=== PATIENT | female | born 1975 | race Caucasian/White ===

== ENCOUNTER 2023-02-13 11:05 | Outpatient (OUT) | payer MEDICAID, SELFPAY ==
--- NOTE | 2023-02-13 12:16 | PM.CN ---
Consult Note: HPI Data of Consult Patient: new to practice Consult date: 02/13/23 Requesting Physician: Najma Richardson MD Primary Care Provider: SHWETA BARNES Consult Narrative Reason for consult: Right knee pain, low back pain Narrative: This is a pleasant 47-year-old female who presents for evaluation. She has increasing pain throughout her right knee, as well as her low back. She is engaged in physical therapy and in provider Aracelis home exercises, though this does not provide much relief of either of these pains. She had an x-ray of her right knee done recently, which showed osteoarthritis, but there is no imaging available of her low back. She currently utilizes tramadol 50 mg twice a day when necessary. Which provided some relief. She was not service medications cilostazol or bladder control. cc:: CC: Najma Richardson MD Review of Systems ROS Status of ROS 10 or more systems reviewed and unremarkable except as noted in history and below Exam Back & Pelvis Other: tenderness to palpation of the lumbar spine and paraspinal muscle trigger. Pain is elicited with flexion, extension, and lateral rotation of lumbar spine. Facet loading maneuvers are positive bilaterally. Coordination remains intact. Gait is nonantalgic. Extremity Other: tenderness to palpation over the right knee. Pain is elicited with flexion and extension. Mild crepitus noted throughout. No ligamentous instability noted. Assessment and Plan Assessment and Plan (1) Osteoarthritis of right knee: (2) Lumbago: Plan this is a pleasant 47-year-old female who presents for evaluation. She notes increasing pain throughout her low back and right knee, as stated above. She had general injections approximately ten years ago, which she states provided significant relief for several years. She had a cortisone injection about six months ago, which provided temporary relief. At this point, it is prudent to attempt a Synvisc-1 injection for further relief. She is in agreement with this plan. In terms of her low back pain, I would like her to undergo an x-ray of the lumbar spine and sacrum. She is understanding. Medications were reviewed. I agreed to refill her tramadol 50 mg twice a day when necessary. We will obtain a urine drug screen today. She expressed understanding. She will follow up after the imaging is complete.
== END 2023-02-13 11:06 | disposition home or self-care (01) ==
LOC: PM 11:06
PROVIDERS: PCP Physician Assistant; Visit Provider Anesthesiology
DX: M54.50 Low back pain, unspecified (principal); M17.11 Unilateral primary osteoarthritis, right knee
CPT/HCPCS: G0463

== ENCOUNTER 2023-02-15 12:53 | Outpatient (OUT) | payer MEDICAID, SELFPAY ==
--- NOTE | 2023-02-15 | XR_ITS ---
The [address] [address] Patient Name: NAYA ARRIAGA MRN: [id number] date: 1975 Sex: F Assigned Patient Location: [facility] Current Patient Location: [facility] Accession/Order Number: [id number] Exam Date: 02/15/2023 13:15 Report Date: 02/15/2023 20:45 At the request of: GT IRELANDEDRAJOSH Procedure: XR sacrum coccyx min 2V EXAMINATION: XR lumbar spine 6V w bending, XR sacrum coccyx min 2V HISTORY: Lumbar spondylosis COMPARISON: No relevant comparison available. FINDINGS: BONES: Normal alignment on the lateral projection with no acute fracture or spondylolisthesis. Mild levocurvature centered at L4. Mild degenerative spondylosis. Bvvg-qg-lscdsodp facet osteoarthropathy DISC SPACES: Normal. No significant disc height narrowing, subluxation, or endplate abnormality. PARASPINOUS: Negative. No paraspinous abnormality is seen. OTHER: Negative. IMPRESSION: Mild levocurvature No transient spondylolisthesis Electronically authenticated by: EM LÓPEZ Date: 02/15/2023 20:45
--- NOTE | 2023-02-15 | XR_ITS ---
The [address] [address] Patient Name: NAYA ARRIAGA MRN: [id number] date: 1975 Sex: F Assigned Patient Location: [facility] Current Patient Location: [facility] Accession/Order Number: [id number] Exam Date: 02/15/2023 13:15 Report Date: 02/15/2023 20:45 At the request of: GT COOPERRAJOSH Procedure: XR lumbar spine 6V w bending EXAMINATION: XR lumbar spine 6V w bending, XR sacrum coccyx min 2V HISTORY: Lumbar spondylosis COMPARISON: No relevant comparison available. FINDINGS: BONES: Normal alignment on the lateral projection with no acute fracture or spondylolisthesis. Mild levocurvature centered at L4. Mild degenerative spondylosis. Iikz-or-syfhxqcw facet osteoarthropathy DISC SPACES: Normal. No significant disc height narrowing, subluxation, or endplate abnormality. PARASPINOUS: Negative. No paraspinous abnormality is seen. OTHER: Negative. IMPRESSION: Mild levocurvature No transient spondylolisthesis Electronically authenticated by: EM LÓPEZ Date: 02/15/2023 20:45
== END 2023-02-15 12:54 | disposition home or self-care (01) ==
LOC: RAD 12:55
PROVIDERS: PCP Physician Assistant
DX: M47.816 Spondylosis without myelopathy or radiculopathy, lumbar region (principal)
CPT/HCPCS: 72114; 72220

== ENCOUNTER 2023-02-27 10:06 | Outpatient (OUT) | payer MEDICAID, SELFPAY ==
--- NOTE | 2023-02-27 11:19 | P.CN_ITS ---
Consult Note: HPI Data of Consult Patient: known to practice within the last 3 years Consult date: 02/27/23 Requesting Physician: Najma Richardson MD Primary Care Provider: SHWETA BARNES Consult Narrative Reason for consult: low back pain, right knee pain Narrative: this is a pleasant 47-year-old female who presents for assessment. She has persistence of her axial low back pain, as well as her right knee pain. She recently underwent lumbar x-rays, which showed moderate facet arthropathy in the lower lumbar spine. She notes that her pain is worsened with standing and walking, and this has been ongoing for greater than three months. She utilizes a variety of medications, including Tylenol and tramadol, with limited relief. she continues in provider directed home exercises, which have not helped. She otherwise denies adverse medication side effects or loss of bowel or bladder control. cc:: CC: Najma Richardson MD Review of Systems ROS Status of ROS 10 or more systems reviewed and unremarkable except as noted in history and below PFSH PFS Medical History Surgical History Meds Home Medications and Allergies Home Medications Medication Instructions Recorded Confirmed Type acetaminophen 650 mg 650 mg PO Q12H PRN pain 02/13/23 02/13/23 History tablet,extended release (Tylenol Arthritis Pain) albuterol sulfate 90 mcg/actuation 1 inh inhalation QID PRN shortness 02/13/23 02/13/23 History aerosol inhaler of breath or wheezing aripiprazole 400 mg suspension, 400 mg IM Q28D 02/13/23 02/13/23 History extended rel.intramuscular syringe ([address]) buspirone 30 mg tablet 30 mg PO BID 02/13/23 02/13/23 History hydroxyzine HCl 25 mg tablet 25 mg PO BID 02/13/23 02/13/23 History lamotrigine 300 mg tablet,extended 300 mg PO DAILY 02/13/23 02/13/23 History release 24 hr lumateperone 10.5 mg capsule 10.5 mg PO DAILY 02/13/23 02/13/23 History (Caplyta) tramadol 50 mg tablet 50 mg PO BID PRN pain 02/13/23 02/13/23 History trazodone 300 mg tablet 300 mg PO DAILY PRN sleep 02/13/23 02/13/23 History venlafaxine 100 mg tablet 300 mg PO DAILY 02/13/23 02/13/23 History zolpidem 5 mg tablet (Ambien) 5 mg PO PRN sleep 02/13/23 History Allergies Allergy/AdvReac Type Severity Reaction Status Date / Time erythromycin base Allergy Unknown Verified 02/13/23 13:52 [From E-Mycin] Penicillins Allergy Unknown Verified 02/13/23 13:52 shellfish derived Allergy Unknown Verified 02/13/23 13:52 Sulfa (Sulfonamide Allergy Unknown Verified 02/13/23 13:52 Antibiotics) Exam Constitutional Common normals: no apparent distress, oriented x3 and healthy appearing Respiratory Common normals: normal respiratory effort Effort & inspection: able to speak in complete sentences Back & Pelvis Other: tenderness to palpation throughout the lumbar spine and paraspinal musculature. Pain is elicited with flexion, extension, and lateral rotation of the lumbar spine. Faceet loading maneuvers are positive bilaterally. Coordination remains intact. Gait remains nonantalgic. Extremity Common normals: normal to inspection Other: tenderness to palpation throughout the right knee. Pain is elicited with flexion and extension of the right knee. Crepitus appreciated throughout the right knee. Neuro Common normals: oriented x3, CN's II-XII intact bilaterally and no focal motor deficits Psych Common normals: mental status grossly normal and cooperative Assessment and Plan Assessment and Plan (1) Osteoarthritis of right knee: (2) Lumbar spondylosis: Plan this is a pleasant 47-year-old female who presents for assessment. She continues to have axial low back pain, as well as right knee pain. In terms of her right knee pain, we will proceed with the Synvisc-1 injection as planned before. She is in agreement with this plan. Her lumbar imaging was reviewed, as noted above. Given her persistent symptomatology, coupled with her failure to respond to conservative measures for greater than a three month period of time, it is prudent to attempt a diagnostic bilateral L4?5, L5-S1 medial branch block fluo roscopically guided with the intention of proceeding to radiofrequency ablation. at this point. Medications were reviewed, and no changes were made at this time. She will be deemed a non-opioid candidate given her unexplained oxymorphone and her urine drug screen. She'll follow up after the procedure is complete. Procedure: Right knee injection Medications: Synvisc-1 I explained the details of the procedure to the patient including the risks, benefits and alternatives. We had an informed discussion and the patient verbalized understanding and signed the consent form. All questions were answered appropriately.? A time out was performed.? After obtaining a comfortable seated position, the right knee was prepped with alcohol x3. A syringe containing the above medication was attached to a 22 guage, 1.5 inch needle under strict aseptic technique. The lateral tibial plateau was palpated.? The needle was then advanced through the subcutaneous tissue in a medial and superior direction towards the joint space.? The contents of the syringe were gently injected without any resistance. The needle was removed and pressure was applied to the injection site to decrease the incidence of ecchymosis and hematoma formation.? A sterile bandage was applied.
== END 2023-02-27 10:07 | disposition home or self-care (01) ==
PROVIDERS: PCP Physician Assistant; Visit Provider Anesthesiology
DX: M17.11 Unilateral primary osteoarthritis, right knee (principal); M47.816 Spondylosis without myelopathy or radiculopathy, lumbar region
CPT/HCPCS: 20610

== ENCOUNTER 2023-04-03 08:06 | Day surgery (SDC) | payer MEDICAID, SELFPAY ==
[2023-04-03 08:26] LABS: HCG Qualitative NEGATIVE (NEGATIVE)
[2023-04-03 08:34] VITALS: BP 120/87; PULSE 87; RESP 16; TEMP 36.3; O2SAT 97
[2023-04-03] MEDS: LIDOCAINE HCL 2% PF 100 MG/5 ML VIAL INJ (09:44)
[2023-04-03] MEDS: TRIAMCINOLONE ACETONIDE 40 MG/ML VIAL INJ (09:44)
[2023-04-03] MEDS: BUPIVACAINE HCL 0.25% PF 25 MG/10 ML VIAL INJ (09:44)
--- NOTE | 2023-04-03 09:48 | W.PM.PROCNOT ---
Date of procedure: 04/03/23 Pre-op diagnosis: Lumbosacral spondylosis Post-op diagnosis: same as pre-op Procedure: Procedure: Bilateral L3, 4, 5 medial branch block Medications: Bupivacaine 0.25% 4cc The patient was seen and examined in the preoperative holding area.? An informed consent was obtained and placed on the chart.? The patient was brought to the medical procedure unit and placed in the prone position.? A timeout was completed verifying correct patient, procedure site, positioning, plan, and special equipment.? Using aseptic technique, the needle was placed at left L3. Under direct fluoroscopic visualization a Quincke-tipped spinal needle was advanced to the junction of the superior articulating process with the transverse process at the designated medial branch segment.? Preceded by negative aspiration, the above-mentioned injectate was placed in 1 mL aliquots.? The procedure was repeated at left L4, 5.? The needle was removed and insertion site was covered. The same procedure, at the same levels, was completed on the right side. The patient was taken to the postprocedural recovery area and monitored for an appropriate length of time before found suitable for discharge in the company of a responsible adult. Anesthesia: None Surgeon: Najma Richardson Pathology: none sent Condition: stable Disposition: no change
[2023-04-03 13:40] VITALS: BP 110/55; BP 128/79; PULSE 82; PULSE 83; RESP 20; O2SAT 86; O2SAT 90
== END 2023-04-03 09:52 | disposition home or self-care (01) ==
PROVIDERS: PCP Physician Assistant; Visit Provider Anesthesiology
DX: M47.817 Spondylosis without myelopathy or radiculopathy, lumbosacral region (principal)
CPT/HCPCS: 36415; 64493; 64494; 84703

== ENCOUNTER 2023-04-12 13:44 | Outpatient (OUT) | payer MEDICAID, SELFPAY ==
--- NOTE | 2023-04-12 13:59 | PM.CN ---
Consult Note: HPI Data of Consult Patient: known to practice within the last 3 years Requesting Physician: Simona Szymanski NP Primary Care Provider: SHWETA BARNES Consult Narrative Reason for consult: bilateral L3/4 L4/5 MBB #1 f/u Narrative: Marilee Uribe is a pleasant 47 year old female who follows for chronic low back pain and right knee pain. Today pain is 5/10. Patient recently underweant bilateral L3/4 L4/5 MBB with 90% pain relief, with increased range of motion, decreased pain with provocative maneuvers, and increased ability to perform ADLs. Patient reports improvement in ability to sit for longer periods of time without pain and able to ambulate further after MBB #1. Patient would like to proceed with bilateral L3/4 L4/5 MBB #2 working towards thermal RFA cc:: CC: Simona Szymanski NP Review of Systems ROS Status of ROS 10 or more systems reviewed and unremarkable except as noted in history and below Musculoskeletal Reports: back pain and joint pain (right knee) PFSH PFSH Medical History Surgical History Meds Home Medications and Allergies Home Medications Medication Instructions Recorded Confirmed Type acetaminophen 650 mg 650 mg PO Q12H PRN pain 02/13/23 04/03/23 History tablet,extended release (Tylenol Arthritis Pain) albuterol sulfate 90 mcg/actuation 1 inh inhalation QID PRN shortness 02/13/23 04/03/23 History aerosol inhaler of breath or wheezing aripiprazole 400 mg suspension, 400 mg IM Q28D 02/13/23 04/03/23 History extended rel.intramuscular syringe ([address]) buspirone 30 mg tablet 30 mg PO BID 02/13/23 04/03/23 History hydroxyzine HCl 25 mg tablet 25 mg PO BID 02/13/23 04/03/23 History lamotrigine 300 mg tablet,extended 300 mg PO DAILY 02/13/23 04/03/23 History release 24 hr lumateperone 10.5 mg capsule 10.5 mg PO DAILY 02/13/23 04/03/23 History (Caplyta) tramadol 50 mg tablet 50 mg PO BID PRN pain 02/13/23 04/03/23 History trazodone 300 mg tablet 300 mg PO DAILY PRN sleep 02/13/23 04/03/23 History venlafaxine 100 mg tablet 300 mg PO DAILY 02/13/23 04/03/23 History zolpidem 5 mg tablet (Ambien) 5 mg PO PRN sleep 02/13/23 History Allergies Allergy/AdvReac Type Severity Reaction Status Date / Time erythromycin base Allergy Unknown Verified 02/13/23 13:52 [From E-Mycin] Penicillins Allergy Unknown Verified 02/13/23 13:52 shellfish derived Allergy Unknown Verified 02/13/23 13:52 Sulfa (Sulfonamide Allergy Unknown Verified 02/13/23 13:52 Antibiotics) Exam Constitutional Documenting provider has reviewed patient's vital signs: yes Common normals: no apparent distress, oriented x3, healthy appearing, alert and well nourished General appearance: cooperative Nutritional appearance: obese HENMT Common normals: normocephalic, hearing grossly normal bilaterally and moist oral mucous membranes Head and scalp: normocephalic Eye Common normals: PERRL Pupil: PERRL Neck & C-Spine Common normals: full ROM General: normal visual inspection Chest Common normals: inspection of chest normal Respiratory Common normals: normal respiratory effort, no retractions and no use of accessory muscles Back & Pelvis Common normals: thoracic and lumbar spine normal to inspection and straight leg raise negative bilaterally Lumbar spine/lower back: ROM limited, pain with ROM, lumbar spinal tenderness and paraspinal muscle tenderness Other: positive bilateral facet loading Neuro Common normals: oriented x3, CN's II-XII intact bilaterally, moves all extremities, no focal motor deficits, no sensory deficits noted and deep tendon reflexes 2+ bilaterally Sensorium/orientation: alert Motor exam: strength 5/5 throughout and no movement abnormalities noted Psych Common normals: mental status grossly normal, thought process normal, cooperative, affect normal, speech normal and activity/motor behavior normal Speech: normal speech Thought process: normal thought process Results Additional Findings Additional findings: I have checked an [place] report on this patient today and there are no aberrancies noted in the prescribing history.?? A drug screen was completed and reviewed within the last year, and if there has not been a drug screen completed we ordered one today to monitor higher risk, state monitored pain medication use. As part of providing excellent, safe, comprehensive care, the following was completed at our patient's visit: 1. A medication reconciliation and review to ensure accurate knowledge of current/active medications, including asking our patients to inform us about any [id number] medications or herbal remedies/nutritional supplements/alternative remedies. 2. A review to specifically ensure our patients have had annual screening for: elevated body mass index (BMI), tobacco use, screening for depression, and screening for unhealthy alcohol use. When screening is concerning, patients are provided with education and the specific recommendation to discuss the concerning health issue and treatment options with their primary care provider. The patient has had over 3 months of moderate to severe low back pain with functional impairment and inadequate response to conservative care including NSAIDS (unless there are contraindication such as concurrent blood thinners), multiple oral or topical pain medications, and home exercise program/physical therapy. DENEEN 44% today with pain with ADLs, pain lifting heavy weights, pain prevents her from walking more than 100 yards, pain prevents her from standing for more than 30 mins, pain restricting social life and travel. Assessment and Plan Assessment and Plan (1) Lumbar spondylosis: Assessment and Plan: continues to have predominately axial low back pain (2) Osteoarthritis of right knee: (3) Muscle spasm: Plan The patient had significant relief of over 90%, with increased range of motion, decreased pain with provocative maneuvers, and increased ability to perform ADLs after diagnostic bilateral L3/4 L4/5 block #1 Proceed with #2 diagnostic block at bilateral L3/4 L4/5 under fluoroscopy working towards thermal RFA
== END 2023-04-12 13:45 | disposition home or self-care (01) ==
PROVIDERS: PCP Physician Assistant; Visit Provider Nurse Practitioner
DX: M47.816 Spondylosis without myelopathy or radiculopathy, lumbar region (principal); M62.838 Other muscle spasm; M17.11 Unilateral primary osteoarthritis, right knee
CPT/HCPCS: G0463

== ENCOUNTER 2023-04-24 17:34 | Emergency (ER) | payer MEDICAID, SELFPAY ==
[2023-04-24 17:36] VITALS: BP 163/98; PULSE 91; RESP 18; TEMP 36.6; O2SAT 96; BMI 58.5
--- NOTE | 2023-04-24 17:43 | PC.NURSE ---
Pt thinks she slept on neck wrong a few days ago. States pain is worse today traveling from left to right side of neck and into left ear now.
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
[2023-04-24] MEDS: KETOROLAC TROMETHAMINE 60 MG/2 ML VIAL IM (18:16)
[2023-04-24] MEDS: PREDNISONE 20 MG TABLET 60 MG PO (18:17)
[2023-04-24] MEDS: ORPHENADRINE 60 MG/ 2 ML VIAL IM (18:17)
== END 2023-04-24 18:28 | disposition home or self-care (01) ==
PROVIDERS: Emergency Provider Emergency Medicine Emergency Medical Services; PCP Physician Assistant
DX: M62.838 Other muscle spasm (principal); M43.6 Torticollis; Z79.899 Other long term (current) drug therapy
CPT/HCPCS: 96372; 99284

== ENCOUNTER 2023-05-01 08:54 | Day surgery (SDC) | payer MEDICAID, SELFPAY ==
[2023-05-01 09:09] VITALS: BP 132/89; PULSE 89; RESP 16; TEMP 36.4; O2SAT 96
[2023-05-01 09:58] VITALS: BP 152/68; PULSE 83; RESP 18; O2SAT 94
[2023-05-01] MEDS: BUPIVACAINE HCL 0.25% PF 25 MG/10 ML VIAL INJ (10:00)
[2023-05-01] MEDS: TRIAMCINOLONE ACETONIDE 40 MG/ML VIAL INJ (10:01)
[2023-05-01] MEDS: LIDOCAINE HCL 2% PF 100 MG/5 ML VIAL INJ (10:01)
--- NOTE | 2023-05-01 10:06 | W.PM.PROCNOT ---
Date of procedure: 05/01/23 Pre-op diagnosis: Lumbar spondylosis Post-op diagnosis: same as pre-op Procedure: Procedure: Bilateral L3-4, L4-5 medial branch block Medications: Bupivacaine 0.25% 4cc The patient was seen and examined in the preoperative holding area.? An informed consent was obtained and placed on the chart.? The patient was brought to the medical procedure unit and placed in the prone position.? A timeout was completed verifying correct patient, procedure site, positioning, plan, and special equipment.? Using aseptic technique, the needle was placed at left L3. Under direct fluoroscopic visualization a Quincke-tipped spinal needle was advanced to the junction of the superior articulating process with the transverse process at the designated medial branch segment.? Preceded by negative aspiration, the above-mentioned injectate was placed in 1 mL aliquots.? The procedure was repeated at left L4, 5.? The needle was removed and insertion site was covered. The same procedure, at the same levels, was completed on the right side. The patient was taken to the postprocedural recovery area and monitored for an appropriate length of time before found suitable for discharge in the company of a responsible adult. Anesthesia: Local Surgeon: Najma Richardson Pathology: none sent Condition: stable Disposition: no change
[2023-05-02 10:57] VITALS: BP 144/65; PULSE 83; RESP 18; O2SAT 91
== END 2023-05-01 10:07 | disposition home or self-care (01) ==
LOC: SURGOUT 08:55
PROVIDERS: PCP Physician Assistant; Visit Provider Anesthesiology
DX: M47.816 Spondylosis without myelopathy or radiculopathy, lumbar region (principal)
CPT/HCPCS: 64493; 64494

== ENCOUNTER 2023-05-11 13:16 | Outpatient (OUT) | payer MEDICAID, SELFPAY ==
--- NOTE | 2023-05-11 10:23 | P.CN_ITS ---
Consult Note: HPI Data of Consult Patient: known to practice within the last 3 years Requesting Physician: Simona Szymanski NP Primary Care Provider: SHWETA BARNES Consult Narrative Reason for consult: MBB #2 f/u Narrative: Marilee Uribe is a pleasant 47 year old female who follows for chronic low back pain and right knee pain. Today pain is 7/10. Patient recently underwent bilateral L3/4 L4/5 MBB #2 with >80% pain relief, with increased range of motion, decreased pain with provocative maneuvers, and increased ability to perform ADLs. Patient reports improvement in ability to sit for longer periods of time without pain and able to ambulate further after MBB #1 and MBB #2. Patient would like to proceed with bilateral L3/4 L4/5 thermal RFA under fluoroscopy. cc:: CC: Simona Szymanski NP Review of Systems ROS0 Status of ROS 10 or more systems reviewed and unremarkable except as noted in history and below Musculoskeletal Reports: back pain PFSH PFSH Medical History Surgical History Meds Home Medications and Allergies Home Medications Medication Instructions Recorded Confirmed Type acetaminophen 650 mg 650 mg PO Q12H PRN pain 02/13/23 05/01/23 History tablet,extended release (Tylenol Arthritis Pain) albuterol sulfate 90 mcg/actuation 1 inh inhalation QID PRN shortness 02/13/23 05/01/23 History aerosol inhaler of breath or wheezing aripiprazole 400 mg suspension, 400 mg IM Q28D 02/13/23 05/01/23 History extended rel.intramuscular syringe ([address]) buspirone 30 mg tablet 30 mg PO BID 02/13/23 05/01/23 History hydroxyzine HCl 25 mg tablet 25 mg PO BID 02/13/23 05/01/23 History lamotrigine 300 mg tablet,extended 300 mg PO DAILY 02/13/23 05/01/23 History release 24 hr lumateperone 10.5 mg capsule 10.5 mg PO DAILY 02/13/23 05/01/23 History (Caplyta) tramadol 50 mg tablet 50 mg PO BID PRN pain 02/13/23 05/01/23 History trazodone 300 mg tablet 300 mg PO DAILY PRN sleep 02/13/23 05/01/23 History venlafaxine 100 mg tablet 300 mg PO DAILY 02/13/23 05/01/23 History zolpidem 5 mg tablet (Ambien) 5 mg PO PRN sleep 02/13/23 History tizanidine 4 mg tablet 4 mg PO BEDTIME 04/18/23 05/01/23 History prednisone 20 mg tablet mg 05/01/23 History Allergies Allergy/AdvReac Type Severity Reaction Status Date / Time erythromycin base Allergy Unknown Verified 05/01/23 09:05 [From E-Mycin] Penicillins Allergy Unknown Verified 05/01/23 09:05 shellfish derived Allergy Unknown Verified 05/01/23 09:05 Sulfa (Sulfonamide Allergy Unknown Verified 05/01/23 09:05 Antibiotics) Exam Constitutional Documenting provider has reviewed patient's vital signs: yes Common normals: no apparent distress, oriented x3, healthy appearing, alert and well nourished General appearance: cooperative Nutritional appearance: obese HENMT Common normals: normocephalic, hearing grossly normal bilaterally and moist oral mucous membranes Head and scalp: normocephalic Eye Common normals: PERRL Pupil: PERRL Neck & C-Spine Common normals: full ROM General: normal visual inspection Chest Common normals: inspection of chest normal Respiratory Common normals: normal respiratory effort, no retractions and no use of accessory muscles Back & Pelvis Common normals: thoracic and lumbar spine normal to inspection and straight leg raise negative bilaterally Lumbar spine/lower back: ROM limited, pain with ROM, lumbar spinal tenderness and paraspinal muscle tenderness Other: positive bilateral facet loading no radiculopathy predominately axial back pain Neuro Common normals: oriented x3, CN's II-XII intact bilaterally, moves all extremities, no focal motor deficits, no sensory deficits noted and deep tendon reflexes 2+ bilaterally Sensorium/orientation: alert Motor exam: strength 5/5 throughout and no movement abnormalities noted Psych Common normals: mental status grossly normal, thought process normal, cooperative, affect normal, speech normal and activity/motor behavior normal Speech: normal speech Thought process: normal thought process Results Additional Findings Additional findings: I have checked an [place] report on this patient today and there are no aberrancies noted in the prescribing history.?? A drug screen was completed and reviewed within the last year, and if there has not been a drug screen completed we ordered one today to monitor higher risk, state monitored pain medication use. As part of providing excellent, safe, comprehensive care, the following was completed at our patient's visit: 1. A medication reconciliation and review to ensure accurate knowledge of current/active medications, including asking our patients to inform us about any [id number] medications or herbal remedies/nutritional supplements/alternative remedies. 2. A review to specifically ensure our patients have had annual screening for: elevated body mass index (BMI), tobacco use, screening for depression, and screening for unhealthy alcohol use. When screening is concerning, patients are provided with education and the specific recommendation to discuss the concerning health issue and treatment options with their primary care provider. Assessment and Plan Assessment and Plan (1) Lumbar spondylosis: Assessment and Plan: The patient has had over 3 months of moderate to severe low back pain with functional impairment and inadequate response to conservative care including NSAIDS (unless there are contraindication such as concurrent blood thinners), multiple oral or topical pain medications, and home exercise program/physical therapy.? Patient has completed >6 weeks of guided home exercise program and/or formal physical therapy program without relief of their symptoms.? I have reviewed the imaging of the lumbar spine and no red flags were identified.? The imaging reveals radiographic findings consistent with lumbar spondylosis The Oswestry Disability Index was completed, and the patient scored a 42%.? The patient noted the following:?? moderate pain, pain that impacts ADLs, pain that prevents her from lifting heavy weights, pain that prevents her from walking more than 100 yhards, pain prevents her from sitting more than 1 hour, pain prevents her from standing more than 1 hour, pain impacts social life and travel We discussed the risks and benefits of the procedure with the patient, and we are NOT planning on using sedation as outlined in the guidelines from Medicare unless there is a documented reason that sedation would be strongly recommended.?? The procedure will be completed with fluoroscopic guidance.? (2) Lumbago: (3) Osteoarthritis of right knee: (4) Muscle spasm: Plan NNCP bilateral L3/4 L4/5 thermal RFA under fluoroscopy with IV sedation per patient request, patient does not feel she could tolerate the procedure without IV sedation offered PO valium as an alternative pt declined f/u 1 month after,
== END 2023-05-11 13:17 | disposition home or self-care (01) ==
LOC: PM 13:16
PROVIDERS: PCP Physician Assistant; Visit Provider Nurse Practitioner
DX: M47.816 Spondylosis without myelopathy or radiculopathy, lumbar region (principal); M54.50 Low back pain, unspecified; M17.11 Unilateral primary osteoarthritis, right knee; M62.838 Other muscle spasm
CPT/HCPCS: G0463

== ENCOUNTER 2023-05-18 11:16 | Outpatient (OUT) | payer MEDICAID, SELFPAY ==
[2023-05-18 12:10] LABS: Creatinine Urine Random 276.75 mg/dL (20.00-300.00); Microalbumin Urine Random <1.3 mg/dL (<=30.0)
[2023-05-18 12:11] LABS: Albumin Level 3.4 g/dL (3.4-5.0); Anion Gap 12.4; BUN Creatinine Ratio 11.8; Calcium 9.2 mg/dL (8.5-10.1); Carbon Dioxide 28.6 mmol/L (21.0-32.0); Chloride 101 mmol/L (98-107); Estimated GFR (African America >60 (>=60); Estimated GFR (Non-African Ame 59 (>=60); Glucose 92 mg/dL (74-106); Phosphorus 3.7 mg/dL (2.6-4.7); Sodium 138 mmol/L (136-145)
[2023-05-19 12:09] LABS: C-Peptide, Serum 3.5 ng/mL (1.1-4.4); Insulin 11.8 uIU/mL (2.6-24.9)
== END 2023-05-18 11:17 | disposition home or self-care (01) ==
LOC: LAB 11:17
PROVIDERS: PCP Physician Assistant; Visit Provider Internal Medicine
DX: E16.2 Hypoglycemia, unspecified (principal); R73.01 Impaired fasting glucose; Z98.84 Bariatric surgery status
CPT/HCPCS: 36415; 80069; 82043; 82306; 82570; 83525; 84681

== ENCOUNTER 2023-06-05 07:40 | Day surgery (SDC) | payer MEDICAID, SELFPAY ==
[2023-06-05 08:02] VITALS: BP 129/93; PULSE 89; RESP 16; TEMP 36.2; O2SAT 96
[2023-06-05] MEDS: 0.9 % SODIUM CHLORIDE 500 ML IV (08:19)
[2023-06-05] MEDS: BUPIVACAINE HCL 0.25% PF 25 MG/10 ML VIAL 4 ML INJ (08:35)
[2023-06-05] MEDS: LIDOCAINE HCL 2% 400 MG/20 ML MDV INJ (08:36)
[2023-06-05] MEDS: TRIAMCINOLONE ACETONIDE 40 MG/ML VIAL 80 MG INJ (08:36)
--- NOTE | 2023-06-05 08:51 | P.ON_ITS ---
Date of procedure: 06/05/23 Pre-op diagnosis: Lumbar spondylosis Post-op diagnosis: same as pre-op Procedure: Procedure: Bilateral L3-4, L4-5 radiofrequency ablation Medications: Bupivacaine 0.25% 6cc, lidocaine 2% 5cc, kenalog 80mg The patient was seen and examined in the preoperative holding area.? The site was marked.? Written informed consent was obtained and placed on the chart.? The patient was brought to the medical procedure unit and placed in the prone position.? A timeout was completed verifying correct patient, procedure, positioning, and special requirements.? The skin overlying the target points, the designated medial branch, were prepped and draped in the usual sterile fashion.? The target point was achieved with a 20-gauge 15 cm with a 10 mm curved active tip radiofrequency cannula under direct fluoroscopic visualization.? The needle was inserted at level L3 on the right side. Needle tip position was confirmed with lateral fluoroscopic position.? Motor stimulation was carried out at 2 Hz up to 5 volts with the absence of extremity activity.? This was repeated at level L4, 5 on right side.?? Sensory stimulation was carried out.? Concordant pain was realized at the above- mentioned sites.? Then radiofrequency lesioning was carried out times 90 seconds at 80 degrees times 2 lesions at each level.? The radiofrequency probe was removed prior to cannula removal.? The above-mentioned injectate was placed in 1 mL increments.? The needle was removed. The same procedure, with the same steps, was then completed on the left side at the same levels. Insertion sites were covered.? The patient was taken to the postoperative recovery area and monitored for an appropriate length of time before being found suitable for discharge in the company of a responsible adult. Anesthesia: Moderate Sedation Surgeon: Najma Richardson Pathology: none sent Condition: stable Disposition: no change
[2023-06-05 08:56] VITALS: BP 128/88; PULSE 80; RESP 16; TEMP 36.2; O2SAT 100
[2023-06-05 08:59] VITALS: BP 124/81; PULSE 78; RESP 16; TEMP 36.2; O2SAT 98
== END 2023-06-05 09:14 | disposition home or self-care (01) ==
PROVIDERS: PCP Physician Assistant; Visit Provider Anesthesiology
PROC: (CPT 1992; principal; 2023-06-05 08:20)
DX: M47.816 Spondylosis without myelopathy or radiculopathy, lumbar region (principal)
CPT/HCPCS: 64635; 64636; J2704

== ENCOUNTER 2023-07-12 09:47 | Outpatient (OUT) | payer MEDICAID, SELFPAY ==
--- NOTE | 2023-07-12 10:07 | PM.CN ---
Consult Note: HPI Data of Consult Patient: known to practice within the last 3 years Requesting Physician: Simona Szymanski NP Primary Care Provider: SHWETA BARNES Consult Narrative Reason for consult: MBB #2 f/u Narrative: Marilee Uribe is a pleasant 47 year old female who follows for chronic low back pain and right knee pain. Patient recently underwent bilateral L3-4 L4-5 thermal RFA with 60-70% pain relief the first week, then she had a fall and has been in pain since. She had previously completed more than 6 weeks of provider guided home exercises without benefit. Pain today 4-510 in low back radiating to left hip and thigh and radiates to left foot. Patients medications through PCP. cc:: CC: Simona Szymanski NP Review of Systems ROS Status of ROS 10 or more systems reviewed and unremarkable except as noted in history and below Musculoskeletal Reports: back pain PFSH PFSH Medical History Surgical History H/O gastric bypass ?Z98.84 - Bariatric surgery status (ICD-10) S/P endometrial ablation ?Z98.890 - Other specified postprocedural states (ICD-10) S/P right knee arthroscopy ?Z98.890 - Other specified postprocedural states (ICD-10) S/P tonsillectomy ?Z90.89 - Acquired absence of other organs (ICD-10) Meds Home Medications and Allergies Home Medications Medication Instructions Recorded Confirmed Type acetaminophen 650 mg 650 mg PO Q12H PRN pain 02/13/23 06/05/23 History tablet,extended release (Tylenol Arthritis Pain) albuterol sulfate 90 mcg/actuation 1 inh inhalation QID PRN shortness 02/13/23 06/05/23 History aerosol inhaler of breath or wheezing aripiprazole 400 mg suspension, 400 mg IM Q28D 02/13/23 06/05/23 History extended rel.intramuscular syringe ([address]) buspirone 30 mg tablet 30 mg PO BID 02/13/23 06/05/23 History hydroxyzine HCl 25 mg tablet 25 mg PO BID 02/13/23 06/05/23 History lamotrigine 300 mg tablet,extended 300 mg PO DAILY 02/13/23 06/05/23 History release 24 hr lumateperone 10.5 mg capsule 10.5 mg PO DAILY 02/13/23 06/05/23 History (Caplyta) tramadol 50 mg tablet 50 mg PO BID PRN pain 02/13/23 06/05/23 History trazodone 300 mg tablet 300 mg PO DAILY PRN sleep 02/13/23 06/05/23 History venlafaxine 100 mg tablet 300 mg PO DAILY 02/13/23 06/05/23 History zolpidem 5 mg tablet (Ambien) 5 mg PO PRN sleep 02/13/23 History tizanidine 4 mg tablet 4 mg PO BEDTIME 04/18/23 06/05/23 History Allergies Allergy/AdvReac Type Severity Reaction Status Date / Time erythromycin base Allergy Unknown Verified 06/05/23 07:58 [From E-Mycin] Penicillins Allergy Unknown Verified 06/05/23 07:58 shellfish derived Allergy Unknown Verified 06/05/23 07:58 Sulfa (Sulfonamide Allergy Unknown Verified 06/05/23 07:58 Antibiotics) Exam Constitutional Documenting provider has reviewed patient's vital signs: yes Common normals: no apparent distress, oriented x3, healthy appearing, alert and well nourished General appearance: cooperative Nutritional appearance: obese HENMT Common normals: normocephalic, hearing grossly normal bilaterally and moist oral mucous membranes Head and scalp: normocephalic Eye Common normals: PERRL Pupil: PERRL Neck & C-Spine Common normals: full ROM General: normal visual inspection Chest Common normals: inspection of chest normal Respiratory Common normals: normal respiratory effort, no retractions and no use of accessory muscles Back & Pelvis Common normals: thoracic and lumbar spine normal to inspection Lumbar spine/lower back: ROM limited, pain with ROM, lumbar spinal tenderness, paraspinal muscle tenderness and straight leg raise positive left Other: positive bilateral facet loading radiculopathy following L3,4,5 pattern intermittent weakness. constant numbness/tingling unable to adequately assess SIJ due to patients size Neuro Common normals: oriented x3, CN's II-XII intact bilaterally, moves all extremities, no focal motor deficits, no sensory deficits noted and deep tendon reflexes 2+ bilaterally Sensorium/orientation: alert Motor exam: strength 5/5 throughout and no movement abnormalities noted Psych Common normals: mental status grossly normal, thought process normal, cooperative, affect normal, speech normal and activity/motor behavior normal Speech: normal speech Thought process: normal thought process Results Additional Findings Additional findings: I have checked an [place] report on this patient today and there are no aberrancies noted in the prescribing history.?? A drug screen was completed and reviewed within the last year, and if there has not been a drug screen completed we ordered one today to monitor higher risk, state monitored pain medication use. As part of providing excellent, safe, comprehensive care, the following was completed at our patient's visit: 1. A medication reconciliation and review to ensure accurate knowledge of current/active medications, including asking our patients to inform us about any [id number] medications or herbal remedies/nutritional supplements/alternative remedies. 2. A review to specifically ensure our patients have had annual screening for: elevated body mass index (BMI), tobacco use, screening for depression, and screening for unhealthy alcohol use. When screening is concerning, patients are provided with education and the specific recommendation to discuss the concerning health issue and treatment options with their primary care provider. Assessment and Plan Assessment and Plan (1) Lumbar radiculopathy: (2) Lumbar spondylosis: Assessment and Plan: The patient has had over 3 months of moderate to severe low back pain with functional impairment and inadequate response to conservative care including NSAIDS (unless there are contraindication such as concurrent blood thinners), multiple oral or topical pain medications, and home exercise program/physical therapy.? Patient has completed >6 weeks of guided home exercise program and/or formal physical therapy program without relief of their symptoms.? I have reviewed the imaging of the lumbar spine and no red flags were identified.? The imaging reveals radiographic findings consistent with lumbar spondylosis The Oswestry Disability Index was completed, and the patient scored a 46%.? The patient noted the following:?? moderate pain, pain that impacts ADLs, pain that prevents her from lifting heavy weights, pain that prevents her from walking more than 100 yhards, pain prevents her from sitting more than 1 hour, pain prevents her from standing more than 1 hour, pain impacts social life and travel (3) Lumbago: (4) Osteoarthritis of right knee: (5) Muscle spasm: Plan MRI of lumbar spine without contrast NNCP continue HEP as tolerated continue medications through PCP, concerned for polypharmacy and risks of adding additional medications
== END 2023-07-12 09:48 | disposition home or self-care (01) ==
LOC: PM 09:50
PROVIDERS: PCP Physician Assistant; Visit Provider Nurse Practitioner
DX: M54.16 Radiculopathy, lumbar region (principal); M47.816 Spondylosis without myelopathy or radiculopathy, lumbar region; M54.50 Low back pain, unspecified; M17.11 Unilateral primary osteoarthritis, right knee; M62.838 Other muscle spasm
CPT/HCPCS: G0463

== ENCOUNTER 2023-08-01 20:56 | Emergency (ER) | payer MEDICAID, SELFPAY ==
[2023-08-01 20:58] VITALS: BP 138/84; PULSE 90; RESP 18; TEMP 36.7; O2SAT 99; BMI 62.4
[2023-08-01 21:27] LABS: Bilirubin Urine NEGATIVE (NEGATIVE); Blood Urine NEGATIVE (NEGATIVE); Clarity Urine CLEAR (CLEAR); Color Urine LT. YELLOW (YELLOW); Glucose Urine UA NEGATIVE (NEGATIVE); HCG Qualitative Urine* NEGATIVE (NEGATIVE); Ketones Urine NEGATIVE (NEGATIVE); Leukocyte Esterase Urine MODERATE (NEGATIVE); Nitrite Urine NEGATIVE (NEGATIVE); Protein Urine NEGATIVE (NEG/TRACE); Specific Gravity Urine 1.025 (1.005-1.025); Urobilinogen Urine 0.2 EU/dL (0.2-1.0); pH Urine 5.5 (5.0-9.0)
--- NOTE | 2023-08-01 21:27 | ED_ITS ---
Documented by User: MICHELLE Phelan 08/01/23 21:32 HPI - Abdominal Pain General Chief Complaint: Abdominal Pain Stated Complaint: NAUSEA Time Seen by Provider: 08/01/23 20:58 Source: patient Mode of arrival: walk-in Limitations: no limitations History of Present Illness HPI narrative: Patient is a 47-year-old female who presents to the emergency department for a 1 week history of nausea, dry heaving and cramping in the abdomen. She denies objective fevers, she has had no diarrhea or urinary symptoms. She reports pain in the low, right-sided abdomen. No flank or back pain. She has had previous bariatric surgery, surgery for pyloric stenosis and an endometrial ablation. No other abdominal surgeries. She is not concerned for . No medications taken prior to arrival although she did take Zofran earlier today with no significant improvement of nausea. She has had no upper respiratory symptoms. Related Data Home Medications Medication Instructions Recorded Confirmed acetaminophen 650 mg 650 mg PO Q12H PRN pain 02/13/23 08/01/23 tablet,extended release (Tylenol Arthritis Pain) aripiprazole 400 mg suspension, 400 mg IM Q28D 02/13/23 08/01/23 extended rel.intramuscular syringe ([address]) buspirone 30 mg tablet 30 mg PO BID 02/13/23 08/01/23 hydroxyzine HCl 25 mg tablet 25 mg PO BID 02/13/23 08/01/23 lamotrigine 300 mg tablet,extended 300 mg PO DAILY 02/13/23 08/01/23 release 24 hr lumateperone 10.5 mg capsule 10.5 mg PO DAILY 02/13/23 08/01/23 (Caplyta) tramadol 50 mg tablet 50 mg PO BID PRN pain 02/13/23 08/01/23 trazodone 300 mg tablet 300 mg PO DAILY PRN sleep 02/13/23 08/01/23 venlafaxine 100 mg tablet 300 mg PO DAILY 02/13/23 08/01/23 zolpidem 5 mg tablet (Ambien) 5 mg PO PRN sleep 02/13/23 tizanidine 4 mg tablet 4 mg PO BEDTIME 04/18/23 08/01/23 acarbose 25 mg tablet mg 08/01/23 cholecalciferol (vitamin D3) 250 08/01/23 mcg (10,000 unit) capsule diclofenac sodium 1 % topical gel topical 08/01/23 hydroxyzine pamoate 25 mg capsule mg 08/01/23 lamotrigine 150 mg tablet mg 08/01/23 Allergies Allergy/AdvReac Type Severity Reaction Status Date / Time erythromycin base Allergy Unknown Verified 08/01/23 21:05 [From E-Mycin] Penicillins Allergy Unknown Verified 08/01/23 21:05 shellfish derived Allergy Unknown Verified 08/01/23 21:05 Sulfa (Sulfonamide Allergy Unknown Verified 08/01/23 21:05 Antibiotics) codeine Allergy Verified 08/01/23 21:05 Review of Systems ROS Constitutional Denies: fever or chills Ears, nose, mouth, and throat Denies: throat pain or nasal congestion Cardiovascular Denies: chest pain Respiratory Denies: shortness of breath Gastrointestinal Reports: abdominal pain, nausea and vomiting; Denies: diarrhea or constipation Genitourinary Denies: painful urination or pelvic pain Musculoskeletal Denies: back pain Integumentary/Breast Denies: rash Neurological Denies: headache Hematologic/Lymphatic Denies: easy bruising PFSH PFSH Medical History Surgical History H/O gastric bypass ?Z98.84 - Bariatric surgery status (ICD-10) S/P endometrial ablation ?Z98.890 - Other specified postprocedural states (ICD-10) S/P right knee arthroscopy ?Z98.890 - Other specified postprocedural states (ICD-10) S/P tonsillectomy ?Z90.89 - Acquired absence of other organs (ICD-10) Social History Smoking status: Never smoker Exam Narrative Exam Narrative: Gen.: Awake, alert, in no distress, morbidly obese female Head: Normocephalic, atraumatic ENT: Moist mucous membranes Respiratory: No respiratory distress, lungs clear bilaterally Cardio: Regular rate and rhythm Gastrointestinal: Abdomen is soft, exam is limited by body habitus. Diffusely tender in the right lower quadrant of the abdomen with no guarding or rebound Extremities: Moves extremities equally Psych: Normal mood and affect Neuro: No focal neuro deficit Skin: Warm, dry, intact Constitutional Vital Signs, click to edit/add: Last Vital Signs Temp 98.1 F 08/01/23 20:58 Pulse 90 08/01/23 20:58 Resp 18 08/01/23 20:58 BP 138/84 08/01/23 20:58 Pulse Ox 99 08/01/23 20:58 O2 Del Method Room Air 08/01/23 20:58 Course Vital Signs Vital signs: Vital Signs Temperature 98.1 F 08/01/23 20:58 Pulse Rate 90 08/01/23 20:58 Respiratory Rate 18 08/01/23 20:58 Blood Pressure 138/84 08/01/23 20:58 Pulse Oximetry 99 08/01/23 20:58 Oxygen Delivery Method Room Air 08/01/23 20:58 Temperature 98.1 F 08/01/23 20:58 Pulse Rate 90 08/01/23 20:58 Respiratory Rate 18 08/01/23 20:58 Blood Pressure 138/84 08/01/23 20:58 Pulse Oximetry 99 08/01/23 20:58 Oxygen Delivery Method Room Air 08/01/23 20:58 MDM - Abdominal Pain MDM Narrative Medical decision making narrative: 2129: Patient ordered to have IV fluids, medications for pain and nausea, lab studies and urine specimen are obtained and the patient is ordered to be sent for a CT of the abdomen and pelvis with IV contrast. Case is turned over to attending physician at this time for disposition pending results. Medical Records Attestation: I reviewed the patient's medical records. Lab Data Attestation: I reviewed the patient's lab results. Labs: Lab Results 08/01/23 08/01/23 Range/Units 21:15 21:30 WBC 12.0 H (4.0-11.0) 10^3/uL RBC 4.57 (4.20-5.40) 10^6/uL Hgb 13.9 (12.0-16.0) g/dL Hct 43.0 (36.0-48.0) % MCV 94.1 (81.0-99.0) fL MCH 30.4 (26.7-34.0) pg MCHC 32.3 (29.9-35.2) g/dL RDW 12.1 (11.0-15.0) % Plt Count 433 (150-450) 10^3/uL MPV 8.3 L (9.5-13.5) fL Neut % (Auto) 61.7 (43.0-75.0) % Lymph % (Auto) 28.6 (20.5-60.0) % [place] % (Auto) 7.5 (1.7-12.0) % Eos % (Auto) 1.7 (0.9-7.0) % Baso % (Auto) 0.2 (0.2-2.0) % Neut # (Auto) 7.4 H (1.4-6.5) 10^3/uL Lymph # (Auto) 3.4 (1.2-3.8) 10^3/uL [place] # (Auto) 0.9 H (0.3-0.8) 10^3/uL Eos # (Auto) 0.2 (0.0-0.7) 10^3/uL Baso # (Auto) 0.0 (0.0-0.1) 10^3/uL Abs Immat Gran (auto) 0.04 H (0.00-0.03) 10^3/uL Imm/Tot Granulo (auto) 0.3 (0.0-0.5) % Sodium 136 (136-145) mmol/L Potassium 4.2 (3.5-5.1) mmol/L Chloride 102 (98-107) mmol/L Carbon Dioxide 28.1 (21.0-32.0) mmol/L Anion Gap 10.1 BUN 8.0 (7.0-18.0) mg/dL Creatinine 0.91 (0.55-1.02) mg/dL Est GFR ( Amer) >60 (>=60) Est GFR (Non-Af Amer) >60 (>=60) BUN/Creatinine Ratio 8.8 Glucose 97 (74-106) mg/dL Lactate 1.3 (0.4-2.0) mmol/L Calcium 9.2 (8.5-10.1) mg/dL Total Bilirubin 0.4 (0.2-1.0) mg/dL AST 29 (15-37) U/L ALT 28 (14-59) U/L Alkaline Phosphatase 75 (46-116) U/L Total Protein 7.4 (6.4-8.2) g/dL Albumin 3.2 L (3.4-5.0) g/dL Globulin 4.2 g/dL Albumin/Globulin Ratio 0.8 Lipase 37.0 (16.0-77.0) U/L Urine Color Lt. yellow (YELLOW) Urine Clarity Clear (CLEAR) Urine pH 5.5 (5.0-9.0) Ur Specific [place] 1.025 (1.005-1.025) Urine Protein Negative (NEG/TRACE) mg/dL Urine Glucose (UA) Negative (NEGATIVE) mg/dL Urine Ketones Negative (NEGATIVE) mg/dL Urine Occult Blood Negative (NEGATIVE) Urine Nitrite Negative (NEGATIVE) Urine Bilirubin Negative (NEGATIVE) Urine Urobilinogen 0.2 (0.2-1.0) EU/dL Ur Leukocyte Esterase Moderate A (NEGATIVE) Urine RBC 2-5 A (0-2) #/HPF Urine WBC 2-5 A (NONE SEEN) #/HPF Ur Squamous Epith Cells Few A (NONE/RARE) #/LPF Urine Crystals None seen (None Seen) #/HPF Urine Bacteria Large A (NONE SEEN) #/HPF Urine Casts None seen (NONE SEEN) #/LPF Urine Mucus None seen (NONE SEEN) Urine Trichomonas Seen A (NONE SEEN) Ur Culture Indicated? Yes Urine HCG, Qual Negative (NEGATIVE) Discharge Plan Discharge Chief Complaint: Abdominal Pain Clinical Impression: Abdominal pain, UTI (urinary tract infection) Patient Disposition: Home, Self-Care Prescriptions / Home Meds: No Action lamotrigine 150 mg tablet acarbose 25 mg tablet hydroxyzine pamoate 25 mg capsule cholecalciferol (vitamin D3) 250 mcg (10,000 unit) capsule diclofenac sodium 1 % gel TOPICAL hydroxyzine HCl 25 mg tablet 25 mg PO BID Caplyta 10.5 mg capsule 10.5 mg PO DAILY buspirone 30 mg tablet 30 mg PO BID lamotrigine 300 mg tablet extended release 24hr 300 mg PO DAILY trazodone 300 mg tablet 300 mg PO DAILY PRN (Reason: sleep) venlafaxine 100 mg tablet 300 mg PO DAILY tramadol 50 mg tablet 50 mg PO BID PRN (Reason: pain) zolpidem [Ambien] 5 mg tablet 5 mg PO PRN (Reason: sleep) acetaminophen [Tylenol Arthritis Pain] 650 mg tablet extended release 650 mg PO Q12H PRN (Reason: pain) Abilify Maintena 400 mg suspension,extended rel syring 400 mg IM Q28D tizanidine 4 mg tablet 4 mg PO BEDTIME Instructions: Urinary Tract Infection in Women (DC), Abdominal Pain (ED) Additional Instructions: follow up with family doctor in 2-3 days for recheck Stand Alone Forms: Portal Instructions Referrals: SHWETA BARNES [Primary Care Provider] - 1 week Documented by User: Madi Mcgee MD 08/02/23 00:30 HPI - Abdominal Pain General Chief Complaint: Abdominal Pain Stated Complaint: NAUSEA Time Seen by Provider: 08/01/23 20:58 Related Data Home Medications Medication Instructions Recorded Confirmed acetaminophen 650 mg 650 mg PO Q12H PRN pain 02/13/23 08/01/23 tablet,extended release (Tylenol Arthritis Pain) aripiprazole 400 mg suspension, 400 mg IM Q28D 02/13/23 08/01/23 extended rel.intramuscular syringe (Abilify Maintena) buspirone 30 mg tablet 30 mg PO BID 02/13/23 08/01/23 hydroxyzine HCl 25 mg tablet 25 mg PO BID 02/13/23 08/01/23 lamotrigine 300 mg tablet,extended 300 mg PO DAILY 02/13/23 08/01/23 release 24 hr lumateperone 10.5 mg capsule 10.5 mg PO DAILY 02/13/23 08/01/23 (Caplyta) tramadol 50 mg tablet 50 mg PO BID PRN pain 02/13/23 08/01/23 trazodone 300 mg tablet 300 mg PO DAILY PRN sleep 02/13/23 08/01/23 venlafaxine 100 mg tablet 300 mg PO DAILY 02/13/23 08/01/23 zolpidem 5 mg tablet (Ambien) 5 mg PO PRN sleep 02/13/23 tizanidine 4 mg tablet 4 mg PO BEDTIME 04/18/23 08/01/23 acarbose 25 mg tablet mg 08/01/23 cholecalciferol (vitamin D3) 250 08/01/23 mcg (10,000 unit) capsule diclofenac sodium 1 % topical gel topical 08/01/23 hydroxyzine pamoate 25 mg capsule mg 08/01/23 lamotrigine 150 mg tablet mg 08/01/23 Allergies Allergy/AdvReac Type Severity Reaction Status Date / Time erythromycin base Allergy Unknown Verified 08/01/23 21:05 [From E-Mycin] Penicillins Allergy Unknown Verified 08/01/23 21:05 shellfish derived Allergy Unknown Verified 08/01/23 21:05 Sulfa (Sulfonamide Allergy Unknown Verified 08/01/23 21:05 Antibiotics) codeine Allergy Verified 08/01/23 21:05 [facility] Medical History Surgical History H/O gastric bypass ?Z98.84 - Bariatric surgery status (ICD-10) S/P endometrial ablation ?Z98.890 - Other specified postprocedural states (ICD-10) S/P right knee arthroscopy ?Z98.890 - Other specified postprocedural states (ICD-10) S/P tonsillectomy ?Z90.89 - Acquired absence of other organs (ICD-10) Social History Smoking status: Never smoker Exam Constitutional Vital Signs, click to edit/add: Last Vital Signs Temp 98.1 F 08/01/23 20:58 Pulse 90 08/01/23 20:58 Resp 18 08/01/23 20:58 BP 138/84 08/01/23 20:58 Pulse Ox 99 08/01/23 20:58 O2 Del Method Room Air 08/01/23 20:58 Course Vital Signs Vital signs: Vital Signs Temperature 98.1 F 08/01/23 20:58 Pulse Rate 90 08/01/23 20:58 Respiratory Rate 18 08/01/23 20:58 Blood Pressure 138/84 08/01/23 20:58 Pulse Oximetry 99 08/01/23 20:58 Oxygen Delivery Method Room Air 08/01/23 20:58 Temperature 98.1 F 08/01/23 20:58 Pulse Rate 90 08/01/23 20:58 Respiratory Rate 18 08/01/23 20:58 Blood Pressure 138/84 08/01/23 20:58 Pulse Oximetry 99 08/01/23 20:58 Oxygen Delivery Method Room Air 08/01/23 20:58 MDM - Abdominal Pain MDM Narrative Medical decision making narrative: 2129: Patient ordered to have IV fluids, medications for pain and nausea, lab studies and urine specimen are obtained and the patient is ordered to be sent for a CT of the abdomen and pelvis with IV contrast. Case is turned over to attending physician at this time for disposition pending results. CT return with mild edema LLQ. Patient re interviewed and complains of pain of her lower quad and suprapubic area but more uncomfortable on the RLQ. mild tenderness at both. no guarding. UA with mod. leukocytes and urine cx ordered. Patient advised of the working diagnosis of UTI and prescribed macrobid. Advised close follow up Lab Data Labs: Lab Results 08/01/23 08/01/23 Range/Units 21:15 21:30 WBC 12.0 H (4.0-11.0) 10^3/uL RBC 4.57 (4.20-5.40) 10^6/uL Hgb 13.9 (12.0-16.0) g/dL Hct 43.0 (36.0-48.0) % MCV 94.1 (81.0-99.0) fL MCH 30.4 (26.7-34.0) pg MCHC 32.3 (29.9-35.2) g/dL RDW 12.1 (11.0-15.0) % Plt Count 433 (150-450) 10^3/uL MPV 8.3 L (9.5-13.5) fL Neut % (Auto) 61.7 (43.0-75.0) % Lymph % (Auto) 28.6 (20.5-60.0) % [place] % (Auto) 7.5 (1.7-12.0) % Eos % (Auto) 1.7 (0.9-7.0) % Baso % (Auto) 0.2 (0.2-2.0) % Neut # (Auto) 7.4 H (1.4-6.5) 10^3/uL Lymph # (Auto) 3.4 (1.2-3.8) 10^3/uL [place] # (Auto) 0.9 H (0.3-0.8) 10^3/uL Eos # (Auto) 0.2 (0.0-0.7) 10^3/uL Baso # (Auto) 0.0 (0.0-0.1) 10^3/uL Abs Immat Gran (auto) 0.04 H (0.00-0.03) 10^3/uL Imm/Tot Granulo (auto) 0.3 (0.0-0.5) % Sodium 136 (136-145) mmol/L Potassium 4.2 (3.5-5.1) mmol/L Chloride 102 (98-107) mmol/L Carbon Dioxide 28.1 (21.0-32.0) mmol/L Anion Gap 10.1 BUN 8.0 (7.0-18.0) mg/dL Creatinine 0.91 (0.55-1.02) mg/dL Est GFR ( Amer) >60 (>=60) Est GFR (Non-Af Amer) >60 (>=60) BUN/Creatinine Ratio 8.8 Glucose 97 (74-106) mg/dL Lactate 1.3 (0.4-2.0) mmol/L Calcium 9.2 (8.5-10.1) mg/dL Total Bilirubin 0.4 (0.2-1.0) mg/dL AST 29 (15-37) U/L ALT 28 (14-59) U/L Alkaline Phosphatase 75 (46-116) U/L Total Protein 7.4 (6.4-8.2) g/dL Albumin 3.2 L (3.4-5.0) g/dL Globulin 4.2 g/dL Albumin/Globulin Ratio 0.8 Lipase 37.0 (16.0-77.0) U/L Urine Color Lt. yellow (YELLOW) Urine Clarity Clear (CLEAR) Urine pH 5.5 (5.0-9.0) Ur Specific [place] 1.025 (1.005-1.025) Urine Protein Negative (NEG/TRACE) mg/dL Urine Glucose (UA) Negative (NEGATIVE) mg/dL Urine Ketones Negative (NEGATIVE) mg/dL Urine Occult Blood Negative (NEGATIVE) Urine Nitrite Negative (NEGATIVE) Urine Bilirubin Negative (NEGATIVE) Urine Urobilinogen 0.2 (0.2-1.0) EU/dL Ur Leukocyte Esterase Moderate A (NEGATIVE) Urine RBC 2-5 A (0-2) #/HPF Urine WBC 2-5 A (NONE SEEN) #/HPF Ur Squamous Epith Cells Few A (NONE/RARE) #/LPF Urine Crystals None seen (None Seen) #/HPF Urine Bacteria Large A (NONE SEEN) #/HPF Urine Casts None seen (NONE SEEN) #/LPF Urine Mucus None seen (NONE SEEN) Urine Trichomonas Seen A (NONE SEEN) Ur Culture Indicated? Yes Urine HCG, Qual Negative (NEGATIVE) Imaging Data CT scan - abdomen: Radiologist's impression: [place] [address] CT Scan Report Signed Patient: NAYA ARRIAGA MR#: [id number] : 1975 Acct:[id number] Age/Sex: 47 / F ADM Date: 08/01/23 Loc: ER Attending Dr: Ordering Physician: Josy Nunez Date of Service: 08/01/23 Procedure(s): CT abdomen pelvis w con Accession Number(s): [id number] cc: SHWETA BARNES [facility] [place] [id number] Patient Name: NAYA ARRIAGA MRN: [id number] date: 1975 Sex: F Assigned Patient Location: ER Current Patient Location: ER Accession/Order Number: [id number] Exam Date: 08/01/2023 22:09 Report Date: 08/01/2023 23:26 At the request of: JOSY NUNEZ Procedure: CT abdomen pelvis w con EXAM: CT SCAN ABDOMEN AND PELVIS WITH IV CONTRAST DATE: 08/01/2023 10:09 PM EST HISTORY: Abdominal pain, right sided 47-year-old female COMPARISON: None. TECHNIQUE: CT examination of the abdomen and pelvis was performed following the intravenous administration of IV contrast. CT dose lowering techniques were used, to include: automated exposure control, adjustment for patient size, and/or use of iterative reconstruction. Contrast: 100 ml Omnipaque 300 FINDINGS: Engraver Pantograph/ Lines and Tubes: Unremarkable Engraver Pantograph for acute pathology. Lower Chest: Normal Free Air: None. Liver: Normal Gallbladder: Normal Common Bile Duct: Normal Pancreas: Normal Spleen: Normal Adrenal Glands: Right: Normal Left: Normal Kidneys: Right Kidney: Normal. Right Ureter: Normal. Left Kidney: Normal. Left Ureter: Normal. GI Tract: Distal esophagus in FOV: Normal. Stomach: Post op changes of the stomach demonstrated. Small Bowel: Small bowel measures within normal limits with a focal segment demonstrating anastomosis that demonstrates some mild prominence without definite obstruction. Appendix: Normal on axial image [id number] Large Bowel: Normal Mesentery/Peritoneum: Normal Vasculature: Aorta: Normal. IVC: Normal. Michael Vein: Normal. Retroperitoneum: Normal Abdominal/Pelvic Wall: Mild edema seen within the left lateral pelvic/abdominal wall Bladder: Decompressed Reproductive: Normal Musculoskeletal: Normal Free Fluid: None. CT/CT abdomen pelvis w con IMPRESSION: No CT evidence for acute pathology within the abdomen or pelvis. Electronically authenticated by: RENEA MCDANIELS Date: 08/01/2023 23:26 Dictated By: Renea Mcdaniesl M.D. Signed By: 08/01/232327 DD/ 25 TD/TT: Discharge Plan Discharge Chief Complaint: Abdominal Pain Clinical Impression: Abdominal pain, UTI (urinary tract infection) Patient Disposition: Home, Self-Care Prescriptions / Home Meds: No Action lamotrigine 150 mg tablet acarbose 25 mg tablet hydroxyzine pamoate 25 mg capsule cholecalciferol (vitamin D3) 250 mcg (10,000 unit) capsule diclofenac sodium 1 % gel TOPICAL hydroxyzine HCl 25 mg tablet 25 mg PO BID Caplyta 10.5 mg capsule 10.5 mg PO DAILY buspirone 30 mg tablet 30 mg PO BID lamotrigine 300 mg tablet extended release 24hr 300 mg PO DAILY trazodone 300 mg tablet 300 mg PO DAILY PRN (Reason: sleep) venlafaxine 100 mg tablet 300 mg PO DAILY tramadol 50 mg tablet 50 mg PO BID PRN (Reason: pain) zolpidem [Ambien] 5 mg tablet 5 mg PO PRN (Reason: sleep) acetaminophen [Tylenol Arthritis Pain] 650 mg tablet extended release 650 mg PO Q12H PRN (Reason: pain) Abilify Maintena 400 mg suspension,extended rel syring 400 mg IM Q28D tizanidine 4 mg tablet 4 mg PO BEDTIME Instructions: Urinary Tract Infection in Women (DC), Abdominal Pain (ED) Additional Instructions: follow up with family doctor in 2-3 days for recheck Stand Alone Forms: Portal Instructions Referrals: SHWETA BARNES [Primary Care Provider] - 1 week
[2023-08-01 21:28] LABS: Urine Microscopic Indicated YES
[2023-08-01 21:33] LABS: Bacteria Urine LARGE #/HPF (NONE SEEN); Cast Seen? NONE SEEN #/LPF (NONE SEEN); Crystals Seen? None Seen #/HPF (None Seen); Mucus Urine NONE SEEN (NONE SEEN); Squamous Epithelial Cell Urine FEW #/LPF (NONE/RARE)
[2023-08-01 21:34] LABS: Trichomonas Urine SEEN (NONE SEEN); Urine Culture Indicated YES
[2023-08-01 21:43] LABS: Basophils Percent Auto 0.2 % (0.2-2.0); Eosinophils Absolute Auto 0.2 10^3/uL (0.0-0.7); Eosinophils Percent Auto 1.7 % (0.9-7.0); Hemoglobin 13.9 g/dL (12.0-16.0); Immature Granulocytes Abs Auto 0.04 10^3/uL (0.00-0.03); Immature Granulocytes Pct Auto 0.3 % (0.0-0.5); Lymphocytes Absolute Auto 3.4 10^3/uL (1.2-3.8); Lymphocytes Percent Auto 28.6 % (20.5-60.0); Mean Corpuscular HGB Conc 32.3 g/dL (29.9-35.2); Mean Corpuscular Hemoglobin 30.4 pg (26.7-34.0); Mean Corpuscular Volume 94.1 fL (81.0-99.0); Mean Platelet Volume 8.3 fL (9.5-13.5); Monocytes Absolute Auto 0.9 10^3/uL (0.3-0.8); Monocytes Percent Auto 7.5 % (1.7-12.0); Neutrophils Absolute Auto 7.4 10^3/uL (1.4-6.5); Neutrophils Percent Auto 61.7 % (43.0-75.0); Platelet Count 433 10^3/uL (150-450); Red Blood Count 4.57 10^6/uL (4.20-5.40); Red Cell Distribution Width 12.1 % (11.0-15.0)
[2023-08-01] MEDS: 0.9 % SODIUM CHLORIDE 1,000 ML 999 ML IV (21:49)
[2023-08-01] MEDS: ONDANSETRON PF 4 MG/2 ML VIAL IV (21:51)
[2023-08-01] MEDS: HYOSCYAMINE SULFATE 0.125 MG TAB.SUBL SL (21:51)
[2023-08-01] MEDS: MORPHINE SULFATE 4 MG/ML VIAL IV (21:51)
[2023-08-01 22:00] LABS: Lactate/Lactic Acid 1.3 mmol/L (0.4-2.0)
[2023-08-01 22:06] LABS: Alanine Aminotransferase 28 U/L (14-59); Albumin Globulin Ratio 0.8; Albumin Level 3.2 g/dL (3.4-5.0); Alkaline Phosphatase 75 U/L (46-116); Anion Gap 10.1; Aspartate Amino Transferase 29 U/L (15-37); BUN Creatinine Ratio 8.8; Bilirubin Total 0.4 mg/dL (0.2-1.0); Calcium 9.2 mg/dL (8.5-10.1); Carbon Dioxide 28.1 mmol/L (21.0-32.0); Chloride 102 mmol/L (98-107); Estimated GFR (African America >60 (>=60); Estimated GFR (Non-African Ame >60 (>=60); Globulin 4.2 g/dL; Glucose 97 mg/dL (74-106); Potassium 4.2 mmol/L (3.5-5.1); Sodium 136 mmol/L (136-145); Total Protein 7.4 g/dL (6.4-8.2)
[2023-08-02] MEDS: NITROFURANTOIN MONOHYD/MAC-CRST 100 MG CAPSULE PO (00:45)
== END 2023-08-02 00:54 | disposition home or self-care (01) ==
PROVIDERS: Physician Assistant; Emergency Provider Internal Medicine; PCP Physician Assistant
DX: R10.31 Right lower quadrant pain (principal); N39.0 Urinary tract infection, site not specified; E66.01 Morbid (severe) obesity due to excess calories; Z98.84 Bariatric surgery status; Z68.44 Body mass index [BMI] 60.0-69.9, adult
CPT/HCPCS: 36415; 74177; 80053; 81001; 83605; 83690; 84703; 85025; 87086; 96374; 96375; 99284; Q9967

== ENCOUNTER 2023-10-23 08:58 | Day surgery (SDC) | payer MEDICAID, SELFPAY ==
--- OUTSIDE RECORDS SUMMARY | 2023-10-23 09:00 | XMS_ITS | CCD ---
Author Name Unknown Address [address] [place] [address] Organization [facility] Care Team Providers Care Dust Mixer Name Role Phone FRANCOISE BARNES Unavailable Unavailable ESPERANZADANUTA Unavailable Unavailable Gus, Ida Evans Attending Unavailable Gus, Ida Evans Attending Unavailable Gus, Ida Evans Attending Unavailable FRANCOISE BARNES Referring Unavailable FRANCOISE BARNES Admitting Unavailable FRANCOISE BARNES Primary Care Unavailable FRANCOISE BARNES Attending Unavailable Tyler Petersen Attending Unavailable FRANCOISE BARNES Primary Care Unavailable TRENT ., SUNSHINE Admitting Unavailable TRENT ., SUNSHINE Attending Unavailable MISC, DR SLOAN Primary Care Unavailable VESTA, DR EM Snyder Consulting Unavailable TRENT ., SUNSHINE Consulting Unavailable GRANT NAYAK Consulting Unavailable HEMKAM, DR FRANCOISE Del Castillo Admitting Unavailable HEMMER, DR FRANCOISE Del Castillo Attending Unavailable MISC, DR SLOAN Primary Care Unavailable HEMMER, DR FRANCOISE Del Castillo Consulting Unavailable HEMMER, DR FRANCOISE Del Castillo Admitting Unavailable HEMMER, DR FRANCOISE Del Castillo Attending Unavailable Debra SIERRA, Najma Jay Attending Unavailable Debra SIERRA, Najma Jay Attending Unavailable Debra SIERRA, Andrius Pierre Attending Unavailable Debra SIERRA, Andrius Pierre Attending Unavailable Debra SIERRA, Najma Jay Attending Unavailable FRANCOISE BARNES Attending Unavailable FRANCOISE BARNES Attending Unavailable NON STAFF Primary Care Provider UnavailMD Jamey Kapoor Attending Provider MAHIN Szymanski Attending Provider Simona Szymanski Admitting Unavailable Simona Szymanski Attending Unavailable NON STAFF Primary Care Unavailable Jamey Morgan Admitting Unavailab Jamey Sanchez Attending Unavailab le NON STAFF Primary Care Unavailable Shalini Coffey MD Primary Care Provider [phone] Allergies Allergy Classification Reported Allergen(s) Allergy Type Date of Onset Reaction(s) Facility (1 source) Cephalexin; Translations: [Keflex] Drug Allergy [facility] Repository (5 sources) Clindamycin; Translations: [clindamycin] Drug Allergy 7 Rash [facility] Repository (6 sources) Codeine; Translations: [codeine] Drug Allergy 7 [facility] Repository (1 source) NSAIDs; Translations: [NSAIDs] Propensity to adverse reactions (disorder) [facility] Repository (4 sources) Penicillins; Translations: [penicillins] Propensity to adverse reactions (disorder) 7 [facility] Repository (1 source) Sulfonamides (Antibiotic); Translations: [sulfa drugs] Propensity to adverse reactions (disorder) [facility] Repository (1 source) alot of ATB's, I dont know names; Translations: [alot of ATB's, I dont know names] Propensity to adverse reactions (disorder) [facility] Repository (1 source) Penicillin Drug Allergy [facility] Repository (1 source) Sulfonamides (Antibiotic) Drug allergy (disorder) [facility] Rep[facility] (3 sources) Sulfonamides (Antibiotic); Translations: [Sulfa (Sulfonamide Antibiotics)] Allergy to substance 7 [facility] (3 sources) erythromycin base; Translations: [erythromycin base] Allergy to substance 7 [facility] (1 source) Bacitracin / Polymyxin B Drug Allergy 3 [facility] Work Phone: (1 source) Ciprofloxacin Drug Allergy 3 Rash [facility] (1 source) Erythromycin Drug Allergy 5 Hives [facility] (1 source) Penicillin G Drug Allergy 3 [facility] (1 source) Sulfonamides (Antibiotic) Drug Allergy 5 Hives [facility] (1 source) Soap Allergy to substance [address] [facility] Healthcare Medications Current Medications Medication Drug Class(es) Dates Sig (Normalized) Sig (Original) acarbose 25 mg oral tablet (1 source) alpha-Glucosidase Inhibitor Start: 04-25-2023 acarbose (Precose) 25 MG tablet Take 1 tablet by mouth in the morning and 1 tablet at noon and 1 tablet in the evening. Take with meals. 0 04/25/2023 Active [id number] 200 actuat albuterol 0.09 mg/actuat metered dose inhaler (1 source) beta2-Adrenergic Agonist take 1 puff(s) by inhalation every four hours for wheezing albuterol HFA 90 mcg/act inhaler Inhale 1 puff every 4 (four) hours if needed for wheezing or shortness of breath. 0 Active ARIPiprazole 400 mg extended release prefilled syringe (3 sources) Atypical Antipsychotic Start: 05-08-2018 inject 400 mg by intramuscular injection every month Aripiprazole (Abiliffabián Maintena) 400 mg Suspension,Extend ed Rel Syring Active 400 MG IM every month May 07, 2018 11:00pm busPIRone hydrochloride 30 mg oral tablet (3 sources) Start: 05-16-2017 take 30 mg by mouth twice daily Buspirone Active 30 MG PO Twice daily May 15, 2017 11:00pm take 1 tablet by ayla th every twelve hours busPIRone (Buspar) 30 MG tablet Take 30 mg by mouth every 12 (twelve) hours. 0 Active cholecalciferol 0.25 mg oral capsule (1 source) Vitamin D Start: 02-06-2023 take 1 capsule by mouth once daily cholecalciferol (Vitamin D-3) 250 MCG (01208 UT) capsule Indications: Vitamin D deficiency Take 1 capsule (250 mcg) by mouth 1 (one) time each day at the same time. 90 capsule 3 02/06/2023 Active Continuous Blood Gluc Beauty Therapist (FreeStyle Samreen 2 Sc[place]) device (1 source) Start: 02-23-2023 Continuous Blood Gluc Beauty Therapist (FreeStyle Samreen 2 [place]iota) device USE DIRECTED 0 02/23/2023 Active Continuous Blood Gluc Sensor (FreeStyle Samreen 2 Sensor) misc (1 source) Start: 04-22-2023 Continuous Blood Gluc Sensor (FreeStyle Samreen 2 Sensor) misc Use as directed 0 04/22/2023 Active diclofenac sodium 0.01 mg/mg topical gel (1 source) Nonsteroidal Anti-inflammatory Drug Start: 04-26-2023 diclofenac sodium (Voltaren) 1 % gel Indications: Chronic pain of both knees Apply 2 g topically in the morning and 2 g in the evening and 2 g before bedtime. 150 g 3 04/26/2023 Active FLUoxetine 20 mg oral capsule (2 sources) Serotonin Reuptake Inhibitor Start: 05-08-2018 Fluoxetine (Prozac) 20 mg Capsule Active 30 MG PO Daily May 07, 2018 11:00pm hydrOXYzine pamoate 25 mg oral capsule (1 source) Antihistamine Start: 07-17-2023 take 1 capsule by mouth twice daily as needed for anxiety hydrOXYzine pamoate (Vistaril) 25 MG capsule TAKE 1 CAPSULE BY MOUTH TWICE A DAY NEEDED FOR ANXIETY 0 07/17/2023 Active lamoTRIgine 150 mg oral tablet (1 source) Mood Stabilizer, Anti-epileptic Agent take 3 tablets by mouth once daily lamoTRIgine (LaMICtal) 150 MG tablet Take 3 tablets by mouth 1 (one) time each day at the same time. 0 Active lumateperone 42 mg oral capsule (1 source) Start: 04-04-2023 take 1 capsule by mouth in the morning Caplyta 42 MG capsule Take 1 capsule by mouth in the morning. 0 04/04/2023 Active Multivit With Min-Folic Acid (Centrum Multigummies) 80 mcg Tablet,Chewable (2 sources) Start: 08-15-2017 take 2 tablets by mouth once daily Multivit With Min-Folic Acid (Centrum Multigummies) 80 mcg Tablet,Chewable Active 2 TAB PO Daily August 15, 2017 12:00am Start: 08-15-2017 take 2 tablets by mo [facility] once daily Multivit With Min-Folic Acid (Centrum Multigummies) 80 mcg Tablet,Chewable Active 2 TAB PO Daily August 15, 2017 1:00am nitrofurantoin, macrocrystals 25 mg / nitrofurantoin, monohydrate 75 mg oral capsule (1 source) Nitrofuran Antibacterial Start: 08-02-2023 take 1 capsule by mouth in the morning nitrofurantoin, macrocrystal-monohydrate, (Macrobid) 100 MG capsule Take 100 mg by mouth in the morning and 100 mg before bedtime. 0 08/02/2023 Active nystatin 100 unt/mg topical powder (1 source) Polyene Antifungal nystatin (Mycostatin ) [id number] UNIT/GM powder Apply 1 application topically in the morning. PRN. 0 Active omeprazole 20 mg delayed release oral tablet (2 sources) Proton Pump Inhibitor Start: 05-16-2017 Omeprazole Magnesium (Prilosec Otc) 20 mg Tablet,Delayed Release (Dr/Ec) Active 40 MG PO Twice daily May 15, 2017 11:00pm ondansetron 4 mg disintegrating oral tablet (5 sources) Serotonin-3 Receptor Antagonist Start: 05-08-2018 take 1 tablet by mouth three times daily Ondansetron (Zofran Odt) 4 mg Tablet,Disintegrating Active 4 MG PO Three times daily May 07, 2018 11:00pm Start: 05-16-2017 End: 05-08-2018 take 8 mg by mouth every twelve hours Ondansetron Hcl (Zofran (As Hydrochloride)) 4 mg/5 mL Solution Discontinued 8 MG PO Q12H May 15, 2017 11:00pm May 08, 2018 2:03pm take 1 tablet by ayla th every eight hours as needed for nausea and vomiting ondansetron ODT (Zofran-ODT) 4 MG disintegrating tablet Take 4 mg by mouth every 8 (eight) hours if needed for nausea or vomiting. 0 Active raNITIdine 150 mg oral tablet (2 sources) Histamine-2 Receptor Antagonist Start: 05-16-2017 take 1 tablet by mouth twice daily Ranitidine Hcl (Zantac) 150 mg Tablet Active 150 MG PO Twice daily May 15, 2017 11:00pm rimegepant 75 mg disintegrating oral tablet (1 source) Start: 07-26-2023 take 1 tablet by mouth every other day as needed Rimegepant Sulfate (Nurtec) 75 MG tablet dispersible Indications: Migraine without aura and without status migrainosus, not intractable (CMS/HCC) Take 1 tablet by mouth See administration instructions Take every other day as needed 8 tablet 5 07/26/2023 Active sucralfate 100 mg/ml oral suspension (2 sources) Aluminum Complex Start: 05-16-2017 take 1 g by mouth four times daily Sucralfate (Carafate) 100 mg/mL Suspension Active 1 GM PO Four times daily May 15, 2017 11:00pm SUMAtriptan 100 mg oral tablet (2 sources) Serotonin-1b and Serotonin-1d Receptor Agonist Start: 05-08-2018 Sumatriptan Succinate (Imitrex) 100 mg Tablet Active 100 MG PO EVERY 2-4 HOURS May 07, 2018 11:00pm Syringe (Disposable) (2 sources) Start: 08-15-2017 Syringe (Disposable) Active 1 ML MISCELLANE Use as Directed August 15, 2017 12:00am Start: 08-15-2017 Syringe (Dispo sable) Active 1 ML MISCELLANE Use as Directed August 15, 2017 1:00am tiZANidine 4 mg oral tablet (1 source) Central alpha-2 Adrenergic Agonist Start: 07-31-2023 take 1 tablet by mouth every eight hours for muscle spasms tiZANidine (Zanaflex) 4 MG tablet Indications: Chronic bilateral low back pain without sciatica TAKE 1 TABLET (4 MG) BY MOUTH EVERY 8 HOURS IF NEEDED FOR MUSCLE SPASMS 100 tablet 2 07/31/2023 Active traMADol hydrochloride 50 mg oral tablet (2 sources) Opioid Agonist Start: 09-25-2023 take 1 tablet by mouth twice daily as needed for pain traMADol (Ultram) 50 MG tablet Indications: Chronic pain of both knees Take 1 tablet (50 mg) by mouth 2 (two) times a day as needed for severe pain 60 tablet 0 09/25/2023 Active Start: 08-28-2023 End: 09-25-2023 take 1 tablet by mouth once traMADol (Ultram) 50 MG ta blet Indications: Chronic pain of both knees Take 1 tablet (50 mg) by mouth every 12 (twelve) hours if needed for severe pain 60 tablet 0 08/28/2023 09/25/2023 Discontinued traZODone hydrochloride 50 mg oral tablet (3 sources) Serotonin Reuptake Inhibitor Start: 09-18-2018 take 50 mg by mouth once daily Trazodone Active 50 MG PO Daily September 18, 2018 12:00am take 3 tablets by mouth at bedti me traZODone (Desyrel) 100 MG tablet Take 3 tablets by mouth at bedtime. 0 Active 24 hr venlafaxine 150 mg extended release oral capsule (1 source) Serotonin and Norepinephrine Reuptake Inhibitor take 2 capsules by mouth once daily at mealtime venlafaxine XR (Effexor XR) 150 MG 24 hr capsule Take 2 capsules by mouth 1 (one) time each day at the same time. Take with food 0 Active vitamin b12 1 mg/ml injectable solution (2 sources) Vitamin B12 Start: 08-15-20 Cyanocobalamin (Vitamin B-12) (Vitamin B-12) 1,000 mcg/mL Solution Active 1000 MCG IM As Directed August 15, 2017 12:00am zolpidem tartrate 5 mg oral tablet (1 source) gamma-Aminobutyric Acid-ergic Agonist zolpidem (Ambien) 5 MG tablet Take 5 mg by mouth as needed at bedtime for sleep. 0 Active Completed/Discontinued Medications Medication Drug Class(es) Dates Sig (Normalized) Sig (Original) PARoxetine hydrochloride 20 mg oral tablet (2 sources) Serotonin Reuptake Inhibitor Start: 12-19-2017 End: 05-08-2018 take 1 tablet by mouth once daily Paroxetine Hcl (Paxil) 20 mg Tablet Discontinued 20 MG PO Daily December 18, 2017 11:00pm May 08, 2018 2:03pm sertraline 100 mg oral tablet (4 sources) Serotonin Reuptake Inhibitor Start: 08-15-2017 End: 12-19-2017 take 1 tablet by mouth once daily Sertraline (Zoloft) 100 mg Tablet Discontinued 100 MG PO Daily August 15, 2017 12:00am December 19, 2017 3:13pm Start: 05-16-2017 End: 08-15-2017 take 100 mg by mouth once daily Sertraline (Zoloft) 20 mg/mL Concentrate Discontinued 100 MG PO Daily May 15, 2017 11:00pm August 15, 2017 3:39pm Problems Active Problems Problem Classification Problem Date Documented Da te Episodic/Chronic Anxiety disorders (1 source) Anxiety; Translations: [Anxiety disorder, unspecified] Onset: 05-29-2015 04-26-2023 Chronic Diseases of white blood cells (1 source) Leukocytosis; Translations: [Elevated white blood cell count, unspecified] Onset: 01-23-2023 01-23-2023 Chronic Disorders of lipid metabolism (1 source) Hyperlipidemia; Translations: [Hyperlipidemia, unspecified] Onset: 01-23-2023 01-23-2023 Chronic Essential hypertension (1 source) Benign essential hypertension; Translations: [Essential (primary) hypertension] Onset: 01-23-2023 01-23-2023 Chronic Gastroduodenal ulcer (except hemorrhage) (1 source) Gastric ulcer; Translations: [Gastric ulcer, unspecified as acute or chronic, without hemorrhage or perforation] Onset: 01-23-2023 01-23-2023 Chronic Headache, including migraine (1 source) Headache; Translations: [Headache] Onset: 02-13-2018 Episodic Headache; including migraine (1 source) Migraine without aura, not refractory ; Translations: [Migraine without aura, not intractable, without status migrainosus] Onset: 01-23-2023 01-23-2023 Chronic Heart valve disorders (4 sources) Cardiac murmur, unspecified; Translations: [CARDIAC MURMUR UNSPECIFIED] Onset: 11-07-2022 Episodic Malaise and fatigue (1 source) Fatigue; Translations: [Chronic fatigue, unspecified] Onset: 01-23-2023 01-23-2023 Chronic Menstrual disorders (2 sources) Menorrhagia; Translations: [Excessive and frequent menstruation with regular cycle] 05-08-2018 Chronic Miscellaneous mental health disorders (1 source) Insomnia disorder related to another mental disorder; Translations: [Insomnia due to other mental disorder] Onset: 01-23-2023 01-23-2023 Chronic Mood disorders (1 source) Recurrent major depressive episodes, moderate ; Translations: [Major depressive disorder, recurrent, moderate] Onset: 01-23-2023 01-23-2023 Chronic Nutritional deficiencies (1 source) Vitamin D deficiency; Translations: [Vitamin D deficiency, unspecified] Onset: 01-23-2023 01-23-2023 Chronic Nutritional deficiencies (4 sources) Cobalamin deficiency; Translations: [Deficiency of other specified B group vitamins] 12-20-2017 Episodic Osteoarthritis (3 sources) Inflammation of joint of foot; Translations: [Primary osteoarthritis, unspecified ankle and foot] Onset: 09-02-2015 01-23-2023 Chronic Other endocrine disorders (1 source) Hypoglycemia; Translations: [Hypoglycemia, unspecified] Onset: 01-23-2023 01-23-2023 Chronic Other endocrine disorders (1 source) Polycystic ovary; Translations: [Polycystic ovarian syndrome] Onset: 01-23-2023 01-23-2023 Chronic Other gastrointestinal disorders (2 sources) Intestinal malabsorption; Translations: [Intestinal malabsorption, unspecified] 05-16-2017 Chronic Other gastrointestinal disorders (1 source) H/O: GIT by-pass; Translations: [Bariatric surgery status] 05-16-2017 Episodic Other liver diseases (1 source) Steatosis of liver; Translations: [Fatty (change of) liver, not elsewhere classified] Onset: 04-26-2023 04-26-2023 Chronic Other nervous system disorders (1 source) Chronic pain; Translations: [Other chronic pain] Onset: 01-23-2023 01-23-2023 Chronic Other nervous system disorders (1 source) Paresthesia of skin; Translations: [Paresthesia of skin] Onset: 02-13-2018 Episodic Other non-traumatic joint disorders (2 sources) Pain in right knee; Translations: [Pain in joint, lower leg] Onset: 01-24-2023 09-25-2023 Episodic Other nutritional; endocrine; and metabolic disorders (3 sources) Morbid obesity; Translations: [Morbid (severe) obesity due to excess calories] Onset: 01-23-2023 05-16-2017 Chronic Other nutritional; endocrine; and metabolic disorders (1 source) Body mass index 40+ - severely obese; Translations: [Morbid (severe) obesity due to excess calories] Onset: 02-12-2017 04-26-2023 Chronic Other upper respiratory disease (1 source) Allergic rhinitis; Translations: [Allergic rhinitis, unspecified] Onset: 01-23-2023 01-23-2023 Chronic Residual codes; unclassified (1 source) Sleep apnea; Translations: [Sleep apnea, unspecified] Onset: 01-23-2023 01-23-2023 Chronic Spondylosis; intervertebral disc disorders; other back problems (2 sources) Radiculopathy, lumbar region; Translations: [Low back pain] Onset: 01-23-2023 01-23-2023 Episodic Unclassified (1 source) Auditory hallucinations; Translations: [Auditory hallucinations] Onset: 02-13-2018 Episodic Past or Other Problems Problem Classification Problem Date Documented Da te Episodic/Chronic Deficiency and other anemia (1 source) Iron deficiency anemia; Translations: [Iron deficiency anemia, unspecified] Onset: 01-23-2023 01-23-2023 Episodic Diabetes mellitus without complication (1 source) Impaired fasting glycemia; Translations: [Impaired fasting glucose] Onset: 01-23-2023 01-23-2023 Episodic Neoplasms of unspecified nature or uncertain behavior (1 source) Thrombocytosis; Translations: [Thrombocytosis] Onset: 01-23-2023 01-23-2023 Episodic Other connective tissue disease (4 sources) Pain in left foot; Translations: [PAIN IN LEFT FOOT] Onset: 06-27-2022 Episodic Other gastrointestinal disorders (1 source) History of bypass of stomach; Translations: [Bariatric surgery status] Onset: 12-29-2017 04-26-2023 Episodic Other lower respiratory disease (1 source) Dyspnea; Translations: [Shortness of breath] Onset: 01-23-2023 01-23-2023 Episodic Residual codes; unclassified (1 source) Edema; Translations: [Edema, unspecified] Onset: 01-23-2023 01-23-2023 Episodic Viral infection (1 source) Plantar wart of left foot; Translations: [Plantar wart] Onset: 01-23-2023 01-23-2023 Episodic Results Test Name Value Interpretation Reference Range Facility MR lumbar spine wo conon MR lumbar spine wo con [facility] [place] [address] [place] [address] MRI Report Signed Patient: Marilee Arriaga MR#: [id number] : 1975 Acct:[id number] Age/Sex: 47 / F ADM Date: 09/19/23 Loc: Room: Type: [facility] Attending Dr: Simona STOCKTON Copies to: MAHIN Wasserman Ordering Provider: MAHIN Wasserman Date of Service: 09/19/23 MR/MR lumbar spine wo con: LUMBAR RADICULOPATHY MRI lumbar spine without IV contrast. Reason for exam: Lumbar radiculopathy. COMPARISON: Lumbar spine series 02/15/2023. TECHNIQUE: Multisequence, multiplanar imaging of the lumbar spine was obtained without the use of IV contrast. Findings: Vertebral body heights appear maintained. No abnormal bone marrow edema is seen. Spinal cord terminates in normal position without abnormal cord signal. No paraspinal mass. Visualized retroperitoneum demonstrates no acute findings. L1-L2: No posterior disc pathology. Mild facet joint degenerative changes. No significant canal or neural foraminal stenosis. L2-L3: No posterior disc pathology. Mild facet joint degenerative changes. No significant canal or neural foraminal stenosis. L3-L4: Mild diffuse broad-based disc bulge is present with facet joint degenerative changes causing no significant canal stenosis. Mild right-sided neural foraminal stenosis. L4-L5: Diffuse broad-based disc bulge is present with central protrusion type disc herniation noted. Facet joint degenerative changes. Findings are causing mild canal and moderate bilateral neural foraminal stenosis. L5-S1: Facet joint degenerative changes. No posterior disc pathology. No significant canal or neural foraminal stenosis. MR/MR lumbar spine wo con IMPRESSION: Degenerative disc disease as described above, worst at L4-L5. Impression dictated by: Linden Beckford Jr., D.O.09/19/2023 2:27 PM Dictation Location: [place] [address] Transcribed By: [facility] 09/19/23 1427 Dictated By: Linden Beckford Jr, DO 09/19/23 1412 Signed By: 09/19/23 1427 [facility] XR pre/post mri xrayon 09-19 XR pre/post mri xray [facility] [place] [address] [place] [address] XRay Report Signed Patient: Marilee Arriaga MR#: [id number] : 1975 Acct:[id number] Age/Sex: 47 / F ADM Date: 09/19/23 Loc: Room: Type: [facility] Attending Dr: Simona STOCKTON Copies to: MAHIN Wasserman Ordering Provider: MAHIN Wasserman Date of Service: 09/19/23 XR/XR pre/post mri xray: LUMBAR RADICULOPATHY Lumbar spine 2 views. Reason for exam: Lumbar radiculopathy. COMPARISON: None. FINDINGS: Scoliosis is present. Vertebral body heights appear maintained. Endplate and facet joint degenerative changes with mild disc space narrowing. This will BE further evaluated by MRI. XR/XR pre/post mri xray IMPRESSION: Degenerative changes involving the lumbar spine with scoliosis present. This will BE further evaluated by MRI. Impression dictated by: Linden Beckford Jr., D.OArianna09/19/2023 3:08 PM Dictation Location: [facility]--15 Transcribed By: [facility] 09/19/23 1508 Dictated By: Linden Beckford Jr, DO 09/19/23 1507 Signed By: 09/19/23 1508 [facility] ECHOCARDIO M/2D COMPLETEon 0 11-07-2022 ECHOCARDIO M/2D COMPLETE Patient: MARILEE ARRIAGA Exam Date: 11/07/2022 : 1975 Gender:F Ordering : DR FRANCOISE BARNES PA Admission #: [id number] Family : Order #: [id number] CLICK HERE TO VIEW EXAM ECHOCARDIOGRAM REPORT from PROCEDURE: CARDIO PULMONARY ECHOCARDIO M/2D COMP INDICATIONS: Heart murmur COMPARISON: None. DESCRIPTION: COMPLETE ECHOCARDIOGRAM Real-time transthoracic echocardiography with 2D, M-mode, spectral and color flow Doppler performed. QUALITY: Technical quality was limited. LEFT VENTRICLE: Normal chamber size. Normal left ventricular wall thickness. Normal systolic function. LV EF: Normal left ventricular ejection fraction, (>55%). DIASTOLIC: Normal diastolic function. ATRIAL SEPTUM: LEFT ATRIUM: Normal chamber size. RIGHT ATRIUM: Normal chamber size. RIGHT VENTRICLE: Normal chamber size. Normal right ventricular systolic function. TRICUSPID VALVE: Normal mobility and thickness. No stenosis with no regurgitation. MITRAL VALVE: Normal mobility and thickness. No evidence of mitral valve stenosis. There is no mitral annular calcification. No mitral regurgitation. AORTIC VALVE: Normal trileaflet appearance. No visible sclerosis. Normal leaflet mobility. No evidence of aortic valve stenosis. No aortic regurgitation. AORTIC ROOT: Normal diameter and appearance. PULMONIC VALVE: Normal thickness and mobility. No stenosis. Trivial regurgitation. PERICARDIUM: No evidence of pericardial effusion. IVC: Collapses with inspirations. PLEURA: CONCLUSION: 1. Normal ventricular function. LVEF is 60%. 2. No significant valvular dysfunction. 3. No pericardial effusion. 4. Technically difficult study with poor sound transmission. Adult Echocardiography Procedure Report Left Ventricle LVEDD (3.7 - 5.6 cm): 4.90 cm LVESD (2.2 - 4.0 cm): 3.15 cm LVIVS thickness (0.6 - 1.2 cm): 1.02 cm LVPW thickness (0.5 - 1.0 cm): 0.88 cm e': 0.07 m/s E - e': 9.10 LVOT Max Gradient: 1.82 mm[Hg] Peak Velocity (LVOT): 0.67 m/s LVOT Diameter 1.77 cm Left Ventricular Ejection Fraction: 60 % Left Atrium LA Volume Index (2D A2C): 56.24 ml, 56.24 ml Left Atrium Systolic Dimension: 3.87 cm, 4.42 cm Mitral Valve MV E to A Ratio: 0.73 Mitral Valve A-Wave Peak Velocity: 0.90 m/s Mitral Valve E-Wave Peak Velocity: 0.65 m/s Right Ventricle Aorta AO Root Diam: 2.49 cm Aortic Valve AoV Area (Peak Rony): 1.22 cm2, 1.22 cm2 Peak Velocity(Antegrade Flow): 1.37 m/s Peak Gradient(Antegrade Flow): 7.46 mm[Hg] Tricuspid Valve Peak Velocity: 0.54 m/s Pulmonic Valve Peak Velocity: 0.81 m/s, 0.82 m/s Peak Gradient: 2.60 mm[Hg], 2.72 mm[Hg] Right Atrium Right Atrium Systolic Pressure: 33.57 ml, 33.57 ml Dictated by: Shay Masters M.D. on 11/07/2022 at 19:12 Approved by: Shay Masters M.D. on 11/07/2022 at 19:16 [facility] Coding Summary.on 05-04-2022 Coding Summary. CD:[id number]:[id number] Gh0bWw+PGh lYWQ+NP3MSNPsB18kcJBsnT0LA9bLC R8VUZJJLIKJNA9YAQ4tzEO5KAtmK0H ybiAv MgkldWJxUN63FZd4KSW8mCupQEtooV 9hoHBpU5o1LaVjLY41zP06LTxwQJGo GvK1YkWtdmpazOKy T2vnOmXvtFUxNxn+PHRhYmxlIHdpZH CbZUlwQSDsCaBkrNxmZG9hZw6eKSLy LWNvbGxhcHNlOiBj c8fpNLHkETwwEF3ibMntB0LjiJB1QF Vgf8w5Oq30mLY+YZSoORC0yJafQYmp j709LhEki6xvQSF6 xFKhROplASF9T00it0Z4XMSuQUGuQN O3bNU9xN4rlJlzopdmB5VhcDFhFwA2 TGU8aZXjsF1pyXyh gmprdE6gRts+P25GZY8HCHWZWA1GDk b0K0KfWyzdzWP+AY96PNSeAD78zCBw uTKph8dokSl6GvPt VOQmEKA0gZebFXrah0YyFARnF51xeL Lfe9S5IUWfjWuqeCNyCdSzbJP3sY0y SWkbrqjxv0zzmppf Yufwn0pgte61rV68T51rBAbaJAZmKK S4STUaTQFeaBqsak8zgJ8yQk3+IDxj s4xpa1hckQv9EeKn NUHpovPfoNfdWHY9u4ZhYm25L7LdmW fai9RdSvj2nt44xJKtv3Y9jWK3HUmd SYAhaF0nSEokNjU9 KLEuCaIrnD76hKOmEVztOv4ykMndkV qqXF8aVNFkvgkbHIVbdR6rVGVqcHTs jRpxPM0oOQJiysap q369GsLcHZC1IIOmpAJqV5VcwV9gJa JnAWPcQBCaO8DvfNCwFWxiA843NFjb DkG7AKXolgHvR2Qf MJYnkHiiZcA1p5M9Xx6Np7ZnufzjND X0BFqeLYS2EdX9YvToItL1O0HtWfz6 SSCsnScqUJ3dJ3Rr UAAnimrxzujydMS6RSXeCQTqaG77rG NoJQuvHn2yu4C7r598EZFlCEGpoH93 He6jcVfoXXKksCWE pI5aulxfn4qudxuiOtHdJMWlQHo3DB d4QFCwzFcnDuPcBTA6ToF9LPP3qOUx rQ2jgOjpmetwjE7i Oyc+E48qcD0zYAF2GHO8aliuIJIbob CsFD14CE75R0InOuzsoPAsuOP+PGRp doUrmOozOY0oOqJs f5vjv9LpQIekT0DnZRJsZIlmOfi2JZ EiNVB5wDM1dA1tQFWbFFzio9V8lWN6 L9KgkeGmwn1ph0sk LJKsRDrkD11efIKhm1R7BBCcaQW2RG UtgQqeDdMkbG41Xzl+WUQdwZuhc6Uk Rlali6uhh3pgyXy5 OaQeWMPjvjUfwKcfUMN1j0HpLe59A5 9uUEtgMQDdSCTqHUQgHKTqyCmdob8e kU6sKv1+PGNvbCB3 qGO4rH1cJTMmOoR9HRseJ737YkRykI ShUusdd8qof5xkfDu3CeBxWYDzqmIz oKgsBDP6t0MzYy07 O53rRMfoMYEcLKXnNDEnFWQdzGyuda 7azE8xKq4+YY4rg1qbpt29kH96cYH+ CRPqYIL1zAucCKth DBKjkN7fIHxfHvH0JZSuHuWnbE24vL WaDRatDe7hdAiivKyfWX1yMPKgawbt a263DuFcx3wuSNUh nMXsYPouDSL5H04hr8Q1LRLtOSByEY L4zAW6rX1ooGimwlgacZIeeVpgktOw nZdwRTkuATuoL957 GZHltPerNdWmpDgcinQrRyIvWEc0X6 SmIxj0GPCwfSqfAE3ayGKfKIooOk3z iWyesInyXJ2aFOJt aunoq588ZrShh8duYPUsmIJnJXgoPU I3M10vz7A9GVQrEXIvRNG4aLN8gZ4t bGlnbjogbGVmdDsg kvLqeFqxKYprVWgfX034EOSchDnxMp EkudQmAMIyvOP1HO03RV75bNAjy1X2 aTQ3X6ZxFLUwmuew xcuimAD6ZVSyUFCotO64Rs6miJsaPk 9yDBHbBMN8FRIzjQXrR6ZumE0kZgCu GANrLYLfB0ZmoVVk WYggE703NDgbAdH9DHVtgtRqF4NdNV QeiCqzNnO5c8H9Yi9GT9W0HM58FH19 hUQdc4M1oIO2W8Gd TGNuwihavmznxIP6SVGqEELfeC44Ik 0myVilVd7iAKBuICF8PBPucZInS6Ta hC9nGpFlRESnNPTa B7QnlIYkEWoaV307KLcoNhX3KDDoht JdW6HpMRVtkEocRrP1y2I2Zy4ONJf7 EZ73RN23tEFua5L8 qWI9E5BnUYDhxwztnxguqZR5BSKpRK LzhO10Vm5uhMamUm3zXVTcZQY4KDZs yJSfY7LduG4pKwAs YMRoHFIaO7YhmEGsIAmzE492XHbrAo L2WYTuvhLmR7VoYGDwbPuzNxY8n7W5 Qf1MRHBwHB89QJH6 lVJ0VI90YA44J7DoWyejgRKrkFV+PH RhYmxlIHdpZHRoPScxMDAlJyBzdHls NR5gDn7fWXKsFZEw jFonnEWwNnAdb2ouEZQvKDncZE3ckN lvA1SehFO6AXDcu6v9Ch87U21qO0Fs dXA+RCCahZG9eYL7 pS7ePvNzSeE5VSanQ768MqRqlNDuZg non6ocx0uaiRd0VwR1JMGgpgPoqYkp ZYP9h3VhRs15S14w KSubIBLdFOYhFOUxFDGnhCemti3giM 9wIi8+ZHUugXL4aUX8zK8dOkAkHbH6 GFtmQ539CzNheFZa Vuexm3sdl8nrtUc9XdDmXFVcxyLhxN quCVR1j9QlVp14M5GdaBxwh1FrSwf9 kj47aVTne5F4jHC9 P6RfJBGusfzwaNPhbSpgNA3hPVTyui bzUYDrjS0xWEFnN3e0NwGbTkC6ZPam F6GclwY8YRFafBNw KJckJOP4V50qn2X1TLAcXNRfUID2wE S9jL6qqNkzkcgssIJpsBsfgqKvpXvc RTtaSFalB575NSAo jRtzLRZtiZ7oZZZbxTMqnJznFO3xTG VprjhcJgCBCAsTMDXBKY8LBHMQWkCE XB33XD25pEErb4I7 wPV1A7AfBVOsnzclqvobqBN1ABJbTZ FssC70qHJcCFtjZi4fy3B9n736YYOz DHZrtW05Na9wnPlm TWGfiLMJyT2tidxux3glsybjNgAbMM NrRAl3VWj2TKCpcIlbDhGeMGG5NsS9 AGM4aKJeuX6znMoi jctanD8oQuk+CSBwWtWoWHd2GZvwpT Q+CQTvDCN2cKbeIDojOMWyaN8uRGEv Y3u3SgUzQxC5CVnv D1WrEWOiyioqIi89cF6uYzPeLmX5KN zoB4RcpsC8VFPghQKsXWbxHEA2V96z w0W8DCJpQLHrVLY8 rQN2uB9jbNtxzohwuMUnrTqafuHbrI rqXBigGAtuC685QIGrfRdgAvW5KOjv UEHuZN15OU26vAJm m4O8tLB1F1RhRXPgtbrnoknjtVV2KS AfIGXkqZ72qNPiLPoeAq8cd0F2j251 VIFgGVCmjP49Hy0d aDyvPVUxfIGYqN5ajlqhk5ptlybgYz FcCNYkDNq7KKb0RDVsrHawBrWvWDG4 FgT0HZB8dGHxeT3p aZqbgxskzO2qCza+UqPjRLejNH90AE 17fEJlp2E7kPS1D0JaMEUifxxrgsbo oSK9MAGnRDVohZ17 pYCeUUqsVn1oh7A2e457IJKfMTIfbG 69Xn8gsChiCRIncJCYqC4pqxill2yt cjogIzAwMDAwMDt0 CTm4PEXvxMiyChIkUDV7XhW0LLV5oA XtlK0ozXhwndmctE6aFcp+UmVjdXJy rW4fES67HF53L8Dk PjwvdGFibGU+PHRhYmxlIHdpZHRoPS hfIQJpXaDstOiaLA8oGl1nPMLvEGBs mVwtiOTrLbTyf1qn TOYrYWngXW4qcMrrM2OcrRR6LOTzs6 w5Rm75Y32xB1TrfUO+HAGugGO7aVT1 kS3vJrCpGdW8VMvs C964ZfCrcRIcAfuju7gfl6zvyMt4Tl RnXYMfltMpoFpdGTE2l6CjJj24A87d IHdpZHRoPSIyMCUi HZGthGddkd3ikD2lWa6+YOVazTC7eO P8uB3oAtEyIjV3TJniG568VjVrpXFb EjyaD83pK5TqpQM+ HMQgGni3KEMniSyvMP6vbNUuHPptHb 3sAXS0StQcNaQjIUyvE1PrXYIwygmt cxvtbWP9AKYsIICu rS95Zd0tuPjgPp7jSBQbNYR4BEHarQ MuL7GtzT4bXoVtCKSkORQfU5KtnXJo DRmbM839QLwyIjX8 PSWjtpGaM4YoHXJnuXcyAnP0j8F1On 9XdKvmrHMuRY1iOgAiUHl4B5YfPin9 DWYcxLlaTX9hhVYo TVtcOe0oiJrkpBrgOB8pXSVgdliub0 90NoTvy2zyNZBzvJYbVZaaHVE4E81t v7C7ONOuFHFpUED6 pWM7zI6ppBlsktpyoKKtxUpcimZlcV ckXUwaLRsiX547OYJpsBajGgSPNbi1 T9LnLux3UMAidZac SW7fgZHbOLroWe3waGczvJkhPF4gWO Vhkjoub338YgVqt1tyBDYlpBSvEVbt GSZ3H32ar4H6WVFk FDKzHEX7uHF6eO9dsHuijxdlsWKksN pkckXtcKxoSEasNEokA115AILazLxl Zp0WBtn0O0ZeVsf5 ACLwgUbvOD0kiROoXGabXl6guXjwnS avNE8yUIWacqyab626XiYpi4pzBRPc oDXcHNqoHEY6T09z r2P1SQWmAYHbDWQ5qCI3oD3qzIngqz mwxKYkaSioduLvoGguKLfdCJntY795 IHRvcDsnPlBheWVy OjwvdGQ+ZC55xh80O6YmMxhlHfl3WW BmAJE8iBE3rX6aUSWoBWyrk5N5cLY9 R3BdsqHztl1sc9ts YXBz (more content not included)... [facility] Consent for Treatmenton Consent for Treatment [id number]#1.00CD:127 [facility] Outside Records Officeon Outside Records Office [id number]#1.00CD:127 [facility] Physician Orderon 04-14-2022 Physician Order [id number]#1.00CD:127 [facility] Coding Summary.on 11-12-2021 Coding Summary. CD:[id number]:[id number] Gh0bWw+PGh lYWQ+RA1GASHgV99upGHuxP8AM2gIX I7GWJSHZFAZAW1GDW9ypSV4NNhdD3P ybiAv JwbgrQDrBO22UHs5FYK1lFigTUhyuB 2muVEtA8v2CsBuPH83hZ18BOnfVYTu InO5FcYicabjdJQo L4ziCfDzbRYxYef+PHRhYmxlIHdpZH XfAHpnPQPtPkZmsFnoND5mCp1kWPYo LWNvbGxhcHNlOiBj c5elAXKsHGwoAJ8dvBinH4WuqEM8XT Umg9w2Wn98mCA+MJRxCXV0zAbaZRck x069IuAkd8enLNI4 kFRjBSiiYQB1P66zu2M8GRAwKFJeJV P0yST3jR1zuDorirwlP4AppHDeDiL7 OZV0rERcwA1bsOma wcmrhO2zOom+T64TJW4KZZHJFE3XIk d1X8HwXxkffMD+ZQ34UUCzZV98qNLx oNDva2qrwNp4YrDh CVYlAFA5vUsyWWalk0DrLBYhA01ktT Hbi3A6DJLnoUxkgFZpZkWynIM7lQ5a HUpnzqinm3mofzav Aeqbx0rsvd45eG13M63qYQunZPZiUL H6EYCpVHDpbPhwdb1siD7wRm7+IDxj v7lpq3hipKf5TePa DSMpjeWzhFisVVH7p6WiTt65T7CpfM lxj8ZyUfk1qy58wABkp5U4rBT6ALmv JMYyjA5fMEweMzI2 MVLjVnRdbV73iZFqYMicYf0dtYivvX lyPD7iAFVspiryPNPswZ2kMUGitJNm sDieRG3eKTTxvncw o315PyMmBTH2AYTwvZXlH0WokC4pFq ZtNPIhTDMgO3TrtJZtMEjvW153DMaz JbW8HRFfydFkD0Xz BBYqgXmxEhV7r9O9Gz3Gb5HcczbfJW P6BJrnVXHyYrG1QlGvOgA0I4FiOzy3 UBDtcJruLK1yZ2Gf ACRgkjdoeqnlfYG3XYWrWPMepB62rN QjIMrpVl0wp1K8x928FXBjKRWnhG29 Do1rcRcxBWGhyAVK kU7zmlwch4dzlyapNyKhKBZfVTf4RN e5UTUjzFysXnGpKBS8PcM9QSO8sGTb sP0nsNoxnacktM5s Oyc+J46mmP1iCIW6OCT7sbtbHUPryg LiFT12CK21Z1BbNsiyrMBflZK+PGRp pnNqxCgwLB7kYyBz f4eoz0HhRIrjZ6SxUWNkOXbsDlf8XN IfCXU8hXV0iT0iQUMuLEozl8Q5vVR5 V3OgpjCctg1ze7qg FROzLFziD74xcSDua4Y6IOMxiYO3FS QurPwuQgSyeX06Hyi+MEPiwEgee9Nb Rtlac8rjy7xfkCr4 XxHiTERlstGitYicBXV3e3TuLj04R6 9gUAmqHUEfHJVmNPJxHQXhmQeqyi4p cL2lDz9+PGNvbCB3 fDX4aI2iMHUjFhD9PEbgE884LuYqhY BjOnffv9rii7kgsZu2YuWuZWDnzzBh wYzgYCV6a1EeQz08 I29dTKvcIIEbRAPqDPBnUPKonIqiyy 3zeQ0yXn9+UQ9ix0vfxa60kA83fJX+ PLIsYLA1fGaiFWua GKIkbN1pDKatPsH8LLMmDiNokY45aB UwGLtqCo7vjHjriKtfBK0eSNFenzjy b829XnZcz3taMVXj eVStDGfaXPE6P96dv5V1RSKbGZJtDG T8wJJ1xS8rwXcvkcwlgWUasOqwdiSg cSbzOWtoGOszR831 GVCnfVgnRdOzlPidlcClJyXhIBd7S6 PxLtv9KUXefRtyBD7paIUxDQnaHd7g sGlruVdhRM1bLMIh yunpy304HrZwy0hdAVBveTQpQMerAO F7I66ga4W9FKKoRZSeZHJ6yQX0dL9a bGlnbjogbGVmdDsg xiYsuAynEGyfCYxnU606GATlnNnwZx ByvpWmNIGusPZ6KO46MB70rDCwg7X7 oWN3L2NcWUHkqxnf ldqyyYR3FJLeCHCwrU28Df8ijZsbHy 1jLYTcXHV8PEHskTXjF5BenY5sCrMy NTSxZRTpX5RhcMNt KPpvX864BVjjOyM1LIYkqjMmA1QxVC HedJgrCsF6e3K0Gr9JE4C6HC70TH83 mVYec5W5zNG4R7Fw SYRmvxmkiwuzwJK9TCJrOVQobC27Bb 6pxAmzBj2zOGUqSHO4RKSnfGBwQ8So sO7iTiGdXZIoGKKn V4SetLHbRKsgT674DPuwAyE8UHUjcp LpY5OkGROtuOqvNtV3i5J5Ou7CGIe5 EW59TV40sWEqz1T5 vBY8B2OrQEFyfgkxtcjbaIH4WXAfZH KvkL97Qb5scAxmPa1xFPPkWSQ7NILf jURyY8XleG1jYdTs BXHuCJMsR4LpsYTaLTihT740NKykRm S4BSZzsqCdP0StPFDiiBnxIeQ2e3Y0 Kz3SNWPiBC44SXE4 pDT0EZ10DV56W3HkWkisqLNpeWB+PH RhYmxlIHdpZHRoPScxMDAlJyBzdHls EZ1zPj0vRZIhQZHh bJxdxARpUtBuo5jdJTMtGMutWW3hkQ uhP6JsyVR2ARTpy5p2Nt96Z16nB4Hi dXA+RNVrzSH3rSL2 rU8pCuCwNiJ8WKrsL917KmAaiZOwFf slz3qzz1shgRa4SzD6CABygySlaKtx QLN7y9PpCn87V36e LYghRCXhWXLqNSMxRUXiiRpvwx7gqT 9wIi8+LUSmcLS7uVT2rQ5hEsQoKfH8 WXonN243JrFrxOMz Ywkkl6hvd0vjcBg8UlKtGTDpgxWgmM riMNX8x6ZuHg16P6ZmmFudb7GtBhi7 dc91qVByk6S6fPG1 W8XsBYSqdzxwcQWpgUulWW5tEGWlxp gyDNMnnJ4qOYFvJ5h3GwRrKtL1UFcf T6HqqoN7RZAoxYHf IYpaZPT7O77xu8E2BWWfPCBiSSH2fH Q5dH7zqBtgvbqudJGwbGagqcHcoCiv FRyfLQszA671ICQm zHlsCMLfjB3mGYLzcGPlzIjoEC9oAH PuvswfTcBKXBqXGBCTKA2ROBSKUwAX LQ71TQ40xZUry2M9 kDX1T9VrQEKcufgdxtqkyPX0YMJtTH BplF19vXClTWdkBx9qk9O8g094YOZc MBZrfY60Ls0tnZks KKOlfCHOmJ7dftqrm9ceclnxCaZkPK KhSWu7YNf1KPZvpWndLrFtLTA8RrR5 XXQ5eJJxlC9ngJvj uurvcQ3bAax+MWSbWrTyQEp3VZiqlG Q+SMEoEOY5pXitJTitLXVeoX9mQCDk X6z6IbGpMqO4OEcl F5MaKNDbjuigOi24bD6fZyOgThP6ED gpX3WntgC1HLNtsRNfTOsvDKI4H21u h2K1PIGdZVAyCLH3 gLV6xA5xuUpfhbfohAQxkWonfnOqnK yjMBbeRNggJ382ULNvqFsvCtHrPPmj JNXlOM70FO38mTOr f0U7lBH3O6CpBBQcpckyilslmWP6DR WjUUNdrA92mZWmZNtrVa2vr7F4m694 ADVfYQWzkB57Hm8i nGaeNHEteKFDuV6xpglsd7oiwdcjIs FlWJMgWHw8RMs4BHPyvTfkIrIjTOD8 DbU9HQI8tWMldF0k fPzolhqgsF4aMmo+BzFlTGeqOT66FS 79oQWcw2U0iTF8M7ZqFYJfjrgpycvb nAN3TMTzTPLwvZ23 dATdSWznGn3tz0L4q777PIPsFSDgdN 32Tn8daWajLXHvnTUBpL7zrcnbh2op cjogIzAwMDAwMDt0 FUm8QDIalQwjLhXcVMH1WgL0UWG0oM OywL7arLebxpripU0nIsq+XN7orwno mwO5CE91MA31Y5Cy PjwvdGFibGU+PHRhYmxlIHdpZHRoPS btXRXhFsCzmYhxSM0kNs8hJEZxYWQb gLmyhSExUgGmv2lp IRCyIHmsSG5luQvaS4MefPU4ZYXyb2 e9Ve74W32wR5JpwEL+JEHrhVF7iKD5 kM7mGuCkUgW1VRqm X657KuCqgYQhKanlz6krh7ppsDi8Bd OgJVQyseYehCunTOT6p0TuYx07C42x IHdpZHRoPSIyMCUi IXXksCfque4fcJ5dFe8+EWDiuJQ4wE E3sX9eDlOpKzJ0JFdzJ615QcHfpEQd AknsH64gZ5ErvRL+ XGFfBln1UYPciPcrVJ3eiKDjCVgcHc 2tLJL4TrJhKdViGRqeW1PzVYKaojhw ubtcuEU7TUTzMFQp zC27Hj4nxOcqAg1vFEQwSCR7BIIixU ViV5BlaS1eQsPqDVXzIFLmV4XuzWQy CBllZ374VMbrPiD8 EVSoiwObX0KpTGMsuGyyRxA3e2U0Ss 9DkPofwLEcXA6aZqIoBUy0T3PhQxd2 NYWhnYjiXU7egBKm JDilDk0sxEoebNecWS4bQVAqimxad9 31JxFag7qnWNBntPLtMPxyYIU9M36y e4F5SVCePVXbHIL9 wYT1wY1auUeoosufxPIzwQdtckKsqO ucKGaqWHsyY168CXTmjLjoLpXITch5 I3JhLob5GBIthZyv SX7ewJLtVDnlHp1zuTtbiKbjWJ6jFT Vlakeon655SeJog3mvQHAtjWXaBSck ASW3E77wx1J7UXQu ZWUtDGJ5fMG0uB0sqSpyqpvasDSfaZ lkfmKctOprLAgrMEhkA798EHBdrOwo Tt7QTrn1D1SmUbp6 SFOfeGxuNW4gdPFeLLpsOd6zhOclrA vmAL8wDWYlbcmbg678IaKeq2wkMNDu qVCsVAgvJMG2Z88a o5T5NGIjDNBqVVQ5iYG2vS0nvMmdiq dphTUgpTvaljPqtPdwYKxqYOfnQ289 IHRvcDsnPlBheWVy OjwvdGQ+LS26zz26Z5HjPqdzRgo8CN LqXPK0cCR1oE2eKTKbVTvej2C4zGE6 E3RxuoQhto1ln7xp YXBz (more content not included)... [facility] Consent for Treatmenton 10-19 Consent for Treatment [id number]#1.00CD:127 [facility] Discharge Instructionson Discharge Instructions [id number]#1.00CD:127 [facility] ED Clinical Summaryon 2021 ED Clinical Summary [place] [id number] ED Clinical Summary Person Information Name: MARILEE ARRIAGA Felipa/[facility] Age: 45 Years : 1975 Sex: Female Language: German PCP: FRANCOISE GAY Marital Status: Single Visit Id: Visit Reason: Ankle pain-swelling; FELL, HURT LEFT ANKLE AND FOOT Speciality: Acuity: 4 Enc Type: Emergency Med Service: Emergency Arrival: 11/05/2021 13:19:01 Discharge: 11/05/2021 16:00:52 LOS: 000 02:41 Checkin: 11/05/2021 13:19:01 Checkout: 11/05/2021 16:00:52 Dispo Type: Home (Routine DC) EVENTS: Event Name Event Status Request Date/Time Start Date/Time Complete Date/Time Arrive Complete 11/05/2021 13:19:01 11/05/2021 13:19:01 11/05/2021 13:19:01 Document Home Meds Request 11/05/2021 13:19:01 Triage Complete 11/05/2021 13:19:01 11/05/2021 13:26:59 11/05/2021 13:26:59 No Visitors Cancel 11/05/2021 13:20:26 11/05/2021 13:33:32 Registration Complete 11/05/2021 13:23:20 11/05/2021 13:23:20 11/05/2021 13:23:20 Reg Complete Request 11/05/2021 13:23:20 Reg Bed Request Complete 11/05/2021 13:23:20 11/05/2021 13:23:20 11/05/2021 13:23:20 X-Ray Complete 11/05/2021 13:28:03 11/05/2021 13:29:11 11/05/2021 13:50:43 Wet Read Request 11/05/2021 13:50:43 Bed Assign Complete 11/05/2021 14:32:35 11/05/2021 14:32:35 11/05/2021 14:32:35 Dr Exam Complete 11/05/2021 14:32:35 11/05/2021 14:34:26 11/05/2021 14:34:26 RN Exam Complete 11/05/2021 14:32:35 11/05/2021 14:49:23 11/05/2021 14:49:23 Registration Request 11/05/2021 14:34:26 Fall Risk Request 11/05/2021 14:49:23 Patient Care Request 11/05/2021 15:14:49 Meds Admin Complete 11/05/2021 15:14:49 11/05/2021 15:26:07 Discharge Complete 11/05/2021 15:38:28 11/05/2021 16:00:59 11/05/2021 16:00:59 Transfer Complete 11/05/2021 16:00:59 11/05/2021 16:00:59 11/05/2021 16:00:59 ADDRESS: [address] [place] [phone] PHYS DOC NOTES: MEDICAL INFORMATION: Prescriptions Given: New Medications [id number], [address], [place] [id number], [phone] acetaminophen-hydrocodone (Jackson 325 mg-5 mg oral tablet) 1 Tablets By Mouth every 6 hours as needed as needed for pain. Refills: 0. Medications to Continue with No Changes Other Medications aripiprazole (Abilify Maintena Prefilled Syringe 400 mg intramuscular injection, extended release) 1 Intramuscular once a month. beclomethasone (Qvar with Dose Counter 80 mcg/inh inhalation aerosol) busPIRone (busPIRone 30 mg oral tablet) 1 Tablets By Mouth 2 times a day. fluoxetine (Prozac 20 mg Cap) 1 Capsules By Mouth every day. fluoxetine (Prozac 40 mg Cap) 1 Capsules By Mouth every day. lamotrigine (Lamictal 100 mg Tab) 1 Tablets By Mouth every day. ondansetron (ondansetron 4 mg/5 mL oral solution) quetiapine (SEROquel 100 mg Tab) 1 Tablets By Mouth every day. ranitidine (ranitidine 150 mg Tab) 1 Tablets By Mouth 2 times a day. sucralfate (sucralfate tab) By Mouth 2 times a day as needed Other (see comment). sumatriptan (Imitrex 25 mg Tab) 1 Tablets By Mouth every 6 hours as needed Headache. tizanidine (tiZANidine 4 mg Tab) 1 Tablets By Mouth every 6 hours as needed Muscle pain. PATIENT EDUCATION INFORMATION: Instructions: Crutch Use, Adult; How to Use a Stirrup Ankle Brace; How to Use a Cast Shoe; Foot Sprain; Ankle Fracture Follow up: With: Address: When: [address] [place] [address] Business (1) In 3 days 11/08/2021 Comments: Return to the emergency room if your pain gets worse or any new symptoms. With: Address: When: FRANCOISE BARNES [address] [place] [address] Business (1) In 3 days DIAGNOSIS: 1:Avulsion fracture of left ankle; 2:Sprain of left foot Normal [facility] ED Note-Physicianon 11-06-19 ED Note-Physician Basic Information Time Seen: Trinity Novoa, Tyler Petersen 11/05/2021 14:34 Chief Complaint patient states that she tripped down 4 steps today and is now experiencing left ankle/ foot pain. denies blood thinner or LOC. denies head neck or back pain History of Present Illness The patient is 45-year-old female who presented to the emergency room with left ankle/foot pain. The patient states prior to the arrival she slid down the steps. She states was 4-5 steps. She denies hitting her head. Denies any headache, denies any neck pain. She denies any back pain. She points for the pain on the proximal/dorsal aspect of the foot/ankle region anteriorly. The patient denies taking any medication prior to the arrival. She denies any other associated symptoms. Review of Systems Additional ROS info: Except as noted in the above Review of Systems and in the History of Present Illness all other systems have been reviewed and are negative or noncontributory. Physical Exam Vitals & Measurements T: 36.8 ?C(Oral) HR: 84(Peripheral) RR: 18 BP: 134/86 SpO2: 96% HT: 158 cm HT: 158.0 cm WT: 130 kg WT: 130.0 kg BMI: 52.07 General: alert, no acute distress Skin: warm, dry Head: no trauma, normocephalic Neck: Trachea midline, no tenderness, supple Eye: normal conjunctiva, sclera clear Cardiovascular: regular rate and rhythm Respiratory: Lungs CTA, respirations non labored, breath sounds equal Back: No tenderness, Normal ROM Extremities: no deformity, there is mild swelling on the dorsal aspect of the left foot proximally close to the ankle/malleolar zone. No tenderness proximal fibula. There is tenderness on the proximal foot/ankle area. Neurological: Alert and oriented, speech normal, no focal neuro deficits Psychiatric: cooperative, affect appropriate for age, Medical Decision Making Patient presented with left foot/ankle injury. She has an avulsion fracture of the left ankle. More likely she sprained her foot as well. Air splint postop shoe and crutches was given. Patient was given Jackson in the emergency room. Will discharge patient home with Jackson and follow-up with Ortho. The OARRS report reviewed. There is no red flags for narcotic abuse. The patient is instructed to return to the emergency room if her pain gets worse or any new symptoms. Assessment/Plan 1. Avulsion fracture of left ankle (S82.892A: Other fracture of left lower leg, initial encounter for closed fracture) Ordered: acetaminophen-hydrocodone, 1 tab(s), Oral, q6hr as needed for pain, 10 tab(s), Refill(s) 0, [id number], 158, cm, 11/05/21 13:26:00 EDT, Height/Length Dosing, 130, kg, 11/05/21 13:26:00 EDT, Weight Dosing 2. Sprain of left foot (S93.602A: Unspecified sprain of left foot, initial encounter) Orders: acetaminophen-hydrocodone, 1 tab(s), Tab, Oral, Once, Stop date 11/05/21 15:14:00 EDT, STAT, Start date 11/05/21 15:14:00 EDT Air Cast Crutches Post-op Shoe XR Ankle 3+ Views Left XR Foot 3+ Views Left Medications Administered Given Jackson 5/325 Tab, 1 tab(s), Oral Disposition Plan Patient Discharge Condition Stable Discharge Disposition Discharged home Discharge Prescription List Prescriptions Jackson 325 mg-5 mg oral tablet, 1 tab(s), Oral, q6hr, PRN Follow-up With When Contact Information Em Mir In 3 days 11/08/2021 EDT [address] [place] [address]- Business (1) Additional Instructions: Return to the emergency room if your pain gets worse or any new symptoms. FRANCOISE BARNES In 3 days [address] [place] [address]- Business (1) Additional Instructions: Patient Education Crutch Use, Adult How to Use a Stirrup Ankle Brace How to Use a Cast Shoe Foot Sprain Ankle Fracture Problem List/Past Medical History Ongoing Abnormal uterine bleeding (AUB) Asthma Benign essential HTN Bipolar disorder DM2 (diabetes mellitus, type 2) GERD without esophagitis H/O psychosis Historical DM HTN Iron deficiency Schizoaffective disorder Procedure/Surgical History Hysteroscopy with endometrial ablation (09/24/2019), History of bariatric surgery (01/2017), History of knee surgery (07/2009), History of knee surgery (03/2005), History of knee surgery (03/2004), History of knee surgery (07/1999), Excision of tonsil (03/1996). Medications Inpatient No active inpatient medications Home Wes Maintena Prefilled Syringe 400 mg intramuscular injection, extended release, 1, IntraMuscular, qMonth busPIRone 30 mg oral tablet, 30 mg= 1 tab(s), Oral, BID Imitrex 25 mg Tab, 25 mg= 1 tab(s), Oral, q6hr, PRN Lamictal 100 mg Tab, 100 mg= 1 tab(s), Oral, Daily Jackson 325 mg-5 mg oral tablet, 1 tab(s), Oral, q6hr, PRN ondansetron 4 mg/5 mL oral solution Prozac 20 mg Cap, 20 mg= 1 cap(s), Oral, Daily Prozac 40 mg Cap, 40 mg= 1 cap(s), Oral, Daily Qvar with Dose Counter 80 mcg/inh inhalation aerosol ranitidine 150 mg Tab, 150 mg= 1 tab(s), Oral, BID SEROquel 100 (more content not included)... Normal [facility] Comment on above: Result Comment: Elec tronically Signed By: Trinity Novoa, Tyler Petersen\.br\Date and Time Signed: 11/05/21 15:39 EDT ED Patient Education Noteon 11-05-2021 ED Patient Education Note Orthopedics Crutch Use, Adult Crutches are used to take weight off of one of your legs or feet when you stand or walk. You may need crutches to help heal after an injury or procedure. It is important to use crutches that fit properly. When fitted properly: ? Each crutch should be 2?3 finger widths below the armpit. ? Your weight should be supported by your hand, and not by resting the armpit on the crutch. It is important that a health care provider has seen you use crutches effectively before you use them at home. What are the risks? Improper use of crutches can injure your shoulders, arms, back, armpits, and hands. To prevent this from happening, make sure your crutches fit properly and do not put pressure on your armpits when using them. While using crutches you also have a higher risk of falling. To prevent falls while using crutches at home or work: ? Move furniture or barriers that are in your walkway when possible. Have someone help you with this as needed. ? Keep walkways well-lit. ? Use a backpack so you do not need to carry items in your hands. ? Remove rugs, cords, and other items from the floor that you can trip on. How to use your crutches How you will use your crutches will depend on the reason you need them. Your health care provider may tell you not to put any weight on the affected leg (non?weight-bearing). Or, your health care provider may allow you to put some, but not all, weight on the affected leg (partial weight-bearing). Follow instructions from your health care provider about weight-bearing. Do not bear weight in an amount that causes pain to the affected area. Walking 1. Stand on your healthy leg and lift both crutches at the same time. 2. Place the crutches one step-length in front of you. 3. Bring your healthy leg forward to meet, or land slightly ahead of, the crutches. 4. Repeat. Going up steps If there is no handrail: 1. Step up with the healthy leg. 2. Step up with the crutches and injured leg. 3. Repeat. If there is a handrail: 1. Hold both crutches in one hand. 2. Place your other hand on the handrail. 3. Place your weight on your arms and step up with your healthy leg. 4. Bring the crutches and the injured leg up to that step. 5. Continue in this way. If you feel unsteady on steps, you can go up steps on your bottom. To go up, sit on the lowest step with your injured leg in front and holding both crutches flat against the stairs in the other hand. Then use your free hand and your healthy leg for support to scoot your bottom up to the next step. Going down steps If there is no handrail: 1. Step down with the injured leg and crutches. 2. Step down with the healthy leg. 3. Repeat. If there is a handrail: 1. Place your hand on the handrail. 2. Hold both crutches with your free hand. 3. Lower your injured leg and crutch to the step below you. Make sure to keep the crutch tips in the center of the step, not on the edge. 4. Lower your healthy leg down to the next step. 5. Repeat. If you feel unsteady on steps, you can down steps on your bottom. To go down, sit on the highest step with your injured leg in front and holding both crutches flat against the stairs in the other hand. Then use your free hand and your healthy leg for support to scoot your bottom down to the next step. Standing up 1. Hold the injured leg forward. 2. Grab an armrest with one hand and the top of the crutches with the other hand. 3. Using the armrest and your crutches, pull yourself up to a standing position. Sitting down 1. Hold the injured leg forward. 2. Grab the armrest with one hand and the top of the crutches with the other hand. 3. Slowly lower yourself to a sitting position. Contact a health care provider if: ? You feel unsteady using crutches. ? You develop any new pain. ? You develop any numbness or tingling. ? Your crutches do not fit. Get help right away if: ? You fall. This information is not intended to replace advice given to you by your health care provider. Make sure you discuss any questions you have with your health care provider. Document Released: 08/04/2001 Document Revised: 07/20/2018 Document Reviewed: 01/27/2017 [employer] Patient Education ? 2020 [employer] How to Use a Stirrup Ankle Brace A stirrup ankle brace is used to provide stability to an injured ankle so it can heal. It may be put on after an ankle injury, such as an ankle strain or sprain. It may also be put on after a cast around the ankle has been removed. A stirrup ankle brace can be worn comfortably inside most athletic shoes. An ankle brace is made of stiff material that fits under the arch of the foot and goes up the sides of the leg. The liner of the brace may be made of a soft gel-like material, or it may be inflatable. The liner lets the bra (more content not included)... Normal [facility] ED Patient Summaryon 022 ED Patient Summary [facility] [address] [place], [place] [address] Patient Discharge Instructions Person Information Name: MARILEE ARRIAGA Age: 45 Years Arrival Date: 11/05/2021 13:19:01 Discharge Diagnosis: 1:Avulsion fracture of left ankle; 2:Sprain of left foot Primary Care Physician: FRANCOISE GAY Provider Information Primary Provider: Tyler Petersen M.D. Advanced Puppy Sitter:None The exam and treatment you received in the Emergency Department were for an urgent problem and are not intended as complete care. It is important that you follow up with a doctor, nurse practitioner, or physician?s circulation assistant for ongoing care. If your symptoms become worse or you do not improve as expected and you are unable to reach your usual health care provider, you should return to the Emergency Department. We are available 24 hours a day. MARILEE ARRIAGA has been given the following list of patient education materials, prescriptions and follow-up instructions: Follow-up Instructions: With: Address: When: [address] [place] [id number] Business (1) In 3 days 11/08/2021 Comments: Return to the emergency room if your pain gets worse or any new symptoms. With: Address: When: FRANCOISE BARNES [address] [place], [place] [id number] Business (1) In 3 days In the event that this physician does not participate in your insurance network, please consult with your insurance company to find a nearby participating provider. Patient Education Materials: Crutch Use, Adult; How to Use a Stirrup Ankle Brace; How to Use a Cast Shoe; Foot Sprain; Ankle Fracture A MESSAGE TO ALL PATIENTS REGARDING OPIOIDS PRESCRIPTION OPIOIDS: WHAT YOU NEED TO KNOW Prescription opioids can be used to help relieve mpffzgaf-tr-ffwzgf pain and are often prescribed following a surgery or injury, or for certain health conditions. These medications can be an important part of the treatment but also come with serious risks. It is important to work with your healthcare provider to make sure you are getting the safest, most effective care. WHAT ARE THE RISKS AND SIDE EFFECTS OF OPIOID USE? Prescription opioids carry serious risks of addiction and overdose, especially with prolonged use. An opioid overdose, often marked by slowed breathing, can cause sudden . The use of prescription opioids can have a number of side effects as well, even when taken as directed: ? Tolerance?meaning you might need to take more of the medication for the same pain relief ? Physical dependence?meaning you have symptoms of withdrawal when a medication is stopped ? Increased sensitivity to pain ? Constipation ? Nausea, vomiting, and dry mouth ? Sleepiness and dizziness ? Confusion ? Depression ? Low levels of testosterone that can result in lower sex drive, energy, and strength ? Itching and sweating RISKS ARE GREATER WITH: ? History of drug misuse, substance use disorder, or overdose ? Mental health conditions (such as depression or anxiety) ? Sleep apnea ? Older age (65 years and older) ? Avoid alcohol while taking prescription opioids. Also, unless specifically advised by your health care provider, medications to avoid include: ? Benzodiazepines (such as Xanax or Valium) ? Muscle relaxants (such as Soma or Flexeril) ? Hypnotics (such as Ambien or Lunesta) ? Other prescription opioids KNOW YOUR OPTIONS Talk to your health care provider about ways to manage your pain that don?t involve prescription opioids. Some of these options may actually work better and have fewer risks and side effects. Options may include: ? Pain relievers such as acetaminophen, ibuprofen, and naproxen ? Some medication that are also used for depression or seizures ? Physical therapy and exercise ? Cognitive behavioral therapy, a psychological, goal-directed approach, in which patients learn how to modify physical, behavioral, and emotional triggers of pain and stress. IF YOU ARE PRESCRIBED OPIOIDS FOR PAIN: ? Never take opioids in greater amounts or more often than prescribed. ? Follow up with your primary health care provider. o Work together to create a plan on how to manage your pain. o Talk about ways to help manage your pain that don?t involve prescription opioids. o Talk about any and all concerns and side effects. ? Help prevent misuse and abuse o Never sell or share prescription opioids. o Never use another person?s prescription opioids. ? Store prescription opioids in a secure place and out of reach of others (this may include visitors, children, friends, and family). ? Safely dispose of unused prescription opioids: Find your community drug take-back program or your pharmacy mail-back program, or flush them down the toilet, following guidance from the Food and Drug Administration (www.fd (more content not included)... Normal [facility] XR Ankle 3+ Views Lefton XR Ankle 3+ Views Left Exam Date/Time: 11/05/2021 13:50 EDT Reason for Exam: Fall Report IMPRESSION: Possible tiny avulsed fracture fragment along the dorsal aspect of the talus near the articulation with the cuneiforms. Recommend correlation for point tenderness. EXAMINATION/TECHNIQUE: XR Ankle 3+ Views Left, 3+ views left foot HISTORY: Tripped down steps with left foot pain over the metatarsals and ankle pain. COMPARISON: None RESULT: Left ankle/foot: Soft tissue edema about the ankle and foot. Ankle mortise appears intact. Well-corticated density along the dorsal aspect of the talonavicular joint, chronic appearing. Ill-defined density along the dorsal aspect of the talus near the articulations with the cuneiforms. This may represent avulsed fragment or could be chronic. Recommend correlation for point tenderness. Otherwise no evidence for fracture. No dislocation. Mild scattered degenerative changes. Plantar calcaneal enthesophyte. No other significant abnormality. FINAL REPORT Dictated: 11/05/2021 2:04 pm Rony Barnett MD Signed (Electronic Signature): 11/05/2021 2:04 pm Signed by: Rony Barnett MD Transcribed by: KAIDEN Technologist: Normal [facility] XR Foot 3+ Views Lefton 10-19 XR Foot 3+ Views Left Exam Date/Time: 11/05/2021 13:50 EDT Reason for Exam: Fall Report Refer to concurrent left ankle radiograph dictation. FINAL REPORT Dictated: 11/05/2021 2:04 pm Rony Barnett MD Signed (Electronic Signature): 11/05/2021 2:04 pm Signed by: Rony Barnett MD Transcribed by: KAIDEN Technologist: RH Normal [facility] MRI BRAIN W WO CONTRASTon MRI BRAIN W WO CONTRAST MRI BRAIN WITHOUT AND WITH IV CONTRAST:COMPARISONS: NONECLINICAL HISTORY: Headaches, paresthesias and auditory hallucinations. Left occipital headaches for 6 months. Occasional dizziness. Abnormal vision right eye. Numbness right arm.TECHNIQUE: Multiplanar, multi-sequence MRI was performed on a 1.2Tesla open magnet. 20 mL of ProHance contrast were given intravenously.FINDINGS: There are no abnormal sites of restricted diffusion. The ventricles are normal in position. There is no evidence for intraaxial or extraaxial hemorrhage. There is no evidence for mass effect. There is no shift of the midline structures. There are no definite areas of demyelination within the white matter. There is no significant atrophy. Flow-voids in the major intracranial blood vessels are identified and are patent by spin-echo criteria. No abnormal sites of enhancement.The paranasal sinuses are clear. Mastoid air cells are clear. The seventh and eighth nerve complexes and optic nerves are symmetrical. No evidence for mass in the cerebellopontine angle. The corpus callosum has a normal appearance. The cerebellar tonsils are not ectopic. The pituitary gland is unremarkable. Optic nerves are symmetrical. The calvarium and dura are unremarkable. There is hypertrophy of nasal turbinates, consistent with rhinitis.IMPRESSION: NO EVIDENCE OF ACUTE CVA, HEMORRHAGE OR MASS EFFECT.NO ABNORMAL SITES OF DEMYELINATION.RHINITIS.Interpr eted by:SUMANTH Garicaigned by:Margo Mendez MD02/13/18inal result Normal [facility] CNDSon 02-16-2017 CNDS HNO ID: [id number] thor: Mark Anthony (Romain) SheldonugaService: General SurgeryAuthor Type: ResidentType: Discharge SummariesFiled: 02/16/2017 11:44 AMNote Text:[facility] [place] [phone] or [phone] [facility] O N F I D E N T I A L I N F O R M A T I O N -----[facility] DOCUMENTDISCHARGE SUMMARYPatient Name: Marilee Buckner Date: 02/13/2017Discharge Date: 02/16/2017Attending Physician: Eleni Pfeiffer Diagnosis: Morbid obesitySecondary Diagnoses:Patient Active Hospital Problem List: Obesity, Class III, BMI >= 40 (morbid obesity) ([facility]) E66.01 (02/12/2017) Morbid obesity ([facility]) (02/13/2017)Operations During Hospitalization:Laparoscopic Crystal en Y gastric bypass and EGDProcedures Performed While Hospitalized:IntubationReason for Hospitalization:Surgical management of morbid obesity and post-op careHospital Course:Patient was admitted to the hospital for the above noted reason,subsequently taken to the operating room the same day, and underwent theabove noted surgery without complications. Patient was then taken to thepost-anesthesia care unit (PACU) for full recovery following theprocedure. Patient subsequently went to the regular nursing unit wherepost-operative pain was adequately managed with a combination of oral andintravenous modalities, until only oral regimen was needed. Patient's dietwas resumed with Phase 1 bariatric diet and sequentially advanced astolerated to Phase 2 bariatric diet, with good bowel function. Initialpost-operative nausea was progressively brought under control withmultimodal antinausea regimen.Patient noted some bloody BMs morning of post-operative day 2 thatresolved spontaneously with no significant drop in hemoglobin levels onrecheck of labs the same evening. Lovenox and Toradol were discontinueddue to this, with instructions to resume Lovenox morning followingdischarge.Adequate prophylactic measures were taken (optimized ambulation, incentivespirometry, sequential compression devices and subcutaneousanticoagulation - till POD 2) throughout patient's hospital stay.After full recovery and meeting discharge criteria, patient was dischargedwith appropriate post-hospital care and follow-up instructions, as well asadequate pain control regimen.Patient Condition at Discharge: ImprovedPrimary admitting service: General SurgeryConsulting service(s): NoneDischarge Disposition:HomeInformation Provided to the Patient:Patient given copy of Discharge InstructionsPost-bariatric surgery dietary instructionsResume prophylactic Lovenox (for 28-days post-discharge) on morningfollowing discharge dayDischarge Medications: Current Discharge Medication ListCONTINUE these medications which have NOT CHANGEDbusPIRone (BUSPAR) 30 mgTake 30 mg by mouth three times daily.Refills: 0losartan (COZAAR) 50 mgTake 50 mg by mouth once daily.Refills: 0metoprolol tartrate (short acting) (LOPRESSOR) 50 mgTake 50 mg by mouth twice daily.sertraline (ZOLOFT) 50 mgTake 50 mg by mouth once daily.NAPROXEN SODIUM (ALEVE ORAL) 2 tabletsTake 2 tablets by mouth once daily.ACETAMINOPHEN (TYLENOL ORAL) 2 tabletsTake 2 tablets by mouth once daily.BECLOMETHASONE DIPROPIONATE (QVAR INHALATION) 1 PuffInhale 1 Puff as instructed twice daily.ursodiol (ACTIGALL) 300 mgTake 300 mg by mouth twice daily. TAKE 1 (ONE) TABLET TWICE DAILY WITHMEALSQty: 60 capsule Refills: 5oxyCODONE (ROXICODONE) 5 mg/5 mL oral solutionTAKE 5-10 ML EVERY 6 HOUR NEEDED FOR PAINQty: 200 mL Refills: 0ondansetron orally disintegrating (ZOFRAN ODT) 4 mgTake 4 mg by mouth every 6 hours as needed.Qty: 15 tablet Refills: 1scopolamine (TRANSDERM-SCOP) 1 PatchApply 1 Patch as directed every 72 hours.Qty: 3 Patch Refills: 0Omeprazole 1 capsuleTake 1 capsule by mouth once daily.Qty: 90 capsule Refills: 1enoxaparin (LOVENOX) 60 mgInject 60 mg subcutaneously q 12 HR.Qty: 16.8 mL Refills: 0cyanocobalamin (VITAMIN B-12) 500 mcgTake 500 mcg by mouth once daily.Qty: 30 tablet Refills: 6cholecalciferol (VITAMIN D3) 2,000 UnitsTake 2,000 Units by mouth once daily.Qty: 30 tablet Refills: 6metFORMIN ER (GLUMETZA) 500 mgTake 500 mg by mouth twice daily with meals.NORGESTIMATE-ETHINYL ESTRADIOL (SPRINTEC, 28, ORAL) 1 tabletTake 1 tablet by mouth once daily.traMADol (ULTRAM) 50 mgTake 50 mg by mouth as needed.tiZANidine (ZANAFLEX) 4 mgTake 4 mg by mouth daily at bedtime.albuterol HFA (PROVENTIL HFA, VENTOLIN HFA) 2 PuffsInhale 2 Puffs as instructed as needed.Future Appointments:Future AppointmentsDate Time Provider Department Eva02/23/2017 2:30 PM [id number] LUNDBERGBMI GENS A/M 03/09/2017 11:00 AM [id number], KASEY (PHD) GSPSMN GENS A/M 03/16/2017 12:00 PM [id number] 2 GENBMI GENS A/M D04/06/2017 1:45 PM [id number] LUNDBERG GENBMI GENS A/M D05/16/2017 10:30 AM [id number] TAM GENBMI GENS A/M D05/16/2017 10:30 AM [id number] TAM GENBMI GENS A/M BLDPatient will follow-up in clinic with Renée Lopez MD as scheduledabove, or sooner if the need arises.Electronically SIGNED by Licensed Independent Practitioner: Mark Anthony Jean MD Normal [facility] Glucose POCT ([facility], [place], [place] A Use Only)on 02-16-2017 Glucose mass conc 105 mg/dL High 65-100 [facility] Comment on above: Performed By: #### G LUP ####[facility] [place], [place] [phone] NURSING PROGon 02-16-2017 NURSING PROG HNO ID: [id number] thor: Lilibeth Ortega (Rn) Racquel Santosice: (none)Author Type: Registered NurseType: Nursing Progress NoteFiled: 02/16/2017 11:37 AMNote Text: Nursing Progress NotePatient Name: Marilee SmithBEBETO: [id number] Location: [place] [id number] Da nena Note: Patient has been discharged home; she was asked to stay tillafter lunch or so but she declined because her ride was hear and she hadto go to work. She knows to start lovenox tomorrow at home, scripts arefilled, she did well with phase 2 diet ate all of yoghurt and nutritionalsupplement, VSS, on RA, no nausea, ready for discharge home in stablecondition.This note was completed by: Lilibeth Santos RN [facility] NURSING PROG HNO ID: [id number] thor: Lilibeth Ortega (Rn) Danielle, SUNSHINEervice: (none)Author Type: Registered NurseType: Nursing Progress NoteFiled: 02/16/2017 10:27 AMNote Text: Nursing Progress NotePatient Name: Marilee Tinsley SonalN: [id number] Location: [place] [address]/[id number] Da nena Note: Doing better this am, able to take all of pills and drink theKphos, took a shower, so taking in more po, pain controlled, no emesis, nomore bloody stool, ambulating VSS, on RA, expecting to go home today,continue to monitor.This note was completed by: Lilibeth Santos RN [facility] PROGRESSon 02-16-2017 PROGRESS HNO ID: [id number] thor: Hiram (Romain) Teresitaice: General SurgeryAuthor Type: ResidentType: Progress NotesFiled: 02/16/2017 8:02 AMNote Text:General Surgery Progress NoteName: Marilee OlivierHesham: [id number]: 02/16/2017SUBJECTIVESubjective: No acute events overnight. Last melenotic stool was yesterdayearly afternoon. Since had a nonbloody BM. Estimates that she took inabout 1 L of water, G2 and broth.Medications:Current hospital medications:potassium-sodium phosphates 1 Packet (NEUTRA-PHOS,PHOS-NAK) 1 Packet ORALPC and HSoxyCODONE 5-10 mg oral liquid (ROXICODONE) 5-10 mg ORAL q 4 H PRNscopolamine - REMOVE PATCH OTHER q 72 HRscopolamine - VERIFY patch OTHER q 8 Hpromethazine 25 mg in NaCl 0.9% 50 mL (PHENERGAN) 25 mg INTRAVENOUS q 6 HPRNprochlorperazine 10 mg injection (COMPAZINE) 10 mg INTRAVENOUS q 6 H PRNfamotidine 20 mg injection (PEPCID) 20 mg INTRAVENOUS BIDdiphenhydrAMINE 25 mg injection (BENADRYL) 25 mg INTRAVENOUS q 6 H PRNbusPIRone 30 mg tab(s) (BUSPAR) 30 mg ORAL TIDscopolamine 1.5 mg (1 mg over 3 days) 1 Patch (TRANSDERM-SCOP) 1 PatchTRANSDERMAL q 72 HRlosartan 50 mg tab(s) (COZAAR) 50 mg ORAL DAILYmetoprolol tartrate (short acting) 50 mg tab(s) (LOPRESSOR) 50 mg ORAL BIDsertraline 50 mg tab(s) (ZOLOFT) 50 mg ORAL DAILYondansetron (PF) 4 mg injection (ZOFRAN) 4 mg INTRAVENOUS q 6 Hacetaminophen 650 mg tab(s) (TYLENOL) 650 mg ORAL q 6 Hdextrose 40 % 15 g (INSTA-GLUCOSE) 15 g ORAL PRNglucagon 1 mg injection (GLUCAGEN) 1 mg INTRAMUSCULAR PRNdextrose 50% in water 25 mL syringe 12.5 g INTRAVENOUS PRNinsulin lispro injection (rapid acting) (HumaLOG) SUBCUTANEOUS w MEALSOBJECTIVEPhysical exam: BP 136/63 Pulse 71 Temp 36.8 ?C (98.3 ?F) (Oral) Resp17 Ht 154.9 cm (5' 1 ) Wt (!) 150.6 kg (332 lb) LMP 01/27/2017 SpO2 94% BMI 62.73 kg/r4Aysptq/Output Summary (Last 24 hours) at 02/16/17 0759Last data filed at 02/16/17 0616 Gross per 24 hourIntake 290 mlOutput 950 mlNet -660 mlGeneral: NAD, alert, orientedLungs: nonlabored breathing on nasal canulaAbdomen: soft, nondistended, appropriately tender, incisions C/D/IExtremities: warm, well perfusedLabsCBCRecent Labs 02/15/1709WBC 13.80* 11.75* 15.32* 15.53*HB 10.7* 10.9* 13.5 14.7HCT 32.6* 33.8* 40.2 44.1PLT 391 368 438* 479*BMPRecent Labs 02/14/1705NA 141 137 137 138K 4.2 4.5 4.0 4.6CHLOR 104 99 97 97*CO2 27 25 20* 24BUN 15 8 14 19CREAT 0.78 0.71 0.74 0.84GLUC 119* 115* 96 79CA 8.1* 8.8 9.9 9.4ASSESSMENT/PLAN41 year old female with morbid obesity now POD 3 s/p bfojpxihkzviKvaf-bj-D gastric bypass. Bloody bowel movements resolved with stable H/H.- Phase 2 bariatric diet- Heplock IV- Wean O2- PO pain meds, hold toradol- Will discuss resuming DVT prophylaxis- Encourage incentive spirometry and ambulation- Anticipate discharge today on home Richelle Gordon MDDec[facility] Surgery ResidentPager [phone] Normal [facility] Basic Metabolic Panlon 02-15 Anion gap 10 mmol/L Normal 9-18 [facility] Comment on above: Performed By: #### B MP, MG1, PHOS ####[facility] [place], [place] [phone] Calcium 8.1 mg/dL Low 8.5-10.5 [facility] Comment on above: Performed By: #### B MP, MG1, PHOS ####[facility] [place], [place] [phone] Chloride 104 mmol/L Normal 98-110 [facility] Comment on above: Performed By: #### B MP, MG1, PHOS ####[place] [phone] CO2 27 mmol/L Normal 23-32 [facility] Comment on above: Performed By: #### B VIANCA MG1, PHOS ####[place] [phone] Creatinine 0.78 mg/dL Normal 0.70-1.40 [facility] Comment on above: Performed By: #### B VIANCA MG1, PHOS ####[place] [phone] eGFR (non-black) mL/min/{1.73_m2} Normal >60 [facility] Comment on above: Performed By: #### B VIANCA MG1, PHOS ####[place] [address] Glucose mass conc 119 mg/dL High 65-100 [facility] Comment on above: Performed By: #### B VIANCA MG1, PHOS ####[place] [address] Potassium molar conc 4.2 mmol/L Normal 3.5-5.0 [facility] Comment on above: Performed By: #### B VIANCA MG1, PHOS ####[place] [address] Sodium 141 mmol/L Normal 132-148 [facility] Comment on above: Performed By: #### B VIANCA MG1, PHOS ####[place] [address] Urea nitrogen 15 mg/dL Normal 8-25 [facility] Comment on above: Performed By: #### B MP, MG1, PHOS ####[place] [phone] CBCon 02-15-2017 Erythrocyte distribution width Auto Ratio (RBC) 12.9 % Normal 11.5-15.0 [facility] Comment on above: Performed By: #### C BC ####[place] [phone] Erythrocytes (RBC) 3.63 10*6/uL Low 3.90-5.20 [facility] Comment on above: Performed By: #### C BC ####[place] [phone] Hematocrit (HCT) 33.8 % Low 36.0-46.0 [facility] Comment on above: Performed By: #### C BC ####[place] [phone] Hemoglobin mass conc (Bld) 10.9 g/dL Low 11.5-15.5 [facility] Comment on above: Performed By: #### C BC ####[place] [phone] MCH 30.0 pG Normal 26.0-34.0 [facility] Comment on above: Performed By: #### C BC ####[place] [phone] MCHC mass conc (RBC) 32.2 g/dL Normal 30.5-36.0 [facility] Comment on above: Performed By: #### C BC ####[place] [phone] MCV 93.1 fL Normal 80.0-100.0 [facility] Comment on above: Performed By: #### C BC ####[place] [phone] Platelet mean volume (PMV) 8.5 fL Low 9.0-12.7 [facility] Comment on above: Performed By: #### C BC ####[place] [phone] Platelets 368 10*3/uL Normal 150-400 [facility] Comment on above: Performed By: #### C BC ####[place] [phone] WBC (Leukocytes) 11.75 10*3/uL High 3.70-11.00 [facility] Comment on above: Performed By: #### C BC ####[address] CBC and Differentialon 02-15 Abs Baso 0.02 k/uL Normal 0.00-0.10 [facility] Comment on above: Performed By: #### C BCDIF ####[place] [phone] Abs [place] 0.97 k/uL High 0.00-0.86 [facility] Comment on above: Performed By: #### C BCDIF ####[address] Abs Neut 8.11 k/uL High 1.45-7.50 [facility] Comment on above: Performed By: #### C BCDIF ####[address] Basophils/100 WBC Auto (Bld) 0.1 % Normal [facility] Comment on above: Performed By: #### C BCDIF ####[address] DTYPE Auto Diff Normal [facility] Comment on above: Performed By: #### C BCDIF ####[place] [phone] Eosinophils 0.35 10*3/uL Normal 0.00-0.45 [facility] Comment on above: Performed By: #### C BCDIF ####[address] Eosinophils/100 leukocytes 2.5 % Normal [facility] Comment on above: Performed By: #### C BCDIF ####[address] Erythrocyte distribution width Auto Ratio (RBC) 13.1 % Normal 11.5-15.0 [facility] Comment on above: Performed By: #### C BCDIF ####[place] [phone] Erythrocytes (RBC) 3.51 10*6/uL Low 3.90-5.20 [facility] Comment on above: Performed By: #### C BCDIF ####[place] [phone] Hematocrit (HCT) 32.6 % Low 36.0-46.0 [facility] Comment on above: Performed By: #### C BCDIF ####[place] [phone] Hemoglobin mass conc (Bld) 10.7 g/dL Low 11.5-15.5 [facility] Comment on above: Performed By: #### C BCDIF ####[place] [phone] Lymphocytes 4.35 10*3/uL High 1.00-4.00 [facility] Comment on above: Performed By: #### C BCDIF ####[place] [phone] Lymphocytes/100 leukocytes 31.5 % Normal [facility] Comment on above: Performed By: #### C BCDIF ####[place] [phone] MCH 30.5 pG Normal 26.0-34.0 [facility] Comment on above: Performed By: #### C BCDIF ####[place] [phone] MCHC mass conc (RBC) 32.8 g/dL Normal 30.5-36.0 [facility] Comment on above: Performed By: #### C BCDIF ####[place] [phone] MCV 92.9 fL Normal 80.0-100.0 [facility] Comment on above: Performed By: #### C BCDIF ####[place] [phone] Monocytes/100 leukocytes 7.0 % Normal [facility] Comment on above: Performed By: #### C BCDIF ####[place] [phone] Neutrophils/100 WBC Auto (Bld) 58.9 % Normal [facility] Comment on above: Performed By: #### C BCDIF ####[place] [phone] Platelet mean volume (PMV) 8.3 fL Low 9.0-12.7 [facility] Comment on above: Performed By: #### C BCDIF ####[place] [phone] Platelets 391 10*3/uL Normal 150-400 [facility] Comment on above: Performed By: #### C BCDIF ####[place] [phone] WBC (Leukocytes) 13.80 10*3/uL High 3.70-11.00 [facility] Comment on above: Performed By: #### C BCDIF ####[place] [phone] Glucose POCT ([facility], [place], [place] A Use Only)on 02-15-2017 Glucose mass conc 111 mg/dL High [address] Comment on above: Performed By: #### G LUPOC ####[place] [phone] Glucose mass conc 121 mg/dL High [address] Comment on above: Performed By: #### G LUPOC ####[place] [phone] Glucose mass conc 99 mg/dL Normal [address] Comment on above: Performed By: #### G LUPOC ####[place] [phone] Glucose mass conc 116 mg/dL High [address] [place] [address] Comment on above: Performed By: #### G LUPOC ####[place] [phone] Magnesiumon 02-15-2017 Magnesium 2.0 mg/dL Normal 1.7-2.6 [facility] Comment on above: Performed By: #### B VIANCA MG1WILL ####[facility] [place], [place] [phone] NURSING PROGon 02-15-2017 NURSING PROG HNO ID: [id number] thor: Lilibeth Ortega (Rn) Doroteo Santos: (none)Author Type: Registered NurseType: Nursing Progress NoteFiled: 02/15/2017 4:15 PMNote Text: Nursing Progress NotePatient Name: Marilee OlivierJustinN: [id number] Location: [place] [address]/[id number] Da nena Note: Dr called to inform that patient had another bloody stool itwas dark red, no change in vital signs HR has remained in 70's, on RA, noincrease in pain, patient is only taking sips of clears otherwiseunchanged , stable, lab orders again @ 1800.This note was completed by: Lilibeth Santos RN [facility] NURSING PROG HNO ID: [id number] thor: Lilibeth Ortega (Rn) Doroteo Santso: (none)Author Type: Registered NurseType: Nursing Progress NoteFiled: 02/15/2017 10:29 AMNote Text: Nursing Progress NotePatient Name: Marilee OlivierJeraldRN: [id number] Location: [place] [address]/[id number] Da nena Note:Patient states she's feeling ok, just brought up some 'phlegm',( clearbubbles) no emesis, able to keep down 'bites' or sips of broth and tea,given IV phenergan, denies pain, encouraged to continue to ambulate,stable, call light in reach.This note was completed by: Lilibeth Santos RN [facility] NURSING PROG HNO ID: [id number] thor: Liliana (Rn) Rolo, RNService: (none)Author Type: Registered NurseType: Nursing Progress NoteFiled: 02/15/2017 5:53 AMNote Text: Nursing Progress NotePatient Name: Marilee OlivierirMRN: [id number] Location: [place] [address]/[id number] Surgery p[id number] Marilee Arriaga: patient had dark bloody BM. pleaseadvise. Thanks, [place] [phone] No new ordersThis note was completed by: Liliana Seth RN [facility] PROGRESSon 02-15-2017 PROGRESS HNO ID: [id number] thor: Mark Anthony (Res) AdenugaService: General SurgeryAuthor Type: ResidentType: Progress NotesFiled: 02/15/2017 8:25 AMNote Text:General SurgeryProgress notesAdmitted: 02/13/2017OR date: 02/13/2017 Procedure(s) and Anesthesia Type: * LAPAROSCOPIC GASTRIC RESTRICTIVE SURG W/ BYPASS AND CRYSTAL-EN-Y = 40 (morbid obesity) ([facility]) E66.01 (02/12/2017) Morbid obesity ([facility]) (02/13/2017)Hold Lovenox/Toradol, recheck labs, decrease IVFPain control: Tylenol PO Q6, Celebrex/Gabapentin, PO AND IV narcotic regimenas needed, toradolCV-Heme: HDS, no issuesResp: OOB often, deep breathing / ISGU-FE: No khan, good UO, low PO, decrease IVF to 75GI/Nutrition: Bariatric phase 1 now, possible phase 2 later today,antiemetics - Scopolamine, Zofran, compazine, PPIID: No abtx indicatedPPX: SCDs for DVT ppx, LVX held due to bloody BMsEndo: ISS with good BG controlDispo: Continue RNF, potential discharge tomorrowPaul MD Ted (PGY 2)[id number] 6PM weekdays and all through weekends: [id number] SNausea and emesis yesterday, improving and PO intake improvingSlept okayDark bloody BMs this AMAmbulating well OTemp (24hrs), Av.7 ?C (98 ?F), Min:36.4 ?C (97.6 ?F), Max:36.9 ?C(98.4 ?F)BP 147/78 Pulse 80 Temp 36.4 ?C (97.6 ?F) (Oral) Resp 16 Ht 154.9cm (5' 1 ) Wt (!) 150.6 kg (332 lb) LMP 01/27/2017 SpO2 99% BMI62.73 kg/k5LNESGCZ: Mild distress as actively nauseated and sitting up with vomitbag, alert and oriented x 3HEENT: NC/AT, EOM's intactRESPIRATORY: Respiratory effort unlaboredCHEST-CVS: HDSABDOMEN: Soft, obese and non distended, non tender, laparoscopic incisionsCDI with glueNEURO: Grossly non-focal02/14 0700 - 02/15 0659In: 3622 [PO:300; IV:3322]Out: 2180 [Urine:1850] Normal [facility] PROGRESS HNO ID: [id number] thor: Renée LopezService: General SurgeryAuthor Type: PhysicianType: Progress NotesFiled: 02/15/2017 7:52 AMNote Text:BARIATRIC STAFFDry heaves yesterday when drinking, no nausea.Doesn't feel bloated or illHad dark bloody BM x 2 this morningSitting up, looks wellAfeb, HR 80's, VSSAbd softA/P Likely staple line bleeding from JJ anastomosis, usually this is selflimiting. Will hold Toradol and Lovenox today, recheck labs Dysphagia is secondary to GJ edema, will need another day toadvance PO intake Decrease IVF's as PO intake improvesStacy Gale Lopez MD Normal [facility] Phosphoruson 02-15-2017 Phosphate 1.9 mg/dL Low 2.5-4.5 [facility] Comment on above: Performed By: #### B MP, MG1, PHOS ####[facility] [place], [place] [phone] Vital Signs Date Time Vital Sign Value Performing Clinician Faci lity 09-19-2023 09:41-0500 Body height 157.48 cm [facility] 09-19-2023 09:41-0500 Body weight 104.32 kg [facility] Encounters Encounter Date Encounter Type Care Provider Facility Start: 09-25-2023 Refill Francoise Barnes PA Work Phone: [facility] Comment on above: Chronic pain of both knees Start: 09-19-2023 End: 09-19-2023 ambulatory Simona Szymanski Facility:[facility] Start: 09-19-2023 End: 09-19-2023 ambulatory NON STAFF [facility] Work Phone: Start: 09-19-2023 End: 09-19-2023 Patient encounter procedure [facility] [place] Work Phone: Start: 08-05-2023 End: 08-05-2023 ambulatory FRANCOISE BARNES Not Available Start: 07-26-2023 End: 07-26-2023 ambulatory FRANCOISE BARNES Not Available Start: 07-17-2023 ambulatory Jamey Minor acility:[facility] Start: 07-17-2023 [facility] Start: 06-05-2023 End: 06-06-2023 ambulatory Najma Kilpatrickitis Facility:[facility] Start: 05-01-2023 End: 05-02-2023 ambulatory And[facility]aira [facility]itis [facility] Start: 04-03-2023 End: 04-04-2023 ambulatory Andabimaelus Claudioytadrian Kilpatrickitis [facility] Start: 02-27-2023 End: 02-28-2023 ambulatory Andzaira Snyderytadrian Kilpatrickitis [facility] Start: 02-13-2023 End: 02-14-2023 ambulatory Andrius Claudioytadrian Kilpatrickitis Facility:[facility] Start: 11-07-2022 End: 11-08-[address] FRANCOISE BARNES Facility: Start: 06-27-2022 End: 06-27-2022 ambulatory SUNSHINE Keller Facility: Start: 04-27-2022 End: 10-26-2022 ambulatory FRANCOISE BARNES Facility:[facility] [place] [place] Start: 04-22-[address] FRANCOISE BARNES Facil ity:H1 Start: 11-05-2021 End: 11-05-2021 Emergency department patient visit Scoobyguido [facility] Facility:[facility] [place] [place] Start: 09-18-2018 Patient encounter procedure Ida Weber Facility:[id number] Start: 05-08-2018 Patient encounter procedure Ida Weber Facility:[id number] Start: 02-13-2018 End: 02-16-2018 Ambulatory FRANCOISE BARNES [facility] Start: 12-19-2017 Patient encounter procedure Ida Weber Facility:[id number] Procedures Date Procedure Procedure Detail Performing Clinician Start: 09-19-2023 MR lumbar spine wo con Start: 09-19-2023 XR pre/post mri xray Start: 02-10-2023 Mammography Francoise Barnes PA Work Phone: Start: 02-13-2018 Mri brain brain stem w/o w/contrast material FRANCOISE BARNES 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 Plan of Treatment Date Care Activity Detail Author Start: 02-18-2024 Influenza vaccination Influenza Vacc ine (#1) [facility] Comment on above: Postponed from 04/21 (Patient Refused) Start: 02-11-2024 Screening for malign ant neoplasm of breast Mammogram [facility] Start: 10-25-2023 End: 10-25-2023 Patient encounter procedure 10/25/2023 1:00 PM EST Office Visit [facility] [address] [facility] [address] [place] [phone] Francoise Barnes PA [address] [place] [address] [place] [address] [facility] Start: 12-14-2007 Screening for malign ant neoplasm of cervix [facility] Start: 1998 Screening for malign ant neoplasm of cervix Pap Smear [facility] Start: 1977 Screening for malign ant neoplasm of colon [facility] Immunizations Immunization Date Immunization Notes Care Provider [facility] 05-30-2021 influenza, injectabl e, quadrivalent, preservative free Francoise MARTINEZ Work Phone: [facility] 05-30-2021 influenza virus vacc ine, unspecified formulation Francoise MARTINEZ Work Phone: [facility] 06-12-2020 influenza, injectabl e, quadrivalent, preservative free Francoise MARTINEZ Work Phone: [facility] 12-16-2018 tetanus toxoid, redu brina diphtheria toxoid, and acellular pertussis vaccine, adsorbed Francoise MARTINEZ Work Phone: [facility] Payers Date Payer Category Payer Self-pay [id number] 2022 Medicaid [id number] 2022 Medicaid [place] [employer] [id number] 2022-Present [address] [place] [address] [id number] 2022 Unknown 2018 Unknown [id number] 1977 Unknown [id number] [id number] 1977 Unknown [id number] 2.16.840.1.138667.3.579.2.356 1977 Unknown [id number] 2.16.840.1.087199.3.579.2.356 1977 Unknown [id number] 2.16.840.1.550935.3.579.2.727 1977 Unknown [id number] 2.16.840.1.751867.3.579.2.727 1977 Unknown [id number] 2.16840.1.733767.3.579.2.593 1977 Unknown [id number] 2.16840.1.380522.3.579.2.593 1977 Unknown [id number] 2.840.1.569638.3.579.2.593 1977 Unknown [id number] 2.16840.1.306400.3.579.2.196 1977 Unknown [id number] 2.16840.1.728709.3.579.2.196 1977 Unknown [id number] 2.16840.1.016987.3.579.2.196 1977 Unknown [id number] 2.16840.1.182898.3.579.2.196 1977 Unknown [id number] 2.16.840.1.793121.3.579.2.196 1977 Unknown [id number] 2.16.840.1.441189.3.579.2.1259 1977 Unknown [id number] 2.16.840.1.485881.3.579.2.1259 1959 Unknown [id number] Unknown [id number] 2.16.840.1.929553.3.579.2.531 Unknown [id number] 2.16.840.1.240745.3.579.2.531 Social History Date Type Detail Facility Tobacco smoking stat us NHIS Unknown if ever smoked [facility] Work Phone: Start: 1975 Sex Assigned At Female F [facility] Start: 09-18-2018 End: 01-23-2023 Tobacco smoking status NHIS Never smoked tobacco (finding) [facility] Start: 01-23-2023 Tobacco use and exposure Smokeless tobacco non-user [facility] Start: 07-26-2023 Alcohol intake Ex-drinker (finding) [facility] Start: 01-24-2023 End: 07-26-2023 History of [address] [facility] Start: 01-24-2023 End: 07-26-[address] [facility] Start: 04-26-2023 Alcohol Comment Caffeine intake: sod a [facility] Start: 1975 Sex Assigned At Not on file N [facility] Telephone encounter Note 09-25-2023 Telephone Encounter - MICHELLE Cao - 09/25/2023 10:06 AM EST Note Date & Type Note Facility 09-25-2023 Telephone encount er Note OARRS reviewed, Rx sent into patient's pharmacy. [facility] Note 09-25-2023 Telephone Encounter - MICHELLE Cao - 09/25/2023 10:06 AM EST Note Date & Type Note Facility 09-25-2023 Miscellaneous Notes Formattin g of this note might be different from the original. OARRS reviewed, Rx sent into patient's pharmacy. documented in this encounter [facility] Clinical Note 06-27-2022 Note Date & Type Note Facility 06-27-2022 Note PROCEDURE: XR FOOT L T MIN 3 VIEWS COMPARISON: None. HISTORY: Pain FINDINGS: BONES:No acute fracture or dislocation. Slight contour deformity of the third proximal phalanx could represent a remote injury. Age advanced degenerative changes of the navicular and medial cuneiform with marginal osteophyte formation and subchondral cystic changes. Mild enthesopathic spurring plantar calcaneus SOFT TISSUES:Negative. No visible soft tissue swelling. EFFUSION:None visible. OTHER: Negative. IMPRESSION: Age advanced degenerative changes of the medial midfoot Electronically authenticated by: EM LÓPEZ Date: 2022-06-27 15:38 [facility] Progress note 06-28-2021 Note Date & Type Note Facility 06-28-2021 Note HNO ID: [id number] Author: Em Fernandez, PhD Service: ? Author Type: Psychologist Type: Progress Notes Filed: 06/28/2021 2:45 PM Note Text: Received mental health records from [facility]. Note from 05/06/21 revealed pt has Schizoaffective Disorder and PTSD. She has been more depressed of late. She is hearing daily voices which are noises, mumbling. She stated she is seeing shadows as well. She rates her depression as 7/10. Pt had RNY gastric bypass with Dr. Lopez in 2017. Based on mental health records patient is not a candidate for a revision at this time. However, would recommend patient establish care with obesity medicine to assist her with managing her weight. She can be followed by nutrition and psychology to assist her with her goals. Partial records have been sent to medical records for scanning. Em Fernandez, psychologist [facility] Evaluation note Note Date & Type Note Facility Evaluation note No assessment information availa [facility] Work Phone: Evaluation note Note Date & Type Note Facility Evaluation note Diagnosis Chronic pain of both knees documented in this encounter [facility] Summary Purpose Family History No Family History Records FoundNo Family History Records FoundNo Family History Records FoundNo Family History Records FoundNo Family History Records FoundNo Family History Records FoundNo Family History Records FoundNo Family History Records FoundNo Family History Records Found Advance Directives Advance Directive Response Recorded Date/ Time Advance Directives No April 9:18am Chief Complaint and Reason for Visit Chief Complaint BH Lumbar Radiculopathy Additional Source Comments INFORMATION SOURCE (unrecogn ized section and content) DATE CREATED AUTHOR 02/14/2018 [facility] DATE CREATED AUTHOR AUTHOR'S ORGANIZ ATION 02/16/2018 [facility] DATE CREATED AUTHOR AUTHOR'S ORGANIZ ATION 10/09/2018 [facility] DATE CREATED AUTHOR AUTHOR'S ORGANIZ ATION 10/11/2021 [facility] DATE CREATED AUTHOR AUTHOR'S ORGANIZ ATION 10/28/2022 [facility] DATE CREATED AUTHOR AUTHOR'S ORGANIZ ATION 11/13/2022 [facility] DATE CREATED AUTHOR AUTHOR'S ORGANIZ ATION 06/10/2023 [facility] DATE CREATED AUTHOR AUTHOR'S ORGANIZ ATION 08/07/2023 [facility] DATE CREATED AUTHOR AUTHOR'S ORGANIZ ATION 09/25/2023 [facility] Goals (unrecognized section and content) Goals may be documented in a n alternate sectionGoals may be documented in an alternate section Care Teams (unrecognized sec tion and content) Team Status: Active Member Role Status Dates NON STAFF Primary Care Provider Active Team Status: Active Member Role Status Dates NON STAFF Primary Care Provider Active Start: July 17, 2023 Jamey Morgan MD Attending Provider Active Start: July 17, 2023 Team Status: Inactive Member Role Status Dates NON STAFF Primary Care Provider Active Start: September 19, 2023 End: September 19, 2023 Simona Szymanski NP-C Attending Provider Active St art: September 19, 2023 End: September 19, 2023 Dust Mixer Relationship Specialty Start Date End Date Shalini Coffey MD [address] [facility] [address] [place] [address] PCP - General Family Medicine 08/05/23 Reason for Visit (unrecogniz ed section and content) Reason Comments Med Refill FOR RECORDS PERTAINING TO PATIENTS WHO ARE OR HAVE BEEN ENROLLED IN A CHEMICAL DEPENDENCY/SUBSTANCEABUSE PROGRAM, SOME INFORMATION MAY BE OMITTED. This clinical summary was aggregated from multiple sources. Caution should be exercised in using it in the provision of clinical care. This summary normalizes information from multiple sources, and as a consequence, information in this document may materially change the coding, format and clinical context of patient data. In addition, data may be omitted in some cases. CLINICAL DECISIONS SHOULD BE BASED ON THE PRIMARY CLINICAL RECORDS. [facility] [employer] provides no warranty or guarantee of the accuracy or completeness of information in this document.
[2023-10-23 09:22] VITALS: BP 123/82; PULSE 89; RESP 16; TEMP 36.7; O2SAT 97
[2023-10-23] MEDS: BUPIVACAINE HCL 0.25% PF 25 MG/10 ML VIAL INJ (10:11)
[2023-10-23] MEDS: 0.9 % SODIUM CHLORIDE 10 ML INJ (10:11)
[2023-10-23] MEDS: DEXAMETHASONE SOD PHOS 10 MG/ML VIAL INJ (10:11)
[2023-10-23] MEDS: IOHEXOL 240 MG/ML - 10 ML VIAL INJ (10:11)
[2023-10-23] MEDS: LIDOCAINE HCL 2% PF 100 MG/5 ML VIAL INJ (10:11)
--- NOTE | 2023-10-23 10:12 | P.ON_ITS ---
Date of procedure: 10/23/23 Pre-op diagnosis: Lumbar stenosis with neurogenic claudication Post-op diagnosis: same as pre-op Procedure: Procedure: Left L3-4, L4-5 transforaminal epidural steroid injection Medications: Bupivacaine 0.25% 2cc, lidocaine 2% 1cc, kenalog 80mg The patient was seen and examined in the preoperative holding area.? Informed consent was obtained and placed on the chart.? Patient was brought to the medical procedure unit and placed in the prone position where a timeout was completed verifying the correct patient, procedure site, position, and planned special equipment using sterile aseptic technique.? Under direct fluoroscopic visualization a 25-gauge Quincke tipped spinal needle was advanced to the designated neural foramen where contrast dye was injected to show adequate spread.? The needle was inserted at level left L3-4. There was no evidence of vascular or adverse uptake.? Epidural spread was appreciated.? The above- mentioned injectate was then placed in a 1.5 mL aliquot preceded by negative aspiration.? The needle was removed. The needle was inserted and the procedure repeated at level left L4-5.? The surgery site was covered.? Patient was taken to the postprocedural recovery area and monitored for an appropriate length of time before found suitable for discharge in the accompaniment of a responsible adult. Anesthesia: Local Surgeon: Najma Richardson Pathology: none sent Condition: stable Disposition: no change
[2023-10-23 10:13] VITALS: BP 126/60; BP 130/71; PULSE 86; PULSE 88; RESP 18; O2SAT 98
== END 2023-10-23 10:17 | disposition home or self-care (01) ==
LOC: SURGOUT 08:58
PROVIDERS: PCP Physician Assistant; Visit Provider Anesthesiology
DX: M48.062 Spinal stenosis, lumbar region with neurogenic claudication (principal)
CPT/HCPCS: 64483; 64484; J1100; Q9966

== ENCOUNTER 2023-11-02 14:17 | Outpatient (OUT) | payer MEDICAID, SELFPAY ==
--- NOTE | 2023-11-02 16:22 | P.CN_ITS ---
Consult Note: HPI Data of Consult Patient: known to practice within the last 3 years Requesting Physician: Simona Szymanski NP Primary Care Provider: SHWETA BARNES Consult Narrative Reason for consult: MBB #2 f/u Narrative: Marilee Uribe is a pleasant 47 year old female who follows for chronic low back pain and right knee pain. Patient recently underwent bilateral L3-4 L4-5 thermal RFA with 60-70% pain relief the first week, then she had a fall and has been in pain since. She had previously completed more than 6 weeks of provider guided home exercises without benefit. Pain today 8/10 in low back radiating to right hip and thigh and radiates to right foot. Patients medications through PCP. Patient underwent left L3-4 L4-5 TFESI with 75% improvement in pain in left low back and left leg/foot. reports stable mood and sleep. cc:: CC: Simona Szymanski NP Review of Systems ROS Status of ROS 10 or more systems reviewed and unremark able except as noted in history and below Musculoskeletal Reports: back pain PFSH PFSH Medical History Surgical History S/P endometrial ablation ?Z98.890 - Other specified postprocedural states (ICD-10) S/P right knee arthroscopy ?Z98.890 - Other specified postprocedural states (ICD-10) H/O gastric bypass ?Z98.84 - Bariatric surgery status (ICD-10) S/P tonsillectomy ?Z90.89 - Acquired absence of other organs (ICD-10) Social History Smoking status: Never smoker Meds Home Medications and Allergies Home Medications Medication Instructions Recorded Confirmed Type acetaminophen 650 mg 650 mg PO Q12H PRN pain 02/13/23 10/23/23 History tablet,extended release (Tylenol Arthritis Pain) aripiprazole 400 mg suspension, 400 mg IM Q28D 02/13/23 10/23/23 History extended rel.intramuscular syringe ([address]) buspirone 30 mg tablet 30 mg PO BID 02/13/23 10/23/23 History hydroxyzine HCl 25 mg tablet 25 mg PO BID 02/13/23 10/23/23 History lumateperone 10.5 mg capsule 10.5 mg PO DAILY 02/13/23 10/23/23 History (Caply[place]) tramadol 50 mg tablet 50 mg PO BID PRN pain 02/13/23 10/23/23 History trazodone 300 mg tablet 300 mg PO DAILY PRN sleep 02/13/23 10/23/23 History venlafaxine 100 mg tablet 300 mg PO DAILY 02/13/23 10/23/23 History zolpidem 5 mg tablet (Ambien) 5 mg PO BEDTIME PRN sleep 02/13/23 10/23/23 History tizanidine 4 mg tablet 4 mg PO BEDTIME 04/18/23 10/23/23 History acarbose 25 mg tablet 25 mg PO DAILY 08/01/23 10/23/23 History cholecalciferol (vitamin D3) 250 10,000 unit PO DAILY 08/01/23 10/23/23 History mcg (10,000 unit) capsule diclofenac sodium 1 % topical gel 2 g topical 08/01/23 History hydroxyzine pamoate 25 mg capsule 25 mg PO DAILY 08/01/23 10/23/23 History Allergies Allergy/AdvReac Type Severity Reaction Status Date / Time erythromycin base Allergy Unknown Verified 10/23/23 09:23 [From E-Mycin] Penicillins Allergy Unknown Verified 10/23/23 09:23 shellfish derived Allergy Unknown Verified 10/23/23 09:23 Sulfa (Sulfonamide Allergy Unknown Verified 10/23/23 09:23 Antibiotics) codeine Allergy Verified 10/23/23 09:23 Exam Constitutional Documenting provider has reviewed patient's vital signs: yes Common normals: no apparent distress, oriented x3, healthy appearing, alert and well nourished General appearance: cooperative Nutritional appearance: obese HENMT Common normals: normocephalic, hearing grossly normal bilaterally and moist oral mucous membranes Head and scalp: normocephalic Eye Common normals: PERRL Pupil: PERRL Neck & C-Spine Common normals: full ROM General: normal visual inspection Chest Common normals: inspection of chest normal Respiratory Common normals: normal respiratory effort, no retractions and no use of accessory muscles Back & Pelvis Common normals: thoracic and lumbar spine normal to inspection Lumbar spine/lower back: ROM limited, pain with ROM, lumbar spinal tenderness, paraspinal muscle tenderness and straight leg raise positive right Other: positive bilateral facet loading radiculopathy following right L3,4,5 pattern intermittent weakness. constant numbness/tingling unable to adequately assess SIJ due to patients size Extremity Common normals: normal to inspection Neuro Common normals: oriented x3, CN's II-XII intact bilaterally, moves all extremities, no focal motor deficits, no sensory deficits noted and deep tendon reflexes 2+ bilaterally Sensorium/orientation: alert Gait (neuro): antalgic Motor exam: strength 5/5 throughout and no movement abnormalities noted Psych Common normals: mental status grossly normal, thought process normal, cooperative, affect normal, speech normal and activity/motor behavior normal Speech: normal speech Thought process: normal thought process Results Additional Findings Additional findings: If on a controlled substance or opioids, I have checked an [place] report on this patient and there are no aberrancies noted in the prescribing history.??If on a controlled substance or opioid a drug screen was completed and reviewed within the last year, and if there has not been a drug screen completed we ordered one today to monitor higher risk, state monitored pain medication use. As part of providing excellent, safe, comprehensive care, the following was completed at our patient's visit: 1. A medication reconciliation and review to ensure accurate knowledge of current/active medications, including asking our patients to inform us about any [id number] medications or herbal remedies/nutritional supplements/alternative remedies. 2. A review to specifically ensure our patients have had annual screening for screening for depression, screening for tobacco use, and screening for unhealthy alcohol use. For concerning screenings had a discussion with the patient, provided patient education, and recommended follow-up with primary care provider when appropriate. If patient noted with a risk of falling, they received education on strength, gait, and balance training to prevent future risk of falling. Assessment and Plan Assessment and Plan (1) Lumbar radiculopathy: (2) Lumbar spondylosis: Assessment and Plan: The patient has had over 3 months of moderate to severe low back pain with functional impairment and inadequate response to conservative care including NSAIDS (unless there are contraindication such as concurrent blood thinners), multiple oral or topical pain medications, and home exercise program/physical therapy.? Patient has completed >6 weeks of guided home exercise program and/or formal physical therapy program without relief of their symptoms.? I have reviewed the imaging of the lumbar spine and no red flags were identified.? The imaging reveals radiographic findings consistent with lumbar spondylosis The Oswestry Disability Index was completed, and the patient scored a 46%.? The patient noted the following:?? moderate pain, pain that impacts ADLs, pain that prevents her from lifting heavy weights, pain that prevents her from walking more than 100 yhards, pain prevents her from sitting more than 1 hour, pain prevents her from standing more than 1 hour, pain impacts social life and travel (3) Lumbago: (4) Osteoarthritis of right knee: (5) Muscle spasm: Plan Right L3-4 L4-5 TFESI under fluoroscopy, risks vs benefits discussed NNCP continue HEP as tolerated continue medications through PCP, concerned for polypharmacy and risks of adding additional medications f/u 2 weeks after injection
== END 2023-11-02 14:18 | disposition home or self-care (01) ==
LOC: PM 14:18
PROVIDERS: PCP Physician Assistant; Visit Provider Nurse Practitioner
DX: M54.16 Radiculopathy, lumbar region (principal); M47.816 Spondylosis without myelopathy or radiculopathy, lumbar region; M54.50 Low back pain, unspecified; M17.11 Unilateral primary osteoarthritis, right knee; M62.838 Other muscle spasm
CPT/HCPCS: G0463

== ENCOUNTER 2023-12-03 20:44 | Emergency (ER) | payer MEDICAID, SELFPAY ==
[2023-12-03 20:47] VITALS: BP 122/82; PULSE 96; TEMP 36.5; O2SAT 96; BMI 59.4
--- OUTSIDE RECORDS SUMMARY | 2023-12-03 21:01 | XMS_ITS | CCD ---
Author Organization [facility] Care Team Providers Care Acid Dumper Name Role Phone FRANCOISE BARNES Unavailable Unavailable ESPERANZADANUTA F Unavailable Unavailable Gus, Ida Evans Attending Unavailable Gus, Ida Evans Attending Unavailable Gus, Ida Evans Attending Unavailable FRANCOISE BARNES Referring Unavailable FRANCOISE BARNES Admitting Unavailable FRANCOISE BARNES Primary Care Unavailable FRANCOISE BARNES Attending Unavailable HajdTyler mendez Attending Unavailable FRANCOISE BARNES Primary Care Unavailable TRENT ., SUNSHINE Admitting Unavailable SUNSHINE QUARLES Attending Unavailable MISC, DR SLOAN Primary Care Unavailable [place], DR EM Snyder Consulting Unavailable TRENT ., SUNSHINE Consulting Unavailable GRANT NAYAK Consulting Unavailable HEMKAM, DR FRANCOISE Del Castillo Admitting Unavailable HEMMER, DR FRANCOISE Del Castillo Attending Unavailable MISC, DR SLOAN Primary Care Unavailable HEMMER, DR FRANCOISE Del Castilol Consulting Unavailable HEMMER, DR FRANCOISE Del Castillo Admitting Unavailable HEMMER, DR FRANCOISE Del Castillo Attending Unavailable NON STAFF Primary Care Provider UnavailMD Jamey Kapoor Attending Provider [phone] MAHIN Szymanski Attending Provider [phone] Shalini Coffey MD Primary Care Provider Debra SIERRA, Najma Jay Attending Unavailable Debra SIERRA, Maerius Jay Attending Unavailable Debra SIERRA, Andrius Pierre Attending Unavailable Debra SIERRA, Andrius Pierre Attending Unavailable Debra SIERRA, Andrius Jay Attending Unavailable Debra SIERRA, Najma Jay Attending Unavailable FRANCOISE BARNES Attending Unavailable FRANCOISE BARNES Attending Unavailable HEMFRANCOISE HUMPHREY Attending Unavailable HEMFRANCOISE HUMPHREY Attending Unavailable Simona Szymanski Admitting Unavailable NON STAFF Primary Care Unavailable Simona Szymanski Attending Unavailable Jamey Morgan Attending Unavailab le Jamey Morgan Admitting Unavailab le NON STAFF Primary Care Unavailable Allergies Allergy Classification Reported Allergen(s) Allergy Type Date of Onset Reaction(s) Facility (1 source) Cephalexin; Translations: [Keflex] Drug Allergy [facility] Repository (5 sources) Clindamycin; Translations: [clindamycin] Drug Allergy 7 Rash [facility] Repository (6 sources) Codeine; Translations: [codeine] Drug Allergy 7 [facility] Repository (1 source) NSAIDs; Translations: [NSAIDs] Propensity to adverse reactions (disorder) [facility] Repository (4 sources) Penicillins; Translations: [penicillins] Propensity to adverse reactions (disorder) 7 [facility] Repository (1 source) Sulfonamides (Antibiotic); Translations: [sulfa drugs] Propensity to adverse reactions (disorder) [facility] Repository (1 source) alot of ATB's, I dont know names; Translations: [alot of ATB's, I dont know names] Propensity to adverse reactions (disorder) [facility] Repository (1 source) Penicillin Drug Allergy [facility] Repository (1 source) Sulfonamides (Antibiotic) Drug allergy (disorder) [facility] Repository (3 sources) Sulfonamides (Antibiotic); Translations: [Sulfa (Sulfonamide Antibiotics)] Allergy to substance 7 [facility] (3 sources) erythromycin base; Translations: [erythromycin base] Allergy to substance 7 [facility] (1 source) Bacitracin / Polymyxin B Drug Allergy 3 [facility] Work Phone: (1 source) Ciprofloxacin Drug Allergy 3 Rash [facility] Healthcare (1 source) Erythromycin Drug Allergy 5 Hives [facility] Healthcare (1 source) Penicillin G Drug Allergy 3 [facility] (1 source) Sulfonamides (Antibiotic) Drug Allergy 5 Hives [facility] (1 source) Soap Allergy to substance 7 Swelling [facility] Medications Current Medications Medication Drug Class(es) Dates Sig (Normalized) Sig (Original) acarbose 25 mg oral tablet (1 source) alpha-Glucosidase Inhibitor Start: 04-25-2023 acarbose (Precose) 25 MG tablet Take 1 tablet by mouth in the morning and 1 tablet at noon and 1 tablet in the evening. Take with meals. 0 04/25/2023 Active [id number] 200 actuat albuterol 0.09 mg/actuat metered dose [...] once daily cholecalciferol (Vitamin D-3) 250 MCG (75321 UT) capsule Indications: Vitamin D deficiency Take 1 capsule (250 mcg) by mouth 1 (one) time each day at the same time. 90 capsule 3 02/06/2023 Active Continuous Blood Gluc [employer]eg[employer] Console Operator Track (FreeStyle Samreen 2 Conifer) device (1 source) Start: 02-23-2023 Continuous Blood Gluc [employer]eg[employer] Console Operator Track (FreeStyle Samreen 2 Conifer) device USE DIRECTED 0 02/23/2023 Active Continuous [...] Start: 08-15-2017 take 2 tablets by mo [facility] once daily Multivit With Min-Folic Acid (Centrum [...] (1 source) Polyene Antifungal nystatin (Mycostatin ) [id number] UNIT/GM powder Apply 1 application topically in [...] solution (2 sources) Vitamin B12 Start: 08-15-20 17 Cyanocobalamin (Vitamin B-12) (Vitamin B-12) 1,000 mcg/mL [...] disc disorders; other back problems (2 sources) Low back pain; Translations: [Low back pain, unspecified] Onset: 01-23-2023 01-23-2023 Episodic Unclassified (1 source) [...] wo conon MR lumbar spine wo con [facility] [place] [address] MRI Report Signed Patient: Marilee Arriaga MR#: [id number] : 1975 Acct:[id number] Age/Sex: 47 / F ADM Date: 09/19/23 Loc: Room: Type: [facility] Attending Dr: Simona STOCKTON Copies to: MAHIN [...] Beckford Jr., D.O.09/19/2023 2:27 PM Dictation Location: [place] [address] Transcribed By: [facility] 09/19/23 1427 Dictated By: Linden Beckford Jr, DO 09/19/23 1412 Signed By: 09/19/23 1427 Normal The Counts Include 234 Beds At [facility] XR pre/post mri xrayon 09-19 XR pre/post mri xray [facility] [place] [address] [place] [address] XRay Report Signed Patient: Marilee Arriaga MR#: [id number] : 1975 Acct:[id number] Age/Sex: 47 / F ADM Date: 09/19/23 Loc: Room: Type: [facility] Attending Dr: Simona STOCKTON Copies to: MAHIN [...] Beckford Jr., D.OArianna09/19/2023 3:08 PM Dictation Location: [facility] Transcribed By: [facility] 09/19/23 1508 Dictated By: Linden Beckford Jr, DO 09/19/23 1507 Signed By: 09/19/[address] [facility] ECHOCARDIO M/2D COMPLETEon 0 11-07-2022 ECHOCARDIO M/2D COMPLETE Patient: MARILEE ARRIAGA Exam Date: 11/07/2022 : 1975 Gender:F Ordering : DR FRANCOISE MARTINEZ Admission #: [id number] Family : Order #: [id number] CLICK HERE TO VIEW EXAM ECHOCARDIOGRAM REPORT [...] Shay Masters M.D. on 11/07/2022 at 19:16 [facility] Coding Summary.on 05-04-2022 Coding Summary. CD:[id number] Gh0bWw+PGh lYWQ+RT9AUIPpZ07bwXYsyL3IB9nUL L8MYOJMYXCEKB9KPT1myIG7IRltZ0K ybiAv NjnsaKWrIF11RVs2RPZ3bNccBRsbhB 3zpSJjL2y2AeHgYV97jZ24RGynKBFp SzR0JrWenjoblOJh O1xnYjNqpBBwNyo+PHRhYmxlIHdpZH KhLOzaXTGtKmMelRmuVT4yOe8cCQKv LWNvbGxhcHNlOiBj g8ipGZRzDEjmHJ2dhZgiJ6CcwDP9BY Btv2s3Pa99nWG+EADhBCU4lHarEVzr n771KoJib7dyFGR1 pVOdDSawPGB2G85in2T7VCGjYUXcPY P3qZP7rQ3onRvruheoN6DgwYCxEmI6 QMB3oXPekX7nmCdy gqtrdZ1sHlw+C73XPH1VGFSMCJ0NJg g7J4PsRmcmfQR+WK39IQFwXS72gXEk cSIjg1xuhSj4DqMc EVMqLMZ4eDeuPRgts8RrOEPzN46rkQ Usu4G1ODTrfVatjXIkDlBdxXW6qS1d PXtupfkxz6ssxpcf Hzirj9zkpm27sL47G12sXKhuIXLaYI B4QEGtVOVhuRfywa2uwV7lYt0+IDxj i5hyp9ofbPk2ZnIf PAUxwhFryVmbJGA1s7XoUp80O7FzaY xqi2YqDgg6ed99wSGat9N8iAI2ZWsn RUPgkD3nXBtfChA6 AMSlSjUrdF38lXKxFNlgCl6yfYaqmA vnOG4jWMEhtaasOJCszA8zLTBhqYZb xObrDO1sBRScykpm m314SuMyDLJ0WZMgnUBaX4AkqU8uJu FrJPCcXPMbL5XflPIwMXszM520YLel BpN2ZFEavuMpX0By UABhwWkfYoG8l5J4Og0Jx0JkiytqYW V0KOsbMZW3WsJ4OeAsEuO6I2YtDyx1 XQPdcYtuXU6cF9Rq MJGyhcwlnsplvPY7XUPxPHRmtB57sW WxOWxxJm0ex4A0f978LJOqOJFpuB33 Tj8foAvjAOGgmAQN fC8unwkai7cmqihiYsGuENOiKEb2LQ l1LDYyeGsyTzExLLW6NiW8RIP9xDQn gY7psKratwwahZ6i Oyc+Q94oqQ1uDFS8NHL6tssjWUMfup ZgYM03BT35K2IrOpxhiQDszAF+PGRp rhHgkPfwOB6qYrWg i0fpq4OwFZknK1XkDQQjJWroHig9DA DxKHG5vJN1aH5yMXSpBCypl8M4mEU9 W5ZofgKpin8ym3mi JYLcGIhdK78psOZpv8S0EZZyfGW4ZH YsiHzsXzKjaE95Jxr+JCOytPfpc8Ie Hzheo2jli0mwmFu7 BdJvUOErpkZumKwkHUK7z7OdNm90L4 9zONuoZSYjRVTjQUFlJGSjtYxybf8c vL1sJg5+PGNvbCB3 sEX7iN3iYJUhQeD5WEszH387HsUudW SrDzypo5jod1rzlLf1QfBjBORrtbUs rNsaFOC4k3GcNs67 R50uCIluXOPdTGYbLYYmZJYfoHgjtb 9puM4dPf2+BJ2xv0zeus19hH20gMJ+ OHCuNDJ0eWomVOsa TKOkjP7hULmhFxN9ZGOvCaMizE11sI KvVOcgRa8vfIpzhJnrPK8xKXQdzrpt k369LrNvb5feVCDi mLVyXRryDYO7H02ah8C0KQYoXRIsKK I1fWQ9fX4ysAhdvxiazMKliJnkmbMh aFlaERkxNUazV983 PWWpnYlmYtRnaKcipePzHcYqGWk0J8 QoCca8OHQnfEtoWR7bhVYwETyiOj9b cZwgpBjtYJ0hWBDk gtpet857EaBng0vaTAIpsRUtMQfcMU A8V99ry5W8FIMnRKRwZZP6xNO1wO8s bGlnbjogbGVmdDsg dsNnwSvxTZpyRWpdI535UISkeAuoWe ZkptKeQMAiuVA9YO77TJ44bRPrl2A9 aSY7B2SwAGMljdks byshmLP5RWSbSROeiF93Dl4yjPnfIa 3dGYGdFNJ8FIDekRUyN7WdtJ0iBuHj TLClMOPkV8ZznQIr CKpdX850GAgwGiQ9BEJkciMbO3PmUE IiyNkvIhZ7c4W0Uf9JO0C7RW30JY78 nQQyh5U6oUO0N7Kz EVSjuvgknurgvWV1ZISvQVGkjS07Oo 5hmFayIe8wENIaMDJ5HYJsfGCeJ4Yy dM7fUkTnNMBhEXGi N0HzsVFeKJboW054CMvbTaE8KTHalm GbW1DkSXGtvMttPuE3p3W6Oc4FSOp3 SR43WW45mBSmb7E4 rIY6R9KdLIJvpppqamwviSY1ZZSlMG YeuO62Pn8bfThlFr2vEVGnSSF4XHKd zAVqT4GpqA9vFqZu RQAeFHSrA1AtdMKqNHihA120RKxgQk G5MNDkrzNxI6UgSLCajOclEuC2y9D8 Ty8SAQPvNW25QBK8 oVT4CN05JU53S7FsCpphyTJdgBJ+PH RhYmxlIHdpZHRoPScxMDAlJyBzdHls LQ8hMh7vJQIlNTWa zMydqKWvEkGnc1feWMXyLFssOX6hbC vmJ3TueRE8UQAmj8e0Qq92Q56uN0Nc dXA+QHSezYN1iFI8 wN8eIdMuWwX5VWdvJ433IjPgnXGxVp ndg8bph0gicCw5AlB4LUBrjcSiyPbg UUY6a1TcBt33O64x ENoaRMUkPYUeCYQqTAKcjWbmuy5ozW 9wIi8+KPVgsXS7hGT3cU1tDnIwFqI1 WIjaF460AdHakKOx Farby7spm0jryHe7VoCmMCYrigLtwE iwYTA3z8DlFu04E3HnxTxwn2HgNlv8 le81cHYsd0Z6cEF7 X2PnZDRxcnjjsBRxuClcKS6vAWWkuu vqYFZiuO6cIPMrW9z5QuNmRnR9MCjk J7RykoH1QZCogDYz YYcwWVP2P19nv1M3XFMaSLYiXFU6wF S4lP7nwZxujribrOMfeDytkqEosIiv SMxzBQqwL708TLSl kOpyERKjnG6gREGzoRTymKjzXA2xHI AfsvatYfPZWKdLBETKAQ0LFLDMBwXO LF16HS10gSLhr8M4 cBA1R0SjGHLlnzlhagosqQJ9TNNeGC MdjH25bQFyQNnjSl9cj2J8x227EHCh ZOYwiS38Ia1fgQvv WEQscDFEbB8wergtx1jcggmiFbPmPQ AeGBk6EMx8BOJwxSxuDiNkPLN8VrN3 IMA7iDGkhH6ngGex sadupJ4lEbp+VHPnEdZyMGh0KMlpoU Q+VJVeALV6oCjjQRcnUHZnxX6hTHVu S8q0MiSxWrP2XRvq E2SdVGZxmkyaYa26yS5yHtEgIkT5TC cjQ2JqwgK4KUQylBDdCKzxYGX7D20l s7M7TXFnNICrNRI1 cWP2bR3riRtgtprzuGIgiPfxwyDmcK mlOJmbMUgsK284AGMndZseHjG4GFta SMOqJB66IH85bSDk y3W2hVQ1O4XlISCjvyyxavcwvUS8UQ PdWOXkdP93rPBdALohNa5qm3K2f029 QIDuGFWrnY85Rf8g bOolWIWyhDDWcJ7bvvckf5tkkscsVq RoGMQwLLi7NOv0GXOecYugFeTnERF3 NqD3SWV9jMNilN7v kPyopjkyyG3vUfi+HxInEStzRL15KO 39eBVvz5I0eTN4N2BhRTVjoeesozfp nFI1LKLjJIUtzY41 jWGgGTrjWh5su4L0f592QERuILFjrE 98Dk4csLqyYCZfxSVFmE8xmblaw0ni cjogIzAwMDAwMDt0 GRp7SXGsaToiAsSyGZO3LlV8PWP8pV FthL3hdTqrpsrtfX6vZqw+UmVjdXJy uY5xEQ09XS88A2Bp PjwvdGFibGU+PHRhYmxlIHdpZHRoPS xpYNHiHnIemDzrTX5uZn9fIZWfTFGu sGughMMpAgKrt7vx KFTwVKkmEZ5qdHwmA3MjiPB2UMRbf0 s6Eq52I09yC1PzsPY+GDCipPP3zDP4 lM2fVvGwMmB0JUhe V433ToJwcMGbTuems9sae9ulvAa2Dt KzQJWsmvKkpFqrMCZ0b2ZyJl11O52g IHdpZHRoPSIyMCUi KAJkqKeuss8rwN9kZm3+IMWgaSB9fQ I9rV5tViXfAhO0CWooM793VaJwzVPo BjbxD16fQ8JsuAV+ PZBuEnf2GUVtgDyiCU9zqDSdEGwtPb 6yLFQ0NhLgYwLvLDjfC8NoIPDnbprc cayvxKZ2ADVjFOIm uC95Wl0unEnwWg8kHKDiGVI8JGZwgL DeJ8QsqP3iNyYiIFWxFWNnP9SzeLXx HSknP860YAadLzV6 TGEhkxLbF6CpLMCuqPvrFrI6o0M3Rl 1CoOgorTHbKJ8pPxHvOTe1S1TdUah0 EGRrhQojCC3mcJGq TEiuZp4atQpvvWymIQ5hPGLdylkhh4 66NlFnx5dzIJZvhRMyUMnyFBJ8K80x x4V9HMEfTXEhUMS8 hXN6mQ6ebVpaklxckVAhsOlpcqKtbW gfVMeoZRmoC943FKYkwIhmDtGLTip3 A2HhHsl3YSWqnYam ZH3doPLlKGdjJm9inQkeuNfkTS9fCS Qmvcugr452WuEyw2ktTSAnlXSfWPol KVU0M74rs5P3PDKf QQJiIVM3tMQ3fO8nyOkpirejfYPytI zdetPxlNftBJoqLKiuO535LZLcePya Ap3UXgi5D0HzVcq1 BIByiSqeKI3bnDUhBGwyNk0oeZzfcW ilZY9yPYRvuhrjp623LeUnk1ggMRDz oBAzKTruYQM3M89e v4I7ZFGcGQPsYRE9hDZ6cY5pcQayho balJIllZnskiYhuVgmBNcoZRgdN682 IHRvcDsnPlBheWVy OjwvdGQ+KR10zo90V4DwFoaxMlw3UG YoLCS6xUQ7gD4hPPJrQSsiw0X3lLU7 Y6TyquWydw6uw4ev YXBz (more content not included)... [facility] Consent for Treatmenton Consent for Treatment [id number]:127 [facility] Outside Records Officeon Outside Records Office [id number]:127 Normal [facility] Physician Orderon 04-14-2022 Physician Order [id number]:127 [facility] Coding Summary.on 11-12-2021 Coding Summary. CD:[id number] Gh0bWw+PGh lYWQ+AY6NAHZdP04ujCJpcW7GD7qOL Z5ZNNDCJHXIXN4FJA9yxLZ2GSlkJ1W ybiAv ByhjfEPqHV74THa8EOK1eWrvDZxdvZ 9xiKByW8x6KzWdQM50cS62EBtmNGHi VdJ4FhYlxlleyVWg Z2vhUpHoqXFsZli+PHRhYmxlIHdpZH ZuMHptTOWvLcUnnUahTS2wUa0dJRBc LWNvbGxhcHNlOiBj m7jaMGSlOXmiSK2kgMraM6VxrWF8UU Shr1g0Va79eCI+CYRvWJP3rLymWAeq a615ZyYkf8owOQI9 gWDgOItqJZW3A15cl5Z1WPGlLWHxFR C2kLX4xD7irZurcddzJ9MkvQDbTaN6 HHN3yJRdfK8qfVyu yttjxM7tPgo+C92HSO4XWHXHYN6WMe w9V7NdSbztcYW+ZR31KJWmHQ78vMSx zHKzm8lnhXz0HvZc TOJqKEH3jIltDWesv5SuKSUzS86dgL Lbr0F2YACdnMnhxYPgNlLnkOI1kW0n QLqohiaia2xmftjg Midul1dxpi49wM37G56zGFixSBKxMU I2ONZnOAWqdWrtld6rmY6uGk1+IDxj t6xze5qgnVk1WxCx BXWoxqYyaGehQDE2d7MhSb79C7MefL lkr6ZnEvj2ns07qMXlg9O1cHS3FRbs RULjeO0jTIhnBoP9 IBXgQrIizC45wMYqHRusVf9zfKjinT zeRD9iZBKbzjsdJJJbjZ1qMBDibYHl sMkkHT6kVBLuimza j885XyJqJAX9AKHgdNSeG2FcoI5lYu RmJXIpBCOtU5FbcBGiALpxI813NRpj MkX1TOXpcxUkX0Mw CLHugJakMiT1g1M7Tk2Nn1KugxqbYG M1ACcqXGUlEhO1EsYxOoJ9U9OnRkf8 AXTgzWmgQQ5iS5Dy EFManlttjzsodRA2LVZoZCBtkE56cL VwTItvYj3ac9H5g422AUHzTRNdeD89 Fu2wxInwJBBllKCE iG4feubfb5lokxkqGfWmXDCeOLg9FT c1VKQrkKstGbAbIEU4JvC9SBC0oFBp lM5hkEbazyihkX7s Oyc+V63nvJ3kZUA4LZZ1oyxfAASwtu QoTL07BE64Z6SiVxjjdITvpBX+PGRp chFyaZsgKK1pCuWg k6man3FqSCtkC5BmLQAeATxhPsl6UQ PjMFY0fTY7gE6aMQWtLCjyd7T3vAN3 N2PgacExie9xa4je IHBgBJxlG48stHHdx6A9IHFyyDI6TY VuiNbpLxFuoT92Sac+FRZklJcsz7Zn Ksybc2bez5fszQc8 KpGeWMUtgrSluNefORG7b1XcRr65Y8 6vSGviZOAaNFBuOGOhHZIhgObjxm1s qD4bKj5+PGNvbCB3 fYQ0tN2rCRGjTlW0VZpuV673XcMuxK SaWltyo4tzb7oohIo0TaEyEKHbmrOa aNllZJG3k5KuCx69 N12yMDnnQBCxPQYkRCIiVABjlKblwb 6pdF0tJn1+KW7eq3unhk65lX01rOD+ DOWiFOQ9xYxpBCgl KSJofL7pWOntCiN2HWJjByKfbX18qV CjMXapXu5juUxkvQeuNZ2xDWAoisjh d242NdKov3daWEAb pFZpEKiyNAP2N72hj1T8PLRnEGOgDU E6oNB2lI8sgJkyarvniBUqiRikryQh xPvkLWqwVWmjY782 CWKwoVaiNvHojEfkmuGpGfMbWGd1U7 PnWca5IHZjcImyHJ0vpMXwGOyzJe8r pGorbKqkKK9aVHUd sgccj528DnKwk8ptTBJpcYMyHRgmGT Y3D34hv2N1QPKcZRLkIFH7sRM2nJ9u bGlnbjogbGVmdDsg znRduAwiWDjuHKakC206KYWkxQnjFo DeluBgCTGvpSX4FF27CH78bLBpd9E4 sTU9N6QmBVIqjcmb pbssgEE6DBJiUNGnrX78Ik9wzJziFk 5dJUWvOVC1IHAwoCGgT4HvrR9kKnAf ZAUdNYZhA5TfdMOs JHfhI438VMmhDdI9FMTrujCyI8NeFB RyqSyqDuR9a9D0Sm6ZS9Q1AL17CH14 vYVmg6F8oJI0I7Jp OETsndqrxifotYC0WDJkSYOtkE80Qq 0nbMikTh8gQPDhNVQ0CCQloJNjC8Sz zL4aMoBfNLEnLIOj O2GpfWPtFUfkQ928CLfpRwF3EPIpcs UfK6MqDHCtzJdxQxJ9w3L2Xr1VOLs8 GG24FI32iJGwq6T4 hVQ3E3DzKRMktxdsgbrdfRS0YMFkGD AzlH04Eb6gnYkkTb7qXTBbYXD5DUWk dTVyO1NieY0wRlVg ULElDUInE5HzuXOmRXsbK181PKzpKf H5TKQvqxHmB1JgAMDysDnwCgW4d3S3 Ud7DRAEySN77GCL9 fFW3QN61WI85F3JnVddhpCIowHN+PH RhYmxlIHdpZHRoPScxMDAlJyBzdHls EG0dGp2gRYGkVCIy hGktiCQmIgGga9evZQMoBClvZQ1rwY qoN6SvgKO5BSYek9o2Ou31U51dN4Kq dXA+EQKwwTY0zFR8 iD7dNiQeFwT7CVohB108QsUvhVXyKl lsl8dne0mvhTs7WbH8YMHrijZebCeo BBF8v8LmCa44Y33g QSgsSURuVCZnEPNtXYExaSijwg0kmD 9wIi8+QKPkhII1mPE7jK6oCfLlQhD9 KYonD261UjOjwMIy Qdmhg0hzx0lpnJw2ZrMqSHEuduGiwM wgZZC7f9SeCo79F6AyfDqxf2KpIgm3 qt23cTQsz5I8rOX1 W9MvDQKwhzucoWKppTqgKH3oMDDsue hwSUEndV9lZOKqI4k4DyQaPgR8ZYfr W7DpvpO6RWPgnQIc UTazMLW8D13mt2H4ZCIvALAhONV6fY L4jB6bbWqfyaaiaELrkXqxuqXamUqv PUkiJCxxL150VAEi lQgvXHPudC1xEYKniZTchHcoJG8xAG QjrmekMrKNQRrJYIKJVY9ORUHMNoSX XL59CC23sCRqt8D6 zVB1F6UsUBCnxmnwhkucyYG0KPRfCR InjG37sFQaMQtjZa3ma6F1y384TASr BKBdoK01Ji5mtBzx ARWbnSUZxA7srrpsh8ooaojkGyMrFE AhRTa7RFo2SVOzcPqcQmYvXLG6ZaY7 OCB6bPEvcU8evLxd rttjrS3vIpv+YCWkQnHyYKc5HWmhlU Q+IBZtHEI8vIbtGPwoNZXipV5dPGQk Q2q3AoCqYvS0KAml X4KzMEFfzhwxHt68jK4zBfStRuP1NL nqW5KufzF4VCJrcORdTJcbJPL4X12h q0G9NXQeJCMsWAZ9 vUT6iF6vaAarfpwutUQegHpyjoAbqF ahSVeiTDsaF560GBAufRfoQtMgUIlh IAQrUE01PK48zINw g0P1sCB0D7XxQYZvmuhlfjctaJT2TI HyRDXwdG49zUUbEPaaGj1nj6O8s924 DTUbCNQbwW05Rt9o yCpkXNFkwSNNfJ1fyqzap0wuiinsFy VdYTRdSEa6SXs0JVPleTefYaWzMNX5 NhJ6IGE1oWFymK3h pAdusrjbqQ8eEsf+EdAtTIreKA93KY 42mFGjb0B5bHQ3U7JuMXHrnjkjdgqp gYP3NIUqXZAkcN73 hARuJTnnLr8qk8U8i808VDDuLEGyiK 23Bn4cbFzyTABbmUZHoX5vtgjlv9hz cjogIzAwMDAwMDt0 YGo8HGFsjIejAnJxXGZ9VpX4HFG4eD QiiH1unOsdbcvzhF4tCkv+XZ1mzvcq feZ9XJ10RN98M7Yh PjwvdGFibGU+PHRhYmxlIHdpZHRoPS krVKFkQnJrsGvfUY4aSe9nEKMlANBf uMcalBToJnOqn4gx CFAyVZumME2ypHrmH1PvtDD1TMMup0 d1Xn77E97vJ4NptIE+EFOegMM7yPM2 pV4fPsOkMlA4CUxv J514FoCzmAAcRysvb4feg2gypCm5Oq XfVXCxlhTisXbvOUB3p1JgAd49W58b IHdpZHRoPSIyMCUi TEJwyNnndk3xaD9vLd4+DWAoqKU3vS A4dC0jHeRhWtO0ZZagD962GeEecPVl NhcaD74gO7MefRJ+ RQDaPkq2NLShyUkvAU0saGTpJUneAw 1gQSK1HyJaXmGpUNweU8JsBHPtsjms bvlahQK3CZBhKHFn cG28Mu8leHxfOk5zMEJmDIN1IRTgqX WpE2PjpD0cSoXcNYDsSBBtO3BynYTf FMejQ840SIqjViW5 KLAgkpZxI0PeJCXczZooSeA0i3T2Ia 8KtRhaoCXeGK0qDxBaBNw8W7ElAuv1 NCMmhAlvXQ5niCIh SFlzUs8nbTyvzJugFA9gDDSzwhnai5 59BpJip3aqXGSffARxECnwYNG6S83e a8K3MUGdPBTnTDH1 lQF8tE9vzFfohldhzRPoxOalkhLgdA pyFSjrUDdyP933LZAjyLqfFqVUZpb6 I2LiGgr1KSBlzEzf CD9pqYAeFMruXw5ihNxesSeiWA3mZG Amqcazw432LgWyt0ciZIWefLLlGVlh UEH9B87ya9D6ULLu SGRtVDF8nMO0yX6kbJqmhktqqXUnmA grlyUseUjhSQamPMplO665VKMhiTgn Cj3CXhd1V6ObOgp3 FCIdePxdRW9tbQWpTPgyGm1yhJmfiE kmLB8rRJAasjdxm197LqGsz5sfIQMq gMFfDAjlXII8T47e i6B8VBNiZSWtCMD5jQV1wH5qeHkklh pebCQsbUqzkbDvwMksYGuiLMflJ442 IHRvcDsnPlBheWVy OjwvdGQ+NB00lk91H4CpSmkpPnc9VZ IiRAH9xPD2dP5vALZtNPerl6D1aJM7 C1VopxCdfb9xp8ce YXBz (more content not included)... Normal [facility] Consent for Treatmenton 10-19 Consent for Treatment [id number]#[id number]:127 Normal [facility] Discharge Instructionson Discharge Instructions [id number]#[id number]:127 Normal [facility] ED Clinical Summaryon 2021 ED Clinical Summary [place] [id number] ED Clinical Summary Person Information Name: MARILEE ARRIAGA [facility] Age: 45 Years : 1975 Sex: Female Language: Indonesian PCP: FRANCOISE GAY Marital Status: Single Visit [...] 11/05/2021 16:00:59 11/05/2021 16:00:59 11/05/2021 16:00:59 AD[address]ESS: [address] [facility] [id number] PHYS DOC NOTES: MEDICAL INFORMATION: Prescriptions Given: New Medications [id number], [address], [place] [id number], [phone] acetaminophen-hydrocodone (Russell 325 mg-5 mg oral tablet) 1 Tablets [...] up: With: Address: When: [address] [place] [address] Business (1) In 3 days 11/08/2021 Comments: Return to the emergency room if your pain gets worse or any new symptoms. With: Address: When: FRANCOISE BARNES [address] [place] [address] Business (1) In 3 days DIAGNOSIS: 1:Avulsion fracture of left ankle; 2:Sprain of left foot Normal [facility] ED Note-Physicianon 11-06-19 ED Note-Physician Basic Information Time Seen: Tyler Petersen M.D. 11/05/2021 14:34 Chief Complaint patient states that [...] and crutches was given. Patient was given Russell in the emergency room. Will discharge patient home with Russell and follow-up with Ortho. The OARRS report [...] Foot 3+ Views Left Medications Administered Given Russell 5/325 Tab, 1 tab(s), Oral Disposition Plan Patient Discharge Condition Stable Discharge Disposition Discharged home Discharge Prescription List Prescriptions Russell 325 mg-5 mg oral tablet, 1 tab(s), Oral, q6hr, PRN Follow-up With When Contact Information Em Mir In 3 days 11/08/2021 EDT [address] [place] [address]- Business (1) Additional Instructions: Return to the emergency room if your pain gets worse or any new symptoms. FRANCOISE BARNES In 3 days [address] [place] [address]- Business (1) Additional Instructions: Patient Education Crutch [...] Medications Inpatient No active inpatient medications Home Simaliaislinn Maintena Prefilled Syringe 400 mg intramuscular injection, extended release, 1, IntraMuscular, qMonth busPIRone 30 mg oral tablet, 30 mg= 1 tab(s), Oral, BID Imitrex 25 mg Tab, 25 mg= 1 tab(s), Oral, q6hr, PRN Lamictal 100 mg Tab, 100 mg= 1 tab(s), Oral, Daily Russell 325 mg-5 mg oral tablet, 1 tab(s), Oral, q6hr, PRN ondansetron 4 mg/5 mL oral solution Prozac 20 mg Cap, 20 mg= 1 cap(s), Oral, Daily Prozac 40 mg Cap, 40 mg= 1 cap(s), Oral, Daily Qvar with Dose Counter 80 mcg/inh inhalation aerosol ranitidine 150 mg Tab, 150 mg= 1 tab(s), Oral, BID SEROquel 100 (more content not included)... Normal [facility] Comment on above: Result Comment: Elec tronically [...] 08/04/2001 Document Revised: 07/20/2018 Document Reviewed: 01/27/2017 [employer] Patient Education ? 2020 [employer] How to Use a Stirrup Ankle [...] the bra (more content not included)... Normal [facility] ED Patient Summaryon 022 ED Patient Summary [facility] [address], [place] [address] Patient Discharge Instructions Person Information Name: MARILEE ARRIAGA Age: 45 Years Arrival Date: 11/05/2021 13:19:01 Discharge Diagnosis: 1:Avulsion fracture of left ankle; 2:Sprain of left foot Primary Care Physician: FRANCOISE GAY Provider Information Primary Provider: Tyler Petersen M.D. Advanced Director Internal Audit:None The exam and treatment you received in the Emergency Department were for an urgent problem and are not intended as complete care. It is important that you follow up with a doctor, nurse practitioner, or physician?s library serials assistant for ongoing care. If your symptoms [...] Instructions: With: Address: When: [address] [place] [address] Business (1) In 3 days 11/08/2021 Comments: Return to the emergency room if your pain gets worse or any new symptoms. With: Address: When: FRANCOISE BARNES [address] [place] [address] Business (1) In 3 days In the [...] opioids can be used to help relieve fcdtnjyr-ej-uovlub pain and are often prescribed following a [...] Administration (www.fd (more content not included)... Normal [facility] XR Ankle 3+ Views Lefton XR Ankle [...] Barnett MD Transcribed by: KAIDEN Technologist: Normal [facility] XR Foot 3+ Views Lefton 10-19 XR Foot 3+ Views Left Exam Date/Time: 11/05/2021 13:50 EDT Reason for Exam: Fall Report Refer to concurrent left ankle radiograph dictation. FINAL REPORT Dictated: 11/05/2021 2:04 pm Rony Barnett MD Signed (Electronic Signature): 11/05/2021 2:04 pm Signed by: Rony Barnett MD Transcribed by: KAIDEN Technologist: Normal [facility] MRI BRAIN W WO CONTRASTon MRI BRAIN [...] EFFECT.NO ABNORMAL SITES OF DEMYELINATION.RHINITIS.Interpr eted by:SUMANTH Garciaigned by:Margo Mendez MD02/13/18inal result Normal [facility] CNDSon 02-16-2017 CN HNO ID: [id number] thor: Mark Anthony (Romain) AdenugaService: General SurgeryAuthor Type: ResidentType: Discharge SummariesFiled: 02/16/2017 11:44 AMNote Text:[facility] [place] [id number] or [phone] [facility] O N F I D E N T I A L I N F O R M A T I O N -----STANDARD [facility] DOCUMENTDISCHARGE SUMMARYPatient Name: Marilee Buckner Date: 02/13/2017Discharge Date: 02/16/2017Attending Physician: Eleni Pfeiffer Diagnosis: Morbid obesitySecondary Diagnoses:Patient Active Hospital Problem List: Obesity, Class III, BMI >= 40 (morbid obesity) ([facility]) E66.01 (02/12/2017) Morbid obesity ([facility]) (02/13/2017)Operations During Hospitalization:Laparoscopic Crystal en Y gastric [...] as needed.Future Appointments:Future AppointmentsDate Time Provider Department [place]02/23/2017 2:30 PM [id number]-PLQZHJSURRENÉE LUNDBERGI GENS A/M 03/09/2017 11:00 AM [id number], KASEY (PHD) GSPSMN GENS A/M 03/16/2017 12:00 PM [id number] 2 GENBMI GENS A/M D04/06/2017 1:45 PM [id number] LUNDBERG GENBMI GENS A/M D05/16/2017 10:30 AM [id number] TAM GENBMI GENS A/M D05/16/2017 10:30 AM [id number] TAM GENBMI GENS A/M BLDPatient will follow-up in clinic with Renée Lopez MD as scheduledabove, or sooner if the need arises.Electronically SIGNED by Licensed Independent Practitioner: Mark Anthony Jean MD Normal [facility] Glucose POCT ([place], [place] A Use Only)on 02-16-2017 Glucose mass conc 105 mg/dL High 65-100 [facility] Comment on above: Performed By: #### G LUP ####[facility] [place], [place] [phone] NURSING PROGon 02-16-2017 NURSING PROG HNO ID: [id number] thor: Lilibeth Ortega (Rn) Racquel Santosice: (none)Author Type: Registered NurseType: Nursing Progress NoteFiled: 02/16/2017 11:37 AMNote Text: Nursing Progress NotePatient Name: Marilee PruittAndrey: [id number] Location: [place] [address]/[id number] Da nena Note: Patient has been discharged [...] note was completed by: Lilibeth Santos RN [facility] NURSING PROG HNO ID: [id number] thor: Lilibeth Ortega (Rn) SUNSHINE Santoservice: (none)Author Type: Registered NurseType: Nursing Progress NoteFiled: 02/16/2017 10:27 AMNote Text: Nursing Progress NotePatient Name: Marilee Tinsley SonalN: [id number] Location: [place] [address]/[id number] Da nena Note: Doing better this am, able to take all of pills and drink theKphos, took a shower, so taking in more po, pain controlled, no emesis, nomore bloody stool, ambulating VSS, on RA, expecting to go home today,continue to monitor.This note was completed by: Lilibeth Santos RN [facility] PROGRESSon 02-16-2017 PROGRESS HNO ID: [id number] thor: Hiram (Romain) Monikaervice: General SurgeryAuthor Type: ResidentType: Progress NotesFiled: 02/16/2017 8:02 AMNote Text:General Surgery Progress NoteName: Marilee OlivierJustinN: [id number]: 02/16/2017SUBJECTIVESubjective: No acute events overnight. Last melenotic [...] lb) LMP 01/27/2017 SpO2 94% BMI 62.73 kg/e7Ykouup/Output Summary (Last 24 hours) at 02/16/17 0759Last [...] with morbid obesity now POD 3 s/p iemtnlgatsquOeyo-wm-U gastric bypass. Bloody bowel movements resolved with stable H/H.- Phase 2 bariatric diet- Heplock IV- Wean O2- PO pain meds, hold toradol- Will discuss resuming DVT prophylaxis- Encourage incentive spirometry and ambulation- Anticipate discharge today on home Richelle Gordon [facility] Surgery ResidentPager [phone] [facility] Basic Metabolic Panlon 02-15 Anion gap 10 mmol/L Normal 9-[address] [facility] Comment on above: Performed By: #### B VIANCA MG1, PHOS ####[facility] [place], [place] [phone] Calcium 8.1 mg/dL Low 8.5-10.[address] [facility] Comment on above: Performed By: #### B VIANCA MG1, PHOS ####[facility] [place], [place] [phone] Chloride 104 mmol/L Normal 98-[address] [facility] Comment on above: Performed By: #### B MP MG1, PHOS ####[place] [address] CO2 27 mmol/L Normal 23-[address] [facility] Comment on above: Performed By: #### B VIANCA MG1, PHOS ####[place] [phone] Creatinine 0.78 mg/dL Normal 0.70-1.[address] [facility] Comment on above: Performed By: #### B VIANCA MG1, PHOS ####[place] [address] eGFR (non-black) mL/min/{1.73_m2} Normal >60 [facility] Comment on above: Performed By: #### B VIANCA MG1, PHOS ####[place] [address] Glucose mass conc 119 mg/dL High 65-100 [facility] Comment on above: Performed By: #### B VIANCA MG1, PHOS ####[place] [address] Potassium molar conc 4.2 mmol/L Normal 3.5-5.[address] [facility] Comment on above: Performed By: #### B VIANCA MG1, PHOS ####[place] [address] Sodium 141 mmol/L Normal 132-[address] [facility] Comment on above: Performed By: #### B VIANCA MG1, PHOS ####[place] [id number] Urea nitrogen 15 mg/dL Normal 8-[address] [facility] Comment on above: Performed By: #### B VIANCA MG1, PHOS ####[place] [address] CBCon 02-15-2017 Erythrocyte distribution width Auto Ratio (RBC) 12.9 % Normal 11.5-15.[address] [facility] Comment on above: Performed By: #### C BC ####[place] [phone] Erythrocytes (RBC) 3.63 10*6/uL Low 3.90-5.[address] [facility] Comment on above: Performed By: #### C BC ####[place] [id number] Hematocrit (HCT) 33.8 % Low 36.0-46.[address] [facility] Comment on above: Performed By: #### C BC ####[place] [phone] Hemoglobin mass conc (Bld) 10.9 g/dL Low 11.5-15.[address] [facility] Comment on above: Performed By: #### C BC ####[place] [id number] MCH 30.0 pG Normal 26.0-34.[address] [facility] Comment on above: Performed By: #### C BC ####[place] [phone] MCHC mass conc (RBC) 32.2 g/dL Normal 30.5-36.[address] [facility] Comment on above: Performed By: #### C BC ####[place] [phone] MCV 93.1 fL Normal 80.0-100.[address] [facility] Comment on above: Performed By: #### C BC ####[place] [phone] Platelet mean volume (PMV) 8.5 fL Low 9.0-12.[address] [facility] Comment on above: Performed By: #### C BC ####[place] [id number] Platelets 368 10*3/uL Normal 150-[address] [facility] Comment on above: Performed By: #### C BC ####[place] [phone] WBC (Leukocytes) 11.75 10*3/uL High 3.70-11.00 [facility] Comment on above: Performed By: #### C BC ####[place] [phone] CBC and Differentialon 02-15 Abs Baso 0.02 k/uL Normal 0.00-0.[address] [facility] Comment on above: Performed By: #### C BCDIF ####[place] [phone] Abs Cross 0.97 k/uL High 0.00-0.[address] [facility] Comment on above: Performed By: #### C BCDIF ####[address] Abs Neut 8.11 k/uL High 1.45-7.[address] [facility] Comment on above: Performed By: #### C BCDIF ####[place] [phone] Basophils/100 WBC Auto (Bld) 0.1 % Normal [facility] Comment on above: Performed By: #### C BCDIF ####[address] DTYPE Auto Diff Normal [facility] Comment on above: Performed By: #### C BCDIF ####[place] [phone] Eosinophils 0.35 10*3/uL Normal 0.00-0.[address] [facility] Comment on above: Performed By: #### C BCDIF ####[place] [phone] Eosinophils/100 leukocytes 2.5 % Normal [facility] Comment on above: Performed By: #### C BCDIF ####[address] Erythrocyte distribution width Auto Ratio (RBC) 13.1 % Normal 11.5-15.[address] [facility] Comment on above: Performed By: #### C BCDIF ####[place] [phone] Erythrocytes (RBC) 3.51 10*6/uL Low 3.90-5.[address] [facility] Comment on above: Performed By: #### C BCDIF ####[address] Hematocrit (HCT) 32.6 % Low 36.0-46.[address] [facility] Comment on above: Performed By: #### C BCDIF ####[place] [phone] Hemoglobin mass conc (Bld) 10.7 g/dL Low 11.5-15.[address] [facility] Comment on above: Performed By: #### C BCDIF ####[place] [phone] Lymphocytes 4.35 10*3/uL High 1.00-4.[address] [facility] Comment on above: Performed By: #### C BCDIF ####[place] [phone] Lymphocytes/100 leukocytes 31.5 % Normal [facility] Comment on above: Performed By: #### C BCDIF ####[place] [phone] MCH 30.5 pG Normal 26.0-34.[address] [facility] Comment on above: Performed By: #### C BCDIF ####[place] [phone] MCHC mass conc (RBC) 32.8 g/dL Normal 30.5-36.[address] [facility] Comment on above: Performed By: #### C BCDIF ####[place] [phone] MCV 92.9 fL Normal 80.0-100.[address] [facility] Comment on above: Performed By: #### C BCDIF ####[place] [phone] Monocytes/100 leukocytes 7.0 % Normal [facility] Comment on above: Performed By: #### C BCDIF ####[place] [phone] Neutrophils/100 WBC Auto (Bld) 58.9 % Normal [facility] Comment on above: Performed By: #### C BCDIF ####[place] [phone] Platelet mean volume (PMV) 8.3 fL Low 9.0-12.[address] [facility] Comment on above: Performed By: #### C BCDIF ####[place] [phone] Platelets 391 10*3/uL Normal 150-[address] [facility] Comment on above: Performed By: #### C BCDIF ####[place] [phone] WBC (Leukocytes) 13.80 10*3/uL High 3.70-11.00 [facility] Comment on above: Performed By: #### C BCDIF ####[place] [phone] Glucose POCT ([facility], [place], [place] A Use Only)on 02-15-2017 Glucose mass conc 111 mg/dL High 65-[address] [place] [address] Comment on above: Performed By: #### G LUPOC ####[place] [phone] Glucose mass conc 121 mg/dL High 65-100 [facility] Comment on above: Performed By: #### G LUPOC ####[place] [phone] Glucose mass conc 99 mg/dL Normal 65[address] [place] [address] Comment on above: Performed By: #### G LUPOC ####[place] [phone] Glucose mass conc 116 mg/dL High 65-100 [facility] Comment on above: Performed By: #### G LUPOC ####[place] [phone] Magnesiumon 02-15-2017 Magnesium 2.0 mg/dL Normal 1.7-2.[address] [facility] Comment on above: Performed By: #### B REGGIE COLEY PHOS ####[facility] [place], [place] [phone] NURSING PROGon 02-15-2017 NURSING PROG HNO ID: [id number] thor: Lilibeth Ortega (Rn) Doroteo Santos: (none)Author Type: Registered NurseType: Nursing Progress NoteFiled: 02/15/2017 4:15 PMNote Text: Nursing Progress NotePatient Name: Marilee OlivierJustinN: [id number] Location: [facility]/[id number] Da nena Note: Dr called to inform that patient had another bloody stool itwas dark red, no change in vital signs HR has remained in 70's, on RA, noincrease in pain, patient is only taking sips of clears otherwiseunchanged , stable, lab orders again @ 1800.This note was completed by: Lilibeth Santos RN [facility] NURSING PROG HNO ID: [id number] thor: Lilibeth Ortega (Rn) Doroteo Santos: (none)Author Type: Registered NurseType: Nursing Progress NoteFiled: 02/15/2017 10:29 AMNote Text: Nursing Progress NotePatient Name: Marilee OlivierJeraldRN: [id number] Location: [place] [address]/YA-[id number]-00 Da nena Note:Patient states she's feeling ok, just brought up some 'phlegm',( clearbubbles) no emesis, able to keep down 'bites' or sips of broth and tea,given IV phenergan, denies pain, encouraged to continue to ambulate,stable, call light in reach.This note was completed by: Lilibeth Santos RN [facility] NURSING PROG HNO ID: [id number] thor: Liliana (Rn) Rolo, RNService: (none)Author Type: Registered NurseType: Nursing Progress NoteFiled: 02/15/2017 5:53 AMNote Text: Nursing Progress NotePatient Name: Marilee OlivierirMRN: [id number] Location: [place] [address]/[id number] Surgery paged [id number] Marilee Olivierir: patient had dark bloody BM. pleaseadvise. Rafita, Liliana [phone] No new ordersThis note was completed by: Liliana Seth RN [facility] PROGRESSon 02-15-2017 PROGRESS HNO ID: [id number] thor: Mark Anthony (Res) AdenugaService: General SurgeryAuthor Type: ResidentType: Progress NotesFiled: 02/15/2017 8:25 AMNote Text:General SurgeryProgress notesAdmitted: 02/13/2017OR date: 02/13/2017 Procedure(s) and Anesthesia Type: * LAPAROSCOPIC GASTRIC RESTRICTIVE SURG W/ BYPASS AND CRYSTAL-EN-Y = 40 (morbid obesity) ([facility]) E66.01 (02/12/2017) Morbid obesity ([facility]) (02/13/2017)Hold Lovenox/Toradol, recheck labs, decrease IVFPain control: [...] RNF, potential discharge tomorrowPaul MD Ted (PGY 2)[id number] 6PM weekdays and all through weekends: [id number] SNausea and emesis yesterday, improving and PO intake improvingSlept okayDark bloody BMs this AMAmbulating well OTemp (24hrs), Av.7 ?C (98 ?F), Min:36.4 ?C (97.6 ?F), Max:36.9 ?C(98.4 ?F)BP 147/78 Pulse 80 Temp 36.4 ?C (97.6 ?F) (Oral) Resp 16 Ht 154.9cm (5' 1 ) Wt (!) 150.6 kg (332 lb) LMP 01/27/2017 SpO2 99% BMI62.73 kg/o1ZTRCWBN: Mild distress as actively nauseated and sitting up with vomitbag, alert and oriented x 3HEENT: NC/AT, EOM's intactRESPIRATORY: Respiratory effort unlaboredCHEST-CVS: HDSABDOMEN: Soft, obese and non distended, non tender, laparoscopic incisionsCDI with glueNEURO: Grossly non-focal02/14 0700 - 02/15 0659In: 3622 [PO:300; IV:3322]Out: 2180 [Urine:1850] Normal [facility] PROGRESS HNO ID: [id number] thor: Renée LopezService: General SurgeryAuthor Type: PhysicianType: [...] PO intake improvesStacy Gale Lopez MD Normal [facility] Phosphoruson 02-15-2017 Phosphate 1.9 mg/dL Low 2.5-4.[address] [facility] Comment on above: Performed By: #### B MP, MG1, PHOS ####[facility] [place], [place] [phone] Vital Signs Date Time Vital Sign Value Performing Clinician Faci lity 09-19-2023 09:41-0500 Body height 157.48 cm [facility] 09-19-2023 09:41-0500 Body weight 104.32 kg [facility] Encounters Encounter Date Encounter Type Care Provider Facility Start: 11-21-2023 End: 11-21-2023 ambulatory FRANCOISE BARNES Not Available Start: 10-31-2023 End: 11-01-2023 ambulatory FRANCOISE BARNES Not Available Start: 10-23-2023 End: 10-24-2023 ambulatory Najma Richardson MD Facility:[facility] Start: 10-09-2023 ambulatory Jamey Minor acility:[facility] Start: 09-25-2023 Refill Francoise MARTINEZ Work Phone: [facility] Comment on above: Chronic pain of both knees Start: 09-19-2023 End: 09-19-2023 ambulatory Simona Szymanski Facility:[facility] Start: 09-19-2023 End: 09-19-2023 ambulatory NON STAFF [facility] Work Phone: Start: 09-19-2023 End: 09-19-2023 Patient encounter procedure [facility] [place] Work Phone: Start: 08-05-2023 End: 08-05-2023 ambulatory FRANCOISE BARNES Not Available Start: 07-26-2023 End: 07-26-2023 ambulatory FRANCOISE BARNES Not Available Start: 07-17-2023 Registered Rec[facility]ring [facility] Start: 06-05-2023 End: 06-06-2023 ambulatory [facility]aj[facility]patrickitis [facility] Start: 05-01-2023 End: 05-02-2023 ambulatory Andabimaelus Claudioytautas Finesseitis Facility:[facility] Start: 04-03-2023 End: 04-04-2023 ambulatory Andabimaelus Claudioytmariolaas Finesseitis Facility:[facility] Start: 02-27-2023 End: 02-28-2023 ambulatory Andzaira Kilpatrickitis Facility:[facility] Start: 02-13-2023 End: 02-14-2023 ambulatory [facility] Start: 11-07-2022 End: 11-08-[address] FRANCOISE BARNES Facility: Start: 06-27-2022 End: 06-27-2022 ambulatory SUNSHINE Keller Facility: Start: 04-27-2022 End: 10-26-2022 ambulatory FRANCOISE BARNES [place] Start: 04-22-[address] FRANCOISE BARNES Facil ity:H1 Start: 11-05-2021 End: 11-05-2021 Emergency department patient visit Tyler Petersen Facility[place] Start: 09-18-2018 Patient encounter procedure Ida Weber Facility:[id number] Start: 05-08-2018 Patient encounter procedure Ida Weber Facility:[id number] Start: 02-13-2018 End: 02-16-2018 Ambulatory FRANCOISE BARNES [facility] Start: 12-19-2017 Patient encounter procedure Ida [...] 02-18-2024 Influenza vaccination Influenza Vacc ine (#1) [facility] Comment on above: Postponed from 04/21 (Patient Refused) Start: 02-11-2024 Screening for malign ant neoplasm of breast Mammogram [facility] Start: 10-25-2023 End: 10-25-2023 Patient encounter procedure 10/25/2023 1:00 PM EST Office Visit [facility] [address] [place] [address] Francoise Barnes PA [address] [place] [address] [facility] Start: 12-14-2007 Screening for malign ant neoplasm of cervix [facility] Start: 1998 Screening for malign ant neoplasm of cervix Pap Smear [facility] Start: 1977 Screening for malign ant neoplasm of colon [facility] Immunizations Immunization Date Immunization Notes Care Provider Fa [facility] 05-30-2021 influenza, injectabl e, quadrivalent, preservative free Francoise MARTINEZ Work Phone: [facility] 05-30-2021 influenza virus vacc ine, unspecified formulation Francoise MARTINEZ Work Phone: [facility] 06-12-2020 influenza, injectabl e, quadrivalent, preservative free Francoise MARTINEZ Work Phone: [facility] 12-16-2018 tetanus toxoid, redu brina diphtheria toxoid, and acellular pertussis vaccine, adsorbed Francoise MARTINEZ Work Phone: [facility] Payers Date Payer Category Payer Self-pay [id number] 2022 Medicaid [id number] 2022 Medicaid [place] [id number] 2022-Present [address] [place] [address] [id number] 2022 Unknown 2018 Unknown [id number] 1977 Unknown [id number] 2.16.840.1.917938.3.579.2.356 1977 Unknown [id number] 2.16.840.1.257549.3.579.2.356 1977 Unknown [id number] 2.16.840.1.831447.3.579.2.356 1977 Unknown [id number] 2.16.840.1.683695.3.579.2.727 1977 Unknown [id number] 2.16840.1.746766.3.579.2.727 1977 Unknown [id number] 2.16.840.1.522000.3.579.2.593 1977 Unknown [id number] 2.16.840.1.769915.3.579.2.593 1977 Unknown [id number] 2.16.840.1.918481.3.579.2.593 1977 Unknown [id number] 2.16840.1.677653.3.579.2.196 1977 Unknown [id number] 2.16.840.1.321183.3.579.2.196 1977 Unknown [id number] 2.16.840.1.366659.3.579.2.196 1977 Unknown [id number] 2.16.840.1.686412.3.579.2.196 1977 Unknown [id number] 2.16.840.1.409867.3.579.2.196 1977 Unknown [id number] 2.16840.1.826938.3.579.2.196 1977 Unknown [id number] 2.16.840.1.424819.3.579.2.1259 1977 Unknown [id number] 2.16.840.1.371827.3.579.2.1259 1977 Unknown [id number] 2.16.840.1.745641.3.579.2.9 1977 Unknown [id number] 2.16.840.1.432513.3.579.2.1259 1959 Unknown [id number] Unknown [id number] 2.16.840.1.625599.3.579.2.531 Unknown [id number] 2.16.840.1.711374.3.579.2.531 Social History Date Type Detail Facility Tobacco smoking stat us [facility] Unknown if ever smoked [facility] Work Phone: Start: 1975 Sex Assigned At Female [facility] Start: 09-18-2018 End: 01-23-2023 Tobacco smoking status VAIS Never smoked tobacco (finding) [facility] Start: 01-23-2023 Tobacco use and exposure Smokeless tobacco non-user [facility] Start: 07-26-2023 Alcohol intake Ex-drinker (finding) [facility] Start: 01-24-2023 End: 07-26-2023 History of Social function [facility] Start: 01-24-2023 End: 07-26-2023 Tobacco use panel [facility] Start: 04-26-2023 Alcohol Comment Caffeine intake: sod a [facility] Start: 1975 Sex Assigned At Not on file [facility] Telephone encounter Note 09-25-2023 Telephone Encounter - MICHELLE Cao - 09/25/2023 10:06 AM EST Note Date & Type Note Facility 09-25-2023 Telephone encount er Note OARRS reviewed, Rx sent into patient's pharmacy. [facility] Note 09-25-2023 Telephone Encounter - MICHELLE Cao - 09/25/2023 10:06 AM EST Note Date & Type Note Facility 09-25-2023 Miscellaneous Notes Formattin g of this note might be different from the original. OARRS reviewed, Rx sent into patient's pharmacy. documented in this encounter [facility] Clinical Note 06-27-2022 Note Date & [...] authenticated by: EM LÓPEZ Date: 2022-06-27 15:38 [facility] Progress note 06-28-2021 Note Date & Type Note Facility 06-28-2021 Note HNO ID: [id number] Author: Em Fernandez, PhD Service: ? Author Type: Psychologist Type: Progress Notes Filed: 06/28/2021 2:45 PM Note Text: Received mental health records from [facility]. Note from 05/06/21 revealed pt has Schizoaffective [...] medical records for scanning. Em Fernandez, psychologist [facility] Evaluation note Note Date & Type Note Facility Evaluation note No assessment information availa [facility] Work Phone: Evaluation note Note Date [...] FoundNo Family History Records Found Advance Directives No Advanced Directives Records Found Advance Directive Response Recorded Date/ Time Advance Directives No April 9:18am Chief Complaint and Reason for Visit Chief Complaint BH Lumbar Radiculopathy Additional Source Comments INFORMATION SOURCE (unrecogn ized section and content) DATE CREATED AUTHOR 02/14/2018 [facility] DATE CREATED AUTHOR AUTHOR'S ORGANIZ ATION 02/16/2018 [facility] DATE CREATED AUTHOR AUTHOR'S ORGANIZ ATION 10/09/2018 [facility] DATE CREATED AUTHOR AUTHOR'S ORGANIZ ATION 10/11/2021 [facility] DATE CREATED AUTHOR AUTHOR'S ORGANIZ ATION 10/28/2022 [facility] DATE CREATED AUTHOR AUTHOR'S ORGANIZ ATION 11/13/2022 [facility] DATE CREATED AUTHOR AUTHOR'S ORGANIZ ATION 10/27/2023 [facility] DATE CREATED AUTHOR AUTHOR'S ORGANIZ ATION 11/22/2023 [facility] EPIC DATE CREATED AUTHOR AUTHOR'S ORGANIZ ATION 12/02/2023 [facility] Goals (unrecognized section and content) Goals may be documented in a n alternate sectionGoals may be documented in an alternate section Care Teams (unrecognized sec tion and content) Team Status: Active Member Role Status Dates NON STAFF Primary Care Provider Active Team Status: Active Member Role Status Dates NON STAFF Primary Care Provider Active Start: July 17, 2023 Jmaey Morgan MD Attending Provider Active Start: July 17, 2023 Team Status: Inactive Member Role Status Dates NON STAFF Primary Care Provider Active Start: September 19, 2023 End: September 19, 2023 Simona Szymanski NP-C Attending Provider Active St art: September 19, 2023 End: September 19, 2023 Acid Dumper Relationship Specialty Start Date End Date Shalini Coffey MD [address] [facility] [address] [place] [address] PCP - General Family Medicine 08/05/23 Reason [...] BE BASED ON THE PRIMARY CLINICAL RECORDS. [email or web address] provides no warranty or guarantee of the accuracy or completeness of information in this document.
--- NOTE | 2023-12-03 21:03 | ED_ITS ---
HPI - Abdominal Pain General Chief Complaint: Abdominal Pain Stated Complaint: Abdominal Pain Time Seen by Provider: 12/03/23 20:56 Source: patient Mode of arrival: walk-in Limitations: no limitations History of Present Illness HPI narrative: This 47-year-old female who had gastric bypass surgery at [facility] in 2017 presents for evaluation of of upper abdominal cramping, burning and nausea . She has not had any vomiting or diarrhea. She last ate pizza. She denies eating anything yesterday that was out of the ordinary for her. She does not have any sick contacts.she denies any urinary symptoms. She has no back pain. She is not on any proton pump inhibitors or stomach medications at this time. Related Data Home Medications ?Medication ?Instructions ?Recorded ?Confirmed acetaminophen 650 mg 650 mg PO Q12H PRN pain 02/13/23 12/03/23 tablet,extended release (Tylenol Arthritis Pain) aripiprazole 400 mg suspension, 400 mg IM Q28D 02/13/23 12/03/23 extended rel.intramuscular syringe ([address]) buspirone 30 mg tablet 30 mg PO BID 02/13/23 12/03/23 lumateperone 10.5 mg capsule 10.5 mg PO DAILY 02/13/23 12/03/23 (Caplyta) tramadol 50 mg tablet 50 mg PO BID PRN pain 02/13/23 12/03/23 trazodone 300 mg tablet 300 mg PO DAILY PRN sleep 02/13/23 12/03/23 venlafaxine 100 mg tablet 300 mg PO DAILY 02/13/23 12/03/23 zolpidem 5 mg tablet (Ambien) 5 mg PO BEDTIME PRN sleep 02/13/23 12/03/23 tizanidine 4 mg tablet 4 mg PO BEDTIME 04/18/23 12/03/23 acarbose 25 mg tablet 25 mg PO DAILY 08/01/23 12/03/23 cholecalciferol (vitamin D3) 250 10,000 unit PO DAILY 08/01/23 12/03/23 mcg (10,000 unit) capsule hydroxyzine pamoate 25 mg capsule 25 mg PO DAILY 08/01/23 12/03/23 lamotrigine 150 mg tablet 300 mg PO DAILY 12/03/23 12/03/23 Allergies Allergy/AdvReac Type Severity Reaction Status Date / Time erythromycin base Allergy Unknown Verified 10/23/23 09:23 [From E-Mycin] Penicillins Allergy Unknown Verified 10/23/23 09:23 shellfish derived Allergy Unknown Verified 10/23/23 09:23 Sulfa (Sulfonamide Allergy Unknown Verified 10/23/23 09:23 Antibiotics) codeine Allergy Verified 10/23/23 09:23 Review of Systems ROS Status of ROS 10 or more systems reviewed and unremark able except as noted in history and below PFSH PFS Medical History Surgical History S/P endometrial ablation ?Z98.890 - Other specified postprocedural states (ICD-10) S/P right knee arthroscopy ?Z98.890 - Other specified postprocedural states (ICD-10) H/O gastric bypass ?Z98.84 - Bariatric surgery status (ICD-10) S/P tonsillectomy ?Z90.89 - Acquired absence of other organs (ICD-10) Social History Smoking status: Never smoker Exam Narrative Exam Narrative: Nurses note and vital signs reviewed and patient is not hypoxic. General: Obese female resting comfortably on the stretcher, no respiratory distress, no active vomiting Skin: Warm, dry, no pallor noted. There is no rash noted. Head: Normocephalic, atraumatic Eye: Normal conjunctiva, no drainage, EOMI. PERRL. No scleral icterus Ears, Nose, Mouth, and Throat: oral mucosa is moist. Nares patent. Mouth without vesicles. Cardiovascular: Regular Rate and Rhythm S1S2, nomurmurs, rubs or gallops Respiratory: Patient is in no distress, no accessory muscle use, lungs are clear to auscultation, no wheezing, rales or rhonchi Back: non-tender, no CVA tenderness bilaterally to percussion. GI: Obese, soft, mild epigastric tenderness without rebound, guarding or rigidity Musculoskeletal: The patient has no evidence of calf tenderness, no pitting edema, symmetrical pulses noted bilaterally Neurological: A&O x4, normal speech Psychiatric: Cooperative Constitutional Vital Signs, click to edit/add: Last Vital Signs Temp 97.7 F 12/03/23 20:47 Pulse 96 H 12/03/23 20:47 Resp 18 12/03/23 20:47 BP 122/82 12/03/23 20:47 Pulse Ox 96 12/03/23 20:47 O2 Del Method Room Air 12/03/23 20:47 Course Vital Signs Vital signs: Vital Signs Temperature 97.7 F 12/03/23 20:47 Pulse Rate 96 H 12/03/23 20:47 Respiratory Rate 18 12/03/23 20:47 Blood Pressure 122/82 12/03/23 20:47 Pulse Oximetry 96 12/03/23 20:47 Oxygen Delivery Method Room Air 12/03/23 20:47 Temperature 97.7 F 12/03/23 20:47 Pulse Rate 96 H 12/03/23 20:47 Respiratory Rate 18 12/03/23 20:47 Blood Pressure 122/82 12/03/23 20:47 Pulse Oximetry 96 12/03/23 20:47 Oxygen Delivery Method Room Air 12/03/23 20:47 MDM - Abdominal Pain MDM Narrative Medical decision making narrative: This 47-year-old female who is status post gastric bypass surgery in 2017 who is also had surgery for pyloric stenosis as an presents for evaluation for evaluation of epigastric and upper abdominal pain associated with nausea. She has not vomited or had any diarrhea. She has not had a fever. An IV was placed and she was medicated with IV fluids, Zofran, Pepcid and Bentyl. On reevaluation she was feeling better but had some ongoing nausea. She was re- medicated with an additional dose of Zofran with better control of her nausea. She has not had any vomiting. Routine labs are reviewed. She has a normal white count and hemoglobin. Routine labs are reviewed. She has a normal white count and hemoglobin. Electrolytes and lipase are normal. CT scan of the abdomen pelvis shows gallstones and is otherwise essentially normal. The results of the CT scan were discussed with the patient and her family. She feels comfortable being discharged home now. She will be referred to outpatient general surgery. Her gastric bypass surgery was at [facility] and I suggested that she follow-up with closely with general surgery for further evaluation and treatment. Lab Data Labs: Lab Results 12/03/23 Range/Units 21:00 WBC 11.1 H (4.0-11.0) 10^3/uL RBC 4.42 (4.20-5.40) 10^6/uL Hgb 13.3 (12.0-16.0) g/dL Hct 41.1 (36.0-48.0) % MCV 93.0 (81.0-99.0) fL MCH 30.1 (26.7-34.0) pg MCHC 32.4 (29.9-35.2) g/dL RDW 12.2 (11.0-15.0) % Plt Count 380 (150-450) 10^3/uL MPV 8.4 L (9.5-13.5) fL Neut % (Auto) 59.8 (43.0-75.0) % Lymph % (Auto) 30.9 (20.5-60.0) % [place] % (Auto) 6.5 (1.7-12.0) % Eos % (Auto) 2.4 (0.9-7.0) % Baso % (Auto) 0.1 L (0.2-2.0) % Neut # (Auto) 6.6 H (1.4-6.5) 10^3/uL Lymph # (Auto) 3.4 (1.2-3.8) 10^3/uL [place] # (Auto) 0.7 (0.3-0.8) 10^3/uL Eos # (Auto) 0.3 (0.0-0.7) 10^3/uL Baso # (Auto) 0.0 (0.0-0.1) 10^3/uL Abs Immat Gran (auto) 0.03 (0.00-0.03) 10^3/uL Imm/Tot Granulo (auto) 0.3 (0.0-0.5) % Sodium 141 (136-145) mmol/L Potassium 4.0 (3.5-5.1) mmol/L Chloride 105 (98-107) mmol/L Carbon Dioxide 27.8 (21.0-32.0) mmol/L Anion Gap 12.2 BUN 10.0 (7.0-18.0) mg/dL Creatinine 0.96 (0.55-1.02) mg/dL Est GFR ( Amer) >60 (>=60) Est GFR (Non-Af Amer) >60 (>=60) BUN/Creatinine Ratio 10.4 Glucose 68 L (74-106) mg/dL Calcium 9.0 (8.5-10.1) mg/dL Total Bilirubin 0.2 (0.2-1.0) mg/dL AST 13 L (15-37) U/L ALT 17 (14-59) U/L Alkaline Phosphatase 78 (46-116) U/L Total Protein 6.9 (6.4-8.2) g/dL Albumin 3.0 L (3.4-5.0) g/dL Globulin 3.9 g/dL Albumin/Globulin Ratio 0.8 Lipase 22.0 (16.0-77.0) U/L Discharge Plan Discharge Stand Alone Forms: Portal Instructions Chief Complaint: Abdominal Pain Clinical Impression: Gallstones, Abdominal pain Patient Disposition: Home, Self-Care Time of Disposition Decision: 02:23 Condition: Good Prescriptions / Home Meds: No Action acarbose 25 mg tablet 25 mg PO DAILY hydroxyzine pamoate 25 mg capsule 25 mg PO DAILY cholecalciferol (vitamin D3) 250 mcg (10,000 unit) capsule 10,000 unit PO DAILY lamotrigine 150 mg tablet 300 mg PO DAILY Caplyta 10.5 mg capsule 10.5 mg PO DAILY buspirone 30 mg tablet 30 mg PO BID trazodone 300 mg tablet 300 mg PO DAILY PRN (Reason: sleep) venlafaxine 100 mg tablet 300 mg PO DAILY tramadol 50 mg tablet 50 mg PO BID PRN (Reason: pain) zolpidem [Ambien] 5 mg tablet 5 mg PO BEDTIME PRN (Reason: sleep) acetaminophen [Tylenol Arthritis Pain] 650 mg tablet extended release 650 mg PO Q12H PRN (Reason: pain) Abilify Maintena 400 mg suspension,extended rel syring 400 mg IM Q28D tizanidine 4 mg tablet 4 mg PO BEDTIME Print Language: Wolof Instructions: Gallstones (ED), Low Fat Diet (ED), Abdominal Pain (ED) Referrals: SHWETA BARNES [Primary Care Provider] - 1 week
[2023-12-03 21:09] LABS: Basophils Percent Auto 0.1 % (0.2-2.0); Eosinophils Absolute Auto 0.3 10^3/uL (0.0-0.7); Eosinophils Percent Auto 2.4 % (0.9-7.0); Hematocrit 41.1 % (36.0-48.0); Hemoglobin 13.3 g/dL (12.0-16.0); Immature Granulocytes Abs Auto 0.03 10^3/uL (0.00-0.03); Immature Granulocytes Pct Auto 0.3 % (0.0-0.5); Lymphocytes Absolute Auto 3.4 10^3/uL (1.2-3.8); Lymphocytes Percent Auto 30.9 % (20.5-60.0); Mean Corpuscular HGB Conc 32.4 g/dL (29.9-35.2); Mean Corpuscular Hemoglobin 30.1 pg (26.7-34.0); Mean Platelet Volume 8.4 fL (9.5-13.5); Monocytes Absolute Auto 0.7 10^3/uL (0.3-0.8); Monocytes Percent Auto 6.5 % (1.7-12.0); Neutrophils Absolute Auto 6.6 10^3/uL (1.4-6.5); Neutrophils Percent Auto 59.8 % (43.0-75.0); Platelet Count 380 10^3/uL (150-450); Red Blood Count 4.42 10^6/uL (4.20-5.40); Red Cell Distribution Width 12.2 % (11.0-15.0); White Blood Count 11.1 10^3/uL (4.0-11.0)
[2023-12-03] MEDS: 0.9 % SODIUM CHLORIDE 1,000 ML 1000 ML IV (21:14)
[2023-12-03] MEDS: DICYCLOMINE HCL 10 MG CAPSULE 20 MG PO (21:16)
[2023-12-03] MEDS: FAMOTIDINE/PF 20 MG/2 ML VIAL IV (21:16)
[2023-12-03] MEDS: ONDANSETRON PF 4 MG/2 ML VIAL IV ×2 (21:16→23:38)
[2023-12-03 21:29] LABS: Alanine Aminotransferase 17 U/L (14-59); Albumin Globulin Ratio 0.8; Alkaline Phosphatase 78 U/L (46-116); Anion Gap 12.2; Aspartate Amino Transferase 13 U/L (15-37); BUN Creatinine Ratio 10.4; Bilirubin Total 0.2 mg/dL (0.2-1.0); Carbon Dioxide 27.8 mmol/L (21.0-32.0); Chloride 105 mmol/L (98-107); Estimated GFR (African America >60 (>=60); Estimated GFR (Non-African Ame >60 (>=60); Globulin 3.9 g/dL; Glucose 68 mg/dL (74-106); Sodium 141 mmol/L (136-145); Total Protein 6.9 g/dL (6.4-8.2)
--- NOTE | 2023-12-03 21:49 | CT_ITS ---
The [address] [address] Patient Name: NAYA ARRIAGA MRN: [id number] date: 1975 Sex: F Assigned Patient Location: ER Current Patient Location: ER Accession/Order Number: [id number] Exam Date: 12/03/2023 23:55 Report Date: 12/04/2023 02:07 At the request of: SERGIO MARKER Procedure: CT abdomen pelvis w con EXAM: CT abdomen pelvis w con HISTORY: upper abd pain, PO and IV contrast COMPARISON: CT abdomen and pelvis examination dated 08/11/2023. TECHNIQUE: Axial CT images through the abdomen and pelvis were obtained with coronal and sagittal reformats. Dose reduction techniques were achieved by using automated exposure control and/or adjustment of mA and/or kV according to patient size and/or use of iterative reconstruction technique. FINDINGS: The visualized portions of the lung bases are clear. Abdomen: The liver and spleen enhance homogeneously without focal lesion. There is no intra or extrahepatic biliary duct dilatation. There is suspected cholelithiasis without evidence of acute inflammation. The liver is enlarged measuring up to 17.2 cm at the right midclavicular line. There are postsurgical changes of a gastric bypass. Otherwise, the pancreas, adrenal glands, kidneys, and bowel loops, including the appendix, are unremarkable. There is no mesenteric or retroperitoneal lymphadenopathy. Possible scarring is seen within the left aspect of the abdominal pannus. Pelvis: The bladder and rectum are unremarkable. There is no iliac or inguinal lymphadenopathy. The uterus is present. The ovaries appear within normal limits by CT. Bone windows show no aggressive osseous lesions. CT/CT abdomen pelvis w con IMPRESSION: 1. Suspected cholelithiasis without evidence of acute inflammation. 2. Hepatomegaly. 3. Status post gastric bypass. 4. Normal appendix. Electronically authenticated by: Christian RIVERA Date: 12/04/2023 02:07
[2023-12-04] MEDS: 0.9 % SODIUM CHLORIDE 1,000 ML 1000 ML IV (00:23)
== END 2023-12-04 02:37 | disposition home or self-care (01) ==
PROVIDERS: Emergency Provider Emergency Medicine; PCP Physician Assistant
DX: K80.20 Calculus of gallbladder without cholecystitis without obstruction (principal); R10.9 Unspecified abdominal pain; Z98.84 Bariatric surgery status; Z79.899 Other long term (current) drug therapy; Z98.890 Other specified postprocedural states; Z90.89 Acquired absence of other organs; E66.9 Obesity, unspecified; Z68.43 Body mass index [BMI] 50.0-59.9, adult
CPT/HCPCS: 36415; 74177; 80053; 83690; 85025; 96374; 96375; 96376; 99285; Q9966; Q9967

== ENCOUNTER 2023-12-04 08:31 | Day surgery (SDC) | payer MEDICAID, SELFPAY ==
--- OUTSIDE RECORDS SUMMARY | 2023-12-04 08:44 | XMS_ITS | CCD ---
Author Organization [facility] Care Team Providers Care Cardiovascular Disease Specialist Name Role Phone FRANCOISE BARNES Unavailable Unavailable [...] Unavailable MISC, DR SLOAN Primary Care Unavailable [place], DR EM Snyder Consulting Unavailable TRENT ., [...] Kapoor Attending Provider MAHIN Szymanski Attending Provider [phone] Shalini Coffey MD Primary Care Provider [phone] Debra SIERRA, Najma Jay Attending Unavailable Debra [...] (1 source) Cephalexin; Translations: [Keflex] Drug Allergy [facility] Repository (5 sources) Clindamycin; Translations: [clindamycin] Drug Allergy 7 Rash [facility] Repository (6 sources) Codeine; Translations: [codeine] Drug Allergy 7 [facility] Repository (1 source) NSAIDs; Translations: [NSAIDs] Propensity to adverse reactions (disorder) [facility] Repository (4 sources) Penicillins; Translations: [penicillins] Propensity to adverse reactions (disorder) 7 [facility] Repository (1 source) Sulfonamides (Antibiotic); Translations: [sulfa drugs] Propensity to adverse reactions (disorder) [facility] Repository (1 source) alot of ATB's, I dont know names; Translations: [alot of ATB's, I dont know names] Propensity to adverse reactions (disorder) [facility] Repository (1 source) Penicillin Drug Allergy [facility] Repository (1 source) Sulfonamides (Antibiotic) Drug allergy (disorder) [facility] Repository (3 sources) Sulfonamides (Antibiotic); Translations: [Sulfa (Sulfonamide Antibiotics)] Allergy to substance 7 [facility] (3 sources) erythromycin base; Translations: [erythromycin base] Allergy to substance 7 [facility] (1 source) Bacitracin / Polymyxin B Drug Allergy 3 [facility] Work Phone: (1 source) Ciprofloxacin Drug Allergy 3 Rash [facility] (1 source) Erythromycin Drug Allergy 5 Hives [facility] (1 source) Penicillin G Drug Allergy 3 [facility] (1 source) Sulfonamides (Antibiotic) Drug Allergy 5 Hives [facility] (1 source) Soap Allergy to [...] evening. Take with meals. 0 04/25/2023 Active [id number] 200 actuat albuterol 0.09 mg/actuat metered dose [...] 15, 2017 11:00pm take 1 tablet by ayal th every twelve hours busPIRone (Buspar) 30 MG tablet Take 30 mg by mouth every 12 (twelve) hours. 0 Active cholecalciferol 0.25 mg oral capsule (1 source) Vitamin D Start: 02-06-2023 take 1 capsule by mouth once daily cholecalciferol (Vitamin D-3) 250 MCG (73495 UT) capsule Indications: Vitamin D deficiency Take 1 capsule (250 mcg) by mouth 1 (one) time each day at the same time. 90 capsule 3 02/06/2023 Active Continuous Blood Gluc Acute Dialysis Nurse (FreeStyle Samreen 2 Hiram) device (1 source) Start: 02-23-2023 Continuous Blood Gluc Acute Dialysis Nurse (FreeStyle Samreen 2 Hiram) device USE DIRECTED 0 02/23/2023 Active Continuous [...] Start: 08-15-2017 take 2 tablets by mo [facility] once daily Multivit With Min-Folic Acid (Centrum [...] (1 source) Polyene Antifungal nystatin (Mycostatin ) [id number] UNIT/GM powder Apply 1 application topically in [...] wo conon MR lumbar spine wo con [facility] [place] [address] MRI Report Signed Patient: Marilee Arriaga MR#: [id number] : 1975 Acct:[id number] Age/Sex: 47 / F ADM Date: 09/19/23 Loc: Room: Type: [facility] Attending Dr: Simona STOCKTON Copies to: MAHIN [...] Beckford Jr., D.O.09/19/2023 2:27 PM Dictation Location: [place] [address] Transcribed By: [facility] 09/19/23 1427 Dictated By: Linden Beckford Jr, DO 09/19/23 1412 Signed By: 09/19/23 1427 Normal [facility] XR pre/post mri xrayon 09-19 XR pre/post mri xray [facility] [place] [address] [place] [address] XRay Report Signed Patient: Marilee Arriaga MR#: [id number] : 1975 Acct:[id number] Age/Sex: 47 / F ADM Date: 09/19/23 Loc: Room: Type: [facility] Attending Dr: Simona STOCKTON Copies to: MAHIN [...] Beckford Jr., D.OArianna09/19/2023 3:08 PM Dictation Location: [facility] Transcribed By: [facility] 09/19/23 1508 Dictated By: Linden Beckford Jr, DO 09/19/23 1507 Signed By: 09/19/23 1508 [facility] ECHOCARDIO M/2D COMPLETEon 0 11-07-2022 ECHOCARDIO M/2D COMPLETE Patient: MARILEE ARRIAGA Exam Date: 11/07/2022 : 1975 Gender:F Ordering : DR FRANCOISE MARTINEZ Admission #: [id number] Family : Order #: [id number] CLICK HERE TO VIEW EXAM ECHOCARDIOGRAM REPORT [...] Shay Masters M.D. on 11/07/2022 at 19:16 [facility] Coding Summary.on 05-04-2022 Coding Summary. CD:[id number] Gh0bWw+PGh lYWQ+KL7LHIBeC36uuHNanO5VX0iRA V3KNNFEAHJOHF3RPS7fpLH6RTtyO0D ybiAv JxiieSJjIH14SDf7JFH9hVmgKKtidP 3cqNTfK6i5BxBqUE69uV40ATahWPRp XeU8CaYpomwefMCo E2syZpUgtNRzXws+PHRhYmxlIHdpZH FdKXrqJCFtOwHurOqbTK2eBf4kGLKt LWNvbGxhcHNlOiBj k1fgDIFoJMwePX0rmOjfI0EytBG2MY Ryt6c4Sz55rQB+MQEeWXW0zSjiWRyn y967YhRmw9paPXX5 qKCyGIduZJW9Z10ep0Q1OCCpLXQzPI H4kIZ0iS5mxMfxdvvaA6YwaJIvAwN1 PNT4eEOyqN3ggDjj smfgtY2nClr+Y01GDN0ABKZGYP7SJo c4I1QyXyhjjCJ+YE14NGTzGS60vZTm dRWkv3oyqDo4TlTp OHSzTAU3xIzbJZgpu0OkIZVxQ16oeS Atn7Q0FJMydDpesHCqNkIifDD6rF0o ZJdklpugi6mitquy Iyklh6qywx11uL31A31cHBcyBHEzRA Y8NGTkPEOpxIwety0tlB5aFs2+IDxj u7qox0dfvGo2FtFy XAIezrKwoWkaUZZ5k7KnKn16R9UuhU ovr2PqVgp2ht93sIVsd2Q9cSQ8XUcu NQMurW3pJYbyZnN0 TIVfPuWrwL16dMRpGOwqHj1dbKfmuT abAV8hUDYynrymSPIfcH0hJFBmcMGd kHceNW9kZBYeaonb j419XeEcRHM9IGXlaUPsG0CakO5nHo LrSGVoKZTkS8JpkGUmTMfvH204GEdc AcL4QGZfxgMfQ3Oj DEVsgNwxIjC7q1N9Ms8Uh1QcmmpvYA G2AQkoNTQ7ViH0CxHzHtO9U3WgYal7 MQNvdIvoFL7rG5Jj ZQAzcqejfjnxaUS3WGCaGGEtyJ81dH EuGAfmZs7pz1Z6e486MYTmCOWflC48 Hc5kuPbgCVVqyCHI nY9uchxtq1jirsggKpJcNVJyAAs7UD i3WWTgaQpwCvYlWRC8IwW1ZPY1oPQb gF1heFcljgamiR6u Oyc+Z63cpI4hHQO7TNT9gnvaMRJtoj HbMU28CS57D2SiNqysjEOjzUA+PGRp zeAfmFxnOJ9kIzOv g8wby2XoCEpcX1TgWQCyWWgtPmn1CT YqSOV8zMU8fL1mOBDfQSrqz3V9vQU6 C9QtxzLdrp7en7ew NYMjEWsdW33gyAZpx6N1VPXklDB8ZB DrqBmqLsOpmN03Ddi+GPRtbUnyn4Lu Cugtk1zek2hirCq8 YgNwJFFhjgJqmDsaRXC9d6ElHf12X1 1fNYpfSVAzCLOzQPSbZKOkeHhgof3i cW3vDi4+PGNvbCB3 eUL6cW9mMUDmBoX7WRffH454YwLbzF AiRpyyy9iuv7zhnOr5UfPyQZCboeCt tUgxPDL6n5XiCp56 A69qTTjuOMHdYGOsVDZrEMTrdPftlv 6nbR9vAt3+CV7cx7gvhv21yI02hWB+ LXGkPHH5dWttMKkp TNJzgC9aUVboUiN7EJPdWvNddV27jE JgMSygXq5ktWwaxXawUD6tXLXjatmb s437FaRfv0hcKTRx rLUuFWqfTGB0P38br9X6IZCaIYQfOG A4nBD5gE7fhBdfgloeiGRgsRbzgkWt hBhiGRpdQSczX215 KPDllEqtNrGkgXpazfPcTzDqZIx2T3 WiVem4PWYhpRtgQY9foEEmHNxaMs3k kOixfAxsSZ0aHXVl gwdvi336OxEho0nkOOKvtCRdXBdbJD U9S20bf2Y3GMNkZSChLMA9dBQ1hS1q bGlnbjogbGVmdDsg myXdeAouQEjgGWnhB236FHAqvTihVx UmzsYhZVYdxRZ6MN36OJ23qEGfx5H7 jDG5L4BwEUXiiinq nztbbKB5ZXSnBEJqkO14Cq3llRwlVt 4eZKZxIQO3MTYpuDCqK4ZqfT1tLaYg RPMlTZDkV2RvuDLo IMxnJ191OGidPoN2OHLixuElK4LdDI JywAccQiN1c1O5Pp2AB9O4ND84TX60 rMMjz7R0dHO3U5Bo TNOgrzdpiezczPP3GZPqCSFtnQ13Bj 2wnXryZr1eJSYcPED2JFCgoCMzI0Sm qD9wYjScJQMlKJFn L0TohOKyGVutU197MYyyCaB1OJMqyg XeE7QzLXJahZdaYwZ7a7C2Dl7OVHh2 EH43GS51kVEqj2H2 fSO3D5CwGICekcycieauvNW5AVZtEM ZkzX35Ie3nnFwdUx2qGUVqNGG6CJVr hANoH6TwwE4eIaAx AFQkADTqO1SrmTHmPDgeZ297JQpdZd O7RLMarcQsO1XhPRPbiSynPtU2y3X5 Th3GWNQnJG17RHD8 xGX7IR95GP92U2YiRzrwwXWoyIP+PH RhYmxlIHdpZHRoPScxMDAlJyBzdHls UH5yXv6jVMHcPRDk fDzquLMyCgNnb5utZRGvTAxfZQ0irW znC3QgqOJ2PPZiv3v5Sm88P19yZ6Jh dXA+MYBlpTX9gWB6 pF3vHaPzRuP8BXylA943CjNibJPxMe dla0jda0dvqFy4JsM2LEGoutPyzAcp STI8v2CmFq38P82w SFadMJLhRHAvMOQmVXZdiYbhsh9kqL 9wIi8+TQCyqRT6uVC2hK0eHzTkTiC3 YOfaM830PqSatBRi Ilvcy9qyc5jqhIg5WeOiCOEszmJsvC lqPVZ2l0PhGy23J6UyqHybk4AjYpi4 fm15xZWst2D9iHS7 B0FiSNRbjfyeuGKdpIivKD0zHINlke vlVYCfmZ8qKMTtJ5a9GjWzZqW6EYrg U7YlelR0EZMgxGTv RSleQVZ1X37po7R1HYFbWWNbCRA3eE U7qG3hoQrcedwdbYEsdBrnjqRaoUjz PVnjMFycE217NXXj aHopYALibM6bSPMwlILjxJwoOA8iPB WupswmGfNEYSeZCPYPUH2SXCZSIpXC FK94BY68yHTlv0N7 dNQ4V5HrOIXgirgnxtjvlGG0SRTiID RggB74tHNgBQleZp5xm3G3a680KILh LUKkpT54Tg6xxRgv AIJmvPNAaV5nhgixx7zthlmhQiAjGP CqUXo5KZs1TONgyBmeJiTqEWR2QnL1 HOO5gLJaoC0guOfs wdfnxE9bHhk+ITDjEaUrIPb8ZEpisV Q+IJWrJBR6zGkzOFuoFZBbgZ2zAROu O8f6OyPaVaI0QJxu L2QoYTHbqzltHp33mI5wLaZzBqX3AF azN1MdtaP7EWTucONwTXflRTE0K35d h9K3KLWvSNCsTIW0 zYZ2mI8njSrjxgjjdQXdeQrcsgJptS faVElzXCihI493GVUzqTxaKzP1GFhf KKRnSJ83MT47jWOd c5Y5kPC4C3ZvEVRpasjtrnasiYW1NK JeRXAyeJ35oYRcABhfRc7ns3Q5d780 COLrCJRdbH16Uh9x mLwgEQOfmSDIaI0ywrnvd2hiimcqQe QiVALtVSl8YSj5KUKkrZbvFrMdZTP7 JgK7JOU3hKKdhK2a iQkfympdvE9qMhz+NdDuZRvkWO27YA 56dOGuz8V5kNH7V7RtMCCeqkmmjuki oTI2SGFkXOAfsI38 eKDiLEirFp6aa3E2j498FZHrDBDbcJ 80Qt2tyGbhAYUmoSECtL9lvpydj9vx cjogIzAwMDAwMDt0 IVi6BOVpbYorLtMrWDA3AfD4WMM6bA KleY0ivLihuhaagV8vLvp+UmVjdXJy jF8yEA25SM37N3Yp PjwvdGFibGU+PHRhYmxlIHdpZHRoPS ziXFZyUsYwaQniLK0rRx5uCKCeODGa yKruaGGgUxAsd1gw SOHmJIucIY4nwEsxA9FrxYO5CKIoo7 z1Th02L81qN0UbcRL+PMYyxWC3sWV4 zA0qNbEcOvR6NNek Y808HdNcmTNqOgulg4non6hssTy6Mz YlNOAhaaDntXopRZV7t8JpWf50V08c IHdpZHRoPSIyMCUi HLQmlBqtkq1fvQ7jDv2+MBStfXX5mX U6pT6pEtSdJkJ6DXdyF676KhPvaVXw XnugI62kS4HvvZK+ PYXtUwe9SJDhcQjaUB1xyBWjZLttEn 6jHZN2PsIgDpPeKTqcP4SqDRFfnkhh immwrGU1XTAcWSZq eO31Nt6peQkaPi3vRBCrZVG8QJFjdC QyH9LfgT1yKzHwDDBiELMiK3BfxPUj INomN943UYogEnX4 GSWrrkNbJ7UyUBMfqKnpPuS9o0K2Bm 9DxHqljKGaGN4bLvWuGVe7R4DmHjj7 TSMcfIueMZ0irQXg PKcuFn4yiMcrlHumMC0uGSTmgeegg3 14IeIil6vdVFJbjDBrBUsvBDG7Y05t v2E9ZNSxNGVqQUX6 eKY5bI8peHlwyurgvBZkcKjsxrJmbJ tnOByoYSokV210NHFusRjgMtPUCxs2 K6HwDow4GPSywQqs ER2oaBUeKMxzTa5hzHixxAxnVF6lQP Cxkkpob068LdTpw0pqNREnrTEoXXgg VHB5L29ou4C2IXBu IMKkGGW3dVZ6pT6ikNcwbbomkCGtsU ghpvBfyPkkYJtcJWlmG418XOGldYlf Kg3URzq7V0QpIas2 CVDkrRhjPO0mdQXsARljXb5vjKrpsD ymLL9nRAXgzrjch768KwYdu4mjDOVr jEUnGMyjGSD0Y49s w6B6CIWwHSLoLVE3gWT9dZ2ofBuhcf ymnGHhtIukykHzzEibQEkvLUjtE410 IHRvcDsnPlBheWVy OjwvdGQ+VA99qh47J3QfEbyqXek6MY ZsCMJ4tXY5sS6uGCSyOXnpn1A2mMP9 B8WmcjGvog0ha2md YXBz (more content not included)... [facility] Consent for Treatmenton Consent for Treatment [id number]:127 [facility] Outside Records Officeon Outside Records Office [id number]:127 Normal [facility] Physician Orderon 04-14-2022 Physician Order [id number]:127 [facility] Coding Summary.on 11-12-2021 Coding Summary. CD:[id number] Gh0bWw+PGh lYWQ+XD1KJBVzN87xdYSgeK3TF0iHR Y5OLGIXGCKUDC5NSX6gsHH8AZqwD1W ybiAv NbabfEPdCL68MAp2RYV9mTscTLwieW 1qqVHaB2k7PmBhZZ14oM71QIviQRBx DlT7UrGkupokhHBg A5beEoIoeJRfHah+PHRhYmxlIHdpZH PjXLddLXJhHjVizRodCV3qTt7vBFMu LWNvbGxhcHNlOiBj t7eaRPHeDTvhXT1mdGciL1ZrxMG7HW Tev3s6Du31yRX+AFDpJOF6aMbhUMjk u764RgFgs4dkORK9 fLGnERkqVRH3I16in0S0YRMmIGEwLF X2dUL1sS6ncIunibydP6QwbMQeJiB4 GFU9cHRhdN2zvNyv yclleM7aSsp+G28FVJ6DTBRJHK4RHj j8F9DtYwdfmYP+MQ15LWQqDO77sEFl tMZdo4yvtLh9LiMf CUZqYYC1eMcfBUiyo9RzATSrS38rxH Zal8E7ZQBzvCvroIMsKxQwkPN8kH6d LMssymmox7fbdmyi Ljuky2vxba39tD42R47cVRagRDDmQJ T2VPOzGNHhfVvxwi6sxF8kVp5+IDxj n6hft2lyxKk1FwTc CLQlivSgzItpKQS3d9CpBb22W3VepU ibz3IrYrr3el77zDSnk7K8dNK2LUsw EETrdN1kYGlqDnZ4 POTzNoKngJ64vHQvPOnfDt9lgJiziR ryOG3bARQxturuBDWiaB5bKWSxcGWc aAarUY2iZKMazpom y275LhLvTUJ2PEDmwGDgA5NshE6vXa XxRRJxZMWxD1WdpECxIAjbW424CTdg AsN5VTGvmqMbI2Jl QLJekPsfPiK5z2E1Zq3Ik3TtuxqjUT I5JShtXZJpZlS6ExMhXlR0G7NrXte8 RVRmiVvpNQ5iO9Al YNZxehgrbhiemBW0CSDjMHQujF83dZ LsSOkxYt1wk6P1l139GOIaKZEzqP55 Li3joFpjJQIxfUVZ nG5kdtotg0yhklzfVrYbQNDaNCa0KZ e2ZJDqtDvmDyIbJEV1ZcI2OBL2tJTm aY8vjWmmrvezfR6k Oyc+J81dtA4xNVK0QPK3armvAGFuoq XvJP30VQ53A2QjBuiloBYdrBD+PGRp jpGrfXgyIY9nNsUa v6nng3WdSQuvF4IlYGOlKNsvKkf4ZY UfLAT7dDH0bQ7pXNBrUJxsp5C8hOH2 T3OsdjFazh7qe6ce UAAwCFzmD05dqUFen4A1RTJybWT5CR EieOzeGnDhaG22Oqu+KNPmjFsdy1Li Vsixa4ijo0kwgWf3 DbInYHNskiCmgXuuOZQ7s7LyEn45X6 6zJBdiJPWnGSQsDWIcWHPdbOqiay4n uJ8cUl7+PGNvbCB3 jKI4mF0iYFRoZbM8RUscA839ElXxjY BkBrlts4ffy8oarDf6HqPpWUFemxTi gQhxLPZ3y5WoXr91 V39fEJuvUXKeGVDbYPNdJXDuxBucvd 5rpZ0mIj2+OL4di3ttux14vD06wXR+ OFRvIVD4xSveYGvw JCSroG1rCXceAaI7PADwGvRvxB36zJ JzZAuoLx7oeYtwtOynXU3jOLNjqkic w091ZoEad0acVZMj pEIsVVehKQR4D78vy2V8DTYdIIBvEV N0jDS8nF0ozKdckrckoHXofJffjyZv tIrlGYpaMEpfT154 RJAmfQmbQcFkjNsjoaSmXhXoYLs9M5 VqLie3RFFgvWfgRJ8lbBCwLQasSu1a dGrkiMrdNJ4mHEXx tszlq335PvNie4fkFJMsyEBwSFegWW G7E19jg7R7IQFpECZlIAF5gJZ7kG8v bGlnbjogbGVmdDsg glXiqIbaWCtyISjzW975VEWhhUqmNw IfrxIzYOFdkNH9AZ44BB27wVTyd7O9 cWO7D9AqFXBpdwpy vgrilEW3BJMdYHVwnX55Ku0ymLfmVo 9mGIAhNWW1PNKctWWaN3DgeK9eHuKd QRGnUIYzQ8XvhLDk OTxjX931VUevYlX3HTPlznAuA7ZuCN MhtClhLdI8q1Z6Px2FJ6Z8FA55QB31 iFOvh8Z8aTI3S5Bn XWSftgzejyaacWI0USXsYSVknT13Lj 3tmMsjAv0kRLCoGIX7UUFvwYDmY0Zw nN6vEgAzFJVxBKWv X6WbcUSqDSkjV421GYrzRuQ9SIPkez QaZ6JrJJVemSjuFhL1o2U0Vu1KTFw6 HS03LM38eCSmh0G6 nUC9V4XqPBXjqtsnacykkLS0DEVzNA XqeI09Sq1jqShvQs9oKGUcIGY0ERAb mULkU6TvnT5tGuPj YELrCXTmL0ZxuYPsDIwxL603RYncKh F3MPAginNfC5NfWONkwHdlZpP1z1O4 Kr5CTRReTG63JTX4 xJX9UO87FF79U7NfMzxnaKEllBJ+PH RhYmxlIHdpZHRoPScxMDAlJyBzdHls OL9jTy8jZVXmGEHh pVlvdHHnHdXiz9xwTMGtCZkrHB0jjJ jwW0HopIR1DDAue3v8Cx07O40uK3No dXA+TTVekMA6mUX6 jD1zXzVtXtT2SCcbK006CnPdbZExTh riw7wsi9npmAf9EmT5LQKtwyVhlYmm NFU8h0NtEx88E74c PZmbZXZwTHLbCSOvKZEnfGlwbi3fkX 9wIi8+JXYjgMF3iLU0dK2fCiHsXzZ9 MSsgB901SvFmhATk Riwgt8lwm5qtcKg7WbAoEEPcjwQjhR ewPFK1o5PfZb31B2KxzFdmy7LwZxf8 ft46bTXhv9N3uZE4 C9ErJBTgbcvgrKLwlGmuMK0yDHIdli rxEZRdwM2nXHVuZ0u0XiSqHkG9ZObm T4XbzwR8IXOiaIAq FObiXDG9A36wd8O2QURzMWZhQQA6qU Y9vS8byHyxxolazLZjcCgmslZjvLry VNeqEUboZ312LXGm gTtoKAFvsJ7vPNRtaIMfbLjfCB5dYJ LliugeEpEQNEcQQMVNUN4DNZPPDzVD IQ52UD79uEAbr8N6 yUE4G9PkOTMqnvibkrlbzVB2HRUaJG VyqQ06xZTqOWrbDp7tl2E2c453OLJd LLPxwM23Pn9egPcs VUEgxRSKsF7ldnaun1psevrmEfFnFY JnFPj9VSa1EQFehEilDeDwPJF6CxY7 KDY0aQKpkD2zhPak mbvacO6pQtt+TLAaNzRrNSf2WRmvhQ Q+HMMpCOF1fLtqLQygEFWrmK6bFRYt Q4j7XjLxJvR4OPdg O6VaWIUhhuunNk30fY0xYpWpNyX2OH dtI2YvijZ1QQAxrIYrUJtnNAQ6S32f h3S5VKYbPTUiELL1 iZN7fI6mvAuicfrbsDBdfEpfzqDzmM phUQbvKRkfA663IEXnzZifVjZsYObd BWMrAW49IU35xTGp a8J5xUP1N1NyINKctlctfdwxoLQ9MS VwGFErqW45gYXvGGklXy5kp0I7n046 PBGuIZSzoM27Yu5d iNtlLAXsuNXOkI0srseyh3aicujpOx NpHHVoVEn0WVb3BNRaqJvuKxDeOUO2 BgN3REI5hIZvbE5q pQzuobzvhJ0pRbn+LiRwOOtcTO67MG 15rRWte8O5zPQ6Y9EqACBeofrtfvxf wFJ7DVVxWADaaY21 xCWxJXhdXm1he1V0a131QZTaOOZgpI 22Xy1wgUtbJGAoaGHOwK1akcruk2xp cjogIzAwMDAwMDt0 UJq7WEKofLlsRyUhVFG9WzL9KLM6cR JriM6agFfclazjzO0gWip+ZW6nglar ddA1AB20RV91W3Hi PjwvdGFibGU+PHRhYmxlIHdpZHRoPS anHXPwYuHpdTxtRN6sJr9dEGQbGRZh rLcmbAJuSiEaq3bg VHGwOCqsLB4khJydY7PtePK2VNDvw8 e1Oj01H97kL9VwqAH+RCMlqGY0zJN4 cI9jPaExCuC2CYyi K298ZjVfnDFkPoeof3iba2ovtVe5Ol IpIAHsivPlbVwxYVH5x3BbCi86F39y IHdpZHRoPSIyMCUi QHWriHnqzc7kfH9yMf9+THQerHN7sS Z7dU9vOlPiVuD4VEdwV191QrQxyAZc ZsrqB51hX5SyjYZ+ MEZbKbi6QNFshIykBR8mjFQfQOrtVk 9dZCW5PzEnSpUlQLfrT6XuLXNrzvxd yqsqzUD1VUYxXEBt hV50Gp2pfWajUc1sYBMpOAV1DJWliF ObP9WriD4vIzAqIEAvKCBsL1CmnPXb LVzzE411MUtqDwZ7 KDGcihFjM2CjAVQrgLzoYmY6l6W7Jn 9GeJsmtWQxSR9xIbNlODe6H5YbWvn5 BEFriCfeRX6leDVu WKcxTg4uzQyubOatNX9xPSUgbtaxh9 83QxOxa4tsVORtpYRqNVpkIAU7N19x v6U7OHCxMXZkKWB4 yMT6hU9ldArsaajhhSXjvWmjdaFlmR teMDtrLCmdL898AMGqzAulEzMUYmu2 M5UlUoy3BQSktHgv CF0nhKYvFHeeKq2udKlqiQjxWN0gAT Aymcclp300KmFfx0ncWDPusRAiJBch YRM8Q01ya1X3UDAu GLRkGRG1jOY0gO8vxMlfgsiqgCWetJ spffTbqGgvSDhfFRwqX713EONyuYkk Vt3MWqm5E2MlCzb6 HNBgsVdjCH3yzNRcVBnhUv1wvIhvcL zdPZ7uXOGwozotg545ZfBnq0zmTUBg nRYwLFslMIO6V93k q1E8JKPiVTOdQRE1bES0sN3dvKefcd yzdVPkwShjafMlcSuwIBseWMtzR956 IHRvcDsnPlBheWVy OjwvdGQ+AP25el09H5HpFoyxUhn0XF XaQRH5fVX3lQ5kXXFoNHiut1N0qYX5 W3IxusIwfo9mg4wn YXBz (more content not included)... [facility] Consent for Treatmenton 10-19 Consent for Treatment [id number]#1.00CD:127 [facility] Discharge Instructionson Discharge Instructions [id number]#[id number]:127 [facility] ED Clinical Summaryon 2021 ED Clinical Summary [place] [id number] ED Clinical Summary Person Information Name: MARILEE ARRIAGA Felipa/[facility] Age: 45 Years : 1975 Sex: Female Language: Korean PCP: FRANCOISE GAY Marital Status: Single Visit [...] 16:00:59 11/05/2021 16:00:59 11/05/2021 16:00:59 AD[address]ESS: [address] [facility] [id number] PHYS DOC NOTES: MEDICAL INFORMATION: Prescriptions Given: New Medications [id number], [address], [place] [id number], [phone] acetaminophen-hydrocodone ([place] 325 mg-5 mg oral tablet) 1 Tablets [...] up: With: Address: When: [address] [place] [address] Business (1) In 3 days 11/08/2021 Comments: Return to the emergency room if your pain gets worse or any new symptoms. With: Address: When: FRANCOISE BARNES [address] [place] [address] Business (1) In 3 days DIAGNOSIS: 1:Avulsion fracture of left ankle; 2:Sprain of left foot [facility] ED Note-Physicianon 11-06-19 ED Note-Physician Basic [...] and crutches was given. Patient was given [place] in the emergency room. Will discharge patient home with [place] and follow-up with Ortho. The OARRS report [...] Foot 3+ Views Left Medications Administered Given [place] 5/325 Tab, 1 tab(s), Oral Disposition Plan Patient Discharge Condition Stable Discharge Disposition Discharged home Discharge Prescription List Prescriptions [place] 325 mg-5 mg oral tablet, 1 tab(s), Oral, q6hr, PRN Follow-up With When Contact Information Em Mir In 3 days 11/08/2021 EDT [address] [place] [address]- Business (1) Additional Instructions: Return to the emergency room if your pain gets worse or any new symptoms. FRANCOISE BARNES In 3 days [address] [place] [address]- Business (1) Additional Instructions: Patient Education Crutch [...] Tab, 100 mg= 1 tab(s), Oral, Daily [place] 325 mg-5 mg oral tablet, 1 tab(s), Oral, q6hr, PRN ondansetron 4 mg/5 mL oral solution Prozac 20 mg Cap, 20 mg= 1 cap(s), Oral, Daily Prozac 40 mg Cap, 40 mg= 1 cap(s), Oral, Daily Qvar with Dose Counter 80 mcg/inh inhalation aerosol ranitidine 150 mg Tab, 150 mg= 1 tab(s), Oral, BID SEROquel 100 (more content not included)... [facility] Comment on above: Result Comment: Elec [...] 08/04/2001 Document Revised: 07/20/2018 Document Reviewed: 01/27/2017 [employer] Patient Education ? 2020 [employer] How to Use a Stirrup Ankle [...] the bra (more content not included)... [facility] ED Patient Summaryon 022 ED Patient Summary [facility] [address] [place], [place] [address] Patient Discharge Instructions Person Information Name: MARILEE ARRIAGA Age: 45 Years Arrival Date: 11/05/2021 13:19:01 Discharge Diagnosis: 1:Avulsion fracture of left ankle; 2:Sprain of left foot Primary Care Physician: FRANCOISE GAY Provider Information Primary Provider: Tyler Petersen M.D. Advanced Laundry Supervisor:None The exam and treatment you received in the Emergency Department were for an urgent problem and are not intended as complete care. It is important that you follow up with a doctor, nurse practitioner, or physician?s medical office assistant instructor for ongoing care. If your symptoms become [...] Instructions: With: Address: When: [address] [place] [address] Business (1) In 3 days 11/08/2021 Comments: Return to the emergency room if your pain gets worse or any new symptoms. With: Address: When: FRANCOISE BARNES [address] [place] [address] Business (1) In 3 days In the [...] opioids can be used to help relieve htsppphz-mn-ikqjjy pain and are often prescribed following a [...] Administration (www.fd (more content not included)... [facility] XR Ankle 3+ Views Lefton XR [...] Barnett MD Transcribed by: KAIDEN Technologist: [facility] XR Foot 3+ Views Lefton 10-19 XR Foot 3+ Views Left Exam Date/Time: 11/05/2021 13:50 EDT Reason for Exam: Fall Report Refer to concurrent left ankle radiograph dictation. FINAL REPORT Dictated: 11/05/2021 2:04 pm Rony Barnett MD Signed (Electronic Signature): 11/05/2021 2:04 pm Signed by: Rony Barnett MD Transcribed by: KAIDEN Technologist: [facility] MRI BRAIN W WO CONTRASTon MRI [...] by:SUMANTH Garciaigned by:Margo Mendez MD02/13/18inal result [facility] CNDSon 02-16-2017 CN HNO ID: [id number] thor: [place] Anthony (Romain) AdenugaService: General SurgeryAuthor Type: ResidentType: Discharge SummariesFiled: 02/16/2017 11:44 AMNote Text:[facility] [place] [phone] or [phone]) [facility] O N F I D E N T I A L I N F O R M A T I O N -----STANDARD [facility] DOCUMENTDISCHARGE SUMMARYPatient Name: Marilee Buckner Date: 02/13/2017Discharge Date: 02/16/2017Attending Physician: Eleni Pfeiffer Diagnosis: Morbid obesitySecondary Diagnoses:Patient Active Hospital Problem List: Obesity, Class III, BMI >= 40 (morbid obesity) ([facility]) E66.01 (02/12/2017) Morbid obesity ([facility]) (02/13/2017)Operations During Hospitalization:Laparoscopic Crystal en Y gastric [...] as needed.Future Appointments:Future AppointmentsDate Time Provider Department [place]02/23/2017 2:30 PM [id number] LUNDBERGI GENS A/M 03/09/2017 11:00 AM [id number], KASEY (PHD) GSPSMN GENS A/M 03/16/2017 12:00 PM [id number] 2 GENBMI GENS A/M D04/06/2017 1:45 PM [id number] LUNDBERG GENBMI GENS A/M D05/16/2017 10:30 AM [id number] TAM GENBMI GENS A/M D05/16/2017 10:30 AM [id number] TAM GENBMI GENS A/M BLDPatient will follow-up in clinic with Renée Lopez MD as scheduledabove, or sooner if the need arises.Electronically SIGNED by Licensed Independent Practitioner: [place] Jean MD [facility] Glucose POCT (East, West, [place] A Use Only)on 02-16-2017 Glucose mass conc 105 mg/dL High 65-100 [facility] Comment on above: Performed By: #### G LUP ####[facility] [place], [place] [phone] NURSING PROGon 02-16-2017 NURSING PROG HNO ID: [id number] thor: Lilibeth Ortega (Rn) Racquel Santosice: (none)Author Type: Registered NurseType: Nursing Progress NoteFiled: 02/16/2017 11:37 AMNote Text: Nursing Progress NotePatient Name: Marilee PruittAndrey: [id number] Location: [place] [address]/[id number] Da nena Note: Patient has been discharged [...] note was completed by: Lilibeth Santos RN [facility] NURSING PROG HNO ID: [id number] thor: Lilibeth Ortega (Rn) SUNSHINE Santoservice: (none)Author Type: Registered NurseType: Nursing Progress NoteFiled: 02/16/2017 10:27 AMNote Text: Nursing Progress NotePatient Name: Marilee Tinsley SonalN: [id number] Location: [place] [address]/[id number]-[id number] Da nena Note: Doing better this am, able to take all of pills and drink theKphos, took a shower, so taking in more po, pain controlled, no emesis, nomore bloody stool, ambulating VSS, on RA, expecting to go home today,continue to monitor.This note was completed by: Lilibeth Santos RN [facility] PROGRESSon 02-16-2017 PROGRESS HNO ID: [id number] thor: Hiram (Romain) Monikaervice: General SurgeryAuthor Type: ResidentType: Progress NotesFiled: 02/16/2017 8:02 AMNote Text:General Surgery Progress NoteName: Marilee OlivierJustinN: [id number]: 02/16/2017SUBJECTIVESubjective: No acute events overnight. Last melenotic [...] lb) LMP 01/27/2017 SpO2 94% BMI 62.73 kg/i2Qngbuw/Output Summary (Last 24 hours) at 02/16/17 0759Last [...] with morbid obesity now POD 3 s/p kqjtahiadwiyJpxp-do-L gastric bypass. Bloody bowel movements resolved with stable H/H.- Phase 2 bariatric diet- Heplock IV- Wean O2- PO pain meds, hold toradol- Will discuss resuming DVT prophylaxis- Encourage incentive spirometry and ambulation- Anticipate discharge today on home Richelle Gordon MDGenekettering memorial [facility] Surgery ResidentPager [phone] [facility] Basic Metabolic Panlon 02-15 Anion gap 10 mmol/L Normal 9-18 [facility] Comment on above: Performed By: #### B VIANCA MG1, PHOS ####[facility] [place], [place] [phone] Calcium 8.1 mg/dL Low 8.5-10.5 [facility] Comment on above: Performed By: #### B VIANCA MG1, PHOS ####[facility] [place], [place] [phone] Chloride 104 mmol/L Normal 98-110 [facility] Comment on above: Performed By: #### B MP MG1, PHOS ####[place] [address] CO2 27 mmol/L Normal 23-32 [facility] Comment on above: Performed By: #### B VIANCA MG1, PHOS ####[place] [phone] Creatinine 0.78 mg/dL Normal 0.70-1.40 [facility] Comment on above: Performed By: #### B VIANCA MG1, PHOS ####[place] [address] eGFR (non-black) mL/min/{1.73_m2} Normal >60 [facility] Comment on above: Performed By: #### B VIANCA MG1, PHOS ####[place] [address] Glucose mass conc 119 mg/dL High 65-100 [facility] Comment on above: Performed By: #### B VIANCA MG1, PHOS ####[place] [address] Potassium molar conc 4.2 mmol/L Normal 3.5-5.0 [facility] Comment on above: Performed By: #### B VIANCA MG1, PHOS ####[place] [address] Sodium 141 mmol/L Normal 132-148 [facility] Comment on above: Performed By: #### B VIANCA MG1, PHOS ####[place] [id number] Urea nitrogen 15 mg/dL Normal 8-25 [facility] Comment on above: Performed By: #### B VIANCA MG1, PHOS ####[place] [address] CBCon 02-15-2017 Erythrocyte distribution width Auto Ratio (RBC) 12.9 % Normal 11.5-15.0 [facility] Comment on above: Performed By: #### C BC ####[place] [phone] Erythrocytes (RBC) 3.63 10*6/uL Low 3.90-5.20 [facility] Comment on above: Performed By: #### C BC ####[place] [phone] Hematocrit (HCT) 33.8 % Low 36.0-46.0 [facility] Comment on above: Performed By: #### C BC ####[place] [phone] Hemoglobin mass conc (Bld) 10.9 g/dL Low 11.5-15.5 [facility] Comment on above: Performed By: #### C BC ####[place] [phone] MCH 30.0 pG Normal 26.0-34.0 [facility] Comment on above: Performed By: #### C BC ####[place] [phone] MCHC mass conc (RBC) 32.2 g/dL Normal 30.5-36.0 [facility] Comment on above: Performed By: #### C BC ####[place] [phone] MCV 93.1 fL Normal 80.0-100.0 [facility] Comment on above: Performed By: #### C BC ####[place] [phone] Platelet mean volume (PMV) 8.5 fL Low 9.0-12.7 [facility] Comment on above: Performed By: #### C BC ####[place] [phone] Platelets 368 10*3/uL Normal 150-400 [facility] Comment on above: Performed By: #### C BC ####[place] [phone] WBC (Leukocytes) 11.75 10*3/uL High 3.70-11.00 [facility] Comment on above: Performed By: #### C BC ####[place] [phone] CBC and Differentialon 02-15 Abs Baso 0.02 k/uL Normal 0.00-0.10 [facility] Comment on above: Performed By: #### C BCDIF ####[place] [phone] Abs [place] 0.97 k/uL High 0.00-0.86 [facility] Comment on above: Performed By: #### C BCDIF ####[address] Abs Neut 8.11 k/uL High 1.45-7.50 [facility] Comment on above: Performed By: #### C BCDIF ####[place] [phone] Basophils/100 WBC Auto (Bld) 0.1 % Normal [facility] Comment on above: Performed By: #### C BCDIF ####[address] DTYPE Auto Diff Normal [facility] Comment on above: Performed By: #### C BCDIF ####[place] [phone] Eosinophils 0.35 10*3/uL Normal 0.00-0.45 [facility] Comment on above: Performed By: #### C BCDIF ####[place] [phone] Eosinophils/100 leukocytes 2.5 % Normal [facility] Comment on above: Performed By: #### C BCDIF ####[address] Erythrocyte distribution width Auto Ratio (RBC) 13.1 % Normal 11.5-15.0 [facility] Comment on above: Performed By: #### C BCDIF ####[place] [phone] Erythrocytes (RBC) 3.51 10*6/uL Low 3.90-5.20 [facility] Comment on above: Performed By: #### C BCDIF ####[address] Hematocrit (HCT) 32.6 % Low 36.0-46.0 [facility] Comment on above: Performed By: #### C BCDIF ####[place] [phone] Hemoglobin mass conc (Bld) 10.7 g/dL Low 11.5-15.5 [facility] Comment on above: Performed By: #### C BCDIF ####[place] [phone] Lymphocytes 4.35 10*3/uL High 1.00-4.00 [facility] Comment on above: Performed By: #### C BCDIF ####[place] [phone] Lymphocytes/100 leukocytes 31.5 % Normal [facility] Comment on above: Performed By: #### C BCDIF ####[place] [phone] MCH 30.5 pG Normal 26.0-34.0 [facility] Comment on above: Performed By: #### C BCDIF ####[place] [phone] MCHC mass conc (RBC) 32.8 g/dL Normal 30.5-36.0 [facility] Comment on above: Performed By: #### C BCDIF ####[place] [phone] MCV 92.9 fL Normal 80.0-100.0 [facility] Comment on above: Performed By: #### C BCDIF ####[place] [phone] Monocytes/100 leukocytes 7.0 % Normal [facility] Comment on above: Performed By: #### C BCDIF ####[place] [phone] Neutrophils/100 WBC Auto (Bld) 58.9 % Normal [facility] Comment on above: Performed By: #### C BCDIF ####[place] [phone] Platelet mean volume (PMV) 8.3 fL Low 9.0-12.7 [facility] Comment on above: Performed By: #### C BCDIF ####[place] [phone] Platelets 391 10*3/uL Normal 150-400 [facility] Comment on above: Performed By: #### C BCDIF ####[place] [phone] WBC (Leukocytes) 13.80 10*3/uL High 3.70-11.00 [facility] Comment on above: Performed By: #### C BCDIF ####[place] [phone] Glucose POCT ([facility], [place], [place] A Use Only)on 02-15-2017 Glucose mass conc 111 mg/dL High 65-[address] [place] [address] Comment on above: Performed By: #### G LUPOC ####[place] [phone] Glucose mass conc 121 mg/dL High 65-100 [facility] Comment on above: Performed By: #### G LUPOC ####[place] [phone] Glucose mass conc 99 mg/dL Normal 65-[address] [place] [address] Comment on above: Performed By: #### G LUPOC ####[place] [phone] Glucose mass conc 116 mg/dL High 65-100 [facility] Comment on above: Performed By: #### G LUPOC ####[place] [phone] Magnesiumon 02-15-2017 Magnesium 2.0 mg/dL Normal 1.7-2.6 [facility] Comment on above: Performed By: #### B REGGIE COLEY PHOS ####[facility] [place], [place] [phone] NURSING PROGon 02-15-2017 NURSING PROG HNO ID: [id number] thor: Lilibeth Ortega (Rn) Doroteo Santos: (none)Author Type: Registered NurseType: Nursing Progress NoteFiled: 02/15/2017 4:15 PMNote Text: Nursing Progress NotePatient Name: Marilee OlivierJustinN: [id number] Location: [facility][id number]-[id number]-03 Da nena Note: Dr called to inform that patient had another bloody stool itwas dark red, no change in vital signs HR has remained in 70's, on RA, noincrease in pain, patient is only taking sips of clears otherwiseunchanged , stable, lab orders again @ 1800.This note was completed by: Lilibeth Santos RN [facility] NURSING PROG HNO ID: [id number] thor: Lilibeth Ortega (Rn) Doroteo Santos: (none)Author Type: Registered NurseType: Nursing Progress NoteFiled: 02/15/2017 10:29 AMNote Text: Nursing Progress NotePatient Name: Marilee OlivierJeraldRN: [id number] Location: [place] [address]/[id number] Da nena Note:Patient states she's feeling ok, just brought up some 'phlegm',( clearbubbles) no emesis, able to keep down 'bites' or sips of broth and tea,given IV phenergan, denies pain, encouraged to continue to ambulate,stable, call light in reach.This note was completed by: Lilibeth Santos RN [facility] NURSING PROG HNO ID: [id number] thor: Liliana (Rn) Rolo, RNService: (none)Author Type: Registered NurseType: Nursing Progress NoteFiled: 02/15/2017 5:53 AMNote Text: Nursing Progress NotePatient Name: Marilee OlivierirMRN: [id number] Location: [place] [address]/[id number] Surgery paged [id number] Marilee Olivierir: patient had dark bloody BM. pleaseadvise. Rafita, Liliana [id number] No new ordersThis note was completed by: Liliana Seth RN [facility] PROGRESSon 02-15-2017 PROGRESS HNO ID: [id number] thor: Mark Anthony (Res) AdenugaService: General SurgeryAuthor Type: ResidentType: Progress NotesFiled: 02/15/2017 8:25 AMNote Text:General SurgeryProgress notesAdmitted: 02/13/2017OR date: 02/13/2017 Procedure(s) and Anesthesia Type: * LAPAROSCOPIC GASTRIC RESTRICTIVE SURG W/ BYPASS AND CRYSTAL-EN-Y = 42 (morbid obesity) ([facility]) E66.01 (02/12/2017) Morbid obesity ([facility]) (02/13/2017)Hold Lovenox/Toradol, recheck labs, decrease IVFPain control: [...] RNF, potential discharge tomorrowPaul MD Ted (PGY 2)[id number] 6PM weekdays and all through weekends: [id number] SNausea and emesis yesterday, improving and PO intake improvingSlept okayDark bloody BMs this AMAmbulating well OTemp (24hrs), Av.7 ?C (98 ?F), Min:36.4 ?C (97.6 ?F), Max:36.9 ?C(98.4 ?F)BP 147/78 Pulse 80 Temp 36.4 ?C (97.6 ?F) (Oral) Resp 16 Ht 154.9cm (5' 1 ) Wt (!) 150.6 kg (332 lb) LMP 01/27/2017 SpO2 99% BMI62.73 kg/s7SGKAHKE: Mild distress as actively nauseated and sitting up with vomitbag, alert and oriented x 3HEENT: NC/AT, EOM's intactRESPIRATORY: Respiratory effort unlaboredCHEST-CVS: HDSABDOMEN: Soft, obese and non distended, non tender, laparoscopic incisionsCDI with glueNEURO: Grossly non-focal02/14 0700 - 02/15 0659In: 3622 [PO:300; IV:3322]Out: 2180 [Urine:1850] Normal [facility] PROGRESS HNO ID: [id number] thor: Renée LopezService: General SurgeryAuthor Type: PhysicianType: [...] PO intake improvesStacy Gale Lopez MD Normal [facility] Phosphoruson 02-15-2017 Phosphate 1.9 mg/dL Low 2.5-4.5 [facility] Comment on above: Performed By: #### B MP, MG1, PHOS ####[facility] [place], [place] [phone] Vital Signs Date Time Vital Sign Value Performing Clinician Faci lity 09-19-2023 09:41-0500 Body height 157.48 cm [facility] 09-19-2023 09:41-0500 Body weight 104.32 kg [facility] Encounters Encounter Date Encounter Type Care Provider Facility Start: 11-21-2023 End: 11-21-2023 ambulatory FRANCOISE BARNES Not Available Start: 10-31-2023 End: 11-01-2023 ambulatory FRANCOISE BARNES Not Available Start: 10-23-2023 End: 10-24-2023 ambulatory Najma Richardson MD Facility:[facility] Start: 10-09-2023 ambulatory Jamey Minor acility:[facility] Start: 09-25-2023 Refill Francoise MARTINEZ Work Phone: [facility] Comment on above: Chronic pain of both knees Start: 09-19-2023 End: 09-19-2023 ambulatory Simona Szymanski Facility:[facility] Start: 09-19-2023 End: 09-19-2023 ambulatory NON STAFF [facility] Work Phone: Start: 09-19-2023 End: 09-19-2023 Patient encounter procedure [facility] [place] Work Phone: Start: 08-05-2023 End: 08-05-2023 ambulatory FRANCOISE BARNES Not Available Start: 07-26-2023 End: 07-26-2023 ambulatory FRANCOISE BARNES Not Available Start: 07-17-2023 Registered [facility] Start: 06-05-2023 End: 06-06-2023 ambulatory Najma Kilpatrickitis Facility:[facility] Start: 05-01-2023 End: 05-02-2023 ambulatory Andabimaelus Claudioytautas Finesseitis Facility:[facility] Start: 04-03-2023 End: 04-04-2023 ambulatory Andabimaelus Claudioytmariolaas Finesseitis Facility:[facility] Start: 02-27-2023 End: 02-28-2023 ambulatory Andzaira Kilpatrickitis Facility:[facility] Start: 02-13-2023 End: 02-14-2023 ambulatory Najma Richardson MD Facility:[facility] Start: 11-07-2022 End: 11-08-[address] FRANCOISE BARNES Facility: Start: 06-27-2022 End: 06-27-2022 ambulatory SUNSHINE Keller Facility: Start: 04-27-2022 End: 10-26-2022 ambulatory FRANCOISE BARNES Facility:[facility] Start: 04-22-[address] FRANCOISE BARNES Facil ity:H1 Start: 11-05-2021 End: 11-05-2021 Emergency department patient visit Tyler Petersen Facility:[facility] Start: 09-18-2018 Patient encounter procedure Ida Weber Facility:[id number] Start: 05-08-2018 Patient encounter procedure Ida Weber Facility:[id number] Start: 02-13-2018 End: 02-16-2018 Ambulatory FRANCOISE BARNES [facility] Start: 12-19-2017 Patient encounter procedure Ida Weber [...] 02-18-2024 Influenza vaccination Influenza Vacc ine (#1) [facility] Comment on above: Postponed from 04/21 (Patient Refused) Start: 02-11-2024 Screening for malign ant neoplasm of breast Mammogram [facility] Start: 10-25-2023 End: 10-25-2023 Patient encounter procedure 10/25/2023 1:00 PM EST Office Visit [facility] [address] [place] [phone] Francoise Barnes PA [address] [place] [address] [facility] Start: 12-14-2007 Screening for malign ant neoplasm of cervix [facility] Start: 1998 Screening for malign ant neoplasm of cervix Pap Smear [facility] Start: 1977 Screening for malign ant neoplasm of colon [facility] Immunizations Immunization Date Immunization Notes Care Provider Fa [facility] 05-30-2021 influenza, injectabl e, quadrivalent, preservative free Francoise MARTINEZ Work Phone: [facility] 05-30-2021 influenza virus vacc ine, unspecified formulation Francoise MARTINEZ Work Phone: [facility] 06-12-2020 influenza, injectabl e, quadrivalent, preservative free Francoise MARTINEZ Work Phone: [facility] 12-16-2018 tetanus toxoid, redu brina diphtheria toxoid, and acellular pertussis vaccine, adsorbed Francoise MARTINEZ Work Phone: [facility] Payers Date Payer Category Payer Self-pay [id number] 2022 Medicaid [id number] 2022 Medicaid [place] [id number] 2022-Present [address] [place] [address] [id number] 2022 Unknown 2018 Unknown [id number] 1977 Unknown [id number] 2.16.840.1.439296.3.579.2.356 1977 Unknown [id number] 2.16.840.1.540063.3.579.2.356 1977 Unknown [id number] 2.16.840.1.840278.3.579.2.356 1977 Unknown [id number] 2.16.840.1.307579.3.579.2.727 1977 Unknown [id number] 2.16840.1.872881.3.579.2.727 1977 Unknown [id number] 2.16.840.1.963499.3.579.2.593 1977 Unknown [id number] 2.16.840.1.554664.3.579.2.593 1977 Unknown [id number] 2.16.840.1.843002.3.579.2.593 1977 Unknown [id number] 2.16840.1.994519.3.579.2.196 1977 Unknown [id number] 2.16.840.1.278734.3.579.2.196 1977 Unknown [id number] 2.16.840.1.457704.3.579.2.196 1977 Unknown [id number] 2.16.840.1.457638.3.579.2.196 1977 Unknown [id number] 2.16.840.1.257516.3.579.2.196 1977 Unknown [id number] 2.16840.1.394465.3.579.2.196 1977 Unknown [id number] 2.16.840.1.418392.3.579.2.1259 1977 Unknown [id number] 2.16.840.1.839621.3.579.2.1259 1977 Unknown [id number] 2.16.840.1.804641.3.579.2.9 1977 Unknown [id number] 2.16.840.1.840783.3.579.2.1259 1959 Unknown [id number] Unknown [id number] 2.16.840.1.398261.3.579.2.531 Unknown [id number] 2.16.840.1.896354.3.579.2.531 Social History Date Type Detail Facility Tobacco smoking stat [facility] Unknown if ever smoked [facility] Work Phone: Start: 1975 Sex Assigned At Female F [facility] Start: 09-18-2018 End: 01-23-2023 Tobacco smoking status MAIS Never smoked tobacco (finding) [facility] Start: 01-23-2023 Tobacco use and exposure Smokeless [...] encounter Note 09-25-2023 Telephone Encounter - MICHELLE Coa - 09/25/2023 10:06 AM EST Note Date [...] into patient's pharmacy. documented in this encounter [facility] Clinical Note 06-27-2022 Note Date & Type [...] authenticated by: EM LÓPEZ Date: 2022-06-27 15:38 [facility] Progress note 06-28-2021 Note Date & Type Note Facility 06-28-2021 Note HNO ID: [id number] Author: Em Fernandez, PhD Service: ? Author Type: Psychologist Type: Progress Notes Filed: 06/28/2021 2:45 PM Note Text: Received mental health records from [facility]. Note from 05/06/21 revealed pt has Schizoaffective [...] medical records for scanning. Em Fernandez, psychologist [facility] Evaluation note Note Date & Type Note Facility Evaluation note No assessment information availa [facility] Work Phone: Evaluation note Note Date & [...] section and content) DATE CREATED AUTHOR 02/14/2018 [facility] DATE CREATED AUTHOR AUTHOR'S ORGANIZ ATION 02/16/2018 [facility] DATE CREATED AUTHOR AUTHOR'S ORGANIZ ATION 10/09/2018 [facility] DATE CREATED AUTHOR AUTHOR'S ORGANIZ ATION 10/11/2021 [facility] DATE CREATED AUTHOR AUTHOR'S ORGANIZ ATION 10/28/2022 [facility] DATE CREATED AUTHOR AUTHOR'S ORGANIZ ATION 11/13/2022 [facility] DATE CREATED AUTHOR AUTHOR'S ORGANIZ ATION 10/27/2023 [facility] DATE CREATED AUTHOR AUTHOR'S ORGANIZ ATION 11/22/2023 [facility] EP[facility] DATE CREATED AUTHOR AUTHOR'S ORGANIZ ATION 12/02/2023 [facility] Goals (unrecognized section and content) [...] September 19, 2023 End: September 19, 2023 Cardiovascular Disease Specialist Relationship Specialty Start Date End Date Shalini Coffey MD [address] [facility] [address] [place] [address] PCP - General Family Medicine 08/05/23 Reason [...] BE BASED ON THE PRIMARY CLINICAL RECORDS. [email or web address] provides no warranty or guarantee of the accuracy or completeness of information in this document.
[2023-12-04 09:11] LABS: HCG Qualitative NEGATIVE (NEGATIVE)
[2023-12-04 09:32] VITALS: BP 126/85; PULSE 88; TEMP 36.3; O2SAT 98
[2023-12-04] MEDS: 0.9 % SODIUM CHLORIDE 10 ML SYRINGE - SALINE FLUSH INJ (10:10)
[2023-12-04] MEDS: LIDOCAINE HCL 2% PF 100 MG/5 ML VIAL INJ (10:10)
[2023-12-04] MEDS: DEXAMETHASONE SOD PHOS 10 MG/ML VIAL INJ (10:10)
[2023-12-04] MEDS: IOHEXOL 240 MG/ML - 10 ML VIAL INJ (10:10)
[2023-12-04] MEDS: BUPIVACAINE HCL 0.25% PF 25 MG/10 ML VIAL INJ (10:10)
[2023-12-04 10:11] VITALS: BP 137/78; PULSE 81; O2SAT 93
[2023-12-04 10:12] VITALS: BP 129/72; PULSE 93; O2SAT 94
--- NOTE | 2023-12-04 10:12 | P.ON_ITS ---
Date of procedure: 12/04/23 Pre-op diagnosis: Lumbar stenosis with neurogenic claudication Post-op diagnosis: same as pre-op Procedure: Procedure: Right L3-4, L4-5 transforaminal epidural steroid injection Medications: Bupivacaine 0.25% 2cc, lidocaine 2% 1cc, kenalog 80mg The patient was seen and examined in the preoperative holding area.? Informed consent was obtained and placed on the chart.? Patient was brought to the medical procedure unit and placed in the prone position where a timeout was completed verifying the correct patient, procedure site, position, and planned special equipment using sterile aseptic technique.? Under direct fluoroscopic visualization a 25-gauge Quincke tipped spinal needle was advanced to the designated neural foramen where contrast dye was injected to show adequate spread.? The needle was inserted at level right L3-4. There was no evidence of vascular or adverse uptake.? Epidural spread was appreciated.? The above- mentioned injectate was then placed in a 1.5 mL aliquot preceded by negative aspiration.? The needle was removed. The needle was inserted and the procedure repeated at level right L4-5.? The surgery site was covered.? Patient was taken to the postprocedural recovery area and monitored for an appropriate length of time before found suitable for discharge in the accompaniment of a responsible adult. Anesthesia: Local Surgeon: Najma Richardson Pathology: none sent Condition: stable Disposition: no change
== END 2023-12-04 10:18 | disposition home or self-care (01) ==
PROVIDERS: PCP Physician Assistant; Visit Provider Anesthesiology
DX: M48.062 Spinal stenosis, lumbar region with neurogenic claudication (principal)
CPT/HCPCS: 36415; 64483; 64484; 84703; J1100; Q9966

== ENCOUNTER 2023-12-08 19:56 | Emergency (ER) | payer MEDICAID, SELFPAY ==
[2023-12-08 20:00] VITALS: BP 137/74; PULSE 88; TEMP 36.7; O2SAT 93; BMI 60.4
--- OUTSIDE RECORDS SUMMARY | 2023-12-08 20:03 | XMS_ITS | CCD ---
Author Organization [facility] Care Team Providers Care Block Cleaner Name Role Phone FRANCOISE BARNES Unavailable Unavailable DANUTA MATA Unavailable Unavailable Gus, Ida Evans Attending Unavailable Gus, Ida Evans Attending Unavailable GusIda costa Attending Unavailable FRANCOISE BARNES Referring Unavailable FRANCOISE BARNES Admitting Unavailable MOLLY, FRANCOISE Primary Care Unavailable FRANCOISE BARNES Attending Unavailable Tyler Petersen Attending Unavailable HEMFRANCOISE HUMPHREY Primary Care Unavailable SUNSHINE QUARLES Admitting Unavailable SUNSHINE QUARLES Attending Unavailable MISC, DR SLOAN Primary Care Unavailable [place]AM [place], DR EM Snyder Consulting Unavailable TRENT Keller, SUNSHINE Consulting Unavailable GRANT NAYAK Consulting Unavailable HEMKAM, DR FRANCOISE Del Castillo Admitting Unavailable HEMMER, DR FRANCOISE Del Castillo Attending Unavailable MISC, DR SLOAN Primary Care Unavailable HEMMER, DR FRANCOISE Del Castillo Consulting Unavailable HEMMER, DR FRANCOISE Del Castillo Admitting Unavailable HEMMER, DR FRANCOISE Del Castillo Attending Unavailable NON STAFF Primary Care Provider UnavailMD Jamey Kapoor Attending Provider MAHIN Szymanski Attending Provider Shalini Coffey MD Primary Care Provider Debra SIERRA, Najma Jay Attending Unavailable Debra SIERRA, Andrius Pierre Attending Unavailable Debra SIERRA, Andrius Pierre Attending Unavailable Debra SIERRA, Andrius Pierre Attending Unavailable Debra SIERRA, Andrius Jay Attending Unavailable Debra SIERRA, Najma Jay Attending Unavailable FRANCOISE BARNES Attending Unavailable HEMFRANCOISE HUMPHREY Attending Unavailable HEMFRANCOISE HUMPHREY Attending Unavailable HEMFRANCOISE HUMPHREY Attending Unavailable Simona Szymanski Admitting Unavailable NON STAFF Primary Care Unavailable Simona Szymanski Attending Unavailable Jamey Morgan Attending Unavailab le Jamey Morgan Admitting Unavailab le NON STAFF Primary Care Unavailable Allergies Allergy Classification Reported Allergen(s) Allergy Type Date of Onset Reaction(s) Facility (1 source) Cephalexin; Translations: [Keflex] Drug Allergy [facility] Repository (5 sources) Clindamycin; Translations: [clindamycin] Drug Allergy [facility] Repository (6 sources) Codeine; Translations: [codeine] Drug Allergy [facility] Repository (1 source) NSAIDs; Translations: [NSAIDs] Propensity to adverse reactions (disorder) [facility] Repository (4 sources) Penicillins; Translations: [penicillins] Propensity to adverse reactions (disorder) [facility] Repository (1 source) Sulfonamides (Antibiotic); Translations: [sulfa drugs] Propensity to adverse reactions (disorder) [facility] Repository (1 source) alot of ATB's, I dont know names; Translations: [alot of ATB's, I dont know names] Propensity to adverse reactions (disorder) [facility] Repository (1 source) Penicillin Drug Allergy [facility] Repository (1 source) Sulfonamides (Antibiotic) Drug allergy (disorder) [facility] Repository (3 sources) Sulfonamides (Antibiotic); Translations: [Sulfa (Sulfonamide Antibiotics)] Allergy to substance 7 [facility] (3 sources) erythromycin base; Translations: [erythromycin base] Allergy to substance 7 [facility] (1 source) Bacitracin / Polymyxin B Drug Allergy 3 [facility] Healthcare Work Phone: (1 source) Ciprofloxacin Drug Allergy 3 [facility] (1 source) Erythromycin Drug Allergy 5 [facility] (1 source) Penicillin G Drug Allergy 3 [facility] (1 source) Sulfonamides (Antibiotic) Drug Allergy 5 [facility] (1 source) Soap Allergy to substance 7 [facility] Medications Current Medications Medication Drug Class(es) Dates Sig (Normalized) Sig (Original) acarbose 25 mg oral tablet (1 source) alpha-Glucosidase Inhibitor Start: 04-25-2023 acarbose (Precose) 25 MG tablet Take 1 tablet by mouth in the morning and 1 tablet at noon and 1 tablet in the evening. Take with meals. 0 04/25/2023 Active [id number] 200 actuat albuterol 0.09 mg/actuat metered dose [...] mg by intramuscular injection every month Aripiprazole (Abilify Maintena) 400 mg Suspension,Extend ed Rel Syring [...] once daily cholecalciferol (Vitamin D-3) 250 MCG (15736 UT) capsule Indications: Vitamin D deficiency Take 1 capsule (250 mcg) by mouth 1 (one) time each day at the same time. 90 capsule 3 02/06/2023 Active Continuous Blood Gluc Hoseman (FreeStyle Samreen 2 [place]) device (1 source) Start: 02-23-2023 Continuous Blood Gluc Hoseman (FreeStyle Samreen 2 [place]) device USE DIRECTED 0 02/23/2023 Active Continuous [...] Start: 08-15-2017 take 2 tablets by mo [facility] once daily Multivit With Min-Folic [...] (1 source) Polyene Antifungal nystatin (Mycostatin ) 548125 UNIT/GM powder Apply 1 application topically in [...] wo conon MR lumbar spine wo con [facility] [place] [address] MRI Report Signed Patient: Marilee Arriaga MR#: [id number] : 1975 Acct:[id number] Age/Sex: 47 / F ADM Date: 09/19/23 Loc: Room: Type: [facility] Attending Dr: Simona STOCKTON Copies to: MAHIN [...] Beckford Jr., D.O.09/19/2023 2:27 PM Dictation Location: [place] [address] Transcribed By: [facility] 09/19/23 1427 Dictated By: Linden Beckford Jr, DO 09/19/23 1412 Signed By: 09/19/23 1427 Normal [facility] XR pre/post mri xrayon 09-19 XR pre/post mri xray [facility] Main [place] [address] [place] [address] XRay Report Signed Patient: Marilee Arriaga MR#: [id number] : 1975 Acct:[id number] Age/Sex: 47 / F ADM Date: 09/19/23 Loc: Room: Type: [facility] Attending Dr: Simona STOCKTON Copies to: MAHIN [...] by MRI. Impression dictated by: Linden Beckford Jr. D.OArianna09/19/2023 3:08 PM Dictation Location: [facility] Transcribed By: [facility] 09/19/23 1508 Dictated By: Linden Beckford Jr, DO 09/19/23 1507 Signed By: 09/19/23 1508 Normal [facility] ECHOCARDIO M/2D COMPLETEon 0 11-07-2022 ECHOCARDIO M/2D COMPLETE Patient: MARILEE ARRIAGA Exam Date: 11/07/2022 : 1975 Gender:F Ordering : DR FRANCOISE MARTINEZ Admission #: [id number] Family : Order #: [id number] CLICK HERE TO VIEW EXAM ECHOCARDIOGRAM REPORT [...] Shay Masters M.D. on 11/07/2022 at 19:16 [facility] Coding Summary.on 05-04-2022 Coding Summary. CD:[id number] Gh0bWw+PGh lYWQ+IQ4QIOZjF84ozAWqrQ4GI9hOQ W5FUUBWLYWGVR9QHE4zzOA2WXvmY2Q ybiAv IofsnZLoQW08JZn3FXL8pVbgAXwytE 6qsJBgW7h3QcXaHL27xC67HNdrEKCb CcK2WwDrirckdARn T6vzCbUcvHFsWtk+PHRhYmxlIHdpZH PrDXieJAMyWwIjqPutRE3tXs3bLQGx LWNvbGxhcHNlOiBj l4slAYBnDYgzTK5upRqnM0VjiXY7XG Jdi6q8Xu61uRN+JPSwXOU6eHlfDMxy q877BqQjk9mjLEL7 sIHmNEuwXAY6B43ki5H0LXIuTJUbSJ M2wKD6aW4joDtdmqeeQ1SgjPPmZjV8 VUD2gEUlxN8ajHkp satueZ0uNzb+J30NWP0EJKHYWI8EGw u9K4WxNqemyBN+DV24KXDjBF29bJJk dAMzy6rhoPj9WfMz BKXwQSO8dLtzJZqby1VpAGIpW97vmI Lpa4Y1KHOzpVhdcSAvXrFgtPJ2vX3a MEcbsvgdp3yyjbjc Frwgh3pdqc82vF96C22qCTuwPZNjFQ S8ADDuHWAoaQixgm4szL3wLu0+IDxj m2tej7imuFe3IdNg OQEpsaFhpCnxVKC8s7FyLm46H5WjyW xcy7ArTlk2za11vPWpi7L8hXD7SLmd JLApyQ0vHGiaMyS0 UZRiHgCblS19bHSxEOypYm5owZxrsM tjZE4aXKIzszrvONWkvY1kPAWmaHAg dMukPA3zPKQgjwid v668YtTzFQL6ROXxdVAcB5DhuT8mFc CaTSIdGSFdF1PbhHZwCEeuX620RNsk JhS3ABMmxfQqZ2Dv QGWmpKrnVfO1l2A7Rx9Lb6EqalhpRP Z1PWimSME2WtU6AoQdDmL0F1WxTiq0 ZSGpoGtyBY2tW4Px HSQymcresulpoWF5ZPRuFIUdrJ92mW OqSBfsRj7gv8S4j726PRIaHGVtbA33 Hl4tnPbjJBOoaTZC lK8zrsqnv9ahnlqzZmThNMBnYZl0ZO z3DQJaqAfxBkNaIZW0UmT0AMI6uXTa zC6glQmueqxryJ8b Oyc+B23xnR7qMMA4FTG1auvvJRXpsv MoPY03KZ11H4SqIbfgrQPneRB+PGRp oaHpiPraMW5wCiSj r2zon5BcMPlfA2KrVPHaRRxiRfj3TU IuMOO9bGR0rL2jPCCxNEggn3Y1uXH8 P5OgffCdlw1un0gx NQMeDNjeR22yoUIqi2P8KNVzyLR4TY HulVkyRyYakX27Jam+GXGxnHdfb7Ok Esjtv8lmc6bvwDp8 AfNyXGMpdtBqdSwmRJS3d7DeGl73G1 0vSBvuIKHxAKRoEHAgOXUkoYapxs6m aC0uWx7+PGNvbCB3 tSR1lX2zNCSjJxH6LJpvX808WfVqyZ XyIqlqi2iwd5fhrVw4JpKoXNTrknFw zFocDZO1g7PtNx27 E25gFLsaKHMrZSMiFDBsLEFdyKajxh 0bkX3iOg8+ZO6ke9eltk28tN27bKT+ BFHoGKF6dLyaJFsb OQGozT7uDAayWhM1ZUEfIdVngK79uR YrUVxmJc5kzKmykOpcQW1wHCSdpqps o918OiZjw4ohFMSe aIPuKCunAQG5H23dk8U5TMVtWPFpAW T4eZX1qV3uvIkcsqwiiNTbqPvtpbIv pAvtOQkvAPjoX718 DOItwYedBxIboAdrfcUbCmMtPHr6F4 XeRzl1ITPxxHbgMF3oqIPaYBttGd9e xNiwcEomUS5xLXTs jbepp166RyLzi8klHOOkuUUrRNbeLN O2K28qc1H1ZMLrVSQaCLB6nJT7lR9q bGlnbjogbGVmdDsg udOjuIbqOVcfKXdkL029DIZnyXadJu SudvHoGZObaPM1DU99SL68cTUap5D7 hVS5I5HeVSYfpbtx jepwpLI8RVHpVKHxuT47Dh4ofMwcTt 4bSVRuYSF8QSImsGWpO2NirD4xIfYb CKVpYDVwT8XmxDLt HKviE453FMloGgD4VPCbcbSzM5RbQP GalUefWuK9g7O4Ol1UY7M5BC71AD96 vZBia4L7vIY6E6Bv NNPzetiknurdiLJ0LDErSATirV20Xr 4sfXdfCs2rFQCgMZH3NNTggXDzL4Ch cY6iOyBlBXUkLPFi Q1RrdNTxHTppR997CIjrPoJ1WEQsqb TvE4AyTIXukPauJuM3v1Q4Jg7IVIy8 IJ14LR35wPXle0L7 uDQ8A7OqLKWxqnufmnrprKS0WWOvRQ AxsU50Ev2txUvqVh6jRUMiLIT8GEBn gSKsJ8VlmB8pDcSp BOOcZODlV8KcrVTtOLxeQ845CPhnMr D3CVMebkXsZ4QmNLLylRyyNiQ9t7D9 On8YVLBeDZ79WFE1 jJP4YT00AW34H0YbOdmwyJJhtLD+PH RhYmxlIHdpZHRoPScxMDAlJyBzdHls IS3kMo6rPMNnZTCo sAcqjKHlEeDvi9ezANOsCJqkFC1ikW daD1FzdBJ0VTXgz9y3Eu36K36lR3Kp dXA+YCCflAQ9pNY8 aS0dEnHrGmM3BUikY185YqXkeEPwJd pnu0iec8etcHx9XvK1TQPcpqSqvRfv GVO6b2OfGb35T18q WHjqLLEkSTDhXMNsRQUxdEsduk7uqY 9wIi8+KZBccDS7iSP4jE0fCuReXbW4 PQvhB179BkAgcUBm Ygnzt1ika5xzsHh2PhSpIGWwnfPcyX qmOBR2c0PqCl48H0WuqZtwj4LnYjp7 me25wVAqa6J4pNW3 L1VsFVQxaijzmYFlpDlvTM7cBERqnq duYTFdpR7sKVCwO9j0RsEiQeA1XIok G0ApxjK3SMJqeHHj VPveONW6Q57li7O2WHCsSJNxDHD0uE A3vK0loYgmywanvBTexHionvOaaSsy FKtzJShwJ875LCEv xYmbWUNqsG8uLQDodQCriFflCD3wVK EhrgcrNlYSIRcAFVYIZH3PHLBSWwFD CZ89HQ43aHLlh9A8 sWA0N7IpTANjpibtxlrvpSC1SJFdMW GlwL96hXYiBLtzEu9wo2C4g925CCPh DCXvgE15Fu1kcNhg PDYnmDFMoB8pjirme2cpewvdUvQgTB OiJYn6NSv2OCRbdUtrGiQtPKG7YeQ0 FTX1vZVcrT0opJbg duxevI4dJji+KHWeCuFsBXh0ISqxaT Q+EKVjROL7uJeaMGbyUPUepN7pQAFn T7j9SuJgBgB5EBqs R1XeYBPlfotxHi59qJ2nLrVkUjP8PN gmE8AvbdI4BHRfrMCcQUgeOQO8G51v m8J5DIAfMULwXHX1 aPM6kB0fmWyogduvoQOdnRluxcEfpF ewXMrrQZscF843JBUkdBcnVuY5HCre SMRqCP06NB76eHPl j1W2tNQ7B3TnGEBkjinnxkwbbYA4VO DzNUBgoI73aQUrXDlgRq5lt3C0k701 RORhASSapF34Ay9r bEblGERnvHFIhR0mziuuo2mmyybhHk ToSBJeOIt7FAl5BCWonZseLfOnLXB4 QbU0OQK7gDUhuE2z sPybfpdflF4jSsj+LpXkOLgeOM03PS 58pLQzz3J1gTP7Y6ZbUNQkefphhzje eTL7LZLaRMCppR85 aVBjGHxzIc2dy8Y9p112SLNfWQBobG 41Ap1kwZwvRWZyaHCCsP0kfwnsn7hf cjogIzAwMDAwMDt0 WVf7JLRbvLrtAoBqUXO3AuF9KLT5qD CdbH0iiLrxdvhigO7mGvx+UmVjdXJy xL6yES47CK61E5Zg PjwvdGFibGU+PHRhYmxlIHdpZHRoPS nvUGPoQdZczPqwJW1eOb3qNNVhIKTa rQcuhOEdXiCtl6ww MYHnDSzlPH6grYqiE4WrmAN6HYObq7 a7Fd61K08yQ7FulXG+DBFjfJA2rCG2 oQ7tKxXmMtA5TLbw P214AmDyiEUnFemto2qyv0ekfCh9Az GzZEWjlxPhkKbwUFH0e5PiSl70Z80h IHdpZHRoPSIyMCUi GKJzwTecca1pdG6gCf5+IRZkjJA0zW M1lJ8aPuLvMcO0NNqjR310GyYkzJXq TkwtM82rQ0TtxUW+ YSTdTrz2TSLskKwsCW8knMSuZPetBu 9rQXZ4ElHhNeWiHWmeQ3YvKWYpclod vbavlXC2BRYwWWSi zG04Bx8jkEseTt9tNNSjLAH3AKQoqM QrM8ZdgR5fBxNvRDUgUPPsN1PrcZJz IAxyJ515NLftMzI1 LOXxqyOeO8KmUCDshOrbWgN3l7X1Fv 9KsNvgvUHmCE3oNeCdMKb4I2HkLzs7 ZBKriBdkGQ5peROl BPewFc5mnYhnfSlwXB4mGHAftzjcw4 98JwTeq2wcHVXfwBEhXXlsMED4N16o o6R1WMPuKJAaCHV3 eME8gB6sbFsoksounBSupDatbeXxvO moDDgzVMsdI224KMKabBzpNmXWNac2 P7TyAbu2CJEkiAsk TP2abPUaMKkhAq4akDeujIwnEA6nCR Wytphws854OdKat8ekXLIauHKsACzc QIE8P21nx1U5AWRc OWAxCFK2rQU6wH0doTsyedaveCQjlK dfofWeeJjiQEvjTUwtR270QXXajWuv Cp0IIch3Z7UuIcn3 MMSbfFzePF2vxWRzNFhgCv0rjOwryM zqOA8eHLFommmuw401PnBli9vlWGZl vKZsSPhuTLH0H81k u4S3LEEyEAErBGL5xZG9wX9giUfojw litHFicBjforWguXipEFzbZUfbO379 IHRvcDsnPlBheWVy OjwvdGQ+YG86vk06F9KvYasaInq8DJ EmKOW2tRQ7aW7nZCUwNHquf5H5vVX8 C7GsbjNmmr4kn2pw YXBz (more content not included)... [facility] Consent for Treatmenton Consent for Treatment [id number]#[id number]:127 [facility] Outside Records Officeon Outside Records Office [id number]#[id number]:127 [facility] Physician Orderon 04-14-2022 Physician Order [id number]#[id number]:127 Normal [facility] Coding Summary.on 11-12-2021 Coding Summary. CD:[id number] Gh0bWw+PGh lYWQ+ML2QOSCsX64tdUGwrW1QA5cCZ A4EINJQBHDKVC7DYP2uhSF2RKkpF4B ybiAv TweumANeGY95SLg9VFI5eQknCXtrrV 0yxHJqM2k4AcCfYS23gC39QPtvYRVm IyS4CtJzeumaiDIu S4ibEeGtpJTkHgz+PHRhYmxlIHdpZH GkRCooMDOnGfLwrTkyGE8tCl5aRWXb LWNvbGxhcHNlOiBj w6vgUGQvLSxrCW7igWnbO8ZvzLB9PZ Inx7r3Pd87kJR+OGWfWNF8bKvvFRcd f869HmKxc3gbBPZ2 dOGbPYobEEZ3V91jk3K5LQRmFBVeOS C1zRG3tR1jgJstmromO3RheDVhYxG0 DZU4eFMysP2erFjx dkmjyM8pVai+L05VAN9DVAIQCB4DHy g4E9EvYdvgvYJ+SR31WMSsZE87mZDz iWGex5dwlUz7ArFd SSBtQHE4oAylZSlrk8IxOGYpH09rrE Dul6F6IDAqrBnvjMRxEeHziNB7zL0o PPignfqdk7femuiz Cxexk2yipd49dC52V84gLVtpUFFkBU Z0OXBvCQUynJkdbu8qfX9rJu5+IDxj f1rhn8xoiZv6RjUi JCXlheXraIljGWD1x5KeYs36L2VkmY egw5SjGca4me21jFGvy8P2iVZ4YFgw TSOasH4qRQgdHlH3 KBKbLfDpqB30nHOiJSgsXt9mrFgrdO unOS4kZMSkqtgnUFWflR4aTIQfmGUm gNiqAS4uCRTtkuxq j841FwVeLNI1OCJxpOLdA1YicT3lOd HoNIWfWXIjP0MoyOJnLDufC700IFve MwH9KIFthcGzJ7Md NFZuxSmzMzQ3o4S6Ay0Qn4AppdyiJW S9CGvuIGJrYuS9YyKmWlC6M2EfIxl3 FSVpwHvnJQ4jR4Xk XEErfilhupdtaQR6YRTsMMBehO13cD PlVLlkEg2tl9E7w778CVSbIYMzfB73 Ze9dvFtzNYRyiKEI wU4lhmzzp7lgflcaEnUaRKNuVCt4CW e1JCPnxYbdPvKjQHU7DpL6TCJ5yOTx zV1ifEnbtbqkiB3w Oyc+A38eyN7wCQK4ZFS4vwxiVTCpnc WnMG45HI96R0TuIpazbDHgxPU+PGRp wfYvuCgaMR4aAeEm z3swj0PeUYpbA6IkTSHsEZwfAlc0ME WoDPJ5gCB4bA6tWCTsNCvur6R6dAK9 Y2PocdNktb3nh4aw COCuDRcnC19qhDFms9O2PPIxrZL2BJ MtaPdgAeGioH37Fle+RYFtaXqxc3Fz Cdqyz3kpe4tygYl6 YgGhSZLsuhAzkMupYIM4d2UhDl12N3 2oSVbnEORqJNYzFDAsKIOteYubjp0j yS2qKl9+PGNvbCB3 sIF2iN4wCCHuHpH0THsgA823MlKgjE ZfLabfz4sgc2qfdUf8BcIkXCOywfQa pKczQCH2n8MqEc98 T51zDFbfOTJpRGArITApSNYymZkhue 9dvX8bUa5+IR7is0gnnq90sE20uNA+ DMIgYGH0xJzoOBxv NJYntC4pTNjjPiM2GCKvTsAlxP57dQ NbPUyxKd8boNlmaYslUD8kDBQextwd k215CwFxc3nqKTBi bZZsQOnoKKU4U73zl0K3ZPTsHFDkFO O0kOJ6lG6zaJsfoimqeTLkaVfynmCi xZlqJDkbIIivZ003 MGHxiNfmThLvvPyaxyLxXpTnURi9D5 UtEce8PWMyyRfrKK3exHMfFYguLw2p aFoifOvwDL3tCVLg andvm077VoVrn7isOQQwzZEvWDzcKB L3V56nm2S3BBWxOBVqLJS4lMT2lV2j bGlnbjogbGVmdDsg kzRlnXrlAKfjUMuzT841ELCryHsiLr VgobHvSRUuwTD8RO46VM10rERxo9E9 rWG0Q7SfZTSblwjw twqloBL3MUBjVYIvvX29Yf2xuPkxMs 4fBQCpHRL3LGEopTHsX0HgnF6dGcBo ACYwEEOwQ7VbbMFa QDfvG181MAfdWiT0RGNdrrXuN9PmDV RkhGraDkZ0y6E3Oa3GJ9M5MX29LA53 qOAbs2U3rUK9Q4Eq AGPwstshwydprCL6VIMrOMXidA64Pf 3caLbuFe7tOIFcRCU7MEDzbAMdA3Lh nS9fBcVqCXNdIQSt Z6XyvSPbLBbuL490DLgbGcM5DSIpnv OqQ2SgWZLryBwmOsP2y2I1Fh2IHZu8 ZO19NY06lFNpz1U4 pUS8J9IvULGtrobpwolodVY7TVGgXR OsqL99Ci4uuLxvJw3tTCQzSQT2PUXm yWJrI6XjuB1kWjSf NLTdEHFcM0WlzETgBDgkP339XKbjNe X2RIUujaCzJ9OpOOEhgIpdDtM9k8M4 Tl9UUUMiHP25GRA0 wBC4QJ04TJ10J9DxFwlnsSIwyQG+PH RhYmxlIHdpZHRoPScxMDAlJyBzdHls NX1xSx8gWCUyKJMk iDthrDGfKyNix7qpXCOtYCcuQK0zuW jsM1RgzFX7VZZcw0h7Ci41U23jS5Jg dXA+IJJvbXJ9hLC6 jU6cYkLwXvL4IVhbB388CmMdsGZjAm xxx4wsk9pncWu8IvM2ZTUhchTotUqp LKD6l3TeCl52H59q JNtlFPNdBIFaMNFiCXBehTbcvc4kiC 9wIi8+FBHnwMO1bIG7qX5tUqEpTjU8 ODrlR962ShCzjTYd Yutbd6luq5tjmDk6XlOoEAKmfcXkfH neBHV9f9AgLt43J6FmtZxac4FdCvr1 bs44oGCrb1E2zKX2 E3NsKVTpoeflwKFnlWafWG9nXELnjd ctEXAjrY6hJXSdE4j3RrIuReN8HZog J7LrhxG9BWDcaVEr LAwbBTL1G30jd4D3TIGvMTQtABM8nI E6yG9zdZiukcproBUfqIhfznUbcNaw PTyaGPjyD974SDZo qEkoMRHumZ7mTUNdlKYjyFnjVQ0fKI BtyqnlOhRPMJwMWKZQTQ5YFPRFGbZK OQ74IK96pJQoc3F0 sSG8A8HrWADbiqxugglqoVJ9VDTdSZ SpsD86oYXjGFmlSk2iy2O8h029IITz QVHzlR52Lo1ysHff CGWmyJFXaH9hqxoth6fnkbkkCcZiSI GlGVc8UNo3KTYjpEihQhEkLFX9NfW8 ZTP0yLRnbM2cpBqv wisbqC4hNda+VIPdVeEdKNn7ZHsmkT Q+RTHwAVM5kWfaJVycNTZghC0oMPWo F2c8PoVcGaP1XCxu D3KcVYYlprtmLt51sP2qLbQrBaZ3LY nlZ5HjguJ6QTNzrXJcNTmwYOD6T85b i0N9IZQpHXEcLVK5 fAI0vL0qrBaebkjxeAMviVvgddBweM hnBFaoHGjwO135JUPcuEnuNbVdHOzx CZMdGH89ZQ73lTYy r7B2gMK0H8CwGTHwipoflqrvfLF0XT WkPXOgrF93iHVeXZqgCe4ia4A3p852 HBGuCZZevW97Oz0e eVonYNNgmWVQtQ4cebguz7rnruocSq YoBCNrSWo7NSe5YGMrcKyaChNdZBA8 JcF3TGU4wFPqwD7q kGlljnmnsU5mAri+PoUlQCrwHA26WG 77dETep7W0rUR9E5ScEGVwgjmvaxmk hWK4MMGqCNGooH41 zKGnMZlsGg6gi5T7a096WRYsJPTxrC 95Gh7jbBptNTUjrEUTmX4fdogyl0es cjogIzAwMDAwMDt0 JMh1YFTnfAltChDnMFW6UsP6YGN8yS GifA0dcWmbyitupM2gTfl+JL0ntzlf ljC0IK06AU84G8Le PjwvdGFibGU+PHRhYmxlIHdpZHRoPS apEGBhDhEtzFygYL4eZy4vARRqIREv dUazzXIbNeOii4kp LKAsMNasFZ1yoGwlJ4SbrKH8FGZta4 t3La77G19lS9PblKO+KVGurNE5wIF1 nU3iNvEvFmE0MJri B671WtYehEHgXjgrb9stg8uwzMh6Ra NtCDMrfdVhqCifDUS9p3DbLy13C32m IHdpZHRoPSIyMCUi JSCmaKagfv3toY7tQw4+BTTkgUG7qW F8aC4wLgTxElY6LJasV679AuFsrOXy KdskC32xI2DqkZB+ SBBdAcu7VJTqgZhrYH4xiIDhCRefMc 5zFIX1AdToPaGdOLugP1DjUKMdanve cfkcgRE5PIUwEZGa yE71Bx4rfIbqKm3uCUYuBQV5LTIkiD WzQ6ZwwH5tKiXhBQSvMLLkO5BltWTm BLwfE994MGesXpE2 RJUsnuNtQ5GzOJMtjVhjStE1r1G2Mj 3LjPynxODcUN1tYzLoYLd9E7GzHqr3 JCYwkHkdHI4rxWJx SYmxUk4vyKkqkXbzTC0sJWJcohnzo8 94ZnDii5zdTGCjlIDzVJdyBIF2E10y o3H3IHBeZDXxOZK1 rCW6jT6ykUiersoyeJOffIxufpPnoE tlZUtnPPoyM605LLEsyMuzRjLDGmw0 H4HoUzd5BWDoyRko QV5pmZBaSLqbZu3qiDveySzmNU9yFE Srwqfvy988RcExp8vzHMUggZKvLGls KGP8U52hd2W4STUa NOBgGHF3xZU5hB5crZbvvhmlvJXtrT pninOslExaNJhkPEzqX929OGYytSef Wd7HWgg4B1IaLce5 KQMuhZknGF7plPVvBByzFf7ebGjeeW vsUU1jQLExhpfvh650UgOcv2ghQFGg iNErWSqcYLR0C03k m9I4WNTmTFRqSOJ9tXM1tY5fzRlvkw uxgAEwlBzotzQweWvkXCtcJHrlV451 IHRvcDsnPlBheWVy OjwvdGQ+JP45lr27T5PaNhjaPuw4ZY CyUUN8fCE2gL4hVFKnCKerg4C7wVQ1 Z7AjttQlyc3jh0yw YXBz (more content not included)... Normal [facility] Consent for Treatmenton 10-19 Consent for Treatment [id number]#[id number]:127 Normal [facility] Discharge Instructionson Discharge Instructions [id number]:127 Normal [facility] ED Clinical Summaryon 2021 ED Clinical Summary [place] [address] ED Clinical Summary Person Information Name: MARILEE ARRIAGA Felipa/[facility] Age: 45 Years : 1975 Sex: Female Language: Mohawk PCP: FRANCOISE GAY Marital Status: Single Visit [...] 16:00:59 11/05/2021 16:00:59 11/05/2021 16:00:59 ADDRESS: [address] [place] [phone] PHYS DOC NOTES: MEDICAL INFORMATION: Prescriptions Given: New Medications [id number], [address] [place], [place] [phone], [phone] acetaminophen-hydrocodone (Biddle 325 mg-5 mg oral tablet) 1 Tablets [...] Follow up: With: Address: When: Em Mir [address] [place] [id number] Business (1) In 3 days 11/08/2021 Comments: Return to the emergency room if your pain gets worse or any new symptoms. With: Address: When: FRANCOISE BARNES [address] [place], [place] [phone] Business (1) In 3 days DIAGNOSIS: 1:Avulsion fracture of left ankle; 2:Sprain of left foot Normal [facility] ED Note-Physicianon 11-06-19 ED Note-Physician Basic [...] and crutches was given. Patient was given Biddle in the emergency room. Will discharge patient home with Biddle and follow-up with Ortho. The OARRS report [...] Foot 3+ Views Left Medications Administered Given Biddle 5/325 Tab, 1 tab(s), Oral Disposition Plan Patient Discharge Condition Stable Discharge Disposition Discharged home Discharge Prescription List Prescriptions Biddle 325 mg-5 mg oral tablet, 1 tab(s), Oral, q6hr, PRN Follow-up With When Contact Information Em Mir In 3 days 11/08/2021 EDT [address] [place] [phone]- Business (1) Additional Instructions: Return to the emergency room if your pain gets worse or any new symptoms. FRANCOISE ABRNES In 3 days [address] [place] [phone] Business (1) Additional Instructions: Patient Education Crutch [...] Inpatient No active inpatient medications Home [address] Prefilled Syringe 400 mg intramuscular injection, extended release, 1, IntraMuscular, qMonth busPIRone 30 mg oral tablet, 30 mg= 1 tab(s), Oral, BID Imitrex 25 mg Tab, 25 mg= 1 tab(s), Oral, q6hr, PRN Lamictal 100 mg Tab, 100 mg= 1 tab(s), Oral, Daily Biddle 325 mg-5 mg oral tablet, 1 tab(s), Oral, q6hr, PRN ondansetron 4 mg/5 mL oral solution Prozac 20 mg Cap, 20 mg= 1 cap(s), Oral, Daily Prozac 40 mg Cap, 40 mg= 1 cap(s), Oral, Daily Qvar with Dose Counter 80 mcg/inh inhalation aerosol ranitidine 150 mg Tab, 150 mg= 1 tab(s), Oral, BID SEROquel 100 (more content not included)... Normal [facility] Comment on above: Result Comment: Elec [...] 08/04/2001 Document Revised: 07/20/2018 Document Reviewed: 01/27/2017 [employer] Patient Education ? 2020 [employer] How to Use a Stirrup Ankle [...] the bra (more content not included)... Normal [facility] ED Patient Summaryon 022 ED Patient Summary [facility] [address], [place] [address] Patient Discharge Instructions Person Information Name: MARILEE ARRIAGA Age: 45 Years Arrival Date: 11/05/2021 13:19:01 Discharge Diagnosis: 1:Avulsion fracture of left ankle; 2:Sprain of left foot Primary Care Physician: FRANCOISE GAY Provider Information Primary Provider: Tyler Petersen M.D. Advanced Scaling Machine Operator:None The exam and treatment you received in the Emergency Department were for an urgent problem and are not intended as complete care. It is important that you follow up with a doctor, nurse practitioner, or physician?s fleet administrative assistant for ongoing care. If your symptoms [...] Instructions: With: Address: When: Em Mir [address] [place] [address] Business (1) In 3 days 11/08/2021 Comments: Return to the emergency room if your pain gets worse or any new symptoms. With: Address: When: FRANCOISE BARNES [address] [place] [phone] Business (1) In 3 days In the [...] opioids can be used to help relieve volxpstk-hf-zejyfq pain and are often prescribed following a [...] Administration (www.fd (more content not included)... Normal [facility] XR Ankle 3+ Views Lefton XR [...] Barnett MD Transcribed by: KAIDEN Technologist: Normal [facility] XR Foot 3+ Views Lefton 10-19 XR Foot 3+ Views Left Exam Date/Time: 11/05/2021 13:50 EDT Reason for Exam: Fall Report Refer to concurrent left ankle radiograph dictation. FINAL REPORT Dictated: 11/05/2021 2:04 pm Rony Barnett MD Signed (Electronic Signature): 11/05/2021 2:04 pm Signed by: Rony Barnett MD Transcribed by: KAIDEN Technologist: Normal [facility] MRI BRAIN W WO CONTRASTon MRI [...] by:SUMANTH Garciaigned by:Margo Mendez MD02/13/18inal result [facility] CN HNO ID: [id number] thor: Mark Anthony (Romain) AdenugaService: General SurgeryAuthor Type: ResidentType: Discharge SummariesFiled: 02/16/2017 11:44 AMNote Text:[facility] [place], [place] [phone] or [phone]) [facility] O N F I D E N T I A L I N F O R M A T I O N -----STANDARD [facility] DOCUMENTDISCHARGE SUMMARYPatient Name: Marilee Buckner Date: 02/13/2017Discharge Date: 02/16/2017Attending Physician: Eleni Pfeiffer Diagnosis: Morbid obesitySecondary Diagnoses:Patient Active Hospital Problem List: Obesity, Class III, BMI >= 40 (morbid obesity) ([facility]) E66.01 (02/12/2017) Morbid obesity ([facility]) (02/13/2017)Operations During Hospitalization:Laparoscopic Crystal en [...] as needed.Future Appointments:Future AppointmentsDate Time Provider Department Radiant02/23/2017 2:30 PM [id number] MORENO GENBMI GENS A/M 03/09/2017 11:00 AM [id number], KASEY (PHD) GSPSMN GENS A/M 03/16/2017 12:00 PM [id number] 2 GENBMI GENS A/M D04/06/2017 1:45 PM [id number] LUNDBERG GENBMI GENS A/M BLD05/16/2017 10:30 AM [id number] TAM GENBMI GENS A/M D05/16/2017 10:30 AM [id number], LISSY Gale GENBMI GENS A/M BLDPatient will follow-up in clinic with Renée Moreno MD as scheduledabove, or sooner if the need arises.Electronically SIGNED by Licensed Independent Practitioner: Mark Anthony Jean MD Normal [facility] Glucose POCT (East, West, SC A Use Only)on 02-16-2017 Glucose mass conc 105 mg/dL High 65-100 [facility] Comment on above: Performed By: #### G LUP ####[facility] [place], [place] [phone] NURSING PROGon 02-16-2017 NURSING PROG HNO ID: [id number] thor: Lilibeth Ortega (Rn) Racquel Santosice: (none)Author Type: Registered NurseType: Nursing Progress NoteFiled: 02/16/2017 11:37 AMNote Text: Nursing Progress NotePatient Name: Marilee OlivierHesham: [id number] Location: [address]/LG-[id number]-13 Da nena Note: Patient has been discharged [...] note was completed by: Lilibeth Santos RN [facility] NURSING PROG HNO ID: [id number] thor: Lilibeth Ortega (Rn) Danielle, RNService: (none)Author Type: Registered NurseType: Nursing Progress NoteFiled: 02/16/2017 10:27 AMNote Text: Nursing Progress NotePatient Name: Marilee OlivierHesham: [id number] Location: [place] [address]/[id number] Da nena Note: Doing better this am, able to take all of pills and drink theKphos, took a shower, so taking in more po, pain controlled, no emesis, nomore bloody stool, ambulating VSS, on RA, expecting to go home today,continue to monitor.This note was completed by: Lilibeth Santos RN [facility] PROGRESSon 02-16-2017 PROGRESS HNO ID: [id number] thor: Hiram (Romain) HuysService: General SurgeryAuthor Type: ResidentType: Progress NotesFiled: 02/16/2017 8:02 AMNote Text:General Surgery Progress NoteName: Marilee OlivierHesham: [id number]: 02/16/2017SUBJECTIVESubjective: No acute events overnight. Last melenotic [...] lb) LMP 01/27/2017 SpO2 94% BMI 62.73 kg/p0Nummla/Output Summary (Last 24 hours) at 02/16/17 0759Last [...] with morbid obesity now POD 3 s/p gpnscqfzinqwQyxn-lz-S gastric bypass. Bloody bowel movements resolved with stable H/H.- Phase 2 bariatric diet- Heplock IV- Wean O2- PO pain meds, hold toradol- Will discuss resuming DVT prophylaxis- Encourage incentive spirometry and ambulation- Anticipate discharge today on home Richelle Gordon MDDec[facility] Surgery ResidentPager [phone] Normal [facility] Basic Metabolic Panlon 02-15 Anion gap 10 mmol/L Normal 9-18 [facility] Comment on above: Performed By: #### B VIANCA MG1, PHOS ####[place] [id number] [place], [place] [phone] Calcium 8.1 mg/dL Low 8.5-10.5 [facility] Comment on above: Performed By: #### B VIANCA MG1, PHOS ####[place] [place], [place] [phone] Chloride 104 mmol/L Normal 98-110 [facility] Comment on above: Performed By: #### B MP MG1, PHOS ####[address] [phone] CO2 27 mmol/L Normal 23-32 [facility] Comment on above: Performed By: #### B VIANCA MG1, PHOS ####[place] [address] Creatinine 0.78 mg/dL Normal 0.70-1.40 [facility] Comment on above: Performed By: #### B VIANCA MG1, PHOS ####[place] [address] eGFR (non-black) mL/min/{1.73_m2} Normal >60 [facility] Comment on above: Performed By: #### B VIANCA MG1, PHOS ####[place] [address] Glucose mass conc 119 mg/dL High 65-100 [facility] Comment on above: Performed By: #### B VIANCA MG1, PHOS ####[place] [address] Potassium molar conc 4.2 mmol/L Normal 3.5-5.0 [facility] Comment on above: Performed By: #### B VIANCA MG1, PHOS ####[place] [address] Sodium 141 mmol/L Normal 132-148 [facility] Comment on above: Performed By: #### B VIANCA MG1, PHOS ####[place] [address] Urea nitrogen 15 mg/dL Normal 8-25 [facility] Comment on above: Performed By: #### B VIANCA MG1, PHOS ####[place] [address] CBCon 02-15-2017 Erythrocyte distribution width Auto Ratio (RBC) 12.9 % Normal 11.5-15.0 [facility] Comment on above: Performed By: #### C BC ####[place] [address] Erythrocytes (RBC) 3.63 10*6/uL Low 3.90-5.20 [facility] Comment on above: Performed By: #### C BC ####[place] [phone] Hematocrit (HCT) 33.8 % Low 36.0-46.0 [facility] Comment on above: Performed By: #### C BC ####[place] [phone] Hemoglobin mass conc (Bld) 10.9 g/dL Low 11.5-15.5 [facility] Comment on above: Performed By: #### C BC ####[place] [phone] MCH 30.0 pG Normal 26.0-34.0 [facility] Comment on above: Performed By: #### C BC ####[place] [phone] MCHC mass conc (RBC) 32.2 g/dL Normal 30.5-36.0 [facility] Comment on above: Performed By: #### C BC ####[place] [phone] MCV 93.1 fL Normal 80.0-100.0 [facility] Comment on above: Performed By: #### C BC ####[place] [phone] Platelet mean volume (PMV) 8.5 fL Low 9.0-12.7 [facility] Comment on above: Performed By: #### C BC ####[place] [phone] Platelets 368 10*3/uL Normal 150-400 [facility] Comment on above: Performed By: #### C BC ####[place] [phone] WBC (Leukocytes) 11.75 10*3/uL High 3.70-11.00 [facility] Comment on above: Performed By: #### C BC ####[place] [phone] CBC and Differentialon 02-15 Abs Baso 0.02 k/uL Normal 0.00-0.10 [facility] Comment on above: Performed By: #### C BCDIF ####[place] [phone] Abs [place] 0.97 k/uL High 0.00-0.86 [facility] Comment on above: Performed By: #### C BCDIF ####[place] [phone] Abs Neut 8.11 k/uL High 1.45-7.50 [facility] Comment on above: Performed By: #### C BCDIF ####[place] [phone] Basophils/100 WBC Auto (Bld) 0.1 % Normal [facility] Comment on above: Performed By: #### C BCDIF ####[address] DTYPE Auto Diff Normal [facility] Comment on above: Performed By: #### C BCDIF ####[place] [phone] Eosinophils 0.35 10*3/uL Normal 0.00-0.45 [facility] Comment on above: Performed By: #### C BCDIF ####[address] Eosinophils/100 leukocytes 2.5 % Normal [facility] Comment on above: Performed By: #### C BCDIF ####[place] [phone] Erythrocyte distribution width Auto Ratio (RBC) 13.1 % Normal 11.5-15.0 [facility] Comment on above: Performed By: #### C BCDIF ####[place] [phone] Erythrocytes (RBC) 3.51 10*6/uL Low 3.90-5.20 [facility] Comment on above: Performed By: #### C BCDIF ####[place] [phone] Hematocrit (HCT) 32.6 % Low 36.0-46.0 [facility] Comment on above: Performed By: #### C BCDIF ####[place] [phone] Hemoglobin mass conc (Bld) 10.7 g/dL Low 11.5-15.5 [facility] Comment on above: Performed By: #### C BCDIF ####[place] [phone] Lymphocytes 4.35 10*3/uL High 1.00-4.00 [facility] Comment on above: Performed By: #### C BCDIF ####[place] [phone] Lymphocytes/100 leukocytes 31.5 % Normal [facility] Comment on above: Performed By: #### C BCDIF ####[place] [phone] MCH 30.5 pG Normal 26.0-34.0 [facility] Comment on above: Performed By: #### C BCDIF ####[place] [phone] MCHC mass conc (RBC) 32.8 g/dL Normal 30.5-36.0 [facility] Comment on above: Performed By: #### C BCDIF ####[place] [phone] MCV 92.9 fL Normal 80.0-100.0 [facility] Comment on above: Performed By: #### C BCDIF ####[place] [phone] Monocytes/100 leukocytes 7.0 % Normal [facility] Comment on above: Performed By: #### C BCDIF ####[place] [phone] Neutrophils/100 WBC Auto (Bld) 58.9 % Normal [facility] Comment on above: Performed By: #### C BCDIF ####[place] [phone] Platelet mean volume (PMV) 8.3 fL Low 9.0-12.7 [facility] Comment on above: Performed By: #### C BCDIF ####[place] [phone] Platelets 391 10*3/uL Normal 150-400 [facility] Comment on above: Performed By: #### C BCDIF ####[place] [phone] WBC (Leukocytes) 13.80 10*3/uL High 3.70-11.00 [facility] Comment on above: Performed By: #### C BCDIF ####[place] [phone] Glucose POCT ([facility] [place], [place] A Use Only)on 02-15-2017 Glucose mass conc 111 mg/dL High 65-100 [facility] Comment on above: Performed By: #### G LUPOC ####[place] [phone] Glucose mass conc 121 mg/dL High 65-100 [facility] Comment on above: Performed By: #### G LUPOC ####[place] [phone] Glucose mass conc 99 mg/dL Normal 65-[address] [place] [address] Comment on above: Performed By: #### G LUPOC ####[place] [phone] Glucose mass conc 116 mg/dL High 65-100 [facility] Comment on above: Performed By: #### G LUPOC ####[place] [phone] Magnesiumon 02-15-2017 Magnesium 2.0 mg/dL Normal 1.7-2.6 [facility] Comment on above: Performed By: #### B VIANCA MG1, WILL ####[facility] [place], [place] [phone] NURSING PROGon 02-15-2017 NURSING PROG HNO ID: [id number] thor: Lilibeth Ortega (Rn) Doroteo Santos: (none)Author Type: Registered NurseType: Nursing Progress NoteFiled: 02/15/2017 4:15 PMNote Text: Nursing Progress NotePatient Name: Marilee OlivierJeraldRN: [id number] Location: [facility]/VU-[id number]-39 Da nena Note: Dr called to inform that patient had another bloody stool itwas dark red, no change in vital signs HR has remained in 70's, on RA, noincrease in pain, patient is only taking sips of clears otherwiseunchanged , stable, lab orders again @ 1800.This note was completed by: Lilibeth Santos RN [facility] NURSING PROG HNO ID: [id number] thor: Lilibeth Ortega (Rn) Doroteo Santos: (none)Author Type: Registered NurseType: Nursing Progress NoteFiled: 02/15/2017 10:29 AMNote Text: Nursing Progress NotePatient Name: Marilee OlivierirMRN: [id number] Location: [place] [address]/WH-[id number] Da nena Note:Patient states she's feeling ok, just brought up some 'phlegm',( clearbubbles) no emesis, able to keep down 'bites' or sips of broth and tea,given IV phenergan, denies pain, encouraged to continue to ambulate,stable, call light in reach.This note was completed by: Lilibeth Santos RN [facility] NURSING PROG HNO ID: [id number] thor: Liliana (Rn) Rolo, RNService: (none)Author Type: Registered NurseType: Nursing Progress NoteFiled: 02/15/2017 5:53 AMNote Text: Nursing Progress NotePatient Name: Marilee OlivierirMRN: [id number] Location: [place] [address]/KM-[id number] Surgery paged [id number] Marilee Ariraga: patient had dark bloody BM. pleaseadvise. Liliana Eller [phone] No new ordersThis note was completed by: Liliana Seth RN [facility] PROGRESSon 02-15-2017 PROGRESS HNO ID: [id number] thor: Mark Anthony (Res) SheldonugaService: General SurgeryAuthor Type: ResidentType: Progress NotesFiled: 02/15/2017 8:25 AMNote Text:General SurgeryProgress notesAdmitted: 02/13/2017OR date: 02/13/2017 Procedure(s) and Anesthesia Type: * LAPAROSCOPIC GASTRIC RESTRICTIVE SURG W/ BYPASS AND CRYSTAL-EN-Y = 40 (morbid obesity) ([facility]) E66.01 (02/12/2017) Morbid obesity ([facility]) (02/13/2017)Hold Lovenox/Toradol, recheck labs, decrease [...] RNF, potential discharge tomorrowPaul MD Ted (PGY 2)[id number] 6PM weekdays and all through weekends: [id number] SNausea and emesis yesterday, improving and PO intake improvingSlept okayDark bloody BMs this AMAmbulating well OTemp (24hrs), Av.7 ?C (98 ?F), Min:36.4 ?C (97.6 ?F), Max:36.9 ?C(98.4 ?F)BP 147/78 Pulse 80 Temp 36.4 ?C (97.6 ?F) (Oral) Resp 16 Ht 154.9cm (5' 1 ) Wt (!) 150.6 kg (332 lb) LMP 01/27/2017 SpO2 99% BMI62.73 kg/j3NUUAKUO: Mild distress as actively nauseated and sitting up with vomitbag, alert and oriented x 3HEENT: NC/AT, EOM's intactRESPIRATORY: Respiratory effort unlaboredCHEST-CVS: HDSABDOMEN: Soft, obese and non distended, non tender, laparoscopic incisionsCDI with glueNEURO: Grossly non-focal02/14 0700 - 02/15 0659In: 3622 [PO:300; IV:3322]Out: 2180 [Urine:1850] Normal [facility] PROGRESS HNO ID: [id number] thor: Renée MorenoSerankitae: General SurgeryAuthor Type: PhysicianType: Progress NotesFiled: 02/15/2017 [...] Decrease IVF's as PO intake improvesStacy Gale Moreno MD Normal [facility] Phosphoruson 02-15-2017 Phosphate 1.9 mg/dL Low 2.5-4.5 [facility] Comment on above: Performed By: #### B MP, MG1, PHOS ####[facility] [place] [phone] Vital Signs Date Time Vital Sign Value Performing Clinician Mallorie daniels 09-19-2023 09:41-0500 Body height 157.48 cm [facility] 09-19-2023 09:41-0500 Body weight 104.32 kg [facility] Encounters Encounter Date Encounter Type Care Provider Facility Start: 11-21-2023 End: 11-21-2023 ambulatory FRANCOISE BARNES Not Available Start: 10-31-2023 End: 11-01-2023 ambulatory FRANCOISE BARNES Not Available Start: 10-23-2023 End: 10-24-2023 ambulatory Najma Richardson MD Facility:[facility] Start: 10-09-2023 ambulatory Jamey Minor acility:[facility] Start: 09-25-2023 Refill Francoise MARTINEZ Work Phone: [facility] Comment on above: Chronic pain of both knees Start: 09-19-2023 End: 09-19-2023 ambulatory Simona Szymanski Facility:[facility] Start: 09-19-2023 End: 09-19-2023 ambulatory NON STAFF [facility] Work Phone: Start: 09-19-2023 End: 09-19-2023 [address] encounter [address] [facility] [place] Work Phone: Start: 08-05-2023 End: 08-05-2023 ambulatory FRANCOISE BARNES Not Available Start: 07-26-2023 End: 07-26-2023 ambulatory FRANCOISE BARNES Not Available Start: 07-17-2023 Registered [facility] Start: 06-05-2023 End: 06-06-2023 ambulatory Najma Richardson MD Facility:[facility] Start: 05-01-2023 End: 05-02-2023 ambulatory Najma Richardson MD Facility:[facility] Start: 04-03-2023 End: 04-04-2023 ambulatory Andzaira Kilpatrickitis Facility:[facility] Start: 02-27-2023 End: 02-28-2023 ambulatory [facility] Start: 02-13-2023 End: 02-14-2023 ambulatory Najma Richardson MD Facility:[facility] Start: 11-07-2022 End: 11-08-[address] FRANCOISE BARNES Facility: Start: 06-27-2022 End: 06-27-2022 ambulatory SUNSHINE Keller Facility: Start: 04-27-2022 End: 10-26-2022 ambulatory FRANCOISE BARNES Facility:[facility] Start: 04-22-[address] FRANCOISE BARNES Facil ity:H1 Start: 11-05-2021 End: 11-05-2021 Emergency department patient visit Tyler Petersen Facility:[facility] Start: 09-18-2018 Patient encounter procedure Ida Weber Facility:[id number] Start: 05-08-2018 Patient encounter procedure Ida Weber Facility:9122 Start: 02-13-2018 End: 02-16-2018 Ambulatory FRANCOISE BARNES [facility] Start: 12-19-2017 Patient encounter procedure Ida Weber [...] 02-18-2024 Influenza vaccination Influenza Vacc ine (#1) [facility] Comment on above: Postponed from 04/21 (Patient Refused) Start: 02-11-2024 Screening for malign ant neoplasm of breast Mammogram [facility] Start: 10-25-2023 End: 10-25-2023 Patient encounter procedure 10/25/2023 1:00 PM EST Office Visit [facility] [address] [place] [phone] Francoise Barnes PA [address] [place] [address] [facility] Start: 12-14-2007 Screening for malign ant neoplasm of cervix [facility] Start: 1998 Screening for malign ant neoplasm of cervix Pap Smear [facility] Start: 1977 Screening for malign ant neoplasm of colon [facility] Immunizations Immunization Date Immunization Notes Care Provider Fa cili 05-30-2021 influenza, injectabl e, quadrivalent, preservative free Francoise MARTINEZ Work Phone: [facility] 05-30-2021 influenza virus vacc ine, unspecified formulation Francoise MARTINEZ Work Phone: [facility] 06-12-2020 influenza, injectabl e, quadrivalent, preservative free Francoise MARTINEZ Work Phone: [facility] 12-16-2018 tetanus toxoid, redu brina diphtheria toxoid, and acellular pertussis vaccine, adsorbed Francoise MARTINEZ Work Phone: [facility] Payers Date Payer Category Payer Self-pay [id number] 2022 Medicaid [id number] 2022 Medicaid [place] [id number] 2022-Present [address] [place] [address] [id number] 2022 Unknown 2018 Unknown [id number] 1977 Unknown [id number] 2.16.840.1.260587.3.579.2.356 1977 Unknown [id number] 2.16.840.1.280482.3.579.2.356 1977 Unknown [id number] 2.16.840.1.170541.3.579.2.356 1977 Unknown [id number] 2.16.840.1.918947.3.579.2.727 1977 Unknown [id number] 2.16840.1.972255.3.579.2.727 1977 Unknown [id number] 2.16840.1.347464.3.579.2.593 1977 Unknown [id number] 2.16.840.1.392861.3.579.2.593 1977 Unknown [id number] 2.16.840.1.256615.3.579.2.593 1977 Unknown [id number] 2.16840.1.880756.3.579.2. 1977 Unknown [id number] 2.16840.1.484431.3.579.2. 1977 Unknown [id number] 2.16.840.1.263327.3.579.2.196 1977 Unknown [id number] 2.16.840.1.369042.3.579.2. 1977 Unknown [id number] 2.16.840.1.445929.3.579.2.196 1977 Unknown [id number] 2.16840.1.630950.3.579.2.196 1977 Unknown [id number] 2.16.840.1.930858.3.579.2.9 1977 Unknown [id number] 2.16.840.1.224203.3.579.2.9 1977 Unknown [id number] 2.16.840.1.149902.3.579.2.9 1977 Unknown [id number] 2.16.840.1.245029.3.579.2.1259 1959 Unknown [id number] Unknown [id number] 2.16.840.1.993433.3.579.2.531 Unknown [id number] 2.16.840.1.123719.3.579.2.531 Social History Date Type Detail Facility Tobacco smoking stat us [facility] Unknown if ever smoked [facility] Work Phone: Start: 1975 Sex Assigned At Female F [facility] Start: 09-18-2018 End: 01-23-2023 Tobacco smoking status FLIS Never smoked tobacco (finding) [facility] Start: 01-23-2023 Tobacco use and exposure Smokeless tobacco non-user [facility] Start: 07-26-2023 Alcohol intake Ex-drinker (finding) [facility] Start: 01-24-2023 End: 07-26-2023 History of Social function [facility] Start: 01-24-2023 End: 07-26-2023 Tobacco use panel [facility] Start: 04-26-2023 Alcohol Comment Caffeine intake: sod a [facility] Start: 1975 Sex Assigned At Not on file [facility] Telephone encounter Note 09-25-2023 Telephone Encounter - MICHELLE Cao - 09/25/2023 10:06 AM EST Note Date & Type Note Facility 09-25-2023 Telephone encount er Note OARRS reviewed, Rx sent into patient's pharmacy. [facility] Note 02-05-2024 Telephone Encounter - MICHELLE Cao - 09/25/2023 10:06 AM EST Note Date & Type Note Facility 09-25-2023 Miscellaneous Notes Formattin g of this note might be different from the original. OARRS reviewed, Rx sent into patient's pharmacy. documented in this encounter [facility] Clinical Note 06-27-2022 Note Date & Type [...] authenticated by: EM LÓPEZ Date: 2022-06-27 15:38 [facility] Progress note 06-28-2021 Note Date & Type Note Facility 06-28-2021 Note HNO ID: [id number] Author: Em Fernandez, PhD Service: ? Author Type: Psychologist Type: Progress Notes Filed: 06/28/2021 2:45 PM Note Text: Received mental health records from [facility]. Note from 05/06/21 revealed pt has Schizoaffective Disorder and PTSD. She has been more depressed of late. She is hearing daily voices which are noises, mumbling. She stated she is seeing shadows as well. She rates her depression as 7/10. Pt had RNY gastric bypass with Dr. Moreno in 2017. Based on mental health records patient is not a candidate for a revision at this time. However, would recommend patient establish care with obesity medicine to assist her with managing her weight. She can be followed by nutrition and psychology to assist her with her goals. Partial records have been sent to medical records for scanning. Em Fernandez, psychologist [facility] Evaluation note Note Date & Type Note Facility Evaluation note No assessment information availa [facility] Work Phone: Evaluation note Note Date & [...] section and content) DATE CREATED AUTHOR 02/14/2018 [facility] DATE CREATED AUTHOR AUTHOR'S ORGANIZ ATION 02/16/2018 [facility] DATE CREATED AUTHOR AUTHOR'S ORGANIZ ATION 10/09/2018 [facility] DATE CREATED AUTHOR AUTHOR'S ORGANIZ ATION 10/11/2021 [facility] DATE CREATED AUTHOR AUTHOR'S ORGANIZ ATION 10/28/2022 [facility] DATE CREATED AUTHOR AUTHOR'S ORGANIZ ATION 11/13/2022 [facility] DATE CREATED AUTHOR AUTHOR'S ORGANIZ ATION 10/27/2023 [facility] DATE CREATED AUTHOR AUTHOR'S ORGANIZ ATION 11/22/2023 [facility] EPIC DATE CREATED AUTHOR AUTHOR'S ORGANIZ ATION 12/02/2023 [facility] y[facility] Goals (unrecognized section and content) [...] September 19, 2023 End: September 19, 2023 MAHIN Wasserman Attending Provider Active St art: September 19, 2023 End: September 19, 2023 Block Cleaner Relationship Specialty Start Date End Date Shalini Coffey MD [address] [facility] [address] [place] [address] PCP - General Family Medicine 08/05/23 Reason [...] BE BASED ON THE PRIMARY CLINICAL RECORDS. [facility] [employer] provides no warranty or guarantee of the accuracy or completeness of information in this document.
[2023-12-08] MEDS: FENTANYL CITRATE/PF 100 MCG/2 ML VIAL 50 MCG IV (20:26)
[2023-12-08] MEDS: ONDANSETRON PF 4 MG/2 ML VIAL IV (20:26)
[2023-12-08] MEDS: 0.9 % SODIUM CHLORIDE 1,000 ML 999 ML IV (20:26)
[2023-12-08] MEDS: KETOROLAC TROMETHAMINE 30 MG/ML VIAL IVP (20:26)
[2023-12-08 20:34] LABS: Basophils Percent Auto 0.2 % (0.2-2.0); Eosinophils Absolute Auto 0.3 10^3/uL (0.0-0.7); Eosinophils Percent Auto 2.7 % (0.9-7.0); Hematocrit 40.1 % (36.0-48.0); Immature Granulocytes Abs Auto 0.06 10^3/uL (0.00-0.03); Immature Granulocytes Pct Auto 0.5 % (0.0-0.5); Lymphocytes Absolute Auto 3.2 10^3/uL (1.2-3.8); Lymphocytes Percent Auto 26.4 % (20.5-60.0); Mean Corpuscular HGB Conc 32.4 g/dL (29.9-35.2); Mean Corpuscular Hemoglobin 29.9 pg (26.7-34.0); Mean Corpuscular Volume 92.2 fL (81.0-99.0); Mean Platelet Volume 8.3 fL (9.5-13.5); Monocytes Absolute Auto 0.7 10^3/uL (0.3-0.8); Monocytes Percent Auto 5.7 % (1.7-12.0); Neutrophils Absolute Auto 7.9 10^3/uL (1.4-6.5); Neutrophils Percent Auto 64.5 % (43.0-75.0); Platelet Count 352 10^3/uL (150-450); Red Blood Count 4.35 10^6/uL (4.20-5.40); Red Cell Distribution Width 12.1 % (11.0-15.0); White Blood Count 12.2 10^3/uL (4.0-11.0)
[2023-12-08 20:55] LABS: Alanine Aminotransferase 17 U/L (14-59); Albumin Globulin Ratio 0.8; Albumin Level 2.9 g/dL (3.4-5.0); Alkaline Phosphatase 74 U/L (46-116); Anion Gap 10.6; Aspartate Amino Transferase 11 U/L (15-37); Bilirubin Total 0.4 mg/dL (0.2-1.0); Carbon Dioxide 28.3 mmol/L (21.0-32.0); Chloride 103 mmol/L (98-107); Estimated GFR (African America >60 (>=60); Estimated GFR (Non-African Ame >60 (>=60); Globulin 3.6 g/dL; Glucose 117 mg/dL (74-106); Potassium 3.9 mmol/L (3.5-5.1); Sodium 138 mmol/L (136-145); Total Protein 6.5 g/dL (6.4-8.2)
[2023-12-08 21:00] LABS: Lactate/Lactic Acid 1.5 mmol/L (0.4-2.0)
[2023-12-08 21:25] VITALS: BP 117/78; PULSE 96; O2SAT 96
--- NOTE | 2023-12-08 22:30 | CT_ITS ---
The [address] [address] Patient Name: NAYA ARRIAGA MRN: [id number] date: 1975 Sex: F Assigned Patient Location: ER Current Patient Location: ER Accession/Order Number: [id number] Exam Date: 12/08/2023 22:41 Report Date: 12/08/2023 23:06 At the request of: SAM WATTS Procedure: CT abdomen pelvis wo con EXAM: CT abdomen pelvis wo con HISTORY: biliary colic COMPARISON: None. TECHNIQUE: Unenhanced CT imaging of the abdomen and pelvis. This CT exam was performed using one or more of the following dose reduction techniques: Automated exposure control, adjustment of the mA and/or KV according to patient size, or use of iterative reconstruction technique. Unless otherwise stated, incidental findings do not require dedicated follow-up imaging. FINDINGS: The lung bases are clear. The heart size is normal. The liver, spleen, pancreas, adrenal glands, and kidneys have a normal noncontrast enhanced appearance. The gallbladder is distended. There are gallstones in the lumen of the gallbladder. There are postoperative changes in the stomach from prior gastric bypass. There is no bowel obstruction. The bladder is distended and normal. The bones are intact without acute abnormality. CT/CT abdomen pelvis wo con IMPRESSION: No acute abnormality. Electronically authenticated by: MORRIS CORONA Date: 12/08/2023 23:06
[2023-12-08] MEDS: FENTANYL CITRATE/PF 100 MCG/2 ML VIAL IV (22:47)
[2023-12-08 23:19] VITALS: BP 120/79; PULSE 79; O2SAT 96
--- NOTE | 2023-12-08 23:49 | ED_ITS ---
HPI HPI - General Adult General Chief complaint: Nausea/Vomiting/Diarrhea Stated complaint: FLANK/BACK PAIN, IN MONDAY W/ GALLSTONES, N/V Time Seen by Provider: 12/08/23 20:01 History of Present Illness HPI narrative: known gallstones. Has upcoming appointment next week with gen.surgery. Presents complaining of pain RUQ thru to her back. Same pain as before. Did vomit before coming in. States she took zofran but vomited it up. No fever. No dyspnea. Past history of gastric bypass 2017 Related Data Home Medications ?Medication ?Instructions ?Recorded ?Confirmed acetaminophen 650 mg 650 mg PO Q12H PRN pain 02/13/23 12/08/23 tablet,extended release (Tylenol Arthritis Pain) aripiprazole 400 mg suspension, 400 mg IM Q28D 02/13/23 12/08/23 extended rel.intramuscular syringe ([address]) buspirone 30 mg tablet 30 mg PO BID 02/13/23 12/08/23 lumateperone 10.5 mg capsule 10.5 mg PO DAILY 02/13/23 12/08/23 (Caplyta) tramadol 50 mg tablet 50 mg PO BID PRN pain 02/13/23 12/08/23 trazodone 300 mg tablet 300 mg PO DAILY PRN sleep 02/13/23 12/08/23 venlafaxine 100 mg tablet 300 mg PO DAILY 02/13/23 12/08/23 zolpidem 5 mg tablet (Ambien) 5 mg PO BEDTIME PRN sleep 02/13/23 12/08/23 tizanidine 4 mg tablet 4 mg PO BEDTIME 04/18/23 12/08/23 acarbose 25 mg tablet 25 mg PO DAILY 08/01/23 12/08/23 cholecalciferol (vitamin D3) 250 10,000 unit PO DAILY 08/01/23 12/08/23 mcg (10,000 unit) capsule hydroxyzine pamoate 25 mg capsule 25 mg PO DAILY 08/01/23 12/08/23 lamotrigine 150 mg tablet 300 mg PO DAILY 12/03/23 12/08/23 ondansetron HCl 4 mg tablet 4 mg PO Q6H PRN nausea and vomiting 12/08/23 12/08/23 Allergies Allergy/AdvReac Type Severity Reaction Status Date / Time erythromycin base Allergy Unknown Verified 12/08/23 20:00 [From E-Mycin] Penicillins Allergy Unknown Verified 12/08/23 20:00 shellfish derived Allergy Unknown Verified 12/08/23 20:00 Sulfa (Sulfonamide Allergy Unknown Verified 12/08/23 20:00 Antibiotics) codeine Allergy Verified 12/08/23 20:00 Opioid HPI Opioid Management Most Recent Opioid Data: Last Pain Scale 8 12/08/23 22:47 Review of Systems ROS Status of ROS 10 or more systems reviewed and unremark able except as noted in history and below [facility] Medical History Surgical History S/P endometrial ablation ?Z98.890 - Other specified postprocedural states (ICD-10) S/P right knee arthroscopy ?Z98.890 - Other specified postprocedural states (ICD-10) H/O gastric bypass ?Z98.84 - Bariatric surgery status (ICD-10) S/P tonsillectomy ?Z90.89 - Acquired absence of other organs (ICD-10) Social History Smoking status: Never smoker Exam Constitutional Vital Signs, click to edit/add: Last Vital Signs Temp 98.1 F 12/08/23 20:00 Pulse 79 12/08/23 23:19 Resp 18 12/08/23 23:19 BP 120/79 12/08/23 23:19 Pulse Ox 96 12/08/23 23:19 O2 Del Method Room Air 12/08/23 20:00 Common normals: no apparent distress, average body habitus (morbidly obese), oriented x3, no limitations, healthy appearing, alert and well nourished [facility] Common normals: normocephalic and head/scalp atraumatic Respiratory Common normals: normal respiratory effort, no retractions, no use of accessory muscles and clear to auscultation bilaterally Cardio Common normals: regular rate, regular rhythm, S1 normal heart sound and S2 normal heart sound GI Common normals: Normal to inspection, nondistended, normoactive bowel sounds present Other: mild RUQ tenderness. No guarding Extremity Common normals: normal to inspection and full ROM Neuro Common normals: oriented x3, CN's II-XII intact bilaterally, moves all extremities and no focal motor deficits Psych Appearance: grossly normal Course Vital Signs Vital signs: Vital Signs Temperature 98.1 F 12/08/23 20:00 Pulse Rate 88 12/08/23 20:00 Respiratory Rate 18 12/08/23 20:00 Blood Pressure 137/74 12/08/23 20:00 Pulse Oximetry 93 L 12/08/23 20:00 Oxygen Delivery Method Room Air 12/08/23 20:00 Temperature 98.1 F 12/08/23 20:00 Pulse Rate 79 12/08/23 23:19 Respiratory Rate 18 12/08/23 23:19 Blood Pressure 120/79 12/08/23 23:19 Pulse Oximetry 96 12/08/23 23:19 Oxygen Delivery Method Room Air 12/08/23 20:00 Medical Decision Making MDM Narrative Medical decision making narrative: presents complaining of pain from her gallbladder. Emesis x 1. labs without evidence of obstruction. Patient medicated for pain but afterwards stated the pain was starting to return. Patient medicated again and then CT ordered. Patient re evaluated and pain is less. Will discharge home and have her follow up with her surgeon as planned Lab Data Labs: Lab Results 12/08/23 Range/Units 20:24 WBC 12.2 H (4.0-11.0) 10^3/uL RBC 4.35 (4.20-5.40) 10^6/uL Hgb 13.0 (12.0-16.0) g/dL Hct 40.1 (36.0-48.0) % MCV 92.2 (81.0-99.0) fL MCH 29.9 (26.7-34.0) pg MCHC 32.4 (29.9-35.2) g/dL RDW 12.1 (11.0-15.0) % Plt Count 352 (150-450) 10^3/uL MPV 8.3 L (9.5-13.5) fL Neut % (Auto) 64.5 (43.0-75.0) % Lymph % (Auto) 26.4 (20.5-60.0) % Bucks % (Auto) 5.7 (1.7-12.0) % Eos % (Auto) 2.7 (0.9-7.0) % Baso % (Auto) 0.2 (0.2-2.0) % Neut # (Auto) 7.9 H (1.4-6.5) 10^3/uL Lymph # (Auto) 3.2 (1.2-3.8) 10^3/uL Bucks # (Auto) 0.7 (0.3-0.8) 10^3/uL Eos # (Auto) 0.3 (0.0-0.7) 10^3/uL Baso # (Auto) 0.0 (0.0-0.1) 10^3/uL Abs Immat Gran (auto) 0.06 H (0.00-0.03) 10^3/uL Imm/Tot Granulo (auto) 0.5 (0.0-0.5) % Sodium 138 (136-145) mmol/L Potassium 3.9 (3.5-5.1) mmol/L Chloride 103 (98-107) mmol/L Carbon Dioxide 28.3 (21.0-32.0) mmol/L Anion Gap 10.6 BUN 12.0 (7.0-18.0) mg/dL Creatinine 0.92 (0.55-1.02) mg/dL Est GFR ( Amer) >60 (>=60) Est GFR (Non-Af Amer) >60 (>=60) BUN/Creatinine Ratio 13.0 Glucose 117 H (74-106) mg/dL Lactate 1.5 (0.4-2.0) mmol/L Calcium 9.0 (8.5-10.1) mg/dL Total Bilirubin 0.4 (0.2-1.0) mg/dL AST 11 L (15-37) U/L ALT 17 (14-59) U/L Alkaline Phosphatase 74 (46-116) U/L Total Protein 6.5 (6.4-8.2) g/dL Albumin 2.9 L (3.4-5.0) g/dL Globulin 3.6 g/dL Albumin/Globulin Ratio 0.8 Lipase 29.0 (16.0-77.0) U/L Imaging Data Chest x-ray: Radiologist's impression: ITS Impressions Abdomen/Pelvis CT 12/08/23 22:30 IMPRESSION: No acute abnormality. Electronically authenticated by: MORRIS CARIASON Date: 12/08/2023 23:06 Discharge Plan Discharge Stand Alone Forms: Portal Instructions Chief Complaint: Nausea/Vomiting/Diarrhea Clinical Impression: Gallstones, Abdominal pain Patient Disposition: Home, Self-Care Prescriptions / Home Meds: No Action acarbose 25 mg tablet 25 mg PO DAILY hydroxyzine pamoate 25 mg capsule 25 mg PO DAILY cholecalciferol (vitamin D3) 250 mcg (10,000 unit) capsule 10,000 unit PO DAILY lamotrigine 150 mg tablet 300 mg PO DAILY Caplyta 10.5 mg capsule 10.5 mg PO DAILY buspirone 30 mg tablet 30 mg PO BID trazodone 300 mg tablet 300 mg PO DAILY PRN (Reason: sleep) venlafaxine 100 mg tablet 300 mg PO DAILY tramadol 50 mg tablet 50 mg PO BID PRN (Reason: pain) zolpidem [Ambien] 5 mg tablet 5 mg PO BEDTIME PRN (Reason: sleep) acetaminophen [Tylenol Arthritis Pain] 650 mg tablet extended release 650 mg PO Q12H PRN (Reason: pain) Abilify Maintena 400 mg suspension,extended rel syring 400 mg IM Q28D tizanidine 4 mg tablet 4 mg PO BEDTIME ondansetron HCl 4 mg tablet 4 mg PO Q6H PRN (Reason: nausea and vomiting) Print Language: Romanian Instructions: Gallstones (ED), Abdominal Pain (ED) Additional Instructions: follow up with surgery next week as planned Referrals: SHWETA BARNES [Primary Care Provider] - 1 week
== END 2023-12-09 | disposition home or self-care (01) ==
PROVIDERS: Emergency Provider Internal Medicine; PCP Physician Assistant
DX: K80.20 Calculus of gallbladder without cholecystitis without obstruction (principal); R10.9 Unspecified abdominal pain; Z98.84 Bariatric surgery status; Z79.899 Other long term (current) drug therapy; Z98.890 Other specified postprocedural states; Z90.89 Acquired absence of other organs
CPT/HCPCS: 36415; 74176; 80053; 83605; 83690; 85025; 96361; 96374; 96375; 96376; 99285

== ENCOUNTER 2023-12-13 12:35 | Outpatient (OUT) | payer MEDICAID, SELFPAY ==
--- NOTE | 2023-12-13 12:48 | P.CN_ITS ---
Consult Note: HPI Data of Consult Patient: known to practice within the last 3 years Requesting Physician: Simona Szymanski NP Primary Care Provider: SHWETA BARNES Consult Narrative Reason for consult: MBB #2 f/u Narrative: Marilee Uribe is a pleasant 47 year old female who follows for chronic low back pain and right knee pain. Pain today 6/10 ache in low back without radiation. Recent right L3-4 L4-5 TFESI providing 70% improvement ongoing. continues medications through PCP with mild benefit. continues HEP as tolerated, previously failed greater than 6 weeks of PT/HEP. cc:: CC: Simona Szymanski NP Review of Systems ROS Status of ROS 10 or more systems reviewed and unremark able except as noted in history and below Musculoskeletal Reports: back pain PFSH PFSH Medical History Surgical History S/P endometrial ablation ?Z98.890 - Other specified postprocedural states (ICD-10) S/P right knee arthroscopy ?Z98.890 - Other specified postprocedural states (ICD-10) H/O gastric bypass ?Z98.84 - Bariatric surgery status (ICD-10) S/P tonsillectomy ?Z90.89 - Acquired absence of other organs (ICD-10) Social History Smoking status: Never smoker Meds Home Medications and Allergies Home Medications ?Medication ?Instructions ?Recorded ?Confirmed ?Type acetaminophen 650 mg 650 mg PO Q12H PRN pain 02/13/23 12/08/23 History tablet,extended release (Tylenol Arthritis Pain) aripiprazole 400 mg suspension, 400 mg IM Q28D 02/13/23 12/08/23 History extended rel.intramuscular syringe (Simaliaislinn Maintena) buspirone 30 mg tablet 30 mg PO BID 02/13/23 12/08/23 History lumateperone 10.5 mg capsule 10.5 mg PO DAILY 02/13/23 12/08/23 History (Caplyta) tramadol 50 mg tablet 50 mg PO BID PRN pain 02/13/23 12/08/23 History trazodone 300 mg tablet 300 mg PO DAILY PRN sleep 02/13/23 12/08/23 History venlafaxine 100 mg tablet 300 mg PO DAILY 02/13/23 12/08/23 History zolpidem 5 mg tablet (Ambien) 5 mg PO BEDTIME PRN sleep 02/13/23 12/08/23 History tizanidine 4 mg tablet 4 mg PO BEDTIME 04/18/23 12/08/23 History acarbose 25 mg tablet 25 mg PO DAILY 08/01/23 12/08/23 History cholecalciferol (vitamin D3) 250 10,000 unit PO DAILY 08/01/23 12/08/23 History mcg (10,000 unit) capsule hydroxyzine pamoate 25 mg capsule 25 mg PO DAILY 08/01/23 12/08/23 History lamotrigine 150 mg tablet 300 mg PO DAILY 12/03/23 12/08/23 History ondansetron HCl 4 mg tablet 4 mg PO Q6H PRN nausea and vomiting 12/08/23 12/08/23 History Allergies Allergy/AdvReac Type Severity Reaction Status Date / Time erythromycin base Allergy Unknown Verified 12/08/23 20:00 [From E-Mycin] Penicillins Allergy Unknown Verified 12/08/23 20:00 shellfish derived Allergy Unknown Verified 12/08/23 20:00 Sulfa (Sulfonamide Allergy Unknown Verified 12/08/23 20:00 Antibiotics) codeine Allergy Verified 12/08/23 20:00 Exam Constitutional Documenting provider has reviewed patient's vital signs: yes Common normals: no apparent distress, oriented x3, healthy appearing, alert and well nourished General appearance: cooperative Nutritional appearance: obese HENMT Common normals: normocephalic, hearing grossly normal bilaterally and moist oral mucous membranes Head and scalp: normocephalic Eye Common normals: PERRL Pupil: PERRL Neck & C-Spine Common normals: full ROM General: normal visual inspection Chest Common normals: inspection of chest normal Respiratory Common normals: normal respiratory effort, no retractions and no use of accessory muscles Back & Pelvis Common normals: thoracic and lumbar spine normal to inspection Lumbar spine/lower back: ROM limited, pain with ROM, lumbar spinal tenderness and straight leg raise negative bilaterally Other: positive bilateral facet loading no radiculopathy unable to adequately assess SIJ due to patients size Extremity Common normals: normal to inspection and full ROM Right lower extremity: knee joint Other: edema, enlarged diameter, pain with medial and lateral stress testing Neuro Common normals: oriented x3, CN's II-XII intact bilaterally, moves all extremities, no focal motor deficits, no sensory deficits noted, deep tendon reflexes 2+ bilaterally and gait normal Sensorium/orientation: alert Motor exam: strength 5/5 throughout and no movement abnormalities noted Psych Common normals: mental status grossly normal, thought process normal, cooperative, affect normal, speech normal and activity/motor behavior normal Speech: normal speech Thought process: normal thought process Results Additional Findings Additional findings: If on a controlled substance or opioids, I have checked an [place] report on this patient and there are no aberrancies noted in the prescribing history.??If on a controlled substance or opioid a drug screen was completed and reviewed within the last year, and if there has not been a drug screen completed we ordered one today to monitor higher risk, state monitored pain medication use. As part of providing excellent, safe, comprehensive care, the following was completed at our patient's visit: 1. A medication reconciliation and review to ensure accurate knowledge of current/active medications, including asking our patients to inform us about any [id number] medications or herbal remedies/nutritional supplements/alternative remedies. 2. A review to specifically ensure our patients have had annual screening for screening for depression, screening for tobacco use, and screening for unhealthy alcohol use. For concerning screenings had a discussion with the patient, provided patient education, and recommended follow-up with primary care provider when appropriate. If patient noted with a risk of falling, they received education on strength, gait, and balance training to prevent future risk of falling. Assessment and Plan Assessment and Plan (1) Lumbar radiculopathy: (2) Lumbar spondylosis: (3) Lumbago: (4) Osteoarthritis of right knee: (5) Muscle spasm: Plan continue HEP as tolerated continue medications through PCP f/u 1 month, consider repeat bilateral L3-4 L4-5 RFAs
== END 2023-12-13 12:36 | disposition home or self-care (01) ==
LOC: PM 12:35
PROVIDERS: PCP Physician Assistant; Visit Provider Nurse Practitioner
DX: M54.16 Radiculopathy, lumbar region (principal); M47.816 Spondylosis without myelopathy or radiculopathy, lumbar region; M54.50 Low back pain, unspecified; M17.11 Unilateral primary osteoarthritis, right knee; M62.838 Other muscle spasm
CPT/HCPCS: G0463

== ENCOUNTER 2023-12-22 11:16 | Outpatient (OUT) | payer MEDICAID, SELFPAY ==
--- NOTE | 2023-12-22 11:20 | US_ITS ---
The [address] [address] Patient Name: NAYA ARRIAGA MRN: [id number] date: 1975 Sex: F Assigned Patient Location: [place] Current Patient Location: [place] Accession/Order Number: [id number] Exam Date: 12/22/2023 11:25 Report Date: 12/22/2023 12:39 At the request of: MATTHEW BANGURA Procedure: US right upper quadrant EXAM: US right upper quadrant HISTORY: Right Upper Quadrant Pain R10.11 COMPARISON: 12/08/2023 TECHNIQUE: Grayscale, color and Doppler FINDINGS: The liver is normal in size, contour and echotexture measuring 17.8 cm in length. No focal hepatic mass. Hepatopedal flow in the main portal vein with a velocity 40 cm/s. The visualized pancreas is normal in appearance. The pancreas is poorly visualized The gallbladder is normal in size. The wall measures 1.6 mm, normal. Multiple echogenic foci layering dependently up to 6 mm, cholelithiasis. Negative sonographic Kinsey sign. The common bile duct measures 3.7 mm, normal. The right kidney is normal measuring 10.6 x 5.2 x 4.3 cm. No solid cortical mass or hydronephrosis US/US right upper quadrant IMPRESSION: Cholelithiasis without CT evidence of acute cholecystitis Electronically authenticated by: EM LÓPEZ Date: 12/22/2023 12:39
--- OUTSIDE RECORDS SUMMARY | 2023-12-22 11:22 | XMS_ITS | CCD ---
Author Organization [facility] Care Team Providers Care Learning Support Aide Name Role Phone FRANCOISE BARNES Unavailable Unavailable DANUTA MATA Unavailable Unavailable Gus, Ida Evans Attending Unavailable Gus, Ida Evans Attending Unavailable Gus, Ida Evans Attending Unavailable FRANCOISE BARNES Referring Unavailable MOLLY, FRANCOISE Admitting Unavailable MOLLY, FRANCOISE Primary Care Unavailable MOLLY, FRANCOISE Attending Unavailable Tyler Petersen Attending Unavailable HEMKAM, FRANCOISE Primary Care Unavailable TRENT ., SUNSHINE Admitting Unavailable TRENT ., SUNSHINE Attending Unavailable MISC, DR SLOAN Primary Care Unavailable HAMERSVILLE, DR EM Snyder Consulting Unavailable TRENT ., SUNSHINE Consulting Unavailable GRANT NAYAK Consulting Unavailable HEMMER, DR FRANCOISE Del Castillo Admitting Unavailable HEMMER, DR FRANCOISE Del Castillo Attending Unavailable MISC, DR SLOAN Primary Care Unavailable HEMMER, DR FRANCOISE Del Castillo Consulting Unavailable HEMMER, DR FRANCOISE Del Castillo Admitting Unavailable HEMMER, DR FRANCOISE Del Castillo Attending Unavailable NON STAFF Primary Care Provider UnavailMD Jamey Kapoor Attending Provider [phone] MAHIN Szymanski Attending Provider [phone] Shalini Coffey MD Primary Care Provider Derba SIERRA, Najma Jay Attending Unavailable Debra SIERRA, Andrius Pierre Attending Unavailable Debra SIERRA, Andrius Pierre Attending Unavailable Debra SIERRA, Andrius Pierre Attending Unavailable Debra SIERRA, Andrius Pierre Attending Unavailable Debra SIERRA, Andrius Jay Attending Unavailable Debra SIERRA, Najma Jay Attending Unavailable HEMFRANCOISE HUMPHREY Attending Unavailable HEMFRANCOISE HUMPHREY Attending Unavailable GERMAINE BOLIVAR Attending Unavailable HEMFRANCOISE HUMPHREY Attending Unavailable HEMFRANCOISE HUMPHREY Attending Unavailable MATTHEW BANGURA Attending Unavailable DANUTA MATA Referring Unavailable DANUTA MATA Primary Care Unavailable Simona Szymanski Admitting Unavailable NON STAFF Primary Care Unavailable Simona Szymanski Attending Unavailable Jamey Morgan Attending Unavailab Jamey Sanchez Admitting Unavailab le NON STAFF Primary Care Unavailable Allergies Allergy Classification Reported Allergen(s) Allergy Type Date of Onset Reaction(s) Facility (1 source) Cephalexin; Translations: [Keflex] Drug Allergy [facility] Repository (6 sources) Clindamycin; Translations: [clindamycin] Drug Allergy 5 [facility] Repository (7 sources) Codeine; Translations: [codeine] Drug Allergy 5 [facility] Repository (1 source) NSAIDs; Translations: [NSAIDs] Propensity to adverse reactions (disorder) [facility] Repository (5 sources) Penicillins; Translations: [penicillins] Propensity to adverse reactions (disorder) 5 [facility] Repository (1 source) Sulfonamides (Antibiotic); Translations: [sulfa drugs] Propensity to adverse reactions (disorder) [facility] Repository (1 source) alot of ATB's, I dont know names; Translations: [alot of ATB's, I dont know names] Propensity to adverse reactions (disorder) [facility] Repository (1 source) Penicillin Drug Allergy [facility] Repository (1 source) Sulfonamides (Antibiotic) Drug allergy (disorder) [facility] Repository (4 sources) Sulfonamides (Antibiotic); Translations: [SULFA (SULFONAMIDE ANTIBIOTICS)] Allergy to substance 5 [facility] (4 sources) erythromycin base; Translations: [ERYTHROMYCIN BASE] Allergy to substance 7 [facility] (2 sources) Bacitracin / Polymyxin B; Translations: [BACITRACIN-POLYM YXIN B] Drug Allergy 3 [facility] Work Phone: (2 sources) Ciprofloxacin; Translations: [CIPROFLOXACIN] Drug Allergy 5 [facility] (2 sources) Erythromycin; Translations: [ERYTHROMYCIN] Drug Allergy 5 Hives [facility] (1 source) Penicillin G Drug Allergy 3 [facility] (1 source) Sulfonamides (Antibiotic) Drug Allergy 5 [facility] (2 sources) Soap; Translations: [SOAP] Allergy to substance 7 Swelling [facility] (1 source) Grass pollen; Translations: [GRASS POLLEN] Propensity to adverse reactions to drug (disorder) 5 [facility] Repository (1 source) SHELLF[employer] CONTAINING PRODUCTS; Translations: [SHELLFISH CONTAINING PRODUCTS] Propensity to adverse reactions to food (disorder) 5 [facility] Repository Medications Current Medications Medication Drug Class(es) Dates Sig (Normalized) Sig (Original) acarbose 25 mg oral tablet (1 source) alpha-Glucosidase Inhibitor Start: 04-25-2023 acarbose (Precose) 25 MG tablet Take 1 tablet by mouth in the morning and 1 tablet at noon and 1 tablet in the evening. Take with meals. 0 04/25/2023 Active [id number] 200 actuat albuterol 0.09 mg/actuat metered dose [...] mg by intramuscular injection every month Aripiprazole (Abiliaislinn Maintena) 400 mg Suspension,Extend ed Rel Syring Active 400 MG IM every month May 07, 2018 11:00pm busPIRone hydrochloride 30 mg oral tablet (3 sources) Start: 05-16-2017 take 30 mg by mouth twice daily Buspirone Active 30 MG PO Twice daily May 15, 2017 11:00pm take 1 tablet by alya th every twelve hours busPIRone (Buspar) 30 MG tablet Take 30 mg by mouth every 12 (twelve) hours. 0 Active cholecalciferol 0.25 mg oral capsule (1 source) Vitamin D Start: 02-06-2023 take 1 capsule by mouth once daily cholecalciferol (Vitamin D-3) 250 MCG (62310 UT) capsule Indications: Vitamin D deficiency Take 1 capsule (250 mcg) by mouth 1 (one) time each day at the same time. 90 capsule 3 02/06/2023 Active Continuous Blood Gluc Pit Boss (FreeStyle Samreen 2 [place]) device (1 source) Start: 02-23-2023 Continuous Blood Gluc Pit Boss (FreeStyle Samreen 2 [place]) device USE DIRECTED 0 02/23/2023 Active Continuous [...] Start: 08-15-2017 take 2 tablets by mo [facility] once daily Multivit With Min-Folic Acid [...] (1 source) Polyene Antifungal nystatin (Mycostatin ) 581943 UNIT/GM powder Apply 1 application topically in [...] 08, 2018 2:03pm [facility] hours as needed for nausea [...] Classification Problem Date Documented Da te Episodic/Chronic Abdominal pain (2 sources) Right upper quadrant pain; Translations: [Abdominal pain] Onset: 2023 Episodic Anxiety disorders (1 source) Anxiety; Translations: [Anxiety [...] excess calories] Onset: 02-12-2017 04-26-2023 Chronic Other nutritional; endocrine; and metabolic disorders (1 source) Morbid (severe) obesity due to excess calories; Translations: [Morbid (severe) obesity due to excess calories] Onset: 2023 Chronic Other nutritional; endocrine; and metabolic disorders (1 source) Body mass index (BMI) 60.0-69.9, adult; Translations: [Body mass index (BMI) 60.0-69.9, adult] Onset: 2023 Chronic Other upper respiratory disease (1 source) Allergic rhinitis; Translations: [Allergic rhinitis, unspecified] Onset: 01-23-2023 01-23-2023 Chronic Residual codes; unclassified (1 source) Sleep apnea; Translations: [Sleep apnea, unspecified] Onset: 01-23-2023 01-23-2023 Chronic Unclassified (1 source) Auditory hallucinations; Translations: [Auditory [...] Translations: [Edema, unspecified] Onset: 01-23-2023 01-23-2023 Episodic Spondylosis; intervertebral disc disorders; other back problems (2 sources) Low back pain; Translations: [Low back pain, unspecified] Onset: 01-23-2023 01-23-2023 Episodic Viral infection (1 source) Plantar wart of left foot; Translations: [Plantar wart] Onset: 01-23-2023 01-23-2023 Episodic Results Test Name Value Interpretation Reference Range Facility MR lumbar spine wo rafa MR lumbar spine wo con [facility] [place] [address] [place] [address] MRI Report Signed Patient: Marilee Arriaga MR#: [id number] : 1975 Acct:[id number] Age/Sex: 47 / F ADM Date: 09/19/23 Loc: MR Room: Type: [facility] Attending Dr: Simona STOCKTON Copies [...] Beckford Jr., D.O.09/19/2023 2:27 PM Dictation Location: [place] [address] Transcribed By: [facility] 09/19/23 1427 Dictated By: Linden Beckford Jr, DO 09/19/23 1412 Signed By: 09/19/23 1427 Normal [facility] XR pre/post mri xrayon 09-19 XR pre/post mri xray [facility] [place] [address] [place] [address] XRay Report Signed Patient: Marilee Arriaga MR#: [id number] : 1975 Acct:[id number] Age/Sex: 47 / F ADM Date: 09/19/23 Loc: MR Room: Type: [facility] Attending Dr: Simona STOCKTON Copies [...] Beckford Jr., D.OArianna09/19/2023 3:08 PM Dictation Location: [place] [address] Transcribed By: [facility] 09/19/23 1508 Dictated By: Linden Beckford Jr, DO 09/19/23 1507 Signed By: 09/19/23 1508 Normal [facility] ECHOCARDIO M/2D COMPLETEon 0 11-07-2022 ECHOCARDIO M/2D COMPLETE Patient: MARILEE ARRIAGA Exam Date: 11/07/2022 : 1975 Gender:F Ordering : DR FRANCOISE MARTINEZ Admission #: [id number] Family : Order #: [id number] CLICK HERE TO VIEW EXAM ECHOCARDIOGRAM REPORT [...] Shay Masters M.D. on 11/07/2022 at 19:16 [facility] Coding Summary.on 05-04-2022 Coding Summary. CD:[id number] Gh0bWw+PGh lYWQ+XD7YWIDhW35nnBRohT2NP5jWF Z8VKFQBZZZAUB8UJD0zjTU7GAcuR3G ybiAv TuowlHHhND90YYm1LXQ2nFilOWjclO 5geXCuO6t4TkKqZG09fU40ZXwnAVSq OyN4YlSmhlkklZZf T2diSjOttDJgXho+PHRhYmxlIHdpZH ZtDSkdPWHsScFyzYuxFU4yXe2dRVFm LWNvbGxhcHNlOiBj f2hfXSOlHBhuXD8tgQvvF6LybVP1MA Ejc1y9Kx07iIY+ZGOeNUM9pVqiEQki q064DeYku5fvLRN8 rXGdMFqvFTJ0U75yv1C8TLIkTZSqUP J5iIW7pY8hrGjdbfhhS3UuuTLcJmR8 XGK8jFBdaI0scGhi evcayD5jGsm+S98UVY4ELARGKN9PLk g9D4YwHpgsrXM+QD88XLToBS43tRMz zIJzo6qzkJz4DiHn ZYDxVRK4oGtfFWxce2XfJHLzD86xhV Ahs6G5ZCGzuNgszAXbCkPfhEP7jF1x MUmmmykyt1jsssej Cbuba0tbuh75xH74M75tDKdyYKRvGF D5YVKkVLZnsIdnqs0icC9oQn9+IDxj z8oho2kzxPi1JgNh BJTmkfOhaWfuHOO4e2IuMb95G6SbaN ltn6ZiDoj3pn68rCOll5I1jGP7VWpa KPQvxX0eGIgtSdZ4 OTHoImPwjF46uYXrSArjQf5uzSdnkC meAZ1oHHQlpfacWLAwtU6fBJFwqIZh tEpzJM2yFLAbqhdz l986OgYpYMR2IUIlrYGvQ1TquY0yGy MuKVZeVTGjD9NxrHMkNUjfC717GDua PfU6OLZtinYiE7Gc NYEchParZeV6i8U9Mt3Gh5LscuulMY J5RSjmTKZ4CrR7QbQcHqW8D1JwChi4 JOAewFnyAN3lS2Qe EORxlpwdjxyvaMJ2BRUiZRRpcE04lF ZbGUrrNz5gz4W9e392RFJeGRRjjO26 Cn9baMzoXVIjtZPE uY1gaqksm8hohlsxLkScBOSeRIo4ZI q5VMDwuYlyXvXtIES6BcI7VLY7mGGt hG8foCxqrqdiqY2l Oyc+C24cnR9nQKM7NHW6cvbhTRCggl GmCX77ZJ95C0ZaScuelYIwoHS+PGRp ojFrpAyaKJ6uDsFv m7amk6VwDQxpL0RoPWGhZXdzHqj0LK PsTLR3gVN4uO1sKNSlUVmou6G9hJF6 D3UlmsRyme2dc1eh BCOmTImoA92bmOKig3Y9SFDtdLX3NI NpyBcjOgNbjT72Bgs+ICReoJjtk5Dj Dhioh5coi8urzYe4 QiUdRFKhjvIgtOfxNYZ4p5AtJg98O8 3vQKwbSDKsJBPuSVFzJPGnlEzjvc4k pF5dQi6+PGNvbCB3 zTW0tY2lZDJzFsD4IRmlB789XvWxzV UgYkity3nly6gmaBk9HjJuJBSlnrAm dYyaYGZ1i5IgNz49 G36iZBpyNHNcGSUzKCIzVMApeYtlsn 5iaJ6dEd7+CW2vm9crki64yW13mCM+ OJZcVMZ1hLweJXjg TUHqhA8uQCtrXhZ9YSVlGaEvwT34uL QdYMwgHp3gtJacwQvqOQ3pIIRtuosm d222WhApt6kdTJVx qLMeBYetLZD8K86vd6U0BLHwTTPrRD O0wTN0nR3gxAhyyhstzFXbjRodusYd eXzeCYnaMJugY953 QQDcpLuvHrRpuDszdlOkDpWvMJu5M9 UwLhz3OZGljHiaIM9idKSdWEwxKp4i dPvrsPeiVL3qJSSp xprkj151LgIzb4qkJCUfvFQyGAzkPD P5M37kv8U4JRTfAPBiTEO1jLI6sQ0l bGlnbjogbGVmdDsg rdYkcBhdLUgvBOggN800FFRddLefWx TfhnDyFUYcoLR9IQ99NY13lBXlv4G0 zSB2H7VqRSChffwq vngvqAS3AOBhBQWglY72Ie2yxPszKn 1cGNCpSHW7IYJjbWCmH6PawV8yJaZs TABjHUAaT4OhkCIf ZHzlP144GZjgGjU9YPAspwAjF5XjAF OzbDgpEdG7t5F4Mk9HE3U1QO85ZE43 mWWmx9U3tIP0Z4Fh GCWebdstwodcmRV7VITlXPBdmN75Nz 2qpAjjJq2xGFIaXTM4SEOqzCBgI7Rt nU5yByGiDOMhVOHm I9KpeIXpXCnmO379YUyePzB7SXKwjj KpU0MsZISinNeoClC5s3W7Ib0USTy9 AJ64VO08fWNao3A3 qZH2M2IrMZBctlscxbrihRR4GBAgWA DmvD71Wr0ipBcjBj5cZXXvVVI8KDQh dILfA6NuiQ8kWxJb CJXbDBZxG8KpeMZyELpcE826JGjoVs H5ZBQopgEuG2RtDHFuuXuvOyW7t3D9 Sh0EMKOhQD57ZRF8 qIH3YV46VD13D9IgWpymwOGwzKW+PH RhYmxlIHdpZHRoPScxMDAlJyBzdHls SP1lVl2gKLUhXEKm mEgdqRUtCfRhh6qwDZUaGTvwKY2zcL zsQ1GyxFV2VGWic9n4Tm41X03cA6Ko dXA+OPBnePP7hRT3 nF8qDtFrAbF8LIxlM912XmOxgRXbJb jdx3jhq2htzLd0ZuY6UZRljaAbfUmx OSL0l9IvTo57Q71j NXpyTWTaWRDyTFStQFFimVrtuv1quH 9wIi8+YQUfsKF6pNW8cW5iXpLqLgE7 YDhlO120JgGgbPXm Vrnzm7ibc2xbsCk0KbWaISLgflLbxZ tiWUN4g1MmAt66A0QejEopz9PfQge7 an24kTYho5O6pSX8 K7ImAKKlgflruZOuhJabFI8wYLFxcy vtLAIhpF0vEJOeB7f5XsOlQeA8VAbd P9BxkmK8AWTqjGOr TZzpNWK4X29og3Z8TSUpFHYjMBC1bV Y7jP9joJgtvgfxpJOvlWdccyUrtLuy TMijJDwoN677BQGc mPygTJUvuL3eWRSxzAOwxKclBT3cIS MepzetCkBRPJmFCURBWK6UCZARSuPU AA22ZD55qIUnt2E9 oWG2N4AfAYWcbmhztvkzwMY9QXZdKI SqcX91yEDaYPjaXq7pc4A2v934AUHb JWEymD18Wa6xwLpp MUAgoZFSmC4uhucbg0vpwohnWgNmFM OjNAd0XFu1AEKdnFjtSjEmHEU2JiG8 XBP9zAIcnT9boWuz ucjqyL7tTps+UWEnGeXnTJe2TIligA Q+CIPnLLG6nKcxTWijTTRbrW9lSVBy A2j2BwCxMvS6KJzv A1XrVOAubchtGw86wR5rArQoTiB6CY qnD0IrtfF6UNPeyFHsGXrlBLK9T73l d0Q6SDOlVLMnTIG3 rFB3mK4paTjtwqwrbCFsoZloxoInvZ prOFyrWLawR177BXUssIirFyD8CFuh KCJcUD49EF06dBBq j1J9pEW0P0EiUHGhrtpfdvmjmEN7BY RpSVCiiT56mTYnXEooYq2cu5B0v253 ATQcXRCqzN60Aw0k nMkxULGztETJnW1crtqmk8vsawvrYe OxXFBlTPk6IQl6EFPgxCwcIfAvEAM8 CnC1EGT5mVFxjM3f tByfmznbxE7cVve+PtRkVTmkHM21YI 94aWNfi7P7nPG3Y3IvUAUtehkqbyfr vAD0QDEmYQEcpX58 gDJxQUsyZg4kz7U7j536FXUfDLKhkJ 51Rt2nzLilLFHubRMBuJ4zvkrnf1kr cjogIzAwMDAwMDt0 JVk5UBUziWauJqCfUXC5KuJ0FDX9bF LncW7vjHbouswqnA4gXwi+UmVjdXJy wM6yNP62AM25C5Rn PjwvdGFibGU+PHRhYmxlIHdpZHRoPS gdZFVqNhXjoJzvGP1hXr0aZOVeWYLa iXjhwHLsCzJqy5ts OSShVLmjLA7juEukP0NogPU6RJNxn8 b1Dg89H82rL9QefCD+QDSfpSF1pRM2 bL6pYyWnQtR4COcx R172NsOgqKIzPkhqa8cqz6pxxBo7Lg UoVXRfsyIlnJzzMTE9s3HfWf92B73n IHdpZHRoPSIyMCUi EQGcfXflvs7rnO0jOg3+XIJfmYU4wV H4wJ6mGqBbOrP7ECymL182QbCbdGKv ZlrnH26uX8HxjBA+ ICNlItk2EEBnpMegZB7mtXUjTJuyVh 1zHEY4BnUeIcMnNQdbC7OdMAUrnrbn akuzyFW4ZQFpMLEp zO49Mq0koRrqTe2eOFGjHVF4PKUtuL FsJ7XalP7wWwDjLGJfSENfI0OywVPl EMphY158SLjqMeB0 MNRnmoViJ1QePNJhaIrkRyP8x6C7Kt 1GzYeqiCUrCT4qUvHfESc6B1DyAea0 ZDFhrGsxQB4vnWNl XSbhRs6dwOtlkEehMZ0uTCXobdrob9 34NmYtp2duTZWoeDLkDUalUUS6B58q h3P0VDPhXGMeGUK5 uRT4hB7xvUzprukuuOFbwDtfiqYqyH egHJxyCAvuH052YOHxtAfjBdQHIta3 K4TqFlr6SLIvqDay PZ0tiRKpQAlpKs7weHboxMvwMZ1gPJ Wvxodem350RgAcn3ewEMMkbOJtHIes EFN1X85gi9Q4YUUu HJDqAKW9fUI9fG4moHdawtqisNTdwM syefKfjHswTGxgKAqnR039HWJnrRbk An6FFie0O5EjMxl7 SCBkaKmzKT5gdUDlOUjlNo3jxBccfO rmQA2jMLClccccc524IkUmd5qwWZZk iFAuKHrsKKM9U84r a1N1PLDwFFUpDCC5pIB6aI9pjGxbid pxxYAucUgeexOzkNzkMOirHClrK490 IHRvcDsnPlBheWVy OjwvdGQ+ZK89uw26I4LrXhqiHtx1YA ZuDIN3iSD6oO9vNPWxTGmwo4C9cUR6 D0IeiiIfiz7ld0yq YXBz (more content not included)... [facility] Consent for Treatmenton Consent for Treatment [id number]:127 [facility] Outside Records Officeon Outside Records Office [id number]:127 [facility] Physician Orderon 04-14-2022 Physician Order [id number]:127 [facility] Coding Summary.on 11-12-2021 Coding Summary. CD:[id number] Gh0bWw+PGh lYWQ+DK9CKZMeB07mnCUnrV2NR9aUS X7VEPFPRLZQYI1LDX9vlOB1ICteC5S ybiAv YqakaJJzGD88FNw4ZTV2xElcCFveuV 6rgRHvA1r5TiGfIT44sJ85NKowIGFi DeS1YpUvtmuwhRQu M7rnEuWevNVhFkj+PHRhYmxlIHdpZH QbWBqwQHKbGiDcyPdnSL5tOx5lWGEm LWNvbGxhcHNlOiBj c1piDNHaIUhqLV8afDnjE8RuiRE2GV Dyk6k5Ow79jMR+PPNnMJE1mKgdQRay q060JjYtj0nsBGA6 qFHiZTsqCEG8X93jg8B0JGCwONPhZH W0kKX4fY4pqNitwsioS3YvhNXfJiQ1 RMG0pQIkxD8iyUut ofscgP5uSao+V82WLH5RSOPFFL3DOv f3V4VgAeiheDW+XG66HJJiXH69bSPq wUGqo6qhvKg2KgCr QWGoBUM8dOgdWGtbx5DuJSHcO80btR Hxh2Q9ROIxfYzfsWXyKuGfqIY8vB2o OSsfmfarl6foeovt Ziytd6hgnr13vC93N08gSUacADReCW Z6ZJOgLOPctFokym3yzN7uWt4+IDxj q1vqy8sgkJz0ZcHg FLAlhcPreExpQGB9j9RbSe04L8PjcG ity1VaOzq4wy92iIEbd8X5oRE1SSee TVXfdG7tUNaiIxJ2 MUSpJfDoyO95kQKiHLzpIw2kvYhyaY ekXV0yTWEjcusbEGJktP0aEBFwdWIt qNkgHJ7uGEWkuzvs e577QtPcXQD9LLBvsEDcM0SknG7iTm BfVAGoJXGqG8FtiKEsRKpdG986SCyv QyT2TQLfnoAiZ9Gs TRVfgBrgOiZ0z9W8Ca0Gk5UjpgtuLV O0OIzjXUDyVeY6IjZhHqM3B9OeHgv1 HIBfpFbvDO1nY7Dx BBHhrjnedrrdlAZ8BQGfHLYhjL19fB GaFZudGn6ag5Q7o055AXKnHMYllH16 Mf9itQnfAEQpjCSO sR1skmsed5rcywjpPcBpATOgIQu8CI x5WMTgwXxoKmRqYTV6LjN5ASE0bVSf cB3maIgkvpajfE0e Oyc+P76tjW1kWHQ9UYE8ljgrGSXakd FsQJ07FB74J7JuFjzmyDEzwPM+PGRp npWwyYnbLK6aJsAn y1gbm6ZoEOsyQ8QvGDEjRHinCxn0MX TrRJV4sXQ2bF3tYHYgNCgzf8H7kYU6 L3BrcoCijq9ie7dh HLIqNItjZ60adUPti9H5HQAqjXT6DY KxrIhmRwXlcS13Viw+NJUldGvjn0Bg Lniyz7fgs2rgaCz4 GhDtPSOxiaTveMkmXJC7r7XdZu97U0 0eTHqvOGDxXNGtJXFfASWygVjuva6a tK1gXq8+PGNvbCB3 rWV9gH6gLWXzZaB6IMfgQ852NiNsvI GaQgvus3mll7ordYn0WlIeSUHuzkRs zCusHRS2u5RoOz85 B69oTJhvJYMvWFLhFDPdKBHudSfzlb 9rqR7gEd7+KU5kv1idvd17tA64xFN+ HEEdREM4zKwmWNjr RQNknE0xNDsgCaM0FFSrScSpbU49hC KeDGvbTj1xlQalxWbiJF9mCMMeumuh n098RdIjx4wmCQXg uSScNHimKRG8J72zc3Q0TBCgUBZrMQ X6sZR1cL6uxZxqdaqebGBsjRmkaoCq zKbjPQqaITqfT879 ETPkxIuqNiRrpOjqmfUaBrSpSOh0O4 OsXcy7VIFazUlsEM9ocILrKYtaQv8t zDoewAzhRI3vZREn lkzco288BfYnp7awPHRsnJObNLnsTC M8D73ac4P4DLNbQLSgVTU5oFI6iZ6d bGlnbjogbGVmdDsg jlRxoZzeTZsnYGpwV629YAXfiHeoMs WcpeYpDHZnoAK9NP58EQ75nLGhc8M2 vZX1Y5IqDJWkofdl zahqzNT9BUMpJIGgjF14Vx0dfXjgFi 8gHWYlXUP0DXOimXKjR6BngH7xHpKj XIKoEIGdS9JkdHXn QEtpL756XFnqWjW9KTBcupQjI6LnQM NuaEqaZcX0k8T6Ic4LN2C2BN35KC00 xFKsn1Z8cDC6I1Nk NFMyvfmchfgunKG2EMXkZHZjtB82Te 4ftBorTm5bSWRkIAS7DNAtdOBaR4Ge zM0mEjErMQXbLKJw S5FnnUUcMJxvO931TUisCqZ4IIOxdd XoL7IvKSRcuQqsCfO0n1T1Fv0EREl6 CR21FR77dPAol2R3 vDX0R9QyBJTbavkeehvpsCB2HMHiIA TgiH69Qw0enKrlUq9oMZGcZGZ8JOKi nGCpE9PfwA1fMuPy RRMuPDJjX5BsnEPbIYkqV446TJvhFv Q7XLHmzlJrB0OhLHCgpAtvJcQ8o0M7 Ua1NCPJfEV64MSO2 cTG4KA60SQ40T6PgBbloeWNggXP+PH RhYmxlIHdpZHRoPScxMDAlJyBzdHls KB1vEv9lLFStBAHa sOtbnTSwNaNiw0uqNKJxNNauVZ7itO zgG1CaeTI1RWMek0a1Mp05U48eY5Id dXA+EIRtqQX6vDN8 bQ4yNzDuSpU0VYdvG692SqYzuWGrXi wbt4ofc6vicZr8FlT6RUDxksIzoHbz QHF4h9VkTj18Z55f MYpaLCOyZPTpRHZrMBQrqPnnkd5qqK 9wIi8+MJIrnYC0tMN7qM9aIkBxGcU4 KVdmU196NyKvnDVu Mghmt7zan1ireNn8ZdBhZFHvgcEftG qnVFC4s7WmJp84P2JvkAymz5WyLbh8 bs85bAZue3P3qWX9 A8YmMLIngngrzRMgmEmxIR1jYFPvxf kqWWIzeJ3hLGKcD3p4CfHaMgH0HMoc L6EijyC7QSRyxLQo GIyqFLZ6U00ic8A1VVLnFBBiWLC3oG X4tN1zkJdpmckirDEhjVzllkHziDli YFaoCYbbJ974OHNf iVbmQHAarR9lFCMyuQMxrWmmTX6gAK KxkmxrOtKOBQsQDKNIAO9NWBBWRdJB TJ47LA19cFQud4W8 eGH6A5JfWGPdsujmpiwnfVJ1HJMzTP SsgM34mJPyYEmeFi5vb6A1o443EFEh DAQknL46Xe5imIsz FXQzlGFLuR5eldqpj4haifjhUvOqGS RoCVa3NLv3HKBjmCcmOuTvKJW6DvQ7 ESQ8yUBwwZ3ztUbx smxwcW4nQbb+YVZlJpZwJWw3AMxtgI Q+CKZmAUI1aFdkCPdnSDPoeE3lJBOh I0j5KgNhQfM6XRux G8JcSYXkogttLy14fB5sXvFnZyS2XJ ouR6TgauF8HBGisTNgZBuoJZS8P02o g5Q4HFIzNPOeOPQ1 uCE7zV9yyOzinxgcxOHagVrqchBtjO fxTMobYEjpH896QPWdhBxsUhJrTUul VPNvPX03SD22pZEm v0L2gLF0V8FkMHNnrcphxndjlJC5GO YuZXYgwG87zWRwBIevPf2cp4L0k126 USPiZFDucZ88Gx1e pJksPNTnkOTPiT5hwokmh2gomxhyZd ZnTCTpKZa7NEd6RDVpmHdhJpYrFFE5 RxO1EJH1sQBqkQ3y zZtyorwbuG8dNir+VjPcGUdlIH19OQ 63bCTas5H5xQR3U9YaWTYrvaccuggg rYQ1XESjMFPaiT82 wAHpZMkaSy8gv7R0k638LVQlIOLphO 08Tx8zxSrdTQXntJMGjI6bmdool5jm cjogIzAwMDAwMDt0 KUs5LRJlvTtvVaAtBLA7LbR8RQS9yV UfpH8vsCacktntfZ2kRyr+ZZ9udctw qcI4LJ40EL83B9Nd PjwvdGFibGU+PHRhYmxlIHdpZHRoPS tiWTLfDsJwcDtfAG8sUm8bMNHyKANx iLuxsFZzRoUhg5bu SYKqCHfdKG4luEdpJ9QisNS2FJCtq9 e7Qg74G45lF8PnsIR+WGUugVQ5nJC6 oH6lQoKlNwE9JAzv V962GpVepPSsCnyhn2jyv7oqwRn0Wf VlUYCtahFenZaqZZJ7e7FmPn86V69l IHdpZHRoPSIyMCUi KIYetOmekg1ciS5hRt7+QFHowPN2tQ L6gO2nGxFmVjX1SPocK734RmDzpLLr DuruE34nL4UnfYK+ YAGmQoq9WGKlqCagEC6zdAUnLJpwSk 4lVXP6JjJeXuIhAKbbL5JvMPKqirzm yqhmuCI9DXBwHXPz sC16Pa8sxCrgYq3aRTHkLPL8OMNytU NgI6SyeE2mOwSmIIHcCAQkV3XamJIj WHrnQ706SBdhMyF5 VXZtylFdX0FcMZQydGacCkM6e6Y8Mt 4YzGiipELeTV7lSuHtMMo4T4DyJwa7 VNUxrTgvZT2nyWEt SLfnNy5tuBosaByaOM4aNYFrdvixz8 31ZzGoo3tmVGLdiUBkXRkvZHK1U31g s4O3IEDtFPIzUFS2 wZE2aM8hbRzcucewiGObeVyzlfHqrM cxBGfoVHwiT637ZRVgwRipHbQGZuh9 P5TiLho1YVHedCpa OM4wvBGmUJtnWq9oqEynjLeuAR7qZU Qdequxb731LbMqs2lpQJPioRUrXRhc TSR7S17dj1H3PTHe IRVhDLW9gIA2oL2jvPyzcnzrlSIcvT ogsmOulWriHKzfEIgzW108MIYpjEqm Gs4GPpq1G8OtPak2 AOMzpOhbVH3srHJbZYcpOy3ogIjfsJ saNJ6cUNUhefjjh156AyBgp9iaTFNk rOWbJNiwBAE1M76g l5F3VPZtXEPwJZL0nGY3nU9feStczf rctDQumGikidImbCgtDFnxRXkeM846 IHRvcDsnPlBheWVy OjwvdGQ+KF98qb58W9IyNluaOwd4MN QhRKX8zHV2aR6lAOVqGGtdg4L5yBU2 Y6OhkhNrwo2db5af YXBz (more content not included)... [facility] Consent for Treatmenton 10-19 Consent for Treatment [id number]:[email or web address] [facility] Discharge Instructionson Discharge Instructions [id number]:[email or web address] [facility] ED Clinical Summaryon 2021 ED Clinical Summary [address] [address] ED Clinical Summary Person Information Name: MARILEE ARRIAGA/[facility] Age: 45 Years : 1975 Sex: Female Language: Kyrgyz PCP: FRANCOISE GAY Marital Status: Single Visit [...] 16:00:59 11/05/2021 16:00:59 11/05/2021 16:00:59 AD[address]ESS: [address] [facility] [id number] PHYS DOC NOTES: MEDICAL INFORMATION: Prescriptions Given: New Medications [facility]/pharmacy #[id number], [address] [place], [place] [id number], [phone] acetaminophen-hydrocodone (Golden Gate 325 mg-5 mg oral tablet) 1 Tablets [...] Follow up: With: Address: When: Em Mir [address] [place] [id number] Business (1) In 3 days 11/08/2021 Comments: Return to the emergency room if your pain gets worse or any new symptoms. With: Address: When: FRANCOISE PEREIRAKAM [address] [place] [id number] Business (1) In 3 days DIAGNOSIS: 1:Avulsion fracture of left ankle; 2:Sprain of left foot Normal [facility] ED Note-Physicianon 11-06-19 ED Note-Physician Basic [...] and crutches was given. Patient was given Golden Gate in the emergency room. Will discharge patient home with Golden Gate and follow-up with Ortho. The OARRS report [...] needed for pain, 10 tab(s), Refill(s) 0, [facility]/pharmacy #[id number], 158, cm, 11/05/21 13:26:00 EDT, Height/Length [...] Foot 3+ Views Left Medications Administered Given Golden Gate 5/325 Tab, 1 tab(s), Oral Disposition Plan Patient Discharge Condition Stable Discharge Disposition Discharged home Discharge Prescription List Prescriptions Golden Gate 325 mg-5 mg oral tablet, 1 tab(s), Oral, q6hr, PRN Follow-up With When Contact Information Em Adeola In 3 days 11/08/2021 EDT [address] [place] [address]- Business (1) Additional Instructions: Return to the emergency room if your pain gets worse or any new symptoms. FRANCOISEEMILE BARNES In 3 days [address] [place] [address]- Business (1) Additional Instructions: Patient Education Crutch [...] Tab, 100 mg= 1 tab(s), Oral, Daily Golden Gate 325 mg-5 mg oral tablet, 1 tab(s), Oral, q6hr, PRN ondansetron 4 mg/5 mL oral solution Prozac 20 mg Cap, 20 mg= 1 cap(s), Oral, Daily Prozac 40 mg Cap, 40 mg= 1 cap(s), Oral, Daily Qvar with Dose Counter 80 mcg/inh inhalation aerosol ranitidine 150 mg Tab, 150 mg= 1 tab(s), Oral, BID SEROquel 100 (more content not included)... Normal [facility] Comment on above: Result Comment: Elec tronically Signed By: Trinity Novoa, [email or web address]\Date and Time Signed: 11/05/21 15:39 EDT ED [...] 08/04/2001 Document Revised: 07/20/2018 Document Reviewed: 01/27/2017 [employer] Patient Education ? 2019 [employer] How to Use a Stirrup Ankle [...] the bra (more content not included)... Normal [facility] ED Patient Summaryon 022 ED Patient Summary [place] [id number] Patient Discharge Instructions Person Information Name: MARILEE ARRIAGA Age: 45 Years Arrival Date: 11/05/2021 13:19:01 Discharge Diagnosis: 1:Avulsion fracture of left ankle; 2:Sprain of left foot Primary Care Physician: FRANCOISE GAY Provider Information Primary Provider: Tyler Petersen M.D. Advanced Internal Combustion Engine Assembler:None The exam and treatment you received in the Emergency Department were for an urgent problem and are not intended as complete care. It is important that you follow up with a doctor, nurse practitioner, or physician?s assistant wrestling coach for ongoing care. If your symptoms become worse or you do not improve as expected and you are unable to reach your usual health care provider, you should return to the Emergency Department. We are available 24 hours a day. MARILEE ARRIAGA has been given the following list of patient education materials, prescriptions and follow-up instructions: Follow-up Instructions: With: Address: When: Em [address]ock[address] [place] [address] Business (1) In 3 days 11/08/2021 Comments: Return to the emergency room if your pain gets worse or any new symptoms. With: Address: When: FRANCOISE PEREIRAKAM [address] [place] [address] Business (1) In 3 days In the [...] opioids can be used to help relieve uqqrrlgi-pu-mmdvfs pain and are often prescribed following a [...] Administration (www.fd (more content not included)... Normal [facility] XR Ankle 3+ Views Lefton XR [...] Rony Barnett MD Transcribed by: KAIDEN Technologist: NO Normal [facility] XR Foot 3+ Views Lefton 10-19 XR Foot 3+ Views Left Exam Date/Time: 11/05/2021 13:50 EDT Reason for Exam: Fall Report Refer to concurrent left ankle radiograph dictation. FINAL REPORT Dictated: 11/05/2021 2:04 pm Rony Barnett MD Signed (Electronic Signature): 11/05/2021 2:04 pm Signed by: Rony Barnett MD Transcribed by: KAIDEN Technologist: Normal [facility] MRI BRAIN W WO CONTRASTon MRI [...] by:SUMANTH Garciaigned by:Margo Mendez MD02/13/18inal result Normal [facility] CNDSon 02-16-2017 CNDS HNO ID: [id number] thor: Mark Anthony (Romain) AdenugaService: General SurgeryAuthor Type: ResidentType: Discharge SummariesFiled: 02/16/2017 11:44 AMNote Text:The [place] [phone] or [phone]) [facility] O N F I D E N T I A L I N F O R M A T I O N -----[facility] DOCUMENTDISCHARGE SUMMARYPatient Name: Marilee Buckner Date: 02/13/2017Discharge Date: 02/16/2017Attending Physician: DENIZ Pfeifferrincipal Diagnosis: Morbid obesitySecondary Diagnoses:Patient Active Hospital Problem List: Obesity, Class III, BMI >= 40 (morbid obesity) ([facility]) E66.01 (02/12/2017) Morbid obesity ([facility]) (02/13/2017)Operations During Hospitalization:Laparoscopic Crystal en Y [...] as needed.Future Appointments:Future AppointmentsDate Time Provider Department [place]02/23/2017 2:30 PM [id number] LUNDBERG GENBMI GENS A/M BL03/09/2017 11:00 AM [id number], KASEY (PHD) GSPSMN GENS A/M BL03/16/2017 12:00 PM [id number] 2 GENBMI GENS A/M BLD04/06/2017 1:45 PM [id number]-DVRLXELTARENÉE LUNDBERG GENBMI GENS A/M BLD05/16/2017 10:30 AM [id number] TAM GENBMI GENS A/M BLD05/16/2017 10:30 AM [id number] TAM GENBMI GENS A/M BLDPatient will follow-up in clinic with Renée Lopez MD as scheduledabove, or sooner if the need arises.Electronically SIGNED by Licensed Independent Practitioner: Mark Anthony Jean MD [facility] Glucose POCT ([place], [place], [place] A Use Only)on 02-16-2017 Glucose mass conc 105 mg/dL High 65-100 [facility] Comment on above: Performed By: #### G LUPOC ####[facility] [place], [place] [phone] NURSING PROGon 02-16-2017 NURSING PROG HNO ID: [id number] thor: Lilibeth Ortega (Rn) Doroteo Santos: (none)Author Type: Registered NurseType: Nursing Progress NoteFiled: 02/16/2017 11:37 AMNote Text: Nursing Progress NotePatient Name: Marilee OlivierJustinN: [id number] Location: [place] [address]/FQ-[id number] Da [place] Note: Patient has been discharged [...] [facility] NURSING PROG HNO ID: [id number] thor: Lilibeth Ortega (Rn) Doroteo Santos: (none)Author Type: Registered NurseType: Nursing Progress NoteFiled: 02/16/2017 10:27 AMNote Text: Nursing Progress NotePatient Name: Marilee OlivierJeraldRN: [id number] Location: [facility]/EJ-SI1H-06 [place] Note: Doing better this am, able to take all of pills and drink theKphos, took a shower, so taking in more po, pain controlled, no emesis, nomore bloody stool, ambulating VSS, on RA, expecting to go home today,continue to monitor.This note was completed by: Lilibeth Santos RN [facility] PROGRESSon 02-16-2017 PROGRESS HNO ID: [id number] thor: Hiram (Res) BrunsService: General SurgeryAuthor Type: ResidentType: Progress NotesFiled: 02/16/2017 8:02 AMNote Text:General Surgery Progress NoteName: Marilee Tinsley SoyirMRN: [id number]: 02/16/2017SUBJECTIVESubjective: No acute events overnight. Last melenotic [...] lb) LMP 01/27/2017 SpO2 94% BMI 62.73 kg/m4Cbutzi/Output Summary (Last 24 hours) at 02/16/17 0759Last [...] with morbid obesity now POD 3 s/p ictskrzsykfxYzda-fc-X gastric bypass. Bloody bowel movements resolved with stable H/H.- Phase 2 bariatric diet- Heplock IV- Wean O2- PO pain meds, hold toradol- Will discuss resuming DVT prophylaxis- Encourage incentive spirometry and ambulation- Anticipate discharge today on home Richelle Gordon [facility] Surgery ResidentPager [phone] Normal [facility] Basic Metabolic Panlon 02-15 Anion gap 10 mmol/L Normal 9-18 [facility] Comment on above: Performed By: #### B MP, MG1, PHOS ####[place] [address] Calcium 8.1 mg/dL Low 8.5-10.5 [facility] Comment on above: Performed By: #### B MP, MG1, PHOS ####[place] [address] Chloride 104 mmol/L Normal 98-110 [facility] Comment on above: Performed By: #### B MP, MG1, PHOS ####[place] [address] CO2 27 mmol/L Normal 23-32 [facility] Comment on above: Performed By: #### B MP, MG1, PHOS ####[place] [address] Creatinine 0.78 mg/dL Normal 0.70-1.40 [facility] Comment on above: Performed By: #### B MP, MG1, PHOS ####[place] [address] eGFR (non-black) mL/min/{1.73_m2} Normal >60 [facility] Comment on above: Performed By: #### B MP, MG1, PHOS ####[place] [address] Glucose mass conc 119 mg/dL High 65-100 [facility] Comment on above: Performed By: #### B MP, MG1, PHOS ####[place] [phone] Potassium molar conc 4.2 mmol/L Normal 3.5-5.0 [facility] Comment on above: Performed By: #### B VIANCA MG1, PHOS ####[place] [phone] Sodium 141 mmol/L Normal 132-148 [facility] Comment on above: Performed By: #### B VIANCA MG1, PHOS ####[place] [phone] Urea nitrogen 15 mg/dL Normal 8-25 [facility] Comment on above: Performed By: #### B VIANCA MG1, PHOS ####[place] [phone] CBCon 02-15-2017 Erythrocyte distribution width Auto Ratio (RBC) 12.9 % Normal 11.5-15.0 [facility] Comment on above: Performed By: #### C BC ####[place] [phone] Erythrocytes (RBC) 3.63 10*6/uL Low 3.90-5.20 [facility] Comment on above: Performed By: #### C BC ####[place] [phone] Hematocrit (HCT) 33.8 % Low 36.0-46.0 [facility] Comment on above: Performed By: #### C BC ####[place] [phone] Hemoglobin mass conc (Bld) 10.9 g/dL Low 11.5-15.5 [facility] Comment on above: Performed By: #### C BC ####[place] [phone] MCH 30.0 pG Normal 26.0-34.0 [facility] Comment on above: Performed By: #### C BC ####[place] [phone] MCHC mass conc (RBC) 32.2 g/dL Normal 30.5-36.0 [facility] Comment on above: Performed By: #### C BC ####[place] [phone] MCV 93.1 fL Normal 80.0-100.0 [facility] Comment on above: Performed By: #### C BC ####[place] [phone] Platelet mean volume (PMV) 8.5 fL Low 9.0-12.7 [facility] Comment on above: Performed By: #### C BC ####[place] [phone] Platelets 368 10*3/uL Normal 150-400 [facility] Comment on above: Performed By: #### C BC ####[place] [phone] WBC (Leukocytes) 11.75 10*3/uL High 3.70-11.00 [facility] Comment on above: Performed By: #### C BC ####[place] [phone] CBC and Differentialon 02-15 Abs Baso 0.02 k/uL Normal 0.00-0.10 [facility] Comment on above: Performed By: #### C BCDIF ####[place] [phone] Abs [place] 0.97 k/uL High 0.00-0.86 [facility] Comment on above: Performed By: #### C BCDIF ####[place] [phone] Abs Neut 8.11 k/uL High 1.45-7.50 [facility] Comment on above: Performed By: #### C BCDIF ####[place] [phone] Basophils/100 WBC Auto (Bld) 0.1 % Normal [facility] Comment on above: Performed By: #### C BCDIF ####[place] [address] DTYPE Auto Diff Normal [facility] Comment on above: Performed By: #### C BCDIF ####[address] Eosinophils 0.35 10*3/uL Normal 0.00-0.45 [facility] Comment on above: Performed By: #### C BCDIF ####[place] [phone] Eosinophils/100 leukocytes 2.5 % Normal [facility] Comment on above: Performed By: #### C BCDIF ####[place] [address] Erythrocyte distribution width Auto Ratio (RBC) 13.1 % Normal 11.5-15.0 [facility] Comment on above: Performed By: #### C BCDIF ####[address] Erythrocytes (RBC) 3.51 10*6/uL Low 3.90-5.20 [facility] Comment on above: Performed By: #### C BCDIF ####[place] [address] Hematocrit (HCT) 32.6 % Low 36.0-46.0 [facility] Comment on above: Performed By: #### C BCDIF ####[address] Hemoglobin mass conc (Bld) 10.7 g/dL Low 11.5-15.5 [facility] Comment on above: Performed By: #### C BCDIF ####[place] [phone] Lymphocytes 4.35 10*3/uL High 1.00-4.00 [facility] Comment on above: Performed By: #### C BCDIF ####[place] [phone] Lymphocytes/100 leukocytes 31.5 % Normal [facility] Comment on above: Performed By: #### C BCDIF ####[place] [phone] MCH 30.5 pG Normal 26.0-34.0 [facility] Comment on above: Performed By: #### C BCDIF ####[place] [phone] MCHC mass conc (RBC) 32.8 g/dL Normal 30.5-36.0 [facility] Comment on above: Performed By: #### C BCDIF ####[place] [phone] MCV 92.9 fL Normal 80.0-100.0 [facility] Comment on above: Performed By: #### C BCDIF ####[place] [phone] Monocytes/100 leukocytes 7.0 % Normal [facility] Comment on above: Performed By: #### C BCDIF ####[place] [phone] Neutrophils/100 WBC Auto (Bld) 58.9 % Normal [facility] Comment on above: Performed By: #### C BCDIF ####[place] [phone] Platelet mean volume (PMV) 8.3 fL Low 9.0-12.7 [facility] Comment on above: Performed By: #### C BCDIF ####[place] [phone] Platelets 391 10*3/uL Normal 150-400 [facility] Comment on above: Performed By: #### C BCDIF ####[place] [phone] WBC (Leukocytes) 13.80 10*3/uL High 3.70-11.00 [facility] Comment on above: Performed By: #### C BCDIF ####[place] [phone] [place] [address] Glucose POCT ([facility], [place], [place] A Use Only)on 02-15-2017 Glucose mass conc 111 mg/dL High 65-100 [facility] Comment on above: Performed By: #### G LUPOC ####[place] [phone] [place] [address] Glucose mass conc 121 mg/dL High 65-100 [facility] Comment on above: Performed By: #### G LUPOC ####[place] [address] Glucose mass conc 99 mg/dL Normal [address] Comment on above: Performed By: #### G LUPOC ####[place] [address] Glucose mass conc 116 mg/dL High 65-[address] [place] [address] Comment on above: Performed By: #### G LUPOC ####[place] [address] Magnesiumon 02-15-2017 Magnesium 2.0 mg/dL Normal 1.7-2.6 [facility] Comment on above: Performed By: #### B MP, MG1, PHOS ####[facility] [address] NURSING PROGon 02-15-2017 NURSING PROG HNO ID: [id number] thor: Lilibeth Ortega (Rn) Racquel Santosice: (none)Author Type: Registered NurseType: Nursing Progress NoteFiled: 02/15/2017 4:15 PMNote Text: Nursing Progress NotePatient Name: Marilee OlivierHesham: [id number] Location: [place] [address]/PG-[id number]-76 Da nena Note: Dr called to inform that patient had another bloody stool itwas dark red, no change in vital signs HR has remained in 70's, on RA, noincrease in pain, patient is only taking sips of clears otherwiseunchanged , stable, lab orders again @ 1800.This note was completed by: Lilibeth Santos RN [facility] NURSING PROG HNO ID: [id number] thor: Lilibeth Ortega (Rn) Doroteo Santos: (none)Author Type: Registered NurseType: Nursing Progress NoteFiled: 02/15/2017 10:29 AMNote Text: Nursing Progress NotePatient Name: Marilee Tinsley Dillan: [id number] Location: [facility]/IV-QC2X-88 Da nena Note:Patient states she's feeling ok, just brought up some 'phlegm',( clearbubbles) no emesis, able to keep down 'bites' or sips of broth and tea,given IV phenergan, denies pain, encouraged to continue to ambulate,stable, call light in reach.This note was completed by: Lilibeth Santos RN [facility] NURSING PROG HNO ID: [id number] thor: Liliana (Jorge) Doroteo Seth: (none)Author Type: Registered NurseType: Nursing Progress NoteFiled: 02/15/2017 5:53 AMNote Text: Nursing Progress NotePatient Name: Marilee Tinsley Dillan: [id number] Location: [facility]/ZC-UV8L-63 Surgery paged [phone] Marilee Arriaga: patient had dark bloody BM. pleaseadvise. Thanks, Liliana [phone] No new ordersThis note was completed by: Liliana Seth RN [facility] PROGRESSon 02-15-2017 PROGRESS HNO ID: [id number] thor: Mark Anthony (Res) TedService: General SurgeryAuthor Type: ResidentType: Progress NotesFiled: 02/15/2017 8:25 AMNote Text:General SurgeryProgress notesAdmitted: 02/13/2017OR date: 02/13/2017 Procedure(s) and Anesthesia Type: * LAPAROSCOPIC GASTRIC RESTRICTIVE SURG W/ BYPASS AND CRYSTAL-EN-Y = 40 (morbid obesity) ([facility]) E66.01 (02/12/2017) Morbid obesity (HCC) (02/13/2017)Hold Lovenox/Toradol, recheck labs, decrease IVFPain control: [...] RNF, potential discharge tomorrowPaul MD Ted (PGY 2)[id number] 6PM weekdays and all through weekends: [id number] SNausea and emesis yesterday, improving and PO intake improvingSlept okayDark bloody BMs this AMAmbulating well OTemp (24hrs), Av.7 ?C (98 ?F), Min:36.4 ?C (97.6 ?F), Max:36.9 ?C(98.4 ?F)BP 147/78 Pulse 80 Temp 36.4 ?C (97.6 ?F) (Oral) Resp 16 Ht 154.9cm (5' 1 ) Wt (!) 150.6 kg (332 lb) LMP 01/27/2017 SpO2 99% BMI62.73 kg/g5YFIUECG: Mild distress as actively nauseated and sitting up with vomitbag, alert and oriented x 3HEENT: NC/AT, EOM's intactRESPIRATORY: Respiratory effort unlaboredCHEST-CVS: HDSABDOMEN: Soft, obese and non distended, non tender, laparoscopic incisionsCDI with glueNEURO: Grossly non-focal02/14 07 - 02/15 0659In: 3622 [PO:300; IV:3322]Out: 2180 [Urine:1850] Normal [facility] PROGRESS HNO ID: [id number] thor: Renée LopezService: General SurgeryAuthor Type: PhysicianType: [...] PO intake Decrease IVF's as PO intake improvesStreggie Lopez MD Normal [facility] Phosphoruson 02-15-2017 Phosphate 1.9 mg/dL Low 2.5-4.5 [facility] Comment on above: Performed By: #### B REGGIE COLEY, PHOHeaven ####[facility] [place], [place] [phone] Vital Signs Date Time Vital Sign Value Performing Clinician Faci lity 09-19-2023 09:41-0500 Body height 157.48 cm [facility] 09-19-2023 09:41-0500 Body weight 104.32 kg [facility] Encounters Encounter Date Encounter Type Care Provider Facility Start: 2023 End: 2023 ambulatory MATTHEW BANGURA [facility] Start: 12-12-2023 End: 12-12-2023 ambulatory GERMAINE Abundio BOLIVAR Not Available Start: 12-04-2023 End: 12-05-2023 ambulatory Najma Richardson MD Facility:[facility] Start: 11-21-2023 End: 11-21-2023 ambulatory FRANCOISE BARNES Not Available Start: 11-06-2023 ambulatory Jamey Minor acility:[facility] Start: 10-31-2023 End: 11-01-2023 ambulatory FRANCOISE Del Castillo HEMMER Not Available Start: 10-23-2023 End: 10-24-2023 ambulatory Najma Richardson MD Facility:[facility] Start: 09-25-2023 Refill Francoise Barnes PA Work Phone: [facility] Comment on above: Chronic pain of both knees Start: 09-19-2023 End: 09-19-2023 ambulatory Simona Szymanski Facility:[facility] Start: 09-19-2023 End: 09-19-2023 ambulatory NON STAFF [facility] Work Phone: Start: 09-19-2023 End: 09-19-2023 Patient encounter procedure [facility] [place] Work Phone: Start: 08-05-2023 End: 08-05-2023 ambulatory FRANCOISE Del Castillo HEMMER Not Available Start: 07-26-2023 End: 07-26-2023 ambulatory FRANCOISE M HEMMER Not Available Start: 07-17-2023 Registered [facility] Start: 06-05-2023 End: 06-06-2023 ambulatory Najma Richardson MD Facility:[facility] Start: 05-01-2023 End: 05-02-2023 ambulatory Najma Richardson MD Facility:[facility] Start: 04-03-2023 End: 04-04-2023 ambulatory Najma Richardson MD Facility:[facility] Start: 02-27-2023 End: 02-28-2023 ambulatory Najma Richardson MD Facility:[facility] Start: 02-13-2023 End: 02-14-2023 ambulatory Najma Richardson MD Facility:[facility] Start: 11-07-2022 End: 11-08-[address] FRANCOISE BARNES Facility: Start: 06-27-2022 End: 06-27-2022 ambulatory SUNSHINE NEWMAN . Facility: Start: 04-27-2022 End: 10-26-2022 ambulatory FRANCOISE BARNES Facility:[facility] Start: 04-22-[address] FRANCOISE BARNES Facil ity:H1 Start: 11-05-2021 End: 11-05-2021 Emergency department patient visit Tyler Petersen Facility:[facility] Start: 09-18-2018 Patient encounter procedure Ida Weber Facility:[id number] Start: 05-08-2018 Patient encounter procedure Ida Weber Facility:[id number] Start: 02-13-2018 End: 02-16-2018 Ambulatory FRANCOISE BARNES [facility] Start: 12-19-2017 Patient encounter procedure Ida Weber [...] for malign ant neoplasm of breast Mammogram [facility] Start: 10-25-2023 End: 10-25-2023 Patient encounter procedure 10/25/2023 1:00 PM EST Office Visit [facility] [address] [place] [address] Francoise Barnes PA [address] [facility] [address] [place] [address] [facility] Start: 12-14-2007 Screening for malign ant neoplasm of cervix [facility] Start: 1998 Screening for malign ant neoplasm of cervix Pap Smear [facility] Start: 1977 Screening for malign ant neoplasm of colon [facility] Immunizations Immunization Date Immunization Notes Care Provider Fa cili 05-30-2021 influenza, injectabl e, quadrivalent, preservative free Francoise MARTINEZ Work Phone: [facility] 05-30-2021 influenza virus vacc ine, unspecified formulation Francoise MARTINEZ Work Phone: [facility] 06-12-2020 influenza, injectabl e, quadrivalent, preservative free Francoise MARTINEZ Work Phone: [facility] 12-16-2018 tetanus toxoid, redu brina diphtheria toxoid, and acellular pertussis vaccine, adsorbed Francoise MARTINEZ Work Phone: [facility] Payers Date Payer Category Payer Self-pay [id number] 2022 Medicaid [id number] 2022 Medicaid [place] [employer] [id number] 2022-Present [address] [place] [address] [id number] 2022 Unknown 2018 Unknown [id number] 1977 Unknown [id number] 2.16.840.1.882792.3.579.2.356 1977 Unknown [id number] 2.16.840.1.797574.3.579.2.356 1977 Unknown [id number] 2.16.840.1.898742.3.579.2.356 1977 Unknown [id number] 2.16840.1.585782.3.579.2.727 1977 Unknown [id number] 2.16.840.1.080996.3.579.2.727 1977 Unknown [id number] 2.16840.1.437427.3.579.2.593 1977 Unknown [id number] 2.16840.1.019663.3.579.2.593 1977 Unknown [id number] 2.16840.1.449376.3.579.2.593 1977 Unknown [id number] 2.840.1.851493.3.579.2.196 1977 Unknown [id number] 2.840.1.392173.3.579.2.196 1977 Unknown [id number] 2.840.1.144657.3.579.2.196 1977 Unknown [id number] 2.16840.1.233252.3.579.2.196 1977 Unknown [id number] 2.840.1.609146.3.579.2.196 1977 Unknown [id number] 2.840.1.724059.3.579.2.196 1977 Unknown [id number] 2.16840.1.709978.3.579.2.196 1977 Unknown [id number] 2.16840.1.471426.3.579.2.9 1977 Unknown [id number] 2.16.840.1.538911.3.579.2.1259 1977 Unknown [id number] 2.16840.1.336168.3.579.2.1259 1977 Unknown [id number] 2.16.840.1.547442.3.579.2.1259 1977 Unknown [id number] 2.16.840.1.337666.3.579.2.1259 1977 Unknown [id number] 2.16.840.1.805784.3.579.2.1286 1959 Unknown [id number] Unknown [id number] 2.16.840.1.810086.3.579.2.531 Unknown [id number] 2.16.840.1.819673.3.579.2.531 Social History Date Type Detail Facility Tobacco smoking stat us UTIS Unknown if ever smoked [facility] Work Phone: Start: 1975 Sex Assigned At Female F [facility] Start: 09-18-2018 End: 01-23-2023 Tobacco smoking status UTIS Never smoked tobacco (finding) [facility] Start: 01-23-2023 Tobacco use and exposure Smokeless tobacco non-user [facility] Start: 07-26-2023 Alcohol intake Ex-drinker (finding) [facility] Start: 01-24-2023 End: 07-26-2023 History of Social function [facility] Start: 01-24-2023 End: 07-26-2023 Tobacco use panel [facility] Start: 04-26-2023 Alcohol Comment Caffeine intake: sod a [facility] Start: 1975 Sex Assigned At [...] into patient's pharmacy. documented in this encounter [facility] Clinical Note 06-27-2022 Note Date & Type [...] by: EM LÓPEZ Date: 2022-06-27 15:38 [facility] Progress note 06-28-2021 Note Date & Type Note Facility 06-28-2021 Note HNO ID: [id number] Author: Em Fernandez, PhD Service: ? Author Type: Psychologist Type: Progress Notes Filed: 06/28/2021 2:45 PM Note Text: Received mental health records from [facility]. Note from 05/06/21 revealed pt has [...] medical records for scanning. Em Fernandez, psychologist [facility] Evaluation note Note Date & Type Note Facility Evaluation note No assessment information availa [facility] Work Phone: Evaluation note Note Date & Type Note Facility Evaluation note Diagnosis Chronic pain of both knees documented in this encounter [facility] Healthcare Summary Purpose Family History No Family [...] section and content) DATE CREATED AUTHOR 02/14/2018 [facility] DATE CREATED AUTHOR AUTHOR'S ORGANIZ ATION 02/16/2018 [facility] DATE CREATED AUTHOR AUTHOR'S ORGANIZ ATION 10/09/2018 [facility] DATE CREATED AUTHOR AUTHOR'S ORGANIZ ATION 10/11/2021 [facility] DATE CREATED AUTHOR AUTHOR'S ORGANIZ ATION 10/28/2022 [facility] DATE CREATED AUTHOR AUTHOR'S ORGANIZ ATION 11/13/2022 [facility] DATE CREATED AUTHOR AUTHOR'S ORGANIZ ATION 2023 [facility] DATE CREATED AUTHOR AUTHOR'S ORGANIZ ATION 2023 [facility] EPIC DATE CREATED AUTHOR AUTHOR'S ORGANIZ ATION 12/15/2023 [facility] DATE CREATED AUTHOR AUTHOR'S ORGANIZ ATION 12/20/2023 [facility] Goals (unrecognized section and [...] September 19, 2023 End: September 19, 2023 Learning Support Aide Relationship Specialty Start Date End Date Shalini Coffey MD [address] [place] [address] PCP - General Family Medicine 08/05/23 Reason [...] BE BASED ON THE PRIMARY CLINICAL RECORDS. [employer] provides no warranty or guarantee of the accuracy or completeness of information in this document.
== END 2023-12-22 11:17 | disposition home or self-care (01) ==
LOC: US 11:16
PROVIDERS: PCP Physician Assistant; Visit Provider Surgery
DX: R10.11 Right upper quadrant pain (principal); K80.20 Calculus of gallbladder without cholecystitis without obstruction
CPT/HCPCS: 76705

== ENCOUNTER 2023-12-28 07:00 | Outpatient (OUT) | payer MEDICAID, SELFPAY ==
--- NOTE | 2023-12-28 07:01 | NM_ITS ---
The [address] [address] Patient Name: NAYA ARRIAGA MRN: [id number] date: 1975 Sex: F Assigned Patient Location: [place] Current [place] Location: [place] Accession/Order Number: [id number] Exam Date: 12/28/2023 07:15 Report Date: 12/28/2023 10:01 At the request of: MATTHEW BANGURA Procedure: OH hepatobiliary w pharm HIDA SCAN WITH GALLBLADDER EJECTION FRACTION HISTORY: Abdominal Pain. COMPARISON: Ultrasound 12/22/2023. METHOD: Following IV injection of 4.8 mCi of [id number], anterior imaging of the abdomen was acquired for 60 minutes. After the gallbladder was visualized the patient was given Ensure and the gallbladder ejection fraction was calculated. FINDINGS: There is satisfactory uptake of radiopharmaceutical by the liver. The gallbladder, bile duct, and bowel are seen in the expected period of time and sequence. The gallbladder ejection fraction is normal at 58%. OH/[place] hepatobiliary w pharm IMPRESSION: Normal hepatic biliary scintigraphy and gallbladder ejection fraction. Electronically authenticated by: RENATA ERNANDEZ Date: 12/28/2023 10:01
--- OUTSIDE RECORDS SUMMARY | 2023-12-28 07:02 | XMS_ITS | CCD ---
Author Organization [facility] Care Team Providers Care Manager Night Name Role Phone FRANCOISE BARNES Unavailable Unavailable [...] Unavailable MISC, DR SLOAN Primary Care Unavailable MANTUA, DR EM Snyder Consulting Unavailable TRENT ., [...] Kapoor Attending Provider MAHIN Szymanski Attending Provider [phone] Shalini Coffey MD Primary Care Provider Debra [...] (1 source) Cephalexin; Translations: [Keflex] Drug Allergy [facility] Repository (6 sources) Clindamycin; Translations: [clindamycin] Drug Allergy 5 [facility] Repository (7 sources) Codeine; Translations: [codeine] Drug Allergy 5 [facility] Repository (1 source) NSAIDs; Translations: [NSAIDs] Propensity to adverse reactions (disorder) [facility] Repository (5 sources) Penicillins; Translations: [penicillins] Propensity to adverse reactions (disorder) 5 [facility] Repository (1 source) Sulfonamides (Antibiotic); Translations: [sulfa drugs] Propensity to adverse reactions (disorder) [facility]ository (1 source) alot of ATB's, I dont know names; Translations: [alot of ATB's, I dont know names] Propensity to adverse reactions (disorder) [facility]ository (1 source) Penicillin Drug Allergy [facility] Repository (1 source) Sulfonamides (Antibiotic) Drug allergy (disorder) [facility] Repository (4 sources) Sulfonamides (Antibiotic); Translations: [SULFA (SULFONAMIDE ANTIBIOTICS)] Allergy to substance 5 [facility] (4 sources) erythromycin base; Translations: [ERYTHROMYCIN BASE] Allergy to substance 7 [facility] (2 sources) Bacitracin / Polymyxin B; Translations: [BACITRACIN-POLYM YXIN B] Drug Allergy 3 [facility] Work Phone: (2 sources) Ciprofloxacin; Translations: [CIPROFLOXACIN] Drug Allergy 5 [facility] (2 sources) Erythromycin; Translations: [ERYTHROMYCIN] Drug Allergy 5 Hives [facility] (1 source) Penicillin G Drug Allergy 3 [facility] (1 source) Sulfonamides (Antibiotic) Drug Allergy 5 [facility] (2 sources) Soap; Translations: [SOAP] Allergy to substance 7 Swelling [facility] (1 source) Grass pollen; Translations: [...] evening. Take with meals. 0 04/25/2023 Active [id number] 200 actuat albuterol 0.09 mg/actuat metered dose [...] once daily cholecalciferol (Vitamin D-3) 250 MCG (04173 UT) capsule Indications: Vitamin D deficiency Take 1 capsule (250 mcg) by mouth 1 (one) time each day at the same time. 90 capsule 3 02/06/2023 Active Continuous Blood Gluc [employer] (FreeStyle [place] 2 [place]) device (1 source) Start: 02-23-2023 Continuous Blood Gluc [employer] (FreeStyle [place] 2 [place]) device USE DIRECTED 0 02/23/2023 Active Continuous Blood Gluc Sensor (FreeStyle Samreen 2 Sensor) misc (1 source) Start: 04-22-2023 Continuous Blood Gluc Sensor (FreeStyle [place] 2 Sensor) misc Use as directed 0 [...] Start: 08-15-2017 take 2 tablets by mo [facility] once daily Multivit With Min-Folic Acid (Centrum [...] (1 source) Polyene Antifungal nystatin (Mycostatin ) 249884 UNIT/GM powder Apply 1 application topically in [...] 08, 2018 2:03pm take 1 tablet by [facility] every eight hours as needed for [...] wo rafa MR lumbar spine wo con [facility] Main [place] [address] [place] [address] MRI Report Signed Patient: Marilee Arriaga MR#: [id number] : 1975 Acct:[id number] Age/Sex: 47 / F ADM Date: 09/19/23 Loc: MR Room: Type: [facility] Attending Dr: Simona STOCKTON Copies to: [...] Beckford Jr., D.O.09/19/2023 2:27 PM Dictation Location: [place] [address] Transcribed By: [facility] 09/19/23 1427 Dictated By: Linden Beckford Jr, DO 09/19/23 1412 Signed By: 09/19/23 1427 Normal [facility] XR pre/post mri xrayon 09-19 XR pre/post mri xray [facility] Main [place] [address] [place] [address] XRay Report Signed Patient: Marilee Arriaga MR#: [id number] : 1975 Acct:[id number] Age/Sex: 47 / F ADM Date: 09/19/23 Loc: MR Room: Type: [facility] Attending Dr: Simona STOCKTON Copies to: [...] Beckford Jr., D.OArianna09/19/2023 3:08 PM Dictation Location: [place] [address] Transcribed By: [facility] 09/19/23 1508 Dictated By: Linden Beckford Jr, DO 09/19/23 1507 Signed By: 09/19/23 1508 Normal [facility] ECHOCARDIO M/2D COMPLETEon 0 11-07-2022 ECHOCARDIO M/2D COMPLETE Patient: MARILEE ARRIAGA Exam Date: 11/07/2022 : 1975 Gender:F Ordering : DR FRANCOISE MARTINEZ Admission #: [id number] Family : Order #: [id number] CLICK HERE TO VIEW EXAM ECHOCARDIOGRAM REPORT [...] Shay Masters M.D. on 11/07/2022 at 19:16 [facility] Coding Summary.on 05-04-2022 Coding Summary. CD:[id number] Gh0bWw+PGh lYWQ+TV9MWWJxT81elDGykE4YJ8cWG H8MLUHDPQYPCO3VKZ2rqFH0NZwvS2Z ybiAv RkbzkBGtZB34RCz6PZP9wCkrMZjlhL 4pwWLqD5c5DrLjGF40eH57QBspRJOt JnQ3AcMdjyrrlLAk E8ygUtOemYOiCwz+PHRhYmxlIHdpZH LcLTjlBICnKcJxxYxnHH6rBe1hYKJh LWNvbGxhcHNlOiBj t0yyVADdFYsnJO2eiPohP3EofRN3LQ Ymw1e5Wb67vYK+RXEzVPL5pUrsKWip s845WpCgy5fePVR0 xENnXMedMNE4C07fb8P4YZXwPTBfHU N8lMX7sN6ksWehxitiI8ErqPGpSyX2 SJV1wCNkfY6woZvb vkixrE7zExq+X82YNM1KRSJVUF7MJq k8Q4DdPqvfcWR+BZ35GCSqUH69nQUb dSFyd2mlfVu5VxJm JECySMD0dVsrJNqnw7EbSJQtU24dfQ Fps4D5UERzcDbtvLFcMcNosCS0sT9v SXmzmvlma5aykjrx Gdkkx3pfxn93aU81G94ePFllSBPlMN X7VERpMJCypBpoea8foU8nOb1+IDxj d7tma9qfnLe7FaJz DNOrfxGggIolKBY5n1PuCu38O6ArdR mhb7YjCpn4ri16wKMhc5N8cFO5DLhd MCExbC8oIVgpZqK5 EMEpHjVyjP28wHQkIZbuRp6ykLmiyA yhTB0vRUJxhfgwVULktN9hKEAyuODi pGohJB5yFCFnjlqn r075XsZsKMX5LKJoaUAhV5DkgD8eEj RaAMSeENMwB3VinIWeFHmsB075YRqn GiW2JKDecxKhE0Aj UVGrfUtrQnP8t6G1Km9Ja1BvvobrJD K5ADfuGZF3EjN6JuOfYmA3M7NuVfe2 QIHnxQtcMR4mB3Ft LPLvqwwsjnwgzQA6FSLdKEYgkH69aK UsXEuoXk7di4C9h185RVJyJMGlyT61 Zg2spSohUFFjmWXU eW5wsloot4ibtfbkAcMbPSLyLLx9RX w1VUDjtZzeVuQyOGM2MwJ1HCT4pHPd nQ5jjTuuowzksU4e Oyc+S69afP9nWJZ9PDO1rgmpMWGpdl CcAO53RE10S1IjRnyawMScwFC+PGRp eeXamSdaYO1mGwHi u7dpp4NrUNigK2FyIFYbFSerWbi1RM KxCAV7oXG2rQ3yBMGtFLyrx5C5aZX3 E3WdqsSqfp7rq8ni CQIcAYzrN28pvBOeh9S7NIXpuPG2HX NhpBnlHxTlaH57Qgs+KIXgeOqmo0Ue Ctctg5jzn8gbxOg8 AoDmTQTqtwUimPgeQPJ6w8XbRk68X0 7zEWkwEGRnXQUzZDWsKESsyIbani2g kW0cWd7+PGNvbCB3 aKU6yF2dJRPgAcC4AGlsR055AvHynJ MfLtbsk3voh5tpwOd0QfDrDBDjvoPf zSjzHQP6j8UgRi25 T52cMPxoHGJmFKTnPRCjNPInwOyzgo 3yjF5jOi5+NJ7dv1vyow71oC66xEH+ WTUcJTW0fWbeSMas MAYayU1lVQwxYtM8LOAjSfDogU16qT BnDJkgDg0ldXmowKxyWN4yVCLlrpxw h719EtCdj3rdQZTs aDXzXUpxXJO1N26cx5O1VVXfXWXdPI Q0zZK5kZ3dzGkcvrlumRCbeCrddmUm kYrzZBcjRNwnC819 GQObgMhzOaOubKsgnsAqPvUdHSw1B1 RrPgc9MQDomLbbUF6uyQSlTNhmDf8i fGvxbOkeGB2rMTEf nxpkh601FxAje7fwEUBxzMGyDPpfIJ K7Q63xm3Y8GUSsVYOiGAR4hDG6uW8g bGlnbjogbGVmdDsg ddRciSreNJcfSKguY465JGDepInlTg MkneLgMDWrfCR0VO63AW83tVZwr5M1 wTY8I8HsOGRysfub nnqqbJR9FUBlXMSbfD47Yf7emUncVt 2oGRQaFXC5OIGbgIZoB4XvrA8xPrNh TRDtXABkZ9HrfPLs NRkrX850YDakQeU3WALpdtRxS8GbZH YunHtxJbW1q4X8Op8HO5H4LM74SA28 zSXie9O5dHZ9P4Xe FLEbhdgyvfxyuZQ1AQObDGCahF43Gb 9hxAwmMe5sTSVsDYM6USPfpPVdX0Xf cH3hLaMcQNCaCLYw L3WlhNJjUKtbS347VPueJsV8PJRskl ZvF9MmLWMrsBunJvI6t1R5Zy7ADRv3 SD26EP54cRToo0J8 hPP4E4QsFPUglxmyedudqSV9ZXGyQB ZcfY19Hb0jyAacFa5vUTYfXOR9ZUXw nCVyI2BrzU7hJlNa KPUhKCFkG2XbtJNpVUflG071ZQzzWw X5UEEkugDsG7NdRBRtwOpzDnP2d6J8 Ch1UAECqNW72STJ2 xOD9HN28IN48C3PtAndxlYPcgCE+PH RhYmxlIHdpZHRoPScxMDAlJyBzdHls QY4sEo1vQUIaCXYe aUmdlAUuUiGsp2eeLZGhQYhyDV2axT arC8LehQH3QLHvn0s9Lp30N71hG1Ni dXA+IWNzkUJ8aXJ7 gT6iJqCgWfB5CRjpS812OpVlrVNaCy nxk7rna5pdlWn2ZyR4AQHiidRoqHso NXP8n8ApCv62G12s BVvjQGUuEMMeXSOmLIDdxFezoc2waM 9wIi8+IUHvuKL2sEL0gS0lQgDoKhI1 XSfgP504MgHwbNXh Wexsb1ykv8hcyDv6FaEzLLRpmfHokJ wvUUP7g7FeKf36P4ZzvGhvf7KyMmg1 kh79nZNte1B8kJP9 O4OpSJOiwhqpcFIcwZsnYT7wFNRljy wqEUVqqR5mQJDuS7x5ZrEwNbP4NNvg E0JtzkR6BMObxGAr URrgTJI7S65ga2Z9QKCkOANnCSA0aR X3aV4quWpmbgzplOOltWzwpwXxvIcv XLoqCDdlE177RJNb bWyeOZIywS2iEASvaUZemEgoMZ5lEZ RvweyfHoKXZEkRLAANPI8PNOPQTjPU PF40GK61lEWhs0A0 nIM9E0DfSZGzhliqapcmwNN0XNXvTM VbuL90vLSnULjxNf1zg2R2z745ODBn PSDnfD00Jh9hlDib MWRmqMRGfX1zggtzb3ltslrxJsZsWA SuUOo9EGk8ITGawRsnYlKrAHU6VuV5 QKH6gGDmzK0ffBcj zmzdwL1gVdd+PPCbYuMiSWj1NDlrpB Q+PJDgDRO6vEgqMMobWWPtyI3wBPEg P0b9NvZaAiP8KSef K8WoNRJlmshbXj10pV8iIaAdNvR4CC giC6MywyL5VDKjhQWtSXevLCR2C51r v9H1ZFRcYQKpGEJ4 fAN4mB8ieOortlsddBXdkBuizdJeyV gmWDzlUCscH626ERQvkDeoYaY0OYia DDEkYL69JN05zDNv r1B6iQW7F9OeMFBntrcslaxgeXR5PH BvWOSazW98gJCcFJqzWv6yg3T1z695 AUUyYXPlbH99Dg0b gYtsMDMnkURIpF8jkdgql3rihukySh XvCWLkNDc1AVv8HQLcdFshIwZbVSF0 MsF0PWG1aPWcjG4i tLystrkcbN3eTvm+JhCdKTpnPS10UJ 47dAQwh1M6wGG2J0NpTSPbaaedvmzn xEJ6YSWjDFEmqT08 fKTaKAbbRp8op6K4p069CUQoJMCffL 68Hi3lfLotXWFycWSFoP4qzgvme8vb cjogIzAwMDAwMDt0 PZx2LLTxwKfxIjTcTAW6StB1DYM8aR AgqP1gtZiqokynxL6rFoz+UmVjdXJy zA4oXC11AZ28W1Ep PjwvdGFibGU+PHRhYmxlIHdpZHRoPS xjBCVnLtEitYodXK1nIb6mYYLaRPZp tRvosEZnKuLsa0sn IDMmWZxyVO7ltZnrV6OatZZ7PDNih8 a5Fz69Z63iP3QqjYQ+YIOtyEI6hOQ4 fX2cZrYoSlZ2IJwg Z318CvIbcUQqIwehq8div1tbjKy5Jy AqGFHgqfRqmVnoXLI9w2GkLu93J40b IHdpZHRoPSIyMCUi NCNznGgsnj3ziD8cTl1+RVRufUO7fU D7wI9kFiGsGtE6ABjaC442BmMsvSYd YkcfD45eW1YohVV+ UMGaMhi4FUPkdBbtYN1ebXAbUMojQf 2vVJC1XqRdTmOgGLyeM4WnWBFuvdmg akpfnLE4QBQoHYWg yP86Vt6xtWbuUf1nIEUaNIE0ERTqkR IaU1LstT5yDvHpDUEbYRRyU0FsgHPk PMsnD047IKmrPnV6 MTDszgBkT5XmSMDjvNegUsW2l9J3Vk 4IjCwzpQYbWI7wWgZjIPw4T8UcUoi3 AVUbyUpoYO9knCOs VUntPy1jlMsgxAutAV7cGMNuuebpg4 38HlNlt5paCRRlqKJsAVhpSEB0E13n t0Y3BTIcASGaUYK2 wQC6dJ8fcGsfbljulUCitZeekfNufU nwDFcrDGlgI877IGFfiJkkTtBEFdo9 R8QxBid2MUOwhFzo MC5xbLAbPSvnPs6puCshhWlxVZ7vUT Xagxcun578YhFsj5pxZCOrnZDkVEfe JUM7T66wq4T6SJMv OIDtSWD6nGJ0oR1tdOnihczcsDHgjN mavuPgjCgrOCyqPNixS323HASjwEea Wq0GZvf9U8TgNhd9 ZQKndJgsZN5nyQKpQGruHa7xcAfkiM arQJ4kAGFoadvrf830ApQcs3cbYNFs eQEtIBcfAJU0W47l y5I2UUMdLXLpELM2pSC0tX5imKsccz xdsMDfkNijqoKycYshYCboWNegW522 IHRvcDsnPlBheWVy OjwvdGQ+WP44pw16E2QzHamkQri4XR IkSFF1ePF8nI5nGMPeDFakk4E3cUL6 C2EhqcCkfs0zu5wi YXBz (more content not included)... [facility] Consent for Treatmenton Consent for Treatment [id number]#[id number]:127 [facility] Outside Records Officeon Outside Records Office [id number]#[id number]:127 [facility] Physician Orderon 04-14-2022 Physician Order [id number]#[id number]:127 [facility] Coding Summary.on 11-12-2021 Coding Summary. CD:[id number] Gh0bWw+PGh lYWQ+KX1DROUjW06bbVVfaQ8ON7xKC J4QMQPXGUXCHN4RTZ3sdEO9YHakQ4V ybiAv AezqeZAfOK56YFn9PXU1uOazMTdmfI 4fmBYhV9n1UrOpTJ40oG52HCdcNQAs OhL5YxDjgvishXSl F9unJvKefXPiAzh+PHRhYmxlIHdpZH IuRLghQGBwHmSsiHynDX5wDn9yESKw LWNvbGxhcHNlOiBj s6ffPZLcOYhjGJ1iqYatN8LzaCW5GT Jvx1l2Us69cMG+DIGwONQ9qDueHDoj v101FeYnd7fqTPY8 dFLdATruTFE7B66im6Z0UVHnRMBlAG U8rAP2bO4iyYiecbaoY5IooNLcYhX4 BGX7zDUxaY1vdRmt xljlsH5fHdz+S95QNR2SWVUPKW1LQg g2V6LeDcxntTC+SN03SQKaIQ97qGNr bIVrp9taoOo0HaQr RXWtGVC6yBnlOStef3OiPQEyO61ebO Qnw9M9GUUixYqgbTEfUdBxaWQ6uP7i PJdelzsrx2outmoe Rbgfx0paqn95eO30E70cWFmvRGAkCA W2CIWpFVEbgYhkwq1nvQ5dCh3+IDxj q0wzt4opxOq2WsYy IGOewhTfyIjaGLD6g1UbPi88N4IxvJ wzj3NjEum5ay20uASjc8B3hVV8CHxq YZEztR1jSCqaYkK5 YZWcShYxrM55iMBkTQmfXu9pmGapiB agJO2zJOZcydasTEIoaF2uDEGygJWw wEoqAO3eRNTtaszm r696QpIlGDZ0OXXazJKzZ6DviV2yHz RsUPNzXEMfL6UefVEaZNhgU511OSru XvF3TXYsdlZgV4Ii OORlvTxhXeD8o6Q8Tw7Sx1WmoyulAS E1SWszIIZzGaN9WsUqCvK0C6WkOin9 SUYccVfmQG0wI1Kc ETDtumyogyiinMC6ZUEsMNEoiR07oO EiITjtBs8pl2C7h157EYTuHSLtnX28 Kf3biYzoSYIicAKM pP7hyzcxd3mxazdkXdIpRGMlXNy2MO m8KLDcpYxvNyEiHUW9VoH3CHZ4jZCm zC8uvUjcubstiM7n Oyc+P17guX5tRYL3VKB2dkhwWMTzkc QoMW10KP65J3SuElimcVRtoQY+PGRp txTcyKdfTL8eJiLa a9mgm9ZpYGolD1KpZDSfYJgcLmh9DK IvDIH1kNG8iJ6bYGDrDDfih0Y5qTI2 D1ZijbTypx5zh8tz TWQvFXzuQ13vnJSuc1E4JRLpwGS8KT SldYlqMmErfH50Aki+OXYbmXqgn5Au Cgdub6ygv9rcrJh9 GkHkUOZlemQzjAwnGEB1e4LyIy50B0 1uZJvnWBAkBIQfDJSpPQAjlTjhik4j aD6iDf0+PGNvbCB3 iXC1gP6yDPHxEjN7JMeeG097RjPxbJ XhHxepn8dgu7ndgUq4ZnMmLPMglzUi zEgnBVL1a8FqUb45 X64zUZijAITxMGOhOFKqVQKopQducj 6zuU4oFc8+NL6uj1ggas77pM21gTO+ JWQbKIR2zEsjERrb YVLcvK6eBQogQaB2UDJaWwWfgA71qU QrSWrfMv0gtZcalOpcLX0vCLUrthdt x482TkLqz5ewZXVk hMTxERfjDYN5Q16gn6K2FYPkOJFeYM O5tFL2uQ4hmNosnwiyjVNqdGfyjzSy eBngFHreAAjbE998 WYXgjVlzAvBmaIyxcoUuGiGzIFv4M9 GzJzv5FKFamPtxPV4mjCTxYZzmGv1k vLdoqIkfIW0bNDXc wqkjv752RgGqk7iiTZXmhKJrEReuET T7R14bq4V2HDBbNCKpSTC1vRW7lK8d bGlnbjogbGVmdDsg ffHvuGnzOLlpEQpaQ543WJFtuZjlFr SyscDiUFQtnGG7WD26XY87mAGta6A4 lOL2G9SnNUNgsfal wgluuOM3NAEkAILgxS22Nr6jiXsoEx 4qPFZuELS3YPRsxAMbE8LowQ7sSxBb HAHeVOJiE3YpaCXo CDmaV852YHsfZiW2IUZtxiMrL4VwKP TomLnlKyB2p1V7Pf6ZG1Y3FE02HB34 pVNkk7H5nOK7N7Yn EBSqbhleyioxtTU7DKGdTHSdfZ78Lz 9epYkfPx4gRPRbBLC7NFIvqFRmJ8Ac qN7fXnIuACIdDVCm A8XcxRIpSKchG445YQbzNhA9SYDopg UyY8FrHPRxiAtgEyC6m7Y1Ze5VFZj6 TU34WK09sQGux6L8 kDQ7P9XgABMayslieqqzmLA0IXYmOO CdyC14Lk4paOkbGg4rVQVaHXK9DKQc eTUtF7AgfG1oCtBq KXOjDPZzB9QqsDLkMJwgR169LVheCp G8FAWtknOrE5CwSYUolUuiOzL7y0M0 Mc6IKVUwGS40XSI8 hRR2II10EW00G7TkUuwtiGYjbZP+PH RhYmxlIHdpZHRoPScxMDAlJyBzdHls XC1rEg4iXBIlBXLe oDpedKLoEzIji3rdACNtDVdaTQ3hsU chZ5PsoYC0QHXxj8j4Bh98S45wI6Tm dXA+JEZvpMN4eYW8 pV6pQiSwMaF2REwuX729FkAraHDrSb cmy0wbp8ngnXk6CxE1CGJcxqBvaKit KDG8l2WgWi62T47g HIncSTRuCPQrVGXgZLCrfSbyue9moM 9wIi8+GSYupCO5fFA7yW3aZhSrEkF3 RSzuA236IrFiySOh Fedbr6bvt3ngsWa4FyUcTITqjkSbwT uwZLE6v0YrKt99Y2CbwBubp7ZhQco9 zm71aNDgq6W1oUV4 O2YzATIqobggpGTyqRqdHG2dZKMvjv axSOZlzS9mLZJuK9c1EwCmWaY0WPto L7SewbV6BRDxsIPg SQvlNLQ8B31tt7L2OCZzDYPoIAI2oE Y2bF2ayMugbltzvQLonRypdjZwuPgi PXjxQLebM083HKTb sWcqUTNtqM7pRJMfrQHakMcjRO5zFA TvseopUuRNHNqFTNEHSE9FHHSRPcCH DL05QP04xHLtz3S4 kSW4M4ClWDSpofvexfsjwAY9XRIxBL UalD74oCUoZUnyNe0ss9A9x633IPXt XLLepB91Rj9ssPam YXDboPQYmP1bsfivd3lwsiygSuYcLZ YnAYa7BFa0AJUeqHpuSwFqOJG5MxI3 EHL4hCMyuS8fpJmv aqqkzM8kOsc+YYHaQtIoLTx5GJdlxA Q+MHStYJG8yWhbMQlsWAMbjC9eQDYn J0w2UqQsTrP2DJnh Y2JzCKFlliwxFa84oM3mQzSnCvJ2OK jrO8NtcaL0KTQjqNKnETvxLEY7K17u i2B0QLBjGZAuRLY7 yKX5tC2asMpemlknkOXkwDkucoOqsI mtZXaqDJnoR953KLStuArhVyGfXGbc UVTdKV75YN13cZSe d5C1mJA9Q6OgAZEtfktbybtfpCL6KZ HnOXKmtS08aIFuHUxnNo5ls0V8p095 NTZjYCEgkL63Pn1z lHdjMSZvzKMWxI2wvkgft8zrvvvlTh LvSTGtGVo2WLp7AMZrnQczYoFsQHQ3 XhH3LNX6tJVfxM3d uVklmjzewW9gSms+XgFbRUrsMW20PH 02dAJjp9K8bNE1V6WfMPLurctjujml vAG8XQZnZHWsiP05 eZChSUfaEd9gy5U3j716BIDwVKGbwD 58Ec6tiPdhYSBzcFAKbH4piwcyd3dg cjogIzAwMDAwMDt0 TYm9GBUwhNbfDvAdFVR6AqO4AHN4iG XzcS4ucCizumqadG8xMrt+CS6mkujt ahW4RU11RB68S1Um PjwvdGFibGU+PHRhYmxlIHdpZHRoPS cySJLqZzHowDpgIF2cCw9uVMZyERFj kLkicLFeSuEne5ah BETsAJfoYZ3joOfqP9SzoXX2UVPjc9 s1Nq51C88eE1DavUJ+ILCxiJH2iYZ4 wU7yMhLgUoT0EGaa A997BbAvxKQnPtsli9xpp5aecLq3Sn UuZIZnrvDsmJotILR1z0QpGw73N25i IHdpZHRoPSIyMCUi DAIdjIidef1lgL9jWc2+KZJstPW7tX K6vM8yPbJpAwO2CYelD726WsRlzXId DfzqV76tG2BevPB+ OLHaNne1GDXorScaCP6vfUJhMCiwKn 4nMMB5YfWsDuIkNYkxZ0YeQSNsglvw hhltpUV5XAObFPVq zI01Zb4smGjnDq5dGQKhVEY8HSUnhL FmY8OgbX7eWmJqXMLoWITnP8YciKQn ENtiV419ZXknWuK5 AQIhiqLwI3MoEMCvqRiqKcC0p0Q5Do 6YtLkmsODzXK4tTcMrYVu6H8JeFph9 FFLihBeiKW9woZOk UJseQp3ojJlybWpgKV1hWXHdfufow5 70BjNez3djDNFdbRGjHVroNYT8Y70s o0Z5LAIdUFTqEOO2 vFZ5zX4kmIamsbgqqPPfgTyoobJqfD nwAEgaXXjiM100QMXcmWtjFzDODww3 C0ZzKfl4NTGmpPta SN6skWIuDMclNj8xpYlycVwiBD9tFF Zwzdetq817YtOhn0yeHOZgfPHgTXdk LLV6D30yr3N8YYOo YGRbCAO2bRQ9rU2hoYhixdkhqGXsxE ovfpKmvSeyOLciTVqvE550BTIgzOpz Sb3RGta0M0RiXio6 KLQzrPhpAJ0ymMEbXCaiPz7dgGfimS gjFQ7sLDZzellax043RvTzs9piINSf dKQgKQhjUFR3U52l l2H7SSMyDFRuNJK0nJT5sC5vhPdvko tolIJztCidlaVjbVblSUxbCOukW936 IHRvcDsnPlBheWVy OjwvdGQ+IK10gd69Q1QdAogaJqk2QH YeRXO1wQG9bS3dYLYhHMqjj3I9oZS5 U8CrwgFpia8zs6rr YXBz (more content not included)... [facility] Consent for Treatmenton 10-19 Consent for Treatment [id number]#1.00CD:127 [facility] Discharge Instructionson Discharge Instructions [id number]#1.00CD:127 [facility] ED Clinical Summaryon 2021 ED Clinical Summary [address] [address] ED Clinical Summary Person Information Name: MARILEE ARRIAGA/[facility] Age: 45 Years : 1975 Sex: Female Language: Setswana PCP: FRANCOISE GAY Marital Status: Single Visit [...] 16:00:59 11/05/2021 16:00:59 11/05/2021 16:00:59 AD[address]: [address] [facility] [id number] PHYS DOC NOTES: MEDICAL INFORMATION: Prescriptions Given: New Medications [facility]/pharmacy #[id number], [address], [place] [id number], [phone] acetaminophen-hydrocodone (Durand 325 mg-5 mg oral tablet) 1 Tablets [...] Follow up: With: Address: When: Em Mir [address] [place] [id number] Business (1) In 3 days 11/08/2021 Comments: Return to the emergency room if your pain gets worse or any new symptoms. With: Address: When: FRANCOISE PEREIRAKAM [address] [place] [phone] Business (1) In 3 days DIAGNOSIS: 1:Avulsion fracture of left ankle; 2:Sprain of left foot [facility] ED Note-Physicianon 11-06-19 ED Note-Physician Basic [...] and crutches was given. Patient was given Durand in the emergency room. Will discharge patient home with Durand and follow-up with Ortho. The OARRS report [...] needed for pain, 10 tab(s), Refill(s) 0, [facility]/pharmacy #[id number], 158, cm, 11/05/21 13:26:00 EDT, [...] Foot 3+ Views Left Medications Administered Given Durand 5/325 Tab, 1 tab(s), Oral Disposition Plan Patient Discharge Condition Stable Discharge Disposition Discharged home Discharge Prescription List Prescriptions Durand 325 mg-5 mg oral tablet, 1 tab(s), Oral, q6hr, PRN Follow-up With When Contact Information Em Adeola In 3 days 11/08/2021 EDT [address] [place] [address]- Business (1) Additional Instructions: Return to the emergency room if your pain gets worse or any new symptoms. FRANCOISEEMILE BARNES In 3 days [address] [place] [address]- Business (1) Additional Instructions: Patient Education Crutch [...] Tab, 100 mg= 1 tab(s), Oral, Daily Durand 325 mg-5 mg oral tablet, 1 tab(s), [...] 08/04/2001 Document Revised: 07/20/2018 Document Reviewed: 01/27/2017 Parental Health Patient Education ? 2019 [employer] How to Use a Stirrup Ankle [...] the bra (more content not included)... [facility] ED Patient Summaryon 022 ED Patient Summary [place] [id number] Patient Discharge Instructions Person Information Name: MARILEE ARRIAGA Age: 45 Years Arrival Date: 11/05/2021 13:19:01 Discharge Diagnosis: 1:Avulsion fracture of left ankle; 2:Sprain of left foot Primary Care Physician: FRANCOISE GAY Provider Information Primary Provider: Tyler Petersen M.D. Advanced Jogger Operator:None The exam and treatment you received in the Emergency Department were for an urgent problem and are not intended as complete care. It is important that you follow up with a doctor, nurse practitioner, or physician?s assistant executive housekeeper for ongoing care. If your symptoms become [...] Instructions: With: Address: When: Em Bullockcooper [address] [place] [address] Business (1) In 3 days 11/08/2021 Comments: Return to the emergency room if your pain gets worse or any new symptoms. With: Address: When: FRANCOISE PEREIRAKAM [address] [place] [address] Business (1) In 3 days In the [...] opioids can be used to help relieve fuoijyzi-kl-mpkygm pain and are often prescribed following a [...] Administration (www.fd (more content not included)... [facility] XR Ankle 3+ Views Lefton XR [...] MD Transcribed by: KAIDEN Technologist: NO [facility] XR Foot 3+ Views Lefton 10-19 XR Foot 3+ Views Left Exam Date/Time: 11/05/2021 13:50 EDT Reason for Exam: Fall Report Refer to concurrent left ankle radiograph dictation. FINAL REPORT Dictated: 11/05/2021 2:04 pm Rony Barnett MD Signed (Electronic Signature): 11/05/2021 2:04 pm Signed by: Rony Barnett MD Transcribed by: KAIDEN Technologist: Normal [facility] MRI BRAIN W WO CONTRASTon MRI [...] by:SUMANTH Garciaigned by:Margo Mendez MD02/13/18inal result Normal [facility] CNDSon 02-16-2017 CNDS HNO ID: [id number] thor: Mark Anthony (Romain) AdenugaService: General SurgeryAuthor Type: ResidentType: Discharge SummariesFiled: 02/16/2017 11:44 AMNote Text:The [place] [id number] or ([phone]) [facility] O N F I D E N T I A L I N F O R M A T I O N -----STANDARD [facility] DOCUMENTDISCHARGE SUMMARYPatient Name: Marilee Buckner Date: 02/13/2017Discharge Date: 02/16/2017Attending Physician: DENIZ Pfeifferrincipal Diagnosis: Morbid obesitySecondary Diagnoses:Patient Active Hospital Problem List: Obesity, Class III, BMI >= 40 (morbid obesity) ([facility]) E66.01 (02/12/2017) Morbid obesity ([facility]) (02/13/2017)Operations During Hospitalization:Laparoscopic Crystal en Y gastric [...] as needed.Future Appointments:Future AppointmentsDate Time Provider Department Diamond02/23/2017 2:30 PM [id number]-RANIFYIWKRENÉE LUNDBERG GENBMI GENS A/M BL03/09/2017 11:00 AM [id number]-AUCBGZDPKI, KASEY (PHD) GSPSMN GENS A/M BL03/16/2017 12:00 PM [id number]-JYYDMNMRQXBA 2 GENBMI GENS A/M BLD04/06/2017 1:45 PM [id number]-YPHWRPAKURENÉE LUNDBERG GENBMI GENS A/M BLD05/16/2017 10:30 AM [id number]-GCEDOLISSY TAM GENBMI GENS A/M BLD05/16/2017 10:30 AM [id number]-LKCVOLISSY TMA GENBMI GENS A/M BLDPatient will follow-up in clinic with Renée Lopez MD as scheduledabove, or sooner if the need arises.Electronically SIGNED by Licensed Independent Practitioner: Mark Anthony Jean MD [facility] Glucose POCT ([place], [place], [place] A Use Only)on 02-16-2017 Glucose mass conc 105 mg/dL High 65-100 [facility] Comment on above: Performed By: #### G LUPOC ####[facility] [place], [place] [phone] NURSING PROGon 02-16-2017 NURSING PROG HNO ID: [id number] thor: Lilibeth Ortega (Rn) Doroteo Santos: (none)Author Type: Registered NurseType: Nursing Progress NoteFiled: 02/16/2017 11:37 AMNote Text: Nursing Progress NotePatient Name: Marilee OlivierJustinN: [id number] Location: [place] [address]/[id number] [place] Note: Patient has been discharged [...] note was completed by: Lilibeth Santos RN [facility] NURSING PROG HNO ID: [id number] thor: Lilibeth Ortega (Rn) Doroteo Santos: (none)Author Type: Registered NurseType: Nursing Progress NoteFiled: 02/16/2017 10:27 AMNote Text: Nursing Progress NotePatient Name: Marilee OlivierJeraldRN: [id number] Location: [facility]/VV-[id number] [place] Note: Doing better this am, able to take all of pills and drink theKphos, took a shower, so taking in more po, pain controlled, no emesis, nomore bloody stool, ambulating VSS, on RA, expecting to go home today,continue to monitor.This note was completed by: Lilibeth Santos RN [facility] PROGRESSon 02-16-2017 PROGRESS HNO ID: [id number] thor: Hiram (Res) BrunsService: General SurgeryAuthor Type: ResidentType: Progress NotesFiled: 02/16/2017 8:02 AMNote Text:General Surgery Progress NoteName: Marilee Tinsley SoyirMRN: [id number]: 02/16/2017SUBJECTIVESubjective: No acute events overnight. Last melenotic [...] lb) LMP 01/27/2017 SpO2 94% BMI 62.73 kg/s4Bmqazo/Output Summary (Last 24 hours) at 02/16/17 0759Last [...] with morbid obesity now POD 3 s/p feywrpeuuibiXwls-wf-N gastric bypass. Bloody bowel movements resolved with stable H/H.- Phase 2 bariatric diet- Heplock IV- Wean O2- PO pain meds, hold toradol- Will discuss resuming DVT prophylaxis- Encourage incentive spirometry and ambulation- Anticipate discharge today on home Richelle Gordon MDSt. [facility] ResidentPager [phone] Normal [facility] Basic Metabolic Panlon 02-15 Anion gap 10 mmol/L Normal 9-18 [facility] Comment on above: Performed By: #### B MP, MG1, PHOS ####[place] [address] Calcium 8.1 mg/dL Low 8.5-10.5 [facility] Comment on above: Performed By: #### B MP, MG1, PHOS ####[place] [address] Chloride 104 mmol/L Normal 98-110 [facility] Comment on above: Performed By: #### B MP, MG1, PHOS ####[place] [address] CO2 27 mmol/L Normal 23-32 [facility] Comment on above: Performed By: #### B MP, MG1, PHOS ####[place] [address] Creatinine 0.78 mg/dL Normal 0.70-1.40 [facility] Comment on above: Performed By: #### B MP, MG1, PHOS ####[place] [address] eGFR (non-black) mL/min/{1.73_m2} Normal >60 [facility] Comment on above: Performed By: #### B MP, MG1, PHOS ####[place] [address] Glucose mass conc 119 mg/dL High 65-100 [facility] Comment on above: Performed By: #### B MP, MG1, PHOS ####[place] [phone] Potassium molar conc 4.2 mmol/L Normal 3.5-5.0 [facility] Comment on above: Performed By: #### B VIANCA MG1, PHOS ####[place] [phone] Sodium 141 mmol/L Normal 132-148 [facility] Comment on above: Performed By: #### B VIANCA MG1, PHOS ####[place] [phone] Urea nitrogen 15 mg/dL Normal 8-25 [facility] Comment on above: Performed By: #### B VIANCA MG1, PHOS ####[place] [phone] CBCon 02-15-2017 Erythrocyte distribution width Auto Ratio (RBC) 12.9 % Normal 11.5-15.0 [facility] Comment on above: Performed By: #### C BC ####[place] [phone] Erythrocytes (RBC) 3.63 10*6/uL Low 3.90-5.20 [facility] Comment on above: Performed By: #### C BC ####[place] [phone] Hematocrit (HCT) 33.8 % Low 36.0-46.0 [facility] Comment on above: Performed By: #### C BC ####[place] [phone] Hemoglobin mass conc (Bld) 10.9 g/dL Low 11.5-15.5 [facility] Comment on above: Performed By: #### C BC ####[place] [phone] MCH 30.0 pG Normal 26.0-34.0 [facility] Comment on above: Performed By: #### C BC ####[place] [phone] MCHC mass conc (RBC) 32.2 g/dL Normal 30.5-36.0 [facility] Comment on above: Performed By: #### C BC ####[place] [phone] MCV 93.1 fL Normal 80.0-100.0 [facility] Comment on above: Performed By: #### C BC ####[place] [phone] Platelet mean volume (PMV) 8.5 fL Low 9.0-12.7 [facility] Comment on above: Performed By: #### C BC ####[place] [phone] Platelets 368 10*3/uL Normal 150-400 [facility] Comment on above: Performed By: #### C BC ####[place] [phone] WBC (Leukocytes) 11.75 10*3/uL High 3.70-11.00 [facility] Comment on above: Performed By: #### C BC ####[place] [phone] CBC and Differentialon 02-15 Abs Baso 0.02 k/uL Normal 0.00-0.10 [facility] Comment on above: Performed By: #### C BCDIF ####[place] [phone] Abs [place] 0.97 k/uL High 0.00-0.86 [facility] Comment on above: Performed By: #### C BCDIF ####[place] [phone] Abs Neut 8.11 k/uL High 1.45-7.50 [facility] Comment on above: Performed By: #### C BCDIF ####[place] [phone] Basophils/100 WBC Auto (Bld) 0.1 % Normal [facility] Comment on above: Performed By: #### C BCDIF ####[place] [address] DTYPE Auto Diff Normal [facility] Comment on above: Performed By: #### C BCDIF ####[address] Eosinophils 0.35 10*3/uL Normal 0.00-0.45 [facility] Comment on above: Performed By: #### C BCDIF ####[place] [phone] Eosinophils/100 leukocytes 2.5 % Normal [facility] Comment on above: Performed By: #### C BCDIF ####[place] [address] Erythrocyte distribution width Auto Ratio (RBC) 13.1 % Normal 11.5-15.0 [facility] Comment on above: Performed By: #### C BCDIF ####[address] Erythrocytes (RBC) 3.51 10*6/uL Low 3.90-5.20 [facility] Comment on above: Performed By: #### C BCDIF ####[place] [address] Hematocrit (HCT) 32.6 % Low 36.0-46.0 [facility] Comment on above: Performed By: #### C BCDIF ####[address] Hemoglobin mass conc (Bld) 10.7 g/dL Low 11.5-15.5 [facility] Comment on above: Performed By: #### C BCDIF ####[place] [phone] Lymphocytes 4.35 10*3/uL High 1.00-4.00 [facility] Comment on above: Performed By: #### C BCDIF ####[place] [phone] Lymphocytes/100 leukocytes 31.5 % Normal [facility] Comment on above: Performed By: #### C BCDIF ####[place] [phone] MCH 30.5 pG Normal 26.0-34.0 [facility] Comment on above: Performed By: #### C BCDIF ####[place] [phone] MCHC mass conc (RBC) 32.8 g/dL Normal 30.5-36.0 [facility] Comment on above: Performed By: #### C BCDIF ####[place] [phone] MCV 92.9 fL Normal 80.0-100.0 [facility] Comment on above: Performed By: #### C BCDIF ####[place] [phone] Monocytes/100 leukocytes 7.0 % Normal [facility] Comment on above: Performed By: #### C BCDIF ####[place] [phone] Neutrophils/100 WBC Auto (Bld) 58.9 % Normal [facility] Comment on above: Performed By: #### C BCDIF ####[place] [phone] Platelet mean volume (PMV) 8.3 fL Low 9.0-12.7 [facility] Comment on above: Performed By: #### C BCDIF ####[place] [phone] Platelets 391 10*3/uL Normal 150-400 [facility] Comment on above: Performed By: #### C BCDIF ####[place] [phone] WBC (Leukocytes) 13.80 10*3/uL High 3.70-11.00 [facility] Comment on above: Performed By: #### C BCDIF ####[place] [phone] [place] [address] Glucose POCT ([facility] [place] [place] Use Only)on 02-15-2017 Glucose mass conc 111 mg/dL High 65-100 [facility] Comment on above: Performed By: #### G LUPOC ####[place] [phone] [place] [address] Glucose mass conc 121 mg/dL High 65-100 [facility] Comment on above: Performed By: #### G LUPOC ####[place] [address] Glucose mass conc 99 mg/dL Normal [address] Comment on above: Performed By: #### G LUPOC ####[place] [address] Glucose mass conc 116 mg/dL High 65-[address] [place] [address] Comment on above: Performed By: #### G LUPOC ####[place] [address] Magnesiumon 02-15-2017 Magnesium 2.0 mg/dL Normal 1.7-2.6 [facility] Comment on above: Performed By: #### B MP, MG1, PHOS ####[facility] [address] NURSING PROGon 02-15-2017 NURSING PROG HNO ID: [id number] thor: Lilibeth Ortega (Rn) Racquel Santosice: (none)Author Type: Registered NurseType: Nursing Progress NoteFiled: 02/15/2017 4:15 PMNote Text: Nursing Progress NotePatient Name: Marilee OlivierHesham: [id number] Location: [place] [address]/[id number] Da nena Note: Dr called to inform that patient had another bloody stool itwas dark red, no change in vital signs HR has remained in 70's, on RA, noincrease in pain, patient is only taking sips of clears otherwiseunchanged , stable, lab orders again @ 1800.This note was completed by: Lilibeth Santos RN [facility] NURSING PROG HNO ID: [id number] thor: Lilibeth Ortega (Rn) Doroteo Santos: (none)Author Type: Registered NurseType: Nursing Progress NoteFiled: 02/15/2017 10:29 AMNote Text: Nursing Progress NotePatient Name: Marilee Tinsley Dillan: [id number] Location: [facility]/[id number] Da nena Note:Patient states she's feeling ok, just brought up some 'phlegm',( clearbubbles) no emesis, able to keep down 'bites' or sips of broth and tea,given IV phenergan, denies pain, encouraged to continue to ambulate,stable, call light in reach.This note was completed by: Lilibeth Santos RN [facility] NURSING PROG HNO ID: [id number] thor: Liliana (Jorge) Doroteo Seth: (none)Author Type: Registered NurseType: Nursing Progress NoteFiled: 02/15/2017 5:53 AMNote Text: Nursing Progress NotePatient Name: Marilee Tinsley Dillan: [id number] Location: [facility]/[id number] Surgery paged [id number] Marilee Arriaga: patient had dark bloody BM. pleaseadvise. Thanks, Liliana [phone] No new ordersThis note was completed by: Liliana Seth RN [facility] PROGRESSon 02-15-2017 PROGRESS HNO ID: [id number] thor: Mark Anthony (Res) TedService: General SurgeryAuthor Type: ResidentType: Progress NotesFiled: 02/15/2017 8:25 AMNote Text:General SurgeryProgress notesAdmitted: 02/13/2017OR date: 02/13/2017 Procedure(s) and Anesthesia Type: * LAPAROSCOPIC GASTRIC RESTRICTIVE SURG W/ BYPASS AND CRYSTAL-EN-Y = 40 (morbid obesity) ([facility]) E66.01 (02/12/2017) Morbid obesity (HCC) (02/13/2017)Hold Lovenox/Toradol, [...] RNF, potential discharge tomorrowPaul MD Ted (PGY 2)[id number] 6PM weekdays and all through weekends: [id number] SNausea and emesis yesterday, improving and PO intake improvingSlept okayDark bloody BMs this AMAmbulating well OTemp (24hrs), Av.7 ?C (98 ?F), Min:36.4 ?C (97.6 ?F), Max:36.9 ?C(98.4 ?F)BP 147/78 Pulse 80 Temp 36.4 ?C (97.6 ?F) (Oral) Resp 16 Ht 154.9cm (5' 1 ) Wt (!) 150.6 kg (332 lb) LMP 01/27/2017 SpO2 99% BMI62.73 kg/s2UVNKPHC: Mild distress as actively nauseated and sitting up with vomitbag, alert and oriented x 3HEENT: NC/AT, EOM's intactRESPIRATORY: Respiratory effort unlaboredCHEST-CVS: HDSABDOMEN: Soft, obese and non distended, non tender, laparoscopic incisionsCDI with glueNEURO: Grossly non-focal02/14 07 - 02/15 0659In: 3622 [PO:300; IV:3322]Out: 2180 [Urine:1850] Normal [facility] PROGRESS HNO ID: [id number] thor: Renée LopezService: General SurgeryAuthor Type: PhysicianType: [...] as PO intake improvesStreggie Lopez MD Normal [facility] Phosphoruson 02-15-2017 Phosphate 1.9 mg/dL Low 2.5-4.5 [facility] Comment on above: Performed By: #### B REGGIE COLEY, PHOHeaven ####[facility] [place], [place] [phone] Vital Signs Date Time Vital Sign Value Performing Clinician Faci lity 09-19-2023 09:41-0500 Body height 157.48 cm [facility] 09-19-2023 09:41-0500 Body weight 104.32 kg [facility] Encounters Encounter Date Encounter Type Care Provider Facility Start: 2023 End: 2023 ambulatory MATTHEW BANGURA [facility] Start: 12-12-2023 End: 12-12-2023 ambulatory GERMAINE Abunido BOLIVAR Not Available Start: 12-04-2023 End: 12-05-2023 ambulatory Najma Richardson MD Facility:[facility] Start: 11-21-2023 End: 11-21-2023 ambulatory FRANCOISE BARNES Not Available Start: 11-06-2023 ambulatory Jamey Minor acility:[facility] Start: 10-31-2023 End: 11-01-2023 ambulatory FRANCOISE Del Castillo HEMMER Not Available Start: 10-23-2023 End: 10-24-2023 ambulatory Najma Richardson MD Facility:[facility] Start: 09-25-2023 Refill Francoise Barnes PA Work Phone: [facility] Comment on above: Chronic pain of both knees Start: 09-19-2023 End: 09-19-2023 ambulatory Simona Szymanski Facility:[facility] Start: 09-19-2023 End: 09-19-2023 ambulatory NON STAFF [facility] Work Phone: Start: 09-19-2023 End: 09-19-2023 Patient encounter procedure [facility] Work Phone: Start: 08-05-2023 End: 08-05-2023 ambulatory FRANCOISE Del Castillo HEMMER Not Available Start: 07-26-2023 End: 07-26-2023 ambulatory FRANCOISE M HEMMER Not Available Start: 07-17-2023 Registered [facility] Start: 06-05-2023 End: 06-06-2023 ambulatory Najma Richardson MD Facility:[facility] Start: 05-01-2023 End: 05-02-2023 ambulatory Najma Richardson MD Facility:[facility] Start: 04-03-2023 End: 04-04-2023 ambulatory Najma Richardson MD Facility:[facility] Start: 02-27-2023 End: 02-28-2023 ambulatory Najma Richardson MD Facility:[facility] Start: 02-13-2023 End: 02-14-2023 ambulatory Najma Richardson MD Facility:[facility] Start: 11-07-2022 End: 11-08-[address] FRANCOISE BARNES Facility: Start: 06-27-2022 End: 06-27-2022 ambulatory SUNSHINE NEWMAN . Facility: Start: 04-27-2022 End: 10-26-2022 ambulatory FRANCOISE BARNES Facility:[facility] Start: 04-22-[address] FRANCOISE BARNES Facil ity:H1 Start: 11-05-2021 End: 11-05-2021 Emergency department patient visit Tyler Petersen Facility:[facility] Start: 09-18-2018 Patient encounter procedure Ida Weber Facility:[id number] Start: 05-08-2018 Patient encounter procedure Ida Weber Facility:[id number] Start: 02-13-2018 End: 02-16-2018 Ambulatory FRANCOISE BARNES [facility] Start: 12-19-2017 Patient encounter procedure Ida [...] EST Office Visit [facility] [address] [place] [address] Francoise Barnes PA [address] [facility] [address] [place] [address] [facility] Start: 12-14-2007 Screening for malign ant neoplasm of cervix [facility] Start: 1998 Screening for malign ant neoplasm of cervix Pap Smear [facility] Start: 1977 Screening for malign ant neoplasm of colon [facility] Immunizations Immunization Date Immunization Notes Care Provider Fa cili 05-30-2021 influenza, injectabl e, quadrivalent, preservative free Francoise MARTINEZ Work Phone: [facility] 05-30-2021 influenza virus vacc ine, unspecified formulation Francoise MARTINEZ Work Phone: [facility] 06-12-2020 influenza, injectabl e, quadrivalent, preservative free Francoise MARTINEZ Work Phone: [facility] 12-16-2018 tetanus toxoid, redu brina diphtheria toxoid, and acellular pertussis vaccine, adsorbed Francoise MARTINEZ Work Phone: [facility] Payers Date Payer Category Payer Self-pay [id number] 2022 Medicaid [id number] 2022 Medicaid [place] [id number] 2022-Present [address] [place] [address] [id number] 2022 Unknown 2018 Unknown [id number] 1977 Unknown [id number] 2.16.840.1.316371.3.579.2.356 1977 Unknown [id number] 2.16.840.1.882643.3.579.2.356 1977 Unknown [id number] 2.16.840.1.622904.3.579.2.356 1977 Unknown [id number] 2.16840.1.684895.3.579.2.727 1977 Unknown [id number] 2.16.840.1.995250.3.579.2.727 1977 Unknown [id number] 2.16840.1.693346.3.579.2.593 1977 Unknown [id number] 2.16840.1.995474.3.579.2.593 1977 Unknown [id number] 2.16840.1.483753.3.579.2.593 1977 Unknown [id number] 2.840.1.371849.3.579.2.196 1977 Unknown [id number] 2.840.1.901844.3.579.2.196 1977 Unknown [id number] 2.840.1.600254.3.579.2.196 1977 Unknown [id number] 2.16840.1.708306.3.579.2.196 1977 Unknown [id number] 2.840.1.591109.3.579.2.196 1977 Unknown [id number] 2.840.1.255515.3.579.2.196 1977 Unknown [id number] 2.16840.1.309103.3.579.2.196 1977 Unknown [id number] 2.16840.1.280868.3.579.2.9 1977 Unknown [id number] 2.16.840.1.807405.3.579.2.1259 1977 Unknown [id number] 2.16840.1.305850.3.579.2.1259 1977 Unknown [id number] 2.16.840.1.920430.3.579.2.1259 1977 Unknown [id number] 2.16.840.1.436631.3.579.2.1259 1977 Unknown [id number] 2.16.840.1.259001.3.579.2.1286 1959 Unknown [id number] Unknown [id number] 2.16.840.1.507675.3.579.2.531 Unknown [id number] 2.16.840.1.351928.3.579.2.531 Social History Date Type Detail Facility Tobacco smoking stat us CAIS Unknown if ever smoked [facility] Work Phone: Start: 1975 Sex Assigned At Female F [facility] Start: 09-18-2018 End: 01-23-2023 Tobacco smoking status CAIS Never smoked tobacco (finding) [facility] Start: 01-23-2023 Tobacco use and exposure Smokeless tobacco non-user [facility] Start: 07-26-2023 Alcohol intake Ex-drinker (finding) [facility] Start: 01-24-2023 End: 07-26-2023 History of Social function [facility] Start: 01-24-2023 End: 07-26-2023 Tobacco use panel [facility] Start: 04-26-2023 Alcohol Comment Caffeine intake: sod a [facility] Start: 1975 Sex Assigned At [...] into patient's pharmacy. documented in this encounter [facility] Clinical Note 06-27-2022 Note Date [...] by: EM LÓPEZ Date: 2022-06-27 15:38 [facility] Progress note 06-28-2021 Note Date & Type Note Facility 06-28-2021 Note HNO ID: [id number] Author: Em Fernandez, PhD Service: ? Author Type: Psychologist Type: Progress Notes Filed: 06/28/2021 2:45 PM Note Text: Received mental health records from [facility]. Note from 05/06/21 revealed pt has [...] medical records for scanning. Em Fernandez, psychologist [facility] Evaluation note Note Date & Type Note Facility Evaluation note No assessment information availa [facility] Work Phone: Evaluation note Note Date & Type Note Facility Evaluation note Diagnosis Chronic pain of both knees documented in this encounter [facility] Summary Purpose Family History No [...] section and content) DATE CREATED AUTHOR 02/14/2018 [facility] DATE CREATED AUTHOR AUTHOR'S ORGANIZ ATION 02/16/2018 [facility] DATE CREATED AUTHOR AUTHOR'S ORGANIZ ATION 10/09/2018 [facility] DATE CREATED AUTHOR AUTHOR'S ORGANIZ ATION 10/11/2021 [facility] DATE CREATED AUTHOR AUTHOR'S ORGANIZ ATION 10/28/2022 [facility] DATE CREATED AUTHOR AUTHOR'S ORGANIZ ATION 11/13/2022 [facility] DATE CREATED AUTHOR AUTHOR'S ORGANIZ ATION 2023 [facility] DATE CREATED AUTHOR AUTHOR'S ORGANIZ ATION 2023 [facility] EP[facility] DATE CREATED AUTHOR AUTHOR'S ORGANIZ ATION 12/15/2023 [facility] DATE CREATED AUTHOR AUTHOR'S ORGANIZ ATION 12/20/2023 [facility] [...] September 19, 2023 End: September 19, 2023 Manager Night Relationship Specialty Start Date End Date Shalini Coffey MD [address] [place] [address] PCP - General Family Medicine 08/05/23 Reason [...] BE BASED ON THE PRIMARY CLINICAL RECORDS. [employer] provides no warranty or guarantee of the accuracy or completeness of information in this document.
== END 2023-12-28 07:01 | disposition home or self-care (01) ==
LOC: NM 07:00
PROVIDERS: PCP Physician Assistant; Visit Provider Surgery
DX: R10.11 Right upper quadrant pain (principal)
CPT/HCPCS: 78227; A9537

== ENCOUNTER 2024-01-01 09:22 | Outpatient (OUT) | payer MEDICAID, SELFPAY ==
--- NOTE | 2024-01-01 09:26 | FL_ITS ---
The [address] [address] Patient Name: NAYA ARRIAGA MRN: [id number] date: 1975 Sex: F Assigned Patient Location: [place] Current Patient Location: [place] Accession/Order Number: [id number] Exam Date: 01/01/2024 09:35 Report Date: 01/01/2024 11:25 At the request of: MATTHEW BANGURA Procedure: FL upper GI w air PROCEDURE: FL upper GI w air, FL cineradiography COMPARISON: None. FLUORO DOSE: unknown HISTORY: Right upper quadrant abdominal pain R10.11 TECHNIQUE: An air contrast upper gastrointestinal series was performed in the usual manner. Standard level fluoroscopic mode of operation utilized. FINDINGS: ESOPHAGUS:Moderate reflux with the patient in supine position STOMACH: Very small in size consistent with known Edu-en-Y procedure DUODENUM:Normal. No ulceration or diverticulum. OTHER: Negative. FL/FL upper GI w air IMPRESSION: Moderate amount of gastroesophageal reflux with the patient in supine position Electronically authenticated by: EM LÓPEZ Date: 01/01/2024 11:25
== END 2024-01-01 09:23 | disposition home or self-care (01) ==
LOC: FL 09:22
PROVIDERS: PCP Physician Assistant; Visit Provider Surgery
DX: R10.11 Right upper quadrant pain (principal); K21.9 Gastro-esophageal reflux disease without esophagitis
CPT/HCPCS: 74246; 76120

== ENCOUNTER 2024-01-17 12:54 | Outpatient (OUT) | payer MEDICAID, SELFPAY ==
--- NOTE | 2024-01-17 13:22 | P.CN_ITS ---
Consult Note: HPI Data of Consult Patient: known to practice within the last 3 years Requesting Physician: Simona Szymanski NP Primary Care Provider: SHWETA BARNES Consult Narrative Reason for consult: MBB #2 f/u Narrative: Marilee Uribe is a pleasant 47 year old female who follows for chronic low back pain and right knee pain. Pain today 7/10 ache in low back. continues medications through PCP with mild benefit. continues HEP as tolerated, previously failed greater than 6 weeks of PT/HEP. Previously received greater than 50% improvement in axial low back pain with prior bilateral L3-4 L4-5 facet medial branch RFA for 6 months, would like to discuss repeating. cc:: CC: Simona Szymanski NP Review of Systems ROS Status of ROS 10 or more systems reviewed and unremark able except as noted in history and below Musculoskeletal Reports: back pain PFSH PFSH Medical History Surgical History S/P endometrial ablation ?Z98.890 - Other specified postprocedural states (ICD-10) S/P right knee arthroscopy ?Z98.890 - Other specified postprocedural states (ICD-10) H/O gastric bypass ?Z98.84 - Bariatric surgery status (ICD-10) S/P tonsillectomy ?Z90.89 - Acquired absence of other organs (ICD-10) Social History Smoking status: Never smoker Meds Home Medications and Allergies Home Medications ?Medication ?Instructions ?Recorded ?Confirmed ?Type acetaminophen 650 mg 650 mg PO Q12H PRN pain 02/13/23 12/08/23 History tablet,extended release (Tylenol Arthritis Pain) aripiprazole 400 mg suspension, 400 mg IM Q28D 02/13/23 12/08/23 History extended rel.intramuscular syringe (Abiliaislinn Maintena) buspirone 30 mg tablet 30 mg PO BID 02/13/23 12/08/23 History lumateperone 10.5 mg capsule 10.5 mg PO DAILY 02/13/23 12/08/23 History (Caplyta) tramadol 50 mg tablet 50 mg PO BID PRN pain 02/13/23 12/08/23 History trazodone 300 mg tablet 300 mg PO DAILY PRN sleep 02/13/23 12/08/23 History venlafaxine 100 mg tablet 300 mg PO DAILY 02/13/23 12/08/23 History zolpidem 5 mg tablet (Ambien) 5 mg PO BEDTIME PRN sleep 02/13/23 12/08/23 History tizanidine 4 mg tablet 4 mg PO BEDTIME 04/18/23 12/08/23 History acarbose 25 mg tablet 25 mg PO DAILY 08/01/23 12/08/23 History cholecalciferol (vitamin D3) 250 10,000 unit PO DAILY 08/01/23 12/08/23 History mcg (10,000 unit) capsule hydroxyzine pamoate 25 mg capsule 25 mg PO DAILY 08/01/23 12/08/23 History lamotrigine 150 mg tablet 300 mg PO DAILY 12/03/23 12/08/23 History ondansetron HCl 4 mg tablet 4 mg PO Q6H PRN nausea and vomiting 12/08/23 12/08/23 History Allergies Allergy/AdvReac Type Severity Reaction Status Date / Time erythromycin base Allergy Unknown Verified 12/08/23 20:00 [From E-Mycin] Penicillins Allergy Unknown Verified 12/08/23 20:00 shellfish derived Allergy Unknown Verified 12/08/23 20:00 Sulfa (Sulfonamide Allergy Unknown Verified 12/08/23 20:00 Antibiotics) codeine Allergy Verified 12/08/23 20:00 Exam Constitutional Documenting provider has reviewed patient's vital signs: yes Common normals: no apparent distress, oriented x3, healthy appearing, alert and well nourished General appearance: cooperative Nutritional appearance: obese [facility] Common normals: normocephalic, hearing grossly normal bilaterally and moist oral mucous membranes Head and scalp: normocephalic Eye Common normals: PERRL Pupil: PERRL Neck & C-Spine Common normals: full ROM General: normal visual inspection Chest Common normals: inspection of chest normal Respiratory Common normals: normal respiratory effort, no retractions and no use of accessory muscles Back & Pelvis Common normals: thoracic and lumbar spine normal to inspection Lumbar spine/lower back: ROM limited, pain with ROM, lumbar spinal tenderness and straight leg raise negative bilaterally Other: positive bilateral facet loading no radiculopathy unable to adequately assess SIJ due to patients size Extremity Common normals: normal to inspection and full ROM Right lower extremity: knee joint Other: edema, enlarged diameter, pain with medial and lateral stress testing Neuro Common normals: oriented x3, CN's II-XII intact bilaterally, moves all extremities, no focal motor deficits, no sensory deficits noted and deep tendon reflexes 2+ bilaterally Sensorium/orientation: alert Motor exam: strength 5/5 throughout and no movement abnormalities noted Psych Common normals: mental status grossly normal, thought process normal, cooperative, affect normal, speech normal and activity/motor behavior normal Speech: normal speech Thought process: normal thought process Results Additional Findings Additional findings: If on a controlled substance or opioids, I have checked an [place] report on this patient and there are no aberrancies noted in the prescribing history.??If on a controlled substance or opioid a drug screen was completed and reviewed within the last year, and if there has not been a drug screen completed we ordered one today to monitor higher risk, state monitored pain medication use. As part of providing excellent, safe, comprehensive care, the following was completed at our patient's visit: 1. A medication reconciliation and review to ensure accurate knowledge of current/active medications, including asking our patients to inform us about any [id number] medications or herbal remedies/nutritional supplements/alternative remedies. 2. A review to specifically ensure our patients have had annual screening for screening for depression, screening for tobacco use, and screening for unhealthy alcohol use. For concerning screenings had a discussion with the patient, provided patient education, and recommended follow-up with primary care provider when appropriate. If patient noted with a risk of falling, they received education on strength, gait, and balance training to prevent future risk of falling. Assessment and Plan Assessment and Plan (1) Lumbar spondylosis: (2) Lumbago: (3) Osteoarthritis of right knee: (4) Muscle spasm: Plan repeat bilateral L3-4 L4-5 facet medial branch thermal RFA under fluoroscopy with IV sedation due to inability to safely tolerate procedure without IV sedation due to anxiety f/u 1 month after RFA
== END 2024-01-17 12:55 | disposition home or self-care (01) ==
LOC: PM 12:55
PROVIDERS: PCP Physician Assistant; Visit Provider Nurse Practitioner
DX: M47.816 Spondylosis without myelopathy or radiculopathy, lumbar region (principal); M54.50 Low back pain, unspecified; M17.11 Unilateral primary osteoarthritis, right knee; M62.838 Other muscle spasm
CPT/HCPCS: G0463

== ENCOUNTER 2024-01-21 20:43 | Emergency (ER) | payer MEDICAID, SELFPAY ==
[2024-01-21 20:47] VITALS: BP 144/109; PULSE 90; TEMP 36.6; O2SAT 97; BMI 60.5
--- OUTSIDE RECORDS SUMMARY | 2024-01-21 20:52 | XMS_ITS | CCD ---
Author Organization [facility] CliniSyvt Care Team Providers Care Histology Supervisor Name Role Phone FRANCOISE BARNES Unavailable Unavailable ESPERANZADANUTA Unavailable Unavailable Gus, Ida Evans Attending Unavailable Gus, Ida Evans Attending Unavailable Gus, Ida Evans Attending Unavailable FRANCOISE BARNES Referring Unavailable FRANCOISE BARNES Admitting Unavailable FRANCOISE BARNES Primary Care Unavailable FRANCOISE BARNES Attending Unavailable Tyler Petersen Attending Unavailable MOLLY, FRANCOISE Primary Care Unavailable TRENT ., SUNSHINE Admitting Unavailable TRENT ., SUNSHINE Attending Unavailable MISC, DR SLOAN Primary Care Unavailable [place], DR EM Snyder Consulting Unavailable SUNSHINE QUARLES Consulting Unavailable GRANT NAYAK Consulting Unavailable HEMKAM, DR FRANCOISE Del Castillo Admitting Unavailable HEMMER, DR FRANCOISE Del Castillo Attending Unavailable MISC, DR SLOAN Primary Care Unavailable HEMMER, DR FRANCOISE Del Castillo Consulting Unavailable HEMMER, DR FRANCOISE Del Castillo Admitting Unavailable HEMMER, DR FRANCOISE Del Castillo Attending Unavailable NON STAFF Primary Care Provider UnavailMD Jamey Kapoor Attending Provider [phone] MAHIN Szymanski Attending Provider Shalini Coffey MD Primary Care Provider Debra SIERRA, Najma Jay Attending Unavailable Debra SIERRA, Andrius Pierre Attending Unavailable Debra SIERRA, Andrius Vytadrian Attending Unavailable Debra SIERRA, Andrius Pierre Attending Unavailable Debra SIERRA, Andrius Pierre Attending Unavailable Debra SIERRA, Andrius Pierre Attending Unavailable Debra SIERRA, Najma Jay Attending Unavailable FRANCOISE BARNES Attending Unavailable HEMFRANCOISE HUMPHREY Attending Unavailable OSMELGERMAINE RAHMAN Attending Unavailable HEMFRANCOISE HUMPHREY Attending Unavailable HEMMERFRANCOISE Attending Unavailable MATTHEW BANGURA Attending Unavailable ESPERANZA, DANUTA F Referring Unavailable ESPERANZA, DANUTA F Primary Care Unavailable ESPERANZA, DANUTA F Referring Unavailable ESPERANZA, DANUTA F Primary Care Unavailable ESPERANZA, DANUTA F Referring Unavailable ESPERANZA, DANUTA F Primary Care Unavailable ESPERANZA, DANUTA F Referring Unavailable ESPERANZA, DANUTA F Primary Care Unavailable ESPERANZA, DANUTA F Referring Unavailable ESPERANZA, DANUTA F Primary Care Unavailable ESPERANZA, DANUTA F Referring Unavailable ESPERANZA, DANUTA F Primary Care Unavailable ESPERANZA, DANUTA F Referring Unavailable ESPERANZA, DANUTA F Primary Care Unavailable Simona Szymanski E Admitting Unavailable Stephon, Simona E Attending Unavailable NON STAFF Primary Care Unavailable Jamey Morgan Admitting Unavailab le Jamey Morgan Attending Unavailab le NON STAFF Primary Care Unavailable Allergies Allergy Classification Reported Allergen(s) Allergy Type Date of Onset Reaction(s) Facility (1 source) Cephalexin; Translations: [Keflex] Drug Allergy [facility] Repository (6 sources) Clindamycin; Translations: [clindamycin] Drug Allergy 5 [facility] Repository (7 sources) Codeine; Translations: [codeine] Drug Allergy 5 [facility] Repository (1 source) NSAIDs; Translations: [NSAIDs] Propensity to adverse reactions (disorder) [facility] Repository (5 sources) Penicillins; Translations: [penicillins] Propensity to adverse reactions (disorder) 5 [facility] Repository (1 source) Sulfonamides (Antibiotic); Translations: [sulfa drugs] Propensity to adverse reactions (disorder) [facility] Repository (1 source) alot of ATB's, I dont know names; Translations: [alot of ATB's, I dont know names] Propensity to adverse reactions (disorder) [facility] Repository (1 source) Penicillin Drug Allergy [facility] Repository (1 source) Sulfonamides (Antibiotic) Drug allergy (disorder) [facility] Repository (4 sources) Sulfonamides (Antibiotic); Translations: [SULFA (SULFONAMIDE ANTIBIOTICS)] Allergy to substance 5 [facility] (4 sources) erythromycin base; Translations: [ERYTHROMYCIN BASE] Allergy to substance 7 Rash [facility] (2 sources) Bacitracin / Polymyxin B; Translations: [BACITRACIN-POLYM YXIN B] Drug Allergy 3 [facility] Work Phone: (2 sources) Ciprofloxacin; Translations: [CIPROFLOXACIN] Drug Allergy 5 Rash [facility] (2 sources) Erythromycin; Translations: [ERYTHROMYCIN] Drug [facility]ergy [facility] ([facility] source) Penicillin G Drug Allergy 3 [facility] (1 source) Sulfonamides (Antibiotic) Drug Allergy 5 [facility] (2 sources) Soap; Translations: [SOAP] Allergy to substance 7 Swelling [facility] (1 source) Grass pollen; Translations: [GRASS POLLEN] [...] evening. Take with meals. 0 04/25/2023 Active [id number] 200 actuat albuterol 0.09 mg/actuat metered dose [...] once daily cholecalciferol (Vitamin D-3) 250 MCG (54533 UT) capsule Indications: Vitamin D deficiency Take 1 capsule (250 mcg) by mouth 1 (one) time each day at the same time. 90 capsule 3 02/06/2023 Active Continuous Blood Gluc Stereotyper Apprentice (FreeStyle Samreen 2 [place]) device (1 source) Start: 02-23-2023 Continuous Blood Gluc Stereotyper Apprentice (FreeStyle Samreen 2 [place]) device USE DIRECTED 0 02/23/2023 Active Continuous [...] Start: 08-15-2017 take 2 tablets by mo [facility] once daily Multivit With Min-Folic [...] (1 source) Polyene Antifungal nystatin (Mycostatin ) 307773 UNIT/GM powder Apply 1 application topically in [...] 2018 2:03pm take 1 tablet by ayla every eight hours as needed for nausea [...] [Sleep apnea, unspecified] Onset: 01-23-2023 01-23-2023 Chronic Residual codes; unclassified (1 source) Pain, unspecified; Translations: [Pain, unspecified] Onset: 12-29-2023 Episodic Unclassified (1 source) Auditory hallucinations; Translations: [...] wo conon MR lumbar spine wo con [facility] [employer] [address] [place] [address] MRI Report Signed Patient: Marilee Arriaga MR#: [id number] : 1975 Acct:[id number] Age/Sex: 47 / F ADM Date: 09/19/23 Loc: MR Room: Type: [facility] Attending Dr: Simona STOCKTON Copies to: [...] above, worst at L4-L5. Impression dictated by: Donna Hayden Jr.OArianna09/19/2023 2:27 PM Dictation Location: RADIO-PC-15 Transcribed By: BILLY 09/19/23 1427 Dictated By: Linden Beckford Jr DO 09/19/23 1412 Signed By: 09/19/23 1427 Normal [facility] XR pre/post mri xrayon 09-19 XR pre/post mri xray [facility] [employer] [address] [place] [address] XRay Report Signed Patient: Marilee Arriaga MR#: [id number] : 1975 Acct:[id number] Age/Sex: 47 / F ADM Date: 09/19/23 Loc: Room: Type: [facility] Attending Dr: Simona STOCKTON Copies to: [...] MRI. Impression dictated by: Linden Beckford Jr., D.O.09/19/2023 3:08 PM Dictation Location: RADIO-PC-15 Transcribed By: BILLY 09/19/23 1508 Dictated By: Linden Beckford Jr, DO 09/19/23 1507 Signed By: 09/19/23 1508 Normal [facility] ECHOCARDIO M/2D COMPLETEon 0 11-07-2022 ECHOCARDIO M/2D COMPLETE Patient: MARILEE ARRIAGA Exam Date: 11/07/2022 : 1975 Gender:F Ordering : DR FRANCOISE MARTINEZ Admission #: [id number] Family : Order #: [id number] CLICK HERE TO VIEW EXAM ECHOCARDIOGRAM REPORT [...] Shay Masters M.D. on 11/07/2022 at 19:16 [facility] Coding Summary.on 05-04-2022 Coding Summary. [id number] Gh0bWw+PGh lYWQ+XU8MHYIgA10uqRTxpF0TN7pCK G9CKPRKIYXQEG5DFB8xhXT2BVrnN5V ybiAv TadufZNuRC89WRn5VKT2eZyhHMjnbJ 2pgTPgM7i8MwFjPC46xP35BNgdWXYa ZuT2PtPbhtforBWg M2piJgHyoSBsHlt+PHRhYmxlIHdpZH CqZNtdRIVzMxMqkUjnYP5jZg6aWFKf LWNvbGxhcHNlOiBj v5zlYMFsMIqpNT2ntVklN8StqRX2FQ Nnx5h5Rn80gNW+QUThBLF4sSldRJvt w731EpLye4yzNZY0 fOJnTPzjZPO9A98ct1Z2GJYoVHBnYK Z8jXY7yI1dtBpplhrtW7FbmEVfPtK0 KTO9rOSygI2vxVrx pszbjK4yYzh+H53XUM3OANRWLF4PRx d9N5MoGwpfuYJ+PT54WDYhJX07yCIm qNFnz0lspCw5UsSj RAKnYCR6nEztMYyaz0GtJKMfQ69qeF Zlm8V3QDNnaOpiuUZpYrQzkQL0uT7j ONprlxfmu3vufctc Yykbr6opde64uJ36Z56dCGqbXPSvKX U4TVTqOJMlwHetec4viG9kUf6+IDxj o7inp0uhjHx2BcYq BYUkyuCymWzhGWP5h2UkVz42X5YgoD ghh1PgKwb7js90dEBbh6H6zIQ6DKju XSHkwZ8hTVieIxO0 PTGfAeTyiT94aBMfVZlyFj7zjTejrZ rmSO3wDKYyzosiNZOhuE1lDAPxzEHg hGoxJP8xZCIhwuea p292MwUrTTF8TSDwmFEeX1CfuJ6vTq QlCJInDNCyN4RwpQGkBNjvY029IHfh XtF1MVJwgeYkP4Yx OLEysNlwFvM8b4Y7Yd5Ce8ZopsajYT H1EGriCEP1CaP3VhMwGpK9W4HxKuq0 RUThsMhiMJ7uL0Mg EUDhclpojbpezPN3HDTzHJVgjT81kG TsTGvhPh3sx0T2t579LSCfJZXxcU45 Su0peJwtVKAovDER cU2oxbijk2svazpiEuXzYWReTLs5UZ z5AWKnfMrnBrCkGBZ6SrP8FXA8uXEg yW0ylNwokvcrhK9p Oyc+J78zjF6kPKV0SJN2atmuCZHjpl IfFN45HI44V4TdElfmrSFowEU+PGRp njSqjYpaDP8mOtTq a5agp6CvKEulZ5QiSTPwTOjyJzw4SD HfJKP6rHV1sK4gHAAmLWjwr2F0eJG1 O8ObyaFzml5bz1op IKClCAdiE56oiWUnr4H4KJDvgJR2PW AktAvpBdGsdZ26Xaw+XBMxbWadn7Ic Ogrvr9wyk1auuLh7 QzMuUXHjjbQvxKbfPMJ9e3JtNa43W6 1zNHcySSYfUZYtKOAlDAJijNyjmg0o gD8fMt0+PGNvbCB3 zXA2xZ8eYYDdUnF3ZJxyZ787FqCnrT PaXonuy4fmn4atsAb2PmKnPSNrivLq gRdqJWB6j0BsXz07 G00hJEfgWRNiNDSmNUVtYAFqfTaods 7ukV1xKy8+HB2sw4ruim86uJ33dUT+ OXHoSEJ0dVrhFQhq YFIifH0mUXhoAqB5BQOmEdPgfL44aY BaKOouFs1fyMhnxYbhTX9fSBVmwahq x563WeWgw7joWFSm xLZzVVbjRXF8W92jq3M7YONjSRPiJA B3xPU9oG5mhErvsukqxWZsdCxbgsEb pCydYYyfCFvgT042 DTKsuStrHtXsmAdmhjWuAkXbIEd6Q9 WmOuo8KMZlaRkwTQ0ppCQvOWjzHv4u jLuxsWpcBV9eTVNg jnqsx251JpUyv1wsTHUjaONcHVehOZ T7U56za5C6MMVhHMCeLTZ8sKP9jM3x bGlnbjogbGVmdDsg xqLohKpaUVeyPNawF409UUSehTozJt NnxpAwUELikLW1XI17TQ30mAVab9W7 tCT9Q3IsBWQvglvg vpojfLF6AJJaZAIdvR22Kp2nvUqvVh 7bUEYzLSZ0QXAnzGNdI3DgtT5rTkBn GCQmOEFfC4VwnQBi CEbyU545YWqvSeH3WESocaVqU3SiHX FhaVzwHyN9p6F8Tg0DN3H7NW84OG78 cNMpm0D8cHD1U5Hw TJRqtbnqfryzgJV7MIPpLTAufD69Ng 7ieBgwSe4tWLCjQUL6ZKHlpSWqO1Ck dQ8iJxVkZRRvDGZb O4LnzZBnWTyfI322SMkiAjK6TTNbhk YuL7LmSWYywUojYhN4w2T5Fy1BGWp5 WL11OI72xEQwz8Y6 lFY1Y5NsACNdahltenjdaXS3EGGbOC AipU11Iv8lsHutXr5lZYSnIYG2FRBy iDLcQ5GryD2yWbSn JCKsQJQbF7ShyONgKWbwE019FVevTm N4ABQmbvRyS4ZqTYCaaJexPyK4c5S0 Vh3SIFMuXB43SSR8 xJM5KO67YJ99Y6ZaTwinuUWzhEU+PH RhYmxlIHdpZHRoPScxMDAlJyBzdHls QH5oDs0dYAKbXMEu jAkybXCdBpJcf9jgHFYxJEbgLA0wiR srC1ThrFJ1CXWel0i8Tu49L41xG3Gq dXA+DWNcqUP8fNG8 zJ0rGmPmKkM9VYvxB314NxGkqKOqIp hqk5yyi5nrwRl6AyF2GJGsbsGheMhw CUR3u5WkRf70M00s KVdoPQJcLYFzOGEtGTXkgRlpgi9bbG 9wIi8+BEAbhKV7vBZ9vH8eYhAbJkC4 GTdrC282WdUjmTXc Iqrwq7kll7qecEq6EiFeBIYysbDitN slUYS4q0VuGn63R0RiqJkwn7JlEgh6 dj09mBCgl3O7aRS1 I6CeLOJovzarmDLzfOzoPX3lVPLcrr qtNJEmvR4aWDQsW7d1SnApEuN3KTja X4PdqoL4STUnsZBv UEozQHD3C65yf0A2BKTtHDHgHJM8lU D2vY2ssXhzmkltyKBwrFnxfqEmzVil EMagMYjjT685MZTo mDtpOCQeiV1fRTEhsTQxbEkoET9kPH JjxvacQmZLGIySKDUKTQ7OTSQUDcGI FR75YW75qIGgj6R3 kJP5L8KkQEVjduxltuxxjYQ5WURsST MyfM36fSFnFPerDj3ex4A4q903PDAy PVAnhX72Xe7zyKsm FTPpnCXDbV2irzsrs1wzujhtDpCnNI RmLFh8NKt1XRIvcOtbQuFkFUJ1IcO2 KLW0nGCodN2usEqx tkmymK2wJef+QLEoLxSbMEt9IAfodX Q+HCWwOGV8dTveBDxyNBUkhQ1gUHRz V9u9NmRhZoR7KFfn Y4QaCXTkjbnwPd56hQ0zJjToHwA7MB zbC7TgvuE2PMEfkAEmYTlvFEP1F77c a0W7STGjMGJcGNG3 xHI6mF6kuCgrdefzeARrtScuenLroU zjFZcmTCuaH851LRXamOjiJlF5ZHpk JCWsUB04DR92eAYg c9C6iUF4E5UrBMTukutdkykypTF8ID OaKMYwvY50vHNaOXunHm5sx3N0u531 AXNlWPEtrF74Az0i yBqzTOFylUBRrP4qcechh5ynyrjtHg CkWTNwHBd2UOj9CAFceZwzXgUzFPZ4 GgD4SUH7tOIyvL3e bFsmhhnjfG2tWpa+WfDjWNxpMC37ZU 21sKGak9W1dTQ9O9HpIRHjykzakeza tDF4FCCuDPTkzB71 gHCrCIpbSg8rk7N6w257QPGtDMEhvG 72Or4jxMuuVXRnkUCYbV3xipbcu0nb cjogIzAwMDAwMDt0 TUk4SMPqfVmaJtCpBGK8YzK9RWY1tX LlyQ4boYlaxvgtkG4xYab+UmVjdXJy cW3aOF73TJ82S2Xl PjwvdGFibGU+PHRhYmxlIHdpZHRoPS wtRJUfOeQsnDdeOV9qDt6hDSCmZLUn pZiluDAwDpWvy5jq ZUMeBQooWX2nrPqbK4NzxVV5RXYuk2 j1Pf00E90uM0HjdPA+GLIuxAE8oYN5 tN9aYtMaRqN8WLen Y578EyApnFEySvokx5wor6hwgJe2Ur GlKBPfffQolTkwSRC5h5EdJs93I98x IHdpZHRoPSIyMCUi YBPhxIljqb7ojG6tJn8+VCCztCQ0nH C0rK7pNaMdOcH1UKqdO769JsMogRQq UmxcU43vT5WutBY+ URElNmd7DAGpuOtzQQ1rlUGcABgeOk 8lOGT1MmIlQtTqZVclG4GxYAEmxvsp xxrnkKR8MXZiOKZp oC22Xj1hiLsuJi5jNFMeQXT8AIIhcW EnI7HrzO5cWiZbNZVpWZTbH0YcjBJl ICvdR769ZSwsZiQ2 OAVuxzJxK8EpKSUsdOcyPpX2d7U6Ua 3VhBwkjFXpBV6eQxNsOCh7S4FeIji6 FJJjuZrsBA1hbJTt PZzuTn3glFczuYfnTT6wGLEqzolwm3 23KvEvt9soMMNiiYAgCMnmDTY3D06r m5F1NUQnNXYqNNK7 aMX6fW8jiNwqebwafEDbhUrlcdPgzG nmDRqfSLxvT574SWOjfNvkKnARXnz5 N5QkEvv8IDXdsAsq QT8ujUXhXOmaKc1kgKpgbSfeHS0rBE Gsghvay578OcSjd5hpTATtaKKuGXdy PRX4B26bz7E0XLHl ORUnKYS0tWC5gZ4voLicfbbhxOCwfE nuwnPriRmbYFzlIBbuI102ISLkqVzj Um2JGss1B1WaHfk5 FIThwDgfND3qsSFtXIztWz0toBxhaF rcSQ3oIBNbqjhed991UuJmr0lwKIZu jGQyILkwPUO2G82h h0D7WRKgUVQjYBR4aYW3pQ3fpSxihr uwbDAcdWidcjCfuPmiAQwsTJqgZ653 IHRvcDsnPlBheWVy OjwvdGQ+LU39re19J8PcUcfhHoc4QT KfMAD4xDO5sA4fEQZgRNumm3E0eQL2 I8JymiQyzx1hb5cb YXBz (more content not included)... [facility] Consent for Treatmenton Consent for Treatment [id number]:127 [facility] Outside Records Officeon Outside Records Office [id number]:127 [facility] Physician Orderon 04-14-2022 Physician Order [id number]:127 [facility] Coding Summary.on 11-12-2021 Coding Summary. CD:[id number] Gh0bWw+PGh lYWQ+KH9BUWOsM39eeWTvbY8IB9bZY O3UMCPFZRNPOS0AYB4egAH6LJulJ1C ybiAv MofktLGyFA89OSu0GFV4aMcaNPhrcA 1haVIvR2z0WkIuXQ55nF06RLciUWFt WcB0RyCclmhrbEXh M2cmBjXmuMOnLyo+PHRhYmxlIHdpZH SyAYnnWKWfEmCwqGwgMR6eVf7bRAJa LWNvbGxhcHNlOiBj r1rhKGCnHBjuGA8ulWpzJ2KbuMK2LE Hvl7v2Mv90bWZ+JICeRXV5oVdbIJyx f624BuNit3ijPDZ6 mAGuZOurAYS2Z63tl3K6ICXaYKFuMR M6gZU1cU3shJwepnyjO0TdgEDoNbQ8 UCS9zZOwiM4zjEpm dazfnO6pMzy+M45IYG7GGTXLUY9FPq g3Y4GbPuikhTB+LK58IATrBV64yAEp oMOfz7cnsCi5DzId RGUhUGX4nFzdPNjxt6DkRHPbU45wfG Qgb5J9CKGavDpacUXwFbKeyLD7qI5f EQjirtgtx6ctlqsj Zwroq6sgna50gH02J59cVGooEHHyAT C5AESeBASfjNqlym4obL7gLf7+IDxj k4pcz3wsiQi0IhDh GQAailPtnSomLFI5x7ZqNa56F8CwhU kkq5GkTbz3xm82vXMrt4P4tWP0RQwp JKWvgE4iEFqyXtW7 GQPjIxAwzT92nYUsCSjqJb1qmBdtqT ppXM5qHXGoqkwhNIMbcS3gORTpkZQz gZkrOH8yKOBtkwgi a182AmCxRCR5KKAaxEFzV7GfwI2pAx AmTPNnOYWtN0PnxBIdHJtdE587TEcy XbM2PGPwxoGvT8Dt YFBsyVdiNtX3f3Y0Wu2Ms8BdmsmoQF D1VFxqRHQzJnG2ZzGpDxY3Y8ZdNjb7 AEVprVbpLS9oV3Qm VIGnfscnrzvzgNX5WKQnZKDtfK57jH RlOKtjFe1bw0S8d246SODqHGUttU28 Lt1jlCckWNAxnMIQ xF8setxgs9cugfcuRaYaZCCwGHa5CK d2BULqrZmnHaGzBPX0QhI0JMG1oMWw xD2yxWvdfpeaoE3m Oyc+X87ljQ2qBAV9FTS9sazsKKMmxy BhHU67UR95H7IfXpillSUniHF+PGRp rrZujTxxKV4qAcPn d7slw3AxALawQ2KcYDCiCKkmQvv3NT VtKJO5jHI5qN7jWPAkUEuqb1S4aIK9 L9ToykBxce4mv3jx LRNbAHznC96atERdw8P4JDKedYN8SX YrnUjlXzXxlT31Tje+LHTjnSlth7Cl Acepy2inc1uoxWh7 McUfETRghkRisDouOGK7j5UsXw05Y9 9gCGogVKLxHAYbHECaSDLbyPudzj6b bK6bAk2+PGNvbCB3 hAL9xP8jFSDsOdI2ZWhuA392KoFurO CaKlacc9zfa3mxxOx6GdGrFZVjqpVg bXdrRJW6i6XqGy31 T04cVDhnSLDvZIDyIIAiLMJxuPamxx 0cdS6sDl7+DQ4ki2uzma76rV66kGK+ CXUoFDQ5zTxxUHmq NUWdqB4oREaxDdF1DDSdMgWgbT38zJ VrLErqAd4crWmndNvvLS6gMOPgncol u179MvFdh8izXLPz jKSbQDvqQEA4X52cv5O2YLFnMKCkPW R0sLZ9lT8nzQtwketnuIDuzNqhwqCn hPnmAMrxBPahV544 EPVjdFwwRtHcmSfmpeXjKjBhRSn2Y8 XdAgh6PFUsbElyIB4kzBDtQDobMh8h nEnhrXbvPK9bWPYv jwhlg474NhFoa5khZIPrvCOfAOccWS P4K75in6S8OFVpQYLbOCZ8mLK4iG9y bGlnbjogbGVmdDsg nmYdyCheCHzoNRntG050YEUuqChrWq LuhnWdRJJcwDD7DK30GK05oVFzu0E9 mBX8L2FhXUHlydwd drmdoDG7BTRfZHFwbD64Jv7btGknAs 3oZFQiDSM9TNFcqZXaS6MvrA3cLwUo JCZlJINgU3LehETo PLdeR082QCpyNhO8XSUrjhEyP8XwOH HumAhaFhN5b5D6Bu3UT2R1YQ02VJ41 zSIba1Y6qKI5Y0Oo PQBgxmadzwuliNB3ULXyOLXgpY69Wb 6gnOchQy0fVOCgESN9YCJnmILyG1Ud xY5nDpOqHWLzGCGc I7BsuSYkCIiwB065SFyyTaA2AEFotb JvP8AdISWeyLupKwK0i7R0Wn5IPIg5 EN86CP57sSAtt5V0 xND3F6NjGIBnmzijppswmPR7NMVxHM VnfB12Nm8unOrwDl2aCYWwOYD8IZZu jDXcX7AmzX6yBuKr KGLoQPAwT5PabUEhPWwpY882OPpbLm H0XJEkylOwF9HyBEBkkBddVzA2a1L2 Xj0ZRQNqUS80ELT2 wIW1ON36FV98B0PmNajivKTebRU+PH RhYmxlIHdpZHRoPScxMDAlJyBzdHls AO4bJj2wXIOfCWNf uPxhcAMjWwFqx0qnNSFjPJbdXM0npN yyI3RxeSM9ZHXok4r0Gc03E36iX2Bw dXA+LKIakGO9bJJ9 iP8oZpSvNaU7UGxyP760UyTthQJeKm wwm2pkn5psmBv6FhY0ZCZrdhNbrVpt IYM6m2VbCx52J42l HAliFUCeJBKrPXVyTOVvhSlerr4ayU 9wIi8+IWSlmQQ0lYF0fR9uMuCuPuE0 HVliY381TiVgwTVi Smgos2rns5zdoVp4XgOqFQNinfXyyK xlABM1e6GoTt68Q6FzwNfhf0GaWfj1 ro28gCKef9J0gUE5 Z6SeIYPbynucnQYduRgwMT4vZTMftx adCSQqoJ3fAERdM6j3ShHrOyV4BTkx S3AmofJ8QBCcbBDo RDvvHLW5O43ac1C2BFBrCQFhJOT8gG H5xX0zqCwenlmgeEOtmKowomIwvMnp YMnlUVxtT925OHZa bYqgEKRtdU3eSCPjpUWrnYsvBO6yCC EptfifPxPWVXuTUVQMXR1JCLNZWiPS QQ17VM78nACis3E0 hTE7P4UyTUIbtvygzqbgzXK7KRIxLF YwwJ51kDFwCNgwVr1cd8B0m252HMNs CFRwmA09Px4iiPes DTVldCJQhU7cvbafh9gyerhbByJxWE TjXUt8URi9DDLuhIckHnMyWPY8VkM9 QVL2sNBxzH3ueHnp orowxT7cDsq+JUWkHiHoNZo1DXwqxW Q+ZIYmJMG8iAyzZGebQSAabP8hPNDl U6s6HcDtOiV8FZee H0UhFTGftmdbIz48jJ8iAlWzFmA5EY wgS2AjjwV2PHZjhGErXGunHZS4T68f i8X7FGWpMLBdZBX9 zFU0uI5daQssqymiwJJeqEfmanBbrI hsQFmwFTxwI766QMHzlUxrHsPjJEck PFXjXV03NP42vXEg e9E0sZD9C3UcBTFfqjyuyxkngNP1QR CdLKLxiP00lZNhVRchGg3hu3V6l827 DRDkQSYovE49Wr4a rGwoUCMxyVGLdJ8fmadzz5xhfqvaSy ZkTHClZZo3HZa6KGPhoYrdOvCzPJV3 NtY7GYP6gCJmxU4q xDxfkbrpnN7iOtw+EuRnVBeeZF93XN 56ySOai7S6yBY4C0GkJYMkeeendiyo uCG7ORTkAQShhF17 aWTjNSczEs4wd6X8o440SILhWCGkuB 25Wr6hkGxvEBOjfENXpH7ciwavw3vx cjogIzAwMDAwMDt0 RIc3OTCmzDtvGvGuJVL7WeZ2CXP7xK QiyZ0otKlpnuwxiK7yLeo+KO6aajac soE3ZM20FP80D9Vf PjwvdGFibGU+PHRhYmxlIHdpZHRoPS pnAQYsSfZbyXrlAQ7bNd5fIXOkDYAz yZquqDIsGvDez3vm ITLiDWplDA7zrBdlF2ZhgEI1LETsr0 m1Gr61Y85gH1IrfLW+STZjqGL7eMT1 wS7zDdPlXaR4BAja T763WjGpjSDoPxpdi4mjq2mfbUd6Fm VkLFDiwvFfeYcpXZJ9h2AaDy07D93g IHdpZHRoPSIyMCUi GBYxrZwhgu3amW9qVn6+UDIzgDA7pZ B6yT8vOyLfRkC8POqzJ061IaIzwLXd KgbvY78hT7NegQM+ NZAsLrk3UGUbhWboNY1daTMiGFbiOb 1dHQG6WeHkLkQtKPsqL8AaATPxtxfo zvjtgGG5TVHzRVJi kV59Tr9pmVekAl2oSGJxWTQ8BTJbmH RdP4YivJ3tQhQaAMQxOQKeG4ChtBQx ZVioK848ELhoYsJ1 JAPseiOuR2JwCEDnuRjeRfQ1x9C1Ti 6ZlXvtzGJbWS3zClBvHPc4J0QqAvz4 ZOHyoOrzJX5rfTMi QIgrNg6eiKxjqKywZW9dHJWzaiszk1 77YzEcc7upIYHrwJTpXAxuCWP2O54h q7D9HDCeJPJuVQL0 qLZ8rB7nmKykebuwdMKbfBjucpAmbD fuJGjrRKdxD067CMCnkRzeRlBLFel5 K9SdAsf6LVHgfVnd JR1qkGJjXGygYu0tyQfzrAbiDH9qMS Biqwkzk597FrYtz9htAPTnrPKqLXpq VLM7G03vo7J2TMRh DPLlFLV0pOW8xP1ynPrbicttbWIqgU inbtUdvZicUAjmCDvdF692BRIhqCpj Vp1AOtp9T3YaDur5 FVQxrFosBE3zzOQfZIhoNt0pcHmfxM ypRF8xPPXlprcpp234DaHgx3ncTBSt kNZoVGbvTHI6M71v w4Q9IDGzEXUnWVC2dAC9dW8qmXbady jjjCMbmGbodoDmdJycEFogUWaeB891 IHRvcDsnPlBheWVy OjwvdGQ+ZP10bn08L3ZpKzolJnb0FB YyLMK0rQX0bL3cVWLfZHdve2O6xNR5 S6NzlyDhsn0pp3pg YXBz (more content not included)... Normal [facility] Consent for Treatmenton 10-19 Consent for Treatment [id number] Normal [facility] Discharge Instructionson Discharge Instructions [id number] Normal [facility] ED Clinical Summaryon 2021 ED Clinical Summary [place] [id number] ED Clinical Summary Person Information Name: MARILEE ARRIAGA [facility] Age: 45 Years : 1975 Sex: Female Language: Haitian PCP: FRANCOISE GAY Marital Status: Single Visit [...] 11/05/2021 16:00:59 11/05/2021 16:00:59 11/05/2021 16:00:59 ADDRESS: [address] [place] [phone] PHYS DOC NOTES: MEDICAL INFORMATION: Prescriptions Given: New Medications [facility]/pharmacy #[id number], [address], [place] [phone], [phone] acetaminophen-hydrocodone (Tignall 325 mg-5 mg oral tablet) 1 Tablets [...] Follow up: With: Address: When: Em Mir [address] [place], [place] [phone] Business (1) In 3 days 11/08/2021 Comments: Return to the emergency room if your pain gets worse or any new symptoms. With: Address: When: FRANCOISE MOLLY [address] [place] [id number] Business (1) In 3 days DIAGNOSIS: 1:Avulsion fracture of left ankle; 2:Sprain of left foot Normal [facility] ED Note-Physicianon 11-06-19 ED Note-Physician Basic [...] and crutches was given. Patient was given Tignall in the emergency room. Will discharge patient home with Tignall and follow-up with Ortho. The OARRS report [...] Foot 3+ Views Left Medications Administered Given Tignall 5/325 Tab, 1 tab(s), Oral Disposition Plan Patient Discharge Condition Stable Discharge Disposition Discharged home Discharge Prescription List Prescriptions Tignall 325 mg-5 mg oral tablet, 1 tab(s), Oral, q6hr, PRN Follow-up With When Contact Information Em Mir In 3 days 11/08/2021 EDT [address] [place] [address]- Business (1) Additional Instructions: Return to the emergency room if your pain gets worse or any new symptoms. FRANCOISE BARNES In 3 days [address] [place] [address]- Business (1) Additional Instructions: Patient Education Crutch [...] Medications Inpatient No active inpatient medications Home Abilify Maintena Prefilled Syringe 400 mg intramuscular injection, extended release, 1, IntraMuscular, qMonth busPIRone 30 mg oral tablet, 30 mg= 1 tab(s), Oral, BID Imitrex 25 mg Tab, 25 mg= 1 tab(s), Oral, q6hr, PRN Lamictal 100 mg Tab, 100 mg= 1 tab(s), Oral, Daily Tignall 325 mg-5 mg oral tablet, 1 tab(s), Oral, q6hr, PRN ondansetron 4 mg/5 mL oral solution Prozac 20 mg Cap, 20 mg= 1 cap(s), Oral, Daily Prozac 40 mg Cap, 40 mg= 1 cap(s), Oral, Daily Qvar with Dose Counter 80 mcg/inh inhalation aerosol ranitidine 150 mg Tab, 150 mg= 1 tab(s), Oral, BID SEROquel 100 (more content not included)... Normal [facility] Comment on above: Result Comment: [...] 08/04/2001 Document Revised: 07/20/2018 Document Reviewed: 01/27/2017 [employer] Patient Education ? 2020 [employer] How to Use a Stirrup Ankle [...] the bra (more content not included)... Normal [facility] ED Patient Summaryon 022 ED Patient Summary [place] [id number] Patient Discharge Instructions Person Information Name: MARILEE ARRIAGA Age: 45 Years Arrival Date: 11/05/2021 13:19:01 Discharge Diagnosis: 1:Avulsion fracture of left ankle; 2:Sprain of left foot Primary Care Physician: FRANCOISE GAY Provider Information Primary Provider: Tyler Petersen M.D. Advanced Safety Advisor:None The exam and treatment you received in the Emergency Department were for an urgent problem and are not intended as complete care. It is important that you follow up with a doctor, nurse practitioner, or physician?s product development assistant for ongoing care. If your symptoms [...] Follow-up Instructions: With: Address: When: Em Mir [address] [place], [place] [phone] Business (1) In 3 days 11/08/2021 Comments: Return to the emergency room if your pain gets worse or any new symptoms. With: Address: When: FRANCOISE BARNES [address] [place] [phone] Business (1) In 3 days In the [...] opioids can be used to help relieve vezepjif-cc-dknbsz pain and are often prescribed following a [...] Administration (www.fd (more content not included)... Normal [facility] XR Ankle 3+ Views Lefton XR [...] REPORT Dictated: 11/05/2021 2:04 pm Rony Barnett MD. Signed (Electronic Signature): 11/05/2021 2:04 pm Signed by: Rony Barnett MD Transcribed by: KAIDEN Technologist: Normal [facility] XR Foot 3+ Views Lefton 10-19 XR Foot 3+ Views Left Exam Date/Time: 11/05/2021 13:50 EDT Reason for Exam: Fall Report Refer to concurrent left ankle radiograph dictation. FINAL REPORT Dictated: 11/05/2021 2:04 pm Rony Barnett MD Signed (Electronic Signature): 11/05/2021 2:04 pm Signed by: Rony Barnett MD Transcribed by: KAIDEN Technologist: Normal [facility] MRI BRAIN W WO CONTRASTon MRI [...] by:SUMANTH Garciaigned by:Margo Mendez MD02/13/18inal result Normal [facility] CNDSon 02-16-2017 CN HNO ID: [id number] thor: Mark Anthony (Romain) AdenugaService: General SurgeryAuthor Type: ResidentType: Discharge SummariesFiled: 02/16/2017 11:44 AMNote Text:[facility] [place] [id number] or ([phone]) [facility] O N F I D E N T I A L I N F O R M A T I O N -----[facility] DOCUMENTDISCHARGE SUMMARYPatient Name: Marilee Buckner Date: 02/13/2017Discharge Date: 02/16/2017Attending Physician: DENIZ Pfeifferrincipal Diagnosis: Morbid obesitySecondary Diagnoses:Patient Active Hospital Problem List: Obesity, Class III, BMI >= 40 (morbid obesity) ([facility]) E66.01 (02/12/2017) Morbid obesity (HCC) (02/13/2017)Operations During Hospitalization:Laparoscopic Crystal en Y gastric [...] as needed.Future Appointments:Future AppointmentsDate Time Provider Department [place]02/23/2017 2:30 PM [id number] MORENO GENS A/M 03/09/2017 11:00 AM [id number], KASEY (PHD) GSPSMN GENS A/M BL03/16/2017 12:00 PM [id number] 2 GENBMI GENS A/M BLD04/06/2017 1:45 PM [id number] MORENO GENBMI GENS A/M BLD05/16/2017 10:30 AM [id number] SOTO GENBMI GENS A/M BLD05/16/2017 10:30 AM [id number] GENBMI GENS A/M BLDPatient will follow-up in clinic with Renée Moreno MD as scheduledabove, or sooner if the need arises.Electronically SIGNED by Licensed Independent Practitioner: Mark Anthony Jean MD Normal [facility] Glucose POCT ([facility], [place], [place] A Use Only)on 02-16-2017 Glucose mass conc 105 mg/dL High 65-100 [facility] Comment on above: Performed By: #### G LUPOC ####[facility] [place], [place] [phone] NURSING PROGon 02-16-2017 NURSING PROG HNO ID: [id number] thor: Lilibeth Ortega (Rn) SUNSHINE Santoservice: (none)Author Type: Registered NurseType: Nursing Progress NoteFiled: 02/16/2017 11:37 AMNote Text: Nursing Progress NotePatient Name: Marilee SmithRN: [id number] Location: [place] [address]/AY-[id number]-[id number] Da nena Note: Patient has been discharged [...] note was completed by: Lilibeth Santos RN [facility] NURSING PROG HNO ID: [id number] thor: Lilibeth Ortega (Rn) SUNSHINE Santoservice: (none)Author Type: Registered NurseType: Nursing Progress NoteFiled: 02/16/2017 10:27 AMNote Text: Nursing Progress NotePatient Name: Marilee OlivierJustinN: [id number] Location: [place] [address]/FJ-[id number]-78 Da nena Note: Doing better this am, able to take all of pills and drink theKphos, took a shower, so taking in more po, pain controlled, no emesis, nomore bloody stool, ambulating VSS, on RA, expecting to go home today,continue to monitor.This note was completed by: Lilibeth Santos RN [facility] PROGRESSon 02-16-2017 PROGRESS HNO ID: [id number] thor: Hiram (Romain) HuysService: General SurgeryAuthor Type: ResidentType: Progress NotesFiled: 02/16/2017 8:02 AMNote Text:General Surgery Progress NoteName: Marilee OlivierJustinN: [id number]: 02/16/2017SUBJECTIVESubjective: No acute events overnight. Last melenotic [...] lb) LMP 01/27/2017 SpO2 94% BMI 62.73 kg/z2Hkaboj/Output Summary (Last 24 hours) at 02/16/17 0759Last data filed at 02/16/17 0616 Gross per 24 hourIntake 290 mlOutput 950 mlNet -660 mlGeneral: NAD, alert, orientedLungs: nonlabored breathing on nasal canulaAbdomen: soft, nondistended, appropriately tender, incisions C/D/IExtremities: warm, well perfusedLabsCBCRecent Labs 02/15/1709WBC 13.80* 11.75* 15.32* 15.53*HB 10.7* 10.9* 13.5 14.7HCT 32.6* 33.8* 40.2 44.1PLT 391 368 438* 479*BMPRecent Labs 944 [id number] 141 137 137 138K 4.2 4.5 4.0 4.6CHLOR 104 99 97 97*CO2 27 25 20* 24BUN 15 8 14 19CREAT 0.78 0.71 0.74 0.84GLUC 119* 115* 96 79CA 8.1* 8.8 9.9 9.4ASSESSMENT/PLAN41 year old female with morbid obesity now POD 3 s/p lbynvhsmcmjjUffy-fp-D gastric bypass. Bloody bowel movements resolved with stable H/H.- Phase 2 bariatric diet- Heplock IV- Wean O2- PO pain meds, hold toradol- Will discuss resuming DVT prophylaxis- Encourage incentive spirometry and ambulation- Anticipate discharge today on home Richelle Gordon MDEast [facility] Surgery ResidentPager [phone] Normal [facility] Basic Metabolic Panlon 02-15 Anion gap 10 mmol/L Normal 9-18 [facility] Comment on above: Performed By: #### B MP, MG1, PHOS ####[place] [phone] Calcium 8.1 mg/dL Low 8.5-10.5 [facility] Comment on above: Performed By: #### B MP, MG1, PHOS ####[place] [phone] Chloride 104 mmol/L Normal 98-110 [facility] Comment on above: Performed By: #### B MP, MG1, PHOS ####[place] [phone] CO2 27 mmol/L Normal 23-32 [facility] Comment on above: Performed By: #### B MP, MG1, PHOS ####[place] [phone] Creatinine 0.78 mg/dL Normal 0.70-1.40 [facility] Comment on above: Performed By: #### B MP, MG1, PHOS ####[place] [phone] eGFR (non-black) mL/min/{1.73_m2} Normal >60 [facility] Comment on above: Performed By: #### B MP, MG1, PHOS ####[place] [phone] Glucose mass conc 119 mg/dL High 65-100 [facility] Comment on above: Performed By: #### B MP, MG1, PHOS ####[place] [phone] Potassium molar conc 4.2 mmol/L Normal 3.5-5.0 [facility] Comment on above: Performed By: #### B MP, MG1, PHOS ####[place] [phone] Sodium 141 mmol/L Normal 132-148 [facility] Comment on above: Performed By: #### B VIANCA, MG1, PHOS ####[place] [phone] Urea nitrogen 15 mg/dL Normal 8-25 [facility] Comment on above: Performed By: #### B VIANCA, MG1, PHOS ####[place] [phone] CBCon 02-15-2017 Erythrocyte distribution width Auto Ratio (RBC) 12.9 % Normal 11.5-15.0 [facility] Comment on above: Performed By: #### C BC ####[place] [phone] Erythrocytes (RBC) 3.63 10*6/uL Low 3.90-5.20 [facility] Comment on above: Performed By: #### C BC ####[place] [phone] Hematocrit (HCT) 33.8 % Low 36.0-46.0 [facility] Comment on above: Performed By: #### C BC ####[place] [phone] Hemoglobin mass conc (Bld) 10.9 g/dL Low 11.5-15.5 [facility] Comment on above: Performed By: #### C BC ####[place] [phone] MCH 30.0 pG Normal 26.0-34.0 [facility] Comment on above: Performed By: #### C BC ####[place] [phone] MCHC mass conc (RBC) 32.2 g/dL Normal 30.5-36.0 [facility] Comment on above: Performed By: #### C BC ####[place] [phone] MCV 93.1 fL Normal 80.0-100.0 [facility] Comment on above: Performed By: #### C BC ####[place] [phone] Platelet mean volume (PMV) 8.5 fL Low 9.0-12.7 [facility] Comment on above: Performed By: #### C BC ####[place] [phone] Platelets 368 10*3/uL Normal 150-400 [facility] Comment on above: Performed By: #### C BC ####[place] [phone] WBC (Leukocytes) 11.75 10*3/uL High 3.70-11.00 [facility] Comment on above: Performed By: #### C BC ####[place] [phone] CBC and Differentialon 02-15 Abs Baso 0.02 k/uL Normal 0.00-0.10 [facility] Comment on above: Performed By: #### C BCDIF ####[place] [phone] Abs Imperial 0.97 k/uL High 0.00-0.86 [facility] Comment on above: Performed By: #### C BCDIF ####[address] Abs Neut 8.11 k/uL High 1.45-7.50 [facility] Comment on above: Performed By: #### C BCDIF ####[place] [address] Basophils/100 WBC Auto (Bld) 0.1 % Normal [facility] Comment on above: Performed By: #### C BCDIF ####[place] [address] DTYPE Auto Diff Normal [facility] Comment on above: Performed By: #### C BCDIF ####[place] [address] Eosinophils 0.35 10*3/uL Normal 0.00-0.45 [facility] Comment on above: Performed By: #### C BCDIF ####[address] Eosinophils/100 leukocytes 2.5 % Normal [facility] Comment on above: Performed By: #### C BCDIF ####[address] Erythrocyte distribution width Auto Ratio (RBC) 13.1 % Normal 11.5-15.0 [facility] Comment on above: Performed By: #### C BCDIF ####[address] Erythrocytes (RBC) 3.51 10*6/uL Low 3.90-5.20 [facility] Comment on above: Performed By: #### C BCDIF ####[place] [phone] Hematocrit (HCT) 32.6 % Low 36.0-46.0 [facility] Comment on above: Performed By: #### C BCDIF ####[place] [phone] Hemoglobin mass conc (Bld) 10.7 g/dL Low 11.5-15.5 [facility] Comment on above: Performed By: #### C BCDIF ####[place] [phone] Lymphocytes 4.35 10*3/uL High 1.00-4.00 [facility] Comment on above: Performed By: #### C BCDIF ####[place] [phone] Lymphocytes/100 leukocytes 31.5 % Normal [facility] Comment on above: Performed By: #### C BCDIF ####[place] [phone] MCH 30.5 pG Normal 26.0-34.0 [facility] Comment on above: Performed By: #### C BCDIF ####[place] [phone] MCHC mass conc (RBC) 32.8 g/dL Normal 30.5-36.0 [facility] Comment on above: Performed By: #### C BCDIF ####[phone] MCV 92.9 fL Normal 80.0-100.0 [facility] Comment on above: Performed By: #### C BCDIF ####[place] [phone] Monocytes/100 leukocytes 7.0 % Normal [facility] Comment on above: Performed By: #### C BCDIF ####[place] [phone] Neutrophils/100 WBC Auto (Bld) 58.9 % Normal [facility] Comment on above: Performed By: #### C BCDIF ####[place] [phone] Platelet mean volume (PMV) 8.3 fL Low 9.0-12.7 [facility] Comment on above: Performed By: #### C BCDIF ####[place] [phone] Platelets 391 10*3/uL Normal 150-400 [facility] Comment on above: Performed By: #### C BCDIF ####[facility] [place] [phone] WBC (Leukocytes) 13.80 10*3/uL High 3.70-11.00 [facility] Comment on above: Performed By: #### C BCDIF ####[place] [phone] [place] [phone] Glucose POCT ([facility], [place], [place] A Use Only)on 02-15-2017 Glucose mass conc 111 mg/dL High 65-100 [facility] Comment on above: Performed By: #### G LUPOC ####[place] [address] Glucose mass conc 121 mg/dL High 65-100 [facility] Comment on above: Performed By: #### G LUPOC ####[place] [address] Glucose mass conc 99 mg/dL Normal 65-100 [facility] Comment on above: Performed By: #### G LUPOC ####[address] Glucose mass conc 116 mg/dL High 65-100 [facility] Comment on above: Performed By: #### G LUPOC ####[place] [phone] [place] [phone] Magnesiumon 02-15-2017 Magnesium 2.0 mg/dL Normal 1.7-2.6 [facility] Comment on above: Performed By: #### B VIANCA MG1, CLEOS ####[place] [phone] [place] [phone] NURSING PROGon 02-15-2017 NURSING PROG HNO ID: [id number] thor: Lilibeth Ortega Doroteo Randall: (none)Author Type: Registered NurseType: Nursing Progress NoteFiled: 02/15/2017 4:15 PMNote Text: Nursing Progress NotePatient Name: Marilee Grimaldo: [id number] Location: [place] [address]/RE-[id number]-63 Da nena Note: Dr called to inform that patient had another bloody stool itwas dark red, no change in vital signs HR has remained in 70's, on RA, noincrease in pain, patient is only taking sips of clears otherwiseunchanged , stable, lab orders again @ 1800.This note was completed by: Lilibeth Santos RN [facility] NURSING PRO HNO ID: [id number] thor: Lilibeth GarciaRn) Doroteo Santos: (none)Author Type: Registered NurseType: Nursing Progress NoteFiled: 02/15/2017 10:29 AMNote Text: Nursing Progress NotePatient Name: Marilee PruittN: [id number] Location: [address]/JX-UI9Q-87 [place] Note:Patient states she's feeling ok, just brought up some 'phlegm',( clearbubbles) no emesis, able to keep down 'bites' or sips of broth and tea,given IV phenergan, denies pain, encouraged to continue to ambulate,stable, call light in reach.This note was completed by: Lilibeth Santos RN [facility] NURSING PROG HNO ID: [id number] thor: Doroteo Lopez Rn: (none)Author Type: Registered NurseType: Nursing Progress NoteFiled: 02/15/2017 5:53 AMNote Text: Nursing Progress NotePatient Name: Marilee SmithRN: [id number] Location: [place] [address]/UK-XV9F-70 Surgery paged [phone] Marilee Arriaga: patient had dark bloody BM. pleaseadcherrie. Rafita, Liliana [phone] No new ordersThis note was completed by: Liliana Seth RN [facility] PROGRESSon 02-15-2017 PROGRESS HNO ID: [id number] thor: Mark Anthony (Res) AdenangyService: General SurgeryAuthor Type: ResidentType: Progress NotesFiled: 02/15/2017 8:25 AMNote Text:General SurgeryProgress notesAdmitted: 02/13/2017OR date: 02/13/2017 Procedure(s) and Anesthesia Type: * LAPAROSCOPIC GASTRIC RESTRICTIVE SURG W/ BYPASS AND CRYSTAL-EN-Y = 40 (morbid obesity) ([facility]) E66.01 (02/12/2017) Morbid obesity ([facility]) (02/13/2017)Hold Lovenox/Toradol, recheck labs, decrease IVFPain [...] RNF, potential discharge tomorrowPaul MD Ted (PGY 2)[id number] 6PM weekdays and all through weekends: [id number] SNausea and emesis yesterday, improving and PO intake improvingSlept okayDark bloody BMs this AMAmbulating well OTemp (24hrs), Av.7 ?C (98 ?F), Min:36.4 ?C (97.6 ?F), Max:36.9 ?C(98.4 ?F)BP 147/78 Pulse 80 Temp 36.4 ?C (97.6 ?F) (Oral) Resp 16 Ht 154.9cm (5' 1 ) Wt (!) 150.6 kg (332 lb) LMP 01/27/2017 SpO2 99% BMI62.73 kg/j4EABFKLF: Mild distress as actively nauseated and sitting up with vomitbag, alert and oriented x 3HEENT: NC/AT, EOM's intactRESPIRATORY: Respiratory effort unlaboredCHEST-CVS: HDSABDOMEN: Soft, obese and non distended, non tender, laparoscopic incisionsCDI with glueNEURO: Grossly non-focal02/14 07 - 02/15 0659In: 3622 [PO:300; IV:3322]Out: 2180 [Urine:1850] [facility] PROGRESS HNO ID: [id number] thor: Renée MorenoSerankitae: General SurgeryAuthor Type: PhysicianType: [...] as PO intake improvesStacy Gale Moreno MD [facility] Phosphoruson 02-15-2017 Phosphate 1.9 mg/dL Low 2.5-4.5 [facility] Comment on above: Performed By: #### B REGGIE COLEY PHOS ####[facility] [place], [place] [phone] Vital Signs Date Time Vital Sign Value Performing Clinician Mallorie daniels 09-19-2023 09:41-0500 Body height 157.48 cm [facility] 09-19-2023 09:41-0500 Body weight 104.32 kg [facility] Encounters Encounter Date Encounter Type Care Provider Facility Start: 01-08-2024 ambulatory Jamey Minor acility:[facility] Start: 01-04-2024 ambulatory [facility] Start: 12-29-2023 ambulatory [facility] Start: 2023 End: 2023 ambulatory [facility] Start: 12-12-2023 End: 12-12-2023 ambulatory GERMAINE BOLIVAR Not Available Start: 12-04-2023 End: 12-05-2023 [facility] Start: 11-21-2023 End: 11-21-2023 ambulatory FRANCOISE BARNES Not Available Start: 10-31-2023 End: 11-01-2023 ambulatory FRANCOISE BARNES Not Available Start: 10-23-2023 End: 10-24-2023 ambulatory Najma Richardson MD Facility: [facility] Start: 09-25-2023 Refill Francoise Barnes PA Work Phone: [facility] Comment on above: Chronic pain of both knees Start: 09-19-2023 End: 09-19-2023 ambulatory Simona Szymanski Facility:[facility] Start: 09-19-2023 End: 09-19-2023 ambulatory NON STAFF [facility] Work Phone: Start: 09-19-2023 End: 01-30-2024 Patient encounter procedure [facility] Work Phone: Start: 08-05-2023 End: 08-05-2023 ambulatory FRANCOISE BARNES Not Available Start: 07-26-2023 End: 07-26-2023 ambulatory FRANCOISE BARNES Not Available Start: 07-17-2023 Registered [facility] Start: 06-05-2023 End: 06-06-2023 ambulatory Najma Kilpatrickitis Facility:[facility] Start: 05-01-2023 End: 05-02-2023 ambulatory Andzaira [place] MD Facility:[facility] [place] Start: 04-03-2023 End: 04-04-2023 ambulatory Andzaira Richardson MD Facility: [place] Start: 02-27-2023 End: 02-28-2023 ambulatory Najma Richardson MD Facility: [place] Start: 02-13-2023 End: 02-14-2023 ambulatory Najma Richardson MD Facility: [facility] Start: 11-07-2022 End: 11-08-[address] FRANCOISE BARNES Facility: Start: 06-27-2022 End: 06-27-2022 ambulatory SUNSHINE Keller Facility: Start: 04-27-2022 End: 10-26-2022 ambulatory FRANCOISE BARNES Facility[place] Start: 04-22-[address] FRANCOISE BARNES Facil ity:[facility]1 Start: 11-05-2021 End: 11-05-2021 Emergency department patient visit Tyler Petersen Facility:[facility] Start: 09-18-2018 Patient encounter procedure Ida Weber Facility:[id number] Start: 05-08-2018 Patient encounter procedure Ida Weber Facility:[id number] Start: 02-13-2018 End: 02-16-2018 Ambulatory FRANCOISE BARNES [facility] Start: 12-19-2017 Patient encounter procedure Ida Weebr Facility:9122 Procedures Date Procedure Procedure Detail Performing Clinician Start: 09-19-2023 MR lumbar spine wo con Start: 09-19-2023 XR pre/post mri xray Start: 02-10-2023 Mammography Francoise MARTINEZ Work Phone: Start: 02-13-2018 Mri brain brain stem w/o w/contrast material FRANCOISE BARNES 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 Plan of Treatment Date Care Activity Detail Author Start: 02-18-2024 Influenza vaccination Influenza Vacc ine (#1) [facility] Comment on above: Postponed from 04/21 (Patient Refused) Start: 02-11-2024 Screening for malign ant neoplasm of breast Mammogram [facility] Start: 10-25-2023 End: 10-25-2023 Patient encounter procedure 10/25/2023 1:00 PM EST Office Visit [facility] [address] [place] [address] Francoise Barnes PA [address] [place] [address] [facility] Start: 12-14-2007 Screening for malign ant neoplasm of cervix [facility] Start: 1998 Screening for malign ant neoplasm of cervix Pap Smear [facility] Start: 1977 Screening for malign ant neoplasm of colon [facility] Immunizations Immunization Date Immunization Notes Care Provider Fa cili 05-30-2021 influenza, injectabl e, quadrivalent, preservative free Francoise MARTINEZ Work Phone: [facility] 05-30-2021 influenza virus vacc ine, unspecified formulation Francoise MARTINEZ Work Phone: [facility] 06-12-2020 influenza, injectabl e, quadrivalent, preservative free Francoise MARTINEZ Work Phone: [facility] 12-16-2018 tetanus toxoid, redu brina diphtheria toxoid, and acellular pertussis vaccine, adsorbed Francoise MARTINEZ Work Phone: [facility] Payers Date Payer Category Payer Self-pay [id number] 2022 Medicaid [id number] 2022 Medicaid [facility] [employer] [place] [id number] 2022-Present [address] [place] [address] [id number] 2022 Unknown 2018 Unknown [id number] 2018 Unknown [id number] 1977 Unknown [id number] 2.16.840.1.596281.3.579.2.356 1977 Unknown [id number] 2.16840.1.482326.3.579.2.356 1977 Unknown [id number] 2.16840.1.509685.3.579.2.356 1977 Unknown [id number] 2.16840.1.015987.3.579.2.727 1977 Unknown [id number] 2.16840.1.017427.3.579.2.727 1977 Unknown [id number] 2.16840.1.832354.3.579.2.593 1977 Unknown [id number] 2.16.840.1.181800.3.579.2.593 1977 Unknown [id number] 2.16840.1.767387.3.579.2.593 1977 Unknown [id number] 2.16840.1.633497.3.579.2.196 1977 Unknown [id number] 2.16840.1.710359.3.579.2.196 1977 Unknown [id number] 2.16840.1.176351.3.579.2.196 1977 Unknown [id number] 2.16840.1.463292.3.579.2.196 1977 Unknown [id number] 2.16840.1.635096.3.579.2. 1977 Unknown [id number] 2.16.840.1.342370.3.579.2. 1977 Unknown [id number] 2.16.840.1.600756.3.579.2. 1977 Unknown [id number] 2.16840.1.807042.3.579.2.1258 1977 Unknown [id number] 2.16840.1.844998.3.579.2.1258 1977 Unknown [id number] 2.840.1.021619.3.579.2.1258 1977 Unknown [id number] 2.840.1.270425.3.579.2.1258 1977 Unknown [id number] 2.0.1.251842.3.579.2.1258 1977 Unknown [id number] 2.840.1.614011.3.579.2.1285 1977 Unknown [id number] 2.0.1.276065.3.579.2.1285 1977 Unknown [id number] 2.840.1.942947.3.579.2.1285 1977 Unknown [id number] 2.0.1.996587.3.579.2.1285 1977 Unknown [id number] 2.840.1.696794.3.579.2.1285 1977 Unknown [id number] 2.840.1.347949.3.579.2.1285 1977 Unknown [id number] 2.16840.1.044999.3.579.2.128 1959 Unknown [id number] Unknown [id number] 2.16840.1.749326.3.579.2.531 Unknown [id number] 2.840.1.176432.3.579.2.531 Social History Date Type Detail Facility Tobacco smoking stat us NHIS Unknown if ever smoked [facility] Work Phone: Start: 1975 Sex Assigned At Female F [facility] Start: 09-18-2018 End: 01-23-2023 Tobacco smoking status NHIS Never smoked tobacco (finding) [facility] Start: 01-23-2023 Tobacco use and exposure Smokeless tobacco non-user [facility] Start: 07-26-2023 Alcohol intake Ex-drinker (finding) [facility] Start: 01-24-2023 End: 07-26-2023 History of Social function [facility] Start: 01-24-2023 End: 07-26-2023 Tobacco use panel [facility] Start: 04-26-2023 Alcohol Comment Caffeine intake: sod a [facility] Start: 1975 Sex Assigned At Not on file N [facility] Telephone encounter Note 09-25-2023 Telephone Encounter - MICHELLE Cao - 09/25/2023 10:06 AM EST Note Date & Type Note Facility 09-25-2023 Telephone encount er Note OARRS reviewed, Rx sent into patient's pharmacy. [facility] Note 09-25-2023 Telephone Encounter - MICHELLE Cao - 09/25/2023 10:06 AM EST Note Date & Type Note Facility 09-25-2023 Miscellaneous Notes Formattin g of this note might be different from the original. OARRS reviewed, Rx sent into patient's pharmacy. documented in this encounter [facility] Clinical Note 06-27-2022 Note Date & Type [...] authenticated by: EM LÓPEZ Date: 2022-06-27 15:38 [facility] Progress note 06-28-2021 Note Date & Type Note Facility 06-28-2021 Note HNO ID: [id number] Author: Em Fernandez, PhD Service: ? Author Type: Psychologist Type: Progress Notes Filed: 06/28/2021 2:45 PM Note Text: Received mental health records from [facility]. Note from 05/06/21 revealed pt has [...] medical records for scanning. Em Fernandez, psychologist [facility] Evaluation note Note Date & Type Note Facility Evaluation note No assessment information availa [facility] Work Phone: Evaluation note Note Date & [...] section and content) DATE CREATED AUTHOR 02/14/2018 [facility] DATE CREATED AUTHOR AUTHOR'S ORGANIZ ATION 02/16/2018 [facility] DATE CREATED AUTHOR AUTHOR'S ORGANIZ ATION 10/09/2018 [facility] DATE CREATED AUTHOR AUTHOR'S ORGANIZ ATION 10/11/2021 [facility] DATE CREATED AUTHOR AUTHOR'S ORGANIZ ATION 10/28/2022 Erik Colvin [facility] ical Center DATE CREATED AUTHOR AUTHOR'S ORGANIZ ATION 11/13/2022 [facility] [facility] DATE CREATED AUTHOR AUTHOR'S ORGANIZ ATION 2023 [facility] DATE CREATED AUTHOR AUTHOR'S ORGANIZ ATION [address] [facility] EPIC DATE CREATED AUTHOR AUTHOR'S ORGANIZ ATION 01/09/2024 [facility] DATE CREATED AUTHOR AUTHOR'S ORGANIZ ATION 01/17/2024 [facility] Goals (unrecognized section and content) [...] September 19, 2023 End: September 19, 2023 Histology Supervisor Relationship Specialty Start Date End Date Shalini Coffey MD [address] [place] [address] PCP - General Family Medicine 08/05/23 Reason [...] BE BASED ON THE PRIMARY CLINICAL RECORDS. [facility] provides no warranty or guarantee of the accuracy or completeness of information in this document.
--- NOTE | 2024-01-21 20:56 | XR_ITS ---
The [address] [address] Patient Name: NAYA ARRIAGA MRN: [id number] date: 1975 Sex: F Assigned Patient Location: ER Current Patient Location: ER Accession/Order Number: [id number] Exam Date: 01/21/2024 19:15 Report Date: 01/21/2024 21:32 At the request of: XANDER LERMA Procedure: XR ankle RT min 3V EXAM: XR ankle RT min 3V HISTORY: Atraumatic pain COMPARISON: None. TECHNIQUE: 3 views right ankle FINDINGS: Tibiotalar joint is congruent without large osteochondral defect. No acute fracture or aggressive osseous abnormality. No joint effusion. Large plantar fascial enthesophyte is noted. Mild degenerative change of the midfoot. XR/XR ankle RT min 3V IMPRESSION: No acute osseous abnormality of the right ankle. Electronically authenticated by: SARI SANTIZO Date: 01/21/2024 21:32
--- NOTE | 2024-01-21 21:27 | ED_ITS ---
HPI - Extremity Problem General Chief complaint: Extremity Problem, Nontraumatic Stated complaint: Lower Extremity Pain Time Seen by Provider: 01/21/24 20:47 Source: patient Mode of arrival: walk-in History of Present Illness HPI Narrative: 48-year-old female presents for pain in her right ankle area. She gives no history of trauma and it has been there for 2 or 3 days. She points to a small localized area just anterior to the Achilles a tendon laterally and distally. No unusual activity. Related Data Home Medications ?Medication ?Instructions ?Recorded ?Confirmed acetaminophen 650 mg 650 mg PO Q12H PRN pain 02/13/23 12/08/23 tablet,extended release (Tylenol Arthritis Pain) aripiprazole 400 mg suspension, 400 mg IM Q28D 02/13/23 12/08/23 extended rel.intramuscular syringe ([address]) buspirone 30 mg tablet 30 mg PO BID 02/13/23 12/08/23 lumateperone 10.5 mg capsule 10.5 mg PO DAILY 02/13/23 12/08/23 (Caplyta) tramadol 50 mg tablet 50 mg PO BID PRN pain 02/13/23 12/08/23 trazodone 300 mg tablet 300 mg PO DAILY PRN sleep 02/13/23 12/08/23 venlafaxine 100 mg tablet 300 mg PO DAILY 02/13/23 12/08/23 zolpidem 5 mg tablet (Ambien) 5 mg PO BEDTIME PRN sleep 02/13/23 12/08/23 tizanidine 4 mg tablet 4 mg PO BEDTIME 04/18/23 12/08/23 acarbose 25 mg tablet 25 mg PO DAILY 08/01/23 12/08/23 cholecalciferol (vitamin D3) 250 10,000 unit PO DAILY 08/01/23 12/08/23 mcg (10,000 unit) capsule hydroxyzine pamoate 25 mg capsule 25 mg PO DAILY 08/01/23 12/08/23 lamotrigine 150 mg tablet 300 mg PO DAILY 12/03/23 12/08/23 ondansetron HCl 4 mg tablet 4 mg PO Q6H PRN nausea and vomiting 12/08/23 12/08/23 Allergies Allergy/AdvReac Type Severity Reaction Status Date / Time erythromycin base Allergy Unknown Verified 12/08/23 20:00 [From E-Mycin] Penicillins Allergy Unknown Verified 12/08/23 20:00 shellfish derived Allergy Unknown Verified 12/08/23 20:00 Sulfa (Sulfonamide Allergy Unknown Verified 12/08/23 20:00 Antibiotics) codeine Allergy Verified 12/08/23 20:00 Review of Systems ROS Narrative A ten point review of systems is negative except as noted above. PFSH PFS Medical History Surgical History S/P endometrial ablation ?Z98.890 - Other specified postprocedural states (ICD-10) S/P right knee arthroscopy ?Z98.890 - Other specified postprocedural states (ICD-10) H/O gastric bypass ?Z98.84 - Bariatric surgery status (ICD-10) S/P tonsillectomy ?Z90.89 - Acquired absence of other organs (ICD-10) Social History Smoking status: Never smoker Exam Narrative Exam Narrative: Nurses note and vital signs reviewed and patient is not hypoxic. General: The patient appears well and in no apparent distress. Patient is resting comfortably on cart. Skin: Warm, dry, no pallor noted. There is no rash noted. Head: Normocephalic, atraumatic Eye: Normal conjunctiva, no drainage Ears, Nose, Mouth, and Throat: oral mucosa is moist. Nares patent. Cardiovascular: Regular Rate and Rhythm Respiratory: Patient is in no distress, no accessory muscle use, lungs are clear to auscultation, no wheezing, rales or rhonchi Back: non-tender GI: Soft and nontender Musculoskeletal: There is no swelling in the foot or the ankle. The Achilles tendon is intact. She has an area of tenderness just lateral to the Achilles tendon distally. There is no mass bruising or swelling or rash. Neurological: A&O, normal speech Psychiatric: Cooperative Constitutional Vital Signs, click to edit/add: Last Vital Signs Temp 97.8 F 01/21/24 20:47 Pulse 90 01/21/24 20:47 Resp 20 01/21/24 20:47 BP 144/109 H 01/21/24 20:47 Pulse Ox 97 01/21/24 20:47 O2 Del Method Room Air 01/21/24 20:47 Course Vital Signs Vital signs: Vital Signs Temperature 97.8 F 01/21/24 20:47 Pulse Rate 90 01/21/24 20:47 Respiratory Rate 20 01/21/24 20:47 Blood Pressure 144/109 H 01/21/24 20:47 Pulse Oximetry 97 01/21/24 20:47 Oxygen Delivery Method Room Air 01/21/24 20:47 Temperature 97.8 F 01/21/24 20:47 Pulse Rate 90 01/21/24 20:47 Respiratory Rate 20 01/21/24 20:47 Blood Pressure 144/109 H 01/21/24 20:47 Pulse Oximetry 97 01/21/24 20:47 Oxygen Delivery Method Room Air 01/21/24 20:47 MDM - Extremity (Nontraumatic) MDM Narrative Medical decision making narrative: X-ray is negative. D-dimer is slightly elevated. She was given a dose of Lovenox tonight and she is coming back at 7 AM tomorrow for venous Doppler ultrasound to rule out DVT. Treatment diagnosis and follow-up were discussed with the patient. Differential Diagnosis Differential diagnosis: Likely other (Muscle strain, tendinitis, DVT) Lab Data Labs: Lab Results 01/21/24 Range/Units 21:06 D-Dimer 0.70 H* (<=0.59) mg/L FEU Imaging Data Ankle x-ray: Radiologist's impression: ITS Impressions Ankle X-Ray 01/21/24 20:56 IMPRESSION: No acute osseous abnormality of the right ankle. Electronically authenticated by: SARI SANTIZO Date: 01/21/2024 21:32 Discharge Plan Discharge Stand Alone Forms: Portal Instructions Chief Complaint: Extremity Problem, Nontraumatic Clinical Impression: Acute ankle pain Patient Disposition: Home, Self-Care Time of Disposition Decision: 21:46 Condition: Good Mode of Transportation: Private Vehicle Prescriptions / Home Meds: No Action acarbose 25 mg tablet 25 mg PO DAILY hydroxyzine pamoate 25 mg capsule 25 mg PO DAILY cholecalciferol (vitamin D3) 250 mcg (10,000 unit) capsule 10,000 unit PO DAILY lamotrigine 150 mg tablet 300 mg PO DAILY Caplyta 10.5 mg capsule 10.5 mg PO DAILY buspirone 30 mg tablet 30 mg PO BID trazodone 300 mg tablet 300 mg PO DAILY PRN (Reason: sleep) venlafaxine 100 mg tablet 300 mg PO DAILY tramadol 50 mg tablet 50 mg PO BID PRN (Reason: pain) zolpidem [Ambien] 5 mg tablet 5 mg PO BEDTIME PRN (Reason: sleep) acetaminophen [Tylenol Arthritis Pain] 650 mg tablet extended release 650 mg PO Q12H PRN (Reason: pain) Abilify Maintena 400 mg suspension,extended rel syring 400 mg IM Q28D tizanidine 4 mg tablet 4 mg PO BEDTIME ondansetron HCl 4 mg tablet 4 mg PO Q6H PRN (Reason: nausea and vomiting) Print Language: Kazakh Instructions: Arthralgia (ED) Additional Instructions: You have an appointment at 7 AM tomorrow, Monday, January 21 for right leg ultrasound. Go to the main lobby of the [facility]. Referrals: SHWETA BARNES [Primary Care Provider] - 1 week
[2024-01-21] MEDS: ENOXAPARIN SODIUM 100 MG/ML SYRINGE SUBQ (21:54)
== END 2024-01-21 21:59 | disposition home or self-care (01) ==
PROVIDERS: Emergency Provider Emergency Medicine; PCP Physician Assistant
DX: M25.571 Pain in right ankle and joints of right foot (principal)
CPT/HCPCS: 36415; 73610; 85378; 96372; 99284

== ENCOUNTER 2024-01-22 07:10 | Outpatient (OUT) | payer MEDICAID, SELFPAY ==
--- OUTSIDE RECORDS SUMMARY | 2024-01-22 07:14 | XMS_ITS | CCD ---
Author Organization [facility] CliniSymo Care Team Providers Care Software Engineer Mobile Name Role Phone FRANCOISE BARNES Unavailable Unavailable [...] Unavailable MISC, DR SLOAN Primary Care Unavailable LILBOURN, DR EM Snyder Consulting Unavailable SUNSHINE QUARLES [...] Kapoor Attending Provider MAHIN Szymanski Attending Provider [phone] Shalini Coffey MD Primary Care Provider Debra [...] ESPERANZA, DANUTA F Primary Care Unavailable ESPERANZA, DANTUA F Referring Unavailable ESPERANZA, DANUTA F Primary [...] (1 source) Cephalexin; Translations: [Keflex] Drug Allergy [facility] Repository (6 sources) Clindamycin; Translations: [clindamycin] Drug Allergy 5 [facility] Repository (7 sources) Codeine; Translations: [codeine] Drug Allergy 5 [facility] Repository (1 source) NSAIDs; Translations: [NSAIDs] Propensity to adverse reactions (disorder) [facility] Repository (5 sources) Penicillins; Translations: [penicillins] Propensity to adverse reactions (disorder) 5 [facility] Repository (1 source) Sulfonamides (Antibiotic); Translations: [sulfa drugs] Propensity to adverse reactions (disorder) [facility] Repository (1 source) alot of ATB's, I dont know names; Translations: [alot of ATB's, I dont know names] Propensity to adverse reactions (disorder) [facility] Repository (1 source) Penicillin Drug Allergy [facility] Repository (1 source) Sulfonamides (Antibiotic) Drug allergy (disorder) [facility] Repository (4 sources) Sulfonamides (Antibiotic); Translations: [SULFA (SULFONAMIDE ANTIBIOTICS)] Allergy to substance 5 [facility] (4 sources) erythromycin base; Translations: [ERYTHROMYCIN BASE] Allergy to substance 7 [facility] (2 sources) Bacitracin / Polymyxin B; Translations: [BACITRACIN-POLYM YXIN B] Drug Allergy 3 [facility] Work Phone: (2 sources) Ciprofloxacin; Translations: [CIPROFLOXACIN] Drug Allergy 5 [facility] (2 sources) Erythromycin; Translations: [ERYTHROMYCIN] Drug [facility] ([facility]) Penicillin G Drug Allergy 3 [facility] (1 source) Sulfonamides (Antibiotic) Drug Allergy 5 [facility] (2 sources) Soap; Translations: [SOAP] Allergy to substance 7 Sw[facility] (1 source) Grass pollen; Translations: [GRASS POLLEN] [...] evening. Take with meals. 0 04/25/2023 Active [id number] 200 actuat albuterol 0.09 mg/actuat metered dose [...] once daily cholecalciferol (Vitamin D-3) 250 MCG (90923 UT) capsule Indications: Vitamin D deficiency Take 1 capsule (250 mcg) by mouth 1 (one) time each day at the same time. 90 capsule 3 02/06/2023 Active Continuous Blood Gluc Formwork Carpenter (FreeStyle Samreen 2 [place]) device (1 source) Start: 02-23-2023 Continuous Blood Gluc Formwork Carpenter (FreeStyle Samreen 2 [place]) device USE DIRECTED 0 02/23/2023 Active Continuous [...] Start: 08-15-2017 take 2 tablets by mo [facility] once daily Multivit With [...] (1 source) Polyene Antifungal nystatin (Mycostatin ) 362991 UNIT/GM powder Apply 1 application topically in [...] wo conon MR lumbar spine wo con [facility] [place] [address] [place] [address] MRI Report Signed Patient: Marilee Arriaga MR#: [id number] : 1975 Acct:[id number] Age/Sex: 47 / F ADM Date: 09/19/23 Loc: MR Room: Type: [facility] Attending Dr: Simona STOCKTON Copies to: [...] [id number] Signed By: 09/19/23 1427 Normal [facility] XR pre/post mri xrayon 09-19 XR pre/post mri xray [facility] [place] [address] [place] [address] XRay Report Signed Patient: Marilee Arriaga MR#: [id number] : 1975 Acct:[id number] Age/Sex: 47 / F ADM Date: 09/19/23 Loc: Room: Type: [facility] Attending Dr: Simona STOCKTON Copies to: [...] [id number] Signed By: 09/19/23 1508 Normal [facility] ECHOCARDIO M/2D COMPLETEon 0 11-07-2022 ECHOCARDIO M/2D COMPLETE Patient: MARILEE ARRIAGA Exam Date: 11/07/2022 : 1975 Gender:F Ordering : DR FRANCOISE MARTINEZ Admission #: [id number] Family : Order #: [id number] CLICK HERE TO VIEW EXAM ECHOCARDIOGRAM REPORT [...] Shay Masters M.D. on 11/07/2022 at 19:16 [facility] Coding Summary.on 05-04-2022 Coding Summary. CD:[id number] Gh0bWw+PGh lYWQ+VM9DPPUtY61znJUouV8EG3uQN B7LHCXESTSYEC9EGG9dlGF6XVgwO0P ybiAv QzrspEJfHP14TWe6KZT4mQbmUPvgdW 9hlCFvA0a3TfJmKM98nO83HSloQAUw SlL5SzUsndijhZQa Q2swCmBsuKAeIvc+PHRhYmxlIHdpZH TsTQgtYMVsMlNhoOuxVJ9xQa9fZNDe LWNvbGxhcHNlOiBj f0umIYQaHCbpQC9tqDhiU1MudEQ8DD Mrc7s7Gq24kON+PZXzOMJ6aLrbYYup y279YpXfl0noFDX2 wBMgMIcxXKT4U37rn2T5TDWuYMXhFG V2fYP1bA2agNstpensT5VfqDWcFvC8 SHM1oTLkqH9hyAlx setytO6mJjc+F80IXB9YTFKDSX3RLl v8U0YpDhxbfJD+GZ30KZGnRT00pTTf nRNvu2diuAh6NeUk DBAzMCW4mIrmTJfxr1PnRWYeX02xwW Aun9W6LXWwpUbywIGmCzFotYE3sO5y XRqwnjhuz7yhxwzh Oritp8cara57fE71W06vJYteDLWoKL Q7TJOxHKSzmOacgb5qvX2gXq4+IDxj m1nrk1frqEf6KnSa OAOcdeVwyQceCQV9g4KgTb20V6LlrD xyf7JiOlc8bo82oVKtf6A4cWG0VKol VZQxaC9fVUcbTgY9 HZHmBdUtyQ30iGOnWJcyYt3xtPjknR foXK8dKXOxveyhGDBplO2wBMDfcBPe eMqvLT6pBJHkaxbp l795XpSjGCT8RAYvgNHqH6HgaJ1yGa GsPDVjTSInL1HswULbHNntP598NVtl EzE3VEJyouNqX0Lp FKLuqFikIcW1w9I6Rt2Sp4XjpytiSI F3GLwgZAN4YdC1PtBxQuK6H7FwVwq0 XOTaiJfxKF2yG1Lu XKGtzkdwkslwkRP4VTJvSPYpxD95qI QlBWimWd1yn6B6m619NTZgRWPwvX86 Da0keDscMXPuwGVW oN3naonqh4zvynyyQtYhLRDcUIo1NS r6YLVqaUucRkLfEMR2RuU1FQX4vZSx tM0khUlnrfgvbE1t Oyc+G52ezB3sLJA2RQS1kbnrSAQhpi VvJK92BH52Q4HwKrvcrFMgwAI+PGRp woWdjDjzRF9bBjDl j0pex5SjHLtrC3PhYOXiKJuxOkg5IP SoIXF7vXU2cT2bRUErESgob5R5hVD6 R7GvgzJalw2af0sa HFKjDLqsW55raVKpr0C7OGRgkTW1CM KzrOgzSvNtlO33Ooc+MZKkbOxki8Mo Tyqww3emq1doqLz2 NhNiWIDyxlXvlBakDVO1y3ZuVj68O1 0aXLkqPPMyPJPkOWVyJRLhpOtijh7s lE8mTq1+PGNvbCB3 aME9xY1bZRJpOnC0JWwlQ166KdUoqE VtQuswa3npe7faaHs4ItTjEFWzykRt xMnyFDK8b7WqNj10 W11aFZziZPUaVGBoIEMvCLCwrSnaah 9rwX7rAf2+DK7yh2isxl63eS48qJG+ WWNdQEL2nFzgGEzq ICAeuB6lHMvvKoG2RBBnHvZkbH00tV TrMEksBe3tpFkfjUrhLW0jTCOafzvt i073GyHnu0jlSDJh rXBvGZnlYTR5T57hy3G5HNCzWEAtTX A1xTC1uK2gdZkofvxcvKZydRranwDj gAzrBMkpUNvzS426 YXLbaFijGgFegUjlceOcUsDsJYq4G5 XwTws3YFJwdOfyWX3cvOBjGWmjPf6o pWomcPosJE5nISLu ntyow210JjYfo3kaWDLgaWEoZRzgGF H4A58rx1P4ZDXkFLTrPWM8iES9eK4q bGlnbjogbGVmdDsg poMgxCyfZLlqBXthF086MFGmaFiaUo ZxsnPeBHWqgJR9HS95QK88yNMii8F2 iRS6K3SfKPUuqhcq xtasqMY6ZKAuVWSxtW62Qf5hfHnxZu 0gYBGvLHF3HUSgvDOwF3EgwZ6qRlPy ISAgUDZaL2SrtHUu AImmG992UPfzNfR7CXBgomZaF0EzPG NyvBpyEqL3a6I9Hp7BA2I7AB17AY20 bJMzw6P7tIT0A6Px HUKsttjhouwizSY9TPLpVWHnrA32Qs 2rnZwlNg6hKWUsXHP2TZOabWKqO6Ut iC1fWyEaTLWmJTGh U7CiwNCnUPgtY603DWnlJkO7YCZxoy UoS1PjPPIoyUhhVzZ8h1X0Gi1WRJy5 PA84GZ26sGDwu7H2 bZD9W9NlMCMovhzjyxvoiTK8HOItAE RrbK17Hj4nbJomRd3uHFJzKUD1YVIo kOXrD5OtwN1jNkAq IJItRSXjN4RegOZhQHehS097BRbfJy Q1TBAeczHqB5UsSRCrtJokFqF4j0A4 Yh0WEYSoTH79HFV5 iKO1EU23ZP60S5CaNdlsrMFtbFS+PH RhYmxlIHdpZHRoPScxMDAlJyBzdHls EV5wKj2rIVRmSXPh wFxrsFYdVoEdz9pzNGLsLMrzSI5vzB bcI0AigKI2FDPpk9t7Cu66J78rS6Zb dXA+VYMwtPC5uJB6 gM1nNvMlBmY2QZsgK943MiStlRXyNi qji9vyw1tndOy6IdB3UQCfsnLxdShe CVM5v3KsAv73G94j FEleHLYrARYpPKMsXBFrmLlxnp9zgT 9wIi8+SJPrxKD8zHA0tC9aBsJfVrZ3 LRacX685DhCklIAp Fialw8zho8cycWe4YsOeXLKmktOtqN hvDAK4l6BqCg67S2PatWiyh0HvCqk2 yu30jODdc8B4rJR1 Y0LnJNKnbdxmhIDumGdtSN3iLUEtyf zsHLOwwF1fEPAqA7n5IwIbSvP0WOtq X2JuxgW5UTHmqPBg PYmkBBA8S29zq9Y5INQlSOMaDIJ7rC B5vJ2fvOifjrmoyPFvlJntzzDwmZel NZhyUYzhY897BALp lPctXCOdbO7tVIMijGDagPkrPR3rXG ZlgibkAyGDGArPKUPKZQ2VYOXVNtLB VP21AL98vLKun3U3 kEM0N6LkJLVpbmaqrexbdUR8KJQkBX WcaV02oTSwFPzfSf4yu5R6t740AARx YGQhlJ78Mi8klMof YZMvgJFZxJ4aucfmf5iecgyyXuQzYD FoYDr1HNy8IVZirZcjLtMzYGN2KkR0 WMN9zMLlvY3vlDvt xlfbuF0aGet+QDRgBcHyXFm6VPzfvI Q+JOBdAQS3xEhwMWydYJMwgN3wSPSl S0v9VcXgYfE1PCjo H0XxODZuidkrNl81fQ0nWmRpStV6YH xxZ4KdpmP9FMWfcLFcHJtxIVD2F01z v6D0EHNlXPScBDO0 kJA3nH1cdGggcpuhgHKoqBujfiLdbT tmMUprMWgqU774MHPkhSboQvP7LBgf KHVeNQ85PX84qSNq i5O0gLO1K9NnURNsopytkxszvSH0MK TzEYWbnI42pXPhGUfzGw0bz5C6z141 LYJmAZCroH32Qg6x gBkiPPJirREGvQ4ttimii0gxudfoNu VtAKJfHCl1CZw1OZGlhThlSvHrVCL8 OsR7ZQO6mSPacT8x iZzxsdhycM2pOuk+OlRrGUkrPB22DY 30uCNpm6W4wDB4S8NnLNFiswbrkrwg wVZ5MERdIOVhqM77 mJQrKAelJg8ma5E5f377BRYgBLTswZ 27Nd8ljOtsCQMxqNEOtF1lmmkub4ib cjogIzAwMDAwMDt0 NDy9JINsoWxeMeJeXZJ5HcL9KOK4wC WfaA7yvPhsvhoqvO8iYhw+UmVjdXJy iC2lNV00FT51F5Rk PjwvdGFibGU+PHRhYmxlIHdpZHRoPS efQOKePfAwoFytUY7lFu0cSRDfQMKx eHbtlJFzIcTfa1bz LLLuZXwsBA3wqBgvB4NpzKL1LDUtj6 j6Ml01X70pI2TzyTJ+YUIpnLV1tRU3 iS6lNjPlCyX7HGol P798EuTzhOWhScjrf2vui3nnnPq7Mg StPRHqzyEpoVfpSKL8e2EhDm24J33d IHdpZHRoPSIyMCUi MJCjcTzxwg7jxZ1mJi4+XRDvgAB1aS C1iE2fYeTgTsO6BWuxB424RaDuvMDz KyarQ84oH4CipZS+ QYEnRqp6WCEdcPlaLX4coHNqEChbQx 6nBJS9MxQnXrMhILnrE1GqHMXwfaeu ngoimLQ5VXKgPHDy jJ82Kl3wwKrpHo2gLBSqUQS8QXQxeN YcH2XswR4tVvOeOKZaVNKmJ5OxmSYg LRfzM846NCufBmO7 YBFrfgDbA7IcGWWmwSnhVaU4n5R8Io 2MjHtxnOVdMP9jQzBmWKw8Y1ZoPsv1 MLFfsRrgXR8fqOYx MIzbFh0awScllDsyDE3hNVQrqsmjt2 75SdWpx4vfXDWkgQKgPKbxNDV3Y58q z0O4WCCkABYsFSW4 yQY5bA0kmMwwgkoxbFQgdJgcgqVxgW fgVWrpAEzbB102JWRqeTibJvPMAxd8 K3NlGre5EKZueSvz DX0vvWDpEFdfLl4ycFpzcQuvIM0oVJ Uqjnbpk325IjGdj4jzDDPotCIlQItb VXG3K95cz1N9GQKs JMUmMKF7pZJ1rD4rfGukgyzufRFarW rnywJanWbmUUiiIVknA657CHZcaFmy Eh7WYxp4P9ToMoi0 HOAnjAxqVO6woJMzHItgEz4ebZingF exQW0bHAInzqhxm976OkZpa8utROIy uXUnNBcpAUS1D14c h3L9BXKwLXBbUBM2lNN9yR8ukExmfn wkjYTxcUelbrJoyQhmUFuuLZobC796 IHRvcDsnPlBheWVy OjwvdGQ+JO62rx22Z9RjGoxkNkq5GS AhKUD9uBU0fZ3aGBZxPZueu2I1xTO6 T5RkplClth0tn1bk YXBz (more content not included)... [facility] Consent for Treatmenton Consent for Treatment [id number]#1.00CD:127 [facility] Outside Records Officeon Outside Records Office [id number]#1.00CD:127 [facility] Physician Orderon 04-14-2022 Physician Order [id number]#1.00CD:127 [facility] Coding Summary.on 11-12-2021 Coding Summary. CD:[id number]:[id number] Gh0bWw+PGh lYWQ+TK7DNKPhL16koVBzvW7NC6yRS J5VEONGBWJAYG7JEX1czVN8JVqhS8C ybiAv NpypjMAdPF60DRx9SNV8pNvaDYwonW 1lgSJlJ9p0JyYaJK79xO46QVfeNQYs RtA4LqFqgmrubPVz A0enReXwmGJsGub+PHRhYmxlIHdpZH NvKLsbJCThJcMpzRmeGH9kRk7jZUTw LWNvbGxhcHNlOiBj p7znSIMhZVfpWG8ttDapH2VxjEH3JW Jqy4m4Nx47nCD+VLSmFAS8fJcwTUzp i094VrYui9hbLJK8 oIMaZWeyAXP6Y66ua5Q3NEOfDHLuEM D2nML4gB4uzKqkfecrO4WhqHUnBpC3 TRA9uLMuoN5bxUke pfptoN0lPij+G24JFG8QZUBZOV5IUy f1J9PbUobglCE+UR45HUKfCF28eONf fGQci4zdjHl5AsIf XRZdWSL6uVvnSHwkp1MjFANuN10kpK Gjt4A2ILLgkSjcrYVtRbNawVM9gB9j QGfeaaprp3nzhjpg Kkjso9rttf70uQ69W48zLZcsJWRhKM G8SELmIAHcrCapuf0trZ8fZv4+IDxj r3uda6vklLi8YaGy TSQektIhmIuwPNZ4i3HtCw49J8MalW xum9XjXxg2zm81kTLwo0Y7tYX8AErl SFOugM5pQHxvXoC6 JKWnLbKiuZ69aKFeJTzaVn5qzPntnE elPS4pLTBaisoqWZJguC5wVDTxbCKy eHnoME5eRDAlkaeq k978YxDwLFM2SKWfrVDjV3EsqT0bTc RnFOWmTKHpN0PukADdDRsnC405JFct TcA1ONEydiTxC3Gl GFNpbIdxZlQ2e4Z6Fq0Oh9VmtncySW B6NIfwFSWeSiY8CtOlXfA8K3RfRcn3 ZJQbqOtzDO6eZ6Np CFBjhbikuxtalCU4AWLzZQEkqU34iX XqUXdtGr9lh9H0f466WBNpLXOlrD35 Yl7gbPshIHUvbFCO jD2sbmcwo2uvsmnySsRzQKOiJLv4GA k2QFMejRnoOaHiVXH3OaV3DGV1uEXi sP2pvDciyjhcgE2t Oyc+S37mjG1aAWA4LCO9ortpZCFbxb OlBA77IQ49M4OzSabsoTPurXE+PGRp syOaxWhlRB4lQxCp g4mkr9FjBLvdA7QeNTAbJIqgUoe3BS KnXUV1jUR8uZ5iPGYqCTsib3A9qTB5 P8NkikQtwl1ev3zz DAKmDKeuQ56pqPOhc2Z7DOQidGL6EI NcdZkaKuIevJ38Rfq+QVIplWqfc1It Ddugm7zza3hnzEn4 SfUtPUQgbxQypElzHET8n6FfJm27K7 5mCZqnBSHrYEFmRJEgOWZzlIibhy9j xN6kNd7+PGNvbCB3 qYP8lD3jQVYrDwG9FLriZ880CbFiwV RgWtzwp5bgc4jldBa1FdApILVbarRo uDpxRBP0r2YtId68 U46lSYspWAMiGWYcSDUmHAJfxMiann 6pcD5jRn3+OT7yu8vvty83jP42yUN+ WTLlRVR5cHrgELzs BUQfvT1iKZpoZvO9YLLrKuTfiH39pE TlEWzgIq4llCgsoVpiCE7oDCIkblos h616MxKxq8kxJNKq bXBgOSieZBW6X54tc1G7ZRYvEEMdYJ G0aSA0yW5fmDoawvttgVCvaKnyyjVx tUnpHKffQWmvC910 FBNlxGuuTaFmgAeehuLcVsMiKSn1N8 WhApq6EXOfaUtnGV9dfWCrFJwtPx4s vJwxuJsqMU6pVTQi rvaxb976RaGfw4ubXVCkaYJkZMgpAH O2F90ko4Y5ECIbZWLqBHC0rWB3qW3q bGlnbjogbGVmdDsg pdWclOteSLigMPdjP880NCVlcFstUe GuviHiKUAznFB8IY90PL53wMTbk7Q2 hKA1D3ZtMESwcwtm ikgfhTG9LJKoQIRcnF99Lb5kiTdnZb 7eQIVeWBZ7NISfuGWaC5ScbE4kBwQk YGJvDOYeH8TnqNIz BAtyM258NHrcUeJ7QEVfoeJeF7ImJG JbkWbzHzM1g5A5Sl2PZ4O7EX88PT33 rQFzl3V7sOG7T2Ag XLToyhkaifgbjIM7UKFoTVDwlN32Bj 2crXxzOm5hCUXbYYE5LMBlvWRkR1Tg hH6xKfIrKRReBIUr O4ThyLReQJhoD252CNhdLvB4OOMrqq PdZ3ByTEJnnMnbIfA4n9Q8Mp8FBFk8 ZU15RR46gFOmd2L1 oBC5U1SwCJNvyvwnrqqerCJ5LVUhXW XeeW95Ni9uxErfEv9cVZZyOCG4RYKf iOVdL4CtmD1mObAg DPDzHOKzJ5CmfUWrJUjyV481WDphWe S3VTQpspJaR4TfKVAftKczLsO5f8L2 Jy9NQCKpPY65HYK7 lPF5PX18LN17F1PbGapqmCJydAP+PH RhYmxlIHdpZHRoPScxMDAlJyBzdHls TM0bKq5rYOKtODIr mFhmvFFeRqRul9muIEZqHXxqHZ2ywA zgV7VgtIQ2VMFfj9q5Et39O56pA7Zz dXA+EWYpnSC8yMF6 tU7cCrPpKfT6BGtnY623TmYazNEvIh ils5dda8buxZi7SjE9MUHzleMugRap LME5p9KzZy72S51f LNbjCPEuFQMtRAOwMLJfqCpktw4hoM 9wIi8+VDDquPI8dTJ6zQ0jFvAbKwD8 LUuwW729PeNyyYPc Akxqb3axt9kevFx6AmPvUKVkquCyyC mnKDF1j3DpEm85A0FooSksl1SoBjx2 lf07mTDao8C2mJL4 Z6YwYRLcsmbzbRDqdXovEV1uUEOlhu xpXZLeaA4zLDHoP0m4OkPpRiQ7MKsb B0DdzwD0PDOcrPJs BSnhAIU6D71jk0I7UTFcOEEwPMB4mO V9hJ7qnKacmycaxVAkvGjqwpOxuVuk FMmyEOlmZ350YMLp qDgkCKVhzZ0vOGVfrCUteGlwYP3dZV ZcnmbdPpDOEBcDSCDQTB4DYHNGVsJX MB57IP07gRJjg2C1 dXY3G9PnXPOennhdmonbgPS1YSXaRI BfkC00fYUaQFjiPk5wm8E3t401BWGv TILwkQ48Ix1pgTcn MLTabKWJxL6ijunas7tpsnwnWwWqNK MxXDl5UVz1FXQkeOsyEcKxBPJ0DcG9 WCZ5cBOxqQ0cvCzg yldiaY3eUyv+PFZvBaBjMBa1ZZwouV Q+SMMeWRK8dHjcARisMEOtyV7qXHJj A5a4RmMwDaL0FCqe X5OcQHNszcmaMx89lI2dPpJjXrJ1BI klE5ZfjbW0RBWkpQAjQFbdSGE2S93e u7A0HUWfVAPnYVU8 jAC7vS0cwSybzxmjnUCykUyeiqRyyD mtBWlcPSpjF748AJFkgTdhXqGvZGoe JXAjTI64VH04eQMv r7A0dVL1N0SjWCKncyudsgcpbWB4OV BtTURunN09gHDsMPowCf1ea1S6c683 XSMiVIQooL41Ur4y hVqsSWMejCSTgF9vbtysx4gvfoylBb JzEUMtPXw4WPh5HDIawKizInWkOVY4 GxV6AES2sKRatL8l aNarqhdesK7bYsp+DuUqBSawZY58IJ 38zCJjo1F0aHS4J9JcGXVgyloapnli jCB5MGLpQXFvmL06 uCTfADlqRi8zx2C4c742EEXaGPDsaK 66Lu8ntXecFEPbwNVYzQ5nwkqrt3ld cjogIzAwMDAwMDt0 RQg2BIChfLrbCpAxWUG9YoT4NVB1cM AgcT1mfJvdzkufeD2qGqk+MI5yiccw cbB6FI04GM95R2Zp PjwvdGFibGU+PHRhYmxlIHdpZHRoPS wxWEVnQrPwiVzqHK8vTt4uGFWeBWPb jXrftYFwDcFhd8cl ORYwFMerQL8ucFqlB2KboZP8TQXhd3 t0Lz61T26xH5WiuNO+SLSndXX7dWZ8 iY8zTrCyJpV4HVjm D871EkDgjKRlHcksi7bcr0dbxZk1Qf NtPYQmtjSfjHdfMMB2g6MdBp70O35b IHdpZHRoPSIyMCUi ELNxmGcbfs7bwT1gJo2+HXZvfZT6xO C7mE7nJrTxNpX1ZBniB089BbWfhPWy UsmfM04gK4ItkXO+ TTZwWbr1DYAfuCneIA8ttUFoJWrkCb 3nPXR9IhOmXzQgEQhiS7OnLSVezsxu vrwqpVJ5OVEoJWOe hR71Xh7bbKwwKy5uZNZaPBO5VCXkaE AcZ0OwoW1xQjHhACEmWOTmG4UitZIw OIgsU014VFkxGcN1 MSQnrgLpR6KuPYSwhMceYkA6g5F5Vf 7KyInwlPFdWE9kFnNvQWi7H4MlJkv2 ZEIhgNtvFJ6foHEx LDowWm2coOhlyKgmOJ7gYTOcrnnbf6 19ChZbw9ojHYTswLUaWTdwYMX4I83z v6E9VKWhPHJkJMV7 dPS7qV8wvDlohipynMRnlPxwwzTojH icRPdsCJjwA750PPUohYsbPaBTQwp4 Z7OzCbl5GKMkeTzt LR7xiYIfTStoQa6amAkqqHxxVK6wLI Youevme657RmWga6mzDCWofUHwTHrl RJG4I51bj6D8CJXh GVKoAFC3iHE3qZ8meWqfygbovWRlnD tyobJjjMqpAGyqRAsvV560RZEgnZjh Sl4BKuk7S5NkWhw9 IIJmrVzqJO2mjVCpGUuuXm0jrQnhsR qvGP6oPXVzapaia653PiKxi1gfYFEy iGUhZFqrBHI3P00a p9S4SWYmANRaWNT1rVF2dE0osZsgdg hboMJxuLztzfOxsYjtWKziXPyzV747 IHRvcDsnPlBheWVy OjwvdGQ+LW08fh93U0CiQswhBpx6JP FoOMW3iNY4gT3eLCNvRZjkt7W2kJG5 Q4JqdgKrdx9nu3zi YXBz (more content not included)... Normal [facility] Consent for Treatmenton 10-19 Consent for Treatment [id number]:127 Normal [facility] Discharge Instructionson Discharge Instructions [id number]:127 Normal [facility] ED Clinical Summaryon 2021 ED Clinical Summary [place] [id number] ED Clinical Summary Person Information Name: MARILEE ARRIAGA Felipa/[facility] Age: 45 Years : 1975 Sex: Female Language: Angolan PCP: FRANCOISE GAY Marital Status: Single Visit [...] 11/05/2021 16:00:59 11/05/2021 16:00:59 11/05/2021 16:00:59 ADDRESS: [address] [place] [phone] PHYS DOC NOTES: MEDICAL INFORMATION: Prescriptions Given: New Medications [facility]/pharmacy #[id number], [address], [place] [phone], [phone] acetaminophen-hydrocodone (Sapphire 325 mg-5 mg oral tablet) 1 Tablets [...] Follow up: With: Address: When: Em Mir [address] [place], [place] [phone] Business (1) In 3 days 11/08/2021 Comments: Return to the emergency room if your pain gets worse or any new symptoms. With: Address: When: FRANCOISE MOLLY [address] [place] [id number] Business (1) In 3 days DIAGNOSIS: 1:Avulsion fracture of left ankle; 2:Sprain of left foot Normal [facility] ED Note-Physicianon 11-06-19 ED Note-Physician Basic Information [...] and crutches was given. Patient was given Sapphire in the emergency room. Will discharge patient home with Sapphire and follow-up with Ortho. The OARRS report [...] Foot 3+ Views Left Medications Administered Given Sapphire 5/325 Tab, 1 tab(s), Oral Disposition Plan Patient Discharge Condition Stable Discharge Disposition Discharged home Discharge Prescription List Prescriptions Sapphire 325 mg-5 mg oral tablet, 1 tab(s), Oral, q6hr, PRN Follow-up With When Contact Information Em Mir In 3 days 11/08/2021 EDT [address] [place] [address]- Business (1) Additional Instructions: Return to the emergency room if your pain gets worse or any new symptoms. FRANCOISE BARNES In 3 days [address] [place] [address]- Business (1) Additional Instructions: Patient Education Crutch [...] Tab, 100 mg= 1 tab(s), Oral, Daily Sapphire 325 mg-5 mg oral tablet, 1 tab(s), Oral, q6hr, PRN ondansetron 4 mg/5 mL oral solution Prozac 20 mg Cap, 20 mg= 1 cap(s), Oral, Daily Prozac 40 mg Cap, 40 mg= 1 cap(s), Oral, Daily Qvar with Dose Counter 80 mcg/inh inhalation aerosol ranitidine 150 mg Tab, 150 mg= 1 tab(s), Oral, BID SEROquel 100 (more content not included)... Normal [facility] Comment on above: Result Comment: Elec tronically [...] 08/04/2001 Document Revised: 07/20/2018 Document Reviewed: 01/27/2017 [employer] Patient Education ? 2020 [employer] How to Use a Stirrup Ankle [...] the bra (more content not included)... Normal [facility] ED Patient Summaryon 022 ED Patient Summary [place] [id number] Patient Discharge Instructions Person Information Name: MARILEE ARRIAGA Age: 45 Years Arrival Date: 11/05/2021 13:19:01 Discharge Diagnosis: 1:Avulsion fracture of left ankle; 2:Sprain of left foot Primary Care Physician: FRANCOISE GAY Provider Information Primary Provider: Tyler Petersen M.D. Advanced Literature Professor:None The exam and treatment you received in the Emergency Department were for an urgent problem and are not intended as complete care. It is important that you follow up with a doctor, nurse practitioner, or physician?s bacteriology research assistant for ongoing care. If your symptoms [...] Follow-up Instructions: With: Address: When: Em Mir [address] [place], [place] [phone] Business (1) In 3 days 11/08/2021 Comments: Return to the emergency room if your pain gets worse or any new symptoms. With: Address: When: FRANCOISE BARNES [address] [place] [phone] Business (1) In 3 days In the [...] opioids can be used to help relieve egdfqrvi-sv-qzaslk pain and are often prescribed following a [...] Administration (www.fd (more content not included)... Normal [facility] XR Ankle 3+ Views Lefton XR Ankle [...] Barnett MD Transcribed by: KAIDEN Technologist: Normal [facility] XR Foot 3+ Views Lefton 10-19 XR Foot 3+ Views Left Exam Date/Time: 11/05/2021 13:50 EDT Reason for Exam: Fall Report Refer to concurrent left ankle radiograph dictation. FINAL REPORT Dictated: 11/05/2021 2:04 pm Rony Barnett MD Signed (Electronic Signature): 11/05/2021 2:04 pm Signed by: Rony Barnett MD Transcribed by: KAIDEN Technologist: Normal [facility] MRI BRAIN W WO CONTRASTon MRI BRAIN [...] by:SUMANTH Garciaigned by:Margo Mendez MD02/13/18inal result Normal [facility] CNDSon 02-16-2017 CN HNO ID: [id number] thor: [place] Anthony (Romain) AdenugaService: General SurgeryAuthor Type: ResidentType: Discharge SummariesFiled: 02/16/2017 11:44 AMNote Text:The [place] [id number] or [phone] [facility] O N F I D E N T I A L I N F O R M A T I O N -----[facility] DOCUMENTDISCHARGE SUMMARYPatient Name: Marilee Buckner Date: 02/13/2017Discharge Date: 02/16/2017Attending Physician: DENIZ Pfeifferrincipal Diagnosis: Morbid obesitySecondary Diagnoses:Patient Active Hospital Problem List: Obesity, Class III, BMI >= 40 (morbid obesity) ([facility]) E66.01 (02/12/2017) Morbid obesity (HCC) (02/13/2017)Operations During [...] as needed.Future Appointments:Future AppointmentsDate Time Provider Department [place]02/23/2017 2:30 PM [id number]-SKEUMPUIJRENÉE MORENO GENS A/M 03/09/2017 11:00 AM [id number], KASEY (PHD) GSPSMN GENS A/M BL03/16/2017 12:00 PM [id number]-SPQDUGEVIVEE 2 GENBMI GENS A/M BLD04/06/2017 1:45 PM [id number]-SHSYCORJARENÉE MORENO GENBMI GENS A/M BLD05/16/2017 10:30 AM [id number]-DGNYNLISSY SOTO GENBMI GENS A/M BLD05/16/2017 10:30 AM [id number]-OXFFLLISSY GENBMI GENS A/M BLDPatient will follow-up in clinic with Renée Moreno MD as scheduledabove, or sooner if the need arises.Electronically SIGNED by Licensed Independent Practitioner: Mark nAthony Jean MD Normal [facility] Glucose POCT ([facility] [place], [place] A Use Only)on 02-16-2017 Glucose mass conc 105 mg/dL High 65-100 [facility] [place] Comment on above: Performed By: #### G LUPOC ####[facility] [place], [place] [phone] NURSING PROGon 02-16-2017 NURSING PROG HNO ID: [id number] thor: Lilibeth Ortega (Rn) SUNSHINE Santoservice: (none)Author Type: Registered NurseType: Nursing Progress NoteFiled: 02/16/2017 11:37 AMNote Text: Nursing Progress NotePatient Name: Marilee SmithRN: [id number] Location: [place] [address]/[id number] Da enna Note: Patient has been discharged home; she [...] note was completed by: Lilibeth Santos RN [facility] NURSING PROG HNO ID: [id number] thor: Lilibeth Ortega (Rn) SUNSHINE Santoservice: (none)Author Type: Registered NurseType: Nursing Progress NoteFiled: 02/16/2017 10:27 AMNote Text: Nursing Progress NotePatient Name: Marilee OlivierJustinN: [id number] Location: [place] [address]/[id number] Da nena Note: Doing better this am, able to take all of pills and drink theKphos, took a shower, so taking in more po, pain controlled, no emesis, nomore bloody stool, ambulating VSS, on RA, expecting to go home today,continue to monitor.This note was completed by: Lilibeth Santos RN [facility] PROGRESSon 02-16-2017 PROGRESS HNO ID: [id number] thor: Hiram (Romain) HuysService: General SurgeryAuthor Type: ResidentType: Progress NotesFiled: 02/16/2017 8:02 AMNote Text:General Surgery Progress NoteName: Marilee OlivierJustinN: [id number]: 02/16/2017SUBJECTIVESubjective: No acute events overnight. Last melenotic [...] lb) LMP 01/27/2017 SpO2 94% BMI 62.73 kg/p0Civvvu/Output Summary (Last 24 hours) at 02/16/17 0759Last data filed at 02/16/17 0616 Gross per 24 hourIntake 290 mlOutput 950 mlNet -660 mlGeneral: NAD, alert, orientedLungs: nonlabored breathing on nasal canulaAbdomen: soft, nondistended, appropriately tender, incisions C/D/IExtremities: warm, well perfusedLabsCBCRecent Labs 02/15/1709WBC 13.80* 11.75* 15.32* 15.53*HB 10.7* 10.9* 13.5 14.7HCT 32.6* 33.8* 40.2 44.1PLT 391 368 438* 479*BMPRecent Labs 944 [id number] 141 137 137 138K 4.2 4.5 4.0 4.6CHLOR 104 99 97 97*CO2 27 25 20* 24BUN 15 8 14 19CREAT 0.78 0.71 0.74 0.84GLUC 119* 115* 96 79CA 8.1* 8.8 9.9 9.4ASSESSMENT/PLAN41 year old female with morbid obesity now POD 3 s/p mertgbxwhzywVztg-tz-H gastric bypass. Bloody bowel movements resolved with stable H/H.- Phase 2 bariatric diet- Heplock IV- Wean O2- PO pain meds, hold toradol- Will discuss resuming DVT prophylaxis- Encourage incentive spirometry and ambulation- Anticipate discharge today on home Richelle Gordon [facility] Surgery ResidentPager [phone] Normal [facility] Basic Metabolic Panlon 02-15 Anion gap 10 mmol/L Normal 9-18 [facility] Comment on above: Performed By: #### B MP, MG1, PHOS ####[place] [phone] Calcium 8.1 mg/dL Low 8.5-10.5 [facility] Comment on above: Performed By: #### B MP, MG1, PHOS ####[place] [phone] Chloride 104 mmol/L Normal 98-110 [facility] Comment on above: Performed By: #### B MP, MG1, PHOS ####[place] [phone] CO2 27 mmol/L Normal 23-32 [facility] Comment on above: Performed By: #### B MP, MG1, PHOS ####[place] [phone] Creatinine 0.78 mg/dL Normal 0.70-1.40 [facility] Comment on above: Performed By: #### B MP, MG1, PHOS ####[place] [phone] eGFR (non-black) mL/min/{1.73_m2} Normal >60 [facility] Comment on above: Performed By: #### B MP, MG1, PHOS ####[place] [phone] Glucose mass conc 119 mg/dL High 65-100 [facility] [place] Comment on above: Performed By: #### B MP, MG1, PHOS ####[place] [phone] Potassium molar conc 4.2 mmol/L Normal 3.5-5.0 [facility] Comment on above: Performed By: #### B MP, MG1, PHOS ####[place] [phone] Sodium 141 mmol/L Normal 132-148 [facility] Comment on above: Performed By: #### B VIANCA, MG1, PHOS ####[place] [phone] Urea nitrogen 15 mg/dL Normal 8-25 [facility] Comment on above: Performed By: #### B VIANCA, MG1, PHOS ####[place] [phone] CBCon 02-15-2017 Erythrocyte distribution width Auto Ratio (RBC) 12.9 % Normal 11.5-15.0 [facility] Comment on above: Performed By: #### C BC ####[place] [phone] Erythrocytes (RBC) 3.63 10*6/uL Low 3.90-5.20 [facility] Comment on above: Performed By: #### C BC ####[place] [phone] Hematocrit (HCT) 33.8 % Low 36.0-46.0 [facility] Comment on above: Performed By: #### C BC ####[place] [phone] Hemoglobin mass conc (Bld) 10.9 g/dL Low 11.5-15.5 [facility] Comment on above: Performed By: #### C BC ####[place] [phone] MCH 30.0 pG Normal 26.0-34.0 [facility] Comment on above: Performed By: #### C BC ####[place] [phone] MCHC mass conc (RBC) 32.2 g/dL Normal 30.5-36.0 [facility] Comment on above: Performed By: #### C BC ####[place] [phone] MCV 93.1 fL Normal 80.0-100.0 [facility] Comment on above: Performed By: #### C BC ####[place] [phone] Platelet mean volume (PMV) 8.5 fL Low 9.0-12.7 [facility] Comment on above: Performed By: #### C BC ####[place] [phone] Platelets 368 10*3/uL Normal 150-400 [facility] Comment on above: Performed By: #### C BC ####[place] [phone] WBC (Leukocytes) 11.75 10*3/uL High 3.70-11.00 [facility] [employer] [facility] Comment on above: Performed By: #### C BC ####[place] [phone] CBC and Differentialon 02-15 Abs Baso 0.02 k/uL Normal 0.00-0.10 [facility] Comment on above: Performed By: #### C BCDIF ####[place] [phone] Abs [place] 0.97 k/uL High 0.00-0.86 [facility] Comment on above: Performed By: #### C BCDIF ####[address] Abs Neut 8.11 k/uL High 1.45-7.50 [facility] Comment on above: Performed By: #### C BCDIF ####[place] [address] Basophils/100 WBC Auto (Bld) 0.1 % Normal [facility] Comment on above: Performed By: #### C BCDIF ####[place] [address] DTYPE Auto Diff Normal [facility] Comment on above: Performed By: #### C BCDIF ####[place] [address] Eosinophils 0.35 10*3/uL Normal 0.00-0.45 [facility] Comment on above: Performed By: #### C BCDIF ####[address] Eosinophils/100 leukocytes 2.5 % Normal [facility] Comment on above: Performed By: #### C BCDIF ####[address] Erythrocyte distribution width Auto Ratio (RBC) 13.1 % Normal 11.5-15.0 [facility] Comment on above: Performed By: #### C BCDIF ####[address] Erythrocytes (RBC) 3.51 10*6/uL Low 3.90-5.20 [facility] Comment on above: Performed By: #### C BCDIF ####[place] [phone] Hematocrit (HCT) 32.6 % Low 36.0-46.0 [facility] Comment on above: Performed By: #### C BCDIF ####[place] [phone] Hemoglobin mass conc (Bld) 10.7 g/dL Low 11.5-15.5 [facility] Comment on above: Performed By: #### C BCDIF ####[place] [phone] Lymphocytes 4.35 10*3/uL High 1.00-4.00 [facility] Comment on above: Performed By: #### C BCDIF ####[place] [phone] Lymphocytes/100 leukocytes 31.5 % Normal [facility] Comment on above: Performed By: #### C BCDIF ####[place] [phone] MCH 30.5 pG Normal 26.0-34.0 [facility] Comment on above: Performed By: #### C BCDIF ####[place] [phone] MCHC mass conc (RBC) 32.8 g/dL Normal 30.5-36.0 [facility] Comment on above: Performed By: #### C BCDIF ####[phone] MCV 92.9 fL Normal 80.0-100.0 [facility] Comment on above: Performed By: #### C BCDIF ####[place] [phone] Monocytes/100 leukocytes 7.0 % Normal [facility] Comment on above: Performed By: #### C BCDIF ####[place] [phone] Neutrophils/100 WBC Auto (Bld) 58.9 % Normal [facility] Comment on above: Performed By: #### C BCDIF ####[place] [phone] Platelet mean volume (PMV) 8.3 fL Low 9.0-12.7 [facility] Comment on above: Performed By: #### C BCDIF ####[place] [phone] Platelets 391 10*3/uL Normal 150-400 [facility] Comment on above: Performed By: #### C BCDIF ####[facility] [place] [phone] WBC (Leukocytes) 13.80 10*3/uL High 3.70-11.00 [facility] [employer] [facility] [employer] Comment on above: Performed By: #### C BCDIF ####[place] [phone] [place] [phone] Glucose POCT ([facility] [place], [place] A Use Only)on 02-15-2017 Glucose mass conc 111 mg/dL High 65-100 [facility] [place] Comment on above: Performed By: #### G LUPOC ####[place] [address] Glucose mass conc 121 mg/dL High 65-100 [facility] [place] Comment on above: Performed By: #### G LUPOC ####[place] [address] Glucose mass conc 99 mg/dL Normal 65-100 [facility] [place] Comment on above: Performed By: #### G LUPOC ####[address] Glucose mass conc 116 mg/dL High 65-100 [facility] [place] Comment on above: Performed By: #### G LUPOC ####[place] [phone] [place] [phone] Magnesiumon 02-15-2017 Magnesium 2.0 mg/dL Normal 1.7-2.6 [facility] Comment on above: Performed By: #### B VIANCA MG1, CLEOS ####[place] [phone] [place] [phone] NURSING PROGon 02-15-2017 NURSING PROG HNO ID: [id number] thor: Lilibeth Ortega Doroteo Randall: (none)Author Type: Registered NurseType: Nursing Progress NoteFiled: 02/15/2017 4:15 PMNote Text: Nursing Progress NotePatient Name: Marilee Grimaldo: [id number] Location: [place] [address]/[id number] Da nena Note: Dr called to inform that patient had another bloody stool itwas dark red, no change in vital signs HR has remained in 70's, on RA, noincrease in pain, patient is only taking sips of clears otherwiseunchanged , stable, lab orders again @ 1800.This note was completed by: Lilibeth Santos RN [facility] NURSING PRO HNO ID: [id number] thor: Lilibeth GarciaRn) Doroteo Santos: (none)Author Type: Registered NurseType: Nursing Progress NoteFiled: 02/15/2017 10:29 AMNote Text: Nursing Progress NotePatient Name: Marilee PruittN: [id number] Location: [address]/[id number] Da nena Note:Patient states she's feeling ok, just brought up some 'phlegm',( clearbubbles) no emesis, able to keep down 'bites' or sips of broth and tea,given IV phenergan, denies pain, encouraged to continue to ambulate,stable, call light in reach.This note was completed by: Lilibeth Santos RN [facility] NURSING PROG HNO ID: [id number] thor: Doroteo Lopez Rn: (none)Author Type: Registered NurseType: Nursing Progress NoteFiled: 02/15/2017 5:53 AMNote Text: Nursing Progress NotePatient Name: Marilee SmithRN: [id number] Location: [place] [address]/[id number] Surgery paged [phone] Marilee Arriaga: patient had dark bloody BM. pleaseadcherrie. Rafita, Liliana [phone] No new ordersThis note was completed by: Liliana Seth RN [facility] PROGRESSon 02-15-2017 PROGRESS HNO ID: [id number] thor: Mark Anthony (Res) AdenangyService: General SurgeryAuthor Type: ResidentType: Progress NotesFiled: 02/15/2017 8:25 AMNote Text:General SurgeryProgress notesAdmitted: 02/13/2017OR date: 02/13/2017 Procedure(s) and Anesthesia Type: * LAPAROSCOPIC GASTRIC RESTRICTIVE SURG W/ BYPASS AND CRYSTAL-EN-Y = 40 (morbid obesity) ([facility]) E66.01 (02/12/2017) Morbid obesity ([facility]) (02/13/2017)Hold Lovenox/Toradol, recheck labs, decrease IVFPain control: [...] RNF, potential discharge tomorrowPaul MD Ted (PGY 2)[id number] 6PM weekdays and all through weekends: [id number] SNausea and emesis yesterday, improving and PO intake improvingSlept okayDark bloody BMs this AMAmbulating well OTemp (24hrs), Av.7 ?C (98 ?F), Min:36.4 ?C (97.6 ?F), Max:36.9 ?C(98.4 ?F)BP 147/78 Pulse 80 Temp 36.4 ?C (97.6 ?F) (Oral) Resp 16 Ht 154.9cm (5' 1 ) Wt (!) 150.6 kg (332 lb) LMP 01/27/2017 SpO2 99% BMI62.73 kg/f9YPZLVXK: Mild distress as actively nauseated and sitting up with vomitbag, alert and oriented x 3HEENT: NC/AT, EOM's intactRESPIRATORY: Respiratory effort unlaboredCHEST-CVS: HDSABDOMEN: Soft, obese and non distended, non tender, laparoscopic incisionsCDI with glueNEURO: Grossly non-focal02/14 07 - 02/15 0659In: 3622 [PO:300; IV:3322]Out: 2180 [Urine:1850] [facility] PROGRESS HNO ID: [id number] thor: Renée MorenoSerankitae: General SurgeryAuthor Type: PhysicianType: [...] as PO intake improvesStacy Gale Moreno MD [facility] Phosphoruson 02-15-2017 Phosphate 1.9 mg/dL Low 2.5-4.5 [facility] Comment on above: Performed By: #### B REGGIE COLEY PHOS ####[facility] [place], [place] [phone] Vital Signs Date Time Vital Sign Value Performing Clinician Mallorie daniels 09-19-2023 09:41-0500 Body height 157.48 cm [facility] 09-19-2023 09:41-0500 Body weight 104.32 kg [facility] Encounters Encounter Date Encounter Type Care Provider Facility Start: 01-08-2024 ambulatory [facility] Start: 01-04-2024 ambulatory [facility] Start: 12-29-2023 ambulatory [facility] Start: 2023 End: 2023 ambulatory [facility] Start: 12-12-2023 End: 12-12-2023 ambulatory GERMAINE BOLIVAR Not Available Start: 12-04-2023 End: 12-05-2023 [facility]ulatory [facility] Start: 11-21-2023 End: 11-21-2023 ambulatory FRANCOISE BARNES Not Available Start: 10-31-2023 End: 11-01-2023 ambulatory FRANCOISE BARNES Not Available Start: 10-23-2023 End: 10-24-2023 ambulatory Najma Richardson MD Facility: [facility] Start: 09-25-2023 Refill Francoise Barnes PA Work Phone: [facility] Comment on above: Chronic pain of both knees Start: 09-19-2023 End: 09-19-2023 ambulatory Simona Szymanski Facility:[facility] Start: 09-19-2023 End: 09-19-2023 ambulatory NON STAFF [facility] Work Phone: Start: 09-19-2023 End: 01-30-2024 Patient encounter procedure [facility] [place] Work Phone: Start: 08-05-2023 End: 08-05-2023 ambulatory FRANCOISE BARNES Not Available Start: 07-26-2023 End: 07-26-2023 ambulatory FRANCOISE BARNES Not Available Start: 07-17-2023 Registered [facility] Credible Start: 06-05-2023 End: 06-06-2023 ambulatory Najma Kilpatrickitis Facility:[facility] Start: 05-01-2023 End: 05-02-2023 ambulatory Andzaira Richardson MD [facility] Start: 04-03-2023 End: 04-04-2023 ambulatory Andzaira Richardson MD Facility: [facility] Start: 02-27-2023 End: 02-28-2023 ambulatory Najma Richardson MD Facility: [facility] Start: 02-13-2023 End: 02-14-2023 ambulatory Najma Richardson MD Facility: [facility] Start: 11-07-2022 End: 11-08-[address] FRANCOISE BARNES Facility: Start: 06-27-2022 End: 06-27-2022 ambulatory SUNSHINE Keller Facility: Start: 04-27-2022 End: 10-26-2022 ambulatory FRANCOISE BARNES [facility] Start: 04-22-[address] FRANCOISE BARNES Facil ity:H1 Start: 11-05-2021 End: 11-05-2021 Emergency department patient visit Tyler Petersen Facility[facility] Start: 09-18-2018 Patient encounter procedure Ida Weber Facility:[id number] Start: 05-08-2018 Patient encounter procedure Ida Weber Facility:[id number] Start: 02-13-2018 End: 02-16-[address] [facility] Start: 12-19-2017 Patient encounter procedure Ida Weber [...] 02-18-2024 Influenza vaccination Influenza Vacc ine (#1) [facility] Comment on above: Postponed from 04/21 (Patient Refused) Start: 02-11-2024 Screening for malign ant neoplasm of breast Mammogram [facility] Start: 10-25-2023 End: 10-25-2023 Patient encounter procedure 10/25/2023 1:00 PM EST Office Visit [facility] [address] [place] [address] Francoise Barnes PA [address] [place] [address] [facility] Start: 12-14-2007 Screening for malign ant neoplasm of cervix [facility] Start: 1998 Screening for malign ant neoplasm of cervix Pap Smear [facility] Start: 1977 Screening for malign ant neoplasm of colon [facility] Immunizations Immunization Date Immunization Notes Care Provider Fa cili 05-30-2021 influenza, injectabl e, quadrivalent, preservative free Francoise MARTINEZ Work Phone: [facility] 05-30-2021 influenza virus vacc ine, unspecified formulation Francoise MARTINEZ Work Phone: [facility] 06-12-2020 influenza, injectabl e, quadrivalent, preservative free Francoise MARTINEZ Work Phone: [facility] 12-16-2018 tetanus toxoid, redu brina diphtheria toxoid, and acellular pertussis vaccine, adsorbed Francoise MARTINEZ Work Phone: [facility] Payers Date Payer Category Payer Self-pay [id number] 2022 Medicaid [id number] 2022 Medicaid [facility] ANTHEM BCBS [place]ICA[place] [id number] 2022-Present [address] [place] [address] [id number] 2022 Unknown 2018 Unknown [id number] 2018 Unknown [id number] 1977 Unknown [id number] 2.16.840.1.290790.3.579.2.356 1977 Unknown [id number] 2.16840.1.927313.3.579.2.356 1977 Unknown [id number] 2.16840.1.071767.3.579.2.356 1977 Unknown [id number] 2.16840.1.111396.3.579.2.727 1977 Unknown [id number] 2.16840.1.740167.3.579.2.727 1977 Unknown [id number] 2.16840.1.968349.3.579.2.593 1977 Unknown [id number] 2.16.840.1.951872.3.579.2.593 1977 Unknown [id number] 2.16840.1.302553.3.579.2.593 1977 Unknown [id number] 2.16840.1.757947.3.579.2.196 1977 Unknown [id number] 2.16840.1.852604.3.579.2.196 1977 Unknown [id number] 2.16840.1.677904.3.579.2.196 1977 Unknown [id number] 2.16840.1.282418.3.579.2.196 1977 Unknown [id number] 2.16840.1.616586.3.579.2. 1977 Unknown [id number] 2.16.840.1.774250.3.579.2. 1977 Unknown [id number] 2.16.840.1.472301.3.579.2. 1977 Unknown [id number] 2.16840.1.296353.3.579.2.1258 1977 Unknown [id number] 2.16840.1.734201.3.579.2.1258 1977 Unknown [id number] 2.840.1.057704.3.579.2.1258 1977 Unknown [id number] 2.840.1.848206.3.579.2.1258 1977 Unknown [id number] 2.0.1.724982.3.579.2.1258 1977 Unknown [id number] 2.840.1.725840.3.579.2.1285 1977 Unknown [id number] 2.0.1.135831.3.579.2.1285 1977 Unknown [id number] 2.840.1.961016.3.579.2.1285 1977 Unknown [id number] 2.0.1.450399.3.579.2.1285 1977 Unknown [id number] 2.840.1.042370.3.579.2.1285 1977 Unknown [id number] 2.840.1.254057.3.579.2.1285 1977 Unknown [id number] 2.16840.1.326595.3.579.2.128 1959 Unknown [id number] Unknown [id number] 2.16840.1.834089.3.579.2.531 Unknown [id number] 2.840.1.172980.3.579.2.531 Social History Date Type Detail Facility Tobacco smoking stat us NHIS Unknown if ever smoked [facility] Work Phone: Start: 1975 Sex Assigned At Female F [facility] Start: 09-18-2018 End: 01-23-2023 Tobacco smoking status NHIS Never smoked tobacco (finding) [facility] Start: 01-23-2023 Tobacco use and exposure Smokeless tobacco non-user [facility] Start: 07-26-2023 Alcohol intake Ex-drinker (finding) [facility] Start: 01-24-2023 End: 07-26-2023 History of Social function [facility] Start: 01-24-2023 End: 07-26-2023 Tobacco use panel [facility] Start: 04-26-2023 Alcohol Comment Caffeine intake: sod a [facility] Start: 1975 Sex Assigned At Not on file N [facility] Telephone encounter Note 09-25-2023 Telephone Encounter - MICHELLE Cao - 09/25/2023 10:06 AM EST Note Date & Type Note Facility 09-25-2023 Telephone encount er Note OARRS reviewed, Rx sent into patient's pharmacy. [facility] Note 09-25-2023 Telephone Encounter - MICHELLE Cao - 09/25/2023 10:06 AM EST Note Date & Type Note Facility 09-25-2023 Miscellaneous Notes Formattin g of this note might be different from the original. OARRS reviewed, Rx sent into patient's pharmacy. documented in this encounter [facility] Clinical Note 06-27-2022 Note Date & Type [...] authenticated by: EM LÓPEZ Date: 2022-06-27 15:38 [facility] Progress note 06-28-2021 Note Date & Type Note Facility 06-28-2021 Note HNO ID: [id number] Author: Em Fernandez, PhD Service: ? Author Type: Psychologist Type: Progress Notes Filed: 06/28/2021 2:45 PM Note Text: Received mental health records from [facility]. Note from 05/06/21 revealed pt has [...] medical records for scanning. Em Fernandez, psychologist [facility] Evaluation note Note Date & Type Note Facility Evaluation note No assessment information availa [facility] Work Phone: Evaluation note Note Date & [...] section and content) DATE CREATED AUTHOR 02/14/2018 [facility] DATE CREATED AUTHOR AUTHOR'S ORGANIZ ATION 02/16/2018 [facility] DATE CREATED AUTHOR AUTHOR'S ORGANIZ ATION 10/09/2018 [facility] DATE CREATED AUTHOR AUTHOR'S ORGANIZ ATION 10/11/2021 [facility] DATE CREATED AUTHOR AUTHOR'S ORGANIZ ATION 10/28/2022 Erik Col[facility] DATE CREATED AUTHOR AUTHOR'S ORGANIZ ATION 11/13/2022 [facility] DATE CREATED AUTHOR AUTHOR'S ORGANIZ ATION 2023 [facility] DATE CREATED AUTHOR AUTHOR'S ORGANIZ ATION 2023 [facility] EPIC DATE CREATED AUTHOR AUTHOR'S ORGANIZ ATION 01/09/2024 [facility] DATE CREATED AUTHOR AUTHOR'S ORGANIZ ATION 01/17/2024 [facility] y[facility] Goals (unrecognized section and content) [...] September 19, 2023 End: September 19, 2023 Software Engineer Mobile Relationship Specialty Start Date End Date Shalini Coffey MD [address] [place] [address] PCP - General Family Medicine 08/05/23 Reason [...] BE BASED ON THE PRIMARY CLINICAL RECORDS. [facility] provides no warranty or guarantee of the accuracy or completeness of information in this document.
--- NOTE | 2024-01-22 07:16 | US_ITS ---
The [place] [id number] Patient Name: NAYA ARRIAGA MRN: [id number] date: 1975 Sex: F Assigned Patient Location: US Current Patient Location: US Accession/Order Number: [id number] Exam Date: 01/22/2024 07:25 Report Date: 01/22/2024 09:04 At the request of: XANDER LERMA Procedure: US venous doppler LE RT EXAMINATION: US venous doppler LE RT HISTORY: Leg Pain, Elevated D-Dimer ; right calf pain COMPARISON: No relevant comparison available. FINDINGS: REGION: Right lower extremity THROMBI: None. COMPRESSIBILITY: Normal compressibility. FLOW: Normal waveform and antegrade flow between 5 and 20 cm/s. OTHER: None. US/US venous doppler LE RT IMPRESSION: 1. No deep vein thrombus within the right lower extremity. Electronically authenticated by: DENNIS HERNANDEZ Date: 01/22/2024 09:04
== END 2024-01-22 07:11 | disposition home or self-care (01) ==
LOC: US 07:12
PROVIDERS: PCP Physician Assistant; Visit Provider Emergency Medicine
DX: M79.661 Pain in right lower leg (principal); R79.1 Abnormal coagulation profile
CPT/HCPCS: 93971

== ENCOUNTER 2024-02-12 07:09 | Day surgery (SDC) | payer MEDICAID, SELFPAY ==
--- OUTSIDE RECORDS SUMMARY | 2024-02-12 07:11 | XMS_ITS ---
Patient Summarization (C-CDA 2.1 CCD) Created on: February 12, 2024 MARILEE ARRIAGA : 1975 Sex: Female Author Organization Sample organization Care Team Providers Care Director Hris Name Role Phone FRANCOISE BARNES Unavailable Unavailable ESPERANZA, DANUTA F Unavailable Unavailable Gus, Ida Evans Attending Unavailable Gus, Ida Evans Attending Unavailable Gus, Ida Evans Attending Unavailable HEMMERFRANCOISE Referring Unavailable HEMKAM, FRANCOISE Admitting Unavailable HEMMER, FRANCOISE Primary Care Unavailable HEMMER, FRANCOISE Attending Unavailable HajdTyler mendez Attending Unavailable HEMKAM, FRANCOISE Primary Care Unavailable TRENT ., SUNSHINE Admitting Unavailable TRENT ., SUNSHINE Attending Unavailable MISC, DR SLOAN Primary Care Unavailable METAIRIE, DR EM Snyder Consulting Unavailable TRENT Keller, [...] Care Provider UnavailMD Jamey Kapoor Attending Provider BORIS Szymanski-C Simona Sanders Attending Provider [phone] Shalini Coffey MD Primary Care Provider [phone] Debra SIERRA, Andrius Jay Attending Unavailable Debra SIERRA, Andrius Vemre Attending Unavailable Debra SIERRA, Andrius Vytadrian Attending Unavailable Debra SIERRA, Andrius Vytadrian Attending Unavailable Debra SIERRA, Andrius Vytadrian Attending Unavailable Debra SIERRA, Andrius Vytadrian Attending Unavailable Debra SIERRA, Andrius Vytadrian Attending Unavailable MATTHEW BANGURA Attending Unavailable ESPERANZA, [...] DANUTA F Primary Care Unavailable Simona Szymanski Attending Unavailable NON STAFF Primary Care Unavailable Simona Szymanski E Admitting Unavailable NON STAFF Primary Care Unavailable Jamey Morgan Admitting Unavailab le Jamey Morgan Attending Unavailab le HEMMERFRANCOISE Attending Unavailable HEMMER, FRANCOISE Del Castillo Attending Unavailable HEMMER, FRANCOISE Del Castillo Attending Unavailable OSMELGERMAINE Attending Unavailable HEMMER, FRANCOISE Del Castillo Attending Unavailable HEMMER, FRANCOISE Del Castillo Attending Unavailable HEMMER, FRANCOISE Del Castillo Attending Unavailable Allergies Allergy Classification Reported Allergen(s) Allergy Type Date of Onset Reaction(s) Facility (1 source) Cephalexin; Translations: [Keflex] Drug Allergy [facility] Repository (6 sources) Clindamycin; Translations: [clindamycin] Drug Allergy 5 [facility] Repository (7 sources) Codeine; Translations: [codeine] Drug Allergy 5 [facility] Repository (1 source) NSAIDs; Translations: [NSAIDs] Propensity to adverse reactions (disorder) [facility] Repository (5 sources) Penicillins; Translations: [penicillins] Propensity to adverse reactions (disorder) 5 [facility] Repository (1 source) Sulfonamides (Antibiotic); Translations: [sulfa drugs] Propensity to adverse reactions (disorder) [facility] Repository (1 source) alot of ATB's, I dont know names; Translations: [alot of ATB's, I dont know names] Propensity to adverse reactions (disorder) [facility] Repository (1 source) Penicillin Drug Allergy [facility] Repository (1 source) Sulfonamides (Antibiotic) Drug allergy (disorder) [facility] Repository (4 sources) Sulfonamides (Antibiotic); Translations: [SULFA (SULFONAMIDE ANTIBIOTICS)] Allergy to substance 5 [facility] (4 sources) erythromycin base; Translations: [ERYTHROMYCIN BASE] Allergy to substance 7 Rash [facility] (2 sources) Bacitracin / Polymyxin B; Translations: [BACITRACIN-POLYM YXIN B] Drug Allergy 3 [facility] Healthcare Work Phone: (2 sources) Ciprofloxacin; Translations: [CIPROFLOXACIN] Drug Allergy 5 Rash [facility] Healthcare (2 sources) Erythromycin; Translations: [ERYTHROMYCIN] Drug Allergy 5 Hives [facility] Healthcare (1 source) Penicillin G Drug Allergy 3 [facility] (1 source) Sulfonamides (Antibiotic) Drug Allergy 5 [facility] (2 sources) Soap; Translations: [SOAP] Allergy to substance 7 Swelling [facility] (1 source) Grass pollen; Translations: [GRASS POLLEN] Propensity to adverse reactions to drug (disorder) 5 [facility] Repository (1 source) SHELLFISH CONTAINING PRODUCTS; Translations: [SHELLFISH CONTAINING PRODUCTS] Propensity to adverse reactions to food (disorder) 5 [facility] Repository Encounters Encounter Date Encounter Type Care Provider Facility Start: 01-31-2024 End: 01-31-2024 ambulatory FRANCOISE BARNES Not Available Start: 01-30-2024 ambulatory NON STAFF Facility:[facility] Start: 01-23-2024 End: 01-23-2024 ambulatory FRANCOISE BARNES Not Available Start: 01-04-2024 ambulatory [facility] Start: 12-29-2023 ambulatory [facility] Start: 2023 End: 2023 ambulatory MATTHEW [facility] Start: 12-12-2023 End: 12-12-2023 ambulatory GERMAINE BOLIVAR Not Available Start: 12-04-2023 End: 12-05-2023 ambulatory Najma Richardson MD Facility: [place] Start: 11-21-2023 End: 11-21-2023 ambulatory FARNCOISE BARNES Not Available Start: 10-31-2023 End: 10-31-2023 ambulatory FRANCOISE BARNES Not Available Start: 10-23-2023 End: 10-24-2023 ambulatory Najma Richardson MD Facility: [facility] Start: 09-25-2023 Refill Francoise Barnes PA Work Phone: [facility] Comment on above: Chronic pain of both knees Start: 09-19-2023 End: 09-19-2023 Patient encounter procedure [facility] [place] Work Phone: Start: 09-19-2023 End: 09-19-2023 ambulatory NON STAFF [facility] Work Phone: Start: 08-05-2023 End: 08-05-2023 ambulatory FRANCOISE BARNES Not Available Start: 07-26-2023 End: 07-26-2023 ambulatory FRANCOISE BARNES Not Available Start: 07-17-2023 Registered [facility] Start: 06-05-2023 End: 06-06-2023 ambulatory Najma Richardson MD Facility: [facility] Start: 05-01-2023 End: 05-02-2023 ambulatory Najma Richardson MD Facility: [facility] Start: 04-03-2023 End: 04-04-2023 ambulatory Najma Richardson MD Facility: [facility] Start: 02-27-2023 End: 02-28-2023 ambulatory Najma Richardson MD Facility:[facility] Start: 02-13-2023 End: 02-14-2023 ambulatory Najma Richardson MD Facility:[facility] Start: 11-07-2022 End: 11-08-[address] FRANCOISE BARNES Facility: Start: 06-27-2022 End: 06-27-2022 ambulatory SUNSHINE Keller Facility: Start: 04-27-2022 End: 10-26-2022 ambulatory FRANCOISE BARNES Facility:[facility] Start: 04-22-[address] FRANCOISE BARNES Facil ity:H1 Start: 11-05-2021 End: 11-05-2021 Emergency department patient visit Tyler Petersen Facility:[facility] Start: 09-18-2018 Patient encounter procedure Ida Weber Facility:[id number] Start: 05-08-2018 Patient encounter procedure Ida Weber Facility:[id number] Start: 02-13-2018 End: 02-16-2018 Ambulatory FRANCOISE BARNES [facility] Start: 12-19-2017 Patient encounter procedure Ida Weber Facility:[id number] Immunizations Immunization Date Immunization Notes Care Provider Fa cility 05-30-2021 influenza, injectabl e, quadrivalent, preservative free Francoise MARTINEZ Work Phone: [facility] 05-30-2021 influenza virus vacc ine, unspecified formulation Francoise MARTINEZ Work Phone: [facility] 06-12-2020 influenza, injectabl e, quadrivalent, preservative free Francoise Barnes PA Work Phone: [facility] 12-16-2018 tetanus toxoid, redu brina diphtheria toxoid, and acellular pertussis vaccine, adsorbed Francoise MARTINEZ Work Phone: [facility] Medications Current Medications Medication Drug Class(es) Dates Sig (Normalized) Sig (Original) acarbose 25 mg oral tablet (1 source) alpha-Glucosidase Inhibitor Start: 04-25-2023 acarbose (Precose) 25 MG tablet Take 1 tablet by mouth in the morning and 1 tablet at noon and 1 tablet in the evening. Take with meals. 0 04/25/2023 Active [id number] 200 actuat albuterol 0.09 mg/actuat metered dose [...] once daily cholecalciferol (Vitamin D-3) 250 MCG (38730 UT) capsule Indications: Vitamin D deficiency Take 1 capsule (250 mcg) by mouth 1 (one) time each day at the same time. 90 capsule 3 02/06/2023 Active Continuous Blood Gluc Crystal Evaluator (FreeStyle Samreen 2 [place]) device (1 source) Start: 02-23-2023 Continuous Blood Gluc Crystal Evaluator (FreeStyle Samreen 2 [place]) device USE DIRECTED 0 02/23/2023 Active Continuous [...] Start: 08-15-2017 take 2 tablets by mo uth once daily Multivit With Min-Folic Acid (Centrum [...] (1 source) Polyene Antifungal nystatin (Mycostatin ) 400131 UNIT/GM powder Apply 1 application topically in [...] 15, 2017 11:00pm August 15, 2017 3:39pm Payers Date Payer Category Payer Self-pay [id number] 2022 Medicaid [place] [id number] 2022-Present [address] [place] [address] [id number] 2022 Medicaid [id number] 2022 Unknown 2018 Unknown [id number] 2018 Unknown [id number] 1975 Unknown [id number] .840.1.477957.3.579.2.356 1975 Unknown [id number] 2.840.1.252461.3.579.2.356 1975 Unknown [id number] 2.840.1.065633.3.579.2.356 1975 Unknown [id number] 2.16840.1.052905.3.579.2.727 1975 Unknown [id number] 2.16840.1.326575.3.579.2.727 1975 Unknown [id number] 2.16840.1.832548.3.579.2.593 1975 Unknown [id number] 2.16840.1.071552.3.579.2.593 1975 Unknown [id number] 2.16.840.1.401004.3.579.2.593 1975 Unknown [id number] 2.16.840.1.493055.3.579.2. 1975 Unknown [id number] 2.16.840.1.116843.3.579.2. 1975 Unknown [id number] 2.16840.1.924879.3.579.2. 1975 Unknown [id number] 2.16.840.1.653555.3.579.2. 1975 Unknown [id number] 2.16840.1.108037.3.579.2. 1975 Unknown [id number] 2.16840.1.910020.3.579.2. 1975 Unknown [id number] 2.840.1.967164.3.579.2. 1975 Unknown [id number] 2.16840.1.876994.3.579.2.1285 1975 Unknown [id number] 2.840.1.083044.3.579.2.1285 1975 Unknown [id number] 2.840.1.517764.3.579.2.1285 1975 Unknown [id number] 2.840.1.148008.3.579.2.1285 1977 Unknown [id number] 2.16840.1.711944.3.579.2.1285 1977 Unknown [id number] 2.16840.1.237028.3.579.2.1285 1977 Unknown [id number] 2.16840.1.824136.3.579.2.1285 1977 Unknown [id number] 2.16840.1.112751.3.579.2.1258 1977 Unknown [id number] 2.16.840.1.825216.3.579.2.9 1977 Unknown [id number] 2.16.840.1.430141.3.579.2.9 1977 Unknown [id number] 2.16.840.1.685575.3.579.2.1258 1977 Unknown [id number] 2.16.840.1.230982.3.579.2.1258 1977 Unknown [id number] 2.16.840.1.363188.3.579.2.1258 1977 Unknown [id number] 2.16.840.1.846723.3.579.2.1259 1959 Unknown [id number] Unknown [id number] 2.16.840.1.405119.3.579.2.531 Unknown [id number] 2.16.840.1.694917.3.579.2.531 Plan of Treatment Date Care Activity Detail Author Start: 02-18-2024 Influenza vaccination Influenza Vacc ine (#1) [facility] Comment on above: Postponed from 04/21 (Patient Refused) Start: 02-11-2024 Screening for malign ant neoplasm of breast Mammogram [facility] Start: 10-25-2023 End: 10-25-2023 Patient encounter procedure 10/25/2023 1:00 PM EST Office Visit [facility] [address] [facility] [address] [place] [address] Francoise Barnes PA [address] [facility] [address] [place] [address] [facility] Start: 12-14-2007 Screening for malign ant neoplasm of cervix [facility] Start: 1998 Screening for malign ant neoplasm of cervix Pap Smear [facility] Start: 1975 Screening for malign ant neoplasm of colon [facility] Problems Active Problems Problem Classification Problem Date [...] Translations: [Plantar wart] Onset: 01-23-2023 01-23-2023 Episodic Procedures Date Procedure Procedure Detail Performing Clinician Start: 09-19-2023 MR lumbar spine wo con Start: 09-19-2023 XR pre/post mri xray Start: 02-10-2023 Mammography Frnacoise Barnes PA Work Phone: Start: 02-13-2018 Mri brain brain stem w/o w/contrast material FRANCOISE BARNES 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 Results Test Name Value Interpretation Reference Range Facility MR lumbar spine wo conon MR lumbar spine wo con [facility] [place] [address] MRI Report Signed Patient: Marilee Arriaga MR#: [id number] : 1975 Acct:[id number] Age/Sex: 47 / F ADM Date: 09/19/23 Loc: Room: Type: [facility] Attending Dr: Simona STOCKTON Copies to: [...] Beckford Jr., D.O.09/19/2023 2:27 PM Dictation Location: RADIO-PC-15 Transcribed By: BILLY 09/19/23 1427 Dictated By: Linden Beckford Jr, DO 09/19/23 1412 Signed By: 09/19/23 1427 Normal [facility] XR pre/post mri xrayon 09-19 XR pre/post mri xray [facility] [place] [address] [place] [address] XRay Report Signed Patient: Marilee Arriaga MR#: [id number] : 1975 Acct:[id number] Age/Sex: 47 / F ADM Date: 09/19/23 Loc: Room: Type: [facility] Attending Dr: Simona STOCKTON Copies to: [...] 1507 Signed By: 09/19/23 1508 Normal [facility] ECHOCARDIO M/2D COMPLETEon 0 11-07-2022 ECHOCARDIO M/2D COMPLETE Patient: MARILEE ARRIAGA. Exam Date: 11/07/2022 : 1975 Gender:F Ordering : DR FRANCOISE MARTINEZ Admission #: [id number] Family : Order #: [id number] CLICK HERE TO VIEW EXAM ECHOCARDIOGRAM REPORT [...] on 11/07/2022 at 19:12 Approved by: Shay aMsters M.D. on 11/07/2022 at 19:16 [facility] Coding Summary.on 05-04-2022 Coding Summary. CD:[id number] Gh0bWw+PGh lYWQ+NZ9MAEPbG78snWRsxY3LV9gFZ D3QJNZTGNXVXA1RFQ1itMZ3OUheF5M ybiAv DabxcPBiYL93BNi9TZE5nLfuFFenaN 1blTVvD4c9AaPcZJ73wJ65XMvxSTBd FjH8ZcTancbcgVUd L4hsRvCuwOUlHly+PHRhYmxlIHdpZH YdDOgmDQGtLmPggAguPJ2pUz6dGPJz LWNvbGxhcHNlOiBj j0aoJGUgYVraOD6sjEgpO8PbvJL8CB Hmk1o0Wj40qBA+MYQuFUL4tIolYKvq y474HsNli8glOIP7 aCFwVVoyIKL5V87ex2O3HAHcRSBkZJ L2vXF9nL4taJdbqepgF0AtoQLtIzS8 XVL1cQHljH2gkZef ctlunQ3pOlm+D93JKY9ZTQZNTA3WOz s8E5UbSkyveUX+HW82XIIoCP05hLRt lFKsq9rbwSo7LqXb RJYwGUC9cPjvQUuvd7ZfKDGfD62ekS Fak7R7JLZiqJfgfMWfZuJdhAP4wO5d BAvbcaluf6qgfxmf Snhrg8itsm56rC50Q51yAQblGGGsBD E4EWMdFBEroFkunt3fpP0vIa3+IDxj n8yrs2rtcDi0GsLy WAGuktUyoHamAYL3l8CpNe70Z6EwtB wmu7WxSkr1xa22pAQfv1X0zZO1NFky GVRaaU2kGEvfJnJ8 TUNeDlQayK68hOOfPTalHf5jfTxiqM giCO2jRZEbjjpmMVNwgA4uXEOfyWOa jTihTQ1dIJTlgfza m700WfCtGLL1EQMrfGIvC1VkfV2cRz OoRHTpSYDiR5BhdBLrJHkhQ630VHet RvE8CBBjklVyU0Mh WUWuyDzxUkG8h9R6Dq9Pm1PsxknuCL P3OZtpNXD5VnC9CrAyMwT6N8JvMsx5 YLQuoQnvSM7xU7Jc DMOpvdhlbmbnvMX4QVXxXDBaqJ72aH LeRIlzSn7sa4K5j068LVSnWWNihZ86 Xm1veGvsZNZpaQRJ sJ4kniezt2ombwibKcDjAEAuUVt0ZU z4IWXdgRauXhOkRNZ8ClM1MVD8xWVk tU9ibDjjsyjyuO4t Oyc+V21fgU7gTNP4ZLO4rektDYUaes EwWG81QQ67R7YtHccriZWvcSV+PGRp taGbyXzwJH6kWmTy a5res9KfNTuuX3CoRIOmJWfkMvn1NN PhFKM9cKS3uE1kSSKdXRijy8V5zUS1 E5VwczHpmv8as9wn OMFtMVcuW94qfMLqa1Z5BBMmhPJ5AZ CqaZiuNeUvrI50Lus+NHVasRong9Pu Wgkwe6noe0vyhGp5 OaPwJMXqzyFvzNohYJP9t6EsLt99X9 2jKJdeDBSzZYGuMFLzUXJkvApgau9s cI4aVl9+PGNvbCB3 eQE1xG8kZCUdZrC4JYgfJ426KoMbtK CmHmqot4ywq9dzoBd3QmLmUTXvgePw oGudJCI5w1XjCz38 U01rDTffPPQiHUPjIXDmFJStgSfthd 6afX0zZn4+WV7my3anfl37wY47uKA+ PYZxEVH2gBouCKkh FIQqsU6gEKrbCtN2CXXsGzBohC09oV XuDGtsHa1byBajaBzhKI9cTXAawrut e061MxLls9goGYYs eZYtWCrrYNN6B18kj2A8EBEzHASbKA C9tFK0hP7bnOoeuobavTKmeZhbrnGr eYhmWEkhFApzI923 BITxtQnlZyDvxTgjsoLcEeGaBMk5J2 PrLtg8FQRhiFlbCA3quJAoEZzqZb2p oPdsuIrdZA1mLCKz aadkh895TrLxo0ncPUVulIHxOKywXH E3O75or0U0SRLuYDJoKCZ4eBF5kD9t bGlnbjogbGVmdDsg lnAqoLmaNXvaKAaiT056JBQksHtgEg TequNiWBUweEF5WD54YH08sHBmb2H6 eVW9V7AqDQImhhxd zqelwPG8XKZbHLZytF64Hj7zoWjrCx 8xIOZwQMW9VPDssETbP7NxjC4nGpQi KTRjPLGtD3MlwVXb RMxiV527DIcqZdJ4KUXsnmSpL2SlNN GlkMoeRaX6z1W7Iv0UB6M4NY12UY34 hPUmt4H3qHI5D9Po LRJemktxeoahsCJ1NHYoITExsO02Vj 3tpBlrQs0qZBOiXSA6XWNffKUqL9To tS2bPiYzKTPaSJRr L8TptAEvJOriK752SAhiIjZ0BWWfog EbT5YdXSMcxDqdZrD3z5G7Pr1HOWw5 IG41FX75dJAcc9Q5 tJF8C8JvAWDnymxtaupkkCW9THNxUM DyaT62Zv7kcCckTv3cOMDiNRO0KMBv yCTkM5HpgS3fXgMn FJAoRUJpE5WuwAVyMQcoC778YQnwYy R1KMMwdlZsC7LlSOAnvTwwZfK4f5Z6 Rb9TFYBwDR05ZCT9 jJB1CH09IV07F7YlBjzhsTWvmJF+PH RhYmxlIHdpZHRoPScxMDAlJyBzdHls OF8gRk2jBVXeIZQq hTyuaBEoVuWjw4fzKDToWKpeBK2nlN spD2CjkNJ0WMEoe6f7Zy66N77yY9Jn dXA+PSGwvZK2gVL4 aT4lZlHhSsF0GLuwF397CiEdmHMiFj art8yfz9nukBa9BeH0JHIulmWhqBcp WTY5n1SjNw54E57n RTwwMWFbDTRgWDQfJJFclCezqz8epD 9wIi8+YHPzbFK3hNY1bF8fQlZuEhT1 CYhjJ302YbAblPDj Pzyzh3elr6makAd7NlYaFHKlaxBuhA zmPBQ8i1KoXz06G7QxtYsph7AtHpv1 xb17hMQaf9H7lUW6 X6VuUOHpxdmvtSCmxPnmVQ7hBCIukd vbETKzbG1xTCWsP3d7VeAyYoG2XYrl X5NhzfG3FAIvlIWa PUbuNUH4O04ok0J1PUQrJECnWME8kH R3tX7ctJqprbrjxBMlgHqztbFhlAss XCenPZspL145VWWn zBtiIEOrdQ7bFBSflREmwVqyJB5nWL HhpyqkYxHABCwILKTDPK7MFHMZJzYP DT80PJ60kWRms6W2 bIY4Y1HvBQQrhybaompzbFA3EQFrMX TenB87wLXfIEwrYo7sa6U9q042SOPa IYCorL44Kn9itLwu BZRcbMMGbU3rztheb6vtaigoHxNiDJ EgBWb3GAx9ZZQtsOcfFwOeVCX7GqL5 RTF5aIGzoT0eaJmn pteyoH5hWhr+HUXlXuMtERm6DWggnZ Q+YRLgDUJ6zVfgMDwyTLNirW3gGOLe U4x5YlSuJxN3HYbb A8SgIQYqbcvbXa65lT9aTvQmKzS7PH tyL6EnfxS4ZNZuqCHtFHgpBOH8Z96o n7D6SFCuCEYmLOD7 iQG4iA0adRpukcxnvJPbnPflvsJheE puTCgnZEgpV171HFIsiLgyWfW4EJou UXAuWK04EE21iAIi q9M2uWB3P1ShRECzryituxdhfGB4SR KfEJBrdY82kUMiJRkhWl6be7W3t997 KKAbVZGiyX90Tf8b tFptIGWglZOSfX2uzjfsf5pdvelhIk LwSRQnWUb3PAu2URThcNmsMlKbTAN5 OlG4OMV2mREabG9v xShlijsedO5vGrg+JfSoYWjuAW80JR 57sGOrs1H7oRN2K6RzMDYaihauulrt nKZ9MZZlVSSueB07 yUXxGGrfCv1mx5U8l972BKVlEHWvrM 47Xo5zvAuwWEPifHHSeH7yjhjah9px cjogIzAwMDAwMDt0 FSr4UUItuOjyFgPcRLP6PnW9JPV7uK WzqY8icOsosivmuY1iAjy+UmVjdXJy oQ6gCB17PJ87S2Yg PjwvdGFibGU+PHRhYmxlIHdpZHRoPS ctJWFqQwJodFacQJ2mUc1hUTBzERSr zBsryMSdHjXmu6rf EHEpRSbrSO5jhUtbQ2BvfJV5IQZdw2 r4Lr22V32yK2NqrIU+UGLevDL2aXR8 cL0fRlXiTeZ1QPtg L289TcFdrGTkSjhas5ohb2slqGs0Mp LxIJUyliHztOeuHOU3v7PuQu60D13u IHdpZHRoPSIyMCUi FDUejNvdmh3xfW4rWx6+BESdxPS0oF F3aA4pJwJgJfY4GDldW695ZqUrzHQl WkcvT37aX5HrvVL+ ESNuOqk6XTCriNgsMD0evDSjDTjbSt 9xYWF7GnRgEdVaZVmjL9ZzVVGavwfz xenntQI6RRXbFKIc dC15Gm5eoTqsRx4xWTMgKGA7DZBgzX RyG8HkqL0uAlMyVYRdLMNyG1RzoPBu QSgkK470HXokZeV9 JMMftpYvG1EdJBHqxOvqUeZ2d6F9Bh 9FcBqjcEUuTE6bCpZpJAu3V3LeNlv4 BBDwdNqhTI6caPJl OSijMo8juUrqzPqpJN3zYKNiqptyl7 17KgXto3jsAAQamJEjEOggKAB1Y67g o7L1HEJiOAPrIKX6 eIV5mG0kvVdunuxrqNMfbLansoJcwH ryDNwgZBagI868HQEclIprPsLVKmk5 A3LqCgt2UZIplVrp HC7csWWhVRmkXd4ltPxfqNevDW1tFS Qqxlfvb143RkWgi1bnALEeeSXkSUmh KQG8U28tg2L7VKBf IVFbFAB0lKU9hK8avKseqdjnjFLnsC yhvlUahMveUWltTYldZ348OYWtqOaj Uy8SMdn9X4RxTpu1 WWWbrMgzLG8cuWEyKVjiGp9hpBczwS xsEX7fBMIftukbt558JtJkm3nlTVCz gAHgJYlsPSJ4J96a j7Y4UJMdIKEnBGB7tGN7eI6gyBynjc iyfKDjiUagycUaaQtrGOhqATkhQ396 IHRvcDsnPlBheWVy OjwvdGQ+GR63vp30V1SpXhyrRfj9JO JeDKX1uMG4cZ3gYHFdNIkmt8O1kTV7 A7MgeoKong6yk5ea YXBz (more content not included)... [facility] Consent for Treatmenton Consent for Treatment [id number]#[id number]:127 [facility] Outside Records Officeon Outside Records Office [id number]#[id number]:127 [facility] Physician Orderon 04-14-2022 Physician Order [id number]#[id number]:127 [facility] Coding Summary.on 11-12-2021 Coding Summary. CD:[id number] Gh0bWw+PGh lYWQ+ZI5KQJXgS52clMDbmY5RM7oRJ I8XZKOEALUYNV0COP8okCO7RMolO8V ybiAv EnwwrLFdXP38BXq4SQG5iJqcEJcvaB 2jjQZuE6n6AeOwOD58uN52UNhdAWMk KzE7SjQfhnuvuMKq Z9hkYlGecGRfSgh+PHRhYmxlIHdpZH GvSUedURXlBvRdoRouLY0jXs8rJLUa LWNvbGxhcHNlOiBj e5qaKEJuSJicJH2vzPjvO8CrdHI3HH Hgn4f1Hi69xZF+UDGfJLV7dRrbKSwc t586TkXvl5xtZTD6 mYQtSHowGSN6I75qi9Q0OKVqBUCcDU Y3sCZ1tH4esConzbicL4GziSWeSrR7 XGF0bHUytW7puXjp piakgG1wTnz+X21FBL7IFKUWJL7CPm u2U6UfMejntPS+GV73XWHmVQ83nSRm rRKjm5nwuQz6FwXk OHCuPVA0zMkzNNfzt7IoHZBsW51crR Bfg6U0YFUxiMxuoLEcOxYceLU2rJ7p RHzhgadeu9otxbzy Vswtf7dzkz55rM43I40lABbgPLIzYN E5VROtMFHbgOpmey7fvO3qSa7+IDxj w3nfy2ncxJh9EhYg KQTbphRqfOnxRSF6z9CbMt89Y8DeyN lcc5TjTmz1kn77jEDrg9U9bKT7CCey PUFayD0tTWmnIlI9 RTFgXeKfhA93oKToTPvaLd9fzVhiyW uvDS5tAQFxjmkuRKSggQ3cXEAdnCAl fFztMT8aPOFhefvr s284RwEqSXJ3FABvfCNoY1XymX8tDg YwTFAdZQHfH1HgpZPpWSqhA366HClu OdV7UQJossDjE4Kv YLZwlTumCkW3k7J9Mb8Xm2YdywytXR J9QQlxLLLgVqC0VaKeMjF7U4KmYnb5 CHIunQqrGI7bQ3Fc UCOtldlspyivhTM4QTWeVVIlqY12aB UkYBckWw0vj5P8r070ELQwWJWnsD77 Te1ylPtcBEIzyFZD mD6wglehr2iotqzuSkNrBUEeELa4NC l2JCPfpDuaXaKgJOH1EnZ1YCU2bEZa tR9cxQioewbigD3l Oyc+M17ynQ1kRMM4WMY3jkigGDJspz ChCN39DE84Q0LqEyqupOPueVS+PGRp loTasHmnOT1wRxOm w5rvl5DjCRypU4CyPNDdVMelVxg1JJ QuMCU6wKB3lP6iEGWxVJdhb5E9fXG1 P4MyewBkei9rx7cn KNClMMweZ09jjPIgs1N0CRRqcZG3VI EimEuaOtTtpF92Egu+ABHttWxtq8Hp Afrge6dot7xfsBo6 FbPsPVWchcWnoTxxMZQ1l0EwOa72M7 1bYDlpULUsDSTvKZIwPPAjbYbjcz3r xV6iDj6+PGNvbCB3 tOZ9bF3eNFYlHqP9IDebP745VcLrrD YbQlgbd9scb7xekZq4CsUcRVLtyeSu nEnlNOD0e2QmFf15 V21tPScrBDXlVKWiYPQcMDBzhKsxef 7cgP0bVm1+GT5bi8mfnv82wS95kAH+ MMQkAUU9nOztLGtz UBSzmF5eTMyiHyC8QAJnCcNdfH21fO LhIImjGh7gqTujyRzgAR5lOSYavbjq i935WrUsb1oyJTWp uOIsUZutHXG1K46ge5R7RVUvMOHzFQ C5wNW6dU3zcDkzwjhfsFQfoUnmacTr vWlkZAojTBtaZ553 FUIfiCuqMzZxjNbhvlShIbGrSNj6W0 WiSdg1YYOzbMrgOR2drVNcBAitHe5d jZhtpHjbDD3dPEOs catlc923SvPlh1pcEGLdqNNxTGxhWD S2P32pw1D8JDOgPWNfKAY2iEJ4jP0u bGlnbjogbGVmdDsg iuWzxPbbASlgOPgwN973DYJooWneQv SgpkIzMWIxqUL6PA13WC42mPEie9M9 nNY9C5DiOQQxxbjx nmxlrJR4WKBhKQJwfU70Nf6gyNrtYf 4aCOEjDPG4SYSxeRQrV1WttM0bXvNp RJNqMGRcJ0OwfEAb JRziK996RPisGbV9SRRtnuQsA4XhPO XzcCneMqA7r2E3Vv9BO0B2XQ15MF16 bXRbq7J1xZR9J1Ra EHQgypqqvrbxkIU5NWHjUUSzbK53Xh 2ceVvdSq9mDKFhFEK1BQZgsOYfA8Lu eZ3iFxSbVSWuPNKp V7LboGVcGSolY567BVuqKkO5KDMnnk RrS4NtDMAlxBvtGvM2p6P7Lv6YOUh1 XR46RW69lVVta6N3 sWF8M7MqJCOneyszrqmsyKI0OYWhVP NhiL34Wu2meTrrQv6nHDGeWFE8LCZi kZVfB9OkaK1iHuNh TOErFNTrS4LzlPGhCYguM289WSbfKg D0RTHoqsLvQ7MmYDGmdUezAlT2b1D6 Xv7VSDEgFT29TFD7 uWT3BR04LB82B8OnFcgjhDGuzEH+PH RhYmxlIHdpZHRoPScxMDAlJyBzdHls UU9mSs2bXKShCLLa fIwsjVJqCbQrx2hhPZWmSDgeGQ6prS hhL7CfkKM6IPWtg2z4Cr26U98eR7Iq dXA+SCHewQZ1uXT0 kC1sTsNeImB7DAhxU619MsXveFNrHl mfe0pff2kelZf5QaQ0ZHTnenJjqXct ZYY1i8IwLn56I39h DBplNOOoFNFaFBYtLTFzaGocga3maN 9wIi8+VONavEL5cSW6wC0xPhLxTbT5 QDcqJ964PiDqaXMo Weqpm4sxy2cmlHq0MfLrKREjtzSbtW hqVQE4a4AnWy77M8JcxJaky2TnMaf9 cs13pAEul6R2vHO4 A4PaWWKdfhtdnZSsoWcaWK8tWUDvtt qyFHTakA1zLYOuQ4j5KeGtBlK4IGdx O0RokiY7ACWvdFBg MVaaFIW1F07ml3G3QVIuUIHfLUP6iH H0jN4jwCesvhsfqNHvgZgohnSqxKzz HTfhRNwnU956UCEc qClzUZJkhQ0zQHPbkUWdgVsjKH6dRZ RxhuynHnIFBQsPANJIZE8SELIVGyOI AX91NT15pIXsm4L6 jUU9Z1TqYFIafpewakfblRO3EAQvJM NwkB25bZWaGAnlVd5rr2S6j635PABl EFMgoP15Av3tmUeb HVUufOTRmU9ggobwi3lvopcbLkAnJZ XeGOv9WNc7TDUexFevIyOtPOX4VeS1 XGG0gCKbmV6bbRdz wlpvaG1nDbw+RUFpZyXpSTz6IHphvZ Q+VZQiAQA7tZlzMRvdWGYxvD6gZRLg J2o3OoJwDeR0RWsa S4FpNAOfrzubMm30aX6xDxMdWhQ6DM hqH5PhibQ1OSHkaOZbJIzkXSC9F21u d1F5ANIePPTzDSH8 hCA1vF5ucEdsmtcrgJDmkOhjilBxtG mgSJejPDxmH858RGOlzTrhVfEuPEpx JYDkYY22KM37aMBt n7I7vMY0X7NkHEPlikuejyqcmIN6VW CxAPIsdT24eZKeJOwlIm5ki7Y3s204 ZTFjNGZpjT34Jq4x jPcnUGBzsUXDnL0imemva4niibcbFs HmLNChLNt8GYe7VQHmjVdcUkEiSUA4 NwM9GJY1kXKxuO1u wGbpqefqqU3xOox+DhOmQGkkGT70BM 37eMAji8B2lXJ0H1YhMDKuhlagzstq oWS3TAQqPESmmA72 rKPaQZdnHc6fb2S9n309HUPzNIZydO 60Kc5msZjvYMBcvRPCbC8ogorcu9bf cjogIzAwMDAwMDt0 ULj9ICSbzKfeGfUeAVR6KyB5NQC1oZ QhjW8ldXyocikjcI5cVhe+IB1oldpi rxN3SI04DL79I7Nl PjwvdGFibGU+PHRhYmxlIHdpZHRoPS fzGTRsFgZcuYssAM3iNu3kIYEjNUUa gYgqxEMxKxLya5wg GVPsWKdnBZ4yhUghS6AvbSW4YPYcj0 y6Yz55U08vR8FiuVY+YXYqpDQ5yQN4 bJ4tKzHhWmP5TPka D381GiGwrVJpZraxz3fub8yuiPz2Mf GbVQHrejCslKzzEMY8m4EgUq17T15b IHdpZHRoPSIyMCUi KTZzaWflxr9muF2nHa0+LGVjlAO9uL B9aT8vUoHrIeE7MEkbR675WiHnpKBx AvqyS13uY8HfeCD+ FJZwJff4ENAekVoaMW1tkCJlYQovTk 1nIDS2IiMeMpZwABwxK7HnYZVbeolg euqxgVB6XNAcYQDr tB56Nz8dzSryZd9hVAThDFK2SLWkzG TfL1FrlG6sLuOcCUUbYDJwP4AkvOJg SPlgW799NNyyQcO4 OBPclnHrD8EaWJNusJjwAgS6a4E6Cz 6DbByvsOWiDP4hGxQbNVx4Y3RxNae9 ZFLwhMzhZO5fqNJs OSsaHr4zqPgfiGckKV4sHIEcvilfg7 13GoCgc4twMVSnzQMwVKbyART1P60z n8T3BIGqBFIpPUD7 rHQ8pK4gmFbymalzuIRgvSbwupGetK fnKEgpHOesL465HKVqcIpyAuPHNjm3 L6ZnRct8XWWxyLlh DS8qiFFyOCowSv1koIyoaUtkLO4rCF Hvvbiyr895LiTkh9hiUJPkhQLpOWqk IOF5N95tb5W7ZXGh QIFmIBH2qFP9xW9muThaarrtbTJenP pznhLacIdmHMncZLpwW314WWPzqUfj Iv8VZqd8B3TqBny9 DEAdrCrdTJ5fhUVjBCmnUg4ekJahiN twNO0qIWLbbgjfb594SqXlq2ptYKRj zAOgDCamVZR5Y15d v7Y3HUOzKIRhHFQ6cXI4eS8jyMneil jaoYAtbXnvrdTeyBhaTClvYGfpP878 IHRvcDsnPlBheWVy OjwvdGQ+GY33ie97S8YrXquvDqi6DG ApNCC0dKD9kF2pOVFoNQkfq7A7lXD2 [id number] (more content not included)... Normal [facility] Consent for Treatmenton 10-19 Consent for Treatment [id number]:127 Normal [facility] Discharge Instructionson Discharge Instructions [id number]:127 Normal [facility] ED Clinical Summaryon 2021 ED Clinical Summary [place] [id number] ED Clinical Summary Person Information Name: MARILEE ARRIAGA Felipa/[facility] Age: 45 Years : 1975 Sex: Female Language: Jamaican PCP: FRANCOISE GAY Marital Status: Single Visit [...] 16:00:59 11/05/2021 16:00:59 11/05/2021 16:00:59 ADDRESS: [address] [facility] [id number] PHYS DOC NOTES: MEDICAL INFORMATION: Prescriptions Given: New Medications [facility]/pharmacy #[id number], [address] [place], [place] [phone], [phone] acetaminophen-hydrocodone (Newcastle 325 mg-5 mg oral tablet) 1 Tablets [...] Follow up: With: Address: When: Em Mir [address] [place], [place] [address] Business (1) In 3 days 11/08/2021 Comments: Return to the emergency room if your pain gets worse or any new symptoms. With: Address: When: FRANCOISE BARNES [address] [place], [place] [address] [employer] (1) In 3 days DIAGNOSIS: 1:Avulsion fracture of left ankle; 2:Sprain of left foot Normal [facility] ED Note-Physicianon 11-06-19 ED Note-Physician Basic [...] and crutches was given. Patient was given Newcastle in the emergency room. Will discharge patient home with Newcastle and follow-up with Ortho. The OARRS report [...] Foot 3+ Views Left Medications Administered Given Newcastle 5/325 Tab, 1 tab(s), Oral Disposition Plan Patient Discharge Condition Stable Discharge Disposition Discharged home Discharge Prescription List Prescriptions Newcastle 325 mg-5 mg oral tablet, 1 tab(s), Oral, q6hr, PRN Follow-up With When Contact Information Em Mir In 3 days 11/08/2021 EDT [address] [place] [address]- Business (1) Additional Instructions: Return to the emergency room if your pain gets worse or any new symptoms. FRANCOISE BARNES In 3 days [address] [place] [address]- Business (1) Additional Instructions: Patient Education Crutch [...] Tab, 100 mg= 1 tab(s), Oral, Daily Newcastle 325 mg-5 mg oral tablet, 1 tab(s), Oral, q6hr, PRN ondansetron 4 mg/5 mL oral solution Prozac 20 mg Cap, 20 mg= 1 cap(s), Oral, Daily Prozac 40 mg Cap, 40 mg= 1 cap(s), Oral, Daily Qvar with Dose Counter 80 mcg/inh inhalation aerosol ranitidine 150 mg Tab, 150 mg= 1 tab(s), Oral, BID SEROquel 100 (more content not included)... Normal [facility] Comment on above: Result Comment: Elec tronically Signed By: Tyler Petersen M.D..br\Date and Time Signed: 11/05/21 15:39 EDT ED [...] 08/04/2001 Document Revised: 07/20/2018 Document Reviewed: 01/27/2017 [employer] Patient Education ? 2019 poLight. How to Use a Stirrup Ankle Brace [...] the bra (more content not included)... Normal [facility] ED Patient Summaryon 022 ED Patient Summary [place] [id number] Patient Discharge Instructions Person Information Name: MARILEE ARRIAGA Age: 45 Years Arrival Date: 11/05/2021 13:19:01 Discharge Diagnosis: 1:Avulsion fracture of left ankle; 2:Sprain of left foot Primary Care Physician: FRANCOISE GAY Provider Information Primary Provider: Tyler Petersen M.D. Advanced Siding Installer:None The exam and treatment you received in the Emergency Department were for an urgent problem and are not intended as complete care. It is important that you follow up with a doctor, nurse practitioner, or physician?s high school assistant football coach for ongoing care. If your symptoms [...] Follow-up Instructions: With: Address: When: Em Mir [address] [place], [place] [address] Premonix (1) In 3 days 11/08/2021 Comments: Return to the emergency room if your pain gets worse or any new symptoms. With: Address: When: FRANCOISE BARNES [address] [place], [place] [address] Premonix (1) In 3 days In the event [...] opioids can be used to help relieve lieigfmo-lz-rjeoau pain and are often prescribed following a [...] Administration (www.fd (more content not included)... Normal [facility] XR Ankle 3+ Views Lefton XR [...] Barnett MD Transcribed by: KAIDEN Technologist: Normal [facility] XR Foot 3+ Views Lefton 10-19 XR Foot 3+ Views Left Exam Date/Time: 11/05/2021 13:50 EDT Reason for Exam: Fall Report Refer to concurrent left ankle radiograph dictation. FINAL REPORT Dictated: 11/05/2021 2:04 pm Rony Barnett MD Signed (Electronic Signature): 11/05/2021 2:04 pm Signed by: Rony Barnett MD Transcribed by: KAIDEN Technologist: Normal [facility] MRI BRAIN W WO CONTRASTon MRI [...] by:SUMANTH Garciaigned by:Margo Mendez MD02/13/18inal result Normal [facility] CNDSon 02-16-2017 CNDS HNO ID: [id number] thor: Mark Anthony (Romain) AdenugaService: General SurgeryAuthor Type: ResidentType: Discharge SummariesFiled: 02/16/2017 11:44 AMNote Text:[facility] [place], [place] [address] or (613) [facility] O N F I D E N T I A L I N F O R M A T I O N -----[facility] DOCUMENTDISCHARGE SUMMARYPatient Name: Marilee Buckner Date: 02/13/2017Discharge Date: 02/16/2017Attending Physician: DENIZ Pfeifferrincipal Diagnosis: Morbid obesitySecondary Diagnoses:Patient Active Hospital Problem List: Obesity, Class III, BMI >= 40 (morbid obesity) ([facility]LY [facility]) E66.01 (02/12/2017) Morbid obesity ([facility]) (02/13/2017)Operations During Hospitalization:Laparoscopic Crystal en Y gastric [...] as needed.Future Appointments:Future AppointmentsDate Time Provider Department Edna02/23/2017 2:30 PM [id number] MORENO GENI GENS A/M 03/09/2017 11:00 AM [id number], KASEY (PHD) GSPSMN GENS A/M BL03/16/2017 12:00 PM [id number] 2 GENBMI GENS A/M BLD04/06/2017 1:45 PM [id number] GENBMI GENS A/M BLD05/16/2017 10:30 AM [id number] SOTO GENBMI GENS A/M BLD05/16/2017 10:30 AM [id number]-[id number] SOTO GENBMI GENS A/M BLDPatient will follow-up in clinic with Renée Moreno MD as scheduledabove, or sooner if the need arises.Electronically SIGNED by Licensed Independent Practitioner: Mark Anthony Jean MD [facility] Glucose POCT (East, West, SC A Use Only)on 02-16-2017 Glucose mass conc 105 mg/dL High 65-100 [facility] Comment on above: Performed By: #### G LUPOC ####[facility] [place], [place] [phone] NURSING PROGon 02-16-2017 NURSING PROG HNO ID: [id number] thor: Lilibeth Ortega (Rn) Doroteo Santos: (none)Author Type: Registered NurseType: Nursing Progress NoteFiled: 02/16/2017 10:27 AMNote Text: Nursing Progress NotePatient Name: Marilee Grimaldo: [id number] Location: [place] [address] [place] Note: Doing better this am, able to take all of pills and drink theKphos, took a shower, so taking in more po, pain controlled, no emesis, nomore bloody stool, ambulating VSS, on RA, expecting to go home today,continue to monitor.This note was completed by: Lilibeth Santos RN [facility] NURSING PROG HNO ID: [id number] thor: Lilibeth Ortega (Rn) Racquel Santosice: (none)Author Type: Registered NurseType: Nursing Progress NoteFiled: 02/16/2017 11:37 AMNote Text: Nursing Progress NotePatient Name: Marilee PruittN: [id number] Location: [place] [address]/RG-[id number]-08 Da [place] Note: Patient has been discharged [...] note was completed by: Lilibeth Santos RN [facility] PROGRESSon 02-16-2017 PROGRESS HNO ID: [id number] thor: Hiram (Romain) HuyPutnam County Memorial Hospitalice: General SurgeryAuthor Type: ResidentType: Progress NotesFiled: 02/16/2017 8:02 AMNote Text:General Surgery Progress NoteName: Marilee PruittN: [id number]: 02/16/2017SUBJECTIVESubjective: No acute events overnight. Last melenotic [...] lb) LMP 01/27/2017 SpO2 94% BMI 62.73 kg/g1Fykbrv/Output Summary (Last 24 hours) at 02/16/17 0759Last data filed at 02/16/17 0616 Gross per 24 hourIntake 290 mlOutput 950 mlNet -660 mlGeneral: NAD, alert, orientedLungs: nonlabored breathing on nasal canulaAbdomen: soft, nondistended, appropriately tender, incisions C/D/IExtremities: warm, well perfusedLabsCBCRecent Labs 02/15/1709WBC 13.80* 11.75* 15.32* 15.53*HB 10.7* 10.9* 13.5 14.7HCT 32.6* 33.8* 40.2 44.1PLT 391 368 438* 479*BMPRecent Labs 4 [id number] 326517MH 141 137 137 138K 4.2 4.5 4.0 4.6CHLOR 104 99 97 97*CO2 27 25 20* 24BUN 15 8 14 19CREAT 0.78 0.71 0.74 0.84GLUC 119* 115* 96 79CA 8.1* 8.8 9.9 9.4ASSESSMENT/PLAN41 year old female with morbid obesity now POD 3 s/p mpltmvgezgxkSzvp-sy-E gastric bypass. Bloody bowel movements resolved with stable H/H.- Phase 2 bariatric diet- Heplock IV- Wean O2- PO pain meds, hold toradol- Will discuss resuming DVT prophylaxis- Encourage incentive spirometry and ambulation- Anticipate discharge today on home Richelle Gordon MDEast [facility] Surgery ResidentPager [phone] Normal [facility] Basic Metabolic Panlon 02-15 Anion gap 10 mmol/L Normal 9-18 [facility] Comment on above: Performed By: #### B VIANCA MG1, PHOS ####[place] [id number] Calcium 8.1 mg/dL Low 8.5-10.5 [facility] Comment on above: Performed By: #### B VIANCA MG1, PHOS ####[place] [id number] Chloride 104 mmol/L Normal 98-110 [facility] Comment on above: Performed By: #### B VIANCA MG1, PHOS ####[place] [id number] CO2 27 mmol/L Normal 23-32 [facility] Comment on above: Performed By: #### B VIANCA MG1, PHOS ####[place] [id number] Creatinine 0.78 mg/dL Normal 0.70-1.40 [facility] Comment on above: Performed By: #### B MP MG1, PHOS ####[place] [id number] eGFR (non-black) mL/min/{1.73_m2} Normal >60 [facility] Comment on above: Performed By: #### B REGGIE COLEY PHOS ####[place] [address] Glucose mass conc 119 mg/dL High 65-100 [facility] Comment on above: Performed By: #### B REGGIE COLEY PHOS ####[place] [address] Potassium molar conc 4.2 mmol/L Normal 3.5-5.0 [facility] Comment on above: Performed By: #### B REGGIE COLEY PHOS ####[place] [address] Sodium 141 mmol/L Normal 132-148 [facility] Comment on above: Performed By: #### B REGGIE COLEY PHOS ####[place] [address] Urea nitrogen 15 mg/dL Normal 8-25 [facility] Comment on above: Performed By: #### B REGGIE COLEY PHOS ####[place] [address] CBCon 02-15-2017 Erythrocyte distribution width Auto Ratio (RBC) 12.9 % Normal 11.5-15.0 [facility] Comment on above: Performed By: #### C BC ####[place] [address] Erythrocytes (RBC) 3.63 10*6/uL Low 3.90-5.20 [facility] Comment on above: Performed By: #### C BC ####[place] [address] Hematocrit (HCT) 33.8 % Low 36.0-46.0 [facility] Comment on above: Performed By: #### C BC ####[place] [id number] Hemoglobin mass conc (Bld) 10.9 g/dL Low 11.5-15.5 [facility] Comment on above: Performed By: #### C BC ####[place] [id number] MCH 30.0 pG Normal 26.0-34.0 [facility] Comment on above: Performed By: #### C BC ####[place] [id number] MCHC mass conc (RBC) 32.2 g/dL Normal 30.5-36.0 [facility] Comment on above: Performed By: #### C BC ####[address] MCV 93.1 fL Normal 80.0-100.0 [facility] Comment on above: Performed By: #### C BC ####[address] Platelet mean volume (PMV) 8.5 fL Low 9.0-12.7 [facility] Comment on above: Performed By: #### C BC ####[address] Platelets 368 10*3/uL Normal 150-400 [facility] Comment on above: Performed By: #### C BC ####[place] [id number] WBC (Leukocytes) 11.75 10*3/uL High 3.70-11.00 [facility] Comment on above: Performed By: #### C BC ####[place] [id number] CBC and Differentialon 02-15 Abs Baso 0.02 k/uL Normal 0.00-0.10 [facility] Comment on above: Performed By: #### C BCDIF ####[place] [id number] Abs [place] 0.97 k/uL High 0.00-0.86 [facility] Comment on above: Performed By: #### C BCDIF ####[address] Abs Neut 8.11 k/uL High 1.45-7.50 [facility] Comment on above: Performed By: #### C BCDIF ####[place] [address] Basophils/100 WBC Auto (Bld) 0.1 % Normal [facility] Comment on above: Performed By: #### C BCDIF ####[place] [address] DTYPE Auto Diff Normal [facility] Comment on above: Performed By: #### C BCDIF ####[place] [address] Eosinophils 0.35 10*3/uL Normal 0.00-0.45 [facility] Comment on above: Performed By: #### C BCDIF ####[place] [address] Eosinophils/100 leukocytes 2.5 % Normal [facility] Comment on above: Performed By: #### C BCDIF ####[place] [address] Erythrocyte distribution width Auto Ratio (RBC) 13.1 % Normal 11.5-15.0 [facility] Comment on above: Performed By: #### C BCDIF ####[place] [address] Erythrocytes (RBC) 3.51 10*6/uL Low 3.90-5.20 [facility] Comment on above: Performed By: #### C BCDIF ####[place] [id number] Hematocrit (HCT) 32.6 % Low 36.0-46.0 [facility] Comment on above: Performed By: #### C BCDIF ####[place] [id number] Hemoglobin mass conc (Bld) 10.7 g/dL Low 11.5-15.5 [facility] Comment on above: Performed By: #### C BCDIF ####[place] [phone] Lymphocytes 4.35 10*3/uL High 1.00-4.00 [facility] Comment on above: Performed By: #### C BCDIF ####[place] [phone] Lymphocytes/100 leukocytes 31.5 % Normal [facility] Comment on above: Performed By: #### C BCDIF ####[place] [id number] MCH 30.5 pG Normal 26.0-34.0 [facility] Comment on above: Performed By: #### C BCDIF ####[place] [phone] MCHC mass conc (RBC) 32.8 g/dL Normal 30.5-36.0 [facility] Comment on above: Performed By: #### C BCDIF ####[phone] MCV 92.9 fL Normal 80.0-100.0 [facility] Comment on above: Performed By: #### C BCDIF ####[place] [phone] Monocytes/100 leukocytes 7.0 % Normal [facility] Comment on above: Performed By: #### C BCDIF ####[phone] Neutrophils/100 WBC Auto (Bld) 58.9 % Normal [facility] Comment on above: Performed By: #### C BCDIF ####[place] [phone] Platelet mean volume (PMV) 8.3 fL Low 9.0-12.7 [facility] Comment on above: Performed By: #### C BCDIF ####[place] [address] Platelets 391 10*3/uL Normal 150-400 [facility] Comment on above: Performed By: #### C BCDIF ####[place] [address] WBC (Leukocytes) 13.80 10*3/uL High 3.70-11.00 [facility] Comment on above: Performed By: #### C BCDIF ####[place] [address] Glucose POCT (East, West, SC A Use Only)on 02-15-2017 Glucose mass conc 116 mg/dL High 65-100 [facility] Comment on above: Performed By: #### G LUPOC ####[place] [address] Glucose mass conc 99 mg/dL Normal 65-100 [facility] Comment on above: Performed By: #### G LUPOC ####[place] [address] Glucose mass conc 121 mg/dL High 65-[address] [place] [address] Comment on above: Performed By: #### G LUPOC ####[place] [address] Glucose mass conc 111 mg/dL High 65-100 [facility] Comment on above: Performed By: #### G LUPOC ####[place] [address] Magnesiumon 02-15-2017 Magnesium 2.0 mg/dL Normal 1.7-2.6 [facility] Comment on above: Performed By: #### Mauri COLEY MG1, WILL ####[place] [address] NURSING PROGon 02-15-2017 NURSING PROG HNO ID: [id number] thor: Liliana (Rn) Rolo, RNService: (none)Author Type: Registered NurseType: Nursing Progress NoteFiled: 02/15/2017 5:53 AMNote Text: Nursing Progress NotePatient Name: Marilee OlivierirMRN: [id number] Location: [facility]/VE-[id number]-90 Surgery paged [phone] Marilee Arriaga: patient had dark bloody BM. pleaseadvise. Thanks, Liliana [phone] No new ordersThis note was completed by: Liliana Seth RN [facility] NURSING PROG HNO ID: [id number] thor: Lilibeth Ortega (Rn) Racquel Santosice: (none)Author Type: Registered NurseType: Nursing Progress NoteFiled: 02/15/2017 10:29 AMNote Text: Nursing Progress NotePatient Name: Marilee OlivierirMRN: [id number] Location: /PF-[id number]-09 [place] Note:Patient states she's feeling ok, just brought up some 'phlegm',( clearbubbles) no emesis, able to keep down 'bites' or sips of broth and tea,given IV phenergan, denies pain, encouraged to continue to ambulate,stable, call light in reach.This note was completed by: Lilibeth Santos RN [facility] NURSING PROG HNO ID: [id number] thor: Lilibeth Ortega (Rn) Racquel Santosice: (none)Author Type: Registered NurseType: Nursing Progress NoteFiled: 02/15/2017 4:15 PMNote Text: Nursing Progress NotePatient Name: Marilee OlivierirMRN: [id number] Location: /DI-EH6V-51 Da n[place] Note: Dr called to inform that patient had another bloody stool itwas dark red, no change in vital signs HR has remained in 70's, on RA, noincrease in pain, patient is only taking sips of clears otherwiseunchanged , stable, lab orders again @ 1800.This note was completed by: Lilibeth Santos RN [facility] PROGRESSon 02-15-2017 PROGRESS HNO ID: [id number] thor: Renée Alvarado: General SurgeryAuthor Type: PhysicianType: Progress NotesFiled: 02/15/2017 [...] intake Decrease IVF's as PO intake improvesStreggie Moreno MD [facility] PROGRESS HNO ID: [id number] thor: Mark Anthony (Romain) Wong: General SurgeryAuthor Type: ResidentType: Progress NotesFiled: 02/15/2017 8:25 AMNote Text:General SurgeryProgress notesAdmitted: 02/13/2017OR date: 02/13/2017 Procedure(s) and Anesthesia Type: * LAPAROSCOPIC GASTRIC RESTRICTIVE SURG W/ BYPASS AND CRYSTAL-EN-Y = 40 (morbid obesity) (FORM[facility]LY [facility]) E66.01 (02/12/2017) Morbid obesity (HCC) (02/13/2017)Hold Lovenox/Toradol, [...] RNF, potential discharge tomorrowPaul MD Ted (PGY 2)[id number] 6PM weekdays and all through weekends: [id number] SNausea and emesis yesterday, improving and PO intake improvingSlept okayDark bloody BMs this AMAmbulating well OTemp (24hrs), Av.7 ?C (98 ?F), Min:36.4 ?C (97.6 ?F), Max:36.9 ?C(98.4 ?F)BP 147/78 Pulse 80 Temp 36.4 ?C (97.6 ?F) (Oral) Resp 16 Ht 154.9cm (5' 1 ) Wt (!) 150.6 kg (332 lb) LMP 01/27/2017 SpO2 99% BMI62.73 kg/p3YHAWBXF: Mild distress as actively nauseated and sitting up with vomitbag, alert and oriented x 3HEENT: NC/AT, EOM's intactRESPIRATORY: Respiratory effort unlaboredCHEST-CVS: HDSABDOMEN: Soft, obese and non distended, non tender, laparoscopic incisionsCDI with glueNEURO: Grossly non-focal02/14 07 - 02/15 0659In: 3622 [PO:300; IV:3322]Out: 2180 [Urine:1850] Normal [facility] Phosphoruson 02-15-2017 Phosphate 1.9 mg/dL Low 2.5-4.5 [facility] Comment on above: Performed By: #### B VIANCA, MG1, WILL ####[facility] [place] [phone] Social History Date Type Detail Facility Start: 07-26-2023 Alcohol intake Ex-drinker (finding) [facility] Start: 01-24-2023 End: 07-26-2023 History of Social function [facility] Start: 01-24-2023 End: 07-26-2023 Tobacco use panel [facility] Start: 04-26-2023 Alcohol Comment Caffeine intake: sod a [facility] Start: 01-23-2023 Tobacco use and exposure Smokeless tobacco non-user [facility] Start: 09-18-2018 End: 01-23-2023 Tobacco smoking status NHIS Never smoked tobacco (finding) [facility] Start: 1975 Sex Assigned At Female F [facility] Start: 1975 Sex Assigned At Not on file [facility] Tobacco smoking stat us NHIS Unknown if ever smoked [facility] Work Phone: Vital Signs Date Time Vital Sign Value Performing Clinician Faci lity 09-19-2023 09:41-0500 Body height 157.48 cm [facility] 09-19-2023 09:41-0500 Body weight 104.32 kg [facility] Telephone encounter Note 09-25-2023 Telephone Encounter - MICHELLE Cao - 09/25/2023 10:06 AM EST Note Date & Type Note Facility 09-25-2023 Telephone encount er Note OARRS reviewed, Rx sent into patient's pharmacy. [facility] Note 09-25-2023 Telephone Encounter - MICHELLE Cao - 09/25/2023 10:06 AM EST Note Date & Type Note Facility 09-25-2023 Miscellaneous Notes Formattin g of this note might be different from the original. OARRS reviewed, Rx sent into patient's pharmacy. documented in this encounter [facility] Clinical Note 06-27-2022 Note Date & [...] EM LÓPEZ Date: 2022-06-27 15:38 [facility] Progress note 06-28-2021 Note Date & Type Note Facility 06-28-2021 Note HNO ID: [id number] Author: Em Fernandez, PhD Service: ? Author Type: Psychologist Type: Progress Notes Filed: 06/28/2021 2:45 PM Note Text: Received mental health records from [facility]. Note from 05/06/21 revealed pt has [...] medical records for scanning. Em Fernandez, psychologist [facility] Evaluation note Note Date & Type Note Facility Evaluation note No assessment information availa [facility] Work Phone: Evaluation note Note Date & Type Note Facility Evaluation note Diagnosis Chronic pain of both knees documented in this encounter [facility] Summary Purpose Family History No Family [...] section and content) DATE CREATED AUTHOR 02/14/2018 [facility] DATE CREATED AUTHOR AUTHOR'S ORGANIZ ATION 02/16/2018 [facility] DATE CREATED AUTHOR AUTHOR'S ORGANIZ ATION 10/09/2018 [facility] DATE CREATED AUTHOR AUTHOR'S ORGANIZ ATION 10/11/2021 [facility] DATE CREATED AUTHOR AUTHOR'S ORGANIZ ATION 10/28/2022 [facility] DATE CREATED AUTHOR AUTHOR'S ORGANIZ ATION 11/13/2022 [facility] DATE CREATED AUTHOR AUTHOR'S ORGANIZ ATION 2023 [facility] DATE CREATED AUTHOR AUTHOR'S ORGANIZ ATION 01/09/2024 [facility] DATE CREATED AUTHOR AUTHOR'S ORGANIZ ATION 01/30/2024 [facility] DATE CREATED AUTHOR AUTHOR'S ORGANIZ ATION 02/01/2024 [facility] EPIC Goals (unrecognized section and content) Goals may [...] September 19, 2023 End: September 19, 2023 Director Hris Relationship Specialty Start Date End Date Shalini Coffey MD [address] [place] [address] PCP - General Family Medicine 08/05/23 Reason [...] BE BASED ON THE PRIMARY CLINICAL RECORDS. [facility]. provides no warranty or guarantee of the accuracy or completeness of information in this document.
[2024-02-12 07:44] VITALS: BP 121/81; PULSE 85; TEMP 36.6; O2SAT 96
[2024-02-12 07:57] LABS: HCG Qualitative NEGATIVE (NEGATIVE); Internal Control Within Normal Limits
[2024-02-12] MEDS: 0.9 % SODIUM CHLORIDE 500 ML IV (08:12)
[2024-02-12] MEDS: BUPIVACAINE HCL 0.25% PF 25 MG/10 ML VIAL 4 ML INJ (08:54)
--- NOTE | 2024-02-12 08:54 | P.ON_ITS ---
Date of procedure: 02/12/24 Pre-op diagnosis: Pain due to lumbar spondylosis without myelopathy Post-op diagnosis: same as pre-op Procedure: Procedure: Bilateral L3-4, 4-5 radiofrequency ablation Medications: Bupivacaine 0.25% 6cc, lidocaine 2% 5cc, kenalog 80mg The patient was seen and examined in the preoperative holding area.? The site was marked.? Written informed consent was obtained and placed on the chart.? The patient was brought to the medical procedure unit and placed in the prone position.? A timeout was completed verifying correct patient, procedure, positioning, and special requirements.? The skin overlying the target points, the designated medial branch, were prepped and draped in the usual sterile fashion.? The target point was achieved with a 20-gauge 15 cm with a 10 mm curved active tip radiofrequency cannula under direct fluoroscopic visualization.? The needle was inserted at level L3 on the right side. Needle tip position was confirmed with lateral fluoroscopic position.? Motor stimulation was carried out at 2 Hz up to 5 volts with the absence of extremity activity.? This was repeated at level L4, 5 on right side.?? Sensory stimulation was carried out.? Concordant pain was realized at the above- mentioned sites.? Then radiofrequency lesioning was carried out times 90 seconds at 80 degrees times 2 lesions at each level.? The radiofrequency probe was removed prior to cannula removal.? The above-mentioned injectate was placed in 1 mL increments.? The needle was removed. The same procedure, with the same steps, was then completed on the left side at the same levels. Insertion sites were covered.? The patient was taken to the postoperative recovery area and monitored for an appropriate length of time before being found suitable for discharge in the company of a responsible adult. Anesthesia: MAC Surgeon: Najma Richardson Pathology: none sent Condition: stable Disposition: no change
[2024-02-12] MEDS: TRIAMCINOLONE ACETONIDE 40 MG/ML VIAL 80 MG INJ (08:55)
[2024-02-12] MEDS: LIDOCAINE HCL 2% 400 MG/20 ML MDV 16 ML INJ (08:55)
[2024-02-12 08:58] VITALS: BP 129/79; PULSE 74; TEMP 36.6; O2SAT 98
[2024-02-12 09:00] VITALS: BP 109/87; PULSE 73; TEMP 36.6; O2SAT 95
== END 2024-02-12 09:19 | disposition home or self-care (01) ==
LOC: SURGOUT 07:09
PROVIDERS: PCP Physician Assistant; Visit Provider Anesthesiology
PROC: (CPT 1940; principal; 2024-02-12 08:30)
DX: M47.816 Spondylosis without myelopathy or radiculopathy, lumbar region (principal)
CPT/HCPCS: 36415; 64635; 64636; 84703; J0665; J2250; J2704; J3301

== ENCOUNTER 2024-04-04 11:30 | Outpatient (OUT) | payer MEDICAID, SELFPAY ==
--- OUTSIDE RECORDS SUMMARY | 2024-04-04 11:52 | XMS_ITS | CCD ---
Author Organization [facility] CliniSyhi Care Team Providers Care Educational Guidance Counselor Name Role Phone FRANCOISE BARNES Unavailable Unavailable ESPERANZA, DANUTA F Unavailable Unavailable Gus, Ida Evans Attending Unavailable Gus, Ida Evans Attending Unavailable Gus, Ida Evans Attending Unavailable FRANCOISE BARNES Referring Unavailable MOLLY, FRANCOISE Admitting Unavailable HEMKAM, FRANCOISE Primary Care Unavailable HEMFRANCOISE HUMPHREY Attending Unavailable Tyler Petersen Attending Unavailable MOLLY, FRANCOISE Primary Care Unavailable TRENT ., SUNSHINE Admitting Unavailable TRENT ., SUNSHINE Attending Unavailable MISC, DR SLOAN Primary Care Unavailable [place]O, DR EM Snyder Consulting Unavailable TRENT Keller, [...] Provider UnavailMD Jamey Kapoor Attending Provider [phone] JUAN SzymanskiC Simona Sanders Attending Provider Shalini Coffey MD Primary Care Provider MATTHEW BANGURA Attending Unavailable ESPERANZA, DANUTA F Referring Unavailable ESPERANZA, DANUTA F Primary Care Unavailable ESPERANZA, DANUTA F Referring Unavailable ESPERANZA, DANUTA F Primary Care Unavailable ESPERANZA, DANUTA F Referring Unavailable ESPERANZA, DANUTA F Primary Care Unavailable ESPERANZA, DANUTA F Referring Unavailable ESPERANZA, DANUTA F Primary Care Unavailable ESPERANZA, DANUTA F Referring Unavailable ESPERANZA, DANUTA F Primary Care Unavailable SEPERANZA, DANUTA F Referring Unavailable ESPERANZA, DANUTA F Primary Care Unavailable ESPERANZA, DANUTA F Referring Unavailable ESPERANZA, DANUTA F Primary Care Unavailable HEMFRANCOISE HUMPHREY Attending Unavailable HEMFRANCOISE HUMPHREY Attending Unavailable HEMMERFRANCOISE Attending Unavailable GERMAINE BOLIVAR Attending Unavailable HEMFRANCOISE HUMPHREY Attending Unavailable HEMFRANCOISE HUMPHREY Attending Unavailable HEMFRANCOISE HUMPHREY Attending Unavailable Giedraitis , Andrius Jay Attending Unavailable Giedraitis , Andrius Pierre Attending Unavailable Giedraitis , Andrius Claudioytautadarsh Attending Unavailable Giedraitis , Andrius Claudioytadrian Attending Unavailable Giedraitis , Andrius Pierre Attending Unavailable Giedraitis , Andrius Claudioytautadarsh Attending Unavailable Giedraitis , Andrius Claudioytautadarsh Attending Unavailable Simona Szymanski Admitting Unavailable NON STAFF Primary Care Unavailable Simona Szymanski Attending Unavailable Jamey Morgan Attending Unavailab le Jamey Morgan Admitting Unavailab le NON STAFF Primary Care Unavailable Allergies Allergy Classification Reported Allergen(s) Allergy Type Date of Onset Reaction(s) Facility (1 source) Cephalexin; Translations: [Keflex] Drug Allergy [facility] Repository (6 sources) Clindamycin; Translations: [clindamycin] Drug Allergy 5 [facility] Repository (7 sources) Codeine; Translations: [codeine] Drug Allergy 5 [facility] Repository (1 source) NSAIDs; Translations: [NSAIDs] Propensity to adverse reactions (disorder) [facility] Repository (5 sources) Penicillins; Translations: [penicillins] Propensity to adverse reactions (disorder) 5 [facility] Repository (1 source) Sulfonamides (Antibiotic); Translations: [sulfa drugs] Propensity to adverse reactions (disorder) [facility] Repository (1 source) alot of ATB's, I dont know names; Translations: [alot of ATB's, I dont know names] Propensity to adverse reactions (disorder) [facility] Repository (1 source) Penicillin Drug Allergy [facility] Repository (1 source) Sulfonamides (Antibiotic) Drug allergy (disorder) [facility] Repository (4 sources) Sulfonamides (Antibiotic); Translations: [SULFA (SULFONAMIDE ANTIBIOTICS)] Allergy to substance 5 [facility] (4 sources) erythromycin base; Translations: [ERYTHROMYCIN BASE] Allergy to substance 7 [facility] (2 sources) Bacitracin / Polymyxin B; Translations: [BACITRACIN-POLYM YXIN B] Drug Allergy 3 [facility] Work Phone: (2 sources) Ciprofloxacin; Translations: [CIPROFLOXACIN] Drug Allergy [address] [facility] (2 sources) Erythromycin; Translations: [ERYTHROMYCIN] Drug Allergy [address] [facility] (1 source) Penicillin G Drug Allergy 3 [facility] (1 source) Sulfonamides (Antibiotic) Drug Allergy 5 [facility] (2 sources) Soap; Translations: [SOAP] Allergy to substance [address] [facility] (1 source) Grass pollen; Translations: [GRASS [...] evening. Take with meals. 0 04/25/2023 Active [id number] 200 actuat albuterol 0.09 mg/actuat metered dose [...] once daily cholecalciferol (Vitamin D-3) 250 MCG (80138 UT) capsule Indications: Vitamin D deficiency Take 1 capsule (250 mcg) by mouth 1 (one) time each day at the same time. 90 capsule 3 02/06/2023 Active Continuous Blood Gluc Sales Planner (FreeStyle Samreen 2 [place]) device (1 source) Start: 02-23-2023 Continuous Blood Gluc Sales Planner (FreeStyle Samreen 2 [place]) device USE DIRECTED 0 02/23/2023 Active Continuous [...] (1 source) Polyene Antifungal nystatin (Mycostatin ) 255262 UNIT/GM powder Apply 1 application topically in [...] MR lumbar spine wo con [facility] [place] [address] [place] [address] MRI Report Signed Patient: Marilee Arriaga MR#: [id number] : 1975 Acct:[id number] Age/Sex: 47 / F ADM Date: 09/19/23 Loc: MR Room: Type: [facility] Attending Dr: Simona STOCKTON Copies to: [...] [id number] Signed By: 09/19/23 1427 Normal [facility] XR pre/post mri xrayon 09-19 XR pre/post mri xray [facility] [place] [address] [place] [address] XRay Report Signed Patient: Marilee Arriaga MR#: [id number] : 1975 Acct:[id number] Age/Sex: 47 / F ADM Date: 09/19/23 Loc: Room: Type: [facility] Attending Dr: Simona STOCKTON Copies to: [...] [id number] Signed By: 09/19/23 1508 Normal [facility] ECHOCARDIO M/2D COMPLETEon 0 3-20-2023 ECHOCARDIO M/2D COMPLETE Patient: MARILEE ARRIAGA Exam Date: 11/07/2022 : 1975 Gender:F Ordering : DR FRANCOISE MARTINEZ Admission #: [id number] Family : Order #: [id number] CLICK HERE TO VIEW EXAM ECHOCARDIOGRAM REPORT [...] Shay Masters M.D. on 11/07/2022 at 19:16 [facility] Coding Summary.on 05-04-2022 Coding Summary. [id number] Gh0bWw+PGh lYWQ+ZB0DPTSzZ34xbQHzbN4SD8iAX H0ROPREJQXAYY9BKB0bmET6XDojE3S ybiAv LcfjmZKfOX08NUb2FTO5yEauOZkedT 4lvIVaW2e3SrNtLN36xI26LMwmRVEa LtF0BiSmfobrbIQe V6rhDpCqeZJnHud+PHRhYmxlIHdpZH AsQTmyQWNrUmZubIdzRO3eNu2jTWIv LWNvbGxhcHNlOiBj r3wrVXFjPCvgKE0ayJtkW9MlxVE3NC Azw4h8We47cDK+MNJcKZV6yGpkTPwx p245WrGcr6acZWB7 yTXhPAetBJY5B89zw3K8MYBcTVRyLS I1lIO1gJ5uqBidpivcL4EnrWIpBcZ9 YNB5eIHmiW6jyGli jaspnA0lEev+L80JJU7UTPKIUO9PJt z4M6WpKaihjCJ+XH91YKMsUU29gJCr zKUcx2lnbIe7UxYt YTUuWOA8qVmgCGfvb9QgKQZjU44bpF Hpw4E3WBKnbAiprZZrSjCyyYW2nY4d MYtooqnut7pehovs Icmdz0xcti16pZ19Y06jZDdsQPLiCD Q0CFNcECCzhWziva2eqU1aJc3+IDxj f0ueu1kotEg5CsQk PFLrvxSoxMbyZIT0l3AwGy66X3XtwS zku1BsOme8um89rRVyq0C4qXO1EYfs ITXbjI0qKOvlYwB6 UFGxMcZqpE52kSYfSZdoGp5syDqrbW uyCX3cBEVfstokMGKdxC4iFSTsrQOo aEqsNE8eEGPrfhxa i212TdAqSSB3NEQymUEoK7RfsU1bUz FpVXTyTJUdZ4NavGAcXPjnP123WScx JtT2KYSfhlBhU9Bo GTPcwCjvJyL7s9F9Uz4Io7KjqsbyEG Z2IDhqVKW4IeR3AfWqRlP0L5PcGir1 BEPpvDmrUQ2gS8Wk FGEmkedytammpZJ2TJRtZVTupM29eF ZsSGdtSx9md4Z3o259FWXjTDWbeB35 Hh3koKhjTAQztNSU wV4mucamf9pivjzpNuVmMCPbBGx5VZ z3FOXnoIbxIpZzDPK2InD0TFC5zCEs yT4jpHclnqhzzT8j Oyc+D73rmS1qAOC1LOG0qtxaWTAugx GpQA14XZ67V8FbAdhcdENnpPB+PGRp wdYqqJhvPN8wEmPz c3mjf6EmAAzqZ7OsIAMuQMijYbg7WY NhDDA6tKX7iJ6gGTQgIKqvb5I4jSX0 U1JdvnLnnb5fn8sf WUSaIQatU64xmQGee7T2ZJKkqXO4PK HtyOqnLdXhwW79Uah+FGHuhSwjn2Dt Hwyjz2sxh3besHv4 CnLgWIJhviVjuQqgYJB3k6OxLc55A2 2eLDraQTTsTLZiFBZxHLYxnEknfh0m pV1vNu6+PGNvbCB3 oBT6hN1zFKXmKnR1TUgiT284HsMepU MpHoqhp8fxa8nbbKr1VsMnMABpfcWm vIuuCUD3m4QvQy22 W81wKQoqKNQvBCWsMTVnDRAjzLdgcq 0grK2lNe5+IS2le7zrtj50cT75mHI+ ZDAnBGG4uSwzPQtf SJRteO4rHJepWlE8AUKeUjAdwQ16nI WhBAhiDw8kvYnvvVqdSI9lQUJwsjsc l724RzThy0mmWFXq nODnADfjOKA6L44nd1K1KFNjFMJsJC B7xVD3fM2hvRsmboshrCMfwGthafSf xVzuWZkrOLrbI690 RVKajKvoNhGdfDqzvwIwSiExDRr7K0 EkOwm4MZLywGrvYR4grAAcZPhtWy2m uWhlwJbdLT0gLWWs bkvng700WnIrf7bbSVPzhWOnPXlyXP X7S67am0A3JJAfGEEzCOX6qTX3nI4k bGlnbjogbGVmdDsg cdXpfFobGAdrSXdzS219UWGnaOomKz MljhIxXRQrdKF3OU66TA97qCHov7L6 sQE6O2OfEPHapxri rqrgiSW2EZHhVXMqwL43Ie5gnLseDi 4oKCApSHU0XIIuuFMjZ5VbeF7sZsNs FLNzBKYlJ8YrgJIx VImeF673WKyvYyW9GRWqbyZiE8QyYZ RxyYyhWoF8i5X0Ey8GU2Z0QR57VW20 gYNzm7B8tNK0H6Vg UIKgiczcuexreUT2TVFmLJQoiQ65Vu 4zvIeqTn9eVDCmEDW9XCHqnSEfY5Ur tQ6cOtSsDNVmYIWv A1MzpSQcAVagA138NTxnYtP1IBCsrk XdO3AkTUZuqHaeUlS1a3N6Si9UQMx8 QQ68ZU58bSHbm7W9 eNB9F2YtEOCmzlzajfbskVA8ZRTnBD NmfN84Kt6imXwpDq4kKQPpXEO4XWMr kVUlZ0QfrQ8dAfUn GNBxDHTnN5UneUQsAVcwC907XWfpYr C9BXOkyfIuI1VdUBGnnYkvXpE2e0G9 Xn7JGIYmQZ42PAF1 qKP1MD31MF18K3CpEwysiUVqoOO+PH RhYmxlIHdpZHRoPScxMDAlJyBzdHls DV7uKm3rWYFxUZVs wJkvhGXwMfFba4tvBLOhAVycMN2scB vbR7LewXN4VFZyh3r2Ey91K18aS3Ub dXA+KYWyfZD2mCC2 zW4zIwEjMaP0NMsxW049GnDbvURsBl oln9owx9rpqJk1RlS4RBIpfgNqnRsl TGS2d6PcDz15O90q JRnlIWTxQHJtRDQqQDEwxItytj1duP 9wIi8+GVMlzDN4nWV1jO4dXqKrXqL0 MKbyP268HaGaiIUm Sbfef2pqv9hzqRy3NcKfTVRgnxTspA mgVGJ9j8XoWb62G3HooCfgd0NoVod1 sl77pKQns8U6uPI5 Z2ZiOKOnftmpoVGvoLkhKH3dBGSdos odSUDbhM5kJIAqZ9i8UsNbCuG7APvv A4GqwkX8FIKefXFl JCssDEK5P92gy7S2MEBxPURmROX2lS T9iL0qrLmsciuojKJsqOzroyZzqJzv MKuvXLnxY372LJNl fSoxIWZrmM2aXQBllDIljIfwNZ1wTL ZvywcrKgEMDGsVGKPRZX4CVMCEJnFJ BV71XK16pTWwz3R4 jRW3A4MuLEPleytoitlbaEU8YFClWY SuyX50lMRzVLojZj4pu3R7w071PCLb OHNdkI43Uu3udDew NPHqwHTGbZ6gpgtmn5vnrhnmTiGrNK YsSAq1UNe2NUTfpWiyMhKsRAF1HiY3 ARS1aYQupS7qpHae egvrkW6pQok+WYLpJwHdKIk4CMriwT Q+CKXaOIL7sLygMKztHWRsyN3wHTMc C8w9OrVwEgF9SZjq K5PqDLAnuvsgPl11xM8yDvMpLkO4JG kqL3GdwqZ4WADxnGFxICioZHY0A01w r0Q1SLKpAUAcUAJ4 iWP3qJ4auEncaunxrDGvoPubarZrxS qwBTyrACqvA607FWDfuVhyDsY1JLgr HHXzOH96KS51tHCc x4N4nLY7P3GaIIZwgnywmajjsMR3TE YsJJHznS46sIQxEAxsIc2fq5S8t620 BRVqQXTtzG00Tv8l oRukSVLakFDKnK5lkwlud7vatjfmBr FnDVSaEId6GKo3WHQqpPmdCxSuNDE6 BuP5YVA7aEQtaH8p cQnqlyjpjI9gKfs+FkXbKUxeBU98AP 77yMQyy3U0uZB8O6ZvEXDsnbfecxnz wAI1WFVjPUHuoA79 tAKuMUnlOc5ni9V7e738JBYwZJXvfX 00To6feObrTTYfuRVWoG2gsbgjc2zm cjogIzAwMDAwMDt0 PGl7AGFjkRbqRqJkNUH3KlP7YUN6sB FfvV9ydPnujzsdtY9sXvp+UmVjdXJy bR1tYL44MV03U1Fa PjwvdGFibGU+PHRhYmxlIHdpZHRoPS tmJOPcLiBxaIrrLU5xIv9xLGFyPZOt xYsplJHbCfLhr6cq IFRfQIzgAT6qyUgrJ3QqmYI2ZZObw0 v4Xv98I12dD9StkHC+AVZtmQJ9wEH8 rL6uYkVxYkX7BMie A154GtMfxMEdNmqjf7lad2nckUb2Ix BxKHEathOxmLneYKN9a3PiYf35Y40q IHdpZHRoPSIyMCUi RHTyjWlpqc3yeH9mSq4+BOQtrPG6wH D1vX0hMqQgZeE6HOrcK962VeJgaCCt MzdqL13yL5IixGX+ RVLsVnr5XDSnsUftLS7lcFWtHFemDc 9iHQO4UoBiEeRmPBqpO4VhYGVcqjna fgaadXE7NBTaEBXd gQ35Ne9pzLvqUw0dBVJnAID7KPIyoF SkT7RclU0mLpPoHUWcOWAtU3IiyNVz LVhwH809ZXxeAaJ8 OEOzolFpW5DlXMHsrVxvPtF9s6C2Xu 9TzJrsnXZlSP6rVbFuEZt9M0FdFse5 ZYJmkVqdHI8qbTDh FKrcXr8qxInmyWmjNZ0yGIUlhfhuz3 95VdSiq4iiFNDfeTIdTUkqMXA7Y70y q5F9SLDaCLYzLHO1 uOE3yA0gbOjhxmhziAPjqOedpaWnfJ ptJRdnDCegN320XQOhsJswNkFIVez2 L5BrYwc6OPXxnLac TO3bjNFuVWhmHu1rbDfndGxxZU7eWQ Vofsemu936ErKpr7rwOLYxxJDyQMgo YAE8K88jt1C3NPCd YXIcLIX5hWD3aD3ioUaeodejxOAhxV liigXnfSxlARayYLlkM850CABnpRmj Ls5MBgj2O4OpByz8 AEHsbZlrJV1ocMKiCZwhEj7kuEgvtT qbQI8hUEVfxraxh588FtFhz8jjTTMf fAGfVWdlEZX4Z46p k3S8WHXjHVIjDQM0sNZ2eV5gcSxwxt qzrCQckPkmjmKozJcxHKvtYLmfB840 IHRvcDsnPlBheWVy OjwvdGQ+IV96yz85G6AlDxfqXtn2RW NjPON0xZJ0iT3tWJCuSIqrj5L7lDD3 D4SxfuCjjf0ar7oe YXBz (more content not included)... [facility] Consent for Treatmenton Consent for Treatment [id number]:127 [facility] Outside Records Officeon Outside Records Office [id number]:127 [facility] Physician Orderon 04-14-2022 Physician Order [id number]#1.00CD:127 [facility] Coding Summary.on 11-12-2021 Coding Summary. [id number] Gh0bWw+PGh lYWQ+TP6TPKMhF90yiPVsvY7ME9yDL G1RVDUAEDCLLV8HBV7ecFF3DEbfK2B ybiAv VbhdlIMaPF97PBp4FGN8iMhdKHqpfY 7cwFEtL6a6NmDfDL42tJ64SGayTFWe AhY5GiYhdlspjIYq D2lqIuOynSYoMov+PHRhYmxlIHdpZH PeOGrwRARhPwZruDxdFY6wGl6lKVEo LWNvbGxhcHNlOiBj t3tnDSSeSXotMP2tqGkjK2KkgPQ2GN Quk8q5Zk30pPK+QKEmRJA5vHczSXic v660HiGou0akJDG7 mHMzMFdcLXC7K32xb1L3MSHkUHAwTS K4mSV1oD8msXogbtgfH4HznNMoOiA4 JJY0vRWmtS5nkSsm uzgzxJ2rCuf+G16EAJ2GLCJGYX4SQl h4I6BoIjayuOE+DQ81NYUcAY37gUPd pPEtk7qhoTy8WbDh MYGsPKZ0aJmwWAytd1SyIICuN31dmR Mnk4N9PGQgdZtmgJHsFwWlwUD7bK2m URnmzgnea1puxngn Sjkyn5piwn68pR29W73hXUgiLLSxXG P8HFIrUQHjgBovzt0bkJ1wWt7+IDxj s3nbk2hgeTc2XxAp RZTgqeTykYruAYO3l8UhZl29N5MzpZ his5ErDka4gn64mFCvn5B8bOM9JGkk KFJakF8kQFibYwZ4 SIWhLzBmeX26pZJrUXzuLu9pgAnwkU ekYS8zKHEjatwzFTIkjH0yPDYcaNIz gOhpSH4pPEZlzqau e569YyTaUCS6DCUkyNXiV3JhwO8fRx QvFAXuOEJgU2PbuRWuFGgjV709RVgw PqO6VIZfmnNwY2Lp UZNtxFlsVyL2i5B8Xa3Gy5MwsdfjXN Y5FOghLMWaZtA5GqWkRnW9P4XgXrq1 OEXtqIqrUY6xF9Pj JQSzgaugekktnDH9DUUuRKGxvA25kD RrULluPj0by9H4z652NIArPEVgxR93 Po9fnRauKGHrmOEI fA2ssmrol7bsrsbbPcKaTDCqHEr5BE y9RNGnhUflTrXuBNZ3EmY2MYA1oAGb rC9amQrmocaqtU2q Oyc+F70eaN5xURJ9WPI2sjwtBXOarl UmEN57XL62Z4DuArcpzLCvyHT+PGRp loGizRikJW1tJrNn x5wrg8CeHHpgH1ZtPBFtJFcoXcv6FP UhCTQ2sOI4tT1zIWLrYZymn0G8kXN4 O2HpyeZvnk1sp3ch OKXnSYqmP19xmWOze4E5GIZluLC2GZ EaaZxtXiRokF07Vzg+AYJldLhbm3Jf Hkgwg6ceb8chvBc6 IiHaBANmypPumXfoQDV4l9BoWv75D5 7mMCasREXnFILpOBQcYXNyjTjixh9h bN0tDb0+PGNvbCB3 aZN7vN9sWYWuFjB0HZvaD077VaXkmP HbIcwgx3drr0vakRw1KeTcDQSwrdJs eQvhKLS1j2NiNr31 C54yCKuzOVMbRHHlCCRqXVCntTtqoe 7oaG5zPy9+SB9nh7eozt00xX08dRS+ RVQhHTF7eJcpVFtm CHPdiS5hAFdeEgP5JGAxYoUfgQ84sF EbMTwoGm9jyActmHqmGQ8eZCGwotip i091IxCaz7vyIMDn aUZfGBvlUJX4A97yx9H2JWNpRGIiRS P0fYL6pD2yhYztmtqdaRTrhJptebLv oMnjBPzmZZlrJ182 ZKKutPrtEfDdgZvqvoMqOwSjGRs0W8 LsWke2PJQmnDbgPC6ikCIePTgeZu4a hUyyiGnxPF2vWOCq qsrhv423DcAkp5guHBGvzBXsHEolUT D9B52rc0P4FZOkIKTmJMV7aOI5qX6k bGlnbjogbGVmdDsg iiZuhTrhXHbkONarV786DFYukDvwVg LujpMhQGUkfYC6TU75JP15vXLzc0J3 nEB7W7SuKKEekkfl pdwioFP3JTScSASzyH86Ru9liGudAk 5tOKCnCGB7LUCisVEqE2SjuY7fChWo BZQkEWMbU4MxtBTs AGvlT950KUorEpN4ZPZhgjQoX7JqEJ EgoGtzItT6h5D9Ji3LL5G1BF05DX40 mWKlu0N5yWL9H4Of ECRtrtlwyxdqeJE4YJQeOOBkmZ22Oh 8wrDmcLu6hZFZpCIP2MJIckGPiE3Xg eU2jNjGtGONqYGGv D2CczQFyMZwfH567QVusHnS0UFFiwy IdD4YuMFCydSlyDuD1o9Y2Qh5ADRb5 VP33NQ44jQJvn7Z8 kRJ4S4PeCHPepjfpuoripCP9DYQrEW YohE02Sp9fsUwzNg7sFAFdMSL5AZPp eHDmM6MxwJ6yWjFi WMIbIOQcD5XcvLOpNBnbB177PYqgUl V2HYKkjqYzZ1QeVOUvzIksJcH0l0S7 Mf9AVQTqEF13HJX8 rYY8NM20EM35O4CwCdxppZXweBO+PH RhYmxlIHdpZHRoPScxMDAlJyBzdHls DS1hQg6qKDImAONd cQrvaXGlAyFkt8gyZDVwWWcoOJ7yeS cwV1LryCF6SYNlb3o5Oj87A13bI4Cy dXA+QUTfeFX6yVC3 rX2fRbOkKqS0CWnrV597JqKpdXYjDn nxx4xhv5yikOy4ErW6YAAzozWjkKhw WQU7y3QdRi99X64q CYnyIHSdEWKbXFHxRJVnlYxfnt2epK 9wIi8+OJWfrLY8bIO2rD8qQkFuAgT1 KYseX916NmIhlXNn Uzeqi7gfb3rvkFg7UtWnMJAayuWmfD stUGX2e2FpWy93I2HyfRbls7IsYnf2 dx87uAWef3L0uIG1 Z9XzKSBxuimydWFehVdwBP5xIDYwma sjMZShpR7jZQYrW8z4KoErWaU4PMkm T0CqrcI3YLLdkXEg AThiQUE2Z45gy5E9ROXuNNViSAX4kZ B4jZ7pkRuuxwslgTGugLmtgePmjZvb OOcpJEzzY736MGAb tZjsVLAjsN3jXCMpfJObfEtmCQ3nYF YxxcddPcNPVLiYVVZPWB8ECBUXKhMB VM90CI11pJIbn1M3 bDW8S6CkKCUdfvdqqikmdVM9BYJuIN AtwU00jIZkFJbrJt5xu7I2t985WLVx AVHjzT85If3cbLuy MQUjiHTLeW0swuzqi9obobnzGkLvSH NvZWz8MCg0HAHlgTfuSoXlFPG9SmZ7 TIB3cPSzmX9hjRhe onhsoF6aCeo+GDDsWfJqFAs8MXltpI Q+OGYpMOM3dWlvXWvpLWXxrY7fAILf F0g9TvElKkJ4YBlw U7RqXXVmvjbeRx35zF2nAyQvLhM7JT rtY9FqnfY0AVIzaGHoHAtsDUD9R78s e7W9KSAmTSZtGUR1 cNV7zF4pnKbdvvdziWIacPzscnCssC zlWKkwVEztK185GICgaPeoSiNuNSli DAEsYF05SZ88dKRb p3D9dXZ4P8LeYKKsogogtmpjsVL9KV BwLHEpeJ98oIZpVKveCw4sp4U8k621 VYGtMCAbfM22Tb2n rRlmCCIkeUAYwC2qzkzzj4ojbqfpCl FvXJIfEGu8GCo1LSCjqDxfFuTqMGV8 AtU3MBH5bWNteK4k oBevucrlcZ3vVne+WyTaMLpnGM04SX 38dCCkd0J3dHZ9A3CnLAIswwkqgkll kCL0PUKkSDHzrA60 lKYkFNrhSb2iw9D7b907GBMiTNXalU 90Pb8egSzqLADmxELLaV0bmfmkk7ym cjogIzAwMDAwMDt0 DWv4SSYhmEkcPoEoYEW3YuM4VMO8tM XqgA7xxYjcvmneqJ7oSmw+WU4cjyqx pbE4FF25GA04L2Pz PjwvdGFibGU+PHRhYmxlIHdpZHRoPS tuLGVvGoMllZeoLZ8zCc6dALRuEKJj gLyloNUyKvBab4mj QTYiGAzrVV1otXtpH5PukZF6OKEub0 m8Oy38W60tW3BrbLA+YQPieVZ4iEZ7 cE7aViNsDyW8UGil U766AqQfiVWzXonbv5are1lmmCl2Er ZvUKXhldVghUapPAC1a9OcUs53P18k IHdpZHRoPSIyMCUi RIVmlDdddb2kyQ6zSs6+NRKbkQH2eX X0uE5cBwQuIxU6LCsdU193OmJcsFTl VgmeR76jN2AkbPY+ ZTDyOoa0XBNbgOugXW9tpYRnULaeDn 3dTYU9LrPzHwCkLWoqO4LaHPHqnhgz qaqepOV6XFGuZJBq eJ71Fy5hiJboZb4yGTGwOQK3EQFabG UuO6StbT5aIjJtXWOjKTOqG5KjlTWx BOhjY051TLnxOkR0 JJSjwtHjI6YhISGnhQdkFeF1y2T9Jc 8PtZatzZDzYB0nUpFwVNa7Q3DvWia2 WCCjmBdbJO5fhPGt HSebZi3erTjuoXmlGR1xUVDvaupfa8 61EjGbf1mhDBIrgHBuCYaoJXN6X59l j4R6BGNhKJJdPVI0 fKX8eT2rhCryagzelUVrhMyyvpMvoB mrAOenRXurN296CDKxyBzwPqQFGdl1 W2XlSaa7GCNqqTro AC0rfOThIZokIe1zuHxquAfaEP5zGU Saoyerr887NmJrx4njIXCfcCCaDTpy UOG1Q48us3R0LIUe RUZyVDA3nAI1nS8alHtieaawjQNijJ qtkkFzmBenDFquRJyzB231QBOqwAoo Ay5CSre2Z6WfSeo1 OMUemNeeDE8bqONmCQdcZg4soJwhlZ wzUC5nCJVypotmc444RoPtp9hdGMHk oAXhTJkoGQY2L14h l6C7NMReDQQkOLO7yOI9zK9lgRstbt ezzRVltDeekwJmtEnsUNixFEzxF993 IHRvcDsnPlBheWVy OjwvdGQ+PK18uc83I3NhIlzhRjj5NB GnLLO2dQW2yT2lCCGrXBgmv4G6jUW0 Z4XtfnVcqh6ay1ba YXBz (more content not included)... Normal [facility] Consent for Treatmenton 10-19 Consent for Treatment [id number]#[id number]:127 Normal [facility] Discharge Instructionson Discharge Instructions [id number]#[id number]:127 Normal [facility] ED Clinical Summaryon 2021 ED Clinical Summary [place] [id number] ED Clinical Summary Person Information Name: MARILEE ARRIAGA [facility]ip[facility] Age: 45 Years : 1975 Sex: [...] 16:00:59 11/05/2021 16:00:59 11/05/2021 16:00:59 ADDRESS: [address] [facility] [id number] PHYS DOC NOTES: MEDICAL INFORMATION: Prescriptions Given: New Medications [facility]/pharm[facility] #[id number], [address], [place] [id number], [phone] acetaminophen-hydrocodone (Methuen 325 mg-5 mg oral tablet) 1 Tablets [...] Follow up: With: Address: When: Em Mir [address] [place] [address] Business (1) In 3 days 11/08/2021 Comments: Return to the emergency room if your pain gets worse or any new symptoms. With: Address: When: FRANCOISEEMILE BARNES [address] [place] [address] Business (1) In 3 days DIAGNOSIS: 1:Avulsion fracture of left ankle; 2:Sprain of left foot Normal [facility] ED Note-Physicianon 11-06-19 ED Note-Physician Basic Information [...] and crutches was given. Patient was given Methuen in the emergency room. Will discharge patient home with Methuen and follow-up with Ortho. The OARRS report [...] for pain, 10 tab(s), Refill(s) 0, [id number], 158, cm, 11/05/21 13:26:00 EDT, Height/Length Dosing, 130, kg, 11/05/21 13:26:00 EDT, Weight Dosing 2. Sprain of left foot (S93.602A: Unspecified sprain of left foot, initial encounter) Orders: acetaminophen-hydrocodone, 1 tab(s), Tab, Oral, Once, Stop date 11/05/21 15:14:00 EDT, STAT, Start date 11/05/21 15:14:00 EDT Air Cast Crutches Post-op Shoe XR Ankle 3+ Views Left XR Foot 3+ Views Left Medications Administered Given Methuen 5/325 Tab, 1 tab(s), Oral Disposition Plan Patient Discharge Condition Stable Discharge Disposition Discharged home Discharge Prescription List Prescriptions Methuen 325 mg-5 mg oral tablet, 1 tab(s), Oral, q6hr, PRN Follow-up With When Contact Information Em Mir In 3 days 11/08/2021 EDT [address] [place] [address]- Business (1) Additional Instructions: Return to the emergency room if your pain gets worse or any new symptoms. FRANCOISE BARNES In 3 days [address] [place] [address]- Business (1) Additional Instructions: Patient Education Crutch [...] Tab, 100 mg= 1 tab(s), Oral, Daily Methuen 325 mg-5 mg oral tablet, 1 tab(s), Oral, q6hr, PRN ondansetron 4 mg/5 mL oral solution Prozac 20 mg Cap, 20 mg= 1 cap(s), Oral, Daily Prozac 40 mg Cap, 40 mg= 1 cap(s), Oral, Daily Qvar with Dose Counter 80 mcg/inh inhalation aerosol ranitidine 150 mg Tab, 150 mg= 1 tab(s), Oral, BID SEROquel 100 (more content not included)... Normal [facility] Comment on above: Result Comment: Elec tronically [...] 08/04/2001 Document Revised: 07/20/2018 Document Reviewed: 01/27/2017 [employer] Patient Education ? 2020 [employer] How to Use a Stirrup Ankle [...] the bra (more content not included)... Normal [facility] ED Patient Summaryon ED Patient Summary [place] [id number] Patient Discharge Instructions Person Information Name: MARILEE ARRIAGA Age: 45 Years Arrival Date: 11/05/2021 13:19:01 Discharge Diagnosis: 1:Avulsion fracture of left ankle; 2:Sprain of left foot Primary Care Physician: FRANCOISE GAY Provider Information Primary Provider: Tyler Petersen M.D. Advanced Burr Machine Operator:None The exam and treatment you received in the Emergency Department were for an urgent problem and are not intended as complete care. It is important that you follow up with a doctor, nurse practitioner, or physician?s conventions assistant for ongoing care. If your symptoms [...] Follow-up Instructions: With: Address: When: Em Mir [address] [place] [address] Business (1) In 3 days 11/08/2021 Comments: Return to the emergency room if your pain gets worse or any new symptoms. With: Address: When: FRANCOISE BARNES [address] [place] [address] [employer] (1) In 3 days In the event [...] opioids can be used to help relieve tvmwzyla-ep-frbdpe pain and are often prescribed following a [...] Administration (www.fd (more content not included)... Normal [facility] XR Ankle 3+ Views Lefton XR Ankle [...] Barnett MD Transcribed by: KAIDEN Technologist: Normal [facility] XR Foot 3+ Views Lefton 10-19 XR Foot 3+ Views Left Exam Date/Time: 11/05/2021 13:50 EDT Reason for Exam: Fall Report Refer to concurrent left ankle radiograph dictation. FINAL REPORT Dictated: 11/05/2021 2:04 pm Rony Barnett MD Signed (Electronic Signature): 11/05/2021 2:04 pm Signed by: Rony Barnett MD Transcribed by: KAIDEN Technologist: Normal [facility] MRI BRAIN W WO CONTRASTon MRI BRAIN [...] by:SUMANTH Garciaigned by:Margo Mendez MD02/13/18inal result Normal [facility] CNDSon 02-16-2017 CNDS HNO ID: [id number] thor: Mark Anthony (Res) AdenugaService: General SurgeryAuthor Type: ResidentType: Discharge SummariesFiled: 02/16/2017 11:44 AMNote Text:The [place] [id number] or ([phone]) CC-[facility] O N F I D E N T I A L I N F O R M A T I O N -----[facility] DOCUMENTDISCHARGE SUMMARYPatient Name: Marilee Buckner Date: 02/13/2017Discharge Date: 02/16/2017Attending Physician: Dean Pfeiffercipal Diagnosis: Morbid obesitySecondary Diagnoses:Patient Active Hospital Problem List: Obesity, Class III, BMI >= 40 (morbid obesity) ([facility]) E66.01 (02/12/2017) Morbid obesity ([facility]) (02/13/2017)Operations During Hospitalization:Laparoscopic Crystal en Y gastric [...] as needed.Future Appointments:Future AppointmentsDate Time Provider Department [place]02/23/2017 2:30 PM [id number] MORENO GENS A/M 03/09/2017 11:00 AM [id number], KASEY (PHD) GSPSMN GENS A/M BL03/16/2017 12:00 PM [id number] 2 GENBMI GENS A/M BLD04/06/2017 1:45 PM [id number]-YEVDYJXRMRENÉE MORENO GENBMI GENS A/M BLD05/16/2017 10:30 AM [id number], LISSY A GENBMI GENS A/M BLD05/16/2017 10:30 AM [id number] GENBMI GENS A/M BLDPatient will follow-up in clinic with Renée Moreno MD as scheduledabove, or sooner if the need arises.Electronically SIGNED by Licensed Independent Practitioner: Mark Anthony Jean MD Normal [place] [facility] Glucose POCT ([facility], [place], [place] A Use Only)on 02-16-2017 Glucose mass conc 105 mg/dL High 65-100 [facility] Comment on above: Performed By: #### G LUPOC ####[facility] [place], [place] [phone] NURSING PROGon 02-16-2017 NURSING PROG HNO ID: [id number] thor: Lilibeth Ortega (Rn) SUNSHINE Santoservice: (none)Author Type: Registered NurseType: Nursing Progress NoteFiled: 02/16/2017 11:37 AMNote Text: Nursing Progress NotePatient Name: Marilee OlivierJeraldRN: [id number] Location: [place] [address]/[id number] Da nena Note: Patient has been discharged [...] note was completed by: Lilibeth Santos RN [facility] NURSING PROG HNO ID: [id number] thor: Lilibeth Ortega (Rn) Danielle, RNService: (none)Author Type: Registered NurseType: Nursing Progress NoteFiled: 02/16/2017 10:27 AMNote Text: Nursing Progress NotePatient Name: Marilee OlivierJustinN: [id number] Location: [place] [address]/[id number] Da nena Note: Doing better this am, able to take all of pills and drink theKphos, took a shower, so taking in more po, pain controlled, no emesis, nomore bloody stool, ambulating VSS, on RA, expecting to go home today,continue to monitor.This note was completed by: Lilibeth Santos RN [facility] PROGRESSon 02-16-2017 PROGRESS HNO ID: [id number] thor: Hirma (Romain) BrunsService: General SurgeryAuthor Type: ResidentType: Progress NotesFiled: 02/16/2017 8:02 AMNote Text:General Surgery Progress NoteName: Marilee Tinsley Dillan: [id number]: 02/16/2017SUBJECTIVESubjective: No acute events overnight. Last melenotic [...] lb) LMP 01/27/2017 SpO2 94% BMI 62.73 kg/u8Njehzj/Output Summary (Last 24 hours) at 02/16/17 0759Last data filed at 02/16/17 0616 Gross per 24 hourIntake 290 mlOutput 950 mlNet -660 mlGeneral: NAD, alert, orientedLungs: nonlabored breathing on nasal canulaAbdomen: soft, nondistended, appropriately tender, incisions C/D/IExtremities: warm, well perfusedLabsCBCRecent Labs 02/15/1709608WBC 13.80* 11.75* 15.32* 15.53*HB 10.7* 10.9* 13.5 14.7HCT 32.6* 33.8* 40.2 44.1PLT 391 368 438* 479*BMPRecent Labs 4 510 608 914244IV 141 137 137 138K 4.2 4.5 4.0 4.6CHLOR 104 99 97 97*CO2 27 25 20* 24BUN 15 8 14 19CREAT 0.78 0.71 0.74 0.84GLUC 119* 115* 96 79CA 8.1* 8.8 9.9 9.4ASSESSMENT/PLAN41 year old female with morbid obesity now POD 3 s/p vrczleefnfyfLiog-ha-C gastric bypass. Bloody bowel movements resolved with stable H/H.- Phase 2 bariatric diet- Heplock IV- Wean O2- PO pain meds, hold toradol- Will discuss resuming DVT prophylaxis- Encourage incentive spirometry and ambulation- Anticipate discharge today on home Richelle Gordon [facility] Surgery ResidentPager [phone] Normal [facility] Basic Metabolic Panlon 02-15 Anion gap 10 mmol/L Normal 9-18 [facility] Comment on above: Performed By: #### B VIANCA MG1, PHOS ####[place] [phone] Calcium 8.1 mg/dL Low 8.5-10.5 [facility] Comment on above: Performed By: #### B VIANCA MG1, PHOS ####[place] [phone] Chloride 104 mmol/L Normal 98-110 [facility] Comment on above: Performed By: #### B MP MG1, PHOS ####[place] [phone] CO2 27 mmol/L Normal 23-32 [facility] Comment on above: Performed By: #### B MP MG1, PHOS ####[phone] Creatinine 0.78 mg/dL Normal 0.70-1.40 [facility] Comment on above: Performed By: #### B VIANCA, MG1, PHOS ####[place] [phone] eGFR (non-black) mL/min/{1.73_m2} Normal >60 [facility] Comment on above: Performed By: #### B VIANCA, MG1, PHOS ####[place] [phone] Glucose mass conc 119 mg/dL High 65-100 [facility] Comment on above: Performed By: #### B VIANCA MG1, PHOS ####[place] [phone] Potassium molar conc 4.2 mmol/L Normal 3.5-5.0 [facility] Comment on above: Performed By: #### B VIANCA, MG1, PHOS ####[place] [address] Sodium 141 mmol/L Normal 132-148 [facility] Comment on above: Performed By: #### B VIANCA MG1, PHOS ####[address] Urea nitrogen 15 mg/dL Normal 8-25 [facility] Comment on above: Performed By: #### B VIANCA, MG1, PHOS ####[address] CBCon 02-15-2017 Erythrocyte distribution width Auto Ratio (RBC) 12.9 % Normal 11.5-15.0 [facility] Comment on above: Performed By: #### C BC ####[place] [address] Erythrocytes (RBC) 3.63 10*6/uL Low 3.90-5.20 [facility] Comment on above: Performed By: #### C BC ####[place] [phone] Hematocrit (HCT) 33.8 % Low 36.0-46.0 [facility] Comment on above: Performed By: #### C BC ####[place] [phone] Hemoglobin mass conc (Bld) 10.9 g/dL Low 11.5-15.5 [facility] Comment on above: Performed By: #### C BC ####[place] [phone] MCH 30.0 pG Normal 26.0-34.0 [facility] Comment on above: Performed By: #### C BC ####[place] [phone] MCHC mass conc (RBC) 32.2 g/dL Normal 30.5-36.0 [facility] Comment on above: Performed By: #### C BC ####[phone] MCV 93.1 fL Normal 80.0-100.0 [facility] Comment on above: Performed By: #### C BC ####[place] [phone] Platelet mean volume (PMV) 8.5 fL Low 9.0-12.7 [facility] Comment on above: Performed By: #### C BC ####[place] [phone] Platelets 368 10*3/uL Normal 150-400 [facility] Comment on above: Performed By: #### C BC ####[place] [phone] WBC (Leukocytes) 11.75 10*3/uL High 3.70-11.00 [facility] Comment on above: Performed By: #### C BC ####[place] [phone] CBC and Differentialon 02-15 Abs Baso 0.02 k/uL Normal 0.00-0.10 [facility] Comment on above: Performed By: #### C BCDIF ####[place] [address] Abs Orange 0.97 k/uL High 0.00-0.86 [facility] Comment on above: Performed By: #### C BCDIF ####[place] [phone] Abs Neut 8.11 k/uL High 1.45-7.50 [facility] Comment on above: Performed By: #### C BCDIF ####[place] [address] Basophils/100 WBC Auto (Bld) 0.1 % Normal [facility] Comment on above: Performed By: #### C BCDIF ####[place] [address] DTYPE Auto Diff Normal [facility] Comment on above: Performed By: #### C BCDIF ####[place] [address] Eosinophils 0.35 10*3/uL Normal 0.00-0.45 [facility] Comment on above: Performed By: #### C BCDIF ####[place] [phone] Eosinophils/100 leukocytes 2.5 % Normal [facility] Comment on above: Performed By: #### C BCDIF ####[place] [address] Erythrocyte distribution width Auto Ratio (RBC) 13.1 % Normal 11.5-15.0 [facility] Comment on above: Performed By: #### C BCDIF ####[place] [phone] Erythrocytes (RBC) 3.51 10*6/uL Low 3.90-5.20 [facility] Comment on above: Performed By: #### C BCDIF ####[place] [phone] Hematocrit (HCT) 32.6 % Low 36.0-46.0 [facility] Comment on above: Performed By: #### C BCDIF ####[place] [phone] Hemoglobin mass conc (Bld) 10.7 g/dL Low 11.5-15.5 [facility] Comment on above: Performed By: #### C BCDIF ####[place] [phone] Lymphocytes 4.35 10*3/uL High 1.00-4.00 [facility] Comment on above: Performed By: #### C BCDIF ####[place] [phone] Lymphocytes/100 leukocytes 31.5 % Normal [facility] Comment on above: Performed By: #### C BCDIF ####[place] [phone] MCH 30.5 pG Normal 26.0-34.0 [facility] Comment on above: Performed By: #### C BCDIF ####[place] [phone] MCHC mass conc (RBC) 32.8 g/dL Normal 30.5-36.0 [facility] Comment on above: Performed By: #### C BCDIF ####[place] [phone] MCV 92.9 fL Normal 80.0-100.0 [facility] Comment on above: Performed By: #### C BCDIF ####[place] [phone] Monocytes/100 leukocytes 7.0 % Normal [facility] Comment on above: Performed By: #### C BCDIF ####[place] [phone] Neutrophils/100 WBC Auto (Bld) 58.9 % Normal [facility] Comment on above: Performed By: #### C BCDIF ####[place] [phone] Platelet mean volume (PMV) 8.3 fL Low 9.0-12.7 [facility] Comment on above: Performed By: #### C BCDIF ####[place] [address] Platelets 391 10*3/uL Normal 150-400 [facility] Comment on above: Performed By: #### C BCDIF ####[place] [phone] WBC (Leukocytes) 13.80 10*3/uL High 3.70-11.00 [facility] Comment on above: Performed By: #### C BCDIF ####[place] [phone] Glucose POCT ([facility], [place], [place] A Use Only)on 02-15-2017 Glucose mass conc 111 mg/dL High 65-100 [facility] Comment on above: Performed By: #### G LUPOC ####[place] [address] Glucose mass conc 121 mg/dL High 65-100 [facility] Comment on above: Performed By: #### G LUPOC ####[place] [address] Glucose mass conc 99 mg/dL Normal 65-100 [facility] Comment on above: Performed By: #### G LUPOC ####[place] [address] Glucose mass conc 116 mg/dL High 65-100 [facility] Comment on above: Performed By: #### G LUPOC ####[place] [phone] Magnesiumon 02-15-2017 Magnesium 2.0 mg/dL Normal 1.7-2.6 [facility] Comment on above: Performed By: #### B MP, MG1, PHOS ####[address] NURSING PROGon 02-15-2017 NURSING PROG HNO ID: [id number] thor: Lilibeth GarciaRn) Doroteo Santos: (none)Author Type: Registered NurseType: Nursing Progress NoteFiled: 02/15/2017 4:15 PMNote Text: Nursing Progress NotePatient Name: Marilee PruittN: [id number] Location: [place] [address]/CL-[id number]-06 Da nena Note: Dr called to inform that patient had another bloody stool itwas dark red, no change in vital signs HR has remained in 70's, on RA, noincrease in pain, patient is only taking sips of clears otherwiseunchanged , stable, lab orders again @ 1800.This note was completed by: Lilibeth Santos RN [facility] NURSING [facility] HNO ID: [id number] thor: Lilibeth Ortega (Rn) Doroteo Santos: (none)Author Type: Registered NurseType: Nursing Progress NoteFiled: 02/15/2017 10:29 AMNote Text: Nursing Progress NotePatient Name: Marilee PruittN: [id number] Location: [place] [address]/IM-[id number]-09 Da nena Note:Patient states she's feeling ok, just brought up some 'phlegm',( clearbubbles) no emesis, able to keep down 'bites' or sips of broth and tea,given IV phenergan, denies pain, encouraged to continue to ambulate,stable, call light in reach.This note was completed by: Lilibeth Santos RN [facility] H[facility]: [id number] thor: Liliana Echeverria) Rolo, RNService: (none)Author Type: Registered NurseType: Nursing Progress NoteFiled: 02/15/2017 5:53 AMNote Text: Nursing Progress NotePatient Name: Marilee SmithRN: [id number] Location: [place] [address]/[id number] Surgery paged [phone] Marilee Arriaga: patient had dark bloody BM. pleaseadvise. Liliana Eller [phone] No new ordersThis note was completed by: Liliana Seth, RN [facility] PROGRESSon 02-15-2017 PROGRESS HNO ID: [id number] thor: Mark Anthony (Res) TedService: General SurgeryAuthor Type: ResidentType: Progress NotesFiled: 02/15/2017 8:25 AMNote Text:General SurgeryProgress notesAdmitted: 02/13/2017OR date: 02/13/2017 Procedure(s) and Anesthesia Type: * LAPAROSCOPIC GASTRIC RESTRICTIVE SURG W/ BYPASS AND CRYSTAL-EN-Y = 40 (morbid obesity) (HCC) E66.01 (02/12/2017) Morbid obesity ([facility]) (02/13/2017)Hold Lovenox/Toradol, recheck labs, decrease [...] RNF, potential discharge tomorrowPaul MD Ted (PGY 2)[id number] 6PM weekdays and all through weekends: [id number] SNausea and emesis yesterday, improving and PO intake improvingSlept okayDark bloody BMs this AMAmbulating well OTemp (24hrs), Av.7 ?C (98 ?F), Min:36.4 ?C (97.6 ?F), Max:36.9 ?C(98.4 ?F)BP 147/78 Pulse 80 Temp 36.4 ?C (97.6 ?F) (Oral) Resp 16 Ht 154.9cm (5' 1 ) Wt (!) 150.6 kg (332 lb) LMP 01/27/2017 SpO2 99% BMI62.73 kg/b5QTDFGDM: Mild distress as actively nauseated and sitting up with vomitbag, alert and oriented x 3HEENT: NC/AT, EOM's intactRESPIRATORY: Respiratory effort unlaboredCHEST-CVS: HDSABDOMEN: Soft, obese and non distended, non tender, laparoscopic incisionsCDI with glueNEURO: Grossly non-focal02/14 0700 - 02/15 0659In: 3622 [PO:300; IV:3322]Out: 2180 [Urine:1850] Normal [facility] PROGRESS HNO ID: [id number] thor: Renée MorenoSerankitae: General SurgeryAuthor Type: PhysicianType: [...] PO intake improvesStacy Gale Moreno MD Normal [facility] Phosphoruson 02-15-2017 Phosphate 1.9 mg/dL Low 2.5-4.5 [facility] Comment on above: Performed By: #### B MP, MG1, PHOS ####[facility] [place], [place] [phone] Vital Signs Date Time Vital Sign Value Performing Clinician Faci lity 09-19-2023 09:41-0500 Body height 157.48 cm [facility] 09-19-2023 09:41-0500 Body weight 104.32 kg [facility] Encounters Encounter Date Encounter Type Care Provider Facility Start: 03-29-2024 ambulatory Jamey Minor acility:[facility] Start: 02-12-2024 End: 02-12-2024 ambulatory Najma Rcihardson MD [facility] Start: 01-31-2024 End: 01-31-2024 ambulatory FRANCOISE BARNES Not Available Start: 01-23-2024 End: 01-23-2024 ambulatory FRANCOISE BARNES Not Available Start: 01-04-2024 ambulatory [facility] Start: 12-29-2023 ambulatory [facility] Start: 2023 End: 2023 ambulatory [facility] Start: 12-12-2023 End: 12-12-2023 ambulatory GERMAINE BOLIVAR Not Available Start: 12-04-2023 End: 12-04-2023 ambulatory Najma Richardson MD [facility]: [facility] Start: 11-21-2023 End: 11-21-2023 ambulatory FRANCOISE BARNES Not Available Start: 10-31-2023 End: 10-31-2023 ambulatory FRANCOISE BARNES Not Available Start: 10-23-2023 End: 10-23-2023 ambulatory Najma Richardson MD [facility]: [facility] Start: 09-25-2023 Refill Francoise Barnes PA Work Phone: [facility] Comment on above: Chronic pain of both knees Start: 09-19-2023 End: 09-19-2023 Patient encounter procedure [facility] [place] Work Phone: Start: 09-19-2023 End: 09-19-2023 ambulatory NON STAFF [facility] Work Phone: Start: 08-05-2023 End: 08-05-2023 ambulatory FRANCOISE BARNES Not Available Start: 07-26-2023 End: 07-26-2023 ambulatory FRANCOISE BARNES Not Available Start: 07-17-2023 Registered [facility] Start: 06-05-2023 End: 06-05-2023 ambulatory [facility] Start: 05-01-2023 End: 05-01-2023 ambulatory Najma Richardson MD Facility:[facility] Start: 04-03-2023 End: 04-03-2023 ambulatory Najma Richardson MD [facility] Start: 02-27-2023 End: 02-27-2023 ambulatory Najma Richardson MD Facility:[facility] Start: 11-07-2022 End: 11-08-[address] FRANCOISE BARNES Facility: Start: 06-27-2022 End: 06-27-2022 ambulatory SUNSHINE Keller Facility: Start: 04-27-2022 End: 10-26-2022 ambulatory FRANCOISE BARNES [place] Start: 04-22-[address] FRANCOISE BARNES Facil ity:[facility]1 Start: 11-05-2021 End: 11-05-2021 Emergency department patient visit Tyler Petersen [place] Start: 09-18-2018 Patient encounter procedure Ida Weber Facility:[id number] Start: 05-08-2018 Patient encounter procedure Ida Weber Facility:[id number] Start: 02-13-2018 End: 02-16-[address] [facility] Start: 12-19-2017 Patient encounter procedure Ida [...] 02-18-2024 Influenza vaccination Influenza Vacc ine (#1) [facility] Comment on above: Postponed from 04/21 (Patient Refused) Start: 02-11-2024 Screening for malign ant neoplasm of breast Mammogram [facility] Start: 10-25-2023 End: 10-25-2023 Patient encounter procedure 10/25/2023 1:00 PM EST Office Visit [facility] [address] [facility] [address] [place] [phone] Francoise Barnes PA [address] [facility] [address] [place] [address] [facility] Start: 12-14-2007 Screening for malign ant neoplasm of cervix [facility] Start: 1998 Screening for malign ant neoplasm of cervix Pap Smear [facility] Start: 1977 Screening for malign ant neoplasm of colon [facility] Immunizations Immunization Date Immunization Notes Care Provider Fa cili 05-30-2021 influenza, injectabl e, quadrivalent, preservative free Francoise MARTINEZ Work Phone: [facility] 05-30-2021 influenza virus vacc ine, unspecified formulation Francoise MARTINEZ Work Phone: [facility] 06-12-2020 influenza, injectabl e, quadrivalent, preservative free Francoise MARTINEZ Work Phone: [facility] 12-16-2018 tetanus toxoid, redu brina diphtheria toxoid, and acellular pertussis vaccine, adsorbed Francoise MARTINEZ Work Phone: [facility] Payers Date Payer Category Payer Self-pay [id number] 2022 [facility] [place] [id number] 2022-Present [address] [place] [address] [id number] 2022 Medicaid [id number] 2022 Unknown 2018 Unknown [id number] 2018 Unknown [id number] 1977 Unknown [id number] 2.16840.1.441451.3.579.2.356 1977 Unknown [id number] 2.840.1.827239.3.579.2.356 1977 Unknown [id number] 2.840.1.743703.3.579.2.356 1977 Unknown [id number] 2.16840.1.373716.3.579.2.727 1977 Unknown [id number] 2.16840.1.522031.3.579.2.727 1977 Unknown [id number] 2.840.1.047281.3.579.2.593 1977 Unknown [id number] .840.1.833251.3.579.2.593 1977 Unknown [id number] 2.16840.1.244853.3.579.2.593 1977 Unknown [id number] 2.16840.1.163274.3.579.2.1286 1977 Unknown [id number] 2.16840.1.557311.3.579.2.1286 1977 Unknown [id number] 2.16840.1.204838.3.579.2.1286 1977 Unknown [id number] 2.16.840.1.932397.3.579.2.1285 1977 Unknown [id number] 2.840.1.129615.3.579.2.1285 1977 Unknown [id number] 2.840.1.056064.3.579.2.1285 1977 Unknown [id number] 2.840.1.322688.3.579.2.1285 1977 Unknown [id number] 2.840.1.777836.3.579.2.1258 1977 Unknown [id number] 2.840.1.780341.3.579.2.1258 1977 Unknown [id number] 2.840.1.299525.3.579.2.1258 1977 Unknown [id number] 2.0.1.828522.3.579.2.1258 1977 Unknown [id number] 2.840.1.892253.3.579.2.1258 1977 Unknown [id number] 2.840.1.583365.3.579.2.1258 1977 Unknown [id number] 2.840.1.338178.3.579.2.1258 1977 Unknown [id number] 10.06.830.1.035181.3.579.2. 1977 Unknown [id number] 2.840.1.287505.3.579.2. 1977 Unknown [id number] 2.840.1.877353.3.579.2. 1977 Unknown [id number] 2.840.1.834417.3.579.2. 1977 Unknown [id number] 2.840.1.974791.3.579.2. 1977 Unknown [id number] 2.16.840.1.892878.3.579.2.196 1977 Unknown [id number] 2.16.840.1.077675.3.579.2.196 1959 Unknown [id number] Unknown [id number] 2.16.840.1.495899.3.579.2.531 Unknown [id number] 2.16.840.1.632327.3.579.2.531 Social History Date Type Detail Facility Tobacco smoking stat us NYIS Unknown if ever smoked [facility] Work Phone: Start: 1975 Sex Assigned At Female F [facility] Start: 09-18-2018 End: 01-23-2023 Tobacco smoking status NHIS Never smoked tobacco (finding) [facility] Start: 01-23-2023 Tobacco use and exposure Smokeless tobacco non-user [facility] Start: 07-26-2023 Alcohol intake Ex-drinker (finding) [facility] Start: 01-24-2023 End: 07-26-2023 History of Social function [facility] Start: 01-24-2023 End: 07-26-2023 Tobacco use panel [facility] Start: 04-26-2023 Alcohol Comment Caffeine intake: sod a [facility] Start: 1975 Sex Assigned At Not on file [facility] Telephone encounter Note 09-25-2023 Telephone Encounter [...] into patient's pharmacy. documented in this encounter [facility] Clinical Note 06-27-2022 Note Date & [...] authenticated by: EM LÓPEZ Date: 2022-06-27 15:38 [facility] Progress note 06-28-2021 Note Date & Type Note Facility 06-28-2021 Note HNO ID: [id number] Author: Em Fernandez, PhD Service: ? Author Type: Psychologist Type: Progress Notes Filed: 06/28/2021 2:45 PM Note Text: Received mental health records from [facility]. Note from 05/06/21 revealed pt has [...] medical records for scanning. Em Fernandez, psychologist [facility] Evaluation note Note Date & Type Note Facility Evaluation note No assessment information availa [facility] Work Phone: Evaluation note Note Date & Type Note Facility Evaluation note Diagnosis Chronic pain of both knees documented in this encounter [facility] Summary Purpose Family History No Family [...] section and content) DATE CREATED AUTHOR 02/14/2018 [facility] DATE CREATED AUTHOR AUTHOR'S ORGANIZ ATION 02/16/2018 [facility] DATE CREATED AUTHOR AUTHOR'S ORGANIZ ATION 10/09/2018 [facility] DATE CREATED AUTHOR AUTHOR'S ORGANIZ ATION 10/11/2021 [facility] DATE CREATED AUTHOR AUTHOR'S ORGANIZ ATION 10/28/2022 [facility] DATE CREATED AUTHOR AUTHOR'S ORGANIZ ATION 11/13/2022 [facility] DATE CREATED AUTHOR AUTHOR'S ORGANIZ ATION 01/09/2024 [facility] DATE CREATED AUTHOR AUTHOR'S ORGANIZ ATION 02/01/2024 [facility] EPIC DATE CREATED AUTHOR AUTHOR'S ORGANIZ ATION 02/14/2024 [facility] DATE CREATED AUTHOR AUTHOR'S ORGANIZ ATION 04/02/2024 [facility] ysician Group Goals (unrecognized section and [...] September 19, 2023 End: September 19, 2023 Educational Guidance Counselor Relationship Specialty Start Date End Date Shalini Coffey MD [address] [facility] [address] [place] [address] PCP - General Family Medicine 08/05/23 Reason [...] BE BASED ON THE PRIMARY CLINICAL RECORDS. [employer] [facility]. provides no warranty or guarantee of the accuracy or completeness of information in this document.
--- NOTE | 2024-04-04 12:21 | P.CN_ITS ---
Consult Note: HPI Data of Consult Patient: known to practice within the last 3 years Requesting Physician: Simona Szymanski NP Primary Care Provider: SHWETA BARNES Consult Narrative Reason for consult: chronic back pain Narrative: Marilee Uribe is a pleasant 47 year old female who follows for chronic low back pain and left leg pain. Pain today 8/10 burning shooting in left low back and left leg. continues medications through PCP with mild benefit. continues HEP as tolerated, previously failed greater than 6 weeks of PT/HEP. Recent repeat bilateral L3/4 L4/5 RFA providing 60% improvement in axial low back pain. cc:: CC: Simona Szymanski NP Review of Systems ROS Status of ROS 10 or more systems reviewed and unremark able except as noted in history and below Musculoskeletal Reports: back pain and extremity pain PFSH PFSH Medical History Surgical History S/P endometrial ablation ?Z98.890 - Other specified postprocedural states (ICD-10) S/P right knee arthroscopy ?Z98.890 - Other specified postprocedural states (ICD-10) H/O gastric bypass ?Z98.84 - Bariatric surgery status (ICD-10) S/P tonsillectomy ?Z90.89 - Acquired absence of other organs (ICD-10) Social History Smoking status: Never smoker Meds Home Medications and Allergies Home Medications ?Medication ?Instructions ?Recorded ?Confirmed ?Type acetaminophen 650 mg 650 mg PO Q12H PRN pain 02/13/23 12/08/23 History tablet,extended release (Tylenol Arthritis Pain) aripiprazole 400 mg suspension, 400 mg IM Q28D 02/13/23 12/08/23 History extended rel.intramuscular syringe (Wes [place]) buspirone 30 mg tablet 30 mg PO BID 02/13/23 12/08/23 History lumateperone 10.5 mg capsule 10.5 mg PO DAILY 02/13/23 12/08/23 History (Caplyta) tramadol 50 mg tablet 50 mg PO BID PRN pain 02/13/23 12/08/23 History trazodone 300 mg tablet 300 mg PO DAILY PRN sleep 02/13/23 12/08/23 History venlafaxine 100 mg tablet 300 mg PO DAILY 02/13/23 12/08/23 History zolpidem 5 mg tablet (Ambien) 5 mg PO BEDTIME PRN sleep 02/13/23 12/08/23 History tizanidine 4 mg tablet 4 mg PO BEDTIME 04/18/23 12/08/23 History acarbose 25 mg tablet 25 mg PO DAILY 08/01/23 12/08/23 History cholecalciferol (vitamin D3) 250 10,000 unit PO DAILY 08/01/23 12/08/23 History mcg (10,000 unit) capsule hydroxyzine pamoate 25 mg capsule 25 mg PO DAILY 08/01/23 12/08/23 History lamotrigine 150 mg tablet 300 mg PO DAILY 12/03/23 12/08/23 History ondansetron HCl 4 mg tablet 4 mg PO Q6H PRN nausea and vomiting 12/08/23 12/08/23 History Allergies Allergy/AdvReac Type Severity Reaction Status Date / Time erythromycin base Allergy Unknown Verified 02/12/24 08:12 [From E-Mycin] Penicillins Allergy Unknown Verified 02/12/24 08:12 shellfish derived Allergy Unknown Verified 02/12/24 08:12 Sulfa (Sulfonamide Allergy Unknown Verified 02/12/24 08:12 Antibiotics) codeine Allergy Verified 02/12/24 08:12 Exam Constitutional Documenting provider has reviewed patient's vital signs: yes Common normals: no apparent distress, oriented x3, healthy appearing, alert and well nourished General appearance: cooperative Nutritional appearance: obese HENOK Common normals: normocephalic, hearing grossly normal bilaterally and moist oral mucous membranes Head and scalp: normocephalic Eye Common normals: PERRL Pupil: PERRL Neck & C-Spine Common normals: full ROM General: normal visual inspection Chest Common normals: inspection of chest normal Respiratory Common normals: normal respiratory effort, no retractions and no use of accessory muscles Back & Pelvis Common normals: thoracic and lumbar spine normal to inspection Lumbar spine/lower back: ROM limited, pain with ROM, lumbar spinal tenderness and straight leg raise positive left Sacroiliac joints: SI joint(s) abnormal Other: tenderness over left PSIS, modified positive left fabir/fadir thigh thrust and gaenslen decreased sensation to left L4,5,S1 pattern strength 4/5 in LLE 5/5 in RLE negative facet loading Extremity Common normals: normal to inspection and full ROM Right lower extremity: knee joint Other: edema, enlarged diameter, pain with medial and lateral stress testing Neuro Common normals: oriented x3, CN's II-XII intact bilaterally, moves all extremities, no focal motor deficits, no sensory deficits noted and deep tendon reflexes 2+ bilaterally Sensorium/orientation: alert Motor exam: no movement abnormalities noted Psych Common normals: mental status grossly normal, thought process normal, cooperative, affect normal, speech normal and activity/motor behavior normal Speech: normal speech Thought process: normal thought process Results Additional Findings Additional findings: If on a controlled substance or opioids, I have checked an [place] report on this patient and there are no aberrancies noted in the prescribing history.??If on a controlled substance or opioid a drug screen was completed and reviewed within the last year, and if there has not been a drug screen completed we ordered one today to monitor higher risk, state monitored pain medication use. As part of providing excellent, safe, comprehensive care, the following was completed at our patient's visit: 1. A medication reconciliation and review to ensure accurate knowledge of current/active medications, including asking our patients to inform us about any [id number] medications or herbal remedies/nutritional supplements/alternative remedies. 2. A review to specifically ensure our patients have had annual screening for screening for depression, screening for tobacco use, and screening for unhealthy alcohol use. For concerning screenings had a discussion with the patient, provided patient education, and recommended follow-up with primary care provider when appropriate. If patient noted with a risk of falling, they received education on strength, gait, and balance training to prevent future risk of falling. Assessment and Plan Assessment and Plan (1) Lumbar stenosis with neurogenic claudication: (2) Sacroiliitis: (3) Lumbar spondylosis: (4) Lumbago: (5) Osteoarthritis of right knee: (6) Muscle spasm: (7) Lumbar radiculopathy: Plan left L4/5 L5/S1 TFESI under fluoroscopy, risks vs benefits reviewed for lumbar stenosis with NC/lumbar radiculopathy with 10mg po valium prior to procedure for anxiolysis left SIJ injection for sacroilitis with 10mg po valium prior to procedure for a nxiolysis continue medications through PCP f/u 2 weeks after injections completed
== END 2024-04-04 11:31 | disposition home or self-care (01) ==
LOC: PM 11:31
PROVIDERS: PCP Physician Assistant; Visit Provider Nurse Practitioner
DX: M48.062 Spinal stenosis, lumbar region with neurogenic claudication (principal); M46.1 Sacroiliitis, not elsewhere classified; M47.816 Spondylosis without myelopathy or radiculopathy, lumbar region; M54.50 Low back pain, unspecified; M17.11 Unilateral primary osteoarthritis, right knee; M62.838 Other muscle spasm; M54.16 Radiculopathy, lumbar region
CPT/HCPCS: G0463

== ENCOUNTER 2024-05-06 10:03 | Day surgery (SDC) | payer MEDICAID, SELFPAY ==
[2024-05-06 10:23] VITALS: BP 146/87; PULSE 81; TEMP 36.6; O2SAT 97
--- OUTSIDE RECORDS SUMMARY | 2024-05-06 10:24 | XMS_ITS | CCD ---
Author Organization [facility] Care Team Providers Care Appeals Board Referee Name Role Phone FRANCOISE BARNES Unavailable Unavailable [...] Unavailable MISC, DR SLOAN Primary Care Unavailable NORMAN, DR EM Snyder Consulting Unavailable TRENT Keller, [...] Care Provider UnavailMD Jamey Kapoor Attending Provider [phone] JUAN SzymanskiC Simona Sanders Attending Provider Shalini [...] HEMMERFRANCOISE Attending Unavailable GERMAINE BOLIVAR Attending Unavailable HEMMERFRANCOISE Attending Unavailable HEMMERFRANCOISE Attending Unavailable HEMFRANCOISE HUMPHREY Attending Unavailable Giedraitis , Andrius Jay Attending Unavailable Giedraitis , Andrius Pierre Attending Unavailable Giedraitis , Andrius Claudioytautadarsh Attending Unavailable Giedraitis , Andrius Claudioytautaadrsh Attending Unavailable Giedraitis , Andrius Claudioytadrian Attending Unavailable Giedraitis , Andrius Claudioytautadarsh Attending Unavailable Giedraitis , Andrius Vytautas Attending Unavailable Stephon, Simona E Admitting Unavailable Stephon, Simona E Attending Unavailable NON STAFF Primary Care Unavailable Eddie Jamey Admitting Unavailab le Eddie Jamey Attending Unavailab le NON STAFF Primary Care Unavailable Allergies Allergy Classification Reported Allergen(s) Allergy Type Date of Onset Reaction(s) Facility (1 source) Cephalexin; Translations: [Keflex] Drug Allergy [facility] Repository (6 sources) Clindamycin; Translations: [clindamycin] Drug Allergy 5 [facility] Repository (7 sources) Codeine; Translations: [codeine] Drug Allergy [facility] Repository (1 source) NSAIDs; Translations: [NSAIDs] Propensity to adverse reactions (disorder) [facility] Repository (5 sources) Penicillins; Translations: [penicillins] Propensity to adverse reactions (disorder) [facility] Repository (1 source) Sulfonamides (Antibiotic); Translations: [sulfa drugs] Propensity to adverse reactions (disorder) [facility] Repository (1 source) alot of ATB's, I dont know names; Translations: [alot of ATB's, I dont know names] Propensity to adverse reactions (disorder) [facility] Repository (1 source) Penicillin Drug Allergy [facility] Repository (1 source) Sulfonamides (Antibiotic) Drug allergy (disorder) [facility] Repository (4 sources) Sulfonamides (Antibiotic); Translations: [SULFA (SULFONAMIDE ANTIBIOTICS)] Allergy to substance 5 [facility] (4 sources) erythromycin base; Translations: [ERYTHROMYCIN BASE] Allergy to substance 7 Rash [facility] (2 sources) Bacitracin / Polymyxin B; Translations: [BACITRACIN-POLYM YXIN B] Drug Allergy 3 [facility] Work Phone: (2 sources) Ciprofloxacin; Translations: [CIPROFLOXACIN] Drug Allergy 5 Rash [facility] (2 sources) Erythromycin; Translations: [ERYTHROMYCIN] Drug Allergy 5 Hives [facility] (1 source) Penicillin G Drug Allergy 3 [facility] (1 source) Sulfonamides (Antibiotic) Drug Allergy 5 [facility] (2 sources) Soap; Translations: [SOAP] Allergy to substance 7 Swelling [facility] (1 source) Grass pollen; Translations: [GRASS [...] evening. Take with meals. 0 04/25/2023 Active [id number] 200 actuat albuterol 0.09 mg/actuat metered dose [...] once daily cholecalciferol (Vitamin D-3) 250 MCG (28762 UT) capsule Indications: Vitamin D deficiency Take 1 capsule (250 mcg) by mouth 1 (one) time each day at the same time. 90 capsule 3 02/06/2023 Active Continuous Blood Gluc [employer] (FreeStyle Samreen 2 [place]) device (1 source) Start: 02-23-2023 Continuous Blood Gluc [employer] (FreeStyle Samreen 2 [place]) device USE DIRECTED 0 02/23/2023 Active Continuous [...] (1 source) Polyene Antifungal nystatin (Mycostatin ) [id number] UNIT/GM powder Apply 1 application topically in [...] wo conon MR lumbar spine wo con [facility] [place] [address] [place] [address] MRI Report Signed Patient: Marilee Arriaga MR#: [id number] : 1975 Acct:[id number] Age/Sex: 47 / F ADM Date: 09/19/23 Loc: MR Room: Type: [facility] Attending Dr: Simona STOCKTON Copies to: [...] [id number] Signed By: 09/19/23 1427 Normal [facility] XR pre/post mri xrayon 09-19 XR pre/post mri xray [facility] [place] [address] [place] [address] XRay Report Signed Patient: Marilee Arriaga MR#: [id number] : 1975 Acct:[id number] Age/Sex: 47 / F ADM Date: 09/19/23 Loc: Room: Type: [facility] Attending Dr: Simona STOCKTON Copies to: [...] [id number] Signed By: 09/19/23 1508 Normal [facility] ECHOCARDIO M/2D COMPLETEon 0 3-20-2023 ECHOCARDIO M/2D COMPLETE Patient: MARILEE ARRIAGA Exam Date: 11/07/2022 : 1975 Gender:F Ordering : DR FRANCOISE MARTINEZ Admission #: [id number] Family : Order #: [id number] CLICK HERE TO VIEW EXAM ECHOCARDIOGRAM REPORT [...] Shay Masters M.D. on 11/07/2022 at 19:16 [facility] Coding Summary.on 05-04-2022 Coding Summary. CD:[id number] Gh0bWw+PGh lYWQ+IJ7VYYKpL42wgFQyfD4LX9pAS F8GHZHHUIOEIM7QKB9gvWR7XRkmS0O ybiAv HlgsyGHbIB67ORs8QCZ2xVmbRCbmuZ 9prWWpQ9l2LyMnVQ19rR42GTcbSJSp QrM0TtAvgixotNCd M9ipNtNnlJEuEem+PHRhYmxlIHdpZH FnJRahCZIkTvJguHbcLN9qBz9sUGYw LWNvbGxhcHNlOiBj k4baSFCmPPzdZS7quUgfA0TgdRO5HZ Ohe3v7Ln65bPL+WSTfJCX8lPdhPBjq q250BqMoa7qmNGZ0 cNHiHGqgHCA0H96bx4E0GYKfYPLmXN U7tFS4vC3wrEgfqsshP9AalXZgDzG2 LOY2cNEwoZ1itRfl hosmtE1qLqm+Z31OQP0GGPBDTE7KFu q7D5VrBbxkdTM+XR66MNEhNA28aQQm nFAkz2ggyBd9LmPy GIYlXBW1yBuuCKdfk7XhATPiI43gtP Tzo7I6GVDxwJurqRRmBoKbsYD7cW3k RKxbpdjoi2lsdpoe Sbpks2lysu71iJ44T46iCWttYCFdXG U6WDVgQWSjcZaagw0liT7bOt1+IDxj c2opf7kvdYe4MjJs XZHseqWjtMxmRLM3y5QtVd18H0TzvN qch8GlKct7zh19cAKoc5F7oSE3TNfx DNTjvU8yCDgsCjU5 GDPgSdLbqR07mJPeNWoyBr8jdUvveP mdJI9kCQPenjwtHMHgxX8wXPUsjXZc kPoiQW1dJNAdbgvc z737ZpXhGDY0DZUizJPrO5RiiU4mNe UoFDCjPXGyO6YmzXQaFNsfR570HTld CoY5QINtiqBnM1Tu XHYkuSncVbW6o8I1Qu1Pv0PdixxsZQ Q8TQczNYJ6NoA5YdMzUaW4H0ElEld6 VPCesSaxAW2kY1Xc OZJntdauncxtdSR6FYVlDRPllP89vU JtINkbMa5hw5B2n403KQVyOZRghM32 Kz4tbVmxWWIymPSY pD4ffpopk2vmhtbqRdDtSXQeTNr0XF n5YNMhlYdlHqCoLFT9ZlB5CBS8oBOy xJ8tzFmrjkmthU4i Oyc+I85utC6pFUW7LSI3qrcnPPNaxs JvOZ58QM84R3AaTksykSPbuIS+PGRp maFzpZptHD0oXaSb n4omk0VzYClpJ1OsUKXcTQgcLsh6DD YwEIV2eCJ9cP0qITOiHClcc1Q0kBR8 H3LgpzMdby6tl1oe KERlHHgiW97efKThu2J0ELCsiVK6YP OzqTnePyRkfU18Fbz+JFKerWzse0Qi Ilgqz9ekb7snbPc9 HzGxWFCacdEwgJnhDVZ8x3HhMq64C1 9eXQvgJUNxXDGnIRDePUUpuLzmqv8n pL4kZw3+PGNvbCB3 uYD7cK3gUSUtFpE5VGotA754NwYpsC YhUdeim9dtg2xidJc0NcCfJOHkzpNo bIoaJHS5q4XzJn06 R91iAZovGWGlXXQwYOUzKFPtpYubgt 0bjO3uGw0+PR6et3oncv36jS68nZO+ EQHlVHR8iEpbGEcd BOCrhK6hFHvvBhB0LTCoJuSafX93wA KoFLruRr2htObnsTtvHS5pZBDtscbr g133HcNqu5igUDVk xVZeHUjhANF3Y75bg7P4ERHsYDLmWT L7lPT8xL1reIlnetkkxZZtaYpzqvEo sLsoRVriZVnjV154 KKXywPxwHoSlgVleewPkDuBxTCk0D4 PuHnw7HPIlrIxkQD3rzMQqUCayBk2h tOncfFgyII2yOLCc sfbwa020KeJrg9ewZONnyJEkRLlxNJ U1K01zy4M5CPVpPSRiZOX8vNI7aQ9p bGlnbjogbGVmdDsg wiRqeGshLKfoRScuE361MVZmlIabYb SqloJdCHMohAN7XI58WZ66oUSjm0U5 wZF0A2PcLUVpmnnw whxxcLF3URTkFWLycF13Tv5khVidLq 0vNMUmTQC9KGDvgQAxT9KdsB8dOrXw QSOhXAXhR7NiyYTa XOvwW416LVicFwW3HPHhzcZqH1QjWG FkdVsbJbW6r2W0Vb7WE1C2QM04RV43 hNHlr2W1nYA4J7Wt FISrcxloeuryySP7CVQqDVGyqX84Ll 4noRmeUi0bFDYvLAL3LUXmmDDzI6Es lC0sOoBaVOFnHSLr X6JszAXiTDwvA542EKdcUxW2DVKdxx UjQ2RrEDVvtDvnJqW0r0N5Fb6PQVo4 XV35YE27wXTiw4A8 hNV2U3ZeFVUqkymhitfjaOQ7FTVmLL PoaR33Lq5fvWpiOk4cBGLjXCB4MHUp kMExZ7BhyX5eNyHt OOFtZNEcB6MdwCOfHEtiJ674MAnjZy C1XUWprbFaM7FqEXEhpXtvSgF8t1K8 Rk4EQTJxDX40XPP3 cDI6UV76ZY27A4SoNhlrlNXccBY+PH RhYmxlIHdpZHRoPScxMDAlJyBzdHls MX5iRg9bEEPhTABz bSwsfFAeVqFza1exJNKnVXtaFX1prY dcD4XkrJG3USZth0j4Yf90V35kV4Hw dXA+IYLkfFA7hTY8 fV6vZsQaCqE7LHhsV274VfRjjWFjXa bhw6zja2gqjCg0UbQ9CWWwsuUyfLzw NPV1i1RyUs04O23y CUbbMFKkHNZbUMHcNBAbpDxsbs9hcY 9wIi8+OJWlhLC8aMO6cY0sGtZsRoM1 HGiwJ737AtWpxHKa Jcdhu3hry3bfmDz9RqHyEJMzlkXcjD rgIBH7y7GwSe79G4XwvTved5FiAlc4 hh57kXUyw7S4cWM4 R0EdMPJruqoskXJtpJawFW9dZMAbps snXRLdpD2vFUJqO3v2MrOxOuH7NDmy C5OcsdS6SFQocFUz HJutSIQ1F10aq8G1AJMiEMXpFEJ9eY D4bO3dfJkwfosjlLBxrRongiDggYpi BZdyFXsdS668DYBb vJdeCSGqjR9xLFZokZAmkCyiOA5mJI EfmstdRaJNXUyUMXXNPB4LJKTRQaEP CB46IM60yBTgz4X5 rZN3C0XjWBSugjjzyddxgOF9VNDeXF DexT16dRKzNOqcPz5zp7R9v244ZEPo YESluX49By2ufUue RHOugAIJaS2xxermh1rxmbvjTzKrWB HpITf7GVm1KCMcyRrsAaLgGCG0TdH2 SDS1sDSwqA1gjPqp nhkjgB3mZhj+HAQoZbUeCDs0LDkayO Q+TQRsRGA6kSfxLKmoCRNesK7bVQXd B3x2JuTfTvG0COsa T3IrIJMbjbkqEg95dT8cHbPlKmL7UG vgK9YqygX0LYZuzMBgBTdpQHM4D26y q1S7IJQsLXWgUTA9 tYD5qB9oqMzpboiuiIRlxMlgzkOowQ yvARymCSqwV148VSTgpBkaBkX1TWll ILMkVG01WW36uSUc v1V9sJR9L0QbEIQpwtkhkshrgFR3IM HzHYBjxY05bQFzRLyfCz2kk5K5o606 MNHxIUZvwP95Nw6l zArjOAFvaQCDkZ2peupnu4hzlvuvSt GjHGVhOOw4XQi3GUIttUgpZfVnYYP4 VuU4NBT6kYEouR2o zVbrrukkiN9uWbi+MdRaXIenBH02QZ 78yIDyw7E6vMF2V2QsZVYkhsatlhey nXX6YHSpQEOfdZ00 uMKuAQpdUf6sg3P1w706PPQlRVPqzI 84Lf8noAdmFNNicHCBzK6bcchvd1bq cjogIzAwMDAwMDt0 YTf5UBWvxQkyXvWeLGT6SaX8BYI7bV GedA5hkKdpcdccwQ9yZli+UmVjdXJy hM0dDX41CS13Q2Fe PjwvdGFibGU+PHRhYmxlIHdpZHRoPS uxRKAqMiZllTxlUV5eQq3aDERpBZVh hPjsbXFmRqGvq8bh OSVfJAqqMG1uoLflL6GfjFE5SPVld2 l6Zz77E82gG9DvcFH+SFCmyBV0lIW7 fE1iPhMmSvO2PGft G642NfNafBYbVhvtc1ike9bazTf3Eb JwJPXvxbUpjBteCTQ5b6EuXp12E15h IHdpZHRoPSIyMCUi AAFzcZrczi8ydD3yDe5+NZHirKA3iL D0qN3bCjKePpS5FLvqA116VnEdjZHm SezsS01qB1SebRQ+ MUOiRrg5WCFmdOqdHJ0icKYtCTadBu 2fVQR8KsFbRtMpFMabS1XtGQOlyfws ylyzrMO1TSIeZEXg mF69Ag4muHtxMt1pFLDoFCX3GRYlgZ IhK3FruR0eLaZiXLLaIYGlN9ZgmQNh KNldJ576FOpsGaI2 EJZrejFpK4RyNSCcsFxyIvM8u2C2Yw 7PbBwxnMMzUT0eAnCaVTh5U7FkIbd4 XWUugBnpAD1pvMHg OLamOm9dsKlijSkiPH0zUVYcyscow5 60FvFdo5rqYVJwoJZsXZklEHG8Q52l y6K8BOBnBOVdFMT1 pYE7pB7gvPkohyzagZNtzHtzwuMetV deWTdyPMjqU733ISBzrKizGuQXMzd0 Y2GpMvi0AGByyDok WQ7ivRPoNUeyYm0ejKhrzIhxEO4jZG Qlgkznw216ZsViw3bcTMWmyPPwHZir ZZG5R42yp8X4RVHr HGZnNEO3qOF0jB1ejGffcymkcTTqdY cnajXhwSzxJZmlTNzuF333OUCbqLli Zc4RGpc5P3QjMnz5 ZUUywGyyIQ0kkSTdMTfdSq7qwUuqnD sgQC0vCDOwkqcui664KuGlf3xaWXXb rERuGZpxCAY4A42t b3D0AUQhJMDkYHZ5mSL6wV4tvDgxdf bzgAHvuIduimMosNjmRTnjODcrO817 IHRvcDsnPlBheWVy OjwvdGQ+OZ26mc87Z8FzQemwNum0FH RhJEA6qOG2nM9sNXBaHEttm7M6gWX2 X2WdbtRmfq7qx4ke YXBz (more content not included)... [facility] Consent for Treatmenton Consent for Treatment [id number]#[id number]:127 [facility] Outside Records Officeon Outside Records Office [id number]#1.00CD:127 [facility] Physician Orderon 04-14-2022 Physician Order [id number]#1.00CD:127 [facility] Coding Summary.on 11-12-2021 Coding Summary. CD:[id number]:[id number] Gh0bWw+PGh lYWQ+WF4RNEEeN87rfKBvmQ8XA5bYU J3FXDEWZFWRLE6XKP7wqQG5TUyeB4Y ybiAv DqxfwMVmRI75BBq2GQZ4rJyaSNaijP 0rcEJzS9x7TaUrTU02zL65ZGmtMTYe MhN7JeYsljbgkEHb M0vgJvNprGZfYjr+PHRhYmxlIHdpZH ZbOIsrSNVpLlPjcKxwNX8iLp8yZANm LWNvbGxhcHNlOiBj i3lnRGHcNOkcJF2qfMjpD5WsaEK3PZ Pvt8i8Fd46rRT+PVSuSYV7pMeqYGym x713AiErh4naTDL3 cBOkIFuyMPA6Z34nk0Z4FETpLZFjCK I5pTL8gE1krEysythcO5NlhDQmKrQ7 AJB7oCFhfY6zeJhg oonxjN5eEuf+K70WFD5XKYBPNB0VFw r7Z6JbCbqvnBG+EA96HUWiUY67uFGj oYXba6cxwOw6MeWf HBLuKKS0iXcsJOhlo4FaMIQcW00upH Lme5U1UFWrdRiqlDYnTuGlbYF4fW5f GIekgjxle1lsvart Nlocm9ppnl75zU29W18tFElsHGVcTZ L9HXRkXKSdlAgtvc2wvM2tPt3+IDxj m9cdf0nxtTe5VsJz OGPnszZipXjaAUA0y7PrGp16W3UzmO iat4QdNuh8jp54qOJvg8W1gKM0UZhq XMLevX4wPZjhFeZ9 ZIRjRmUfkH28lUWqPVpaMh2ipXpesV ijTX2qGMPqpulcBLSdaX4xBSTknIEv cLwjVA0gLPMzpbkj a297GnNtOHJ4OXNoaFNnT4QqsK3wRv SqOAHhHBHjO6RvsBFkJJisW070AIkj RcE5EMGmcjJoX3Ts NBQsnCtpGxC8o5D2Dp9Ao4OudgltZS R8YGxpZGNlOmC0EkPzYeI0H6OuJru7 CYNpySsxAR1lT8Vm URMmrlcmhkbtcYM4EZTsIXNbnU54sP ObKJyyYu2dn0B3n645NRZwHBRmwK05 Xa0sdRuwAISwgZYX kJ2layzwl3gcahkwLoQmLCKeAZi9DZ b8XYGqkWikWzRhCJF7DgM0FCF6bWXh dB7dyJuzwbbrhO5c Oyc+A75ljL5rDIO1VBD0zeduZLDquz HmIJ77VF85S1QlXcawbGJotTV+PGRp wwWfvOdcLA0nZtHx a0cza6OlCHorW7XeERJvVFrxZrj4AD NqPHD2nPJ3oQ9iRKVoLMswq2S7aYR2 R6HtoeSwaz9in4bh WNRzWDjjG45ndIHjs8G9EIQsbDZ4QW EhdCtaYxKdeP05Yeh+IIBxwRppz8Kb Ezjfu4syp8qheRc7 OkHnYSDhsrYvkHfcXWJ6l8KsCk33N1 6tJTbmYEDsPYYmUHTtRKUmeTgcum0l zE0uWr3+PGNvbCB3 gVC4nR9bNWGiQxG0MFygC826SzSzgK UnTjiog1wgw6mtdIt9DrMhZVCxiaUf qFmuJOS8s1SrBu73 J82gWHdjCWOfMMBqNGVmJOFahCrtoy 8wyP3yWg9+VQ5rw7fvfq71dC29wRA+ KLOeMBD0pRhbVJxv SKUowY9dNMmbFfC1AMCiTlOyeL32mC UkOSayRv9qwZdtsLkgCJ9ySTNuagrd m213IlLre5tnJMVq gYGjVWqvJUW1X89xq4T7GIMjIDCmQS P6bZK3wF3jiHxdojsieZNduQrxqxMi eUlcBYlbLDebO864 MIPmoStlIwOnyHydxvMrTvLgZDl3K1 DcUtd6GBRrgNzwML4pxTMzOOmnVz4s nRegtTjsOX3xELWm bixsr528EbGhn6vjIHSrtUPxHKjpGV J5Q61jg3G6TPHzPEDcFRM6iNA9uO0b bGlnbjogbGVmdDsg lxUkaNzzDUxcVOitP117SQXtkQtmUt QgakKnEDQudAO4VX54JP23wTSpb2X8 rVD3I4TvXRXrchkg ulrnoFE5SUJqZNGlvS82Yx5poOffQj 5fSBPnFET9BSLeuDVlQ8LshZ8tIgJz BSGjRMJgQ5MkoFCy ABumO048KWqpOeL8DEAnpkUnL8OzUM WqkVaeNfV2t1C9Bh5AG5Y5UX28QN42 vNWot7P5gKE8J4Ub POHcpcvjwjpyiXE4PTKlZMIpzJ97Te 4wiRzyGo0hUSOoFRP8RJJvgLXoJ3Gz xX0rKjJsVIAyNFEt N5UmcQSiQFduR542MReiJrR9XZHnkz EdK4VmSRNobEbsEcS2h4V3Fu5OCCf1 YH32ER25hZGyq8R2 lGI7K5IvWJSmkiyutkgtfTS9UBJjNS VndR35Uj7aeBbjLs2dRXVpXPP7DKBq cGOdX1ZusA6yJuYg HRBbJYWyE8VomXQbVYppC155GUklIj A5WHLlxnHlN9ReSQJlhQvvFlN2r2P1 Bm4PYTXoGH46LLF5 hWK1PN68CK88K2ClXymwvESphFW+PH RhYmxlIHdpZHRoPScxMDAlJyBzdHls JE3gHl7nJMIeNUCq rKoanTLyYlVcl0hyALKzECtjEQ6xcI ytU5CizVO8GRRzx7a6Uq90M61vP0Pp dXA+KABgkRL7jTA5 sU6qHaNwDmK7FMybY666QpSvbXZnIk mpt7msc7fnoKa2UdI4GHLcqlSuoSjz ZLE5e3VaZe99J91e IAtqSLSdBAOvVLGwKUTgpTlpib0txJ 9wIi8+YLXrsJT1fVI9pD8fAlYjGuQ6 EZogH743FrBocLMv Hsdnt1hto2ktzZc0WaHmXNPlwbGolX wnBVT1l3EbAh93V1VcaMmni8XiAlo6 lv11jIGvx7D0kJN2 S7ZfFIRfsqzlcWXtwKebMI3pBKZimi vhTINojM8iPQYsW7r9CmOuOyX2VQuc V8AgkbF1ALBkqNJk VOoqWFT4V97kl7F7FYTyFCYpMWV5bX K0rU9mdVcnqdpjzNKeaCbebtHimEkf GXecNCwdR007LQLf sVgkSIGzxA3bNTAeeSTqaEpyIF2jZA KlftlwWuEUZUjLUKCUIC1CKGGIDtAM IG89YT16lHBxj7L6 sEC2Y7TiRCPkyklvrvdsgHW1PLZsLM TmjV71vRFhKGhtSc0lk2C6e508JGIz CFIpoI45Nr6maPqm HAXwhGWIgX7fbzajn0xsgdrhIrVsIF KwGKw9ZPp6XTDmxOxkAyYpMIC9EvO1 ZAJ5bZAdaQ2uxAwx zbffsW9tTcq+HIBvUgAcDRp7KIzarS Q+LHYqZUJ3pWllULgnGJRokJ4bNVVr Z1x1RuZtTsQ0DKkw N6DmPKNogynsVc24iT8sFjHeWnL6GM sfK8HphmC3HOMoqFYzVXirHDV3S81x d1Q8PFVxBOKhTBA9 xEL2qZ9ycSjlzvehzHTdeMyhhcDdhS bjOSzdEAmwT779GRFwuGrkGzPyMYej VUVcDG16JQ59kPGk p5A9gYU5N2AqPNBknghzjdovxSY6WW XgRLYxdJ33zRDqBQfdSc8er8O4b491 LPPrXCRhwM83My5v kPtgYVNcaVLHoT3mjkeis4hpgesmVc NiQMBvWCu0KMl6UMFkvCxdDaUaARH1 YsR1GTC2mLOmhV7o sEdxpgfdfG8nFbq+NiGjZOlsTS36BL 08uWHgd0E9zKS4O3IgTPRuywfrntbh aCU6FZQbEMLxcO84 tEJmGMguAl1hx3U0j041BFVeGOKccX 65Yh0gwLxbLFMrsZDHzT2ymetze5sy cjogIzAwMDAwMDt0 FSd4WLJnvDctMxSnWWJ0XvN7LNJ7dU CtyY2jpYmplduhjJ4iKiq+HO7nzwwr pkX4WL38GA02L0Pm PjwvdGFibGU+PHRhYmxlIHdpZHRoPS svIDDjBbDotJgqUC6jTn5zDDVmZFZe rNxpvLEvFdLyo3rb EILsFRfkJC8kdAzdL9MozJD3QSAvt3 j0Tg42S81lA1GzfWZ+LHTzmBJ1xSH1 bF6tIpNzQaK1EQsi S955PvVshOXpCpcsi5bqy7ukiYl9Cu LdGKBrscRexNrjCIE1o9WtLg19X49r IHdpZHRoPSIyMCUi BBDbhUrral3kwH1gOn1+OOItvSD5vT L7pI8fWvKePsA2DDuyO719UmFzqDPx BzfhD82iZ0ClfWC+ TSPoTmo3PCZvpHjuVM8izYCsXExvPf 8rGLY3KtYxUuIlQIukR0AaKCZivplf emnblOE1MYYyXKQz cJ53Rq2hxJibCr2lWDWjXVD6LROykH JfW7CmrW8lOjLcPVXjSISyP1QfcQLv KZuqG367XMzkHkW9 YYYereBuK1TtLFNquKkwChO6v8O9Ll 0FeDjwoDNeSI4vZtXtFIs3O5KpLrn6 TEKrxYgwNS1qdROl YKzhQu6wePgjrYhlED5sSMUexqtzt9 29FwYjc2msXILueHQwCMjfWGZ0U07l n7M2MRUtILSdKTU1 jFU6fJ4cqGmxqhoaxFJrpUbzbvEvdE eaJYrvOAruL908OZWkxGexQuWHYvd0 C0StSfx5PSIumXjk LM2gfAObIGcgEe8qrVcnvWfmXH7xGF Wdmpneq673HsWtf6waIEUenWLwUVks PKG6D27yf5V7QAQp WIDmQBM9rYL0yC9koMifmihtyCEhaQ xfdsNaiOweZHmmKBuvA828IKKiyLtl Ju7EFpm4F7KpHbn9 ZWFdzXajVX5coLLfKRhhRk8wsTxemN zsXM8lHCFobugvd466QfEhs2ddCTQm gGVoVSdvUEI9G45r x0I6ZYSlGMLjRWX5nBI7lD4blGucbv abiEBnfPvygtAajDaaSWnoUQkjS098 IHRvcDsnPlBheWVy OjwvdGQ+BF57iv57Z9RdYkupDbz3BU PmFVI5vUK3xZ6oBUDuXOphd8C0hBC3 X6CtfaDoyg4lv6dg YXBz (more content not included)... Normal [facility] Consent for Treatmenton 10-19 Consent for Treatment [id number]#1.00CD:127 Normal [facility] Discharge Instructionson Discharge Instructions [id number]#[id number]:127 Normal [facility] ED Clinical Summaryon 2021 ED Clinical Summary [place] [id number] ED Clinical Summary Person Information Name: MARILEE ARRIAGA Felipa/[facility] Age: 45 Years : 1975 Sex: Female Language: Wolof PCP: FRANCOISE GAY Marital Status: Single Visit [...] 16:00:59 11/05/2021 16:00:59 11/05/2021 16:00:59 AD[address]ESS: [address] [facility] [id number] PHYS DOC NOTES: MEDICAL INFORMATION: Prescriptions Given: New Medications [facility] #[id number], [address] [place], [place] [id number], [phone] acetaminophen-hydrocodone (Clayhole 325 mg-5 mg oral tablet) 1 Tablets [...] Follow up: With: Address: When: Em Mir [address] [place] [address] Business (1) In 3 days 11/08/2021 Comments: Return to the emergency room if your pain gets worse or any new symptoms. With: Address: When: FRANCOISEEMILE BARNES [address] [place] [address] Business (1) In 3 days DIAGNOSIS: 1:Avulsion fracture of left ankle; 2:Sprain of left foot Normal [facility] ED Note-Physicianon 11-06-19 ED Note-Physician [...] and crutches was given. Patient was given Clayhole in the emergency room. Will discharge patient home with Clayhole and follow-up with Ortho. The OARRS report [...] for pain, 10 tab(s), Refill(s) 0, [id number], 158, cm, 11/05/21 13:26:00 EDT, Height/Length Dosing, 130, kg, 11/05/21 13:26:00 EDT, Weight Dosing 2. Sprain of left foot (S93.602A: Unspecified sprain of left foot, initial encounter) Orders: acetaminophen-hydrocodone, 1 tab(s), Tab, Oral, Once, Stop date 11/05/21 15:14:00 EDT, STAT, Start date 11/05/21 15:14:00 EDT Air Cast Crutches Post-op Shoe XR Ankle 3+ Views Left XR Foot 3+ Views Left Medications Administered Given Clayhole 5/325 Tab, 1 tab(s), Oral Disposition Plan Patient Discharge Condition Stable Discharge Disposition Discharged home Discharge Prescription List Prescriptions Clayhole 325 mg-5 mg oral tablet, 1 tab(s), Oral, q6hr, PRN Follow-up With When Contact Information Em Mir In 3 days 11/08/2021 EDT [address] [place] [address]- Business (1) Additional Instructions: Return to the emergency room if your pain gets worse or any new symptoms. FRANCOISE BARNES In 3 days [address] [place] [address]- Business (1) Additional Instructions: Patient Education Crutch [...] Tab, 100 mg= 1 tab(s), Oral, Daily Clayhole 325 mg-5 mg oral tablet, 1 tab(s), Oral, q6hr, PRN ondansetron 4 mg/5 mL oral solution Prozac 20 mg Cap, 20 mg= 1 cap(s), Oral, Daily Prozac 40 mg Cap, 40 mg= 1 cap(s), Oral, Daily Qvar with Dose Counter 80 mcg/inh inhalation aerosol ranitidine 150 mg Tab, 150 mg= 1 tab(s), Oral, BID SEROquel 100 (more content not included)... Normal [facility] Comment on above: Result Comment: Elec [...] 08/04/2001 Document Revised: 07/20/2018 Document Reviewed: 01/27/2017 [employer] Patient Education ? 2020 [employer] How to Use a Stirrup Ankle [...] the bra (more content not included)... Normal [facility] ED Patient Summaryon ED Patient Summary [place] [id number] Patient Discharge Instructions Person Information Name: MARILEE ARRIAGA Age: 45 Years Arrival Date: 11/05/2021 13:19:01 Discharge Diagnosis: 1:Avulsion fracture of left ankle; 2:Sprain of left foot Primary Care Physician: FRANCOISE GAY Provider Information Primary Provider: Tyler Petersen M.D. Advanced Firewall Administrator:None The exam and treatment you received in the Emergency Department were for an urgent problem and are not intended as complete care. It is important that you follow up with a doctor, nurse practitioner, or physician?s laboratory assistant for ongoing care. If your symptoms [...] Follow-up Instructions: With: Address: When: Em Mir [address] [place] [address] Business (1) In 3 days 11/08/2021 Comments: Return to the emergency room if your pain gets worse or any new symptoms. With: Address: When: FRANCOISE BARNES [address] [place] [address] [employer] (1) In 3 days In the event [...] opioids can be used to help relieve ubulftao-mw-vvanun pain and are often prescribed following a [...] Administration (www.fd (more content not included)... Normal [facility] XR Ankle 3+ Views Lefton [...] Barnett MD Transcribed by: KAIDEN Technologist: Normal [facility] XR Foot 3+ Views Lefton 10-19 XR Foot 3+ Views Left Exam Date/Time: 11/05/2021 13:50 EDT Reason for Exam: Fall Report Refer to concurrent left ankle radiograph dictation. FINAL REPORT Dictated: 11/05/2021 2:04 pm Rony Barnett MD Signed (Electronic Signature): 11/05/2021 2:04 pm Signed by: Rony Barnett MD Transcribed by: KAIDEN Technologist: Normal [facility] MRI BRAIN W WO CONTRASTon [...] [facility] CNDSon 02-16-2017 CNDS HNO ID: [id number] thor: Mark Anthony (Res) AdenugaService: General SurgeryAuthor Type: ResidentType: Discharge SummariesFiled: 02/16/2017 11:44 AMNote Text:The [place] [id number] or [phone]) [facility] O N F I D E N T I A L I N F O R M A T I O N -----[facility] DOCUMENTDISCHARGE SUMMARYPatient Name: Marilee Buckner Date: 02/13/2017Discharge Date: 02/16/2017Attending Physician: Dean Pfeiffercipal Diagnosis: Morbid obesitySecondary Diagnoses:Patient Active Hospital Problem List: Obesity, Class III, BMI >= 40 (morbid obesity) ([facility]) E66.01 (02/12/2017) Morbid obesity ([facility]) (02/13/2017)Operations During Hospitalization:Laparoscopic Crystal en Y [...] as needed.Future Appointments:Future AppointmentsDate Time Provider Department [place]02/23/2017 2:30 PM [id number] MORENO GENS A/M 03/09/2017 11:00 AM [id number], KASEY (PHD) GSPSMN GENS A/M BL03/16/2017 12:00 PM [id number] 2 GENBMI GENS A/M BLD04/06/2017 1:45 PM [id number] MORENO GENBMI GENS A/M BLD05/16/2017 10:30 AM [id number], LISSY A GENBMI GENS A/M BLD05/16/2017 10:30 AM [id number] GENBMI GENS A/M BLDPatient will follow-up in clinic with Renée Moreno MD as scheduledabove, or sooner if the need arises.Electronically SIGNED by Licensed Independent Practitioner: Mark Anthony Jean MD Normal [facility] Glucose POCT ([facility], [place], [place] A Use Only)on 02-16-2017 Glucose mass conc 105 mg/dL High 65-100 [facility] Comment on above: Performed By: #### G LUPOC ####[facility] [place], [place] [phone] NURSING PROGon 02-16-2017 NURSING PROG HNO ID: [id number] thor: Lilibeth Ortega (Rn) SUNSHINE Santoservice: (none)Author Type: Registered NurseType: Nursing Progress NoteFiled: 02/16/2017 11:37 AMNote Text: Nursing Progress NotePatient Name: Marilee OlivierJeraldRN: [id number] Location: [place] [address]/RW-[id number]-41 Da nena Note: Patient has been discharged [...] note was completed by: Lilibeth Santos RN [facility] NURSING PROG HNO ID: [id number] thor: Lilibeth Ortega (Rn) Danielle, RNService: (none)Author Type: Registered NurseType: Nursing Progress NoteFiled: 02/16/2017 10:27 AMNote Text: Nursing Progress NotePatient Name: Marilee OlivierJustinN: [id number] Location: [place] [address]/XX-[id number]-68 Da nena Note: Doing better this am, able to take all of pills and drink theKphos, took a shower, so taking in more po, pain controlled, no emesis, nomore bloody stool, ambulating VSS, on RA, expecting to go home today,continue to monitor.This note was completed by: Lilibeth Santos RN [facility] PROGRESSon 02-16-2017 PROGRESS HNO ID: [id number] thor: Hiram (Romain) BrunsService: General SurgeryAuthor Type: ResidentType: Progress NotesFiled: 02/16/2017 8:02 AMNote Text:General Surgery Progress NoteName: Marilee Tinsley Dillan: [id number]: 02/16/2017SUBJECTIVESubjective: No acute events overnight. Last melenotic [...] lb) LMP 01/27/2017 SpO2 94% BMI 62.73 kg/i7Ueepry/Output Summary (Last 24 hours) at 02/16/17 0759Last data filed at 02/16/17 0616 Gross per 24 hourIntake 290 mlOutput 950 mlNet -660 mlGeneral: NAD, alert, orientedLungs: nonlabored breathing on nasal canulaAbdomen: soft, nondistended, appropriately tender, incisions C/D/IExtremities: warm, well perfusedLabsCBCRecent Labs 02/15/1709608WBC 13.80* 11.75* 15.32* 15.53*HB 10.7* 10.9* 13.5 14.7HCT 32.6* 33.8* 40.2 44.1PLT 391 368 438* 479*BMPRecent Labs 4 510 608 [id number] 141 137 137 138K 4.2 4.5 4.0 4.6CHLOR 104 99 97 97*CO2 27 25 20* 24BUN 15 8 14 19CREAT 0.78 0.71 0.74 0.84GLUC 119* 115* 96 79CA 8.1* 8.8 9.9 9.4ASSESSMENT/PLAN41 year old female with morbid obesity now POD 3 s/p kiuxwttfpzeiOhxl-bp-I gastric bypass. Bloody bowel movements resolved with stable H/H.- Phase 2 bariatric diet- Heplock IV- Wean O2- PO pain meds, hold toradol- Will discuss resuming DVT prophylaxis- Encourage incentive spirometry and ambulation- Anticipate discharge today on home Richelle Gordon [facility] Surgery ResidentPager [phone] Normal [facility] Basic Metabolic Panlon 02-15 Anion gap 10 mmol/L Normal 9-18 [facility] Comment on above: Performed By: #### B VIANCA MG1, PHOS ####[place] [phone] Calcium 8.1 mg/dL Low 8.5-10.5 [facility] Comment on above: Performed By: #### B VIANCA MG1, PHOS ####[place] [phone] Chloride 104 mmol/L Normal 98-110 [facility] Comment on above: Performed By: #### B MP MG1, PHOS ####[place] [phone] CO2 27 mmol/L Normal 23-32 [facility] Comment on above: Performed By: #### B MP MG1, PHOS ####[phone] Creatinine 0.78 mg/dL Normal 0.70-1.40 [facility] Comment on above: Performed By: #### B VIANCA, MG1, PHOS ####[place] [phone] eGFR (non-black) mL/min/{1.73_m2} Normal >60 [facility] Comment on above: Performed By: #### B VIANCA, MG1, PHOS ####[place] [phone] Glucose mass conc 119 mg/dL High 65-100 [facility] Comment on above: Performed By: #### B VIANCA MG1, PHOS ####[place] [phone] Potassium molar conc 4.2 mmol/L Normal 3.5-5.0 [facility] Comment on above: Performed By: #### B VIANCA, MG1, PHOS ####[place] [address] Sodium 141 mmol/L Normal 132-148 [facility] Comment on above: Performed By: #### B VIANCA MG1, PHOS ####[address] Urea nitrogen 15 mg/dL Normal 8-25 [facility] Comment on above: Performed By: #### B VIANCA, MG1, PHOS ####[address] CBCon 02-15-2017 Erythrocyte distribution width Auto Ratio (RBC) 12.9 % Normal 11.5-15.0 [facility] Comment on above: Performed By: #### C BC ####[place] [address] Erythrocytes (RBC) 3.63 10*6/uL Low 3.90-5.20 [facility] Comment on above: Performed By: #### C BC ####[place] [phone] Hematocrit (HCT) 33.8 % Low 36.0-46.0 [facility] Comment on above: Performed By: #### C BC ####[place] [phone] Hemoglobin mass conc (Bld) 10.9 g/dL Low 11.5-15.5 [facility] Comment on above: Performed By: #### C BC ####[place] [phone] MCH 30.0 pG Normal 26.0-34.0 [facility] Comment on above: Performed By: #### C BC ####[place] [phone] MCHC mass conc (RBC) 32.2 g/dL Normal 30.5-36.0 [facility] Comment on above: Performed By: #### C BC ####[phone] MCV 93.1 fL Normal 80.0-100.0 [facility] Comment on above: Performed By: #### C BC ####[place] [phone] Platelet mean volume (PMV) 8.5 fL Low 9.0-12.7 [facility] Comment on above: Performed By: #### C BC ####[place] [phone] Platelets 368 10*3/uL Normal 150-400 [facility] Comment on above: Performed By: #### C BC ####[place] [phone] WBC (Leukocytes) 11.75 10*3/uL High 3.70-11.00 [facility] Comment on above: Performed By: #### C BC ####[place] [phone] CBC and Differentialon 02-15 Abs Baso 0.02 k/uL Normal 0.00-0.10 [facility] Comment on above: Performed By: #### C BCDIF ####[place] [address] Abs Callahan 0.97 k/uL High 0.00-0.86 [facility] Comment on above: Performed By: #### C BCDIF ####[place] [phone] Abs Neut 8.11 k/uL High 1.45-7.50 [facility] Comment on above: Performed By: #### C BCDIF ####[place] [address] Basophils/100 WBC Auto (Bld) 0.1 % Normal [facility] Comment on above: Performed By: #### C BCDIF ####[place] [address] DTYPE Auto Diff Normal [facility] Comment on above: Performed By: #### C BCDIF ####[place] [address] Eosinophils 0.35 10*3/uL Normal 0.00-0.45 [facility] Comment on above: Performed By: #### C BCDIF ####[place] [phone] Eosinophils/100 leukocytes 2.5 % Normal [facility] Comment on above: Performed By: #### C BCDIF ####[place] [address] Erythrocyte distribution width Auto Ratio (RBC) 13.1 % Normal 11.5-15.0 [facility] Comment on above: Performed By: #### C BCDIF ####[place] [phone] Erythrocytes (RBC) 3.51 10*6/uL Low 3.90-5.20 [facility] Comment on above: Performed By: #### C BCDIF ####[place] [phone] Hematocrit (HCT) 32.6 % Low 36.0-46.0 [facility] Comment on above: Performed By: #### C BCDIF ####[place] [phone] Hemoglobin mass conc (Bld) 10.7 g/dL Low 11.5-15.5 [facility] Comment on above: Performed By: #### C BCDIF ####[place] [phone] Lymphocytes 4.35 10*3/uL High 1.00-4.00 [facility] Comment on above: Performed By: #### C BCDIF ####[place] [phone] Lymphocytes/100 leukocytes 31.5 % Normal [facility] Comment on above: Performed By: #### C BCDIF ####[place] [phone] MCH 30.5 pG Normal 26.0-34.0 [facility] Comment on above: Performed By: #### C BCDIF ####[place] [phone] MCHC mass conc (RBC) 32.8 g/dL Normal 30.5-36.0 [facility] Comment on above: Performed By: #### C BCDIF ####[place] [phone] MCV 92.9 fL Normal 80.0-100.0 [facility] Comment on above: Performed By: #### C BCDIF ####[place] [phone] Monocytes/100 leukocytes 7.0 % Normal [facility] Comment on above: Performed By: #### C BCDIF ####[place] [phone] Neutrophils/100 WBC Auto (Bld) 58.9 % Normal [facility] Comment on above: Performed By: #### C BCDIF ####[place] [phone] Platelet mean volume (PMV) 8.3 fL Low 9.0-12.7 [facility] Comment on above: Performed By: #### C BCDIF ####[place] [address] Platelets 391 10*3/uL Normal 150-400 [facility] Comment on above: Performed By: #### C BCDIF ####[place] [phone] WBC (Leukocytes) 13.80 10*3/uL High 3.70-11.00 [facility] Comment on above: Performed By: #### C BCDIF ####[place] [phone] Glucose POCT ([facility] [place], [place] A Use Only)on 02-15-2017 Glucose mass conc 111 mg/dL High 65-100 [facility] Comment on above: Performed By: #### G LUPOC ####[place] [address] Glucose mass conc 121 mg/dL High 65-100 [facility] Comment on above: Performed By: #### G LUPOC ####[place] [address] Glucose mass conc 99 mg/dL Normal 65-100 [facility] Comment on above: Performed By: #### G LUPOC ####[place] [address] Glucose mass conc 116 mg/dL High 65-100 [facility] Comment on above: Performed By: #### G LUPOC ####[place] [phone] Magnesiumon 02-15-2017 Magnesium 2.0 mg/dL Normal 1.7-2.6 [facility] Comment on above: Performed By: #### B MP, MG1, PHOS ####[address] NURSING PROGon 02-15-2017 NURSING PROG HNO ID: [id number] thor: Lilibeth GarciaRn) Doroteo Santos: (none)Author Type: Registered NurseType: Nursing Progress NoteFiled: 02/15/2017 4:15 PMNote Text: Nursing Progress NotePatient Name: Marilee PruittN: [id number] Location: [place] [address]/[id number] Da nena Note: Dr called to inform that patient had another bloody stool itwas dark red, no change in vital signs HR has remained in 70's, on RA, noincrease in pain, patient is only taking sips of clears otherwiseunchanged , stable, lab orders again @ 1800.This note was completed by: Lilibeth Santos RN [facility] N[facility]SING [facility] HNO [place]: [id number] thor: Lilibeth Ortega (Rn) Doroteo Santos: (none)Author Type: Registered NurseType: Nursing Progress NoteFiled: 02/15/2017 10:29 AMNote Text: Nursing Progress NotePatient Name: Marilee PruittN: [id number] Location: [place] [address]/[id number] Da nena Note:Patient states she's feeling ok, just brought up some 'phlegm',( clearbubbles) no emesis, able to keep down 'bites' or sips of broth and tea,given IV phenergan, denies pain, encouraged to continue to ambulate,stable, call light in reach.This note was completed by: Lilibeth Santos RN [facility] NURSING [facility] HNO ID: [id number] thor: Liliana Echeverria) Rolo, RNService: (none)Author Type: Registered NurseType: Nursing Progress NoteFiled: 02/15/2017 5:53 AMNote Text: Nursing Progress NotePatient Name: Marilee SmithRN: [id number] Location: [place] [address]/[id number] Surgery paged [phone] Marilee Arriaga: patient had dark bloody BM. pleaseadvise. Liliana Eller [phone] No new ordersThis note was completed by: Liliana Seth, RN [facility] PROGRESSon 02-15-2017 PROGRESS HNO ID: [id number] thor: Mark Anthony (Res) TedService: General SurgeryAuthor Type: ResidentType: Progress NotesFiled: 02/15/2017 8:25 AMNote Text:General SurgeryProgress notesAdmitted: 02/13/2017OR date: 02/13/2017 Procedure(s) and Anesthesia Type: * LAPAROSCOPIC GASTRIC RESTRICTIVE SURG W/ BYPASS AND CRYSTAL-EN-Y = 42 (morbid obesity) (HCC) E66.01 (02/12/2017) Morbid obesity ([facility]) (02/13/2017)Hold Lovenox/Toradol, recheck labs, decrease IVFPain control: [...] RNF, potential discharge tomorrowPaul MD Ted (PGY 2)[id number] 6PM weekdays and all through weekends: [id number] SNausea and emesis yesterday, improving and PO intake improvingSlept okayDark bloody BMs this AMAmbulating well OTemp (24hrs), Av.7 ?C (98 ?F), Min:36.4 ?C (97.6 ?F), Max:36.9 ?C(98.4 ?F)BP 147/78 Pulse 80 Temp 36.4 ?C (97.6 ?F) (Oral) Resp 16 Ht 154.9cm (5' 1 ) Wt (!) 150.6 kg (332 lb) LMP 01/27/2017 SpO2 99% BMI62.73 kg/x7NBEQUJO: Mild distress as actively nauseated and sitting up with vomitbag, alert and oriented x 3HEENT: NC/AT, EOM's intactRESPIRATORY: Respiratory effort unlaboredCHEST-CVS: HDSABDOMEN: Soft, obese and non distended, non tender, laparoscopic incisionsCDI with glueNEURO: Grossly non-focal02/14 0700 - 02/15 0659In: 3622 [PO:300; IV:3322]Out: 2180 [Urine:1850] Normal [facility] PROGRESS HNO ID: [id number] thor: Renée MorenoSerankitae: General SurgeryAuthor Type: PhysicianType: [...] PO intake improvesStacy Gale Moreno MD Normal [facility] Phosphoruson 02-15-2017 Phosphate 1.9 mg/dL Low 2.5-4.5 [facility] Comment on above: Performed By: #### B MP, MG1, PHOS ####[facility] [place], [place] [phone] Vital Signs Date Time Vital Sign Value Performing Clinician Faci lity 09-19-2023 09:41-0500 Body height 157.48 cm [facility] 09-19-2023 09:41-0500 Body weight 104.32 kg [facility] Encounters Encounter Date Encounter Type Care Provider Facility Start: 04-23-2024 ambulatory Jamey Minor acility:[facility] Start: 02-12-2024 End: 02-12-2024 ambulatory Najma Richardson MD Facility: [facility] Start: 01-31-2024 End: 01-31-2024 ambulatory FRANCOISE BARNES Not Available Start: 01-23-2024 End: 01-23-2024 ambulatory FRANCOISE BARNES Not Available Start: 01-04-2024 ambulatory [facility] Start: 12-29-2023 ambulatory [facility] Start: 2023 End: 2023 ambulatory [...] Start: 09-19-2023 End: 09-19-2023 Patient encounter procedure [facility] [place] Work Phone: Start: 09-19-2023 End: 09-19-2023 ambulatory NON STAFF [facility] Work Phone: Start: 08-05-2023 End: 08-05-2023 ambulatory FRANCOISE BARNES Not Available Start: 07-26-2023 End: 07-26-2023 ambulatory FRANCOISE BARNES Not Available Start: 07-17-2023 Registered [facility] Start: 06-05-2023 End: 06-05-2023 ambulatory [facility] Start: 05-01-2023 End: 05-01-2023 ambulatory Najma Richardson MD Facility:[facility] Start: 04-03-2023 End: 04-03-2023 ambulatory [facility] Start: 02-27-2023 End: 02-27-2023 ambulatory Najma Richardson MD Facility:[facility] Start: 11-07-2022 End: 11-08-[address] FRANCOISE BARNES Facility: Start: 06-27-2022 End: 06-27-2022 ambulatory SUNSHINE Keller Facility: Start: 04-27-2022 End: 10-26-2022 ambulatory FRANCOISE BARNES [place] Start: 04-22-[address] FRANCOISE BARNES Facil ity:H1 Start: 11-05-2021 End: 11-05-2021 Emergency department patient visit Tyler Petersen [place] Start: 09-18-2018 Patient encounter procedure Ida Weber Facility:[id number] Start: 05-08-2018 Patient encounter procedure Ida Weber Facility:[id number] Start: 02-13-2018 End: 02-16-2018 Ambulatory FRANCOISE BARNES [facility] Start: 12-19-2017 Patient encounter procedure Ida [...] 02-18-2024 Influenza vaccination Influenza Vacc ine (#1) [facility] Comment on above: Postponed from 04/21 (Patient Refused) Start: 02-11-2024 Screening for malign ant neoplasm of breast Mammogram [facility] Start: 10-25-2023 End: 10-25-2023 Patient encounter procedure 10/25/2023 1:00 PM EST Office Visit [facility] [address] [facility] [address] [place] [phone] Francoise Barnes PA [address] [facility] [address] [place] [address] [facility] Start: 12-14-2007 Screening for malign ant neoplasm of cervix [facility] Start: 1998 Screening for malign ant neoplasm of cervix Pap Smear [facility] Start: 1977 Screening for malign ant neoplasm of colon [facility] Immunizations Immunization Date Immunization Notes Care Provider Fa cili 05-30-2021 influenza, injectabl e, quadrivalent, preservative free Francoise MARTINEZ Work Phone: [facility] 05-30-2021 influenza virus vacc ine, unspecified formulation Francoise MARTINEZ Work Phone: [facility] 06-12-2020 influenza, injectabl e, quadrivalent, preservative free Francoise MARTINEZ Work Phone: [facility] 12-16-2018 tetanus toxoid, redu brina diphtheria toxoid, and acellular pertussis vaccine, adsorbed Francoise MARTINEZ Work Phone: [facility] Payers Date Payer Category Payer Self-pay [id number] 2022 Medicaid [facility] BCBS MEDICA[place] [id number] 2022-Present [address] [place] [address] [id number] 2022 Medicaid [id number] 2022 Unknown 2018 Unknown [id number] 2018 Unknown [id number] 1977 Unknown [id number] 2.16840.1.481476.3.579.2.356 1977 Unknown [id number] 2.840.1.402327.3.579.2.356 1977 Unknown [id number] 2.840.1.207062.3.579.2.356 1977 Unknown [id number] 2.16840.1.045278.3.579.2.727 1977 Unknown [id number] 2.16840.1.700000.3.579.2.727 1977 Unknown [id number] 2.840.1.612383.3.579.2.593 1977 Unknown [id number] .840.1.905006.3.579.2.593 1977 Unknown [id number] 2.16840.1.818436.3.579.2.593 1977 Unknown [id number] 2.16840.1.202578.3.579.2.1286 1977 Unknown [id number] 2.16840.1.739366.3.579.2.1286 1977 Unknown [id number] 2.16840.1.029438.3.579.2.1286 1977 Unknown [id number] 2.16.840.1.199361.3.579.2.1285 1977 Unknown [id number] 2.840.1.720225.3.579.2.1285 1977 Unknown [id number] 2.840.1.738770.3.579.2.1285 1977 Unknown [id number] 2.840.1.327241.3.579.2.1285 1977 Unknown [id number] 2.840.1.281111.3.579.2.1258 1977 Unknown [id number] 2.840.1.894684.3.579.2.1258 1977 Unknown [id number] 2.840.1.568704.3.579.2.1258 1977 Unknown [id number] 2.0.1.082787.3.579.2.1258 1977 Unknown [id number] 2.840.1.715106.3.579.2.1258 1977 Unknown [id number] 2.840.1.782773.3.579.2.1258 1977 Unknown [id number] 2.840.1.060403.3.579.2.1258 1977 Unknown [id number] 10.06.830.1.652772.3.579.2. 1977 Unknown [id number] 2.840.1.895691.3.579.2. 1977 Unknown [id number] 2.840.1.405661.3.579.2. 1977 Unknown [id number] 2.840.1.633963.3.579.2. 1977 Unknown [id number] 2.840.1.622280.3.579.2. 1977 Unknown [id number] 2.840.1.724199.3.579.2.196 1977 Unknown [id number] 2.16.840.1.555937.3.579.2.196 1959 Unknown [id number] Unknown [id number] 2.16.840.1.482386.3.579.2.531 Unknown [id number] 2.16.840.1.696824.3.579.2.531 Social History Date Type Detail Facility Tobacco smoking stat us FLIS Unknown if ever smoked [facility] Work Phone: Start: 1975 Sex Assigned At Female F [facility] Start: 09-18-2018 End: 01-23-2023 Tobacco smoking status NHIS Never smoked tobacco (finding) [facility] Start: 01-23-2023 Tobacco use and exposure Smokeless tobacco non-user [facility] Start: 07-26-2023 Alcohol intake Ex-drinker (finding) [facility] Start: 01-24-2023 End: 07-26-2023 History of Social function [facility] Start: 01-24-2023 End: 07-26-2023 Tobacco use panel [facility] Start: 04-26-2023 Alcohol Comment Caffeine intake: [...] authenticated by: EM LÓPEZ Date: 2022-06-27 15:38 [facility] Progress note 06-28-2021 Note Date & Type Note Facility 06-28-2021 Note HNO ID: [id number] Author: Em Fernandez, PhD Service: ? Author Type: Psychologist Type: Progress Notes Filed: 06/28/2021 2:45 PM Note Text: Received mental health records from [facility]. Note from 05/06/21 revealed pt [...] medical records for scanning. Em Fernandez, psychologist [facility] Evaluation note Note Date & Type Note Facility Evaluation note No assessment information availa [facility] Work Phone: Evaluation note Note Date & Type Note Facility Evaluation note Diagnosis Chronic pain of both knees documented in this encounter [facility] Healthcare Summary Purpose Family History No Family [...] section and content) DATE CREATED AUTHOR 02/14/2018 [facility] DATE CREATED AUTHOR AUTHOR'S ORGANIZ ATION 02/16/2018 [facility] DATE CREATED AUTHOR AUTHOR'S ORGANIZ ATION 10/09/2018 [facility] DATE CREATED AUTHOR AUTHOR'S ORGANIZ ATION 10/11/2021 [facility] DATE CREATED AUTHOR AUTHOR'S ORGANIZ ATION 10/28/2022 [facility] DATE CREATED AUTHOR AUTHOR'S ORGANIZ ATION 11/13/2022 [facility] DATE CREATED AUTHOR AUTHOR'S ORGANIZ ATION 01/09/2024 [facility] DATE CREATED AUTHOR AUTHOR'S ORGANIZ ATION 02/01/2024 [facility] DATE CREATED AUTHOR AUTHOR'S ORGANIZ ATION 02/14/2024 [facility] DATE CREATED AUTHOR AUTHOR'S ORGANIZ ATION 04/24/2024 [facility] Goals (unrecognized section and content) [...] September 19, 2023 End: September 19, 2023 Appeals Board Referee Relationship Specialty Start Date End Date Shalini Coffey MD [address] [facility] [address] [place] [address] PCP - General Family Medicine 08/05/23 Reason [...] BE BASED ON THE PRIMARY CLINICAL RECORDS. [facility]. provides no warranty or guarantee of the accuracy or completeness of information in this document.
[2024-05-06 11:13] VITALS: BP 156/73; PULSE 80; O2SAT 96
[2024-05-06 11:14] VITALS: BP 150/70; PULSE 80; O2SAT 96
--- NOTE | 2024-05-06 11:15 | P.ON_ITS ---
Date of procedure: 05/06/24 Pre-op diagnosis: Pain due to lumbar stenosis with neurogenic claudication Post-op diagnosis: same as pre-op Procedure: Procedure: Left L4-5, L5-S1 transforaminal epidural steroid injection Medications: Bupivacaine 0.25% 2cc, lidocaine 2% 1cc, kenalog 80mg The patient was seen and examined in the preoperative holding area.? Informed consent was obtained and placed on the chart.? Patient was brought to the medical procedure unit and placed in the prone position where a timeout was completed verifying the correct patient, procedure site, position, and planned special equipment using sterile aseptic technique.? Under direct fluoroscopic visualization a 25-gauge Quincke tipped spinal needle was advanced to the designated neural foramen where contrast dye was injected to show adequate spread.? The needle was inserted at level left L4-5. There was no evidence of vascular or adverse uptake.? Epidural spread was appreciated.? The above- mentioned injectate was then placed in a 1.5 mL aliquot preceded by negative aspiration.? The needle was removed. The needle was inserted and the procedure repeated at level left L5-S1.? The surgery site was covered.? Patient was taken to the postprocedural recovery area and monitored for an appropriate length of time before found suitable for discharge in the accompaniment of a responsible adult. Anesthesia: Local Surgeon: Najma Richardson Pathology: none sent Condition: stable Disposition: no change
[2024-05-06] MEDS: LIDOCAINE HCL 2% 400 MG/20 ML MDV 3 ML INJ (11:17)
[2024-05-06] MEDS: 0.9 % SODIUM CHLORIDE 10 ML SYRINGE - SALINE FLUSH INJ (11:17)
[2024-05-06] MEDS: IOHEXOL 240 MG/ML - 10 ML VIAL 12 MG INJ (11:17)
[2024-05-06] MEDS: BUPIVACAINE HCL 0.25% PF 25 MG/10 ML VIAL INJ (11:17)
[2024-05-06] MEDS: TRIAMCINOLONE ACETONIDE 40 MG/ML VIAL 80 MG INJ (11:18)
== END 2024-05-06 11:22 | disposition home or self-care (01) ==
LOC: SURGOUT 10:04
PROVIDERS: PCP Physician Assistant; Visit Provider Anesthesiology
DX: M48.062 Spinal stenosis, lumbar region with neurogenic claudication (principal)
CPT/HCPCS: 64483; 64484; J0665; J3301; Q9966

== ENCOUNTER 2024-05-15 14:41 | Outpatient (OUT) | payer MEDICAID, SELFPAY ==
--- NOTE | 2024-05-15 15:02 | P.CN_ITS ---
Consult Note: HPI Data of Consult Patient: known to practice within the last 3 years Requesting Physician: Simona Szymanski NP Primary Care Provider: SHWETA BARNES Consult Narrative Reason for consult: chronic back pain Narrative: Marilee Uribe is a pleasant 47 year old female who follows for chronic low back pain and left leg pain. Pain today 5-6 throbbing in bilateral low back/hips. continues medications through PCP with mild benefit. continues HEP as tolerated, previously failed greater than 6 weeks of PT/HEP. Recent repeat bilateral L3/4 L4/5 RFA providing 60% improvement in axial low back pain. recent left L4/5 L5/S1 TFESI providing >70% improvement in radicular/NC symptoms ongoing. continues to have moderate to severe pain with standing, walking, sitting too long, activity, ADLs, sleeping. cc:: CC: Simona Szymanski NP Review of Systems ROS Status of ROS 10 or more systems reviewed and unremark able except as noted in history and below Musculoskeletal Reports: back pain and joint pain PFSH PFSH Medical History Surgical History S/P endometrial ablation ?Z98.890 - Other specified postprocedural states (ICD-10) S/P right knee arthroscopy ?Z98.890 - Other specified postprocedural states (ICD-10) H/O gastric bypass ?Z98.84 - Bariatric surgery status (ICD-10) S/P tonsillectomy ?Z90.89 - Acquired absence of other organs (ICD-10) Social History Smoking status: Never smoker Meds Home Medications and Allergies Home Medications ?Medication ?Instructions ?Recorded ?Confirmed ?Type acetaminophen 650 mg 650 mg PO Q12H PRN pain 02/13/23 05/06/24 History tablet,extended release (Tylenol Arthritis Pain) aripiprazole 400 mg suspension, 400 mg IM Q28D 02/13/23 05/06/24 History extended rel.intramuscular syringe ([address]) buspirone 30 mg tablet 30 mg PO BID 02/13/23 05/06/24 History lumateperone 10.5 mg capsule 10.5 mg PO DAILY 02/13/23 05/06/24 History (Caplyta) tramadol 50 mg tablet 50 mg PO BID PRN pain 02/13/23 05/06/24 History trazodone 300 mg tablet 300 mg PO DAILY PRN sleep 02/13/23 05/06/24 History venlafaxine 100 mg tablet 300 mg PO DAILY 02/13/23 05/06/24 History zolpidem 5 mg tablet (Ambien) 5 mg PO BEDTIME PRN sleep 02/13/23 05/06/24 History tizanidine 4 mg tablet 4 mg PO BEDTIME 04/18/23 05/06/24 History acarbose 25 mg tablet 25 mg PO DAILY 08/01/23 05/06/24 History cholecalciferol (vitamin D3) 250 10,000 unit PO DAILY 08/01/23 05/06/24 History mcg (10,000 unit) capsule hydroxyzine pamoate 25 mg capsule 25 mg PO DAILY 08/01/23 05/06/24 History lamotrigine 150 mg tablet 300 mg PO DAILY 12/03/23 05/06/24 History ondansetron HCl 4 mg tablet 4 mg PO Q6H PRN nausea and vomiting 12/08/23 05/06/24 History metoprolol succinate 25 mg 25 mg PO DAILY 04/04/24 05/06/24 History tablet,extended release 24 hr Allergies Allergy/AdvReac Type Severity Reaction Status Date / Time erythromycin base Allergy Unknown Unknown Verified 05/06/24 10:36 [From E-Mycin] Penicillins Allergy Unknown Unknown Verified 05/06/24 10:36 shellfish derived Allergy Unknown Unknown Verified 05/06/24 10:36 Sulfa (Sulfonamide Allergy Unknown Unknown Verified 05/06/24 10:36 Antibiotics) codeine Allergy Unknown Verified 05/06/24 10:36 Exam Constitutional Documenting provider has reviewed patient's vital signs: yes Common normals: no apparent distress, oriented x3, healthy appearing, alert and well nourished General appearance: cooperative Nutritional appearance: obese HENMT Common normals: normocephalic, hearing grossly normal bilaterally and moist oral mucous membranes Head and scalp: normocephalic Eye Common normals: PERRL Pupil: PERRL Neck & C-Spine Common normals: full ROM General: normal visual inspection Chest Common normals: inspection of chest normal Respiratory Common normals: normal respiratory effort, no retractions and no use of accessory muscles Back & Pelvis Common normals: thoracic and lumbar spine normal to inspection Lumbar spine/lower back: ROM limited, pain with ROM, lumbar spinal tenderness, paraspinal muscle tenderness and straight leg raise positive left; no paraspinal muscle spasm Sacroiliac joints: SI joint(s) abnormal Other: tenderness over bilateral PSIS, modified positive left fabir/fadir thigh thrust and gaenslen decreased sensation to left L4,5,S1 pattern strength 4/5 in LLE 5/5 in RLE negative facet loading Extremity Common normals: normal to inspection and full ROM Right lower extremity: knee joint Other: edema, enlarged diameter, pain with medial and lateral stress testing Neuro Common normals: oriented x3, CN's II-XII intact bilaterally, moves all extremities, no focal motor deficits, no sensory deficits noted and deep tendon reflexes 2+ bilaterally Sensorium/orientation: alert Motor exam: strength 5/5 throughout and no movement abnormalities noted Psych Common normals: mental status grossly normal, thought process normal, cooperative, affect normal, speech normal and activity/motor behavior normal Speech: normal speech Thought process: normal thought process Results Additional Findings Additional findings: If on a controlled substance or opioids, I have checked an [place] report on this patient and there are no aberrancies noted in the prescribing history.??If on a controlled substance or opioid a drug screen was completed and reviewed within the last year, and if there has not been a drug screen completed we ordered one today to monitor higher risk, state monitored pain medication use. As part of providing excellent, safe, comprehensive care, the following was completed at our patient's visit: 1. A medication reconciliation and review to ensure accurate knowledge of current/active medications, including asking our patients to inform us about any [id number] medications or herbal remedies/nutritional supplements/alternative remedies. 2. A review to specifically ensure our patients have had annual screening for screening for depression, screening for tobacco use, and screening for unhealthy alcohol use. For concerning screenings had a discussion with the patient, provided patient education, and recommended follow-up with primary care provider when appropriate. If patient noted with a risk of falling, they received education on strength, gait, and balance training to prevent future risk of falling. Assessment and Plan Assessment and Plan (1) Sacroiliitis: (2) Lumbar stenosis with neurogenic claudication: (3) Lumbar radiculopathy: (4) Lumbar spondylosis: (5) Muscle spasm: (6) Lumbar degenerative disc disease: Plan bilateral SIJ injection under fluoroscopy, risks vs benefits reviewed zynex TENS discussed and ordered for chronic low back pain with myofascial pain secondary to lumbar DDD, lumbar spondylosis, lumbar facet arthropathy continue current medications f/u after injection
--- OUTSIDE RECORDS SUMMARY | 2024-05-15 15:05 | XMS_ITS | CCD ---
Author Organization [facility] CliniSyak Care Team Providers Care Micro Photographer Name Role Phone FRANCOISE BARNES Unavailable Unavailable ESPERANZA, DANUTA F Unavailable Unavailable Gus, Ida Evans Attending Unavailable Gus, Ida Evans Attending Unavailable Gus, Ida Evans Attending Unavailable HEMMERFRANCOISE Referring Unavailable HEMMER, FRANCOISE Admitting Unavailable HEMMER, FRANCOISE Primary Care Unavailable HEMMER, FRANCOISE Attending Unavailable HajdTyler mendez Attending Unavailable HEMKAM, FRANCOISE Primary Care Unavailable TRENT ., SUNSHINE Admitting Unavailable TRENT ., SUNSHINE Attending Unavailable MISC, DR SLOAN Primary Care Unavailable FOLSOM, DR EM Snyder Consulting Unavailable TRENT ., [...] DANUTA F Primary Care Unavailable Simona Szymanski Admitting Unavailable Simona Szymanski Attending Unavailable NON STAFF Primary Care Unavailable Jamey Morgan Admitting Unavailab le Jamey Morgan Attending Unavailab le NON STAFF Primary Care Unavailable FRANCOISE BARNES Attending Unavailable HEMMERFRANCOISE Attending Unavailable OSMELGERMAINE Attending Unavailable HEMMERFRANCOISE Attending Unavailable HEMFRANCOISE HUMPHREY Attending Unavailable HEMFRANCOISE HUMPHREY Attending Unavailable HEMFRANCOISE HUMPHREY Attending Unavailable HEMMERFRANCOISE Attending Unavailable Giedraitis , Andrius Vytautas Attending Unavailable Giedraitis MD, Andrius Vytautas Attending Unavailable Giedraitis MD, Andrius Vytautas Attending Unavailable Giedraitis MD, Andrius Vytautas Attending Unavailable Giedraitis , Andrius Vytautas Attending Unavailable Allergies Allergy Classification Reported Allergen(s) Allergy Type Date of Onset Reaction(s) Facility (1 source) Cephalexin; Translations: [Keflex] Drug Allergy [facility] Repository (6 sources) Clindamycin; Translations: [clindamycin] Drug Allergy 5 [facility] Repository (7 sources) Codeine; Translations: [codeine] Drug Allergy 5 [facility] Repository (1 source) NSAIDs; Translations: [NSAIDs] Propensity to adverse reactions (disorder) [facility] Repository (5 sources) Penicillins; Translations: [penicillins] Propensity to adverse reactions (disorder) 5 [facility] Repository (1 source) Sulfonamides (Antibiotic); Translations: [sulfa drugs] Propensity to adverse reactions (disorder) [facility] Repository (1 source) alot of ATB's, I dont know names; Translations: [alot of ATB's, I dont know names] Propensity to adverse reactions (disorder) [facility] Repository (1 source) Penicillin Drug Allergy [facility] Repository (1 source) Sulfonamides (Antibiotic) Drug allergy (disorder) [facility] Repository (4 sources) Sulfonamides (Antibiotic); Translations: [SULFA (SULFONAMIDE ANTIBIOTICS)] Allergy to substance 5 [facility] (4 sources) erythromycin base; Translations: [ERYTHROMYCIN BASE] Allergy to substance 7 Rash [facility] (2 sources) Bacitracin / Polymyxin B; Translations: [BACITRACIN-POLYM YXIN B] Drug Allergy [facility] Work Phone: (2 sources) Ciprofloxacin; Translations: [CIPROFLOXACIN] Drug Allergy 5 Rash [facility] (2 sources) Erythromycin; Translations: [ERYTHROMYCIN] Drug [facility] ([facility] source) Penicillin G Drug Allergy [facility] (1 source) Sulfonamides (Antibiotic) Drug Allergy 5 [facility] (2 sources) Soap; Translations: [SOAP] Allergy to substance 7 Swelling [facility] (1 source) Grass pollen; Translations: [GRASS POLLEN] [...] evening. Take with meals. 0 04/25/2023 Active [id number] 200 actuat albuterol 0.09 mg/actuat metered dose [...] once daily cholecalciferol (Vitamin D-3) 250 MCG (68497 UT) capsule Indications: Vitamin D deficiency Take 1 capsule (250 mcg) by mouth 1 (one) time each day at the same time. 90 capsule 3 02/06/2023 Active Continuous Blood Gluc [employer] (FreeStyle [place]) device (1 source) Start: 02-23-2023 Continuous Blood Gluc [employer] (FreeStyle [place]) device USE DIRECTED 0 02/23/2023 Active Continuous [...] Start: 08-15-2017 take 2 tablets by mo [facility] once daily Multivit With Min-Folic Acid [...] (1 source) Polyene Antifungal nystatin (Mycostatin ) 611186 UNIT/GM powder Apply 1 application topically in [...] wo conon MR lumbar spine wo con [facility] Main [place] [address] [place] [address] MRI Report Signed Patient: Marilee Arriaga MR#: [id number] : 1975 Acct:[id number] Age/Sex: 47 / F ADM Date: 09/19/23 Loc: MR Room: Type: [facility] Attending Dr: Simona STOCKTON Copies to: [...] 09/19/23 1412 Signed By: 09/19/23 1427 Normal [facility] Physician [facility] XR pre/post mri xrayon 09-19 XR pre/post mri xray [facility] [place] [address] XRay Report Signed Patient: Marilee Arriaga MR#: [id number] : 1975 Acct:[id number] Age/Sex: 47 / F ADM Date: 09/19/23 Loc: Room: Type: [facility] Attending Dr: Simona STOCKTON Copies to: [...] 1507 Signed By: 09/19/23 1508 Normal [facility] ECHOCARDIO M/2D COMPLETEon 0 11-07-2022 ECHOCARDIO M/2D COMPLETE Patient: MARILEE ARRIAGA Exam Date: 11/07/2022 : 1975 Gender:F Ordering : DR FRANCOISE MARTINEZ Admission #: [id number] Family : Order #: [id number] CLICK HERE TO VIEW EXAM ECHOCARDIOGRAM REPORT [...] Shay Masters M.D. on 11/07/2022 at 19:16 Normal [facility] Coding Summary.on 05-04-2022 Coding Summary. CD:[id number] Gh0bWw+PGh lYWQ+MP6SREDhK69sdRNmrU5DA3tTU F1OPKTEDFVRSP8GIZ1pcQU8GXbwI3F ybiAv NezljNHxWG54CUv9BNE2vFvuKMlbnG 6pwBBaW8u9YmKhSG57zH08XFlaQMVs RbH9AhHommanwGHs R1fkOrAbqOReYvc+PHRhYmxlIHdpZH CuWWuaTZTpIvSxqZsuOW3zPm2xJUAa LWNvbGxhcHNlOiBj q9adLVIlZNjnDS1dsKgtQ2OsjTB8UH Ovj4t1Gd82jMM+NOVwBWR6dKdtPDgd v686WbHzi1guZMC5 tWFlVHvqEQW1F13pd4S3PFNdOPKnZE C8lDL7yO0qgQhcdlgdC8DkwXWqGeR0 DAK5zMLmfM8dsYrv xxnyeS0oHyc+Y49HWN0OHZZNZJ9XVb x6N7QhDqrqfVR+XP43WDKdCL95vAGc hEYmn9rvrFj5NrOj ERDbKCF2aSrqUCotf7CfSPWzE81dfM Zcz6K9BJKnkZytsDDlCpZkaVG6dY0g OEzmjxdmc3ayjbtf Tslkv6vbst80sQ63A11pAFtqMBHsNW Y6PGOtFAXipOecxe1nlP0aTy6+IDxj g8jlz5ceuZg7UyHp JLWixfDlxRwnZZP6d3GoVu25F5OlwD woa2RySxc3qn03rQFem4H9jZB1MEoh ODAswF6gJJvkHxL4 CEXaIbDabW63aXInTMkeOa5bkGxyyA euVF2vAQJlwtswUABvvV0nRFTrmDJg nJrxVL0cXQAzrcpq w386HnIoUKY3DEMyqUZjY2ZrwU3xDr BlLSTpDEUnP4EnmXDuDIpdX438IOrn PgL3YMGppvZrJ0Ih NDXobGwrCqG7z5M5Xo7Yk5DyptabFE D3HTcmSTL4TcD1NgOgJxM8C7VxNtb6 LITdiIgiYG6yK4Dd ZMBgajobxkienWA3XRPhDXZyfW10eN GeQUztBf0mn4M8j936VNGhUNCiqE19 Dj2yfFmzNAJrbABI lG7xvvgsd9vaikdrOtRjUQOtWMe4VI d6RMWdjErkQpAbIQW8UfB1LAV9jEMg qY2bkJljayafxF2q Oyc+S29ilH7aQIE8FEB6mlzhGIEpcc QrKK98GV29Y6AgJlvrtBWtiQM+PGRp gfUhcDfrAV4iZjMv m6deb6NgECqqL1PaKGLbTWxuUdf4IW IjDHY1hSW4xC2nAVXeLTdst4D4iKP1 K4TrddBtif9dl4vu RSQnUZbwY32gsDCkd4R8YXLrwRC7PE HcsTvyAoPkwS77Avx+FVFooUuiq0Xf Prsez3smu2zowVx0 ChYcCKBtsbUddFnpJKV3u0QaUy83R7 2bMAuxXOQjIEYdXBBoXUCdnKpdcq0d aX8lNi7+PGNvbCB3 uAR4bX8mUQMyCpQ5RUawR203QlDnxX JxOvehs0kaj0oroVc9KrFkKGAvogZq yTqgJAE8g5CoLc71 Q24vKFdvYFXrQSZoLHXvPDApsXplcl 7ywY0hWc0+GC9ox3bhkn24aF35nUT+ STMeURB9qXqxNSjs LVGzmG9uHXupAmL3XHHxKgFpgC07tV VxMUaeZb4kaCwavBtwAM7oLRNoaghk z457UxVns2awIADs rMPrVDxqGFX2E23ty4H6ZXTnMYIkHV E7pPD0gX6qlRmkbbfsnKPzdIpbqkMa sAuyMVreBRyrX132 KRTedPupDzOehXjysdAkMyXxSUi0K9 WfBxx6UYQpcFbxIQ6kuCEcBZogXq3x yPwovAsxPA5jOOBi dujzd425JuJaj3abRNOawRRtJXqhHM U7Y90ax0A3YMJvRPMhYLV6wLR6rN8q bGlnbjogbGVmdDsg qaNuiBzpDGxaBQyaP104RQSuqQzhMm JxteQrSDOekIF4NO05JB93oZGtj5L8 uGE6V5PxNQMqcntw avtqhOC1RELrVWLitB26Yv3wmYmuLe 6vNLQiKEL3YHXtlWLfZ6XqwU2oOeGl VCAgJEElJ1FdeIIu UJluP238EEmkGwT7JUErzbEjN5QnID GgsMutAzU6o6W6Se1WX7A3OR53WP77 cZQmv4M6qUQ5R9Dt DZGlzxdeienuwXX0QMYmSKWvyJ68Aa 5zzYwmLb2qNCZrACK1COHphMQtP2Ji uP3oLaXsCBArNOIq H4ZgxLBqZPxjQ306QAxtVxD3ZHGxcn MlJ8UlXMTbrXqrKcO1a6C5Zx9WSWw0 ZR26RL23zCWec5J9 vLJ8K3AcCRHjohparphuiPB1LJJsGO ZuzX28Hh1xoBqlAa4jOMIoUNE6QBBs lBVoF7TewQ5pQwUa TKKgDDAtV1EjwPUrLXyuP538GKvtRu M0EHBpprMhT8OpCGDugSoiBuG4n6P6 Vm1VBSFbBA16PGW4 vZD2EK90HR43A3FyMpehvWGdqTH+PH RhYmxlIHdpZHRoPScxMDAlJyBzdHls IP2tRb2vYBWvERUi kHflkOLzAqSll4yxOJTfITcjWK3mdS prQ1LehLD5VZWhd3r7Ug11N46qY4Wu dXA+VIRzfEG0fJZ8 dE5aTcSpXyG8CPtcH757VaNliDLuMq iug3mut2oylEh3PiF9QWVapbVtvExb ETT8i9LqXv20I69r SZqcVMXsVFAuKWGpANUmvHuoeg5xrU 9wIi8+TGFunPR3zXK5cL5hSiHdMrQ0 LWclZ233XhAhgDTv Cqlif1wpx2clqRj5AxZiKYYikrIrbC udKTB5h0ZaMx72Z1ShnWuyv5BfYrd1 ko29fGCol6F3tFH3 K2OpNKRxqfgkoCWhwYuwMQ3zIGYzft jtVHSvwI1hWBNwB9n8DhZzCdS4TGwm G7PngfZ3JVWvkPLq PFklPBT6Z43nq9E7TDVwHLDmCXM0fZ Q6xW9wpZgakrludPYghQxwlrYgxPpq LZfkWBlsR634BOIp gOumDZQjlU0eUXYflMOuyYshSS1nTB VxxhuhHyPVJKgKWZWUTE9SIUYTAkYM CE79DR58uLCyh3L7 bNS3Y3EnQHJwskrwohwmsAU8TAExHC LnuF75cJKaSZrxNz4jm6G2t099AOSh JXFclY43Eq8hzKod RRKpbBJPoX8xnqpdd8rzbtqpGaPoLU FyDYl4DXc0WFJukHuwMtFhMLD2MeQ3 WUJ7zVPfeL1eeYii potxhW9nXjd+TJNuUdJbCNf5JJqlvC Q+PJMyOQU7yIqsWRltLKJsxH6jYTHv D6t4RtWeBhY7PLvx L9DlZTEpcdniDj13sV3fJiSxDmE1GX mjK0LtqfP0OSMvvAQcIHzxJOF1C23l e5K3POWmWEKgMPZ8 kQL1dD5cqXoqmbppsFHfgZxmyzUbwQ btOQzkRNycM302YPWgbTddSzG7SHyo KSDkAU94PB26dHHq v8L3eYT5M0EzXHDfiipqkgaxmKR7XN UtTASzoG47nAWzZFkxPy4jr7D4v225 QLYyYJIzzZ28Yo8w qJfjOTUapERTmZ2wrdyvx5afydlkQl TrUXVqOIx1FGc8QKDumEznFlUaEFL8 UeC2ZNN6wWTrjC1h gBwtqkqwjJ2uQqn+BgQvMKgkQJ29CC 84kAIoz0F0gPF8Q4EjEHNbojjkkges qPV6GZDiKDSbwH99 uHKxYMezYl9xt9O5e250MXFfWLDgxS 99Ck7yvXmzGEZdjCBSnB9euockp4en cjogIzAwMDAwMDt0 WFy0HFHmgBckToIyTBE1DkX7UST1aU ShxU1izTouunlkmP9eMof+UmVjdXJy cY0dUA44ZZ47L4Zi PjwvdGFibGU+PHRhYmxlIHdpZHRoPS juJEVeYbPdoIgvRC8cYm3fKUKzXDCe wYhuxAGfFhOpy6zg NJJwEUfgHL7ngCsaE0DvjSD0XDJot9 h1Bs27D86lU9TsrDG+XGTrbKZ9jJR4 kK3dVePdKsB1RQjw X678AiGwqDBhTaxxn9mqu1oepAu7Ny AcZJLmgwUehCbeVWO0h3QfHr89B84u IHdpZHRoPSIyMCUi VNBgxCdart8yzP4yKz9+KPLpkEC0zV P9gT6mCwPtAsZ4BPkoM737YtSozIHh HpthV74pA5IajCV+ KRTuYza2RAOhqCbpAZ3rjBYlLEsdBf 3xRFM7CdGkMwPkYLzqD1WcCQZlwhub omffpBS3XPXrVDPk hN96Wi5qmHsxGq2qGYWfLPO5SJAbeA MrQ3BrhM7kRuCqLPFmAFRlR9GymTJa QXqwA910ZTpwEnH0 ERMoubCnT8DtFODphLzsBiD2e7D2Ez 7ZlDuvrDVvRU5mGwAdSYn9I4GtHug7 GYFxjIxpMA6hhWRt PBwbBo3ygPjuoJpbOL0zYZJjmwjpg3 99SsFxh7ifBTEocGPlGDraTXI0T91s b7P6CJJcSPXqVOY1 yKF1nJ3ayOuzncedyTDkvMgbwvWprI ndFQzuYTqbK093CSDktLiiXrOXFzp9 J6XtJnn3FYYedTox CH7lsQIhUYikGu7vdFxctQjiZT2dFC Ymeewxf698MzKbq0ukRTTodCArEAcu NDK8X00aj9L6FXZx IQGhJXS3pJQ1cC8uqBxcgvteoQYbrZ dxctPxuTppHGjmEBooJ561YHEssVbj Ez2OYme6D2QaOng5 IQQprGitWR1owGWrYUbkYe3dwIztjH vyNZ6aRBJsvrpye734WhVyw3mwZOOy pYKnHUqjAKT5K97a g2A0WCWhBLKnIOP3jTQ1nG3exQuwbx egtAPamNewxsQtbCxcJImgAKomC551 IHRvcDsnPlBheWVy OjwvdGQ+YT78lm29W7GsHyoxHnq2DS ViHGA3hYV4cT4sMMXlJOtmq1B3jWU8 P2HvawRdku1qt4qx YXBz (more content not included)... [facility] Consent for Treatmenton Consent for Treatment [id number]#[id number]:127 [facility] Outside Records Officeon Outside Records Office [id number]#[id number]:127 [facility] Physician Orderon 04-14-2022 Physician Order [id number]#1.00CD:127 [facility] Coding Summary.on 11-12-2021 Coding Summary. CD:[id number] Gh0bWw+PGh lYWQ+UD4MZLUoS63tsNXrvG2SA8pFZ A8BEMVOSDLHIW2LMA0ewVM6ONagH5O ybiAv WlvpjETlHV86NGg0RJZ2aVouGFxepC 3acBWnH7v2DbCdCQ64kH15IAtpOIKz MhU6MgPknhtocTTz R2ohOkIitTHmUrb+PHRhYmxlIHdpZH HbZHphBUQxVkQrlIsfLP9mVt3hJHBy LWNvbGxhcHNlOiBj d1osAYLpJZluGF0hbDsbV1JgtNQ8OR Qbi9l1Ix35tTM+JFTsIRR1xChaDHis o301JtHrv4mnRRU9 hVKcSQakROV0R81tc8C5XNHqYHPzMQ A9qKU4jA9taAvtjmdaK9VliUAsLpZ7 SWQ7lMIcnZ5crLdi uwxboW1fQsc+X33ZNV9VUYRHSG8BXq k3H0FcLgibjIS+RK70IYYeCN77ySRp sKRbb4epmHo1ErCq RFZlPWM2lMmpLIxnj7XhEQSaC70pnN Mmr7O5XEQubHuvyQAwOtEsoHS3yE5y PNwjfukud4kumgwy Hguhc4hlwf90hV94A66tUQnzTAVzIP J2XGJsTVTzuExcsc8rjY5sEf7+IDxj n6qoi5ttxPy5UeEi XAVnpbTzuNjbXFS1n1DrTn86P2WstY jnq7YxEwm1eg56kHPgr6U9yYN4DRmy MCJxmK5mTMoaVhQ0 OMYoIxIioW98sDLjVRdjYo3hcPbpoY epND2sMOJwbcglKFVkkE2fTRHeuDSa cTowIH0aKPOueoan u018OhAnZZG6DZXkaKXjH9BunQ4oSh MvMXGuWAPlI5JdrUNuECrwM253PNre BbL1ZZQnzmYwL2Fg ZMMysYnoPzH3f5I8Pv6Ge0IkproeRN I7CIahJSAoKoD4NeEsDrS6Z4PsJna5 JVNwkLouSZ6yC9Jt CEZnpfbipaezlHF5FCHbJLHzaK01rD QpNSdaKe1cs5J5g582YQVcPJJxpM68 Uf2gbEcsQFPitGBU eZ3oaxuxh6qcxxweYwVlGEPzCRg9XH u3KPMnxAnoFgJzNNH3PtB3SNV3bNZw uP1qdAajadxygC5x Oyc+A56jnS2fNWE9BQR5brfhLZWofu RuUM07ZK74Y6GlXmpuwHLonJT+PGRp ppQliFfdTD4zNxPy z5opw3EtNCunH0DoBFOaOGhzZdy8DS ZuWDD3pYK0nD9eHBHqARlmo3T0xWL3 Q1PcxiDxna0oi6sk YRJgUCjeF56rtXJkm5P8JKWtaEK2BC JqoKgwRiXfhI50Mrj+PPOdaAzos8Qc Bjuwm4sgp3cxdCz0 QnMjSTHvylWkxBrlSWA0w7TpAn41L4 5pKHkqJZQrHYSpPYZcCXSetBvuhw5a aS8hXr9+PGNvbCB3 cNP4eO9fOFKjItN0HQhbG475DmSlmL ItWghfi2liz7lttSl3HwDwEPLnofLf kIetZWI0h7RiBo06 A13vCXevKJNtVWQnBWEjPZKoiRelpc 7kpS7kLq4+PB0kf4tnrx63iE26tDQ+ AFGqMIN7zIttTKpn JXDjwB0xEMwxBcN4KLUpCkDhyN23mD AsGCqhOo0siSsniEadAS3pNJNzzyqa d425KqFnm0ofCUBk oHSvGWycPJO6Z31fn1S9HUTwNPPrWJ B0kLG7dI5isHuxpjgrgHSqpEamzzIx pBhbFHywNMsqS170 XXNusGrfDzAhwAzylvZmAdXsFLy6K0 GyCbu0HXYnaEwaBH4emYLtSJeiQx5n zRkpmTajYJ9gLCHb jidus044PtBos2kcMBZppSWoDXpgQE K4X97ml8C6YADaRLUbHBV7oJU6gP9m bGlnbjogbGVmdDsg lfWupYarFFwxMMywB603FTBnaWexCr WrxlTaAWPaiZA4YW58YK21uSLjh2Q1 vHT5O8NpGXEvxljg zxvldQX1YIYjXLTbwI47My0fnDifRp 5kWPNtWZC6IIRquOPdW9DhfD4nPnZw TYTpFRAjV6BsbJGb HLuzR198ZLetMiL0PBNpyeKeF0FoBH DawLspOeY4x6T0Cc5GE8R4UY78DZ11 mIAbx2Q9mLX9C9Kw BQFocjypmxdajTS6ZNOePSVrpJ71Um 8seIwdRn4sKAUkOSZ9ELOdlCCuZ4Ai fH7eTjSbCVSiFSId V1TihCOcVZfcJ105PUcfQkE2NXPtzz KeY9MrJTRvtYmrWkW4j2M5Gl5KASn5 LL36JZ98fOPml5A2 hCT1Q6XiPETtxhognyqqrWP5NXDrON BrfR93Xc2bxCxwKk1iWSTzASH0RHRm wORmH4ZouA3iTtPh XGDsZIWmR6BemUNtFCasM083NPdbBv C8VJRzlkGeU9CuNFWrqQpoXuJ2w7G0 Ys5MNYIyIJ89HWU5 uXW9XV99GH11L3ApNagfeHWuhKS+PH RhYmxlIHdpZHRoPScxMDAlJyBzdHls GY7qLa4kRLSoBKGp uTdkjAQvEvMir2ulOYAnYYolBZ8euW coB1MvyPG8GUXzq3u1Hq39T85zA4Wl dXA+YGKcjKH6dGR7 pJ9jFzPgRcK9SPusS835CyTinVNfBs atr5xrp8exgKu2CkF5TGKihbFfvXkn XYB6d3PkQs62K50l SSysUBEqEGFtSDOkGRHgmMdyda4xzU 9wIi8+IASeyEN0iVH5gT8kIfGwDnF9 NDtvN364XgHuuMMf Qbxae1lju8fkbNi7RgItYHBwptDrqE twCVD7q5RfCx28F5YktKlpf1WgVst3 xx63nBGmm6Z7nLR6 K9IoYXYnewhyuIDsjCpvCF2gKYHrqg pmFHDvlC3bQGCmV8x3VxKgNdQ4AHtn F3YfklH1RQXniIBm KKlyZDS9U02bp0M1WSPoPNSzHRM1aV L0jB4yvBhfonvucRYmhBbrdpMktVwf KAgdTAmgD235IXTe xXarPEDhgY6hYTWsmGZtqKsiJN1rGN LmqdsfCzZKOMhUEZKULJ0WQJAXFzRP WQ70RE82kMPml3L5 wVQ3Y0IwACTpaqxnutrsdZC8CEFlOC BibI68cUCcGSthAj0ru6P8o217CPDi UGJymY28Nn0ubEqj DJJnoVREgG6cfrlek8oujhdwIrGrPD IgCFm9KGo9QYPzkRhhHfKrPPV2PzJ8 KDJ6jTFhzG9hqMzb sehihW8zXek+RLYlZcUaRWe1PQtsrR Q+YLRhLSN4lZuoFYghEDZhfQ5aPADj O3t0RzRpGeV9UIsw K1SzDHWzxhmmQe71tW5iQjFtUaZ0IK pjM9FaobY8TVFdcOLtNRbvIXH0C09e t3N5CQBwJLChBHF0 yHY9nJ8byVqpsantsRGafVrhbzVpcC miFDbaRDloK449GKKtvPclTqVfIYjd ZJZzEI95EL56oTOv z7R8kXB4Z7JfBCRynrnuefzjuKK2MP RmJKQslX42eLNxXCquYc0lx8F4r886 PFMxKWDbsV44Gx1n uKwaDYUxcZWTwV7hqtbpr1yqynigLw SoPBCaZMc4VSc7RHKvbSmtOnSwOUL3 ZtH5BDX5bCUeiR1x pQecnuxnlM4aVre+SnFpNLzrIW72AS 87rVWlj3J4aIC3S3BoZMWkibunguxh dGE8YYHfXCYzhN97 zGAbHSwxUm1rs0X5q978FQAhZWImaP 78Yz6ckBmqUMMorUOJbY9jzvbvo1it cjogIzAwMDAwMDt0 ECe7AILylKxmYdNcNRE6HbS9WHA2qF KljF4lkFpqubvrnT1cLgf+UB8motuj guA7WS51AF49R9Uy PjwvdGFibGU+PHRhYmxlIHdpZHRoPS hrDGJxPaQxjUugXT4bKc9kBMZiJHIr qZgnjISfFcGjy1wd QBYzVLyaEV2ovHgaF9NcfNC0SOQeg5 i0Lp00J50zV3ZlsLX+FXKgqFF7oZK6 hV6pWpIgTzD5BQld V492IvAgmCPxVualx3eta4txiBz7Vm CiOMMbxzPniPfuZCZ8s2ByFc40X26s IHdpZHRoPSIyMCUi NLPuzIbfve1gsI0fNq3+JDGljSS7mH D6uV1eWqSxBbA9HBbbB403YvCnpZMu ErxmS05fU4HqjXH+ DYFmJgr1NIMtyLxzOK3yuENhXBzuTw 0pMAR3IsXfZeDyOUlnB1XmOXKeuybl skudlMK8BRVlKAZa yP71Oa7mbApdUz0nTHDvURF2SOOlpW FuJ0NwwL5wIjMfUPVcSETbK3UlqCDd BVjnW919WWzvWgM4 FZKnrhHfJ2WgOJTtrCueZpQ4i8Y4Gh 7BqTpduPRlTQ5fJmNzDZi8C4LzJxz2 LBUokLgxLV4btUIa XXjsFk4hbKmafXecLH7tEWFfjstsv6 52SnOrp9uaTIVotQNuJTelJSK6N37n r4B4LTZmPAXmRTU7 mNW3qC3amZqlgthwxOVvuBfkduKpcM atJDumHTzlC569ECDuvFyrDaTVTyu1 X5TrXex9KSRugRnc NC3gbFQnJKoaXd7wlTugdBmjJS3qXF Uiacfyl478DvWfg6qnSVZqaKFsLTao XBM4M63qu1O7XIGe TPTiVCD2aXR8zN7tgEovwlzdiAZoiU gryrKvuUlvUQfcZAjuS224VDTodWrk Bp6HIjn0V6YcTrw0 XAGpkXomHA2bdSUqEBocBr4iaNfwhD vpCM4lCXSyncsau619NqNyq1zfISYy iMAwTAgjTSF2X76c e2T0FSDvOMBmCSD7mNH2eX7taPpygq isoHDfgEsvioRejFffTEjqHEbcZ330 IHRvcDsnPlBheWVy OjwvdGQ+VV63nr49X7GmHpxhAnx2PC NcUWP2oYF0iB5pVUQfFYjus9K9xGG0 N9CmtsVrnv6wq3zc YXBz (more content not included)... Normal [facility] Consent for Treatmenton 10-19 Consent for Treatment [id number]#1.00CD:127 Normal [facility] Discharge Instructionson Discharge Instructions [id number]#1.00CD:127 Normal [facility] ED Clinical Summaryon 2021 ED Clinical Summary [place] [id number] ED Clinical Summary Person Information Name: MARILEE ARRIAGA Felipa/[facility] Age: 45 Years : 1975 Sex: Female Language: Persian PCP: FRANCOISE GAY Marital Status: Single Visit [...] 11/05/2021 16:00:59 11/05/2021 16:00:59 11/05/2021 16:00:59 ADDRESS: [address] [place] [phone] PHYS DOC NOTES: MEDICAL INFORMATION: Prescriptions Given: New Medications [facility]/pharmacy #[id number], [address] [place], [place] [phone], [phone] acetaminophen-hydrocodone (Touchet 325 mg-5 mg oral tablet) 1 Tablets [...] Follow up: With: Address: When: Em Mir [address] [place] [id number] Business (1) In 3 days 11/08/2021 Comments: Return to the emergency room if your pain gets worse or any new symptoms. With: Address: When: FRANCOISE BARNES [address] [place] [id number] Business (1) In 3 days DIAGNOSIS: 1:Avulsion fracture of left ankle; 2:Sprain of left foot Normal [facility] ED Note-Physicianon 11-06-19 ED Note-Physician Basic Information [...] and crutches was given. Patient was given Touchet in the emergency room. Will discharge patient home with Touchet and follow-up with Ortho. The OARRS report [...] Foot 3+ Views Left Medications Administered Given Touchet 5/325 Tab, 1 tab(s), Oral Disposition Plan Patient Discharge Condition Stable Discharge Disposition Discharged home Discharge Prescription List Prescriptions Touchet 325 mg-5 mg oral tablet, 1 tab(s), Oral, q6hr, PRN Follow-up With When Contact Information Em Mir In 3 days 11/08/2021 EDT [address] [place] [address]- Business (1) Additional Instructions: Return to the emergency room if your pain gets worse or any new symptoms. FRANCOISE BARNES In 3 days [address] [place] [address]- Business (1) Additional Instructions: Patient Education Crutch [...] Tab, 100 mg= 1 tab(s), Oral, Daily Touchet 325 mg-5 mg oral tablet, 1 tab(s), Oral, q6hr, PRN ondansetron 4 mg/5 mL oral solution Prozac 20 mg Cap, 20 mg= 1 cap(s), Oral, Daily Prozac 40 mg Cap, 40 mg= 1 cap(s), Oral, Daily Qvar with Dose Counter 80 mcg/inh inhalation aerosol ranitidine 150 mg Tab, 150 mg= 1 tab(s), Oral, BID SEROquel 100 (more content not included)... Normal [facility] Comment on above: Result Comment: [...] 08/04/2001 Document Revised: 07/20/2018 Document Reviewed: 01/27/2017 [employer] Patient Education ? 2020 [employer] How to Use a Stirrup [...] the bra (more content not included)... Normal [facility] ED Patient Summaryon 022 ED Patient Summary [place] [id number] Patient Discharge Instructions Person Information Name: MARILEE ARRIAGA Age: 45 Years Arrival Date: 11/05/2021 13:19:01 Discharge Diagnosis: 1:Avulsion fracture of left ankle; 2:Sprain of left foot Primary Care Physician: FRANCOISE GAY Provider Information Primary Provider: Tyler Petersen M.D. Advanced Ball Thread Machine Tender:None The exam and treatment you received in the Emergency Department were for an urgent problem and are not intended as complete care. It is important that you follow up with a doctor, nurse practitioner, or physician?s assistant women's soccer coach for ongoing care. If your symptoms [...] Follow-up Instructions: With: Address: When: Em Mir [address] [place], [place] [phone] Business (1) In 3 days 11/08/2021 Comments: Return to the emergency room if your pain gets worse or any new symptoms. With: Address: When: FRANCOISE BARNES [address] [place] [id number] Business (1) In 3 days In the [...] opioids can be used to help relieve sifhxqiu-jy-oyfuci pain and are often prescribed following a [...] Administration (www.fd (more content not included)... Normal [facility] XR Ankle 3+ Views Lefton XR Ankle [...] Barnett MD Transcribed by: KAIDEN Technologist: Normal [facility] XR Foot 3+ Views Lefton 10-19 XR Foot 3+ Views Left Exam Date/Time: 11/05/2021 13:50 EDT Reason for Exam: Fall Report Refer to concurrent left ankle radiograph dictation. FINAL REPORT Dictated: 11/05/2021 2:04 pm Rony Barnett MD Signed (Electronic Signature): 11/05/2021 2:04 pm Signed by: Rony Barnett MD Transcribed by: KAIDEN Technologist: Normal [facility] MRI BRAIN W WO CONTRASTon MRI BRAIN [...] MASS EFFECT.NO ABNORMAL SITES OF DEMYELINATION.RHINITIS.Interpr eted by:SUAMNTH Garciaigned by:Margo Mendez MD02/13/18inal result Normal [facility] CNDSon 02-16-2017 CN HNO ID: [id number] thor: Mark Anthony (Romain) AdenugaService: General SurgeryAuthor Type: ResidentType: Discharge SummariesFiled: 02/16/2017 11:44 AMNote Text:The [place] [id number] or [phone] [facility] O N F I D E N T I A L I N F O R M A T I O N -----[facility] DOCUMENTDISCHARGE SUMMARYPatient Name: Marilee Buckner Date: 02/13/2017Discharge Date: 02/16/2017Attending Physician: Eleni Pfeiffer Diagnosis: Morbid obesitySecondary Diagnoses:Patient Active Hospital Problem List: Obesity, Class III, BMI >= 40 (morbid obesity) ([facility]) E66.01 (02/12/2017) Morbid obesity ([facility]) (02/13/2017)Operations During Hospitalization:Laparoscopic Crystal en [...] as needed.Future Appointments:Future AppointmentsDate Time Provider Department [place]02/23/2017 2:30 PM [id number] MORENOI GENS A/M 03/09/2017 11:00 AM [id number], KASEY (PHD) GSPSMN GENS A/M BL03/16/2017 12:00 PM [id number] 2 GENBMI GENS A/M BLD04/06/2017 1:45 PM [id number], STACY Gale GENBMI GENS A/M BLD05/16/2017 10:30 AM [id number] SOTO GENBMI [facility] A/M BLD05/16/2017 10:30 AM [id number], ARCHANA A GENBMI [place] A/M BLDPatient will follow-up in clinic with Renée Moreno MD as scheduledabove, or sooner if the need arises.Electronically SIGNED by Licensed Independent Practitioner: Mark Anthony Jean MD Normal [facility] Glucose POCT ([facility], [place], [place] A Use Only)on 02-16-2017 Glucose mass conc 105 mg/dL High 65-100 [facility] Comment on above: Performed By: #### G LUPOC ####[facility] [place], [place] [phone] NURSING PROGon 02-16-2017 NURSING PROG HNO ID: [id number] thor: Lilibeth Ortega (Rn) SUNSHINE Santoservice: (none)Author Type: Registered NurseType: Nursing Progress NoteFiled: 02/16/2017 11:37 AMNote Text: Nursing Progress NotePatient Name: Marilee OlivierJeraldRN: [id number] Location: [place] [address]/[id number] Da nena Note: Patient has been discharged [...] completed by: Lilibeth Santos RN [facility] NURSING PROG HNO ID: [id number] thor: Lilibeth Ortega (Rn) SUNSHINE Santoservice: (none)Author Type: Registered NurseType: Nursing Progress NoteFiled: 02/16/2017 10:27 AMNote Text: Nursing Progress NotePatient Name: Marilee SmithRN: [id number] Location: [place] [address]/[id number] Da nena Note: Doing better this am, able to take all of pills and drink theKphos, took a shower, so taking in more po, pain controlled, no emesis, nomore bloody stool, ambulating VSS, on RA, expecting to go home today,continue to monitor.This note was completed by: Lilibeth Santos RN [facility] PROGRESSon 02-16-2017 PROGRESS HNO ID: [id number] thor: Hiram (Romain) HuysService: General SurgeryAuthor Type: ResidentType: Progress NotesFiled: 02/16/2017 8:02 AMNote Text:General Surgery Progress NoteName: Marilee OlivierJeraldRN: [id number]: 02/16/2017SUBJECTIVESubjective: No acute events overnight. Last melenotic [...] lb) LMP 01/27/2017 SpO2 94% BMI 62.73 kg/m6Olxnwd/Output Summary (Last 24 hours) at 02/16/17 0759Last data filed at 02/16/17 0616 Gross per 24 hourIntake 290 mlOutput 950 mlNet -660 mlGeneral: NAD, alert, orientedLungs: nonlabored breathing on nasal canulaAbdomen: soft, nondistended, appropriately tender, incisions C/D/IExtremities: warm, well perfusedLabsCBCRecent Labs 4 02/14/1705608WBC 13.80* 11.75* 15.32* 15.53*HB 10.7* 10.9* 13.5 14.7HCT 32.6* 33.8* 40.2 44.1PLT 391 368 438* 479*BMPRecent Labs 944 51608 [id number] 141 137 137 138K 4.2 4.5 4.0 4.6CHLOR 104 99 97 97*CO2 27 25 20* 24BUN 15 8 14 19CREAT 0.78 0.71 0.74 0.84GLUC 119* 115* 96 79CA 8.1* 8.8 9.9 9.4ASSESSMENT/PLAN41 year old female with morbid obesity now POD 3 s/p kgtynnwqvbpjYkzj-ab-[id number] gastric bypass. Bloody bowel movements resolved with stable H/H.- Phase 2 bariatric diet- Heplock IV- Wean O2- PO pain meds, hold toradol- Will discuss resuming DVT prophylaxis- Encourage incentive spirometry and ambulation- Anticipate discharge today on home Richelle Gordon [facility] ResidentPager [phone] Normal [facility] Basic Metabolic Panlon 02-15 Anion gap 10 mmol/L Normal 9-18 [facility] Comment on above: Performed By: #### B MP, MG1, PHOS ####[place] [phone] Calcium 8.1 mg/dL Low 8.5-10.5 [facility] Comment on above: Performed By: #### B MP, MG1, PHOS ####[place] [phone] Chloride 104 mmol/L Normal 98-110 [facility] Comment on above: Performed By: #### B MP, MG1, PHOS ####[place] [phone] CO2 27 mmol/L Normal 23-32 [facility] Comment on above: Performed By: #### B MP, MG1, PHOS ####[place] [phone] Creatinine 0.78 mg/dL Normal 0.70-1.40 [facility] Comment on above: Performed By: #### B MP, MG1, PHOS ####[place] [phone] eGFR (non-black) mL/min/{1.73_m2} Normal >60 [facility] Comment on above: Performed By: #### B MP, MG1, PHOS ####[place] [phone] Glucose mass conc 119 mg/dL High 65-100 [facility] Comment on above: Performed By: #### B VIANCA, MG1, PHOS ####[place] [phone] Potassium molar conc 4.2 mmol/L Normal 3.5-5.0 [facility] Comment on above: Performed By: #### B VIANCA, MG1, PHOS ####[place] [phone] Sodium 141 mmol/L Normal 132-148 [facility] Comment on above: Performed By: #### B VIANCA, MG1, PHOS ####[place] [phone] Urea nitrogen 15 mg/dL Normal 8-25 [facility] Comment on above: Performed By: #### B VIANCA, MG1, PHOS ####[place] [phone] CBCon 02-15-2017 Erythrocyte distribution width Auto Ratio (RBC) 12.9 % Normal 11.5-15.0 [facility] Comment on above: Performed By: #### C BC ####[place] [phone] Erythrocytes (RBC) 3.63 10*6/uL Low 3.90-5.20 [facility] Comment on above: Performed By: #### C BC ####[place] [phone] Hematocrit (HCT) 33.8 % Low 36.0-46.0 [facility] Comment on above: Performed By: #### C BC ####[place] [phone] Hemoglobin mass conc (Bld) 10.9 g/dL Low 11.5-15.5 [facility] Comment on above: Performed By: #### C BC ####[place] [phone] MCH 30.0 pG Normal 26.0-34.0 [facility] Comment on above: Performed By: #### C BC ####[place] [phone] MCHC mass conc (RBC) 32.2 g/dL Normal 30.5-36.0 [facility] Comment on above: Performed By: #### C BC ####[place] [phone] MCV 93.1 fL Normal 80.0-100.0 [facility] Comment on above: Performed By: #### C BC ####[place] [phone] Platelet mean volume (PMV) 8.5 fL Low 9.0-12.7 [facility] Comment on above: Performed By: #### C BC ####[place] [phone] Platelets 368 10*3/uL Normal 150-400 [facility] Comment on above: Performed By: #### C BC ####[place] [phone] WBC (Leukocytes) 11.75 10*3/uL High 3.70-11.00 [facility] Comment on above: Performed By: #### C BC ####[place] [phone] CBC and Differentialon 02-15 Abs Baso 0.02 k/uL Normal 0.00-0.10 [facility] Comment on above: Performed By: #### C BCDIF ####[place] [phone] Abs Archer 0.97 k/uL High 0.00-0.86 [facility] Comment on above: Performed By: #### C BCDIF ####[address] Abs Neut 8.11 k/uL High 1.45-7.50 [facility] Comment on above: Performed By: #### C BCDIF ####[address] Basophils/100 WBC Auto (Bld) 0.1 % Normal [facility] Comment on above: Performed By: #### C BCDIF ####[place] [address] DTYPE Auto Diff Normal [facility] Comment on above: Performed By: #### C BCDIF ####[place] [id number] Eosinophils 0.35 10*3/uL Normal 0.00-0.45 [facility] Comment on above: Performed By: #### C BCDIF ####[address] Eosinophils/100 leukocytes 2.5 % Normal [facility] Comment on above: Performed By: #### C BCDIF ####[address] Erythrocyte distribution width Auto Ratio (RBC) 13.1 % Normal 11.5-15.0 [facility] Comment on above: Performed By: #### C BCDIF ####[address] Erythrocytes (RBC) 3.51 10*6/uL Low 3.90-5.20 [facility] Comment on above: Performed By: #### C BCDIF ####[place] [phone] Hematocrit (HCT) 32.6 % Low 36.0-46.0 [facility] Comment on above: Performed By: #### C BCDIF ####[place] [phone] Hemoglobin mass conc (Bld) 10.7 g/dL Low 11.5-15.5 [facility] Comment on above: Performed By: #### C BCDIF ####[place] [phone] Lymphocytes 4.35 10*3/uL High 1.00-4.00 [facility] Comment on above: Performed By: #### C BCDIF ####[phone] Lymphocytes/100 leukocytes 31.5 % Normal [facility] Comment on above: Performed By: #### C BCDIF ####[place] [phone] MCH 30.5 pG Normal 26.0-34.0 [facility] Comment on above: Performed By: #### C BCDIF ####[place] [phone] MCHC mass conc (RBC) 32.8 g/dL Normal 30.5-36.0 [facility] Comment on above: Performed By: #### C BCDIF ####[place] [phone] MCV 92.9 fL Normal 80.0-100.0 [facility] Comment on above: Performed By: #### C BCDIF ####[place] [phone] Monocytes/100 leukocytes 7.0 % Normal [facility] Comment on above: Performed By: #### C BCDIF ####[phone] Neutrophils/100 WBC Auto (Bld) 58.9 % Normal [facility] Comment on above: Performed By: #### C BCDIF ####[place] [phone] Platelet mean volume (PMV) 8.3 fL Low 9.0-12.7 [facility] Comment on above: Performed By: #### C BCDIF ####[place] [phone] Platelets 391 10*3/uL Normal 150-400 [facility] Comment on above: Performed By: #### C BCDIF ####[place] [phone] WBC (Leukocytes) 13.80 10*3/uL High 3.70-11.00 [facility] Comment on above: Performed By: #### C BCDIF ####[place] [phone] Glucose POCT ([facility] [place], [place] A Use Only)on 02-15-2017 Glucose mass conc 111 mg/dL High 65-100 [facility] Comment on above: Performed By: #### G LUPOC ####[address] Glucose mass conc 121 mg/dL High 65-100 [facility] Comment on above: Performed By: #### G LUPOC ####[place] [phone] Glucose mass conc 99 mg/dL Normal 65-[address] [place] [address] Comment on above: Performed By: #### G LUPOC ####[place] [phone] Glucose mass conc 116 mg/dL High 65-100 [facility] Comment on above: Performed By: #### G LUPOC ####[place] [phone] Magnesiumon 02-15-2017 Magnesium 2.0 mg/dL Normal 1.7-2.6 [facility] Comment on above: Performed By: #### B VIANCA MG1, PHOS ####[place] [phone] NURSING PROGon 02-15-2017 NURSING PROG HNO ID: [id number] thor: Lilibeth Ortega (Rn) Racquel Santosice: (none)Author Type: Registered NurseType: Nursing Progress NoteFiled: 02/15/2017 4:15 PMNote Text: Nursing Progress NotePatient Name: Marilee Grimaldo: [id number] Location: [place] [address]/[id number] Da nena Note: Dr called to inform that patient had another bloody stool itwas dark red, no change in vital signs HR has remained in 70's, on RA, noincrease in pain, patient is only taking sips of clears otherwiseunchanged , stable, lab orders again @ 1800.This note was completed by: Lilibeth Santos RN [facility] NURSING PROG HNO ID: [id number] thor: Lilibeth Echeverria) Doroteo Santos: (none)Author Type: Registered NurseType: Nursing Progress NoteFiled: 02/15/2017 10:29 AMNote Text: Nursing Progress NotePatient Name: Marilee PruittN: [id number] Location: [address]/[id number] Da nena Note:Patient states she's feeling ok, just brought up some 'phlegm',( clearbubbles) no emesis, able to keep down 'bites' or sips of broth and tea,given IV phenergan, denies pain, encouraged to continue to ambulate,stable, call light in reach.This note was completed by: Lilibeth Santos RN [facility] NURSING PROG HNO ID: [id number] thor: Doroteo Lopez Rn: (none)Author Type: Registered NurseType: Nursing Progress NoteFiled: 02/15/2017 5:53 AMNote Text: Nursing Progress NotePatient Name: Marilee SmithRN: [id number] Location: [place] [address]/[id number] Surgery paged [phone] Marilee Arriaga: patient had dark bloody BM. pleaseadshawnae. [place], [place] [phone] No new ordersThis note was completed by: Liliana Seth RN [facility] PROGRESSon 02-15-2017 PROGRESS HNO ID: [id number] thor: Mark Anthony (Res) AdenangyService: General SurgeryAuthor Type: ResidentType: Progress NotesFiled: 02/15/2017 8:25 AMNote Text:General SurgeryProgress notesAdmitted: 02/13/2017OR date: 02/13/2017 Procedure(s) and Anesthesia Type: * LAPAROSCOPIC GASTRIC RESTRICTIVE SURG W/ BYPASS AND CRYSTAL-EN-Y = 42 (morbid obesity) ([facility]) E66.01 (02/12/2017) Morbid obesity ([facility]) (02/13/2017)Hold Lovenox/Toradol, recheck labs, decrease [...] good BG controlDispo: Continue RNF, potential discharge tomorrowPakameron Jean MD (PGY 2)[id number] 6PM weekdays and all through weekends: [id number] SNausea and emesis yesterday, improving and PO intake improvingSlept okayDark bloody BMs this AMAmbulating well OTemp (24hrs), Av.7 ?C (98 ?F), Min:36.4 ?C (97.6 ?F), Max:36.9 ?C(98.4 ?F)BP 147/78 Pulse 80 Temp 36.4 ?C (97.6 ?F) (Oral) Resp 16 Ht 154.9cm (5' 1 ) Wt (!) 150.6 kg (332 lb) LMP 01/27/2017 SpO2 99% BMI62.73 kg/y2GWMJYXZ: Mild distress as actively nauseated and sitting up with vomitbag, alert and oriented x 3HEENT: NC/AT, EOM's intactRESPIRATORY: Respiratory effort unlaboredCHEST-CVS: HDSABDOMEN: Soft, obese and non distended, non tender, laparoscopic incisionsCDI with glueNEURO: Grossly non-focal02/14 07 - 02/15 0659In: 3622 [PO:300; IV:3322]Out: 2180 [Urine:1850] [facility] PROGRESS HNO ID: [id number] thor: Renée MorenoService: General SurgeryAuthor Type: PhysicianType: Progress NotesFiled: 02/15/2017 [...] IVF's as PO intake improvesStreggie Moreno MD [facility] Phosphoruson 02-15-2017 Phosphate 1.9 mg/dL Low 2.5-4.5 [facility] Comment on above: Performed By: #### B REGGIE COLEY PHOS ####[facility] [place], [place] [phone] Vital Signs Date Time Vital Sign Value Performing Clinician Magdalenei frances 09-19-2023 09:41-0500 Body height 157.[address] [facility] 09-19-2023 09:41-0500 Body weight 104.[address] [facility] Encounters Encounter Date Encounter Type Care Provider Facility Start: 05-09-2024 End: 05-09-2024 ambulatory FRANCOISE BARNES Not Available Start: 05-06-2024 End: 05-06-2024 ambulatory Najma Richardson MD Facility:[facility] Start: 04-23-2024 ambulatory Jamey Minor acility:[facility] Start: 02-12-2024 End: 02-12-2024 ambulatory Najma Richardson MD Facility:[facility] Start: 01-31-2024 End: 01-31-2024 ambulatory FRANCOISE BARNES Not Available Start: 01-23-2024 End: 01-23-2024 ambulatory FRANCOISE Del Castillo HEMMER Not Available Start: 01-04-2024 ambulatory [facility] Start: 12-29-2023 ambulatory [facility] Start: 2023 End: 2023 ambulatory [facility] Start: 12-12-2023 End: 12-12-2023 ambulatory GERMAINE Del Castillo OSMEL Not Available Start: 12-04-2023 End: 12-04-2023 ambulatory Najma Richardson MD Facility:[facility] Start: 11-21-2023 End: 11-21-2023 ambulatory FRANCOISE M HEMMER Not Available Start: 10-31-2023 End: 10-31-2023 ambulatory FRANCOISE Del Castillo HEMMER Not Available Start: 10-23-2023 End: 10-23-2023 ambulatory Andzaira Richardson MD Facility:[facility] Start: 09-25-2023 Refill Francoise MARTINEZ Work Phone: [facility] Comment on above: Chronic pain of both knees Start: 09-19-2023 End: 09-19-2023 Patient encounter procedure [facility] [place] Work Phone: Start: 09-19-2023 End: 09-19-2023 ambulatory NON STAFF [facility] Work Phone: Start: 08-05-2023 End: 08-05-2023 ambulatory FRANCOISE BARNES Not Available Start: 07-26-2023 End: 07-26-2023 ambulatory FRANCOISE BARNES Not Available Start: 07-17-2023 Registered [facility] Start: 06-05-2023 End: 06-05-2023 ambulatory Najma Richardson MD Facility:[facility] Start: 11-07-2022 End: 11-08-[address] FRANCOISE BARNES Facility: Start: 06-27-2022 End: 06-27-2022 ambulatory SUNSHINE NEWMAN . Facility: Start: 04-27-2022 End: 10-26-2022 ambulatory FRANCOISE BARNES Facility:[facility] Start: 04-22-[address] FRANCOISE BARNES Facil ity:H1 Start: 11-05-2021 End: 11-05-2021 Emergency department patient visit Tyler Petersen Facility:[facility] Start: 09-18-2018 Patient encounter procedure Ida Weber Facility:[id number] Start: 05-08-2018 Patient encounter procedure Ida Weber Facility:[id number] Start: 02-13-2018 End: 02-16-2018 Ambulatory FRANCOISE BARNES [facility] Start: 12-19-2017 Patient encounter procedure Ida Weber [...] CI [address] [place] [address] Francoise Barnes PA [address] [place] [address] [facility] Start: 12-14-2007 Screening for malign ant neoplasm of cervix [facility] Start: 1998 Screening for malign ant neoplasm of cervix Pap Smear [facility] Start: 1977 Screening for malign ant neoplasm of colon [facility] Immunizations Immunization Date Immunization Notes Care Provider [facility] 05-30-2021 influenza, injectabl e, quadrivalent, [...] Care Payers Date Payer Category Payer Self-pay [id number] 2022 Medicaid [place] [id number] 2022-Present [address] [place] [address] [id number] 2022 Medicaid [id number] 2022 Unknown 2018 Unknown [id number] 2018 Unknown [id number] 1977 Unknown [id number] 2.16840.1.900666.3.579.2.356 1977 Unknown [id number] 2.16840.1.198876.3.579.2.356 1977 Unknown [id number] 2.16840.1.189071.3.579.2.356 1977 Unknown [id number] 2.840.1.945769.3.579.2.727 1977 Unknown [id number] .840.1.841291.3.579.2. 1977 Unknown [id number] 2.840.1.648542.3.579.2.593 1977 Unknown [id number] 2.16840.1.744477.3.579.2. 1977 Unknown [id number] .840.1.026760.3.579.2.593 1977 Unknown [id number] .840.1.764505.3.579.2.1285 1977 Unknown [id number] 2.840.1.435186.3.579.2.1285 1977 Unknown [id number] .16840.1.019656.3.579.2.1285 1977 Unknown [id number] .16840.1.137740.3.579.2.1285 1977 Unknown [id number] .840.1.234680.3.579.2.1285 1977 Unknown [id number] 2.16.840.1.250318.3.579.2.6 1977 Unknown [id number] 2.16.840.1.865466.3.579.2.1285 1977 Unknown [id number] 2.16.840.1.664791.3.579.2.1258 1977 Unknown [id number] 2.16.840.1.786788.3.579.2.1258 1977 Unknown [id number] 2.16.840.1.914703.3.579.2.1258 1977 Unknown [id number] 2.16.840.1.192528.3.579.2.1258 1977 Unknown [id number] 2.16.840.1.045244.3.579.2.1258 1977 Unknown [id number] 2.840.1.940456.3.579.2.1258 1977 Unknown [id number] 2.16.840.1.007910.3.579.2.1258 1977 Unknown [id number] 2.16.840.1.406828.3.579.2.1258 1977 Unknown [id number] 2.16.840.1.464219.3.579.2. 1977 Unknown [id number] 2.16840.1.136456.3.579.2. 1977 Unknown [id number] 2.16.840.1.854679.3.579.2. 1977 Unknown [id number] 2.16.840.1.040677.3.579.2. 1977 Unknown [id number] 2.16.840.1.245930.3.579.2. 1959 Unknown [id number] Unknown [id number] 2.16840.1.601260.3.579.2.531 Unknown [id number] 2.16.840.1.992757.3.579.2.531 Social History Date Type Detail Facility Tobacco smoking stat us NHIS Unknown if ever smoked [facility] Work Phone: Start: 1975 Sex Assigned At Female F [facility] Start: 09-18-2018 End: 01-23-2023 Tobacco smoking status NHIS Never smoked tobacco (finding) [facility] Start: 01-23-2023 Tobacco use and exposure Smokeless tobacco non-user [facility] Start: 07-26-2023 Alcohol intake Ex-drinker (finding) [facility] Start: 01-24-2023 End: 07-26-2023 History of Social function [facility] Start: 01-24-2023 End: 07-26-2023 Tobacco use panel [facility] Start: 04-26-2023 Alcohol Comment Caffeine intake: sod a [facility] Start: 1975 Sex Assigned At Not on file N [facility] Telephone encounter Note 09-25-2023 Telephone Encounter - MICHELLE Cao - 09/25/2023 10:06 AM EST Note Date & Type Note Facility 09-25-2023 Telephone encount er Note OARRS reviewed, Rx sent into patient's pharmacy. [facility] Note 09-25-2023 Telephone Encounter - [...] authenticated by: EM LÓPEZ Date: 2022-06-27 15:38 [facility] Progress note 06-28-2021 Note Date & Type Note Facility 06-28-2021 Note HNO ID: [id number] Author: Em Fernandez, PhD Service: ? Author Type: Psychologist Type: Progress Notes Filed: 06/28/2021 2:45 PM Note Text: Received mental health records from [facility]. Note from 05/06/21 revealed pt has Schizoaffective Disorder and PTSD. She has been more depressed of late. She is hearing daily voices which are noises, mumbling. She stated she is seeing shadows as well. She rates her depression as 7/10. Pt had RNY gastric bypass with Dr. Moreno in 2016. Based on mental health records patient is not a candidate for a revision at this time. However, would recommend patient establish care with obesity medicine to assist her with managing her weight. She can be followed by nutrition and psychology to assist her with her goals. Partial records have been sent to medical records for scanning. Em Fernandez, psychologist [facility] Evaluation note Note Date & Type Note Facility Evaluation note No assessment information availa [facility] Work Phone: Evaluation note Note Date [...] section and content) DATE CREATED AUTHOR 02/14/2018 [facility] DATE CREATED AUTHOR AUTHOR'S ORGANIZ ATION 02/16/2018 [facility] DATE CREATED AUTHOR AUTHOR'S ORGANIZ ATION 10/09/2018 [facility] DATE CREATED AUTHOR AUTHOR'S ORGANIZ ATION 10/11/2021 [facility] DATE CREATED AUTHOR AUTHOR'S ORGANIZ ATION 10/28/2022 [facility] DATE CREATED AUTHOR AUTHOR'S ORGANIZ ATION 11/13/2022 [facility] DATE CREATED AUTHOR AUTHOR'S ORGANIZ ATION 01/09/2024 [facility] DATE CREATED AUTHOR AUTHOR'S ORGANIZ ATION 04/24/2024 [facility] DATE CREATED AUTHOR AUTHOR'S ORGANIZ ATION 05/11/2024 [facility] EPIC DATE CREATED AUTHOR AUTHOR'S ORGANIZ ATION 05/12/2024 [facility] Goals (unrecognized section and content) Goals may [...] September 19, 2023 End: September 19, 2023 Micro Photographer Relationship Specialty Start Date End Date Shalini Coffey MD [address] [place] [address] PCP - General Family Medicine 08/05/23 Reason [...] BE BASED ON THE PRIMARY CLINICAL RECORDS. [facility] [employer] [facility]. provides no warranty or guarantee of the accuracy or completeness of information in this document.
== END 2024-05-15 14:42 | disposition home or self-care (01) ==
LOC: PM 14:41
PROVIDERS: PCP Physician Assistant; Visit Provider Nurse Practitioner
DX: M46.1 Sacroiliitis, not elsewhere classified (principal); M48.062 Spinal stenosis, lumbar region with neurogenic claudication; M54.16 Radiculopathy, lumbar region; M47.816 Spondylosis without myelopathy or radiculopathy, lumbar region; M62.838 Other muscle spasm; M51.36 Other intervertebral disc degeneration, lumbar region
CPT/HCPCS: G0463

== ENCOUNTER 2024-05-27 10:07 | Day surgery (SDC) | payer MEDICAID, SELFPAY ==
--- OUTSIDE RECORDS SUMMARY | 2024-05-27 10:25 | XMS_ITS | CCD ---
Author Organization [facility] Care Team Providers Care Research Physician Name Role Phone FRANCOISE JACOBO Unavailable Unavailable ESPERANZA, DANUTA F Unavailable Unavailable Gus, Ida Evans Attending Unavailable Gus, Ida Evans Attending Unavailable Gus, Ida Evans Attending Unavailable FRANCOISE JACOBO Referring Unavailable HEMKAM, FRANCOISE Admitting Unavailable HEMKAM, FRANCOISE Primary Care Unavailable HEMKAM, FRANCOISE Attending Unavailable HajdTyler mendez Attending Unavailable HEMKAM, FRANCOISE Primary Care Unavailable TRENT ., SUNSHINE Admitting Unavailable TRENT ., SUNSHINE Attending Unavailable MISC, DR SLOAN Primary Care Unavailable CHICAGO, DR EM Snyder Consulting Unavailable TRENT ., SUNSHINE Consulting Unavailable NAELGRANT Consulting Unavailable HEMMER, DR FRANCOISE Del Castillo [...] Unavailable ESPERANZA, DANUTA F Primary Care Unavailable HEMMERFRANCOISE Attending Unavailable HEMMER, FRANCOISE Del Castillo Attending Unavailable OSMELGERMAINE Attending Unavailable HEMMER, FRANCOISE Del Castillo Attending Unavailable HEMMERFRANCOISE Attending Unavailable HEMMERFRANCOISE Attending Unavailable HEMMER, FRANCOISE Del Castillo Attending Unavailable HEMMER, FRANCOISE Del Castillo Attending Unavailable Giedraitis , Andrius Snyderytadrian Attending Unavailable Giedraitis , Andrius Vytautas Attending Unavailable Giedraitis MD, Andrius Vytautas Attending Unavailable Giedraitis MD, Andrius Vytautas Attending Unavailable Giedraitis MD, Andrius Vytautas Attending Unavailable Stephon, Simona E Admitting Unavailable Stephon, Simona E Attending Unavailable NON STAFF Primary Care Unavailable Eddie Jamey Admitting Unavailab le Eddie, Jamey Attending Unavailab le NON STAFF Primary Care Unavailable Allergies Allergy Classification Reported Allergen(s) Allergy Type Date of Onset Reaction(s) Facility (1 source) Cephalexin; Translations: [Keflex] Drug Allergy [facility] Repository (7 sources) Clindamycin; Translations: [clindamycin] Drug Allergy [address] [facility] Repository (8 sources) Codeine; Translations: [codeine] Drug Allergy [facility] Repository (1 source) NSAIDs; Translations: [NSAIDs] Propensity to adverse reactions (disorder) [facility] Repository (5 sources) Penicillins; Translations: [penicillins] Propensity to adverse reactions (disorder) [address] [facility] Repository (1 source) Sulfonamides (Antibiotic); Translations: [sulfa drugs] Propensity to adverse reactions (disorder) [facility] Repository (1 source) alot of ATB's, I dont know names; Translations: [alot of ATB's, I dont know names] Propensity to adverse reactions (disorder) [facility] Repository (1 source) Penicillin Drug Allergy [facility] Repository (1 source) Sulfonamides (Antibiotic) Drug allergy (disorder) [facility] Repository (4 sources) Sulfonamides (Antibiotic); Translations: [SULFA (SULFONAMIDE ANTIBIOTICS)] Allergy to substance [facility] (5 sources) erythromycin base; Translations: [ERYTHROMYCIN BASE] Allergy to substance 7 Rash [facility] (3 sources) Bacitracin / Polymyxin B; Translations: [BACITRACIN-POLYM YXIN B] Drug Allergy 3 [facility] Healthcare Work Phone: (3 sources) Ciprofloxacin; Translations: [CIPROFLOXACIN] Drug Allergy 5 Rash [facility] (3 sources) Erythromycin; Translations: [ERYTHROMYCIN] Drug Allergy [address] [facility] Healthcare (2 sources) Penicillin G Drug Allergy [address] [facility] (2 sources) Sulfonamides (Antibiotic) Drug Allergy 5 [facility] (3 sources) Soap; Translations: [SOAP] Allergy to substance 7 Swelling [facility] (1 source) Grass pollen; Translations: [GRASS POLLEN] Propensity to adverse reactions to drug (disorder) 5 [facility] Repository (1 source) SHELLF[employer] CONTAINING PRODUCTS; Translations: [SHELLFISH CONTAINING PRODUCTS] Propensity to adverse reactions to food (disorder) 5 [facility] Repository (1 source) rizatriptan Drug Allergy [address] [facility] Healthcare Work Phone: Medications Current Medications Medication Drug Class(es) Dates Sig (Normalized) Sig (Original) acarbose 25 mg oral tablet (2 sources) alpha-Glucosidase Inhibitor Start: 05-15-2024 take 1 tablet by mouth in the morning, then take 1 tablet by mouth in the evening, then take 1 tablet by mouth at bedtime acarbose (Precose) 25 MG tablet Indications: Hypoglycemia, unspecified Take 1 tablet (25 mg) by mouth in the morning and 1 tablet (25 mg) in the evening and 1 tablet (25 mg) before bedtime. 90 tablet 2 05/15/2024 Active Start: 04-25-2023 acarbose (Prec ose) 25 MG tablet Take 1 tablet by mouth in the morning and 1 tablet at noon and 1 tablet in the evening. Take with meals. 0 04/25/2023 Active [id number] 200 actuat albuterol 0.09 mg/actuat metered dose inhaler (2 sources) beta2-Adrenergic Agonist Start: 12-26-2023 take 1 puff(s) by mouth every four hours as needed albuterol HFA 90 mcg/act inhaler Indications: Allergic rhinitis, unspecified seasonality, unspecified trigger INHALE 1 PUFF BY MOUTH EVERY 4 HOURS NEEDED 90 g 11 12/26/2023 Active take 1 puff(s) by in halation every four hours for wheezing albuterol HFA 90 mcg/act inhaler Inhale 1 puff every 4 (four) hours if needed for wheezing or shortness of breath. 0 Active ARIPiprazole 400 mg extended release prefilled syringe (4 sources) Atypical Antipsychotic Start: 05-08-2018 inject 400 mg by intramuscular injection every month Aripiprazole (Abilify Maintena) 400 mg Suspension,Extended Rel Syring Active 400 MG IM every month May 07, 2018 11:00pm busPIRone hydrochloride 30 mg oral tablet (4 sources) Start: 05-16-2017 take 30 mg by mouth twice daily Buspirone Active 30 MG PO Twice daily May 15, 2017 11:00pm take 1 tablet by ayla every twelve hours busPIRone (Buspar) 30 MG tablet Take 30 mg by mouth every 12 (twelve) hours. Active cholecalciferol 0.25 mg oral capsule (2 sources) Vitamin D Start: 01-24-2024 take 1 capsule by mouth once daily cholecalciferol (Vitamin D-3) 250 MCG (34934 UT) capsule Indications: Vitamin D deficiency TAKE 1 CAPSULE BY MOUTH ONCE A DAY AT THE SAME TIME. 100 capsule 3 01/24/2024 Active Start: 02-06-2023 take 1 capsule by mo ut once daily cholecalciferol (Vitamin D-3) 250 MCG (97334 UT) capsule Indications: Vitamin D deficiency Take 1 capsule (250 mcg) by mouth 1 (one) time each day at the same time. 90 capsule 3 02/06/2023 Active Continuous Blood Gluc Receiv er (FreeStyle Samreen 2 [place]) device (2 sources) Start: 02-23-2023 Continuous Blo od Gluc Aluminum Molder (FreeStyle Samreen 2 [place]) device USE DIRECTED 02/23/2023 Active Start: 02-23-2023 Continuous Blo od Gluc Aluminum Molder (FreeStyle Samreen 2 [place]) device USE DIRECTED 0 02/23/2023 Active Continuous Blood Gluc Sensor (FreeStyle Samreen 2 Sensor) misc (2 sources) Start: 04-22-2023 Continuous Blo od Gluc Sensor (FreeStyle Samreen 2 Sensor) misc Use as directed 04/22/2023 Active Start: 04-22-2023 Continuous Blo od Gluc Sensor (FreeStyle Samreen 2 Sensor) misc Use as directed 0 04/22/2023 Active diclofenac sodium 0.01 mg/mg topical gel (2 sources) Nonsteroidal Anti-inflammatory Drug Start: 04-26-2023 diclofenac sodium (Voltaren) 1 % gel Indications: Chronic pain of both knees Apply 2 g topically in the morning and 2 g in the evening and 2 g before bedtime. 150 g 3 04/26/2023 Active escitalopram 5 mg oral tablet (1 source) Serotonin Reuptake Inhibitor Start: 04-16-2024 take 1 tablet by mouth once daily escitalopram (Lexapro) 5 MG tablet Take 5 mg by mouth Daily 04/16/2024 Active FLUoxetine 20 mg oral capsule (2 sources) Serotonin Reuptake Inhibitor Start: 05-08-2018 Fluoxetine (Prozac) 20 mg Capsule Active 30 MG PO Daily May 07, 2018 11:00pm hydrOXYzine pamoate 25 mg oral capsule (2 sources) Antihistamine Start: 07-17-2023 take 1 capsule by mouth twice daily as needed for anxiety hydrOXYzine pamoate (Vistaril) 25 MG capsule TAKE 1 CAPSULE BY MOUTH TWICE A DAY NEEDED FOR ANXIETY 07/17/2023 Active lamoTRIgine 150 mg oral tablet (2 sources) Mood Stabilizer, Anti-epileptic Agent take 3 tablets by mouth once daily lamoTRIgine (LaMICtal) 150 MG tablet Take 3 tablets by mouth 1 (one) time each day at the same time. Active lumateperone 42 mg oral capsule (2 sources) Start: 04-04-2023 take 1 capsule by mouth in the morning Caplyta 42 MG capsule Take 1 capsule by mouth in the morning. 04/04/2023 Active 24 hr metoprolol succinate 25 mg extended release oral tablet (1 source) beta-Adrenergic Ophelia Start: 04-24-2024 take 1 tablet by mouth once daily metoprolol succinate XL (Toprol-XL) 25 MG 24 hr tablet Indications: Benign essential hypertension (CMS/HCC) TAKE 1 TABLET BY MOUTH DAILY, DO NOT CRUSH OR CHEW 100 tablet 3 04/24/2024 Active Multivit With Min-Folic Acid (Centrum Multigummies) 80 mcg Tablet,Chewable (2 sources) Start: 08-15-2017 take 2 tablets by mouth once daily Multivit With Min-Folic Acid (Centrum Multigummies) 80 mcg Tablet,Chewable Active 2 TAB PO Daily August 15, 2017 12:00am Start: 08-15-2017 take 2 tablets by mo ut once daily Multivit With Min-Folic Acid (Centrum [...] 08/02/2023 Active nystatin 100 unt/mg topical powder (2 sources) Polyene Antifungal Start: 05-06-2024 nystatin (Mycostatin) 548480 UNIT/GM powder Indications: Rash Apply 1 application topically Daily PRN 60 g 2 05/06/2024 Active nystatin (Mycost atin) 676132 UNIT/GM powder Apply 1 application topically in the morning. PRN. 0 Active omeprazole 20 mg delayed release oral tablet (2 sources) Proton Pump Inhibitor Start: 05-16-2017 Omeprazole Magnesium (Prilosec Otc) 20 mg Tablet,Delayed Release (Dr/Ec) Active 40 MG PO Twice daily May 15, 2017 11:00pm ondansetron 4 mg disintegrating oral tablet (6 sources) Serotonin-3 Receptor Antagonist Start: 12-12-2023 take 1 tablet by mouth every eight hours for nausea ondansetron ODT (Zofran-ODT) 4 MG disintegrating tablet Indications: Nausea and vomiting, unspecified vomiting type Take 1 tablet (4 mg) by mouth every 8 (eight) hours if needed for nausea or vomiting 60 tablet 12/12/2023 Active Start: 05-08-2018 take 1 tablet by ayla three times daily Ondansetron (Zofran Odt) 4 [...] 11:00pm rimegepant 75 mg disintegrating oral tablet (2 sources) Start: 05-09-2024 take 1 tablet by mouth once daily as needed Nurtec 75 MG tablet dispersible Indications: Episodic migraine (CMS/HCC) TAKE 1 TABLET BY MOUTH EVERY DAY NEEDED FOR MIGRAINES 8 tablet 5 05/09/2024 Active Start: 07-26-2023 take 1 tablet by ayla th every other day as needed Rimegepant Sulfate [...] 2017 1:00am tiZANidine 4 mg oral tablet (2 sources) Central alpha-2 Adrenergic Agonist Start: 07-31-2023 take 1 tablet by mouth every eight hours for muscle spasms tiZANidine (Zanaflex) 4 MG tablet Indications: Chronic bilateral low back pain without sciatica TAKE 1 TABLET (4 MG) BY MOUTH EVERY 8 HOURS IF NEEDED FOR MUSCLE SPASMS 100 tablet 2 07/31/2023 Active traMADol hydrochloride 50 mg oral tablet (3 sources) Opioid Agonist Start: 05-01-2024 take 1 tablet by mouth twice daily as needed for pain traMADol (Ultram) 50 MG tablet Indications: Chronic pain of both knees Take 1 tablet (50 mg) by mouth 2 (two) times a day as needed for severe pain 60 tablet 05/01/2024 Active Start: 09-25-2023 take 1 tablet by ayla twice daily as needed for pain traMADol [...] tablet 0 08/28/2023 09/25/2023 Discontinued traZODone hydrochloride 100 mg oral tablet (4 sources) Serotonin Reuptake Inhibitor Start: 10-31-2023 take 3 tablets by mouth at bedtime traZODone (Desyrel) 100 MG tablet Indications: Insomnia due to other mental disorder Take 3 tablets (300 mg) by mouth at bedtime 10/31/2023 Active Start: 09-18-2018 take 50 mg by mouth once daily Trazodone Active 50 MG PO Daily September 18, 2018 12:00am take 3 tablets [facility] traZODone (Desyrel) 100 MG tablet Take 3 tablets by mouth at bedtime. 0 Active 24 hr venlafaxine 150 mg extended release oral capsule (2 sources) Serotonin and Norepinephrine Reuptake Inhibitor take 2 capsules by mouth once daily at mealtime venlafaxine XR (Effexor XR) 150 MG 24 hr capsule Take 2 capsules by mouth 1 (one) time each day at the same time. Take with food Active vitamin b12 1 mg/ml injectable solution (2 sources) Vitamin B12 Start: 08-15-20 Cyanocobalamin (Vitamin B-12) (Vitamin B-12) 1,000 mcg/mL Solution Active 1000 MCG IM As Directed August 15, 2017 12:00am zolpidem tartrate 5 mg oral tablet (2 sources) gamma-Aminobutyric Acid-ergic Agonist Start: 10-31-19 zolpidem (Ambien) 5 MG tablet Indications: Insomnia due to other mental disorder Take 1 tablet (5 mg) by mouth as needed at bedtime for sleep 10/31/2023 Active zolpidem (Ambien ) 5 MG tablet Take 5 mg by [...] [Abdominal pain] Onset: 2023 Episodic Anxiety disorders (2 sources) Anxiety; Translations: [Anxiety disorder, unspecified] Onset: 05-29-2015 04-26-2023 Chronic Diseases of white blood cells (2 sources) Leukocytosis; Translations: [Elevated white blood cell count, unspecified] Onset: 01-23-2023 01-23-2023 Chronic Disorders of lipid metabolism (2 sources) Hyperlipidemia; Translations: [Hyperlipidemia, unspecified] Onset: 01-23-2023 01-23-2023 Chronic Essential hypertension (2 sources) Benign essential hypertension; Translations: [Essential (primary) hypertension] Onset: 01-23-2023 01-23-2023 Chronic Gastroduodenal ulcer (except hemorrhage) (2 sources) Gastric ulcer; Translations: [Gastric ulcer, unspecified as acute or chronic, without hemorrhage or perforation] Onset: 01-23-2023 01-23-2023 Chronic Headache, including migraine (1 source) Headache; Translations: [Headache] Onset: 02-13-2018 Episodic Headache; including migraine (3 sources) Migraine without aura, not refractory ; Translations: [Migraine without aura, not intractable, without status migrainosus] Onset: 01-23-2023 01-23-2023 Chronic Heart valve disorders (4 sources) Cardiac murmur, unspecified; Translations: [CARDIAC MURMUR UNSPECIFIED] Onset: 11-07-2022 Episodic Malaise and fatigue (2 sources) Fatigue; Translations: [Chronic fatigue, unspecified] Onset: 01-23-2023 01-23-2023 Chronic Menstrual disorders (3 sources) Menorrhagia; Translations: [Excessive and frequent menstruation with regular cycle] Onset: 01-23-2024 05-08-2018 Chronic Miscellaneous mental health disorders (2 sources) Insomnia disorder related to another mental disorder; Translations: [Insomnia due to other mental disorder] Onset: 01-23-2023 01-23-2023 Chronic Mood disorders (2 sources) Recurrent major depressive episodes, moderate ; Translations: [Major depressive disorder, recurrent, moderate] Onset: 01-23-2023 01-23-2023 Chronic Nutritional deficiencies (2 sources) Vitamin D deficiency; Translations: [Vitamin D deficiency, unspecified] Onset: 01-23-2023 01-23-2023 Chronic Osteoarthritis (6 sources) Inflammation of joint of foot; Translations: [Primary osteoarthritis, unspecified ankle and foot] Onset: 09-02-2015 01-23-2023 Chronic Other endocrine disorders (2 sources) Hypoglycemia; Translations: [Hypoglycemia, unspecified] Onset: 01-23-2023 01-23-2023 Chronic Other endocrine disorders (2 sources) Polycystic ovary; Translations: [Polycystic ovarian syndrome] Onset: 01-23-2023 01-23-2023 Chronic Other gastrointestinal disorders (3 sources) Intestinal malabsorption; Translations: [Intestinal malabsorption, unspecified] Onset: 01-23-2024 05-16-2017 Chronic Other gastrointestinal disorders (1 source) H/O: GIT by-pass; Translations: [Bariatric surgery status] 05-16-2017 Episodic Other liver diseases (2 sources) Steatosis of liver; Translations: [Fatty (change of) liver, not elsewhere classified] Onset: 04-26-2023 04-26-2023 Chronic Other nervous system disorders (2 sources) Chronic pain; Translations: [Other chronic pain] Onset: 01-23-2023 01-23-2023 Chronic Other nervous system disorders (1 source) Paresthesia of skin; Translations: [Paresthesia of skin] Onset: 02-13-2018 Episodic Other nutritional; endocrine; and metabolic disorders (4 sources) Morbid obesity; Translations: [Morbid (severe) obesity [...] Onset: 2023 Chronic Other upper respiratory disease (2 sources) Allergic rhinitis; Translations: [Allergic rhinitis, unspecified] Onset: 01-23-2023 01-23-2023 Chronic Residual codes; unclassified (2 sources) Sleep apnea; Translations: [Sleep apnea, unspecified] Onset: 01-23-2023 01-23-2023 Chronic Residual codes; unclassified (1 source) Pain, unspecified; Translations: [Pain, unspecified] Onset: 12-29-2023 Episodic Unclassified (1 source) Auditory hallucinations; Translations: [Auditory hallucinations] Onset: 02-13-2018 Episodic Past or Other Problems Problem Classification Problem Date Documented Da te Episodic/Chronic Deficiency and other anemia (2 sources) Iron deficiency anemia; Translations: [Iron deficiency anemia, unspecified] Onset: 01-23-2023 01-23-2023 Episodic Diabetes mellitus without complication (2 sources) Impaired fasting glycemia; Translations: [Impaired fasting glucose] Onset: 01-23-2023 01-23-2023 Episodic Neoplasms of unspecified nature or uncertain behavior (2 sources) Thrombocytosis; Translations: [Thrombocytosis] Onset: 01-23-2023 01-23-2023 Episodic Nutritional deficiencies (6 sources) Cobalamin deficiency; Translations: [Deficiency of other specified B group vitamins] Onset: 01-23-2024 12-20-2017 Episodic Other connective tissue disease (4 sources) Pain in left foot; Translations: [PAIN IN LEFT FOOT] Onset: 06-27-2022 Episodic Other gastrointestinal disorders (2 sources) History of bypass of stomach; Translations: [Bariatric surgery status] Onset: 12-29-2017 04-26-2023 Episodic Other lower respiratory disease (2 sources) Dyspnea; Translations: [Shortness of breath] Onset: 01-23-2023 01-23-2023 Episodic Other non-traumatic joint disorders (3 sources) Pain in right knee; Translations: [Pain in joint, lower leg] Onset: 01-24-2023 09-25-2023 Episodic Other nutritional; endocrine; and metabolic disorders (2 sources) Body mass index 40+ - severely obese; Translations: [Morbid (severe) obesity due to excess calories] Onset: 02-12-2017 Resolved: 10-31-2023 04-26-2023 Chronic Residual codes; unclassified (2 sources) Edema; Translations: [Edema, unspecified] Onset: 01-23-2023 01-23-2023 Episodic Spondylosis; intervertebral disc disorders; other back problems (3 sources) Low back pain; Translations: [Low back pain, unspecified] Onset: 01-23-2023 01-23-2023 Episodic Viral infection (2 sources) Plantar wart of left foot; Translations: [Plantar wart] Onset: 01-23-2023 01-23-2023 Episodic Results Test Name Value Interpretation Reference Range Facility MR lumbar spine wo rafa MR lumbar spine wo kacy [facility] [place] [place] [address] MRI Report Signed Patient: Marilee Arriaga MR#: [id number] : 1975 Acct:[id number] Age/Sex: 47 / F ADM Date: 09/19/23 Loc: MR Room: Type: [facility] Attending Dr: Simona STOCKTON Copies to: [...] Beckford Jr., D.O.09/19/2023 2:27 PM Dictation Location: [place] [address] Transcribed By: [facility] 09/19/23 1427 Dictated By: Linden Beckford Jr, DO 09/19/23 1412 Signed By: 09/19/23 142 [facility] XR pre/post mri xrayon 09-19 XR pre/post mri xray [facility] Main [place] [address] [place] [address] XRay Report Signed Patient: Marilee Arriaga MR#: [id number] : 1975 Acct:[id number] Age/Sex: 47 / F ADM Date: 09/19/23 Loc: MR Room: Type: [facility] Attending Dr: Simona STOCKTON Copies to: [...] further evaluated by MRI. Impression dictated by: Donna Hayden Jr.OArianna09/19/2023 3:08 PM Dictation Location: [place] [address] Transcribed By: [facility] 09/19/23 1508 Dictated By: Linden Beckford Jr, DO 09/19/23 1507 Signed By: 09/19/23 1508 Normal [facility] ECHOCARDIO M/2D COMPLETEon 0 11-07-2022 ECHOCARDIO M/2D COMPLETE Patient: MARILEE ARRIAGA. Exam Date: 11/07/2022 : 1975 Gender:F Ordering : DR FRANCOISE MARTINEZ Admission #: [id number] Family : Order #: [id number] CLICK HERE TO VIEW EXAM ECHOCARDIOGRAM REPORT [...] Shay Masters M.D. on 11/07/2022 at 19:16 [facility] Coding Summary.on 05-04-2022 Coding Summary. [id number] Gh0bWw+PGh lYWQ+ZU4WLTZsE31grZQchQ1MS9zFQ E5SIXDWPRDCTH0MYO6caLK0HHfvW8A ybiAv DvniiZLrPC87CYp8ENV3uPpuFFjvmC 0ylMCrC0h6NsRvCD43oW17PKpkPCEl IaM4SsJpnrlzpXKg O2icVkJqrCRqIky+PHRhYmxlIHdpZH TaJVftALXcJvKocRzvXZ6cBm3eHZJa LWNvbGxhcHNlOiBj h0qjWPYdPBgfLK0bmBijN3TlaNG1UL Vhb1b6Tf98oQH+ZRJxRMK9zFakCOvd h383XgNqx1ygDAJ7 wHQbPBdxCKP4Q84gp4E4SORhSHZnXQ L1hPQ2bX2pxQyuqsrgT7PmhQLwCdT3 HII3dVLinD9nfBgx pqlvdV1lAjs+W69OAY5FHJRDCN4YXm a3I2NwArbhnGS+YI57JGOmVU78dOLr rOXof8lguZr8FcXg DABiGBZ0zCzyGIxer9LiCBIkX52ypK Aws2S6BEKgdHwlsNNnHgQawXF9bS1t NIxufqhzp1vxcckg Grgdp8krxz34eR98A09hBYxoKILtDT Y2LIRrHPTbcRocwf2zlG6sEw6+IDxj e5ndb0fsbFt3TvTj QYApsgOrdXrgKFC2j7CiBf48A2TkmF nrm3HxAub1cr09dDYzp4Q3gXB4KQkd ONMgdR8oRNziVpT0 ERThDzAtxR34sFKwUPqaDz8uoGndsS muKX7fJRBdxjvaNXAshP1hXTTywVTv aNxoTS1qUILcvuch h933RmAsMQV3KTYchDZrL8XrcB0rIe BgUEXbIWQcY1AsjCToEXtwZ295HQda JmY7UTQrkwKqJ0Aa WTDhnDoyDqY4p5V7Gw9Xc0FrikydFC C1WKaeJEZ6QbQ8GrDbVoM4Z7QmKnx5 TVVkzQvkIE1iL2Nr AJTfxyhukxymkUY7MXMjLXJmdN40nZ NzJFyzBm0nq9H7l026LOHwBROndF81 Vm7tpRcmCTWxkLBE nS8ljckin0udkadjMeUmVZFvXNs7BK b3CJMnlJmuVjUdFIE7FoM2KXR8cIFs aN4moFilccjgyQ2r Oyc+X14xoE8eWWV6QIT1mhmfRSAmfi OzRX58GN03I2GbUcsceRDqwCO+PGRp lqUqrUshCL9vKgFx e2gql9YzIOzlX0AcMFScVGedSnf0SA BsFGM6lEO3kI4bECWiSMjch1J1dIA3 I7BnapXrda0jh0ek IZZvZXsvH55zsXPkm9V2LXRmuEO0TV PgcXdtOxQafS34Plh+ZVSetNmtf5Jo Bjzhv0skb5pgmSl3 PsKyBFOosiNhpRigZDB9e6LgMk20U1 5iVBezRQQbWUTnWNXvNWSzjSgqmh1v vE3cLw3+PGNvbCB3 sMO9wO7qLVUtAjY6SGyxW647QfCrhC ZxVkkne9qwh8sjkSt3IpSlLCAapwXp bOkwWFF5a2CmOv04 L71eWQyrWRGxHZWpSUZhEQCxpPdrxy 8imH1pLw2+OP6cg1xcxu84bG81eKN+ XDEjWRT8mIzmRTqj LZNutX8jOIudEiF3MLTpEeCkqJ30mG CzSHzhUj4gfNgrgTawVI8zEDRvnxkl c997HeIum4bfLCAf lPGjXDinBHL2T28mk6R4EALtBPWfFS S2lTB4tD4knAehbnxjoOZeuNckviVt nXipBNmgOCztW734 OHRfoRrcRmExgTqtcvGjHtMvMQb8K2 HdHjg2RVMxoLwyVZ4wzYWbLLkoEq9i bXgynFgvEX7xRXZj dqykq241UlXnw6qxMPNkiJDzZIenJQ V0O02od1M5JNHeLNMwABE4eMX9mV0r bGlnbjogbGVmdDsg tuTkuLqnIHysAYhiJ426GEJiwFywBw AvpgOqKKBzqGG5TV67ST78dFKiq0I9 gYJ9O9WbFKIfpiah tqtdnKT6FIVxDFRlrA63Bt9tdJayWx 9sIEQtCFO9NUNebCOmK3YjgN5eAoDc YRKiOAGhW5NbkQWf ULenW303LUeuIbQ9JPXtoxAmR5AoJL MucHshTwA6r0H9Ut2ZS0P2PN27LV43 wLVtk8M8jPH9U9Oj KDQhjzvkcpozsMV9MFJzGYFdkG19Ep 8iqOylAy0mKQHzRON6RDSrjHRuL3Dj fT8sXgOyHOSxKDPd A4VgwSMhXMzsA976QOcnMwN6RAWohg LaF1VbFGNrePkgTsQ4o0T2Kd8CGHv9 JM45OZ46dPIfz5P0 yZA1N6BxSUCxibqycofulPV4OKCsMG LasO50Fx3tcYueIg3lWTOcGIH2YVSq qTNsB1NzwI3cSyEb QMIyNBQfP3LwrHEvVJteY003RMnaTq X8RRJykfZwX6XjHBQoiLcdIbI0q0A9 Nc1MYPFrSB05TZC0 mTA5BL42UD35J4HdJcolfATzzEG+PH RhYmxlIHdpZHRoPScxMDAlJyBzdHls EZ3rHy0jYZZsPPPy pQhycHViUeIhv9euRAReCEwsAY8ybQ ztS0RlqTY8AMMel5p8Xg33Y55aK5Am dXA+OQAxvYG4qZI8 nX7fNnJjRbV7BExnA126IyCkuOCbIw tuf5rai5avoXi8GjO1TQTxqfRzoZib DVB4z5RcSk46N77b VEinZQBiDYInRBSjVMTpfPkrfv3lkG 9wIi8+HNYouIV5uLP7hA4qLlPdGsR8 AShaQ362ZaSaoYUo Zssje6phg7vctPe3WiHtWSCyotVxdO agSCN1p6VhVb97Z6IbbIsam4KnUaz9 la67zIYya9M4uAE2 Y8BsQCAtxdrstRFqvHuzCR4xYFVnze giACYrbC9bERUeV9g7LoMnJzN6AQrf B6FtbcZ9LFEajMVz NSibLVQ0R67xh9W2TNWmIQGvMXU1tB C6dH9dmCvsxsrksPVddEtgvsJblLmc NXucUCvqU928KTLb nAyfRDBzgU6fZOGugYZzoTyoHX8zCC CktdltIhGNSMxXVZEUTQ6GRWVOAcFT ON55VN85kZNty0X2 gYA8T0VhFSUiplpxkyuvuDU5QCWiNS QojP94jBYjIGoiXt6vo3E0g890MPEt UNOroQ72Ah4vfBry IPOeqTORgV6mqwnhn5eqhmajVpApOJ MrUAc9PGb3SQHizKhoGcErPST8IjV4 NJY6lDTsvW1tnAvp eurtzY4xSgd+LSGsSwLzHNe2QDtofF Q+MAFeGBQ3gQwrXErgXUOcvD1vHVSi V9y5GlUbFnY9HEbf M9DkCDFfjbjbHn97lM1lCmAbXqE8LI baW4KvzcC4ZUNdnVRsWMrdLXC3P75w y9S1KPUrMLVyUFJ3 qTM2rA8jyWkudwdcdSHnmIdhfwHhxW lcHQneDZoeV966SNLezQfkDrY1EGmc FAMbCT63UH81sVLe o9V1rWM6J0AsWFNktzhyceiiuVF0NP WpCJZveE02rRWbOAjfWe4zi3C4v246 NPLhWMDqeX36Ro4z lCecEWUfmLSPqX9zalmut1aokmjbMl OfDCHuBSf3AOg5PJSmjQjcFnBuXBP1 TwA8TKI7aCIojI0w jAwoycwkkI5iUzq+IfRcVArdSL18GB 31dDQjn4J5lHO7Y7XhJMDcyzdxcbvc wJH8MGTeSEOjpC48 lMAcOYcfMw5sh0T7h136WGWzDCJdiD 13Df8xuMojBOPcgCIWsO0vkbaop6fl cjogIzAwMDAwMDt0 APd8IZCutMhtKzOnTZG9MjW5NTW6yE MoqV5pfDbzgapbdZ6eGln+UmVjdXJy gI8rAN37RH48J8Io PjwvdGFibGU+PHRhYmxlIHdpZHRoPS jiDUAwQxFkaEtoHG5iSz0wUTLgCRVw nGrmfCZdCnRip8dx AZUaHVgySU4bgOgiF7VzgUC5ZXIlf1 e5Bj56U47fH0IvzNZ+EJXytHZ8xYX7 wB4dKtIeEdC2FGth M484CvUxpRQdNupjt5ysl7mrwTo5Mk OoISEoqxNpsWkmCLG8j2PtRh33U06m IHdpZHRoPSIyMCUi YMSuhRlvfj8eoL5zVm2+RVTsgPC7pH V0aB8zIdNdUvL7OOxjD409IyZheSCe JxudN59oE1DxwRA+ NYZdGsw9PPAgtJdzBB0neSEuORxvSs 8lUFZ0FtUaBiGwVJkaQ0VkNHVypykb yeenxWD7ESAoPXVt gF72Fh4rgUluDn7hVWQlVYE6IGQjnF CxE1SpmG9tFxCfZIAaJGChC8MmyTYv SRmoL916UCpwIvS2 IGTkknVeR3JqAWYsuCfcJdI2q2L2Gd 6XzAfxzRXeRH1nVgLwVSn3W6YiFod6 GLHgsBbgUB4wkDPq IZuiYx4svPqzlAwnZB4cOZXbxiysa0 64EnNak2fcZPXcqWTvGOmlIRR0D40m b0F6NSGdOYExOCU6 bMY9oB3luSdtxpfkoFIfaHkyykTijY ljYGuvWDvbQ875DDJwlErjRbXIFqw2 Y2MdFxl3ZBWogYaj QG3aiNDdVXyjSr8bcZtsmLanTF0gRK Izwyoli003TwWhh0kiPZUoaHRdFLbt FYJ7C74ng7A1TWEx MOFaWXJ5pRQ0fY4znUxugxsnwMWrqO cwcnLumQmiAEpkIAvaX944UFAfoOxe Dg0EVdy3Y9IoNye5 BZGjiSwxTT6atOEiKBbpFd5xgBjjvA sqNM4cUUMbbvcsy847JwIbl0nyMXMu jAEdRUmzINL2M51z h8H9VJBqAQOjGNP5bEU8uC1qzHshco jttSMuuGxcqeAqoIjzTHtnIAgjS390 IHRvcDsnPlBheWVy OjwvdGQ+WQ02af26W9OzPhyeGll5NI UyLRB9yOJ2gS0oKEDwKQkwo2L0xZS2 C9HzfrEovh1pk3dk YXBz (more content not included)... [facility] Consent for Treatmenton Consent for Treatment [id number]#1.00CD:127 [facility] Outside Records Officeon Outside Records Office [id number]#1.00CD:127 [facility] Physician Orderon 04-14-2022 Physician Order [id number]#1.00CD:127 [facility] Coding Summary.on 11-12-2021 Coding Summary. CD:[id number]:[id number] Gh0bWw+PGh lYWQ+ZZ9APHXzX12kmWQumA6IT0aKN G0RBJFLGHUQZZ2PYP2tpWH6JCtrN7K ybiAv LnyldWPoJX11WMb2FSM0bHuiBIunkI 1zaBFbD3s1XvHkHI76gL27GJbnXDDe SzY9RfKbmatkeQDy T6ddEaHmcPWyJhp+PHRhYmxlIHdpZH GpQTvgWVKpRgJkbXpbAV6oCp7yNOKh LWNvbGxhcHNlOiBj w6zkREUjQHllAB1nkTglV2IwlUO9YK Zyy0x1Dt70wWQ+OHIgQBS6pScsLGid q206SaAvg4biBIH7 sWHuPFqaDIP1B79pn2Q1QEYdRMUlCD W2tNS0rN6raFuktsenS6MsdWBvZmR9 PXU2tTDxfQ4hhSru sbofzK7uKqp+K09PZX0ISCVYKV8IBl n3Q5WnMwgpoYY+LU15JAAnRP93mTWe rJOxv6dvuDr7LgLv FIWtHVL4bHmdYDoay0YbRWHtY48ohX Yby1M2ATSvtKvesOEjAmJnfQL7mT9w KLoprkfbb2nxmtth Mxqth0kuqo00pZ67U54iTLcoWGOjSS D5JEKcXTIikAwtxc0wtJ5pAm0+IDxj c7etz5javJx4TzRh UKMusqGrvXxcLZG7b1QhZc19S3OhmH ude0BuFcj9oe98iIIyz1L4yEI0BPpu DHMajS6wKJcfIkX7 RBUiAjLywD74uTYrJRbvRz9hnOgnfB fnCA2uYEMccmptNNDxaQ1fAVShrQMy qXdsRE1bKFTrstmq q024GvEvFKZ7VFNbeKFxY1XdeF4oMs PlICKySADsS4AtrTEdOPmcJ391REqs AyD8HPNvlgOrW6Pt KDWjoWgiRhT5l6V1Cq6Fv8LqynskGM Y6DKhyBOXoSbN3UeJdAbK3R0PuOuh0 NWPcpBigYZ2qK7Qc XVKolbmfhcvjiDC5MCGtBAQgzH61hT TuLHyoGb5zn1Q7m584IHGjSFUwpE64 Oh6uaErnTCAsiVNK sQ5ckxudz8ypjqoiNbVtUOKySBa7WI i4PHMynUgcCbEfRTH4TvF9EMS3pNJt fA5aiYaaedmwnG7i Oyc+B58akP7aMWB9BHB7fgbgSLGpzg TiZU33VX48D1KkGqtxoPFbrBN+PGRp tzVrvIjoLD0bGuZu r7tiw6IxAJoiC8RvWNEiOPruIzq8IB CnXOU5eBE8pI3fUNTgXCmnb5O0oUY5 W5PtteLvfd2gw2oj SKUcEJbsK71myNWud4I5XZIosAV3AN RkoUmtUfDxnG79Jov+THArrTkdg4Fr Sggnw6nbt1piuGm0 QtWzKSTqjwLfdJohQNY6g9QiDm03Y0 5mSIuwRHUgBYYhEFOxFJUtmXzntp6c lZ6dFi4+PGNvbCB3 yIL1aJ7lKPLoThB6JDdfY516BqFujJ ZaHvcco1dhi5jirSk0LdIhVRNpqgQc aFolCIG8n0RaHb25 U87tTNqzBNOyFHScMAZpIZPsrTrhis 0leZ8sKj1+VX0pc1ahet30lW09eQA+ KDIrAHD0wUfuRWre WVMabA6kCAjaMnM0TOFzNtIljK15tV EzMIjfAv0wyNksjSlpMG9dPHQxiyyh h250SlEgz8qqBBIm rJTgAPlvEZF1W69km2L4ICHlFWEdRC O1kPS7xS7okBdvdrqwmJUouTpvnaRb lGreYKmdJAgxU849 ZCSxnAfaLdWkbZucmcPnUmZtXAb4C4 CcKml6RHWeuSacXN1mfACeXFmkTk2e tIqmwZgqVS0yGBBr gvmph401XvFal8uqWPDctCTkRAroTA Q2Y66uh2C8ZKVmODKiWYO7uLH7zR2n bGlnbjogbGVmdDsg jwYkkWgcZRxdSEjoP526FKBvlWhgNw ZzrqTaOSCqaAC3JD93KO27kHIhm7Z0 zGG8E5QgIWCqelnc fwnmlCZ6MSCnMZMtgU28Vd0npJhlWn 1fCOHlVDI5WBAynYExB4WayE9gEzPf MFIhFZXbE7HgqJXs GUtxZ852GIkjToH5UVGwjoFgK3IyNA WzhMkqYyM8v3Q8Ep8TD7Y4VB77ZF15 zAZtq9K2sYW3P8Wn UZNaehicoxmuoGN0ZGRvQYFsgW93Ke 1caOvcMe2iPHOgLJR0NXSokOOmE2Hb qC9xXlFsGJOxCQTx Y0BwnKRlVWpqA626JKioJaC8KIMmht DfZ4PlESBpvAgjBwE0n1V9Yb5QTZl2 XO85OD30eHCyr5I5 vXK6Q0TkBJNtklxaixxyqNT6JBXxYF OriH39Cn2zwLehKy5yMXSxPUF7FLGg aQNyI3OdnB2cGvQx THRkGXHzN0XvwHCsGPjjT162OTgrAj B8SPOxyeWcH5WvELSurRxuKgL3t3H3 Su6JTUGpNM62GYB9 vOR2FB94CS81P7ExLbuyxYTvpNZ+PH RhYmxlIHdpZHRoPScxMDAlJyBzdHls ET1xQa5oQRCfQVLd wBmcuEKwGzYdb7qwKRWyBPxxZJ2llU mfR1JpfSD6HCIgg7c1Fs74Z69sK7Oh dXA+CKPwtAM1vZI7 mT4sXeJsBuX7MFxwO881FpAayVDyZv abh9xgp0hdrYy2LaC7YOYrziFioOoa SAR4m9CiZi22M60g QTmaXPXiHJLtQPPiUARmzUujfl2weQ 9wIi8+SGAvwIY5uHI2sW8fPeWmKnI7 CXsqF308NcKqfXEm Zbinm9yoc7ytcKe6KkXpCQXvmkXwyB kaEUI4y5GiCo49E0NbcVnnx0WoNww9 rr63bXRzi1W6hYC8 R4DiMCEzorsxnFFvpFxbTV8tGUBqdi kcEJPvxY4jPTCqX2w6HtSxInC4NPwi Q1XqkiF6CYBoyVDb XSnvTRJ4Q55eu6P9DMJnRGZmLIE9aF H2dM1sxDkdunojeRUkaBwlhwLynDlh CQgwRMtmW157BTNh cAjrJHYfwE3eNNPluCAqqXboKP3sSY DgvwzxMmPEPAdUEXCFDV4FYGAEIoAQ AT22KO91lQYie6C1 rKT3V5BdUCDklnjcnuaksOO7MLDzRM LamM86fCLdUWkpRp1fm8G6p522FZNc ZRTkyB55Kn8diZmr JBPhyMADrI5msnfwy4ynxdpcZdHiPN YmYQa5AUc3ZGMnrUkcRsYvZJT0FjW7 GDE7lLMceN3toFdm praafD6dZuk+TLAnUgDwWJo1TWekfT Q+IEInTDX7lCbtGOgfVCNilV5xBODf X1v0MpUxMiZ3VOgr O9XbDOGgzhzbUm35zS0uCnBtGjR4SP iwB6JnryN2LGUwfIShCNxeXRM2B81a k2S7FKPpXNZjTQR8 kEY9vY8zeKjawntkpWTtwXkfaxWfaH otQMbiLFncT137LJHnjIftDnViVDcm FGCvPM41WQ03vOYz p8H3sTC9F2UrMESekjawofqzsIQ4GJ TcJRGdlF20iCZtVYotEl5tz7U7j510 VJQtFKNsfW95Do6w kWiaCBRtwOYZbY9lvwgbn0trwabvUc OhVQXgHOa7AFw5LMGbeUpzHuUhHFQ2 IjN8YID4pBSquZ4t iTojtklflK1aYhv+IxLxJBgiZL70YQ 16aUGrw7M2vGB6K2EcCZNdwodhxweg fWW7OCUsFWIkhP86 rSMnCBguWx2ug4O4q067UNOrCMAhuZ 90Zx1yvDnsYVVqrFFTwW6ehcebi9vr cjogIzAwMDAwMDt0 GMv8GJDljDevEjDkHJA1TxJ7SWL2kG YgjI6xrTieurhrnE3aUqe+NA3wdypj bgH6MO02XO47R3Vz PjwvdGFibGU+PHRhYmxlIHdpZHRoPS cnQPInWcFvbApbFF6fJp8jJLIjIVHg tDwuzJHoIiHwl4nh CSPrYGzsCZ4wwVxpT8YhtPN7HXBci3 j0Ln86P87mS8UscAM+LVXadLV5qYW7 gS2gBnPwVyZ7AZgy V048VmJccNMsKjvtz9oqo2gkbDr8Bh BzEQZplsManOmhFNA8z0JrIp25N10v IHdpZHRoPSIyMCUi ADBmfSxluw4ziY4zHl0+OFZbgEM5cZ H8vC9mJeCpJuU7CHeuA099OiHccVWn RswiA91xI7OzrGH+ LVIzLaf9ZHLgcRtjCY5vsGIyPBjsTp 0xVFB6UtGfZdRiYYziO2KpIAHwtzzg ekhdbNE5VQAjBNKw sK49Pj4roGxxYp3ySLXrTRQ5EHGinL XzE3EgmZ5cTxOwMPVpOIHeN7HifRDk SDzuK939HTuiTpB9 MOKsoaFqG7GzLUHodDjpWwH6o3G3Ae 0UlQpmhUTvJN5hFjMvRVc1U7SzVoj5 BRRnxZqhJC2mmRCb FAgtNz9hiDuisJqaKK8rBSTsefgtm1 35CoJhq3akKUQubQTeMUkeLTR6E85s w6Y3YJVhSSSePON1 aMC5fY9taUfmuqdxnFLyoAsngrJctM wrYAezCLfeE482IJHdyEdtCbCSIfu0 C4PcLut1SSXgtVnw QA5lbXEfUPcoHi8tpQtmwOqsSZ9aXX Bzxzips063CzIve3qxKJAxnCFtMFdx PUT6C53ge7A2NVLu LSKrXIK3lZD9pZ1qhUliucrdtEVfyN tyfvLgoLkxGDgzLYtcW891IRDiwEvd Lm2XLix5L1TgTtb4 NGRiqOmbEA7bxBMvFImnPq8anSxsgU goTY9vFEBtiehlz048LsQrn9nvYMAi nKXbGEwqQQG8D88x z6O4WRWcXCUeYQL9qHF6rG8qoYmnpt xqhUPkvMzhqpOnqChhASrxZPfpT291 IHRvcDsnPlBheWVy OjwvdGQ+QX89yd70N3XzDtlrCkk1ZL ZhLLK1eVN0kV0nESSvAZvrc7K6sVD8 S7XxhfLuzz7ki2oq YXBz (more content not included)... Normal [facility] Consent for Treatmenton 10-19 Consent for Treatment [id number]#1.00CD:127 Normal [facility] Discharge Instructionson Discharge Instructions [id number]#1.00CD:127 Normal [facility] ED Clinical Summaryon 2021 ED Clinical Summary [address] [address] ED Clinical Summary Person Information Name: MARILEE ARRIAGA [place] Age: 45 Years : 1975 Sex: Female Language: South African PCP: FRANCOISE GAY Marital Status: Single Visit [...] 16:00:59 11/05/2021 16:00:59 11/05/2021 16:00:59 ADDRESS: [address] [facility] [id number] PHYS DOC NOTES: MEDICAL INFORMATION: Prescriptions Given: New Medications [facility]/pharmacy #[id number], [address], [place] [phone], [phone] acetaminophen-hydrocodone (Hurley 325 mg-5 mg oral tablet) 1 Tablets [...] Follow up: With: Address: When: Em Mir [address] [place] [id number] Business (1) In 3 days 11/08/2021 Comments: Return to the emergency room if your pain gets worse or any new symptoms. With: Address: When: FRANCOISE JACOBO [address] [place] [address] [phone] Business (1) In 3 days DIAGNOSIS: 1:Avulsion fracture of left ankle; 2:Sprain of left foot Normal [facility] ED Note-Physicianon 11-06-19 ED Note-Physician Basic [...] and crutches was given. Patient was given Hurley in the emergency room. Will discharge patient home with Hurley and follow-up with Ortho. The OARRS report [...] needed for pain, 10 tab(s), Refill(s) 0, [facility]/pharmacy #[id number], 158, cm, 11/05/21 13:26:00 EDT, Height/Length [...] Foot 3+ Views Left Medications Administered Given Hurley 5/325 Tab, 1 tab(s), Oral Disposition Plan Patient Discharge Condition Stable Discharge Disposition Discharged home Discharge Prescription List Prescriptions Hurley 325 mg-5 mg oral tablet, 1 tab(s), Oral, q6hr, PRN Follow-up With When Contact Information Em Adeola In 3 days 11/08/2021 EDT [address] [place] [address]- Business (1) Additional Instructions: Return to the emergency room if your pain gets worse or any new symptoms. FRANCOISE PEREIARKAM In 3 days [address] [place] [address]- Business (1) Additional Instructions: Patient Education Crutch [...] Tab, 100 mg= 1 tab(s), Oral, Daily Hurley 325 mg-5 mg oral tablet, 1 tab(s), Oral, q6hr, PRN ondansetron 4 mg/5 mL oral solution Prozac 20 mg Cap, 20 mg= 1 cap(s), Oral, Daily Prozac 40 mg Cap, 40 mg= 1 cap(s), Oral, Daily Qvar with Dose Counter 80 mcg/inh inhalation aerosol ranitidine 150 mg Tab, 150 mg= 1 tab(s), Oral, BID SEROquel 100 (more content not included)... Normal [facility] Comment on above: Result Comment: Elec [...] 08/04/2001 Document Revised: 07/20/2018 Document Reviewed: 01/27/2017 [employer] Patient Education ? 2019 [employer] How to Use a Stirrup Ankle [...] (more content not included)... Normal [facility] ED Patient Summaryon 022 ED Patient Summary [place] [id number] Patient Discharge Instructions Person Information Name: MARILEE ARRIAGA Age: 45 Years Arrival Date: 11/05/2021 13:19:01 Discharge Diagnosis: 1:Avulsion fracture of left ankle; 2:Sprain of left foot Primary Care Physician: FRANCOISE GAY Provider Information Primary Provider: Tyler Petersen M.D. Advanced Night Auditor:None The exam and treatment you received in the Emergency Department were for an urgent problem and are not intended as complete care. It is important that you follow up with a doctor, nurse practitioner, or physician?s topographical field assistant for ongoing care. If your symptoms [...] Address: When: Em Bullockcooper [address] [place] [address] Business (1) In 3 days 11/08/2021 Comments: Return to the emergency room if your pain gets worse or any new symptoms. With: Address: When: FRANCOISE PEREIRAKAM [address] [place] [address] [phone] Business (1) In 3 days In the [...] opioids can be used to help relieve mrudvkat-as-whfnuo pain and are often prescribed following a [...] (more content not included)... Normal [facility] XR Ankle 3+ Views Lefton XR [...] MD Transcribed by: KAIDEN Technologist: NO Normal [facility] XR Foot 3+ Views Lefton 10-19 XR Foot 3+ Views Left Exam Date/Time: 11/05/2021 13:50 EDT Reason for Exam: Fall Report Refer to concurrent left ankle radiograph dictation. FINAL REPORT Dictated: 11/05/2021 2:04 pm Rony Barnett MD Signed (Electronic Signature): 11/05/2021 2:04 pm Signed by: Rony Barnett MD Transcribed by: KAIDEN Technologist: Normal [facility] MRI BRAIN W WO CONTRASTon MRI [...] by:SUMANTH Garciaigned by:Margo Mendez MD02/13/18inal result Normal [facility] CNDSon 02-16-2017 CNDS HNO ID: [id number] thor: Mark Anthony (Res) AdenugaService: General SurgeryAuthor Type: ResidentType: Discharge SummariesFiled: 02/16/2017 11:44 AMNote Text:[facility] [place], [place] [id number] or [phone] [facility] O N F I D E N T I A L I N F O R M A T I O N -----[facility]ARD [facility] DOCUMENTDISCHARGE SUMMARYPatient Name: Marilee Buckner Date: 02/13/2017Discharge Date: 02/16/2017Attending Physician: Renée Lopez [facility]abnam[facility]istef[facility] Diagnosis: Morbid obesitySecondary Diagnoses:Patient Active Hospital Problem List: Obesity, Class III, BMI >= 40 (morbid obesity) ([facility]) E66.01 (02/12/2017) Morbid obesity ([facility]) (02/13/2017)Operations During Hospitalization:Laparoscopic Crystal en [...] as needed.Future Appointments:Future AppointmentsDate Time Provider Department [place]02/23/2017 2:30 PM [id number]-GXUXAOCLWRENÉE LUNDBERGBMI GENS A/M BL03/09/2017 11:00 AM [id number]-LIHNZXMYUY, KASEY (PHD) GSPSMN GENS A/M 03/16/2017 12:00 PM [id number] 2 GENBMI GENS A/M BLD04/06/2017 1:45 PM [id number]-ZUYOVIBSNRENÉE LUNDBERG GENBMI GENS A/M BLD05/16/2017 10:30 AM [id number]-WYBCPLISSY TAM GENBMI GENS A/M D05/16/2017 10:30 AM [id number] TAM GENBMI GENS A/M BLDPatient will follow-up in clinic with Renée Lopez MD as scheduledabove, or sooner if the need arises.Electronically SIGNED by Licensed Independent Practitioner: Mark Anthony Jean MD [facility] Glucose POCT (East, [place], [place] A Use Only)on 02-16-2017 Glucose mass conc 105 mg/dL High 65-100 [facility] Comment on above: Performed By: #### G LUPOC ####[facility] [place], [place] [phone] NURSING PROGon 02-16-2017 NURSING PROG HNO ID: [id number] thor: Lilibeth Ortega (Rn) Doroteo Santos: (none)Author Type: Registered NurseType: Nursing Progress NoteFiled: 02/16/2017 11:37 AMNote Text: Nursing Progress NotePatient Name: Marilee OlivierHesham: [id number] Location: [place] [address]/[id number] Da nena Note: Patient has been discharged [...] note was completed by: Lilibeth Santos RN [facility] NURSING PROG HNO ID: [id number] thor: Lilibeth Ortega (Rn) Doroteo Santos: (none)Author Type: Registered NurseType: Nursing Progress NoteFiled: 02/16/2017 10:27 AMNote Text: Nursing Progress NotePatient Name: Marilee OlivierJustinN: [id number] Location: [place] [address]/VC-[id number] Da nena Note: Doing better this am, able to take all of pills and drink theKphos, took a shower, so taking in more po, pain controlled, no emesis, nomore bloody stool, ambulating VSS, on RA, expecting to go home today,continue to monitor.This note was completed by: Lilibeth Santos RN [facility] PROGRESSon 02-16-2017 PROGRESS HNO ID: [id number] thor: Hiram (Res) BrunsService: General SurgeryAuthor Type: ResidentType: Progress NotesFiled: 02/16/2017 8:02 AMNote Text:General Surgery Progress NoteName: Marilee Tinsley SoyirMRN: [id number]: 02/16/2017SUBJECTIVESubjective: No acute events overnight. Last melenotic [...] lb) LMP 01/27/2017 SpO2 94% BMI 62.73 kg/a2Fzyxcc/Output Summary (Last 24 hours) at 02/16/17 0759Last [...] with morbid obesity now POD 3 s/p dzclcsgjapftKxlu-nn-C gastric bypass. Bloody bowel movements resolved with stable H/H.- Phase 2 bariatric diet- Heplock IV- Wean O2- PO pain meds, hold toradol- Will discuss resuming DVT prophylaxis- Encourage incentive spirometry and ambulation- Anticipate discharge today on home Richelle Gordon [facility] Surgery ResidentPager [phone] Normal [facility] Basic Metabolic Panlon 02-15 Anion gap 10 mmol/L Normal 9-18 [facility] Comment on above: Performed By: #### B VIANCA MG1, PHOS ####[place] [id number] Calcium 8.1 mg/dL Low 8.5-10.5 [facility] Comment on above: Performed By: #### B VIANCA MG1, PHOS ####[address] Chloride 104 mmol/L Normal 98-110 [facility] Comment on above: Performed By: #### B VIANCA MG1, PHOS ####[address] CO2 27 mmol/L Normal 23-32 [facility] Comment on above: Performed By: #### B VIANCA MG1, PHOS ####[place] [phone] Creatinine 0.78 mg/dL Normal 0.70-1.40 [facility] Comment on above: Performed By: #### B VIANCA MG1, PHOS ####[place] [phone] eGFR (non-black) mL/min/{1.73_m2} Normal >60 [facility] Comment on above: Performed By: #### B VIANCA MG1, PHOS ####[place] [id number] Glucose mass conc 119 mg/dL High 65-100 [facility] Comment on above: Performed By: #### B VIANCA MG1, PHOS ####[place] [phone] Potassium molar conc 4.2 mmol/L Normal 3.5-5.0 [facility] Comment on above: Performed By: #### B REGGIE COLEY PHOS ####[place] [id number] Sodium 141 mmol/L Normal 132-148 [facility] Comment on above: Performed By: #### B REGGIE COLEY PHOS ####[place] [id number] Urea nitrogen 15 mg/dL Normal 8-25 [facility] Comment on above: Performed By: #### B REGGIE COLEY PHOS ####[place] [phone] CBCon 02-15-2017 Erythrocyte distribution width Auto Ratio (RBC) 12.9 % Normal 11.5-15.0 [facility] Comment on above: Performed By: #### C BC ####[place] [address] Erythrocytes (RBC) 3.63 10*6/uL Low 3.90-5.20 [facility] Comment on above: Performed By: #### C BC ####[address] Hematocrit (HCT) 33.8 % Low 36.0-46.0 [facility] Comment on above: Performed By: #### C BC ####[place] [address] Hemoglobin mass conc (Bld) 10.9 g/dL Low 11.5-15.5 [facility] Comment on above: Performed By: #### C BC ####[place] [id number] MCH 30.0 pG Normal 26.0-34.0 [facility] Comment on above: Performed By: #### C BC ####[place] [id number] MCHC mass conc (RBC) 32.2 g/dL Normal 30.5-36.0 [facility] Comment on above: Performed By: #### C BC ####[phone] MCV 93.1 fL Normal 80.0-100.0 [facility] Comment on above: Performed By: #### C BC ####[phone] Platelet mean volume (PMV) 8.5 fL Low 9.0-12.7 [facility] Comment on above: Performed By: #### C BC ####[place] [id number] Platelets 368 10*3/uL Normal 150-400 [facility] Comment on above: Performed By: #### C BC ####[phone] WBC (Leukocytes) 11.75 10*3/uL High 3.70-11.00 [facility] Comment on above: Performed By: #### C BC ####[phone] CBC and Differentialon 02-15 Abs Baso 0.02 k/uL Normal 0.00-0.10 [facility] Comment on above: Performed By: #### C BCDIF ####[place] [id number] Abs Hubbard 0.97 k/uL High 0.00-0.86 [facility] Comment on above: Performed By: #### C BCDIF ####[phone] Abs Neut 8.11 k/uL High 1.45-7.50 [facility] Comment on above: Performed By: #### C BCDIF ####[place] [phone] Basophils/100 WBC Auto (Bld) 0.1 % Normal [facility] Comment on above: Performed By: #### C BCDIF ####[address] DTYPE Auto Diff Normal [facility] Comment on above: Performed By: #### C BCDIF ####[place] [id number] Eosinophils 0.35 10*3/uL Normal 0.00-0.45 [facility] Comment on above: Performed By: #### C BCDIF ####[place] [id number] Eosinophils/100 leukocytes 2.5 % Normal [facility] Comment on above: Performed By: #### C BCDIF ####[place] [address] Erythrocyte distribution width Auto Ratio (RBC) 13.1 % Normal 11.5-15.0 [facility] Comment on above: Performed By: #### C BCDIF ####[place] [address] Erythrocytes (RBC) 3.51 10*6/uL Low 3.90-5.20 [facility] Comment on above: Performed By: #### C BCDIF ####[place] [id number] Hematocrit (HCT) 32.6 % Low 36.0-46.0 [facility] Comment on above: Performed By: #### C BCDIF ####[place] [address] Hemoglobin mass conc (Bld) 10.7 g/dL Low 11.5-15.5 [facility] Comment on above: Performed By: #### C BCDIF ####[place] [id number] Lymphocytes 4.35 10*3/uL High 1.00-4.00 [facility] Comment on above: Performed By: #### C BCDIF ####[place] [phone] Lymphocytes/100 leukocytes 31.5 % Normal [facility] Comment on above: Performed By: #### C BCDIF ####[place] [phone] MCH 30.5 pG Normal 26.0-34.0 [facility] Comment on above: Performed By: #### C BCDIF ####[place] [id number] MCHC mass conc (RBC) 32.8 g/dL Normal 30.5-36.0 [facility] Comment on above: Performed By: #### C BCDIF ####[place] [phone] MCV 92.9 fL Normal 80.0-100.0 [facility] Comment on above: Performed By: #### C BCDIF ####[place] [phone] Monocytes/100 leukocytes 7.0 % Normal [facility] Comment on above: Performed By: #### C BCDIF ####[place] [phone] Neutrophils/100 WBC Auto (Bld) 58.9 % Normal [facility] Comment on above: Performed By: #### C BCDIF ####[place] [phone] Platelet mean volume (PMV) 8.3 fL Low 9.0-12.7 [facility] Comment on above: Performed By: #### C BCDIF ####[place] [id number] Platelets 391 10*3/uL Normal 150-400 [facility] Comment on above: Performed By: #### C BCDIF ####[place] [id number] WBC (Leukocytes) 13.80 10*3/uL High 3.70-11.00 [facility] Comment on above: Performed By: #### C BCDIF ####[address], [place] [phone] Glucose POCT (East, West, [place] A Use Only)on 02-15-2017 Glucose mass conc 111 mg/dL High 65-100 [facility] Comment on above: Performed By: #### G LUPOC ####[place] [id number] Glucose mass conc 121 mg/dL High 65-100 [facility] Comment on above: Performed By: #### G LUPOC ####[place] [id number] Glucose mass conc 99 mg/dL Normal 65-100 [facility] Comment on above: Performed By: #### G LUPOC ####[place] [phone] Glucose mass conc 116 mg/dL High 65-100 [facility] Comment on above: Performed By: #### G LUPOC ####[place] [id number] Magnesiumon 02-15-2017 Magnesium 2.0 mg/dL Normal 1.7-2.6 [facility] Comment on above: Performed By: #### B VIANCA MG1, CLEOS ####[place] [phone] NURSING PROGon 02-15-2017 NURSING PROG HNO ID: [id number] thor: Lilibeth Ortega (Rn) Racquel Santosice: (none)Author Type: Registered NurseType: Nursing Progress NoteFiled: 02/15/2017 4:15 PMNote Text: Nursing Progress NotePatient Name: Marilee Tinsley SonalN: [id number] Location: [id number] Da nena Note: called to inform that patient had another bloody stool itwas dark red, no change in vital signs HR has remained in 70's, on RA, noincrease in pain, patient is only taking sips of clears otherwiseunchanged , stable, lab orders again @ 1800.This note was completed by: Lilibeth Santos RN [facility] NURSING PROG HNO ID: [id number] thor: Lilibeth Ortega (Rn) Doroteo Santos: (none)Author Type: Registered NurseType: Nursing Progress NoteFiled: 02/15/2017 10:29 AMNote Text: Nursing Progress NotePatient Name: Marilee OlivierJeraldRN: [id number] Location: [facility]/SR-[id number]-52 Da nena Note:Patient states she's feeling ok, just brought up some 'phlegm',( clearbubbles) no emesis, able to keep down 'bites' or sips of broth and tea,given IV phenergan, denies pain, encouraged to continue to ambulate,stable, call light in reach.This note was completed by: Lilibeth Santos RN [facility] NURSING PROG HNO ID: [id number] thor: Liliana GarciaRn) Racquel Sethice: (none)Author Type: Registered NurseType: Nursing Progress NoteFiled: 02/15/2017 5:53 AMNote Text: Nursing Progress NotePatient Name: Marilee OlivierirMRN: [id number] Location: /[id number] Surgery paged [id number] Marilee Arriaga: patient had dark bloody BM. pleaseadvise. Thanks, Liliana [id number] No new ordersThis note was completed by: Liliana Seth RN [facility] PROGRESSon 02-15-2017 PROGRESS HNO ID: [id number] thor: Mark Anthony (Romain) Raghue: General SurgeryAuthor Type: ResidentType: Progress NotesFiled: 02/15/2017 8:25 AMNote Text:General SurgeryProgress notesAdmitted: 02/13/2017OR date: 02/13/2017 Procedure(s) and Anesthesia Type: * LAPAROSCOPIC GASTRIC RESTRICTIVE SURG W/ BYPASS AND CRYSTAL-EN-Y = 40 (morbid obesity) ([facility]) E66.01 (02/12/2017) Morbid obesity (HCC) (02/13/2017)Hold [...] RNF, potential discharge tomorrowPaul MD Ted (PGY 2)[id number] 6PM weekdays and all through weekends: [id number] SNausea and emesis yesterday, improving and PO intake improvingSlept okayDark bloody BMs this AMAmbulating well OTemp (24hrs), Av.7 ?C (98 ?F), Min:36.4 ?C (97.6 ?F), Max:36.9 ?C(98.4 ?F)BP 147/78 Pulse 80 Temp 36.4 ?C (97.6 ?F) (Oral) Resp 16 Ht 154.9cm (5' 1 ) Wt (!) 150.6 kg (332 lb) LMP 01/27/2017 SpO2 99% BMI62.73 kg/h2JAYJCRN: Mild distress as actively nauseated and sitting up with vomitbag, alert and oriented x 3HEENT: NC/AT, EOM's intactRESPIRATORY: Respiratory effort unlaboredCHEST-CVS: HDSABDOMEN: Soft, obese and non distended, non tender, laparoscopic incisionsCDI with glueNEURO: Grossly non-focal02/14 07 - 02/15 0659In: 3622 [PO:300; IV:3322]Out: 2180 [Urine:1850] Normal [facility] PROGRESS HNO ID: [id number] thor: Rneée LopezService: General SurgeryAuthor Type: PhysicianType: Progress NotesFiled: [...] as PO intake improvesStreggie Lopez MD Normal [facility] Phosphoruson 02-15-2017 Phosphate 1.9 mg/dL Low 2.5-4.5 [facility] Comment on above: Performed By: #### B MP, MG1, PHOS ####[facility] [place], [place] [phone] Vital Signs Date Time Vital Sign Value Performing Clinician Faci lity 09-19-2023 09:41-0500 Body height 157.48 cm [facility] 09-19-2023 09:41-0500 Body weight 104.32 kg [facility] Encounters Encounter Date Encounter Type Care Provider Facility Start: 05-21-2024 End: 05-21-2024 Telephone encounter Francoise Jacobo PA Work Phone: [facility] Start: 05-21-2024 ambulatory Jamey Minor acility:[facility] Start: 05-09-2024 End: 05-09-2024 ambulatory FRANCOISE JACOBO Not Available Start: 05-06-2024 End: 05-06-2024 ambulatory Najma Richardson MD Facility: [facility] Start: 02-12-2024 End: 02-12-2024 ambulatory Najma Richardson MD [facility] Start: 01-31-2024 End: 01-31-2024 ambulatory FRANCOISE JACOBO Not Available Start: 01-23-2024 End: 01-23-2024 ambulatory FRANCOISE JACOBO Not Available Start: 01-04-2024 ambulatory [facility] Start: 12-29-2023 ambulatory [facility] Start: 2023 End: 2023 ambulatory [facility] Start: 12-12-2023 End: 12-12-2023 ambulatory GERMAINE BOLIVAR Not Available Start: 12-04-2023 End: 12-04-2023 ambulatory Najma Richardson MD [facility] Start: 11-21-2023 End: 11-21-2023 ambulatory FRANCOISE JACOBO Not Available Start: 10-31-2023 End: 10-31-2023 ambulatory FRANCOISE JACOBO Not Available Start: 10-23-2023 End: 10-23-2023 ambulatory Najma Richardson MD [facility]: [facility] Start: 09-25-2023 Refill Francoise Jacobo PA Work Phone: [facility] Comment on above: Chronic pain of both knees Start: 09-19-2023 End: 09-19-2023 Patient encounter procedure [facility] [place] Work Phone: Start: 09-19-2023 End: 09-19-2023 ambulatory NON STAFF [facility] Work Phone: Start: 08-05-2023 End: 08-05-2023 ambulatory FRANCOISE JACOBO Not Available Start: 07-26-2023 End: 07-26-2023 ambulatory FRANCOISE JACOBO Not Available Start: 07-17-2023 Registered [facility] Start: 06-05-2023 End: 06-05-2023 ambulatory Najma Richardson MD Facility:[facility] [place] Start: 11-07-2022 End: 11-08-[address] FRANCOISE JACOBO Facility: Start: 06-27-2022 End: 06-27-2022 ambulatory SUNSHINE NEWMAN . Facility: Start: 04-27-2022 End: 10-26-2022 ambulatory FRANCOISE JACOBO Facility[facility] Start: 04-22-[address] FRANCOISE JACOBO Facil ity:H1 Start: 11-05-2021 End: 11-05-2021 Emergency department patient visit Tyler Petersen Facility:[facility] Start: 09-18-2018 Patient encounter procedure Ida Weber Facility:[id number] Start: 05-08-2018 Patient encounter procedure Ida Weber Facility:[id number] Start: 02-13-2018 End: 02-16-[address] [facility] Start: 12-19-2017 Patient encounter procedure Ida Weber Facility:[id number] Procedures Date Procedure Procedure Detail Performing Clinician Start: 09-19-2023 MR lumbar spine wo con Start: 09-19-2023 XR pre/post mri xray Start: 02-10-2023 Mammography Francoise Jacobo PA Work Phone: Start: 02-13-2018 Mri brain brain stem w/o w/contrast material FRANCOISE JACOBO 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 Plan of Treatment Date Care Activity Detail Author Start: 08-08-2024 End: 08-08-2024 Patient encounter procedure 08/08/2024 11:30 AM EST Office Visit [facility] [address] [place] [phone] Francoise Jacobo PA [address] [place] [address] [facility] Start: 06-03-2024 End: 06-03-2024 Patient encounter procedure 06/03/2024 1:10 PM EDT Office Visit [facility] [address] [place] [phone] Coy Hung MD [address] [place] [address] [facility] Start: 04-21-2024 Influenza vaccination Influenza Vacc ine (#1) [facility] Start: 02-18-2024 Influenza vaccination Influenza Vacc ine (#1) [facility] Comment on above: Postponed from 04/21 (Patient Refused) Start: 02-11-2024 Screening for malignant neoplasm of breast Mammogram [facility] Start: 10-25-2023 End: 10-25-2023 Patient encounter procedure 10/25/2023 1:00 PM EST Office Visit [facility] [address] [facility] [address] [place] [phone] Francoise Jacobo PA [address] [facility] [address] [place] [address] [facility] Start: 12-14-2007 Screening for malignant neoplasm of cervix [facility] Start: 1998 Screening for malignant neoplasm of cervix Pap Smear [facility] Start: 1977 Screening for malignant neoplasm of colon [facility] Immunizations Immunization Date Immunization Notes Care Provider Fa [facility] 05-30-2021 influenza, injectabl e, quadrivalent, preservative free Francoise MARTINEZ Work Phone: [facility] 05-30-2021 influenza virus vacc ine, unspecified formulation Francoise MARTINEZ Work Phone: [facility] 06-12-2020 influenza, injectabl e, quadrivalent, preservative free Francoise MARTINEZ Work Phone: [facility] 12-16-2018 tetanus toxoid, redu brina diphtheria toxoid, and acellular pertussis vaccine, adsorbed Francoise MARTINEZ Work Phone: [facility] Payers Date Payer Category Payer Self-pay [id number] 2022 Medicaid [place] [employer] [id number] 2022-Present [address] [place] [address] [id number] 2022 Medicaid [id number] 2022 Unknown 2018 Unknown [id number] 2018 Unknown [id number] 1977 Unknown [id number] 2.16840.1.148673.3.579.2.356 1977 Unknown [id number] 2.16840.1.154139.3.579.2.356 1977 Unknown [id number] 2.16840.1.344584.3.579.2.356 1977 Unknown [id number] 2.16840.1.655208.3.579.2.727 1977 Unknown [id number] 2.16840.1.107176.3.579.2.727 1977 Unknown [id number] 2.16.840.1.824186.3.579.2.593 1977 Unknown [id number] 2.16.840.1.868697.3.579.2.593 1977 Unknown [id number] 2.16.840.1.776106.3.579.2.593 1977 Unknown [id number] 2.16.840.1.383793.3.579.2.1286 1977 Unknown [id number] 2.16840.1.542145.3.579.2.1285 1977 Unknown [id number] 2.16840.1.976659.3.579.2.1285 1977 Unknown [id number] 2.16.840.1.983232.3.579.2.1285 1977 Unknown [id number] 2.16840.1.445175.3.579.2.1285 1977 Unknown [id number] 2.16840.1.937015.3.579.2.1285 1977 Unknown [id number] 2.16840.1.521293.3.579.2.1285 1977 Unknown [id number] 2.840.1.859593.3.579.2.1258 1977 Unknown [id number] 2.840.1.869662.3.579.2.1258 1977 Unknown [id number] 2.16840.1.206068.3.579.2.1258 1977 Unknown [id number] 2.16840.1.204933.3.579.2.1258 1977 Unknown [id number] 2.16840.1.175722.3.579.2.1258 1977 Unknown [id number] 2.16840.1.144365.3.579.2.1258 1977 Unknown [id number] 2.16840.1.602886.3.579.2.1258 1977 Unknown [id number] 2.16840.1.475139.3.579.2.1258 1977 Unknown [id number] 2.16840.1.875994.3.579.2. 1977 Unknown [id number] 2.16840.1.763425.3.579.2. 1977 Unknown [id number] 2.16840.1.447900.3.579.2.196 1977 Unknown [id number] 2.16.840.1.686956.3.579.2.196 1977 Unknown [id number] 2.16.840.1.777567.3.579.2.196 1959 Unknown [id number] Unknown [id number] 2.16.840.1.846525.3.579.2.531 Unknown [id number] 2.16.840.1.445251.3.579.2.531 Social History Date Type Detail Facility Tobacco smoking stat us WVIS Unknown if ever smoked [facility] Work Phone: Start: 1975 Sex Assigned At Female F [facility] Start: 09-18-2018 End: 01-23-2023 Tobacco smoking status NHIS Never smoked tobacco (finding) [facility] Start: 01-23-2023 Tobacco use and exposure Smokeless tobacco non-user [facility] Start: 07-26-2023 End: 05-09-2024 Alcohol intake Ex-drinker (finding) [facility] Start: 01-24-2023 End: 07-26-2023 History of Social function [facility] Start: 01-24-2023 End: 07-26-2023 Tobacco use panel [facility] Start: 04-26-2023 Alcohol Comment Caffeine intake: sod a [facility] Start: 1975 Sex Assigned At Not on file [facility] Telephone encounter Note 05-21-2024 Telephone Encounter - MICHELLE Cao - 05/21/2024 8:30 AM EDT Note Date & Type Note Facility 05-21-2024 Telephone encount er Note Called and spoke with Enma, who connected me with pharmacist, Nena. She states there are no claims billed for Imitrex during the time period in 2022 originally given for pt. Needs dates the Imitrex was filled and the pharmacy where it was filled so it can be verified that she took the medication. Filled 12/11/2017, 04/07/2018, 04/07/2020 at [facility] in [place]. Called back and spoke with Sj, who connected me with pharmacistNena. They will look into this and verify the claims and fax new determination to the office. [facility] Note 05-21-2024 Telephone Encounter - MICHELLE Cao - 05/21/2024 8:30 AM EDT Note Date & Type Note Facility 05-21-2024 Miscellaneous Notes Formattin g of this note might be different from the original. Called and spoke with Enma, who connected me with pharmacistNena. She states there are no claims billed for Imitrex during the time period in 2022 originally given for pt. Needs dates the Imitrex was filled and the pharmacy where it was filled so it can be verified that she took the medication. Filled 12/11/2017, 04/07/2018, 04/07/2020 at [facility] in [place]. Called back and spoke with Sj, who connected me with pharmacistNena. They will look into this and verify the claims and fax new determination to the office. documented in this encounter [facility] Telephone encounter Note 09-25-2023 Telephone Encounter [...] into patient's pharmacy. documented in this encounter [facility] Clinical Note 06-27-2022 Note Date & Type [...] authenticated by: EM LÓPEZ Date: 2022-06-27 15:38 [facility] Progress note 06-28-2021 Note Date & Type Note Facility 06-28-2021 Note HNO ID: [id number] Author: Em Fernandez, PhD Service: ? Author Type: Psychologist Type: Progress Notes Filed: 06/28/2021 2:45 PM Note Text: Received mental health records from [facility]. Note from 05/06/21 revealed pt has [...] medical records for scanning. Em Fernandez, psychologist [facility] Evaluation note Note Date & Type Note Facility Evaluation note No assessment information availa ble [facility] Work Phone: Evaluation note Note Date & [...] section and content) DATE CREATED AUTHOR 02/14/2018 [facility] DATE CREATED AUTHOR AUTHOR'S ORGANIZ ATION 02/16/2018 [facility] DATE CREATED AUTHOR AUTHOR'S ORGANIZ ATION 10/09/2018 [facility] DATE CREATED AUTHOR AUTHOR'S ORGANIZ ATION 10/11/2021 [facility] DATE CREATED AUTHOR AUTHOR'S ORGANIZ ATION 10/28/[address] [facility] DATE CREATED AUTHOR AUTHOR'S ORGANIZ ATION 11/13/2022 [facility] DATE CREATED AUTHOR AUTHOR'S ORGANIZ ATION 01/09/2024 [facility] DATE CREATED AUTHOR AUTHOR'S ORGANIZ ATION 05/11/2024 [facility] EP[facility] DATE CREATED AUTHOR AUTHOR'S ORGANIZ ATION 05/17/2024 [facility] DATE CREATED AUTHOR AUTHOR'S ORGANIZ ATION 05/22/2024 [facility] Goals (unrecognized section and [...] 2023 End: September 19, 2023 Simona Szymanski NP-Shannon Attending Provider Active St art: September 19, 2023 End: September 19, 2023 Research Physician Relationship Specialty Start Date End Date Shalini Coffey MD [address] [facility] [address] [place] [address] PCP - General Family Medicine 08/05/23 Research Physician Relationship Specialty Start Date End Date Shalini Coffey MD [address] [facility] [address] [place] [address] PCP - General Family Medicine 08/05/23 Reason [...] BE BASED ON THE PRIMARY CLINICAL RECORDS. [employer] provides no warranty or guarantee of the accuracy or completeness of information in this document.
[2024-05-27 11:03] VITALS: BP 141/89; PULSE 76; TEMP 36.4; O2SAT 98
[2024-05-27 11:35] VITALS: BP 136/76; PULSE 69; O2SAT 96
[2024-05-27 11:36] VITALS: BP 127/73; PULSE 66; O2SAT 95
--- NOTE | 2024-05-27 11:37 | W.PM.PROCNOT ---
Date of procedure: 05/27/24 Pre-op diagnosis: Pain due to bilateral sacroiliitis Post-op diagnosis: same as pre-op Procedure: Procedure: Bilateral sacroiliac joint injection Medications: Bupivacaine 0.25% 3cc, kenalog 40mg x2 After informed consent was obtained, the patient was brought to the medical procedure unit and placed in the prone position, when a timeout was completed verifying correct patient, procedure, site, positioning, implant, and/or special equipment.? The skin overlying the area was prepped and draped in standard sterile fashion using alcohol.? A 25-gauge needle was inserted towards the left sacroiliac joint under direct fluoroscopic imaging.? Needle tip was advanced until the joint was encountered.? We instilled a total of 2 mL of solution.? The same procedure was then completed on the right side.? Postoperatively needles were removed.? The patient tolerated the procedure well without complication.? The patient reported reduction in pain symptoms postoperatively. Anesthesia: Local Surgeon: Najma Richardson Pathology: none sent Condition: stable Disposition: no change
[2024-05-27] MEDS: BUPIVACAINE HCL 0.25% PF 25 MG/10 ML VIAL 4 ML INJ (11:38)
[2024-05-27] MEDS: LIDOCAINE HCL 2% 400 MG/20 ML MDV INJ (11:39)
[2024-05-27] MEDS: IOHEXOL 240 MG/ML - 10 ML VIAL 12 MG INJ (11:39)
[2024-05-27] MEDS: TRIAMCINOLONE ACETONIDE 40 MG/ML VIAL 80 MG INJ (11:39)
== END 2024-05-27 11:41 | disposition home or self-care (01) ==
LOC: SURGOUT 10:08
PROVIDERS: PCP Physician Assistant; Visit Provider Anesthesiology
DX: M46.1 Sacroiliitis, not elsewhere classified (principal)
CPT/HCPCS: 27096; J0665; J3301; Q9966

== ENCOUNTER 2024-05-31 23:08 | Emergency (ER) | payer MEDICAID, SELFPAY ==
[2024-05-31 23:15] VITALS: BP 148/103; PULSE 90; TEMP 36.5; O2SAT 97; BMI 58.2
--- OUTSIDE RECORDS SUMMARY | 2024-05-31 23:15 | XMS_ITS | CCD ---
Author Organization [facility] Care Team Providers Care Medical Aides Teacher Name Role Phone FRANCOISE JACOBO Unavailable Unavailable [...] Unavailable MISC, DR SLOAN Primary Care Unavailable MEDFORD, DR EM Snyder Consulting Unavailable TRENT ., [...] Del Castillo Attending Unavailable Giedraitis , Andrius Jay Attending Unavailable Giedraitis , Andrius Vytautadarsh Attending Unavailable Giedraitis , Andrius Vytautadarsh Attending Unavailable Giedraitis , Andrius Vytautas Attending Unavailable Giedraitis , Andrius Vytautas Attending Unavailable Simona Szymanski Admitting Unavailable NON STAFF Primary Care Unavailable Simona Szymanski Attending Unavailable Jamey Morgan Attending Unavailab le Jamey Morgan Admitting Unavailab le NON STAFF Primary Care Unavailable Allergies Allergy Classification Reported Allergen(s) Allergy Type Date of Onset Reaction(s) Facility (1 source) Cephalexin; Translations: [Keflex] Drug Allergy [facility] Repository (7 sources) Clindamycin; Translations: [clindamycin] Drug Allergy 5 [facility] Repository (8 sources) Codeine; Translations: [codeine] Drug Allergy [facility] Repository (1 source) NSAIDs; Translations: [NSAIDs] Propensity to adverse reactions (disorder) [facility] Repository (5 sources) Penicillins; Translations: [penicillins] Propensity to adverse reactions (disorder) 5 [facility] Repository (1 source) Sulfonamides (Antibiotic); Translations: [sulfa drugs] Propensity to adverse reactions (disorder) [facility] Repository (1 source) alot of ATB's, I dont know names; Translations: [alot of ATB's, I dont know names] Propensity to adverse reactions (disorder) [facility] Repository (1 source) Penicillin Drug Allergy [facility] Repository (1 source) Sulfonamides (Antibiotic) Drug allergy (disorder) [facility] Repository (4 sources) Sulfonamides (Antibiotic); Translations: [SULFA (SULFONAMIDE ANTIBIOTICS)] Allergy to substance [facility] (5 sources) erythromycin base; Translations: [ERYTHROMYCIN BASE] Allergy to substance 7 Rash [facility] (3 sources) Bacitracin / Polymyxin B; Translations: [BACITRACIN-POLYM YXIN B] Drug Allergy 3 [facility] Healthcare Work Phone: (3 sources) Ciprofloxacin; Translations: [CIPROFLOXACIN] Drug Allergy 5 Rash [facility] (3 sources) Erythromycin; Translations: [ERYTHROMYCIN] Drug Allergy 5 Hives [facility] Healthcare (2 sources) Penicillin G Drug Allergy 3 [facility] Healthcare (2 sources) Sulfonamides (Antibiotic) Drug Allergy 5 [facility] (3 sources) Soap; Translations: [SOAP] Allergy to substance 7 Swelling [facility] (1 source) Grass pollen; Translations: [GRASS POLLEN] Propensity to adverse reactions to drug (disorder) 5 [facility] Repository (1 source) SHELLFISH CONTAINING PRODUCTS; Translations: [SHELLFISH CONTAINING PRODUCTS] Propensity to adverse reactions to food (disorder) 5 [facility] Repository (1 source) rizatriptan Drug Allergy 4 Anxiety [facility] Healthcare Work Phone: Medications Current Medications [...] evening. Take with meals. 0 04/25/2023 Active [id number] 200 actuat albuterol 0.09 mg/actuat metered dose [...] once daily cholecalciferol (Vitamin D-3) 250 MCG (93427 UT) capsule Indications: Vitamin D deficiency TAKE 1 CAPSULE BY MOUTH ONCE A DAY AT THE SAME TIME. 100 capsule 3 01/24/2024 Active Start: 02-06-2023 take 1 capsule by mo ut once daily cholecalciferol (Vitamin D-3) 250 MCG (74661 UT) capsule Indications: Vitamin D deficiency Take 1 capsule (250 mcg) by mouth 1 (one) time each day at the same time. 90 capsule 3 02/06/2023 Active Continuous Blood Gluc Receiv er (FreeStyle [place] 2 [place]) device (2 sources) Start: 02-23-2023 Continuous Blo od Gluc Outbound Telemarketer (FreeStyle Samreen 2 [place]) device USE DIRECTED 02/23/2023 Active Start: 02-23-2023 Continuous Blo od Gluc Outbound Telemarketer (FreeStyle Samreen 2 [place]) device USE DIRECTED 0 02/23/2023 Active Continuous Blood Gluc Sensor (FreeStyle [place] 2 Sensor) misc (2 sources) Start: 04-22-2023 [...] sources) Polyene Antifungal Start: 05-06-2024 nystatin (Mycostatin) 974909 UNIT/GM powder Indications: Rash Apply 1 application topically Daily PRN 60 g 2 05/06/2024 Active nystatin (Mycost atin) 383963 UNIT/GM powder Apply 1 application topically in [...] 2018 12:00am take [address] [facility] at bedtime traZODone (Desyrel) 100 MG tablet [...] wo rafa MR lumbar spine wo kacy [facility] [place] [address] MRI Report Signed Patient: Marilee Arriaga MR#: [id number] : 1975 Acct:[id number] Age/Sex: 47 / F ADM Date: 09/19/23 Loc: MR Room: Type: [facility] Attending Dr: Simona STOCKTON Copies to: [...] Beckford Jr., D.O.09/19/2023 2:27 PM Dictation Location: [place] [address] Transcribed By: [facility] 09/19/23 1427 Dictated By: Linden Beckford Jr, DO 09/19/23 1412 Signed By: 09/19/23 142 [facility] XR pre/post mri xrayon 09-19 XR pre/post mri xray [facility] Main [place] [address] [place] [address] XRay Report Signed Patient: Marilee Arriaga MR#: [id number] : 1975 Acct:[id number] Age/Sex: 47 / F ADM Date: 09/19/23 Loc: MR Room: Type: [facility] Attending Dr: Simona STOCKTON Copies to: [...] Donna Hayden Jr.OArianna09/19/2023 3:08 PM Dictation Location: [place] [address] Transcribed By: [facility] 09/19/23 1508 Dictated By: Linden Beckford Jr, DO 09/19/23 1507 Signed By: 09/19/23 1508 Normal [facility] ECHOCARDIO M/2D COMPLETEon 0 11-07-2022 ECHOCARDIO M/2D COMPLETE Patient: MARILEE ARRIAGA. Exam Date: 11/07/2022 : 1975 Gender:F Ordering : DR FRANCOISE MARTINEZ Admission #: [id number] Family : Order #: [id number] CLICK HERE TO VIEW EXAM ECHOCARDIOGRAM REPORT [...] Shay Masters M.D. on 11/07/2022 at 19:16 [facility] Coding Summary.on 05-04-2022 Coding Summary. CD:[id number] Gh0bWw+PGh lYWQ+LA5AQKUxS68bkRUrdW0WB2pXK O2UFJOYNGTMQA4MNN0ooSS6TUzcF9D ybiAv DrybcQByFZ85QFi1MEQ5yOvpQJymvX 0ggBGqQ1y5LqUrTI91sU27NIgyZZXq WlJ4RjShnybgnTHa K4ugXjTyoQYlVsp+PHRhYmxlIHdpZH StMFlbEZJdKeQdgSovPP7eGh9eBOCp LWNvbGxhcHNlOiBj p7ruDDYhMNhnBX3tbTsgS4XmxKO1FJ Dfa4l7Lx52hAK+HMWvQPN2eUayKUdb f579LsQws5nvGYR3 fCXcAKxrQMB6I06en5B0IEWbUMXuVQ M3aDI1uY7asSjvvhmyI0JswTMsMzB3 NYO9rCJgyX3ncCwy pdvfxX1mJsg+S49LWA8ANEZKJA9FEq t7M3JcTecvcNA+BT72AJXxMR38rLBb hBQhx9fqhKg7UqCl PJKtGZB1vErkNRdxp3CyGSGeG16syO Zpz0K1LDVqvZfauXClIvHjmCZ1pD6m RJiakipwu3geonky Virsp8nlum60eL07C86zESytSWAnOF T9KNAzUNAntLidri7oiP7yIt3+IDxj r4zvi4fcgNu7RkYq BPStonEogPlkWNS9i7CvWr25S3OdqM ltw2FyLvq4ac13sXNtd8J8zPF3REud AMVkjX4pRMrnAkN0 RDIxZeNswJ17gSYgSUqjCm9jzCdlbD uzZH7gPAEjadlkBZGkxQ1cEGJbpWIt pOfuQZ9mQAQxlaxy t744VsQqPVE8YLOfcACxD3FauQ6vKe RmHIHnLBNlO8VeoICrTGjaC839UNov DwQ4DDFbknVzP9Gl VSOotNenKwP3u4L0Fb9Gt3VeizpiQA Q0NAntILJ0IsO4EeTbJoP1V7HoSoo5 KPOakOblWW2eV7Ea QDSmvartbpeujWH2EMJxUEWhmM53bN NkSPfuZx1vm1F0y952RNNkJTQxjR50 Sg5whMsiKNUkzKDU rJ7meybme5qpchlkSpRoVNIkXDp8GP j0ARWceCumRwKjKFT1XbV5TWH5hWHl sS3cmPwperbqiS4r Oyc+G26vvT1eZCW4QLZ8qcjvNHOifi TeQL70WT10G0JeBlhhoYCzjBD+PGRp frXvjGffGD4dVbHv w8dce7XnEDquF5YiVPLrFTtyKvj2QE IkNZZ2tMU5lB9oMUWfKVrcz7N9yEM4 R4BgmiXsiy8vk6at YCLcCJroY76dbVWcl6I7ZJIcbEW0WU QudBqhRbMxpG12Pty+OLEqwDddb5Bf Frvrx6ugz7ekfJr8 ApDwLKIysuYgrQwcNII0k8SzTs61S5 7mTCdhQYScXYDsNKHkHFRnmMslfw8p cF7iAg2+PGNvbCB3 hIR7gP6aFIOaNsP1QPqrO460AcLxuA OhSpbrj4lrz2rtmCi6ClBoCORlgbMf wAqpHBN1y5NoVc09 R80qCTpnHCXdGYWzQBTpEREvmQctww 8dzY2iFn0+FX0dd2obtp30rY87pEJ+ XPTiVVN6eXwmPBbv VNOciN4yPTcjAhA2GPNzJwQouH11oB GtGXfoCm9ckEcjnYetAS3gUBBldcci w969ItBtq4tmIPZx fPRoZSkpEQD7Z11mj9V5HPXkSSMdQY K3nZV2rR4hmBkfkfkmeFNhzLzrrkDy lGlxRChuAJjhE481 GELmzAxbDaOosNuaxkZyKgYrURy9I3 DrEbb7GBTkfKvkJC8tiYLsUCyzQs4g uElhvLbzXV8tSDOv xejkh775NsYzg7kvZNXybHHgJUwcKX U5Y41xo4V9MWQgHJCxBNW0dKB5rQ5z bGlnbjogbGVmdDsg wjBcbWjnCHnfLTxuG046WFFupMlvTf DfbeWxPSLrhYL2KF68QD14bJVfo2M1 xOV5I0BxWCQckqxq vwrsiUD0MNHeUVCpiD07Vu2cyKlrEk 8tDZKtEMG9UWJrvLLyC6AndB1sEgQs EZSgKHCzR2XleAKb MEgwG093TAcsFgK7NIGvcbGuT5CnBI VbqQbdDgV9z5L4Zq5AS6J4AM38IX84 pBRtg1E7bSC9S5Du EIMxbxwcpxihzMZ7VENwBZBgtU90Dy 9eoLniCh4oUXBqYAR0RUIhkUGzJ5Gp qA4aZgHsUZOoWRYc U5AlaCKyYHwsN230ZElxQpI2ZVJpjd MgQ1OxBLLqkQwzTaX5p0Q6We7WOEz3 YG21EA19uZYwk6S5 xVZ3W3WjDOSvgtpzmgiuyJH6EXEmBU ZhiA98Hw6mzGjxNq0pZUZnYNL5TJRd wMXsD2FosZ6aRbFr UVRcIXIrF9VdcUCdQLsvO922WTnnIt O2WGBtrtRsM1SfAMOrwRkuJcY4r9T8 Rz1TOGTlSV91YCF0 eDH6SV27NU63K3EuHcauvGUpfSX+PH RhYmxlIHdpZHRoPScxMDAlJyBzdHls OK9lHt8pGMTsAQZu uEvmoBZzXnQsh1dbJLWhDFllAP8wnA cpO5IwtFF2IAKgu7e5Lp95H94fL1Ei dXA+BMAkbLK7zXG9 oE6uYyFeEtQ5BEzoB105CiBdxILmWq raw5hvc0ymlTb3DnR2ACAazjMwyMvp UIU9u6XwRp52M89d GFxoYLNbXBSpAXJjJSNjaBvkwm2dbD 9wIi8+DKSnpJM5cBS1hT5wMfKxMrP6 VOjfV103ZnCisMZg Adavx4nei8inoFf0GnDlRQQjbeBpnJ gqSQP2c3XjSi36X0IpdMynl5XfGgq0 cw88bOKuw0T9bKF7 F7CxBGJpebnpbGVjtIanVC1tZGIsdp huXGClqK2nCKIjA5i5DdFhWbS8BQew C8LlpxZ0EDZiaMKr ZBkeHZT4Z57ed5C3MISuISVtYMN5dS V6uN0udYfvkzxkeAUkcOvcuwEhwDcg HZuhXEcqM576MYXu bIeaJGPtrJ7jQPEqwOSooDdjJS9qDF QjchmrXjLZZEzRBXMUMA8VKTEEEeQJ LD55BE64lBNxy8X1 wLY8Z1YsAPGxxldtdfaopAA5WLXkEX EceL76cEFkYGkpTc8td5J9f000QPCe RERzkW72Fx2tuNii DMZikKPEaS5chzzan0vwydwuSjKhGE YfZHi8PTx0AEPnqFvaOtKyARW7NoH2 UBU0uSKjsD2imPvv dorkuY4fBbh+NISjNtObGIc8MTqdqZ Q+GRKkYFN9jNmfZBauAJRqyY6fQFEp S9l0BhJqAdQ9OUpz Z4ZvWZVxjqmeWy58pO9iQvShSpJ9JV mpT0SzzmX3HCVpsRZnCZmbDZZ3K79t m4I5DAHwLVXwPKX5 hBZ8yZ3brHyfdlryeBLqeVyceqCoeC jmAQaaUBvbR204EMHwkSexOyC7IGti IOYyUP08XX51zYXa o2R0uPG5O9ViQCHeerthrqhfnFM0SC AoTWWwhQ39sMNpOTxuBo6qc9I4z201 BFEdBXUtjD65Pp3f uVdqMGKbnRXUnU7fbrnxa4baaqwtIe JzLYIgDKj5WWt1QDQyyGqdFpZoNNX9 BlI8EZM6zIFpoZ9q vVtbrimzrR5rMyq+LiPkTAfwMS77ZU 58eWCtk3Z0yHT2N5NrAOQmgcnvwqll eFI3DTSkDXFamW95 vPRqGEayVu5wf0N1r002YIKaLBLqoN 01Wl2hwTijXHWpnUHKwU5undpji0jx cjogIzAwMDAwMDt0 SZe3RDTbgXgaFtMpISS6NfF0KBX9uT FhjC3hpUnhrjggcU1lVnl+UmVjdXJy vQ7iPU93EC79I0Gh PjwvdGFibGU+PHRhYmxlIHdpZHRoPS wfTVYuRkGjiAzgKO3hFm0yCZWgUROb mCaldMPoPuFii2ps HBQwYKvaGV1qdHcbW9UvdTH6LXCmp0 q1Rc10I75nN5LtdZF+PHCmzJW9kTE7 xE7kPcXyReS6TKeu Y945GpSieJMtBcvba8utq4pgaKc7Th UsDESefmCkaVcyCXT2x9XmDb99A34q IHdpZHRoPSIyMCUi MMGixActhc4kmP2cTt2+ZWJgcPS5mD U1uY4oVfPaPjH8NMpgH841KgUnmYFj UyrfH27qH9AueAS+ IOFoHei8UTIfcTdcYP1veLXuYBqjYt 5iDDP6RbRySgGvHFfwU3BmBSJcmuhn djsakWK1FCDpHCAi kU79Of0icCnoOj6qKLYbTTZ3OJMygM KxB5ExcC6tCzWaEKVfOTLdB5SenKYh VSunT917GOnbOfB1 DPOrslWeB7FzRTRxkDxlPpX4k1U4Au 7LkXsldRIfNT9oHlAkTIk9X5YqZfq3 CQGesUyuND3eeTBh BJhxLd6bqIyhgHygSG1vGPMmnzdjy6 02JzEgb3akAQAlcATbWZruQHV7F38z y0F3EYTjXSWoEYP0 aWK9wM0xpQofzwmcuUMajNfuimUmaC ixNLitCLlfL049KFTzhVxiTtBZGje6 L0LqNut9TWDjfQzp WY1sgMNyNGfaVk4tySimmEivPU2aIX Yiykvrs831HdRna4jsORAgmTJmWGeh UXY3W47rh5E7MFWk OLQrNMO3eWX5eI2vuSpeupxppODwqA yinaYkxOjwOXxhPZmzD146ZQAqtZrp Im1GIej8Q1SwDfc1 QHBtpMbvQA1wqAPqRXscGb8dbTllkY aeXI0kSBNmxyqcx210OaZam5brNGVv mVAiIMynDDL2B58i q2I9BPOcLZRwEHJ4kHS7yJ4yrWotub oclZYuiYkaiqWvsQubWRkvSLjuT948 IHRvcDsnPlBheWVy OjwvdGQ+GC96ib84U2OaIoxbWse3MU WrNQQ7mTK0qE5kDROrUCcsl1K5pAE6 T7JsvrYigr0lz4qf YXBz (more content not included)... [facility] Consent for Treatmenton Consent for Treatment [id number]#1.00CD:127 [facility] Outside Records Officeon Outside Records Office [id number]#1.00CD:127 [facility] Physician Orderon 04-14-2022 Physician Order [id number]#1.00CD:127 [facility] Coding Summary.on 11-12-2021 Coding Summary. CD:[id number] Gh0bWw+PGh lYWQ+CZ9QHEYjZ60zoBUcsX9HO7bQV X0XXRLMUJXITW4STF9raDL2QZnbM9R ybiAv FqujtBGwQP77SCe8VLT2oPxuJQnicO 6njMNnS1r1KrHkKB60kZ49QSrrFTPx YkK0BuZckkjsnRIn U1jlMeCecBMkWtg+PHRhYmxlIHdpZH XzJUmeCLTwOyXxcOhuJP9kZg0eIAKu LWNvbGxhcHNlOiBj b2rdRIEfSWulXK1iwNxaB8JkpJU2EE Cmb2c1Ln17kQV+CRKyLTO2gLmoZYav f354BrMaz2sdQWJ6 uQDrDZehBIL5P48ow2F4EKCmXABmPJ B6cFK6wX7hhEtelhhmB1JikUIuGhV7 EXU3gMPnpF8ilEsk rolawV5jBzk+L03YGK9KIIENFY2YQn r1X2KxNbmnoEO+EA60ZAYzLP95rXVk jDUvf1smdDg0RhCy VSTlTCT0jNvsTUbom6XlHYFnH43dsN Tkj2P8YQKinYehoOWsWmCjaQH1yT2p KDhvnblik5wqhdas Lbdlo9vxcz23iF80E26jGGfzWPKpCN G0HJLlYZPlhEgtju7nuN8vDh2+IDxj v7udl0jsrAk0WuFv ADLtzbVacIiqAQF9f5XyAs07E5EhmI izd4XiKrj2ib43cXTgb3S4wJD9WWbq IYKraR6jSPugGnC5 DRBuOoKmqC47aAPgZIxjAu9kwCocvB doTK4iOFWmvgyiMNJwaH3xMHIciTQm jTykOK5kQDJjgsad w994XwBqYOC4ALEoxDSwK0XzjI7oCh FkBQUnLZPmD6JebEAoNYobT370LPbl IsS4JPSqxgQgM3Lc XDNbvOmnTiS2z6X5Um2Kq7JnkamtZC H0RXigVOPmAfP3FjDbPwM0D0JaXxj6 NQPylJvhCA0xS4Fd QOKrepfaumvtwDQ3BPZmHTHhmV70oC GoMVlcSd4kg8F8h392STIwQWFaxW47 Eh5haVkjDYArjHOF cH7zkvmba3fnpylzAhEsYZNfUGi0NI t4HSOicHrfImLgBHY4YrH5XPW6wJYq zG9ppXcuiknrgA9y Oyc+B05qyG5eMJC5HIL2trmcPZJieo RwTY66MI63N4LcKojmxYZghZP+PGRp rnQhcXaaLS2dPfJd r4gcb4HlIVnfU7WfLISeINwwEfv9RF FeSYK4wSW6sO9nGEQqPJybf0V7lCK1 H1FpgkWnny2go9hw ZHEnKHyrG13pmXPgl6I9MAYmiMF0LC AvzOfxPqOlvW58Tno+QCYckCega1Lg Zvwvl9ijp3jotUe1 RwVqFKPardAsmGmwZFD1f9ZzPo98H6 0uIXobQJPvEJUjSDJpLFZbrJfvav3k gY0qXe2+PGNvbCB3 iAJ9cM9sAWDpJvY4QEfsO492GyPxcL LjFvlsd7zsv8xtwUw6CxTvBQTepmMa aQqeVWR3m9CyWu78 R64jDNruDGVpWNNqHNDpLGZbrFcrfh 8zgB0qGm7+JB9zj7wbpb53yW28nBD+ POCoPDA4aXekZUiq ULQurJ2nYFkqFeF9DWFfSxFfqF06hK ZmKSutUa2hxGsgaGgwZS8kEQMnyasg o223PzBcp7jnQSJu xFCdJFnwMBT1G16sa2P4AHFcCHGiBF N0mLD5fF4tiIaxfbpokFYlmWsgfdXg bZpjKUuyKYmqV788 TZRjeHfcBdLbyGqgnvMtZiLjZFb6K9 FoMxt6VKIblOynPZ2uhUDkFVacZa6l uRzfkMotCN3pFHAq aepnq942HqHcw0yhLLJcrGCgOTofZB G0E09xs7F9HEAiAEBlZSB6wEJ8gM2m bGlnbjogbGVmdDsg auCjcUufMHviUZypI309GODlpDroTf LxqvFlNGQcjHX2CM93UR58iCZfh8W5 nPP9M5JjMAIqcepx mehghCL7EDExFOUrsX27Ln2mmVohJb 6yUNSiABN8OBCxmNQbR1PkuI0sNrSc EKDqKKKmQ7JulBMy WXhhT938HPhzUjC7ORGmssSpM4OySI UafLzsRbK4q7O3Pu7LD8C7HJ65QT58 kRPuy9L7bXJ3B9Ua NHLieclxlumfcXO4HKXeHABsyA58Ir 2jgAhbJq0rCAJcBYD8ZPPiwNCnK1Vv rE8mLmMlYEUrIKAq C4FxhOUuJZplC485PLgfGkT4BVSqud PgJ0XzLOSgtRawYnO6u3P7Aj8SYNz4 JC25YQ06mDEnt5M1 lWI6W4RuKLYpygmlpycuoZR0HVThZU GwuF27Za6uvHxpBu7qEJTdDFB0NVAw eGPjD4QvzI0eHoTe NIOvHHIfV1AnoWJnHCipR447HQvyUu D7FDZkrdYbR4SkMDJvhDilAgV3w6X6 Vh0JJVTrOQ75NTY9 kBD0SH18UO01H8QjIkwooUAzcWN+PH RhYmxlIHdpZHRoPScxMDAlJyBzdHls WF4rBy6zMZZgJMJy gWfivKMlAnQzw8vfIQPuFXwhXI4oaT hyW4YpbNN7ZEGrm1l9Gk27M45xH9My dXA+ENBcwCH6zXB4 zA7yFsOoBcJ3OHvbP071KjRwqLNsPn dqc9vln4suaXq3FvU7KRIhizTfrHlp GAV1m0UvOb92N01u VGjePSKwMUUnCXKcCLKdlChziz1sqH 9wIi8+IEXpqEV7wHD9pA8eMeXbOgT0 QTlkN950KxQtcSAl Pmvuu1wwa3xoiRq0VkOiJVNvdfUprM rjHSZ7l7JyOf61C4BwpGyzk9HvLjl2 ni74uPPfy0V1pUL9 H6EbMGMwjgwkaCJlyMrnVN3iIOBhpr bzUWLlxT4nYYHxD2d9YkYxRoB3APra H2MlquQ7VJQwnYZc LUwqVQV8X83cn8J5VZMiAVLsVIN0oL L8rP8ybVyuojialWSuzTernrPrhByz TUhoUIglA667VPOj lAutEQZxoD7iEGLdwVFgdNqdBR8yLH LcwryfPzYPBOdOGRXCHT2WQXGCOzHQ DG20UD43vEVna1I7 rRT5F4TeMCGfpduxdlnhrVN2TEKtEI QsjR13sIHuSQhsZr0hg7I0f097EVLy ORUhhW42Dp6beFta UPExfHWFpA0vkkyzb3exfxsiCyVyJM IcOMp2NGr8XEZgqQeoOgEoVBT2NoU9 IBH1jPJlmW5cnOuq hgbmxW9rPqo+BSHuTgNlFJm5PDsaqO Q+RURjRKQ6yWheOXfeKJBqaP0nHQWb U6u7TgGwWrN3PGco W7SuBWJclidkLj02fZ3fYlJoYfO6TI qvP8LlrpS2GDAlbEGxQKdyNJK4E04m g4O0USLjEPJnKQZ4 dAT6oS5bcJnyjxswhDCzkKqrnvHmjD luVMhtXGtvT472TAMluPpbIiOiQGhp FFExLR05IF65gOPs n4N4xUX9O5RtXGRueyajxjrnaUL8FW TyKOMlrB65aCMoNZzdPi6wl4O4w089 OMNtABUpbC45Dm9b dHjgAWHilFLKzA2mhfvys2yysxazCq IhLBVmQMv0MLd2PEOgoQmaEjGbRNF3 RaE6ZVG6zAAypW0d pVkersanmG6xJee+WgTcJIzoQY74QU 38rJDrw4T4eBA3B1GrLHIpzunuceiy uSD8WMZxOFNslA40 oXCyECbnFh1pe0L3e470CLYoKLRanB 26Qq9nqFdiSKXnxTHBwY3hmgivf2su cjogIzAwMDAwMDt0 RUg1WLZabLzwMzSaHMJ8YaQ6YOT0dR IxqX4zsFlpjmcacR6bQby+KL2acrhw cnM0HT40ZC32O6Mh PjwvdGFibGU+PHRhYmxlIHdpZHRoPS mdDMPxNjLldTymZZ1aZg7rDQTvFSNr iJvqvXNgHcEja7zj FDUzPTbcCV1usRcjY1EeiPF9ELTfd7 k7Jw81N81iI6RzlWQ+BRSwcSD9rJI6 nQ7nTvEgGuP7LSax L747WbPcsLIeSkswp9edi6pvmXo9Ro KxJVNtsmExrQbtWGC7w5RhZq83U40a IHdpZHRoPSIyMCUi JRGshZrwix4ttB5bIl8+PJVtyJV6tZ Q3dI4nEfEhMlP5IEdzS357EdFxpEJk LwzaE77dX8IxzKB+ BLRvMpd5DBSgbDlzCL0bgRZqUDnoIp 4iPXE0ImGmFxQjKPnhM5WsQBNizjvh fpovdZQ5JLRuYDFi cC85Aa7spYjtBo7jAOEuYCY1NCOtpS SuO9YjgT9qDbGfAEVcOQGbK1FeaSQu AHyhJ914EOjyXjC4 NTTqdaKnU1QpHZTfjIavHaF1w1C2Tl 5YfAzqiPPxIX3vYuMxCXu8P2KaYal6 TWAbdOllIA4brNZw OEeyAm1ljWbkuLwcJF2tWZUtlntke4 96MuOhr0ehRFZpsSFpHYodPWM8A11i r0J5QUOyRTDuGBM8 mXT5qX1dcMbrvqnskTZalTegubBriH xvNVduEIxcX468ZVNffLxbPyOJLqz8 W6HrUjb7FHDjnUlu NM6xhASbSBllRq7owOwalOuuYC3gUY Chyokua133JnUfb3dxLZGgiOOdXHmh OKF0L68bo8D5YHUm LXSkHVO2pTN6kG3fhLwurnujwGVsmM dumgSfvEgmHJccMGprV009MEJojHix Zo3NOha3S1UvNum9 RKSmsExbTH1vfTKdVKspYc3oiLzadV eiXQ7mFSCcuxnce631JyLsd9fuGEZw eWLzIBitWMY6U39i z7Q8OGXsXRZeUUK7hVY9xR9rtRerfr kebEAzzJmmyuKyuEmzXVusKShxE890 IHRvcDsnPlBheWVy OjwvdGQ+XA35ng33K4LjNkrlUcr3OY VxBSR3nXG8eC3gQZOsSZmez2M2iPI5 F7ZfpaXsut0fm9zd YXBz (more content not included)... Normal [facility] Consent for Treatmenton 10-19 Consent for Treatment [id number]#[id number]:127 Normal [facility] Discharge Instructionson Discharge Instructions [id number]#[id number]:127 Normal [facility] ED Clinical Summaryon 2021 ED Clinical Summary [address] [address] ED Clinical Summary Person Information Name: MARILEE ARRIAGA [place] Age: 45 Years : 1975 Sex: Female Language: Mozambican PCP: FRANCOISE GAY Marital Status: Single Visit [...] 16:00:59 11/05/2021 16:00:59 11/05/2021 16:00:59 AD[address]: [address] [facility] [id number] PHYS DOC NOTES: MEDICAL INFORMATION: Prescriptions Given: New Medications [facility]/pharmacy #[id number], [address] [place], [place] [id number], [phone] acetaminophen-hydrocodone ([place] 325 mg-5 mg oral tablet) 1 Tablets [...] Follow up: With: Address: When: Em Mir [address] [place] [id number] Business (1) In 3 days 11/08/2021 Comments: Return to the emergency room if your pain gets worse or any new symptoms. With: Address: When: FRANCOISE JACOBO [address] [place] [address] [phone] Business (1) In 3 days DIAGNOSIS: 1:Avulsion fracture of left ankle; 2:Sprain of left foot Normal [facility] ED Note-Physicianon 11-06-19 ED Note-Physician [...] and crutches was given. Patient was given [place] in the emergency room. Will discharge patient home with [place] and follow-up with Ortho. The OARRS report [...] needed for pain, 10 tab(s), Refill(s) 0, [facility]/pharmacy #[id number], 158, cm, 11/05/21 13:26:00 EDT, Height/Length [...] Foot 3+ Views Left Medications Administered Given [place] 5/325 Tab, 1 tab(s), Oral Disposition Plan Patient Discharge Condition Stable Discharge Disposition Discharged home Discharge Prescription List Prescriptions [place] 325 mg-5 mg oral tablet, 1 tab(s), Oral, q6hr, PRN Follow-up With When Contact Information Em Adeola In 3 days 11/08/2021 EDT [address] [place] [address]- Business (1) Additional Instructions: Return to the emergency room if your pain gets worse or any new symptoms. FRANCOISE PEREIRAKAM In 3 days [address] [place] [address]- Business (1) Additional Instructions: Patient Education Crutch [...] Tab, 100 mg= 1 tab(s), Oral, Daily [place] 325 mg-5 mg oral tablet, 1 tab(s), Oral, q6hr, PRN ondansetron 4 mg/5 mL oral solution Prozac 20 mg Cap, 20 mg= 1 cap(s), Oral, Daily Prozac 40 mg Cap, 40 mg= 1 cap(s), Oral, Daily Qvar with Dose Counter 80 mcg/inh inhalation aerosol ranitidine 150 mg Tab, 150 mg= 1 tab(s), Oral, BID SEROquel 100 (more content not included)... Normal [facility] Comment on above: Result Comment: [...] 08/04/2001 Document Revised: 07/20/2018 Document Reviewed: 01/27/2017 [employer] Patient Education ? 2019 [employer] How to Use a Stirrup Ankle [...] the bra (more content not included)... Normal [facility] ED Patient Summaryon 022 ED Patient Summary [place] [id number] Patient Discharge Instructions Person Information Name: MARILEE ARRIAGA Age: 45 Years Arrival Date: 11/05/2021 13:19:01 Discharge Diagnosis: 1:Avulsion fracture of left ankle; 2:Sprain of left foot Primary Care Physician: FRANCOISE GAY Provider Information Primary Provider: Tyler Petersen M.D. Advanced Dental Practice Manager:None The exam and treatment you received in the Emergency Department were for an urgent problem and are not intended as complete care. It is important that you follow up with a doctor, nurse practitioner, or physician?s administrative assistant front desk for ongoing care. If your symptoms become [...] Instructions: With: Address: When: Em Bullockcooper [address] [place] [address] Business (1) In 3 days 11/08/2021 Comments: Return to the emergency room if your pain gets worse or any new symptoms. With: Address: When: FRANCOISE PEREIRAKAM [address] [place] [address] [phone] Business (1) In 3 days In the [...] opioids can be used to help relieve bmwebljh-cu-gvbjjg pain and are often prescribed following a [...] Administration (www.fd (more content not included)... Normal [facility] XR Ankle 3+ Views Lefton [...] MD Transcribed by: KAIDEN Technologist: NO Normal [facility] XR Foot 3+ Views Lefton 10-19 XR Foot 3+ Views Left Exam Date/Time: 11/05/2021 13:50 EDT Reason for Exam: Fall Report Refer to concurrent left ankle radiograph dictation. FINAL REPORT Dictated: 11/05/2021 2:04 pm Rony Barnett MD Signed (Electronic Signature): 11/05/2021 2:04 pm Signed by: Rony Barnett MD Transcribed by: KAIDEN Technologist: Normal [facility] MRI BRAIN W WO CONTRASTon [...] Garciaigned by:Margo Mendez MD02/13/18inal result Normal [facility] CNDSon 02-16-2017 CNDS HNO ID: [id number] thor: Mark Anthony (Res) AdenugaService: General SurgeryAuthor Type: ResidentType: Discharge SummariesFiled: 02/16/2017 11:44 AMNote Text:[facility] [place], [place] [id number] or [phone] [facility] O N F I D E N T I A L I N F O R M A T I O N -----STANDARD [facility] DOCUMENTDISCHARGE SUMMARYPatient Name: Marilee Buckner Date: 02/13/2017Discharge Date: 02/16/2017Attending Physician: Renée Lopez [facility]ITAL[facility]abnam[facility]istef[facility] Diagnosis: Morbid obesitySecondary Diagnoses:Patient Active Hospital Problem List: Obesity, Class III, BMI >= 40 (morbid obesity) ([facility]) E66.01 (02/12/2017) Morbid obesity ([facility]) (02/13/2017)Operations During Hospitalization:Laparoscopic Crystal en [...] as needed.Future Appointments:Future AppointmentsDate Time Provider Department Rhodhiss02/23/2017 2:30 PM [id number]-PYUVGKMDMRENÉE LUNDBERGBMI GENS A/M BL03/09/2017 11:00 AM [id number], KASEY (PHD) GSPSMN GENS A/M 03/16/2017 12:00 PM [id number] 2 GENBMI GENS A/M BLD04/06/2017 1:45 PM [id number]-COXGMRAEERENÉE LUNDBERG GENBMI GENS A/M BLD05/16/2017 10:30 AM [id number] TAM GENBMI GENS A/M D05/16/2017 10:30 AM [id number] TAM GENBMI GENS A/M BLDPatient will follow-up in clinic with Renée Lopez MD as scheduledabove, or sooner if the need arises.Electronically SIGNED by Licensed Independent Practitioner: Mark Anthony Jean MD [facility] Glucose POCT (East, [place], [place] A Use Only)on 02-16-2017 Glucose mass conc 105 mg/dL High 65-100 [facility] Comment on above: Performed By: #### G LUPOC ####[facility] [place], [place] [phone] NURSING PROGon 02-16-2017 NURSING PROG HNO ID: [id number] thor: Lilibeth Ortega (Rn) Doroteo Santos: (none)Author Type: Registered NurseType: Nursing Progress NoteFiled: 02/16/2017 11:37 AMNote Text: Nursing Progress NotePatient Name: Marilee OlivierHesham: [id number] Location: [place] [address]/[id number] Da nena Note: Patient has been discharged [...] note was completed by: Lilibeth Santos RN [facility] NURSING PROG HNO ID: [id number] thor: Lilibeth Ortega (Rn) Doroteo Santos: (none)Author Type: Registered NurseType: Nursing Progress NoteFiled: 02/16/2017 10:27 AMNote Text: Nursing Progress NotePatient Name: Marilee OlivierJustinN: [id number] Location: [place] [address]/[id number] Da nena Note: Doing better this am, able to take all of pills and drink theKphos, took a shower, so taking in more po, pain controlled, no emesis, nomore bloody stool, ambulating VSS, on RA, expecting to go home today,continue to monitor.This note was completed by: Lilbieth Santos RN [facility] PROGRESSon 02-16-2017 PROGRESS HNO ID: [id number] thor: Hiram (Res) BrunsService: General SurgeryAuthor Type: ResidentType: Progress NotesFiled: 02/16/2017 8:02 AMNote Text:General Surgery Progress NoteName: Marilee Tinsley SoyirMRN: [id number]: 02/16/2017SUBJECTIVESubjective: No acute events overnight. Last melenotic [...] lb) LMP 01/27/2017 SpO2 94% BMI 62.73 kg/k9Ceaouh/Output Summary (Last 24 hours) at 02/16/17 0759Last [...] with morbid obesity now POD 3 s/p [id number]-es-A gastric bypass. Bloody bowel movements resolved with stable H/H.- Phase 2 bariatric diet- Heplock IV- Wean O2- PO pain meds, hold toradol- Will discuss resuming DVT prophylaxis- Encourage incentive spirometry and ambulation- Anticipate discharge today on home Richelle Gordon [facility] ResidentPager [phone] Normal [facility] Basic Metabolic Panlon 02-15 Anion gap 10 mmol/L Normal 9-18 [facility] Comment on above: Performed By: #### B VIANCA MG1, PHOS ####[place] [id number] Calcium 8.1 mg/dL Low 8.5-10.5 [facility] Comment on above: Performed By: #### B VIANCA MG1, PHOS ####[address] Chloride 104 mmol/L Normal 98-110 [facility] Comment on above: Performed By: #### B VIANCA MG1, PHOS ####[address] CO2 27 mmol/L Normal 23-32 [facility] Comment on above: Performed By: #### B VIANCA MG1, PHOS ####[place] [id number] Creatinine 0.78 mg/dL Normal 0.70-1.40 [facility] Comment on above: Performed By: #### B VIANCA MG1, PHOS ####[place] [id number] eGFR (non-black) mL/min/{1.73_m2} Normal >60 [facility] Comment on above: Performed By: #### B VIANCA MG1, PHOS ####[place] [id number] Glucose mass conc 119 mg/dL High 65-100 [facility] Comment on above: Performed By: #### B VIANCA MG1, PHOS ####[place] [phone] Potassium molar conc 4.2 mmol/L Normal 3.5-5.0 [facility] Comment on above: Performed By: #### B REGGIE COLEY PHOS ####[place] [phone] Sodium 141 mmol/L Normal 132-148 [facility] Comment on above: Performed By: #### B REGGIE COLEY PHOS ####[place] [id number] Urea nitrogen 15 mg/dL Normal 8-25 [facility] Comment on above: Performed By: #### B REGGIE COLEY PHOS ####[place] [phone] CBCon 02-15-2017 Erythrocyte distribution width Auto Ratio (RBC) 12.9 % Normal 11.5-15.0 [facility] Comment on above: Performed By: #### C BC ####[place] [phone] Erythrocytes (RBC) 3.63 10*6/uL Low 3.90-5.20 [facility] Comment on above: Performed By: #### C BC ####[address] Hematocrit (HCT) 33.8 % Low 36.0-46.0 [facility] Comment on above: Performed By: #### C BC ####[place] [phone] Hemoglobin mass conc (Bld) 10.9 g/dL Low 11.5-15.5 [facility] Comment on above: Performed By: #### C BC ####[place] [phone] MCH 30.0 pG Normal 26.0-34.0 [facility] Comment on above: Performed By: #### C BC ####[place] [phone] MCHC mass conc (RBC) 32.2 g/dL Normal 30.5-36.0 [facility] Comment on above: Performed By: #### C BC ####[phone] MCV 93.1 fL Normal 80.0-100.0 [facility] Comment on above: Performed By: #### C BC ####[phone] Platelet mean volume (PMV) 8.5 fL Low 9.0-12.7 [facility] Comment on above: Performed By: #### C BC ####[place] [phone] Platelets 368 10*3/uL Normal 150-400 [facility] Comment on above: Performed By: #### C BC ####[phone] WBC (Leukocytes) 11.75 10*3/uL High 3.70-11.00 [facility] Comment on above: Performed By: #### C BC ####[phone] CBC and Differentialon 02-15 Abs Baso 0.02 k/uL Normal 0.00-0.10 [facility] Comment on above: Performed By: #### C BCDIF ####[place] [phone] Abs [place] 0.97 k/uL High 0.00-0.86 [facility] Comment on above: Performed By: #### C BCDIF ####[phone] Abs Neut 8.11 k/uL High 1.45-7.50 [facility] Comment on above: Performed By: #### C BCDIF ####[place] [phone] Basophils/100 WBC Auto (Bld) 0.1 % Normal [facility] Comment on above: Performed By: #### C BCDIF ####[address] DTYPE Auto Diff Normal [facility] Comment on above: Performed By: #### C BCDIF ####[place] [phone] Eosinophils 0.35 10*3/uL Normal 0.00-0.45 [facility] Comment on above: Performed By: #### C BCDIF ####[place] [phone] Eosinophils/100 leukocytes 2.5 % Normal [facility] Comment on above: Performed By: #### C BCDIF ####[place] [address] Erythrocyte distribution width Auto Ratio (RBC) 13.1 % Normal 11.5-15.0 [facility] Comment on above: Performed By: #### C BCDIF ####[place] [address] Erythrocytes (RBC) 3.51 10*6/uL Low 3.90-5.20 [facility] Comment on above: Performed By: #### C BCDIF ####[place] [phone] Hematocrit (HCT) 32.6 % Low 36.0-46.0 [facility] Comment on above: Performed By: #### C BCDIF ####[place] [address] Hemoglobin mass conc (Bld) 10.7 g/dL Low 11.5-15.5 [facility] Comment on above: Performed By: #### C BCDIF ####[place] [phone] Lymphocytes 4.35 10*3/uL High 1.00-4.00 [facility] Comment on above: Performed By: #### C BCDIF ####[place] [phone] Lymphocytes/100 leukocytes 31.5 % Normal [facility] Comment on above: Performed By: #### C BCDIF ####[place] [phone] MCH 30.5 pG Normal 26.0-34.0 [facility] Comment on above: Performed By: #### C BCDIF ####[place] [phone] MCHC mass conc (RBC) 32.8 g/dL Normal 30.5-36.0 [facility] Comment on above: Performed By: #### C BCDIF ####[place] [phone] MCV 92.9 fL Normal 80.0-100.0 [facility] Comment on above: Performed By: #### C BCDIF ####[place] [phone] Monocytes/100 leukocytes 7.0 % Normal [facility] Comment on above: Performed By: #### C BCDIF ####[place] [phone] Neutrophils/100 WBC Auto (Bld) 58.9 % Normal [facility] Comment on above: Performed By: #### C BCDIF ####[place] [phone] Platelet mean volume (PMV) 8.3 fL Low 9.0-12.7 [facility] Comment on above: Performed By: #### C BCDIF ####[place] [phone] Platelets 391 10*3/uL Normal 150-400 [facility] Comment on above: Performed By: #### C BCDIF ####[place] [phone] WBC (Leukocytes) 13.80 10*3/uL High 3.70-11.00 [facility] Comment on above: Performed By: #### C BCDIF ####[address], [place] [phone] Glucose POCT (East, West, SD A Use Only)on 02-15-2017 Glucose mass conc 111 mg/dL High 65-100 [facility] Comment on above: Performed By: #### G LUPOC ####[place] [phone] Glucose mass conc 121 mg/dL High 65-100 [facility] Comment on above: Performed By: #### G LUPOC ####[place] [phone] Glucose mass conc 99 mg/dL Normal 65-100 [facility] Comment on above: Performed By: #### G LUPOC ####[place] [phone] Glucose mass conc 116 mg/dL High 65-100 [facility] Comment on above: Performed By: #### G LUPOC ####[place] [phone] Magnesiumon 02-15-2017 Magnesium 2.0 mg/dL Normal 1.7-2.6 [facility] Comment on above: Performed By: #### B VIANCA MG1, CLEOS ####[place] [phone] NURSING PROGon 02-15-2017 NURSING PROG HNO ID: [id number] thor: Lilibeth Ortega (Rn) Racquel Santosice: (none)Author Type: Registered NurseType: Nursing Progress NoteFiled: 02/15/2017 4:15 PMNote Text: Nursing Progress NotePatient Name: Marilee Tinsley SonalN: [id number] Location: [address]/VQ-[id number]-95 Da nena Note: called to inform that patient had another bloody stool itwas dark red, no change in vital signs HR has remained in 70's, on RA, noincrease in pain, patient is only taking sips of clears otherwiseunchanged , stable, lab orders again @ 1800.This note was completed by: Lilibeth Santos RN [facility] NURSING PROG HNO ID: [id number] thor: Lilibeth Otrega (Rn) Doroteo Santos: (none)Author Type: Registered NurseType: Nursing Progress NoteFiled: 02/15/2017 10:29 AMNote Text: Nursing Progress NotePatient Name: Marilee OlivierJeraldRN: [id number] Location: [facility]/NG-[id number]-93 Da nena Note:Patient states she's feeling ok, just brought up some 'phlegm',( clearbubbles) no emesis, able to keep down 'bites' or sips of broth and tea,given IV phenergan, denies pain, encouraged to continue to ambulate,stable, call light in reach.This note was completed by: Lilibeth Santos RN [facility] NURSING PROG HNO ID: [id number] thor: Liliana GarciaRn) Racquel Sethice: (none)Author Type: Registered NurseType: Nursing Progress NoteFiled: 02/15/2017 5:53 AMNote Text: Nursing Progress NotePatient Name: Marilee OlivierirMRN: [id number] Location: /[id number] Surgery paged [phone] Marilee Arriaga: patient had dark bloody BM. pleaseadvise. Thanks, Liliana [phone] No new ordersThis note was completed by: Liliana Seth RN [facility] PROGRESSon 02-15-2017 PROGRESS HNO ID: [id number] thor: Mark Anthony (Romain) Raghue: General SurgeryAuthor Type: ResidentType: Progress NotesFiled: 02/15/2017 8:25 AMNote Text:General SurgeryProgress notesAdmitted: 02/13/2017OR date: 02/13/2017 Procedure(s) and Anesthesia Type: * LAPAROSCOPIC GASTRIC RESTRICTIVE SURG W/ BYPASS AND CRYSTAL-EN-Y = 40 (morbid obesity) ([facility]) E66.01 (02/12/2017) Morbid obesity (HCC) (02/13/2017)Hold Lovenox/Toradol, [...] RNF, potential discharge tomorrowPaul MD Ted (PGY 2)[id number] 6PM weekdays and all through weekends: [id number] SNausea and emesis yesterday, improving and PO intake improvingSlept okayDark bloody BMs this AMAmbulating well OTemp (24hrs), Av.7 ?C (98 ?F), Min:36.4 ?C (97.6 ?F), Max:36.9 ?C(98.4 ?F)BP 147/78 Pulse 80 Temp 36.4 ?C (97.6 ?F) (Oral) Resp 16 Ht 154.9cm (5' 1 ) Wt (!) 150.6 kg (332 lb) LMP 01/27/2017 SpO2 99% BMI62.73 kg/g5VCSMJRT: Mild distress as actively nauseated and sitting up with vomitbag, alert and oriented x 3HEENT: NC/AT, EOM's intactRESPIRATORY: Respiratory effort unlaboredCHEST-CVS: HDSABDOMEN: Soft, obese and non distended, non tender, laparoscopic incisionsCDI with glueNEURO: Grossly non-focal02/14 07 - 02/15 0659In: 3622 [PO:300; IV:3322]Out: 2180 [Urine:1850] Normal [facility] PROGRESS HNO ID: [id number] thor: Renée LopezService: General SurgeryAuthor Type: PhysicianType: [...] as PO intake improvesStreggie Lopez MD Normal [facility] Phosphoruson 02-15-2017 Phosphate 1.9 mg/dL Low 2.5-4.5 [facility] Comment on above: Performed By: #### B MP, MG1, PHOS ####[facility] [place], [place] [phone] Vital Signs Date Time Vital Sign Value Performing Clinician Faci lity 09-19-2023 09:41-0500 Body height 157.48 cm [facility] 09-19-2023 09:41-0500 Body weight 104.32 kg [facility] Encounters Encounter Date Encounter Type Care Provider Facility Start: 05-21-2024 End: 05-21-2024 Telephone encounter Francoise Jacobo PA Work Phone: [facility] Start: 05-21-2024 ambulatory Jamey Minor acility:[facility] Start: 05-09-2024 End: 05-09-2024 ambulatory FRANCOISE JACOBO Not Available Start: 05-06-2024 End: 05-06-2024 ambulatory Najma Richardson MD Facility: [facility] Start: 02-12-2024 End: 02-12-2024 ambulatory Najma Richardson MD [facility] Start: 01-31-2024 End: 01-31-2024 ambulatory FRANCOISE JACOBO Not Available Start: 01-23-2024 End: 01-23-2024 ambulatory FRANCOISE JACOBO Not Available Start: 01-04-2024 ambulatory [facility] Start: 12-29-2023 ambulatory [facility] Start: 2023 End: 2023 ambulatory [facility] Start: 12-12-2023 End: [...] Start: 09-19-2023 End: 09-19-2023 Patient encounter procedure [facility] [place] Work Phone: Start: 09-19-2023 End: 09-19-2023 ambulatory NON STAFF [facility] Work Phone: Start: 08-05-2023 End: 08-05-2023 ambulatory FRANCOISE JACOBO Not Available Start: 07-26-2023 End: 07-26-2023 ambulatory FRANCOISE JACOBO Not Available Start: 07-17-2023 Registered [facility] Start: 06-05-2023 End: 06-05-2023 ambulatory Najma Richardson MD Facility:[facility] Start: 11-07-2022 End: 11-08-[address] FRANCOISE JACOBO Facility: Start: 06-27-2022 End: 06-27-2022 ambulatory SUNSHINE NEWMAN . Facility: Start: 04-27-2022 End: 10-26-2022 ambulatory FRANCOISE JACOBO Facility:[facility] Start: 04-22-[address] FRANCOISE JACOBO Facil ity:H1 Start: 11-05-2021 End: 11-05-2021 Emergency department patient visit Tyler Petersen Facility:[facility] Start: 09-18-2018 Patient encounter procedure Ida Weber Facility:[id number] Start: 05-08-2018 Patient encounter procedure Ida Weber Facility:[id number] Start: 02-13-2018 End: 02-16-2018 Ambulatory FRANCOISE JACOBO [facility] Start: 12-19-2017 Patient encounter procedure Ida [...] [facility] [address] [place] [address] Francoise Jacobo PA [address] [place] [address] [facility] Start: 06-03-2024 End: 06-03-2024 Patient encounter procedure 06/03/2024 1:10 PM EDT Office Visit [facility] [address] [place] [phone] Coy Hung MD [address] [place] [address] [facility] Start: 04-21-2024 Influenza vaccination Influenza Vacc ine (#1) [facility] Start: 02-18-2024 Influenza vaccination Influenza Vacc ine (#1) [facility] Comment on above: Postponed from 04/21 (Patient Refused) Start: 02-11-2024 Screening for malignant neoplasm of breast Mammogram [facility] Start: 10-25-2023 End: 10-25-2023 Patient encounter procedure 10/25/2023 1:00 PM EST Office Visit [facility] [address] [facility] [address] [place] [phone] Francoise Jacobo PA [address] [facility] [address] [place] [address] [facility] Start: 12-14-2007 Screening for malignant neoplasm of cervix [facility] Start: 1998 Screening for malignant neoplasm of cervix Pap Smear [facility] Start: 1977 Screening for malignant neoplasm of colon [facility] Immunizations Immunization Date Immunization Notes Care Provider Fa [facility] 05-30-2021 influenza, injectabl e, quadrivalent, preservative free Francoise MARTINEZ Work Phone: [facility] 05-30-2021 influenza virus vacc ine, unspecified formulation Francoise MARTINEZ Work Phone: [facility] 06-12-2020 influenza, injectabl e, quadrivalent, preservative free Francoise MARTINEZ Work Phone: [facility] 12-16-2018 tetanus toxoid, redu brina diphtheria toxoid, and acellular pertussis vaccine, adsorbed Francoise MARTINEZ Work Phone: [facility] Payers Date Payer Category Payer Self-pay [id number] 2022 Medicaid [place] [id number] 2022-Present [address] [place] [address] [id number] 2022 Medicaid [id number] 2022 Unknown 2018 Unknown [id number] 2018 Unknown [id number] 1977 Unknown [id number] 2.16840.1.966608.3.579.2.356 1977 Unknown [id number] 2.16840.1.360589.3.579.2.356 1977 Unknown [id number] 2.16840.1.832827.3.579.2.356 1977 Unknown [id number] 2.16840.1.083703.3.579.2.727 1977 Unknown [id number] 2.16840.1.325579.3.579.2.727 1977 Unknown [id number] 2.16.840.1.863933.3.579.2.593 1977 Unknown [id number] 2.16.840.1.872245.3.579.2.593 1977 Unknown [id number] 2.16.840.1.069557.3.579.2.593 1977 Unknown [id number] 2.16.840.1.460514.3.579.2.1286 1977 Unknown [id number] 2.16840.1.902336.3.579.2.1285 1977 Unknown [id number] 2.16840.1.008530.3.579.2.1285 1977 Unknown [id number] 2.16.840.1.752443.3.579.2.1285 1977 Unknown [id number] 2.16840.1.790681.3.579.2.1285 1977 Unknown [id number] 2.16840.1.426847.3.579.2.1285 1977 Unknown [id number] 2.16840.1.631707.3.579.2.1285 1977 Unknown [id number] 2.840.1.001186.3.579.2.1258 1977 Unknown [id number] 2.840.1.376261.3.579.2.1258 1977 Unknown [id number] 2.16840.1.640280.3.579.2.1258 1977 Unknown [id number] 2.16840.1.456912.3.579.2.1258 1977 Unknown [id number] 2.16840.1.728872.3.579.2.1258 1977 Unknown [id number] 2.16840.1.398370.3.579.2.1258 1977 Unknown [id number] 2.16840.1.868958.3.579.2.1258 1977 Unknown [id number] 2.16840.1.187350.3.579.2.1258 1977 Unknown [id number] 2.16840.1.283327.3.579.2. 1977 Unknown [id number] 2.16840.1.380883.3.579.2. 1977 Unknown [id number] 2.16840.1.054996.3.579.2.196 1977 Unknown [id number] 2.16.840.1.143381.3.579.2.196 1977 Unknown [id number] 2.16.840.1.610219.3.579.2.196 1959 Unknown [id number] Unknown [id number] 2.16.840.1.866067.3.579.2.531 Unknown [id number] 2.16.840.1.578104.3.579.2.531 Social History Date Type Detail Facility Tobacco smoking stat us AKIS Unknown if ever smoked [facility] Work Phone: Start: 1975 Sex Assigned At Female F [facility] Start: 09-18-2018 End: 01-23-2023 Tobacco smoking status NHIS Never smoked tobacco (finding) [facility] Start: 01-23-2023 Tobacco use and exposure [...] the medication. Filled 12/11/2017, 04/07/2018, 04/07/2020 at [facility] in [place]. Called back and spoke with Sj, who connected me with pharmacistNena. They will look into this and verify the claims and fax new determination to the office. [facility] Note 05-21-2024 Telephone Encounter - [...] the medication. Filled 12/11/2017, 04/07/2018, 04/07/2020 at [facility] in [place]. Called back and spoke with Sj, who connected me with pharmacistNena. They will look into this and verify the claims and fax new determination to the office. documented in this encounter [facility] Telephone encounter Note 09-25-2023 Telephone Encounter - MICHELLE Cao - 09/25/2023 10:06 AM EST Note Date & Type Note Facility 09-25-2023 Telephone encount er Note OARRS reviewed, Rx sent into patient's pharmacy. [facility] Note 09-25-2023 Telephone Encounter - [...] authenticated by: EM LÓPEZ Date: 2022-06-27 15:38 [facility] Progress note 06-28-2021 Note Date & Type Note Facility 06-28-2021 Note HNO ID: [id number] Author: Em Fernandez, PhD Service: ? Author Type: Psychologist Type: Progress Notes Filed: 06/28/2021 2:45 PM Note Text: Received mental health records from [facility]. Note from 05/06/21 revealed pt has [...] medical records for scanning. Em Fernandez, psychologist [facility] Evaluation note Note Date & Type Note Facility Evaluation note No assessment information availa ble [facility] Work Phone: Evaluation note Note Date [...] section and content) DATE CREATED AUTHOR 02/14/2018 [facility] DATE CREATED AUTHOR AUTHOR'S ORGANIZ ATION 02/16/2018 [facility] DATE CREATED AUTHOR AUTHOR'S ORGANIZ ATION 10/09/2018 [facility] ical Center DATE CREATED AUTHOR AUTHOR'S ORGANIZ ATION 10/11/2021 [facility] DATE CREATED AUTHOR AUTHOR'S ORGANIZ ATION 10/28/2022 [facility] ical Center DATE CREATED AUTHOR AUTHOR'S ORGANIZ ATION 11/13/2022 [facility] DATE CREATED AUTHOR AUTHOR'S ORGANIZ ATION 01/09/2024 [facility] DATE CREATED AUTHOR AUTHOR'S ORGANIZ ATION 05/11/2024 [facility] EPIC DATE CREATED AUTHOR AUTHOR'S ORGANIZ ATION 05/17/2024 [facility] DATE CREATED AUTHOR AUTHOR'S ORGANIZ ATION 05/29/2024 [facility] y[facility] Goals (unrecognized section and [...] September 19, 2023 End: September 19, 2023 Medical Aides Teacher Relationship Specialty Start Date End Date Shalini Coffey MD [address] [facility] [address] [place] [address] PCP - General Family Medicine 08/05/23 Medical Aides Teacher Relationship Specialty Start Date End Date Shalini Coffey MD [address] [facility] [address] [place] [address] PCP - General Family Medicine 08/05/23 Reason [...] BE BASED ON THE PRIMARY CLINICAL RECORDS. [employer] provides no warranty or guarantee of the accuracy or completeness of information in this document.
[2024-05-31 23:20] LABS: Glucometer 95 mg/dL (74-106)
--- NOTE | 2024-05-31 23:21 | ED_ITS ---
HPI HPI - General Adult General Chief complaint: Recheck/Abnormal Lab/Rx Stated complaint: low blood sugar Time Seen by Provider: 05/31/24 23:10 Source: patient Mode of arrival: walk-in Limitations: no limitations History of Present Illness HPI narrative: 48-year-old female presents to the emergency department for low blood sugar. She states she is not diabetic and over the past several years has had problems with her sugar going too high and too low. She saw an marquetry worker and she was told that her hemoglobin A1c is normal and she did not need to be on any medications for her blood sugar. She is not on insulin or oral hypoglycemics. She has not been ill recently, no fever or pain. She states over the past week her blood sugars been going a low, as well as 53. She has been eating normally. She wears a Samreen to check her blood sugar. Related Data Home Medications ?Medication ?Instructions ?Recorded ?Confirmed acetaminophen 650 mg 650 mg PO Q12H PRN pain 02/13/23 05/31/24 tablet,extended release (Tylenol Arthritis Pain) aripiprazole 400 mg suspension, 400 mg IM Q28D 02/13/23 05/31/24 extended rel.intramuscular syringe ([address]) buspirone 30 mg tablet 30 mg PO TID 02/13/23 05/31/24 lumateperone 10.5 mg capsule 42 mg PO DAILY 02/13/23 05/31/24 (Caplyta) tramadol 50 mg tablet 50 mg PO BID PRN pain 02/13/23 05/31/24 trazodone 300 mg tablet 300 mg PO DAILY PRN sleep 02/13/23 05/31/24 venlafaxine 100 mg tablet 300 mg PO DAILY 02/13/23 05/31/24 zolpidem 5 mg tablet (Ambien) 5 mg PO BEDTIME PRN sleep 02/13/23 05/31/24 tizanidine 4 mg tablet 4 mg PO BEDTIME 04/18/23 05/31/24 acarbose 25 mg tablet 25 mg PO DAILY 08/01/23 05/31/24 cholecalciferol (vitamin D3) 250 10,000 unit PO DAILY 08/01/23 05/31/24 mcg (10,000 unit) capsule hydroxyzine pamoate 25 mg capsule 50 mg PO BID 08/01/23 05/31/24 lamotrigine 150 mg tablet 300 mg PO DAILY 12/03/23 05/31/24 metoprolol succinate 25 mg 25 mg PO DAILY 04/04/24 05/31/24 tablet,extended release 24 hr escitalopram oxalate 10 mg tablet 10 mg PO DAILY 05/27/24 05/31/24 (Lexapro) Previous Rx's ?Medication ?Instructions ?Recorded metronidazole 250 mg tablet 250 mg PO TID 7 days #21 tabs 06/01/24 Allergies Allergy/AdvReac Type Severity Reaction Status Date / Time erythromycin base (From Allergy Unknown Unknown Verified 05/31/24 23:23 E-Mycin) Penicillins Allergy Unknown Unknown Verified 05/31/24 23:23 shellfish derived Allergy Unknown Unknown Verified 05/31/24 23:23 Sulfa (Sulfonamide Allergy Unknown Unknown Verified 05/31/24 23:23 Antibiotics) codeine Allergy Unknown Verified 05/31/24 23:23 Opioid HPI Opioid Management Most Recent Opioid Data: Last Pain Scale 7 05/27/24 11:03 05/27/24 Review of Systems ROS Narrative A ten point review of systems is negative except as noted above. [facility] Medical History Surgical History S/P endometrial ablation ?Z98.890 - Other specified postprocedural states (ICD-10) S/P right knee arthroscopy ?Z98.890 - Other specified postprocedural states (ICD-10) H/O gastric bypass ?Z98.84 - Bariatric surgery status (ICD-10) S/P tonsillectomy ?Z90.89 - Acquired absence of other organs (ICD-10) Social History Smoking status: Never smoker Little interest or pleasure in doing things: not at all Feeling down, depressed, or hopeless: not at all Exam Narrative Exam Narrative: Nurses note and vital signs reviewed and patient is not hypoxic. General: The patient appears well and in no apparent distress. Patient is resting comfortably, sitting on the edge of the cart Skin: Warm, dry, no pallor noted. There is no rash noted. Head: Normocephalic, atraumatic Eye: Normal conjunctiva, no drainage Ears, Nose, Mouth, and Throat: oral mucosa is moist. Nares patent. Cardiovascular: Regular Rate and Rhythm Respiratory: Patient is in no distress, no accessory muscle use, lungs are clear to auscultation, no wheezing, rales or rhonchi Back: non-tender GI: Obese and nontender Musculoskeletal: No joint swelling Neurological: A&O, normal speech Psychiatric: Cooperative Constitutional Vital Signs, click to edit/add: Last Vital Signs Temp 97.7 F 05/31/24 23:15 Pulse 90 05/31/24 23:15 Resp 18 05/31/24 23:15 BP 148/103 H 05/31/24 23:15 Pulse Ox 97 05/31/24 23:15 O2 Del Method Room Air 05/31/24 23:15 Course Vital Signs Vital signs: Vital Signs Temperature 97.7 F 05/31/24 23:15 Pulse Rate 90 05/31/24 23:15 Respiratory Rate 18 05/31/24 23:15 Blood Pressure 148/103 H 05/31/24 23:15 Pulse Oximetry 97 05/31/24 23:15 Oxygen Delivery Method Room Air 05/31/24 23:15 Temperature 97.7 F 05/31/24 23:15 Pulse Rate 90 05/31/24 23:15 Respiratory Rate 18 05/31/24 23:15 Blood Pressure 148/103 H 05/31/24 23:15 Pulse Oximetry 97 05/31/24 23:15 Oxygen Delivery Method Room Air 05/31/24 23:15 Medical Decision Making [facility] Narrative Medical decision making narrative: Her blood sugar is normal here, no evidence of hypoglycemia now. Incidental finding of trichomonas in the urine was noted and she is prescribed Flagyl. She has an appointment with her marquetry worker the day after tomorrow and she will keep that appointment. Treatment diagnosis and follow-up were discussed with the patient. Differential Diagnosis Differential Diagnosis: Hypoglycemia Lab Data Lab results reviewed: Yes I reviewed the patient's lab results Labs: Lab Results 05/31/24 05/31/24 05/31/24 Range/Units 23:18 23:35 23:50 WBC 16.8 H (4.0-11.0) 10^3/uL RBC 4.73 (4.20-5.40) 10^6/uL Hgb 14.3 (12.0-16.0) g/dL Hct 44.3 (36.0-48.0) % MCV 93.7 (81.0-99.0) fL MCH 30.2 (26.7-34.0) pg MCHC 32.3 (29.9-35.2) g/dL RDW 12.1 (11.0-15.0) % Plt Count 411 (150-450) 10^3/uL MPV 8.3 L (9.5-13.5) fL Neut % (Auto) 68.7 (43.0-75.0) % Lymph % (Auto) 23.9 (20.5-60.0) % Pratt % (Auto) 5.8 (1.7-12.0) % Eos % (Auto) 1.0 (0.9-7.0) % Baso % (Auto) 0.2 (0.2-2.0) % Neut # (Auto) 11.5 H (1.4-6.5) 10^3/uL Lymph # (Auto) 4.0 H (1.2-3.8) 10^3/uL Pratt # (Auto) 1.0 H (0.3-0.8) 10^3/uL Eos # (Auto) 0.2 (0.0-0.7) 10^3/uL Baso # (Auto) 0.0 (0.0-0.1) 10^3/uL Abs Immat Gran (auto) 0.07 H (0.00-0.03) 10^3/uL Imm/Tot Granulo (auto) 0.4 (0.0-0.5) % Sodium 134 L (136-145) mmol/L Potassium 4.1 (3.5-5.1) mmol/L Chloride 102 (98-107) mmol/L Carbon Dioxide 27.6 (21.0-32.0) mmol/L Anion Gap 8.5 BUN 16.0 (7.0-18.0) mg/dL Creatinine 1.03 H (0.55-1.02) mg/dL Est GFR ( Amer) >60 (>=60 mL/min/1.73m^2) Est GFR (Non-Af Amer) 58 L (>=60 mL/min/1.73m^2) BUN/Creatinine Ratio 15.5 Glucose 102 (74-106) mg/dL Calcium 9.3 (8.5-10.1) mg/dL Urine Color Yellow (YELLOW) Urine Clarity Clear (CLEAR) Urine pH 5.5 (5.0-9.0) Ur Specific [place] >=1.030 A (1.005-1.025) Urine Protein Negative (NEG/TRACE) mg/dL Urine Glucose (UA) Negative (NEGATIVE) mg/dL Urine Ketones Trace A (NEGATIVE) mg/dL Urine Occult Blood Negative (NEGATIVE) Urine Nitrite Negative (NEGATIVE) Urine Bilirubin Small A (NEGATIVE) Urine Urobilinogen 0.2 (0.2-1.0) EU/dL Ur Leukocyte Esterase Moderate A (NEGATIVE) Urine RBC 0-2 (0-2) #/HPF Urine WBC 5-10 A (NONE SEEN) #/HPF Ur Squamous Epith Cells Moderate A (NONE/RARE) #/LPF Ur Transition Epith Cell Rare A (NONE SEEN) #/LPF Urine Crystals None seen (None Seen) #/HPF Urine Bacteria Small A (NONE SEEN) #/HPF Urine Casts None seen (NONE SEEN) #/LPF Urine Mucus Small A (NONE SEEN) Urine Trichomonas Seen A (NONE SEEN) Ur Culture Indicated? Yes POC Glucose 95 (74-106) mg/dL Discharge Plan Discharge Chief Complaint: Recheck/Abnormal Lab/Rx Clinical Impression: Hypoglycemia Patient Disposition: Home, Self-Care Time of Disposition Decision: 00:33 Condition: Good Mode of Transportation: Private Vehicle Prescriptions / Home Meds: New metronidazole 250 mg tablet 250 mg PO TID 7 Days Qty: 21 0RF No Action acarbose 25 mg tablet 25 mg PO DAILY hydroxyzine pamoate 25 mg capsule 50 mg PO BID cholecalciferol (vitamin D3) 250 mcg (10,000 unit) capsule 10,000 unit PO DAILY lamotrigine 150 mg tablet 300 mg PO DAILY metoprolol succinate 25 mg tablet extended release 24 hr 25 mg PO DAILY escitalopram oxalate [Lexapro] 10 mg tablet 10 mg PO DAILY Caplyta 10.5 mg capsule 42 mg PO DAILY buspirone 30 mg tablet 30 mg PO TID trazodone 300 mg tablet 300 mg PO DAILY PRN (Reason: sleep) venlafaxine 100 mg tablet 300 mg PO DAILY tramadol 50 mg tablet 50 mg PO BID PRN (Reason: pain) zolpidem [Ambien] 5 mg tablet 5 mg PO BEDTIME PRN (Reason: sleep) acetaminophen [Tylenol Arthritis Pain] 650 mg tablet extended release 650 mg PO Q12H PRN (Reason: pain) Abilify Maintena 400 mg suspension,extended rel syring 400 mg IM Q28D tizanidine 4 mg tablet 4 mg PO BEDTIME Print Language: Citizen [place] Instructions: Non-diabetic Hypoglycemia (ED) Referrals: SHWETA BARNES [Primary Care Provider] - 1 week
[2024-05-31 23:43] LABS: Basophils Percent Auto 0.2 % (0.2-2.0); Eosinophils Absolute Auto 0.2 10^3/uL (0.0-0.7); Hematocrit 44.3 % (36.0-48.0); Hemoglobin 14.3 g/dL (12.0-16.0); Immature Granulocytes Abs Auto 0.07 10^3/uL (0.00-0.03); Immature Granulocytes Pct Auto 0.4 % (0.0-0.5); Lymphocytes Percent Auto 23.9 % (20.5-60.0); Mean Corpuscular HGB Conc 32.3 g/dL (29.9-35.2); Mean Corpuscular Hemoglobin 30.2 pg (26.7-34.0); Mean Corpuscular Volume 93.7 fL (81.0-99.0); Mean Platelet Volume 8.3 fL (9.5-13.5); Monocytes Percent Auto 5.8 % (1.7-12.0); Neutrophils Absolute Auto 11.5 10^3/uL (1.4-6.5); Neutrophils Percent Auto 68.7 % (43.0-75.0); Platelet Count 411 10^3/uL (150-450); Red Blood Count 4.73 10^6/uL (4.20-5.40); Red Cell Distribution Width 12.1 % (11.0-15.0); White Blood Count 16.8 10^3/uL (4.0-11.0)
[2024-05-31 23:53] LABS: Anion Gap 8.5; BUN Creatinine Ratio 15.5; Calcium 9.3 mg/dL (8.5-10.1); Carbon Dioxide 27.6 mmol/L (21.0-32.0); Chloride 102 mmol/L (98-107); Estimated GFR (African America >60 (>=60 mL/min/1.73m^2); Estimated GFR (Non-African Ame 58 (>=60 mL/min/1.73m^2); Glucose 102 mg/dL (74-106); Potassium 4.1 mmol/L (3.5-5.1); Sodium 134 mmol/L (136-145)
[2024-05-31 23:57] LABS: Bilirubin Urine SMALL (NEGATIVE); Blood Urine NEGATIVE (NEGATIVE); Clarity Urine CLEAR (CLEAR); Color Urine YELLOW (YELLOW); Glucose Urine UA NEGATIVE (NEGATIVE); Ketones Urine TRACE mg/dL (NEGATIVE); Leukocyte Esterase Urine MODERATE (NEGATIVE); Nitrite Urine NEGATIVE (NEGATIVE); Protein Urine NEGATIVE (NEG/TRACE); Specific Gravity Urine >=1.030 (1.005-1.025); Urobilinogen Urine 0.2 EU/dL (0.2-1.0); pH Urine 5.5 (5.0-9.0)
[2024-06-01 00:06] LABS: RBC Urine 0-2 #/HPF (0-2)
[2024-06-01 00:07] LABS: Bacteria Urine SMALL #/HPF (NONE SEEN); Cast Seen? NONE SEEN #/LPF (NONE SEEN); Crystals Seen? None Seen #/HPF (None Seen); Mucus Urine SMALL (NONE SEEN); Squamous Epithelial Cell Urine MODERATE #/LPF (NONE/RARE); Transitional Epi Cells Urine RARE #/LPF (NONE SEEN); Trichomonas Urine SEEN (NONE SEEN); Urine Culture Indicated YES
[2024-06-01 00:39] VITALS: BP 138/96
== END 2024-06-01 00:41 | disposition home or self-care (01) ==
PROVIDERS: Emergency Provider Emergency Medicine; PCP Physician Assistant
DX: E16.2 Hypoglycemia, unspecified (principal)
CPT/HCPCS: 36415; 80048; 81001; 85025; 87086; 99283

== ENCOUNTER 2024-06-10 12:24 | Outpatient (OUT) | payer MEDICAID, SELFPAY ==
--- OUTSIDE RECORDS SUMMARY | 2024-06-10 12:34 | XMS_ITS | CCD ---
Author Organization [facility] Care Team Providers Care Crepe Sole Scourer Name Role Phone FRANCOISE BARNES Unavailable Unavailable [...] Unavailable MISC, DR SLOAN Primary Care Unavailable J[place], DR EM Snyder Consulting Unavailable TRENT ., SUNSHINE Consulting Unavailable NAELGRANT Consulting Unavailable HEMMER, DR FRANCOISE Del Castillo Admitting Unavailable HEMMER, DR FRANCOISE Del Castillo Attending Unavailable MISC, DR SOLAN Primary Care Unavailable HEMMER, DR FRANCOISE Del Castillo Consulting Unavailable HEMMER, DR FRANCOISE Del Castillo Admitting Unavailable HEMMER, DR FRANCOISE Del Castillo Attending Unavailable NON STAFF Primary Care Provider UnavailMD Jamey Kapoor Attending Provider [phone] MAHIN Szymanski Attending Provider Shalini Coffey MD [...] Unavailab le NON STAFF Primary Care Unavailable HEMMERFRANCOISE M Attending Unavailable HEMMER, FRANCOISE M Attending Unavailable HEMMER, FRANCOISE M Attending Unavailable OSMELGERMAINE Attending Unavailable HEMMER, FRANCOISE M Attending Unavailable HEMMER, FRANCOISE M Attending Unavailable HEMMER, FRANCOISE M Attending Unavailable HEMMER, FRANCOISE M Attending Unavailable DESIREECOY LANDRY F Attending Unavailable DESIREE, AHMAD F Referring Unavailable Giedraitis , Andrius Vytautas Attending Unavailable Giedraitis MD, Andrius Vytautas Attending Unavailable Giedraitis MD, Andrius Vytautas Attending Unavailable Giedraitis MD, Andrius Vytautas Attending Unavailable Giedraitis MD, Andrius Vytautas Attending Unavailable Giedraitis MD, Andrius Vytautas Attending Unavailable Allergies Allergy Classification Reported Allergen(s) Allergy Type Date of Onset Reaction(s) Facility (1 source) Cephalexin; Translations: [Keflex] Drug Allergy [facility] Repository (10 sources) Clindamycin; Translations: [clindamycin] Drug Allergy [facility] Repository (11 sources) Codeine; Translations: [codeine] Drug Allergy Rash [facility] Repository (1 source) NSAIDs; Translations: [NSAIDs] Propensity to adverse reactions (disorder) [facility] Repository (8 sources) Penicillins; Translations: [penicillins] Propensity to adverse reactions (disorder) Rash [facility] Repository (1 source) Sulfonamides (Antibiotic); Translations: [sulfa drugs] Propensity to adverse reactions (disorder) [facility] Repository (1 source) alot of ATB's, I dont know names; Translations: [alot of ATB's, I dont know names] Propensity to adverse reactions (disorder) [facility] Repository (1 source) Penicillin Drug Allergy [facility] Repository (1 source) Sulfonamides (Antibiotic) Drug allergy (disorder) [facility] Repository (4 sources) Sulfonamides (Antibiotic); Translations: [SULFA (SULFONAMIDE ANTIBIOTICS)] Allergy to substance 5 [facility] (8 sources) erythromycin base; Translations: [ERYTHROMYCIN BASE] Allergy to substance 7 [facility] (6 sources) Bacitracin / Polymyxin B; Translations: [BACITRACIN-POLYM YXIN B] Drug Allergy 3 [facility] Work Phone: (6 sources) Ciprofloxacin; Translations: [CIPROFLOXACIN] Drug Allergy 5 Rash [facility] (6 sources) Erythromycin; Translations: [ERYTHROMYCIN] Drug Allergy 5 [facility] (5 sources) Penicillin G Drug Allergy 3 [facility] (5 sources) Sulfonamides (Antibiotic) Drug Allergy 5 [facility] (6 sources) Soap; Translations: [SOAP] Allergy to substance 7 Swelling [facility] (1 source) Grass pollen; Translations: [GRASS POLLEN] Propensity to adverse reactions to drug (disorder) 5 [facility] Repository (1 source) SHELLFISH CONTAINING PRODUCTS; Translations: [SHELLFISH CONTAINING PRODUCTS] Propensity to adverse reactions to food (disorder) 5 [facility] Repository (4 sources) rizatriptan Drug Allergy 4 Anxiety [facility] Healthcare Work Phone: Medications Current Medications Medication Drug Class(es) Dates Sig (Normalized) Sig (Original) acarbose 25 mg oral tablet (5 sources) alpha-Glucosidase Inhibitor Start: 05-15-2024 take 1 [...] evening. Take with meals. 0 04/25/2023 Active [id number] 200 actuat albuterol 0.09 mg/actuat metered dose inhaler (5 sources) beta2-Adrenergic Agonist Start: 12-26-2023 take 1 [...] ARIPiprazole 400 mg extended release prefilled syringe (7 sources) Atypical Antipsychotic Start: 05-08-2018 inject 400 mg by intramuscular injection every month Aripiprazole (Abilify Maintena) 400 mg Suspension,Extended Rel Syring Active 400 MG IM every month May 07, 2018 11:00pm busPIRone hydrochloride 30 mg oral tablet (7 sources) Start: 05-16-2017 take 30 mg by mouth twice daily Buspirone Active 30 MG PO Twice daily May 15, 2017 11:00pm take 1 tablet by ayla th every twelve hours busPIRone (Buspar) 30 MG tablet Take 30 mg by mouth every 12 (twelve) hours. Active cholecalciferol 0.25 mg oral capsule (5 sources) Vitamin D Start: 01-24-2024 take 1 capsule by mouth once daily cholecalciferol (Vitamin D-3) 250 MCG (07013 UT) capsule Indications: Vitamin D deficiency TAKE 1 CAPSULE BY MOUTH ONCE A DAY AT THE SAME TIME. 100 capsule 3 01/24/2024 Active Start: 02-06-2023 take 1 capsule by mo uth once daily cholecalciferol (Vitamin D-3) 250 MCG (26699 UT) capsule Indications: Vitamin D deficiency Take 1 capsule (250 mcg) by mouth 1 (one) time each day at the same time. 90 capsule 3 02/06/2023 Active Continuous Blood Gluc Receiv er (FreeStyle Samreen 2 Ripon) device (5 sources) Start: 02-23-2023 Continuous Blo od Gluc Developmental Therapist (FreeStyle Samreen 2 Ripon) device USE DIRECTED 02/23/2023 Active Start: 02-23-2023 Continuous Blo od Gluc Developmental Therapist (FreeStyle Samreen 2 Ripon) device USE DIRECTED 0 02/23/2023 Active Continuous Blood Gluc Sensor (FreeStyle Samreen 2 Sensor) misc (5 sources) Start: 04-22-2023 Continuous Blo od Gluc Sensor (FreeStyle Samreen 2 Sensor) misc Use as directed 04/22/2023 Active Start: 04-22-2023 Continuous Blo od Gluc Sensor (FreeStyle Samreen 2 Sensor) misc Use as directed 0 04/22/2023 Active diclofenac sodium 0.01 mg/mg topical gel (5 sources) Nonsteroidal Anti-inflammatory Drug Start: 04-26-2023 diclofenac sodium (Voltaren) 1 % gel Indications: Chronic pain of both knees Apply 2 g topically in the morning and 2 g in the evening and 2 g before bedtime. 150 g 3 04/26/2023 Active escitalopram 5 mg oral tablet (4 sources) Serotonin Reuptake Inhibitor Start: 04-16-2024 take 2 tablets by mouth once daily escitalopram (Lexapro) 5 MG tablet Take 10 mg by mouth Daily 04/16/2024 Active Start: 04-16-2024 take 1 tablet by ayla th once daily escitalopram (Lexapro) 5 MG tablet Take 5 mg by mouth Daily 04/16/2024 Active FLUoxetine 20 mg oral capsule (2 sources) Serotonin Reuptake Inhibitor Start: 05-08-2018 Fluoxetine (Prozac) 20 mg Capsule Active 30 MG PO Daily May 07, 2018 11:00pm hydrOXYzine pamoate 25 mg oral capsule (5 sources) Antihistamine Start: 07-17-2023 take 1 capsule by mouth twice daily as needed for anxiety hydrOXYzine pamoate (Vistaril) 25 MG capsule TAKE 1 CAPSULE BY MOUTH TWICE A DAY NEEDED FOR ANXIETY 07/17/2023 Active lamoTRIgine 150 mg oral tablet (5 sources) Mood Stabilizer, Anti-epileptic Agent take 3 tablets by mouth once daily lamoTRIgine (LaMICtal) 150 MG tablet Take 3 tablets by mouth 1 (one) time each day at the same time. Active lumateperone 42 mg oral capsule (5 sources) Start: 04-04-2023 take 1 capsule by mouth in the morning Caplyta 42 MG capsule Take 1 capsule by mouth in the morning. 04/04/2023 Active 24 hr metoprolol succinate 25 mg extended release oral tablet (4 sources) beta-Adrenergic Ophelia Start: 04-24-2024 take 1 tablet [...] 08/02/2023 Active nystatin 100 unt/mg topical powder (5 sources) Polyene Antifungal Start: 05-06-2024 nystatin (Mycostatin) 392800 UNIT/GM powder Indications: Rash Apply 1 application topically Daily PRN 60 g 2 05/06/2024 Active nystatin (Mycost atin) 272185 UNIT/GM powder Apply 1 application topically in the morning. PRN. 0 Active omeprazole 20 mg delayed release oral tablet (2 sources) Proton Pump Inhibitor Start: 05-16-2017 Omeprazole Magnesium (Prilosec Otc) 20 mg Tablet,Delayed Release (Dr/Ec) Active 40 MG PO Twice daily May 15, 2017 11:00pm ondansetron 4 mg disintegrating oral tablet (9 sources) Serotonin-3 Receptor Antagonist Start: 12-12-2023 take 1 tablet by mouth every eight hours for nausea ondansetron ODT (Zofran-ODT) 4 MG disintegrating tablet Indications: Nausea and vomiting, unspecified vomiting type Take 1 tablet (4 mg) by mouth every 8 (eight) hours if needed for nausea or vomiting 60 tablet 12/12/2023 Active Start: 05-08-2018 take 1 tablet by ayla th three times daily Ondansetron (Zofran Odt) 4 [...] 11:00pm rimegepant 75 mg disintegrating oral tablet (5 sources) Start: 05-09-2024 take 1 tablet by mouth once daily as needed Nurtec 75 MG tablet dispersible Indications: Episodic migraine (CMS/HCC) TAKE 1 TABLET BY MOUTH EVERY DAY NEEDED FOR MIGRAINES 8 tablet 5 05/09/2024 Active Start: 07-26-2023 take 1 tablet by ayla every other day as needed Rimegepant Sulfate [...] 2017 1:00am tiZANidine 4 mg oral tablet (5 sources) Central alpha-2 Adrenergic Agonist Start: 07-31-2023 take 1 tablet by mouth every eight hours for muscle spasms tiZANidine (Zanaflex) 4 MG tablet Indications: Chronic bilateral low back pain without sciatica TAKE 1 TABLET (4 MG) BY MOUTH EVERY 8 HOURS IF NEEDED FOR MUSCLE SPASMS 100 tablet 2 07/31/2023 Active traMADol hydrochloride 50 mg oral tablet (6 sources) Opioid Agonist Start: 05-01-2024 take 1 [...] Discontinued traZODone hydrochloride 100 mg oral tablet (7 sources) Serotonin Reuptake Inhibitor Start: 10-31-2023 take 3 tablets by mouth at bedtime traZODone (Desyrel) 100 MG tablet Indications: Insomnia due to other mental disorder Take 3 tablets (300 mg) by mouth at bedtime 10/31/2023 Active Start: 09-18-2018 take 50 mg by mouth once daily Trazodone Active 50 MG PO Daily September 18, 2018 12:00am take 3 tablets by mo ut at bedtime traZODone (Desyrel) 100 MG tablet Take 3 tablets by mouth at bedtime. 0 Active 24 hr venlafaxine 150 mg extended release oral capsule (5 sources) Serotonin and Norepinephrine Reuptake Inhibitor take [...] 12:00am zolpidem tartrate 5 mg oral tablet (5 sources) gamma-Aminobutyric Acid-ergic Agonist Start: 10-31-19 24 zolpidem (Ambien) 5 MG tablet Indications: Insomnia [...] pain; Translations: [Abdominal pain] Onset: 2023 Episodic Administrative/social admission (2 sources) Patient encounter status; Translations: [Dietary counseling and surveillance] 06-03-2024 Episodic Anxiety disorders (5 sources) Anxiety; Translations: [Anxiety disorder, unspecified] Onset: 05-29-2015 04-26-2023 Chronic Diabetes mellitus without complication (7 sources) Impaired fasting glycemia; Translations: [Impaired fasting glucose] Onset: 01-23-2023 01-23-2023 Episodic Diseases of white blood cells (5 sources) Leukocytosis; Translations: [Elevated white blood cell count, unspecified] Onset: 01-23-2023 01-23-2023 Chronic Disorders of lipid metabolism (5 sources) Hyperlipidemia; Translations: [Hyperlipidemia, unspecified] Onset: 01-23-2023 01-23-2023 Chronic Essential hypertension (5 sources) Benign essential hypertension; Translations: [Essential (primary) hypertension] Onset: 01-23-2023 01-23-2023 Chronic Gastroduodenal ulcer (except hemorrhage) (5 sources) Gastric ulcer; Translations: [Gastric ulcer, unspecified as acute or chronic, without hemorrhage or perforation] Onset: 01-23-2023 01-23-2023 Chronic Headache, including migraine (1 source) Headache; Translations: [Headache] Onset: 02-13-2018 Episodic Headache; including migraine (9 sources) Migraine without aura, not refractory ; Translations: [Migraine without aura, not intractable, without status migrainosus] Onset: 01-23-2023 01-23-2023 Chronic Heart valve disorders (4 sources) Cardiac murmur, unspecified; Translations: [CARDIAC MURMUR UNSPECIFIED] Onset: 11-07-2022 Episodic Malaise and fatigue (5 sources) Fatigue; Translations: [Chronic fatigue, unspecified] Onset: 01-23-2023 01-23-2023 Chronic Menstrual disorders (6 sources) Menorrhagia; Translations: [Excessive and frequent menstruation with regular cycle] Onset: 01-23-2024 05-08-2018 Chronic Miscellaneous mental health disorders (5 sources) Insomnia disorder related to another mental disorder; Translations: [Insomnia due to other mental disorder] Onset: 01-23-2023 01-23-2023 Chronic Mood disorders (5 sources) Recurrent major depressive episodes, moderate ; Translations: [Major depressive disorder, recurrent, moderate] Onset: 01-23-2023 01-23-2023 Chronic Nutritional deficiencies (5 sources) Vitamin D deficiency; Translations: [Vitamin D deficiency, unspecified] Onset: 01-23-2023 01-23-2023 Chronic Osteoarthritis (15 sources) Inflammation of joint of foot; Translations: [Primary osteoarthritis, unspecified ankle and foot] Onset: 09-02-2015 01-23-2023 Chronic Other endocrine disorders (7 sources) Hypoglycemia; Translations: [Hypoglycemia, unspecified] Onset: 01-23-2023 01-23-2023 Chronic Other endocrine disorders (5 sources) Polycystic ovary; Translations: [Polycystic ovarian syndrome] Onset: 01-23-2023 01-23-2023 Chronic Other gastrointestinal disorders (6 sources) Intestinal malabsorption; Translations: [Intestinal malabsorption, unspecified] Onset: 01-23-2024 05-16-2017 Chronic Other gastrointestinal disorders (1 source) H/O: GIT by-pass; Translations: [Bariatric surgery status] 05-16-2017 Episodic Other gastrointestinal disorders (7 sources) History of bypass of stomach; Translations: [Bariatric surgery status] Onset: 12-29-2017 04-26-2023 Episodic Other liver diseases (5 sources) Steatosis of liver; Translations: [Fatty (change of) liver, not elsewhere classified] Onset: 04-26-2023 04-26-2023 Chronic Other nervous system disorders (5 sources) Chronic pain; Translations: [Other chronic pain] Onset: 01-23-2023 01-23-2023 Chronic Other nervous system disorders (1 source) Paresthesia of skin; Translations: [Paresthesia of skin] Onset: 02-13-2018 Episodic Other nutritional; endocrine; and metabolic disorders (7 sources) Morbid obesity; Translations: [Morbid (severe) obesity [...] (BMI) 60.0-69.9, adult] Onset: 2023 Chronic Other nutritional; endocrine; and metabolic disorders (2 sources) Severe obesity; Translations: [Class 3 severe obesity due to excess calories with serious comorbidity and body mass index (BMI) of 50.0 to 59.9 in adult ([facility])] 06-03-2024 Chronic Other nutritional; endocrine; and metabolic disorders (2 sources) Weight increased; Translations: [Abnormal weight gain] 06-03-2024 Episodic Other upper respiratory disease (5 sources) Allergic rhinitis; Translations: [Allergic rhinitis, unspecified] Onset: 01-23-2023 01-23-2023 Chronic Residual codes; unclassified (5 sources) Sleep apnea; Translations: [Sleep apnea, unspecified] Onset: 01-23-2023 01-23-2023 Chronic Residual codes; unclassified (1 source) Pain, unspecified; Translations: [Pain, unspecified] Onset: 12-29-2023 Episodic Unclassified (1 source) Auditory hallucinations; Translations: [Auditory hallucinations] Onset: 02-13-2018 Episodic Past or Other Problems Problem Classification Problem Date Documented Da te Episodic/Chronic Deficiency and other anemia (5 sources) Iron deficiency anemia; Translations: [Iron deficiency anemia, unspecified] Onset: 01-23-2023 01-23-2023 Episodic Neoplasms of unspecified nature or uncertain behavior (5 sources) Thrombocytosis; Translations: [Thrombocytosis] Onset: 01-23-2023 01-23-2023 Episodic Nutritional deficiencies (12 sources) Cobalamin deficiency; Translations: [Deficiency of other specified B group vitamins] Onset: 01-23-2024 12-20-2017 Episodic Other connective tissue disease (4 sources) Pain in left foot; Translations: [PAIN IN LEFT FOOT] Onset: 06-27-2022 Episodic Other lower respiratory disease (5 sources) Dyspnea; Translations: [Shortness of breath] Onset: 01-23-2023 01-23-2023 Episodic Other non-traumatic joint disorders (6 sources) Pain in right knee; Translations: [Pain in joint, lower leg] Onset: 01-24-2023 09-25-2023 Episodic Other nutritional; endocrine; and metabolic disorders (5 sources) Body mass index 40+ - severely obese; Translations: [Morbid (severe) obesity due to excess calories] Onset: 02-12-2017 Resolved: 10-31-2023 04-26-2023 Chronic Residual codes; unclassified (5 sources) Edema; Translations: [Edema, unspecified] Onset: 01-23-2023 01-23-2023 Episodic Spondylosis; intervertebral disc disorders; other back problems (6 sources) Low back pain; Translations: [Low back pain, unspecified] Onset: 01-23-2023 01-23-2023 Episodic Viral infection (5 sources) Plantar wart of left foot; Translations: [Plantar wart] Onset: 01-23-2023 01-23-2023 Episodic Results Test Name Value Interpretation Reference Range Facility Glucose (Bld) [Mass/Vol]Orde red By: Avis Ponce on 06-03-2024 Glucose Blood, POC 96 mg/dL [facility] - Hematology and Cell countson 06-03-2024 HbA1c (Bld) [Mass fraction] 5.3 % [facility] No Panel InformationOrdered By: Avis Ponce on 06-03-2024 [facility] URINE CULTURE, ROUTINEon Bacteria identified Cx Nom (U) Urine Culture, Routine [facility] Healthcare Bacteria identified Cx Nom (U) Mixed urogenital corina [facility] Healthcare Bacteria identified Cx Nom (U) 25,000-50,000 colony forming units per mL [facility] Healthcare Bacteria identified Cx Nom (U) Performed at: [facility] Bacteria identified Cx Nom (U) [address] [place], [place] [id number] [facility] Bacteria identified Cx Nom (U) Social Science Professor: Yash Marcum PhD, Phone: [phone] [facility] MR lumbar spine wo conon MR lumbar spine wo [facility] Main [address] [address] MRI Report Signed Patient: Marilee Arriaga MR#: [id number] : 1975 Acct:[id number] Age/Sex: 47 / F ADM Date: 09/19/23 Loc: MR Room: [facility] Attending Dr: Simona STOCKTON Copies to: MAHIN [...] Beckford Jr., D.O.09/19/2023 2:27 PM Dictation Location: [place] [address] Transcribed By: [facility] 09/19/23 1427 Dictated By: Linden Beckford Jr, DO 09/19/23 1412 Signed By: 09/19/23 1427 Normal [facility] XR pre/post mri xrayon 09-19 XR pre/post mri xray [facility] Main [place] [address] [place], [place] [id number] XRay Report Signed Patient: Marilee Arriaga MR#: [id number] : 1975 Acct:[id number] Age/Sex: 47 / F ADM Date: 09/19/23 Loc: Room: Type: [facility] Attending Dr: Simona STOCKTON Copies to: MAHIN [...] Beckford Jr., D.OArianna09/19/2023 3:08 PM Dictation Location: [place] [address] Transcribed By: [facility] 09/19/23 1508 Dictated By: Linden Beckford Jr, DO 09/19/23 1507 Signed By: 09/19/23 1508 Normal [facility] Physician [facility] ECHOCARDIO M/2D COMPLETEon 0 11-07-2022 ECHOCARDIO M/2D COMPLETE Patient: MARILEE ARRIAGA Exam Date: 11/07/2022 : 1975 Gender:F Ordering : DR FRANCOISE MARTINEZ Admission #: [id number] Family : Order #: [id number] CLICK HERE TO VIEW EXAM ECHOCARDIOGRAM REPORT [...] Shay Masters M.D. on 11/07/2022 at 19:16 [facility] Coding Summary.on 05-04-2022 Coding Summary. [id number] Gh0bWw+PG hlYWQ+IQ1VFYRjK45ybYBylG4QR7v OEV2EYYPTQFQRKE1TJY8zkAR2TBel N1WovzMq JubsmOBuTP40VCk4VQP4qYjkRAeri P8evPLcS9d7ToRjTJ78dI99MZbgDQ GqPtO9LuNidlsgfAVk Q2jeArNpqQJiFeu+PHRhYmxlIHdpZ IOrTCxbJHYnRtVjzOzbVR5vFl6qFJ VyLWNvbGxhcHNlOiBj s1jrUIUtMRrzMV8bpVjwR3OcaIS1A WOsi3j8Ak97qDE+WXVzEBH5aCgoJJ kec841JiQch5klJMM9 mWQuDYcoXVM0T71bm8X9MXCqPIZgQ UW9kUC7uJ4iuRzejmeaJ4FgsDDjFv G3XFJ6pBCtwJ0elTxk bmqvnC5nKyw+W19OYH8SECXWKB1QX km3O9XwBtbsqUK+US87AZMtIU24iB QajGShb5sugVo6JxPs RMXrXSZ1yRgtMZiud7QtMJIjY65qx SRdj2Q0JBXlkDtmnTDeRjDqsTV2qS 7pPCeruzjhv9eczjfz Bltoj4ncqd69tZ47K03fIJrdSQVhR QV7DRKwJGDoeIcffh2mrV0dHx3+ID vyl7uun9izzAu3FlJe YXSzfpLtuLrtFGK0m7SxQl57U5Jnk Ksof3LgBxo7bw63bPLak8O1jZN8ZW caFIEniQ7iJCtgMbZ5 EQDgUhYzlQ76xGErKIkjAp1rfTmad FixGN8hLCLzefuoENMyoD4eJCIbrY EgyFlqNF5jDAFcocsg b769EmHoTHE8ZRTctMUkV2MigC9zG gJrVLWqIDVqI6IsgRExFZdnG428WK iuZuD8PHHiurIqT1Yx TZLcfQmcFeM2o6Z6Yd6Gz0MyfoolK OS3XItfSLI3FdM4TdNpCnA3Z1ShOy y2DRGeoLbnHS6gZ1Th MDZzkijrsjyxkVD3KERgJLIujH68l PBrLUklIg5wg5Q4m097PXQtOGZriR 79Mp6ycIihAFPblTRR wG5fibfcf5qfqpytEqCoVUEfLTd4K Im0FRDlgAwkLhXsHLA4PlR3ZSV3uV YpgD0zaFydqlwwgW3m Oyc+R89qnH3cBDZ6TCO3tuabNNUro vWpBG42OT83A9YfRslbxOCkpDI+PG AupsKvzJgnNG1tXlRz y0fcz3DhDDuqZ1NvJWYxAVlsKbl5J AAiNYX6bYD0lQ8lAGZwWOpud2G4bK M2I5DyuzZabs0by2gy DFSoGUxfK32vcFZrt2U6TOMatUO9F BWizBpqRrRjdM22Kjh+PGNvbGdyb3 DoGevig2tuq4xmvTd3 XwTiDWJuoiQrvIqfCLU8w1BrLk79P 29sIHdpZHRoPSIxNSUiIHZhbGlnbj 0hcX6sXo2+PGNvbCB3 lFC8gX8rOYAyHhW3JNosD148ByBqo KHbPwkso7bmg4fqlMp0EfVyFVFedy LstNbwOWB9s8CaYg67 R67cJLevOENeMBCgFEPvJDUpzSlno f9ikX0lUe2+CI9kf3swxg46mU28jR I+JAUcKGE9yPcvRRfp KSYlaY9wCAqsYbA9KKVfFcDztO36w SGeYCpuCz8ioKsrzQudJL8tUCNgwf lks665MdIfz5caSLZp pPWaGVhkRDJ8A71vb1Q5EKSxVLArK OZ4mGZ1rP6ykWmwlvlvfGZzcEgijn IirEdfEXwvQPdmY622 IBCrbSjaHnTlkRvujmHxAeEwKSo6I 7UgQzg6KOZxpZtfKV4hzAQyXMsoVk 3zcFadwKltEV4dMKQy ozulb647QtXbo3utBCVdfVDbEOnlR IY7L42ph4J0EOGiPAVhDLW7qFS7rQ 1hbGlnbjogbGVmdDsg wyGrvKsfTQvdSRwfV148WIBbtDwxX qIiyvDkEPXtzIL6SA58AS26bHXec2 A8nBV5K4IoJMXvadsf jeuvlLL0XUFwUWUnsC33Kn1pqCizR t8gLQRzPSI2RIKxlDOvM6UbbK1cKv QyRSTbMCSxN3RhbHWm IEkyZ037QZgsJoW9TPWpwgSkH4WpE MSazKsfFcP9b2X9Em1UC0H7EP11KJ 58eNOwg6T1oIO3G2Hu IJErrkevqstbvWX8EYTwVHVxaF43B b1iaLlaSb0mDLGqIOD7MRQyyVJmZ4 PgnY2xEqWfBSGcPFMx I1UlkUYvSQvsN230XQltYpP3JDNtg pKhX9RgAHGvgFgxEyR3v1B0Xo6NON z7XB14FT40eXYtm9Y5 dOO4Y8DgJABaftafoqocnVZ6QIUzL BZkuD32Ru8woUiaWe3rWRAdACN4UG DsoIFhU8NpaV7xUeOo AEHjBBZlX2BxfHEbYCeqC547HLugM aS6BASigcNaH5GuNCJqjQjtOhS7t8 B4Bk3UJIZjQP14TTK6 zIB4UY49HT94I9TpYaqtoZAieFU+P HRhYmxlIHdpZHRoPScxMDAlJyBzdH xdIN0hEs2nVTTpYPLu sRqauCBaTiRbx5yvMMNaNQdwNP1sw DozN2BasCU8YNKnj4v2Be17I02xF4 JvdXA+HFSdvMV1uOX7 bA7aEnDiOlV7QOdbS253DnAnnAWzH jfui7rgd5jamIh6NjD8YMRwmeUkrF zuKPA2k9SfFt46O71j CWrbJNRpAMGzLSQtRRLprFhctj3ls G9wIi8+ELJliYW8cIJ2gQ0bXfQeFi D9NEgdK755DbCgrWJi Ryewa6omb7swwWt8UkUcVJDglnFva ItjUJL2x4XdFj95N4PxuXfuf0PtNq a6lc78fDMcm2D1oIV9 P7TyMBUxxaobsJGkaOayBV8nNYYot tvuHQAodJ7cZTRdO7p5TmZoIcM1HW edU9OeucK2YVGksTKb SUhpHTV9E29df1I7BJNwOVWyYCG9o VB8vJ2dqVsoigyvmVGxcSxoraXvkO nbBHheRAudB539DYDw hLsvXADvmD9vHRVkvQHciFvuUM5cQ PMkucbsKcHHIYqSJLCIWI6NNLMDYj CUPY20MF73cZTet3Q6 yWP4G7JlRQInrikvokcldPO4URUkW FQjeZ87lCGoODsaOr8qg3J7z837EP GdCBYzrP76Jq8rdWze ATZnxYBFwC2ogxlss0zbkiygKqXyN LObWQx3KDl7JXWyqBppUuDzGMS9Py B4TPX1qLSklS0djLpc lorssH2kXnc+QGPwMuOeRQr8TNzlj GQ+SEOpMXW7gDjeGBedOYLerF1lVY IzZ1u0UxFoArB0IFtb R7QiWEZzclxuBp88rL0kKjQeXbM0X YpfL1CauuC5AMUqnQMjGUpySLD7F1 3qo3S4LKMwNDXjRPA0 rNP3aR8orYjbaqjakNGpkNnptxPnk NxeWCilFHuhZ351WUEeuRnxPbE4TJ wtGKGwXV85MP80dIQz z2W0rHW0G3BoRCHjkkwruckglER6L WLiVXPzsN57eNFrPZdkHo9bt8Q8o3 30HBNuFXQudP57Hs9w cHlfXBJkuQEHxM2sxjqsd2ytnbcyK xMsEKErGCo0JXg1TWGtgVflJlJfKI Q2JzK4OSU8rUPzxN6f gWdyjoonpO9yQgw+GuBmBMxkUP63I R11fZLnd9L2hFH0E5WhZGXmpchymg utfLD6FKEoYVCujH11 bPIeYMhuIf1zx6Y0l910PFIvEWZox L96Zy1rsIbqNBJlhDAMkW7btpxhl9 xvcjogIzAwMDAwMDt0 ZDa9WHBioSfzSpWxGBB6XzI4MAT5h LBqbD4mvLdvsegxsA4cUlv+UmVjdX BrjR0gTV26BN43H9Jj PjwvdGFibGU+PHRhYmxlIHdpZHRoP RtzBPPyZcNbnJkmXP5jFv0qJBCuOD EitJiklTWpLpKnw3rz IXVjITmvYC7zpHcjU1OmmYA3OSOxb 8s7Mx99H52kL6PocZQ+PKTihFL4rS C4gD9nNiTyXpF3KTgp C381LgRicEKxThrow7jqj5uxqWy1J fNeKZTillRtqHfeUVR6v4BuIq92Q1 9sIHdpZHRoPSIyMCUi XVZkxBkyxh8vuX6gWh2+HUKnsXO3m JJ3fA4jAmSiGsS1OMptR659KcMycD NkYuzoJ24hA7CwtAO+ DNXkQeo9SILhnFjwAN5nwULyUVpjX k6jMMP1BrZuQrQdILpbY4HgOIAssq xzpiojgAL9CIVqXIPa tN00Bd2whTiqEo3cGHWlYTZ7QKHkx IFrH4CchF2gInJxCYGhSQOuS2AcbQ VzLCcaA240FSecClR8 IONntcPxJ3YaZAVtqAmdXwJ1t3V1B b3DyDvwlAPkWJ1tBkOcMFw5A7UfJn t0QXBiqDprWP2xwNVt UXilJi3saMsisHcyXL5aSKYpwrhzy 497LgSug6ebJPSctBJlJObzHEJ2D8 2nh0R4GHOyJOZeXBU2 kUN1wN8auWxsavfiwBVxcSydvkFvg TtzYEwzQSflG506PCMuaGkgVtRIAh y9T2QwSby0ECUyqHlq FM4fgQOvAHtgDq9wtEzphWwiUH1kK SZrpfzzp052AmOpk4reTLLmyQLuBO yeQIS8X35kk9I0FZIr DMWkLAN8sDG9fD6ycJhcnhtdyICdf EysvnZciZrcQMhkSIojF696KRGbvT ttFb3WWbp4R5JgMsa6 ZFHhqFudJY7tlALyMMhsOh6ylZrup BlkSX6bFXEbwqepd167FjTiy4jbQT PwwYNqBZkaROS5A62r q6N0IEQeCNOjCOT3sHH0oZ0pbYhrd jogbGVmdDsgdmVydGljYWwtYWxpZ2 46IHRvcDsnPlBheWVy OjwvdGQ+WM09gd43W0HbVqoaQuq3Q JAjADG5vHH8bV1kPDUmRTvgh5S3uL F9D0DgdsTnxe5on9ka YXBz (more content not included)... Normal [facility] Consent for Treatmenton Consent for Treatment [id number]#1.00CD:127 [facility] Outside Records Officeon Outside Records Office [id number]#1.00CD:127 [facility] Physician Orderon 04-14-2022 Physician Order [id number]#1.00CD:127 [facility] Coding Summary.on 11-12-2021 Coding Summary. CD:[id number]:[id number] Gh0bWw+PG hlYWQ+WK4LQRWxZ99whCZxeL0XR0c ALZ0OTQORVTPJCL9OEH8gdZJ0VIuv N4OjxgMh CnpynIHgBY84LZb8VQC7nApmAUpfq I0biRPbB6f5MaTpGT68vY28YRrdEL GjKbL4LyYgzfnqhHQg R6qrFaRbyEZdJic+PHRhYmxlIHdpZ ECgFFcjYGAqMzQhiPslNP5uWx0mFN VyLWNvbGxhcHNlOiBj n3stIJDhXNkeSY1fkIjrQ4KrhWO0A IPaa8d6Rz73nRH+XKQhMZZ9nAtsON nrr681XuZoh5nbTWK6 mHZzHGlhXNA4M37vc6D2SMHvGVHiE SE6fLD5mB0zpPqdetrgZ5SnfSPlTz R0KLU1cWExhG0lwRzr ddcnpI1tUje+K43RZD2DHWMWCU4OF ve8Q7RmSvfyzCH+ZQ56QZUaWM16gY VisKAyk4sauCx6VuCs JESyNEP3jFmlILrmn9YtSNQkV42xn NEah3K9ORXugQjilQOnNmOcxEJ9wG 4oMJjnurgzg7elvciv Yapvw8irlc18hT30Y35dXFrqYUGrW ST4GLLfOWOqmFslyy5clW0hLq9+ID gxs5uyw9zmrRd1ReRf QMKyqwNrgCetKIR7d8MtHf71C0Jfn Zgwm6AgJbm4yr66mZKku5C5bTG2MB umJOSnsA7xGLgsRgL7 XVYpAwDdeE11pZAvZSgaDb9tjSuno IprQR0rOKUlekeiBTRwwO2bBHAvyN FbeOljKA6pMKCuzdbf i792YhDqKHD5ZCNokFLvO7VcuK7lZ pTkMNEkCNXtE1PvtTUfYXeqP008YG htNwN5BOQwkoLrN1Kb XJDunWspPwK3f7L9Xe1Oa1NomkszV WX7UVkhOVVwOoI7ArVsBgU4V7UcPm f0GVOxoQikTJ3nV1Pu CJCjzqitwassbTE6GOChCHFeqC05w HQvCQrdEy1wq2D1t359WTUiQXFlyR 47Ia4awBwcEBUljQYZ eB8fpzswo4oujjrfTsEtXHKlBSm5K Pm0YNTmcAwrRwOfSXS1IfR1EOH4cJ XdbB3gmBohpzgbfZ5q Oyc+F60zcU2jQHT8WRE1efxaGOByv hGvBB40HZ70C4KeMxfwrAHfuDJ+PG ZssyYfvWliQB0rFbHr y8hsy8HiEEvhZ3IyJBMdUYyxVcz3F TJxODM1eHU9mR7yNEXwWFntn8Z7pD G4U1XsalRiqg5cg4iy JJQqYGwcE47jfPPhs2Q8JPAtrTL8Z QIzqPzrZjWcmK84Zeb+PGNvbGdyb3 BlPaxhp1qct9mcnPe3 IxWiMHWccgNdhMuiFYY8h7RbLk83U 29sIHdpZHRoPSIxNSUiIHZhbGlnbj 1jtT2uGj7+PGNvbCB3 bCO6zU4wYUMuAaJ4ZUzpX185KgGmz EDoGecoh7ixq5vbbIb1KrSnWIHlat HnaGgeIYR2n7XjRi69 C29cTLbeMAQoJTQcTVBgZJQbaKygz u1klP8bCn6+KH5ia8iwva35iS08pT I+XFBaUAY2dAbvOQjf WZAwcW7wXOvjUiU4SQWcStOgrM69o MQaJVyaYa0txVbrlKcdZJ7wBBWobc yiu434XgIkp9cdCWYg tSSdAWwbXJG6P25ro6Q9DOMgPAOhI PD1zUJ7rK7awLuwttlqdNNszRrjgt MyeHegRPsnUIleJ597 ELIjmPeyOcDnoUqjvvXjTjVkWLy8D 2XlCsj3MTTvhEydBD8xvJOnBPbbKs 2buGlpoHjiHH1yWMSi sgtbm171HsAqk5ulLVXddEXyMHulB GH4N95rk7V5IURuBQNfQCZ3tKO2yU 1hbGlnbjogbGVmdDsg trDlmRwmCImlUQgdT240NOFhzQarF xRwzeZkPLStdFN1FC58HZ82eNPgy0 N9tUN0S9JnEFOdykqd rzgscJY0AMJwQWPxlL20Kx5alUzyU j9kYTUsSAD3FYBpbOAkO8HhmF5hAy SyDBFxNTGcL9ItmXXq EEwoU900WUgqEwS2TAOznyXmU2HeD GJfcMjqVgI4d0A2Le7XG8H9VZ90FM 73iPGki6I1sYN8Y6Zm VINxwvkkwhahlAH2RDEtXVSsbB50M x2iePoqAg8vJBVtLHB7JJHvfUObQ5 EcvS3sXtOcWFSaBJKv J6ZpnAOjAUulK340ZYmmOkA4JGAqr kSaP4JoWXNwfKqmMqE1z1Y4Gf9PLG m9NK98PA20dGFqa5O8 iNL7X0HkQUExzvceuoeuvES3JJYzN TVjjZ92Bx2jxWgsSb0fSMJrSQA3QR YrnANpJ5DdkW6gAnVb XLZiYVPdP3VeoCYvXMwfQ081UDrtT zD0POKmgkPfP2ZwGRAwzXncKpZ9u0 W2Xd8QFGQeAU39UAZ7 aCE2RT99DI85T2WnPkbymBYarSK+P HRhYmxlIHdpZHRoPScxMDAlJyBzdH fcTV6pLe0aHSAiSLYg fOdrdQZyUiYbr2oxKNTjQUpkMW5va XypO3BjzCQ0GPWrw0r4Qn72T77gU9 JvdXA+ABIzeRF9yJI1 wP8nLnCgVfV3ANdpU491WuOrjAZzJ xixs7sqo4cbiUm3TpL3NXXyutTcpL vpOOE2v2OhLt87T12c AOeeGSIoXDYcLRTwLUHmmUmrcc8sr G9wIi8+IQAadVL1qWB4zI5hTrRcJk G5JMcaK267YhXwjLIf Bizgk8iec7gijKq0XsNzVHOyfpBtz DvbPRQ0n0FuNl53V4SmaCcuh8NiJd z7kn72wEIjh4J6cUO0 E9UqMDAkzuawvRWoqNabFO4eKMKgn xgtZPEghQ2iKTWjQ6m5IaQxSsS9GG fiO6BugdJ9EXVtuHDo IAypNHA1B78mc4P1XOCtHHRlAEX1s PN7fG0mzZekrulgnLRnnUpetuEtcY uaYBnyFNpeE064REUp zBnuLNCrcB2oXHUceVRqpZffAD3zS HTltlfbQyUUYDtYWLPIHH0CVHOLBg FEMO47YM01wWOyc5Y0 jBE2M9WqUUBpwumaamfteSJ4QUPbW OUuxL16gKTmNLaoOy0sb7O5v691XA ArVHEhrB77Dx7pdSjn HIBwdCEPrV5tgswpl1zdkbkuJmOlR ESaADt7VUs3DVJeyAmwIuKdJAR3Kz Q1LXF8zROqbO0yjJpu wspqaN8aNda+GHLjHqFvZPv6SZtuq GQ+XXRgIRU6wOdfTYulRAZzyN6hYG QgK0d0KrGcYgO1GApq J4MdZDSsrquiVa88wG9mPqZpApO0X SovZ6YcfiM4JPIowTDiLEvgNBI4Z1 7vs3I9MNRvCHTqTVB3 jCM2uA7gdGzgkaxlwLSlmBzuwpDwk YflDIquTUahG825ZVPtxNbrCaRrYD jpTRKlON54QQ38jQUg u0N9gIW2P0OlZNJmfnaobgyldLR3H UAcBPNlqP82gBEvBIwfXh8wq3H2g1 20REIuOHSqkP16Gi9p jDfsFPEvtHOZsJ3wzjpit0hnfcylC hGiTWRrDGt5ZDu6ASDrmWsgMnWqYO F0OjO8ZQW7oATtbQ0l wWeacsstjI9kVqu+ZnFiDPktLF81I S62hHDqt5E2uAZ3R2RxJRPgywwjwf ufmVK9GOJgYSUsaH88 wFPfKYlrNz8lr7G3a785UELgZCKpi O82Qw7dvLmjCVTqaNDUmY3xrrpld5 xvcjogIzAwMDAwMDt0 ORq6PKRmyZdeTrPgDAU9WdZ3ZRP6x VKckF2bmLisctfmaQ0pPir+RW1lcm khgpT5CN14RS60C4Nx PjwvdGFibGU+PHRhYmxlIHdpZHRoP KydRZSiYuWpuFfcAE3iHl3nUZGsQP YtjJutgAQcFhCdi2dk RBYiPVapVN1xaNjuO2BfdKF8BWHvy 1b4Zk72I32lO7ZknHL+VZNwgTI1zV C3aW9xEbKbNrX9XMwu D682VwTktMScJkenj0fro6mhqKj1H zHvAHWzduLaeEegMCY5r7EkLw79B7 9sIHdpZHRoPSIyMCUi DPMrhVcutx7waF8bWl7+RQRgcTL9z RQ8dH5kAnBqFtG4GHyyS532ArTvkC HeOxthP48yT8PjrFU+ TSUlEzj0BNFchJvlJX6wqOBuPXqrK q3eEHK1AsKgWwQzQHdgE6TjMUYpyf pzdpywkXP4VBZbTZWp sK52Gc4xiLlkEn0qNTIjHRV0WBTiy WCyH7DuoW3pRkYnQNSnYZYtH1PqzM YbNXivB599DQjyJnK4 HGKgycSrA0EaVBJgeNilIzK8y2C8W d6QwTsnmMQeTI8gEqJhZId3Q1FbNo o9NEOkuIiuGM2dcJIu PDthFf9kiDqfrWtpAR4tNGUhxhybv 658VrTtc3glLGAguTKbPHkuFYF5Y4 6lt0C1FJYwMXZaUCX0 pTC8eL6cbOadbjntlLAarUflqrFfw XxeEDfnCKciU664GSXimJwaRlPVJs p3V0CfCys1DPPomIab AJ1crMWxBXqbFg0wpPcsoTumUR2sA EImlnbnv428GvTyz5rfIYWfkKVcNR taHGU5T67sd6J6MJFg IPIySNG9kOS8xW4cdItpgjnptSSue XusrxWdnMhhMDftXHpsN692VJDbbB seJd9QEjy5K8VdGpy3 OSQwkOqcCG6iyPAlRXzjVj2saKglg JjlMW1lXKWzjudyw846EnTzo6zkOE BjfOAmWHymZQS8F68t e5X7EUDwLGTmSHI5tYT3eE0jlXnnc jogbGVmdDsgdmVydGljYWwtYWxpZ2 46IHRvcDsnPlBheWVy OjwvdGQ+VY50nq56X9WiNkwtYqp2X IAbAJN5iOU8wB7wJBJkNSptz9H6zG Z7V5NlydEyvl6il8mm YXBz (more content not included)... Normal [facility] Consent for Treatmenton 10-19 Consent for Treatment [id number]#1.00CD:127 Normal [facility] Discharge Instructionson Discharge Instructions [id number]#1.00CD:127 Normal [facility] ED Clinical Summaryon 2021 ED Clinical Summary (Inserted Image. Maria Del Rosario ble to display) [address] [address] ED Clinical Summary Person Information Name: MARILEE ARRIAGA Felipa/[facility] Age: 45 Years : 1975 Sex: Female Language: Swedish PCP: FRANCOISE GAY Marital Status: Single Visit [...] 16:00:59 11/05/2021 16:00:59 11/05/2021 16:00:59 [facility] [address] [facility] [phone] PHYS DOC NOTES: MEDICAL INFORMATION: Prescriptions Given: New Medications [id number] [address] [facility] [place] [id number], [phone] acetaminophen-hydrocodone (Havelock 325 mg-5 mg oral tablet) 1 Tablets [...] up: With: Address: When: [address] [place] [address] Business (1) In 3 days 11/08/2021 Comments: Return to the emergency room if your pain gets worse or any new symptoms. With: Address: When: FRANCOISE BARNES [address] [place] [address] Business (1) In 3 days DIAGNOSIS: 1:Avulsion [...] and crutches was given. Patient was given Havelock in the emergency room. Will discharge patient home with Havelock and follow-up with Ortho. The OARRS report [...] pain, 10 tab(s), Refill(s) 0, [facility] #[id number], 158, cm, 11/05/21 13:26:00 EDT, Height/Length [...] Foot 3+ Views Left Medications Administered Given Havelock 5/325 Tab, 1 tab(s), Oral Disposition Plan Patient Discharge Condition Stable Discharge Disposition Discharged home Discharge Prescription List Prescriptions Havelock 325 mg-5 mg oral tablet, 1 tab(s), Oral, q6hr, PRN Follow-up With When Contact Information Em Mir In 3 days 11/08/2021 EDT [address] [place] [address]- Business (1) Additional Instructions: Return to the emergency room if your pain gets worse or any new symptoms. FRANCOISE BARNES In 3 days [address] [place] [phone] Business (1) Additional Instructions: Patient Education Crutch [...] Tab, 100 mg= 1 tab(s), Oral, Daily Havelock 325 mg-5 mg oral tablet, 1 tab(s), [...] Comment: Elec tronically Signed By: Tyler Petersen M.D.\.cedrick\Date and Time Signed: 11/05/21 15:39 EDT ED [...] 08/04/2001 Document Revised: 07/20/2018 Document Reviewed: 01/27/2017 Elsevier Patient Education ? 2019 [employer] How to Use a Stirrup Ankle [...] ED Patient Summaryon 022 ED Patient Summary (Inserted Image. Maria Del Rosario ble to display) [facility] [address] [place], [place] [address] Patient Discharge Instructions Person Information Name: MARILEE ARRIAGA Age: 45 Years Arrival Date: 11/05/2021 13:19:01 Discharge Diagnosis: 1:Avulsion fracture of left ankle; 2:Sprain of left foot Primary Care Physician: FRANCOISE GAY Provider Information Primary Provider: Tyler Petersen M.D. Advanced Configuration Analyst:None The exam and treatment you received in the Emergency Department were for an urgent problem and are not intended as complete care. It is important that you follow up with a doctor, nurse practitioner, or physician?s portfolio assistant for ongoing care. If your symptoms [...] Instructions: With: Address: When: [address] [place] [address] Business (1) In 3 days 11/08/2021 Comments: Return to the emergency room if your pain gets worse or any new symptoms. With: Address: When: FRANCOISE BARNES [address] [place] [address] Business (1) In 3 days In the [...] opioids can be used to help relieve prcgkzix-tn-ndwnwa pain and are often prescribed following a [...] abnormality. FINAL REPORT Dictated: 11/05/2021 2:04 pm Ericka Rony SIERRA Signed (Electronic Signature): 11/05/2021 2:04 pm Signed by: Rony Barnett MD Transcribed by: KAIDEN Technologist: RH Normal [facility] XR Foot 3+ Views Lefton 10-19 XR Foot 3+ Views Left Exam Date/Time: 11/05/2021 13:50 EDT Reason for Exam: Fall Report Refer to concurrent left ankle radiograph dictation. FINAL REPORT Dictated: 11/05/2021 2:04 pm Rony Barnett MD Signed (Electronic Signature): 11/05/2021 2:04 pm Signed by: Rony Barnett MD Transcribed by: KAIDEN Technologist: RH Normal [facility] MRI BRAIN [...] HEMORRHAGE OR MASS EFFECT.NO ABNORMAL SITES OF DEMYELINATION.RHINITIS.Interp reted by:SUMANTH Garciaigned by:Margo Mendez MD02/13/18inal result Normal [facility] [place] CNDSon 02-16-2017 CNDS HNO ID: [id number] thor: Mark Anthony (Romain) Raghue: General SurgeryAuthor Type: ResidentType: Discharge SummariesFiled: 02/16/2017 11:44 AMNote Text:The [place] [phone] or [phone] [facility] O N F I D E N T I A L I N F O R M A T I O N -------[facility]ARD [facility] DOCUMENTDISCHARGE SUMMARYPatient Name: Marilee Buckner Date: 02/13/2017Discharge Date: 02/16/2017Attending Physician: Eleni Pfeiffer Diagnosis: Morbid obesitySecondary Diagnoses:Patient Active Hospital Problem List: Obesity, Class III, BMI >= 40 (morbid obesity) ([facility]) E66.01 (02/12/2017) Morbid obesity ([facility]) (02/13/2017)Operations During Hospitalization:Laparoscopic Crystal en Y [...] as needed.Future Appointments:Future AppointmentsDate Time Provider Department Peck02/23/2017 2:30 PM [id number] MORENO GENBMI GENS A/M 03/09/2017 11:00 AM [id number], KASEY (PHD) GSPSMN GENS A/M 03/16/2017 12:00 PM [id number]-PCBALBOZGQCM 2 GENBMI GENS A/M D04/06/2017 1:45 PM [id number]-RSLRUOZLCRENÉE LUNDBERG GENBMI GENS A/M D05/16/2017 10:30 AM [id number] SOTO GENBMI GENS A/M D05/16/2017 10:30 AM [id number] TAM GENBMI GENS A/M BLDPatient will follow-up in clinic with Renée Moreno MD as scheduledabove, or sooner if the need arises.Electronically SIGNED by Licensed Independent Practitioner: Mark Anthony Jean MD Normal [facility] Glucose POCT (East, [place], [place] A Use Only)on 02-16-2017 Glucose mass conc 105 mg/dL High 65-100 [facility] Comment on above: Performed By: #### G LUP ####[facility] [place], [place] [phone] NURSING PROGon 02-16-2017 NURSING PROG HNO ID: [id number] thor: Lilibeth Ortega (Rn) Doroteo Santos: (none)Author Type: Registered NurseType: Nursing Progress NoteFiled: 02/16/2017 11:37 AMNote Text: Nursing Progress NotePatient Name: Marilee SmithTracyN: [id number] Location: [place] [id number] _Daily Note: Patient has been discharged home; she [...] note was completed by: Lilibeth Santos RN [facility] NURSING PROG HNO ID: [id number] thor: Lilibeth Ortega (Rn) Racquel Santosice: (none)Author Type: Registered NurseType: Nursing Progress NoteFiled: 02/16/2017 10:27 AMNote Text: Nursing Progress NotePatient Name: Marilee OlivierJustinN: [id number] Location: [place] [address]/[id number] _Daily Note: Doing better this am, able to take all of pills and drink theKphos, took a shower, so taking in more po, pain controlled, no emesis, nomore bloody stool, ambulating VSS, on RA, expecting to go home today,continue to monitor.This note was completed by: Lilibeth Santos RN [facility] PROGRESSon 02-16-2017 PROGRESS HNO ID: [id number] thor: Hiram (Romain) BrunsService: General SurgeryAuthor Type: ResidentType: Progress NotesFiled: 02/16/2017 8:02 AMNote Text:General Surgery Progress NoteName: Marilee OlivierirMRN: [id number]: 02/16/2017SUBJECTIVESubjective : No acute events overnight. Last melenotic stool [...] lb) LMP 01/27/2017 SpO2 94% BMI 62.73 kg/z3Qrixbz/Output Summary (Last 24 hours) at 02/16/17 0759Last [...] with morbid obesity now POD 3 s/p xewsqqwcncteEfqm-ye-O gastric bypass. Bloody bowel movements resolved with stable H/H.- Phase 2 bariatric diet- Heplock IV- Wean O2- PO pain meds, hold toradol- Will discuss resuming DVT prophylaxis- Encourage incentive spirometry and ambulation- Anticipate discharge today on home Richelle Gordon MDGeneral Surgery ResidentPager [phone] [facility] Basic Metabolic Panlon 02-15 Anion gap 10 mmol/L Normal 9-18 [facility] Comment on above: Performed By: #### B VIANCA MG1, PHOS ####[place] [id number] Calcium 8.1 mg/dL Low 8.5-10.5 [facility] Comment on above: Performed By: #### B VIANCA MG1, PHOS ####[place] [address] Chloride 104 mmol/L Normal 98-110 [facility] Comment on above: Performed By: #### B VIANCA MG1, PHOS ####[place] [address] CO2 27 mmol/L Normal 23-32 [facility] Comment on above: Performed By: #### B VIANCA MG1, PHOS ####[address] Creatinine 0.78 mg/dL Normal 0.70-1.40 [facility] Comment on above: Performed By: #### B VIANCA MG1, PHOS ####[address] eGFR (non-black) mL/min/{1.73_m2} Normal >60 [facility] Comment on above: Performed By: #### B VIANCA MG1, PHOS ####[address] Glucose mass conc 119 mg/dL High 65-100 [facility] Comment on above: Performed By: #### B VIANCA MG1, PHOS ####[address] Potassium molar conc 4.2 mmol/L Normal 3.5-5.0 [facility] Comment on above: Performed By: #### B VIANCA MG1, PHOS ####[place] [address] Sodium 141 mmol/L Normal 132-148 [facility] Comment on above: Performed By: #### B VIANCA MGJose, PHOS ####[place] [id number] Urea nitrogen 15 mg/dL Normal 8-25 [facility] Comment on above: Performed By: #### B VIANCA MGJose, PHOS ####[address] CBCon 02-15-2017 Erythrocyte distribution width Auto Ratio (RBC) 12.9 % Normal 11.5-15.0 [facility] Comment on above: Performed By: #### C BC ####[address] Erythrocytes (RBC) 3.63 10*6/uL Low 3.90-5.20 [facility] Comment on above: Performed By: #### C BC ####[place] [address] Hematocrit (HCT) 33.8 % Low 36.0-46.0 [facility] Comment on above: Performed By: #### C BC ####[address] Hemoglobin mass conc (Bld) 10.9 g/dL Low 11.5-15.5 [facility] Comment on above: Performed By: #### C BC ####[place] [id number] MCH 30.0 pG Normal 26.0-34.0 [facility] Comment on above: Performed By: #### C BC ####[place] [id number] MCHC mass conc (RBC) 32.2 g/dL Normal 30.5-36.0 [facility] Comment on above: Performed By: #### C BC ####[place] [id number] MCV 93.1 fL Normal 80.0-100.0 [facility] Comment on above: Performed By: #### C BC ####[place] [phone] Platelet mean volume (PMV) 8.5 fL Low 9.0-12.7 [facility] Comment on above: Performed By: #### C BC ####[place] [phone] Platelets 368 10*3/uL Normal 150-400 [facility] Comment on above: Performed By: #### C BC ####[phone] WBC (Leukocytes) 11.75 10*3/uL High 3.70-11.00 [facility] Comment on above: Performed By: #### C BC ####[place] [phone] CBC and Differentialon 02-15 Abs Baso 0.02 k/uL Normal 0.00-0.10 [facility] Comment on above: Performed By: #### C BCDIF ####[place] [phone] Abs Cidra 0.97 k/uL High 0.00-0.86 [facility] Comment on above: Performed By: #### C BCDIF ####[place] [phone] Abs Neut 8.11 k/uL High 1.45-7.50 [facility] Comment on above: Performed By: #### C BCDIF ####[place] [phone] Basophils/100 WBC Auto (Bld) 0.1 % Normal [facility] Comment on above: Performed By: #### C BCDIF ####[place] [id number] DTYPE Auto Diff Normal [facility] Comment on above: Performed By: #### C BCDIF ####[place] [phone] Eosinophils 0.35 10*3/uL Normal 0.00-0.45 [facility] Comment on above: Performed By: #### C BCDIF ####[place] [id number] Eosinophils/100 leukocytes 2.5 % Normal [facility] Comment on above: Performed By: #### C BCDIF ####[address] Erythrocyte distribution width Auto Ratio (RBC) 13.1 % Normal 11.5-15.0 [facility] Comment on above: Performed By: #### C BCDIF ####[place] [id number] Erythrocytes (RBC) 3.51 10*6/uL Low 3.90-5.20 [facility] Comment on above: Performed By: #### C BCDIF ####[place] [id number] Hematocrit (HCT) 32.6 % Low 36.0-46.0 [facility] Comment on above: Performed By: #### C BCDIF ####[place] [address] Hemoglobin mass conc (Bld) 10.7 g/dL Low 11.5-15.5 [facility] Comment on above: Performed By: #### C BCDIF ####[place] [id number] Lymphocytes 4.35 10*3/uL High 1.00-4.00 [facility] Comment on above: Performed By: #### C BCDIF ####[place] [phone] Lymphocytes/100 leukocytes 31.5 % Normal [facility] Comment on above: Performed By: #### C BCDIF ####[place] [phone] MCH 30.5 pG Normal 26.0-34.0 [facility] Comment on above: Performed By: #### C BCDIF ####[place] [phone] MCHC mass conc (RBC) 32.8 g/dL Normal 30.5-36.0 [facility] Comment on above: Performed By: #### C BCDIF ####[place] [phone] MCV 92.9 fL Normal 80.0-100.0 [facility] Comment on above: Performed By: #### C BCDIF ####[place] [phone] Monocytes/100 leukocytes 7.0 % Normal [facility] Comment on above: Performed By: #### C BCDIF ####[place] [phone] Neutrophils/100 WBC Auto (Bld) 58.9 % Normal [facility] Comment on above: Performed By: #### C BCDIF ####[place] [phone] Platelet mean volume (PMV) 8.3 fL Low 9.0-12.7 [facility] Comment on above: Performed By: #### C BCDIF ####[place] [phone] Platelets 391 10*3/uL Normal 150-400 [facility] Comment on above: Performed By: #### C BCDIF ####[place] [phone] WBC (Leukocytes) 13.80 10*3/uL High 3.70-11.00 [facility] Comment on above: Performed By: #### C BCDIF ####[place] [phone] Glucose POCT (East, [place], [place] A Use Only)on 02-15-2017 Glucose mass conc 111 mg/dL High 65-100 [facility] Comment on above: Performed By: #### G LUPOC ####[place] [phone] Glucose mass conc 121 mg/dL High 65-100 [facility] Comment on above: Performed By: #### G LUPOC ####[place] [phone] [place] [address] Glucose mass conc 99 mg/dL Normal 65-100 [facility] Comment on above: Performed By: #### G LUPOC ####[place] [phone] [place] [address] Glucose mass conc 116 mg/dL High 65-100 [facility] Comment on above: Performed By: #### G LUPOC ####[place] [id number] Magnesiumon 02-15-2017 Magnesium 2.0 mg/dL Normal 1.7-2.6 [facility] Comment on above: Performed By: #### B MP, MG1, PHOS ####[place] [phone] [place] [address] NURSING PROGon 02-15-2017 NURSING PROG HNO ID: [id number] thor: Lilibeth Ortega (Rn) SUNSHINE Santoservice: (none)Author Type: Registered NurseType: Nursing Progress NoteFiled: 02/15/2017 4:15 PMNote Text: Nursing Progress NotePatient Name: Marilee SmithRN: [id number] Location: [place] [address] _Daily Note: Dr called to inform that patient had another bloody stool itwas dark red, no change in vital signs HR has remained in 70's, on RA, noincrease in pain, patient is only taking sips of clears otherwiseunchanged , stable, lab orders again @ 1800.This note was completed by: Lilibeth Santos RN [facility] NURSING PROG HNO ID: [id number] thor: Lilibeth GarciaRn) Doroteo Santos: (none)Author Type: Registered NurseType: Nursing Progress NoteFiled: 02/15/2017 10:29 AMNote Text: Nursing Progress NotePatient Name: Marilee PruittN: [id number] Location: [place] [address]/[id number] _Daily Note:Patient states she's feeling ok, just brought up some 'phlegm',( clearbubbles) no emesis, able to keep down 'bites' or sips of broth and tea,given IV phenergan, denies pain, encouraged to continue to ambulate,stable, call light in reach.This note was completed by: Lilibeth Santos RN [facility] NURSING PROG HNO ID: [id number] thor: Liliana Echeverria) Doroteo Seth: (none)Author Type: Registered NurseType: Nursing Progress NoteFiled: 02/15/2017 5:53 AMNote Text: Nursing Progress NotePatient Name: Marilee SmithRN: [id number] Location: [place] [address]/[id number] _ Surgery paged [id number] Marilee Arriaga: patient had dark bloody BM. [place] [id number] No new ordersThis note was completed by: Liliana Seth RN [facility] PROGRESSon 02-15-2017 PROGRESS HNO ID: [id number] thor: Mark Anthony (Romain) SheldonugaService: General SurgeryAuthor Type: ResidentType: Progress NotesFiled: 02/15/2017 8:25 AMNote Text:General SurgeryProgress notesAdmitted: 02/13/2017OR date: 02/13/2017 Procedure(s) and Anesthesia Type: * LAPAROSCOPIC GASTRIC RESTRICTIVE SURG W/ BYPASS AND CRYSTAL-EN-Y = 42 (morbid obesity) (HCC) E66.01 (02/12/2017) Morbid obesity (HCC) (02/13/2017)Hold Lovenox/Toradol, [...] RNF, potential discharge tomorrowPaul MD Ted (PGY 2)[id number] 6PM weekdays and all through weekends: [id number] SNausea and emesis yesterday, improving and PO intake improvingSlept okayDark bloody BMs this AMAmbulating well OTemp (24hrs), Av.7 ?C (98 ?F), Min:36.4 ?C (97.6 ?F), Max:36.9 ?C(98.4 ?F)BP 147/78 Pulse 80 Temp 36.4 ?C (97.6 ?F) (Oral) Resp 16 Ht 154.9cm (5' 1 ) Wt (!) 150.6 kg (332 lb) LMP 01/27/2017 SpO2 99% BMI62.73 kg/e8LEMFXBN: Mild distress as actively nauseated and sitting up with vomitbag, alert and oriented x 3HEENT: NC/AT, EOM's intactRESPIRATORY: Respiratory effort unlaboredCHEST-CVS: HDSABDOMEN: Soft, obese and non distended, non tender, laparoscopic incisionsCDI with glueNEURO: Grossly non-focal02/14 07 - 02/15 0659In: 3622 [PO:300; IV:3322]Out: 2180 [Urine:1850] Normal [facility] PROGRESS HNO ID: [id number] thor: Renée MorenoService: General SurgeryAuthor Type: PhysicianType: [...] IVF's as PO intake improvesStreggie Moreno MD Normal [facility] Phosphoruson 02-15-2017 Phosphate 1.9 mg/dL Low 2.5-4.5 [facility] Comment on above: Performed By: #### B VIANCA, MG1, PHOS ####[facility] [place], [place] [phone] Vital Signs Date Time Vital Sign Value Performing Clinician Facility 06-03-2024 13:34-0400 Body height 157.5 cm Coy Ramírez MD Work Phone: [facility] 06-03-2024 13:34-0400 Body mass index (BMI) [Ratio] 59.26 kg/m2 Coy Ramírez MD Work Phone: [facility] 06-03-2024 13:34-0400 Body weight 146.97 kg Coy Ramírez MD Work Phone: [facility] 06-03-2024 13:34-0400 Diastolic blood pressure 78 mm[Hg] Coy Ramírez MD Work Phone: [facility] 06-03-2024 13:34-0400 Heart rate 78 /min Coy Ramírez MD Work Phone: [facility] 06-03-2024 13:34-0400 Respiratory rate 18 /min Coy Ramírez MD Work Phone: [facility] 06-03-2024 13:34-0400 Systolic blood pressure 118 mm[Hg] Coy Ramírez MD Work Phone: [facility] 09-19-2023 09:41-0500 Body height 157.48 cm [facility] 09-19-2023 09:41-0500 Body weight 104.32 kg [facility] Encounters Encounter Date Encounter Type Care Provider Facility Start: 06-03-2024 End: 06-03-2024 Office outpatient visit 25 minutes Coy Ramírez MD Work Phone: [facility] Comment on above: Hypoglycemia (Primar y Dx); S/P gastric bypass; IFG (impaired fasting glucose); Weight gain; Encounter for dietary consultation; Class 3 severe obesity due to excess calories with serious comorbidity and body mass index (BMI) of 50.0 to 59.9 in adult ([facility]) Start: 06-03-2024 End: 06-03-2024 ambulatory COY RAMÍREZ Not Available Start: 05-31-2024 End: 06-03-2024 Clinisync Result Encounter Generic External Data Provider N[facility] External Department Unsolicited Start: 05-31-2024 End: 06-03-2024 Clinisync Result Encounter Generic External Data Provider NOM External Department Unsolicited Start: 05-27-2024 End: 05-27-2024 ambulatory Najma Richardson MD Facility:[facility] Start: 05-21-2024 End: 05-21-2024 Telephone encounter Francoise MARTINEZ Work Phone: [facility] Start: 05-21-2024 ambulatory Jamey Minor acility:[facility] Start: 05-09-2024 End: 05-09-2024 ambulatory FRANCOISE Del Castillo HEMMER Not Available Start: 05-06-2024 End: 05-06-2024 ambulatory Najma Richardson MD Facility: [facility] Start: 02-12-2024 End: 02-12-2024 ambulatory Najma Richardson MD Facility: [facility] Start: 01-31-2024 End: 01-31-2024 ambulatory FRANCOISE M HEMMER Not Available Start: 01-23-2024 End: 01-23-2024 ambulatory FRANCOISE M HEMMER Not Available Start: 01-04-[address] [facility] Start: 12-29-[address] [facility] Start: 2023 End: 2023 ambulatory [facility] Start: 12-12-2023 End: 12-12-2023 ambulatory GERMAINE BOLIVAR Not Available Start: 12-04-2023 End: 12-04-2023 ambulatory Najma Richardson MD Facility: [facility] Start: 11-21-2023 End: 11-21-2023 ambulatory FRANCOISE M HEMMER Not Available Start: 10-31-2023 End: 10-31-2023 ambulatory FRANCOISE Del Castillo HEMMER Not Available Start: 10-23-2023 End: 10-23-2023 ambulatory Najma Richardson MD Facility: [facility] Start: 09-25-2023 Refill Francoise Abundio Hemmer PA Work Phone: [facility] Comment on above: Chronic pain of both knees Start: 09-19-2023 End: 09-19-2023 Patient encounter procedure [facility] [place] Work Phone: Start: 09-19-2023 End: 09-19-2023 ambulatory NON STAFF [facility] Work Phone: Start: 08-05-2023 End: 08-05-2023 ambulatory FRANCOISE M HEMMER Not Available Start: 07-26-2023 End: 12-06-2023 ambulatory FRANCOISE M HEMMER Not Available Start: 07-17-2023 Registered [facility] Start: 06-05-2023 End: 06-05-2023 ambulatory Najma Richardson MD Facility:[facility] Start: 11-07-2022 End: 11-08-[address] FRANCOISE BARNES Facility: Start: 06-27-2022 End: 06-27-2022 ambulatory SUNSHINE NEWMAN . Facility: Start: 04-27-2022 End: 10-26-2022 ambulatory FRANCOISE BARNES Facility:[facility] Start: 04-22-[address] FRANCOISE BARNES Facil ity:H1 Start: 11-05-2021 End: 11-05-2021 Emergency department patient visit Tyler Suazoandrea Facility:[facility] Start: 09-18-2018 Patient encounter procedure Ida Cristinatommy Weber Facility:[id number] Start: 05-08-2018 Patient encounter procedure Ida Cristina Gus Facility:[id number] Start: 02-13-2018 End: 02-16-2018 Ambulatory FRANCOISE BARNES [facility] Start: 12-19-2017 Patient encounter procedure Ida Ruthse Facility:[id number] Procedures Date Procedure Procedure Detail Performing Clinician Start: 06-03-2024 Gluc bld gluc mntr dev cleared fda spec home use Coy Ramírez MD Work Phone: Start: 05-31-2024 Bacteria identified in Urine by Culture Generic External Data Provider Start: 09-19-2023 MR lumbar spine wo con Start: 09-19-2023 XR pre/post mri xray Start: 02-10-2023 Mammography Francoise Barnes PA Work Phone: Start: 02-13-2018 Mri brain brain stem w/o w/contrast material FRANCOISE BARNES 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 Plan of Treatment Date Care Activity Detail Author Start: 12-02-2024 End: 12-02-2024 Patient encounter procedure 12/02/2024 1:30 PM EDT Office Visit [facility] [address] [place] [phone] Coy Ramírez MD [address] [place] [address] [facility] Start: 08-08-2024 End: 08-08-2024 Patient encounter procedure 08/08/2024 11:30 AM EST Office Visit [facility] [address] [place] [address] Francoise Barnes PA [address] [place] [address] [facility] Start: 06-03-2024 End: 06-03-2024 Patient encounter procedure 06/03/2024 1:10 PM EDT Office Visit [facility] [address] [place] [phone] Coy Ramírez MD [address], [address] [place] [address] [facility] Start: 04-21-2024 Influenza vaccination Influenza Vacc ine (#1) [facility] Start: 02-18-2024 Influenza vaccination Influenza Vacc ine (#1) [facility] Comment on above: Postponed from 04/21 (Patient Refused) Start: 02-11-2024 Screening for malignant neoplasm of breast Mammogram [facility] Start: 10-25-2023 End: 10-25-2023 Patient encounter procedure 10/25/2023 1:00 PM EST Office Visit [facility] [address] [facility] [address] [place] [address] Francoise Barnes PA [address] [place] [address] [facility] Start: 12-14-2007 Screening for malignant neoplasm of cervix [facility] Start: 1998 Screening for malignant neoplasm of cervix Pap Smear [facility] Start: 1977 Screening for malignant neoplasm of colon [facility] Immunizations Immunization Date Immunization Notes Care Provider Fa cility 05-30-2021 influenza, injectabl e, quadrivalent, preservative free Francoise Hemkam PA Work Phone: [facility] 05-30-2021 influenza virus vacc ine, unspecified formulation Francoise Hemkam PA Work Phone: [facility] 06-12-2020 influenza, injectabl e, quadrivalent, preservative free Francoise Hemkam PA Work Phone: [facility] 12-16-2018 tetanus toxoid, redu brina diphtheria toxoid, and acellular pertussis vaccine, adsorbed Francoise Hemkam PA Work Phone: [facility] Payers Date Payer Category Payer Self-pay [id number] 2022 Medicaid [id number] 2022 Medicaid [id number] 2022 Unknown 2018 Unknown [id number] 2018 Unknown [id number] 1977 Unknown [id number] 2.16. 840.1.950365.3.579.2.356 1977 Unknown [id number] 2.16. 840.1.325329.3.579.2.356 1977 Unknown [id number] 2.16. 840.1.405801.3.579.2.356 1977 Unknown [id number] 2.16.8 40.1.825016.3.579.2.727 1977 Unknown [id number] 2.16.8 40.1.021393.3.579.2.727 1977 Unknown [id number] 2.16.84 0.1.622071.3.579.2.593 1977 Unknown [id number] 2.16.84 0.1.634232.3.579.2.593 1977 Unknown [id number] 2.16.84 0.1.946697.3.579.2.593 1977 Unknown [id number] 2.16.8 40.1.513979.3.579.2.1285 1977 Unknown [id number] 2.16.8 40.1.328674.3.579.2.1285 1977 Unknown [id number] 2.16.8 40.1.582915.3.579.2.1285 1977 Unknown [id number] 2.16.8 40.1.592714.3.579.2.1285 1977 Unknown [id number] 2.16.8 40.1.503628.3.579.2.1285 1977 Unknown [id number] 2.16.8 40.1.386822.3.579.2.1285 1977 Unknown [id number] 2.16.8 40.1.635704.3.579.2.1285 1977 Unknown [id number] 2.16.84 0.1.840465.3.579.2.1258 1977 Unknown [id number] 2.16.84 0.1.613269.3.579.2.1258 1977 Unknown [id number] 2.16.84 0.1.523459.3.579.2.1258 1977 Unknown [id number] 2.16.84 0.1.069451.3.579.2.1258 1977 Unknown [id number] 2.16.84 0.1.380579.3.579.2.1258 1977 Unknown [id number] 2.16.84 0.1.916194.3.579.2.1258 1977 Unknown [id number] 2.16.84 0.1.350746.3.579.2.1258 1977 Unknown [id number] 2..840 .1.282022.3.579.2.1258 1977 Unknown [id number] 2.16.840 .1.547534.3.579.2.1259 1977 Unknown [id number] 2.16. 840.1.507497.3.579.2.196 1977 Unknown [id number] 2.16. 840.1.308439.3.579.2.196 1977 Unknown [id number] 2.16. 840.1.030396.3.579.2. 1977 Unknown [id number] 2.16. 840.1.122769.3.579.2.196 1977 Unknown [id number] 2.16. 840.1.830808.3.579.2.196 1977 Unknown [id number] 2.16. 840.1.414136.3.579.2.196 1959 Unknown [id number] Unknown [id number] 2.16.8 40.1.145234.3.579.2.531 Unknown [id number] 2.16.8 40.1.385087.3.579.2.531 Social History Date Type Detail Facility Tobacco smoking stat us [facility] Unknown if ever smoked [facility] Work Phone: Start: 1975 Sex Assigned At Female F [facility] Start: 09-18-2018 End: 01-23-2023 Tobacco smoking status MSIS Never smoked tobacco (finding) [facility] Start: 01-23-2023 Tobacco use and exposure Smokeless tobacco non-user [facility] Start: 07-26-2023 End: 05-27-2024 Alcohol intake Ex-drinker (finding) [facility] Start: 01-24-2023 End: 07-26-2023 History of Social function [facility] Start: 01-24-2023 End: 07-26-2023 Tobacco use panel [facility] Start: 04-26-2023 Alcohol Comment Caffeine intake: sod a [facility] Start: 1975 Sex Assigned At Not on file [facility] History of Present illness Narrative 06-03-2024 Coy Ramírez MD - 06/03/2024 1:10 PM EDT Note Date & Type Note Facility 06-03-2024 History of Presen t illness Narrative Marilee Arriaga is a 48 y.o. female Coy Ramírez MD presents with chief complaint of Diabetes and Follow-up HPI: Interim History 05/2024: Followup visit 06/03/2024. She is on acarbose 25 mg 2 to 3 times. A1c 5.3, blood sugar is 96. CGM 14 days 96, 30 days 109, 90 days 107. Interim History 11/2023: Followup visit . She is on acarbose 25 mg 2 to 3 times. A1c 5.6 with her PCP on 11/2023. blood sugar is 160. CGM 7 days 113, 30 days 111. Interim History 05/2023: Followup visit 05/22/2023. She is on acarbose 25 mg 2 to 3 times. A1c in our office 5.3. blood sugar is 97. Lab done. GFR 59. Vitamin D 44. Albumin/creatinine 276. Insulin, C-peptide still pending. I reviewed her CGM from her phone, 90 days is 114 and 30 days is 101. HPI : 02/2023 New patient sent from Dr. Shalini Coffey for hypoglycemia after gastric bypass surgery done 2016. Maximum weight 450 pounds, lowest 203, currently 350. She has blood sugars variable, with up to 250 and do SUBJECTIVE: MEDICATIONS: Current Outpatient Medications Medication Instructions Abilify Maintena 400 mg acarbose (PRECOSE) 25 mg, Oral, 3 times daily albuterol HFA 90 mcg/act inhaler INHALE 1 PUFF BY MOUTH EVERY 4 HOURS NEEDED busPIRone (BUSPAR) 30 mg, Every 12 hours Caplyta 42 MG capsule 1 capsule, Daily cholecalciferol (Vitamin D-3) 250 MCG (51250 UT) capsule TAKE 1 CAPSULE BY MOUTH ONCE A DAY AT THE SAME TIME. Continuous Blood Gluc Developmental Therapist (FreeStyle Samreen 2 Ripon) device USE DIRECTED Continuous Blood Gluc Sensor (FreeStyle Samreen 2 Sensor) misc Use as directed diclofenac sodium (VOLTAREN) 2 g, Topical, 3 times daily escitalopram (LEXAPRO) 10 mg, Daily hydrOXYzine pamoate (Vistaril) 25 MG capsule TAKE 1 CAPSULE BY MOUTH TWICE A DAY NEEDED FOR ANXIETY lamoTRIgine (LaMICtal) 150 MG tablet 3 tablets, Oral, Every 24 hours metoprolol succinate XL (Toprol-XL) 25 MG 24 hr tablet TAKE 1 TABLET BY MOUTH DAILY, DO NOT CRUSH OR CHEW Nurtec 75 MG tablet dispersible TAKE 1 TABLET BY MOUTH EVERY DAY NEEDED FOR MIGRAINES nystatin (Mycostatin) 937185 UNIT/GM powder 1 application , Topical, Daily, PRN ondansetron ODT (ZOFRAN-ODT) 4 mg, Oral, Every 8 hours PRN tiZANidine (Zanaflex) 4 MG tablet TAKE 1 TABLET (4 MG) BY MOUTH EVERY 8 HOURS IF NEEDED FOR MUSCLE SPASMS traMADol (ULTRAM) 50 mg, Oral, 2 times daily PRN traZODone (DESYREL) 300 mg, Oral, Nightly venlafaxine XR (Effexor XR) 150 MG 24 hr capsule 2 capsules, Every 24 hours zolpidem (AMBIEN) 5 mg, Oral, Nightly PRN ALLERGIES: Allergies Allergen Reactions Bacitracin-Polymyxin B Codeine Erythromycin Hives Penicillin G Penicillins Soap Swelling lip swelling to some deodorants Sulfa Antibiotics Hives Other Reaction(s): Unknown Ciprofloxacin Rash Clindamycin Rash Erythromycin Base Rash Maxalt [Rizatriptan] Anxiety Panic Attacks Past Medical History: Diagnosis Date Arthritis Auditory hallucinations Depression (CMS/HCC) Fracture 10/2021 Left 5th MT Headache Hx of echocardiogram 11/07/2022 ECHO EF 60% Hypertension (CMS/HCC) Hypoglycemia Impaired fasting glucose Iron deficiency anemia Leukocytosis Dr. Weber Morbid obesity (CMS/HCC) Osteoarthritis Polycystic bilateral ovaries Thrombocytosis Dr. Weber Vitamin D deficiency Past Surgical History: Procedure Laterality Date COLONOSCOPY 08/2013 ENDOMETRIAL BIOPSY 07/09/2019 GASTRIC BYPASS 02/13/2017 IR INJECTION EPIDURAL STEROID Left 10/23/2023 L3-L5 KNEE SURGERY 08/2004 OTHER SURGICAL HISTORY 08/1977 pyloric stenosis [place] ARTHROSCOPY KNEE DIAGNOSTIC W/WO SYNOVIAL BX SPX 04/1998 RADIOFREQUENCY ABLATION Bilateral 06/05/2023 L3-L5 RADIOFREQUENCY ABLATION Bilateral 02/12/2024 L3-L5 SACROILIAC JOINT INJECTION Bilateral 05/27/2024 TONSILLECTOMY 08/1995 REVIEW OF SYMPTOMS: 14 POINT OF SYSTEM REVIEWED AND NEGATIVE OBJECTIVE: Constitutional: Afebrile @ home; no weakness or night sweats SKIN: No change in skin color; no itching, rash or lesions; no hair loss; HEENT: No HAs or injury; no dizziness; No difficulty with vision; no eye pain, discharge or lesions; no hearing loss or difficulty; no nasal discharge, NECK: No pain, limitation of motion, lumps or swollen glands RESP: No cough, wheezing or difficulty breathing. No CP with breathing; CARDIO: No CP , SOB or fatigue, No edema, palpitations or dyspnea with exertion GI: No N/V/D or abd. pain; good appetite with no recent change. No heart burn, liver or gallbladder disease; no rectal bleeding or pain : No urinary pain , frequency or odor. MUSCULOSKELETAL: No muscle pain or cramps; no extremity weakness.No joint pain, stiffness, swelling or limitation of movement NEUROLOGY: No H/O seizures, stroke or fainting. No weakness, tremors. Hematology: No bleeding problems or excessive bruising ENDOCRINE: No increase in hunger, thirst or urination; admits compliance to medical management plan Feet: numbness tingling , ulcers or skin break Lab Results Component Value Date HGBA1C 5.3 06/03/2024 HGBA1C 5.2 10/31/2023 HGBA1C 5.5 07/26/2023 Lab Results Component Value Date GLU 96 06/03/2024 GLU neg 08/05/2023 GLU 92 05/18/2023 Visit Vitals BP 118/78 Pulse 78 Resp 18 Ht 5' 2 Wt 324 lb BMI 59.26 kg/m Smoking Status Never BSA 2.54 m ASSESSMENT AND PLAN: Assessment/Plan Diagnoses and all orders for this visit: Hypoglycemia - POCT glucose manually resulted - POCT glycosylated hemoglobin (Hb A1C) docked device We will continue acarbose 25 mg with every meal, continue CGM, I told her about small multiple meal snack between, with small amount of carbohydrate like 15 gram only to raise blood sugar when it is low. S/P gastric bypass IFG (impaired fasting glucose) Weight gain Encounter for dietary consultation Class 3 severe obesity due to excess calories with serious comorbidity and body mass index (BMI) of 50.0 to 59.9 in adult ([facility]) Follow up in about 6 months (around 12/02/2024). documented in this encounter [facility] Telephone encounter Note 05-21-2024 Telephone Encounter [...] the medication. Filled 12/11/2017, 04/07/2018, 04/07/2020 at [facility]. Called back and spoke with Sj, who connected me with pharmacistNena. They will look into this and verify the claims and fax new determination to the office. [facility] Note 05-21-2024 Telephone Encounter - MICHELLE [...] the medication. Filled 12/11/2017, 04/07/2018, 04/07/2020 at [facility]. Called back and spoke with Sj, who connected me with Nena hannah. They will look into this and verify the claims and fax new determination to the office. documented in this encounter [facility] Telephone encounter Note 09-25-2023 Telephone Encounter - MICHELLE Cao - 09/25/2023 10:06 AM EST Note Date & Type Note Facility 09-25-2023 Telephone encount er Note OARRS reviewed, Rx sent into patient's pharmacy. [facility] Note 09-25-2023 Telephone Encounter - MICHELLE Cao - 09/25/2023 10:06 AM EST Note Date & Type Note Facility 09-25-2023 Miscellaneous Notes Formattin g of this note might be different from the original. OARRS reviewed, Rx sent into patient's pharmacy. documented in this encounter [facility] Clinical Note 06-27-2022 Note Date & [...] by: EM LÓPEZ Date: 2022-06-27 15:38 [facility] Progress note 06-28-2021 Note Date & Type Note Facility 06-28-2021 Note HNO ID: [id number] Author: Em Fernandez, PhD Service: ? Author Type: Psychologist Type: Progress Notes Filed: 06/28/2021 2:45 PM Note Text: Received mental health records from [facility]. Note from 05/06/21 revealed pt has [...] medical records for scanning. Em Fernandez, psychologist [facility] Evaluation note Note Date & Type Note Facility Evaluation note No assessment information availa [facility] Work Phone: Evaluation note Note Date & Type Note Facility Evaluation note Diagnosis Chronic pain of both knees documented in this encounter [facility] Evaluation note Note Date & Type Note Facility Evaluation note Diagnosis Hypoglycemia- Primary Hypoglycemia, unspecified S/P gastric bypass Bariatric surgery status IFG (impaired fasting glucose) Weight gain Other symptoms concerning nutrition, metabolism, and development Encounter for dietary consultation Class 3 severe obesity due to excess calories with serious comorbidity and body mass index (BMI) of 50.0 to 59.9 in adult (CMS/HCC) documented in this encounter [facility] Summary [...] section and content) DATE CREATED AUTHOR 02/14/2018 [facility] DATE CREATED AUTHOR AUTHOR'S ORGANIZ ATION 02/16/2018 [facility] DATE CREATED AUTHOR AUTHOR'S ORGANIZ ATION 10/09/2018 [facility] DATE CREATED AUTHOR AUTHOR'S ORGANIZ ATION 10/11/[address] [facility] DATE CREATED AUTHOR AUTHOR'S ORGANIZ ATION 10/28/2022 [facility] DATE CREATED AUTHOR AUTHOR'S ORGANIZ ATION 11/13/2022 [facility] DATE CREATED AUTHOR AUTHOR'S ORGANIZ ATION 01/09/2024 [facility] DATE CREATED AUTHOR AUTHOR'S ORGANIZ ATION 05/29/2024 [facility] DATE CREATED AUTHOR AUTHOR'S ORGANIZ ATION 06/05/2024 [facility] EPIC DATE CREATED AUTHOR AUTHOR'S ORGANIZ ATION 06/05/2024 [facility] Goals (unrecognized section and content) Goals [...] September 19, 2023 End: September 19, 2023 Crepe Sole Scourer Relationship Specialty Start Date End Date Shalini Coffey MD [address] [facility] [address] [place] [address] PCP - General Family Medicine 08/05/23 [employer] Scourer Relationship Specialty Start Date End Date Shalini Coffey MD [address] [facility] [address] [place] [address] PCP - General Family Medicine 08/05/23 Crepe Sole Scourer Relationship Specialty Start Date End Date Shalini Coffey MD [address] [facility] [address] [place] [address] PCP - General Family Medicine 08/05/23 Crepe Sole Scourer Relationship Specialty Start Date End Date Shalini Coffey MD [address] [facility] [address] [place] [address] PCP - General Family Medicine 08/05/23 Reason for Visit (unrecogniz ed section and content) Reason Comments Med Refill Reason Comments Diabetes Follow-up FOR RECORDS PERTAINING TO PATIENTS WHO ARE [...] BE BASED ON THE PRIMARY CLINICAL RECORDS. [facility] [employer] [facility]. provides no warranty or guarantee of the accuracy or completeness of information in this document.
--- NOTE | 2024-06-10 12:59 | PM.CN ---
Consult Note: HPI Data of Consult Patient: known to practice within the last 3 years Consult date: 06/10/24 Requesting Physician: Simona Szymanski NP Primary Care Provider: SHWETA BARNES Consult Narrative Reason for consult: left buttock, posterior leg pain Narrative: 48yof who presents for assessment. notes significant benefit from left sacroiliac joint injection, but now notes increasing pain that radiates down posterior aspect of left leg. has continued in a series of provider directed home exercises >6 weeks, without lasting benefit. uses tizanidine to help sleep, but too drowsy throughout the day. continues with other pain meds as needed. cc:: CC: Simona Szymanski NP Review of Systems ROS Status of ROS 10 or more systems reviewed and unremarkable except as noted in history and below PFSH PFSH Medical History Surgical History S/P endometrial ablation ?Z98.890 - Other specified postprocedural states (ICD-10) S/P right knee arthroscopy ?Z98.890 - Other specified postprocedural states (ICD-10) H/O gastric bypass ?Z98.84 - Bariatric surgery status (ICD-10) S/P tonsillectomy ?Z90.89 - Acquired absence of other organs (ICD-10) Social History Smoking status: Never smoker Little interest or pleasure in doing things: not at all Feeling down, depressed, or hopeless: not at all Meds Home Medications and Allergies Home Medications ?Medication ?Instructions ?Recorded ?Confirmed ?Type acetaminophen 650 mg 650 mg PO Q12H PRN pain 02/13/23 05/31/24 History tablet,extended release (Tylenol Arthritis Pain) aripiprazole 400 mg suspension, 400 mg IM Q28D 02/13/23 05/31/24 History extended rel.intramuscular syringe (Simaliaislinn Maintena) buspirone 30 mg tablet 30 mg PO TID 02/13/23 05/31/24 History lumateperone 10.5 mg capsule 42 mg PO DAILY 02/13/23 05/31/24 History (Caplyta) tramadol 50 mg tablet 50 mg PO BID PRN pain 02/13/23 05/31/24 History trazodone 300 mg tablet 300 mg PO DAILY PRN sleep 02/13/23 05/31/24 History venlafaxine 100 mg tablet 300 mg PO DAILY 02/13/23 05/31/24 History zolpidem 5 mg tablet (Ambien) 5 mg PO BEDTIME PRN sleep 02/13/23 05/31/24 History tizanidine 4 mg tablet 4 mg PO BEDTIME 04/18/23 05/31/24 History acarbose 25 mg tablet 25 mg PO DAILY 08/01/23 05/31/24 History cholecalciferol (vitamin D3) 250 10,000 unit PO DAILY 08/01/23 05/31/24 History mcg (10,000 unit) capsule hydroxyzine pamoate 25 mg capsule 50 mg PO BID 08/01/23 05/31/24 History lamotrigine 150 mg tablet 300 mg PO DAILY 12/03/23 05/31/24 History metoprolol succinate 25 mg 25 mg PO DAILY 04/04/24 05/31/24 History tablet,extended release 24 hr escitalopram oxalate 10 mg tablet 10 mg PO DAILY 05/27/24 05/31/24 History (Lexapro) metronidazole 250 mg tablet 250 mg PO TID 7 days #21 tabs 06/01/24 Rx Allergies Allergy/AdvReac Type Severity Reaction Status Date / Time erythromycin base (From Allergy Unknown Unknown Verified 05/31/24 23:23 E-Mycin) Penicillins Allergy Unknown Unknown Verified 05/31/24 23:23 shellfish derived Allergy Unknown Unknown Verified 05/31/24 23:23 Sulfa (Sulfonamide Allergy Unknown Unknown Verified 05/31/24 23:23 Antibiotics) codeine Allergy Unknown Verified 05/31/24 23:23 Exam Narrative Exam Narrative: Psych-alert and oriented x 3. Attentive and appropriate, constitutionally normal, displays normal mood and affect per situation. There are no obvious deficits in memory, reasoning, or intellect.? Skin-no obvious rashes, bruising, erythema noted to the patient's area of pain.? Extremities- extremities are warm with minimal edema and palpable pulses. Lumbar-tenderness to palpation noted in the lumbar spine and paraspinal musculature. Pain is not elicited with flexion, extension, and lateral rotation of the lumbar spine. Range of motion is not diminished with these motions. Facet loading maneuvers are negative.? Strength-noted to be unremarkable Sensory-no notable sensory deficits in the bilateral lower extremities to touch or pinprick in all dermatomal distributions with the exception to decreased sensation to the left L5, S1 dermatomal distribution Coordination remains intact.? Gait remains non-antalgic Assessment and Plan Assessment and Plan (1) Left-sided low back pain with sciatica: Qualifiers: Chronicity: chronic Sciatica laterality: sciatica of left side Qualified Code(s): M54.42 - Lumbago with sciatica, left side; G89.29 - Other chronic pain Plan 48yof who presents for assessment. failed conservative measures, as noted. given symptoms and exam findings, prudent to attempt left sciatic nerve block under fluoroscopic guidance. she is in agreement. meds reviewed. will have her trial robaxin 750mg daily prn throughout the day to see if this helps with sedation. she is in agreement. follow up after procedure.
== END 2024-06-10 12:25 | disposition home or self-care (01) ==
LOC: PM 12:30
PROVIDERS: PCP Physician Assistant; Visit Provider Nurse Practitioner
DX: M54.42 Lumbago with sciatica, left side (principal); G89.29 Other chronic pain
CPT/HCPCS: G0463

== ENCOUNTER 2024-06-24 06:47 | Day surgery (SDC) | payer MEDICAID, SELFPAY ==
--- OUTSIDE RECORDS SUMMARY | 2024-06-24 06:50 | XMS_ITS | CCD ---
Author Organization [facility] CliniSyaz Care Team Providers Care Security Investigator Name Role Phone FRANCOISE BARNES Unavailable Unavailable [...] Unavailable MISC, DR SLOAN Primary Care Unavailable SKILLMAN, DR EM Snyder Consulting Unavailable TRENT Keller, [...] Care Provider UnavailMD Jamey Kapoor Attending Provider JUAN SzymanskiC Simona Sanders Attending Provider Shalini [...] HUMPHREY Attending Unavailable HEMFRANCOISE HUMPHREY Attending Unavailable HEMMERFRANCIOSE Attending Unavailable GERMAINE BOLIVAR Attending Unavailable HEMMER, FRANCOISE Del Castillo Attending Unavailable HEMMER, FRANCOISE Del Castillo Attending Unavailable HEMMERFRANCOISE Attending Unavailable HEMMER, FRANCOISE Del Castillo Attending Unavailable COY RAMÍREZ Attending Unavailable COY RAMÍREZ Referring Unavailable Giedraitis , Andrius Claudioytautadarsh Attending Unavailable Giedraitis MD, Andrius Vytautas Attending Unavailable Giedraitis MD, Andrius Vytautas Attending Unavailable Giedraitis , Andrius Vytautas Attending Unavailable Giedraitis , Andrius Vytautas Attending Unavailable Giedraitis , Andrius Vytautas Attending Unavailable Simona Szymanski Admitting Unavailable Simona Szymanski E Attending Unavailable NON STAFF Primary Care Unavailable Eddie, Jamey Admitting Unavailab le Hugo Morganelrahman Attending Unavailab le NON STAFF Primary Care Unavailable Allergies Allergy Classification Reported Allergen(s) Allergy Type Date of Onset Reaction(s) Facility (1 source) Cephalexin; Translations: [Keflex] Drug Allergy [facility] Repository (10 sources) Clindamycin; Translations: [clindamycin] Drug Allergy 5 Rash [facility] Repository (11 sources) Codeine; Translations: [codeine] Drug Allergy 5 [facility] Repository (1 source) NSAIDs; Translations: [NSAIDs] Propensity to adverse reactions (disorder) [facility] Repository (8 sources) Penicillins; Translations: [penicillins] Propensity to adverse reactions (disorder) 5 [facility] Repository (1 source) Sulfonamides (Antibiotic); Translations: [sulfa drugs] Propensity to adverse reactions (disorder) [facility] Repository (1 source) alot of ATB's, I dont know names; Translations: [alot of ATB's, I dont know names] Propensity to adverse reactions (disorder) [facility] Repository (1 source) Penicillin Drug Allergy [facility] Repository (1 source) Sulfonamides (Antibiotic) Drug allergy (disorder) [facility] Repository (4 sources) Sulfonamides (Antibiotic); Translations: [SULFA (SULFONAMIDE ANTIBIOTICS)] Allergy to substance 5 [facility] (8 sources) erythromycin base; Translations: [ERYTHROMYCIN BASE] Allergy to substance 7 [facility] (6 sources) Bacitracin / Polymyxin B; Translations: [BACITRACIN-POLYM YXIN B] Drug Allergy 3 [facility] Work Phone: (6 sources) Ciprofloxacin; Translations: [CIPROFLOXACIN] Drug Allergy 5 Rash [facility] (6 sources) Erythromycin; Translations: [ERYTHROMYCIN] Drug Allergy 5 [facility] (5 sources) Penicillin G Drug Allergy 3 [facility] (5 sources) Sulfonamides (Antibiotic) Drug Allergy 5 [facility] (6 sources) Soap; Translations: [SOAP] Allergy to substance 7 Swelling [facility] (1 source) Grass pollen; Translations: [GRASS POLLEN] Propensity to adverse reactions to drug (disorder) 5 [facility] Repository (1 source) SHELLFISH CONTAINING PRODUCTS; Translations: [SHELLFISH CONTAINING PRODUCTS] Propensity to adverse reactions to food (disorder) 5 [facility] Repository (4 sources) rizatriptan Drug Allergy 4 Anxiety [facility] Work Phone: Medications Current Medications [...] evening. Take with meals. 0 04/25/2023 Active [id number] 200 actuat albuterol 0.09 mg/actuat metered dose [...] once daily cholecalciferol (Vitamin D-3) 250 MCG (71007 UT) capsule Indications: Vitamin D deficiency TAKE 1 CAPSULE BY MOUTH ONCE A DAY AT THE SAME TIME. 100 capsule 3 01/24/2024 Active Start: 02-06-2023 take 1 capsule by mo uth once daily cholecalciferol (Vitamin D-3) 250 MCG (96674 UT) capsule Indications: Vitamin D deficiency Take 1 capsule (250 mcg) by mouth 1 (one) time each day at the same time. 90 capsule 3 02/06/2023 Active Continuous Blood Gluc Receiv er (FreeStyle Samreen 2 [place]) device (5 sources) Start: 02-23-2023 Continuous Blo od Gluc Signals Intelligence Analysis Manager (FreeStyle Samreen 2 [place]) device USE DIRECTED 02/23/2023 Active Start: 02-23-2023 Continuous Blo od Gluc Signals Intelligence Analysis Manager (FreeStyle Samreen 2 [place]) device USE DIRECTED 02/23/2023 Active Continuous Blood Gluc Sensor (FreeStyle [...] sources) Polyene Antifungal Start: 05-06-2024 nystatin (Mycostatin) [id number] UNIT/GM powder Indications: Rash Apply 1 application topically Daily PRN 60 g 2 05/06/2024 Active nystatin (Mycost atin) 047966 UNIT/GM powder Apply 1 application topically in [...] 2018 12:00am take 3 tablets by mo [facility] at bedtime traZODone (Desyrel) 100 [...] (BMI) of 50.0 to 59.9 in adult ([facility])] 06-03-2024 Chronic Other nutritional; endocrine; and metabolic [...] on 06-03-2024 Glucose Blood, POC 96 mg/dL [facility] Laboratory - Hematology and Cell countson 06-03-2024 HbA1c (Bld) [Mass fraction] 5.3 % [facility] No Panel InformationOrdered By: Avis Ponce on 06-03-2024 [facility] URINE CULTURE, ROUTINEon Bacteria identified Cx Nom (U) Urine Culture, Routine [facility] Bacteria identified Cx Nom (U) Mixed urogenital corina [facility] Bacteria identified Cx Nom (U) 25,000-50,000 colony forming units per mL [facility] Bacteria identified Cx Nom (U) [facility] at[facility] identified Cx Nom (U) [address], [place] [id number] [facility] Bacteria identified Cx Nom (U) Engineer Of System Development: Yash Marcum PhD, Phone: [phone] [facility] CLINISYNC [facility] MR lumbar spine wo conon MR lumbar spine wo [facility] [place] [address] MRI Report Signed Patient: Marilee Arriaga MR#: [id number] : 1975 Acct:[id number] Age/Sex: 47 / F ADM Date: 09/19/23 Loc: MR Room: Type: [facility] Attending Dr: Simona Szymanski ONLINE AFFILIATE MARKETING MANAGERJoyC Copies to: JUAN WassermanC Ordering Provider: MAHIN Wasserman Date of Service: [...] Beckford Jr., D.O.09/19/2023 2:27 PM Dictation Location: [place] [address] Transcribed By: [facility] 09/19/23 1427 Dictated By: Linden Beckford Jr DO 09/19/23 1412 Signed By: 09/19/23 1427 Normal [facility] XR pre/post mri xrayon 09-19 XR pre/post mri xray [facility] Main [address] [address] XRay Report Signed Patient: Marilee Arriaga MR#: [id number] : 1975 Acct:[id number] Age/Sex: 47 / F ADM Date: 09/19/23 Loc: MR Room: Type: REG CLI Attending Dr: Simona STOCKTON Copies to: MAHIN [...] Beckford Jr., D.OArianna09/19/2023 3:08 PM Dictation Location: [place] [address] Transcribed By: [facility] 09/19/23 1508 Dictated By: Linden Beckford Jr, DO 09/19/23 1507 Signed By: 09/19/23 1508 Normal [facility] ECHOCARDIO M/2D COMPLETEon 0 11-07-2022 ECHOCARDIO M/2D COMPLETE Patient: MARILEE ARRIAGA Exam Date: 11/07/2022 : 1975 Gender:F Ordering : DR FRANCOISE MARTINEZ Admission #: [id number] Family : Order #: [id number] CLICK HERE TO VIEW EXAM ECHOCARDIOGRAM REPORT [...] Shay Masters M.D. on 11/07/2022 at 19:16 [facility] Coding Summary.on 05-04-2022 Coding Summary. CD:[id number] Gh0bWw+PG hlYWQ+CA3CLPQxI75fwBBvzO8QE8d HHK5ITZSWYIRHCN7FTL0qzVH7PIaz W4RvpfAv AoveoXOzVN74VIc3KHB7xOerMUcdi E8knURzX0c8IwQkCM09jR45GDkdUE YxLjJ7PpZpbdpheQLe C0ulVpKevYDoKul+PHRhYmxlIHdpZ FVfOLvoMIRpXuGkqDywMB2gLd3tOF VyLWNvbGxhcHNlOiBj m0fpVXAtKXndWY2clGrfK0ZalEF0M TZyf8q4Hj05jMH+OSEjJAC1vYmwHT bey103MnTxc1aeHPU9 aUPfWGelDOX9D74rb6U2PQAiABZmS HK5iFD1fM3riZejarioS2RttHKpLp U8TLE9aMMvuQ6jcXhb fmbnrW8fIcb+B05PGZ2QJEBUJL6VK bh0N2DvXvgldNK+EM41YJXpZY41zB RlnKEcs7yxgAk7GzMn BYFxBHB2nMsgZVxbp1GqLDYfI83fk PYnu1R6XAXokQmtpMHtOmOqvTA6pJ 4pGPwccezrd8gfhndw Vxkmf3vajj18yU06Z60rWTqwHBXlC BD5NGPeFADbfZytkg0eqQ3pNn0+ID dpm0ncv0crmWj2AiPv VRPifkVjdTghHZZ1k5IgKz78A4Irs Joec6ZnDbu5yi74iKCxt8G4mQB7BC hmBUJzmW8xMUirAvH8 HEXqEvDzuI80bCMeYIkiEx8ckFdya OusIV6uPTNrtaczKHOiaP4pAGVszN BghThrIX3zLDQjgvno o066CcMiXLS1SHWzsIMnN9WjhA7iM qDxWMTbBWOvF9XkpVCsTKjaP487CK uvHjR3OFGykeWlI6Rd HZMyxInnYuF5x8A0Ui7Wp1LdgdueI RK7DHvkVHO3EeC6TjXkHzA0W5ZnBl r4CMPnuUqaVP5gR3Kv MURuwobyokrbyLK0OOYnDMVxfS69b QAmUWteBa8xh6W7w159AGIhDDTjsL 47Qc9odYprTARniIYO eP9krfiii6ttotsbRbFxCZZbYBb6F Nq1SCYfrQnrZsGkNKE3AcT6VTW3rZ SxrL3qzPmevilbdF7e Oyc+M90jiV3hRPB7PDH7dckbCRLhu pYvQR63OH32I1DePyohsUGayIB+PG EnevZogRlvSO8lSqBt k6avh8HxLJxsZ0ZlFQSyOWthDir6Q MMjWGY0kEM4sW5bUVJcPOmsp9L7vN Y5W9YbjwNfoh5sm3kn XCRjUYfyJ81krSSzw8B5YBBncOV2T HEtqUocNpCdoE78Ijx+PGNvbGdyb3 JiSwzha8jpf7hcsOt8 AcMtGBWtydHwrLqcZQX9f6OyKp21C 29sIHdpZHRoPSIxNSUiIHZhbGlnbj 3bfW8eNl1+PGNvbCB3 tRF4vV9aALXoDvN1RYopB602UdUxi UHdHqtla7dxm8emgZg0VqQkASEizb NnyGtaXGH9k7DrJz88 Z63mQLuiKCKkNILeIMZjADByeQaco i4qpY6kUn1+FN4fa9xkra54qH01xH I+CTWrNXO7rZuvHHim UMPozC6aHGddHwL3DRGpLpUgzS48o GKbPYdzNx0mxBpqmVwnUN6jNJJslz udd415GjGor7rjUIKo sYAqPUwdUCL1F77zw9E0XGQpAGLxJ WY2hRV1tH2orJwrydpavRAboBxbbc LgjOkuILapXEnlZ761 XHHngOprOsKllMryotLpIeIaFIb3S 2MgXcg6LSIyaTmeHL6rpCQgYOzgYi 8ieRxynLgaMW1eIUJx imhny516NmXzh6zzALGqhMYfMIdlJ UN4F18ch0H1MEWhHVBhSVQ1sQN6fD 1hbGlnbjogbGVmdDsg jkMtjWylIEsaYEppH582SOZvsOspB hWvsbLlCACtzLO0HP78AW84cMIqy9 A3gNF3R6OnKGFuiyle rjebjFF4WCLwIPSifY71De0qpHlaH n4zQZDvHWP4JAFpmGNeP0JweZ6jJi KqUIEnVFOeR7RidKJp GZmrY636VGwhTmA0TFVpldVqW5JfP RIndGclDzF9o8N7Ag1EW9J7PE80ER 13wEMyo4G4cBC7Q0Mh LTInqcotewhmkKS3YCBqNWEiyQ75D d2zyOlfOz5sEYEdSZK6RZEedXEqP8 CfpH5bZyEcPZVyOLKy H6NklSWzFLsaC744CLhjUaT5HLVul uWmD8GiPUByaMfmObL3g1V3Wp0ENH i5QL86NH18pVBfx8I8 jCW5U7UzMQZftthdhcoirAZ1WHVbX YYuxJ30Fy2rxNkeSr9bTKCuEKI1AN XrbEAzC5LltV9jWeHj JWJhKSZqV1VrsVZnNJcpD061UUumJ rM1GDBarjFkU7SpGXLjiLhlPaH9p7 L2Uo5XOUWrFG30GYZ8 ePA8VC68CX46U5WhShqjjOUzoZU+P HRhYmxlIHdpZHRoPScxMDAlJyBzdH gwSE9lIe9aDOTdBJOx zMejkTUvOqVci6ezESErUVviOK2dk JswI6EgxGJ5XRYzd5a0Ft58F85aA6 JvdXA+WCHjhKR0tIM5 eF1aVwKkJfC4SRvaV392BoPjeHSzY drzh4fgt5qauBn0HyE7CLZsdtPowP loTRE2v4UgVt58U70k FRmiAXXsJYJqBSNrGULicAxjyc8bg G9wIi8+FCKofTQ8gAA0rO5vJgMpAj J5CPuyE537WnOgbADb Etwoo2hpn7sayVz3LwGeWHOkivUou CtwGSS9q3XgQj35U9UktBadr5NtFu x6sc14cQTmd3V4yZO1 W5JhUISopkzvfXSigLfjPB3fSAZvb mbgSMYrhV0eRVYbC7a4XzYbTiU5CU paV9EdajQ0IRFkfEQx MDykYES8V76nf2F0QDIwGRNlPTJ5o XI9dQ9jvJkgdvchlZJwgCmryyVquU mzYRbhQRcrX693ZHOo cVuqENUvmR7mGHPnpIDkfEvuDF6iK XKihbskMtWOGGgLTQHUYY6FWSXROb MXIT47EL24dLEjj4C1 bIU2V2AiTGSlxiuqgweglGJ0YLJkO HKjbX55qBLgNKjzYh1zt8X9l174TK DgJDGuuW31Cp7bfAok KTLiwHBRqY7kdkhas3gyczclQaPyV ANxVWm2OOx8KKPmmFxgRtTjRGU0Dd L3LJW7bQCqaP6tmWik braupS4nGdp+AKKiKyAtLRs8QNetl GQ+OAYoMXG6fYgbDAovHOSgkU1hVB VsE1a2LqBpLgC3MEdy Y2AdOGMmaozzQi57eZ5wSqRrOiW5W QspH3WhbiJ3PFQfaEDlJLnqPSG5F9 7we1H8RBGdQDMsCHT5 nWQ6kZ4veVsexiwtpAIkvJzfchBly IgxDDvzVQhvI847UKGjnMlhSyK5KF wnVNOcBO69HC64qRWe d7P2oAI0B3QlDBTmzkvwqthcoAK8G MLuZBUdaA96uCPgOGzaRb8eu3D6q3 73ZSJcOKXrkJ94Wp9b cHytPFYtpAAMxE2rwqpsc0ttdjwtD oTwAUKlDOa1WUk2URDvkPdcQcEsRR D1IiA4SGO2gVEaoM6s sHmaikkicP0fPzc+IhRlTYprER06A I89cXSqv2A0pTY9J4EjGDGhvzxizc eejJO5XKCdPGQhuQ24 lLHlLZzeFm3fk8O1z761SNQrYZVqt H70Zz7gtMmhZXDglGBQkT2ibdxwb4 xvcjogIzAwMDAwMDt0 JMk7UMTfqRmyJpXrDQX0TwA0NNE3d EYokO3ixTqqxpxlhM2tGob+UmVjdX VqeL3mHL88HE94Y2Xt PjwvdGFibGU+PHRhYmxlIHdpZHRoP IkuEMByVsAxsEsmKV9uKk8nZANeWB YrrHfnnVAyJfDtd7rm DBMdZEisET0iwNvvV2JoeZK4HVVnb 9l1Hd58S42hD3WbbDZ+YRFibIA3bT K3kU4sFkQhXnM8STlt L576LjLrgJZnFiqfk9hvv3erdUw3E dQmNKBpxjAzeVgqOGA9r0TkGs15W3 9sIHdpZHRoPSIyMCUi JWKahMrjeo3qhP4tNl2+MMJqgUJ7z MN3uT6jKaBfRcE9FEnvB396EnNtjK OvVrjbW80vM8CjoSH+ UWPjKit8ZNPswRapUQ5gfGWqAOkiF n3qCZY8PnIhPjUvBCfgX5GiWODcja ejavcejXT4OMGfANWm eV29Kn4exNudLz8ePJQuSNB3XPHpy OLhM6ZlxZ3zHhTwFWUhKXHxP9ZvrR NyQIjzL336CTwwLfF1 DQClndCtG0AgUQWvgFkxEaC6i0Q2S r6NuNiiyYVoLE3hBlPaNQg4Q5PvLj q3BLEubGmqBD7zwYOc CKrkUc3udMtzgHinPW7vGOUzlykar 864JtXno1bwTMNbzRGhFPagKYE9L6 7lq1O0UKEyGBXeFXF6 kHB8cR2tfSbsgiekpROimUvlrhYvp ZlrARikVEupM720YCOfoUieOvUHWj k4Y9GoQaa9CSUohUuc WZ0vnIJwHYzyUw0xsCcpxWdnEU2tN CCosgzjj801XmEsa5vuJLVaqYOnMK zcIOH1I41rc9C1QMFc HEIvCES2wJJ3gQ5csLimyeohjENot NxmfyAzhZjyLOjbRNmyL714OEUppI ksAi8RKnp5M8XxQqy4 CDSpgXnqMM6dcUOeWOvaEz9ztXerd MkeKG8zVSQnlqboo647StPxu3rsHG MnnJHiOZdcRDM8D22t k7L8TVFzLFAsYDM6bWZ7oV5ewOfbv jogbGVmdDsgdmVydGljYWwtYWxpZ2 46IHRvcDsnPlBheWVy OjwvdGQ+TK16bc87W1PvQavkNaj4C XVaURO4qBK7rG4qUDRfBVvru5T9bK V6E0DqyxQmps9us5fu YXBz (more content not included)... [facility] Consent for Treatmenton 090 Consent for Treatment [id number]#[id number]:127 [facility] Outside Records Officeon Outside Records Office [id number]#[id number]:127 [facility] Physician Orderon 04-14-2022 Physician Order [id number]#[id number]:127 [facility] Coding Summary.on 11-12-2021 Coding Summary. CD:[id number] Gh0bWw+PG hlYWQ+MG5EOUQoN12liSHwcU2BB5m UZF1LFCVBSXGVSZ7TCW3edBR8DGgh Y1OmjzZs TortrDGnJW99NZw3QVN6kGvhNAudk K7dmSTcN3s5KrZrFG02nQ70ONolJX MpPjN5ZwLjhvreyYJh P7moKtWahZVhQeb+PHRhYmxlIHdpZ QLqRUkcEOBgUqPzxFleFQ5rRu4uDU VyLWNvbGxhcHNlOiBj u5dyDIGdCWzkRR4quGavC3HpsOL2P HXxo2o3Sg06hPB+QUBgDSU6aNgnKC pvf955KqTfu8ifULX2 tHHoWDxkSHN7N08uv2A0ETPkIRYmA DO5dBK3zV9zkYrgtpowI5QhtMMzXf N9OAY7mPCjpO9yfWjo litulS3lTkq+V78YGW4GYDVWAU0JD xw7A7UwIrbftBF+WS24AOCpUV50gU JvuPQih5owdKq3GfYl VHCtHTC6hHlbZMucd6UuHNAzV89bx MOqf7I3ETMltUanvRRsTxAtrAZ2cY 1kORyudflmr3ezibim Crsqf0xvge73lJ94R81cFMgaKJHhZ EO3YSGvEJInwJepje4miP4pQw3+ID dvy2vlv1egoKo4HySc PQLjkkIthCvbXWR2n3WwGi67E6Xor Xogp8WuFpb2iu86cOTjp0Z7fFP1VI ddFBTelC7cRHgeIgL5 FWEsBfKvhJ07gQFkFFzvNd1vgBgvg FyiDK9vLLVcnrctXZQrlF7fGLRslB MyrPffTP0mSCCrwldb d469WjFbYAM8DEFtyGCsD4DdtU0xH sLmDZMmVRRuI0FgcKYjXBkcW362SA xxLnU5FEIjckLbT0Im KUYypYyqTsX0d5T7Ku0Pb9CmhhzkO YI3OMujIWArChE4IlBxZlJ0F6JoJz e1AFIjuUyzQG7kH5Bb DDGwuwacpqubjFV7ANRiBSXudZ78l KJlFGfzNd3nt3I9m749TZPcDUBhkC 53Og6rcSreTGEfcKXR fV8rsbuzw4wfgqkjCoHlUXVyOIw7I Ne1UJXfwIbfCbRoNDQ0EqI0MQW2sA OliG3riMbdozcfqJ0y Oyc+M88ffQ6iYZX7RWP0fpddACLae fYwRO06UD95Q3VbBftdkNSmsNH+PG ZkgvAedTwgHX9pUpZu o8vms5NcTTlvN5GnVACvKDqlBml2S PCyFKI9uNE9cC4eWENmHPeli6H1bB L9Q2ZdvzZwne7ja8tf YNGmLGczY47wbHPuq9X5AVKilZB9W JUpeYtgZmDudM75Key+PGNvbGdyb3 ZpBhraz3dec8utjGh5 NfVnZJRhxnQmoKmgTYO3o7HoXh31B 29sIHdpZHRoPSIxNSUiIHZhbGlnbj 9slQ5iPo8+PGNvbCB3 nND7hQ6pGEZyYkW2GVosG187FnFld PJdTvsom8byt4hitTa6QgBrTEGlxa EhfLnuAKQ2v2GqHg10 C23sUYprHNDgEOZdVGYyHCLzmUbkg i4rnT7zAd4+US7iq4zxwk32gP47nN I+PQZiBUA1aYgtOZnx YZFxkM4bECydYnR8EFDaRoCenI22d ZNbKCnsMh3elSafeOpgFQ8fDTZsgs kjw265QeHsm6mqOWJi uMCkXOmzZJN3P02zc5Y9JXSgCJLyA NU6sTS6eZ3boGymakgquJQwsZxxww PqaNieBOwgQUogS770 REOunFilMrEjkEkqocEwZdCfNKm6K 0RwOjq0YAKolYvwNO0psEZsCTtlYn 7iuEgzgJemAJ0cSJXx ezfyt533KjRkb2oiIVQndEPhTAywI TO5J37zd9H6CLWcWRJpUHF7aGY1vM 1hbGlnbjogbGVmdDsg gnPuvUfmRVcmTNjsF308VSMzmLvfP tUgqsTcCUOopJB0VK93JT05bAIcg8 V9rRH8I6VfLCQnudgv fixovEW2JNLeVFTxgL48Jk1diJjoT a8eMWYwERQ5XXTpbIQmX5UxlZ2xFq GaKMPaRGPlY3InaHJa TXnoL219TCzcScE3AHZoylFvJ6RuJ AYruAeeInA0j1J3Yx2DE1Z8VQ66TR 46tJCwt6T3kID8E7Sp LGLkugzksaecnZB5NZDyPOLvdL72L e4scRzcKj2rLXHvZDV6ZKDmzPBpM7 DnoB9tKgGuSESpAJXk N1TpuEOeZVfrV189WPmvReX8FUTku aEoD4CqQEFkgPyeCwV5b6M5Sf5AVQ w2SW25VU04bPDvh8M5 vOY9S4XzTOJpfqgnnlzyiRS2KODpH XZtmP39Vz9zaApfOj0iVZNkRCZ2RI HlwTUsK8CpnZ4oYgBn ILIhNOQuB2FnkNPiDSomG914JHxfW lG6ZIFwntOyF5PeDVCttTzgRqL5l9 K2Hv9LDFNnSN38WRN7 mFD2OZ86ZN69K4FnAdclgPNaiRN+P HRhYmxlIHdpZHRoPScxMDAlJyBzdH gqLZ2gWe1pBPIdLXNp vVvqzHFcLrGrz5lfYXPaUZldHI2sm YibL2QimWK2AVAdg2a6Mh59B23iF0 JvdXA+MLApjYL7aFO4 tW7nQlPyEsJ1VAbvD938KbMfcLJcX nbfd1uos7gcjIi2VcK5CMHpyqTxeZ cfISM6a2RdVa48S59h KOhnBPUhGADdHFQuSSSquBgsze2km G9wIi8+BDOpeIM5kJE3eU8pTfAxTs G7KNjkM328FbLwmOZf Itpig8dai4nvqUc2OiNdDOVeayRaa WqcKKT7g0DsDs48E6PsqRvls8TdOf p8ny44nQQys8O1jJQ4 C3AeNVVwavlvvUBmbBssAX1hTQYah ofpNPEanH7nZWFwB3p4AcMyRoN4VT upA6GlfgF2YHVohPAz BHkcVSU8Z24lc3R1JHDcRLVkQSU9s RZ1iG5lkLtimegqzTNhlGkolcGruX hvHHdzKNikI745FNFp vTmzDDPltF7iQLEmyFHujDbgLR5rJ YEmfvreRcGUEXtYBTLUTP9LBXTCKw ONSA49PO09lRKiq0B4 yQW7F1VoIJEixqrvxzhieEV3PUKgI DNjsX42hKMtSKjmRy4uh3Q8i643ER ZlJKDchM59Yq9gcSlw WZWlbMMJrT5tqborx5zysfvkVkEjY LUbXXt7ZTk1AARxpEfoWpZjHWK2Fn I5UFE2xXBiaZ7llEfy wjehhR4bUto+XGQgNuTlQOa9WNmqs GQ+KNXsIMA2wRvpAOnnLJRhpU1wVG DkV6j5IcIkWvO4ZZbi X6PuPEFjuiltQw83yW1cOvNhCvB4P AncU2LpqtN1VWGjtGTtRMmvUBH5F7 6ij1Y8LRHrFVEkTQR8 vCX1yK5heQezmmeusDCbdRpxhdLwu PmpMPthAIsdA489UJPpyLfiKqTnPH thQXLjDN38BG18rDHa j5K9aEL0O7OnGSIjtnrdkcbjeYS1P BGkKFKddK83eCSnZGwmTg2ij1Z2s9 83UUOmBLYcoU68Pz3n eFceLAEqyVWZtE1wbezcw6ymnzphL bXlOKKoFMw3WZq1YFCnbVguAzHhTA G0MbL2ILV6fJKvgR5f oYdykeintJ6jIzn+OuXbGXtwXN13F A57kSDba3H4jDT9W8AwLCYaxsmvus cnmDW5FVAeMJWyhP30 sORlSZcoSt5iu1M4x434VYQzVHUfj Z18Hy7npWneENEybQEZcR5yfunqv9 xvcjogIzAwMDAwMDt0 WLe9ZMOiwZuyAvMaYCR4HcT3YIF1y OKquS5wbWuwhofuwB2gVmk+RW1lcm nlqkR2IC67YS10J6Pr PjwvdGFibGU+PHRhYmxlIHdpZHRoP DugENNhLqVjkSgwEX5yCv2dEUOdXC XjsDcirVGvKnWdc8qn FZAjHEisDB9dlXjpJ3CdtFY4LVPli 8p0Gv16R96fC3ZwlPR+HFKjmUJ3iF T1oJ7aWvGfVzY2YEnq F168JnUxzAXcJddfi7uzl2uhuUq1O sYzEUHwhzAhoVpvTSX0l6AtRc08P8 9sIHdpZHRoPSIyMCUi IDGdrGlbca5odA4sQv8+HSYmmYK6p IZ0vZ4tTuWnTrH8EXlsV597MfGivN VqAtnsE35sT2VpxHU+ OXCkFda1FLDxzVqnFK4eqETwLZivT q8nPKS7HuIdNxSaYFriA7LrXULasf bbcqoyzBR2UFUpQCMi tV34Yc6atWagQv5rMPQqYQQ3SRNkq OKkA2NbqH6pExLbGTCwPMVtA8DfxK KsWNrmR423CYuhGhY9 ATCvbtEbD0HyMJKvmBryJnZ4s9H5O t5FnQkgoCDyPK1bDmReOPs3C6CrBr s0OQSgzEsbJL2vgFNp ILneSf5kqRxwdBprLY5qHCWrkdugt 908KbLnj5hwNKKrwTCtLAjvBZI9T3 5ia7G8TMHtKHViFUH4 tUB8rB1qdSeedeaykYVrhIyuusIwi TtdVHnwPGndN922RTWmnIaeRdRMUs w7V4IrTid6TESufMpb KT1ofHWyBBmkGz5tqStxlOvbMW0uS QKccqlkt127ViLul7qdCASqvZWgSF edFWH2X76np6E8XPWj HEDmUWV8pDZ0nI5kgIqhifrrvSRld YaxthUbnKizEVdkZCewY763SZHauY ymEh1CNpi6I1EgLfl9 INKmbQjvIZ5ydZWtLWmoLd4vkTezc FyfYK2tOIXmndgpl395YvNmh1ggKR FwlOZhZIfePHB5N53c o4Q6XAUxTZUyWJK6xPH5eL9dwHnqk jogbGVmdDsgdmVydGljYWwtYWxpZ2 46IHRvcDsnPlBheWVy OjwvdGQ+WL38lq50P5YvXrfzLnt2U ACdUJJ3iLT2uN5tCCJvSZuus1D3zM H3S6SrfuPvtb8eo9ge YXBz (more content not included)... Normal [facility] Consent for Treatmenton 10-19 Consent for Treatment [id number]#[id number]:127 Normal [facility] Discharge Instructionson Discharge Instructions [id number]#1.00CD:127 Normal [facility] ED Clinical Summaryon 2021 ED Clinical Summary (Inserted Image. Maria Del Rosario ble to display) [address] [address] ED Clinical Summary Person Information Name: MARILEE ARRIAGA [place] Age: 45 Years : 1975 Sex: Female Language: Serbian PCP: FRANCOISE GAY Marital Status: Single Visit [...] 16:00:59 11/05/2021 16:00:59 11/05/2021 16:00:59 [facility] [address] [facility] [id number] PHYS DOC NOTES: MEDICAL INFORMATION: Prescriptions Given: New Medications [facility] #[id number][facility] [address] [place] [id number], [phone] acetaminophen-hydrocodone ([place] 325 mg-5 mg oral tablet) 1 Tablets [...] up: With: Address: When: [address] [place] [address] Business (1) In 3 days 11/08/2021 Comments: Return to the emergency room if your pain gets worse or any new symptoms. With: Address: When: FRANCOISE BARNES [address] [place] [address] Business (1) In 3 days DIAGNOSIS: 1:Avulsion fracture of left ankle; 2:Sprain of left foot Normal [facility] ED Note-Physicianon 11-06-19 ED Note-Physician Basic [...] and crutches was given. Patient was given Houston in the emergency room. Will discharge patient home with Houston and follow-up with Ortho. The OARRS report [...] needed for pain, 10 tab(s), Refill(s) 0, [facility]/pharmacy #[id number], 158, cm, 11/05/21 13:26:00 [...] Foot 3+ Views Left Medications Administered Given Houston 5/325 Tab, 1 tab(s), Oral Disposition Plan Patient Discharge Condition Stable Discharge Disposition Discharged home Discharge Prescription List Prescriptions Houston 325 mg-5 mg oral tablet, 1 tab(s), Oral, q6hr, PRN Follow-up With When Contact Information Em Mir In 3 days 11/08/2021 EDT [address] [place] [address]- Business (1) Additional Instructions: Return to the emergency room if your pain gets worse or any new symptoms. FRANCOISE BARNES In [address] [place] [address]- [facility] (1) Additional Instructions: Patient Education Crutch Use, [...] Tab, 100 mg= 1 tab(s), Oral, Daily Houston 325 mg-5 mg oral tablet, 1 tab(s), Oral, q6hr, PRN ondansetron 4 mg/5 mL oral solution Prozac 20 mg Cap, 20 mg= 1 cap(s), Oral, Daily Prozac 40 mg Cap, 40 mg= 1 cap(s), Oral, Daily Qvar with Dose Counter 80 mcg/inh inhalation aerosol ranitidine 150 mg Tab, 150 mg= 1 tab(s), Oral, BID SEROquel 100 (more content not included)... Normal [facility] Comment on above: Result Comment: Elec tronically Signed By: Trinity Novoa, Tyler Petersen\.cedrick\Date and Time Signed: 11/05/21 15:39 EDT ED [...] 08/04/2001 Document Revised: 07/20/2018 Document Reviewed: 01/27/2017 [employer] Patient Education ? 2019 [employer] How to Use a Stirrup Ankle [...] the bra (more content not included)... Normal [facility] ED Patient Summaryon 022 ED Patient Summary (Inserted Image. Maria Del Rosario ble to display) [facility] [address] [place], [place] [address] Patient Discharge Instructions Person Information Name: MARILEE ARRIAGA Age: 45 Years Arrival Date: 11/05/2021 13:19:01 Discharge Diagnosis: 1:Avulsion fracture of left ankle; 2:Sprain of left foot Primary Care Physician: FRANCOISE GAY Provider Information Primary Provider: Tyler Petersen M.D. Advanced Machine Bender:None The exam and treatment you received in the Emergency Department were for an urgent problem and are not intended as complete care. It is important that you follow up with a doctor, nurse practitioner, or physician?s engineering inspection assistant for ongoing care. If your symptoms [...] Instructions: With: Address: When: [address] [place] [address] Business (1) In 3 days 11/08/2021 Comments: Return to the emergency room if your pain gets worse or any new symptoms. With: Address: When: FRANCOISE BARNES [address] [place], [place] [id number] Business (1) In 3 days In the [...] opioids can be used to help relieve zvmrbarw-ve-qlspzc pain and are often prescribed following a [...] Administration (www.fd (more content not included)... Normal [facility] XR Ankle 3+ Views Lefton XR [...] FINAL REPORT Dictated: 11/05/2021 2:04 pm Ericka SIERRA, Rony Medrano Signed (Electronic Signature): 11/05/2021 2:04 pm Signed by: Rony Barnett MD Transcribed by: KAIDEN Technologist: Normal [facility] XR Foot 3+ Views Lefton 10-19 XR Foot 3+ Views Left Exam Date/Time: 11/05/2021 13:50 EDT Reason for Exam: Fall Report Refer to concurrent left ankle radiograph dictation. FINAL REPORT Dictated: 11/05/2021 2:04 pm Rony Barnett MD Signed (Electronic Signature): 11/05/2021 2:04 pm Signed by: Rony Barnett MD Transcribed by: KAIDEN Technologist: Normal [facility] MRI BRAIN W WO CONTRASTon MRI [...] by:SUMANTH Garciaigned by:Margo Mendez MD02/13/18inal result Normal [facility] CNDSon 02-16-2017 CNDS HNO ID: [id number] thor: Mark Anthony (Res) Raghue: General SurgeryAuthor Type: ResidentType: Discharge SummariesFiled: 02/16/2017 11:44 AMNote Text:[facility] [place] [phone] or ([phone]) [facility] O N F I D E N T I A L I N F O R M A T I O N -------[facility] DOCUMENTDISCHARGE SUMMARYPatient Name: Marilee Buckner Date: 02/13/2017Discharge Date: 02/16/2017Attending Physician: DENIZ Pfeifferrincipal Diagnosis: Morbid obesitySecondary Diagnoses:Patient Active Hospital Problem List: Obesity, Class III, BMI >= 40 (morbid obesity) ([facility]) E66.01 (02/12/2017) Morbid obesity ([facility]) (02/13/2017)Operations During Hospitalization:Laparoscopic Crystal en Y gastric [...] needed.Future Appointments:Future AppointmentsDate Time Provider Department [place]02/23/2017 2:30 PM [id number] LUNDBERG GENBMI GENS A/M 03/09/2017 11:00 AM [id number], KASEY (PHD) GSPSMN GENS A/M BL03/16/2017 12:00 PM [id number] 2 GENBMI GENS A/M D04/06/2017 1:45 PM [id number]-FKCXCZSLWRENÉE LUNDBERG GENBMI GENS A/M D05/16/2017 10:30 AM [id number] TAM GENBMI GENS A/M D05/16/2017 10:30 AM [id number] [place] GENBMI GENS A/M BLDPatient will follow-up in clinic with Renée Lopez MD as scheduledabove, or sooner if the need arises.Electronically SIGNED by Licensed Independent Practitioner: Mark Anthony Jean MD Normal [facility] Glucose POCT ([place], [place], [place] A Use Only)on 02-16-2017 Glucose mass conc 105 mg/dL High 65-100 [facility] Comment on above: Performed By: #### G LUPOC ####[facility] [place], [place] [phone] NURSING PROGon 02-16-2017 NURSING PROG HNO ID: [id number] thor: Lilibeth Ortega (Rn) Doroteo Santos: (none)Author Type: Registered NurseType: Nursing Progress NoteFiled: 02/16/2017 11:37 AMNote Text: Nursing Progress NotePatient Name: Marilee SmithRN: [id number] Location: [id number] _Daily Note: Patient has been discharged home; [...] note was completed by: Lilibeth Santos RN [facility] NURSING PROG HNO ID: [id number] thor: Lilibeth Ortega (Rn) Doroteo Santos: (none)Author Type: Registered NurseType: Nursing Progress NoteFiled: 02/16/2017 10:27 AMNote Text: Nursing Progress NotePatient Name: Marilee SmithTracyN: [id number] Location: /[id number]-[id number] _Daily Note: Doing better this am, able to take all of pills and drink theKphos, took a shower, so taking in more po, pain controlled, no emesis, nomore bloody stool, ambulating VSS, on RA, expecting to go home today,continue to monitor.This note was completed by: Lilibeth Santos RN [facility] PROGRESSon 02-16-2017 PROGRESS HNO ID: [id number] thor: Hiram (Romain) Teresitaice: General SurgeryAuthor Type: ResidentType: Progress NotesFiled: 02/16/2017 8:02 AMNote Text:General Surgery Progress NoteName: Marilee OlivierirMRN: [id number]: 02/16/2017SUBJECTIVESubjective : No acute events overnight. Last [...] lb) LMP 01/27/2017 SpO2 94% BMI 62.73 kg/h0Ddapbr/Output Summary (Last 24 hours) at 02/16/17 0759Last [...] with morbid obesity now POD 3 s/p efqiefoqmhfxWmxk-lv-T gastric bypass. Bloody bowel movements resolved with stable H/H.- Phase 2 bariatric diet- Heplock IV- Wean O2- PO pain meds, hold toradol- Will discuss resuming DVT prophylaxis- Encourage incentive spirometry and ambulation- Anticipate discharge today on home Richelle Gordon MDGeneral Surgery ResidentPager [phone] [facility] Basic Metabolic Panlon 02-15 Anion gap 10 mmol/L Normal 9-18 [facility] Comment on above: Performed By: #### B MP, MG1, PHOS ####[place] [address] Calcium 8.1 mg/dL Low 8.5-10.5 [facility] Comment on above: Performed By: #### B MP, MG1, PHOS ####[place] [address] Chloride 104 mmol/L Normal 98-110 [facility] Comment on above: Performed By: #### B MP, MG1, PHOS ####[place] [address] CO2 27 mmol/L Normal 23-32 [facility] Comment on above: Performed By: #### B MP, MG1, PHOS ####[place] [address] Creatinine 0.78 mg/dL Normal 0.70-1.40 [facility] Comment on above: Performed By: #### B MP, MG1, PHOS ####[place] [address] eGFR (non-black) mL/min/{1.73_m2} Normal >60 [facility] Comment on above: Performed By: #### B MP, MG1, PHOS ####[place] [address] Glucose mass conc 119 mg/dL High 65-100 [facility] Comment on above: Performed By: #### B MP, MG1, PHOS ####[place] [address] Potassium molar conc 4.2 mmol/L Normal 3.5-5.0 [facility] Comment on above: Performed By: #### B MP, MG1, PHOS ####[place] [address] Sodium 141 mmol/L Normal 132-148 [facility] Comment on above: Performed By: #### B REGGIE COLEY PHOS ####[place] [phone] Urea nitrogen 15 mg/dL Normal 8-25 [facility] Comment on above: Performed By: #### B REGGIE COLEY PHOS ####[place] [phone] CBCon 02-15-2017 Erythrocyte distribution width Auto Ratio (RBC) 12.9 % Normal 11.5-15.0 [facility] Comment on above: Performed By: #### C BC ####[place] [phone] Erythrocytes (RBC) 3.63 10*6/uL Low 3.90-5.20 [facility] Comment on above: Performed By: #### C BC ####[place] [phone] Hematocrit (HCT) 33.8 % Low 36.0-46.0 [facility] Comment on above: Performed By: #### C BC ####[place] [phone] Hemoglobin mass conc (Bld) 10.9 g/dL Low 11.5-15.5 [facility] Comment on above: Performed By: #### C BC ####[place] [phone] MCH 30.0 pG Normal 26.0-34.0 [facility] Comment on above: Performed By: #### C BC ####[place] [phone] MCHC mass conc (RBC) 32.2 g/dL Normal 30.5-36.0 [facility] Comment on above: Performed By: #### C BC ####[phone] MCV 93.1 fL Normal 80.0-100.0 [facility] Comment on above: Performed By: #### C BC ####[place] [phone] Platelet mean volume (PMV) 8.5 fL Low 9.0-12.7 [facility] Comment on above: Performed By: #### C BC ####[place] [phone] Platelets 368 10*3/uL Normal 150-400 [facility] Comment on above: Performed By: #### C BC ####[place] [phone] WBC (Leukocytes) 11.75 10*3/uL High 3.70-11.00 [facility] Comment on above: Performed By: #### C BC ####[place] [phone] CBC and Differentialon 02-15 Abs Baso 0.02 k/uL Normal 0.00-0.10 [facility] Comment on above: Performed By: #### C BCDIF ####[place] [phone] Abs [place] 0.97 k/uL High 0.00-0.86 [facility] Comment on above: Performed By: #### C BCDIF ####[place] [phone] Abs Neut 8.11 k/uL High 1.45-7.50 [facility] Comment on above: Performed By: #### C BCDIF ####[place] [phone] Basophils/100 WBC Auto (Bld) 0.1 % Normal [facility] Comment on above: Performed By: #### C BCDIF ####[place] [phone] DTYPE Auto Diff Normal [facility] Comment on above: Performed By: #### C BCDIF ####[place] [phone] Eosinophils 0.35 10*3/uL Normal 0.00-0.45 [facility] Comment on above: Performed By: #### C BCDIF ####[place] [phone] Eosinophils/100 leukocytes 2.5 % Normal [facility] Comment on above: Performed By: #### C BCDIF ####[place] [phone] Erythrocyte distribution width Auto Ratio (RBC) 13.1 % Normal 11.5-15.0 [facility] Comment on above: Performed By: #### C BCDIF ####[phone] Erythrocytes (RBC) 3.51 10*6/uL Low 3.90-5.20 [facility] Comment on above: Performed By: #### C BCDIF ####[phone] Hematocrit (HCT) 32.6 % Low 36.0-46.0 [facility] Comment on above: Performed By: #### C BCDIF ####[place] [phone] Hemoglobin mass conc (Bld) 10.7 g/dL Low 11.5-15.5 [facility] Comment on above: Performed By: #### C BCDIF ####[phone] Lymphocytes 4.35 10*3/uL High 1.00-4.00 [facility] Comment on above: Performed By: #### C BCDIF ####[place] [phone] Lymphocytes/100 leukocytes 31.5 % Normal [facility] Comment on above: Performed By: #### C BCDIF ####[place] [phone] MCH 30.5 pG Normal 26.0-34.0 [facility] Comment on above: Performed By: #### C BCDIF ####[place] [phone] MCHC mass conc (RBC) 32.8 g/dL Normal 30.5-36.0 [facility] Comment on above: Performed By: #### C BCDIF ####[place] [phone] MCV 92.9 fL Normal 80.0-100.0 [facility] Comment on above: Performed By: #### C BCDIF ####[place] [phone] Monocytes/100 leukocytes 7.0 % Normal [facility] Comment on above: Performed By: #### C BCDIF ####[place] [phone] Neutrophils/100 WBC Auto (Bld) 58.9 % Normal [facility] Comment on above: Performed By: #### C BCDIF ####[place] [phone] Platelet mean volume (PMV) 8.3 fL Low 9.0-12.7 [facility] Comment on above: Performed By: #### C BCDIF ####[place] [phone] Platelets 391 10*3/uL Normal 150-400 [facility] Comment on above: Performed By: #### C BCDIF ####[place] [phone] WBC (Leukocytes) 13.80 10*3/uL High 3.70-11.00 [facility] Comment on above: Performed By: #### C BCDIF ####[place] [phone] Glucose POCT ([facility], [place], [place] A Use Only)on 02-15-2017 Glucose mass conc 111 mg/dL High 65-100 [facility] Comment on above: Performed By: #### G LUPOC ####[place] [phone] Glucose mass conc 121 mg/dL High 65-100 [facility] Comment on above: Performed By: #### G LUPOC ####[place] [address] Glucose mass conc 99 mg/dL Normal 65-100 [facility] Comment on above: Performed By: #### G LUPOC ####[place] [phone] [place] [address] Glucose mass conc 116 mg/dL High 65-100 [facility] Comment on above: Performed By: #### G LUPOC ####[place] [address] Magnesiumon 02-15-2017 Magnesium 2.0 mg/dL Normal 1.7-2.6 [facility] Comment on above: Performed By: #### B MP, MG1, PHOS ####[place] [address] NURSING PROGon 02-15-2017 NURSING PROG HNO ID: [id number] thor: Lilibeth Ortega (Rn) Doroteo Santos: (none)Author Type: Registered NurseType: Nursing Progress NoteFiled: 02/15/2017 4:15 PMNote Text: Nursing Progress NotePatient Name: Marilee Grimaldo: [id number] Location: [place] [address] _Daily Note: Dr called to inform that patient had another bloody stool itwas dark red, no change in vital signs HR has remained in 70's, on RA, noincrease in pain, patient is only taking sips of clears otherwiseunchanged , stable, lab orders again @ 1800.This note was completed by: Lilibeth Santos RN [facility] NURSING PROG HNO ID: [id number] thor: Lilibeth Ortega (RnDoroteo Jean Baptiste: (none)Author Type: Registered NurseType: Nursing Progress NoteFiled: 02/15/2017 10:29 AMNote Text: Nursing Progress NotePatient Name: Marilee SmithRN: [id number] Location: [place] [address]/[id number] _Daily Note:Patient states she's feeling ok, just brought up some 'phlegm',( clearbubbles) no emesis, able to keep down 'bites' or sips of broth and tea,given IV phenergan, denies pain, encouraged to continue to ambulate,stable, call light in reach.This note was completed by: Lilibeth Santos RN [facility] NURSING PROG HNO ID: [id number] thor: Liliana Echeverria) Doroteo Seth: (none)Author Type: Registered NurseType: Nursing Progress NoteFiled: 02/15/2017 5:53 AMNote Text: Nursing Progress NotePatient Name: Marilee SmithRN: [id number] Location: [place] [address]/[id number] _ Surgery paged [id number] Marilee Arriaga: patient had dark bloody BM. pleaseadshawnaeLiliana Mariscal [id number] No new ordersThis note was completed by: Liliana Seth RN [facility] PROGRESSon 02-15-2017 PROGRESS HNO ID: [id number] thor: Mark Anthony (Romain) AdenugaService: General SurgeryAuthor Type: ResidentType: Progress NotesFiled: 02/15/2017 8:25 AMNote Text:General SurgeryProgress notesAdmitted: 02/13/2017OR date: 02/13/2017 Procedure(s) and Anesthesia Type: * LAPAROSCOPIC GASTRIC RESTRICTIVE SURG W/ BYPASS AND CRYSTAL-EN-Y = 40 (morbid obesity) ([facility]) E66.01 (02/12/2017) Morbid obesity (HCC) (02/13/2017)Hold Lovenox/Toradol, [...] RNF, potential discharge tomorrowPaul MD Ted (PGY 2)[id number] 6PM weekdays and all through weekends: [id number] SNausea and emesis yesterday, improving and PO intake improvingSlept okayDark bloody BMs this AMAmbulating well OTemp (24hrs), Av.7 ?C (98 ?F), Min:36.4 ?C (97.6 ?F), Max:36.9 ?C(98.4 ?F)BP 147/78 Pulse 80 Temp 36.4 ?C (97.6 ?F) (Oral) Resp 16 Ht 154.9cm (5' 1 ) Wt (!) 150.6 kg (332 lb) LMP 01/27/2017 SpO2 99% BMI62.73 kg/s6QCDXUDX: Mild distress as actively nauseated and sitting up with vomitbag, alert and oriented x 3HEENT: NC/AT, EOM's intactRESPIRATORY: Respiratory effort unlaboredCHEST-CVS: HDSABDOMEN: Soft, obese and non distended, non tender, laparoscopic incisionsCDI with glueNEURO: Grossly non-focal02/14 07 - 02/15 0659In: 3622 [PO:300; IV:3322]Out: 2180 [Urine:1850] Normal [facility] PROGRESS HNO ID: [id number] thor: Renée LopezService: General SurgeryAuthor Type: PhysicianType: [...] as PO intake improvesStreggie Lopez MD Normal [facility] Phosphoruson 02-15-2017 Phosphate 1.9 mg/dL Low 2.5-4.5 [facility] Comment on above: Performed By: #### B VIANCA MGJose, PHOHeaven ####[facility] [place], [place] [phone] Vital Signs Date Time Vital Sign Value Performing Clinician Facility 06-03-2024 13:34-0400 Body height 157.5 cm Coy Ramírez MD Work Phone: [facility] 06-03-2024 13:34-0400 Body mass index (BMI) [Ratio] 59.26 kg/m2 Coy Ramírez MD Work Phone: [facility] 06-03-2024 13:34-0400 Body weight 146.97 kg Coy Ramírez MD Work Phone: [facility] 06-03-2024 13:34-0400 Diastolic blood pressure 78 mm[Hg] Coy Ramírez MD Work Phone: [facility] 06-03-2024 13:34-0400 Heart rate 78 /min Coy Ramírez MD Work Phone: [facility] 06-03-2024 13:34-0400 Respiratory rate 18 /min Coy Ramírez MD Work Phone: [facility] 06-03-2024 13:34-0400 Systolic blood pressure 118 mm[Hg] Coy Ramírez MD Work Phone: [facility] 09-19-2023 09:41-0500 Body height 157.48 cm [facility] 09-19-2023 09:41-0500 Body weight 104.32 kg [facility] Encounters Encounter Date Encounter Type Care Provider Facility Start: 06-18-2024 ambulatory Jamey Minor acility:[facility] Start: 06-10-2024 End: 06-10-2024 ambulatory Najma Richardson MD Facility:[facility] Start: 06-03-2024 End: 06-03-2024 Office outpatient visit 25 minutes Coy Ramírez MD Work Phone: [facility] Comment on above: Hypoglycemia (Primar y Dx); S/P gastric bypass; IFG (impaired fasting glucose); Weight gain; Encounter for dietary consultation; Class 3 severe obesity due to excess calories with serious comorbidity and body mass index (BMI) of 50.0 to 59.9 in adult ([facility]) Start: 06-03-2024 End: 06-03-2024 ambulatory COY RAMÍREZ Not Available Start: 05-31-2024 End: 06-03-2024 Clinisync Result Encounter Generic External Data Provider [facility] Unsolicited Start: 05-31-2024 End: 06-03-2024 Clinisync Result Encounter Generic External Data Provider [facility] External [facility] Unsolicited Start: 05-27-2024 End: 05-27-2024 ambulatory Najma Richardson MD Facility: [facility] Start: 05-21-2024 End: 05-21-2024 Telephone encounter Francoise MARTINEZ Work Phone: [facility] Start: 05-09-2024 End: 05-09-2024 ambulatory FRANCOISE M HEMMER Not Available Start: 05-06-2024 End: 05-06-2024 ambulatory Najma Richardson MD Facility: [facility] Start: 02-12-2024 End: 02-12-2024 ambulatory Najma Richardson MD Facility: [facility] Start: 01-31-2024 End: 01-31-2024 ambulatory FRANCOISE M HEMMER Not Available Start: 01-23-2024 End: 01-23-2024 ambulatory FRANCOISE M HEMMER Not Available Start: 01-04-2024 ambulatory [facility] Start: 12-29-2023 ambulatory [facility] Start: 2023 End: 2023 ambulatory [facility] Start: 12-12-2023 End: 12-12-2023 ambulatory GERMAINE Del [place]illo OSMEL Not Available Start: 12-04-2023 End: 12-04-2023 ambulatory Najma Richardson MD Facility: [facility] Start: 11-21-2023 End: 11-21-2023 ambulatory FRANCOISE M HEMMER Not Available Start: 10-31-2023 End: 10-31-2023 ambulatory FRANCOISE M HEMMER Not Available Start: 10-23-2023 End: 10-23-2023 ambulatory Najma Richardson MD Facility: [facility] Start: 09-25-2023 Refill Francoise M Hemmer PA Work Phone: [facility] Comment on above: Chronic pain of both knees Start: 09-19-2023 End: 09-19-2023 Patient encounter procedure [facility] [place] Work Phone: Start: 09-19-2023 End: 09-19-2023 ambulatory NON STAFF [facility] Work Phone: Start: 08-05-2023 End: 08-05-2023 ambulatory FRANCOISE M HEMMER Not Available Start: 07-26-2023 End: 07-26-2023 ambulatory FRANCOISE BARNES Not Available Start: 07-17-2023 Registered [facility] Start: 11-07-2022 End: 11-08-[address] FRANCOISE BARNES Facility:[facility] Start: 06-27-2022 End: 06-27-2022 ambulatory SUNSHINE NEWMAN . Facility:[facility] Start: 04-27-2022 End: 10-26-2022 ambulatory FRANCOISE BARNES Facility:[facility] Start: 04-22-[address] FRANCOISE BARNES Facil ity:[facility] Start: 11-05-2021 End: 11-05-2021 Emergency department patient visit Tyler Suazoandrea Facility:[facility] Start: 09-18-2018 Patient encounter procedure Ida Weber Facility:[id number] Start: 05-08-2018 Patient encounter procedure Ida Weber Facility:[id number] Start: 02-13-2018 End: 02-16-2018 Ambulatory FRANCOISE BARNES [facility] Start: 12-19-2017 Patient [...] Visit [facility] [address] [place] [id number] Coy Ramírez MD [address] [place] [address] [facility] Start: 08-08-2024 End: 08-08-2024 Patient encounter procedure 08/08/2024 11:30 AM EST Office Visit [facility] [address] [place] [address] Francoise Barnes PA [address] [place] [address] [facility] Start: 06-03-2024 End: 06-03-2024 Patient encounter procedure 06/03/2024 1:10 PM EDT Office Visit [facility] [address] [place] [phone] Coy Ramírez MD [address] [place] [address] [facility] Start: 04-21-2024 Influenza vaccination Influenza Vacc ine (#1) [facility] Start: 02-18-2024 Influenza vaccination Influenza Vacc ine (#1) [facility] Comment on above: Postponed from 04/21 (Patient Refused) Start: 02-11-2024 Screening for malignant neoplasm of breast Mammogram [facility] Start: 10-25-2023 End: 10-25-2023 Patient encounter procedure 10/25/2023 1:00 PM EST Office Visit [facility] [address] [place] [address] Francoise Barnes PA [address] [place] [address] [facility] Start: 12-14-2007 Screening for malignant neoplasm of cervix [facility] Start: 1998 Screening for malignant neoplasm of cervix Pap Smear [facility] Start: 1977 Screening for malignant neoplasm of colon [facility] Immunizations Immunization Date Immunization Notes Care Provider Fa cility 05-30-2021 influenza, injectabl e, quadrivalent, preservative free Francoise MARTINEZ Work Phone: [facility] 05-30-2021 influenza virus vacc ine, unspecified formulation Francoise MARTINEZ Work Phone: [facility] 06-12-2020 influenza, injectabl e, quadrivalent, preservative free Francoise MARTINEZ Work Phone: [facility] 12-16-2018 tetanus toxoid, redu brina diphtheria toxoid, and acellular pertussis vaccine, adsorbed Francoise MARTINEZ Work Phone: [facility] Payers Date Payer Category Payer Self-pay [id number] 2022 Medicaid [id number] 2022 Medicaid [id number] 2022 Unknown 2018 Unknown [id number] 2018 Unknown [id number] 1977 Unknown [id number] 2.16. 840.1.858422.3.579.2.356 1977 Unknown [id number] 2.16. 840.1.986151.3.579.2.356 1977 Unknown [id number] 2.16. 840.1.281014.3.579.2.356 1977 Unknown [id number] 2.16.8 40.1.939343.3.579.2.727 1977 Unknown [id number] 2.16.8 40.1.069786.3.579.2.727 1977 Unknown [id number] 2.16.84 0.1.292421.3.579.2.593 1977 Unknown [id number] 2.16.84 0.1.870379.3.579.2.593 1977 Unknown [id number] 2.16.84 0.1.492648.3.579.2.593 1977 Unknown [id number] 2.16.8 40.1.691182.3.579.2.1285 1977 Unknown [id number] 2.16.8 40.1.429578.3.579.2.1285 1977 Unknown [id number] 2.16.8 40.1.220442.3.579.2.1285 1977 Unknown [id number] 2.16.8 40.1.589624.3.579.2.1285 1977 Unknown [id number] 2.16.8 40.1.521936.3.579.2.1285 1977 Unknown [id number] 2.16.8 40.1.599346.3.579.2.1285 1977 Unknown [id number] 2.16.8 40.1.050845.3.579.2.1285 1977 Unknown [id number] 2.16.84 0.1.509384.3.579.2.1258 1977 Unknown [id number] 2.16.84 0.1.349563.3.579.2.1258 1977 Unknown [id number] 2.16.84 0.1.756626.3.579.2.1258 1977 Unknown [id number] 2.16.84 0.1.776293.3.579.2.1258 1977 Unknown [id number] 2.16.84 0.1.677703.3.579.2.1258 1977 Unknown [id number] 2.16.84 0.1.823792.3.579.2.1258 1977 Unknown [id number] 2.16.84 0.1.769443.3.579.2.1258 1977 Unknown [id number] 2.16.840 .1.857002.3.579.2.1258 1977 Unknown [id number] 2.16.840 .1.567493.3.579.2.12581978 Unknown [id number] 2.16. 840.1.682191.3.579.2.196 1977 Unknown [id number] 2.16. 840.1.615617.3.579.2.196 1977 Unknown [id number] 2.16. 840.1.694119.3.579.2.196 1977 Unknown [id number] 2.16. 840.1.129074.3.579.2.196 1977 Unknown [id number] 2.16. 840.1.998065.3.579.2.196 1977 Unknown [id number] 2.16. 840.1.699850.3.579.2.196 1959 Unknown [id number] Unknown [id number] 2.16.8 40.1.004732.3.579.2.531 Unknown [id number] 2.16.8 40.1.097710.3.579.2.531 Social History Date Type Detail Facility Tobacco smoking stat us VAIS Unknown if ever smoked [facility] Work Phone: Start: 1975 Sex Assigned At Female F [facility] Start: 09-18-2018 End: 01-23-2023 Tobacco smoking status VAIS Never smoked tobacco (finding) [facility] Start: 01-23-2023 Tobacco use and exposure Smokeless tobacco non-user [facility] Start: 07-26-2023 End: 05-27-2024 Alcohol intake [...] capsule, Daily cholecalciferol (Vitamin D-3) 250 MCG (02022 UT) capsule TAKE 1 CAPSULE BY MOUTH ONCE A DAY AT THE SAME TIME. Continuous Blood Gluc Signals Intelligence Analysis Manager (FreeStyle Sam[place] 2 [place]) device USE DIRECTED Continuous Blood Gluc Sensor [...] EVERY DAY NEEDED FOR MIGRAINES nystatin (Mycostatin) [id number] UNIT/GM powder 1 application , Topical, Daily, [...] 08/2004 OTHER SURGICAL HISTORY 08/1977 pyloric stenosis [place] ARTHROSCOPY KNEE DIAGNOSTIC W/WO SYNOVIAL BX SPX [...] (BMI) of 50.0 to 59.9 in adult ([facility]) Follow up in about 6 months (around 12/02/2024). documented in this encounter [facility] Telephone encounter Note 05-21-2024 Telephone Encounter [...] the medication. Filled 12/11/2017, 04/07/2018, 04/07/2020 at [facility] in [place]. Called back and spoke with Sj, who connected me with pharmacistNena. They will look into this and verify the claims and fax new determination to the office. [facility] Note 05-21-2024 Telephone Encounter - [...] the medication. Filled 12/11/2017, 04/07/2018, 04/07/2020 at [facility] in [place]. Called back and spoke with Sj, who connected me with pharmacistNena. They will look into this and verify the claims and fax new determination to the office. documented in this encounter [facility] Healthcare Telephone encounter Note 09-25-2023 Telephone Encounter - MICHELLE Cao - 09/25/2023 10:06 AM EST Note Date & Type Note Facility 09-25-2023 Telephone encount er Note OARRS reviewed, Rx sent into patient's pharmacy. [facility] Healthcare Note 09-25-2023 Telephone Encounter - MICHELLE Cao - 09/25/2023 10:06 AM EST Note Date & Type Note Facility 09-25-2023 Miscellaneous Notes Formattin g of this note might be different from the original. OARRS reviewed, Rx sent into patient's pharmacy. documented in this encounter [facility] Clinical Note 06-27-2022 Note Date & [...] authenticated by: EM LÓPEZ Date: 2022-06-27 15:38 [facility] Progress note 06-28-2021 Note Date & Type Note Facility 06-28-2021 Note HNO ID: [id number] Author: Em Fernandez, PhD Service: ? Author Type: Psychologist Type: Progress Notes Filed: 06/28/2021 2:45 PM Note Text: Received mental health records from [facility]. Note from 05/06/21 revealed pt [...] medical records for scanning. Em Fernandez, psychologist [facility] Evaluation note Note Date & Type Note Facility Evaluation note No assessment information availa [facility] Work Phone: Evaluation note Note Date [...] section and content) DATE CREATED AUTHOR 02/14/2018 [facility] DATE CREATED AUTHOR AUTHOR'S ORGANIZ ATION 02/16/2018 [facility] DATE CREATED AUTHOR AUTHOR'S ORGANIZ ATION 10/09/2018 [facility] DATE CREATED AUTHOR AUTHOR'S ORGANIZ ATION 10/11/2021 [facility] DATE CREATED AUTHOR AUTHOR'S ORGANIZ ATION 10/28/2022 [facility] DATE CREATED AUTHOR AUTHOR'S ORGANIZ ATION 11/13/2022 [facility] DATE CREATED AUTHOR AUTHOR'S ORGANIZ ATION 01/09/2024 [facility] DATE CREATED AUTHOR AUTHOR'S ORGANIZ ATION 06/05/2024 [facility] DATE CREATED AUTHOR AUTHOR'S ORGANIZ ATION 06/16/2024 [facility] DATE CREATED AUTHOR AUTHOR'S ORGANIZ ATION 06/19/2024 [facility] Goals (unrecognized section and [...] September 19, 2023 End: September 19, 2023 Security Investigator Relationship Specialty Start Date End Date Shalini Coffey MD [address] [facility] [address] [place] [address] PCP - General Family Medicine 08/05/23 Security Investigator Relationship Specialty Start Date End Date Shalini Coffey MD [address] [facility] [address] [place] [address] PCP - General Family Medicine 08/05/23 Security Investigator Relationship Specialty Start Date End Date Shalini Coffey MD [address] [facility] [address] [place] [address] PCP - General Family Medicine 08/05/23 Security Investigator Relationship Specialty Start Date End Date Shalini Coffey MD [address] [facility] [address] [place] [address] PCP - General Family Medicine 08/05/23 Reason [...] BE BASED ON THE PRIMARY CLINICAL RECORDS. [facility] [employer] [facility]. provides no warranty or guarantee of the accuracy or completeness of information in this document.
[2024-06-24 07:10] VITALS: BP 127/87; PULSE 83; TEMP 36.3; O2SAT 96
[2024-06-24 07:45] VITALS: BP 136/83; PULSE 79; O2SAT 93
[2024-06-24 07:47] VITALS: BP 130/81; PULSE 80; O2SAT 91
[2024-06-24] MEDS: 0.9 % SODIUM CHLORIDE 10 ML SYRINGE - SALINE FLUSH 2 ML INJ (07:47)
[2024-06-24] MEDS: IOHEXOL 240 MG/ML - 50 ML VIAL 24 MG INJ (07:48)
[2024-06-24] MEDS: LIDOCAINE HCL 2% PF 100 MG/5 ML VIAL 4 ML INJ (07:48)
[2024-06-24] MEDS: TRIAMCINOLONE ACETONIDE 40 MG/ML VIAL 80 MG INJ (07:48)
[2024-06-24] MEDS: BUPIVACAINE HCL 0.25% PF 25 MG/10 ML VIAL 2 ML INJ (07:48)
--- NOTE | 2024-06-24 07:50 | W.PM.PROCNOT ---
Date of procedure: 06/24/24 Pre-op diagnosis: Pain due to left sciatica Post-op diagnosis: same as pre-op Procedure: Procedure: Left sciatic nerve block Medications: Bupivacaine 0.25% 4cc, normal saline 0.9% 4cc, kenalog 80mg The patient was seen and examined in the preoperative holding area.? The site was marked.? Informed consent was obtained and placed on the chart.? The patient was brought to the medical procedures unit and placed in the prone position when a timeout was completed verifying correct patient, procedure, site, positioning, and planned special equipment.? The area overlying the femoral neck of the left side was prepped and draped using aseptic equipment.? A 22-gauge, 6-inch Stimuplex needle was advanced through a skin wheal of 2% lidocaine, emitting 2 mA of current at 2 Hz.? The needle tip was advanced under fluoroscopic visualization until plantarflexion was achieved at which point Omnipaque dye was injected.? This showed adequate spread.? There was no evidence of neurovascular uptake.? The above-mentioned injectate was placed in two 2.5 mL aliquots preceded by negative aspiration without sequelae.? The needle was removed.? The insertion site was covered.? The patient was taken to the postprocedural recovery area where the patient was monitored for the appropriate length of time before being found suitable for discharge in the accompaniment of a responsible adult. Anesthesia: Local Surgeon: Najma Richardson Pathology: none sent Condition: stable Disposition: no change
== END 2024-06-24 07:55 | disposition home or self-care (01) ==
PROVIDERS: PCP Physician Assistant; Visit Provider Anesthesiology
DX: M54.32 Sciatica, left side (principal)
CPT/HCPCS: 64445; J0665; J3301; Q9966

== ENCOUNTER 2024-07-03 10:41 | Outpatient (OUT) | payer MEDICAID, SELFPAY ==
--- OUTSIDE RECORDS SUMMARY | 2024-07-03 10:59 | XMS_ITS | CCD ---
Author Organization [facility] Care Team Providers Care Long Term Care Phlebotomist Name Role Phone FRANCOISE BARNES Unavailable Unavailable [...] Unavailable MISC, DR SLOAN Primary Care Unavailable CLAREMONT, DR EM Snyder Consulting Unavailable TRENT ., [...] Kapoor Attending Provider MAHIN Szymanski Attending Provider [phone] Shalini Coffey MD Primary Care Provider MATTHEW [...] Attending Unavailable NON STAFF Primary Care Unavailable Hugo Morganelrahman Admitting Unavailab le Jamey Morgan Attending Unavailab le NON STAFF Primary Care Unavailable HEMMERFRANCOISE Attending Unavailable HEMMER, FRANCOISE Del Castillo Attending Unavailable HEMMER, FRANCOISE Del Castillo Attending Unavailable OSMELGERMAINE Attending Unavailable HEMMER, FRANCOISE M Attending Unavailable HEMMER, FRANCOISE M Attending Unavailable HEMMER, FRANCOISE M Attending Unavailable HEMMER, FRANCOISE Del Castillo Attending Unavailable DESIREECOY LANDRY F Attending Unavailable DESIREE, AHMAD F Referring Unavailable PLACIDO RODRÍGUEZ Attending Unavailable Giedraitis , Andrius Vytautas Attending Unavailable Giedraitis MD, Andrius Vytautas Attending Unavailable Giedraitis MD, Andrius Vytautas Attending Unavailable Giedraitis , Andrius Vytautas Attending Unavailable Giedraitis , Andrius Vytautas Attending Unavailable Giedraitis MD, Andrius Vytautas Attending Unavailable Giedraitis MD, Andrius Vytautas Attending Unavailable Allergies Allergy Classification Reported Allergen(s) Allergy Type Date of Onset Reaction(s) Facility (1 source) Cephalexin; Translations: [Keflex] Drug Allergy [facility] Repository (13 sources) Clindamycin; Translations: [clindamycin] Drug Allergy [facility] Repository (14 sources) Codeine; Translations: [codeine] Drug Allergy [facility] Repository (1 source) NSAIDs; Translations: [NSAIDs] Propensity to adverse reactions (disorder) [facility] Repository (11 sources) Penicillins; Translations: [penicillins] Propensity to adverse reactions (disorder) [facility] Repository (1 source) Sulfonamides (Antibiotic); Translations: [sulfa drugs] Propensity to adverse reactions (disorder) [facility] Repository (1 source) alot of ATB's, I dont know names; Translations: [alot of ATB's, I dont know names] Propensity to adverse reactions (disorder) [facility] Repository (1 source) Penicillin Drug Allergy [facility] Repository (1 source) Sulfonamides (Antibiotic) Drug allergy (disorder) [facility] Repository (4 sources) Sulfonamides (Antibiotic); Translations: [SULFA (SULFONAMIDE ANTIBIOTICS)] Allergy to substance 5 [facility] (11 sources) erythromycin base; Translations: [ERYTHROMYCIN BASE] Allergy to substance 7 [facility] (9 sources) Bacitracin / Polymyxin B; Translations: [BACITRACIN-POLYM YXIN B] Drug Allergy 3 [facility] Healthcare Work Phone: (9 sources) Ciprofloxacin; Translations: [CIPROFLOXACIN] Drug Allergy 5 Rash [facility] (9 sources) Erythromycin; Translations: [ERYTHROMYCIN] Drug Allergy 5 [facility] (8 sources) Penicillin G Drug Allergy 3 [facility] (8 sources) Sulfonamides (Antibiotic) Drug Allergy 5 [facility] (9 sources) Soap; Translations: [SOAP] Allergy to substance 7 Swelling [facility] (1 source) Grass pollen; Translations: [GRASS POLLEN] Propensity to adverse reactions to drug (disorder) 5 [facility] Repository (1 source) SHELLFISH CONTAINING PRODUCTS; Translations: [SHELLFISH CONTAINING PRODUCTS] Propensity to adverse reactions to food (disorder) 5 [facility] Repository (7 sources) rizatriptan Drug Allergy 4 Anxiety [facility] Healthcare Work Phone: Medications Current Medications Medication Drug Class(es) Dates Sig (Normalized) Sig (Original) acarbose 25 mg oral tablet (8 sources) alpha-Glucosidase Inhibitor Start: 05-15-2024 take 1 [...] evening. Take with meals. 0 04/25/2023 Active [id number] 200 actuat albuterol 0.09 mg/actuat metered dose inhaler (8 sources) beta2-Adrenergic Agonist Start: 12-26-2023 take 1 [...] ARIPiprazole 400 mg extended release prefilled syringe (10 sources) Atypical Antipsychotic Start: 05-08-2018 inject 400 mg by intramuscular injection every month Aripiprazole (Abilify Maintena) 400 mg Suspension,Extended Rel Syring Active 400 MG IM every month May 07, 2018 11:00pm busPIRone hydrochloride 30 mg oral tablet (10 sources) Start: 05-16-2017 take 30 mg by mouth twice daily Buspirone Active 30 MG PO Twice daily May 15, 2017 11:00pm take 1 tablet by ayla th every twelve hours busPIRone (Buspar) 30 MG tablet Take 30 mg by mouth every 12 (twelve) hours. Active cholecalciferol 0.25 mg oral capsule (8 sources) Vitamin D Start: 01-24-2024 take 1 capsule by mouth once daily cholecalciferol (Vitamin D-3) 250 MCG (88824 UT) capsule Indications: Vitamin D deficiency TAKE 1 CAPSULE BY MOUTH ONCE A DAY AT THE SAME TIME. 100 capsule 3 01/24/2024 Active Start: 02-06-2023 take 1 capsule by mo uth once daily cholecalciferol (Vitamin D-3) 250 MCG (53109 UT) capsule Indications: Vitamin D deficiency Take 1 capsule (250 mcg) by mouth 1 (one) time each day at the same time. 90 capsule 3 02/06/2023 Active Continuous Blood Gluc Receiv er (FreeStyle Samreen 2 [place]) device (8 sources) Start: 02-23-2023 Continuous Blo od Gluc Ripening Room Operator (FreeStyle Samreen 2 [place]) device USE DIRECTED 02/23/2023 Active Start: 02-23-2023 Continuous Blo od Gluc Ripening Room Operator (FreeStyle Samreen 2 [place]) device USE DIRECTED 0 02/23/2023 Active Continuous Blood Gluc Sensor (FreeStyle Samreen 2 Sensor) misc (8 sources) Start: 04-22-2023 Continuous Blo od Gluc Sensor (FreeStyle Samreen 2 Sensor) misc Use as directed 04/22/2023 Active Start: 04-22-2023 Continuous Blo od Gluc Sensor (FreeStyle Samreen 2 Sensor) misc Use as directed 0 04/22/2023 Active diclofenac sodium 0.01 mg/mg topical gel (8 sources) Nonsteroidal Anti-inflammatory Drug Start: 06-18-2024 diclofenac sodium 1 % gel Indications: Chronic pain of both knees APPLY 2 GM TO AFFECTED AREA IN THE MORNING,IN THE EVENING,AND BEFORE BEDTIME 100 g 3 06/18/2024 Active Start: 04-26-2023 diclofenac sod ium (Voltaren) 1 % gel Indications: Chronic pain of both knees Apply 2 g topically in the morning and 2 g in the evening and 2 g before bedtime. 150 g 3 04/26/2023 Active escitalopram 10 mg oral tablet (9 sources) Serotonin Reuptake Inhibitor Start: 06-12-2024 take 1 tablet by mouth once daily escitalopram (Lexapro) 10 MG tablet Take 10 mg by mouth Daily 06/12/2024 Active Start: 04-16-2024 take 2 tablets by mo [facility] once daily, then take 3 tablets by mouth once daily escitalopram (Lexapro) 5 MG tablet Take 10 mg by mouth Daily Take 15 mg daily 04/16/2024 Active Start: 04-16-2024 take 1 tablet by ayla once daily escitalopram (Lexapro) 5 MG tablet Take 5 mg by mouth Daily 04/16/2024 Active FLUoxetine 20 mg oral capsule (2 sources) Serotonin Reuptake Inhibitor Start: 05-08-2018 Fluoxetine (Prozac) 20 mg Capsule Active 30 MG PO Daily May 07, 2018 11:00pm hydrOXYzine pamoate 50 mg oral capsule (10 sources) Antihistamine Start: 06-18-2024 take 1 capsule by mouth in the morning hydrOXYzine pamoate (Vistaril) 50 MG capsule Take 50 mg by mouth in the morning and 50 mg before bedtime. 06/18/2024 Active Start: 07-17-2023 End: 06-26-2024 take 1 capsule by mouth twice daily as needed for anxiety hydrOXYzine pamoate (Vistaril) 25 MG capsule TAKE 1 CAPSULE BY MOUTH TWICE A DAY NEEDED FOR ANXIETY 07/17/2023 06/26/2024 Discontinued (Other) lamoTRIgine 150 mg oral tablet (8 sources) Mood Stabilizer, Anti-epileptic Agent take 3 tablets by mouth once daily lamoTRIgine (LaMICtal) 150 MG tablet Take 3 tablets by mouth 1 (one) time each day at the same time. Active lumateperone 42 mg oral capsule (8 sources) Start: 04-04-20 23 take 1 capsule by mouth in the morning Caplyta 42 MG capsule Take 1 capsule by mouth in the morning. 04/04/2023 Active methocarbamol 750 mg oral tablet (2 sources) Muscle Relaxant Start: 06-10-20 24 take 1 tablet by mouth every twenty-four hours as needed methocarbamol (Robaxin) 750 MG tablet Take 750 mg by mouth Daily as needed 06/10/2024 Active 24 hr metoprolol succinate 25 mg extended release oral tablet (7 sources) beta-Adrenergic Ophelia Start: 04-24-20 24 take 1 tablet by mouth once daily metoprolol succinate XL (Toprol-XL) 25 MG 24 hr tablet Indications: Benign essential hypertension (CMS/HCC) TAKE 1 TABLET BY MOUTH DAILY, DO NOT CRUSH OR CHEW 100 tablet 3 04/24/2024 Active Multivit With Min-Folic Acid (Centrum Multigummies) 80 mcg Tablet,Chewable (2 sources) Start: 08-15-20 17 take 2 tablets by mouth once daily [...] mg before bedtime. 0 08/02/2023 Active nystatin 340011 unt/ml oral suspension (10 sources) Polyene Antifungal Start: 06-26-2024 End: 07-10-2024 nystatin (Mycostatin) 859071 UNIT/ML suspension Indications: Thrush, oral Take 4 mL (400,000 Units) by mouth in the morning and 4 mL (400,000 Units) at noon and 4 mL (400,000 Units) in the evening and 4 mL (400,000 Units) before bedtime. Do all this for 14 days. 224 mL 06/26/2024 07/10/2024 Active Start: 05-06-2024 nystatin (Myco statin) 150427 UNIT/GM powder Indications: Rash Apply 1 application topically Daily PRN 60 g 2 05/06/2024 Active nystatin (Mycost atin) 493415 UNIT/GM powder Apply 1 application topically in the morning. PRN. 0 Active omeprazole 20 mg delayed release oral tablet (2 sources) Proton Pump Inhibitor Start: 05-16-2017 Omeprazole Magnesium (Prilosec Otc) 20 mg Tablet,Delayed Release (Dr/Ec) Active 40 MG PO Twice daily May 15, 2017 11:00pm ondansetron 4 mg disintegrating oral tablet (12 sources) Serotonin-3 Receptor Antagonist Start: 12-12-2023 take [...] 11:00pm rimegepant 75 mg disintegrating oral tablet (8 sources) Start: 05-09-2024 take 1 tablet by [...] 2017 1:00am tiZANidine 4 mg oral tablet (8 sources) Central alpha-2 Adrenergic Agonist Start: 07-31-2023 take 1 tablet by mouth every eight hours for muscle spasms tiZANidine (Zanaflex) 4 MG tablet Indications: Chronic bilateral low back pain without sciatica TAKE 1 TABLET (4 MG) BY MOUTH EVERY 8 HOURS IF NEEDED FOR MUSCLE SPASMS 100 tablet 2 07/31/2023 Active traMADol hydrochloride 50 mg oral tablet (9 sources) Opioid Agonist Start: 05-01-2024 take 1 [...] tablet 0 08/28/2023 09/25/2023 Discontinued traZODone hydrochloride 150 mg oral tablet (12 sources) Serotonin Reuptake Inhibitor Start: 06-18-2024 take 2 tablets by mouth at bedtime traZODone (Desyrel) 150 MG tablet Take 300 mg by mouth at bedtime 06/18/2024 Active Start: 10-31-2023 End: 06-26-2024 take 3 tablets by mouth at bedtime traZODone (Desyrel) 100 MG tablet Indications: Insomnia due to other mental disorder Take 3 tablets (300 mg) by mouth at bedtime 10/31/2023 06/26/2024 Discontinued (Other) Start: 09-18-2018 take 50 mg by mouth once daily Trazodone Active 50 MG PO Daily September 18, 2018 12:00am take 3 tablets by mo [facility] at bedtime traZODone (Desyrel) 100 MG tablet Take 3 tablets by mouth at bedtime. 0 Active 24 hr venlafaxine 150 mg extended release oral capsule (8 sources) Serotonin and Norepinephrine Reuptake Inhibitor take [...] 12:00am zolpidem tartrate 5 mg oral tablet (8 sources) gamma-Aminobutyric Acid-ergic Agonist Start: 10-31-19 zolpidem [...] counseling and surveillance] 06-03-2024 Episodic Anxiety disorders (8 sources) Anxiety; Translations: [Anxiety disorder, unspecified] Onset: 05-29-2015 04-26-2023 Chronic Diseases of white blood cells (8 sources) Leukocytosis; Translations: [Elevated white blood cell count, unspecified] Onset: 01-23-2023 01-23-2023 Chronic Disorders of lipid metabolism (8 sources) Hyperlipidemia; Translations: [Hyperlipidemia, unspecified] Onset: 01-23-2023 01-23-2023 Chronic E Codes: Fall (2 sources) Fall in home; Translations: [Unspecified fall, initial encounter] 06-26-2024 Episodic Essential hypertension (8 sources) Benign essential hypertension; Translations: [Essential (primary) hypertension] Onset: 01-23-2023 01-23-2023 Chronic Gastroduodenal ulcer (except hemorrhage) (8 sources) Gastric ulcer; Translations: [Gastric ulcer, unspecified as acute or chronic, without hemorrhage or perforation] Onset: 01-23-2023 01-23-2023 Chronic Headache, including migraine (1 source) Headache; Translations: [Headache] Onset: 02-13-2018 Episodic Headache; including migraine (15 sources) Migraine without aura, not refractory ; Translations: [Migraine without aura, not intractable, without status migrainosus] Onset: 01-23-2023 01-23-2023 Chronic Heart valve disorders (4 sources) Cardiac murmur, unspecified; Translations: [CARDIAC MURMUR UNSPECIFIED] Onset: 11-07-2022 Episodic Malaise and fatigue (8 sources) Fatigue; Translations: [Chronic fatigue, unspecified] Onset: 01-23-2023 01-23-2023 Chronic Menstrual disorders (9 sources) Menorrhagia; Translations: [Excessive and frequent menstruation with regular cycle] Onset: 01-23-2024 05-08-2018 Chronic Miscellaneous mental health disorders (8 sources) Insomnia disorder related to another mental disorder; Translations: [Insomnia due to other mental disorder] Onset: 01-23-2023 01-23-2023 Chronic Mood disorders (8 sources) Recurrent major depressive episodes, moderate ; Translations: [Major depressive disorder, recurrent, moderate] Onset: 01-23-2023 01-23-2023 Chronic Mycoses (2 sources) Candidiasis of mouth; Translations: [Candidal stomatitis] 06-26-2024 Episodic Nutritional deficiencies (8 sources) Vitamin D deficiency; Translations: [Vitamin D deficiency, unspecified] Onset: 01-23-2023 01-23-2023 Chronic Osteoarthritis (20 sources) Inflammation of joint of foot; Translations: [Primary osteoarthritis, unspecified ankle and foot] Onset: 09-02-2015 01-23-2023 Chronic Other endocrine disorders (10 sources) Hypoglycemia; Translations: [Hypoglycemia, unspecified] Onset: 01-23-2023 01-23-2023 Chronic Other endocrine disorders (8 sources) Polycystic ovary; Translations: [Polycystic ovarian syndrome] Onset: 01-23-2023 01-23-2023 Chronic Other gastrointestinal disorders (9 sources) Intestinal malabsorption; Translations: [Intestinal malabsorption, unspecified] Onset: 01-23-2024 05-16-2017 Chronic Other gastrointestinal disorders (1 source) H/O: GIT by-pass; Translations: [Bariatric surgery status] 05-16-2017 Episodic Other liver diseases (8 sources) Steatosis of liver; Translations: [Fatty (change of) liver, not elsewhere classified] Onset: 04-26-2023 04-26-2023 Chronic Other nervous system disorders (8 sources) Chronic pain; Translations: [Other chronic pain] Onset: 01-23-2023 01-23-2023 Chronic Other nervous system disorders (1 source) Paresthesia of skin; Translations: [Paresthesia of skin] Onset: 02-13-2018 Episodic Other nutritional; endocrine; and metabolic disorders (10 sources) Morbid obesity; Translations: [Morbid (severe) obesity [...] (BMI) of 50.0 to 59.9 in adult (CMS/HCC)] 06-03-2024 Chronic Other nutritional; endocrine; and metabolic disorders (2 sources) Weight increased; Translations: [Abnormal weight gain] 06-03-2024 Episodic Other upper respiratory disease (8 sources) Allergic rhinitis; Translations: [Allergic rhinitis, unspecified] Onset: 01-23-2023 01-23-2023 Chronic Other upper respiratory disease (2 sources) Bleeding from nose; Translations: [Epistaxis] 06-26-2024 Episodic Residual codes; unclassified (8 sources) Sleep apnea; Translations: [Sleep apnea, unspecified] Onset: 01-23-2023 01-23-2023 Chronic Residual codes; unclassified (1 source) Pain, unspecified; Translations: [Pain, unspecified] Onset: 12-29-2023 Episodic Unclassified (1 source) Auditory hallucinations; Translations: [Auditory hallucinations] Onset: 02-13-2018 Episodic Past or Other Problems Problem Classification Problem Date Documented Da te Episodic/Chronic Deficiency and other anemia (8 sources) Iron deficiency anemia; Translations: [Iron deficiency anemia, unspecified] Onset: 01-23-2023 01-23-2023 Episodic Diabetes mellitus without complication (10 sources) Impaired fasting glycemia; Translations: [Impaired fasting glucose] Onset: 01-23-2023 01-23-2023 Episodic Neoplasms of unspecified nature or uncertain behavior (8 sources) Thrombocytosis; Translations: [Thrombocytosis] Onset: 01-23-2023 01-23-2023 Episodic Nutritional deficiencies (18 sources) Cobalamin deficiency; Translations: [Deficiency of other specified B group vitamins] Onset: 01-23-2024 12-20-2017 Episodic Other connective tissue disease (4 sources) Pain in left foot; Translations: [PAIN IN LEFT FOOT] Onset: 06-27-2022 Episodic Other gastrointestinal disorders (10 sources) History of bypass of stomach; Translations: [Bariatric surgery status] Onset: 12-29-2017 04-26-2023 Episodic Other lower respiratory disease (8 sources) Dyspnea; Translations: [Shortness of breath] Onset: 01-23-2023 01-23-2023 Episodic Other non-traumatic joint disorders (9 sources) Pain in right knee; Translations: [Pain in joint, lower leg] Onset: 01-24-2023 09-25-2023 Episodic Other nutritional; endocrine; and metabolic disorders (8 sources) Body mass index 40+ - severely obese; Translations: [Morbid (severe) obesity due to excess calories] Onset: 02-12-2017 Resolved: 10-31-2023 04-26-2023 Chronic Residual codes; unclassified (8 sources) Edema; Translations: [Edema, unspecified] Onset: 01-23-2023 01-23-2023 Episodic Spondylosis; intervertebral disc disorders; other back problems (9 sources) Low back pain; Translations: [Low back pain, unspecified] Onset: 01-23-2023 01-23-2023 Episodic Viral infection (8 sources) Plantar wart of left foot; Translations: [Plantar wart] Onset: 01-23-2023 01-23-2023 Episodic Results Test Name Value Interpretation Reference Range Facility Glucose (Bld) [Mass/Vol]Orde red By: Avis Ponce on 06-03-2024 Glucose Blood, POC 96 mg/dL [facility] - Hematology and Cell countson 06-03-2024 HbA1c (Bld) [Mass fraction] 5.3 % [facility] No Panel InformationOrdered By: Avis Ponce on 06-03-2024 [facility] URINE CULTURE, ROUTINEon Bacteria identified Cx Nom (U) Urine Culture, Routine [facility] Bacteria identified Cx Nom (U) Mixed urogenital corina [facility] Bacteria identified Cx Nom (U) 25,000-50,000 colony forming units per mL [facility] Bacteria identified Cx Nom (U) [facility]formed [facility]: [facility] Bacteria identified Cx Nom (U) [address] [place], [place] [id number] [facility] Bacteria identified Cx Nom (U) It Software Developer: Yash Marcum PhD, Phone: [phone] [facility] MR lumbar spine wo conon MR lumbar spine wo con [facility] Main [place] [address] [place] [id number] MRI Report Signed Patient: Marilee Arriaga MR#: [id number] : 1975 Acct:[id number] Age/Sex: 47 / F ADM Date: 09/19/23 Loc: MR Room: Type: [facility] CLI Attending Dr: Simona STOCKTON Copies to: [...] Beckford Jr., D.O.09/19/2023 2:27 PM Dictation Location: [place] [address] Transcribed By: [facility] 09/19/23 1427 Dictated By: Linden Beckford Jr, DO 09/19/23 1412 Signed By: 09/19/23 1427 Normal [facility] XR pre/post mri xrayon 09-19 XR pre/post mri xray [facility] Main [address] [address] XRay Report Signed Patient: Marilee Arriaga MR#: [id number] : 1975 Acct:[id number] Age/Sex: 47 / F ADM Date: 09/19/23 Loc: Room: Type: [facility] Attending Dr: Simona STOCKTON Copies [...] Beckford Jr., D.O.09/19/2023 3:08 PM Dictation Location: [facility] Transcribed By: [facility] 09/19/23 1508 Dictated By: Linden Beckford Jr, DO 09/19/23 1507 Signed By: 09/19/23 1508 Normal [facility] ECHOCARDIO M/2D COMPLETEon 0 11-07-2022 ECHOCARDIO M/2D COMPLETE Patient: MARILEE ARRIAGA Exam Date: 11/07/2022 : 1975 Gender:F Ordering : DR FRANCOISE MARTINEZ Admission #: [id number] Family : Order #: [id number] CLICK HERE TO VIEW EXAM ECHOCARDIOGRAM REPORT [...] Shay Masters M.D. on 11/07/2022 at 19:16 [facility] Coding Summary.on 05-04-2022 Coding Summary. CD:[id number] Gh0bWw+PG hlYWQ+SV1FOIQrL21yrDAnrC1WG1h RBN9TCANHRLJQGC4BPS3xrYK5TZgv T3BujoHs HqaawXQiXB71GIs9QWD8nDqoFCwoh F2tkDDnL6o0XaQsMR92aL86JPoeCZ DyLhM6FvBdqmakxGEk L9mlTtIroVEzUne+PHRhYmxlIHdpZ OUaKWloSFNgStDkuZmkPJ5vQw5mYI VyLWNvbGxhcHNlOiBj w6dkLFOhPOwpWN2xqYprU6GwhOK2X WJyj9n9On40jIP+OFTwEMU6aXcaQD suo606KoHdh0oyIPP6 nIQtENzsEBJ8A72cq0R3EMMxOGXiT OL4pKN4oV6mnOtdoprsJ5NdmFVfWn U2JWM2jTNfkN1tdEeq mkmcjO2oXgx+M31JAP7EPIYRQV8MH at4J7XdMciodOX+YA37DJKuLV85uW OqiGJgf9cbbBm7SlRn ULIpBPZ6aBedLMkut6FzANJuQ49eq RMxx2M5YOMoxJnhvGRdMiJvcWS6bH 4jOVelppraw0thkcwf Qdigh6axxu99pL96J59aAOhaUNFjQ AY5GCChBFMpgVdria9mlL1xNk7+ID pti3ekh9banCa2CxAf LWRmtrGeiVefSZH6a7UdAn38R2Zeo Zzku7LrAgj5qw44bJHht9J3iPE0SA qdRWPsnW4cOTluXcS3 VCArGnGrkI36gXLbQUqnIq0mqGyqe AakPD3wZFDejdypWSPgjD0tJDWjaJ ZvyRkuDM8qXPLiwokv n052GaInMMQ1HZYevGLmX4VziF5uV tOtCRQjTIPhG1ZeiYOxRQsyJ084KA vdAyM0AHIiybEmK0Dg XKVwsNgsZpJ7y1S6Wh0Qq6PhrqqoC JX0YNynTPE1IvZ6UlMbGnZ8E3SpRp h3ITDjxAcxOP3hT3Fu MQEcsgsaymvjqOQ2JMKrFIOsqD24k MYxTRmmMi1yc0U2u768JVZcDHHwiO 61Sk3qaPomQXCweWHY hJ9czuchy8cnpcatWeKoTHSfHGf9F Ct8ADVebAeeIwDaFQX8KtX0YQS0cI DxvC8hhYwyzaaaiI9c Oyc+S04xaY5wINI9CXW0glepYBMjx jEeDH05XM78C8VhGsqhhQWwcQQ+PG CenzKgkDgdND7xKgVg c1tdo2DwTMplR3IgVNLxMJbxXjg2B XUkHXI2gFY4rI5kSKUuXOetn2X3dU K5W1AcklZajr2bw1qi TRQpACghW94txAJrp4U5ZBJbiPN6B MCocEydVrAaqC53Hsx+PGNvbGdyb3 PeSfdlw6imd6tggHi3 UvLkXXXhouZeyWsuPJH4s0QmGc93G 29sIHdpZHRoPSIxNSUiIHZhbGlnbj 8dvN7eKb0+PGNvbCB3 zXK4sW1bQIQyFbJ4EDknO222OnDdi SMpCofds9mvu2eebEg1YoPgGPNtcr McyUluZTI4s3TeZs41 B12pFVtiTRVuDZAiGMEyWJJusJoxl l8boY9kCd6+VY8va2staz63cC39wV I+LGAwIMH3lIyuOLmy CXAzwS1wMXcqIpN3PEVvCiGsdB37o VQiXBpvJb2trGxhzEfgRA4mAESfkm idx884HpOnr0jrRGBm cURaTPuiYRZ1D00xy9L0TFZqYHAzX AZ7yXH4sD9vuRbrhinwhVUrfPfxiz GzrNhhGNrhAXgxV629 JZDpsVpvHmNhdKyskxEjQpKkVPy6J 1QiCmb6ZYLmrJjhJA1gcRMwIAqyOu 4wuOfnsJmfAG4tWKXp kbexu358YvLeh6akVWRnzZFhXRwaF QH6I25ui6N0BLCbIRAnLJP4oEK0oA 1hbGlnbjogbGVmdDsg xmVyoTlqPKsbMUuxG285PNBmvQqmR nIntvLeHXGfwUL7NT50ZZ51uEBzj1 K4oQH4H2OkILOtnvfc kjagbLU8PCEyYLFnjR10Nf2xkQhkX y3cQFAaUKH4KFWvlUJkH3CfdL4xAq XmCZMgEEPcC2WhrBEe CCjfF075WRssGpO2ZBDbcyPlQ6OrF VCtiWazHjW0r6R5Ph1PZ1W1BP75WR 48yMFak7K0bEN3Q9Wp HUHdupiesxeyxIA6MOSdETTopK98B q7wfQccWo8gQLMsJPF8PJCogPXoU4 IafR6jCiYqSGPaSVHd E4NxhZCcNNrnQ143CSnzPbC0ZILgi mKcT0XiDXOpcLvwMhO4h3V7Dn9SLL d5JV87MT96cYDmp6W7 tFX9F2ObPLHtlqwkdljhxDM6XDMuH DIupO18Mg0dcGrgLf0wRQUoFQW9US JcjPUbK3AvyY6bBbIp MBCcFHIzS7LenCBgNKqzN107KBlfU tS0MDVayfDhB5HwTNHtxUrlGzN0o6 J3Xl7DJTQmKB02SDD2 fMJ7LD33WR23J7KvGrpvsBOipVB+P HRhYmxlIHdpZHRoPScxMDAlJyBzdH ynSJ9uLz7hRBOsKGQb vTpidNPxMoOeh6fnIGAiUXsaDQ5vd TnjT6OboUJ8UXOee0j5Vz32X40aS9 JvdXA+OVTgyNO2aUX8 oC6dPyHgLbQ7DYlwK908KzNnsEUtE fgwq3fbc8qiwZc2KaD6OAVfmwMchJ jlRZS8m9QfLs59O10u FFkoDJFaPZZbZMQgDPWdyFngol3jo G9wIi8+KZEqfKQ7aDX7vC7oYkTyHc Y7ZBxnU126KdXnyNLy Ltkfd5xce0khzLk3KqAvUIVripWkr CdmHLZ0x4YaPl95U2NwdYpti7AmVl h3qg46sJTey1N6sUG7 F0VmNXQjfimakXIxnGxqOK6xATNuf ohvTTShlW3aZODqI6x9VhBbGcB4CE kiN6WrslU6NOZcjFXh CVjjFFT2K17oi9E2CXLqWMFxOEP1h RV7nL5twZzmzrmzyRYfkGucseLlpO wnTTygCWpuX145ZEXr kIggSDNjdF1mUFMkmBWipDdqDV5mN WPbanuxJmVKSQtUEKMFMP3WWYSOKd JCAE22WM25yQPih7M5 fNB4A1SsUVFwqtduobfsrUJ9IEXlG AEcbJ81wNOmDUdgLd4fh7M4g768AK MgDUAxaQ81Df1kwIjz BGQnoGZWxL4wiflmz2vykezvXlPyN TPsHNm2WQd6XCZufAvnKtVmANG9Ij X2XJL8rRAjqL3keMcs lnvgzB7rMhq+DTXmUxMxJGf4MDobv GQ+SMXyAWJ0fMuoWPjkZTMxwQ8sFQ PdH3w4XzLdEgK4TUaq Y6XgDBHagxwmQa12sY0sLhPaVsH4H EezX0NotuW4DREusSReOUtwNMU9S5 9wm4D6TQOeFSGeFWD8 rOL2vU8nvJlgpygldEPmfGuhcmVir TmyRIbxJNtmJ056RIUenOvfNmX0HE khEQElNV22ZT00mRLl s6K7cBB1T2FzFRQtnlskuuemhNB5T UZzPNKmzK11zIKrXNjtMr5qf1S1s6 13ZVEzNCLekG27Ae8g uXnkYZPxcWKXpO2xgxawt8kshprxK kQhEDKbJBg6UOl0ACFacPtwSfTjWM J9LsW1QTG3sOYzaZ1s sEhyaqhxvQ9lCtl+QtDjOVmfYT62D E19nFWwy3F7qZP6S6RuEANeiurpzt cuvDG6VQYiYOZmmD00 pPNpSZbtWc3mq9Q2a893BLHmHFBnh D17Of0rsFsaPXIueEANxZ6dbrsit1 xvcjogIzAwMDAwMDt0 ZBx3IAVpoZvqVcNgDLG9MbQ2VVV0l SWdkZ4oaMypakhzkR5rXwf+UmVjdX PcmC9rDL19GA13A3Hi PjwvdGFibGU+PHRhYmxlIHdpZHRoP GloYCAhGcAumWplVW3cGw4uHERkHI FuqXbvjPJoQpPhz4uy LYJuXRqbOA5boYkmY4YgwDP7LBDet 6u3Dg01J91cW6CxtFX+SSDxbPA7gC E2zS3jIiDvNcW6MEqz B333WjOlbVNyIpcxr8oyb4hzyDe6B iYuJRAhjxVhnImfBOZ9x8ReVx75V2 9sIHdpZHRoPSIyMCUi ZYCjrZupdu1ktK6cBv4+VFQggXF9y NA2fJ9nTcQfOhU6TIpcS044MsBacO AzQxexR37nP6NerHM+ VTSbHmq2JOVkpWarZH4ryCNhINkqW w0yOPX3OfYjZlRiMAscX5PwAWEyxb bfmaadeQX1HKUxSNXm hQ16Ac6csHiiIt8fDBIlDZY3OGYru SPcH9KydU0zLnUrEDCdEBUrB8PkfT RuZQhvA438FGpwVsZ7 HOJshaTnO1CcKVCqsWbgWaZ8d8Q4G o2DtMtpjAWnCC5yMyPdPAq2V3KiJz o6YVOeoJouNU8nvEPl KOoxIj4xfPcbtXtkDD3iOMPvvxcdy 811UsFfx4vyWILspMQhVVtpPGM5K6 8mo1O1LRMfFTLnKDV8 sBC1yD1bnAlkormtiVFqkPbsmnUkt IyrMKpuPOjyV268UNTutWtuVfGZTe z7Z6EcBus6MVQonDot QD4hgSHlKQgdWu4dvXnldQwwWO1wX NFaegzgc655OjHfq0twVNOqjKLwQK doSWF2Y40dz7K5BNOq KUYyMTP1xIO6dA0ogBekavsdhSRak ArohcUajTmiAQacZEqqA218UJExhY mmUu3EGfg6R6DdPdl5 YKYddVpvIO5hwNUkNNvgRu4ueEvkb UeoYW3iOYVtfwcbo490WpOnx2gqTJ MicKJcUHeuEOS9F00j o6K3OIYyKUBnAZZ1eRH0jE7ltYmon jogbGVmdDsgdmVydGljYWwtYWxpZ2 46IHRvcDsnPlBheWVy OjwvdGQ+BY86ge01Y7FdWvzbTee6C EKtIRI9tUD3wW0hFXZrEDmzj7W9eT W0A9XuwlLhqm5ik3wb YXBz (more content not included)... [facility] Consent for Treatmenton 0 Consent for Treatment [id number]#1.00CD:127 [facility] Outside Records Officeon Outside Records Office [id number]#1.00CD:127 [facility] Physician Orderon 04-14-2022 Physician Order [id number]#1.00CD:127 [facility] Coding Summary.on 11-12-2021 Coding Summary. CD:[id number] Gh0bWw+PG hlYWQ+MX3IKVBdT15jcYXofM3FQ2y IMV9VPLJBBIGNOE2DSS6ubVR2JBbr D0ZovtCs ZxoycXJcMN06AOd7MSE1yIaxPGxof K1woXNyE2o4UiWyRJ90xB67JYrbVA TxBdP2RdDapewzhOCo L1yoIhOtgZZoTcp+PHRhYmxlIHdpZ SHrFTkzVTTeVhCwdZssJS7xOi4cYP VyLWNvbGxhcHNlOiBj y1fdGMAaNPgwXP2nyZgkJ7JaeMP1H ZYuj3n7Ws00cVH+EXDpMMA0kPbhTN cpo786EdLag5raGQT1 pODoOVpdZMY4E78dy5X9XLIoBJKsM CR9nRU9uW3pkTpjukgaV8GgbZEoVi J3OWO2fNHtlV1hbMfd aqcrgW9mEex+H75FIX0XWUTXUD7ZY dw3S0OhJssjgAG+HD65BQLxUX78yQ FktPZnt8woqKo4SqCk WKBqIMB8sTgrAAjgn7SyJXNqC53bq NDcx5J8TLUqsHvbnEMxClWjsZS3cY 7rCBxucngod4rbmqmh Xifdx8zpuj82gW13K58mPQgjLTCbN MB0SSQfOGKxrFzsoo2zgK8eVl5+ID tze8ees3heaHw3AcWm LAZhtjRoaVczRMU6a0MpXu67T5Mgq Jxuk9EvWqe2pv82pAThl3J6sWJ6NS soWLJdeK1tTWnpNvV9 CDGjFyBojN62vBJxLGjwEd8niJnlb JhgGV0fHCZsyfkeFAItqB3uAXBwgP GhsEdxTV5iCBPokctq o834BhYdUMU5PPSkyDKcU2MqqC2jK kLoYKXlNTWwD4FnwRMkQPppO380EB mjUcG5ECCoenBaS0Qd MJZptJeoQuG1c9T1Ov4Jg1XeyalbD QF0OVtgTBKsUoR5ArNuGjR9V0ZhHz j0GLJfeGzqUH5gO9Yh BPLzwehdcteneOS5EQCqKJNkeS29a MRbQVqxUp7yq6O7j611NLIcNVGtyP 45Ni0doKlxUZSppKUZ fC7duhcxx7zlrveyWfDbANCfMEm2Z Al5RHVjmSbnLzEcZTE5ZuK4ABN7eF GmcE2yiFnhhwpadR6e Oyc+Z97aaJ8zJME1IMG4rcipKKVyt kRpNZ21BA01G3KxXsureZSegXS+PG CkaaFmjQsbGU2pThLs l8ufl5HhWTvgT1AuMRLtKGzhKms3C QDbKBF7tQC3bU5vNXFoJJpxy2P7rD F8X3PkpvIjxx2xn9bq HOIfEIlfS16dnCGft7F6KVYtqWJ5T CQidOycGvThoI42Dxu+PGNvbGdyb3 VbQpciq8jwd6vheMt2 CvZdCALktwOosLwoOWR6z6XsGi71B 29sIHdpZHRoPSIxNSUiIHZhbGlnbj 5ncU4kWp2+PGNvbCB3 uGA9hR1kXMQbQpK2AAfhA975HwKak OYfRosvf7vxs7mzvLg8ZcPbODVmdm VtkSmkQRK2e4NpQe20 L65kVCvmPWMuBDBzMTZiLUPfiQsid u3foQ7cNp4+HU6lq4oran69oQ58iT I+NTLiCPY5fRliFBwv NHXsdR1xMDjyPxJ4ZRKpEpCjlU36z IIcEYffWc1upQrdgLenIZ6qRTVmme ofn076KuFtz6vvDXOj tQMjNWbjZUB3G17bt4M2GPRwJWZsC SR6fAV3tD6rhAwzlzwepIFcvAshuh HugHqmNGrgNTxwE943 DTOyuQyyStVvpKrtroYxVbTwXXl5V 7EmCbt2SKJftKxkAR3lnHJlPAmuIl 8pxVbcpObbRM2sBLZi dbnrj525AeCnk8huSQYtsXZtMCxjE NY1P42nb8G9TICiPKUqAWP5zHL9mI 1hbGlnbjogbGVmdDsg juYmwJfhBVodTExuX273AHBtgRopR pWdqhKtWKKbpLY5JQ44IS35cVIuu6 M3qYF4Y7OkWKNpwsct txfugDZ9RTHiQOIhnZ11Bn9qrSzoS b9iKWIlIQK1ZGZjeZUvI6WhiW2oDt SqPMBfXUAmC0IkaQIa UUrqI101DRynDlO7SIVrfmJpZ7YhY DLskGgpAqA6k4Z3Lj8AA7I2GM21IP 99sHBbg9F9aEU9D5Pd VTOkunliomfmzFU8HHXaKGRdnX72X x4jfSbsMj6uRTKeKTO4CCZkfWXwJ6 XgbU9eVqQsASEzLOIx Y2EfwQXbFXsyW112PGxuLuC6TQCnh uGyK8FkMFXfnNfnPrC7l2M3Pl4EUK m2TH72FH95yKAst3F0 xEB5N1VeKDOfimlnklxfrZP5BDVoG BZcbA79Ck3miHcxXb3iMZSgOQW4NM OmhJPcT5PocD3qUiMd FMIuHKTlV4NekSSfTPgbB939CQoeE jL0GHMbpyStS8ZaOUPipHgyUcG3i0 R8Oh5QLWUtDY20CHL8 oZY3WM06XX54P1YiEldoyIXnjMV+P HRhYmxlIHdpZHRoPScxMDAlJyBzdH pnGB3bZj1qAOHhQPKk mYspwFWlEnLqy7niVAXgSEvuAS1yd ZpoM6GplPK6YULtm6m3Dc95V81aN9 JvdXA+GRSweXC7vEQ4 mU4uGhUkPqG3EIfxG786GrKtmGEsA tizg2zpu9dzvRm8VnV2CJOixiMclH jrEAM0t7XlSs90P17v DDrdOVUbXHNuRGSeYJOuiYlyue6ix G9wIi8+KUEjhML3xQZ1bM3rHsQyAs H2ZEsrO883TuQxmRYr Bzris1eae9hsvUo5GuAvCUSukvSit XxwGAL3z7EiFk71Y4EtbAous2PzUf f9fs60aBXwz3A5tJU9 R9XcFCRssevzgAGbdLqqNZ4xALRsc bdcPOHvfS5vYZVfH0m3QsKpWyX9CT dzX5PsvuP8BXVoyGYy KRgyTRW1B38at3N5OFKxQSOkTZH4t BH7pC2ulLzoddytfZQmsOuloxWnqI fxAAexTLntP247AKMg yIwvVQAmoV0cCXXrlLXflUuqNF0sY LKpvetbLxCMZUvWBZMMFX8SNUVHEo BFEN45RT85zGKtq0R7 vHD2Z1NxLYQdunqcqucjmKQ6DBWnC KXggH06rTAkKDpwNc0lk2A2m167UD PzFDIndE92Rh9hjVnn EJUjsDRZyN7mopnci1nolvmmGtIoE WVdTAp0ZGy9JXFesPecAqHsMLY5Kb K9TBG2cJOsiS5gaDwg vsppmO3pJmx+FFVjNeHaKNf7BQexm GQ+VLOjFRN2mSvbAEyaWSSfxB7pBY ReT1d4RbBrGbT7AHvf V6RjNZHptnvxYg22jE0dSdHbYjF6L LbhQ8IgugW7HLQcbBIyHEdzCLN2O9 6ql0H0WUCmBABgLWM8 uBY0kP0hqYapmxxooEDtnEhjevNbp GctTBctXRdwD322LPOyeGeyMiJdGV kyMLHfUW90LA22tEDe f5T2oIG5N3NkSQUyvyvmeceupUB7H NYpLMZtaB10tKMzJTqoPl4sr0Z0h7 83GEVkFLIplV18Dv8v bAjbPDDldXMLfO7bfhorj9vaqddxL dGyGZNdVGv6VLa5QGTlgDujLsWlXC H4MyM1SHA5mJFezP7h aIwtywgubX2vJyf+OsXyPRdkFZ26C V86eRZvy2Q5pRP2V0KcDQBnkmvack ijnLZ5BYOqPXChkT95 vQDiHIbaSk3gq5F1b913KZEkIWVxk L17Px1yoBsbYYVeiURDvV5mbqtem2 xvcjogIzAwMDAwMDt0 WWa8CIQwkVfzYnGsUPN1HyJ4IWF7j IQutM9vnWyyqgtpoF5kIpr+RW1lcm ictqM8PN15TL28I5Io PjwvdGFibGU+PHRhYmxlIHdpZHRoP QwgOEZlMjQqiCxqLG4aKv5gDLTfNM IbuLsdlOBoHaRfj1zq ACTvMQlcDB3ocMwlA5HquNI1OICpu 6s1Fr46S09vV2XzpMC+ZVBxhNO1rZ I0gC8uKhBbNsQ7IJcm P043NgKucHLqXdbxl9jhz5xzwKf8O gQzLXDqxnReuJfxAIT3r7CmWk32R0 9sIHdpZHRoPSIyMCUi DFTyiMgwct7jeK7vOf4+ZXZluFD0p SE7fQ8lPrZnLjM6WWjtK017VlXapP OrGgnrC39iY5EzxOD+ KPHlFoz8FTCasUtzGU1flDYqQXfiO j1hEAG4QtAdJuGjWYusO5LfMNHflp vzpyynhWJ5IIOpAUZl lG43Ia7hwKmoIy7hDOOcTEH1JTSmi UCvT2TjlH8jUlHiRMQtBCArY7WesP YsDRmyK991QGhqNjR3 XNJexqRsM2YaRTEfnBufLqH7y8K1K q9GuNnjgNDcIU3ePmZhQVr1I7KkSc p8ASQuvHcqFB9akIMw VIcrKj2rqTyioKjvUZ9iATTadupti 974GjAkd0kwDPHqrDMpJGqtVIU2P1 2oy5Z2XDAeELDoTPK3 rKW2cL8rsPkhxekhwJOtmNuwztTkm PewAXucNScjD670FQKiwRusTtRHRg l9P5EjRyw2WIRjaWzq JK8zzNQfPXdwTr1faUyvzMykFL9fH PFjhufro401GwBze8lgMRUalAGdZJ usGVZ8Z68rw9P1VEYv KYXnCCS9dIP6bR8sjFeosnwpkTXbn QhzanNryVhiGAtqEWjiL802HICveP zpCl2GBas8B3VxFbs9 GODknUbvBK3ecRTeLMkuEx7paUrzj RfzUW5gEYDlnvwsb747FlOuk6vmTJ DjgISyENhkJFN6O60a r7P5LFYsIJPoRFZ7gIR2mU3ziGilp jogbGVmdDsgdmVydGljYWwtYWxpZ2 46IHRvcDsnPlBheWVy OjwvdGQ+HH28vb40X7MxPnhcCre2J FTeFEX6qWF9mQ5lPKMbGWcip2F6rX C2L7ZhthOamq8jp7nm YXBz (more content not included)... Normal [facility] Consent for Treatmenton 10-19 Consent for Treatment [id number]:127 Normal [facility] Discharge Instructionson Discharge Instructions [id number]#1.00CD:127 Normal [facility] ED Clinical Summaryon 2021 ED Clinical Summary (Inserted Image. Maria Del Rosario ble to display) [address] [address] ED Clinical Summary Person Information Name: MARILEE ARRIAGA [place] Age: 45 Years : 1975 Sex: Female Language: Greenlandic PCP: FRANCOISE GAY Marital Status: Single Visit [...] 16:00:59 11/05/2021 16:00:59 11/05/2021 16:00:59 [address] [address] [facility] [id number] PHYS DOC NOTES: MEDICAL INFORMATION: Prescriptions Given: New Medications [facility]/pharmacy #[id number], [address] [place], [place] [id number], [phone] acetaminophen-hydrocodone (Guy 325 mg-5 mg oral tablet) 1 Tablets [...] up: With: Address: When: [address] [place] [address] Business (1) In 3 days 11/08/2021 Comments: Return to the emergency room if your pain gets worse or any new symptoms. With: Address: When: FRANCOISE BARNES [address] [place] [id number] Business (1) In 3 days DIAGNOSIS: 1:Avulsion fracture of left ankle; 2:Sprain of left foot Normal [facility] ED Note-Physicianon 11-06-19 ED Note-Physician Basic [...] and crutches was given. Patient was given Guy in the emergency room. Will discharge patient home with Guy and follow-up with Ortho. The OARRS report [...] needed for pain, 10 tab(s), Refill(s) 0, [facility]/pharmacy #[id number], 158, cm, 11/05/21 13:26:00 EDT, Height/Length [...] Foot 3+ Views Left Medications Administered Given Guy 5/325 Tab, 1 tab(s), Oral Disposition Plan Patient Discharge Condition Stable Discharge Disposition Discharged home Discharge Prescription List Prescriptions Guy 325 mg-5 mg oral tablet, 1 tab(s), Oral, q6hr, PRN Follow-up With When Contact Information Em Mir In 3 days 11/08/2021 EDT [address] [place] [address]- Business (1) Additional Instructions: Return to the emergency room if your pain gets worse or any new symptoms. FRANCOISE BARNES In 3 days [address] [phone]- [facility] (1) Additional Instructions: Patient Education [...] Tab, 100 mg= 1 tab(s), Oral, Daily Guy 325 mg-5 mg oral tablet, 1 tab(s), Oral, q6hr, PRN ondansetron 4 mg/5 mL oral solution Prozac 20 mg Cap, 20 mg= 1 cap(s), Oral, Daily Prozac 40 mg Cap, 40 mg= 1 cap(s), Oral, Daily Qvar with Dose Counter 80 mcg/inh inhalation aerosol ranitidine 150 mg Tab, 150 mg= 1 tab(s), Oral, BID SEROquel 100 (more content not included)... Normal [facility] Comment on above: Result Comment: Elec [...] Reviewed: 01/27/2017 Elsevier Patient Education ? 2019 [employer] How to Use a Stirrup Ankle [...] the bra (more content not included)... Normal [facility] ED Patient Summaryon 022 ED Patient Summary (Inserted Image. Maria Del Rosario ble to display) [address] [address] Patient Discharge Instructions Person Information Name: MARILEE ARRIAGA Age: 45 Years Arrival Date: 11/05/2021 13:19:01 Discharge Diagnosis: 1:Avulsion fracture of left ankle; 2:Sprain of left foot Primary Care Physician: FRANCOISE GAY Provider Information Primary Provider: Tyler Petersen M.D. Advanced Inter Com Servicer:None The exam and treatment you received in the Emergency Department were for an urgent problem and are not intended as complete care. It is important that you follow up with a doctor, nurse practitioner, or physician?s registered medical assistant for ongoing care. If your symptoms [...] Instructions: With: Address: When: [address] [place] [address] [employer] (1) In 3 days 11/08/2021 Comments: Return to the emergency room if your pain gets worse or any new symptoms. With: Address: When: FRANCOISE BARNES [address] [place], [place] [phone] Business (1) In 3 days In the [...] opioids can be used to help relieve pmnemnps-md-rfncyk pain and are often prescribed following a [...] Administration (www.fd (more content not included)... Normal [facility] XR Ankle 3+ Views Lefton XR [...] Barnett MD Transcribed by: KAIDEN Technologist: Normal [facility] XR Foot 3+ Views Lefton 10-19 XR Foot 3+ Views Left Exam Date/Time: 11/05/2021 13:50 EDT Reason for Exam: Fall Report Refer to concurrent left ankle radiograph dictation. FINAL REPORT Dictated: 11/05/2021 2:04 pm Rony Barnett MD Signed (Electronic Signature): 11/05/2021 2:04 pm Signed by: Rony Barnett MD Transcribed by: KAIDEN Technologist: Normal [facility] MRI BRAIN W WO CONTRASTon MRI [...] SITES OF DEMYELINATION.RHINITIS.Interp reted by:SUMANTH Garciaigned by:Margo Rodríguez MD02/13/18inal result Normal [facility] CNDSon 02-16-2017 CNDS HNO ID: [id number] thor: Mark Anthony (Romain) TedService: General SurgeryAuthor Type: ResidentType: Discharge SummariesFiled: 02/16/2017 11:44 AMNote Text:The [place] [phone] or [phone] [facility] O N F I D E N T I A L I N F O R M A T I O N -------[facility] DOCUMENTDISCHARGE SUMMARYPatient Name: Marilee Buckner Date: 02/13/2017Discharge Date: 02/16/2017Attending Physician: DENIZ Pfeifferrincipal Diagnosis: Morbid obesitySecondary Diagnoses:Patient Active Hospital Problem List: Obesity, Class III, BMI >= 40 (morbid obesity) ([facility]) E66.01 (02/12/2017) Morbid obesity ([facility]) (02/13/2017)Operations During Hospitalization:Laparoscopic Crystal en Y gastric [...] as needed.Future Appointments:Future AppointmentsDate Time Provider Department [place]02/23/2017 2:30 PM [id number] MORENO GENBMI GENS A/M 03/09/2017 11:00 AM [id number]-TWVETEPHHX, KASEY (PHD) GSPSMN GENS A/M 03/16/2017 12:00 PM [id number]-VPSORHRIPOTU 2 GENBMI GENS A/M D04/06/2017 1:45 PM [id number]-DFRCACEAPRENÉE LUNDBERG GENBMI GENS A/M D05/16/2017 10:30 AM [id number]-IIKFSLISSY SOTO GENBMI GENS A/M D05/16/2017 10:30 AM [id number]-AVZKMLISSY TAM GENBMI GENS A/M BLDPatient will follow-up in clinic with Renée Moreno MD as scheduledabove, or sooner if the need arises.Electronically SIGNED by Licensed Independent Practitioner: Mark Anthony Jean MD [facility] Glucose POCT (East, [place], [place] A Use Only)on 02-16-2017 Glucose mass conc 105 mg/dL High 65-100 [facility] Comment on above: Performed By: #### G LUP ####[facility] [place], [place] [phone] NURSING PROGon 02-16-2017 NURSING PROG HNO ID: [id number] thor: Lilibeth Ortega (Rn) Doroteo Santos: (none)Author Type: Registered NurseType: Nursing Progress NoteFiled: 02/16/2017 11:37 AMNote Text: Nursing Progress NotePatient Name: Marilee SmithTracyN: [id number] [facility] _Daily Note: Patient has been discharged home; [...] note was completed by: Lilibeth Santos RN [facility] NURSING PROG HNO ID: [id number] thor: Lilibeth Ortega (Rn) Doroteo Santos: (none)Author Type: Registered NurseType: Nursing Progress NoteFiled: 02/16/2017 10:27 AMNote Text: Nursing Progress NotePatient Name: Marilee OlivierJustinN: [id number] [facility] _Daily Note: Doing better this am, able to take all of pills and drink theKphos, took a shower, so taking in more po, pain controlled, no emesis, nomore bloody stool, ambulating VSS, on RA, expecting to go home today,continue to monitor.This note was completed by: Lilibeth Santos RN [facility] PROGRESSon 02-16-2017 PROGRESS HNO ID: [id number] thor: Hiram (Res) HuysService: General SurgeryAuthor Type: ResidentType: Progress NotesFiled: 02/16/2017 8:02 AMNote Text:General Surgery Progress NoteName: Marilee OlivierirMRN: [id number]: 02/16/2017SUBJECTIVESubjective : No acute events overnight. Last [...] lb) LMP 01/27/2017 SpO2 94% BMI 62.73 kg/a5Brlxjf/Output Summary (Last 24 hours) at 02/16/17 0759Last data filed at 02/16/17 0616 Gross per 24 hourIntake 290 mlOutput 950 mlNet -660 mlGeneral: NAD, alert, orientedLungs: nonlabored breathing on nasal canulaAbdomen: soft, nondistended, appropriately tender, incisions C/D/IExtremities: warm, well perfusedLabsCBCRecent Labs 02/15/1709WBC 13.80* 11.75* 15.32* 15.53*HB 10.7* 10.9* 13.5 14.7HCT 32.6* 33.8* 40.2 44.1PLT 391 368 438* 479*BMPRecent Labs 02/14/1705233NA 141 137 137 138K 4.2 4.5 4.0 4.6CHLOR 104 99 97 97*CO2 27 25 20* 24BUN 15 8 14 19CREAT 0.78 0.71 0.74 0.84GLUC 119* 115* 96 79CA 8.1* 8.8 9.9 9.4ASSESSMENT/PLAN41 year old female with morbid obesity now POD 3 s/p jkwqgpvejrffQksg-tt-W gastric bypass. Bloody bowel movements resolved with stable H/H.- Phase 2 bariatric diet- Heplock IV- Wean O2- PO pain meds, hold toradol- Will discuss resuming DVT prophylaxis- Encourage incentive spirometry and ambulation- Anticipate discharge today on home Richelle Gordon MDGeneselect medical specialty [facility] Surgery ResidentPager [phone] Normal [facility] Basic Metabolic Panlon 02-15 Anion gap 10 mmol/L Normal 9-18 [facility] Comment on above: Performed By: #### B REGGIE COLEY, PHOS ####[place] [id number] Calcium 8.1 mg/dL Low 8.5-10.5 [facility] Comment on above: Performed By: #### B VIANCA MG1, PHOS ####[place] [phone] Chloride 104 mmol/L Normal 98-110 [facility] Comment on above: Performed By: #### B VIANCA MGJose, PHOS ####[place] [id number] CO2 27 mmol/L Normal 23-32 [facility] Comment on above: Performed By: #### B VIANCA MGJose, PHOS ####[place] [id number] Creatinine 0.78 mg/dL Normal 0.70-1.40 [facility] Comment on above: Performed By: #### B VIANCA MGJose, PHOS ####[place] [id number] eGFR (non-black) mL/min/{1.73_m2} Normal >60 [facility] Comment on above: Performed By: #### B VIANCA MG1, PHOS ####[place] [id number] Glucose mass conc 119 mg/dL High 65-100 [facility] Comment on above: Performed By: #### B VIANCA MG1, PHOS ####[place] [id number] Potassium molar conc 4.2 mmol/L Normal 3.5-5.0 [facility] Comment on above: Performed By: #### B VIANCA MG1, PHOS ####[place] [id number] Sodium 141 mmol/L Normal 132-148 [facility] Comment on above: Performed By: #### B REGGIE COLEY PHOS ####[place] [address] Urea nitrogen 15 mg/dL Normal 8-25 [facility] Comment on above: Performed By: #### B REGGIE COLEY PHOS ####[place] [address] CBCon 02-15-2017 Erythrocyte distribution width Auto Ratio (RBC) 12.9 % Normal 11.5-15.0 [facility] Comment on above: Performed By: #### C BC ####[place] [address] Erythrocytes (RBC) 3.63 10*6/uL Low 3.90-5.20 [facility] Comment on above: Performed By: #### C BC ####[place] [address] Hematocrit (HCT) 33.8 % Low 36.0-46.0 [facility] Comment on above: Performed By: #### C BC ####[place] [address] Hemoglobin mass conc (Bld) 10.9 g/dL Low 11.5-15.5 [facility] Comment on above: Performed By: #### C BC ####[place] [id number] MCH 30.0 pG Normal 26.0-34.0 [facility] Comment on above: Performed By: #### C BC ####[address] MCHC mass conc (RBC) 32.2 g/dL Normal 30.5-36.0 [facility] Comment on above: Performed By: #### C BC ####[place] [id number] MCV 93.1 fL Normal 80.0-100.0 [facility] Comment on above: Performed By: #### C BC ####[place] [phone] Platelet mean volume (PMV) 8.5 fL Low 9.0-12.7 [facility] Comment on above: Performed By: #### C BC ####[phone] Platelets 368 10*3/uL Normal 150-400 [facility] Comment on above: Performed By: #### C BC ####[phone] WBC (Leukocytes) 11.75 10*3/uL High 3.70-11.00 [facility] Comment on above: Performed By: #### C BC ####[place] [phone] CBC and Differentialon 02-15 Abs Baso 0.02 k/uL Normal 0.00-0.10 [facility] Comment on above: Performed By: #### C BCDIF ####[place] [phone] Abs [place] 0.97 k/uL High 0.00-0.86 [facility] Comment on above: Performed By: #### C BCDIF ####[phone] Abs Neut 8.11 k/uL High 1.45-7.50 [facility] Comment on above: Performed By: #### C BCDIF ####[place] [phone] Basophils/100 WBC Auto (Bld) 0.1 % Normal [facility] Comment on above: Performed By: #### C BCDIF ####[place] [phone] DTYPE Auto Diff Normal [facility] Comment on above: Performed By: #### C BCDIF ####[place] [phone] Eosinophils 0.35 10*3/uL Normal 0.00-0.45 [facility] Comment on above: Performed By: #### C BCDIF ####[place] [id number] Eosinophils/100 leukocytes 2.5 % Normal [facility] Comment on above: Performed By: #### C BCDIF ####[address] Erythrocyte distribution width Auto Ratio (RBC) 13.1 % Normal 11.5-15.0 [facility] Comment on above: Performed By: #### C BCDIF ####[place] [id number] Erythrocytes (RBC) 3.51 10*6/uL Low 3.90-5.20 [facility] Comment on above: Performed By: #### C BCDIF ####[place] [id number] Hematocrit (HCT) 32.6 % Low 36.0-46.0 [facility] Comment on above: Performed By: #### C BCDIF ####[place] [phone] Hemoglobin mass conc (Bld) 10.7 g/dL Low 11.5-15.5 [facility] Comment on above: Performed By: #### C BCDIF ####[address] Lymphocytes 4.35 10*3/uL High 1.00-4.00 [facility] Comment on above: Performed By: #### C BCDIF ####[address] Lymphocytes/100 leukocytes 31.5 % Normal [facility] Comment on above: Performed By: #### C BCDIF ####[place] [phone] MCH 30.5 pG Normal 26.0-34.0 [facility] Comment on above: Performed By: #### C BCDIF ####[place] [phone] MCHC mass conc (RBC) 32.8 g/dL Normal 30.5-36.0 [facility] Comment on above: Performed By: #### C BCDIF ####[place] [phone] MCV 92.9 fL Normal 80.0-100.0 [facility] Comment on above: Performed By: #### C BCDIF ####[place] [phone] Monocytes/100 leukocytes 7.0 % Normal [facility] Comment on above: Performed By: #### C BCDIF ####[place] [phone] Neutrophils/100 WBC Auto (Bld) 58.9 % Normal [facility] Comment on above: Performed By: #### C BCDIF ####[place] [phone] Platelet mean volume (PMV) 8.3 fL Low 9.0-12.7 [facility] Comment on above: Performed By: #### C BCDIF ####[place] [phone] Platelets 391 10*3/uL Normal 150-400 [facility] Comment on above: Performed By: #### C BCDIF ####[place] [phone] WBC (Leukocytes) 13.80 10*3/uL High 3.70-11.00 [facility] Comment on above: Performed By: #### C BCDIF ####[place] [phone] Glucose POCT (East, [place], [place] A Use Only)on 02-15-2017 Glucose mass conc 111 mg/dL High 65-100 [facility] Comment on above: Performed By: #### G LUPOC ####[place] [id number] Glucose mass conc 121 mg/dL High 65-100 [facility] Comment on above: Performed By: #### G LUPOC ####[place] [address] Glucose mass conc 99 mg/dL Normal 65-100 [facility] Comment on above: Performed By: #### G LUPOC ####[place] [address] Glucose mass conc 116 mg/dL High 65-100 [facility] Comment on above: Performed By: #### G LUPOC ####[place] [address] Magnesiumon 02-15-2017 Magnesium 2.0 mg/dL Normal 1.7-2.6 [facility] Comment on above: Performed By: #### B MP, MG1, PHOS ####[place] [address] NURSING PROGon 02-15-2017 NURSING PROG HNO ID: [id number] thor: Lilibeth Ortega (Rn) SUNSHINE Santoservice: (none)Author Type: Registered NurseType: Nursing Progress NoteFiled: 02/15/2017 4:15 PMNote Text: Nursing Progress NotePatient Name: Marilee SmithRN: [id number] Location: [place] [address] _Daily Note: Dr called to inform that patient had another bloody stool itwas dark red, no change in vital signs HR has remained in 70's, on RA, noincrease in pain, patient is only taking sips of clears otherwiseunchanged , stable, lab orders again @ 1800.This note was completed by: Lilibeth Santos, BEBETO Normal [facility] NURSING PROG HNO ID: [id number] thor: Lilibeth Ortega (Rn) Doroteo Santos: (none)Author Type: Registered NurseType: Nursing Progress NoteFiled: 02/15/2017 10:29 AMNote Text: Nursing Progress NotePatient Name: Marilee SmithRN: [id number] Location: [place] [id number] _Daily Note:Patient states she's feeling ok, just brought up some 'phlegm',( clearbubbles) no emesis, able to keep down 'bites' or sips of broth and tea,given IV phenergan, denies pain, encouraged to continue to ambulate,stable, call light in reach.This note was completed by: Lilibeth Santos RN [facility] NURSING PROG HNO ID: [id number] thor: Liliana Echeverria) Doroteo Seth: (none)Author Type: Registered NurseType: Nursing Progress NoteFiled: 02/15/2017 5:53 AMNote Text: Nursing Progress NotePatient Name: Marilee SmithRN: [id number] Location: [place] [id number] _ Surgery paged [id number] Marilee Arriaga: patient had dark bloody BM. [place] [id number] No new ordersThis note was completed by: Liliana Seth RN [facility] PROGRESSon 02-15-2017 PROGRESS HNO ID: [id number] thor: Mark Anthony (Romain) TedService: General SurgeryAuthor Type: ResidentType: Progress NotesFiled: [...] RNF, potential discharge tomorrowPaul MD Ted (PGY 2)[id number] 6PM weekdays and all through weekends: [id number] SNausea and emesis yesterday, improving and PO intake improvingSlept okayDark bloody BMs this AMAmbulating well OTemp (24hrs), Av.7 ?C (98 ?F), Min:36.4 ?C (97.6 ?F), Max:36.9 ?C(98.4 ?F)BP 147/78 Pulse 80 Temp 36.4 ?C (97.6 ?F) (Oral) Resp 16 Ht 154.9cm (5' 1 ) Wt (!) 150.6 kg (332 lb) LMP 01/27/2017 SpO2 99% BMI62.73 kg/t4FLCVZWX: Mild distress as actively nauseated and sitting up with vomitbag, alert and oriented x 3HEENT: NC/AT, EOM's intactRESPIRATORY: Respiratory effort unlaboredCHEST-CVS: HDSABDOMEN: Soft, obese and non distended, non tender, laparoscopic incisionsCDI with glueNEURO: Grossly non-focal02/14 0700 - 02/15 0659In: 3622 [PO:300; IV:3322]Out: 2180 [Urine:1850] Normal [facility] PROGRESS HNO ID: [id number] thor: Renée MorenoSerankitae: General SurgeryAuthor Type: PhysicianType: [...] as PO intake improvesStreggie Moreno MD Normal [facility] Phosphoruson 02-15-2017 Phosphate 1.9 mg/dL Low 2.5-4.5 [facility] Comment on above: Performed By: #### B MP, MG1, PHOS ####[facility] [place], [place] [phone] Vital Signs Date Time Vital Sign Value Performing Clinician Facility 06-26-2024 13:42-0500 Body height 157.5 cm Placido Rodríguez [employer] BLOCK[employer] Work Phone: [facility] 06-26-2024 13:42-0500 Body mass index (BMI) [Ratio] 58.53 kg/m2 Placido Rodríguez [employer] BLOCK[employer] Work Phone: [facility] 06-26-2024 13:42-0500 Body weight 145.15 kg Placido Rodríguez [employer] Work Phone: [facility] 06-26-2024 13:42-0500 Diastolic blood pressure 84 mm[Hg] Placido Rodríguez STAMPER BLOCKER Work Phone: [facility] 06-26-2024 13:42-0500 Heart rate 90 /min Placido Rodríguez [employer] BLOCKER Work Phone: [facility] 06-26-2024 13:42-0500 SaO2% (BldA) [Mass fraction] 96 % Placido Rodríguez [employer]AM[employer] BLOCKER Work Phone: [facility] 06-26-2024 13:42-0500 Systolic blood pressure 128 mm[Hg] Placido Rodríguez [employer] BLOCKER Work Phone: [facility] 06-03-2024 13:34-0400 Body height 157.5 cm Coy Ramírez MD Work Phone: [facility] 06-03-2024 13:34-0400 Body mass index (BMI) [Ratio] 59.26 kg/m2 Coy Ramírez MD Work Phone: [facility] 06-03-2024 13:34-0400 Body weight 146.97 kg Coy Ramírez MD Work Phone: [facility] 06-03-2024 13:34-0400 Diastolic blood pressure 78 mm[Hg] Coy Ramírez MD Work Phone: [facility] 06-03-2024 13:34-0400 Heart rate 78 /min Coy Ramírez MD Work Phone: [facility] 06-03-2024 13:34-0400 Respiratory rate 18 /min Coy Ramírez MD Work Phone: [facility] 06-03-2024 13:34-0400 Systolic blood pressure 118 mm[Hg] Coy Ramírez MD Work Phone: [facility] 09-19-2023 09:41-0500 Body height 157.48 cm [facility] 09-19-2023 09:41-0500 Body weight 104.32 kg [facility] Encounters Encounter Date Encounter Type Care Provider Facility Start: 06-26-2024 End: 06-26-2024 Bamboo flowsheet Placido Rodríguez [employer]AM[employer] BLOCKER Work Phone: [facility] Start: 06-26-2024 End: 06-26-2024 Bamboo flowsheet Placido Rodríguez [employer]AMPER BLOCKER Work Phone: [facility] Start: 06-26-2024 End: 06-26-2024 ambulatory PLACIDO RODRÍGUEZ Not Available Start: 06-26-2024 End: 06-26-2024 Office outpatient visit 25 minutes Placido Rodríguez [employer]AM[employer] BLOCK[employer] Work Phone: [facility] Comment on above: Thrush, oral (Primar y Dx); Left-sided epistaxis; Fall in home, initial encounter Start: 06-24-2024 End: 06-24-2024 ambulatory Najma Richardson MD Facility:[facility] Start: 06-21-2024 ambulatory Jamey Minor acility:[facility] Start: 06-10-2024 End: 06-10-2024 ambulatory Najma Richardson MD Facility:[facility] Start: 06-03-2024 End: 06-03-2024 Office outpatient visit 25 minutes Coy Ramírez MD Work Phone: [facility] Comment on above: Hypoglycemia (Primar y Dx); S/P gastric bypass; IFG (impaired fasting glucose); Weight gain; Encounter for dietary consultation; Class 3 severe obesity due to excess calories with serious comorbidity and body mass index (BMI) of 50.0 to 59.9 in adult ([facility]) Start: 06-03-2024 End: 06-03-2024 ambulatory COY RAMÍREZ Not Available Start: 05-31-2024 End: 06-03-2024 Clinisync Result Encounter Generic External Data Provider [facility] Unsolicited Start: 05-31-2024 End: 06-03-2024 Clinisync Result Encounter Generic External Data Provider [facility] External [facility] Unsolicited Start: 05-27-2024 End: 05-27-2024 ambulatory Najma Richardson MD Facility:[facility] Start: 05-21-2024 End: 05-21-2024 Telephone [...] M HEMMER Not Available Start: 01-04-2024 ambulatory [facility] Start: 12-29-2023 ambulatory [facility] Start: 2023 End: 2023 ambulatory [facility] Start: 12-12-2023 End: 12-12-2023 ambulatory [...] Start: 09-19-2023 End: 09-19-2023 Patient encounter procedure [facility] [place] Work Phone: Start: 09-19-2023 End: 09-19-2023 ambulatory NON STAFF [facility] Work Phone: Start: 08-05-2023 End: 08-05-2023 ambulatory FRANCOISE M HEMMER Not Available Start: 07-26-2023 End: 07-26-2023 ambulatory FRANCOISE BARNES Not Available Start: 07-17-2023 Registered [facility] Start: 11-07-2022 End: 11-08-[address] FRANCOISE BARNES Facility: Start: 06-27-2022 End: 06-27-2022 ambulatory SUNSHINE NEWMAN . Facility: Start: 04-27-2022 End: 10-26-2022 ambulatory FRANCOISE BARNES Facility:[facility] Start: 04-22-[address] FRANCOISE BARNES Facil ity:H1 Start: 11-05-2021 End: 11-05-2021 Emergency department patient visit Tyler Petersen Facility:[facility] Start: 09-18-2018 Patient encounter procedure Ida Weber Facility:[id number] Start: 05-08-2018 Patient encounter procedure Ida Weber Facility:[id number] Start: 02-13-2018 End: 02-16-2018 Ambulatory FRANCOISE BARNES [facility] Start: 12-19-2017 Patient encounter procedure [...] Visit [facility] [address] [place] [id number] Coy Ramírez MD [address] [place] [address] [facility] Start: 08-08-2024 End: 08-08-2024 Patient encounter procedure 08/08/2024 11:30 AM EST Office Visit [facility] [address] [place] [address] Francoise Barnes PA [address] [place] [address] [facility] Start: 06-03-2024 End: 06-03-2024 Patient encounter procedure 06/03/2024 1:10 PM EDT Office Visit [facility] [address] [place] [address] Coy Ramírez MD [address] [place] [address] [facility] Start: 04-21-2024 Influenza vaccination Influenza Vacc ine (#1) [facility] Start: 02-18-2024 Influenza vaccination Influenza Vacc ine (#1) [facility] Comment on above: Postponed from 04/21 (Patient Refused) Start: 02-11-2024 Screening for malignant neoplasm of breast Mammogram [facility] Start: 10-25-2023 End: 10-25-2023 Patient encounter procedure 10/25/2023 1:00 PM EST Office Visit [facility] [address] [facility] [address] [place] [address] Francoise Barnes PA [address] [place] [address] [facility] Start: 12-14-2007 Screening for malignant neoplasm of cervix [facility] Start: 1998 Screening for malignant neoplasm of cervix Pap Smear [facility] Start: 1977 Screening for malignant neoplasm of colon [facility] Immunizations Immunization Date Immunization Notes Care Provider Fa [facility] 05-30-2021 influenza, injectabl e, quadrivalent, preservative free Francoise MARTINEZ Work Phone: [facility] 05-30-2021 influenza virus vacc ine, unspecified formulation Francoise MARTINEZ Work Phone: [facility] 06-12-2020 influenza, injectabl e, quadrivalent, preservative free Francoise MARTINEZ Work Phone: [facility] 12-16-2018 tetanus toxoid, redu brina diphtheria toxoid, and acellular pertussis vaccine, adsorbed Francoise MARTINEZ Work Phone: [facility] Payers Date Payer Category Payer Self-pay [id number] 2022 Medicaid [id number] 2022 Medicaid [id number] 2022 Unknown 2018 Unknown [id number] 2018 Unknown [id number] 1977 Unknown [id number] 2.16. 840.1.370536.3.579.2.356 1977 Unknown [id number] 2.16. 840.1.459146.3.579.2.356 1977 Unknown [id number] 2.16. 840.1.064885.3.579.2.356 1977 Unknown [id number] 2.16.8 40.1.430590.3.579.2.727 1977 Unknown [id number] 2.16.8 40.1.485638.3.579.2.727 1977 Unknown [id number] 2.16.84 0.1.274178.3.579.2.593 1977 Unknown [id number] 2.16.84 0.1.913441.3.579.2.593 1977 Unknown [id number] 2.16.84 0.1.808797.3.579.2.593 1977 Unknown [id number] 2.16.8 40.1.651235.3.579.2.1285 1977 Unknown [id number] 2.16.8 40.1.021235.3.579.2.1285 1977 Unknown [id number] 2.16.8 40.1.310722.3.579.2.1285 1977 Unknown [id number] 2.16.8 40.1.869705.3.579.2.1285 1977 Unknown [id number] 2.16.8 40.1.706317.3.579.2.1285 1977 Unknown [id number] 2.16.8 40.1.444078.3.579.2.1285 1977 Unknown [id number] 2.16.8 40.1.764821.3.579.2.1285 1977 Unknown [id number] 2.16.84 0.1.289562.3.579.2.1258 1977 Unknown [id number] 2.16.84 0.1.140125.3.579.2.1258 1977 Unknown [id number] 2.16.84 0.1.016724.3.579.2.1258 1977 Unknown [id number] 2.16.84 0.1.981045.3.579.2.1258 1977 Unknown [id number] 2.16.84 0.1.476655.3.579.2.1258 1977 Unknown [id number] 2.16.84 0.1.789492.3.579.2.1258 1977 Unknown [id number] 2.16.84 0.1.043614.3.579.2.1258 1977 Unknown [id number] 2.16.84 0.1.411819.3.579.2.1258 1977 Unknown [id number] 2.16.840 .1.964396.3.579.2.1258 1977 Unknown [id number] 2.16.840 .1.419786.3.579.2.1259 1977 Unknown [id number] 2.16. 840.1.644174.3.579.2. 1977 Unknown [id number] 2.16. 840.1.895434.3.579.2.196 1977 Unknown [id number] 2.16. 840.1.912242.3.579.2. 1977 Unknown [id number] 2.16. 840.1.340879.3.579.2. 1977 Unknown [id number] 2.16. 840.1.165219.3.579.2. 1977 Unknown [id number] 2.16. 840.1.252237.3.579.2. 1977 Unknown [id number] 2.16. 840.1.934982.3.579.2.196 1959 Unknown [id number] Unknown [id number] 2.16.8 40.1.554971.3.579.2.531 Unknown [id number] 2.16.8 40.1.294360.3.579.2.531 Social History Date Type Detail Facility Tobacco smoking stat us [facility] Unknown if ever smoked [facility] Work Phone: Start: 1975 Sex Assigned At Female F [facility] Start: 09-18-2018 End: 01-23-2023 Tobacco smoking status UTIS Never smoked tobacco (finding) [facility] Start: 01-23-2023 Tobacco use and exposure Smokeless tobacco non-user [facility] Start: 07-26-2023 End: 06-24-2024 Alcohol intake Ex-drinker (finding) [facility] Start: 01-24-2023 End: 07-26-2023 History of Social function [facility] Start: 01-24-2023 End: 07-26-2023 Tobacco use panel [facility] Start: 04-26-2023 Alcohol Comment Caffeine intake: sod a [facility] Start: 1975 Sex Assigned At Not on file N [facility] Clinical Notes 06-28-2021 to 06-26-2024 Placido Rodríguez NP - 06/26/2024 1:30 PM ESTPatient Mag Ramírez MD - 06/03/2024 1:10 PM EDTTelephone Encounter - MICHELLE Cao - 05/21/2024 8:30 AM EDT Note Date & Type Note Facility 06-26-2024 History of Presen t illness Narrative Subjective Patient ID: Marilee Arriaga is a 48 y.o. female who presents for Epistaxis (Nose Bleed) and oral thrush. Ms. Arriaga has been having bloody noses, she reports three in two days. She states it was only the left nostril, no clots. She also reports bumps on her tongue that started a week ago after the ER treated her with Flagyl for UTI. She has DM and reports occasional low BS. Also, side note: she recently reports a fall at home after recent nerve block. She reports landing on her left knee. Mild aching to knee present per patient report. Epistaxis (Nose Bleed) The bleeding has been from the left nare. This is a new problem. The current episode started in the past 7 days. The problem has been gradually improving. The bleeding is associated with dry air. She has tried nothing for the symptoms. Current Outpatient Medications on File Prior to Visit Medication Sig Dispense Refill acarbose (Precose) 25 MG tablet Take 1 tablet (25 mg) by mouth in the morning and 1 tablet (25 mg) in the evening and 1 tablet (25 mg) before bedtime. 90 tablet 2 albuterol HFA 90 mcg/act inhaler INHALE 1 PUFF BY MOUTH EVERY 4 HOURS NEEDED 90 g 11 ARIPiprazole ER (Abilify Maintena) 400 MG injection syringe Inject 400 mg into the shoulder, thigh, or buttocks. Once a month busPIRone (Buspar) 30 MG tablet Take 30 mg by mouth every 12 (twelve) hours. Caplyta 42 MG capsule Take 1 capsule by mouth in the morning. cholecalciferol (Vitamin D-3) 250 MCG (07945 UT) capsule TAKE 1 CAPSULE BY MOUTH ONCE A DAY AT THE SAME TIME. 100 capsule 3 Continuous Blood Gluc Ripening Room Operator (FreeStyle Samreen 2 [place]) device USE DIRECTED Continuous Blood Gluc Sensor (FreeStyle Samreen 2 Sensor) misc Use as directed diclofenac sodium 1 % gel APPLY 2 GM TO AFFECTED AREA IN THE MORNING,IN THE EVENING,AND BEFORE BEDTIME 100 g 3 escitalopram (Lexapro) 5 MG tablet Take 10 mg by mouth Daily hydrOXYzine pamoate (Vistaril) 25 MG capsule TAKE 1 CAPSULE BY MOUTH TWICE A DAY NEEDED FOR ANXIETY lamoTRIgine (LaMICtal) 150 MG tablet Take 3 tablets by mouth 1 (one) time each day at the same time. metoprolol succinate XL (Toprol-XL) 25 MG 24 hr tablet TAKE 1 TABLET BY MOUTH DAILY, DO NOT CRUSH OR CHEW 100 tablet 3 Nurtec 75 MG tablet dispersible TAKE 1 TABLET BY MOUTH EVERY DAY NEEDED FOR MIGRAINES 8 tablet 5 nystatin (Mycostatin) 123177 UNIT/GM powder Apply 1 application topically Daily PRN 60 g 2 ondansetron ODT (Zofran-ODT) 4 MG disintegrating tablet Take 1 tablet (4 mg) by mouth every 8 (eight) hours if needed for nausea or vomiting 60 tablet 0 tiZANidine (Zanaflex) 4 MG tablet TAKE 1 TABLET (4 MG) BY MOUTH EVERY 8 HOURS IF NEEDED FOR MUSCLE SPASMS 100 tablet 2 traMADol (Ultram) 50 MG tablet Take 1 tablet (50 mg) by mouth 2 (two) times a day as needed for severe pain 60 tablet 0 traZODone (Desyrel) 100 MG tablet Take 3 tablets (300 mg) by mouth at bedtime venlafaxine XR (Effexor XR) 150 MG 24 hr capsule Take 2 capsules by mouth 1 (one) time each day at the same time. Take with food zolpidem (Ambien) 5 MG tablet Take 1 tablet (5 mg) by mouth as needed at bedtime for sleep No current facility-administered medications on file prior to visit. I have reviewed and reconciled the history and medication list with the patient today. Allergies Allergen Reactions Bacitracin-Polymyxin B Codeine Erythromycin Hives Penicillin G Penicillins Soap Swelling lip swelling to some deodorants Sulfa Antibiotics Hives Other Reaction(s): Unknown Ciprofloxacin Rash Clindamycin Rash Erythromycin Base Rash Maxalt [Rizatriptan] Anxiety Panic Attacks Social History Tobacco Use Smoking status: Never Smokeless tobacco: Never Vaping Use Vaping status: Never Used Substance Use Topics Alcohol use: Not Currently Comment: Caffeine intake: soda Drug use: Never Family History Problem Relation Name Age of Onset COPD Mother Depression Mother Hypertension Mother Heart disease Mother Stroke Mother Mental illness Mother Dementia Father Diabetes Father Hypertension Father Heart disease Father Stroke Father Mental illness Father Alcohol abuse Brother Drug abuse Brother Depression Brother Heart disease Maternal Grandmother Heart disease Maternal Grandfather Cancer Mother's Brother Heart disease Mother's Brother Cancer Mother's Sister Diabetes Father's Brother Heart disease Father's Brother Heart disease Father's Sister Past Medical History: Diagnosis Date Arthritis Auditory [...] 08/2004 OTHER SURGICAL HISTORY 08/1977 pyloric stenosis IN ARTHROSCOPY KNEE DIAGNOSTIC W/WO SYNOVIAL BX SPX 04/1998 RADIOFREQUENCY ABLATION Bilateral 06/05/2023 L3-L5 RADIOFREQUENCY ABLATION Bilateral 02/12/2024 L3-L5 SACROILIAC JOINT INJECTION Bilateral 05/27/2024 SACROILIAC JOINT INJECTION Left 06/24/2024 TONSILLECTOMY 08/1995 Visit Vitals Smoking Status Never Review of Systems Constitutional: Negative. HENT: Positive for nosebleeds. Musculoskeletal: Negative. Left knee pain s/p fall Objective Physical Exam Vitals and nursing note reviewed. Constitutional: Appearance: Normal appearance. She is obese. HENT: Head: Normocephalic and atraumatic. Right Ear: External ear normal. Left Ear: External ear normal. Nose: Nose normal. Mouth/Throat: Mouth: Mucous membranes are moist. Comments: Geographic tongue pattern present with white plaques noted. Eyes: Extraocular Movements: Extraocular movements intact. Pupils: Pupils are equal, round, and reactive to light. Cardiovascular: Rate and Rhythm: Normal rate and regular rhythm. Pulmonary: Effort: Pulmonary effort is normal. Musculoskeletal: General: Signs of injury present. Comments: Left knee scraped during recent fall Skin: General: Skin is warm and dry. Neurological: General: No focal deficit present. Mental Status: She is alert. Psychiatric: Mood and Affect: Mood normal. Behavior: Behavior normal. Assessment/Plan Oral Thrush--Primary Diagnosis Started 1 week ago, after treatment for recent UTI with flagyl. Geographical pattern of white plaques visualized on tongue. Start Nystatin swish and spit, 4 mL four times daily for 14 days. Left Sided epistaxis Has been going on the past week or so. Worse with dry air. Provided patient with saline nasal spray in office. Instructed patient to use multiple times per day and add humidification to air at home. She is not any on blood thinner. Fall at home Discussed fall safety with patient. No acute injuries Okay to use OTC tylenol as instructed prn for pain post fall. Instructed patient to come back if symptoms not improved. Follow up if symptoms worsen or fail to improve. BORIS Horton NP documented in this encounter [facility] 06-26-2024 Instructions Placido Rodríguez NP - 06/26/2024 1:30 PM EST Nystatin swish and spit as directed Saline nasal spray documented in this encounter [facility] 06-03-2024 History of Presen t illness Narrative [...] capsule, Daily cholecalciferol (Vitamin D-3) 250 MCG (27227 UT) capsule TAKE 1 CAPSULE BY MOUTH ONCE A DAY AT THE SAME TIME. Continuous Blood Gluc Ripening Room Operator (FreeStyle Samreen 2 [place]) device USE DIRECTED Continuous Blood Gluc Sensor [...] EVERY DAY NEEDED FOR MIGRAINES nystatin (Mycostatin) 577567 UNIT/GM powder 1 application , Topical, Daily, [...] 08/2004 OTHER SURGICAL HISTORY 08/1977 pyloric stenosis IN ARTHROSCOPY KNEE DIAGNOSTIC W/WO SYNOVIAL BX SPX [...] (BMI) of 50.0 to 59.9 in adult ([facility]) Follow up in about 6 months (around 12/02/2024). documented in this encounter [facility] 05-21-2024 Telephone encounter Note Called and spoke with Enma, who connected me with pharmacistNena. She states there are no claims billed for Imitrex during the time period in 2022 originally given for pt. Needs dates the Imitrex was filled and the pharmacy where it was filled so it can be verified that she took the medication. Filled 12/11/2017, 04/07/2018, 04/07/2020 at [facility] in [place]. Called back and spoke with Sj, who connected me with pharmacistNena. They will look into this and verify the claims and fax new determination to the office. [facility] 05-21-2024 Miscellaneous Notes Called and spoke with Enma, who connected me with pharmacistNena. She states there are no claims billed for Imitrex during the time period in 2022 originally given for pt. Needs dates the Imitrex was filled and the pharmacy where it was filled so it can be verified that she took the medication. Filled 12/11/2017, 04/07/2018, 04/07/2020 at [facility] in [place]. Called back and spoke with Sj, who connected me with pharmacistNena. They will look into this and verify the claims and fax new determination to the office. documented in this encounter [facility] 09-25-2023 Telephone encounter Note OARRS reviewed, Rx sent into patient's pharmacy. [facility] 09-25-2023 Miscellaneous Notes OARRS reviewed, Rx sent into patient's pharmacy. documented in this encounter [facility] 06-27-2022 Note PROCEDURE: XR FOOT L T [...] by: EM LÓPEZ Date: 2022-06-27 15:38 [facility] 06-28-2021 Note HNO ID: [id number] Author: Em Fernandez, PhD Service: ? Author Type: Psychologist Type: Progress Notes Filed: 06/28/2021 2:45 PM Note Text: Received mental health records from [facility]. Note from 05/06/21 revealed pt [...] for scanning. Em Fernandez, psychologist [facility] Evaluation note No assessment inform ation available [facility] Work Phone: Evaluation note Diagnosis Chronic pain of both knees [facility] Diagnosis Hypoglycemia- Primary Hypoglycemia, unspecified S/P gastric bypass Bariatric surgery status IFG (impaired fasting glucose) Weight gain Other symptoms concerning nutrition, metabolism, and development Encounter for dietary consultation Class 3 severe obesity due to excess calories with serious comorbidity and body mass index (BMI) of 50.0 to 59.9 in adult ([facility]) documented [facility] Diagnosis Thrush, oral- Primary Left-sided epistaxis Fall in home, initial encounter documented in this encounter [facility] Summary [...] section and content) DATE CREATED AUTHOR 02/14/2018 [facility] DATE CREATED AUTHOR AUTHOR'S ORGANIZ ATION 02/16/2018 [facility] DATE CREATED AUTHOR AUTHOR'S ORGANIZ ATION 10/09/2018 [facility] DATE CREATED AUTHOR AUTHOR'S ORGANIZ ATION 10/11/2021 [facility] DATE CREATED AUTHOR AUTHOR'S ORGANIZ ATION 10/28/2022 [facility] DATE CREATED AUTHOR AUTHOR'S ORGANIZ ATION 11/13/2022 [facility] DATE CREATED AUTHOR AUTHOR'S ORGANIZ ATION 01/09/2024 [facility] DATE CREATED AUTHOR AUTHOR'S ORGANIZ ATION 06/26/2024 [facility] DATE CREATED AUTHOR AUTHOR'S ORGANIZ ATION 06/28/2024 [facility] EP[facility] DATE CREATED AUTHOR AUTHOR'S ORGANIZ ATION 06/29/2024 [facility] Goals (unrecognized section and content) Goals [...] September 19, 2023 End: September 19, 2023 [facility] Care Phlebotomist Relationship Specialty Start Date End Date Shalini Coffey MD [address] [address] PCP - General Family Medicine 08/05/23 Long Term Care Phlebotomist Relationship Specialty Start Date End Date Shalini Coffey MD 112 [facility] [address] [place] [address] PCP - General Family Medicine 08/05/23 Long Term Care Phlebotomist Relationship Specialty Start Date End Date Shalini Coffey MD [address] [facility] [address] [place] [address] PCP - General Family Medicine 08/05/23 Long Term Care Phlebotomist Relationship Specialty Start Date End Date Shalini Coffey MD [address] [facility] [address] [place] [address] PCP - General Family Medicine 08/05/23 Long Term Care Phlebotomist Relationship Specialty Start Date End Date Shalini Coffey MD 112 [facility] [address] [place] [address] PCP - General Family Medicine 08/05/23 Reason for Visit (unrecogniz ed section and content) Reason Comments Med Refill Reason Comments Diabetes Follow-up Reason Comments Epistaxis (Nose Bleed) FOR RECORDS PERTAINING TO PATIENTS WHO ARE [...] BE BASED ON THE PRIMARY CLINICAL RECORDS. Real Time Content [facility]. provides no warranty or guarantee of the accuracy or completeness of information in this document.
--- NOTE | 2024-07-03 11:07 | PM.CN ---
Consult Note: HPI Data of Consult Patient: known to practice within the last 3 years Consult date: 06/10/24 Requesting Physician: Simona Szymanski NP Primary Care Provider: SHWETA BARNES Consult Narrative Reason for consult: low back pain Narrative: 48yof who presents for assessment. has continued in a series of provider directed home exercises >6 weeks, without lasting benefit. utilizes robaxin 750mg daily PRN with benefit without side effects. continues with other pain meds as needed. recent left sciatic nerve block providing 65-70% improvement. pt continues to have moderate to severe low back pain. DENEEN remains around 56%. cc:: CC: Simona Szymanski NP Review of Systems ROS Status of ROS 10 or more systems reviewed and unremarkable except as noted in history and below Musculoskeletal Reports: back pain and extremity pain PFSH PFSH Medical History Surgical History S/P endometrial ablation ?Z98.890 - Other specified postprocedural states (ICD-10) S/P right knee arthroscopy ?Z98.890 - Other specified postprocedural states (ICD-10) H/O gastric bypass ?Z98.84 - Bariatric surgery status (ICD-10) S/P tonsillectomy ?Z90.89 - Acquired absence of other organs (ICD-10) Social History Smoking status: Never smoker Little interest or pleasure in doing things: not at all Feeling down, depressed, or hopeless: not at all Meds Home Medications and Allergies Home Medications ?Medication ?Instructions ?Recorded ?Confirmed ?Type acetaminophen 650 mg 650 mg PO Q12H PRN pain 02/13/23 06/24/24 History tablet,extended release (Tylenol Arthritis Pain) aripiprazole 400 mg suspension, 400 mg IM Q28D 02/13/23 06/24/24 History extended rel.intramuscular syringe (Simaliaislinn Maintena) buspirone 30 mg tablet 30 mg PO TID 02/13/23 06/24/24 History lumateperone 10.5 mg capsule 42 mg PO DAILY 02/13/23 06/24/24 History (Caplyta) tramadol 50 mg tablet 50 mg PO BID PRN pain 02/13/23 06/24/24 History trazodone 300 mg tablet 300 mg PO DAILY PRN sleep 02/13/23 06/24/24 History venlafaxine 100 mg tablet 300 mg PO DAILY 02/13/23 06/24/24 History zolpidem 5 mg tablet (Ambien) 5 mg PO BEDTIME PRN sleep 02/13/23 06/24/24 History tizanidine 4 mg tablet 4 mg PO BEDTIME 04/18/23 06/24/24 History acarbose 25 mg tablet 25 mg PO DAILY 08/01/23 06/24/24 History cholecalciferol (vitamin D3) 250 10,000 unit PO DAILY 08/01/23 06/24/24 History mcg (10,000 unit) capsule hydroxyzine pamoate 25 mg capsule 50 mg PO BID 08/01/23 06/24/24 History lamotrigine 150 mg tablet 300 mg PO DAILY 12/03/23 06/24/24 History metoprolol succinate 25 mg 25 mg PO DAILY 04/04/24 06/24/24 History tablet,extended release 24 hr escitalopram oxalate 10 mg tablet 10 mg PO DAILY 05/27/24 06/24/24 History (Lexapro) methocarbamol 750 mg tablet 750 mg PO DAILY 06/10/24 06/24/24 History Allergies Allergy/AdvReac Type Severity Reaction Status Date / Time erythromycin base (From Allergy Unknown Unknown Verified 06/24/24 07:12 E-Mycin) Penicillins Allergy Unknown Unknown Verified 06/24/24 07:12 shellfish derived Allergy Unknown Unknown Verified 06/24/24 07:12 Sulfa (Sulfonamide Allergy Unknown Unknown Verified 06/24/24 07:12 Antibiotics) codeine Allergy Unknown Verified 06/24/24 07:12 Exam Constitutional Documenting provider has reviewed patient's vital signs: yes Common normals: no apparent distress, oriented x3, healthy appearing, alert and well nourished General appearance: cooperative HENMT Common normals: normocephalic, hearing grossly normal bilaterally and moist oral mucous membranes Head and scalp: normocephalic Eye Common normals: PERRL Pupil: PERRL Neck & C-Spine Common normals: full ROM General: normal visual inspection Chest Common normals: inspection of chest normal Respiratory Common normals: normal respiratory effort, no retractions and no use of accessory muscles Back & Pelvis Thoracic spine/upper back: pain with ROM; no thoracic spinal tenderness and no paraspinal muscle tenderness Lumbar spine/lower back: pain with ROM and straight leg raise negative bilaterally; no lumbar spinal tenderness and no paraspinal muscle tenderness Sacroiliac joints: SI joints normal Other: decreased sensation left L4,5,S1 pattern strength 5/5 in BLE Neuro Common normals: oriented x3, CN's II-XII intact bilaterally, moves all extremities, no focal motor deficits, no sensory deficits noted and deep tendon reflexes 2+ bilaterally Sensorium/orientation: alert Motor exam: strength 5/5 throughout and no movement abnormalities noted Psych Common normals: mental status grossly normal, thought process normal, cooperative, affect normal, speech normal and activity/motor behavior normal Speech: normal speech Thought process: normal thought process Results Additional Findings Additional findings: If on a controlled substance or opioids, I have checked an [place] report on this patient and there are no aberrancies noted in the prescribing history.??If on a controlled substance or opioid a drug screen was completed and reviewed within the last year, and if there has not been a drug screen completed we ordered one today to monitor higher risk, state monitored pain medication use. As part of providing excellent, safe, comprehensive care, the following was completed at our patient's visit: 1. A medication reconciliation and review to ensure accurate knowledge of current/active medications, including asking our patients to inform us about any [id number] medications or herbal remedies/nutritional supplements/alternative remedies. 2. A review to specifically ensure our patients have had annual screening for screening for depression, screening for tobacco use, and screening for unhealthy alcohol use. For concerning screenings had a discussion with the patient, provided patient education, and recommended follow-up with primary care provider when appropriate. If patient noted with a risk of falling, they received education on strength, gait, and balance training to prevent future risk of falling. Assessment and Plan Assessment and Plan (1) Lumbar stenosis with neurogenic claudication: (2) Lumbar radiculopathy: (3) Sacroiliitis: (4) Lumbar degenerative disc disease: (5) Left-sided low back pain with sciatica: Qualifiers: Chronicity: chronic Sciatica laterality: sciatica of left side Qualified Code(s): M54.42 - Lumbago with sciatica, left side; G89.29 - Other chronic pain (6) Muscle spasm: Plan pt and I discussed her pain continues to remain 6+/10 and DENEEN 50+ each visit, pt feels the medications and procedures are improving her pain and functional ability and she is finding benefit to our treatment plans. Pt declining consult at [facility] or [facility] pain management programs for further assessment/evaluation at this time continue HEP as tolerated, continue current medications update EMG of BLE to assess lumbar radiculopathy vs neuropathy f/u 3 months, sooner to review EMG depending on results
== END 2024-07-03 10:42 | disposition home or self-care (01) ==
LOC: PM 10:42
PROVIDERS: PCP Physician Assistant; Visit Provider Nurse Practitioner
DX: M48.062 Spinal stenosis, lumbar region with neurogenic claudication (principal); M51.16 Intervertebral disc disorders with radiculopathy, lumbar region; M46.1 Sacroiliitis, not elsewhere classified; M54.42 Lumbago with sciatica, left side; G89.29 Other chronic pain; M62.838 Other muscle spasm
CPT/HCPCS: G0463

== ENCOUNTER 2024-08-17 19:19 | Emergency (ER) | payer MEDICAID, SELFPAY ==
[2024-08-17 19:25] VITALS: BP 131/76; PULSE 77; TEMP 36.6; O2SAT 97; BMI 58.7
--- NOTE | 2024-08-17 20:00 | XR_ITS ---
The [place] [id number] Patient Name: NAYA ARRIAGA MRN: [id number] date: 1975 Sex: F Assigned Patient Location: ER Current Patient Location: ER Accession/Order Number: [id number] Exam Date: 08/17/2024 20:08 Report Date: 08/17/2024 20:36 At the request of: XANDER LERMA Procedure: XR hip LT min 2V PROCEDURE: XR hip LT min 2V HISTORY: fall COMPARISON: CT abdomen pelvis 12/08/2023 FINDINGS: BONES:[Ossification along superior rim of acetabulum, also seen on prior CT study. No acute fracture or dislocation. No significant joint space narrowing. SOFT TISSUES:No visible soft tissue swelling. EFFUSION:None visible. OTHER: Negative. XR/XR hip LT min 2V IMPRESSION: 1. No acute bone abnormality or significant degenerative joint disease. 2. Sequela of remote injury. Electronically authenticated by: DENNIS HERNANDEZ Date: 08/17/2024 20:36
--- NOTE | 2024-08-17 20:00 | XR_ITS ---
The [address] [address] Patient Name: NAYA ARRIAGA MRN: [id number] date: 1975 Sex: F Assigned Patient Location: ER Current Patient Location: ED.MAIN Accession/Order Number: [id number] Exam Date: 08/17/2024 20:08 Report Date: 08/17/2024 20:34 At the request of: XANDER LERMA Procedure: XR ankle LT min 3V PROCEDURE: XR ankle LT min 3V, XR foot LT min 3V HISTORY: fall COMPARISON: None. FINDINGS: BONES:Mild degenerative changes the midfoot. Small calcaneal plantar spur. SOFT TISSUES:No visible soft tissue swelling. EFFUSION:None visible. OTHER: Negative. XR/XR ankle LT min 3V IMPRESSION: 1. No acute bone abnormality. 2. Mild degenerative changes. Electronically authenticated by: DENNIS HERNANDEZ Date: 08/17/2024 20:34
--- NOTE | 2024-08-17 20:00 | XR_ITS ---
The [address] [address] Patient Name: NAYA ARRIAGA MRN: [id number] date: 1975 Sex: F Assigned Patient Location: ER Current Patient Location: ED.MAIN Accession/Order Number: [id number] Exam Date: 08/17/2024 20:08 Report Date: 08/17/2024 20:34 At the request of: XANDER LERMA Procedure: XR foot LT min 3V PROCEDURE: XR ankle LT min 3V, XR foot LT min 3V HISTORY: fall COMPARISON: None. FINDINGS: BONES:Mild degenerative changes the midfoot. Small calcaneal plantar spur. SOFT TISSUES:No visible soft tissue swelling. EFFUSION:None visible. OTHER: Negative. XR/XR foot LT min 3V IMPRESSION: 1. No acute bone abnormality. 2. Mild degenerative changes. Electronically authenticated by: DENNIS HERNANDEZ Date: 08/17/2024 20:34
--- NOTE | 2024-08-17 20:01 | ED.LOWEXI1 ---
HPI HPI - Extremity Injury (Lower) General Chief Complaint: Extremity Injury, Lower Stated Complaint: fell, knee and ankle pain Time Seen by Provider: 08/17/24 19:57 Source: patient Mode of arrival: Wheelchair History of Present Illness HPI Narrative: 48-year-old female presents for left foot, left ankle, and left hip pain. She states she was standing there about 4 hours ago and her ankle gave out which it does from time to time and she fell and she believes she landed on her left hip. But she is not sure. She did not hit her head. She has ongoing issues with that foot and ankle and has been tested for neuropathy and she is in pain management. Related Data Home Medications ?Medication ?Instructions ?Recorded ?Confirmed acetaminophen 650 mg 650 mg PO Q12H PRN pain 02/13/23 06/24/24 tablet,extended release (Tylenol Arthritis Pain) aripiprazole 400 mg suspension, 400 mg IM Q28D 02/13/23 06/24/24 extended rel.intramuscular syringe ([address]) buspirone 30 mg tablet 30 mg PO TID 02/13/23 06/24/24 lumateperone 10.5 mg capsule 42 mg PO DAILY 02/13/23 06/24/24 (Caplyta) tramadol 50 mg tablet 50 mg PO BID PRN pain 02/13/23 06/24/24 trazodone 300 mg tablet 300 mg PO DAILY PRN sleep 02/13/23 06/24/24 venlafaxine 100 mg tablet 300 mg PO DAILY 02/13/23 06/24/24 zolpidem 5 mg tablet (Ambien) 5 mg PO BEDTIME PRN sleep 02/13/23 06/24/24 tizanidine 4 mg tablet 4 mg PO BEDTIME 04/18/23 06/24/24 acarbose 25 mg tablet 25 mg PO DAILY 08/01/23 06/24/24 cholecalciferol (vitamin D3) 250 10,000 unit PO DAILY 08/01/23 06/24/24 mcg (10,000 unit) capsule hydroxyzine pamoate 25 mg capsule 50 mg PO BID 08/01/23 06/24/24 lamotrigine 150 mg tablet 300 mg PO DAILY 12/03/23 06/24/24 metoprolol succinate 25 mg 25 mg PO DAILY 04/04/24 06/24/24 tablet,extended release 24 hr escitalopram oxalate 10 mg tablet 10 mg PO DAILY 05/27/24 06/24/24 (Lexapro) methocarbamol 750 mg tablet 750 mg PO DAILY 06/10/24 06/24/24 Allergies Allergy/AdvReac Type Severity Reaction Status Date / Time erythromycin base (From Allergy Unknown Unknown Verified 06/24/24 07:12 E-Mycin) Penicillins Allergy Unknown Unknown Verified 06/24/24 07:12 shellfish derived Allergy Unknown Unknown Verified 06/24/24 07:12 Sulfa (Sulfonamide Allergy Unknown Unknown Verified 06/24/24 07:12 Antibiotics) codeine Allergy Unknown Verified 06/24/24 07:12 Opioid HPI Opioid Management Most Recent Pain and Opioid Data: Last Pain Scale 6 08/17/24 19:49 08/17/24 Last ED Pain Assessment 08/17/24 19:49 Review of Systems ROS Narrative A ten point review of systems is negative except as noted above. [facility] Medical History Surgical History S/P endometrial ablation ?Z98.890 - Other specified postprocedural states (ICD-10) S/P right knee arthroscopy ?Z98.890 - Other specified postprocedural states (ICD-10) H/O gastric bypass ?Z98.84 - Bariatric surgery status (ICD-10) S/P tonsillectomy ?Z90.89 - Acquired absence of other organs (ICD-10) Social History Smoking status: Never smoker Little interest or pleasure in doing things: not at all Feeling down, depressed, or hopeless: not at all Exam Narrative Exam Narrative: Nurses note and vital signs reviewed and patient is not hypoxic. General: The patient appears in no apparent distress. Patient is resting comfortably on cart. Skin: Warm, dry, no pallor noted. There is no rash noted. Head: Normocephalic, atraumatic Eye: Normal conjunctiva, no drainage Ears, Nose, Mouth, and Throat: oral mucosa is moist. Nares patent. Cardiovascular: Regular Rate and Rhythm Respiratory: Patient is in no distress, no accessory muscle use, lungs are clear to auscultation, no wheezing, rales or rhonchi Back: non-tender GI: Obese and nontender Musculoskeletal: There is no deformity in her left hip left knee left ankle or left foot. There is no bruise rash or abrasion. Neurological: A&O, normal speech Psychiatric: Cooperative Constitutional Vital Signs, click to edit/add: Last Vital Signs Temp 97.8 F 08/17/24 19:25 Pulse 77 08/17/24 19:25 Resp 16 08/17/24 19:25 BP 131/76 08/17/24 19:25 Pulse Ox 97 08/17/24 19:25 O2 Del Method Room Air 08/17/24 19:25 Course Vital Signs Vital signs: Vital Signs Temperature 97.8 F 08/17/24 19:25 Pulse Rate 77 08/17/24 19:25 Respiratory Rate 16 08/17/24 19:25 Blood Pressure 131/76 08/17/24 19:25 Pulse Oximetry 97 08/17/24 19:25 Oxygen Delivery Method Room Air 08/17/24 19:25 Temperature 97.8 F 08/17/24 19:25 Pulse Rate 77 08/17/24 19:25 Respiratory Rate 16 08/17/24 19:25 Blood Pressure 131/76 08/17/24 19:25 Pulse Oximetry 97 08/17/24 19:25 Oxygen Delivery Method Room Air 08/17/24 19:25 MDM - Extremity Injury (Lower) MDM Narrative Medical decision making narrative: X-rays of hip, ankle, and foot are all negative. She is in pain management and will take the Robaxin that she is prescribed at home and will follow-up with her pain management physician if needed. Treatment diagnosis and follow-up were discussed with the patient. Differential Diagnosis Differential diagnosis: Likely other (Contusion, fracture) Imaging Data Left hip, left ankle, left foot x-rays: Radiologist's impression: ITS Impressions Ankle X-Ray 08/17/24 20:00 IMPRESSION: 1. No acute bone abnormality. 2. Mild degenerative changes. Electronically authenticated by: DENNIS HERNANDEZ Date: 08/17/2024 20:34 Foot X-Ray 08/17/24 20:00 IMPRESSION: 1. No acute bone abnormality. 2. Mild degenerative changes. Electronically authenticated by: DENNIS HERNANDEZ Date: 08/17/2024 20:34 Hip X-Ray 08/17/24 20:00 IMPRESSION: 1. No acute bone abnormality or significant degenerative joint disease. 2. Sequela of remote injury. Electronically authenticated by: DENNIS HERNANDEZ Date: 08/17/2024 20:36 Discharge Plan Discharge Chief Complaint: Extremity Injury, Lower Clinical Impression: Contusion of hip Patient Disposition: Home, Self-Care Time of Disposition Decision: 20:47 Condition: Good Mode of Transportation: Private Vehicle Prescriptions / Home Meds: No Action acarbose 25 mg tablet 25 mg PO DAILY hydroxyzine pamoate 25 mg capsule 50 mg PO BID cholecalciferol (vitamin D3) 250 mcg (10,000 unit) capsule 10,000 unit PO DAILY lamotrigine 150 mg tablet 300 mg PO DAILY metoprolol succinate 25 mg tablet extended release 24 hr 25 mg PO DAILY methocarbamol 750 mg tablet 750 mg PO DAILY escitalopram oxalate [Lexapro] 10 mg tablet 10 mg PO DAILY Patient Comments: 15mg Caplyta 10.5 mg capsule 42 mg PO DAILY buspirone 30 mg tablet 30 mg PO TID trazodone 300 mg tablet 300 mg PO DAILY PRN (Reason: sleep) venlafaxine 100 mg tablet 300 mg PO DAILY tramadol 50 mg tablet 50 mg PO BID PRN (Reason: pain) zolpidem [Ambien] 5 mg tablet 5 mg PO BEDTIME PRN (Reason: sleep) acetaminophen [Tylenol Arthritis Pain] 650 mg tablet extended release 650 mg PO Q12H PRN (Reason: pain) Abilify Maintena 400 mg suspension,extended rel syring 400 mg IM Q28D tizanidine 4 mg tablet 4 mg PO BEDTIME Print Language: [place] Instructions: Contusion in Adults (ED), Hip Contusion (ED) Referrals: SHWETA BARNES [Primary Care Provider] - 1 week
--- OUTSIDE RECORDS SUMMARY | 2024-08-17 20:05 | XMS_ITS | CCD ---
Author Organization [facility] Care Team Providers Care Agricultural Equipment Salesperson Name Role Phone FRANCOISE BARNES Unavailable Unavailable [...] Unavailable MISC, DR SLOAN Primary Care Unavailable TROY, DR EM Snyder Consulting Unavailable TRENT ., [...] Provider UnavailMD Jamey Kapoor Attending Provider [phone] MAHIN Szymanski Attending Provider Shalini Coffey MD [...] Unavailable ESPERANZA, DANUTA F Primary Care Unavailable Debra SIERRA, Najma Jay Attending Unavailable Giedraitis , Andrius Vytautas Attending Unavailable Giedraitis MD, Andrius Vytautas Attending Unavailable Giedraitis MD, Andrius Vytautas Attending Unavailable Giedraitis MD, Andrius Vytautas Attending Unavailable Giedraitis MD, Andrius Vytautas Attending Unavailable Giedraitis , Andrius Vytautas Attending Unavailable Simona Szymanski Admitting Unavailable NON STAFF Primary Care Unavailable Simona Szymanski Attending Unavailable Eddie, Jamey Attending Unavailab le Eddie, Jamey Admitting Unavailab le NON STAFF Primary Care Unavailable HEMFRANCOISE HUMPHREY Attending Unavailable HEMMERFRANCOISE Attending Unavailable OSMELGERMAINE RAHMAN Attending Unavailable HEMMERFRANCOISE Attending Unavailable HEMMERFRANCOISE Attending Unavailable HEMMERFRANCOISE Attending Unavailable DESIREECOY LANDRY F Attending Unavailable DESIREE, AHMAD F Referring Unavailable PLACIDO RODRÍGUEZ Attending Unavailable HEMMERFRANCOISE Attending Unavailable ARIE PLASCENCIA Attending Unavailable MIKYSIMONA OCONNELL Referring Unavailable HEMMERFRANCOISE Attending Unavailable Allergies Allergy Classification Reported Allergen(s) Allergy Type Date of Onset Reaction(s) Facility (1 source) Cephalexin; Translations: [Keflex] Drug Allergy [facility] Repository (20 sources) Clindamycin; Translations: [clindamycin] Drug Allergy [facility] Repository (20 sources) Codeine; Translations: [codeine] Drug Allergy [facility] Repository (1 source) NSAIDs; Translations: [NSAIDs] Propensity to adverse reactions (disorder) [facility] Repository (19 sources) Penicillins; Translations: [penicillins] Propensity to adverse reactions (disorder) [facility] Repository (1 source) Sulfonamides (Antibiotic); Translations: [sulfa drugs] Propensity to adverse reactions (disorder) [facility] Repository (1 source) alot of ATB's, I dont know names; Translations: [alot of ATB's, I dont know names] Propensity to adverse reactions (disorder) [facility] Repository (1 source) Penicillin Drug Allergy [facility] Repository (1 source) Sulfonamides (Antibiotic) Drug allergy (disorder) [facility] Repository (4 sources) Sulfonamides (Antibiotic); Translations: [SULFA (SULFONAMIDE ANTIBIOTICS)] Allergy to substance 5 [facility] (20 sources) erythromycin base; Translations: [ERYTHROMYCIN BASE] Allergy to substance 7 [facility] (20 sources) Bacitracin / Polymyxin B; Translations: [BACITRACIN-POLYM YXIN B] Drug Allergy 3 [facility] Work Phone: (20 sources) Ciprofloxacin; Translations: [CIPROFLOXACIN] Drug Allergy 5 Rash [facility] (20 sources) Erythromycin; Translations: [ERYTHROMYCIN] Drug Allergy 5 [facility] (20 sources) Penicillin G Drug Allergy 3 [facility] (20 sources) Sulfonamides (Antibiotic) Drug Allergy 5 [facility] (20 sources) Soap; Translations: [SOAP] Allergy to substance 7 Swelling [facility] (1 source) Grass pollen; Translations: [GRASS POLLEN] Propensity to adverse reactions to drug (disorder) 5 [facility] Repository (1 source) SHELLFISH CONTAINING PRODUCTS; Translations: [SHELLFISH CONTAINING PRODUCTS] Propensity to adverse reactions to food (disorder) 5 [facility] Repository (19 sources) rizatriptan Drug Allergy 4 Anxiety [facility] Healthcare Work Phone: Medications Current Medications Medication Drug Class(es) Dates Sig (Normalized) Sig (Original) acarbose 25 mg oral tablet (20 sources) alpha-Glucosidase Inhibitor Start: 05-14-2024 take 1 tablet by mouth in the [...] tablet in the evening. Take with meals. 04/25/2023 Active [id number] 200 actuat albuterol 0.09 mg/actuat metered dose inhaler (20 sources) beta2-Adrenergic Agonist Start: 12-26-2023 take 1 [...] ARIPiprazole 400 mg extended release prefilled syringe (20 sources) Atypical Antipsychotic Start: 05-08-2018 inject 400 mg by intramuscular injection every month Aripiprazole (Abiliaislinn Maintena) 400 mg Suspension,Extended Rel Syring Active 400 MG IM every month May 07, 2018 11:00pm busPIRone hydrochloride 30 mg oral tablet (20 sources) Start: 05-16-2017 take 30 mg by mouth twice daily Buspirone Active 30 MG PO Twice daily May 15, 2017 11:00pm take 1 tablet by ayla th every twelve hours busPIRone (Buspar) 30 MG tablet Take 30 mg by mouth every 12 (twelve) hours. Active cholecalciferol 0.25 mg oral capsule (20 sources) Vitamin D Start: 01-24-2024 take 1 capsule by mouth once daily cholecalciferol (Vitamin D-3) 250 MCG (55794 UT) capsule Indications: Vitamin D deficiency TAKE 1 CAPSULE BY MOUTH ONCE A DAY AT THE SAME TIME. 100 capsule 3 01/24/2024 Active Start: 02-06-2023 take 1 capsule by mo uth once daily cholecalciferol (Vitamin D-3) 250 MCG (06756 UT) capsule Indications: Vitamin D deficiency Take 1 capsule (250 mcg) by mouth 1 (one) time each day at the same time. 90 capsule 3 02/06/2023 Active Continuous Blood Gluc Receiv er (PopUp Leasingyle Samreen 2 Brandon) device (20 sources) Start: 02-23-2023 Continuous Blo od Gluc Leadership Development Instructor (FreeStyle Samreen 2 Brandon) device USE DIRECTED 02/23/2023 Active Start: 02-23-2023 Continuous Blo od Gluc Leadership Development Instructor (FreeStyle Samreen 2 Brandon) device USE DIRECTED 0 02/23/2023 Active Continuous Blood Gluc Sensor (FreeStyle Samreen 2 Sensor) misc (20 sources) Start: 04-22-2023 Continuous Blo od Gluc Sensor (FreeStyle Samreen 2 Sensor) misc Use as directed 04/22/2023 Active Start: 04-22-2023 Continuous Blo od Gluc Sensor (FreeStyle Samreen 2 Sensor) misc Use as directed 0 04/22/2023 Active diclofenac sodium 0.01 mg/mg topical gel (20 sources) Nonsteroidal Anti-inflammatory Drug Start: 06-18-2024 diclofenac [...] 04/26/2023 Active escitalopram 10 mg oral tablet (20 sources) Serotonin Reuptake Inhibitor Start: 06-12-2024 take 2 tablets by mouth once daily escitalopram (Lexapro) 10 MG tablet Take 20 mg by mouth Daily 06/12/2024 Active Start: 06-12-2024 take 1 tablet by ayla th once daily escitalopram (Lexapro) 10 MG tablet Take 10 mg by mouth Daily 06/12/2024 Active Start: 04-16-2024 End: 07-17-2024 take 2 tablets by mouth once daily, then take 3 tablets by mouth once daily escitalopram (Lexapro) 5 MG tablet Take 10 mg by mouth Daily Take 15 mg daily 04/16/2024 07/17/2024 Discontinued (Other) Start: 04-16-2024 take 1 tablet by ayla th once daily escitalopram (Lexapro) 5 MG tablet Take 5 mg by mouth Daily 04/16/2024 Active fluconazole 100 mg oral tablet (2 sources) Azole Antifungal Start: 07-17-2024 End: 07-24-2024 take 1 tablet by mouth once daily fluconazole (Diflucan) 100 MG tablet Indications: Thrush, oral Take 1 tablet (100 mg) by mouth Daily for 7 doses 7 tablet 07/17/2024 07/24/2024 Active FLUoxetine 20 mg oral capsule (2 sources) Serotonin Reuptake Inhibitor Start: 05-08-2018 Fluoxetine (Prozac) 20 mg Capsule Active 30 MG PO Daily May 07, 2018 11:00pm 1.5 ml fremanezumab-vfrm 150 mg/ml auto-injector (2 sources) Start: 08-08-2024 fremanezumab (Ajovy) 225 MG/1.5ML auto-injector Indications: Migraine without aura and without status migrainosus, not intractable (CMS/HCC) Inject 1 pen (225 mg) under the skin every 30 (thirty) days 1.5 mL 5 08/08/2024 Active Start: 08-08-2024 fremanezumab ( Ajovy) 225 MG/1.5ML auto-injector Indications: Migraine without aura and without status migrainosus, not intractable (CMS/HCC) Inject 1 pen (225 mg) under the skin every 30 (thirty) days 1.5 mL 5 08/08/2024 Active hydrOXYzine pamoate 50 mg oral capsule (20 sources) Antihistamine Start: 06-18-2024 take 1 capsule [...] Discontinued (Other) lamoTRIgine 150 mg oral tablet (20 sources) Mood Stabilizer, Anti-epileptic Agent take 3 tablets by mouth once daily lamoTRIgine (LaMICtal) 150 MG tablet Take 3 tablets by mouth 1 (one) time each day at the same time. Active lumateperone 42 mg oral capsule (20 sources) Start: 04-04-20 take 1 capsule by mouth in the morning Caplyta 42 MG capsule Take 1 capsule by mouth in the morning. 04/04/2023 Active methocarbamol 750 mg oral tablet (10 sources) Muscle Relaxant Start: 06-10-20 24 take 1 tablet by mouth every twenty-four hours as needed methocarbamol (Robaxin) 750 MG tablet Take 750 mg by mouth Daily as needed 06/10/2024 Active 24 hr metoprolol succinate 25 mg extended release oral tablet (20 sources) beta-Adrenergic Pohelia Start: 04-24-20 24 take 1 tablet by [...] mg before bedtime. 0 08/02/2023 Active nystatin 267773 unt/ml oral suspension (20 sources) Polyene Antifungal Start: 06-26-2024 End: 08-08-2024 nystatin (Mycostatin) 160100 UNIT/ML suspension Indications: Thrush, oral Take 4 mL (400,000 Units) by mouth in the morning and 4 mL (400,000 Units) at noon and 4 mL (400,000 Units) in the evening and 4 mL (400,000 Units) before bedtime. Do all this for 14 days. 224 mL 07/17/2024 08/08/2024 Discontinued (Therapy completed) Start: 05-06-2024 nystatin (Myco statin) 001977 UNIT/GM powder Indications: Rash Apply 1 application topically Daily PRN 60 g 2 05/06/2024 Active nystatin (Mycost atin) 138240 UNIT/GM powder Apply 1 application topically in the morning. PRN. Active omeprazole 20 mg delayed release oral tablet (2 sources) Proton Pump Inhibitor Start: 05-16-2017 Omeprazole Magnesium (Prilosec Otc) 20 mg Tablet,Delayed Release (Dr/Ec) Active 40 MG PO Twice daily May 15, 2017 11:00pm ondansetron 4 mg disintegrating oral tablet (20 sources) Serotonin-3 Receptor Antagonist Start: 12-12-2023 take [...] needed for nausea or vomiting. 0 Active pantoprazole 40 mg delayed release oral tablet (4 sources) Proton Pump Inhibitor Start: 12-04-2023 End: 05-09-2024 take 1 tablet by mouth in the morning pantoprazole (ProtoNix) 40 MG EC tablet Take 40 mg by mouth in the morning and 40 mg before bedtime. 12/04/2023 05/09/2024 Discontinued (Other) raNITIdine 150 mg oral tablet (2 sources) Histamine-2 Receptor Antagonist Start: 05-16-2017 take 1 tablet by mouth twice daily Ranitidine Hcl (Zantac) 150 mg Tablet Active 150 MG PO Twice daily May 15, 2017 11:00pm rimegepant 75 mg disintegrating oral tablet (20 sources) Start: 05-09-2024 take 1 tablet by mouth once daily as needed Nurtec 75 MG tablet dispersible Indications: Episodic migraine (CMS/HCC) TAKE 1 TABLET BY MOUTH EVERY DAY NEEDED FOR MIGRAINES 8 tablet 5 05/09/2024 Active Start: 05-09-2024 End: 05-09-2024 take 1 tablet by mouth every other day as needed Rimegepant Sulfate (Nurtec) 75 MG tablet dispersible Indications: Episodic migraine (CMS/HCC) Take 75 mg by mouth every other day As needed for migraines 8 tablet 5 05/09/2024 05/09/2024 Discontinued Start: 07-26-2023 take 1 tablet by ayla th every other day as needed Rimegepant Sulfate (Nurtec) 75 MG tablet dispersible Indications: Migraine without aura and without status migrainosus, not intractable (CMS/HCC) Take 1 tablet by mouth See administration instructions Take every other day as needed 8 tablet 5 07/26/2023 Active rizatriptan 10 mg oral tablet (4 sources) Serotonin-1b and Serotonin-1d Receptor Agonist Start: 01-31-2024 End: 05-09-2024 rizatriptan (Maxalt) 10 MG tablet Indications: Migraine without aura and without status migrainosus, not intractable (CMS/HCC) Take 1 tablet (10 mg) by mouth 1 (one) time if needed for migraine May repeat in 2 hours if unresolved. Do not exceed 30 mg in 24 hours. 6 tablet 01/31/2024 05/09/2024 Discontinued (Other) sucralfate 100 mg/ml oral suspension (2 sources) [...] 2017 1:00am tiZANidine 4 mg oral tablet (20 sources) Central alpha-2 Adrenergic Agonist Start: 07-31-2023 take 1 tablet by mouth every eight hours for muscle spasms tiZANidine (Zanaflex) 4 MG tablet Indications: Chronic bilateral low back pain without sciatica TAKE 1 TABLET (4 MG) BY MOUTH EVERY 8 HOURS IF NEEDED FOR MUSCLE SPASMS 100 tablet 2 07/31/2023 Active traMADol hydrochloride 50 mg oral tablet (20 sources) Opioid Agonist Start: 03-18-2024 End: 07-04-2024 take 1 tablet by mouth twice daily as needed for pain traMADol (Ultram) 50 MG tablet Indications: Chronic pain of both knees Take 1 tablet (50 mg) by mouth 2 (two) times a day as needed for severe pain 60 tablet 07/04/2024 Active Start: 09-25-2023 take 1 tablet by ayla th twice daily as needed for pain traMADol [...] Discontinued traZODone hydrochloride 150 mg oral tablet (20 sources) Serotonin Reuptake Inhibitor Start: 06-18-2024 take [...] 2018 12:00am take 3 tablets by mo uth at bedtime traZODone (Desyrel) 100 MG tablet Take 3 tablets by mouth at bedtime. 0 Active 24 hr venlafaxine 150 mg extended release oral capsule (20 sources) Serotonin and Norepinephrine Reuptake Inhibitor take [...] 12:00am zolpidem tartrate 5 mg oral tablet (20 sources) gamma-Aminobutyric Acid-ergic Agonist Start: 10-31-19 24 [...] counseling and surveillance] 06-03-2024 Episodic Anxiety disorders (20 sources) Anxiety; Translations: [Anxiety disorder, unspecified] Onset: 05-29-2015 04-26-2023 Chronic Coma; stupor; and brain damage (2 sources) Daytime somnolence; Translations: [Somnolence] 08-08-2024 Episodic Diseases of white blood cells (20 sources) Leukocytosis; Translations: [Elevated white blood cell count, unspecified] Onset: 01-23-2023 01-23-2023 Chronic Disorders of lipid metabolism (20 sources) Hyperlipidemia; Translations: [Hyperlipidemia, unspecified] Onset: 01-23-2023 01-23-2023 Chronic E Codes: Fall (2 sources) Fall in home; Translations: [Unspecified fall, initial encounter] 06-26-2024 Episodic Essential hypertension (20 sources) Benign essential hypertension; Translations: [Essential (primary) hypertension] Onset: 01-23-2023 01-23-2023 Chronic Gastroduodenal ulcer (except hemorrhage) (20 sources) Gastric ulcer; Translations: [Gastric ulcer, unspecified as acute or chronic, without hemorrhage or perforation] Onset: 01-23-2023 01-23-2023 Chronic Headache, including migraine (3 sources) Headache; Translations: [Morning headache] Onset: 02-13-2018 08-08-2024 Episodic Headache; including migraine (20 sources) Migraine without aura, not refractory ; Translations: [Migraine without aura, not intractable, without status migrainosus] Onset: 01-23-2023 01-23-2023 Chronic Heart valve disorders (4 sources) Cardiac murmur, unspecified; Translations: [CARDIAC MURMUR UNSPECIFIED] Onset: 11-07-2022 Episodic Malaise and fatigue (20 sources) Fatigue; Translations: [Chronic fatigue, unspecified] Onset: 01-23-2023 01-23-2023 Chronic Menstrual disorders (20 sources) Menorrhagia; Translations: [Excessive and frequent menstruation with regular cycle] Onset: 01-23-2024 05-08-2018 Chronic Miscellaneous mental health disorders (20 sources) Insomnia disorder related to another mental disorder; Translations: [Insomnia due to other mental disorder] Onset: 01-23-2023 01-23-2023 Chronic Mood disorders (20 sources) Recurrent major depressive episodes, moderate ; Translations: [Major depressive disorder, recurrent, moderate] Onset: 01-23-2023 01-23-2023 Chronic Mycoses (4 sources) Candidiasis of mouth; Translations: [Candidal stomatitis] 06-26-2024 Episodic Nutritional deficiencies (20 sources) Vitamin D deficiency; Translations: [Vitamin D deficiency, unspecified] Onset: 01-23-2023 01-23-2023 Chronic Osteoarthritis (20 sources) Inflammation of joint of foot; Translations: [Primary osteoarthritis, unspecified ankle and foot] Onset: 09-02-2015 01-23-2023 Chronic Other endocrine disorders (20 sources) Hypoglycemia; Translations: [Hypoglycemia, unspecified] Onset: 01-23-2023 01-23-2023 Chronic Other endocrine disorders (20 sources) Polycystic ovary; Translations: [Polycystic ovarian syndrome] Onset: 01-23-2023 01-23-2023 Chronic Other gastrointestinal disorders (20 sources) Intestinal malabsorption; Translations: [Intestinal malabsorption, unspecified] Onset: 01-23-2024 05-16-2017 Chronic Other gastrointestinal disorders (1 source) H/O: GIT by-pass; Translations: [Bariatric surgery status] 05-16-2017 Episodic Other liver diseases (20 sources) Steatosis of liver; Translations: [Fatty (change of) liver, not elsewhere classified] Onset: 04-26-2023 04-26-2023 Chronic Other lower respiratory disease (2 sources) Snoring; Translations: [Snoring] 08-08-2024 Episodic Other nervous system disorders (20 sources) Chronic pain; Translations: [Other chronic pain] Onset: 01-23-2023 01-23-2023 Chronic Other nervous system disorders (1 source) Paresthesia of skin; Translations: [Paresthesia of skin] Onset: 02-13-2018 Episodic Other nervous system disorders (1 source) Paresthesia; Translations: [Paresthesia of skin] 07-25-2024 Episodic Other nutritional; endocrine; and metabolic disorders (20 sources) Morbid obesity; Translations: [Morbid (severe) obesity [...] (BMI) of 50.0 to 59.9 in adult ([facility])] 06-03-2024 Chronic Other nutritional; endocrine; and metabolic disorders (2 sources) Weight increased; Translations: [Abnormal weight gain] 06-03-2024 Episodic Other upper respiratory disease (20 sources) Allergic rhinitis; Translations: [Allergic rhinitis, unspecified] Onset: 01-23-2023 01-23-2023 Chronic Other upper respiratory disease (2 sources) Bleeding from nose; Translations: [Epistaxis] 06-26-2024 Episodic Residual codes; unclassified (20 sources) Sleep apnea; Translations: [Sleep apnea, unspecified] Onset: 01-23-2023 01-23-2023 Chronic Residual codes; unclassified (2 sources) Obstructive sleep apnea syndrome; Translations: [Obstructive sleep apnea (adult) (pediatric)] 08-08-2024 Chronic Residual codes; unclassified (1 source) Pain, unspecified; Translations: [Pain, unspecified] Onset: 12-29-2023 Episodic Unclassified (1 source) Auditory hallucinations; Translations: [Auditory hallucinations] Onset: 02-13-2018 Episodic Past or Other Problems Problem Classification Problem Date Documented Da te Episodic/Chronic Deficiency and other anemia (20 sources) Iron deficiency anemia; Translations: [Iron deficiency anemia, unspecified] Onset: 01-23-2023 01-23-2023 Episodic Diabetes mellitus without complication (20 sources) Impaired fasting glycemia; Translations: [Impaired fasting glucose] Onset: 01-23-2023 01-23-2023 Episodic Neoplasms of unspecified nature or uncertain behavior (20 sources) Thrombocytosis; Translations: [Thrombocytosis] Onset: 01-23-2023 01-23-2023 Episodic Nutritional deficiencies (20 sources) Cobalamin deficiency; Translations: [Deficiency of other specified B group vitamins] Onset: 01-23-2024 12-20-2017 Episodic Other connective tissue disease (4 sources) Pain in left foot; Translations: [PAIN IN LEFT FOOT] Onset: 06-27-2022 Episodic Other gastrointestinal disorders (20 sources) History of bypass of stomach; Translations: [Bariatric surgery status] Onset: 12-29-2017 04-26-2023 Episodic Other lower respiratory disease (20 sources) Dyspnea; Translations: [Shortness of breath] Onset: 01-23-2023 01-23-2023 Episodic Other non-traumatic joint disorders (20 sources) Pain in right knee; Translations: [Pain in joint, lower leg] Onset: 01-24-2023 09-25-2023 Episodic Other nutritional; endocrine; and metabolic disorders (20 sources) Body mass index 40+ - severely obese; Translations: [Morbid (severe) obesity due to excess calories] Onset: 02-12-2017 Resolved: 10-31-2023 04-26-2023 Chronic Residual codes; unclassified (20 sources) Edema; Translations: [Edema, unspecified] Onset: 01-23-2023 01-23-2023 Episodic Spondylosis; intervertebral disc disorders; other back problems (20 sources) Low back pain; Translations: [Low back pain, unspecified] Onset: 01-23-2023 01-23-2023 Episodic Viral infection (20 sources) Plantar wart of left foot; Translations: [Plantar wart] Onset: 01-23-2023 01-23-2023 Episodic Results Test Name Value Interpretation Reference Range Facility EMG 2 Extremitieson 07-25-20 Polyneuropathy, axon al loss, moderate Can 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 [facility] NVC 9-10 Nerveson 07-25-2024 Polyneuropathy, axon al loss, moderate Can 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 [facility] Glucose (Bld) [Mass/Vol]Orde red By: Avis Ponce on 06-03-2024 Glucose Blood, POC 96 mg/dL [facility] - Hematology and Cell countson 06-03-2024 HbA1c (Bld) [Mass fraction] 5.3 % [facility] No Panel InformationOrdered By: Avis Ponce on 06-03-2024 [facility] URINE CULTURE, ROUTINEon Bacteria identified Cx Nom (U) Urine Culture, Routine [facility] Healthcare Bacteria identified Cx Nom (U) Mixed urogenital corina [facility] Bacteria identified Cx Nom (U) 25,000-50,000 colony forming units per mL [facility] Bacteria identified Cx Nom (U) Performed at: [facility] Cx Nom (U) [address] [place], [place] [id number] [facility] Bacteria identified Cx Nom (U) Quiller Runner: Yash Marcum PhD, Phone: [phone] [facility] MR lumbar spine wo conon MR lumbar spine wo con [facility] Main [place] [address] [place] [address] MRI Report Signed Patient: Marilee Arriaga MR#: [id number] : 1975 Acct:[id number] Age/Sex: 47 / F ADM Date: 09/19/23 Loc: Room: Type: [facility] Attending Dr: Simona STOCKTON Copies to: [...] Beckford Jr., D.O.09/19/2023 2:27 PM Dictation Location: [place] [address] Transcribed By: [facility] 09/19/23 1427 Dictated By: Linden Beckford Jr, DO 09/19/23 1412 Signed By: 09/19/23 1427 Normal [facility] XR pre/post mri xrayon 09-19 XR pre/post mri xray [facility] Main [place] [address] [place] [address] XRay Report Signed Patient: Marilee Arriaga MR#: [id number] : 1975 Acct:[id number] Age/Sex: 47 / F ADM Date: 09/19/23 Loc: Room: Type: [facility] Attending Dr: Simona STOCKTON Copies to: [...] Beckford Jr., D.OArianna09/19/2023 3:08 PM Dictation Location: [id number] Transcribed By: [facility] 09/19/23 1508 Dictated By: Linden Beckford Jr, DO 09/19/23 1507 Signed By: 09/19/23 1508 Normal [facility] ECHOCARDIO M/2D COMPLETEon 0 11-07-2022 ECHOCARDIO M/2D COMPLETE Patient: MARILEE ARRIAGA Exam Date: 11/07/2022 : 1975 Gender:F Ordering : DR FRANCOISE MARTINEZ Admission #: [id number] Family : Order #: [id number] CLICK HERE TO VIEW EXAM ECHOCARDIOGRAM REPORT [...] Shay Masters M.D. on 11/07/2022 at 19:[address] [facility] Coding Summary.on 05-04-2022 Coding Summary. [id number] Gh0bWw+PG hlYWQ+VV7ETUCgO47khSHgfP9SN2o UFX4OOEILPBEPRO4VGD8jqNX8YTey M7FulmYs AzlouWLkUG78ZPz9ZQX8nYofLKatw Y1mgTWlG9j4QsWmZF46gZ87MFpyEO SyAlB0LvEcmyjroNEr M6dzKgLacDFxGll+PHRhYmxlIHdpZ JKaLZdkDNAtDmFqiBvnOT2iZu2pHJ VyLWNvbGxhcHNlOiBj q1shIQVpNTakAT2aaVbhK8KyaLI7D XNxv1w5Dy01bGQ+EKJwAXX8iRkzWO psa134KlDwg7eoVQY4 nFKvKZxlUDA2U54uz7H6IDTmZZEdS PA4gOM3xX2lhExhgixpU6AnaNMdFk K6LHF2gDJsdL7lhHdx yymibR8jRzu+E85FAD1EKXBSIW6YP hl3I8QlZcsbvHL+YL48PWUmDF11rA VlgCJyi8vyzAa4ZbVz VFRjZIZ1dHryNGkwy6KsNJMhF71fd XMsl1H2HCGupJizcBPlMfUwcNT1sP 1tJEblutbrl8wbltsr Vwhxq1yeir58lG44A14tQXuuUABiY QC6HXSpPFHxiGkaod3bfD2yYl8+ID bbg0con9jwjUb5HwYq CVWwosVfyZnpNKC4w3HzEy74S1Ckb Sflt4JvGgi3hq38dFVcb2Z3jWZ0TC lxPWJyvX9aXKyqSeN6 TGNmVmYgqD64qHLlQJkrVc8aoWhiq GuwHK1tNWVwcrwnBVEvcH3jBVFsyG KakMnxAY0wADRamsuu i319KpSlEYM5JUJdsKPkX7IjtF9jO xHsGAMrRPLdH1ZbxQKfZDmmQ690XI cdZtV0GROpbsOcX8Vs CCHdzMolSeD9i3W5Ce3Fw9YrxhnvC QG7SPwiZPK9QbB0TlNpNvN4I3WtDl j1KZFeiTzpIF8cU6Fl HWAjylzliqwceJJ9ORXgTSFasH94t VQmHSwiLl0gd0V3t451TVPkNFUmpD 67Hf8ygTugCKQvoYVA dH0mncxle9wealogCgFoRITgIKh4C Eg6JKMesIagTtGeYFD7DvV2BFR3rG TrqW8ywCdhnhhcgV8q Oyc+Z91bjI8nDDR0DIY9fjfiTCIwg cAlSQ06DD63V0RjVypemCVywMD+PG VcnqFgwRcwYP7lYcZc m2var1XqOEzhU7OgJFXgBFnkFsy2T NEfONJ7qRO7zM8qVLYsJJdzo8H9eY E0P4VsfdQfie7en3ym KDNmXElmQ19ikFXdz2F9SQBawSU0M SMzzZemGnUqkU85Buf+PGNvbGdyb3 RqQjoif9dpa6kndNp2 QqEsWTYamyOrvIttGHS4v6GeKi15C 29sIHdpZHRoPSIxNSUiIHZhbGlnbj 1taV7dJx9+PGNvbCB3 xYG5yK5pQKQjEiB5PPnpS559LwNhw UHtHihsh3hzh8cxjZj5ToFdMRUgrg AvvKknPHR7s2EqIv87 Q39bJVsiKMXiJIMjXGUaTTOvuRyqp i4qoY7hZt7+ZL4po7mxiy66yT00iL I+XHNwKQM1mXjaNZwu SIAmsN8zZBqhNeG1TFLxPdDuhK31v IEgBPogMb3tiWbbzYjnHP4gPDShsv gcc318GkZko5skKYKp pPHfEVahALQ7C65jy0F2FHExYLSvL UH0pVR5cB8jfDrczrspuRWwtSpmrz RolOnfTWjyECvcA901 RYVwdVeiTwCwbDjcjwUgOpPtBVf4M 9KnPld9JMGliMgzUO1eyMTxUTvfIr 6beOhscDbfRP8tQQMx htkef454KlObq4lmLBFcyVBwVBciC KT9X16gx8V4QYWhJMDeELF9uZW3bP 1hbGlnbjogbGVmdDsg bxGiiAzjTEdcORtaW024WJAudWwlO zXhhsOzAVCijVJ4CD17NZ99fWVgg9 T7kBX9I5JpELJlgmyf sxbiaNG0GZEbSCWthV68Zg8mkYpqK n6aAISzTKX1HULcrVTgN1VvaH9hNt GmVPSgGQOpU5EobWLy LRkqB834MSppAlQ9RLLpzyTvR7KgD PLraYctYeM9x8A3Gt4AM8N9MF24QE 00yYZib9O4jSB0K8Ul KACaueumefhepSH0AXFwJOFhoS33K y2mdXqjGs8dQYYvYOA0RTUktJSlN0 NzpN6eDgWdSPEkHEYa I2GuoWIaPIikL575VBcnShX8YHQyg dYdS5UoWWLmrMchGmK2y2S3Nb8HBX m6QP91KT59tZIus2J1 lBG6Y7QpESUofpcztevtrLJ4DNRcA QHdoW09Si9kyAwuHl7tLPZkSVK1LS OepXVbX9XpgS6oHqDq PTWhFPErV5UxyGQbFZckC668JHrvQ iW3FILxhdEqT9SuXRResOylSvH3u4 O7Ri6WPHSiLA96SJF3 yFD8ZH99VP90I7MmFhpdlPCnlED+P HRhYmxlIHdpZHRoPScxMDAlJyBzdH okBK8tVz6aTKRoUZAs pNhoqIVjIvRlv0zpOOXrYGvkZR3de IcjB0CgyHC5OTKra7t7Rm69B46qB4 JvdXA+IKWgnKJ2vEM0 lG2cRtEdTqL2UYshT659EqHttTNhV rtah0sus4fmjTp6DcF4NVGrudRgbZ plCBL0q7CcIg72N94d OIrbBBTuMPNtUHYfDFSpcJlsrc4ls G9wIi8+MLKobHL5wSF6eF3fHiPkUr R2QFzzC326CjVzoVIn Kmavx7fdh8gbzCv9NlOcYWBqdvZhr PjaOYO1c9WeKw04U1XtoCgte9SnWy h2ni41uZXzj9V8lVB4 E8ExYJAculpzmBXxpQcvSH5jCIRug gveXAHofX2nMQQrX1x2DcLcErJ3HM ygK4EmzbK2YYJejILv UTjrUBP9O27zk2F7CFZpKUYbQJK2y JI6lZ6dlEhzqoyduHBfdFvmpsTnlW cgSJmeQKgwZ209XAJb oYoiFJIotS9zAKScoNQohVikTQ2nX FOeqacuCpZYMZdONXVSOZ6KEOUAOx IQVA20ZI35wEUwa8H5 sVQ3R5QlQFDukoobpodqeZW0LAImN NWbcV48hGRxDDreHk5vo4A6s029XV FjTWCrvG97Kf1xkIyg YBTulHHUtB3fvhzen1ssicfeGsBgB GZjTPv9LNo6JUYwzUrgEjQsSJO7Wl O2VDV8eIDmgF8usFfc acbhtL0uDsa+GBTyGtIqNDd7LDquc GQ+EYIaTNN5zOluVLfwPNEnmZ6aCJ SdL2w7HnZtJbG0UJdy L5HrAAMltfwlBc67fX0iWsNxWiW0A NzuU6IarvJ5TOJqkCBxJKvvWLV5A2 8nl7X3OKGaINOkPPD8 jNI0xU9itEntvczqsIBtpVtsegNra ZogXVxfNTnrN611RQWqpSwdNwR9RA ujAFHrIS07RL40pLVe v7I5nHW1E2IyPSJdtqtzaeccnOU5L FGwJCYluD23wXHqWDcyNr7og7U7a5 22UWGxKUDzsG80Hj7d xWnfUQCipKMAtB6ybymlb2opxebqO wYaOWLiVDp7GSl9NIBvoNznRbLiUJ U6WsE7YYL9pQZmzL5s mSuehapteG7qGyt+PkRvHKrfQJ52Z I72fGVxa6J7sSK6V3DvCYCbrbhvjc tteOO8BNAoWIMegS98 pCMhXUilWp6jj4I6v539UBUoBTIvd G53Co6qkYxqDWTnmZVBwD0qfgfnn2 xvcjogIzAwMDAwMDt0 DVj0KPRneAntFhBhYWS1BeC8TOL1e NWceT3mcWtesfjdfI5fTly+UmVjdX UciN5sLQ94JW20B0Me PjwvdGFibGU+PHRhYmxlIHdpZHRoP XvjMDNqDkBhtBtcEX0hRc5sVNZsVR ItoPovsHTvWeNoq1yw IOBtUQepVI8qhKacC2ReaKE2XMRes 4x6By17D18gC1GjuXS+OZXjeBW6aG W6wD5dDqWeFwK0XPdl A931SaFxnNTnQgude4icx8rmsTt9Q hGhRRVudnSqlQhmIXU6v3FkCt41S9 9sIHdpZHRoPSIyMCUi AVFewMpeau9bzT8dAn3+HZGiuSM0q RU2qU8rCcExFqJ9GHkrH847XlExyW ExRaowB23vF0QkkKW+ XQRrUsg4IIMnsIrbIQ8csKAhUBhhH v4cKVV5WsNgBpJgYBenK2RyYMLwjg dibsthuIQ0WHNtWEBy kS93Hm2yxIgkNw1jCVNnDUZ0SZBba NQdB8MatB8uMcQjKGIyXLZlH2RqoL SlAZxeC331BUdwRoZ8 XJPkpcVuZ1UiNCWnyWkmKuD8n9V4J a0YbUskdUWaJT2nCjEfGWk3M5FhMh x9RVEpdXfwWK6zdVCt YRfgLs7apArjqCgxWQ6iEOHejfqna 803VwQnp8iuLEGivHLyRLvdCZW6C7 2ft9F4WOGvGNNlJCD4 yYX9fC3xzCcxcaldyVVsyLkdndUcc UmcPUpeOZcsP154PHCgmNusVvDUOc n2E4XyBti5LSRnzBzr RA2svCQgNPisIh5voHawmZvuFU7hY MQixxcoe076KeGox2cqNGZylGVdSI dpUIC9U49hd4Y0NSUa ZYXyARP8xPZ7pE3oeSdbdisogZFdy CdvdxKypXouELlgUBydK757BWIrkQ lbWy1NZbd7W7NnFdb9 XUWcwZeeFE3zuDSqRZkkQd3eqLyhy IjnVL4dILGabblrm630JkKic2ogEI ZbxMLtTVawNAN6R65e t6L6NHWxYEVoHYF8pFG4kH8ilNimm jogbGVmdDsgdmVydGljYWwtYWxpZ2 46IHRvcDsnPlBheWVy OjwvdGQ+HA35tr38H9UtOrryYpi3I DDlPVU2jIU4mI4vNQBiBZfko4I8lW K7T4UfnaRpjl9pc7ns YXBz (more content not included)... [facility] Cons[facility] Treatment[facility] Consent for Treatment [id number]#1.00CD:127 [facility] Outside Records Officeon Outside Records Office [id number]#1.00CD:127 [facility] Physician Orderon 04-14-2022 Physician Order [id number]#1.00CD:127 [facility] Coding Summary.on 11-12-2021 Coding Summary. CD:[id number]:[id number] Gh0bWw+PG hlYWQ+LM6LKLLeT28aqGPvbV0EU4y MRC9XZAAZEAKCFW9EBH2mePM1NQxi P0FeinLg BsqseACzII72GUo6RHE1xUkqGQevu V7brGCaD0i8NtKqWT08lC27GIjhUK QtMsY2BkJhihehzYVo Y5owYnAisPQlTcn+PHRhYmxlIHdpZ GZnJMppAJKmPiSorFutNZ5oZp3vJO VyLWNvbGxhcHNlOiBj y4xiGIYoGPpsLK7nsBpnE4AnyWZ9C CCrz9u1Rk63yST+KHXhLWT2sSrxYH klo048CwSzr5taXPK8 mYWiBBuaZHB5U67li6K0VOXdQSXmN UQ3qNC9qS0lhHxikvjfA8XzfQGiVe L8BCU1fCWgoC8yuTtd pcpbqB7eVpn+U43FFU6TIOGNRG5WC pm4S1LvPbzdqPZ+BC97OZFzGU64gO AjtMOek8tfmOo5KvJz WFPgJPU0qNlvCHxkj5VcYJGnD11ya TAsq5Q3JCJqxQcfxCOmZfLacHL0fL 8cHHwcwngap3uojtle Reloh5fyuq32fM92F44wSPftLLLqM SJ3SRLgRYNlbNmnrd0tiX8tIy3+ID mnl8sau2cvjBx8TnRn YXDuimPkdGznQSR3g1JpEz67K2Emz Lqsd2WiAku4uk26dAUxf3Q2rYS0LP mtNUZakD2iEVadDyM0 FPYnChBgcA73mAIxAUnyVh9ldLymp ZdvEP5wVBAqduqlWJWynT2lRJWyjA TpkThfHD1jMQUleuec b129YzRlINM2BIObkGGfG8HmlT3mR rKdASWoRJFgI4IycDNaPXbuU941KX ntOhO0JCDuhaUgH0Dy VZTgeKhzKpW8y4J3Mf4Rw1RinmycL JM2LOcuLFFhKjE7SwGbLnS1S8MnSp e6NJAhiVybAM4cB5Gl KQNbfoowtctvoKI3VUVzDPEawX53n AGlDMnzQu0mn0G1u393MQVvTFYaoY 39Yi5jiFjjTTYkzBMA xM9xauqsb2cgfzyqYeAbRZJfCBr3A Th1LTXhpJkfQwKzUKC2KlL8YBT0kJ WrmI2ayLnwtikfxV6e Oyc+B45fsO1iGOU7WPD6vmybZVNkp hEbOE81MD79Z8WhSajenGJgiHI+PG MiztLhdEveQB2xHeOc p8cqz9AaNEppV4HaUGWfLKdwOuc7I DHrEVW8iJR1bO5uEAYkUOlzi3X9nP C8Q7CcejSkze7ed2ss GTIeSByrA66zlEEyw5B4YSSneJV1N CKoqYhcJuThuN50Iff+PGNvbGdyb3 TqEkomh2usp6atiPp9 QqMfAAOonaSqiHjsIPH1t9MmPh30W 29sIHdpZHRoPSIxNSUiIHZhbGlnbj 7chA6jYz0+PGNvbCB3 fJG4vG2lLKPbFwG7SCzsL052XbEob YKvEprhu7hrn5jmiDf4LuBqPPZqpg UpqGibLWF9w4MrMg46 J48sGZvbTTIwRJNpVJFhNUHlpSwcs i0xbY1jVw9+MQ5pz5fnfv30qI57fR I+NHLmUAU7bDeoTRjg YHRlfJ0yHSytRoR9JOYrFxCggF41r LUjCJlrEc1vjIcxoFatHV6mCBIsrn mav346OjHaw2bwKBJt nCNqWPqcWBZ8C79kx8J9DILkZCOeP JB6jWG9bP8htOokpyqgeJAxqDkowa GkwCysERcmGHoyK576 JBQybQkbEdFtaQjbzzUfSgBjJYy0Z 3XfGmq3QWSpzPamXZ5uaNNlMBluOc 8myPjydPqwJE6kXHKa yohbk870YlGjb0xsOQGsdHGnEPadC WJ1R88yh8Q6FVDeRYLhUFW7nBW3lA 1hbGlnbjogbGVmdDsg blFwjDlnJOjqKSruS424JWOiwPeeW fJlkdHiTBWlsWS3KQ51HS89iLKpf1 O4kCS7G4LgFOIdlhzj ixhttXI3PGBbRIXawQ07Nw3giGluQ x2hYIZdSYA0RTHhkQEvK8RtxY6vPc YoGAWwMWZbY9ImtOVk VAkgV048YIepHkB8TIVoodEmG6LgS BPqqWztKjN1u9X6Yl9SB2W9GP44SQ 80fUZwv5Y3mXH9I6Ls KVSubprqxjiraSQ5FWNbOMLfsG97L r4scHitEu7wFVViBCO3BNHomWPbN8 HlrP1bJiUoGIBsKMCx K7VjyJMsOXgmT127LIxrZhC4YWQuu hGxH3PlRNMzbWasLeJ8d2Y4Av3SGW i7OP58HI24vWSuc0N1 cSD1I6NiJERvtrgotorplFK6FXUfI FGykU62Ts7yhNzgKv7dQZGiKDA5CE NamZFtW3MpwA4oAkDt CHOgCPKrF6NriLVnYJyqR643YXglA eK0FHVubkBaJ6UnOOChcUprEjH9z3 N8Nz5BJCXyNL01TUN0 iCO7RZ70VA86T4XlJbchkBKcmDJ+P HRhYmxlIHdpZHRoPScxMDAlJyBzdH yhKW1pNq9lIPEdSXGd oRhojGHsSwKeb6gdXXIuCSfnPD9he CpsE0QsnNW7XZJns7b5Fb63H23nX9 JvdXA+IJQotWQ9bQX7 qS1cErYlPgV0CTorC901TpXkkVUiK ptfa7yns4yhjCy4PjD4YPYnafDopO vtOCF0b7WyHr24R59j DRrzVEEaCNKeJWAhMGEnoSvsop0os G9wIi8+ZMHrrXZ5dRF2sV5iFqXgMl A4VCtwB891AnRmeXQl Igfdd0dsy1lsuFr9SbUlCRUzelUvz RehAAS7x5ZgTc79V0HqhQbel1HdHb r9cr90tQQpa3Q6dYJ1 N5WcYKSvmukivGZtlJawSM7mKUNtu lzrOHFayU2lTQMmI6u0GhMzAkT1DN hsL0WahkP3SWEjwBEb GIquIKQ2N99od0C0EMSfPHYrNXQ8f ZS5eU8mzWenrvtcpHNqkCzurpYnuO wbKMnxOYswJ241ZXSk bZiiKTAkrE1cKMZoyDPnmOkxTG2gD UXirissAeDZRHmHTPSGVW7ARGYMBw NIIM66OT08nUDys6D4 fDK3S8RlJQDiviqwrjguoIR6IZMzA GTybT96xRBqVQiaAz0vp8Y4j915DN SvRKQetB39Lo0kyRxb LQCpjBXXoF0vniihs6pedoyzOsOlK MRdSFy4BGk7JVSrpKacXlLgTFB1Ws M4FAB3nFJyqA0ssBvh yzgafZ7lOaj+HAGrDvLiYDa3VZyhb GQ+HXCoLZH3tNjtUHwpDXCaiS9uZB QbX1h3KcVwEnY1GXrh M2EtAWVdugbfQh33jL0sXdUqHgD7Q AhlH9WaroE7SALvnKIxGQmqODH4S4 6vi4J6VGKhWEEhUBF0 eCH2aH5bfPnpjtostWCzbMuapzGbq ZksUAtsYKlzM129CMBdxYvwQiVbRJ jwZPFqTN72FR65bBCz f9O5uVV5U8AaXXBuqdzsyfynrUU1E SWyTGXxoG99wJRrPHwqCl5xh1H4s9 61SIPoJOWkkQ71Of9p cOtpNPKobHCAoH6nlewwa1ofxmqjS rSnNWPhTJf0LGm2BNHewFjqFnWmRZ V6DlP3AYH9rWPfkZ3d aAcozebqlM0qOrg+TrQsQPwjRY05S N80lLMyk1U5jNZ9D8ToQUIumhalsj cplVX2SDDmCIBlkI24 aDNaTGqfJs1iu7E6n503RCXlGGZng D10Dj6ipYsiWQOgqFZAyY6yeazam4 xvcjogIzAwMDAwMDt0 ILq5GQXfaOyrJuBxSWY8QqP4POW2z NDvcE4liVggabzrwQ7kYmu+RW1lcm ctafP6LC36DF96K4Jk PjwvdGFibGU+PHRhYmxlIHdpZHRoP SfpSXYgZpGmrIvsKE9yZs4vQOGfVS VvdEuyjYKiRbMxu1uk AYXlSUtcIS0ibEpsJ8ItcHP3QTSqc 9z2Mg94Z24cB4YexOW+MSAhpZK9pO M6fT0dMeXmHpS5YKgd F247FvXbfJUbBbdjk9log8lkxRg2N fPvLQBbhbAvnKueQTM5y6FgIz53U0 9sIHdpZHRoPSIyMCUi VJZntHjplg5wiP6aFi3+LEMkhWP4u XU7mF7xViMmJjF4YFejI943MpOeaJ IwEhdsP98jB7AhiRC+ KPRfZid9QYNjuGieDK7ttSZxYZiqR i9bPZW6UtNtBzAwOJpzM8XpZVFwxi ovxvqcnDB4EOUtJNCj cG66Uv4ivMdhGn8eLQOcDRA5NLGpn XXlS7DwiE7aOgRaWLRjFQLwQ2VrtZ JjQBfzQ406SFnzAxH0 SSCdjoIdV1GuZCZjySpqCvJ0v2Q9S a2RkTjfdEMaJZ7wQiRgNSw5C9DtWo w9NHIwkPvrUP3jwAVg ZHvrOf9wvDociHgbXB9jAWMzkglqv 846PfJvy2anNRUdmZDdJFziWYA2P8 1es0Q3MUKoZQOaACZ9 aLJ6rJ7wnWqcivwznNIiuZlnarMjz WgnVSpvAGdvE077ELPrrUngWfYJMi b4D8KfZex6BRHpgZsc TZ2zrREdJMpaGs7zpGygjQtoZX3gB CGlyqcjc033VjPgh7gdAVQsmQAzAC gqSTH4P32te6P2LAKa HTEcJDF3fQF4tA2ojBljujampYNpy FarqlXctEzwJWhfJJvoL488NDMviE unYt4EOly3G7YxPnh2 HXEfoMkbNP2duRNxIPnfVf4cbLaat AyyXW7yHQHvsesmh458AtSue4zwZR YcpVRuZLrfZPI9J39c d6E2QKPjOUUsWJW5rVM4lH5dzXpla jogbGVmdDsgdmVydGljYWwtYWxpZ2 46IHRvcDsnPlBheWVy OjwvdGQ+DB60ur98Z5UwVcsrWfk5S IBuOLB7nES6pY9zNAJiEJvku9R8nX S8N2BvbyApfr9lw5bp YXBz (more content not included)... [facility] Consent for Treatmenton 10-19 Consent for Treatment [id number]#1.00CD:127 [facility] Discharge Instructionson Discharge Instructions [id number]#1.00CD:127 [facility] ED Clinical Summaryon 2021 ED Clinical Summary (Inserted Image. Maria Del Rosario ble to display) [place] [id number] ED Clinical Summary Person Information Name: MARILEE ARRIAGA [facility] Age: 45 Years : 1975 Sex: Female Language: Upper Sorbian PCP: FRANCOISE GAY Marital Status: Single Visit [...] 11/05/2021 16:00:59 11/05/2021 16:00:59 11/05/2021 16:00:59 ADDRESS: [address] [place] [id number] PHYS DOC NOTES: MEDICAL INFORMATION: Prescriptions Given: New Medications [id number], [address] [place], [place] [phone], [phone] acetaminophen-hydrocodone (Centralia 325 mg-5 mg oral tablet) 1 Tablets [...] Follow up: With: Address: When: Em Mir [address] [place] [address] Business (1) In 3 days 11/08/2021 Comments: Return to the emergency room if your pain gets worse or any new symptoms. With: Address: When: FRANCOISE BARNES [address] [place] [id number] Business (1) In 3 days DIAGNOSIS: 1:Avulsion fracture of left ankle; 2:Sprain of left foot [facility] ED Note-Physicianon 11-06-19 ED Note-Physician Basic [...] and crutches was given. Patient was given Centralia in the emergency room. Will discharge patient home with Centralia and follow-up with Ortho. The OARRS report [...] Foot 3+ Views Left Medications Administered Given Centralia 5/325 Tab, 1 tab(s), Oral Disposition Plan Patient Discharge Condition Stable Discharge Disposition Discharged home Discharge Prescription List Prescriptions Centralia 325 mg-5 mg oral tablet, 1 tab(s), Oral, q6hr, PRN Follow-up With When Contact Information Em Mir In 3 days 11/08/2021 EDT [address] [place] [address]- Business (1) Additional Instructions: Return to the emergency room if your pain gets worse or any new symptoms. FRANCOISE BARNES In 3 days [address] [place] [address]- Business (1) Additional Instructions: Patient Education Crutch [...] Tab, 100 mg= 1 tab(s), Oral, Daily Centralia 325 mg-5 mg oral tablet, 1 tab(s), Oral, q6hr, PRN ondansetron 4 mg/5 mL oral solution Prozac 20 mg Cap, 20 mg= 1 cap(s), Oral, Daily Prozac 40 mg Cap, 40 mg= 1 cap(s), Oral, Daily Qvar with Dose Counter 80 mcg/inh inhalation aerosol ranitidine 150 mg Tab, 150 mg= 1 tab(s), Oral, BID SEROquel 100 (more content not included)... [facility] Comment on above: Result Comment: Elec [...] 08/04/2001 Document Revised: 07/20/2018 Document Reviewed: 01/27/2017 [employer] Patient Education ? 2020 [employer] How to Use a Stirrup Ankle [...] the bra (more content not included)... [facility] ED Patient Summaryon 022 ED Patient Summary (Inserted Image. Maria Del Rosario ble to display) [facility] [address] [place], [place] [address] Patient Discharge Instructions Person Information Name: MARILEE ARRIAGA Age: 45 Years Arrival Date: 11/05/2021 13:19:01 Discharge Diagnosis: 1:Avulsion fracture of left ankle; 2:Sprain of left foot Primary Care Physician: FRANCOISE GAY Provider Information Primary Provider: Tyler Petersen M.D. Advanced Lollypop Machine Operator:None The exam and treatment you received in the Emergency Department were for an urgent problem and are not intended as complete care. It is important that you follow up with a doctor, nurse practitioner, or physician?s administrative sales assistant for ongoing care. If your symptoms [...] Instructions: With: Address: When: Em Mir [address] [place] [address] Business (1) In 3 days 11/08/2021 Comments: Return to the emergency room if your pain gets worse or any new symptoms. With: Address: When: FRANCOISE BARNES [address] [place] [phone] Business (1) In 3 days In the [...] opioids can be used to help relieve bshkwlcw-zx-otmhfw pain and are often prescribed following a [...] Administration (www.fd (more content not included)... [facility] XR Ankle 3+ Views Lefton XR [...] Barnett MD Transcribed by: KAIDEN Technologist: [facility] XR Foot 3+ Views Lefton 10-19 XR Foot 3+ Views Left Exam Date/Time: 11/05/2021 13:50 EDT Reason for Exam: Fall Report Refer to concurrent left ankle radiograph dictation. FINAL REPORT Dictated: 11/05/2021 2:04 pm Rony Barnett MD Signed (Electronic Signature): 11/05/2021 2:04 pm Signed by: Rony Barnett MD Transcribed by: KAIDEN Technologist: [facility] MRI BRAIN W WO CONTRASTon MRI [...] by:SUMANTH Garciaigned by:Margo Rodríguez MD02/13/18inal result [facility] CNDSon 02-16-2017 CNDS HNO ID: [id number] thor: Mark Anthony (Res) AdenugaService: General SurgeryAuthor Type: ResidentType: Discharge SummariesFiled: 02/16/2017 11:44 AMNote Text:[facility] [place] [address] or [phone] [facility] O N F I D E N T I A L I N F O R M A T I O N -------STANDARD [facility] DOCUMENTDISCHARGE SUMMARYPatient Name: Marilee Buckner [...] as needed.Future Appointments:Future AppointmentsDate Time Provider Department [place]02/23/2017 2:30 PM [id number]-PUSTVORCRRENÉE MORENO GENBMI GENS A/M 03/09/2017 11:00 AM [id number], KASEY (PHD) GSPSMN GENS A/M 03/16/2017 12:00 PM [id number] 2 GENBMI GENS A/M D04/06/2017 1:45 PM [id number] MORENO GENBMI GENS A/M D05/16/2017 10:30 AM [id number] TAM GENBMI GENS A/M D05/16/2017 10:30 AM [id number] SOTO GENBMI GENS A/M BLDPatient will follow-up in clinic with Renée Moreno MD as scheduledabove, or sooner if the need arises.Electronically SIGNED by Licensed Independent Practitioner: Mark Anthony Jean MD [facility] Glucose POCT ([place], [place] A Use Only)on 02-16-2017 Glucose mass conc 105 mg/dL High 65-100 [facility] Comment on above: Performed By: #### G LUP ####[facility] [place], [place] [phone] NURSING PROGon 02-16-2017 NURSING PROG HNO ID: [id number] thor: Lilibeth Ortega (Rn) SUNSHINE Santoservice: (none)Author Type: Registered NurseType: Nursing Progress NoteFiled: 02/16/2017 11:37 AMNote Text: Nursing Progress NotePatient Name: Marilee SmithBEBETO: [id number] Location: [place] [id number] _Daily Note: Patient has been discharged home; [...] note was completed by: Lilibeth Santos RN [facility] NURSING PROG HNO ID: [id number] thor: Lilibeth Ortega (Rn) Danielle, RNService: (none)Author Type: Registered NurseType: Nursing Progress NoteFiled: 02/16/2017 10:27 AMNote Text: Nursing Progress NotePatient Name: Marilee OlivierHesham: [id number] Location: [place] [address]/[id number] _Daily Note: Doing better this am, able to take all of pills and drink theKphos, took a shower, so taking in more po, pain controlled, no emesis, nomore bloody stool, ambulating VSS, on RA, expecting to go home today,continue to monitor.This note was completed by: Lilibeth Santos RN [facility] PROGRESSon 02-16-2017 PROGRESS HNO ID: [id number] thor: Hiram (Romain) Monikaervice: General SurgeryAuthor Type: ResidentType: Progress NotesFiled: 02/16/2017 8:02 AMNote Text:General Surgery Progress NoteName: Marilee OlivierHesham: [id number]: 02/16/2017SUBJECTIVESubjective : No acute events overnight. Last [...] lb) LMP 01/27/2017 SpO2 94% BMI 62.73 kg/k8Acncii/Output Summary (Last 24 hours) at 02/16/17 0759Last [...] with morbid obesity now POD 3 s/p fcciejdnuvsaDoax-ws-O gastric bypass. Bloody bowel movements resolved with stable H/H.- Phase 2 bariatric diet- Heplock IV- Wean O2- PO pain meds, hold toradol- Will discuss resuming DVT prophylaxis- Encourage incentive spirometry and ambulation- Anticipate discharge today on home Richelle Gordon MD[facility] Surgery ResidentPager [phone] [facility] Basic Metabolic Panlon 02-15 Anion gap 10 mmol/L Normal 9-18 [facility] Comment on above: Performed By: #### B VIANCA MG1, PHOS ####[place] [id number] [place], [place] [phone] Calcium 8.1 mg/dL Low 8.5-10.5 [facility] Comment on above: Performed By: #### B VIANCA MG1, PHOS ####[place] [id number] [place], [place] [phone] Chloride 104 mmol/L Normal 98-110 [facility] Comment on above: Performed By: #### B MP MG1, PHOS ####[address] [phone] CO2 27 mmol/L Normal 23-32 [facility] Comment on above: Performed By: #### B VIANCA MG1, PHOS ####[place] [address] Creatinine 0.78 mg/dL Normal 0.70-1.40 [facility] Comment on above: Performed By: #### B VIANCA MG1, PHOS ####[place] [address] eGFR (non-black) mL/min/{1.73_m2} Normal >60 [facility] Comment on above: Performed By: #### B VIANCA MG1, PHOS ####[place] [address] Glucose mass conc 119 mg/dL High 65-100 [facility] Comment on above: Performed By: #### B VIANCA MG1, PHOS ####[place] [address] Potassium molar conc 4.2 mmol/L Normal 3.5-5.0 [facility] Comment on above: Performed By: #### B VIANCA MG1, PHOS ####[place] [address] Sodium 141 mmol/L Normal 132-148 [facility] Comment on above: Performed By: #### B VIANCA MG1, PHOS ####[place] [address] Urea nitrogen 15 mg/dL Normal 8-25 [facility] Comment on above: Performed By: #### B VIANCA MG1, PHOS ####[place] [id number] CBCon 02-15-2017 Erythrocyte distribution width Auto Ratio (RBC) 12.9 % Normal 11.5-15.0 [facility] Comment on above: Performed By: #### C BC ####[place] [address] Erythrocytes (RBC) 3.63 10*6/uL Low 3.90-5.20 [facility] Comment on above: Performed By: #### C BC ####[place] [phone] Hematocrit (HCT) 33.8 % Low 36.0-46.0 [facility] Comment on above: Performed By: #### C BC ####[place] [phone] Hemoglobin mass conc (Bld) 10.9 g/dL Low 11.5-15.5 [facility] Comment on above: Performed By: #### C BC ####[place] [phone] MCH 30.0 pG Normal 26.0-34.0 [facility] Comment on above: Performed By: #### C BC ####[place] [phone] MCHC mass conc (RBC) 32.2 g/dL Normal 30.5-36.0 [facility] Comment on above: Performed By: #### C BC ####[place] [phone] MCV 93.1 fL Normal 80.0-100.0 [facility] Comment on above: Performed By: #### C BC ####[place] [phone] Platelet mean volume (PMV) 8.5 fL Low 9.0-12.7 [facility] Comment on above: Performed By: #### C BC ####[place] [id number] Platelets 368 10*3/uL Normal 150-400 [facility] Comment on above: Performed By: #### C BC ####[phone] WBC (Leukocytes) 11.75 10*3/uL High 3.70-11.00 [facility] Comment on above: Performed By: #### C BC ####[place] [phone] CBC and Differentialon 02-15 Abs Baso 0.02 k/uL Normal 0.00-0.10 [facility] Comment on above: Performed By: #### C BCDIF ####[place] [phone] Abs Teller 0.97 k/uL High 0.00-0.86 [facility] Comment on above: Performed By: #### C BCDIF ####[place] [phone] Abs Neut 8.11 k/uL High 1.45-7.50 [facility] Comment on above: Performed By: #### C BCDIF ####[place] [phone] Basophils/100 WBC Auto (Bld) 0.1 % Normal [facility] Comment on above: Performed By: #### C BCDIF ####[address] DTYPE Auto Diff Normal [facility] Comment on above: Performed By: #### C BCDIF ####[place] [phone] Eosinophils 0.35 10*3/uL Normal 0.00-0.45 [facility] Comment on above: Performed By: #### C BCDIF ####[address] Eosinophils/100 leukocytes 2.5 % Normal [facility] Comment on above: Performed By: #### C BCDIF ####[place] [phone] Erythrocyte distribution width Auto Ratio (RBC) 13.1 % Normal 11.5-15.0 [facility] Comment on above: Performed By: #### C BCDIF ####[place] [phone] Erythrocytes (RBC) 3.51 10*6/uL Low 3.90-5.20 [facility] Comment on above: Performed By: #### C BCDIF ####[place] [phone] Hematocrit (HCT) 32.6 % Low 36.0-46.0 [facility] Comment on above: Performed By: #### C BCDIF ####[place] [phone] Hemoglobin mass conc (Bld) 10.7 g/dL Low 11.5-15.5 [facility] Comment on above: Performed By: #### C BCDIF ####[place] [phone] Lymphocytes 4.35 10*3/uL High 1.00-4.00 [facility] Comment on above: Performed By: #### C BCDIF ####[place] [phone] Lymphocytes/100 leukocytes 31.5 % Normal [facility] Comment on above: Performed By: #### C BCDIF ####[place] [phone] MCH 30.5 pG Normal 26.0-34.0 [facility] Comment on above: Performed By: #### C BCDIF ####[place] [phone] MCHC mass conc (RBC) 32.8 g/dL Normal 30.5-36.0 [facility] Comment on above: Performed By: #### C BCDIF ####[place] [phone] MCV 92.9 fL Normal 80.0-100.0 [facility] Comment on above: Performed By: #### C BCDIF ####[place] [phone] Monocytes/100 leukocytes 7.0 % Normal [facility] Comment on above: Performed By: #### C BCDIF ####[place] [phone] Neutrophils/100 WBC Auto (Bld) 58.9 % Normal [facility] Comment on above: Performed By: #### C BCDIF ####[place] [phone] Platelet mean volume (PMV) 8.3 fL Low 9.0-12.7 [facility] Comment on above: Performed By: #### C BCDIF ####[place] [phone] Platelets 391 10*3/uL Normal 150-400 [facility] Comment on above: Performed By: #### C BCDIF ####[place] [phone] WBC (Leukocytes) 13.80 10*3/uL High 3.70-11.00 [facility] Comment on above: Performed By: #### C BCDIF ####[place] [phone] Glucose POCT ([facility], [place], [place] A Use Only)on 02-15-2017 Glucose mass conc 111 mg/dL High 65-100 [facility] Comment on above: Performed By: #### G LUPOC ####[place] [phone] Glucose mass conc 121 mg/dL High 65-100 [facility] Comment on above: Performed By: #### G LUPOC ####[place] [phone] Glucose mass conc 99 mg/dL Normal 65-[address] [place] [address] Comment on above: Performed By: #### G LUPOC ####[place] [phone] Glucose mass conc 116 mg/dL High 65-100 [facility] Comment on above: Performed By: #### G LUPOC ####[place] [id number] Magnesiumon 02-15-2017 Magnesium 2.0 mg/dL Normal 1.7-2.6 [facility] Comment on above: Performed By: #### B VIANCA MG1, CLEOS ####[facility] [place], [place] [phone] NURSING PROGon 02-15-2017 NURSING PROG HNO ID: [id number] thor: Lilibeth Ortega (Rn) Doroteo Santos: (none)Author Type: Registered NurseType: Nursing Progress NoteFiled: 02/15/2017 4:15 PMNote Text: Nursing Progress NotePatient Name: Marilee OlivierJeraldRN: [id number] Location: [facility]/[id number]-[id number] _Daily Note: Dr called to inform that patient had another bloody stool itwas dark red, no change in vital signs HR has remained in 70's, on RA, noincrease in pain, patient is only taking sips of clears otherwiseunchanged , stable, lab orders again @ 1800.This note was completed by: Lilibeth Santos RN [facility] NURSING PROG HNO ID: [id number] thor: Lilibeth Ortega (Rn) Doroteo Santos: (none)Author Type: Registered NurseType: Nursing Progress NoteFiled: 02/15/2017 10:29 AMNote Text: Nursing Progress NotePatient Name: Marilee OlivierirMRN: [id number] Location: [facility]/ZE-[id number] _Daily Note:Patient states she's feeling ok, just brought up some 'phlegm',( clearbubbles) no emesis, able to keep down 'bites' or sips of broth and tea,given IV phenergan, denies pain, encouraged to continue to ambulate,stable, call light in reach.This note was completed by: Lilibeth Santos RN [facility] NURSING PROG HNO ID: [id number] thor: Liliana (Rn) Rolo, RNService: (none)Author Type: Registered NurseType: Nursing Progress NoteFiled: 02/15/2017 5:53 AMNote Text: Nursing Progress NotePatient Name: Marilee OlivierirMRN: [id number] Location: [place] [id number] _ Surgery paged [id number] Marilee Arriaga: patient had dark bloody BM. pleaseadvise. Liliana [place]er [id number] No new ordersThis note was completed by: Liliana Seth RN [facility] PROGRESSon 02-15-2017 PROGRESS HNO ID: [id number] thor: Mark Anthony (Res) SheldonugaService: General SurgeryAuthor Type: ResidentType: Progress NotesFiled: 02/15/2017 8:25 AMNote Text:General SurgeryProgress notesAdmitted: 02/13/2017OR date: 02/13/2017 Procedure(s) and Anesthesia Type: * LAPAROSCOPIC GASTRIC RESTRICTIVE SURG W/ BYPASS AND CRYSTAL-EN-Y = 40 (morbid obesity) ([facility]) E66.01 (02/12/2017) Morbid obesity ([facility]) (02/13/2017)Hold Lovenox/Toradol, recheck labs, decrease [...] RNF, potential discharge tomorrowPaul MD Ted (PGY 2)[id number] 6PM weekdays and all through weekends: [id number] SNausea and emesis yesterday, improving and PO intake improvingSlept okayDark bloody BMs this AMAmbulating well OTemp (24hrs), Av.7 ?C (98 ?F), Min:36.4 ?C (97.6 ?F), Max:36.9 ?C(98.4 ?F)BP 147/78 Pulse 80 Temp 36.4 ?C (97.6 ?F) (Oral) Resp 16 Ht 154.9cm (5' 1 ) Wt (!) 150.6 kg (332 lb) LMP 01/27/2017 SpO2 99% BMI62.73 kg/a5LWKVYKG: Mild distress as actively nauseated and sitting up with vomitbag, alert and oriented x 3HEENT: NC/AT, EOM's intactRESPIRATORY: Respiratory effort unlaboredCHEST-CVS: HDSABDOMEN: Soft, obese and non distended, non tender, laparoscopic incisionsCDI with glueNEURO: Grossly non-focal02/14 0700 - 02/15 0659In: 3622 [PO:300; IV:3322]Out: 2180 [Urine:1850] Normal [facility] PROGRESS HNO ID: [id number] thor: Renée MorenoService: General SurgeryAuthor Type: PhysicianType: [...] PO intake improvesStacy Gale Moreno MD Normal [facility] Phosphoruson 02-15-2017 Phosphate 1.9 mg/dL Low 2.5-4.5 [facility] Comment on above: Performed By: #### B MP, MG1, PHOS ####[facility] [place] [phone] Vital Signs Date Time Vital Sign Value Performing Clinician Facility 08-08-2024 11:35-0500 Body height 157.5 cm Francoise Hemmer PA Work Phone: [facility] 08-08-2024 11:35-0500 Body mass index (BMI) [Ratio] 59.08 kg/m2 Francoise Hemmer PA Work Phone: [facility] 08-08-2024 11:35-0500 Body weight 146.51 kg Francoise Hemmer PA Work Phone: [facility] 08-08-2024 11:35-0500 Diastolic blood pressure 88 mm[Hg] Francoise Hemmer PA Work Phone: [facility] 08-08-2024 11:35-0500 Heart rate 94 /min Francoise Hemmer PA Work Phone: [facility] 08-08-2024 11:35-0500 SaO2% (BldA) [Mass fraction] 98 % Francoise Hemmer PA Work Phone: [facility] 08-08-2024 11:35-0500 Systolic blood pressure 128 mm[Hg] Francoise Hemmer PA Work Phone: [facility] 07-17-2024 11:35-0500 Body mass index (BMI) [Ratio] 59.26 kg/m2 Francoise Hemmer PA Work Phone: [facility] 07-17-2024 11:35-0500 Body weight 146.97 kg Francoise Willsonmer PA Work Phone: [facility] 07-17-2024 11:35-0500 Diastolic blood pressure 90 mm[Hg] Francoise Hemmer PA Work Phone: [facility] 07-17-2024 11:35-0500 Heart rate 86 /min Francoise Hemmer PA Work Phone: [facility] 07-17-2024 11:35-0500 Respiratory rate 18 /min Francoise Hemmer PA Work Phone: [facility] 07-17-2024 11:35-0500 SaO2% (BldA) [Mass fraction] 98 % Francoise Hemmer PA Work Phone: [facility] 07-17-2024 11:35-0500 Systolic blood pressure 130 mm[Hg] Francoise Hemmer PA Work Phone: [facility] 06-26-2024 13:42-0500 Body height 157.5 cm Placido Rodríguez SENIOR ADMINISTRATIVE SUPPORT Work Phone: [facility] 06-26-2024 13:42-0500 Body mass index (BMI) [Ratio] 58.53 kg/m2 Placido Rodríguez SENIOR ADMINISTRATIVE SUPPORT Work Phone: [facility] 06-26-2024 13:42-0500 Body weight 145.15 kg Placido Rodríguez SENIOR ADMINISTRATIVE SUPPORT Work Phone: [facility] 06-26-2024 13:42-0500 Diastolic blood pressure 84 mm[Hg] Placido Rodríguez SENIOR ADMINISTRATIVE SUPPORT Work Phone: [facility] 06-26-2024 13:42-0500 Heart rate 90 /min Placido Rodríguez SENIOR ADMINISTRATIVE SUPPORT Work Phone: [facility] 06-26-2024 13:42-0500 SaO2% (BldA) [Mass fraction] 96 % Placido Rodríguez SENIOR ADMINISTRATIVE SUPPORT Work Phone: [facility] 06-26-2024 13:42-0500 Systolic blood pressure 128 mm[Hg] Placido Rodríguez SENIOR ADMINISTRATIVE SUPPORT Work Phone: [facility] 06-03-2024 13:34-0400 Body height 157.5 cm Coy Ramírez MD Work Phone: [facility] 06-03-2024 13:34-0400 Body mass index (BMI) [Ratio] 59.26 kg/m2 Coy Ramírez MD Work Phone: [facility] 06-03-2024 13:34-0400 Body weight 146.97 kg Coy Ramírez MD Work Phone: [facility] 06-03-2024 13:34-0400 Diastolic blood pressure 78 mm[Hg] Coy Ramírez MD Work Phone: [facility] 06-03-2024 13:34-0400 Heart rate 78 /min Coy Ramírez MD Work Phone: [facility] 06-03-2024 13:34-0400 Respiratory rate 18 /min Coy Ramírez MD Work Phone: [facility] 06-03-2024 13:34-0400 Systolic blood pressure 118 mm[Hg] Coy Ramírez MD Work Phone: [facility] 05-09-2024 11:07-0400 Body height 156.2 cm Francoise Hemmer PA Work Phone: [facility] 05-09-2024 11:07-0400 Body mass index (BMI) [Ratio] 60.79 kg/m2 Francoise Hemmer PA Work Phone: [facility] 05-09-2024 11:07-0400 Body weight 148.33 kg Francoise Hemmer PA Work Phone: [facility] 05-09-2024 11:07-0400 Diastolic blood pressure 74 mm[Hg] Francoise Hemmer PA Work Phone: [facility] 05-09-2024 11:07-0400 Heart rate 63 /min Francoise Hemmer PA Work Phone: [facility] 05-09-2024 11:07-0400 Respiratory rate 16 /min Francoise Hemmer PA Work Phone: [facility] 05-09-2024 11:07-0400 SaO2% (BldA) [Mass fraction] 97 % Francoise MARTINEZ Work Phone: [facility] 05-09-2024 11:07-0400 Systolic blood pressure 112 mm[Hg] Francoise MARTINEZ Work Phone: [facility] 09-19-2023 09:41-0500 Body height 157.48 cm [facility] 09-19-2023 09:41-0500 Body weight 104.32 kg [facility] Encounters Encounter Date Encounter Type Care Provider Facility Start: 08-08-2024 End: 08-08-2024 Office outpatient visit 25 minutes Francoise MARTINEZ Work Phone: [facility] Comment on above: Benign essential hyp ertension (CMS/HCC) (Primary Dx); Insomnia due to other mental disorder; Migraine without aura and without status migrainosus, not intractable (CMS/HCC); Obstructive sleep apnea syndrome; Morning headache; Snoring; Daytime somnolence; Morbid obesity (CMS/HCC) Start: 08-08-2024 End: 08-08-2024 ambulatory FRANCOISE BARNES Not Available Start: 08-01-2024 ambulatory Jamey Minor acility:[facility] Start: 07-25-2024 End: 07-25-2024 Patient encounter procedure [facility] DO [facility] Comment on above: Paresthesias (Primar y Dx) Start: 07-25-2024 End: 07-25-2024 ambulatory ARIE PLASCENCIA Not Available Start: 07-25-2024 End: 07-25-2024 Bamboo flowsheet Arie Plascencia DO [facility] Start: 07-25-2024 End: 07-25-2024 Bamboo flowsheet Arie Plascencia DO Work Phone: [facility] [address] Start: 07-17-2024 End: 07-17-2024 Bamboo flowsheet Francoise MARTINEZ Work Phone: [facility] Start: 07-17-2024 End: 07-17-2024 Bamboo flowsheet Francoise Del Castillo Molly PA Work Phone: [facility] Start: 07-17-2024 End: 07-17-2024 Office outpatient visit 15 minutes Francoise Del Castillo Molly PA Work Phone: [facility] Comment on above: Thrush, oral Start: 07-17-2024 End: 07-17-2024 ambulatory FRANCOISE Del Castillo MOLLY Not Available Start: 07-04-2024 End: 07-04-2024 Refill Francoise Del Castillo Molly PA Work Phone: [facility] Comment on above: Chronic pain of both knees Start: 06-26-2024 End: 06-26-2024 Bamboo flowsheet Placido Rodríguez SENIOR ADMINISTRATIVE SUPPORT Work Phone: [facility] Start: 06-26-2024 End: 06-26-2024 Bamboo flowsheet Placido Rodríguez SENIOR ADMINISTRATIVE SUPPORT Work Phone: [facility] Start: 06-26-2024 End: 06-26-2024 ambulatory PLACIDO RODRÍGUEZ Not Available Start: 06-26-2024 End: 06-26-2024 Office outpatient visit 25 minutes Placido Rodríguez SENIOR ADMINISTRATIVE SUPPORT Work Phone: [facility] Comment on above: Thrush, oral (Primar y Dx); Left-sided epistaxis; Fall in home, initial encounter Start: 06-24-2024 End: 06-24-2024 ambulatory Najma Richardson MD Facility: [facility] Start: 06-10-2024 End: 06-10-2024 ambulatory Najma Richardson MD Facility: [facility] Start: 06-03-2024 End: 06-03-2024 Office outpatient visit 25 minutes Coy Ramírez MD Work Phone: [facility] Comment on above: Hypoglycemia (Primar y Dx); S/P gastric bypass; IFG (impaired fasting glucose); Weight gain; Encounter for dietary consultation; Class 3 severe obesity due to excess calories with serious comorbidity and body mass index (BMI) of 50.0 to 59.9 in adult (CMS/HCC) Start: 06-03-2024 End: 06-03-2024 ambulatory COY RAMÍREZ Not Available Start: 05-31-2024 End: 06-03-2024 Clinisync Result Encounter Generic External Data Provider [facility] External Department Unsolicited Start: 05-31-2024 End: 06-03-2024 Clinisync Result Encounter Generic External Data Provider [facility] External Department Unsolicited Start: 05-27-2024 End: 05-27-2024 ambulatory Najma Richardson MD Facility:[facility] Start: 05-21-2024 End: 05-21-2024 Telephone encounter Francoise MARTINEZ Work Phone: [facility] Start: 05-14-2024 End: 05-14-2024 Telephone encounter Lorri Rincon LPN Work Phone: [facility] Start: 05-09-2024 End: 05-09-2024 Bamboo flowsheet Francoise Barnes PA Work Phone: [facility] Start: 05-09-2024 End: 05-09-2024 Bamboo flowsheet Francoise Barnes PA Work Phone: [facility] Start: 05-09-2024 End: 05-09-2024 Refill Francoise MARTINEZ Work Phone: [facility] Comment on above: Episodic migraine (C MS/HCC) Start: 05-09-2024 End: 05-09-2024 Office outpatient visit 25 minutes Francoise MARTINEZ Work Phone: [facility] Comment on above: Migraine without aur a and without status migrainosus, not intractable (CMS/HCC) (Primary Dx); Insomnia due to other mental disorder; Benign essential hypertension (CMS/HCC); Morbid obesity (CMS/HCC); Neck pain; Episodic migraine (CMS/HCC) Start: 05-09-2024 End: 05-09-2024 ambulatory FRANCOISE BARNES Not Available Start: 05-06-2024 End: 05-06-2024 ambulatory Najma Richardson MD Facility: [facility] Start: 05-01-2024 End: 05-01-2024 Refsrinivasan Barnes PA Work Phone: [facility] Comment on above: Chronic pain of both knees Start: 02-12-2024 End: 02-12-2024 ambulatory Najma Richardson MD Facility: [facility] Start: 01-31-2024 End: 01-31-2024 ambulatory FRANCOISE Abundio HEMMER Not Available Start: 01-23-2024 End: 01-23-2024 ambulatory FRANCOISE Del Castillo HEMMER Not Available Start: 01-04-2024 ambulatory [facility] Start: 12-29-2023 ambulatory [facility] Start: 2023 End: 2023 ambulatory [facility] Start: 12-12-2023 End: 12-12-2023 ambulatory GERMAINE Del Castillo OSMEL Not Available Start: 12-04-2023 End: 12-04-2023 ambulatory Najma Richardson MD Facility: [facility] Start: 11-21-2023 End: 11-21-2023 ambulatory FRANCOISE M HEMMER Not Available Start: 10-31-2023 End: 10-31-2023 ambulatory FRANCOISE Del Castillo HEMMER Not Available Start: 10-23-2023 End: 10-23-2023 ambulatory Najma Richardson MD Facility: [facility] Start: 09-25-2023 Tani Barnes PA Work Phone: [facility] Comment on above: Chronic pain of both knees Start: 09-19-2023 End: 09-19-2023 Patient encounter procedure [facility] [place] Work Phone: Start: 09-19-2023 End: 09-19-2023 ambulatory NON STAFF [facility] Work Phone: Start: 07-17-2023 Registered [facility] Start: 11-07-2022 End: 11-08-[address] FRANCOISE BARNES Facility:[facility] Start: 06-27-2022 End: 06-27-2022 ambulatory SUNSHINE NEWMAN . Facility:[facility] Start: 04-27-2022 End: 10-26-2022 ambulatory FRANCOISE BARNES Facility:[facility] Start: 04-22-[address] FRANCOISE BARNES Facil ity:[facility] Start: 11-05-2021 End: 11-05-2021 Emergency department patient visit Tyler Petersen Facility:[facility] Start: 09-18-2018 Patient encounter procedure Ida Weber Facility:[id number] Start: 05-08-2018 Patient encounter procedure Ida Weber Facility:[id number] Start: 02-13-2018 End: 02-16-2018 Ambulatory FRANCOISE BARNES [facility] Start: 12-19-2017 Patient encounter procedure Ida Weber Facility:[id number] Procedures Date Procedure Procedure Detail Performing Clinician Start: 07-25-2024 End: 07-25-2024 Needle emg ea extremty w/paraspinl area complete Arie Plascencia DO Work Phone: Start: 06-03-2024 Gluc bld gluc mntr dev [...] Office Visit [facility] [address] [place] [id number] Coy Ramírez MD [address] [place] [address] [facility] Start: 08-08-2024 End: 08-08-2024 Patient encounter procedure 08/08/2024 11:30 AM EST Office Visit [facility] [address] [place] [address] Francoise Barnes PA [address] [place] [address] [facility] Start: 07-25-2024 End: 07-25-2024 Patient encounter procedure [facility] [address] [facility] Comment on above: Arrived Start: 07-17-2024 End: 07-17-2024 Patient encounter procedure 07/17/2024 11:30 AM EST Office Visit [facility] [address] [place] [address] Francoise Barnes PA [address] [place] [address] Arrived [facility] Comment on above: Arrived Start: 06-03-2024 End: 06-03-2024 Patient encounter procedure 06/03/2024 1:10 PM EDT Office Visit [facility] [address] [place] [address] Coy Ramírez MD [address] [place] [address] [facility] Start: 05-09-2024 End: 05-09-2024 Patient encounter procedure 05/09/2024 11:00 AM EDT Office Visit [facility] [address] [place] [address] Francoise Barnes PA [address] [place] [address] Arrived [facility] Comment on above: Arrived Start: 05-06-2024 End: 05-06-2024 Patient encounter procedure 05/06/2024 2:00 PM EDT Office Visit [facility] [address] [place] [address] Francoise Barnes PA [address] [place] [address] [facility] Start: 04-21-2024 Influenza vaccination Influenza Vacc ine (#1) [facility] Start: 02-18-2024 Influenza vaccination Influenza Vacc ine (#1) [facility] Comment on above: Postponed from 04/21 (Patient Refused) Start: 02-11-2024 Screening for malignant neoplasm of breast Mammogram [facility] Start: 10-25-2023 End: 10-25-2023 Patient encounter procedure 10/25/2023 1:00 PM EST Office Visit [facility] [address] [place] [address] Francoise Barnes PA [address] [place] [address] [facility] Start: 12-14-2007 Screening for malignant neoplasm of cervix [facility] Start: 1998 Screening for malignant neoplasm of cervix Pap Smear [facility] Start: 1977 Screening for malignant neoplasm of colon [facility] Immunizations Immunization Date Immunization Notes Care Provider [facility] 07-05-2024 influenza, injectabl e, madin andrzej canine kidney, preservative free Francoise MARTINEZ Work Phone: [facility] 05-30-2021 influenza, injectabl e, quadrivalent, preservative free Francoise MARTINEZ Work Phone: [facility] 05-30-2021 influenza virus vacc ine, unspecified formulation Francoise MARTINEZ Work Phone: [facility] 06-12-2020 influenza, injectabl e, quadrivalent, preservative free Francoise MARTINEZ Work Phone: [facility] 12-16-2018 tetanus toxoid, redu brina diphtheria toxoid, and acellular pertussis vaccine, adsorbed Francoise MARTINEZ Work Phone: [facility] Healthcare Payers Date Payer Category Payer Self-pay [id number] 2022 Medicaid [id number] 2022 Medicaid [id number] 2022 Unknown 2018 Unknown [id number] 2018 Unknown [id number] 1977 Unknown [id number] 2.16. 840.1.398609.3.579.2.356 1977 Unknown [id number] 2.16. 840.1.592384.3.579.2.356 1977 Unknown [id number] 2.16. 840.1.379744.3.579.2.356 1977 Unknown [id number] 2.16.8 40.1.937878.3.579.2.727 1977 Unknown [id number] 2.16.8 40.1.292271.3.579.2.727 1977 Unknown [id number] 2.16.84 0.1.653917.3.579.2.593 1977 Unknown [id number] 2.16.84 0.1.679999.3.579.2.593 1977 Unknown [id number] 2.16.84 0.1.684432.3.579.2.593 1977 Unknown [id number] 2.16.8 40.1.736300.3.579.2.1286 1977 Unknown [id number] 2.16.8 40.1.294881.3.579.2.1286 1977 Unknown [id number] 2.16.8 40.1.797511.3.579.2.1286 1977 Unknown [id number] 2.16.8 40.1.192662.3.579.2.6 1977 Unknown [id number] 2.16.8 40.1.902738.3.579.2.1285 1977 Unknown [id number] 2.16.8 40.1.872362.3.579.2.1285 1977 Unknown [id number] 2.16.8 40.1.335164.3.579.2.1285 1977 Unknown [id number] 2.16. 840.1.124432.3.579.2. 1977 Unknown [id number] 2.16. 840.1.665313.3.579.2. 1977 Unknown [id number] 2.16. 840.1.700089.3.579.2. 1977 Unknown [id number] 2.16. 840.1.678108.3.579.2. 1977 Unknown [id number] 2.16. 840.1.633306.3.579.2. 1977 Unknown [id number] 2.16. 840.1.628669.3.579.2. 1977 Unknown [id number] 2.16. 840.1.033811.3.579.2. 1977 Unknown [id number] 2.16.84 0.1.757131.3.579.2.1258 1977 Unknown [id number] 2.16.84 0.1.205120.3.579.2.1258 1977 Unknown [id number] 2.16.84 0.1.202544.3.579.2.1258 1977 Unknown [id number] 2.16.84 0.1.259627.3.579.2.1258 1977 Unknown [id number] 2.16.84 0.1.557174.3.579.2.1258 1977 Unknown [id number] 2.16.84 0.1.429884.3.579.2.9 1977 Unknown [id number] 2.16.84 0.1.286382.3.579.2.1258 1977 Unknown [id number] 2.16.84 0.1.738745.3.579.2.1258 1977 Unknown [id number] 2.16.84 0.1.154833.3.579.2.1258 1977 Unknown [id number] 2.16.84 0.1.850605.3.579.2.1258 1977 Unknown [id number] 2.16.84 0.1.013143.3.579.2.1259 1959 Unknown [id number] Unknown [id number] 2.16.8 40.1.942137.3.579.2.531 Unknown [id number] 2.16.8 40.1.550084.3.579.2.531 Social History Date Type Detail Facility Tobacco smoking stat us [facility] Unknown if ever smoked [facility] Work Phone: Start: 1975 Sex Assigned At Female F [facility] Start: 09-18-2018 End: 01-23-2023 Tobacco smoking status MOIS Never smoked tobacco (finding) [facility] Start: 01-23-2023 Tobacco use and exposure Smokeless tobacco non-user [facility] Start: 07-26-2023 End: 08-08-2024 Alcohol intake Ex-drinker (finding) [facility] Start: 01-24-2023 End: 07-26-2023 History of Social function [facility] Start: 01-24-2023 End: 07-26-2023 Tobacco use panel [facility] Start: 04-26-2023 Alcohol Comment Caffeine intake: sod a [facility] Start: 1975 Sex Assigned At Not on file [facility] Clinical Notes 06-28-2021 to 08-08-2024 MICHELLE Cao - 08/08/2024 11:30 AM NAVNEET Zeng - 07/25/2024 2:30 PM MICHELLE Marlow - 07/17/2024 11:30 AM ESTTelephone Encounter - MICHELLE Cao - 07/04/2024 9:20 AM EST Note Date & Type Note Facility 08-08-2024 History of Presen t illness Narrative Images from the original note were not included. Subjective Patient ID: Marilee Arriaga is a 48 y.o. female who presents for Migraine and Insomnia. Marilee is present today for follow up insomnia. She is currently on Zolpidem as needed and is working well for her. Pt states she had a migraine the other day she had to take two of the nurtec and also tylenol, it eventually went away. Currently having 4-5 migraines a month. Getting more difficult to treat when they occur. Wakes up with headaches frequently. Pt does snore, occasionally wakes herself up. Has had to be on a CPAP before. Quit using it because it dried her mouth out too badly. State her legs feel like bricks lately. Current Outpatient Medications on File Prior to [...] the morning. cholecalciferol (Vitamin D-3) 250 MCG (46306 UT) capsule TAKE 1 CAPSULE BY MOUTH ONCE A DAY AT THE SAME TIME. 100 capsule 3 Continuous Blood Gluc Leadership Development Instructor (FreeStyle Samreen 2 Brandon) device USE DIRECTED Continuous Blood Gluc Sensor (FreeStyle Samreen 2 Sensor) misc Use as directed diclofenac sodium 1 % gel APPLY 2 GM TO AFFECTED AREA IN THE MORNING,IN THE EVENING,AND BEFORE BEDTIME 100 g 3 escitalopram (Lexapro) 10 MG tablet Take 20 mg by mouth Daily hydrOXYzine pamoate (Vistaril) 50 MG capsule Take 50 mg by mouth in the morning and 50 mg before bedtime. lamoTRIgine (LaMICtal) 150 MG tablet Take 3 tablets by mouth 1 (one) time each day at the same time. methocarbamol (Robaxin) 750 MG tablet Take 750 mg by mouth Daily as needed metoprolol succinate XL (Toprol-XL) 25 MG 24 hr tablet TAKE 1 TABLET BY MOUTH DAILY, DO NOT CRUSH OR CHEW 100 tablet 3 Nurtec 75 MG tablet dispersible TAKE 1 TABLET BY MOUTH EVERY DAY NEEDED FOR MIGRAINES 8 tablet 5 nystatin (Mycostatin) 080188 UNIT/GM powder Apply 1 application topically Daily [...] severe pain 60 tablet 0 traZODone (Desyrel) 150 MG tablet Take 300 mg by mouth at bedtime venlafaxine XR (Effexor XR) 150 MG 24 hr capsule Take 2 capsules by mouth 1 (one) time each day at the same time. Take with food zolpidem (Ambien) 5 MG tablet Take 1 tablet (5 mg) by mouth as needed at bedtime for sleep [DISCONTINUED] nystatin (Mycostatin) 601529 UNIT/ML suspension Take 4 mL (400,000 Units) by mouth in the morning and 4 mL (400,000 Units) at noon and 4 mL (400,000 Units) in the evening and 4 mL (400,000 Units) before bedtime. Do all this for 14 days. 224 mL 0 No current facility-administered medications on file prior [...] 08/2004 OTHER SURGICAL HISTORY 08/1977 pyloric stenosis CO ARTHROSCOPY KNEE DIAGNOSTIC W/WO SYNOVIAL BX SPX 04/1998 RADIOFREQUENCY ABLATION Bilateral 06/05/2023 L3-L5 RADIOFREQUENCY ABLATION Bilateral 02/12/2024 L3-L5 SACROILIAC JOINT INJECTION Bilateral 05/27/2024 SACROILIAC JOINT INJECTION Left 06/24/2024 TONSILLECTOMY 08/1995 Visit Vitals BP 128/88 Pulse 94 Ht 5' 2 Wt 323 lb SpO2 98% BMI 59.08 kg/m Smoking Status Never BSA 2.54 m Review of Systems Constitutional: Positive for fatigue. Negative for chills and fever. Respiratory: Negative for cough, shortness of breath and wheezing. Cardiovascular: Negative for chest pain, palpitations and leg swelling. Gastrointestinal: Negative for abdominal pain, constipation, diarrhea, nausea and vomiting. Skin: Negative for rash. Neurological: Positive for headaches. Psychiatric/Behavioral: Positive for sleep disturbance. Objective Physical Exam Constitutional: General: She is not in acute distress. Appearance: She is well-developed. She is obese. HENT: Head: Normocephalic and atraumatic. Eyes: General: No scleral icterus. Conjunctiva/sclera: Conjunctivae normal. Cardiovascular: Rate and Rhythm: Normal rate and regular rhythm. Heart sounds: Normal heart sounds. No murmur heard. Pulmonary: Effort: Pulmonary effort is normal. No respiratory distress. Breath sounds: Normal breath sounds. No wheezing, rhonchi or rales. Skin: General: Skin is warm and dry. Neurological: General: No focal deficit present. Mental Status: She is alert and oriented to person, place, and time. Psychiatric: Mood and Affect: Mood normal. Behavior: Behavior normal. Assessment/Plan Diagnoses and all orders for this visit: Benign essential hypertension (CMS/HCC) Patient's blood pressure is currently well controlled. Continue with current medications and I will continue to monitor. Insomnia due to other mental disorder Ambien helpful for patient. She can continue it as needed for sleep. Migraine without aura and without status migrainosus, not intractable (CMS/HCC) - fremanezumab (Ajovy) 225 MG/1.5ML auto-injector; Inject 1 pen (225 mg) under the skin every 30 (thirty) days Has been on Metoprolol, Maxalt, Imitrex, Tizanidine, Robaxin, Tramadol, Venlafaxine and Nurtec without adequate control of her migraines. Sent in Ajovy for patient due to migraines uncontrolled. Obstructive sleep apnea syndrome Advised of potential complications of uncontrolled YESENIA, including but not limited to fatigue, headaches, elevated blood pressure, weight gain, and even . She agrees to Sleep Medicine consult to discuss options that are available for testing and treatment. Had hard time tolerating CPAP in the past. Morning headache Can sleep in a recliner or use a wedge pillow to help keep head elevated at night. This may help alleviate some symptoms over time. Snoring See above. Daytime somnolence See above. Morbid obesity Encouraged portion control, decrease simple sugars and carbohydrates, gradually increase activity level. Aim for gradual steady weight loss. Follow up in about 3 months (around 11/06/2024) for Wellness, Medication Follow Up. documented in this encounter [facility] 07-25-2024 History of Presen t illness Narrative Images from the original note were not included. Reason for Appointment: EMG Patient: Marilee Arriaga : 1975 EMG Computer: [employer] Referring Physician: Simona Szymanski NP EMG: BLE statistical programmer analyst: Larry Mallory RT(R) Office Location: [place] Reason for EMG: c/o numbness/tingling in left foot/leg, cramping in left leg, low back pain that radiates down left leg. Hx of surgery to right knee. No hx of DM. Not on blood thinners. Comments: Procedure was explained to the patient & female laminating press operator who expressed understanding. Patient appeared to have tolerated the test well despite some discomfort due to the nature of the test. documented in this encounter [facility] 07-17-2024 History of Presen t illness Narrative Images from the original note were not included. Subjective Patient ID: Marilee Arriaga is a 48 y.o. female who presents for possible thrush again. Marilee is in today again for consistent problems with oral thrush, she was put on nystatin and felt it was helping, but it wasn't completely gone. As soon as the 2 weeks was done with it and she stopped taking it, it came back. States her throat isnt sore just the bumps she has at the back of her throat are still bothering her. Symptoms started after recent antibiotic use. Current Outpatient Medications on File Prior to [...] the morning. cholecalciferol (Vitamin D-3) 250 MCG (35177 UT) capsule TAKE 1 CAPSULE BY MOUTH ONCE A DAY AT THE SAME TIME. 100 capsule 3 Continuous Blood Gluc Leadership Development Instructor (FreeStyle Samreen 2 Brandon) device USE DIRECTED Continuous Blood Gluc Sensor (FreeStyle Samreen 2 Sensor) misc Use as directed diclofenac sodium 1 % gel APPLY 2 GM TO AFFECTED AREA IN THE MORNING,IN THE EVENING,AND BEFORE BEDTIME 100 g 3 escitalopram (Lexapro) 10 MG tablet Take 20 mg by mouth Daily hydrOXYzine pamoate (Vistaril) 50 MG capsule Take 50 mg by mouth in the morning and 50 mg before bedtime. lamoTRIgine (LaMICtal) 150 MG tablet Take 3 tablets by mouth 1 (one) time each day at the same time. methocarbamol (Robaxin) 750 MG tablet Take 750 mg by mouth Daily as needed metoprolol succinate XL (Toprol-XL) 25 MG 24 hr tablet TAKE 1 TABLET BY MOUTH DAILY, DO NOT CRUSH OR CHEW 100 tablet 3 Nurtec 75 MG tablet dispersible TAKE 1 TABLET BY MOUTH EVERY DAY NEEDED FOR MIGRAINES 8 tablet 5 nystatin (Mycostatin) 751293 UNIT/GM powder Apply 1 application topically Daily [...] severe pain 60 tablet 0 traZODone (Desyrel) 150 MG tablet Take 300 mg by mouth at bedtime venlafaxine XR (Effexor XR) 150 MG 24 hr capsule Take 2 capsules by mouth 1 (one) time each day at the same time. Take with food zolpidem (Ambien) 5 MG tablet Take 1 tablet (5 mg) by mouth as needed at bedtime for sleep [DISCONTINUED] escitalopram (Lexapro) 5 MG tablet Take 10 mg by mouth Daily Take 15 mg daily [DISCONTINUED] nystatin (Mycostatin) 215267 UNIT/ML suspension Take 4 mL (400,000 Units) by mouth in the morning and 4 mL (400,000 Units) at noon and 4 mL (400,000 Units) in the evening and 4 mL (400,000 Units) before bedtime. Do all this for 14 days. 224 mL 0 No current facility-administered medications on file prior [...] 08/2004 OTHER SURGICAL HISTORY 08/1977 pyloric stenosis CO ARTHROSCOPY KNEE DIAGNOSTIC W/WO SYNOVIAL BX SPX 04/1998 RADIOFREQUENCY ABLATION Bilateral 06/05/2023 L3-L5 RADIOFREQUENCY ABLATION Bilateral 02/12/2024 L3-L5 SACROILIAC JOINT INJECTION Bilateral 05/27/2024 SACROILIAC JOINT INJECTION Left 06/24/2024 TONSILLECTOMY 08/1995 Visit Vitals BP 130/90 Pulse 86 Resp 18 Wt 324 lb SpO2 98% BMI 59.26 kg/m Smoking Status Never BSA 2.54 m Review of Systems Constitutional: Negative for chills, fatigue and fever. HENT: Negative for sore throat. See HPI Respiratory: Negative for cough, shortness of breath and wheezing. Cardiovascular: Negative for chest pain, palpitations and leg swelling. Gastrointestinal: Negative for abdominal pain, constipation, diarrhea, nausea and vomiting. Skin: Negative for rash. Objective Physical Exam Constitutional: General: She is not in acute distress. Appearance: She is well-developed. She is obese. HENT: Head: Normocephalic and atraumatic. Mouth/Throat: Pharynx: No posterior oropharyngeal erythema. Comments: Mild remaining geographic patches of yellowish white coating on tongue, back of tongue with mild cobblestone appearance. Eyes: General: No scleral icterus. Conjunctiva/sclera: Conjunctivae normal. Cardiovascular: Rate and Rhythm: Normal rate and regular rhythm. Heart sounds: Normal heart sounds. No murmur heard. Pulmonary: Effort: Pulmonary effort is normal. No respiratory distress. Breath sounds: Normal breath sounds. No wheezing, rhonchi or rales. Skin: General: Skin is warm and dry. Neurological: General: No focal deficit present. Mental Status: She is alert and oriented to person, place, and time. Psychiatric: Mood and Affect: Mood normal. Behavior: Behavior normal. Assessment/Plan Diagnoses and all orders for this visit: Thrush, oral - nystatin (Mycostatin) 877788 UNIT/ML suspension; Take 4 mL (400,000 Units) by mouth in the morning and 4 mL (400,000 Units) at noon and 4 mL (400,000 Units) in the evening and 4 mL (400,000 Units) before bedtime. Do all this for 14 days. - fluconazole (Diflucan) 100 MG tablet; Take 1 tablet (100 mg) by mouth Daily for 7 doses Due to persistent nature of pt's symptoms, will add Fluconazole once a day x 1 week. Continue Nystatin oral rinse as prescribed for at least the next week, and up to a full two weeks if symptoms have not completely resolved in a week. Contact office with any concerns. Follow up for Appointment As Scheduled. documented in this encounter [facility] 07-04-2024 Telephone encounter Note OARRS reviewed, Rx sent into patient's pharmacy. [facility] 07-04-2024 Miscellaneous Notes OARRS reviewed, Rx sent into patient's pharmacy. documented in this encounter [facility] 06-26-2024 History of Presen t illness Narrative [...] the morning. cholecalciferol (Vitamin D-3) 250 MCG (46357 UT) capsule TAKE 1 CAPSULE BY MOUTH ONCE A DAY AT THE SAME TIME. 100 capsule 3 Continuous Blood Gluc Leadership Development Instructor (FreeStyle Samreen 2 Brandon) device USE DIRECTED Continuous Blood Gluc Sensor [...] FOR MIGRAINES 8 tablet 5 nystatin (Mycostatin) 321227 UNIT/GM powder Apply 1 application topically Daily [...] 08/2004 OTHER SURGICAL HISTORY 08/1977 pyloric stenosis CO ARTHROSCOPY KNEE DIAGNOSTIC W/WO SYNOVIAL BX SPX [...] BORIS Horton NP documented in this encounter [facility] 06-26-2024 Instructions Placido Rodríguez NP - 06/26/2024 1:30 PM EST Nystatin swish and spit as directed Saline nasal spray documented in this encounter [facility] 06-03-2024 History of Presen t illness [...] for hypoglycemia after gastric bypass surgery done 2017. Maximum weight 450 pounds, lowest 203, currently 350. She has blood sugars variable, with up to 250 and do SUBJECTIVE: MEDICATIONS: Current Outpatient Medications Medication Instructions Simalify Maintena 400 mg acarbose (PRECOSE) 25 mg, Oral, 3 times daily albuterol HFA 90 mcg/act inhaler INHALE 1 PUFF BY MOUTH EVERY 4 HOURS NEEDED busPIRone (BUSPAR) 30 mg, Every 12 hours Caplyta 42 MG capsule 1 capsule, Daily cholecalciferol (Vitamin D-3) 250 MCG (57876 UT) capsule TAKE 1 CAPSULE BY MOUTH ONCE A DAY AT THE SAME TIME. Continuous Blood Gluc Leadership Development Instructor (FreeStyle Samreen 2 Brandon) device USE DIRECTED Continuous Blood Gluc Sensor [...] EVERY DAY NEEDED FOR MIGRAINES nystatin (Mycostatin) 394724 UNIT/GM powder 1 application , Topical, Daily, [...] deficiency anemia Leukocytosis Dr. Weber Morbid obesity ([facility]) Osteoarthritis Polycystic bilateral ovaries Thrombocytosis Dr. Weber Vitamin D deficiency Past Surgical History: Procedure Laterality Date COLONOSCOPY 08/2013 ENDOMETRIAL BIOPSY 07/09/2019 GASTRIC BYPASS 02/13/2017 IR INJECTION EPIDURAL STEROID Left 10/23/2023 L3-L5 KNEE SURGERY 08/2004 OTHER SURGICAL HISTORY 08/1977 pyloric stenosis CO ARTHROSCOPY KNEE DIAGNOSTIC W/WO SYNOVIAL BX SPX [...] (BMI) of 50.0 to 59.9 in adult ([facility]) Follow up in about 6 months (around 12/02/2024). documented in this encounter [facility] 05-21-2024 Telephone encounter Note Called and spoke with Enma, who connected me with pharmacistNena. She states there are no claims billed for Imitrex during the time period in 2022 originally given for pt. Needs dates the Imitrex was filled and the pharmacy where it was filled so it can be verified that she took the medication. Filled 12/11/2017, 04/07/2018, 04/07/2020 at [facility] in [place]. Called back and spoke with Sj, who connected me with pharmacistNena. They will look into this and verify the claims and fax new determination to the office. [facility] 05-21-2024 Miscellaneous Notes Called and spoke with Enma, who connected me with pharmacistNena. She states there are no claims billed for Imitrex during the time period in 2022 originally given for pt. Needs dates the Imitrex was filled and the pharmacy where it was filled so it can be verified that she took the medication. Filled 12/11/2017, 04/07/2018, 04/07/2020 at [facility] in [place]. Called back and spoke with Sj, who connected me with pharmacistNena. They will look into this and verify the claims and fax new determination to the office. documented in this encounter [facility] 05-14-2024 Telephone encounter Note Called and did appeal for Nurtec. Advised took Maxalt 10 mg 01/31/2024 through 05/09/2024, Imitrex 01/23/2023 through 07/26/2023. Claim will be resubmitted. [facility] 05-14-2024 Miscellaneous Notes Called and did appeal for Nurtec. Advised took Maxalt 10 mg 01/31/2024 through 05/09/2024, Imitrex 01/23/2023 through 07/26/2023. Claim will be resubmitted. Nurtec DENIED. Can do appeal by calling [phone]. documented in this encounter [facility] 05-14-2024 Telephone encounter Note Nurtec DENIED. Can do appeal by calling [phone]. [facility] 05-09-2024 Telephone encounter Note Josué urrutiaent. [facility] 05-09-2024 Miscellaneous Notes Josué resent. documented in this encounter [facility] 05-09-2024 History of Presen t illness Narrative Images from the original note were not included. HPI Migraine Additional comments: She tried the maxalt and she felt like she was having a panic attack so would like to discuss other options for her migraines. Last edited by Lorri Rincon LPN on 05/09/2024 11:07 AM. Subjective Patient ID: Marilee Arriaga is a 48 y.o. female who presents for insomnia. Marilee is present today for follow up insomnia. She is currently on Zolpidem as needed and is working well for her. Current Outpatient Medications on File Prior to Visit Medication Sig Dispense Refill escitalopram (Lexapro) 5 MG tablet Take 5 mg by mouth Daily acarbose (Precose) 25 MG tablet Take 1 tablet by mouth in the morning and 1 tablet at noon and 1 tablet in the evening. Take with meals. albuterol HFA 90 mcg/act inhaler INHALE 1 [...] the morning. cholecalciferol (Vitamin D-3) 250 MCG (89805 UT) capsule TAKE 1 CAPSULE BY MOUTH ONCE A DAY AT THE SAME TIME. 100 capsule 3 Continuous Blood Gluc Leadership Development Instructor (FreeStyle Samreen 2 Brandon) device USE DIRECTED Continuous Blood Gluc Sensor (FreeStyle Samreen 2 Sensor) misc Use as directed diclofenac sodium (Voltaren) 1 % gel Apply 2 g topically in the morning and 2 g in the evening and 2 g before bedtime. 150 g 3 hydrOXYzine pamoate (Vistaril) 25 MG capsule TAKE 1 CAPSULE BY MOUTH TWICE A DAY NEEDED FOR ANXIETY lamoTRIgine (LaMICtal) 150 MG tablet Take 3 tablets by mouth 1 (one) time each day at the same time. metoprolol succinate XL (Toprol-XL) 25 MG 24 hr tablet TAKE 1 TABLET BY MOUTH DAILY, DO NOT CRUSH OR CHEW 100 tablet 3 nystatin (Mycostatin) 387340 UNIT/GM powder Apply 1 application topically Daily [...] mouth as needed at bedtime for sleep [DISCONTINUED] nystatin (Mycostatin) 081978 UNIT/GM powder Apply 1 application topically in the morning. PRN. [DISCONTINUED] pantoprazole (ProtoNix) 40 MG EC tablet Take 40 mg by mouth in the morning and 40 mg before bedtime. [DISCONTINUED] rizatriptan (Maxalt) 10 MG tablet Take 1 tablet (10 mg) by mouth 1 (one) time if needed for migraine May repeat in 2 hours if unresolved. Do not exceed 30 mg in 24 hours. 6 tablet 0 No current facility-administered medications on file prior to visit. I have reviewed and reconciled the history and medication list with the patient today. Allergies Allergen Reactions Bacitracin-Polymyxin B Codeine Erythromycin Hives Penicillin G Soap Swelling lip swelling to some deodorants [...] Diagnosis Date Arthritis Auditory hallucinations Depression (CMS/HCC) Depression (CMS/HCC) Fracture 10/2021 Left 5th MT Headache Hx of echocardiogram 11/07/2022 ECHO EF 60% Hypertension (CMS/HCC) Impaired fasting glucose Iron deficiency anemia Leukocytosis Dr. Weber Morbid obesity (CMS/HCC) Osteoarthritis Polycystic bilateral ovaries Thrombocytosis Dr. Weber Vitamin D deficiency Past Surgical History: Procedure Laterality Date COLONOSCOPY 08/2013 ENDOMETRIAL BIOPSY 07/09/2019 GASTRIC BYPASS 02/13/2017 IR INJECTION EPIDURAL STEROID Left 10/23/2023 L3-L5 KNEE SURGERY 08/2004 OTHER SURGICAL HISTORY 08/1977 pyloric stenosis CO ARTHROSCOPY KNEE DIAGNOSTIC W/WO SYNOVIAL BX SPX 04/1998 RADIOFREQUENCY ABLATION Bilateral 06/05/2023 L3-L5 RADIOFREQUENCY ABLATION Bilateral 02/12/2024 L3-L5 TONSILLECTOMY 08/1995 Visit Vitals BP 112/74 Pulse 63 Resp 16 Ht 5' 1.5 Wt 327 lb SpO2 97% BMI 60.79 kg/m Smoking Status Never BSA 2.53 m Review of Systems Constitutional: Negative for chills, fatigue and fever. Respiratory: Negative for cough, shortness of breath and wheezing. Cardiovascular: Negative for chest pain, palpitations and leg swelling. Gastrointestinal: Negative for abdominal pain, constipation, diarrhea, nausea and vomiting. Skin: Negative for rash. Neurological: Positive for headaches. Objective Physical Exam Constitutional: General: She is not in acute distress. Appearance: She is well-developed. She is obese. HENT: Head: Normocephalic and atraumatic. Eyes: General: No scleral icterus. Conjunctiva/sclera: Conjunctivae normal. Cardiovascular: Rate and Rhythm: Normal rate and regular rhythm. Heart sounds: Normal heart sounds. No murmur heard. Pulmonary: Effort: Pulmonary effort is normal. No respiratory distress. Breath sounds: Normal breath sounds. No wheezing, rhonchi or rales. Skin: General: Skin is warm and dry. Neurological: General: No focal deficit present. Mental Status: She is alert and oriented to person, place, and time. Psychiatric: Mood and Affect: Mood normal. Behavior: Behavior normal. Assessment/Plan Diagnoses and all orders for this visit: Migraine without aura and without status migrainosus, not intractable (CMS/HCC) Patient has tried Imitrex which was ineffective. Maxalt caused panic attacks. Ubrelvy did not provide adequate relief of symptoms. Nurtec was effective for patient without side effects. Insomnia due to other mental disorder Medication choice and dosage is appropriate for patient's current medical conditions. Patient will continue to be required to be seen in our office at least every three months for monitoring. At each follow up visit I will reassess the patient's need for the medication. Patient is to have this medication prescribed only through this office. Failure to follow the rules and regulations will result in tapering and discontinuation of medications if applicable. Patient verbalized understanding. OARRS Report was reviewed for this patient. Benign essential hypertension (CMS/HCC) Patient's blood pressure is currently well controlled. Continue with current medications and I will continue to monitor. Goal BP remains less than 130/80. Morbid obesity (CMS/HCC) Pt has lost 5 pounds since her last appt. Encouraged her to continue to take her dog on walks and stay active. Aim for continued gradual weight loss. Neck pain Tizanidine without relief. She can try Chiropractor. If no improvement over next 1-2 weeks she can contact the office and I will send in an order for her to have X-rays completed. Episodic migraine (CMS/HCC) - Rimegepant Sulfate (Nurtec) 75 MG tablet dispersible; Take 75 mg by mouth every other day As needed for migraines Will send in a prescription for Nurtec at this time for pt. Follow up in about 3 months (around 08/08/2024) for Medication Follow Up. documented in this encounter [facility] 05-01-2024 Telephone encounter Note OARRS reviewed, Rx sent into patient's pharmacy. [facility] 05-01-2024 Miscellaneous Notes OARRS reviewed, Rx sent into patient's pharmacy. documented in this encounter [facility] 09-25-2023 Telephone encounter Note OARRS reviewed, Rx sent into patient's pharmacy. [facility] 09-25-2023 Miscellaneous Notes OARRS reviewed, Rx sent into patient's pharmacy. documented in this encounter [facility] 06-27-2022 Note PROCEDURE: XR FOOT L [...] authenticated by: EM LÓPEZ Date: 2022-06-27 15:38 [facility] 06-28-2021 Note HNO ID: [id number] Author: Em Fernandez, PhD Service: ? Author Type: Psychologist Type: Progress Notes Filed: 06/28/2021 2:45 PM Note Text: Received mental health records from [facility]. Note from 05/06/21 revealed pt [...] medical records for scanning. Em Fernandez, psychologist [facility] Evaluation note No assessment inform ation available [facility] Work Phone: Evaluation note Diagnosis Chronic [...] adult (CMS/HCC) [facility] Diagnosis Thrush, oral- Primary Left-sided epistaxis Fall in home, initial encounter [facility] Diagnosis Chronic pain of both knees [facility] Diagnosis Thrush, oral [facility]* Diagnosis Paresthesias- Primary Disturbance of skin sensation [facility]* Diagnosis Chronic pain of both knees [facility]* Diagnosis Migraine without aura and without status migrainosus, not intractable (CMS/HCC)- Primary Insomnia due to other mental disorder Benign essential hypertension (CMS/HCC) Essential hypertension, benign Morbid obesity (CMS/HCC) Morbid obesity Neck pain Cervicalgia Episodic migraine (CMS/HCC) [facility] Diagnosis Episodic migraine (CMS/HCC) [facility] Diagnosis Benign essential hypertension (CMS/HCC)- Primary Essential hypertension, benign Insomnia due to other mental disorder Migraine without aura and without status migrainosus, not intractable (CMS/HCC) Obstructive sleep apnea syndrome Obstructive sleep apnea (adult) (pediatric) Morning headache Snoring Other dyspnea and respiratory abnormality Daytime somnolence Morbid obesity (CMS/HCC) Morbid obesity [facility] Other Medical (Routine) - Closed Specialty Diagnoses / Procedures Referred By Contac t Referred To Contact Neurology Diagnoses Low back pain, unspecified Procedures CO NERVE CONDUCTION STUDIES 9-10 STUDIES CO NEEDLE EMG EA EXTREMTY W/PARASPINL AREA COMPLETE Simona Szymanski, [address] [place] [address] Phone: tel: fax: Arie Plascencia DO [address] [facility] [address] [place] [id number] Phone: tel: fax: Referral ID Status Reason Start Date Expiration Date V isits Requested Visits Authorized [id number] Closed Perform Procedure 07/04/2024 12/31/2024 1 1 [facility] Healthcare Summary Purpose Family History [...] for Visit Chief Complaint BH Lumbar Radiculopathy Reason for Referral Specialty Diagnoses / Procedures Referred By Contac t Referred To Contact Diagnoses Episodic migraine ([facility]) Francoise Barnes PA [address] [facility] [address] [phone] Referral ID Status Reason Start Date Expiration Date Visits Re quested Visits Authorized [id number] Closed 1 1 Referral ID Status Reason Start Date Expiration Date V isits Requested Visits Authorized [id number] Pending Review 1 1 Additional Source Comments INFORMATION SOURCE (unrecogn ized section and content) DATE CREATED AUTHOR 02/14/2018 [facility] DATE CREATED AUTHOR AUTHOR'S ORGANIZ ATION 02/16/2018 [facility] DATE CREATED AUTHOR AUTHOR'S ORGANIZ ATION 10/09/2018 [facility] DATE CREATED AUTHOR AUTHOR'S ORGANIZ ATION 10/11/2021 [facility] DATE CREATED AUTHOR AUTHOR'S ORGANIZ ATION 10/28/2022 Erik Colvin [facility] DATE CREATED AUTHOR AUTHOR'S ORGANIZ ATION 11/13/2022 [facility] DATE CREATED AUTHOR AUTHOR'S ORGANIZ ATION 01/09/2024 [facility] DATE CREATED AUTHOR AUTHOR'S ORGANIZ ATION 06/29/2024 [facility] DATE CREATED AUTHOR AUTHOR'S ORGANIZ ATION 08/07/2024 [facility] DATE CREATED AUTHOR AUTHOR'S ORGANIZ ATION 08/11/2024 [facility] EPIC Goals (unrecognized section and [...] September 19, 2023 End: September 19, 2023 [employer] Equipment Salesperson Relationship Specialty Start Date End Date Shalini Coffey MD [address] [address] PCP - General Family Medicine 08/05/23 [employer] Salesperson Relationship Specialty Start Date End Date Shalini Coffey MD 112 [facility] [address] [place] [address] PCP - General Family Medicine 08/05/23 [employer] Equipment Salesperson Relationship Specialty Start Date End Date Shalini Coffey MD [address] [facility] [address] [place] [address] PCP - General Family Medicine 08/05/23 [employer] Equipment Salesperson Relationship Specialty Start Date End Date Shalini Coffey MD [address] [place] [address] [place] [address] PCP - General Family Medicine 08/05/23 [employer] Equipment Salesperson Relationship Specialty Start Date End Date Shalini Coffey MD [address] [place] [address] [place] [address] PCP - General Family Medicine 08/05/23 Agricultural Equipment Salesperson Relationship Specialty Start Date End Date Shalini Coffey MD [address] [place] [address] [place] [address] PCP - General Family Medicine 08/05/23 Agricultural Equipment Salesperson Relationship Specialty Start Date End Date Shalini Coffey MD [address] [facility] [address] [place] [address] PCP - General Family Medicine 08/05/23 Agricultural Equipment Salesperson Relationship Specialty Start Date End Date Shalini Coffey MD [address] [place] [address] [place] [address] PCP - General Family Medicine 08/05/23 Agricultural Equipment Salesperson Relationship Specialty Start Date End Date Shalini Coffey MD [address] [place] [address] [place] [address] PCP - General Family Medicine 08/05/23 Agricultural Equipment Salesperson Relationship Specialty Start Date End Date Shalini Coffey MD [address] [place] [address] [place] [address] PCP - General Family Medicine 08/05/23 [employer] Equipment Salesperson Relationship Specialty Start Date End Date Shalini Coffey MD [address] [place] [address] [place] [address] PCP - General Family Medicine 08/05/23 Agricultural Equipment Salesperson Relationship Specialty Start Date End Date Shalini Coffey MD 112 [facility] [address] [place] [address] PCP - General Family Medicine 08/05/23 Reason for Visit (unrecogniz ed section and content) Reason Comments Med Refill Reason Comments Diabetes Follow-up Reason Comments Epistaxis (Nose Bleed) Reason Onset Date Comments Med Refill 05/01/2024 Reason Comments Migraine She tried the maxalt and she felt like she was having a panic attack so would like to discuss other options for her migraines. Reason Comments Med Change Request Reason Comments Migraine Insomnia FOR RECORDS PERTAINING TO PATIENTS WHO ARE [...] BE BASED ON THE PRIMARY CLINICAL RECORDS. [employer] provides no warranty or guarantee of the accuracy or completeness of information in this document.
[2024-08-17] MEDS: ACETAMINOPHEN 325 MG TABLET 650 MG PO (21:05)
== END 2024-08-17 21:05 | disposition home or self-care (01) ==
PROVIDERS: Emergency Provider Emergency Medicine; PCP Physician Assistant
DX: S70.02XA Contusion of left hip, initial encounter (principal); W18.39XA Other fall on same level, initial encounter; Z98.84 Bariatric surgery status; M25.572 Pain in left ankle and joints of left foot; M79.672 Pain in left foot
CPT/HCPCS: 73502; 73610; 73630; 99283

== ENCOUNTER 2024-09-04 14:16 | Outpatient (OUT) | payer MEDICAID, SELFPAY ==
--- NOTE | 2024-09-04 14:53 | P.CN_ITS ---
Consult Note: HPI Data of Consult Patient: known to practice within the last 3 years Requesting Physician: Simona Szymanski NP Primary Care Provider: SHWETA BARNES Consult Narrative Reason for consult: low back pain Narrative: 48yof who presents for assessment. has continued in a series of provider directed home exercises >6 weeks, without lasting benefit. utilizes robaxin 750mg daily PRN with benefit without side effects. continues with other pain meds as needed. recent left sciatic nerve block providing >50% improvement. pt continues to have moderate to severe low back pain. DENEEN remains around 56%. since last visit pt underwent EMG which is consistent with polyneuropathy. cc:: CC: Simona Szymanksi NP Review of Systems ROS Status of ROS 10 or more systems reviewed and unremark able except as noted in history and below Musculoskeletal Reports: back pain and extremity pain PFSH PFSH Medical History Surgical History S/P endometrial ablation ?Z98.890 - Other specified postprocedural states (ICD-10) S/P right knee arthroscopy ?Z98.890 - Other specified postprocedural states (ICD-10) H/O gastric bypass ?Z98.84 - Bariatric surgery status (ICD-10) S/P tonsillectomy ?Z90.89 - Acquired absence of other organs (ICD-10) Social History Smoking status: Never smoker Little interest or pleasure in doing things: not at all Feeling down, depressed, or hopeless: not at all Meds Home Medications and Allergies Home Medications ?Medication ?Instructions ?Recorded ?Confirmed ?Type acetaminophen 650 mg 650 mg PO Q12H PRN pain 02/13/23 06/24/24 History tablet,extended release (Tylenol Arthritis Pain) aripiprazole 400 mg suspension, 400 mg IM Q28D 02/13/23 06/24/24 History extended rel.intramuscular syringe (Wes Maink[facility]) buspirone 30 mg tablet 30 mg PO TID 02/13/23 06/24/24 History lumateperone 10.5 mg capsule 42 mg PO DAILY 02/13/23 06/24/24 History (Caplyta) tramadol 50 mg tablet 50 mg PO BID PRN pain 02/13/23 06/24/24 History trazodone 300 mg tablet 300 mg PO DAILY PRN sleep 02/13/23 06/24/24 History venlafaxine 100 mg tablet 300 mg PO DAILY 02/13/23 06/24/24 History zolpidem 5 mg tablet (Ambien) 5 mg PO BEDTIME PRN sleep 02/13/23 06/24/24 History tizanidine 4 mg tablet 4 mg PO BEDTIME 04/18/23 06/24/24 History acarbose 25 mg tablet 25 mg PO DAILY 08/01/23 06/24/24 History cholecalciferol (vitamin D3) 250 10,000 unit PO DAILY 08/01/23 06/24/24 History mcg (10,000 unit) capsule hydroxyzine pamoate 25 mg capsule 50 mg PO BID 08/01/23 06/24/24 History lamotrigine 150 mg tablet 300 mg PO DAILY 12/03/23 06/24/24 History metoprolol succinate 25 mg 25 mg PO DAILY 04/04/24 06/24/24 History tablet,extended release 24 hr escitalopram oxalate 10 mg tablet 10 mg PO DAILY 05/27/24 06/24/24 History (Lexapro) methocarbamol 750 mg tablet 750 mg PO DAILY 06/10/24 06/24/24 History Allergies Allergy/AdvReac Type Severity Reaction Status Date / Time erythromycin base (From Allergy Unknown Unknown Verified 06/24/24 07:12 E-Mycin) Penicillins Allergy Unknown Unknown Verified 06/24/24 07:12 shellfish derived Allergy Unknown Unknown Verified 06/24/24 07:12 Sulfa (Sulfonamide Allergy Unknown Unknown Verified 06/24/24 07:12 Antibiotics) codeine Allergy Unknown Verified 06/24/24 07:12 Exam Constitutional Documenting provider has reviewed patient's vital signs: yes Common normals: no apparent distress, oriented x3, healthy appearing, alert and well nourished General appearance: cooperative HENIA Common normals: normocephalic, hearing grossly normal bilaterally and moist oral mucous membranes Head and scalp: normocephalic Eye Common normals: PERRL Pupil: PERRL Neck & C-Spine Common normals: full ROM General: normal visual inspection Chest Common normals: inspection of chest normal Respiratory Common normals: normal respiratory effort, no retractions and no use of accessory muscles Back & Pelvis Thoracic spine/upper back: pain with ROM; no thoracic spinal tenderness and no paraspinal muscle tenderness Lumbar spine/lower back: pain with ROM and straight leg raise positive left; no lumbar spinal tenderness and no paraspinal muscle tenderness Sacroiliac joints: SI joints normal Other: decreased sensation left L4,5,S1 pattern strength 5/5 in BLE Neuro Common normals: oriented x3, CN's II-XII intact bilaterally, moves all extremities, no focal motor deficits, no sensory deficits noted and deep tendon reflexes 2+ bilaterally Sensorium/orientation: alert Motor exam: strength 5/5 throughout and no movement abnormalities noted Psych Common normals: mental status grossly normal, thought process normal, cooperative, affect normal, speech normal and activity/motor behavior normal Speech: normal speech Thought process: normal thought process Results Additional Findings Additional findings: If on a controlled substance or opioids, I have checked an [place]AR[place] report on this patient and there are no aberrancies noted in the prescribing history.??If on a controlled substance or opioid a drug screen was completed and reviewed within the last year, and if there has not been a drug screen completed we ordered one today to monitor higher risk, state monitored pain medication use. As part of providing excellent, safe, comprehensive care, the following was completed at our patient's visit: 1. A medication reconciliation and review to ensure accurate knowledge of current/active medications, including asking our patients to inform us about any [id number] medications or herbal remedies/nutritional supplements/alternative remedies. 2. A review to specifically ensure our patients have had annual screening for screening for depression, screening for tobacco use, and screening for unhealthy alcohol use. For concerning screenings had a discussion with the patient, provided patient education, and recommended follow-up with primary care provider when appropriate. If patient noted with a risk of falling, they received education on strength, gait, and balance training to prevent future risk of falling. Assessment and Plan Assessment and Plan (1) Lumbar radiculopathy: (2) Polyneuropathy: (3) Lumbar stenosis with neurogenic claudication: (4) Sacroiliitis: (5) Lumbar degenerative disc disease: (6) Left-sided low back pain with sciatica: Qualifiers: Chronicity: chronic Sciatica laterality: sciatica of left side Qualified Code(s): M54.42 - Lumbago with sciatica, left side; G89.29 - Other chronic pain (7) Muscle spasm: Plan refer to [facility] for evaluation of polyneuropathy briefly discussed spinal cord stim trial with pt for chronic low back pain and radiculopathy she may benefit from this, pt will think more about continue current medications f/u after neurology consultation
== END 2024-09-04 14:17 | disposition home or self-care (01) ==
LOC: PM 14:16
PROVIDERS: PCP Physician Assistant; Visit Provider Nurse Practitioner
DX: M54.16 Radiculopathy, lumbar region (principal); G62.89 Other specified polyneuropathies; M48.062 Spinal stenosis, lumbar region with neurogenic claudication; M46.1 Sacroiliitis, not elsewhere classified; M51.369 Other intervertebral disc degeneration, lumbar region without mention of lumbar back pain or lower extremity pain; M54.42 Lumbago with sciatica, left side; G89.29 Other chronic pain; M62.838 Other muscle spasm
CPT/HCPCS: G0463

== ENCOUNTER 2024-09-18 22:44 | Emergency (ER) | payer MEDICAID, SELFPAY ==
--- OUTSIDE RECORDS SUMMARY | 2024-09-18 22:49 | XMS_ITS | CCD ---
Author Organization [facility] Care Team Providers Care Tapering Machine Operator Name Role Phone FRANCOISE BARNES Unavailable Unavailable ESPERANZA, DANUTA F Unavailable Unavailable Gus, Ida Evans Attending Unavailable Gus, Ida Evans Attending Unavailable Gus, Ida Evans Attending Unavailable HEMMERFRANCOISE Referring Unavailable HEMMER, FRANCOISE Admitting Unavailable HEMMER, FRANCOISE Primary Care Unavailable HEMMER, FRANCOISE Attending Unavailable HajdariTyler Attending Unavailable HEMKAM, FRANCOISE Primary Care Unavailable TRENT ., SUNSHINE Admitting Unavailable TRENT ., SUNSHINE Attending Unavailable MISC, DR SLOAN Primary Care Unavailable LATHAM, DR EM Snyder Consulting Unavailable TRENT ., [...] Provider BORIS Szymanski-C Simona Sanders Attending Provider Shalini Coffey MD Primary Care Provider [phone] MATTHEW BANGURA Attending Unavailable ESPERANZA, DANUTA F [...] Unavailable Giedraitis , Andrius Vytautas Attending Unavailable HEMMER, FRANCOISE Del Castillo Attending Unavailable HEMMER, FRANCOISE Del Castillo Attending Unavailable OSMELGERMAINE Attending Unavailable HEMMER, FRANCOISE Del Castillo Attending Unavailable HEMMER, FRANCOISE Del Castillo Attending Unavailable HEMMER, FRANCOISE Del Castillo Attending Unavailable DESIREE, AHMALoulou F Attending Unavailable DESIREE, AHMAD F Referring Unavailable PLACIDO MENDEZ Attending Unavailable HEMMER, FRANCOISE Del Castillo Attending Unavailable ARIE PLASCENCIA Attending Unavailable STEPHONSIMONA OCONNELL Referring Unavailable HEMMER, FRANCOISE Del Castillo Attending Unavailable BERNIE, TONYA L Attending Unavailable BERNIE, TONYA L Attending Unavailable Stephon, Simona E Admitting Unavailable StephonSimona oconnell E Attending Unavailable NON STAFF Primary Care Unavailable Jmaey Morgan Admitting Unavailab le Jamey Morgan Attending Unavailab le NON STAFF Primary Care Unavailable Allergies Allergy Classification Reported Allergen(s) Allergy Type Date of Onset Reaction(s) Facility (1 source) Cephalexin; Translations: [Keflex] Drug Allergy [facility] Repository (20 sources) Clindamycin; Translations: [clindamycin] Drug Allergy [facility] Repository (20 sources) Codeine; Translations: [codeine] Drug Allergy [facility] Repository (1 source) NSAIDs; Translations: [NSAIDs] Propensity to adverse reactions (disorder) [facility] Repository (20 sources) Penicillins; Translations: [penicillins] Propensity to adverse reactions (disorder) [facility] Repository (1 source) Sulfonamides (Antibiotic); Translations: [sulfa drugs] Propensity to adverse reactions (disorder) [facility] Repository (1 source) alot of ATB's, I dont know names; Translations: [alot of ATB's, I dont know names] Propensity to adverse reactions (disorder) [facility] Repository (1 source) Penicillin Drug Allergy [facility] Repository (1 source) Sulfonamides (Antibiotic) Drug allergy (disorder) [facility] Repository (4 sources) Sulfonamides (Antibiotic); Translations: [SULFA (SULFONAMIDE ANTIBIOTICS)] Allergy to substance 5 [facility] (20 sources) erythromycin base; Translations: [ERYTHROMYCIN BASE] Allergy to substance 7 [facility] (20 sources) Bacitracin / Polymyxin B; Translations: [BACITRACIN-POLYM YXIN B] Drug Allergy [facility] Work Phone: (20 sources) Ciprofloxacin; Translations: [CIPROFLOXACIN] Drug Allergy 5 [facility] (20 sources) Erythromycin; Translations: [ERYTHROMYCIN] Drug Allergy 5 [facility] (20 sources) Penicillin G Drug Allergy [facility] (20 sources) Sulfonamides (Antibiotic) Drug Allergy 5 [facility] (20 sources) Soap; Translations: [SOAP] Allergy to substance 7 [facility] (1 source) Grass pollen; Translations: [GRASS POLLEN] Propensity to adverse reactions to drug (disorder) [facility] Repository (1 source) SHELLFISH CONTAINING PRODUCTS; Translations: [SHELLFISH CONTAINING PRODUCTS] Propensity to adverse reactions to food (disorder) 5 [facility] Repository (20 sources) rizatriptan Drug Allergy [address] [facility] [...] bedtime. 90 tablet 2 05/15/2024 Active Start: 09-05-2023 acarbose (Prec ose) 25 MG tablet Take 1 tablet by mouth in the morning and 1 tablet at noon and 1 tablet in the evening. Take with meals. 04/25/2023 Active [id number] 200 actuat albuterol 0.09 mg/actuat metered dose [...] every month Aripiprazole (Abiliffabián Maintena) 400 mg Suspension,Extended Rel Syring Active [...] once daily cholecalciferol (Vitamin D-3) 250 MCG (37027 UT) capsule Indications: Vitamin D deficiency TAKE 1 CAPSULE BY MOUTH ONCE A DAY AT THE SAME TIME. 100 capsule 3 01/24/2024 Active Start: 02-06-2023 take 1 capsule by mo ut once daily cholecalciferol (Vitamin D-3) 250 MCG (84835 UT) capsule Indications: Vitamin D deficiency Take 1 capsule (250 mcg) by mouth 1 (one) time each day at the same time. 90 capsule 3 02/06/2023 Active Continuous Blood Gluc Receiv er (FreePLTechyle Samreen 2 Crockett) device (20 sources) Start: 02-23-2023 Continuous Blo od Gluc Thermal Technician (FreeStyle Samreen 2 Crockett) device USE DIRECTED 02/23/2023 Active Start: 02-23-2023 Continuous Blo od Gluc Thermal Technician (FreeStyle Samreen 2 Crockett) device USE DIRECTED 0 02/23/2023 Active Continuous Glucose Sensor (FreeStyle Samreen 2 Sensor) misc (12 sources) Start: 08-27-2024 Continuous Glu cose Sensor (FreeStyle Samreen 2 Sensor) misc Indications: Hypoglycemia, unspecified CHANGE EVERY 14 DAYS 2 each 5 08/27/2024 Active Start: 08-27-2024 Continuous Glu cose Sensor (FreeStyle Samreen 2 Sensor) misc Indications: Impaired fasting glucose , Hypoglycemia Inject 1 each into the skin every 14 (fourteen) days Use as directed 6 each 3 08/27/2024 Active diclofenac sodium 0.01 mg/mg topical gel [...] 11:00pm 1.5 ml fremanezumab-vfrm 150 mg/ml auto-injector (9 sources) Start: 08-08-2024 fremanezumab (Ajovy) 225 MG/1.5ML [...] mg oral capsule (20 sources) Start: 04-04-20 23 take 1 capsule by mouth in the morning Caplyta 42 MG capsule Take 1 capsule by mouth in the morning. 04/04/2023 Active methocarbamol 750 mg oral tablet (17 sources) Muscle Relaxant Start: 06-10-20 24 take 1 tablet by mouth every twenty-four hours as needed methocarbamol (Robaxin) 750 MG tablet Take 750 mg by mouth Daily as needed 06/10/2024 Active 24 hr metoprolol succinate 25 mg extended release oral tablet (20 sources) beta-Adrenergic Ophelia Start: 04-24-20 End: 08-27-19 25 take 1 tablet by mouth once daily metoprolol succinate XL (Toprol-XL) 25 MG 24 hr tablet Indications: Benign essential hypertension (CMS/HCC) Take 1 tablet (25 mg) by mouth Daily Do not crush or chew. 100 tablet 3 08/27/2024 Active Multivit With Min-Folic Acid (Centrum Multigummies) [...] 08/02/2023 Active nystatin 100 unt/mg topical powder (20 sources) Polyene Antifungal Start: 08-12-2024 nystatin (Mycostatin) 686297 UNIT/GM powder Indications: Rash APPLY TO AFFECTED AREA TOPICALLY DAILY NEEDED 60 g 2 08/12/2024 Active Start: 06-26-2024 End: 08-08-2024 nystatin (Mycostatin) 802754 UNIT/ML suspension Indications: Thrush, oral Take 4 mL (400,000 Units) by mouth in the morning and 4 mL (400,000 Units) at noon and 4 mL (400,000 Units) in the evening and 4 mL (400,000 Units) before bedtime. Do all this for 14 days. 224 mL 07/17/2024 08/08/2024 Discontinued (Therapy completed) Start: 05-06-2024 nystatin (Myco statin) 868681 UNIT/GM powder Indications: Rash Apply 1 application topically Daily PRN 60 g 2 05/06/2024 Active nystatin (Mycost atin) 709057 UNIT/GM powder Apply 1 application topically in [...] (20 sources) Opioid Agonist Start: 03-18-2024 End: 10-02-2024 take 1 tablet by mouth twice daily as needed for pain traMADol (Ultram) 50 MG tablet Indications: Chronic pain of both knees Take 1 tablet (50 mg) by mouth 2 (two) times a day as needed for severe pain 60 tablet 09/02/2024 10/02/2024 Active Start: 09-25-2023 take 1 tablet by [...] Drug Class(es) Dates Sig (Normalized) Sig (Original) Continuous Blood Gluc Sensor (FreeStyle Samreen 2 Sensor) misc (20 sources) Start: 04-22-2023 End: 08-27-2024 Continuous Blood Gluc Sensor (FreeStyle Samreen 2 Sensor) misc Use as directed 04/22/2023 08/27/2024 Discontinued (Reorder) Start: 04-22-2023 Continuous Blo od Gluc Sensor (FreeStyle Samreen 2 Sensor) misc Use as directed 04/22/2023 Active Start: 04-22-2023 Continuous Blo od Gluc Sensor (FreeStyle Samreen 2 Sensor) misc Use as directed 0 04/22/2023 Active dexamethasone 1 mg/ml ophthalmic suspension (4 sources) Corticosteroid Start: 09-08-2024 End: 09-13-2024 take 1 drop(s) into the eye(s) in the morning, then take 1 drop(s) into the eye(s) in the evening, then take 1 drop(s) into the eye(s) at bedtime dexAMETHasone (Decadron) 0.1 % ophthalmic suspension Indications: Acute conjunctivitis of left eye, unspecified acute conjunctivitis type Administer 1 drop into the left eye in the morning and 1 drop in the evening and 1 drop before bedtime. Do all this for 5 days. 5 mL 09/08/2024 09/13/2024 gentamicin 3 mg/ml ophthalmic solution (4 sources) Start: 09-08-2024 End: 09-13-2024 take 1 drop(s) into the eye(s) in the morning, then take 1 drop(s) into the eye(s) in the evening, then take 1 drop(s) into the eye(s) at bedtime gentamicin (Garamycin) 0.3 % ophthalmic solution Indications: Acute conjunctivitis of left eye, unspecified acute conjunctivitis type Administer 1 drop into the left eye in the morning and 1 drop in the evening and 1 drop before bedtime. Do all this for 5 days. 5 mL 09/08/2024 09/13/2024 2 ml ketorolac tromethamine 30 mg/ml cartridge (4 sources) Nonsteroidal Anti-inflammatory Drug, Cyclooxygenase Inhibitor Start: 09-08-2024 End: 09-08-2024 60 mg, Intramuscular, Once, On 09/08/24 at 1345, For 1 dose, Max daily dose: 120 mg. Max duration: 5 days total Start: 09-08-2024 End: 09-08-2024 ketorolac (Toradol) injectio n 60 mg Start: 09-08-2024 End: 09-08-2024 60 mg, Intramuscular, Once, On 09/08/24 at 1345, For 1 dose, Max daily dose: 120 mg. Max duration: 5 days total Start: 09-08-2024 End: 09-08-2024 ketorolac (Toradol) injectio n 60 mg PARoxetine hydrochloride 20 mg oral tablet (2 [...] Onset: 01-23-2023 01-23-2023 Chronic Headache, including migraine (7 sources) Headache; Translations: [Morning headache] Onset: 02-13-2018 08-08-2024 Episodic Headache; including migraine (20 sources) Migraine without aura, not refractory ; Translations: [Migraine without aura, not intractable, without status migrainosus] Onset: 01-23-2023 01-23-2023 Chronic Heart valve disorders (4 sources) Cardiac murmur, unspecified; Translations: [CARDIAC MURMUR UNSPECIFIED] Onset: 11-07-2022 Episodic Inflammation; infection of eye (except that caused by tuberculosis or sexually transmitteddisease) (4 sources) Acute conjunctivitis of left eye; Translations: [Unspecified acute conjunctivitis, left eye] 09-08-2024 Episodic Malaise and fatigue (20 sources) Fatigue; [...] loss, moderate Can 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 [facility] NVC 9-10 Nerveson 07-25-2024 Polyneuropathy, axon al loss, moderate Can 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 [facility] Glucose (Bld) [Mass/Vol]Orde red By: Avis Ponce on 06-03-2024 Glucose Blood, POC 96 mg/dL [facility] - Hematology and Cell countson 06-03-2024 HbA1c (Bld) [Mass fraction] 5.3 % [facility] No Panel InformationOrdered By: Avis Ponce on 06-03-2024 [facility] URINE CULTURE, ROUTINEon Bacteria identified Cx Nom (U) Urine Culture, Routine [facility] Healthcare Bacteria identified Cx Nom (U) Mixed urogenital corina [facility] Bacteria identified Cx Nom (U) 25,000-50,000 colony forming units per mL [facility] Bacteria identified Cx Nom (U) [facility] identified Cx Nom (U) [address], [place] [id number] [facility] Bacteria identified Cx Nom (U) Rug Setter [place]: Yash Marcum PhD, Phone: [phone] [facility] MR lumbar spine wo conon MR lumbar spine wo con [facility] Main [place] [address] [place] [id number] MRI Report Signed Patient: Marilee Arriaga MR#: [id number] : 1975 Acct:[id number] Age/Sex: 47 / F ADM Date: 09/19/23 [...] Beckford Jr., D.O.09/19/2023 2:27 PM Dictation Location: [place] [address] Transcribed By: [facility] 09/19/23 1427 Dictated By: Linden Beckford Jr, DO 09/19/23 1412 Signed By: 09/19/23 1427 Normal [facility] XR pre/post mri xrayon 09-19 XR pre/post mri xray [facility] Main [address] [address] XRay Report Signed Patient: Marilee Arriaga MR#: [id number] : 1975 Acct:[id number] Age/Sex: 47 / F ADM Date: 09/19/23 Loc: Room: Type: [facility] Attending Dr: Simona STOCKTON Copies to: MAHIN [...] Beckford Jr., D.O.09/19/2023 3:08 PM Dictation Location: [facility]15 Transcribed By: [facility] 09/19/23 1508 Dictated By: Linden Beckford Jr, DO 09/19/23 1507 Signed By: 09/19/23 1508 Normal [facility] ECHOCARDIO M/2D COMPLETEon 0 11-07-2022 ECHOCARDIO M/2D COMPLETE Patient: MARILEE ARRIAGA Exam Date: 11/07/2022 : 1975 Gender:F Ordering : DR FRANCOISE MARTINEZ Admission #: [id number] Family : Order #: [id number] CLICK HERE TO VIEW EXAM ECHOCARDIOGRAM REPORT [...] Shay Masters M.D. on 11/07/2022 at 19:16 [facility] Coding Summary.on 05-04-2022 Coding Summary. [id number] Gh0bWw+PG hlYWQ+OP3SERGsE64tyBVfqJ2AF1o IYE5SGRTUZHFQNJ7APS6poKM4AOjt Y1UjtmAy QkwazLWvWP86OIa1ZHB5gRsqRUkot I7bsLDtI2o2TdZvPA60mZ22LDbjZS FlToI7YjJwcelzzAZt M9qhJnRdsPGkGzd+PHRhYmxlIHdpZ BShNIcoMGCeGrYzrOrzSG4rOu1rCH VyLWNvbGxhcHNlOiBj s7jsQSTbZDhbCS0thBraT0OalMS7V XYyf6o1Tx20yEG+YDDjVNJ3uCqtBD kau583SfSja0msAWB6 bASaKJebESN8Y48gg6V2LNFcRCZlH XO2uOE0pI9yuAsbfxajD2UmdCUnUw Q3EAM5xPBmlP9joItj emigeU6dAut+I37NUX3UVEBZDM8IY bg9U7IrPuvwbNS+PN96BDDxVF88cO QhnSQvq3strYv7PbHn CYAsWVO8wEqpVWjzm8YtHNNhM46jd MTba5N6OGKzxYhkrAHvMwPvbPO3bK 7eJZtjiuzpr7vmblkd Vzyxz3fcej32sA33U11sUVgzWKMmN MR7GIRcASDbwGqdpq9gbJ9pOi4+ID htv9mfj8pyeZm1LhRt VACepfBbpPxrGRW8h3WjXs54X0Zdw Usmi1YgJjd9wi61qTDxp5D6tLF3CV wiXGOuuR8mDRypIiW9 OSTnNrJrnL27pLGuBXocLw4vzLhqc TrvYF1zBOMxwztsEEGryX0hPBXouR DenMmgXP0wTORhnoob o902VmDkNZQ4MOCxiOXcM7WujP1tF wOeWRSkNHNgU1SebVUdVGsjG568TQ kqYxI5BZLctqOnO3Gu DPZsoDjrGaN1a8M0Gw3Fo8GxpvwjC ND8JWktIRW4LrL2TkWeUtP0U9SmMn g3ZFTvjKsnKK2xV7Gg YPYttufugwekqUO9JIBgWCYcnC41m PNaUFakCg2kx6T4x022DGLjZIIqwX 40Py2keYyqNOUlfCBT wT5fututa7ireaxcMoDgLQWgTQc3H Px4FGFkjUerKfFtKXT9AbA5AJW0iH TppZ5sgMltsdpyjB6v Oyc+C98tvJ0kWMT5WLR5adnzXGKzt lCsKZ34LX79Q7QaVecvbGKppTV+PG QllgUreGhpTI3iUtHw e4nua3HzQBbzW1JpEQOzOLwrFik6H YXtIBI2nLT2iZ9bRSSvHXnyd5Y9nS B6H1NeonHabt1et7nl CLXuAWwwX15gbDPae5Y8GYAgvUH9H NVwiSnrEmWenY00Cfq+PGNvbGdyb3 ApLpanx6gvj5aezAn1 JqSpHCSymgVvzRsfTYW1e1KlUz40L 29sIHdpZHRoPSIxNSUiIHZhbGlnbj 4lxW6pEj8+PGNvbCB3 oKA8vG8vWRPrOaW9NNxbC321GaZbh JPkWorzn4owa5tomSo7NdTeYJYduc EjsMfpGKW7c3DeFf54 F54gEYvkGTGfGUGvLZTsHFImdXvtq b2haA2oCl6+UE9gt6yfzw25lK28xL I+XVCuGKL2iSrpZKoe HYHnxF6bVVyjMvJ3VVKyFoLpbR51j LZvKNawMn6jjOvevLodGZ2jGAFnjm qqt065LwZsz6buUNCm uDXmSQsbSUN1I45no0B0UNVzHQKoO LO9fQV7qY8wjZlfravrhTVifCourx FczDsmUQtsPWymU381 DNMhhXebCfQrgKckgtZmRmPcVBq3X 0ZgBdk7OYYodHdmIK0jbHBwJLacVp 4hyLetpQylNZ0wPSTe jqnes931WaJns0fmGNEeuUEvABqoL KM2P89an7L3FPTcVUYiJSF6gJA5lL 1hbGlnbjogbGVmdDsg nvZeqFyzWOwxVPdiX089SMWygEskY oPmmvWrPMOkqPF2ZT39KU05lLGdt1 L8vOU4T9XsGOCphqld ikyjiXW0ECReLCUejB27Ho8vmUvlT u8tVBSwLIF0QOAonRHmO5YldS3tXr HqPZHnMNDnJ7HgqMLs IPmwZ765RKyhVkQ6NYLzmeNkP2JxQ QGfcMluJbV2y5Q2Wq1QZ3L3NJ93LZ 76aPWug1I7wSY2U6Ts EAZhpooizhhwwZE7TRDrNSXryG32Y d6mgPxwVn3gSMAyGWV4BXTzvOLjM2 RygC7wFyDqBDOiBEVt B9PmuVRvILcyG703IYimNdI6BQRwe hGvR4UhCNLznKqyOhX6a6O3Rg5VIZ w5CY80JD53pGOue1H8 rAB5S6OfKCQbhomsurjelSL5GBViS KOynM63Zl9gkPkmWv1sOWXiNIP8WN YovRWtB4TaiA0eXkGr EZJgPUKkA5AerFMnDJchU860WFsyX eY0MLAekqNdW8HvQWVxpHqoHhK8a6 K2He7LNDNwYO57QOQ6 gFA7XZ21FR35K9WjDkmecXTgbUU+P HRhYmxlIHdpZHRoPScxMDAlJyBzdH poQF1zAo8rPCExBQKb wLjpfBKrRiYgr3yhQAGvFDelHR9ox IygL9AllUP4TKQph7h6Cl15C29rH5 JvdXA+HDLlkRN0hMP5 iE8cOxIwYlB3VFwnY815QrVdzBUbJ rdwy6asp6pxtVs2NkU9EYTrxkDbyS eaOEU1f1CtRf34K70g IEvnWIXjAAWzBGElCTMzuQthtn7ty G9wIi8+XYTmsVB7tZM7qL4tVgFrFu J5ICxxQ581JbTzuJYe Ucuqb1isf8ufhYr0RnSbFBAkfwTzf VjxJRD9r0YiBv97P7JujDsfv4ZfVj k4sg11dTVzf0L7hCO7 P0JtSJMkoygykNYbvLaiUR7dFUXis haoGXKwnK7rHIKkU6j3RwAuXrX6WS vmK1AsjcZ9OZCfhQNx DXamOFK4L47bk0Q6NPWpWZQgSXO9p VI2aH3knUzgopaljPIiqFtaemRblX yrRTpfPRotO336IUYj pPujDTZszT0lVLDhdERybCcvKO3nW LIzrokpEdTRIFfOKUWRZG9TTZSJOo OMPU15ND26tTZbk4R5 rND3F9SiQNDzvnwpjrbawWQ3YNFaK KHiuA92cCLkKLhjKp8cd9Q5k104ZB GgXKPscW57Jk3jkDgt GYWukICByN0loimow1cqfsqcPrMxK YTcMXj6WHj0SPNwxDagZrSaJEG3Au P4PUN0lIDpuJ4neAke boowfU5tUfr+GZUbCqKuHEg9ZDjxd GQ+SGYfQHZ1yHvgVVzbURWnwY3zBD XrG9b0WiPdUtT7RGxo I2GfHSIkuzkbZx10aF4qSaEbSoE9M FtrA0UjnxP6AUMhoZViZZlwAED6G3 8df8H3BTKcIHUiBXM7 eWJ7dO2hoFtdltwihFRfrNvfzaNkp ZxoHPnfDOxkC158ZHTlyQfzWqL9ZK kyGAOmIX63QL25tILk z2N5kJL5R5VmHUYwfwmjqttjyRQ9Q UGnGXJzvT06zFUhZApyNv6it7U0o3 80ZIRnTTExfV30Sm5q xHuuCRXfvGXZuC5fniwoe4mjqlneI uJiRFWoZEs6SDg6OSRcpDugSwLyFP P9CkJ4JWW8yDVjaX2w tKanwxkivR4rYvr+RaDoJSrbCN74M K86gCCvp2S5bAJ9T5RtPPKkqnatsh nkaVT9SVXuIEJjdL84 gWFeHEzlNp0jx1T3p456CZQvAYFxo M32Gc2sxZaeEMSbvIHYeI1hagujp6 xvcjogIzAwMDAwMDt0 BEh8QFGbrQtlGgHiSZH6YuJ6WSM8t MPyrS4xhDtowqqrlL4bBwp+UmVjdX QlyW3gBL00EZ65F2Vq PjwvdGFibGU+PHRhYmxlIHdpZHRoP AyyZUQnDpDsdKgpTO4nGp7gZEDjBO XdxIxilNZwAlKyj7ql FTCwBBtiZI9ebOhfT7TcqBJ0SFOmj 0r7Ld16E83fI1TgqML+YQFhfWO0rC N2bD2oJhCzAgF8EBkv Q234LqXyrFMcQmzue4rff1atdTu4C fJtOJFspmDozWdeFLI7r7QeSi82W1 9sIHdpZHRoPSIyMCUi XDLgiXuiuv0khA8cNz9+OIBcyWH0x HN8vM5dZjJgHaR0BBhsH140DyNiaK BvDwxzY42zD3WqeZE+ EHQyIdr8CIHovWuoBR4klLLvYWruW n5kWIS3YqEhUqNuBHyvZ0RzRANoaw avbrlzfWD7KTGqNGNo aO36Qf4rpZaxCa7iJJSiNUR6WVMgx ZHvM2UzeA2eOzSaSVRkKOQuU3MamR FiSKimE616LPkoKaT8 KBGfrtGmP1FpONEimFmlEnE7i2B3A u3RiVkhtZWmZV3hMjTuZKu6R2ApOl s2RGCfuBodYG9bjGFp BEbhDp6cpCjpbOcpKW8cUORlufysy 722TvJvf6ynTZUeaAZrREieNXV1Y8 9wi1P2IIEnGFDiRDJ9 nAM5vN2wsLljvfdzmWPocOzmglPly CweAGgmFBkyZ228RFKtmKeqKnFXKx i4Y1IoLkc7JZAmwEab HP0obLKlPRoePo7ytUkmmAseGS1zM MZyeykal819VpJld8ipDHHsiMJtJG tzKRC9T37pl7K3HOWp NCLuNTY2pMQ4kO2dqUqhoviqxOYhu XrergFpxKlrNLsxXNowN035YNUpsG ueKg8XRlf0X0GhWzv4 DZGsjRhmPX0jnFNcMMzbZr0luTxrk ZqrYP6vAWSfeuucz235QwKll0njIU GpmHRlNMyjWKI5V38r t9S1TWYwGLQpGVT7bEF8aW8veHnvi jogbGVmdDsgdmVydGljYWwtYWxpZ2 46IHRvcDsnPlBheWVy OjwvdGQ+FJ57fc57L7TaFhimIaj9V EFqGVM4hLA9hA0uKULmBMhxw1A5eE J9M7OkfkVhny9wc7fy YXBz (more content not included)... Normal [facility] Consent for Treatmenton 090 Consent for Treatment [id number]#[id number]:127 [facility] Outside Records Officeon Outside Records Office [id number]#[id number]:127 [facility] Physician Orderon 04-14-2022 Physician Order [id number]#[id number]:127 [facility] Coding Summary.on 11-12-2021 Coding Summary. [id number] Gh0bWw+PG hlYWQ+VS9QFTJjD50esQEsmI8XO6z ENU9NBJKHXNAXVR9DWL2rnBC2QGbp L8HskoSi ZjqqoHFsIZ61XZz0XGC9yZxsNKdfu U9rfSBrO8d9CaPfEU03zY22TMmiOP FdYxS3ToQvuovepVJu O3qwGgFlhTOwDel+PHRhYmxlIHdpZ YSlGHhsCBZaYvVefQdsIH7lCb6dZD VyLWNvbGxhcHNlOiBj z8qbWXMuDFokJR4odHhiT1GpyYA9A AMrn1t8Xw34zIO+DYOyJCR3eRuhFL dbt687UqDgu1ifUDP7 oVVnVJjbUHS0U79ge8A0YWGnWYQiA YB1ePP7cP8etSwhdgzmB5JnyJZqOq V1ANK9gCGsmN8bqQre oewalQ0sFkf+N18RTJ6LRBHPUX0AF lq6R4LqQleitOY+JL00ZWDqJL53fO DaqRKot3ibxVs5CqDs RPOkYGO3zHmlLWrcw7UcKSHjZ29ii ZPuh1D5MIOrfUedfEYjKaNlqMR5lD 9cLHhskfcqg5lkmupf Lpzat7rsvz94fD51J13iFVrdRHCxB VC8XMCcYHZkwTzaml3yaK0oQn6+ID yrq1wsw0fqyLq5UcRs AALeqcJmaTquWTD4v1LwZf24B7Cny Vrok9AuKal5jy09xSSiq8N2rXI9CC osBQRzyI9wDSpmEkI0 TSUsOsEtnF79bFYpTTjaZs9xuQfqo ZyyPW6uBCNfdtdaBVAaqJ3zHEKymY YhxZsdPE7bDOQtfjcn o335AnWxYFD6MQQakTFsT7AnlR0oX cJcNLOxHSKuT9VulERdEXurM587BH drJvD4NHRqnqJfT7Yc UKVgvSnsAhZ5y4Q3Po4Zg4YdzsfaR KA0DGiaEAQqVlJ1KqNyKuD5R3CdFz e9IYTydZsgGW9fP9Ub VTOdndayfsssuEN9NOEnZJXqcY62v CAgYZqnDy8jo3V2z317WOYdVYShiO 30Ac0anBjtPJEqmZES yR7ndohhq7itwjhcJzQoHSKwQHn8D Vf3MNYxnIdiHqKwLLT6IwP0CQI3dF IlxX3zpAhwkstsfB1l Oyc+H72zyE2iCAV9SAT8tdiiBVJyn xJxYY95BM13F7CnCcbhuBPdiWD+PG IvtpWytSvaCU1yFaDm d3dpr0KvEMrhR4KiFGCbPGrmIbt2L QVjTTN9sVX3zA0tYHLlKQbdo6I4bW H1R6SkgtIfzt6lq7yy HDJgUJjzH12prYJgd7W6AXQwoJD5U PNxkDumJnHmfP85Gmw+PGNvbGdyb3 RbBqsyp4xxm4epbPe6 RfGmRCNffaCkiEurBVT9o2MnLl27S 29sIHdpZHRoPSIxNSUiIHZhbGlnbj 7xcH9fPg6+PGNvbCB3 eOU4bI7oFHNzMgU2RRwlL734IgSqt YYnZbwha8vbe0mmsNs8ZkTjWDIxyq TdsTfuXWX7y5ZmJr02 Y39zUGdtEQXnUQYfAVPoKBWmtRngl h6mcW7wIf6+XE9az2efgx84fY00qP I+WUGoQTN9hObvAEcd DJCfbJ4bXNupEvU1QHKhTdWdrZ94o XHtBDvrHg9ieNwvmEprQH7yBBWhwl tgp823YjIlz1eoVOIi pQUoFBjqIGK0D03jp9L3KTAnUKRzZ LE5xIG9kF6leDnminilbSXeoNaosj LisEqyAKriJHotO083 KBIzqDhvUeIwuEoovaXuJqRyELo2Q 1GrOss1JCCalXxmUW1uwDWiTCrmQi 8jkGddqVvlHZ7lCFCv tcrwn501KlEzy6odTVHzgUOaJPrvY DD6O05xk3T2HRBbXXPzMYG2jBW2pP 1hbGlnbjogbGVmdDsg wmXuvPzdICpbHHarF161NTUojJtkR nKbolIbTLLfxHE0PD22IT98hAApn5 P5nPQ5E0KgJXJrjewq mthmaBG9RVKkFDYjoU22Lm8pxZtbY l5aQYCaVKY3MSAgdANpY3MyoD5iEo SgRMOiRZEgB3DvmSBk HGadZ678YZsoIuX5WAZwgrCzB7NpE FXfrFslQoQ0n0K9Ue3UV0U2JF16UW 36uZBgz1R6hJM3B7Vf IRLoowdbiyitsSG4RSZlPXWycO82P h4vyGbmTt6pWTVtVOW2ESNziQMmR0 OayP5oMpTkYKUfBANg A5CvzCEePQveT061GHyhAkU8YLJnu aQjH1MtFCApdOioLbD9q4G2Gj1RPA a3UH27KU78gHEse6G5 kRL5X7HtHTErrmzhirjkdAE0WPHzD AWtzH53Wc1ryNgoJt4vTMUlEVH0AZ UxhKBeF3YciQ0hDnCt SWVeXFIiF7TdfLFeTAruQ115ICcrT xO8HJEjghYmB6ZyUHYhaHyxSdA8e8 J2Po0WKGJvCH67TQX9 pTT1YE76TD84P8SvOtbfrFUunWR+P HRhYmxlIHdpZHRoPScxMDAlJyBzdH vlET9nLq8sNUHxNESz xGrkyGRwJfCvx9svOICuIPakGL5iu WmxC5FqcMK2WHSax3d1Db69U57bG0 JvdXA+OAMhdPK0vFB0 eZ9sGcUeJgH3AQvaL545JoRqyWEaI lhnv2qrb0gboHf2PbP4HEYpnzPmvD bbKGW5d2KbPw64G46a XGahDQSiKULiTKZyTSByhEbswd4tr G9wIi8+XPOatEG0cFN2bT4xKvBuQr P5YSmfP137KlNulDZn Lfnwg3hgj3vevEa5CuShBJQbaaObw KsyUXR7z4VtMe29L6YhiZamx8LqZl u6yj75uZUoi7B0mCD6 V9VcDSMzadqplQHimUjiAV1uNZQyx akwZASutQ0tSGOtA2m4WhZzSeB7YK hdI3JawhU1LYBslMNa DHosMXR1T77oy8R6SKPzFLHwYGZ3h GG5lU6gzTacjwgrzWUthFmnsyHxbV ikJDkgHJamC019RQWu iPteAUAyrY2zASVsdBAggMosXQ4nG LDnpgdpWjEVUTjOBEYRMW5HINHVOw HJMA55BQ89kHLtx4J5 pHD7X6CpKZEwdwczudxutQD5DFGeD OOxuY40mCAeEVasFm5ov1N2w439HG YyZMGlkJ90Qv7eyGga NRPgwMLXpL1qwufen8brhxgfGhVfP GLxEUc7POs1WHNheAgfDcTmKCP2Ji N6HPG9zPYjsX4ljPan qunhzO2sCjw+QLBaNkQvNVs4VBxoq GQ+KAMgEXU7vRewBQqlTRLbjF4rSY DmN5y0TkCqDjK0LAzk Y0CpMLSszzzhLu31kI0dIhIaFzR7K BimC5OznwV4YYKxnJXjXHptKYH2E6 1ck7I0KXIuEDAgIDY3 wGS9qE4qvYmcxeuhwYNwfMcuunWsh LvuZBdnMWrqP894RHQszOctMwBsJT zeYTSuCM99RV42fKWa r6R2nJS3Z6IjHAWkqijgioswfZP5Z HTmULTrcS12gIFbELdqBw3vg4U4e7 43PCNxTVPhhH80Lx8q hExkKGKkfZLTbB0putjmu9btqwybP nKyWZYkNXo8WNy1SECfvLupBzHvUV B2NsZ7RGI1tATwyL3l xBzeflpamS1aWqs+UkBtSHhwMH28J R46sJLjt3N0pGI6Q6QeQRVvcooyma gcnKV8EYKmQGJrxZ94 oXQaYAstYz6ht5K9x715HBJnIANwo O72Rm4igAsxODOctUJIpQ1ccxbsm6 xvcjogIzAwMDAwMDt0 WQu0PKYkbLuzOwAnPJM9KuH5OPZ7o VCeaQ6vlNnajsgcpR4kLtn+RW1lcm roybK5ZD31IJ16K8On PjwvdGFibGU+PHRhYmxlIHdpZHRoP JqqBATsDoElvBphOA3zKu6sLJRkKP OmeLntiXSxDvKha7fb BHSmWZcxTQ3faDaeK0MzxMM4QKOld 3o1Br77U68tG6OevCZ+CTKbnLH8oD K0lJ0oSxJvWrE9YVhu V280JcRqzEUlPsabx6htw0hsqLq7Q jRvQGXislPpaFpmQOE8v1JcIb67R8 9sIHdpZHRoPSIyMCUi FSOfqSntux0jkO2iHf1+HAWvfOM5w UK8wT7hPhVbJgH1BEjuE476XfMxvA KbFnlnP94bH7XooZQ+ JYWsByo3ROKjoLgeXG2tzTKgPZcwO l4sRAE8NxFnJcQiYWngV4RfWKStan pxdtjmqJV0EFIzNHLx rT16Ld2shUptXy0fFJMlNZQ3OEJrk OAoG6EzxV0aFkVrJOLzRYEaN5YgzY HkQXavG312JKkiUxY9 HDEwqiAmX0ExQRMpaLetJdH7o8T8K n9WjUoatWPpUS5nAaXgNWc2R0VmCq d0DCClsGcvSQ2jdVUa YUeoHa2gaVcwwIghAE8cYRVdrfozn 213FtPoe1uiWMMcxSKtKIwoKQJ6T6 0il6M7WRSxVUOlGIT9 hAS1wN4wcPhylwwpnFXuiOdlgxOjw WikYGtyBXgiH252UTHyyZznUoBEIa y3J8AfMqo4XDQzjPec MW4ecQVuWQrmVu6srEudlCdtSZ3gW MFmhjada818XwZoh5qdLEZxdYGsUD jxMGU7G79ac6E8MAQu RCKfJLI4uQJ0cZ8wcSbicrbooPSdg TpdmuClzJrzJOpuBBvlR634OXXczQ mrEh2XAko3U7RoHwr9 XCDyxYncHY5awBPmCDkjRr3cdErqn RudOM4qSYTfkyjts649LwNmd1flVJ EkbCQpBZyxFJJ5J79q b3X0CHKyEOFcATW5rCQ2fK2yqXjre jogbGVmdDsgdmVydGljYWwtYWxpZ2 46IHRvcDsnPlBheWVy OjwvdGQ+WY28in68E7DtVyyqJhc0T ZQoNFD8nTO6oH1pXDDkVFbjq9E2vP H3W8YxnlCods8yo6vh YXBz (more content not included)... Normal [facility] Consent for Treatmenton 10-19 Consent for Treatment [id number]:127 Normal [facility] Discharge Instructionson Discharge Instructions [id number]#1.00CD:127 Normal [facility] ED Clinical Summaryon 2021 ED Clinical Summary (Inserted Image. Maria Del Rosario ble to display) [address] [address] ED Clinical Summary Person Information Name: MARILEE ARRIAGA [place] Age: 45 Years : 1975 Sex: Female Language: Portuguese PCP: FRANCOISE GAY Marital Status: Single Visit [...] 16:00:59 11/05/2021 16:00:59 11/05/2021 16:00:59 [address] [address] [facility] [id number] PHYS DOC NOTES: MEDICAL INFORMATION: Prescriptions Given: New Medications [facility]/pharmacy #[id number], [address] [place], [place] [id number], [phone] acetaminophen-hydrocodone ([place] 325 mg-5 mg oral tablet) 1 Tablets [...] up: With: Address: When: Em Mir [address] [place] [address] Business (1) In 3 days 11/08/2021 Comments: Return to the emergency room if your pain gets worse or any new symptoms. With: Address: When: FRANCOISE BARNES [address] [place], [place] [id number] Business (1) In 3 days DIAGNOSIS: 1:Avulsion fracture of left ankle; 2:Sprain of left foot Normal [facility] ED Note-Physicianon 11-06-19 ED Note-Physician Basic [...] and crutches was given. Patient was given [place] in the emergency room. Will discharge patient home with [place]port and follow-up with Ortho. The OARRS report [...] needed for pain, 10 tab(s), Refill(s) 0, [facility]/pharmacy #[id number], 158, cm, 11/05/21 13:26:00 EDT, Height/Length [...] Foot 3+ Views Left Medications Administered Given [place] 5/325 Tab, 1 tab(s), Oral Disposition Plan Patient Discharge Condition Stable Discharge Disposition Discharged home Discharge Prescription List Prescriptions Mckeesport 325 mg-5 mg oral tablet, 1 tab(s), Oral, q6hr, PRN Follow-up With When Contact Information Em Mir In 3 days 11/08/2021 EDT [address] [place] [address]- Business (1) Additional Instructions: Return to the emergency room if your pain gets worse or any new symptoms. FRANCOISE BARNES In 3 days [address] Business (1) Additional Instructions: Patient Education Crutch [...] Tab, 100 mg= 1 tab(s), Oral, Daily [place] 325 mg-5 mg oral tablet, 1 tab(s), Oral, q6hr, PRN ondansetron 4 mg/5 mL oral solution Prozac 20 mg Cap, 20 mg= 1 cap(s), Oral, Daily Prozac 40 mg Cap, 40 mg= 1 cap(s), Oral, Daily Qvar with Dose Counter 80 mcg/inh inhalation aerosol ranitidine 150 mg Tab, 150 mg= 1 tab(s), Oral, BID SEROquel 100 (more content not included)... Normal [facility] Comment on above: Result Comment: Elec [...] Reviewed: 01/27/2017 Elsevier Patient Education ? 2019 [employer] How to Use a Stirrup Ankle [...] the bra (more content not included)... Normal [facility] ED Patient Summaryon 022 ED Patient Summary (Inserted Image. Maria Del Rosario ble to display) [address] [address] Patient Discharge Instructions Person Information Name: MARILEE ARRIAGA Age: 45 Years Arrival Date: 11/05/2021 13:19:01 Discharge Diagnosis: 1:Avulsion fracture of left ankle; 2:Sprain of left foot Primary Care Physician: FRANCOISE GAY Provider Information Primary Provider: Tyler Petersen M.D. Advanced Interlocking Pavement Installer:None The exam and treatment you received in the Emergency Department were for an urgent problem and are not intended as complete care. It is important that you follow up with a doctor, nurse practitioner, or physician?s marketing assistant for ongoing care. If your symptoms [...] Instructions: With: Address: When: Em [address] [place] [address] (1) In 3 days 11/08/2021 Comments: Return to the emergency room if your pain gets worse or any new symptoms. With: Address: When: FRANCOISE BARNES [address] [place], [place] [address] (1) In 3 days In the event [...] opioids can be used to help relieve difdejgj-us-ivlkpk pain and are often prescribed following a [...] Administration (www.fd (more content not included)... Normal [facility] XR Ankle 3+ Views Lefton XR [...] Barnett MD Transcribed by: KAIDEN Technologist: Normal [facility] XR Foot 3+ Views Lefton 10-19 XR Foot 3+ Views Left Exam Date/Time: 11/05/2021 13:50 EDT Reason for Exam: Fall Report Refer to concurrent left ankle radiograph dictation. FINAL REPORT Dictated: 11/05/2021 2:04 pm Rony Barnett MD Signed (Electronic Signature): 11/05/2021 2:04 pm Signed by: Rony Barnett MD Transcribed by: KAIDEN Technologist: Normal [facility] MRI BRAIN W WO CONTRASTon MRI [...] by:SUMANTH Garciaigned by:Margo Mendez MD02/13/18inal result Normal [facility] CNDSon 02-16-2017 CNDS HNO ID: [id number] thor: Mark Anthony (Romain) Kyravice: General SurgeryAuthor Type: ResidentType: Discharge SummariesFiled: 02/16/2017 11:44 AMNote Text:[facility] [place], [place] [address] or (295) [facility] O N F I D E N T I A L I N F O R M A T I O N -------[facility] [place] DOCUMENTDISCHARGE SUMMARYPatient Name: Marilee Buckner Date: 02/13/2017Discharge Date: 02/16/2017Attending Physician: DENIZ Pfeifferrincipal Diagnosis: Morbid obesitySecondary Diagnoses:Patient Active Hospital Problem List: Obesity, Class III, BMI >= 40 (morbid obesity) ([facility]) E66.01 (02/12/2017) Morbid obesity ([facility]) (02/13/2017)Operations During Hospitalization:Laparoscopic Crystal en Y gastric [...] as needed.Future Appointments:Future AppointmentsDate Time Provider Department [place]02/23/2017 2:30 PM [id number]-PIJJXBIUYRENÉE MORENO GENBMI GENS A/M 03/09/2017 11:00 AM [id number]-OEWEBMQNFO, KASEY (PHD) GSPSMN GENS A/M 03/16/2017 12:00 PM [id number] 2 GENBMI GENS A/M D04/06/2017 1:45 PM [id number]-FBBYMSAKTRENÉE LUNDBERG GENBMI GENS A/M D05/16/2017 10:30 AM [id number]-CLMKELISSY SOTO GENBMI GENS A/M D05/16/2017 10:30 AM [id number]-SVHONLISSY TAM GENBMI GENS A/M BLDPatient will follow-up in clinic with Renée Moreno MD as scheduledabove, or sooner if the need arises.Electronically SIGNED by Licensed Independent Practitioner: Mark Anthony Jean MD [facility] Glucose POCT (East, West, F [place] Use Only)on 02-16-2017 Glucose mass conc 105 mg/dL High 65-100 [facility] Comment on above: Performed By: #### G [facility] ####[facility] [place], [place] [phone] NURSING PROGon 02-16-2017 NURSING PROG HNO ID: [id number] thor: Lilibeth Ortega (Rn) Doroteo Santos: (none)Author Type: Registered NurseType: Nursing Progress NoteFiled: 02/16/2017 11:37 AMNote Text: Nursing Progress NotePatient Name: Marilee PruittN: [id number] [facility] _Daily Note: Patient has been discharged home; [...] note was completed by: Lilibeth Santos RN [facility] NURSING PROG HNO ID: [id number] thor: Lilibeth Ortega (Rn) Doroteo Santos: (none)Author Type: Registered NurseType: Nursing Progress NoteFiled: 02/16/2017 10:27 AMNote Text: Nursing Progress NotePatient Name: Marilee OlivierJustinN: [id number] Location: [place] [address]/ZF-[id number] _Daily Note: Doing better this am, able to take all of pills and drink theKphos, took a shower, so taking in more po, pain controlled, no emesis, nomore bloody stool, ambulating VSS, on RA, expecting to go home today,continue to monitor.This note was completed by: Lilibeth Santos RN [facility] PROGRESSon 02-16-2017 PROGRESS HNO ID: [id number] thor: Hiram (Romain) HuysService: General SurgeryAuthor Type: ResidentType: Progress NotesFiled: 02/16/2017 8:02 AMNote Text:General Surgery Progress NoteName: Marilee OlivierirMRN: [id number]: 02/16/2017SUBJECTIVESubjective : No acute events overnight. Last [...] lb) LMP 01/27/2017 SpO2 94% BMI 62.73 kg/q4Hnieen/Output Summary (Last 24 hours) at 02/16/17 0759Last [...] with morbid obesity now POD 3 s/p lekyfyzqmsldUbfh-gz-Y gastric bypass. Bloody bowel movements resolved with stable H/H.- Phase 2 bariatric diet- Heplock IV- Wean O2- PO pain meds, hold toradol- Will discuss resuming DVT prophylaxis- Encourage incentive spirometry and ambulation- Anticipate discharge today on home Richelle Gordon MDGeneral Surgery ResidentPager [phone] Normal [facility] Basic Metabolic Panlon 02-15 Anion gap 10 mmol/L Normal 9-18 [facility] Comment on above: Performed By: #### B MG VIANCA1, PHOS ####[place] [address] Calcium 8.1 mg/dL Low 8.5-10.5 [facility] Comment on above: Performed By: #### B VIANCA MG1, PHOS ####[place] [address] Chloride 104 mmol/L Normal 98-110 [facility] Comment on above: Performed By: #### B VIANCA MGJose, PHOS ####[place] [phone] CO2 27 mmol/L Normal 23-32 [facility] Comment on above: Performed By: #### B VIANCA MGJose, PHOS ####[place] [address] Creatinine 0.78 mg/dL Normal 0.70-1.40 [facility] Comment on above: Performed By: #### B VIANCA MGJose, PHOS ####[place] [address] eGFR (non-black) mL/min/{1.73_m2} Normal >60 [facility] Comment on above: Performed By: #### B VIANCA MG1, PHOS ####[place] [address] Glucose mass conc 119 mg/dL High 65-100 [facility] Comment on above: Performed By: #### B VIANCA MG1, PHOS ####[place] [phone] Potassium molar conc 4.2 mmol/L Normal 3.5-5.0 [facility] Comment on above: Performed By: #### B VIANCA MG1, PHOS ####[place] [phone] Sodium 141 mmol/L Normal 132-148 [facility] Comment on above: Performed By: #### B REGGIE COLEY PHOS ####[place] [id number] Urea nitrogen 15 mg/dL Normal 8-25 [facility] Comment on above: Performed By: #### B REGGIE COLEY PHOS ####[place] [address] CBCon 02-15-2017 Erythrocyte distribution width Auto Ratio (RBC) 12.9 % Normal 11.5-15.0 [facility] Comment on above: Performed By: #### C BC ####[place] [address] Erythrocytes (RBC) 3.63 10*6/uL Low 3.90-5.20 [facility] Comment on above: Performed By: #### C BC ####[place] [address] Hematocrit (HCT) 33.8 % Low 36.0-46.0 [facility] Comment on above: Performed By: #### C BC ####[place] [id number] Hemoglobin mass conc (Bld) 10.9 g/dL Low 11.5-15.5 [facility] Comment on above: Performed By: #### C BC ####[place] [id number] MCH 30.0 pG Normal 26.0-34.0 [facility] Comment on above: Performed By: #### C BC ####[address] MCHC mass conc (RBC) 32.2 g/dL Normal 30.5-36.0 [facility] Comment on above: Performed By: #### C BC ####[address] MCV 93.1 fL Normal 80.0-100.0 [facility] Comment on above: Performed By: #### C BC ####[place] [phone] Platelet mean volume (PMV) 8.5 fL Low 9.0-12.7 [facility] Comment on above: Performed By: #### C BC ####[place] [phone] Platelets 368 10*3/uL Normal 150-400 [facility] Comment on above: Performed By: #### C BC ####[place] [phone] WBC (Leukocytes) 11.75 10*3/uL High 3.70-11.00 [facility] Comment on above: Performed By: #### C BC ####[place] [phone] CBC and Differentialon 02-15 Abs Baso 0.02 k/uL Normal 0.00-0.10 [facility] Comment on above: Performed By: #### C BCDIF ####[place] [phone] Abs Thurston 0.97 k/uL High 0.00-0.86 [facility] Comment on above: Performed By: #### C BCDIF ####[place] [phone] Abs Neut 8.11 k/uL High 1.45-7.50 [facility] Comment on above: Performed By: #### C BCDIF ####[place] [phone] Basophils/100 WBC Auto (Bld) 0.1 % Normal [facility] Comment on above: Performed By: #### C BCDIF ####[place] [phone] DTYPE Auto Diff Normal [facility] Comment on above: Performed By: #### C BCDIF ####[place] [phone] Eosinophils 0.35 10*3/uL Normal 0.00-0.45 [facility] Comment on above: Performed By: #### C BCDIF ####[address] Eosinophils/100 leukocytes 2.5 % Normal [facility] Comment on above: Performed By: #### C BCDIF ####[place] [address] Erythrocyte distribution width Auto Ratio (RBC) 13.1 % Normal 11.5-15.0 [facility] Comment on above: Performed By: #### C BCDIF ####[address] Erythrocytes (RBC) 3.51 10*6/uL Low 3.90-5.20 [facility] Comment on above: Performed By: #### C BCDIF ####[place] [id number] Hematocrit (HCT) 32.6 % Low 36.0-46.0 [facility] Comment on above: Performed By: #### C BCDIF ####[place] [phone] Hemoglobin mass conc (Bld) 10.7 g/dL Low 11.5-15.5 [facility] Comment on above: Performed By: #### C BCDIF ####[address] Lymphocytes 4.35 10*3/uL High 1.00-4.00 [facility] Comment on above: Performed By: #### C BCDIF ####[address] Lymphocytes/100 leukocytes 31.5 % Normal [facility] Comment on above: Performed By: #### C BCDIF ####[place] [phone] MCH 30.5 pG Normal 26.0-34.0 [facility] Comment on above: Performed By: #### C BCDIF ####[place] [phone] MCHC mass conc (RBC) 32.8 g/dL Normal 30.5-36.0 [facility] Comment on above: Performed By: #### C BCDIF ####[place] [phone] MCV 92.9 fL Normal 80.0-100.0 [facility] Comment on above: Performed By: #### C BCDIF ####[place] [phone] Monocytes/100 leukocytes 7.0 % Normal [facility] Comment on above: Performed By: #### C BCDIF ####[place] [phone] Neutrophils/100 WBC Auto (Bld) 58.9 % Normal [facility] Comment on above: Performed By: #### C BCDIF ####[place] [phone] Platelet mean volume (PMV) 8.3 fL Low 9.0-12.7 [facility] Comment on above: Performed By: #### C BCDIF ####[place] [phone] Platelets 391 10*3/uL Normal 150-400 [facility] Comment on above: Performed By: #### C BCDIF ####[place] [phone] WBC (Leukocytes) 13.80 10*3/uL High 3.70-11.00 [facility] Comment on above: Performed By: #### C BCDIF ####[place] [phone] Glucose POCT (East, West, [place] A Use Only)on 02-15-2017 Glucose mass conc 111 mg/dL High 65-100 [facility] Comment on above: Performed By: #### G LUPOC ####[place] [phone] Glucose mass conc 121 mg/dL High 65-100 [facility] Comment on above: Performed By: #### G LUPOC ####[place] [address] Glucose mass conc 99 mg/dL Normal 65-100 [facility] Comment on above: Performed By: #### G LUPOC ####[place] [address] Glucose mass conc 116 mg/dL High 65-100 [facility] Comment on above: Performed By: #### G LUPOC ####[place] [address] Magnesiumon 02-15-2017 Magnesium 2.0 mg/dL Normal 1.7-2.6 [facility] Comment on above: Performed By: #### B MP, MG1, PHOS ####[place] [address] NURSING PROGon 02-15-2017 NURSING PROG HNO ID: [id number] thor: Lilibeth Ortega (Rn) SUNSHINE Santoservice: (none)Author Type: Registered NurseType: Nursing Progress NoteFiled: 02/15/2017 4:15 PMNote Text: Nursing Progress NotePatient Name: Marilee SmithRN: [id number] Location: [place] [address] _Daily Note: Dr called to inform that patient had another bloody stool itwas dark red, no change in vital signs HR has remained in 70's, on RA, noincrease in pain, patient is only taking sips of clears otherwiseunchanged , stable, lab orders again @ 1800.This note was completed by: Lilibeth Santos, BEBETO Normal [facility] NURSING PROG HNO ID: [id number] thor: Lilibeth Ortega (Rn) Doroteo Santos: (none)Author Type: Registered NurseType: Nursing Progress NoteFiled: 02/15/2017 10:29 AMNote Text: Nursing Progress NotePatient Name: Marilee SmithRN: [id number] Location: [place] [address]/PD-UG2L-01 _Daily Note:Patient states she's feeling ok, just brought up some 'phlegm',( clearbubbles) no emesis, able to keep down 'bites' or sips of broth and tea,given IV phenergan, denies pain, encouraged to continue to ambulate,stable, call light in reach.This note was completed by: Lilibeth Santos RN [facility] NURSING PROG HNO ID: [id number] thor: Liliana Echeverria) Doroteo Seth: (none)Author Type: Registered NurseType: Nursing Progress NoteFiled: 02/15/2017 5:53 AMNote Text: Nursing Progress NotePatient Name: Marilee SmithRN: [id number] Location: [place] [address]/CB-WF2Q-50 _ Surgery paged [phone] Marilee Arriaga: patient had dark bloody BM. [place] [id number] No new ordersThis note was completed by: Liliana Seth RN [facility] PROGRESSon 02-15-2017 PROGRESS HNO ID: [id number] thor: Mark Anthony (Romain) TedService: General SurgeryAuthor [...] RNF, potential discharge tomorrowPaul MD Ted (PGY 2)[id number] 6PM weekdays and all through weekends: [id number] SNausea and emesis yesterday, improving and PO intake improvingSlept okayDark bloody BMs this AMAmbulating well OTemp (24hrs), Av.7 ?C (98 ?F), Min:36.4 ?C (97.6 ?F), Max:36.9 ?C(98.4 ?F)BP 147/78 Pulse 80 Temp 36.4 ?C (97.6 ?F) (Oral) Resp 16 Ht 154.9cm (5' 1 ) Wt (!) 150.6 kg (332 lb) LMP 01/27/2017 SpO2 99% BMI62.73 kg/l1BKFUCZP: Mild distress as actively nauseated and sitting up with vomitbag, alert and oriented x 3HEENT: NC/AT, EOM's intactRESPIRATORY: Respiratory effort unlaboredCHEST-CVS: HDSABDOMEN: Soft, obese and non distended, non tender, laparoscopic incisionsCDI with glueNEURO: Grossly non-focal02/14 0700 - 02/15 0659In: 3622 [PO:300; IV:3322]Out: 2180 [Urine:1850] Normal [facility] PROGRESS HNO ID: [id number] thor: Renée MorenoSerankitae: General SurgeryAuthor Type: PhysicianType: [...] as PO intake improvesStreggie Moreno MD Normal [facility] Phosphoruson 02-15-2017 Phosphate 1.9 mg/dL Low 2.5-4.5 [facility] Comment on above: Performed By: #### B VIANCA MG1, PHOS ####[facility] [place], [place] [phone] Vital Signs Date Time Vital Sign Value Performing Clinician Facility 09-09-2024 12:20-0500 Body mass index (BMI) [Ratio] 59.26 kg/m2 Tonya Gibbs CONTACT CENTER DIRECTOR Work Phone: [facility] 09-09-2024 12:20-0500 Body temperature 97.2 [degF] Tonya Gibbs CONTACT CENTER DIRECTOR Work Phone: [facility] 09-09-2024 12:20-0500 Body weight 146.97 kg Tonya Gibbs CONTACT CENTER DIRECTOR Work Phone: [facility] 09-09-2024 12:20-0500 Diastolic blood pressure 72 mm[Hg] Tonya Gibbs CONTACT CENTER DIRECTOR Work Phone: [facility] 09-09-2024 12:20-0500 Heart rate 88 /min Tonya Bernie CONTACT CENTER DIRECTOR Work Phone: [facility] 09-09-2024 12:20-0500 SaO2% (BldA) [Mass fraction] 99 % Tonya Duson CONTACT CENTER DIRECTOR Work Phone: [facility] 09-09-2024 12:20-0500 Systolic blood pressure 130 mm[Hg] Tonya Duson CONTACT CENTER DIRECTOR Work Phone: [facility] 09-08-2024 12:27-0500 Body mass index (BMI) [Ratio] 59.26 kg/m2 Tonya Bernie CONTACT CENTER DIRECTOR Work Phone: [facility] 09-08-2024 12:27-0500 Body temperature 98.71 [degF] Tonya Bernie CONTACT CENTER DIRECTOR Work Phone: [facility] 09-08-2024 12:27-0500 Body weight 146.97 kg Tonya Bernie CONTACT CENTER DIRECTOR Work Phone: [facility] 09-08-2024 12:27-0500 Diastolic blood pressure 88 mm[Hg] Tonya Bernie CONTACT CENTER DIRECTOR Work Phone: [facility] 09-08-2024 12:27-0500 Heart rate 117 /min Tonya Duson CONTACT CENTER DIRECTOR Work Phone: [facility] 09-08-2024 12:27-0500 SaO2% (BldA) [Mass fraction] 98 % Tonya Bernie CONTACT CENTER DIRECTOR Work Phone: [facility] 09-08-2024 12:27-0500 Systolic blood pressure 124 mm[Hg] Tonya Bernie CONTACT CENTER DIRECTOR Work Phone: [facility] 08-08-2024 11:35-0500 Body height 157.5 cm Francoise MARTINEZ Work Phone: [facility] 08-08-2024 11:35-0500 Body mass index (BMI) [Ratio] 59.08 kg/m2 Francoise Hemmer PA Work Phone: [facility] 08-08-2024 11:35-0500 Body weight 146.51 kg Francoise Hemmer PA Work Phone: [facility] 08-08-2024 11:35-0500 Diastolic blood pressure 88 mm[Hg] Francoise Hemmer PA Work Phone: [facility] 08-08-2024 11:35-0500 Heart rate 94 /min Francoise Hemmer PA Work Phone: [facility] 08-08-2024 11:35-0500 SaO2% (BldA) [Mass fraction] 98 % Francoise Hemmer PA Work Phone: [facility] 08-08-2024 11:35-0500 Systolic blood pressure 128 mm[Hg] Francoise Hemmer PA Work Phone: [facility] 07-17-2024 11:35-0500 Body mass index (BMI) [Ratio] 59.26 kg/m2 Francoise Hemmer PA Work Phone: [facility] 07-17-2024 11:35-0500 Body weight 146.97 kg Francoise Hemmer PA Work Phone: [facility] 07-17-2024 11:35-0500 Diastolic blood pressure 90 mm[Hg] Francoise Hemmer PA Work Phone: [facility] 07-17-2024 11:35-0500 Heart rate 86 /min Francoise Hemmer PA Work Phone: [facility] 07-17-2024 11:35-0500 Respiratory rate 18 /min Francoise Hemmer PA Work Phone: [facility] 07-17-2024 11:35-0500 SaO2% (BldA) [Mass fraction] 98 % Francoise Hemmer PA Work Phone: [facility] 07-17-2024 11:35-0500 Systolic blood pressure 130 mm[Hg] Francoise Hemmer PA Work Phone: [facility] 06-26-2024 13:42-0500 Body height 157.5 cm Placido Mendez CONTACT CENTER DIRECTOR Work Phone: [facility] 06-26-2024 13:42-0500 Body mass index (BMI) [Ratio] 58.53 kg/m2 Placido Mendez CONTACT CENTER DIRECTOR Work Phone: [facility] 06-26-2024 13:42-0500 Body weight 145.15 kg Placido Mendez CONTACT CENTER DIRECTOR Work Phone: [facility] 06-26-2024 13:42-0500 Diastolic blood pressure 84 mm[Hg] Placido Mendez CONTACT CENTER DIRECTOR Work Phone: [facility] 06-26-2024 13:42-0500 Heart rate 90 /min Placido Mendez CONTACT CENTER DIRECTOR Work Phone: [facility] 06-26-2024 13:42-0500 SaO2% (BldA) [Mass fraction] 96 % Placido Mendez CONTACT CENTER DIRECTOR Work Phone: [facility] 06-26-2024 13:42-0500 Systolic blood pressure 128 mm[Hg] Placido Mendez CONTACT CENTER DIRECTOR Work Phone: [facility] 06-03-2024 13:34-0400 Body height 157.5 cm Coy Hung MD Work Phone: [facility] 06-03-2024 13:34-0400 Body mass index (BMI) [Ratio] 59.26 kg/m2 Coy Hung MD Work Phone: [facility] 06-03-2024 13:34-0400 Body weight 146.97 kg Coy Hung MD Work Phone: [facility] 06-03-2024 13:34-0400 Diastolic blood pressure 78 mm[Hg] Coy Hung MD Work Phone: [facility] 06-03-2024 13:34-0400 Heart rate 78 /min Coy Hung MD Work Phone: [facility] 06-03-2024 13:34-0400 Respiratory rate 18 /min Coy Hung MD Work Phone: [facility] 06-03-2024 13:34-0400 Systolic blood pressure 118 mm[Hg] Coy Hung MD Work Phone: [facility] 05-09-2024 11:07-0400 Body height 156.2 cm Francoise Hemmer PA Work Phone: [facility] 05-09-2024 11:07-0400 Body mass index (BMI) [Ratio] 60.79 kg/m2 Francoise Hemmer PA Work Phone: [facility] 05-09-2024 11:07-0400 Body weight 148.33 kg Francoise Hemmer PA Work Phone: [facility] 05-09-2024 11:07-0400 Diastolic blood pressure 74 mm[Hg] Francoise Hemmer PA Work Phone: [facility] 05-09-2024 11:07-0400 Heart rate 63 /min Francoise Hemmer PA Work Phone: [facility] 05-09-2024 11:07-0400 Respiratory rate 16 /min Francoise Hemmer PA Work Phone: [facility] 05-09-2024 11:07-0400 SaO2% (BldA) [Mass fraction] 97 % Francoise Hemmer PA Work Phone: [facility] 05-09-2024 11:07-0400 Systolic blood pressure 112 mm[Hg] Francoise Hemmer PA Work Phone: [facility] 09-19-2023 09:41-0500 Body height 157.[address] [facility] 09-19-2023 09:41-0500 Body weight 104.[address] [facility] Encounters Encounter Date Encounter Type Care Provider Facility Start: 09-16-2024 ambulatory Jamey Minor acility:[facility] Start: 09-09-2024 End: 09-09-2024 ambulatory TONYA GIBBS Not Available Start: 09-09-2024 End: 09-09-2024 Office outpatient visit 15 minutes Tonya Gibbs NP Work Phone: [facility] Comment on above: Acute conjunctivitis of left eye, unspecified acute conjunctivitis type (Primary Dx); Acute nonintractable headache, unspecified headache type Start: 09-08-2024 End: 09-08-2024 Office outpatient visit 25 minutes Tonya Tinsley Duson CONTACT CENTER DIRECTOR Work Phone: [facility] Comment on above: Acute conjunctivitis of left eye, unspecified acute conjunctivitis type (Primary Dx); Acute nonintractable headache, unspecified headache type Start: 09-08-2024 End: 09-08-2024 ambulatory TONYAELSI WOLFFBROOK Not Available Start: 09-02-2024 End: 09-02-2024 Refill Francoise Barnes PA Work Phone: [facility] Comment on above: Chronic pain of both knees Start: 08-27-2024 End: 08-27-2024 Refill Shalini Coffey MD Work Phone: [facility] Comment on above: Impaired fasting glu cose (Primary Dx); Hypoglycemia Benign essential hyp ertension (CMS/HCC) Start: 08-08-2024 End: 08-08-2024 Office outpatient visit 25 minutes Francoise Barnes PA Work Phone: [facility] Comment on above: Benign essential hyp ertension (CMS/HCC) (Primary Dx); Insomnia due to other mental disorder; Migraine without aura and without status migrainosus, not intractable (CMS/HCC); Obstructive sleep apnea syndrome; Morning headache; Snoring; Daytime somnolence; Morbid obesity (CMS/HCC) Start: 08-08-2024 End: 08-08-2024 ambulatory FRANCOISE BARNES Not Available Start: 07-25-2024 End: 07-25-2024 Patient encounter procedure Arie Plascencia DO Work Phone: [facility] Comment on above: Paresthesias (Primar y Dx) Start: 07-25-2024 End: 07-25-2024 ambulatory ARIE PLASCENCIA Not Available Start: 07-25-2024 End: 07-25-2024 Bamboo flowsheet Arie Plascencia DO Work Phone: [facility] [place] [facility] Start: 07-25-2024 End: 07-25-2024 Bamboo flowsheet Arie Plascenica DO Work Phone: [facility] [place] [facility] Start: 07-17-2024 End: 07-17-2024 Bamboo flowsheet Francoise Barnes PA Work Phone: [facility] Start: 07-17-2024 End: 07-17-2024 Bamboo flowsheet Francoise Barnes PA Work Phone: [facility] Start: 07-17-2024 End: 07-17-2024 Office outpatient visit 15 minutes Francoise Barnes PA Work Phone: [facility] Comment on above: Thrush, oral Start: 07-17-2024 End: 07-17-2024 ambulatory FRANCOISE BARNES Not Available Start: 07-04-2024 End: 07-04-2024 Refill Francoise Barnes PA Work Phone: [facility] Comment on above: Chronic pain of both knees Start: 06-26-2024 End: 06-26-2024 Bamboo flowsheet Placido Mendez CONTACT CENTER DIRECTOR Work Phone: [facility] Start: 06-26-2024 End: 06-26-2024 Bamboo flowsheet Placido Mendez CONTACT CENTER DIRECTOR Work Phone: [facility] Start: 06-26-2024 End: 06-26-2024 ambulatory PLACIDO MENDEZ Not Available Start: 06-26-2024 End: 06-26-2024 Office outpatient visit 25 minutes Placido Mendez CONTACT CENTER DIRECTOR Work Phone: [facility] Comment on above: Thrush, oral (Primar y Dx); Left-sided epistaxis; Fall in home, initial encounter Start: 06-24-2024 End: 06-24-2024 ambulatory Najma Richardson MD Facility:[facility] Start: 06-10-2024 End: 06-10-2024 ambulatory Najma Richardson MD Facility:[facility] Start: 06-03-2024 End: 06-03-2024 Office outpatient visit 25 minutes Coy Hung MD Work Phone: [facility] Comment on above: Hypoglycemia (Primar y Dx); S/P gastric bypass; IFG (impaired fasting glucose); Weight gain; Encounter for dietary consultation; Class 3 severe obesity due to excess calories with serious comorbidity and body mass index (BMI) of 50.0 to 59.9 in adult (CMS/[facility]) Start: 06-03-2024 End: 06-03-2024 ambulatory COY HUNG Not Available Start: 05-31-2024 End: 06-03-2024 Clinisync Result Encounter Generic External Data Provider [facility] External Department Unsolicited Start: 05-31-2024 End: 06-03-2024 Clinisync Result Encounter Generic External Data Provider [facility] External Department Unsolicited Start: 05-27-2024 End: 05-27-2024 ambulatory Najma Richardson MD Facility:[facility] Start: 05-21-2024 End: 05-21-2024 Telephone encounter Francoise MARTINEZ Work Phone: [facility] Start: 05-14-2024 End: 05-14-2024 Telephone encounter Lorri Rincon LPN Work Phone: [facility] Start: 05-09-2024 End: 05-09-2024 Bamboo flowsheet Francoise MARTINEZ Work Phone: [facility] [...] to other mental disorder; Benign essential hypertension ([facility]); Morbid obesity ([facility]); Neck pain; Episodic migraine ([facility]) Start: 05-09-2024 End: 05-09-2024 ambulatory FRANCOISE Del Castillo HEMMER Not Available Start: 05-06-2024 End: 05-06-2024 ambulatory Najma Richardson MD Facility: [place] Start: 05-01-2024 End: 05-01-2024 Refill Francoise Barnes PA Work Phone: [facility] Comment on above: Chronic pain of both knees Start: 02-12-2024 End: 02-12-2024 ambulatory Najma Richardson MD Facility: [place] Start: 01-31-2024 End: 01-31-2024 ambulatory FRANCOISE M HEMMER Not Available Start: 01-23-2024 End: 01-23-2024 ambulatory FRANCOISE M HEMMER Not Available Start: 01-04-[address] [facility] Start: 12-29-[address] [facility] Start: 2023 End: 2023 ambulatory [facility] Start: 12-12-2023 End: 12-12-2023 ambulatory GERMAINE BRANCHVELY Not Available Start: 12-04-2023 End: 12-04-2023 ambulatory Najma Richardson MD Facility: [place] Start: 11-21-2023 End: 11-21-2023 ambulatory FRANCOISE M HEMMER Not Available Start: 10-31-2023 End: 10-31-2023 ambulatory FRANCOISE M HEMMER Not Available Start: 10-23-2023 End: 10-23-2023 ambulatory Najma Richardson MD Facility: [place] Start: 09-25-2023 Refill Francoise Barnes PA Work Phone: [facility] Comment on above: Chronic pain of both knees Start: 09-19-2023 End: 09-19-2023 Patient encounter procedure [facility] [place] Work Phone: Start: 09-19-2023 End: 09-19-2023 ambulatory NON STAFF [facility] Work Phone: Start: 07-17-2023 Registered [facility] Start: 11-07-2022 End: 11-08-[address] FRANCOISE BARNES Facility: Start: 06-27-2022 End: 06-27-2022 ambulatory SUNSHINE NEWMAN . Facility: Start: 04-27-2022 End: 10-26-2022 ambulatory FRANCOISE BARNES [place] Start: 04-22-[address] FRANCOISE BARNES Facil ity:[facility]1 Start: 11-05-2021 End: 11-05-2021 Emergency department patient visit Tyler Suazoandrea [place] Start: 09-18-2018 Patient encounter procedure Ida Weber Facility:[id number] Start: 05-08-2018 Patient encounter procedure Ida Weber Facility:[id number] Start: 02-13-2018 End: 02-16-2018 Ambulatory FRANCOISE BARNES [facility] Start: 12-19-2017 Patient encounter procedure Ida Cristinatommy Weber Facility:[id number] Procedures Date Procedure Procedure Detail Performing Clinician Start: 07-25-2024 End: 07-25-2024 Needle emg ea extremty w/paraspinl area complete Arie Plascencia DO Work Phone: Start: 06-03-2024 Gluc bld gluc mntr dev cleared fda spec home use Coy Hung MD Work Phone: Start: 05-31-2024 Bacteria identified [...] 1:30 PM EDT Office Visit [facility] [address] [place] [phone] Coy Hung MD [address] [place] [id number] [facility] Start: 10-15-2024 End: 10-15-2024 Patient encounter procedure 10/15/2024 8:00 AM EST Office Visit DAMIR DONOHUE [address] [place] [address] Arie Plascencia DO [address] [place] [address] DAMIR DONOHUE Start: 08-08-2024 End: 08-08-2024 Patient encounter procedure 08/08/2024 11:30 AM EST Office Visit [facility] [address] [place] [address] Francoise Barnes PA [address] [place] [address] [facility] Start: 07-25-2024 End: 07-25-2024 Patient encounter procedure [facility] [place] [facility] Comment on above: Arrived Start: 07-17-2024 End: 07-17-2024 Patient encounter procedure 07/17/2024 11:30 AM EST Office Visit [facility] [address] [place] [address] Francoise Barnes PA [address] [place] [address] Arrived [facility] Comment on above: Arrived Start: 06-03-2024 End: 06-03-2024 Patient encounter procedure 06/03/2024 1:10 PM EDT Office Visit [facility] [address] [place] [phone] Coy Hung MD [address] [place] [address] [facility] Start: 05-09-2024 End: 05-09-2024 Patient encounter procedure 05/09/2024 11:00 AM EDT Office Visit [facility] [address] [place] [address] Francoise Barnes PA [address] [place] [address] Arrived [facility] Comment on above: Arrived Start: 05-06-2024 End: 05-06-2024 Patient encounter procedure 05/06/2024 2:00 PM EDT Office Visit [facility] [address] [place] [address] Francoise Barnes PA [address] [place] [address] [facility] Start: 04-21-2024 Influenza vaccination Influenza Vacc ine (#1) [facility] Start: 02-18-2024 Influenza vaccination Influenza Vacc ine (#1) [facility] Comment on above: Postponed from 04/21 (Patient Refused) Start: 02-11-2024 Screening for malignant neoplasm of breast Mammogram [facility] Start: 10-25-2023 End: 10-25-2023 Patient encounter procedure 10/25/2023 1:00 PM EST Office Visit [facility] [address] [place] [address] Francoise Barnes, PA [address] [place] [address] [facility] Start: 12-14-2007 Screening for malignant neoplasm of cervix [facility] Start: 1998 Screening for malignant neoplasm of cervix Pap Smear [facility] Start: 1977 Screening for malignant neoplasm of colon [facility] Immunizations Immunization Date Immunization Notes Care Provider [facility] 07-05-2024 influenza, injectabl e, madin andrzej canine kidney, preservative free Francoise Hemmer PA Work Phone: [facility] 05-30-2021 influenza, injectabl e, quadrivalent, preservative free Francoise Hemmer PA Work Phone: [facility] 05-30-2021 influenza virus vacc ine, unspecified formulation Francoise Hemmer PA Work Phone: [facility] 06-12-2020 influenza, injectabl e, quadrivalent, preservative free Francoise Hemmer PA Work Phone: [facility] 12-16-2018 tetanus toxoid, redu brina diphtheria toxoid, and acellular pertussis vaccine, adsorbed Francoise Hemmer PA Work Phone: [facility] Payers Date Payer Category Payer Self-pay [id number] 2022 Medicaid [id number] 2022 Medicaid [id number] 2022 Unknown 2018 Unknown [id number] 2018 Unknown [id number] 1977 Unknown [id number] 2.16. 840.1.098526.3.579.2.356 1977 Unknown [id number] 2.16. 840.1.260453.3.579.2.356 1977 Unknown [id number] 2.16. 840.1.914334.3.579.2.356 1977 Unknown [id number] 2.16.8 40.1.142394.3.579.2.727 1977 Unknown [id number] 2.16.8 40.1.162468.3.579.2.727 1977 Unknown [id number] 2.16.84 0.1.960403.3.579.2.593 1977 Unknown [id number] 2.16.84 0.1.320379.3.579.2.593 1977 Unknown [id number] 2.16.84 0.1.561048.3.579.2.593 1977 Unknown [id number] 2.16.8 40.1.744716.3.579.2.1285 1977 Unknown [id number] 2.16.8 40.1.404230.3.579.2.1285 1977 Unknown [id number] 2.16.8 40.1.047248.3.579.2.1285 1977 Unknown [id number] 2.16.8 40.1.031210.3.579.2.1285 1977 Unknown [id number] 2.16.8 40.1.926534.3.579.2.1285 1977 Unknown [id number] 2.16.8 40.1.465408.3.579.2.1285 1977 Unknown [id number] 2.16.8 40.1.108464.3.579.2.1285 1977 Unknown [id number] 2. 840.1.288911.3.579.2. 1977 Unknown [id number] 2. 840.1.368625.3.579.2. 1977 Unknown [id number] 2. 840.1.554125.3.579.2. 1977 Unknown [id number] 2. 840.1.911129.3.579.2. 1977 Unknown [id number] 2.16 840.1.987948.3.579.2. 1977 Unknown [id number] 2.16 840.1.638416.3.579.2. 1977 Unknown [id number] 2.16 840.1.149571.3.579.2.196 1977 Unknown [id number] 2.16.84 0.1.426114.3.579.2.1258 1977 Unknown [id number] 2.16.84 0.1.784503.3.579.2.1258 1977 Unknown [id number] 2.16.84 0.1.260250.3.579.2.1258 1977 Unknown [id number] 2.16.84 0.1.790502.3.579.2.1258 1977 Unknown [id number] 2.16.84 0.1.178362.3.579.2.1258 1977 Unknown [id number] 2.16.84 0.1.281535.3.579.2.1258 1977 Unknown [id number] 2.16.84 0.1.398061.3.579.2.1258 1977 Unknown [id number] 2.16.84 0.1.006920.3.579.2.1258 1977 Unknown [id number] 2.16.84 0.1.712996.3.579.2.1258 1977 Unknown [id number] 2.16.84 0.1.040640.3.579.2.1258 1977 Unknown [id number] 2.16.84 0.1.345764.3.579.2.1258 1977 Unknown [id number] 2.16.84 0.1.717715.3.579.2.1258 1977 Unknown [id number] 2.16.84 0.1.271098.3.579.2.1259 1959 Unknown [id number] Unknown [id number] 2.16.8 40.1.443764.3.579.2.531 Unknown [id number] 2.16.8 40.1.318272.3.579.2.531 Social History Date Type Detail Facility Tobacco smoking stat [facility] Unknown if ever smoked [facility] Work Phone: Start: 1975 Sex Assigned At Female F [facility] Start: 09-18-2018 End: 01-23-2023 Tobacco smoking status NHIS Never smoked tobacco (finding) [facility] Start: 01-23-2023 Tobacco use and exposure Smokeless tobacco non-user [facility] Start: 07-26-2023 End: 09-08-2024 Alcohol intake Ex-drinker (finding) [facility] Start: 01-24-2023 End: 07-26-2023 History of Social function [facility] Start: 01-24-2023 End: 07-26-[address] [facility] Start: 04-26-2023 Alcohol Comment Caffeine intake: sod a [facility] Start: 1975 Sex Assigned At Not on file N [facility] Clinical Notes 06-28-2021 to 09-09-2024 Tonya Gibbs NP - 09/09/2024 12:00 PM Mildred Gibbs NP - 09/08/2024 12:30 PM James Valencia MA - 09/08/2024 12:30 PM ESTTeleNUNO Pratt - 09/02/2024 10:47 AM EST Note Date & Type Note Facility 09-09-2024 History of Presen t illness Narrative HPI: Historian of HPI: patient Marilee Arriaga is a 48 y.o. female who presents today to the Urgent Care with the following ophthalmology complaints and denials which have been present for 2 day(s) and affecting left eye(s) pt admits to a headache as well. Pt is unsure what has caused the eye pain, no known injuries. Pt rates her pain a 4/10 today. Pt states the headache and pain has improved. C/O Denies Symptom Comments [x] [] Red eye [x] [] Eye swelling Left side of face swollen as well. [] [x] Eye itching [] [x] FB sensation [] [x] Blurry vision [] [x] Double vision [] [x] auras [] [x] drainage [] [x] Crusting in the morning [] [x] Burning sensation [x] [] pain Additional Comments: pt has taken nertec migraine and tylenol OTC medication without relief IH Testing: Vision test performed in office Distance Vision Left 20 / 25 Right 20 / 30 Both 20 / 30 corrected w/ glasses General Examination: GENERAL EXAMINATION: alert, oriented, normal affect, well-appearing, in no acute distress, well developed, well nourished. HEAD: normocephalic, atraumatic. EYES: PERRLA, EOMI, eversion of lids WNL, sclera and conjuctiva injected on the left, with no discharge (improved from yesterday). EARS: auditory canal clear tympanic membrane intact, clear. NOSE: no lesions nares patent. ORAL CAVITY: no lesions mucosa moist. Mild erythema to roof of mouth. THROAT: clear Skin: no rash to scalp, face or around eye NECK/THYROID: neck supple, full range of motion. LYMPH NODES: no cervical adenopathy. HEART: no murmurs, regular rate and rhythm, S1, S2 normal. LUNGS: clear to auscultation bilaterally. EXTREMITIES: no edema, no cyanosis. Neuro: no tenderness to face or scalp. Neuro exam grossly intact PSYCH: alert, oriented cognitive function intact cooperative with exam. 1. Acute conjunctivitis of left eye, unspecified acute conjunctivitis type (Primary) Diagnosis and treatment reviewed. She was able to start the genamicin drops. The dexamethasone drops are being ordered. She notes improvement with antibiotic drops. Continue drops as directed. Immediate eval for new or worsening symptoms. Follow-up with PCP if no improvement in 48 hours. 2. Acute nonintractable headache, unspecified headache type Diagnosis and treatment reviewed. Patient states her headache is resolved today. documented in this encounter [facility] 09-08-2024 History of Presen t illness Narrative HPI: Historian of HPI: patient Marilee Arriaga is a 48 y.o. female who presents today to the Urgent Care with the following ophthalmology complaints and denials which have been present for 1 day(s) and affecting left eye(s) pt admits to a headache as well. Pt is unsure what has caused the eye pain, no known injuries. Pt states she woke up yesterday with a red eye and swelling. Pt rates her pain a 7/10 today. Pt admits to numbness on her left side of her pain. C/O Denies Symptom Comments [x] [] Red eye [x] [] Eye swelling Left side of face swollen as well. [] [x] Eye itching [] [x] FB sensation [] [x] Blurry vision [] [x] Double vision [] [x] auras [] [x] drainage [] [x] Crusting in the morning [] [x] Burning sensation [x] [] pain Additional Comments: pt has taken nertec migraine and tylenol OTC medication without relief ROS: A complete system ROS was performed and negative aside from the pertinent positives noted in the HPI and PE. IH Testing: Vision test performed in office Distance Vision Left 20 / 40 Right 20 / 40 Both 20 / 30 corrected w/ glasses EXAMINATION General Examination: GENERAL EXAMINATION: alert, oriented, normal affect, well-appearing, in no acute distress, well developed, well nourished. HEAD: normocephalic, atraumatic. EYES: PERRLA, EOMI, eversion of lids WNL, sclera and conjuctiva injected on the left, with no discharge. Left eye anesthetized with tetracaine. Eye stained with fluorescein. No scratch or ulcer noted. No other abnormal uptake of staining noted. EARS: auditory canal clear tympanic membrane intact, clear. NOSE: no lesions nares patent. ORAL CAVITY: no lesions mucosa moist. THROAT: clear Skin: no rash to scalp, face or around eye NECK/THYROID: neck supple, full range of motion. LYMPH NODES: no cervical adenopathy. HEART: no murmurs, regular rate and rhythm, S1, S2 normal. LUNGS: clear to auscultation bilaterally. EXTREMITIES: no edema, no cyanosis. Neuro: no tenderness to face or scalp. Neuro exam grossly intact PSYCH: alert, oriented cognitive function intact cooperative with exam. 1. Acute conjunctivitis of left eye, unspecified acute conjunctivitis type (Primary) Advised on supportive therapies, including gently wiping d/c from eye w/ tissue from medial to lateral, changing pillowcases daily, refraining from wearing contact lenses and eye make-up until treatment is completed, disposing of contact lenses and eye make-up, refraining from sharing hand towels, and thorough handwashing w/ soap and water. To ED for vision changes. F/u with UC tomorrow for recheck. - gentamicin (Garamycin) 0.3 % ophthalmic solution; Administer 1 drop into the left eye in the morning and 1 drop in the evening and 1 drop before bedtime. Do all this for 5 days. Dispense: 5 mL; Refill: 0 - dexAMETHasone (Decadron) 0.1 % ophthalmic suspension; Administer 1 drop into the left eye in the morning and 1 drop in the evening and 1 drop before bedtime. Do all this for 5 days. Dispense: 5 mL; Refill: 0 - ketorolac (Toradol) injection 60 mg 2. Acute nonintractable headache, unspecified headache type Diagnosis and possible etiologies discussed. Toradol injection given today. The patient has a history migraines, but reports this headache is different. Possible etiologies discussed to include viral illness, tension headache, secondary to conjunctivitis. To ER for red flag symptoms. RTC tomorrow for recheck. Patient ID: Marilee Arriaga is a 48 y.o. female. Procedures Left Eye was successful. 5ML saline water used. documented in this encounter [facility] 09-02-2024 Telephone encounter Note OARRS reviewed, Rx sent into patient's pharmacy. [facility] 09-02-2024 Miscellaneous Notes OARRS reviewed, Rx sent into patient's pharmacy. Last OV 08-08-24 Last RF 07-04-24 documented in this encounter [facility] 09-02-2024 Telephone encounter Note Last OV 08-08-24 Last RF 07-04-24 [facility] 08-27-2024 Telephone encounter Note Metoprolol sent. [facility] 08-27-2024 Miscellaneous Notes Metoprolol sent. documented in this encounter [facility] 08-27-2024 Telephone encounter Note CGM sensors sent. [facility] 08-27-2024 Miscellaneous Notes CGM sensors sent. documented in this encounter [facility] 08-08-2024 History of Presen t illness Narrative [...] HOURS NEEDED 90 g 11 ARIPiprazole ER (Simaliaislinn Maintena) 400 MG injection syringe Inject 400 mg into the shoulder, thigh, or buttocks. Once a month busPIRone (Buspar) 30 MG tablet Take 30 mg by mouth every 12 (twelve) hours. Caplyta 42 MG capsule Take 1 capsule by mouth in the morning. cholecalciferol (Vitamin D-3) 250 MCG (88350 UT) capsule TAKE 1 CAPSULE BY MOUTH ONCE A DAY AT THE SAME TIME. 100 capsule 3 Continuous Blood Gluc Thermal Technician (FreeStyle Samreen 2 Crockett) device USE DIRECTED Continuous Blood Gluc Sensor [...] FOR MIGRAINES 8 tablet 5 nystatin (Mycostatin) 473236 UNIT/GM powder Apply 1 application topically Daily [...] at bedtime for sleep [DISCONTINUED] nystatin (Mycostatin) 397159 UNIT/ML suspension Take 4 mL (400,000 Units) [...] adequate control of her migraines. Sent in [facility] for patient due to migraines uncontrolled. Obstructive [...] Medication Follow Up. documented in this encounter [facility] 07-25-2024 History of Presen t illness Narrative Images from the original note were not included. Reason for Appointment: EMG Patient: Marilee Arriaga : 1975 EMG Computer: [facility] Referring Physician: Simona Szymanski NP EMG: MARIANA barrel rifler hook: Larry Mallory RT(R) Office Location: [place] Reason for EMG: c/o numbness/tingling in left foot/leg, cramping in left leg, low back pain that radiates down left leg. Hx of surgery to right knee. No hx of DM. Not on blood thinners. Comments: Procedure was explained to the patient & female operator bearer systems who expressed understanding. Patient appeared to have tolerated the test well despite some discomfort due to the nature of the test. documented in this encounter [facility] 07-17-2024 History of Presen t illness [...] the morning. cholecalciferol (Vitamin D-3) 250 MCG (06823 UT) capsule TAKE 1 CAPSULE BY MOUTH ONCE A DAY AT THE SAME TIME. 100 capsule 3 Continuous Blood Gluc Thermal Technician (FreeStyle Samreen 2 Crockett) device USE DIRECTED Continuous Blood Gluc Sensor [...] FOR MIGRAINES 8 tablet 5 nystatin (Mycostatin) 054600 UNIT/GM powder Apply 1 application topically Daily [...] Take 15 mg daily [DISCONTINUED] nystatin (Mycostatin) 938579 UNIT/ML suspension Take 4 mL (400,000 Units) [...] this visit: Thrush, oral - nystatin (Mycostatin) 046693 UNIT/ML suspension; Take 4 mL (400,000 Units) [...] Appointment As Scheduled. documented in this encounter [facility] 07-04-2024 Telephone encounter Note OARRS reviewed, Rx sent into patient's pharmacy. [facility] 07-04-2024 Miscellaneous Notes OARRS reviewed, Rx sent into patient's pharmacy. documented in this encounter [facility] 06-26-2024 History of Presen t illness [...] the morning. cholecalciferol (Vitamin D-3) 250 MCG (65079 UT) capsule TAKE 1 CAPSULE BY MOUTH ONCE A DAY AT THE SAME TIME. 100 capsule 3 Continuous Blood Gluc Thermal Technician (FreeStyle Samreen 2 Crockett) device USE DIRECTED Continuous Blood Gluc Sensor [...] FOR MIGRAINES 8 tablet 5 nystatin (Mycostatin) 179553 UNIT/GM powder Apply 1 application topically Daily [...] BORIS Horton NP documented in this encounter [facility] 06-26-2024 Instructions Placido Mendez NP - 06/26/2024 1:30 PM EST Nystatin swish and spit as directed Saline nasal spray documented in this encounter [facility] 06-03-2024 History of Presen t illness Narrative Marilee Arriaga is a 48 y.o. female Coy Hung MD presents with chief complaint of Diabetes [...] capsule, Daily cholecalciferol (Vitamin D-3) 250 MCG (69470 UT) capsule TAKE 1 CAPSULE BY MOUTH ONCE A DAY AT THE SAME TIME. Continuous Blood Gluc Thermal Technician (Cargomatic Samreen 2 Crockett) device USE DIRECTED Continuous Blood Gluc Sensor [...] EVERY DAY NEEDED FOR MIGRAINES nystatin (Mycostatin) 781130 UNIT/GM powder 1 application , Topical, Daily, [...] (BMI) of 50.0 to 59.9 in adult ([facility]) Follow up in about 6 months (around 12/02/2024). documented in this encounter [facility] 05-21-2024 Telephone encounter Note Called and spoke with Enma, who connected me with pharmacistNena. She states there are no claims billed for Imitrex during the time period in 2022 originally given for pt. Needs dates the Imitrex was filled and the pharmacy where it was filled so it can be verified that she took the medication. Filled 12/11/2017, 04/07/2018, 04/07/2020 at [facility]. Called back and spoke with Sj, who connected me with pharmacistNena. They will look into this and verify the claims and fax new determination to the office. [facility] 05-21-2024 Miscellaneous Notes Called and spoke with Enma, who connected me with pharmacistNena. She states there are no claims billed for Imitrex during the time period in 2022 originally given for pt. Needs dates the Imitrex was filled and the pharmacy where it was filled so it can be verified that she took the medication. Filled 12/11/2017, 04/07/2018, 04/07/2020 at [facility] in [place]. Called back and spoke with Sj, who connected me with pharmacistNena. They will look into this and verify the claims and fax new determination to the office. documented in this encounter [facility] 05-14-2024 Telephone encounter Note Called and did appeal for [facility]. Advised took Maxalt 10 mg 01/31/2024 through 05/09/2024, Imitrex 01/23/2023 through 07/26/2023. Claim will be resubmitted. [facility] 05-14-2024 Miscellaneous Notes Called and did appeal for [facility]tec. Advised took Maxalt 10 mg 01/31/2024 through 05/09/2024, Imitrex 01/23/2023 through 07/26/2023. Claim will be resubmitted. [facility]tec DENIED. Can do appeal by calling [phone]. documented in this encounter [facility] 05-14-2024 Telephone encounter Note [facility]tec DENIED. Can do appeal by calling [phone]. [facility] 05-09-2024 Telephone encounter Note [facility] resent. [facility] 05-09-2024 Miscellaneous Notes N[facility]tec resent. documented in this encounter [facility] 05-09-2024 History of Presen t illness [...] HOURS NEEDED 90 g 11 ARIPiprazole ER (Abiliffabián Maintena) 400 MG injection syringe Inject 400 mg into the shoulder, thigh, or buttocks. Once a month busPIRone (Buspar) 30 MG tablet Take 30 mg by mouth every 12 (twelve) hours. Caplyta 42 MG capsule Take 1 capsule by mouth in the morning. cholecalciferol (Vitamin D-3) 250 MCG (50421 UT) capsule TAKE 1 CAPSULE BY MOUTH ONCE A DAY AT THE SAME TIME. 100 capsule 3 Continuous Blood Gluc Thermal Technician (FreeStyle Samreen 2 Crockett) device USE DIRECTED Continuous Blood Gluc Sensor [...] OR CHEW 100 tablet 3 nystatin (Mycostatin) 921169 UNIT/GM powder Apply 1 application topically Daily [...] at bedtime for sleep [DISCONTINUED] nystatin (Mycostatin) 656813 UNIT/GM powder Apply 1 application topically in [...] Medication Follow Up. documented in this encounter [facility] 05-01-2024 Telephone encounter Note OARRS reviewed, Rx sent into patient's pharmacy. [facility] 05-01-2024 Miscellaneous Notes OARRS reviewed, Rx sent into patient's pharmacy. documented in this encounter [facility] 09-25-2023 Telephone encounter Note OARRS reviewed, Rx sent into patient's pharmacy. [facility] 09-25-2023 Miscellaneous Notes OARRS reviewed, Rx sent into patient's pharmacy. documented in this encounter [facility] 06-27-2022 Note PROCEDURE: XR FOOT L [...] authenticated by: EM LÓPEZ Date: 2022-06-27 15:38 [facility] 06-28-2021 Note HNO ID: [id number] Author: Em Fernandez, PhD Service: ? Author [...] medical records for scanning. Em Fernandez, psychologist [facility] Evaluation note No assessment inform ation available [facility] Work Phone: Evaluation note Diagnosis Chronic pain of both knees documented in this encounter [facility] Healthcare[facility]* Diagnosis Hypoglycemia- Primary Hypoglycemia, unspecified S/P gastric bypass Bariatric surgery status IFG (impaired fasting glucose) Weight gain Other symptoms concerning nutrition, metabolism, and development Encounter for dietary consultation Class 3 severe obesity due to excess calories with serious comorbidity and body mass index (BMI) of 50.0 to 59.9 in adult ([facility]) documented [facility] [...] Morbid obesity documented in [facility]* Diagnosis Impaired fasting glucose- Primary Hypoglycemia Hypoglycemia, unspecified documented [facility]* Diagnosis Benign essential hypertension (CMS/HCC) Essential hypertension, benign documented [facility]* Diagnosis Chronic pain of both knees documented in this [facility]* Diagnosis Acute conjunctivitis of left eye, unspecified acute conjunctivitis type- Primary Acute nonintractable headache, unspecified headache type documented in this encounter [facility]* Diagnosis Acute conjunctivitis of left eye, unspecified acute conjunctivitis type- Primary Acute nonintractable headache, unspecified headache type [facility] N[facility]* Other Medical (Routine) - Closed Specialty Diagnoses / Procedures Referred By Contcinthia t Referred To Contact Neurology Diagnoses Low back pain, unspecified Procedures IN NERVE CONDUCTION STUDIES 9-10 STUDIES IN NEEDLE EMG EA EXTREMTY W/PARASPINL AREA COMPLETE Simnoa Szymanski NP [address] [place] [id number] Phone: tel: fax: Arie Plascencia, [address] [place] [address] Phone: tel: fax: Referral ID Status Reason Start Date Expiration Date V isits Requested Visits Authorized [id number] Closed Perform Procedure 07/04/2024 12/31/2024 1 1 [facility] Summary Purpose Family History No [...] t Referred To Contact Diagnoses Episodic migraine (CMS/HCC) Francoise Barnes, PA [address] [facility] [address] [place] [address] Referral ID Status Reason Start Date Expiration Date Visits Re quested Visits Authorized [id number] Closed 1 1 Referral ID Status Reason Start Date Expiration Date V isits Requested Visits Authorized [id number] Pending Review 1 1 Additional Source Comments INFORMATION SOURCE (unrecogn ized section and content) DATE CREATED AUTHOR 02/14/2018 [facility] DATE CREATED AUTHOR AUTHOR'S ORGANIZ ATION 02/16/2018 [facility] DATE CREATED AUTHOR AUTHOR'S ORGANIZ ATION 10/09/2018 [facility] DATE CREATED AUTHOR AUTHOR'S ORGANIZ ATION 10/11/2021 [facility] DATE CREATED AUTHOR AUTHOR'S ORGANIZ ATION 10/28/2022 [facility] DATE CREATED AUTHOR AUTHOR'S ORGANIZ ATION 11/13/2022 [facility] DATE CREATED AUTHOR AUTHOR'S ORGANIZ ATION 01/09/2024 [facility] DATE CREATED AUTHOR AUTHOR'S ORGANIZ ATION 06/29/2024 [facility] DATE CREATED AUTHOR AUTHOR'S ORGANIZ ATION 09/10/2024 [facility] DATE CREATED AUTHOR AUTHOR'S ORGANIZ ATION 09/17/2024 [facility] Goals (unrecognized section and [...] September 19, 2023 End: September 19, 2023 Tapering Machine Operator Relationship Specialty Start Date End Date Shalini Coffey MD [address] [address] PCP - General Family Medicine 08/05/23 Tapering Machine Operator Relationship Specialty Start Date End Date Shalini Coffey MD [address] [facility] [address] [place] [address] PCP - General Family Medicine 08/05/23 Tapering Machine Operator Relationship Specialty Start Date End Date Shalini Coffey MD [address] [facility] [address] [place] [address] PCP - General Family Medicine 08/05/23 Tapering Machine Operator Relationship Specialty Start Date End Date Shalini Coffey MD [address] [facility] [address] [place] [address] PCP - General Family Medicine 08/05/23 Tapering Machine Operator Relationship Specialty Start Date End Date Shalini Coffey MD [address] [facility] [address] [place] [address] PCP - General Family Medicine 08/05/23 Tapering Machine Operator Relationship Specialty Start Date End Date Shalini Coffey MD [address] [facility] [address] [place] [address] PCP - General Family Medicine 08/05/23 Tapering Machine Operator Relationship Specialty Start Date End Date Shalini Coffey MD [address] [facility] [address] [place] [address] PCP - General Family Medicine 08/05/23 Tapering Machine Operator Relationship Specialty Start Date End Date Shalini Coffey MD [address] [facility] [address] [place] [address] PCP - General Family Medicine 08/05/23 Tapering Machine Operator Relationship Specialty Start Date End Date Shailni Coffey MD [address] [facility] [address] [place] [address] PCP - General Family Medicine 08/05/23 Tapering Machine Operator Relationship Specialty Start Date End Date Shalini Coffey MD [address] [facility] [address] [place] [address] PCP - General Family Medicine 08/05/23 Tapering Machine Operator Relationship Specialty Start Date End Date Shalini Coffey MD [address] [facility] [address] [place] [address] PCP - General Family Medicine 08/05/23 Tapering Machine Operator Relationship Specialty Start Date End Date Shalini Coffey MD [address] [facility] [address] [place] [address] PCP - General Family Medicine 08/05/23 Tapering Machine Operator Relationship Specialty Start Date End Date Shalini Coffey MD [address] [facility] [address] [place] [address] PCP - General Family Medicine 08/05/23 Tapering Machine Operator Relationship Specialty Start Date End Date Shalini Coffey MD [address] [facility] [address] [place] [address] PCP - General Family Medicine 08/05/23 Reason [...] Med Change Request Reason Comments Migraine Insomnia Reason Onset Date Comments Med Refill 08/27/2024 FOR RECORDS PERTAINING TO PATIENTS WHO ARE [...] BE BASED ON THE PRIMARY CLINICAL RECORDS. [employer] provides no warranty or guarantee of the accuracy or completeness of information in this document.
[2024-09-18 22:51] VITALS: BP 142/97; PULSE 113; TEMP 36.4; O2SAT 94; BMI 59.1
--- NOTE | 2024-09-18 23:12 | ED_ITS ---
HPI - Nausea/Vomiting/Diarrhea General Chief complaint: Nausea/Vomiting/Diarrhea Stated complaint: Nausea/Vomiting/Diarrhea Time Seen by Provider: 09/18/24 22:47 Source: patient Mode of arrival: walk-in History of Present Illness HPI Narrative: 48-year-old female presents to the emergency department for nausea vomiting and diarrhea. She has had the diarrhea for a week and the vomiting for 2 to 3 days. Multiple family members have had the same issue. No hematemesis or hematochezia. She has not had a fever. She saw her PCP who prescribed Phenergan and she is taking Zofran as well. Related Data Home Medications ?Medication ?Instructions ?Recorded ?Confirmed acetaminophen 650 mg 650 mg PO Q12H PRN pain 02/13/23 06/24/24 tablet,extended release (Tylenol Arthritis Pain) aripiprazole 400 mg suspension, 400 mg IM Q28D 02/13/23 06/24/24 extended rel.intramuscular syringe ([address]) buspirone 30 mg tablet 30 mg PO TID 02/13/23 06/24/24 lumateperone 10.5 mg capsule 42 mg PO DAILY 02/13/23 06/24/24 (Caplyta) tramadol 50 mg tablet 50 mg PO BID PRN pain 02/13/23 06/24/24 trazodone 300 mg tablet 300 mg PO DAILY PRN sleep 02/13/23 06/24/24 venlafaxine 100 mg tablet 300 mg PO DAILY 02/13/23 06/24/24 zolpidem 5 mg tablet (Ambien) 5 mg PO BEDTIME PRN sleep 02/13/23 06/24/24 tizanidine 4 mg tablet 4 mg PO BEDTIME 04/18/23 06/24/24 acarbose 25 mg tablet 25 mg PO DAILY 08/01/23 06/24/24 cholecalciferol (vitamin D3) 250 10,000 unit PO DAILY 08/01/23 06/24/24 mcg (10,000 unit) capsule hydroxyzine pamoate 25 mg capsule 50 mg PO BID 08/01/23 06/24/24 lamotrigine 150 mg tablet 300 mg PO DAILY 12/03/23 06/24/24 metoprolol succinate 25 mg 25 mg PO DAILY 04/04/24 06/24/24 tablet,extended release 24 hr escitalopram oxalate 10 mg tablet 10 mg PO DAILY 05/27/24 06/24/24 (Lexapro) methocarbamol 750 mg tablet 750 mg PO DAILY 06/10/24 06/24/24 Allergies Allergy/AdvReac Type Severity Reaction Status Date / Time erythromycin base (From Allergy Unknown Unknown Verified 09/18/24 23:00 E-Mycin) Penicillins Allergy Unknown Unknown Verified 09/18/24 23:00 shellfish derived Allergy Unknown Unknown Verified 09/18/24 23:00 Sulfa (Sulfonamide Allergy Unknown Unknown Verified 09/18/24 23:00 Antibiotics) codeine Allergy Unknown Verified 09/18/24 23:00 Review of Systems ROS Narrative A ten point review of systems is negative except as noted above. PFSH PFSH Medical History Surgical History S/P endometrial ablation ?Z98.890 - Other specified postprocedural states (ICD-10) S/P right knee arthroscopy ?Z98.890 - Other specified postprocedural states (ICD-10) H/O gastric bypass ?Z98.84 - Bariatric surgery status (ICD-10) S/P tonsillectomy ?Z90.89 - Acquired absence of other organs (ICD-10) Social History Smoking status: Never smoker Little interest or pleasure in doing things: not at all Feeling down, depressed, or hopeless: not at all Exam Narrative Exam Narrative: Nurses note and vital signs reviewed and patient is not hypoxic. General: The patient appears well and in no apparent distress. Patient is resting comfortably on cart. Skin: Warm, dry, no pallor noted. There is no rash noted. Head: Normocephalic, atraumatic Eye: Normal conjunctiva, no drainage Ears, Nose, Mouth, and Throat: oral mucosa is moist. Nares patent. Cardiovascular: Regular Rate and Rhythm Respiratory: Patient is in no distress, no accessory muscle use, lungs are clear to auscultation, no wheezing, rales or rhonchi Back: non-tender GI: Obese soft and nontender Musculoskeletal: The patient has no evidence of calf tenderness, no pitting edema, symmetrical pulses noted bilaterally Neurological: A&O, normal speech Psychiatric: Cooperative Constitutional Vital Signs, click to edit/add: Last Vital Signs Temp 97.5 F L 09/18/24 22:51 Pulse 113 H 09/18/24 22:51 Resp 20 09/18/24 22:51 BP 142/97 H 09/18/24 22:51 Pulse Ox 94 L 09/18/24 22:51 O2 Del Method Room Air 09/18/24 22:51 Course Vital Signs Vital signs: Vital Signs Temperature 97.5 F L 09/18/24 22:51 Pulse Rate 113 H 09/18/24 22:51 Respiratory Rate 09/18/24 22:51 Blood Pressure 142/97 H 09/18/24 22:51 Pulse Oximetry 94 L 09/18/24 22:51 Oxygen Delivery Method Room Air 09/18/24 22:51 Temperature 97.5 F L 09/18/24 22:51 Pulse Rate 113 H 09/18/24 22:51 Respiratory Rate 09/18/24 22:51 Blood Pressure 142/97 H 09/18/24 22:51 Pulse Oximetry 94 L 09/18/24 22:51 Oxygen Delivery Method Room Air 09/18/24 22:51 MDM - Nausea/Vomiting/Diarrhea MDM Narrative Medical decision making narrative: Blood work is normal. Stool culture and C. difficile were ordered and are pending. She was given IV fluids and IV Zofran and will be discharged home. She has Zofran and Phenergan at home. Treatment diagnosis and follow-up were discussed with the patient. Differential Diagnosis Differential diagnosis: Likely food poisoning, gastroenteritis and dehydration Lab Data Attestation: I reviewed the patient's lab results. Labs: Lab Results 09/18/24 Range/Units 23:20 WBC 11.2 H (4.0-11.0) 10^3/uL RBC 4.73 (4.20-5.40) 10^6/uL Hgb 14.4 (12.0-16.0) g/dL Hct 43.9 (36.0-48.0) % MCV 92.8 (81.0-99.0) fL MCH 30.4 (26.7-34.0) pg MCHC 32.8 (29.9-35.2) g/dL RDW 11.8 (11.0-15.0) % Plt Count 387 (150-450) 10^3/uL MPV 8.6 L (9.5-13.5) fL Neut % (Auto) 65.5 (43.0-75.0) % Lymph % (Auto) 24.9 (20.5-60.0) % [place] % (Auto) 8.4 (1.7-12.0) % Eos % (Auto) 0.7 L (0.9-7.0) % Baso % (Auto) 0.2 (0.2-2.0) % Neut # (Auto) 7.3 H (1.4-6.5) 10^3/uL Lymph # (Auto) 2.8 (1.2-3.8) 10^3/uL [place] # (Auto) 0.9 H (0.3-0.8) 10^3/uL Eos # (Auto) 0.1 (0.0-0.7) 10^3/uL Baso # (Auto) 0.0 (0.0-0.1) 10^3/uL Abs Immat Gran (auto) 0.03 (0.00-0.03) 10^3/uL Imm/Tot Granulo (auto) 0.3 (0.0-0.5) % Sodium 136 (136-145) mmol/L Potassium 3.5 (3.5-5.1) mmol/L Chloride 102 (98-107) mmol/L Carbon Dioxide 29.0 (21.0-32.0) mmol/L Anion Gap 8.5 BUN 9.0 (7.0-18.0) mg/dL Creatinine 0.98 (0.55-1.02) mg/dL Est GFR ( Amer) >60 (>=60 mL/min/1.73m^2) Est GFR (Non-Af Amer) >60 (>=60 mL/min/1.73m^2) BUN/Creatinine Ratio 9.2 Glucose 117 H (74-106) mg/dL Calcium 8.6 (8.5-10.1) mg/dL Discharge Plan Discharge Chief Complaint: Nausea/Vomiting/Diarrhea Clinical Impression: Nausea, vomiting, and diarrhea Patient Disposition: Home, Self-Care Time of Disposition Decision: 00:23 Condition: Good Mode of Transportation: Private Vehicle Prescriptions / Home Meds: No Action acarbose 25 mg tablet 25 mg PO DAILY hydroxyzine pamoate 25 mg capsule 50 mg PO BID cholecalciferol (vitamin D3) 250 mcg (10,000 unit) capsule 10,000 unit PO DAILY lamotrigine 150 mg tablet 300 mg PO DAILY metoprolol succinate 25 mg tablet extended release 24 hr 25 mg PO DAILY methocarbamol 750 mg tablet 750 mg PO DAILY escitalopram oxalate [Lexapro] 10 mg tablet 10 mg PO DAILY Patient Comments: 15mg Caplyta 10.5 mg capsule 42 mg PO DAILY buspirone 30 mg tablet 30 mg PO TID trazodone 300 mg tablet 300 mg PO DAILY PRN (Reason: sleep) venlafaxine 100 mg tablet 300 mg PO DAILY tramadol 50 mg tablet 50 mg PO BID PRN (Reason: pain) zolpidem [Ambien] 5 mg tablet 5 mg PO BEDTIME PRN (Reason: sleep) acetaminophen [Tylenol Arthritis Pain] 650 mg tablet extended release 650 mg PO Q12H PRN (Reason: pain) Abilify Maintena 400 mg suspension,extended rel syring 400 mg IM Q28D tizanidine 4 mg tablet 4 mg PO BEDTIME Print Language: American Instructions: Acute Nausea and Vomiting (ED), Acute Diarrhea (ED) Referrals: SHWETA BARNES [Primary Care Provider] - 1 week
--- NOTE | 2024-09-18 23:30 | PC.NURSE ---
this patient complains of diarrhea for the past 10 days and now nausea. this patient also adds her mother has been sick with diarrhea
[2024-09-18] MEDS: 0.9 % SODIUM CHLORIDE 1,000 ML 1000 ML IV (23:37)
[2024-09-18] MEDS: ONDANSETRON PF 4 MG/2 ML VIAL IV (23:37)
[2024-09-18 23:45] LABS: Basophils Percent Auto 0.2 % (0.2-2.0); Eosinophils Absolute Auto 0.1 10^3/uL (0.0-0.7); Eosinophils Percent Auto 0.7 % (0.9-7.0); Hematocrit 43.9 % (36.0-48.0); Hemoglobin 14.4 g/dL (12.0-16.0); Immature Granulocytes Abs Auto 0.03 10^3/uL (0.00-0.03); Immature Granulocytes Pct Auto 0.3 % (0.0-0.5); Lymphocytes Absolute Auto 2.8 10^3/uL (1.2-3.8); Lymphocytes Percent Auto 24.9 % (20.5-60.0); Mean Corpuscular HGB Conc 32.8 g/dL (29.9-35.2); Mean Corpuscular Hemoglobin 30.4 pg (26.7-34.0); Mean Corpuscular Volume 92.8 fL (81.0-99.0); Mean Platelet Volume 8.6 fL (9.5-13.5); Monocytes Absolute Auto 0.9 10^3/uL (0.3-0.8); Monocytes Percent Auto 8.4 % (1.7-12.0); Neutrophils Absolute Auto 7.3 10^3/uL (1.4-6.5); Neutrophils Percent Auto 65.5 % (43.0-75.0); Platelet Count 387 10^3/uL (150-450); Red Blood Count 4.73 10^6/uL (4.20-5.40); Red Cell Distribution Width 11.8 % (11.0-15.0); White Blood Count 11.2 10^3/uL (4.0-11.0)
[2024-09-18 23:56] LABS: Anion Gap 8.5; BUN Creatinine Ratio 9.2; Calcium 8.6 mg/dL (8.5-10.1); Chloride 102 mmol/L (98-107); Estimated GFR (African America >60 (>=60 mL/min/1.73m^2); Estimated GFR (Non-African Ame >60 (>=60 mL/min/1.73m^2); Glucose 117 mg/dL (74-106); Potassium 3.5 mmol/L (3.5-5.1); Sodium 136 mmol/L (136-145)
--- NOTE | 2024-09-19 00:56 | PC.NURSE ---
i gave this patient verbal and paper discharge orders and this patient voices she to understanding these. at time of discharge this patient voices no concerns and shows no signs of distress
== END 2024-09-19 00:58 | disposition home or self-care (01) ==
PROVIDERS: Emergency Provider Emergency Medicine; PCP Physician Assistant
DX: R11.2 Nausea with vomiting, unspecified (principal); R19.7 Diarrhea, unspecified; Z98.84 Bariatric surgery status
CPT/HCPCS: 36415; 80048; 85025; 87045; 87046; 87427; 87493; 96361; 96374; 99284; J2405

== ENCOUNTER 2024-10-23 10:45 | Outpatient (OUT) | payer MEDICAID, SELFPAY ==
--- OUTSIDE RECORDS SUMMARY | 2024-10-23 10:50 | XMS_ITS | CCD ---
Author Organization [facility] Care Team Providers Care Kidney Puller Name Role Phone FRANCOISE BARNES Unavailable Unavailable JEFERSON, DOUG F Unavailable Unavailable Gus, Ida Evans Attending Unavailable Gus, Ida Evans Attending Unavailable Gus, Ida Evans Attending Unavailable HEMMERFRANCOISE Referring Unavailable HEMMER, FRANCOISE Admitting Unavailable HEMMER, FRANCOISE Primary Care Unavailable HEMMER, FRANCOISE Attending Unavailable HajdariTyler Attending Unavailable HEMKAM, FRANCOISE Primary Care Unavailable TRENT ., SUNSHINE Admitting Unavailable TRENT ., SUNSHINE Attending Unavailable MISC, DR SLOAN Primary Care Unavailable HUDDLESTON, DR EM Snyder Consulting Unavailable TRENT ., SUNSHINE Consulting Unavailable NAELGRANT Consulting Unavailable HEMMER, DR FRANCOISE Del Castillo Admitting Unavailable HEMMER, DR FRANCOISE Del Castillo Attending Unavailable MISC, DR SLOAN Primary Care Unavailable HEMMER, DR FRANCOISE Del Castillo Consulting Unavailable HEMMER, DR FRANCOISE Del Castillo Admitting Unavailable HEMMER, DR RFANCOISE Del Castillo Attending Unavailable NON STAFF Primary Care Provider UnavailMD Jamey Kapoor Attending Provider [phone] MAHIN Szymanski Attending Provider Shalini Coffey MD Primary Care Provider MATTHEW BANGURA Attending Unavailable JEFERSON, DOUG F Referring Unavailable JEFERSON, DOUG F Primary Care Unavailable JEFERSON, DOUG F Referring Unavailable JEFERSON, DOUG F Primary Care Unavailable JEFERSON, DOUG F Referring Unavailable JEFERSON, DOUG F Primary Care Unavailable JEFERSON, DOUG F Referring Unavailable JEFERSON, DOUG F Primary Care Unavailable JEFERSON, DOUG F Referring Unavailable JEFERSON, DOUG F Primary Care Unavailable JEFERSON, DOUG F Referring Unavailable JEFERSON, DOUG F Primary Care Unavailable JEFERSON, DOUG F Referring Unavailable JEFERSON, DOUG F Primary Care Unavailable Debra SIERRA, Andrius Vytautas Attending Unavailable Giedraitis , Andrius Vytautas Attending Unavailable Giedraitis , Andrius Vytautas Attending Unavailable Giedraitis , Andrius Vytautas Attending Unavailable Giedraitis MD, Andrius Vytautas Attending Unavailable Giedraitis , Andrius Vytautas Attending Unavailable Giedraitis , Andrius Vytautas Attending Unavailable Jeferson SIERRA, Doug Minor Primary Care Provider Jamey Morgan Attending Unavailab le Jamey Morgan Admitting Unavailab le NON STAFF Primary Care Unavailable HEMMER, FRANCOISE Del Castillo Attending Unavailable TEMO, ARIE Attending Unavailable MIKY, SIMONA Referring Unavailable HEMMER, FRANCOISE Del Castillo Attending Unavailable HEMMER, FRANCOISE Del Castillo Attending Unavailable OSMELGERMAINE Attending Unavailable HEMMER, FRANCOISE Del Castillo Attending Unavailable HEMMER, FRANCOISE Del Castillo Attending Unavailable HEMMER, FRANCOISE Del Castillo Attending Unavailable DESIREE, AHMALoulou F Attending Unavailable DESIREE, AHMAD F Referring Unavailable PLACIDO MENDEZ Attending Unavailable HEMMER, FRANCOISE Del Castillo Attending Unavailable TEMO, ARIE Attending Unavailable MIKY, SIMONA Referring Unavailable HEMMER, FRANCOISE Del Castillo Attending Unavailable BERNIETONYA Attending Unavailable BERNIE, TONYA Tinsley Attending Unavailable Allergies Allergy Classification Reported Allergen(s) Allergy Type Date of Onset Reaction(s) Facility (1 source) Cephalexin; Translations: [Keflex] Drug Allergy [facility] Repository (20 sources) Clindamycin; Translations: [clindamycin] Drug Allergy 5 Rash, Hives [facility] Repository (20 sources) Codeine; Translations: [codeine] Drug Allergy 5 Itching, Rash [facility] Repository (1 source) NSAIDs; Translations: [NSAIDs] Propensity to adverse reactions (disorder) [facility] Repository (20 sources) Penicillins; Translations: [penicillins] Propensity to adverse reactions (disorder) 5 Hives, Rash [facility] Repository (1 source) Sulfonamides (Antibiotic); Translations: [sulfa drugs] Propensity to adverse reactions (disorder) [facility] Repository (1 source) alot of ATB's, I dont know names; Translations: [alot of ATB's, I dont know names] Propensity to adverse reactions (disorder) [facility] Repository (1 source) Penicillin Drug Allergy [facility] Repository (1 source) Sulfonamides (Antibiotic) Drug allergy (disorder) [facility] Repository (8 sources) Sulfonamides (Antibiotic); Translations: [SULFA (SULFONAMIDE ANTIBIOTICS)] Allergy to substance 5 Hives, [facility] (20 sources) erythromycin base; Translations: [ERYTHROMYCIN BASE] Allergy to substance 7 [facility] (20 sources) Bacitracin / Polymyxin B; Translations: [BACITRACIN-POLY MYXIN B] Drug Allergy 3 [facility] Work Phone: (20 sources) Ciprofloxacin; Translations: [CIPROFLOXACIN] Drug [facility] [address] [facility] ([facility] sources) Erythromycin; Translations: [ERYTHROMYCIN] Drug All[facility] [address] [facility] (20 sources) Penicillin G Drug Allergy 3 [facility] (20 sources) Sulfonamides (Antibiotic) Drug Allergy 5 [facility] (20 sources) Soap; Translations: [SOAP] Allergy to substance 7 Swelling [facility] (5 sources) Grass pollen; Translations: [GRASS POLLEN] Propensity to adverse reactions to drug (disorder) 5 Itching [facility] Repository (5 sources) SHELLF[employer]TAIN[employer]ODUCTS; Translations: [SHELLFISH CONTAINING PRODUCTS] Propensity to adverse reactions to food (disorder) 5 Swelling [facility] Repository (20 sources) rizatriptan Drug Allergy 4 Anxiety [facility] Work Phone: Medications Current Medications Medication [...] the evening. Take with meals. 04/25/2023 Active acetaminophen 325 mg oral capsule (4 sources) take 2 tablets by mouth in the morning acetaminophen 325 mg capsule Take 2 tablets by mouth in the morning. Active [id number] 200 actuat albuterol 0.09 mg/actuat metered dose inhaler (20 sources) beta2-Adrenergic Agonist Start: take 1 puff(s) by mouth every four hours as needed albuterol HFA 90 mcg/act inhaler Indications: Allergic rhinitis, unspecified seasonality, unspecified trigger INHALE 1 PUFF BY MOUTH EVERY 4 HOURS NEEDED 90 g 11 12/26/2023 Active take 1 puff(s) by in halation every four hours as needed albuterol (PROVENTIL HFA;VENTOLIN HFA) 9 0 mcg/actuation inhaler Inhale 1 puff every 4 (four) hours as needed. Active take 1 puff(s) by in halation [...] IM every month May 07, 2018 11:00pm ABILIFY MAINTENA 400 mg suspension,extended rel syring Inject 2 mL (400 mg total) into the appropriate muscle every 28 days. Active blood-glucose meter,continuous misc (4 sources) Start: 02-23-2023 blood-glucose meter,continuous misc USE DIRECTED 02/23/2023 Active busPIRone hydrochloride 30 mg oral tablet (20 [...] once daily cholecalciferol (Vitamin D-3) 250 MCG (59058 UT) capsule Indications: Vitamin D deficiency TAKE 1 CAPSULE BY MOUTH ONCE A DAY AT THE SAME TIME. 100 capsule 3 01/24/2024 Active Start: 02-06-2023 take 1 capsule by mo uth once daily cholecalciferol (Vitamin D-3) 250 MCG (01796 UT) capsule Indications: Vitamin D deficiency Take 1 capsule (250 mcg) by mouth 1 (one) time each day at the same time. 90 capsule 3 02/06/2023 Active take 1 capsule by mo uth in the morning cholecalciferol (VITAMIN D3) 250 mcg (10,000 unit) capsule Take 1 capsule (10,000 Units total) by mouth in the morning. Active Continuous Blood Gluc Receiv er (FreeStyle Samreen 2 [place]) device (20 sources) Start: 02-23-2023 Continuous Blo od Gluc Electrical Checkout Mechanic (FreeStyle [place]reen 2 [place]) device USE DIRECTED 02/23/2023 Active Start: 02-23-2023 Continuous Blo od Gluc Electrical Checkout Mechanic (FreeStyle Samreen 2 [place]) device USE DIRECTED 0 02/23/2023 Active Continuous Glucose Sensor (FreeStyle Samreen 2 Sensor) misc (20 sources) Start: 08-27-2024 Continuous Glu cose Sensor [...] 11:00pm 1.5 ml fremanezumab-vfrm 150 mg/ml auto-injector (15 sources) Start: 08-08-2024 fremanezumab (Ajovy) 225 MG/1.5ML [...] 04/04/2023 Active methocarbamol 750 mg oral tablet (20 sources) Muscle Relaxant Start: 06-10-20 24 take 1 tablet by mouth every twenty-four hours as needed methocarbamol (Robaxin) 750 MG tablet Take 750 mg by mouth Daily as needed 06/10/2024 Active 24 hr metoprolol succinate 25 mg extended release oral tablet (20 sources) beta-Adrenergic Ophelia Start: 04-24-20 24 End: 08-27-19 25 take 1 tablet by [...] sources) Polyene Antifungal Start: 08-12-2024 nystatin (Mycostatin) 815348 UNIT/GM powder Indications: Rash APPLY TO AFFECTED AREA TOPICALLY DAILY NEEDED 60 g 2 08/12/2024 Active Start: 06-26-2024 End: 08-08-2024 nystatin (Mycostatin) 669545 UNIT/ML suspension Indications: Thrush, oral Take 4 mL (400,000 Units) by mouth in the morning and 4 mL (400,000 Units) at noon and 4 mL (400,000 Units) in the evening and 4 mL (400,000 Units) before bedtime. Do all this for 14 days. 224 mL 07/17/2024 08/08/2024 Discontinued (Therapy completed) Start: 05-06-2024 nystatin (Myco statin) 930834 UNIT/GM powder Indications: Rash Apply 1 application topically Daily PRN 60 g 2 05/06/2024 Active nystatin (Mycost atin) 543824 UNIT/GM powder Apply 1 application topically in [...] mg before bedtime. 12/04/2023 05/09/2024 Discontinued (Other) promethazine hydrochloride 25 mg oral tablet (2 sources) Phenothiazine Start: 09-18-2024 End: 09-25-2024 take 1 tablet by mouth every six hours for nausea promethazine (Phenergan) 25 MG tablet Indications: Nausea and vomiting, unspecified vomiting type Take 1 tablet (25 mg) by mouth every 6 (six) hours if needed for nausea or vomiting for up to 7 days 28 tablet 09/18/2024 09/25/2024 Active raNITIdine 150 mg oral tablet (2 [...] needed for severe pain 60 tablet 09/02/2024 Active Start: 09-25-2023 take 1 tablet by [...] pain 60 tablet 0 08/28/2023 09/25/2023 Discontinued take 1 tablet by ayla th at bedtime traMADoL (ULTRAM) 50 mg tablet Take 1 tablet (50 mg total) by mouth in the morning and at bedtime. Active traZODone hydrochloride 150 mg oral tablet (20 [...] the same time. Take with food Active take 1 capsule by [facility] every twenty-four hours in the morning venlafaxine XR (EFFEXOR-XR) 150 mg 24 hr capsule Take 1 capsule (150 mg total) by mouth in the morning. Active vitamin b12 1 mg/ml injectable solution (2 sources) Vitamin B12 Start: 08-15-2017 Cyanocobalamin (Vitamin B-12) (Vitamin B-12) 1,000 mcg/mL Solution Active 1000 MCG IM As Directed August 15, 2017 12:00am zolpidem tartrate 5 mg oral tablet (20 sources) gamma-Aminobutyric Acid-ergic Agonist Start: 10-31-2023 zolpidem (Ambien) 5 MG tablet Indications: Insomnia [...] 09/08/2024 09/13/2024 gentamicin 3 mg/ml ophthalmic solution (6 sources) Start: 09-08-2024 End: 09-18-2024 take 1 drop(s) into the eye(s) in [...] this for 5 days. 5 mL 09/08/2024 09/18/2024 Discontinued (Therapy completed) 2 ml ketorolac tromethamine 30 mg/ml cartridge [...] Date Documented Da te Episodic/Chronic Abdominal pain (7 sources) Right upper quadrant pain; Translations: [Abdominal pain] Onset: 2023 09-18-2024 Episodic Administrative/social admission (4 sources) Patient encounter status; Translations: [Dietary counseling and surveillance] 06-03-2024 Episodic Anxiety disorders (20 sources) Anxiety; Translations: [Anxiety disorder, unspecified] Onset: 05-29-2015 04-26-2023 Chronic Biliary tract disease (2 sources) Cholelithiasis without obstruction; Translations: [Calculus of gallbladder without cholecystitis without obstruction] 09-18-2024 Episodic Coma; stupor; and brain damage (2 sources) [...] of mouth; Translations: [Candidal stomatitis] 06-26-2024 Episodic Nausea and vomiting (2 sources) Nausea and vomiting; Translations: [Nausea with vomiting, unspecified] 09-18-2024 Episodic Nutritional deficiencies (20 sources) Vitamin D deficiency; Translations: [Vitamin D deficiency, unspecified] Onset: 01-23-2023 01-23-2023 Chronic Osteoarthritis (20 sources) Inflammation of joint of foot; Translations: [Primary osteoarthritis, unspecified ankle and foot] Onset: 09-02-2015 01-23-2023 Chronic Other aftercare (2 sources) H/O: high risk medication; Translations: [Other adjunct faculty for medical terminology (current) drug therapy] 10-15-2024 Episodic Other endocrine disorders (20 sources) Hypoglycemia; Translations: [Hypoglycemia, unspecified] Onset: 01-23-2023 01-23-2023 Chronic Other endocrine disorders (20 sources) Polycystic ovary; Translations: [Polycystic ovarian syndrome] Onset: 01-23-2023 01-23-2023 Chronic Other gastrointestinal disorders (20 sources) Intestinal malabsorption; Translations: [Intestinal malabsorption, unspecified] Onset: 01-23-2024 05-16-2017 Chronic Other gastrointestinal disorders (1 source) H/O: GIT by-pass; Translations: [Bariatric surgery status] 05-16-2017 Episodic Other gastrointestinal disorders (2 sources) Diarrhea; Translations: [Diarrhea, unspecified] 09-18-2024 Episodic Other liver diseases (20 sources) Steatosis of liver; Translations: [Fatty (change of) liver, not elsewhere classified] Onset: 04-26-2023 04-26-2023 Chronic Other lower respiratory disease (2 sources) Snoring; Translations: [Snoring] 08-08-2024 Episodic Other nervous system disorders (20 sources) Chronic pain; Translations: [Other chronic pain] Onset: 01-23-2023 01-23-2023 Chronic Other nervous system disorders (4 sources) Polyneuropathy; Translations: [Polyneuropathy, unspecified] 10-15-2024 Chronic Other nervous system disorders (1 source) [...] Chronic Other nutritional; endocrine; and metabolic disorders (4 sources) Severe obesity; Translations: [Class 3 severe [...] unspecified; Translations: [Pain, unspecified] Onset: 12-29-2023 Episodic Spondylosis; intervertebral disc disorders; other back problems (2 sources) Degeneration of lumbar intervertebral disc; Translations: [Degeneration of intervertebral disc of lumbar region with discogenic back pain and lower extremity pain] 10-15-2024 Chronic Unclassified (1 source) Auditory hallucinations; Translations: [...] Can 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 [facility] NVC 9-10 Nerveson 07-25-2024 Polyneuropathy, axon al loss, moderate Can 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 [facility] Glucose (Bld) [Mass/Vol]Orde red By: Avis Ponce on 06-03-2024 Glucose Blood, POC 96 mg/dL [facility] - Hematology and Cell countson 06-03-2024 HbA1c (Bld) [Mass fraction] 5.3 % [facility] No Panel InformationOrdered By: Avis Ponce on 06-03-2024 [facility] URINE CULTURE, ROUTINEon Bacteria identified Cx Nom (U) Urine Culture, Routine [facility] Bacteria identified [facility] (U) Mixed urogenital corina [facility] Bacteria identified [facility] (U) 25,000-50,000 colony forming units per mL [facility] Bacteria identified [facility] (U) Performed at: [facility] Bacteria identified [facility] Nom (U) [address], [place] [id number] [facility] Bacteria identified [facility] (U) Surveying Technician: Yash Marcum PhD, Phone: [phone] [facility] [place] Biliary ducts and Gallbla dder Views for patency of biliary structures and ejection fraction W sincalide and W radionuclide Peyman 12-29-2023 Radiology Study observation (narrative) [facility] Abdomen limitedon 024 Radiology Study observation (narrative) [facility] [place] Biliary ducts and Gallbla dder Views for patency of biliary structures and ejection fraction W sincalide and W radionuclide Peyman 12-28-2023 [facility] Abdomen limitedon 024 [facility] ECHOCARDIO M/2D COMPLETEon 0 11-07-2022 ECHOCARDIO M/2D COMPLETE Patient: MARILEE ARRIAGA Exam Date: 11/07/2022 : 1975 Gender:F Ordering : DR FRANCOISE BARNES [place] Admission #: [id number] Family : Order #: [id number] CLICK HERE TO VIEW EXAM ECHOCARDIOGRAM REPORT [...] Shay Masters M.D. on 11/07/2022 at 19:16 [facility] Coding Summary.on 05-04-2022 Coding Summary. CD:[id number] Gh0bWw+PG hlYWQ+TZ7EJYOlS60nrPDwyS5WU2a JQF8JUJLTMAZDHS6RQZ5kjFV4LTwx V8WiehTr WkpmcPErSZ42ZIe3HAU4gBsoIMqdb U3aaDRrY4d0WqEaZS33jO77VNstIM PpGqB7UiSwsgdokYHg Y0dtXbGlvHVsSrm+PHRhYmxlIHdpZ DMcZTuvFQNlIfBeoAbdSF1jBa5jOJ VyLWNvbGxhcHNlOiBj m8rzUQLkTVqoXT1cqIuiY8AhuRJ5U JBtb1m1Mb21xWT+HRRqCXW2rQfpDK mly646RaLeg3vnTJH9 dJHgZWoaOHX6W47mw2E2SXIzBGBnK YC0mAG3jC9ucLacnreaL8FlxZNbVf T8GCP1pCPphV9knAqf kesiaX5gAjd+G30XFK8VXBWMMZ9JT uy0B0RvFpaxlXO+EC55JVKzYB74zO IqkKShy4eqmBk4ByBm ZUMuGZD6vHgeCKtvu1BjMKGrK98kq QIvu4P9ALYdlPhmzAEfCyMnjIJ6gG 6rGEtxoslze9vzugbu Jpoug6faac50iZ22S51oSNmnMPOsE LO0VIKqGNXqwIxrfk3ctC5fQz0+ID bjq3yaf8akoNb6PeSy PXSrdeNizCtqIVE6u6GfHg28H2Ikc Utax9ZlEcm4gm91jRTta7J5vOS1UB ubSDPwiO2eBZikQhB7 KFEaAxFaaB01oVKfAKnxTp1vzPoyb NkpSP7zEFTwuildWCWtnQ1zZCDduS WhdNrqUF4kXWRhquqv i396ObGiEFB3OXPvrKQrP1JkvI3rA oKmOOGmCASsS6WvqJQcWNlnD255XH kbVlI1VARntkPoA9Rl FNFwuAmfGgJ7c8G5Dv1Jl4TspuxjL LG6INzfDSQ1AdK8FsXrJqF0Y5StCw k6WKGfnReqAY4dN6Sx ZURfotezwybisHA7VRNaGUXpxR73r CWdBJalDh7wl4V1g781OSUtGKYgwN 17Ao4ypEieQLXmoJOS wO2ebfjcw6vtmgfpDfZgWLUgHOa6R Hs6OXIlcMqfHiGnTCB3TwO1EFD7hO UweH4jkXzsvyrzsO2l Oyc+M56ikT9bWMM6XCE0qfdnBPHpw sRgOQ41EN60G7DuEyefqHIqnWI+PG RgdtDrkYyoVM8zOpGi f3wbd7DnXDafP3ZmMYUuHZouAgz4R IRnRDZ5iWU8gK0xPHZrMGhah3M0rE B6C7NfidUfxg8mt8zc BQWsRPfvU59gaSFes2U6VYTduGJ7Y FKthVyeFiUwoY17Jth+PGNvbGdyb3 UsFlkbf3rik3ulmHi2 JfWyPVGokeJicRjpUWX3m2BbWh79N 29sIHdpZHRoPSIxNSUiIHZhbGlnbj 5dpO0eDm2+PGNvbCB3 pVK7gP5cFQVxZgG9PZpkY655AqAyt GUmPcvad0kky9tghEu5DkFbQJWfyy MkdIeeSMJ6f9IkHv16 M04bCPcmBEGfVPXuKQFkAXOhsWgzp m1deE5gNo9+MZ8jl1acpm48tS49eS I+QEZbPCL7fImcDIku QFFfpN5iNQihJxQ8OLHuFdJuwX49p BYxXRotXk2buBgniJqtVT8lUQUczd psa239IfMml9tuHTCi wXJmGJnzYVQ3O42no7L7CAHsEJQmK JG0sKN6uT3eoSlqrzjenAEbsUzayz YbkPgcJRkcBGbmI138 KGYaqRojKpXajSfndqLtAfZpYBn3I 2DoKxe2NOWzuGhkME8akNFtZVnqYm 3idHmqaObtJY9eQUNl yxbid603RoRzl4enIFYuhLDxJLjrD AB8T41nm3W9GLVzAHEiNOM3sGL1yJ 1hbGlnbjogbGVmdDsg qzBovAzrVVzbPHfcF220UYXpuHvwK dCijoUaSQNteYV4GL39XT59fNSzs0 O0bXB9K0FzFRAlndgg qzelgFV7OBYjYEUvxJ59Cx8hdDdwM l2mSXSmSOU8JOThiTUfW1EgyW2oIl LfBHFiDKEsA2BngVWp GPkaG788NVytDrO9GVRsffNlF9UsO HIwtNejDvD1f3X0Nh7UZ8U0DT67RU 87cXXvv6M3sTX5C6Nx CTVfhmhrilhmwYY2ESSdXZAabR71A l7jnDqwQw2fZYQqCCF2GTJobOSaH4 RqqW3dFlZkFETeQGQj I0BcqECeOYizL342TBwxFyJ4BJOig dBcZ5MyQNRcmBsyQuV6t3H2Xl4XWW e5TL71SR26zZJzi4R9 wVN2A1ZxOINcqyzndyjtsIK7LLZxG TYvfV85Qd7iuGcvZi9wETFvYGI0WD UtbPHoU4UpuL0mBuQa WDAnVLAcV8NhmAGmVUhlS273OMeeB wU1MCPkvmKrU7VpLBDjxBxsEiM7a8 V3Yw6CPAIlQX27AMK5 vUC3JJ04ZD27C0HtTsmxhAWonHQ+P HRhYmxlIHdpZHRoPScxMDAlJyBzdH jrNJ5sEx6yNXUaXNKl fLnbdXXnIaNpx8fpWPGnJAnfJU4ql JoxL4FrzHW8BCScq8z6Xq88M92dC8 JvdXA+TDDisMW9oFR9 sP2iJhUpGgB1GBvsQ926SvOxdZEzY phyt8uaw3nzhYx2UtS2ZJNvbkFsoC ekJLT5a2UkRz11V53e RMhnLGQaTELlGKErQMIzdQxfla2ox G9wIi8+FLVnmDM9jQM4qM0kDkKdGr K2GXfcN513XdOagKDs Obzhw3arx9pxvLh4FfDqDEHybnLnt BvcLNL7o3WvMh38P9IhbZews9IpJo n0ph14tROod0Q0eZN9 C8DgDATefhqcyLJekOfeMJ8zZVDxr dhiMPUlqR5uMAHiJ8v1VyXuOpK2XC xrF0RsznW8SAVsuOSr YMilERN6D63bx0J5SKDaDSAeREW0p BM7wP4dtYyowuoysMIoyNfuhfEwoQ mlMCyfNIyqD320OSBt nJkdBTFbwZ2wYDCgjDWuyHloHN0pV LTdcrbhGjMNZGlALRYJPZ5HWSSDAh VNVE72QX34nNIfh2T9 lVI9Y7MwAZNlhxjrcsnkqVS7XWDtJ DOwkC44xOScIJcbAd0fs9Q7p332CV EdWKOozA65Xs2teEsz FAYeqXLDyI2eakbhl6nflyndTeQeX XArMTh1WPe2PYChmYoqDrTrIJN8Wp Z0QHX6bQOhzE4vbOpe jwuldB2fQsj+XZWlGaWeTJj8SIpqu GQ+IKVaRJT1fEgjYMkxJGHrgU4lAF QlU1l1RuAzNeV0PTci B3UgOQOkwlowRe29wY7uInRwHfH0M MbjQ1FcphP6ACXhmWAuLUtwEPU1F9 6zw2Z4STAqMNKzORH6 dSC1uH2rcGuocfiwbFPnaOpypcVqy ZwkPYbdARfrL524YLGtjHsmKsR1YJ cnBYOdHB70AQ48eACa u7V9vBX8A9MzTLYkzglnmpdnvBN9A AAgTHNmxO10cZHuTPrkUx7gc5U5a9 19EDOsNCRgyZ27Et9z dUalARXruIHXyU6szlyjy0ufinovL vTyPSBoQSq0DMc2MQZvbWwwTdKhPF F5CuR2VIL8hOZhcC1e vWdksilazM8hRdk+LiNoNRokMI41T K80vHDeq2C8pTD7M2ZlCOBzyogrqu fplAK2KDRiBCImxF06 tELiNJvsSn5tm4P5u039KJUcULYgb N36Eg6upHnzCCFhiRXIsR7pwdzwc6 xvcjogIzAwMDAwMDt0 SXq5RPHzbNmaNoHdJMB9JdJ7WBK3j QUosY6nqKzziqjtnV0fVuz+UmVjdX FjlD5yIY60NR33P9Oc PjwvdGFibGU+PHRhYmxlIHdpZHRoP TgaLHVnUtEgpZifJS4uPo4bHFDzFC JubEruiZMvAeCnf5wh KHXnCSwzYD5qyYtrC5AdsPX9CVSlz 5e7Zv49I61zU5AhmNR+MSXhnOH1qB R3aM1aFuXuUdI5WWfe O352GzNwpSBzEuskz4mns9xwrEa7K wEzIQJjkgJssNilQQM0n0FqBe24C2 9sIHdpZHRoPSIyMCUi JYSnyXhrho7naN1jIf5+GZHneOV5h PM3zI8lYeIaTiT6TSmpJ828BtFtvP HeVidxP63cJ5McdMB+ GHMfZwa2MUXipGmjXY1ymPOwJUtkF v0pSRA2NpVoBiPmZFmvI9RgBRGigo lbiocbuXY4FYCaGOOy yT58Kr9lrCaxRm4zRVDnVFT8ULRua XXkP1HemQ2zJiXmPYZxHVCkO0ExaZ AbTJvuG562GYohTgD8 SAUzofWiU3RgJLOatNqsEuH6e5V4U j0KwQotlKMgNP2cLlMkQUt8M6JrId s5VKXlwMzcDB7huRDw ONlvBz1ycYyzmXtbVN3kPXUgoyaas 962TvVvk2imXLMjoYHcACbnIHC7B5 3gc7I5OJCmTYLjMPX4 qNV9hV4cuPhdjvogyKIafHbythLcy CedXMtiHDapU015BUDcyGunQoVBIp x3U2AtJov8JEQvaQdh ZL3ebVEdYZesAb3kkWbbkGqnZK0aP GDmbphxk326TkXhn5msILAxkQCsLL rxDPX3L31wj3L9FNEu YUBgZVB3lZA0bG5gaXtsolnpfJHot KpghaSfyNyzQCplARtkV261JMWkaC zaWi8OZys1D3MyGin5 FFXowAroJF9yqEBlHAthTf7ixEnwu RrzLS6wJKJlfgtnt917BjMva1azAM EahMGfIUynJTS6L48u u8X6MAItSSLhCUI4zBI1rY2nxMifk jogbGVmdDsgdmVydGljYWwtYWxpZ2 46IHRvcDsnPlBheWVy OjwvdGQ+ZP72lc59A4UtHlbhGyu8I LKwOXF9qKW2bR9iSLUvUExvb8U6jZ V4C4UnayZenb5ea2qs YXBz (more content not included)... Normal [facility] Consent for Treatmenton Consent for Treatment [id number]#1.00CD:127 [facility] Outside Records Officeon Outside Records Office [id number]#1.00CD:127 [facility] Physician Orderon 04-14-2022 Physician Order [id number]#1.00CD:127 Normal [facility] Coding Summary.on 11-12-2021 Coding Summary. CD:[id number]:[id number] Gh0bWw+PG hlYWQ+JD6SOHJvQ90tzMVpdR7TI6a GFW3TKKSLEICCQA8QNI3fhOJ9AQeu Q0HuczVl VdvnrJFxNE43GLz2FRX4rCjiMRsgc V7tnSKnG1t8JxJsVM70qY75SFxyQV IoRtY3FxWbtfdkvAEr L6yrUzJmfQAqBge+PHRhYmxlIHdpZ HKnRTozTVFrAvXuvMhwDN8rOj8rVI VyLWNvbGxhcHNlOiBj x8agIZVxCZvxYF9gbPjmK6PheDV7T UBkx7s0Fy44zTC+OVTnDTP1tHnvUQ spv339YhAxc8ceWIP5 tYUcEQadSMV3N06hq9F5JJFqNHWzM OU5xXJ5nN1ffIrhhuyyI4CulJQcEn I2TVQ4rZBiuZ1uuRlv xxqsbX0hMcc+T17NQQ4ZZAYFYE4RP nn6P0KuKpaqmWR+FE69WBNvCN06uD RhwQYbu5fwoVn1BkTl EYEnBNS0iQgnPHhrn5JiNQCgZ90cs ADze2G1MYHazGuldWNqRrUzjRK3qL 2pDPbtevxae1jxxkjn Gohxg0ifan70jH15I98hXXakUOGtV EP1MWQsEKWaaGkzqt2jyS9jCk5+ID wpb4xzl6ktqVi4QbYb STFhfsRiyByqGTP2s5KyRm96T3Mls Rmab0BaVro6cc29oQEhd3N8zWJ3VZ zhNQFadP1nKGlmBiQ0 GHUzHjWmmN91aEOxYDzdPx0iaIfom NirFN7uZUAhrqndALNscL4uLTBtxA WkyVhhOB8oTTIculqo c819LuLcMQH9ONCeeWBaU8VxrA0mT aKkXWGkDDPgS8UzvQGpEVafP421OJ tkTiU8XMTctlZmL3Ed AZXovKtsAbE4r1U7Ex8Ti5MufndxP BI3ZEjhZVSxQkI0FsKvYiP1E5EcFq v8ITKfyKxmZP2oD7Ug PFTkwwglvgncbMV4FPUcYPWjtU17k XWmCDacNh2ey4L8u574FZVuOMPycV 15Fw8ppLlkDLIfaZKR hR1wpkods3alcerbJvLwCOBwQEw3Q Gs5KQZrwDjhKzNgFNM6MkD5NWE8nT WfmV2seHcoghymoH5m Oyc+N64weR6fTGM2IUI6pbykSNEcy pZyZI42XG37X3FlTzeaaXUwqXC+PG QitjYpcBjoNL4gWkOz t0srv1VzAEvfU1DaICXjJSrsGqx6J YKrFNP9nJD6fD9yIMKgVPfqh2S2dL K9U5FfrwOgaz0qa0rh MYAaKQwfB11qkYPoi6A1GMIyxYE7W UZpmDjwHsUuuL88Fyt+PGNvbGdyb3 WhKadlm4irj3cxxYp8 EzPvQHGetwSodJxfJUR6q0JsLf22O 29sIHdpZHRoPSIxNSUiIHZhbGlnbj 1nkV7ySq8+PGNvbCB3 eQS3cR3nKCQzKjJ3QNgjE266SlRge KHwDiqcm9pbc3lruCl4GeDeTQEnao ZdwWshDRL4p3ViIb45 I53wEYyzWGEhXHHcCGUoTCZnkImsp v9xhP0uTq7+HM1hx4ivxq57wP17uB I+QXXfEXM6hKhgRHss THKbwA8wPFxlTqK4AJYmBfXlwF66d DNgQFccJh4pxXabdRcbTG2cTJUfgn yua737OoKxc9crQSNb uUMmDOaxZHV6Q65bk7L2TUZnYQBiJ UG4uAW7mY8zzUleexekpYGikEplfk UayQwrAOkaUPffC460 GLYilLpcYbDlqRhtixTyRdEoXCg7K 6TfLfm2MWCwjJhiQT5rvCZwKWwtVf 9xrPqtoXtiMZ6aMQXi ruxeg878WoSsb9flANHooOEuKUleG ST7C30mf4U9JFBpAZXpQIC0cAL3oE 1hbGlnbjogbGVmdDsg vaZxuJbyKIbcULzkS028JPFuqBurS cYcjvJkQSItkDL8GH65FU59eYPap8 X3fCH6M5QhTGQfpdmc rkqugRF8ZXJbYYCmyI18Sd6pyUdpO n8hJEOuZKG2CJXrpZMeU4JirV2xGg YuGPIwIOSwQ2QpsFQo QWkiP745BHpzTxA8ATBxsdIdR2XdI NZptZlwZaR3y5A0Ew2CB5I6BE22DC 51fASbe3R7tVF0X5Nj PSXpmhwisbjgtRL9RKMfFPKwnQ80Q s1aaNnbZu8qJMAfKOJ0GLEwpMUsB6 OcrJ6fRzHdUYGoZXTo M7OmtERgFGygW754KShqXeB5FJAvs tEyQ7IaMBCjzXacCyC2q3K2Qq7FWN y0FG89GX25aKBhg2Q6 bEK3N3HaWKInifnknfefsGU3SRVfO KSfbF62Rx1scQwrJd8cJBNnFYH3OW ZlvEEgO8HiqX1pKfWi WHGsXZGbG5RijUXkDHnnL713HKqjE rV0FFHeiqMoN5TsIGIrfCgnFfS7y7 K9Kp6TWFWiPX59YEH3 jZK0YZ90BG06G0JuMihvrFHbdUL+P HRhYmxlIHdpZHRoPScxMDAlJyBzdH hkOW1xIa4vFHUgELHn vQhdnWSyKtEaa6jdBSJmSUclLM3cd PmoE2IfsWM5DHUcx6w2Wr12X49fQ1 JvdXA+DLZwaPR4vJF3 tQ1kFcRjSsO0AEehO084LtCsmSEqX brmi3uci1thvMw1FeX5ZNOuupPqeA zkIDA8u9ZzSh80G12j XNepIHGvJTXtQNTaLDUbhZlsoo1qh G9wIi8+TDFisQH0yWF2oA5hIlVyFt L4DVijL799ZxSviQZb Qnmub4aze7nffDc7UxYiYKQpuuCml TlrICT0q6FpZi61F3GjnLlxs9VbIc b5bq57eNYqa0W2bAP3 R4DeEGQvehurbCPjmHuoYL6tVUTnc tquQDKwuO0yZIIyL1i0JhKmWqD7CQ dcL1MmgiR8LDDntZRu HJduPGO9V95nt5A9GREnSFImTZP2f QK1vU7xkCypyiwfqDHghIutltPhlY yrMFybYAivR802SGDx bVclWUZkiX8tBUCagOSctWdxWV0sU AOteezmAnHKIHmSYQZHLL9EMKZWLu BCEI05UH61xAUte2F3 aBP3A6WyYJXrkqfrlaqzjJB7OTFgX SVyzX58bBDqQFxiAs2rq6M0b653IX WtWBAptO86Uv4jxMtl ISWkcLJZyU2udxvdl5lhddleIuUgW EEoXLc9NIn5BEAovOmeNwTtWIC2Cy N8BCF7wXRldP2wdHnq gcpnvH8aOsr+ESEyTfJfHFs2CJlhj GQ+HVYcLWA9dOxaIIbsOEItbI1kAH PrV3p6KsLfFsH8LFli D5PtHOPfcjokMw99wE4gBlGuWwA3V RebO8TdojZ6OFRcyYDpSWvlBJG9A1 4ts8J0OTTaBVVhOZK2 bUF2aF2twTauhyraqHOrtIwmimLto PnbVXluCWvaE270MZUqtCxaGpMlWI otCWYwOS42XW17yHGe t1Q0jHD3E1TfCHWcxtvlhhdvcPH5N ONaOGSlkA84aVIjDTmhOf7xw2R5m7 19JQHaJXIciC41Id7j tAhfUUJyuXRYiL6bxbyml6rosavcA yEjXWMdORw1YUu0ILWeoMktPiOrAL Z6RfE5KBH8kUNsoE4w lNztcciupM7nHyv+KkPaUYlzAG76Y V61jCLbl0O6tCE3Z3WjLGUjbjqgmr qdqJU7ZWKiTADumH43 tPCvKLgpBk0pn0A2g629QOKzQEZde U34Ex0vbDyzPQHtfEVKiF6jkvmyp3 xvcjogIzAwMDAwMDt0 ZOj3XYGxgHcsXyWaCQC6KvF9VYR6a VDpjG5ohYlrzodzsJ7mGgk+RW1lcm nvcxD6PC78ES68M4Yp PjwvdGFibGU+PHRhYmxlIHdpZHRoP XmlSGHrJfGnqThtFH6aDh7hDSZyHP BexJfomJOuBjTrd9hb IVElCPbqGE0gtGfeK4MgnYL7AYJok 3i6Dl30F46hE5EdkCH+DCHjfLH8iK I2cT1rPwGbVeD8VJyd X838KkKkaOJjHipzw4yxy7xptZd0U dIbYCWcsrWagTijKQG5x4RmWy20O7 9sIHdpZHRoPSIyMCUi MZXelTrmeu4viM9jLk1+TSYghLN1p AS9lP2fJpWtUeF2LJzzO186WoKnfK DuBpejK17aQ5FbiZV+ BBDcFpt5YPFehZksCH9kjITuQMuuE h3lUXV6WfHaWzIaBKobK7DzRFVsen spottyuLA4DAKwCPXd lG34Fz6qvBmoLl2tRWMlAKW3RQAhl BMzA4KaxN1xYnVjXGDpICNiH0CmdP MjWOrvV860FPyoUdO7 CVJyeqUvB6JyGMVqwTmvIsX1k6N5G l9CuEgzlGDkUW8mZzVxUOj1U0OxMf c2ZYNirEdrFC1byYNa IOhzIo1ulYgmeOzgUJ2bLWVrlytha 149BuYxa0akLKTsiGXgSNpoDSA1P8 5ga0S8XDYbHAHbHIB7 eKN1cW9uaRiqqgrupMXmqZwlfrBpv EleIYipZFwlF383TLMgkXihKtGVVl w5Z1QiYcg6YLCrgNkk SS2izXCoOHtiQl3xxEpmvKynCU1aN DEtiqedg135XsJdg9ftAQObbLXnNX svGGN1B99iv8V9GKHb FTAwQQZ1yFW6iA5lzBzqfcfukJPkc CteduUqzDpaXCkwQQmxG230YMWbtI loVn4EGso6C4QwYql8 SBExsLbzYK1whXEfLCttLc8pwEaxx BuxCJ8bSVIdilqdh344DiYzr9tuST LylGFaMPdbMYC6P53j b6G0ELPgEBCfJBS2sBP3dE1sdVvef jogbGVmdDsgdmVydGljYWwtYWxpZ2 46IHRvcDsnPlBheWVy OjwvdGQ+PH76yv08G2FqGfmiWin5A PMjMGZ6iRU3mS2nZVAaALuuz7F4xE R1M6RdodIqwl8fe2dy YXBz (more content not included)... Normal [facility] Consent for Treatmenton 10-19 Consent for Treatment [id number]:127 Normal [facility] Discharge Instructionson Discharge Instructions [id number]#[id number]:127 Normal [facility] ED Clinical Summaryon 2021 ED Clinical Summary (Inserted Image. Maria Del Rosario ble to display) [place] [id number] ED Clinical Summary Person Information Name: MARILEE ARRIAGA Felipa/[facility] Age: 45 Years : 1975 Sex: Female Language: Lithuanian PCP: FRANCOISE GAY Marital Status: Single Visit [...] 16:00:59 11/05/2021 16:00:59 11/05/2021 16:00:59 AD[address]: [address] [facility] [id number] PHYS DOC NOTES: MEDICAL INFORMATION: Prescriptions Given: New Medications [id number], [address] [place], [place] [id number], [phone] acetaminophen-hydrocodone ([place] 325 mg-5 mg oral tablet) 1 Tablets [...] up: With: Address: When: Em [address] [place] [address] Business (1) In 3 days 11/08/2021 Comments: Return to the emergency room if your pain gets worse or any new symptoms. With: Address: When: FRANCOISE BARNES [address] [place], [place] [id number] Business (1) In 3 days DIAGNOSIS: 1:Avulsion fracture of left ankle; 2:Sprain of left foot Normal [facility] ED Note-Physicianon 11-06-19 ED Note-Physician Basic Information Time Seen: Trinity Novoa Tyler Petersen 11/05/2021 14:34 Chief Complaint patient [...] and crutches was given. Patient was given [place] in the emergency room. Will discharge patient home with [place]et and follow-up with Ortho. The OARRS report [...] Foot 3+ Views Left Medications Administered Given [place] 5/325 Tab, 1 tab(s), Oral Disposition Plan Patient Discharge Condition Stable Discharge Disposition Discharged home Discharge Prescription List Prescriptions [place] 325 mg-5 mg oral tablet, 1 tab(s), Oral, q6hr, PRN Follow-up With When Contact Information Em Mir In 3 days 11/08/2021 EDT [address] [place] [address]- Business (1) Additional Instructions: Return to the emergency room if your pain gets worse or any new symptoms. FRANCOISE BARNES In 3 days [address] [place] [address]- Business (1) Additional Instructions: Patient Education Crutch [...] Tab, 100 mg= 1 tab(s), Oral, Daily [place] 325 mg-5 mg oral tablet, 1 tab(s), Oral, q6hr, PRN ondansetron 4 mg/5 mL oral solution Prozac 20 mg Cap, 20 mg= 1 cap(s), Oral, Daily Prozac 40 mg Cap, 40 mg= 1 cap(s), Oral, Daily Qvar with Dose Counter 80 mcg/inh inhalation aerosol ranitidine 150 mg Tab, 150 mg= 1 tab(s), Oral, BID SEROquel 100 (more content not included)... Normal [facility] Comment on above: Result Comment: Elec [...] 08/04/2001 Document Revised: 07/20/2018 Document Reviewed: 01/27/2017 [employer] Patient Education ? 2020 [employer] How to Use a Stirrup [...] the bra (more content not included)... Normal [facility] ED Patient Summaryon 022 ED Patient Summary (Inserted Image. Maria Del Rosario ble to display) [facility] [address], [place] [address] Patient Discharge Instructions Person Information Name: MARILEE ARRIAGA Age: 45 Years Arrival Date: 11/05/2021 13:19:01 Discharge Diagnosis: 1:Avulsion fracture of left ankle; 2:Sprain of left foot Primary Care Physician: FRANCOISE GAY Provider Information Primary Provider: Tyler Petersen M.D. Advanced Refrigerator Repair Technician:None The exam and treatment you received in [...] Instructions: With: Address: When: [address] [place] [address] Business (1) In 3 days 11/08/2021 Comments: Return to the emergency room if your pain gets worse or any new symptoms. With: Address: When: FRANCOISE BARNES [address] [place] [address] Business (1) In 3 days In the [...] opioids can be used to help relieve ckrgzbwc-eg-wtdfas pain and are often prescribed following a [...] Administration (www.fd (more content not included)... Normal [facility] XR Ankle 3+ Views Lefton XR [...] Barnett MD Transcribed by: KAIDEN Technologist: Normal [facility] XR Foot 3+ Views Lefton 10-19 XR Foot 3+ Views Left Exam Date/Time: 11/05/2021 13:50 EDT Reason for Exam: Fall Report Refer to concurrent left ankle radiograph dictation. FINAL REPORT Dictated: 11/05/2021 2:04 pm Rony Barnett MD. Signed (Electronic Signature): 11/05/2021 2:04 pm Signed by: Rony Barnett MD Transcribed by: KAIDEN Technologist: NO Valencia [facility] MRI BRAIN W WO CONTRASTon MRI BRAIN [...] Garciaigned by:Margo Mendez MD02/13/18inal result Normal [facility] CNDSon 02-16-2017 CNDS HNO ID: [id number] thor: Mark Anthony (Res) AdenugaService: General SurgeryAuthor Type: ResidentType: Discharge SummariesFiled: 02/16/2017 11:44 AMNote Text:The [address] [address] or ([phone]) [facility] I D E N T I A L I N F O R M A T I O N -------STANDARD [facility] DOCUMENTDISCHARGE SUMMARYPatient Name: Marilee Buckner Date: 02/13/2017Discharge Date: 02/16/2017Attending Physician: DENIZ Pfeifferrincipal Diagnosis: Morbid obesitySecondary Diagnoses:Patient Active Hospital Problem List: Obesity, Class III, BMI >= 40 (morbid obesity) ([facility]) E66.01 (02/12/2017) Morbid obesity ([facility]) (02/13/2017)Operations During Hospitalization:Laparoscopic Crystal en Y gastric [...] as needed.Future Appointments:Future AppointmentsDate Time Provider Department [place]02/23/2017 2:30 PM [id number]-DOSNBPMTNRENÉE LUNDBERGI GENS A/M 03/09/2017 11:00 AM [id number]-MAXKNTLINL, KASEY (PHD) GSPSMN GENS A/M 03/16/2017 12:00 PM [id number]-RVYHCKRBPNCX 2 GENBMI GENS A/M D04/06/2017 1:45 PM [id number]-HETIXLHMQRENÉE LUNDBERG GENBMI GENS A/M D05/16/2017 10:30 AM [id number]-QWVJNLISSY TAM GENBMI GENS A/M D05/16/2017 10:30 AM [id number]-QEJNGLISSY BLACK[place]LL GENBMI GENS A/M BLDPatient will follow-up in clinic with Renée Lopez MD as scheduledabove, or sooner if the need arises.Electronically SIGNED by Licensed Independent Practitioner: Mark Anthony Jean MD Normal [facility] Glucose POCT ([facility] [place] [place] A Use Only)on 02-16-2017 Glucose mass conc 105 mg/dL High 65-100 [facility] Comment on above: Performed By: #### G LUPOC ####[facility] [place], [place] [phone] NURSING PROGon 02-16-2017 NURSING PROG HNO ID: [id number] thor: Lilibeth Ortega (Rn) SUNSHINE Santoservice: (none)Author Type: Registered NurseType: Nursing Progress NoteFiled: 02/16/2017 11:37 AMNote Text: Nursing Progress NotePatient Name: Marilee OlivierirMRN: [id number] [facility]24[facility]SX-[id number]-12 _Daily Note: Patient has been discharged home; [...] note was completed by: Lilibeth Santos RN [facility] NURSING PROG HNO ID: [id number] thor: Lilibeth Ortega (Jorge) Racquel Santosice: (none)Author Type: Registered NurseType: Nursing Progress NoteFiled: 02/16/2017 10:27 AMNote Text: Nursing Progress NotePatient Name: Marilee SmithRN: [id number] [facility]3B24/ET-WK7L-34 _Daily Note: Doing better this am, able to take all of pills and drink theKphos, took a shower, so taking in more po, pain controlled, no emesis, nomore bloody stool, ambulating VSS, on RA, expecting to go home today,continue to monitor.This note was completed by: Lilibeth Santos RN [facility] PROGRESSon 02-16-2017 PROGRESS HNO ID: [id number] thor: iHram (Romain) Teresitaice: General SurgeryAuthor Type: ResidentType: Progress NotesFiled: 02/16/2017 8:02 AMNote Text:General Surgery Progress NoteName: Marilee OlivierirMRN: [id number]: 02/16/2017SUBJECTIVESubjective : No acute events overnight. Last [...] lb) LMP 01/27/2017 SpO2 94% BMI 62.73 kg/f8Slahtl/Output Summary (Last 24 hours) at 02/16/17 0759Last [...] with morbid obesity now POD 3 s/p vkatuphqsyiuSepj-bq-U gastric bypass. Bloody bowel movements resolved with stable H/H.- Phase 2 bariatric diet- Heplock IV- Wean O2- PO pain meds, hold toradol- Will discuss resuming DVT prophylaxis- Encourage incentive spirometry and ambulation- Anticipate discharge today on home Richelle Gordon MDGeneuniversity hospitals health system Surgery ResidentPager [phone] Normal [facility] Basic Metabolic Panlon 02-15 Anion gap 10 mmol/L Normal 05-08 [facility] Comment on above: Performed By: #### B MP, MG1, PHOS ####[facility] [place], [place] [phone] Calcium 8.1 mg/dL Low 8.5-10.5 [facility] Comment on above: Performed By: #### B MP, MG1, PHOS ####[place] [address] Chloride 104 mmol/L Normal 98-110 [facility] Comment on above: Performed By: #### B MP, MG1, PHOS ####[place] [phone] CO2 27 mmol/L Normal 23-32 [facility] Comment on above: Performed By: #### B MP, MG1, PHOS ####[place] [phone] Creatinine 0.78 mg/dL Normal 0.70-1.40 [facility] Comment on above: Performed By: #### B VIANCA, MG1, PHOS ####[place] [address] eGFR (non-black) mL/min/{1.73_m2} Normal >60 [facility] Comment on above: Performed By: #### B VIANCA, MG1, PHOS ####[place] [phone] Glucose mass conc 119 mg/dL High 65-100 [facility] Comment on above: Performed By: #### B VIANCA, MG1, PHOS ####[address] Potassium molar conc 4.2 mmol/L Normal 3.5-5.0 [facility] Comment on above: Performed By: #### B MP, MG1, PHOS ####[place] [address] Sodium 141 mmol/L Normal 132-148 [facility] Comment on above: Performed By: #### B MP, MG1, PHOS ####[place] [phone] Urea nitrogen 15 mg/dL Normal 8-25 [facility] Comment on above: Performed By: #### B MP, MG1, PHOS ####[place] [phone] CBCon 02-15-2017 Erythrocyte distribution width Auto Ratio (RBC) 12.9 % Normal 11.5-15.0 [facility] Comment on above: Performed By: #### C BC ####[place] [phone] Erythrocytes (RBC) 3.63 10*6/uL Low 3.90-5.20 [facility] Comment on above: Performed By: #### C BC ####[place] [phone] Hematocrit (HCT) 33.8 % Low 36.0-46.0 [facility] Comment on above: Performed By: #### C BC ####[place] [phone] Hemoglobin mass conc (Bld) 10.9 g/dL Low 11.5-15.5 [facility] Comment on above: Performed By: #### C BC ####[place] [phone] MCH 30.0 pG Normal 26.0-34.0 [facility] Comment on above: Performed By: #### C BC ####[place] [phone] MCHC mass conc (RBC) 32.2 g/dL Normal 30.5-36.0 [facility] Comment on above: Performed By: #### C BC ####[place] [phone] MCV 93.1 fL Normal 80.0-100.0 [facility] Comment on above: Performed By: #### C BC ####[place] [phone] Platelet mean volume (PMV) 8.5 fL Low 9.0-12.7 [facility] Comment on above: Performed By: #### C BC ####[place] [phone] Platelets 368 10*3/uL Normal 150-400 [facility] Comment on above: Performed By: #### C BC ####[place] [phone] WBC (Leukocytes) 11.75 10*3/uL High 3.70-11.00 [facility] Comment on above: Performed By: #### C BC ####[place] [phone] CBC and Differentialon 02-15 Abs Baso 0.02 k/uL Normal 0.00-0.10 [facility] Comment on above: Performed By: #### C BCDIF ####[place] [phone] Abs [place] 0.97 k/uL High 0.00-0.86 [facility] Comment on above: Performed By: #### C BCDIF ####[address] Abs Neut 8.11 k/uL High 1.45-7.50 [facility] Comment on above: Performed By: #### C BCDIF ####[place] [phone] Basophils/100 WBC Auto (Bld) 0.1 % Normal [facility] Comment on above: Performed By: #### C BCDIF ####[address] DTYPE Auto Diff Normal [facility] Comment on above: Performed By: #### C BCDIF ####[place] [phone] Eosinophils 0.35 10*3/uL Normal 0.00-0.45 [facility] Comment on above: Performed By: #### C BCDIF ####[place] [phone] Eosinophils/100 leukocytes 2.5 % Normal [facility] Comment on above: Performed By: #### C BCDIF ####[place] [phone] Erythrocyte distribution width Auto Ratio (RBC) 13.1 % Normal 11.5-15.0 [facility] Comment on above: Performed By: #### C BCDIF ####[place] [phone] Erythrocytes (RBC) 3.51 10*6/uL Low 3.90-5.20 [facility] Comment on above: Performed By: #### C BCDIF ####[place] [phone] Hematocrit (HCT) 32.6 % Low 36.0-46.0 [facility] Comment on above: Performed By: #### C BCDIF ####[place] [phone] Hemoglobin mass conc (Bld) 10.7 g/dL Low 11.5-15.5 [facility] Comment on above: Performed By: #### C BCDIF ####[place] [phone] Lymphocytes 4.35 10*3/uL High 1.00-4.00 [facility] Comment on above: Performed By: #### C BCDIF ####[place] [phone] Lymphocytes/100 leukocytes 31.5 % Normal [facility] Comment on above: Performed By: #### C BCDIF ####[place] [phone] MCH 30.5 pG Normal 26.0-34.0 [facility] Comment on above: Performed By: #### C BCDIF ####[place] [phone] MCHC mass conc (RBC) 32.8 g/dL Normal 30.5-36.0 [facility] Comment on above: Performed By: #### C BCDIF ####[place] [phone] MCV 92.9 fL Normal 80.0-100.0 [facility] Comment on above: Performed By: #### C BCDIF ####[place] [phone] Monocytes/100 leukocytes 7.0 % Normal [facility] Comment on above: Performed By: #### C BCDIF ####[place] [phone] Neutrophils/100 WBC Auto (Bld) 58.9 % Normal [facility] Comment on above: Performed By: #### C BCDIF ####[facility] [place], [place] [phone] Platelet mean volume (PMV) 8.3 fL Low 9.0-12.7 [facility] Comment on above: Performed By: #### C BCDIF ####[place] [phone] Platelets 391 10*3/uL Normal 150-400 [facility] Comment on above: Performed By: #### C BCDIF ####[place] [phone] WBC (Leukocytes) 13.80 10*3/uL High 3.70-11.00 [facility] Comment on above: Performed By: #### C BCDIF ####[place] [phone] Glucose POCT ([facility] [place] [place] A Use Only)on 02-15-2017 Glucose mass conc 111 mg/dL High 65-[address] [place] [address] Comment on above: Performed By: #### G LUPOC ####[place] [phone] Glucose mass conc 121 mg/dL High 65-100 [facility] Comment on above: Performed By: #### G LUPOC ####[place] [phone] Glucose mass conc 99 mg/dL Normal 65-100 [facility] Comment on above: Performed By: #### G LUPOC ####[place] [id number] [place], [place] [phone] Glucose mass conc 116 mg/dL High 65-100 [facility] Comment on above: Performed By: #### G LUPOC ####[facility] [place], [place] [phone] Magnesiumon 02-15-2017 Magnesium 2.0 mg/dL Normal 1.7-2.6 [facility] Comment on above: Performed By: #### B MP, MG1, PHOS ####[facility] [place], [place] [phone] NURSING PROGon 02-15-2017 NURSING PROG HNO ID: [id number] thor: Lilibeth Ortega (Rn) Racquel Santosice: (none)Author Type: Registered NurseType: Nursing Progress NoteFiled: 02/15/2017 4:15 PMNote Text: Nursing Progress NotePatient Name: Marilee OlivierHesham: [id number] Location: [place] [address]/SX-[id number]-80 _Daily Note: Dr called to inform that patient had another bloody stool itwas dark red, no change in vital signs HR has remained in 70's, on RA, noincrease in pain, patient is only taking sips of clears otherwiseunchanged , stable, lab orders again @ 1800.This note was completed by: Lilibeth Santos RN Normal [facility] NURSING PROG HNO ID: [id number] thor: Lilibeth Ortega (Rn) Doroteo Santos: (none)Author Type: Registered NurseType: Nursing Progress NoteFiled: 02/15/2017 10:29 AMNote Text: Nursing Progress NotePatient Name: Marilee OlivierJustinN: [id number] Location: [place] [address]/BD-LR6V-96 _Daily Note:Patient states she's feeling ok, just brought up some 'phlegm',( clearbubbles) no emesis, able to keep down 'bites' or sips of broth and tea,given IV phenergan, denies pain, encouraged to continue to ambulate,stable, call light in reach.This note was completed by: Lilibeth Santos RN [facility] NURSING PROG HNO ID: [id number] thor: Liliana (Rn) Rolo, RNService: (none)Author Type: Registered NurseType: Nursing Progress NoteFiled: 02/15/2017 5:53 AMNote Text: Nursing Progress NotePatient Name: Marilee OlivierirMRN: [id number] Location: [place] [address]/DU-TH5F-45 _ Surgery paged [id number] Marilee Arriaga: patient had dark bloody BM. pleaseadvise. Liliana [place]er [phone] No new ordersThis note was completed by: Liliana Seth RN [facility] PROGRESSon 02-15-2017 PROGRESS HNO ID: [id number] thor: Mark Anthony (Romain) SheldonugaService: General SurgeryAuthor [...] RNF, potential discharge tomorrowPaul MD Ted (PGY 2)[id number] 6PM weekdays and all through weekends: [id number] SNausea and emesis yesterday, improving and PO intake improvingSlept okayDark bloody BMs this AMAmbulating well OTemp (24hrs), Av.7 ?C (98 ?F), Min:36.4 ?C (97.6 ?F), Max:36.9 ?C(98.4 ?F)BP 147/78 Pulse 80 Temp 36.4 ?C (97.6 ?F) (Oral) Resp 16 Ht 154.9cm (5' 1 ) Wt (!) 150.6 kg (332 lb) LMP 01/27/2017 SpO2 99% BMI62.73 kg/b6GUQMRCI: Mild distress as actively nauseated and sitting up with vomitbag, alert and oriented x 3HEENT: NC/AT, EOM's intactRESPIRATORY: Respiratory effort unlaboredCHEST-CVS: HDSABDOMEN: Soft, obese and non distended, non tender, laparoscopic incisionsCDI with glueNEURO: Grossly non-focal02/14 0700 - 02/15 0659In: 3622 [PO:300; IV:3322]Out: 2180 [Urine:1850] Normal [facility] PROGRESS HNO ID: [id number] thor: Renée LopezService: General SurgeryAuthor Type: PhysicianType: Progress NotesFiled: 02/15/2017 7:52 AMNote Text:BARIATRIC STAFFDry zuriaves yesterday when drinking, no nausea.Doesn't feel bloated [...] PO intake improvesStacy Gale Lopez MD Normal [facility] Phosphoruson 02-15-2017 Phosphate 1.9 mg/dL Low 2.5-4.5 [facility] Comment on above: Performed By: #### B MP, MG1, PHOS ####[facility] [place] [phone] Vital Signs Date Time Vital Sign Value Performing Clinician Faci lity 10-15-2024 11:21-0500 Body mass index (BMI) [Ratio] 58.68 kg/m2 [employer] DO Work Phone: [facility] 10-15-2024 11:21-0500 Body weight 145.51 kg [employer] Canadaodilia BuzzDoes DO Work Phone: [facility] 10-15-2024 11:21-0500 Diastolic blood pressure 80 mm[Hg] [facility] Press[facility]ilia BuzzDoes DO Work Phone: [facility] 10-15-2024 11:21-0500 Heart rate 88 /min [facility] Work Phone: [facility] 10-15-2024 11:21-0500 SaO2% (BldA) [Mass fraction] 95 % [facility] Pressodilia BuzzDoes DO Work Phone: [facility] 10-15-2024 11:21-0500 Systolic blood pressure 132 mm[Hg] Rebtelhowie Temo DO Work Phone: [facility] 09-18-2024 14:39-0500 Body height 157.5 cm Francoise Hemmer PA Work Phone: [facility] 09-18-2024 14:39-0500 Body mass index (BMI) [Ratio] 59.19 kg/m2 Francoise Hemmer PA Work Phone: [facility] 09-18-2024 14:39-0500 Body temperature 98.8 [degF] Francoise Hemmer PA Work Phone: [facility] 09-18-2024 14:39-0500 Body weight 146.78 kg Francoise Hemmer PA Work Phone: [facility] 09-18-2024 14:39-0500 Diastolic blood pressure 76 mm[Hg] Francoise Hemmer PA Work Phone: [facility] 09-18-2024 14:39-0500 Heart rate 100 /min Francoise Hemmer PA Work Phone: [facility] 09-18-2024 14:39-0500 Respiratory rate 16 /min Francoise Hemmer PA Work Phone: [facility] 09-18-2024 14:39-0500 SaO2% (BldA) [Mass fraction] 95 % Francoise Hemmer PA Work Phone: [facility] 09-18-2024 14:39-0500 Systolic blood pressure 118 mm[Hg] Francoise Hemmer PA Work Phone: [facility] 09-09-2024 12:20-0500 Body mass index (BMI) [Ratio] 59.26 kg/m2 Tonya Gibbs [employer] SERV[employer] D[employer] DEV[employer] Work Phone: [facility] 09-09-2024 12:20-0500 Body temperature 97.2 [degF] Tonya Gibbs [employer] Work Phone: [facility] 09-09-2024 12:20-0500 Body weight 146.97 kg Tonya Gibbs [employer] Work Phone: [facility] 09-09-2024 12:20-0500 Diastolic blood pressure 72 mm[Hg] Tonya Bernie [employer] Work Phone: [facility] 09-09-2024 12:20-0500 Heart rate 88 /min Tonya Bernie [employer] Work Phone: [facility] 09-09-2024 12:20-0500 SaO2% (BldA) [Mass fraction] 99 % Tonya Bernie [employer] Work Phone: [facility] 09-09-2024 12:20-0500 Systolic blood pressure 130 mm[Hg] Tonya Bernie [employer] Work Phone: [facility] 09-08-2024 12:27-0500 Body mass index (BMI) [Ratio] 59.26 kg/m2 Tonya Bernie [employer] Work Phone: [facility] 09-08-2024 12:27-0500 Body temperature 98.71 [degF] Tonya Bernie [employer] Work Phone: [facility] 09-08-2024 12:27-0500 Body weight 146.97 kg Tonyasheela Looneyok [employer] Work Phone: [facility] 09-08-2024 12:27-0500 Diastolic blood pressure 88 mm[Hg] Tonya Midvale [employer] Work Phone: [facility] 09-08-2024 12:27-0500 Heart rate 117 /min Tonyasheela Looneyok [employer] Work Phone: [facility] 09-08-2024 12:27-0500 SaO2% (BldA) [Mass fraction] 98 % Tonya Bernie [employer] Work Phone: [facility] 09-08-2024 12:27-0500 Systolic blood pressure 124 mm[Hg] Tonya Midvale [employer] Work Phone: [facility] 08-08-2024 11:35-0500 Body height 157.5 cm Francoise MARTINEZ Work Phone: [facility] 08-08-2024 11:35-0500 Body mass index (BMI) [Ratio] 59.08 kg/m2 Francoise MARTINEZ Work Phone: [facility] 08-08-2024 11:35-0500 Body weight 146.51 kg Francoise Hemmer PA Work Phone: [facility] 08-08-2024 11:35-0500 Diastolic blood pressure 88 mm[Hg] Francoise Hemmer PA Work Phone: [facility] 08-08-2024 11:35-0500 Heart rate 94 /min Francoise Hemmer PA Work Phone: [facility] 08-08-2024 11:35-0500 SaO2% (BldA) [Mass fraction] 98 % Francoise Hemmer PA Work Phone: [facility] 08-08-2024 11:35-0500 Systolic blood pressure 128 mm[Hg] Francoise Hemmer PA Work Phone: [facility] 07-17-2024 11:35-0500 Body mass index (BMI) [Ratio] 59.26 kg/m2 Francoise Hemmer PA Work Phone: [facility] 07-17-2024 11:35-0500 Body weight 146.97 kg Francoise Hemmer PA Work Phone: [facility] 07-17-2024 11:35-0500 Diastolic blood pressure 90 mm[Hg] Francoise Hemmer PA Work Phone: [facility] 07-17-2024 11:35-0500 Heart rate 86 /min Francoise Hemmer PA Work Phone: [facility] 07-17-2024 11:35-0500 Respiratory rate 18 /min Francoise Hemmer PA Work Phone: [facility] 07-17-2024 11:35-0500 SaO2% (BldA) [Mass fraction] 98 % Francoise Hemmer PA Work Phone: [facility] 07-17-2024 11:35-0500 Systolic blood pressure 130 mm[Hg] Francoise Hemmer PA Work Phone: [facility] 06-26-2024 13:42-0500 Body height 157.5 cm Placido Mendez [employer] SERV[employer] DEVELOPER Work Phone: [facility] 06-26-2024 13:42-0500 Body mass index (BMI) [Ratio] 58.53 kg/m2 Placido Mendez [employer] SERV[employer] DEVELOPER Work Phone: [facility] 06-26-2024 13:42-0500 Body weight 145.15 kg Placido Mendez [employer] SERV[employer] DEVELOPER Work Phone: [facility] 06-26-2024 13:42-0500 Diastolic blood pressure 84 mm[Hg] Placido Mendez SQL SERVER DBA DEVELOPER Work Phone: [facility] 06-26-2024 13:42-0500 Heart rate 90 /min Placido Mendez SQL SERVER D[employer] DEVELOPER Work Phone: [facility] 06-26-2024 13:42-0500 SaO2% (BldA) [Mass fraction] 96 % Placido Mendez SQL SERVER D[employer] DEVELOPER Work Phone: [facility] 06-26-2024 13:42-0500 Systolic blood pressure 128 mm[Hg] Placido Mendez SQL SERVER DBA DEVELOPER Work Phone: [facility] 06-03-2024 13:34-0400 Body height 157.5 cm Coy Hung MD Work Phone: [facility] 06-03-2024 13:34-0400 Body mass index (BMI) [Ratio] 59.26 kg/m2 Coy Hung MD Work Phone: [facility] 06-03-2024 13:34-0400 Body weight 146.97 kg Coy Hung MD Work Phone: [facility] 06-03-2024 13:34-0400 Diastolic blood pressure 78 mm[Hg] Coy Hung MD Work Phone: [facility] 06-03-2024 13:34-0400 Heart rate 78 /min Coy Hung MD Work Phone: [facility] 06-03-2024 13:34-0400 Respiratory rate 18 /min Coy Hung MD Work Phone: [facility] 06-03-2024 13:34-0400 Systolic blood pressure 118 mm[Hg] Coy Hung MD Work Phone: [facility] 05-09-2024 11:07-0400 Body height 156.2 cm Francoise Hemmer PA Work Phone: [facility] 05-09-2024 11:07-0400 Body mass index (BMI) [Ratio] 60.79 kg/m2 Francoise Hemmer PA Work Phone: [facility] 05-09-2024 11:07-0400 Body weight 148.33 kg Francoise Hemmer PA Work Phone: [facility] 05-09-2024 11:07-0400 Diastolic blood pressure 74 mm[Hg] Francoise Hemmer PA Work Phone: [facility] 05-09-2024 11:07-0400 Heart rate 63 /min Francoise Hemmer PA Work Phone: [facility] 05-09-2024 11:07-0400 Respiratory rate 16 /min Francoise Hemmer PA Work Phone: [facility] 05-09-2024 11:07-0400 SaO2% (BldA) [Mass fraction] 97 % Francoise Hemmer PA Work Phone: [facility] 05-09-2024 11:07-0400 Systolic blood pressure 112 mm[Hg] Francoise Hemmer PA Work Phone: [facility] 2023 13:53-0400 Body height 157.5 cm Matthew Bangura DO Work Phone: [facility] 2023 13:53-0400 Body mass index (BMI) [Ratio] 60.87 kg/m2 Matthew Bangura DO Work Phone: [facility] 2023 13:53-0400 Body weight 150.96 kg Matthew Bangura DO Work Phone: [facility] 09-19-2023 09:41-0500 Body height 157.48 cm [facility] 09-19-2023 09:41-0500 Body weight 104.32 kg [facility] Encounters Encounter Date Encounter Type Care Provider Facility Start: 10-15-2024 End: 10-15-2024 Bamboo flowsheet Arie Plascencia DO Work Phone: [facility] Start: 10-15-2024 End: 10-15-2024 Bamboo flowsheet Arie Plascencia DO Work Phone: [facility] Start: 10-15-2024 End: 10-15-2024 Office outpatient new 45 minutes Arie Plascencia DO Work Phone: [facility] Comment on above: Polyneuropathy (Prim santosh Dx); Degeneration of intervertebral disc of lumbar region with discogenic back pain and lower extremity pain; Long-term use of high-risk medication; Class 3 severe obesity due to excess calories with serious comorbidity and body mass index (BMI) of 50.0 to 59.9 in adult ([facility] Start: 10-15-2024 End: 10-15-2024 ambulatory ARIE PLASCENCIA Not Available Start: 10-14-2024 ambulatory Jamey Minor acility:[facility] Start: 09-18-2024 End: 09-18-2024 ambulatory FRANCOISE BARNES Not Available Start: 09-18-2024 End: 09-18-2024 Office outpatient visit 25 minutes Francoise Barnes PA Work Phone: [facility] Comment on above: Watery diarrhea (Veronica doug Dx); Screening for malignant neoplasm of colon; Nausea and vomiting, unspecified vomiting type; Generalized abdominal pain; Calculus of gallbladder without cholecystitis without obstruction Start: 09-18-2024 End: 09-18-2024 Bamboo flowsheet Francoise MARTINEZ Work Phone: [facility] Start: 09-18-2024 End: 09-18-2024 Bamboo flowsheet Francoise MARTINEZ Work Phone: [facility] Start: 09-09-2024 End: 09-09-2024 ambulatory TONYA L BERNIE Not Available Start: 09-09-2024 End: 09-09-2024 Office outpatient visit 15 minutes Tonya Gibbs SQL SERVER DBA DEVELOPER Work Phone: [facility] Comment on above: Acute conjunctivitis of left eye, unspecified acute conjunctivitis type (Primary Dx); Acute nonintractable headache, unspecified headache type Start: 09-08-2024 End: 09-08-2024 Office outpatient visit 25 minutes Tonya Gibbs SQL SERVER [employer] DEVELOPER Work Phone: [facility] Comment on above: Acute conjunctivitis of left eye, unspecified acute conjunctivitis type (Primary Dx); Acute nonintractable headache, unspecified headache type Start: 09-08-2024 End: 09-08-2024 ambulatory TONYA GIBBS Not Available Start: 09-02-2024 End: 09-02-2024 Refill [...] procedure Arie Plascencia DO Work Phone: [facility] Comment on above: Paresthesias (Primar y Dx) Start: 07-25-2024 End: 07-25-2024 ambulatory ARIE PLASCENCIA Not Available Start: 07-25-2024 End: 07-25-2024 Bamboo flowsheet Arie Plascencia DO Work Phone: [facility] Start: 07-25-2024 End: 07-25-2024 Bamboo flowsheet Arie Plascencia DO Work Phone: [facility] Start: 07-17-2024 End: 07-17-2024 Bamboo [...] 06-26-2024 End: 06-26-2024 Bamboo flowsheet Placido Mendez SQL SERVER DBA DEVELOPER Work Phone: [facility] Start: 06-26-2024 End: 06-26-2024 Bamboo flowsheet Placido Mendez SQL SERVER DBA DEVELOPER Work Phone: [facility] Start: 06-26-2024 End: 06-26-2024 ambulatory PLACIDO MENDEZ Not Available Start: 06-26-2024 End: 06-26-2024 Office outpatient visit 25 minutes Placido Mendez SQL SERVER DBA DEVELOPER Work Phone: [facility] Comment on above: Thrush, oral (Primar y Dx); Left-sided epistaxis; Fall in home, initial encounter Start: 06-24-2024 End: 06-24-2024 ambulatory Najma Richardson MD Facility:[facility] Start: 06-10-2024 End: 06-10-2024 ambulatory Najma Richardson MD Facility:[facility] Start: 06-03-2024 End: 06-03-2024 Office outpatient visit 25 minutes Coy Hung MD Work Phone: [facility] Comment on above: Hypoglycemia (Primar y Dx); S/P gastric bypass; IFG (impaired fasting glucose); Weight gain; Encounter for dietary consultation; Class 3 severe obesity due to excess calories with serious comorbidity and body mass index (BMI) of 50.0 to 59.9 in adult (CMS/HCC) Start: 06-03-2024 End: 06-03-2024 ambulatory COY HUNG Not Available Start: 05-31-2024 End: 06-03-2024 Clinisync Result Encounter Generic External Data Provider [facility] External Department Unsolicited Start: 05-31-2024 End: 06-03-2024 Clinisync Result Encounter Generic External Data Provider [facility] External Department Unsolicited Start: 05-27-2024 End: 05-27-2024 ambulatory [facility] Start: 05-21-2024 End: 05-21-2024 Telephone encounter Francoise [...] 05-09-2024 Office outpatient visit 25 minutes Francoise Barnes [...] 05-06-2024 End: 05-06-2024 ambulatory Najma Richardson MD Facility:[facility] Start: 05-01-2024 End: 05-01-2024 Refill Francoise Barnes PA Work Phone: [facility] Comment on above: Chronic pain of both knees Start: 02-12-2024 End: 02-12-2024 ambulatory Najma Richardson MD Facility:[facility] Start: 01-31-2024 End: 01-31-2024 ambulatory FRANCOISE BARNES Not Available Start: 01-23-2024 End: 01-23-2024 ambulatory FRANCOISE BARNES Not Available Start: 01-04-2024 End: 01-04-2024 ambulatory [facility] Comment on above: Right upper quadrant abdominal pain Start: 12-29-2023 End: 12-29-2023 Telephone encounter Leigha Moore CMA [facility] Start: 12-29-2023 ambulatory [facility] Start: 12-28-2023 End: 01-03-2024 Orders Only Renate Amador [facility] Comment on above: Right upper quadrant abdominal pain Start: 2023 End: 2023 ambulatory MATTHEW BANGURA [facility] Start: 2023 End: 2023 Office outpatient new 45 minutes Matthew Bangura DO Work Phone: [facility] Comment on above: Right upper quadrant abdominal pain (Primary Dx); Morbid obesity with BMI of 60.0-69.9, adult ([facility]) Start: 12-12-2023 End: 12-12-2023 ambulatory GERMAINE Del Castillo OSMEL Not Available Start: 12-04-2023 End: 12-04-2023 ambulatory Najma Richardson MD Facility:[facility] Start: 11-21-2023 End: 11-21-2023 ambulatory FRANCOISE BARNES Not Available Start: 10-31-2023 End: 10-31-2023 ambulatory FRANCOISE BARNES Not Available Start: 10-23-2023 End: 10-23-2023 ambulatory Najma Richardson MD Facility:[facility] Start: 09-25-2023 Refill Francoise Barnes PA Work Phone: [facility] Comment on above: Chronic pain of both knees Start: 09-19-2023 End: 09-19-2023 ambulatory NON STAFF [facility] Work Phone: Start: 09-19-2023 End: 09-19-2023 Patient encounter procedure [facility] [place] Work Phone: Start: 07-17-2023 Registered [facility] Start: 11-07-2022 End: 11-08-[address] FRANCOISE BARNES Facility:[facility] Start: 06-27-2022 End: 06-27-2022 ambulatory SUNSHINE NEWMAN . Facility:[facility] Start: 04-27-2022 End: 10-26-2022 ambulatory FRANCOISE BARNES Facility:[facility] Start: 04-22-[address] FRANCOISE BARNES Facil ity:[facility] Start: 11-05-2021 End: 11-05-2021 Emergency department patient visit Tyler Petersen Facility:[facility] Start: 09-18-2018 Patient encounter procedure Ida Weber Facility:[id number] Start: 05-08-2018 Patient encounter procedure Ida Weber Facility:[id number] Start: 02-13-2018 End: 02-16-2018 Ambulatory FRANCOISE BARNES [facility] Start: 12-19-2017 Patient encounter procedure Ida Weber Facility:[id number] Procedures Date Procedure Procedure Detail Performing Clinician Start: 07-25-2024 End: 07-25-2024 Needle emg ea extremty w/paraspinl area complete Arie Plascencia DO Work Phone: Start: 06-03-2024 Gluc bld gluc mntr dev cleared fda spec home use Coy Hung MD Work Phone: Start: 05-31-2024 Bacteria identified in Urine by Culture Generic External Data Provider Start: 12-28-2023 NM HEPATOBILIARY SYS IMAGING W PHARMACOLOGIC AGENT Matthew Bangura DO Work Phone: Start: 12-22-2023 US ABDOMEN LMTD Matthew Bangura DO Work Phone: Start: 09-19-2023 MR lumbar spine wo con Start: 09-19-2023 XR pre/post mri xray Start: 02-10-2023 Mammography Francoise Barnes PA Work Phone: Start: 02-13-2018 Mri brain brain stem w/o w/contrast material FRANCOISE BARNES 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 Plan of Treatment Date Care Activity Detail Author Start: 12-16-2028 DTaP,Tdap and Td Vaccines (2 - Td or Tdap) DTaP,Tdap and Td Vaccines (2 - Td or Tdap) [facility] Start: 12-12-2024 Adult BMI Screening Adult BMI Screening [facility] Start: 12-12-2024 Tobacco Screening Tobacco Screening [facility] Start: 12-02-2024 End: 12-02-2024 Patient encounter procedure 12/02/2024 3:15 PM EDT Office Visit [facility] EVANS [address] [address] Arie Plascencia DO [address] [place] [id number] [facility] Start: 12-02-2024 End: 12-02-2024 Patient encounter procedure 12/02/2024 1:30 PM EDT Office Visit [facility] [address] [place] [address] Coy Hung MD [address] [place] [address] [facility] Start: 10-15-2024 End: 10-15-2025 Cobalamin (Vitamin B12) [Mass/volume] in Serum or Plasma Vitamin B12 Lab Routine Polyneuropathy Long-term use of high-risk medication Expected: 10/15/2024 (Approximate), Expires: 10/15/2025 [facility] Comment on above: Expected: 10/15/2024 (Approximate), Expi res: 10/15/2025 Start: 10-15-2024 End: 10-15-2025 Copper, serum Copper, serum Lab Routine Polyneuropathy Long-term use of high-risk medication Expected: 10/15/2024 (Approximate), Expires: 10/15/2025 [facility] Comment on above: Expected: 10/15/2024 (Approximate), Expi res: 10/15/2025 Start: 10-15-2024 End: 10-15-2025 Hemoglobin A1c/Hemoglobin.total in Blood Hemoglobin A1c Lab Routine Polyneuropathy Long-term use of high-risk medication Expected: 10/15/2024 (Approximate), Expires: 10/15/2025 [facility] Work Phone: Comment on above: Expected: 10/15/2024 (Approximate), Expi res: 10/15/2025 Start: 10-15-2024 End: 10-15-2025 Immunofixation electrophoresis Immunofixation electrophoresis Lab Routine Polyneuropathy Long-term use of high-risk medication Expected: 10/15/2024 (Approximate), Expires: 10/15/2025 [facility] Comment on above: Expected: 10/15/2024 (Approximate), Expi res: 10/15/2025 Start: 10-15-2024 End: 10-15-2025 Reagin Ab [Presence] in Serum by RPR RPR Lab Routine Polyneuropathy Long-term use of high-risk medication Expected: 10/15/2024 (Approximate), Expires: 10/15/2025 [facility] Comment on above: Expected: 10/15/2024 (Approximate), Expi res: 10/15/2025 Start: 10-15-2024 End: 10-15-2025 Thyrotropin [Units/volume] in Serum or Plasma TSH Lab Routine Polyneuropathy Long-term use of high-risk medication Expected: 10/15/2024 (Approximate), Expires: 10/15/2025 [facility] Comment on above: Expected: 10/15/2024 (Approximate), Expi res: 10/15/2025 Start: 10-15-2024 End: 10-15-2025 Vitamin B6 Vitamin B6 Lab Routine Polyneuropathy Long-term use of high-risk medication Expected: 10/15/2024 (Approximate), Expires: 10/15/2025 [facility] Comment on above: Expected: 10/15/2024 (Approximate), Expi res: 10/15/2025 Start: 10-15-2024 End: 10-15-2024 Patient encounter procedure [facility] Comment on above: Arrived Start: 09-18-2024 End: 09-18-2025 Clostridioides difficile toxin A+B tcdA+tcdB genes [Presence] in Stool by LINUS with probe detection Clostridium difficile toxin Microbiology Routine Watery diarrhea Expected: 09/18/2024 (Approximate), Expires: 09/18/2025 [facility] Comment on above: Expected: 09/18/2024 (Approximate), Expi res: 09/18/2025 Start: 09-18-2024 End: 09-18-2025 Noninvasive colorectal cancer DNA and occult blood screening [Presence] in Stool Cologuard colon cancer screening Lab Routine Screening for malignant neoplasm of colon Expected: 09/18/2024 (Approximate), Expires: 09/18/2025 [facility] Work Phone: Comment on above: Expected: 09/18/2024 (Approximate), Expi res: 09/18/2025 Start: 09-18-2024 End: 09-18-2025 NOROVIRUS (GENOGROUP 1, 2) (GASTROINTESTINAL) NOROVIRUS (GENOGROUP 1, 2) (GASTROINTESTINAL) Lab Routine Watery diarrhea Expected: 09/18/2024 (Approximate), Expires: 09/18/2025 [facility] Comment on above: Expected: 09/18/2024 (Approximate), Expi res: 09/18/2025 Start: 09-18-2024 End: 09-18-2025 Stool culture Stool culture Microbiology Routine Watery diarrhea Expected: 09/18/2024 (Approximate), Expires: 09/18/2025 [facility] Comment on above: Expected: 09/18/2024 (Approximate), Expi res: 09/18/2025 Start: 09-18-2024 End: 09-18-2025 US Abdomen limited US RUQ Imaging Routine Nausea and vomiting, unspecified vomiting type Generalized abdominal pain Calculus of gallbladder without cholecystitis without obstruction Expected: 09/18/2024, Expires: 09/18/2025 [facility] Comment on above: Expected: 09/18/2024, Expires: Start: 08-08-2024 End: 08-08-2024 Patient encounter procedure 08/08/2024 11:30 AM EST Office Visit [facility] [address] [place] [address] Francoise Barnes, PA [address] [place] [address] [facility] Start: 07-25-2024 End: 07-25-2024 Patient encounter procedure [facility] Comment on above: Arrived Start: 07-17-2024 End: 07-17-2024 Patient encounter procedure 07/17/2024 11:30 AM EST Office Visit [facility] [address] [place] [address] Francoise Barnes, PA [address] [place] [address] Arrived [facility] Comment on above: Arrived Start: 06-03-2024 End: 06-03-2024 Patient encounter procedure 06/03/2024 1:10 PM EDT Office Visit [facility] [address] [place] [id number] Coy Hung MD [address] [place] [address] [facility] Start: 05-09-2024 End: 05-09-2024 Patient encounter procedure 05/09/2024 11:00 AM EDT Office Visit [facility] [address] [place] [address] Francoise Barnes PA [address] [place] [address] Arrived [facility] Comment on above: Arrived Start: 05-06-2024 End: 05-06-2024 Patient encounter procedure 05/06/2024 2:00 PM EDT Office Visit [facility] [address] [place] [address] Francoise Barnes PA [address] [place] [address] [facility] Start: 04-21-2024 Influenza vaccination [facility] Start: 02-18-2024 Influenza vaccination Influenza Vaccine (#1) [facility] Comment on above: Postponed from 04/21/2023 (Patient Refus ed) Start: 02-11-2024 Screening for malignant neoplasm of breast Mammogram [facility] Start: 2023 End: 12-12-2024 NM Biliary ducts and Gallbladder Views for patency of biliary structures and ejection fraction W sincalide and W radionuclide IV NM hepatobiliary system imaging with pharmacologic agent Imaging Routine Right upper quadrant abdominal pain Expected: 2023, Expires: 12/12/2024 [facility] Comment on above: Expected: 2023, Expires: Start: 2023 End: 12-12-2024 RF Gastrointestinal tract upper Views W air contrast PO and W barium contrast PO Fluoroscopy upper GI with esophagus Imaging Routine Right upper quadrant abdominal pain Expected: 2023, Expires: 12/12/2024 [facility] Comment on above: Expected: 2023, Expires: Start: 2023 End: 12-12-2024 US Abdomen limited Ultrasound abdomen limited Imaging Routine Right upper quadrant abdominal pain Expected: 2023, Expires: 12/12/2024 [facility] Work Phone: Comment on above: Expected: 2023, Expires: Start: 10-25-2023 End: 10-25-2023 Patient encounter procedure 10/25/2023 1:00 PM EST Office Visit [facility] [address] [facility] [address] [place] [address] Francoise Barnes PA [address] [facility] [address] [place] [address] [facility] Start: 04-21-2023 COVID-19 Vaccine ( season) COVID-19 Vaccine () [facility] Start: 12-14-2007 Screening for malignant neoplasm of cervix [facility] Start: 1998 Screening for malignant neoplasm of cervix Pap Smear [facility] Start: 12-14-1995 Adult BMI Follow Up Plan Adult BMI Follow Up Plan [facility] Start: 1989 Depression Screening Depression Screening [facility] Start: 1977 Screening for malignant neoplasm of colon [facility] Immunizations Immunization Date Immunization Notes Care Provider [facility] 07-05-2024 influenza, injectabl e, madin andrzej canine kidney, preservative free Francoise MARTINEZ Work Phone: [facility] 05-30-2021 influenza, injectabl e, quadrivalent, preservative free Francoise MARTINEZ Work Phone: [facility] 05-30-2021 influenza virus vacc ine, unspecified formulation Francoise MARTINEZ Work Phone: [facility] 06-12-2020 influenza, injectabl e, quadrivalent, preservative free Francoise MARTINEZ Work Phone: [facility] 12-16-2018 tetanus toxoid, redu brina diphtheria toxoid, and acellular pertussis vaccine, adsorbed Francoise MARTINEZ Work Phone: [facility] Payers Date Payer Category Payer Self-pay [id number] 2022 Medicaid [id number] 2022 Medicaid [id number] 2022 Unknown 2018 Unknown [id number] 2018 Unknown [id number] 1977 Unknown [id number] 2.16. 840.1.739034.3.579.2.356 1977 Unknown [id number] 2.16. 840.1.925096.3.579.2.356 1977 Unknown [id number] 2.16. 840.1.698933.3.579.2.356 1977 Unknown [id number] 2.16.8 40.1.837523.3.579.2.727 1977 Unknown [id number] 2.16.8 40.1.300686.3.579.2.727 1977 Unknown [id number] 2.16.84 0.1.639380.3.579.2.593 1977 Unknown [id number] 2.16.84 0.1.253920.3.579.2.593 1977 Unknown [id number] 2.16.84 0.1.664264.3.579.2.593 1977 Unknown [id number] 2.16.8 40.1.677110.3.579.2.1286 1977 Unknown [id number] 2.16.8 40.1.076524.3.579.2.1286 1977 Unknown [id number] 2.16.8 40.1.395614.3.579.2.1286 1977 Unknown [id number] 2.16.8 40.1.341330.3.579.2.6 1977 Unknown [id number] 2.16.8 40.1.153626.3.579.2.1285 1977 Unknown [id number] 2.16.8 40.1.699537.3.579.2.1285 1977 Unknown [id number] 2.16.8 40.1.291103.3.579.2.1285 1977 Unknown [id number] 2.16. 840.1.128009.3.579.2. 1977 Unknown [id number] 2.16. 840.1.224529.3.579.2. 1977 Unknown [id number] 2.16. 840.1.930242.3.579.2. 1977 Unknown [id number] 2.16. 840.1.025839.3.579.2. 1977 Unknown [id number] 2.16. 840.1.178832.3.579.2. 1977 Unknown [id number] 2.16. 840.1.988839.3.579.2. 1977 Unknown [id number] 2.16. 840.1.091996.3.579.2. 1977 Unknown [id number] 2.16.84 0.1.226958.3.579.2.1258 1977 Unknown [id number] 2.16.84 0.1.896331.3.579.2.1258 1977 Unknown [id number] 2.16.84 0.1.470806.3.579.2.1258 1977 Unknown [id number] 2.16.84 0.1.399380.3.579.2.1258 1977 Unknown [id number] 2.16.84 0.1.392736.3.579.2.1258 1977 Unknown [id number] 2.16.84 0.1.004029.3.579.2.1258 1977 Unknown [id number] 2.16.84 0.1.663733.3.579.2.1258 1977 Unknown [id number] 2.16.84 0.1.135243.3.579.2.1258 1977 Unknown [id number] 2.16.84 0.1.523763.3.579.2.1258 1977 Unknown [id number] 2.16.84 0.1.588245.3.579.2.1258 1977 Unknown [id number] 2.16.84 0.1.170443.3.579.2.1258 1977 Unknown [id number] 2.16.84 0.1.447056.3.579.2.1258 1977 Unknown [id number] 2.16.84 0.1.571946.3.579.2.1258 1977 Unknown [id number] 2.16.84 0.1.941843.3.579.2.1258 1977 Unknown [id number] 2.16.84 0.1.440444.3.579.2.9 1959 Unknown [id number] Unknown [id number] 2.16.8 40.1.499834.3.579.2.531 Social History Date Type Detail Facility Tobacco smoking stat us [email or web address] Unknown if ever smoked [facility] Work Phone: Start: 1975 Sex Assigned At Female F [facility] Start: 09-18-2018 End: 01-23-2023 Tobacco smoking status WVIS Never smoked tobacco (finding) [facility] Start: 01-23-2023 End: 2023 Tobacco use and exposure Smokeless tobacco non-user [facility] Start: 07-26-2023 End: 09-18-2024 Alcohol intake Ex-drinker (finding) [facility] Start: 07-26-2023 End: 09-18-2024 History of Social function [facility] Start: 07-26-2023 End: 09-18-2024 Tobacco use panel [facility] Start: 04-26-2023 Alcohol Comment Caffeine intake: sod a [facility] Start: 1975 Sex Assigned At Not on file N [facility] Childcare Unknown [facility] Start: 2023 Alcohol Comment I used to drink [facility] Start: 12-06-2023 Gender identity Identifies as female gender (finding) [facility] Clinical Notes 06-28-2021 to 10-15-2024 Arie Plascencia DO - 10/15/2024 11:30 AM MICHELLE Marlow - 09/18/2024 2:30 PM Mildred Gibbs NP - 09/09/2024 12:00 PM Mildred Gibbs NP - 09/08/2024 12:30 PM EST Note Date & Type Note Facility 10-15-2024 History of Presen t illness Narrative Images from the original note were not included. Chief complaint: Paresthesias Subjective Marilee Arriaga, 48 y.o., female Patient presents today for a neurologic consult at the request of Simona Szymanski CNP for polyneuropathy. She an EMG completed for review. She is accompanied by her mother. She admits issues in bilateral LE. She admits weakness and her legs are giving out. She is falling at least once a month. Her last fall was two days ago. She denies hitting her head. She admits numbness, tingling, pins and needles and burning. This is worse at night. She has not tried any medication. Review of Systems Constitutional: Negative for appetite change, fatigue and fever. Respiratory: Negative for cough, shortness of breath and wheezing. Cardiovascular: Negative for chest pain, palpitations and leg swelling. Gastrointestinal: Negative for abdominal pain, constipation, diarrhea and nausea. Musculoskeletal: Negative for arthralgias, gait problem and myalgias. Neurological: Positive for numbness. Negative for dizziness, tremors and headaches. Past Medical History: Diagnosis Date Arthritis Auditory [...] 08/2004 OTHER SURGICAL HISTORY 08/1977 pyloric stenosis [place] ARTHROSCOPY KNEE DIAGNOSTIC W/WO SYNOVIAL BX SPX 04/1998 RADIOFREQUENCY ABLATION Bilateral 06/05/2023 L3-L5 RADIOFREQUENCY ABLATION Bilateral 02/12/2024 L3-L5 SACROILIAC JOINT INJECTION Bilateral 05/27/2024 SACROILIAC JOINT INJECTION Left 06/24/2024 TONSILLECTOMY 08/1995 Family History Problem Relation Name Age of [...] disease Father's Brother Heart disease Father's Sister Social History Tobacco Use Smoking status: Never Smokeless tobacco: Never Substance Use Topics Alcohol use: Not Currently Comment: Caffeine intake: soda Allergies: Bacitracin-polymyxin b, Codeine, Erythromycin, Penicillin g, Penicillins, Soap, Sulfa antibiotics, Ciprofloxacin, Clindamycin, Erythromycin base, and Maxalt [rizatriptan] Vitals: 10/15/24 1121 BP: 132/80 Pulse: 88 SpO2: 95% Body mass index is 58.68 kg/m . weight: 320 lb 12.8 oz Neurologic exam: Mental status: MORBID OBESITY Awake, alert to person, place and time. Recent and remote memory are intact. Language is fluent without aphasia. Attention and concentration are normal. Fund of knowledge is appropriate for level of education. Cranial nerves: CN II: Visual acuity is normal. Visual villa full to confrontation. CN III, IV, : pupils equal round and reactive to light. Extraocular movements intact. No ptosis present. CN V: Facial sensation is normal. CN VII: Full and symmetric facial movement. CN VIII: Hearing is normal to finger rub bilaterally: CN IX and X: Palate elevates symmetrically. CN XI: Shoulder shrug is normal bilaterally. CN XII: Tongue is midline without atrophy or fasciculation. Motor: RUE Strength deltoid, , biceps , triceps , wrist extensors , wrist flexor , electrical wiring lineman strength 5/5. LUE Strength deltoid , biceps , triceps , wrist extensors , wrist flexor , electrical wiring lineman strength 5/5. RLE Strength illopsoas, quadriceps, tibialis anterior, and gastrocnemius strength 5/5. LLE Strength illopsoas, quadriceps, tibialis anterior, and gastrocnemius strength 5/5. Normal tone x4 extremities. Bulk is normal. Sensory: Sensation is intact to light touch throughout Four extremities. Reflexes: RUE biceps reflex 1+ brachioradialis reflex 2+ . LUE biceps reflex 1+ brachioradialis reflex 2+ . RLE knee reflex 0 . LLE knee reflex 1+ . Murray's sign negative. Coordination: [id number] testing and rapid alternating movements are normal Gait: Normal Review and summary of old records: EMG of the bilateral lower extremities on 07/25/2024: Generalized process such as polyneuropathy which is axonal loss and type and severe in degree electrically. Assessment/Plan Diagnoses and all orders for this visit: Polyneuropathy Degeneration of intervertebral disc of lumbar region with discogenic back pain and lower extremity pain It is my impression that the patient has substantial pain in the lower extremities and in her back. The patient is morbidly obese. I feel that the patient's symptoms are a combination of polyneuropathy which was identified on EMG along with clinically speaking a radicular process. The patient states she did have an MRI a year ago and does follow up with pain management and has trialed injections. They are considering stimulators for her. Plan: Polyneuropathy laboratory evaluation to ensure no correctable are identifiable causes of neuropathy are present As the patient is on controlled substances such as tramadol and already doing injections and on multiple other medications for pain, her pain treatment would need to be per pain management and her current prescriber is from a medications ejection perspective. Physical therapy evaluate and treat ongoing Pending results of physical therapy and further plans with pain management and updated imaging plan such as repeat MRI may be useful for her. The patient's mother accompanies her to the visit today, provides additional history and is agreeable with the plan. Pt has been fully educated on their diagnosis, lab results, treatment options, follow up plan, and return instructions documented in this encounter [facility] 09-18-2024 History of Presen t illness Narrative Images from the original note were not included. Subjective Patient ID: Marilee Arriaga is a 48 y.o. female who presents for diarrhea and nausea. Marilee is present today for evaluation of diarrhea. Admits she has had this for over a week, also is vomiting now nauseated, headache, fever,body aches, chills, left ear discomfort, states before all this started she was very gassy and the gas smelled really bad. She has tried Imodium, zofran, Nurtec for the headache, Tums. She went to on 09/09/24 and they rx'd Gentamicin eye drops and she was ?ing if maybe she was allergic to that that could have caused all her symptoms. States the diarrhea is watery. Current Outpatient Medications on File Prior to [...] the morning. cholecalciferol (Vitamin D-3) 250 MCG (22639 UT) capsule TAKE 1 CAPSULE BY MOUTH ONCE A DAY AT THE SAME TIME. 100 capsule 3 Continuous Blood Gluc Electrical Checkout Mechanic (FreeStyle Samreen 2 [place]) device USE DIRECTED Continuous Glucose Sensor (FreeStyle Samreen 2 Sensor) misc CHANGE EVERY 14 DAYS 2 each 5 Continuous Glucose Sensor (FreeStyle Samreen 2 Sensor) misc Inject 1 each into the skin every 14 (fourteen) days Use as directed 6 each 3 [] dexAMETHasone (Decadron) 0.1 % ophthalmic suspension Administer 1 drop into the left eye in the morning and 1 drop in the evening and 1 drop before bedtime. Do all this for 5 days. 5 mL 0 diclofenac sodium 1 % gel APPLY 2 GM TO AFFECTED AREA IN THE MORNING,IN THE EVENING,AND BEFORE BEDTIME 100 g 3 escitalopram (Lexapro) 10 MG tablet Take 20 mg by mouth Daily fremanezumab (Ajovy) 225 MG/1.5ML auto-injector Inject 1 pen (225 mg) under the skin every 30 (thirty) days 1.5 mL 5 hydrOXYzine pamoate (Vistaril) 50 MG capsule Take 50 mg by mouth in the morning and 50 mg before bedtime. lamoTRIgine (LaMICtal) 150 MG tablet Take 3 tablets by mouth 1 (one) time each day at the same time. methocarbamol (Robaxin) 750 MG tablet Take 750 mg by mouth Daily as needed metoprolol succinate XL (Toprol-XL) 25 MG 24 hr tablet Take 1 tablet (25 mg) by mouth Daily Do not crush or chew. 100 tablet 3 Nurtec 75 MG tablet dispersible TAKE 1 TABLET BY MOUTH EVERY DAY NEEDED FOR MIGRAINES 8 tablet 5 nystatin (Mycostatin) 450447 UNIT/GM powder APPLY TO AFFECTED AREA TOPICALLY DAILY NEEDED 60 g 2 ondansetron ODT (Zofran-ODT) 4 [...] as needed at bedtime for sleep [DISCONTINUED] gentamicin (Garamycin) 0.3 % ophthalmic solution Administer 1 drop into the left eye in the morning and 1 drop in the evening and 1 drop before bedtime. Do all this for 5 days. 5 mL 0 No current facility-administered medications on [...] 08/2004 OTHER SURGICAL HISTORY 08/1977 pyloric stenosis [place] ARTHROSCOPY KNEE DIAGNOSTIC W/WO SYNOVIAL BX SPX 04/1998 RADIOFREQUENCY ABLATION Bilateral 06/05/2023 L3-L5 RADIOFREQUENCY ABLATION Bilateral 02/12/2024 L3-L5 SACROILIAC JOINT INJECTION Bilateral 05/27/2024 SACROILIAC JOINT INJECTION Left 06/24/2024 TONSILLECTOMY 08/1995 Visit Vitals BP 118/76 Pulse 100 Temp 98.8 F Resp 16 Ht 5' 2 Wt 323 lb 9.6 oz SpO2 95% BMI 59.19 kg/m Smoking Status Never BSA 2.54 m Review of Systems Constitutional: Positive for chills, fatigue and fever. HENT: Positive for ear pain. Respiratory: Negative for cough, shortness of breath and wheezing. Cardiovascular: Negative for chest pain, palpitations and leg swelling. Gastrointestinal: Positive for diarrhea, nausea and vomiting. Negative for abdominal pain and constipation. Musculoskeletal: Positive for myalgias. Skin: Negative for rash. Neurological: Positive for headaches. Objective Physical Exam Constitutional: General: She is not in acute distress. Appearance: She is well-developed. She is obese. She is ill-appearing. HENT: Head: Normocephalic and atraumatic. Right Ear: Ear canal normal. A middle ear effusion is present. Left Ear: Ear canal normal. A middle ear effusion is present. Mouth/Throat: Mouth: Mucous membranes are moist. Pharynx: Posterior oropharyngeal erythema (Mild) present. Eyes: General: No scleral icterus. Conjunctiva/sclera: Conjunctivae normal. Cardiovascular: Rate and Rhythm: Normal rate and regular rhythm. Heart sounds: Normal heart sounds. No murmur heard. Pulmonary: Effort: Pulmonary effort is normal. No respiratory distress. Breath sounds: Normal breath sounds. No wheezing, rhonchi or rales. Abdominal: General: Abdomen is protuberant. Bowel sounds are normal. Tenderness: There is abdominal tenderness in the right upper quadrant, right lower quadrant, epigastric area, suprapubic area, left upper quadrant and left lower quadrant. There is no right CVA tenderness or left CVA tenderness. Comments: Body habitus limits exam. Lymphadenopathy: Cervical: No cervical adenopathy. Skin: General: Skin is warm and dry. Neurological: General: No focal deficit present. Mental Status: She is alert and oriented to person, place, and time. Psychiatric: Mood and Affect: Mood normal. Behavior: Behavior normal. Assessment/Plan Diagnoses and all orders for this visit: Watery diarrhea - Clostridium difficile toxin; Future - NOROVIRUS (GENOGROUP 1, 2) (GASTROINTESTINAL); Future - Stool culture; Future Will obtain stool studies due to character and duration of symptoms. Will notify pt of results once received. She will have these done through [facility]. Screening for malignant neoplasm of colon - Cologuard colon cancer screening; Future Provided patient with order to complete Cologuard testing as a screening for colon cancer after her current symptoms resolve. If results are negative, will plan to recheck a Cologuard in 3 years. If results are positive, would need to provide patient with referral for a screening Colonoscopy for further evaluation. Nausea and vomiting, unspecified vomiting type - promethazine (Phenergan) 25 MG tablet; Take 1 tablet (25 mg) by mouth every 6 (six) hours if needed for nausea or vomiting for up to 7 days - US RUQ; Future Provided pt with Promethazine to take as needed for nausea, cautioned it may cause drowsiness. Increase water intake, sipping clear fluids frequently, get plenty of rest. Keep to a bland diet. BRATY diet reviewed. Can take Tylenol prn for any discomfort or fever. Encouraged Probiotic. Wash hands often, and avoid sharing food/drinks. Generalized abdominal pain - US RUQ; Future If N/V or pain worsens despite treatment, she is to go to the ER. She voiced understanding. Calculus of gallbladder without cholecystitis without obstruction - US RUQ; Future Patient has h/o cholelithiasis. Will rule out acute Cholecystitis with US. She will have this done at [facility]. Follow up in about 2 months (around 11/16/2024) for Medication Follow Up. documented in this encounter [facility] 09-09-2024 History of Presen t illness Narrative [...] is resolved today. documented in this encounter [facility] 09-08-2024 History of Presen t illness Narrative [...] saline water used. documented in this encounter [facility] 09-02-2024 Telephone encounter Note OARRS reviewed, Rx sent into patient's pharmacy. [facility] 09-02-2024 Miscellaneous Notes OARRS reviewed, Rx sent into patient's pharmacy. Last OV 08-08-24 Last RF 07-04-24 documented in this encounter [facility] 09-02-2024 Telephone encounter Note Last OV 08-08-24 Last RF 07-04-24 [facility] 08-27-2024 Telephone encounter Note Metoprolol sent. [facility] 08-27-2024 Miscellaneous Notes Metoprolol sent. documented in this encounter [facility] 08-27-2024 Telephone encounter Note CGM sensors sent. [facility] 08-27-2024 Miscellaneous Notes CGM sensors sent. documented in this encounter [facility] 08-08-2024 History of Presen t illness Narrative [...] HOURS NEEDED 90 g 11 ARIPiprazole ER (Wes Maintena) 400 MG injection syringe Inject 400 mg into the shoulder, thigh, or buttocks. Once a month busPIRone (Buspar) 30 MG tablet Take 30 mg by mouth every 12 (twelve) hours. Caplyta 42 MG capsule Take 1 capsule by mouth in the morning. cholecalciferol (Vitamin D-3) 250 MCG (63534 UT) capsule TAKE 1 CAPSULE BY MOUTH ONCE A DAY AT THE SAME TIME. 100 capsule 3 Continuous Blood Gluc Electrical Checkout Mechanic (FreeStyle Samreen 2 [place]) device USE DIRECTED Continuous Blood Gluc Sensor [...] FOR MIGRAINES 8 tablet 5 nystatin (Mycostatin) 569862 UNIT/GM powder Apply 1 application topically Daily [...] at bedtime for sleep [DISCONTINUED] nystatin (Mycostatin) 423100 UNIT/ML suspension Take 4 mL (400,000 Units) [...] 08/2004 OTHER SURGICAL HISTORY 08/1977 pyloric stenosis [place] ARTHROSCOPY KNEE DIAGNOSTIC W/WO SYNOVIAL BX SPX [...] adequate control of her migraines. Sent in [facility] for patient due to migraines uncontrolled. Obstructive [...] Medication Follow Up. documented in this encounter [facility] 07-25-2024 History of Presen t illness Narrative Images from the original note were not included. Reason for Appointment: EMG Patient: Marilee Arriaga : 1975 EMG Computer: [employer] Referring Physician: Simona Szymanski NP EMG: MARIANA debt counselor: Larry Mallory RT(R) Office Location: [place] Reason for EMG: c/o numbness/tingling in left foot/leg, cramping in left leg, low back pain that radiates down left leg. Hx of surgery to right knee. No hx of DM. Not on blood thinners. Comments: Procedure was explained to the patient & female spooling supervisor who expressed understanding. Patient appeared to have tolerated the test well despite some discomfort due to the nature of the test. documented in this encounter [facility] 07-17-2024 History of Presen t illness Narrative [...] the morning. cholecalciferol (Vitamin D-3) 250 MCG (20029 UT) capsule TAKE 1 CAPSULE BY MOUTH ONCE A DAY AT THE SAME TIME. 100 capsule 3 Continuous Blood Gluc Electrical Checkout Mechanic (FreeStyle Samreen 2 [place]) device USE DIRECTED Continuous Blood Gluc Sensor [...] FOR MIGRAINES 8 tablet 5 nystatin (Mycostatin) 897402 UNIT/GM powder Apply 1 application topically Daily [...] Take 15 mg daily [DISCONTINUED] nystatin (Mycostatin) 780137 UNIT/ML suspension Take 4 mL (400,000 Units) [...] 08/2004 OTHER SURGICAL HISTORY 08/1977 pyloric stenosis [place] ARTHROSCOPY KNEE DIAGNOSTIC W/WO SYNOVIAL BX SPX [...] this visit: Thrush, oral - nystatin (Mycostatin) 173468 UNIT/ML suspension; Take 4 mL (400,000 Units) [...] Appointment As Scheduled. documented in this encounter [facility] 07-04-2024 Telephone encounter Note OARRS reviewed, Rx sent into patient's pharmacy. [facility] 07-04-2024 Miscellaneous Notes OARRS reviewed, Rx sent into patient's pharmacy. documented in this encounter [facility] 06-26-2024 History of Presen t illness Narrative [...] the morning. cholecalciferol (Vitamin D-3) 250 MCG (00289 UT) capsule TAKE 1 CAPSULE BY MOUTH ONCE A DAY AT THE SAME TIME. 100 capsule 3 Continuous Blood Gluc Electrical Checkout Mechanic (FreeStyle Samreen 2 [place]) device USE DIRECTED Continuous Blood Gluc Sensor [...] FOR MIGRAINES 8 tablet 5 nystatin (Mycostatin) 458252 UNIT/GM powder Apply 1 application topically Daily [...] 08/2004 OTHER SURGICAL HISTORY 08/1977 pyloric stenosis [place] ARTHROSCOPY KNEE DIAGNOSTIC W/WO SYNOVIAL BX SPX [...] BORIS Horton NP documented in this encounter [facility] 06-26-2024 Instructions Placido Mendez NP - 06/26/2024 1:30 PM EST Nystatin swish and spit as directed Saline nasal spray documented in this encounter [facility] 06-03-2024 History of Presen t illness Narrative [...] capsule, Daily cholecalciferol (Vitamin D-3) 250 MCG (73987 UT) capsule TAKE 1 CAPSULE BY MOUTH ONCE A DAY AT THE SAME TIME. Continuous Blood Gluc Electrical Checkout Mechanic (FreeStyle Samreen 2 [place]) device USE DIRECTED Continuous Blood Gluc Sensor [...] EVERY DAY NEEDED FOR MIGRAINES nystatin (Mycostatin) 772091 UNIT/GM powder 1 application , Topical, Daily, [...] 08/2004 OTHER SURGICAL HISTORY 08/1977 pyloric stenosis [place] ARTHROSCOPY KNEE DIAGNOSTIC W/WO SYNOVIAL BX SPX [...] (BMI) of 50.0 to 59.9 in adult ([facility]) Follow up in about 6 months (around 12/02/2024). documented in this encounter [facility] 05-21-2024 Telephone encounter Note Called and spoke with Enma, who connected me with pharmacistNena. She states there are no claims billed for Imitrex during the time period in 2022 originally given for pt. Needs dates the Imitrex was filled and the pharmacy where it was filled so it can be verified that she took the medication. Filled 12/11/2017, 04/07/2018, 04/07/2020 at [facility] in [place]. Called back and spoke with Sj, who connected me with pharmacistNena. They will look into this and verify the claims and fax new determination to the office. [facility] 05-21-2024 Miscellaneous Notes Called and spoke with Enma, who connected me with pharmacistNena. She states there are no claims billed for Imitrex during the time period in 2022 originally given for pt. Needs dates the Imitrex was filled and the pharmacy where it was filled so it can be verified that she took the medication. Filled 12/11/2017, 04/07/2018, 04/07/2020 at [facility] in [place]. Called back and spoke with Sj, who connected me with Nena hannah. They will look into this and verify the claims and fax new determination to the office. documented in this encounter [facility] 05-14-2024 Telephone encounter Note [facility] Maxalt 10 mg 01/31/2024 through 05/09/2024, Imitrex 01/23/2023 through 07/26/2023. Claim will be resubmitted. [facility] 05-14-2024 Miscellaneous Notes Called and did appeal for Nurtec. Advised took Maxalt 10 mg 01/31/2024 through 05/09/2024, Imitrex 01/23/2023 through 07/26/2023. Claim will be resubmitted. Nurtec DENIED. Can do appeal by calling [phone]. documented in this encounter [facility] 05-14-2024 Telephone encounter Note Nurtec DENIED. Can do appeal by calling [phone]. [facility] 05-09-2024 Telephone encounter Note Nurtec resent. [facility] 05-09-2024 Miscellaneous Notes Nurtec resent. documented in this encounter [facility] 05-09-2024 History of Presen t illness Narrative [...] the morning. cholecalciferol (Vitamin D-3) 250 MCG (14528 UT) capsule TAKE 1 CAPSULE BY MOUTH ONCE A DAY AT THE SAME TIME. 100 capsule 3 Continuous Blood Gluc Electrical Checkout Mechanic (FreeStyle Samreen 2 [place]) device USE DIRECTED Continuous Blood Gluc Sensor [...] OR CHEW 100 tablet 3 nystatin (Mycostatin) 031090 UNIT/GM powder Apply 1 application topically Daily [...] at bedtime for sleep [DISCONTINUED] nystatin (Mycostatin) 092213 UNIT/GM powder Apply 1 application topically in [...] (CMS/HCC) Osteoarthritis Polycystic bilateral ovaries Thrombocytosis Dr. Gus Vitamin D deficiency Past Surgical History: Procedure Laterality Date COLONOSCOPY 08/2013 ENDOMETRIAL BIOPSY 07/09/2019 GASTRIC BYPASS 02/13/2017 IR INJECTION EPIDURAL STEROID Left 10/23/2023 L3-L5 KNEE SURGERY 08/2004 OTHER SURGICAL HISTORY 08/1977 pyloric stenosis [place] ARTHROSCOPY KNEE DIAGNOSTIC W/WO SYNOVIAL BX SPX [...] Medication Follow Up. documented in this encounter [facility] 05-01-2024 Telephone encounter Note OARRS reviewed, Rx sent into patient's pharmacy. [facility] 05-01-2024 Miscellaneous Notes OARRS reviewed, Rx sent into patient's pharmacy. documented in this encounter [facility] 12-29-2023 Miscellaneous Notes ----- Message from Matthew Bangura DO sent at 12/29/2023 12:05 PM EDT ----- Please let pt. Know that HIDA scan is negative and US shows gallstones w/o cholecystitis therefore I recommend EGD with biopsy. If she wants it then set her up for that. Thanks, Dr. G. Spoke with patient regarding HIDA and Ultrasound results. Patient verbally understood with no further questions. Patient stated she is scheduled for the fluoroscopy esophagus today at [facility]. Will inform Dr. Bangura. Patient is okay with proceeding with EGD. documented in this encounter [facility] 12-29-2023 Telephone encounter Note ----- Message from Matthew Bangura DO sent at 12/29/2023 12:05 PM EDT ----- Please let pt. Know that HIDA scan is negative and US shows gallstones w/o cholecystitis therefore I recommend EGD with biopsy. If she wants it then set her up for that. ThanksDr. Gilliland [facility] 12-29-2023 Telephone encounter Note Spoke with patient regarding HIDA and Ultrasound results. Patient verbally understood with no further questions. Patient stated she is scheduled for the fluoroscopy esophagus today at [facility]. Will inform Dr. Bangura. Patient is okay with proceeding with EGD. [facility] 2023 History of Presen t illness Narrative Images from the original note were not included. [facility] [address] [id number] CONSULT NOTE CHIEF COMPLAINT Chief Complaint Patient presents with Abdominal Pain Abdominal pain, possible gallstones, [facility] ER 12/03/23 Marilee Arriaga is a 47 y.o. female accompanied by her girlfriend Saloni with complaints of abdominal pain associated with nausea and emesis for which she went to the [facility] ED on 12/03 and again on 12/09/2023. She had a CT scan of the abdomen and pelvis which showed suspected cholelithiasis without evidence of acute inflammation hepatomegaly status post gastric bypass and a normal appendix. Patient states she has a history of ulcers and takes Tums few times a week but does not always help. She had a Crystal-en-Y bypass performed in 2017 at the [facility] and had a stricture which had to be dilated. She denies any fevers or chills or jaundice. She denies tobacco or alcohol use but drinks 1-2 cups of caffeine daily and sometimes occasional Coke. She takes care of her mom daily. She denies any melena hematochezia. She lost 200 lb after her Crystal-en-Y gastric bypass but has been gradually regaining weight. She admits to shortness of breath. MEDICATION Current Outpatient Medications: ABILIFY MAINTENA 400 mg suspension,extended rel syring, Inject 2 mL (400 mg total) into the appropriate muscle every 28 days., Disp: , Rfl: acarbose (PRECOSE) 25 mg tablet, Take 1 tablet (25 mg total) by mouth in the morning and 1 tablet (25 mg total) at noon and 1 tablet (25 mg total) in the evening. Take with meals., Disp: , Rfl: acetaminophen 325 mg capsule, Take 2 tablets by mouth in the morning., Disp: , Rfl: albuterol (PROVENTIL HFA;VENTOLIN HFA) 90 mcg/actuation inhaler, Inhale 1 puff every 4 (four) hours as needed., Disp: , Rfl: blood-glucose meter,continuous misc, USE DIRECTED, Disp: , Rfl: busPIRone (BUSPAR) 30 mg tablet, Take 30 mg by mouth every 12 (twelve) hours., Disp: , Rfl: CAPLYTA 42 mg capsule capsule, Take 1 capsule (42 mg total) by mouth in the morning., Disp: , Rfl: cholecalciferol (VITAMIN D3) 250 mcg (10,000 unit) capsule, Take 1 capsule (10,000 Units total) by mouth in the morning., Disp: , Rfl: hydrOXYzine (VISTARIL) 25 mg capsule, Take 1 capsule (25 mg total) by mouth in the morning and 1 capsule (25 mg total) at noon and 1 capsule (25 mg total) in the evening and 1 capsule (25 mg total) before bedtime., Disp: , Rfl: lamoTRIgine (LaMICtal) 150 mg tablet, Take 3 tablets (450 mg total) by mouth in the morning and 3 tablets (450 mg total) before bedtime., Disp: , Rfl: nystatin (MYCOSTATIN) powder, Apply 1 Application topically in the morning., Disp: , Rfl: ondansetron ODT (ZOFRAN ODT) 4 mg disintegrating tablet, Dissolve 1 tablet (4 mg total) on tongue every 8 (eight) hours as needed., Disp: , Rfl: traMADoL (ULTRAM) 50 mg tablet, Take 1 tablet (50 mg total) by mouth in the morning and at bedtime., Disp: , Rfl: traZODone (DESYREL) 100 mg tablet, Take 3 tablets (300 mg total) by mouth nightly., Disp: , Rfl: venlafaxine XR (EFFEXOR-XR) 150 mg 24 hr capsule, Take 1 capsule (150 mg total) by mouth in the morning., Disp: , Rfl: zolpidem (AMBIEN) 5 mg tablet, Take 1 tablet (5 mg total) by mouth daily as needed., Disp: , Rfl: ALLERGY Allergies Allergen Reactions Bacitracin-Polymyxin B Erythromycin Hives Grass Pollen Itching difficulty breathing Shellfish Containing Products Swelling Eye lids, swelling lips Soap Swelling lip swelling to some deodorants Ciprofloxacin Hives and Rash Clindamycin Hives and Rash Codeine Itching and Rash Erythromycin Base Rash Penicillins Hives and Rash Sulfa (Sulfonamide Antibiotics) Hives and Rash Other Reaction(s): Unknown MEDICAL HISTORY Past Medical History: Diagnosis Date Allergic Anxiety Arthritis Depression Migraine Obesity Substance abuse ([facility]) SURGICAL HISTORY Past Surgical History: Procedure Laterality Date ABDOMINAL SURGERY as an BARIATRIC SURGERY 2017 COLONOSCOPY [facility], BEFORE BARIATRIC SX IN 2017 ESOPHAGOGASTRODUODENOSCOPY 2017 [place]NEE SURGERY 4 seperate knee surgery, all on RIGHT LEG TONSILLECTOMY SOCIAL HISTORY Social History Socioeconomic History Marital status: Single Spouse name: Not on file Number of children: Not on file Years of education: Not on file Highest education level: Not on file Occupational History Not on file Tobacco Use Smoking status: Never Smokeless tobacco: Never Vaping Use Vaping status: Never Used Substance and Sexual Activity Alcohol use: Not Currently Comment: I used to drink Drug use: Never Sexual activity: Not Currently Partners: Female control/protection: None Other Topics Concern Not on file Social History Narrative Not on file Social Determinants of Health Financial Resource Strain: Not on file Food Insecurity: No Food Insecurity (2023) Hunger Screening Food Insecurity - Worry: Never True Food Insecurity - Inability: Never True Transportation Needs: Not on file Physical Activity: Not on file Stress: Not on file Social Connections: Not on file Interpersonal Safety: Not on file Housing Instability: Not on file FAMILY HISTORY Family History Problem Relation Age of Onset Arthritis Mother COPD Mother Depression Mother Hypertension Mother Depression Father Diabetes Father Hypertension Father Mental illness Father Stroke Father Vision loss Father Alcohol abuse Brother Depression Brother Heart failure Brother Cancer Maternal Aunt Throat cancer Maternal Aunt Cancer Maternal Uncle Bladder dysfunction Maternal Uncle Heart disease Maternal Grandmother REVIEW OF SYSTEMS: Constitutional: Denies fevers, denies recent illnesses. Rest review of 11 systems negative except as above. PHYSICAL EXAM Constitutional: She is oriented to person, place, and time. Vital signs are normal. She appears well-developed and well-nourished. HEENT: Head: Normocephalic and atraumatic. Eyes: Conjunctivae, EOM and lids are normal. Neck: Trachea normal. Neck supple. No thyroid mass present. Cardiovascular: Normal rate and regular rhythm. Pulmonary/Chest: Effort normal and breath sounds normal. Abdominal: Soft. Morbidly obese without guarding or rebound and negative Kinsey sign and difficult to palpate the liver or spleen due to size. Lymphadenopathy: She has no cervical adenopathy. Neurological: She is alert and oriented to person, place, and time. Skin: Skin is warm, dry and intact. Psychiatric: She has a normal mood and affect. Her speech is normal and behavior is normal. Cognition and memory are normal. IMPRESSION 1. Right upper quadrant abdominal pain with suspected cholelithiasis by CT scan 2. Status post Crystal-en-Y gastric bypass 2017 at the [facility] with history of stricture which had to be dilated with the EGD 3. Morbid obesity with BMI of 61 4. Chronic history of shortness of breath ASSESSMENT & PLAN 1. CCK HIDA scan, gallbladder ultrasound, and upper GI series to assess esophagus and stomach to make sure there has not a stricture 2. Weight loss recommended 3. If CCK HIDA scan or ultrasound positive for cholelithiasis and cholecystitis then I would recommend seeing my colleague Dr. King if comfortable removing her gallbladder with a BMI greater than 60 and if not refer to [facility]. If she needs endoscopy then we could offer her upper endoscopy at a later date with possible dilatation if needed. She and her friend understood all the above. Evaluation included: Preparing to see the patient (e.g., review of tests) Obtaining and/or reviewing separately obtained history Performing a medically appropriate examination and/or evaluation Counseling and educating the patient/family/caregiver Referring and communicating with other health wound care center consultant Right upper quadrant abdominal pain [R10.11] Matthew Bangura DO This note was created with the assistance of a speech recognition program. While intending to generate a timely document that accurately reflects the content of the visit, no guarantee can be provided that every grammatical or spelling mistake has been or will be identified or corrected. Thank you for your understanding. documented in this encounter [facility] 09-25-2023 Telephone encounter Note OARRS reviewed, Rx sent into patient's pharmacy. [facility] 09-25-2023 Miscellaneous Notes OARRS reviewed, Rx sent into patient's pharmacy. documented in this encounter [facility] 06-27-2022 Note PROCEDURE: XR FOOT L T [...] authenticated by: EM LÓPEZ Date: 2022-06-27 15:38 [facility] 06-28-2021 Note HNO ID: [id number] Author: Em Fernandez, PhD Service: ? Author [...] medical records for scanning. Em Fernandez, psychologist [facility] Evaluation note No assessment inform ation available [facility] Work Phone: Evaluation note Diagnosis Chronic [...] in adult (CMS/HCC) documented in this encounter [facility] HealthcareEvaluation [facility]* Diagnosis Thrush, oral- Primary Left-sided [...] of both knees documented in this encounter [facility] HealthcareEvaluation [facility]* Diagnosis Migraine without aura and without status migrainosus, not intractable (CMS/HCC)- Primary Insomnia due to other mental disorder Benign essential hypertension (CMS/HCC) Essential hypertension, benign Morbid obesity (CMS/HCC) Morbid obesity Neck pain Cervicalgia Episodic migraine (CMS/HCC) documented [facility]* Diagnosis Episodic migraine ([facility]/HCC) documented [facility] encounter [facility]* Diagnosis Benign essential hypertension ([facility] [place])- Primary Essential hypertension, benign Insomnia due to other mental disorder Migraine without aura and without status migrainosus, not intractable ([facility]) Obstructive sleep apnea syndrome Obstructive sleep apnea (adult) (pediatric) Morning headache Snoring Other dyspnea and respiratory abnormality Daytime somnolence Morbid obesity ([facility] [place]) Morbid obesity documented [facility]* Diagnosis Impaired fasting glucose- Primary Hypoglycemia Hypoglycemia, unspecified documented [facility]* Diagnosis Benign essential hypertension ([facility] [place]) Essential hypertension, benign documented in this encounter [...] in this encounter [facility]* Diagnosis Watery diarrhea- Primary Screening for malignant neoplasm of colon Nausea and vomiting, unspecified vomiting type Generalized abdominal pain Abdominal pain, generalized Calculus of gallbladder without cholecystitis without obstruction documented in this encounter [facility]* Diagnosis Right upper quadrant abdominal pain- Primary Morbid obesity with BMI of 60.0-69.9, adult [place] [facility] Right upper quadrant abdominal pain [facility] Diagnosis Polyneuropathy- Primary Unspecified hereditary and idiopathic peripheral neuropathy Degeneration of intervertebral disc of lumbar region with discogenic back pain and lower extremity pain Long-term use of high-risk medication Class 3 severe obesity due to excess calories with serious comorbidity and body mass index (BMI) of 50.0 to 59.9 in adult ([facility] [place]) documented in this encounter [facility] HealthcareInstructionsNot on filedocumented in this encounterProMedica Health SystemInstructionsNot on filedocumented in this encounterProMedica Health SystemInstructionsNot on filedocumented in this encounterProMedica Health SystemReason for visit Narrative* Other Medical (Routine) - Closed Specialty Diagnoses / Procedures Referred By Contac t Referred To Contact Neurology Diagnoses Low back pain, unspecified Procedures OK NERVE CONDUCTION STUDIES 9-10 STUDIES OK NEEDLE EMG EA EXTREMTY W/PARASPINL AREA COMPLETE Simona Szymanski NP [address] [place] [address] Phone: tel: fax: Arie Plascencia DO [address] [place] [address] Phone: tel: fax: Referral ID Status Reason Start Date Expiration Date V isits Requested Visits Authorized [id number] Closed Perform Procedure 07/04/2024 12/31/2024 1 1 [facility] Narrative* Consultation (Routine) - Closed Specialty Diagnoses / Procedures Referred By Contac t Referred To Contact Neurology Diagnoses Polyneuropathy, unspecified Procedures OK OFFICE/OUTPATIENT NEW LOW MDM 30 MINUTES Simona Szymanski NP [address] [place] [address] Phone: tel: fax: Ernie Child MD [address] [place] [id number] Phone: tel: fax: Referral ID Status Reason Start Date Expiration Date V isits Requested Visits Authorized [id number] Closed Consult and Treat 09/06/2024 03/05/2025 1 1 [facility] Summary Purpose Family [...] Episodic migraine (CMS/HCC) Francoise Barnes, PA [address] [facility] [address] [place] [address] Referral ID Status Reason Start Date Expiration Date Visits Re quested Visits Authorized [id number] Closed 1 1 Referral ID Status Reason Start Date Expiration Date V isits Requested Visits Authorized [id number] Pending Review 1 1 Additional Source Comments INFORMATION SOURCE (unrecogn ized section and content) DATE CREATED AUTHOR 02/14/2018 [facility] DATE CREATED AUTHOR AUTHOR'S ORGANIZ ATION 02/16/2018 [facility] DATE CREATED AUTHOR AUTHOR'S ORGANIZ ATION 10/09/2018 [facility] DATE CREATED AUTHOR AUTHOR'S ORGANIZ ATION 10/11/2021 [facility] DATE CREATED AUTHOR AUTHOR'S ORGANIZ ATION 10/28/2022 [facility] DATE CREATED AUTHOR AUTHOR'S ORGANIZ ATION 11/13/2022 [facility] DATE CREATED AUTHOR AUTHOR'S ORGANIZ ATION 01/09/2024 [facility] DATE CREATED AUTHOR AUTHOR'S ORGANIZ ATION 06/29/2024 [facility] [place] [facility] DATE CREATED AUTHOR AUTHOR'S ORGANIZ ATION 10/15/2024 [facility] DATE CREATED AUTHOR AUTHOR'S ORGANIZ ATION 10/17/2024 [facility] EPIC Goals (unrecognized section and content) Goals may be documented in a n alternate sectionGoals may be documented in an alternate sectionNot on filedocumented as of this encounterNot on filedocumented as of this encounterNot on filedocumented as of this encounterNot on filedocumented as of this encounter Care Teams (unrecognized sec tion and content) [...] September 19, 2023 End: September 19, 2023 Kidney Puller Relationship Specialty Start Date End Date Shalini Coffey MD [address] [facility] [address] [place] [address] PCP - General Family Medicine 08/05/23 Kidney Puller Relationship Specialty Start Date End Date Shalini Coffey MD [address] [facility] [address] [place] [address] PCP - General Family Medicine 08/05/23 Kidney Puller Relationship Specialty Start Date End Date Shalini Coffey MD [address] [address] [place] [address] PCP - General Family Medicine 08/05/23 Kidney Puller Relationship Specialty Start Date End Date Shalini Coffey MD [address] [facility] [address] [place] [address] PCP - General Family Medicine 08/05/23 Kidney Puller Relationship Specialty Start Date End Date Shalini Coffey MD [address] [facility] [address] [place] [address] PCP - General Family Medicine 08/05/23 Kidney Puller Relationship Specialty Start Date End Date Shalini Coffey MD [address] [facility] [address] [place] [address] PCP - General Family Medicine 08/05/23 Kidney Puller Relationship Specialty Start Date End Date Shalini Coffey MD [address] [facility] [address] [place] [address] PCP - General Family Medicine 08/05/23 Kidney Puller Relationship Specialty Start Date End Date Shalini Coffey MD [address] [place] [address] PCP - General Family Medicine 08/05/23 Kidney Puller Relationship Specialty Start Date End Date Shalini Coffey MD [address] [facility] [address] [place] [address] PCP - General Family Medicine 08/05/23 Kidney Puller Relationship Specialty Start Date End Date Shalini Coffey MD [address] [facility] [address] [place] [address] PCP - General Family Medicine 08/05/23 Kidney Puller Relationship Specialty Start Date End Date Shalini Coffey MD [address] [facility] [address] [place] [address] PCP - General Family Medicine 08/05/23 Kidney Puller Relationship Specialty Start Date End Date Shalini Coffey MD [address] [address] [place] [address] PCP - General Family Medicine 08/05/23 Kidney Puller Relationship Specialty Start Date End Date Shalini Coffey MD [address] [facility] [address] [place] [address] PCP - General Family Medicine 08/05/23 Kidney Puller Relationship Specialty Start Date End Date Shalini Coffey MD [address] [facility] [address] [place] [address] PCP - General Family Medicine 08/05/23 Kidney Puller Relationship Specialty Start Date End Date Shalini Coffey MD [address] [place] [address] PCP - General Family Medicine 08/05/23 Kidney Puller Relationship Specialty Start Date End Date Shalini Coffey MD [address] [place] [address] PCP - General Family Medicine 08/05/23 Kidney Puller Relationship Specialty Start Date End Date Doug Govea MD [address] [place] [address] PCP - General Family Medicine 03/26/18 Kidney Puller Relationship Specialty Start Date End Date Doug Govea MD [address] [place] [id number] PCP - General Family Medicine 03/26/18 Kidney Puller Relationship Specialty Start Date End Date Doug Govea MD [address] [place], [place] [id number] PCP - General [facility] Medicine 03/26/18 Kidney Puller Relationship Specialty Start Date End Date Shalini Coffey MD [address] [place] [address] PCP - General Family Medicine 08/05/23 Reason [...] Reason Onset Date Comments Med Refill 08/27/2024 Reason Comments Abdominal Pain Abdominal pain, poss ible gallstones, [facility] ER 12/03/23 FOR RECORDS PERTAINING TO PATIENTS WHO ARE [...] BE BASED ON THE PRIMARY CLINICAL RECORDS. [employer] [facility]. provides no warranty or guarantee of the accuracy or completeness of information in this document.
--- NOTE | 2024-10-23 11:29 | P.CN_ITS ---
Consult Note: HPI Data of Consult Patient: known to practice within the last 3 years Requesting Physician: Simona Szymanski NP Primary Care Provider: SHWETA BARNES Consult Narrative Reason for consult: low back pain Narrative: 48yof who presents for assessment. has continued in a series of provider directed home exercises >6 weeks, without lasting benefit. utilizes robaxin 750mg daily PRN with benefit without side effects. continues with other pain meds as needed. pt continues to have moderate to severe low back pain and BLE pain. DENEEN remains around 52%. prior emg consistent with polyneuropathy. cc:: CC: Simona Szymanski NP Review of Systems ROS Status of ROS 10 or more systems reviewed and unremark able except as noted in history and below Musculoskeletal Reports: back pain and extremity pain PFSH PFSH Medical History Surgical History S/P endometrial ablation ?Z98.890 - Other specified postprocedural states (ICD-10) S/P right knee arthroscopy ?Z98.890 - Other specified postprocedural states (ICD-10) H/O gastric bypass ?Z98.84 - Bariatric surgery status (ICD-10) S/P tonsillectomy ?Z90.89 - Acquired absence of other organs (ICD-10) Social History Smoking status: Never smoker Little interest or pleasure in doing things: not at all Feeling down, depressed, or hopeless: not at all Meds Home Medications and Allergies Home Medications ?Medication ?Instructions ?Recorded ?Confirmed ?Type acetaminophen 650 mg 650 mg PO Q12H PRN pain 02/13/23 06/24/24 History tablet,extended release (Tylenol Arthritis Pain) aripiprazole 400 mg suspension, 400 mg IM Q28D 02/13/23 06/24/24 History extended rel.intramuscular syringe (Abiliaislinn Maintena) buspirone 30 mg tablet 30 mg PO TID 02/13/23 06/24/24 History lumateperone 10.5 mg capsule 42 mg PO DAILY 02/13/23 06/24/24 History (Caplyta) tramadol 50 mg tablet 50 mg PO BID PRN pain 02/13/23 06/24/24 History trazodone 300 mg tablet 300 mg PO DAILY PRN sleep 02/13/23 06/24/24 History venlafaxine 100 mg tablet 300 mg PO DAILY 02/13/23 06/24/24 History zolpidem 5 mg tablet (Ambien) 5 mg PO BEDTIME PRN sleep 02/13/23 06/24/24 History tizanidine 4 mg tablet 4 mg PO BEDTIME 04/18/23 06/24/24 History acarbose 25 mg tablet 25 mg PO DAILY 08/01/23 06/24/24 History cholecalciferol (vitamin D3) 250 10,000 unit PO DAILY 08/01/23 06/24/24 History mcg (10,000 unit) capsule hydroxyzine pamoate 25 mg capsule 50 mg PO BID 08/01/23 06/24/24 History lamotrigine 150 mg tablet 300 mg PO DAILY 12/03/23 06/24/24 History metoprolol succinate 25 mg 25 mg PO DAILY 04/04/24 06/24/24 History tablet,extended release 24 hr escitalopram oxalate 10 mg tablet 10 mg PO DAILY 05/27/24 06/24/24 History (Lexapro) methocarbamol 750 mg tablet 750 mg PO DAILY 06/10/24 06/24/24 History Allergies Allergy/AdvReac Type Severity Reaction Status Date / Time erythromycin base (From Allergy Unknown Unknown Verified 09/18/24 23:00 E-Mycin) Penicillins Allergy Unknown Unknown Verified 09/18/24 23:00 shellfish derived Allergy Unknown Unknown Verified 09/18/24 23:00 Sulfa (Sulfonamide Allergy Unknown Unknown Verified 09/18/24 23:00 Antibiotics) codeine Allergy Unknown Verified 09/18/24 23:00 Exam Constitutional Documenting provider has reviewed patient's vital signs: yes Common normals: no apparent distress, oriented x3, healthy appearing, alert and well nourished General appearance: cooperative HENMT Common normals: normocephalic, hearing grossly normal bilaterally and moist oral mucous membranes Head and scalp: normocephalic Eye Common normals: PERRL Pupil: PERRL Neck & C-Spine Common normals: full ROM General: normal visual inspection Chest Common normals: inspection of chest normal Respiratory Common normals: normal respiratory effort, no retractions and no use of accessory muscles Back & Pelvis Thoracic spine/upper back: pain with ROM; no thoracic spinal tenderness and no paraspinal muscle tenderness Lumbar spine/lower back: pain with ROM, straight leg raise positive right and straight leg raise positive left; no lumbar spinal tenderness and no paraspinal muscle tenderness Sacroiliac joints: SI joints normal Other: decreased sensation left L4,5,S1 pattern strength 5/5 in BLE Neuro Common normals: oriented x3, CN's II-XII intact bilaterally, moves all extremities, no focal motor deficits, no sensory deficits noted and deep tendon reflexes 2+ bilaterally Sensorium/orientation: alert Motor exam: no movement abnormalities noted Psych Common normals: mental status grossly normal, thought process normal, cooperative, affect normal, speech normal and activity/motor behavior normal Speech: normal speech Thought process: normal thought process Results Additional Findings Additional findings: If on a controlled substance or opioids, I have checked an OARRS report on this patient and there are no aberrancies noted in the prescribing history.??If on a controlled substance or opioid a drug screen was completed and reviewed within the last year, and if there has not been a drug screen completed we ordered one today to monitor higher risk, state monitored pain medication use. As part of providing excellent, safe, comprehensive care, the following was completed at our patient's visit: 1. A medication reconciliation and review to ensure accurate knowledge of current/active medications, including asking our patients to inform us about any [id number] medications or herbal remedies/nutritional supplements/alternative remedies. 2. A review to specifically ensure our patients have had annual screening for screening for depression, screening for tobacco use, and screening for unhealthy alcohol use. For concerning screenings had a discussion with the patient, provided patient education, and recommended follow-up with primary care provider when appropriate. If patient noted with a risk of falling, they received education on strength, gait, and balance training to prevent future risk of falling. Assessment and Plan Assessment and Plan (1) Lumbar radiculopathy: Assessment and Plan: prior MRI reveals nonsurgical findings. (2) Polyneuropathy: (3) Sacroiliitis: (4) Lumbar degenerative disc disease: (5) Left-sided low back pain with sciatica: Qualifiers: Chronicity: chronic Sciatica laterality: sciatica of left side Gerard lified Code(s): M54.42 - Lumbago with sciatica, left side; G89.29 - Other chronic pain (6) Muscle spasm: Plan update lumbar MRI without contrast to assess lumbar radiculopathy with IV sedation due to claustrophobia and anxiety proceed with two lead [employer] spinal cord stim trial for lumbar radiculopathy and polyneuropathy with MAC sedation at [facility] with Dr Richardson continue current medications f/u after spinal cord stim trial
== END 2024-10-23 10:46 | disposition home or self-care (01) ==
LOC: PM 10:45
PROVIDERS: PCP Physician Assistant; Visit Provider Nurse Practitioner
DX: M54.16 Radiculopathy, lumbar region (principal); G62.9 Polyneuropathy, unspecified; M46.1 Sacroiliitis, not elsewhere classified; M51.369 Other intervertebral disc degeneration, lumbar region without mention of lumbar back pain or lower extremity pain; M54.42 Lumbago with sciatica, left side; G89.29 Other chronic pain; M62.838 Other muscle spasm
CPT/HCPCS: G0463

== ENCOUNTER 2025-02-03 15:39 | Outpatient (OUT) | payer MEDICAID, SELFPAY ==
[2025-02-03 16:27] LABS: Basophils Percent Auto 0.2 % (0.2-2.0); Eosinophils Absolute Auto 0.3 10^3/uL (0.0-0.7); Hematocrit 41.9 % (36.0-48.0); Hemoglobin 13.9 g/dL (12.0-16.0); Immature Granulocytes Abs Auto 0.05 10^3/uL (0.00-0.03); Immature Granulocytes Pct Auto 0.3 % (0.0-0.5); Lymphocytes Absolute Auto 3.9 10^3/uL (1.2-3.8); Lymphocytes Percent Auto 26.6 % (20.5-60.0); Mean Corpuscular HGB Conc 33.2 g/dL (29.9-35.2); Mean Corpuscular Hemoglobin 30.8 pg (26.7-34.0); Mean Corpuscular Volume 92.7 fL (81.0-99.0); Mean Platelet Volume 8.7 fL (9.5-13.5); Monocytes Absolute Auto 0.7 10^3/uL (0.3-0.8); Monocytes Percent Auto 4.6 % (1.7-12.0); Neutrophils Absolute Auto 9.8 10^3/uL (1.4-6.5); Neutrophils Percent Auto 66.3 % (43.0-75.0); Platelet Count 474 10^3/uL (150-450); Red Blood Count 4.52 10^6/uL (4.20-5.40); Red Cell Distribution Width 12.1 % (11.0-15.0); White Blood Count 14.8 10^3/uL (4.0-11.0)
[2025-02-03 16:55] LABS: Alanine Aminotransferase 18 U/L (14-59); Albumin Globulin Ratio 0.8; Albumin Level 3.2 g/dL (3.4-5.0); Alkaline Phosphatase 82 U/L (46-116); Anion Gap 13.8; Aspartate Amino Transferase 13 U/L (15-37); BUN Creatinine Ratio 14.3; Bilirubin Total 0.4 mg/dL (0.2-1.0); Calcium 9.2 mg/dL (8.5-10.1); Carbon Dioxide 27.2 mmol/L (21.0-32.0); Chloride 104 mmol/L (98-107); Estimated GFR (African America >60 (>=60 mL/min/1.73m^2); Estimated GFR (Non-African Ame >60 (>=60 mL/min/1.73m^2); Globulin 4.1 g/dL; Glucose 107 mg/dL (74-106); Sodium 141 mmol/L (136-145); Total Protein 7.3 g/dL (6.4-8.2)
[2025-02-03 17:47] LABS: Percent Iron Saturation 12.4 %
[2025-02-05 04:07] LABS: Homocyst(e)ine 10.9 umol/L (0.0-14.5)
[2025-02-05 08:12] LABS: C-Reactive Protein, Cardiac 14.75 mg/L (0.00-3.00)
[2025-02-08 12:08] LABS: Methylmalonic Acid, Serum 196 nmol/L (0-378)
== END 2025-02-03 15:40 | disposition home or self-care (01) ==
PROVIDERS: PCP Physician Assistant
DX: D72.829 Elevated white blood cell count, unspecified (principal); D75.839 Thrombocytosis, unspecified; E53.8 Deficiency of other specified B group vitamins
CPT/HCPCS: 36415; 80053; 82728; 83090; 83540; 83550; 83921; 85025; 86140